=== PATIENT | male | born 1950 | race Caucasian/White ===

== ENCOUNTER 2016-10-23 10:06 | Inpatient (IN) | payer BC, OTHER ==
[~2016-10-23] VITALS: Ht 177.8 cm; Wt 115.8 kg
[2016-10-23] VITALS (76 sets, daily range): BP systolic 77–149; BP diastolic 41–102; PULSE 82–125; TEMP 36.6–39.2; O2SAT 86–100
[~2016-10-23 10:06] MED LIST: ALBU1AER9 INH; ALLO300T2 PO; ASPI81TA28 PO; ATOR-26 PO; CEPH500C2 PO; CLOP1TAB5 PO; GLY/5 PO; INSDGIPEN SQ; INSUINJ7 SC; ISOS30TA3 PO; LCTX PO; LEVO50TA PO; LNX125 PO; LOSA1TAB PO; LSX/80 PO; METO1TAB31 PO; METO2.5T PO; SERT1TAB92 PO; ULT50X PO
[2016-10-23] MEDS ORDERED: ACETAMINOPHEN 325 MG SUPP PR ONE (10:17)
[2016-10-23] MEDS ORDERED: SODIUM CHLORIDE 0.9% 1000ML 1,000 ML IV STA ×2 (10:26→10:41)
[2016-10-23] MEDS ORDERED: SODIUM CHLORIDE 0.9% 1000ML 2,000 ML IV STA (10:26)
[2016-10-23] MEDS ORDERED: DAPTOmycin IV 500 MG in SODIUM CHLORIDE 0.9% 50ML 50 ML IV STA (10:26)
[2016-10-23] MEDS ORDERED: PIPERACILLIN/TAZOBACTAM 4.5 GM/100ML D5W IV STA (10:26)
[2016-10-23] MEDS ORDERED: CLINDAMYCIN IV 900 MG in DEXTROSE 5% ADD-VANTAGE 100ML 100 ML IV ONE (10:45)
--- NOTE | 2016-10-23 10:47 | DIAGNOSTIC IMAGING REPORT ---
CHEST ONE VIEW PORTABLE CLINICAL HISTORY: EVALUATE WEAKNESS dyspnea COMPARISON STUDY: 01/12/2016 FINDINGS: Mild stable cardiomegaly. No focal infiltrates. Mild chronic elevation right hemidiaphragm. Permanent bipolar cardiac pacemaker/defibrillator. IMPRESSION: Mild cardia megaly. Otherwise negative study Electronically signed by: Tyrone Shi M.D. 10/23/2016 10:45 AM Dictated Date/Time: 10/23/2016 10:45 AM
[2016-10-23 10:50] LABS: BASO % 0.1 %; BASO ABS # 0.01 K/uL (0-0.2); COMPLETE YES; HEMATOCRIT 35.3 % (42-52); IG% 0.9 %; LYMPH % 2.2 %; LYMPH ABS # 0.33 K/uL (1.2-3.4); MEAN CELL VOLUME 85.9 fL (80-100); MEAN CORPUSCULAR HEMOGLOBIN 30.2 pg (25-34); MEAN CORPUSCULAR HGB CONC 35.1 g/dl (32-36); MEAN PLATELET VOLUME 9.7 fL (7.4-10.4); MONO % 2.4 %; NEUT % 94.4 %; PLATELET COUNT 190 K/uL (130-400); RED BLOOD COUNT 4.11 M/uL (4.7-6.1); WHITE BLOOD COUNT 15.14 K/uL (4.8-10.8)
--- NOTE | 2016-10-23 10:50 | DIAGNOSTIC IMAGING REPORT ---
RIGHT HAND MIN 3 VIEWS ROUTINE CLINICAL HISTORY: 3rd digit infection, old amp of thumb and 2nd digit Right COMPARISON: CT dated 01/07/2016 DISCUSSION: Operative changes consistent with amputation of the bulk of the distal phalanx of the third finger. Amputation of the phalanges and distal aspects second metacarpal. Partial amputation distal phalanx of the thumb. Mild nonspecific soft tissue edema. No well-defined evidence for osteomyelitis. Potential air containment within the soft tissues adjacent to the distal phalanx right third finger. There is no evidence for soft tissue swelling. IMPRESSION: 1. Postoperative changes as noted. 2. No acute bony abnormality. 3. Soft tissue edematous change primarily about the residual phalanges of the third finger. There appears to be a moderate degree of soft tissue gas. 4. The appearance is consistent with that of a gas-forming infection and/or cellulitis of the third finger. 5. No evidence for osteomyelitis Electronically signed by: Tyrone Shi M.D. 10/23/2016 10:49 AM Dictated Date/Time: 10/23/2016 10:46 AM
[2016-10-23 10:53] LABS: ISTAT CREATININE 1.8 mg/dl (0.6-1.3); ISTAT HEMOGLOBIN 11.9 g/dl (14.0-18.0); ISTAT IONIZED CALCIUM 1.15 mmol/l (1.12-1.32)
[2016-10-23 10:58] LABS: ALT/SGPT 33 U/L (12-78); BLOOD UREA NITROGEN 54 mg/dl (7-18); BUN/CREATININE RATIO 24.5 (10-20); CALCIUM 9.6 mg/dl (8.5-10.1); CARBON DIOXIDE 28 mmol/L (21-32); CHLORIDE 96 mmol/L (98-107); GLUCOSE 153 mg/dl (70-99); MAGNESIUM 2.6 mg/dl (1.8-2.4); POTASSIUM 3.9 mmol/L (3.5-5.1); SODIUM 136 mmol/L (136-145)
[2016-10-23 11:03] LABS: PARTIAL THROMBOPLASTIN RATIO 1.2
[2016-10-23 11:14] LABS: URINE APPEARANCE CLEAR (CLEAR); URINE BILIRUBIN NEG (NEG); URINE COLOR DK YELLOW; URINE NITRITE NEG (NEG); URINE PH 5.5 (4.5-7.5); URINE SPECIFIC GRAVITY 1.019 (1.000-1.030); UROBILINOGEN NEG (NEG)
[2016-10-23 11:18] LABS: MANUAL MICROSCOPIC REQUIRED? NO; REVIEW REQ? YES
[2016-10-23 11:20] LABS: ALKALINE PHOSPHATASE 152 U/L (45-117); AST/SGOT 45 U/L (15-37); CKMB/CK RATIO 0.2 (0-3.0); THYROID STIMULATING HORMONE 0.708 uIu/ml (0.300-4.500)
[2016-10-23] MEDS ORDERED: NVLRPUC SQ (11:35)
[2016-10-23] MEDS ORDERED: LVMI SQ (11:35)
[2016-10-23] MEDS ORDERED: SODIUM CHLORIDE 0.9% 500ML 500 ML IV STA (12:40)
[2016-10-23] MEDS ORDERED: DIGOXIN IV 125 MCG in SYRINGE 9.5 ML IV SCH (13:00)
[2016-10-23] MEDS ORDERED: LNX125 PO (13:04)
[2016-10-23] MEDS ORDERED: SODIUM CHLORIDE 0.9% 1000ML 1,000 ML IV SCH (14:00)
[2016-10-23] MEDS: LACTOBACILLUS ACIDOPHILUS (FLORANEX) TAB PO SCH ×2 (14:00→21:00)
[2016-10-23] MEDS: HEPARIN SOD 5000 UNIT/0.5 ML CARP SQ SCH (14:00)
[2016-10-23] MEDS ORDERED: FENTANYL CITRATE INJ 50 MCG/1 ML 2 ML VIAL ONE (14:27)
[2016-10-23] MEDS ORDERED: MIDAZOLAM 125MG/250ML D5W 250 ML IV SCH (14:28)
[2016-10-23] MEDS ORDERED: PIPERACILL/TAZOBAC CONSULT ACTIVE PRN (14:30)
[2016-10-23] MEDS ORDERED: CLINDAMYCIN CONSULT ACTIVE PRN ×2 (14:30)
[2016-10-23] MEDS ORDERED: PHARMACY GLYCEMIC MGMT CONSULT PRN (14:30)
[2016-10-23] MEDS ORDERED: FENTANYL 1250MCG/250ML NSS 250 ML IV SCH (14:30)
--- NOTE | 2016-10-23 14:35 | HISTORY & PHYSICAL EXAMINATION ---
DATE OF ADMISSION: 10/23/2016 CHIEF COMPLAINT: Severe sepsis, right middle finger necrotic and gangrenous. HISTORY OF PRESENT ILLNESS: This 65-year-old male with past medical history significant for diabetes, nonischemic cardiomyopathy with EF of around 15-20%, status post ICD, history of CAD, history of gout, hyperlipidemia, hematuria, history of adjustment disorder, history of multiple amputations of his fingers, history of rheumatic fever, history of MRSA infection, hypertension, hypothyroidism, history of lung nodule, history of MSSA bacteremia in year 2016 with amputation of the right index finger which had I and D done a couple of times and was on long-term antibiotics, comes today because of confusion and his right middle finger is swollen, erythematous and looks necrotic and gas bubbles seen on x-ray, . The patient was in sepsis with low blood pressure and a temp spike and tachycardia and altered mental status.In the Er fluid bolus, as per sepsis protocol was given and his blood pressure improved. Temperature came down, his tachycardia improved and mental status also improved with subsequent dosing of daptomycin and clindamycin and Zosyn. ER physician talked to the Hand surgeon and is planned for OR today and we are called for admission. The patient will be admitted to ICU for further management and care. Because of his blood pressure is on the borderline, he got another 500 mL of bolus in the ER. We will continue normal saline 100 mL per hour and if blood pressure drops, will start on pressors. The patient currently alert and awake; can tell his name, can tell the name of the hospital, could not tell the date. Denies any chest pain. Denies shortness of breath. Denies headache or dizziness or nausea, denies vomiting, denies abdominal pain. Somewhat rolling in the bed, restless. could not able to reach his . The patient says he lives with his .Later came to hospital and says right middle finger seems to be infected since last few days and yesterday she noticed it turning black and decided to bring him to hospital on Monday but today morning he was confused and running temp and was brought to ER. ALLERGIES: GEMFIBROZIL. PAST MEDICAL HISTORY: As mentioned above. PAST SURGICAL HISTORY: Amputation of the third left toe amputation, amputation of the toe and metatarsal, cardiac angioplasty with LAD 90% lesion, drug-eluting stent placement. Cystoscopy for hematuria, left ventricular pacing electrode and also has left above knee amputation and amputation of multiple fingers. MEDICATIONS: Currently, the patient is on atorvastatin 80 mg p.o. daily, digoxin 125 mcg p.o. daily, , aspirin 81 mg p.o. daily, Levemir 80 units b.i.d., Lasix 80 mg p.o. b.i.d., Diabeta 5 mg p.o. daily with breakfast, Novolin R 3 units before breakfast and 3 units before supper, levothyroxine 50 mcg p.o. daily, Toprol-XL 25 mg p.o. b.i.d., losartan 25 mg p.o. daily, Zocor 100 mg p.o. daily, Imdur 50 mg p.o. daily, allopurinol 300 mg p.o. daily, Metolazone 2.5 mg p.o. weekly, ProAir 2 puffs every 4 hours p.r.n. FAMILY HISTORY: Significant for mother has diabetes. Father has heart disorder. Sister has rheumatic fever. Brother has prostate cancer. SOCIAL HISTORY: Never smoked. No alcohol use. No drug use. Currently lives with his . REVIEW OF SYMPTOMS: As per HPI. could not get rst of ROS as patient is somewhat confused. PHYSICAL EXAMINATION: GENERAL: The patient is obese, somewhat mildly restless. VITAL SIGNS: T-max is 39.6; pulse rate when he came in was 132, currently 105; blood pressure when he came in was 95/53, currently 89/53; oxygen saturation is 98% on nasal cannula. HEENT: No pallor, no icterus. NECK: No JVD, no neck masses. CARDIOVASCULAR: S1, S2 heard. Tachycardia. No murmurs, regular. RESPIRATORY SYSTEM: Normal AP diameter. No accessory muscle use. No wheezing, no crackles. ABDOMEN: Soft, bowel sounds present. No distention. Nontender. CENTRAL NERVOUS SYSTEM: Alert and awake, oriented x2. Moves extremities. Somewhat confused. Nonfocal. EXTREMITIES: Status post left above knee amputation; right middle finger is erythematous, swollen and necrotic. LABORATORIES: WBC 15, hemoglobin 12.4, hematocrit 35, platelets 190. Sodium 136, potassium 3.9, chloride 96, bicarbonate 28, BUN 54, creatinine 2.2, serum glucose 153. point of care lactic acid is 3.18 Ionized calcium 1.15, magnesium 2.6, total bilirubin 1.2, direct bilirubin 0.4, AST 45, ALT 43, alkaline phosphatase 152, total creatine kinase 464. Troponin 1 0.25, lipase 64. TSH 0.7. PT 11, INR 1, PTT 31. Urinalysis positive for mild occult blood. Influenza negative. IMAGING DATA: hand x-ray looks soft tissue edematous change primarily about the residual phalanges of the third finger.There appears moderate degree of soft tissue gas. The appearance is consistent with a gas-forming infection or cellulitis of third finger, no evidence of osteomyelitis. Chest x-ray - cardiomegaly, no acute findings. EKG: EKG shows ventricular-paced rhythm with occasional SVCs with PVCs at the rate of 132. ASSESSMENT AND PLAN: This 65-year-old male presents with severe sepsis 1. Severe sepsis from the necrotic and possible gas gangrenous, right third finger. Point of care lactic acid was 3.18. Received aggressive fluids in the ER. Needs to monitor for volume overload as patient has on last echo ejection fraction of around 15-20%. Currently, 3 peripheral lines placed, blood pressure is holding in high 80s. Will follow the serial lactic acids. Received IV Zosyn, IV daptomycin and IV clindamycin; will continue the same antibiotics. Hand surgeon notified and planned for OR today. Critical care notified. Plan for central lines, as per critical care. Will continue intravenous fluids and monitor his volume status. May need pressors. We will follow the cultures. ID consult for a.m. and close monitoring in the ICU. 2. History of nonischemic cardiomyopathy, ejection fraction around 15-20%. He has mild elevation of troponin secondary most likely to demand ischemia. Holding his blood pressure medications and Lasix because of sepsis. We will monitor for volume overload. We will also get an echocardiogram to see his latest ejection fraction. 3. Acute renal failure, baseline creatinine is around 1.3-1.4, presents with creatinine of 2.2, secondary to sepsis. Holding the Lasix and losartan. Fluids as above. We will monitor his renal function. 4. Mild elevation of troponin, most likely secondary to demand ischemia. We will follow the trend and follow echocardiogram. 5. History of coronary artery disease status post stent. Continue aspirin. Holding the statin as patient is on daptomycin and holding the blood pressure medication secondary to hypotension from sepsis. We will follow serial cardiac enzymes and echocardiogram. The patient is asymptomatic. 6. History of diabetes, the patient is currently n.p.o. We will cut back on Levemir to [address] on insulin-sliding scale and may need insulin drip. We will consult pharmacy for glycemic management. 7. History of hyperlipidemia. Holding statin as patient on daptomycin. 8. History of gout, continue allopurinol. 9. History of HTN .Holding the blood pressure medications secondary to sepsis. 10. Hypothyroidism IV Synthroid for now. 11. Deep venous thrombosis prophylaxis, sequential compression devices and heparin subQ. DISPOSITION: Close monitor in the ICU. Level 1 full code. Total critical care time around 40-45 minutes. MTDD
[2016-10-23] MEDS ORDERED: FENTANYL CITRATE INJ 50 MCG/1 ML 2 ML VIAL IV ONE (14:45)
[2016-10-23] MEDS ORDERED: RAPID SEQUENCE INDUCTION BAG ONE (14:47)
[2016-10-23] MEDS ORDERED: VECURONIUM BROMIDE 10 MG VIAL IV ONE (15:00)
[2016-10-23] MEDS ORDERED: ETOMIDATE 2 MG/ML 20 ML VIAL IV ONE (15:00)
--- NOTE | 2016-10-23 15:00 | Pharmacy Progress Note ---
Glycemic Control Intl Consult Date of Service Oct 23, 2016. Scope Glycemic Pharmacist consulted for glycemic control and to write orders per [facility] inpatient glycemic control protocol Objective Weight (Kilograms): 122.400 Accuchecks BSG (last 24hrs): Test 10/23/16 10:30 Random Glucose 153 mg/dl (70-99) Laboratory Data (last 24hrs) Test 10/23/16 10:30 10/23/16 10:38 Anion Gap 12.0 mmol/L 17.0 mmol/L BUN/Creatinine Ratio 24.5 Blood Urea Nitrogen 54 mg/dl Creatinine 2.20 mg/dl Potassium Level 3.9 mmol/L Sodium Level 136 mmol/L White Blood Count 15.14 K/uL Red Blood Count 4.11 M/uL Hemoglobin 12.4 g/dL Hematocrit 35.3 % Mean Corpuscular Volume 85.9 fL Mean Corpuscular Hemoglobin 30.2 pg Mean Corpuscular Hemoglobin Concent 35.1 g/dl Platelet Count 190 K/uL Mean Platelet Volume 9.7 fL Neutrophils (%) (Auto) 94.4 % Lymphocytes (%) (Auto) 2.2 % Monocytes (%) (Auto) 2.4 % Eosinophils (%) (Auto) 0.0 % Basophils (%) (Auto) 0.1 % Neutrophils # (Auto) 14.29 K/uL Lymphocytes # (Auto) 0.33 K/uL Monocytes # (Auto) 0.37 K/uL Eosinophils # (Auto) 0.00 K/uL Basophils # (Auto) 0.01 K/uL HbA1c Pending for 10/24/16 Recent Pertinent Medications Outpatient Anti-diabetic Regimen: * Levemir 80 units SC BID * Novolin R 3 units SC BID * Glyburide 5 mg po daily Risk Factors for Insulin Resistance: * Infection: Septic shock 2nd finger cellulitis * Recent Surgery: POD 0 - scheduled for finger amputation per RN * Diet: NPO * Mechanical Ventilation: Currently being intubated per railroad track mechanic & Plan ASSESSMENT: * ADA & AACE recommend a goal blood sugar range 140-180 mg/dl for the majority of critically ill & non-critically ill patients. However, more stringent targets may be selected in individual cases. 10/23/16 * 65 yo M with significant stressors admitted to ICU for septic shock 2nd finger cellulitis. Per RN, finger is gangrenous and patient is currently being intubated on his way to the OR for amputation. * RN unsure if patient took AM dose of Levemir * Patient's outpatient regimen is heavily weighted towards basal which is inappropriate for an inpatient, especially when he is currently NPO. However, RN unsure if patient took AM dose of Levemir today. * Will therefore order Levemir based on BSG * Will order BSG checks and Novolog q4h PLAN FOR INPATIENT GLYCEMIC CONTROL: * Holding outpatient oral diabetes medications * Basal insulin with Levemir SQ BID based on BSG 20 units for BSG < 120 mg/dL 40 units for BSG 120-199 mg/dL 50 units for BSG 200 mg/dL or greater * Correctional Insulin with NOVOLOG per scale Q4hrs while NPO * Goal Range: Low 140 mg/dL - High 180 mg/dL * Correction Factor: 10 mg/dL/unit * Nutritional / Prandial insulin per carb ratio of 1 unit per 3 grams CHO consumed * Please note that the plan above was derived based on current level of insulin resistance and hospital stress. These recommendations are appropriate for inpatient admission only. Plan of care upon discharge will need to be reassessed to avoid potential outpatient hypo/hyperglycemia. Thank you.
--- NOTE | 2016-10-23 15:26 | ORTHOPEDIC CONSULTATION ---
DATE OF CONSULTATION: 10/23/2016 Special attention to right middle finger infection. HISTORY OF PRESENT ILLNESS: This is a 65-year-old male who is well known to me from previous index finger ray amputation and partial thumb amputation on the right. He presents with increased pain and swelling, and infection in the middle finger. He presents with mental status changes and was brought emergently to [facility] via EMS. Family is not available despite several attempts to contact Them. Current vital signs; temperature 37.7, pulse 110, blood pressure 117/73. Prior blood pressure 93/58, prior temperature 38.3. I spoke with family regarding informed consent for finger amputation. Plan for surgical intervention shortly. PHYSICAL EXAMINATION: The patient is disoriented. He understands he is at the hospital but cannot tell me which hospital. He is able to answer questions, but does exhibit confusion. Right middle finger examination does show moderate to significant swelling at the middle finger. He has necrosis at the tip of the finger and gross infection seen in the middle finger with erythema. He has bullae as well over the middle finger up to the level of the PIP joint. I do not see significant - streaking erythema but the finger is clearly clinically infected at least to the level of the PIP joint. RADIOGRAPHIC: Three views of the hand do show osteomyelitis at the tip of the middle finger, previous ray amputation is noted. Soft tissue edema is seen in the middle phalanx. Soft tissue gas is noted in the finger. ASSESSMENT: 1. Right middle finger diabetic infection. 2. Sepsis. PLAN: At this point in time, patient exhibits hemodynamic instability with tachycardia, hypotension and fever. He is being emergently admitted to the ICU for hemodynamic stabilization, arterial line placement and intubation. Once he stabilized, we will take him emergently to the operating room for a finger amputation, irrigation and debridement. May need to amputate to the level of the PIP versus at the MP joint with possible definitive procedure being ray amputation may also place a VAC depending on the quality of the tissues. Plan for surgical intervention emergently.
[2016-10-23] MEDS ORDERED: DAPTOMYCIN CONSULT ACTIVE PRN ×2 (15:30)
[2016-10-23] MEDS: INSULIN ASPART 100 UNITS/ML 3 ML PEN SC SCH ×2 (16:00→20:00)
[2016-10-23] MEDS: PIPERACILL/TAZOBAC IV 4.5 GM in DEXTROSE 5% 100ML 100 ML IV SCH (16:04)
--- NOTE | 2016-10-23 16:17 | DIAGNOSTIC IMAGING REPORT ---
CHEST ONE VIEW PORTABLE CLINICAL HISTORY: intubation, central line COMPARISON STUDY: 10/23/2016 FINDINGS: Central catheter placed in the superior vena cava. Endotracheal tube 3 cm above the aga. Findings of congestive failure radiographically. Suboptimal images due to patient respiratory and somatic motion. IMPRESSION: 1. Endotracheal tube 3 cm above the aga. 2. Central catheters in the superior vena cava. 3. Components of congestive failure. 4. No evidence pneumothorax. Electronically signed by: Tyrone Shi M.D. 10/23/2016 4:16 PM Dictated Date/Time: 10/23/2016 4:13 PM
[2016-10-23] MEDS ORDERED: DEXTROSE 50% 50 ML SYR ONE (16:18)
[2016-10-23] MEDS ORDERED: BUPIVACAINE 0.5 % 5 MG/1 ML MPF 30ML VIAL ONE (16:25)
--- NOTE | 2016-10-23 16:54 | Progress Note ---
Progress Note Post Crystalloid Evaluation Date: Oct 23, 2016 Time: 16:45 Physical Exam Vital Signs: Vital Signs Date Time Temp Pulse Resp B/P Pulse Ox O2 Delivery O2 Flow Rate FiO2 10/23/16 13:40 37.7 110 21 117/63 98 Nasal Cannula 2.0 Lungs: lungs clear, normal breath sounds, no respiratory distress Heart: regular rate, rhythm, normal peripheral pulses Peripheral Pulse: Normal Skin: Unremarkable Assessment & Plan Presence of: Severe Sepsis Severe sepsis Necrotic Right middle finger received aggressive initial bolus of fluids and currently on ns@100ml/hr on iv Zosyn, clindamycin and daptomycin s/p intubation s/p central line plan for OR today lactic acid on presentation 3.18 repeat lactic acid pending close monitor in the icu
[2016-10-23] MEDS ORDERED: NURSING VERBAL MED ORDER ONE (17:15)
[2016-10-23] MEDS: VASOPRESSIN INJ 50 UNITS in SODIUM CHLORIDE 0.9% 500ML 500 ML IV SCH (17:38)
[2016-10-23] MEDS ORDERED: DAPTOmycin IV 250 MG in SODIUM CHLORIDE 0.9% 50ML 50 ML IV ONE (18:00)
[2016-10-23] MEDS ORDERED: BACITRACIN 50000 UNIT VIAL IR ONE (18:46)
--- NOTE | 2016-10-23 19:21 | EMERGENCY ROOM VISIT NOTE ---
History Report prepared by Cuongibmerry: Silvina Boggs Under the Supervision of: Dr. Kpi Gupta M.D. First contact with patient: 10:09 Stated Complaint: ALTERED MENTAL STATUS History of Present Illness The patient is a 65 year old male who presents to the Emergency Room with complaints of worsening altered mental status. He was brought to the ED via EMS. EMS reports the patient has a necrotic right second finger, and is scheduled to have the finger amputated next week. The patient became very confused this morning, so his called an ambulance. He is not able to answer all questions due to his current mental state. The patient has an extensive past medical history including diabetes, hypertension, CHF, CAD, MRSA infection, gout and diabetic neuropathy. History is limited secondary to mental status. Source of History: patient, EMS History Limited By: AMS Onset: [employer] Position: other (global) Timing: worsening Review of Systems Limited secondary to mental status. Past Medical & Surgical Medical Problems: (1) Adjustment disorder with depressed mood (2) Amputation of right index finger (3) Biventricular ICD (implantable cardioverter-defibrillator) in place (4) CAD (coronary artery disease) (5) CHF (congestive heart failure) (6) Chronic systolic CHF (congestive heart failure) (7) Diabetic retinopathy (8) DM type 2 (diabetes mellitus, type 2) (9) Dyslipidemia (10) Gout (11) H/O hematuria (12) H/O: rheumatic fever (13) History of MRSA infection (14) HTN (hypertension) (15) Hypothyroidism (16) Lung nodule (17) MSSA bacteremia (18) Neuropathy (19) Nonischemic cardiomyopathy (20) Septic shock (21) Wound dehiscence Surgical Problems: (1) H/O amputation of lesser toe (2) History of amputation of finger of left hand (3) History of implantable cardioverter-defibrillator (ICD) placement (4) Hx of BKA (5) S/P cardiac cath (6) S/P coronary artery stent placement Family History Diabetes mellitus MOTHER FH: CAD (coronary artery disease) FATHER Social History Smoking Status: Never Smoker Drug Use: none Marital Status: Housing Status: lives with family Occupation Status: disabled Current/Historical Medications Scheduled Allopurinol (Zyloprim), 300 MG PO DAILY Aspirin (Aspirin Ec), 81 MG PO DAILY Atorvastatin (Lipitor), 80 MG PO DAILY Digoxin (Digoxin), 0.125 MG PO DAILY Furosemide (Lasix), 1 TAB PO BID Glyburide (Diabeta), 5 MG PO DAILY Insulin Detemir (Levemir), 80 UNITS SQ BID Insulin Human Regular (Novolin R), 3 UNITS SQ AMPM Isosorbide Mononitrate Ext Rel (Imdur Ext Rel), 15 MG PO DAILY Lactobacillus Acidophilus (Lactinex), 1 TAB PO TID Levothyroxine Sodium (Synthroid), 50 MCG PO DAILY Losartan Potassium (Cozaar), 25 MG PO DAILY Metolazone (Zaroxolyn), 2.5 MG PO WK Metoprolol Succinate (Toprol Xl), 25 MG PO BID Sertraline HCl (Sertraline HCl), 100 MG PO DAILY Allergies Coded Allergies: Gemfibrozil (Verified Allergy, Unknown, 10/23/16) Physical Exam Vital Signs Date Time Temp Pulse Resp B/P Pulse Ox O2 Delivery O2 Flow Rate FiO2 10/23/16 12:38 105 98 10/23/16 12:33 79/53 10/23/16 12:29 77/41 10/23/16 12:21 108 98 10/23/16 12:14 98/55 10/23/16 12:06 109 98 10/23/16 12:01 109 100 10/23/16 11:59 103/63 10/23/16 11:47 97/66 10/23/16 11:46 108 98/ 99 10/23/16 11:43 38.5 10/23/16 11:41 105 100 10/23/16 11:32 98 Nasal Cannula 2.0 10/23/16 11:29 111/65 10/23/16 11:26 109 96 10/23/16 11:21 108 97 10/23/16 11:13 109/55 10/23/16 11:06 117 96 10/23/16 10:58 124/57 10/23/16 10:55 123 10/23/16 10:54 39.4 10/23/16 10:51 114 98 10/23/16 10:46 115/56 10/23/16 10:35 96 Room Air 10/23/16 10:35 96 Room Air 10/23/16 10:33 101/48 10/23/16 10:10 39.6 132 20 95/53 96 Room Air Physical Exam GENERAL: Awake, alert, uncomfortable-appearing, in no distress HENT: Normocephalic, atraumatic. Oropharynx unremarkable. EYES: Normal conjunctiva. Sclera non-icteric. NECK: Supple. No nuchal rigidity. FROM. No JVD. RESPIRATORY: Clear to auscultation. CARDIAC: Tachycardic heart rate, normal rhythm. Extremities warm and well perfused. Pulses equal. ABDOMEN: Soft, non-distended. No tenderness to palpation. No rebound or guarding. No masses. RECTAL: Deferred. MUSCULOSKELETAL: Chest examination reveals no tenderness. The back is symmetrical on inspection without obvious abnormality. There is no CVA tenderness to palpation. No joint edema. LOWER EXTREMITIES: BKA left leg. No edema. No discoloration. UPPER EXTREMITIES: Right hand has prior amputation to second digit, partial amputation to thumb. Large necrotic wound on 3rd digit, with an obvious fluid collection visible on the surface. NEURO: Normal sensorium. No sensory or motor deficits noted. SKIN: No rash or jaundice noted. Medical Decision & Procedures ER Provider Diagnostic Interpretation: These X-Rays were reviewed and interpreted by myself and the radiologist. RIGHT HAND MIN 3 VIEWS ROUTINE CLINICAL HISTORY: 3rd digit infection, old amp of thumb and 2nd digit Right COMPARISON: CT dated 01/07/2016 DISCUSSION: Operative changes consistent with amputation of the bulk of the distal phalanx of the third finger. Amputation of the phalanges and distal aspects second metacarpal. Partial amputation distal phalanx of the thumb. Mild nonspecific soft tissue edema. No well-defined evidence for osteomyelitis. Potential air containment within the soft tissues adjacent to the distal phalanx right third finger. There is no evidence for soft tissue swelling. IMPRESSION: 1. Postoperative changes as noted. 2. No acute bony abnormality. 3. Soft tissue edematous change primarily about the residual phalanges of the third finger. There appears to be a moderate degree of soft tissue gas. 4. The appearance is consistent with that of a gas-forming infection and/or cellulitis of the third finger. 5. No evidence for osteomyelitis Electronically signed by: Tyrone Shi M.D. 10/23/2016 10:49 AM CHEST ONE VIEW PORTABLE CLINICAL HISTORY: EVALUATE WEAKNESS dyspnea COMPARISON STUDY: 01/12/2016 FINDINGS: Mild stable cardiomegaly. No focal infiltrates. Mild chronic elevation right hemidiaphragm. Permanent bipolar cardiac pacemaker/defibrillator. IMPRESSION: Mild cardia megaly. Otherwise negative study Electronically signed by: Tyrone Shi M.D. 10/23/2016 10:45 AM Laboratory Results 10/23/16 10:30 Red Blood Count 4.11, Mean Corpuscular Volume 85.9, Mean Corpuscular Hemoglobin 30.2, Mean Corpuscular Hemoglobin Concent 35.1, Mean Platelet Volume 9.7, Neutrophils (%) (Auto) 94.4, Lymphocytes (%) (Auto) 2.2, Monocytes (%) (Auto) 2.4, Eosinophils (%) (Auto) 0.0, Basophils (%) (Auto) 0.1, Neutrophils # (Auto) 14.29, Lymphocytes # (Auto) 0.33, Monocytes # (Auto) 0.37, Eosinophils # (Auto) 0.00, Basophils # (Auto) 0.01 10/23/16 10:30 Test 10/23/16 10:30 10/23/16 10:34 10/23/16 10:38 10/23/16 10:40 White Blood Count 15.14 K/uL (4.8-10.8) Red Blood Count 4.11 M/uL (4.7-6.1) Hemoglobin 12.4 g/dL (14.0-18.0) Hematocrit 35.3 % (42-52) Mean Corpuscular Volume 85.9 fL (80-100) Mean Corpuscular Hemoglobin 30.2 pg (25-34) Mean Corpuscular Hemoglobin Concent 35.1 g/dl (32-36) Platelet Count 190 K/uL (130-400) Mean Platelet Volume 9.7 fL (7.4-10.4) Neutrophils (%) (Auto) 94.4 % Lymphocytes (%) (Auto) 2.2 % Monocytes (%) (Auto) 2.4 % Eosinophils (%) (Auto) 0.0 % Basophils (%) (Auto) 0.1 % Neutrophils # (Auto) 14.29 K/uL (1.4-6.5) Lymphocytes # (Auto) 0.33 K/uL (1.2-3.4) Monocytes # (Auto) 0.37 K/uL (0.11-0.59) Eosinophils # (Auto) 0.00 K/uL (0-0.5) Basophils # (Auto) 0.01 K/uL (0-0.2) RDW Standard Deviation 43.0 fL (36.4-46.3) RDW Coefficient of Variation 13.6 % (11.5-14.5) Immature Granulocyte % (Auto) 0.9 % Immature Granulocyte # (Auto) 0.14 K/uL (0.00-0.02) Prothrombin Time 11.0 SECONDS (9.0-12.0) Prothromb Time International Ratio 1.0 (0.9-1.1) Activated Partial Thromboplast Time 31.0 SECONDS (21.0-31.0) Partial Thromboplastin Ratio 1.2 Estimated GFR () 35.1 Estimated GFR (Non- 30.3 BUN/Creatinine Ratio 24.5 (10-20) Calcium Level 9.6 mg/dl (8.5-10.1) Magnesium Level 2.6 mg/dl (1.8-2.4) Total Bilirubin 1.2 mg/dl (0.2-1) Direct Bilirubin 0.4 mg/dl (0-0.2) Aspartate Amino Transf (AST/SGOT) 45 U/L (15-37) Alanine Aminotransferase (ALT/SGPT) 33 U/L (12-78) Alkaline Phosphatase 152 U/L (45-117) Total Creatine Kinase 464 U/L (39-308) Creatine Kinase MB 1.0 ng/ml (0.5-3.6) Creatine Kinase MB Ratio 0.2 (0-3.0) Troponin I 0.259 ng/ml (0-0.045) Total Protein 7.2 gm/dl (6.4-8.2) Albumin 2.7 gm/dl (3.4-5.0) Lipase 64 U/L (73-393) Thyroid Stimulating Hormone (TSH) 0.708 uIu/ml (0.300-4.500) Bedside Lactic Acid Venous 3.18 mmol/L (0.90-1.70) Bedside Hemoglobin 11.9 g/dl (14.0-18.0) Bedside Hematocrit 35 % (42-52) Bedside Sodium 134 mEq/L (135-144) Bedside Potassium 4.0 mEq/L (3.3-5.0) Bedside Chloride 93 mEq/L (101-112) Bedside Total CO2 29 mEq/l (24-31) Anion Gap 17.0 mmol/L (16-25) Bedside Blood Urea Nitrogen 52 mg/dl (7-18) Bedside Creatinine 1.8 mg/dl (0.6-1.3) Bedside Glucose (other) 158 mg/dl (70-99) Bedside Ionized Calcium (Tara) 1.15 mmol/l (1.12-1.32) Influenza Type A Antigen Neg for Influ A (NEG) Influenza Type B Antigen Neg for Influ B (NEG) Test 10/23/16 11:00 Urine Color DK YELLOW Urine Appearance CLEAR (CLEAR) Urine pH 5.5 (4.5-7.5) Urine Specific [place] 1.019 (1.000-1.030) Urine Protein 2+ (NEG) Urine Glucose (UA) 1+ (NEG) Urine Ketones NEG (NEG) Urine Occult Blood 2+ (NEG) Urine Nitrite NEG (NEG) Urine Bilirubin NEG (NEG) Urine Urobilinogen NEG (NEG) Urine Leukocyte Esterase NEG (NEG) Urine WBC (Auto) 1-5 /hpf (0-5) Urine RBC (Auto) 0-4 /hpf (0-4) Urine Hyaline Casts (Auto) 1-5 /lpf (0-5) Urine Epithelial Cells (Auto) 10-20 /lpf (0-5) Urine Bacteria (Auto) NEG (NEG) Urine Yeast (Auto) (NONE PRSENT) Laboratory results reviewed by me Medications Administered Medications (Trade) Dose Ordered Sig/Ifeanyi Route Start Time Stop Time Status Last Admin Dose Admin Acetaminophen 975 mg 975 mg STK-MED ONCE AR 10/23/16 10:17 10/23/16 10:19 DC 10/23/16 10:54 975 MG Sodium Chloride 2,000 ml @ 999 mls/hr Q2H1M STAT IV 10/23/16 10:26 10/23/16 13:21 DC 10/23/16 10:52 999 MLS/HR Sodium Chloride 1,000 ml @ 250 mls/hr Q4H STAT IV 10/23/16 10:26 10/23/16 13:21 DC 10/23/16 10:52 250 MLS/HR Daptomycin/Sodium Chloride (Cubicin IV/Nss 50ml) 60 ml @ 100 mls/hr NOW STAT IV 10/23/16 10:26 10/23/16 11:01 DC 10/23/16 10:50 100 MLS/HR Piperacillin Sod/ Tazobactam Sod 4.5 gm 4.5 gm NOW STAT IV 10/23/16 10:26 10/23/16 10:30 DC 10/23/16 11:03 4.5 GM Clindamycin Phosphate 900 mg/ Dextrose 106 ml @ 100 mls/hr ONE ONCE IV 10/23/16 10:45 10/23/16 11:48 DC 10/23/16 11:21 100 MLS/HR Sodium Chloride 1,000 ml @ 999 mls/hr Q1H1M STAT IV 10/23/16 10:41 10/23/16 13:21 DC 10/23/16 10:51 999 MLS/HR Sodium Chloride (Nss 500ml) 500 ml @ 999 mls/hr Q31M STAT IV 10/23/16 12:40 10/23/16 13:21 DC 10/23/16 12:34 999 MLS/HR ECG Indication: altered mental status Rate (beats per minute): 132 Rhythm: sinus tachycardia (sinus tachycardia with occasional paced rhythm) Findings: Q waves (Inferior), other (non-specific atrioventricular conduction delay) ED Course 1014: The patient was evaluated in room B1. A complete history and physical exam was performed. 1017: Acetaminophen 975 mg AR. 1026: Zosyn 4.5 gm IV, Daptomycin 500 mg/NSS 60 ml @ 100 mls/hr IV, NSS 1000 ml @ 250 mls/hr IV, NSS 2000 ml @ 999 mls/hr IV. 1035: Nursing informed me of the patient's i-stat lab results. His Creatinine is mildly elevated, but his electrolytes are otherwise unremarkable. His Lactate is 3.1. 1041: NSS 1000 ml @ 999 mls/hr IV. 1045: Clindamycin Phosphate 900 mg/Dextrose 106 ml @ 100 mls/hr IV. 1055: I reevaluated the patient. His mental status and blood pressure are both improved. He is currently getting fluids and antibiotics. 1129: I discussed the patients case with CECI Diop, [facility] Hospitalist. The patient will be further evaluated. 1133: I discussed the patients case with Dr. Brink, [facility]. He will try to notify Dr. Henriquez and the patient will be further evaluated. 1145: I reevaluated the patient. He is resting comfortably. 1214: CECI Diop, [facility] Hospitalist, informed me Dr. Brink was unable to get in contact with Dr. Henriquez of [facility] and he himself does not see fingers. He is recommending the patient be transferred to a tertiary care center. 1224: I discussed the patient's case with Dr. Henriquez, [facility]. He is here in the hospital and will take the patient to the OR. 1226: I informed CECI Doip, [facility], that I spoke with Dr. Henriquez and the patient will be further evaluated by Orthopedics. 1240: NSS 500 ml @ 999 mls/hr IV. 1247: I discussed the patients case with Dr. Montelongo, [facility] Critical Care. The patient will be further evaluated. 1300: I reevaluated the patient. He is appears to be more comfortable. 1335: Dr. Montelongo called me back. He is wondering if the patients family has been contacted yet and I informed him nursing has tried 3 times, with no success. 1345: I reevaluated the patient. He is more lucid and resting comfortably. Medical Decision Triage Nursing notes reviewed. The patient's presentation and history were concerning for altered mental status and possible infection. Etiologies such as sepsis, cellulitis, metabolic, infection, hypo/hyperglycemia , electrolyte abnormalities, cardiac sources, intracerebral event, toxicologic, neurologic, as well as others were entertained. The patient was evaluated. He was seen promptly on arrival. He was hypotensive and tachycardic. He was altered. He was very febrile. He was given Tylenol, IV fluids. Cultures were performed. The patient has significant elevation of his lactate. He has a leukocytosis concerning for infection as well. His troponin was positive as well as his renal function was diminished. The patient had a negative urinalysis and flu test. His LFTs were minimally elevated. He was treated with broad-spectrum antibiotics including daptomycin, Zosyn, and clindamycin due to the fact that he had gas formation in the hand wound. Chest imaging was unremarkable. The patient was treated with initially 3000 mL of normal saline bolus. He was given an additional 500 mL. His blood pressure was marginal but his mental status improved significantly. He denied any significant pain. Consultation was made with internal medicine. I also consulted with orthopedics. After discussing the case with the hospitalist and Dr. Brink of orthopedics I was able to get in touch with Dr. Catracho Henriquez of [facility] orthopedic hand surgery. He has seen the patient in the past. He recommended operative treatment for him. In order to optimize the patient for this he will need further resuscitation. Consultation was made with critical care medicine. The patient was evaluated in the Emergency Room. He was taken to the ICU for further management. The chart was completed utilizing [employer] voice recognition software. Grammatical errors, random word insertions, pronoun errors, and incomplete sentences are an occasional consequence of this system due to software limitations, ambient noise, and hardware issues. Any formal questions or concerns about the content, text, or information contained within the body of this dictation should be directly addressed to the physician for clarification. Consults Time Called: 1125 [facility] Returned Call: [phone] I discussed the patients case [facility]. The patient will be further evaluated. Additional Consults: Time Called: 1130 Consulted Physician: Dr. Brink [facility] Returned Call: [phone] Additional Comments: I discussed the patients case with Dr. Brink [facility]. He will try to notify Dr. Henriquez and the patient will be further evaluated. Time Called: 1220 Consulted Physician: Dr. Henriquez [facility] Returned Call: [phone] Additional Comments: I discussed the patient's case with Dr. Henriquez, [facility]. He is here in the hospital and will take the patient to the OR. Impression Primary Impression: Severe sepsis Additional Impression: Necrotic wound of right hand Critical Care I have personally spent greater than 75 minutes of critical care time in the direct management of this patient. This includes bedside care, interpretation of diagnostic studies, and testing, discussion with consultants, patient, and family members, and other required patient management activities. This 75 minutes is in excess of all separately billable procedures. Scribe Attestation The scribe's documentation has been prepared under my direction and personally reviewed by me in its entirety. I confirm that the note above accurately reflects all work, treatment, procedures, and medical decision making performed by me. Departure Information Dispostion Being Evaluated By Surgeon Prescriptions Digoxin (Digoxin) 0.125 Mg Tab 0.125 MG PO DAILY for 30 Days, #30 TAB 2 Refills Prov: Francois Aviles MD 10/23/16 Referrals No Doctor, Assigned (PCP) Problem Qualifiers
[2016-10-23] MEDS ORDERED: ROCURONIUM BROMIDE 10 MG/ML 5 ML VIAL ONE (19:23)
--- NOTE | 2016-10-23 19:47 | Anesthesiology Progress Note ---
Anesthesia Post Op Note Date & Time Oct 23, 2016 at 19:36 Vital Signs Pain Intensity: 0.0 Vital Signs Past 12 Hours Date Time Temp Pulse Resp B/P Pulse Ox O2 Delivery O2 Flow Rate FiO2 10/23/16 17:55 60 10/23/16 16:30 94 18 81/48 98 Mechanical Ventilator 80 10/23/16 16:00 60 10/23/16 16:00 106 18 116/61 97 Mechanical Ventilator 80 10/23/16 16:00 98 Mechanical Ventilator 80 10/23/16 15:45 103 18 96/50 97 Mechanical Ventilator 100 10/23/16 15:15 95 18 91/48 92 Mechanical Ventilator 100 10/23/16 15:05 87 22 77/41 86 10/23/16 15:00 94 11 123/102 93 Nasal Cannula 6.0 10/23/16 14:30 50 10/23/16 14:00 93 20 93 Nasal Cannula 6.0 10/23/16 13:40 37.7 110 21 117/63 98 Nasal Cannula 2.0 10/23/16 13:40 37.7 93 17 125/59 98 Nasal Cannula 6.0 10/23/16 13:23 106 97 10/23/16 13:13 93/58 10/23/16 13:10 100 Nasal Cannula 2.0 10/23/16 13:09 38.3 10/23/16 13:08 105 100 10/23/16 13:03 105 100 10/23/16 12:58 99/53 10/23/16 12:48 105 99 10/23/16 12:43 89/53 10/23/16 12:38 105 98 10/23/16 12:33 79/53 10/23/16 12:29 77/41 10/23/16 12:21 108 98 10/23/16 12:14 98/55 10/23/16 12:06 109 98 10/23/16 12:01 109 100 10/23/16 11:59 103/63 10/23/16 11:47 97/66 10/23/16 11:46 108 98/ 99 10/23/16 11:43 38.5 10/23/16 11:41 105 100 10/23/16 11:32 98 Nasal Cannula 2.0 10/23/16 11:29 111/65 10/23/16 11:26 109 96 10/23/16 11:21 108 97 10/23/16 11:13 109/55 10/23/16 11:06 117 96 10/23/16 10:58 124/57 10/23/16 10:55 123 10/23/16 10:54 39.4 10/23/16 10:51 114 98 10/23/16 10:46 115/56 10/23/16 10:35 96 Room Air 10/23/16 10:35 96 Room Air 10/23/16 10:33 101/48 10/23/16 10:10 39.6 132 20 95/53 96 Room Air Notes Mental Status: alert / awake / arousable, participated in evaluation Pt Amnestic to Procedure: Yes Nausea / Vomiting: adequately controlled Pain: adequately controlled Airway Patency, RR, SpO2: stable & adequate BP & HR: stable & adequate, see Notes Hydration State: stable & adequate Anesthetic Complications: no major complications apparent Pt developed septic shock attributed to gangrenous right 3rd finger, PMH is extensive including DM, HTN, CAD, PVD, hypothyroidism. Has had multiple amputations due to arterial disease. Prior to surgery, pt had been intubated in ICU. Was on vasopressin infusion for BP support and midazolam/fentanyl infusion for sedation. These meds were continued and pt was transported to OR and anesthetized with inhalational agent. There were no intraoperative complications. Pt was returned to ICU post op in guarded condition. Placed on ventilator as preoperatively. Report given to RN and events discussed with ICU physician who agreed to resume mgt of case.
[2016-10-23] MEDS: CLINDAMYCIN IV 600 MG in DEXTROSE 5% ADD-VANTAGE 50ML 50 ML IV SCH (20:31)
[2016-10-23 20:45] LABS: CKMB/CK RATIO 0.5 (0-3.0)
--- NOTE | 2016-10-23 20:53 | Procedure Note ---
Procedure Note Procedure Date: 10/23/2016 Procedure: Endotracheal intubation Pre-procedure Diagnosis: Operative management of gangrenous finger in the setting of septic shock Post-procedure Diagnosis: same as above Prior to Procedure: Informed Consent: verbal telephone consent was obtained from the patient's Nusrat Koroma Attending Staff: Farrukh Montelongo DO Indications: Elective intubation secondary to operative management, ability to facilitate additional procedures The identity of the patient was confirmed and a bedside time out was performed. Anesthesia: 200 g fentanyl, 26 mg etomidate Description of Procedure: The patient was prepared in the usual fashion. A laryngoscope Parada 2 was used , I was unable to visualize the epiglottis and converted to a Mac 3. At this point I was only able to obtain a grade 3 view with bimanual laryngoscopy. A 7.0 Fr endotrachial tube was placed blindly to 21 cm at the teeth. The endotracheal tube was not noted to pass through the vocal cords. Chest rise was bilateral. Bilateral breath sounds were heard without air sounds in the abdomen. Mist was noted in the endotrachial tube. End-tidal CO2 measurement was positive. Chest x-ray shows proper endotrachial tube placement. Complications: During the procedure the handle malfunctioned after initially being checked and was working properly. Findings: not applicable Specimens: not applicable Estimated blood loss: Zero
--- NOTE | 2016-10-23 20:58 | Procedure Note ---
Procedure Note Procedure Date Oct 23, 2016. Procedure Description Procedure Name: Left axillary arterial line Procedure time out: side/site verified, patient ID confirmed, correct procedure Consent obtained: verbal (consents obtained by telephone with the patient's Nusrat) Time of procedure: 16:00 Performed by: attending Indications: diagnostic Contraindications: other (peripheral vascular disease) Description: The left axilla was chosen as the amputation was on the right upper extremity. The left axilla was prepped with ChloraPrep hexedine, and draped in a sterile fashion. Sterile gown drape gloves hat mask were utilized. Dynamic ultrasound guidance demonstrated the axillary artery. Anesthesia was achieved with 2 ML's of 1% lidocaine without epinephrine. A guidewire was placed percutaneously into the left axillary artery, pulsatile blood flow was noted a 12 cm 20-gauge catheter was inserted by a modified Seldinger technique. Pulsatile blood return was noted, good waveform which correlated with noninvasive blood pressure cuff, the line was sutured into place. Patient tolerated the procedure well with 10 mL of blood loss Complications: none Patient tolerated procedure: well Post-procedure vital signs: reviewed and stable Central Line Procedure time out: side/site verified, patient ID confirmed, sterile procedure used Consent obtained: verbal (telephone consent from Nusrat) Time of procedure: 13:30 Performed by: attending Indications: poor venous access, central drug admin. Prep: chlorhexadine prep, sterile drape, sterile procedures used Anesthesia: lidocaine 1% without epi Volume anesthetic (ml's): 2 Central line lumen: triple Central line location: internal jugular (R) Additional details: percutaneous placement, ultrasound guidance, Selinger technique used, line not sutured (commercial securement I's) CXR: appropriate position, no pneumothorax Complications: none Patient tolerated procedure: well Post-procedure vital signs: reviewed and stable
[2016-10-23] MEDS: INSULIN DETEMIR FLEXPEN/FLEX TOUCH 100 UNITS/ML 3ML SC SCH (21:00)
[2016-10-23] MEDS ORDERED: SODIUM CHLORIDE 0.9% 500ML 500 ML IV ONE (21:00)
[2016-10-23] MEDS ORDERED: DAPTOmycin IV 750 MG in SODIUM CHLORIDE 0.9% 50ML 50 ML IV SCH (21:30)
--- NOTE | 2016-10-23 21:45 | Critical Care Consultation ---
Critical Care Consultation Date of Consultation: Oct 23, 2016. Attending Physician: Agustin Gaxiola M.D. Reason for Consultation: Septic shock secondary to his severe skin and soft tissue infection of the right third digit which demonstrated gas and subcutaneous tissues. History of Present Illness History obtained from prior records and emergency department physician. 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 He was brought to the emergency department by EMS for increasing altered mental status. A x-ray of the right upper extremity was obtained which demonstrated gas in the subcutaneous tissues. The patient was also found to be hypotensive and tachycardic, it was felt the patient was in septic shock secondary to this gangrenous finger. Patient was given 4.5 g of IV Zosyn, 500 mg of daptomycin, and 900 mg of clindamycin for toxin production. He was volume resuscitated and had significant improvement in his blood pressure. The hand surgeon was contacted and the patient was scheduled to go to the operating room to achieve surgical control of the infectious source. I was consult in for further medical optimization prior to the patient going to the operating room. During my evaluation the patient had a significant altered mental status and was not oriented to time place her self. A hand surgeon I were able to contact the patient's after some difficulty to achieve consents for critical ICU procedures as well as the operation. Given that the patient was difficult to redirect and would likely not comply with verbal instructions he was electively intubated in the ICU to facilitate placement of a arterial line and a central line to assist with medical optimization the patient in septic shock prior to the OR. Past Medical/Surgical History Please see the history of present illness Family History Diabetes mellitus MOTHER FH: CAD (coronary artery disease) FATHER Social History Smoking Status: Never Smoker Drug Use: none Marital Status: Housing Status: lives with family Occupation Status: disabled Allergies Coded Allergies: Gemfibrozil (Verified Allergy, Unknown, 10/23/16) Home Medications Scheduled Allopurinol (Zyloprim), 300 MG PO DAILY Aspirin (Aspirin Ec), 81 MG PO DAILY Atorvastatin (Lipitor), 80 MG PO DAILY Digoxin (Digoxin), 0.125 MG PO DAILY Furosemide (Lasix), 1 TAB PO BID Glyburide (Diabeta), 5 MG PO DAILY Insulin Detemir (Levemir), 80 UNITS SQ BID Insulin Human Regular (Novolin R), 3 UNITS SQ AMPM Isosorbide Mononitrate Ext Rel (Imdur Ext Rel), 15 MG PO DAILY Lactobacillus Acidophilus (Lactinex), 1 TAB PO TID Levothyroxine Sodium (Synthroid), 50 MCG PO DAILY Losartan Potassium (Cozaar), 25 MG PO DAILY Metolazone (Zaroxolyn), 2.5 MG PO WK Metoprolol Succinate (Toprol Xl), 25 MG PO BID Sertraline HCl (Sertraline HCl), 100 MG PO DAILY Current Inpatient Medications Current Inpatient Medications Medications (Trade) Dose Ordered Sig/Ifeanyi Route Start Time Stop Time Status Last Admin Dose Admin Allopurinol (Zyloprim Tab) 300 mg DAILY PO 10/24/16 09:00 11/23/16 08:59 Aspirin (Ecotrin Tab) 81 mg DAILY PO 10/24/16 09:00 11/23/16 08:59 Lactobacillus Acidophilus (Floranex Tab) 1 tab TID PO 10/23/16 14:00 11/22/16 13:59 Sertraline HCl 100 mg 100 mg DAILY PO 10/24/16 09:00 11/23/16 08:59 Piperacillin Sod/ Tazobactam Sod 4.5 gm/Dextrose 120 ml @ 30 mls/hr Q8H IV 10/23/16 16:00 11/02/16 15:59 10/23/16 16:04 30 MLS/HR Clindamycin Phosphate 600 mg/ Dextrose 54 ml @ 100 mls/hr Q8H IV 10/23/16 20:00 10/30/16 19:59 10/23/16 20:31 100 MLS/HR Daptomycin 750 mg/ Sodium Chloride 65 ml @ 100 mls/hr DAILY@0600 IV 10/24/16 06:00 11/02/16 05:59 Sodium Chloride 1,000 ml @ 100 mls/hr Q10H IV 10/23/16 14:00 11/22/16 13:59 10/23/16 14:08 100 MLS/HR Levothyroxine Sodium/Syringe (Synthroid Inj/ Syringe) 1.25 ml @ 2 mls/min DAILYBB IV 10/24/16 06:00 11/23/16 05:59 Insulin Detemir (Levemir Flexpen/ FlexTouch) BID SC 10/23/16 21:00 11/22/16 20:59 Insulin Aspart (novoLOG ASPART) SLIDING SCALE G... Q4 SC 10/23/16 16:00 11/22/16 15:59 Miscellaneous Information (Consult Glycemic Management Pharmacy) 1 ea UD PRN N/A 10/23/16 14:30 11/22/16 14:29 Heparin Sodium (Porcine) (Heparin Sq 5000 Unit/0.5ml) 5,000 unit Q8 SQ 10/23/16 14:00 11/22/16 13:59 Piperacillin Sod/ Tazobactam Sod (Consult) 1 ea UD PRN N/A 10/23/16 14:30 11/22/16 14:29 Clindamycin Phosphate 1 ea 1 ea UD PRN N/A 10/23/16 14:30 11/22/16 14:29 Midazolam HCl 250 ml @ 0 mls/hr Q0M IV 10/23/16 14:28 11/22/16 14:27 10/23/16 16:27 0 MLS/HR Fentanyl Citrate (Fentanyl Drip 1250MCG/250 Nss) 250 ml @ 0 mls/hr Q0M IV 10/23/16 14:30 11/06/16 14:29 10/23/16 16:27 10 MLS/HR Daptomycin 1 ea 1 ea UD PRN N/A 10/23/16 15:30 11/22/16 15:29 Vasopressin 50 units/Sodium Chloride 502.5 ml @ 24 mls/hr [id number] IV 10/23/16 17:30 11/22/16 17:29 10/23/16 17:38 24 MLS/HR Sodium Chloride (Nss 500ml) 500 ml @ 999 mls/hr Q31M ONCE IV 10/23/16 20:45 10/23/16 21:15 UNV Review of Systems Unable to obtain due to altered mental status of the patient. Physical Exam Date Time Temp Pulse Resp B/P Pulse Ox O2 Delivery O2 Flow Rate FiO2 10/23/16 19:45 36.9 81 20 100/60 97 Mechanical Ventilator 60 10/23/16 19:35 37.8 89 20 109/55 94 Mechanical Ventilator 6.0 60 10/23/16 19:25 37.8 92 20 106/56 99 Mechanical Ventilator 60 10/23/16 19:15 37.8 92 20 101/56 99 Mechanical Ventilator 6.0 60 10/23/16 17:55 60 10/23/16 16:30 94 18 81/48 98 Mechanical Ventilator 80 10/23/16 16:00 60 10/23/16 16:00 106 18 116/61 97 Mechanical Ventilator 80 10/23/16 16:00 98 Mechanical Ventilator 80 10/23/16 15:45 103 18 96/50 97 Mechanical Ventilator 100 10/23/16 15:15 95 18 91/48 92 Mechanical Ventilator 100 10/23/16 15:05 87 22 77/41 86 10/23/16 15:00 94 11 123/102 93 Nasal Cannula 6.0 10/23/16 14:30 50 10/23/16 14:00 93 20 93 Nasal Cannula 6.0 10/23/16 13:40 37.7 110 21 117/63 98 Nasal Cannula 2.0 10/23/16 13:40 37.7 93 17 125/59 98 Nasal Cannula 6.0 10/23/16 13:23 106 97 10/23/16 13:13 93/58 10/23/16 13:10 100 Nasal Cannula 2.0 10/23/16 13:09 38.3 10/23/16 13:08 105 100 10/23/16 13:03 105 100 10/23/16 12:58 99/53 10/23/16 12:48 105 99 10/23/16 12:43 89/53 10/23/16 12:38 105 98 10/23/16 12:33 79/53 10/23/16 12:29 77/41 10/23/16 12:21 108 98 10/23/16 12:14 98/55 10/23/16 12:06 109 98 10/23/16 12:01 109 100 10/23/16 11:59 103/63 10/23/16 11:47 97/66 10/23/16 11:46 108 98/ 99 10/23/16 11:43 38.5 10/23/16 11:41 105 100 10/23/16 11:32 98 Nasal Cannula 2.0 10/23/16 11:29 111/65 10/23/16 11:26 109 96 10/23/16 11:21 108 97 10/23/16 11:13 109/55 10/23/16 11:06 117 96 10/23/16 10:58 124/57 10/23/16 10:55 123 10/23/16 10:54 39.4 10/23/16 10:51 114 98 10/23/16 10:46 115/56 10/23/16 10:35 96 Room Air 10/23/16 10:35 96 Room Air 10/23/16 10:33 101/48 10/23/16 10:10 39.6 132 20 95/53 96 Room Air General Appearance: WD/WN, mild distress Head: normocephalic, atraumatic Eyes: PERRLA Neck: normal range of motion, no tenderness, trachea midline, no stridor Respiratory: rhonchi (mild and scattered) Cardiovasular: normal S1S2, irregular rate (tachycardia), systolic murmur Abdomen: non tender, normal bowel sounds, no rebound, no masses, no guarding, no organomegaly Genitourinary - Male: external genitalia normal ([place] present) Back: normal inspection, no midline tenderness, no CVA tenderness Upper Extremities: deformity (multiple amputations, right upper extremity exhibited gangrenous third digit) Lower Extremities: deformity (multiple amputations bilaterally) Pulses: brachial (R) (1+), brachial (L) (1+), femoral (R) (1+), femoral (L) (1+ ) Neuro: alert, normal motor exam, disoriented Psychiatric: other (appeared to be delirious) Laboratory Results Last 24 Hours Test 10/23/16 10:30 10/23/16 10:34 10/23/16 10:38 10/23/16 10:40 White Blood Count 15.14 K/uL Red Blood Count 4.11 M/uL Hemoglobin 12.4 g/dL Hematocrit 35.3 % Mean Corpuscular Volume 85.9 fL Mean Corpuscular Hemoglobin 30.2 pg Mean Corpuscular Hemoglobin Concent 35.1 g/dl Platelet Count 190 K/uL Mean Platelet Volume 9.7 fL Neutrophils (%) (Auto) 94.4 % Lymphocytes (%) (Auto) 2.2 % Monocytes (%) (Auto) 2.4 % Eosinophils (%) (Auto) 0.0 % Basophils (%) (Auto) 0.1 % Neutrophils # (Auto) 14.29 K/uL Lymphocytes # (Auto) 0.33 K/uL Monocytes # (Auto) 0.37 K/uL Eosinophils # (Auto) 0.00 K/uL Basophils # (Auto) 0.01 K/uL RDW Standard Deviation 43.0 fL RDW Coefficient of Variation 13.6 % Immature Granulocyte % (Auto) 0.9 % Immature Granulocyte # (Auto) 0.14 K/uL Prothrombin Time 11.0 SECONDS Prothromb Time International Ratio 1.0 Activated Partial Thromboplast Time 31.0 SECONDS Partial Thromboplastin Ratio 1.2 Sodium Level 136 mmol/L Potassium Level 3.9 mmol/L Chloride Level 96 mmol/L Carbon Dioxide Level 28 mmol/L Anion Gap 12.0 mmol/L 17.0 mmol/L Blood Urea Nitrogen 54 mg/dl Creatinine 2.20 mg/dl Estimated GFR () 35.1 Estimated GFR (Non- 30.3 BUN/Creatinine Ratio 24.5 Random Glucose 153 mg/dl Calcium Level 9.6 mg/dl Magnesium Level 2.6 mg/dl Total Bilirubin 1.2 mg/dl Direct Bilirubin 0.4 mg/dl Aspartate Amino Transf (AST/SGOT) 45 U/L Alanine Aminotransferase (ALT/SGPT) 33 U/L Alkaline Phosphatase 152 U/L Total Creatine Kinase 464 U/L Creatine Kinase MB 1.0 ng/ml Creatine Kinase MB Ratio 0.2 Troponin I 0.259 ng/ml Total Protein 7.2 gm/dl Albumin 2.7 gm/dl Lipase 64 U/L Thyroid Stimulating Hormone (TSH) 0.708 uIu/ml Bedside Lactic Acid Venous 3.18 mmol/L Bedside Hemoglobin 11.9 g/dl Bedside Hematocrit 35 % Bedside Sodium 134 mEq/L Bedside Potassium 4.0 mEq/L Bedside Chloride 93 mEq/L Bedside Total CO2 29 mEq/l Bedside Blood Urea Nitrogen 52 mg/dl Bedside Creatinine 1.8 mg/dl Bedside Glucose (other) 158 mg/dl Bedside Ionized Calcium (Tara) 1.15 mmol/l Influenza Type A Antigen Neg for Influ A Influenza Type B Antigen Neg for Influ B Test 10/23/16 11:00 10/23/16 13:26 10/23/16 16:15 10/23/16 16:17 Urine Color DK YELLOW Urine Appearance CLEAR Urine pH 5.5 Urine Specific Pearson 1.019 Urine Protein 2+ Urine Glucose (UA) 1+ Urine Ketones NEG Urine Occult Blood 2+ Urine Nitrite NEG Urine Bilirubin NEG Urine Urobilinogen NEG Urine Leukocyte Esterase NEG Urine WBC (Auto) 1-5 /hpf Urine RBC (Auto) 0-4 /hpf Urine Hyaline Casts (Auto) 1-5 /lpf Urine Epithelial Cells (Auto) 10-20 /lpf Urine Bacteria (Auto) NEG Urine Yeast (Auto) Random Cortisol 53.92 mcg/dl Lactic Acid Level 1.0 mmol/L Bedside Glucose 56 mg/dl Test 10/23/16 16:47 10/23/16 17:55 10/23/16 20:12 10/23/16 20:27 Bedside Glucose 123 mg/dl Procalcitonin 8.86 ng/mL Lactic Acid Level 0.9 mmol/L Total Creatine Kinase 386 U/L Creatine Kinase MB 2.0 ng/ml Creatine Kinase MB Ratio 0.5 Troponin I 0.249 ng/ml Bedside Glucose (other) 81 mg/dl Diagnostic Results I have reviewed the radiology report and independently reviewed the images for the hand x-ray on 10/23/2016, I have independently reviewed the images and radiology report for the chest x-ray dated 10/23/2016 at 1613 Assessment & Plan (1) Severe sepsis (2) Septic shock (3) Acute encephalopathy (4) Elevated troponin I measurement (5) Abnormal EKG (6) Lactic acidemia (7) PATRICIA (acute kidney injury) (8) Necrotic wound of right hand (9) CHF (congestive heart failure) (10) DM type 2 (diabetes mellitus, type 2) (11) Hypothyroidism (12) Biventricular ICD (implantable cardioverter-defibrillator) in place (13) Nonischemic cardiomyopathy (14) CAD (coronary artery disease) (15) History of MRSA infection (16) MSSA bacteremia (17) Amputation of right index finger Neuro: Acute encephalopathy Suspect this is multifactorial, leading cause most likely infection Fentanyl infusion for sedation Versed infusion for sedation Spontaneous awakening trial in the morning Cardiovascular: Hypotension Secondary to severe sepsis Left of balance volume resuscitation with poor EF Had been tolerating vasopressin 0.4 mg/kg Nonischemic cardiomyopathy Hold digoxin while in PATRICIA Elevated troponins, continue to trend Echocardiogram in a.m. Respiratory Patient remains intubated following surgery Will continue at this time until more hemodynamically stable and hopefully off pressors Spontaneous breathing trial and morning Gastroenterology: - OG tube in place -Protonix for prophylaxis /Electrolytes Acute kidney injury, nonoliguric acute renal failure Lactic acidemia Half NSS with 20 and acute K at 75 per hour In review of prior labs patient has not had an episode of hyperkalemia including the setting of having an elevated creatinine Holding allopurinol while in PATRICIA Infectious Disease: Septic shock Blood cultures pending Urine culture pending Abscess culture pending Clindamycin 600 mg every 8 hours per protocol Daptomycin 4 mg/kg IV daily Zosyn 4.5 g IV every 8 hours Infectious disease consultation Elevated procalcitonin Heme/Onc: Mild anemia Heparin for prophylaxis Endocrine: Hypothyroidism 25 g IV levothyroxine daily Lines: 10/23/2016 left axillary arterial line 10/23/2016 right internal jugular central venous catheter I have personally spent 90 minutes of critical care time in the direct management of this patient. This is a life/limb threatening event. This includes time spent evaluating patient, direct bedside care, chart review, placing orders, interpretation of diagnostic studies, discussion with consultants, patient, and family members, as well as other required patient management activities. This time is exclusive of all separately billable procedures, and teaching time and separate from and in addition to any other critical care service time.
[2016-10-23 22:21] LABS: ISTAT ARTERIAL BLOOD GAS HCO3 29 meq/L (19-24); ISTAT ARTERIAL BLOOD GAS PCO2 45 mmHg (35-46); ISTAT ARTERIAL BLOOD GAS PO2 188 mmHg (80-95); ISTAT ARTERIAL BLOOD GAS pH 7.42 (7.35-7.45); ISTAT CARBON DIOXIDE 30 mEq/l (24-31); ISTAT DELIVERY SYSTEM Ventilator; ISTAT FIO2 60 %; ISTAT PEEP 5; ISTAT RATE 20; ISTAT SITE Art Line; VE 16.7; Vt 550
[2016-10-23 22:46] LABS: HEMATOCRIT 32.3 % (42-52); MEAN CORPUSCULAR HEMOGLOBIN 30.2 pg (25-34); MEAN CORPUSCULAR HGB CONC 34.4 g/dl (32-36); MEAN PLATELET VOLUME 9.3 fL (7.4-10.4); PLATELET COUNT 153 K/uL (130-400); RED BLOOD COUNT 3.67 M/uL (4.7-6.1); WHITE BLOOD COUNT 12.34 K/uL (4.8-10.8)
[2016-10-23 23:02] LABS: BUN/CREATININE RATIO 28.3 (10-20); CALCIUM 8.2 mg/dl (8.5-10.1); MAGNESIUM 2.6 mg/dl (1.8-2.4); POTASSIUM 4.2 mmol/L (3.5-5.1)
[2016-10-23 23:07] LABS: PHOSPHORUS 4.1 mg/dl (2.5-4.9)
[2016-10-24] VITALS (88 sets, daily range): BP systolic 82–144; BP diastolic 45–68; PULSE 81–125; TEMP 37.5–39.6; O2SAT 88–99; Ht 177.8 cm; Wt 115.8 kg
[2016-10-24] MEDS ORDERED: NURSING VERBAL MED ORDER ONE ×2 (00:30→18:45)
[2016-10-24] MEDS: PIPERACILL/TAZOBAC IV 4.5 GM in DEXTROSE 5% 100ML 100 ML IV SCH ×4 (00:31→23:52)
[2016-10-24] MEDS: SODIUM CHLOR 0.45% + 20MEQ KCL 1,000 ML IV SCH ×2 (00:33→11:22)
[2016-10-24] MEDS: ACETAMINOPHEN IV 650 MG / 65ML IV PRN (00:47)
[2016-10-24] MEDS: HEPARIN SOD 5000 UNIT/0.5 ML CARP SQ SCH ×4 (00:48→22:04)
--- NOTE | 2016-10-24 00:51 | OPERATIVE REPORT ---
DATE OF OPERATION: 10/23/2016 PREOPERATIVE DIAGNOSES: 1. Right hand middle finger gangrene. 2. Right hand infection. PROCEDURES: 1. Right middle finger amputation at MCP joint level. 2. Right hand I\T\D. ANESTHESIA: General. SURGEON: Dr. Henriquez. ASIAN STUDIES PROFESSOR: None. INDICATIONS: This is a gentleman well known to my practice. He has progressive diabetic infection of the tip of the finger. He presents in acute septic shock. He presents for emergent amputation of the finger with I\T\D, other work as indicated. The risks and benefits have been discussed including, but not limited to, risk of infection, nerve injury, stiffness, loss of motion, failure to improve, etc. The patient is agreeable and wishes to proceed. DESCRIPTION OF PROCEDURE: The patient had bogginess of the finger infection extending down to the level of the middle aspect of the middle phalanx. I felt it be best to proceed with amputation at the MP level. I elected not to proceed with ray amputation given his instability. I felt for surgical procedure would be better. I performed an elliptical fish mouth incision over the MP joint. Dissection was carried down through the skin and subcutaneous tissue. I applied an Esmarch tourniquet as the patient had an IV in the forearm. This was done prior to skin incision. The extensor tendon was sharply incised and I disarticulated the finger at the MP joint level. The flexor tendon was sharply incised and allowed to retract proximally. There was a small amount of serous fluid in the area, but no gross pus. There was gross pus and necrosis of the tip of the finger and cultures were taken of the fingertip. Tourniquet was let down. There was adequate bleeding in the area but the interosseous muscle did show some decreased contractility and fibrosis. I copiously irrigated the area with 1 liter of normal saline. Debridement of the area of skin, subcutaneous tissue and fascia was performed. I then performed a loose closure with 4-0 nylon and placed a packing in the distal aspect of the incision. Prior to closure, the traction neurectomies were performed and digital nerves were cauterized. Care was taken to preserve the digital neurovascular bundle to the adjacent finger. The patient was placed in a soft dressing and sent to the PACU in stable condition. Postoperative plan will be to remove the packing in 24-48 hours and recheck the wound and continue care as per the rn oncology. I attest to the content of the Intraoperative Record and any orders documented therein. Any exceptio ns are noted below.
[2016-10-24] MEDS: INSULIN ASPART 100 UNITS/ML 3 ML PEN SC SCH ×6 (04:00→19:57)
[2016-10-24] MEDS: CLINDAMYCIN IV 600 MG in DEXTROSE 5% ADD-VANTAGE 50ML 50 ML IV SCH ×3 (04:14→20:00)
[2016-10-24 04:50] LABS: HEMATOCRIT 29.1 % (42-52); MEAN CELL VOLUME 85.3 fL (80-100); MEAN CORPUSCULAR HEMOGLOBIN 29.9 pg (25-34); MEAN CORPUSCULAR HGB CONC 35.1 g/dl (32-36); MEAN PLATELET VOLUME 9.1 fL (7.4-10.4); PLATELET COUNT 140 K/uL (130-400); RED BLOOD COUNT 3.41 M/uL (4.7-6.1); WHITE BLOOD COUNT 11.41 K/uL (4.8-10.8)
[2016-10-24 05:09] LABS: BUN/CREATININE RATIO 25.7 (10-20); CREATININE 2.1 mg/dl (0.60-1.40); MAGNESIUM 2.5 mg/dl (1.8-2.4); POTASSIUM 4.3 mmol/L (3.5-5.1)
[2016-10-24 05:19] LABS: BASO % 0.1 %; BASO ABS # 0.01 K/uL (0-0.2); COMPLETE YES; EOS % 0.4 %; IG% 0.5 %; LYMPH % 8.2 %; LYMPH ABS # 0.94 K/uL (1.2-3.4); MONO % 8.2 %; NEUT % 82.6 %
[2016-10-24 05:21] LABS: CKMB/CK RATIO 0.5 (0-3.0)
[2016-10-24] MEDS ORDERED: LEVOTHYROXINE SODIUM INJ 25 MCG in SYRINGE 0 ML IV SCH (06:00)
[2016-10-24] MEDS: DAPTOmycin IV 750 MG in SODIUM CHLORIDE 0.9% 50ML 50 ML IV SCH (06:19)
--- NOTE | 2016-10-24 07:10 | DIAGNOSTIC IMAGING REPORT ---
CHEST ONE VIEW PORTABLE CLINICAL HISTORY: Respiratory failure COMPARISON STUDY: 10/23/2016 FINDINGS: The cardiac and mid sternal contours remain stable. There is a left subclavian pacer/defibrillator present. There is a right internal jugular central venous catheter present. There is an endotracheal tube 4 cm above the aga. There is a nasogastric tube with its tip projected over the gastric cardia. There is no focal pulmonary consolidation. There is mild central vascular prominence.[ IMPRESSION: Mild central vascular prominence. No evidence of lobar consolidation. Endotracheal tube 4 cm above the aga. Electronically signed by: Nasir Butts M.D. 10/24/2016 7:09 AM Dictated Date/Time: 10/24/2016 7:07 AM
[2016-10-24 08:16] LABS: ESTIMATED AVERAGE GLUCOSE 229 mg/dl; HA1C FLAG Normal (Normal)
[2016-10-24] MEDS ORDERED: ALLOPURINOL 300 MG TAB PO SCH (09:00)
--- NOTE | 2016-10-24 09:27 | Medical Consult ---
Consultation Date of Consultation: Oct 24, 2016. Attending Physician: Agustin Gaxiola M.D. Reason for Consultation: Gangrenous right middle finger History of Present Illness 65-year-old male with significant medical comorbidities including diabetes mellitus, severe congestive heart failure with ejection fraction 10-15 percent, previous amputations of fingers and toes, presented to the hospital with gangrenous infection of his right 3rd finger. Patient was found to be in septic shock, with x-rays, read by me, showing gas in the soft tissue surrounding the finger. Patient was intubated, now on BiPAP. He has undergone surgical amputation of the finger. Cultures from the finger growing Staph aureus, blood cultures are positive for Gram-positive cocci, likely also Staph. Patient has history of prior MRSA infection. Has remained afebrile since admission, follow-up blood cultures are pending. Currently being treated with combination of daptomycin, Zosyn, and clindamycin. Past Medical/Surgical History Medical Problems: (1) Cellulitis of right hand Status: Acute (2) Diabetes Status: Acute (3) Infection of finger Status: Acute (4) Necrotic wound of right hand Status: Acute (5) Septic shock Status: Acute (6) Severe sepsis Status: Acute Medical Problems: (1) Abnormal EKG (2) Acute encephalopathy (3) Adjustment disorder with depressed mood (4) PATRICIA (acute kidney injury) (5) Amputation of right index finger (6) Bacteremia due to Gram-positive bacteria (7) Biventricular ICD (implantable cardioverter-defibrillator) in place (8) CAD (coronary artery disease) (9) CHF (congestive heart failure) (10) Chronic systolic CHF (congestive heart failure) (11) Diabetic retinopathy (12) DM type 2 (diabetes mellitus, type 2) (13) Dyslipidemia (14) Elevated troponin I measurement (15) Gout (16) H/O hematuria (17) H/O: rheumatic fever (18) History of MRSA infection (19) HTN (hypertension) (20) Hypothyroidism (21) Lactic acidemia (22) Lung nodule (23) MSSA bacteremia (24) Neuropathy (25) Nonischemic cardiomyopathy (26) Wound dehiscence Surgical Problems: (1) H/O amputation of lesser toe (2) History of amputation of finger of left hand (3) History of implantable cardioverter-defibrillator (ICD) placement (4) Hx of BKA (5) S/P cardiac cath (6) S/P coronary artery stent placement Family History Diabetes mellitus MOTHER FH: CAD (coronary artery disease) FATHER Social History Smoking Status: Never Smoker Drug Use: none Marital Status: Housing Status: lives with family Occupation Status: disabled Allergies Coded Allergies: Gemfibrozil (Verified Allergy, Unknown, 10/23/16) Current Inpatient Medications Current Inpatient Medications Medications (Trade) Dose Ordered Sig/Ifeanyi Route Start Time Stop Time Status Last Admin Dose Admin Aspirin (Ecotrin Tab) 81 mg DAILY PO 10/24/16 09:00 11/23/16 08:59 Lactobacillus Acidophilus (Floranex Tab) 1 tab TID PO 10/23/16 14:00 11/22/16 13:59 Sertraline HCl 100 mg 100 mg DAILY PO 10/24/16 09:00 11/23/16 08:59 Piperacillin Sod/ Tazobactam Sod 4.5 gm/Dextrose 120 ml @ 30 mls/hr Q8H IV 10/23/16 16:00 11/02/16 15:59 10/24/16 00:31 30 MLS/HR Clindamycin Phosphate 600 mg/ Dextrose 54 ml @ 100 mls/hr Q8H IV 10/23/16 20:00 10/30/16 19:59 10/24/16 04:14 100 MLS/HR Daptomycin/Sodium Chloride (Cubicin IV/Nss 50ml) 65 ml @ 100 mls/hr DAILY@0600 IV 10/24/16 06:00 11/02/16 05:59 10/24/16 06:19 100 MLS/HR Insulin Detemir (Levemir Flexpen/ FlexTouch) BID SC 10/23/16 21:00 11/22/16 20:59 Insulin Aspart (novoLOG ASPART) SLIDING SCALE G... Q4 SC 10/23/16 16:00 11/22/16 15:59 Miscellaneous Information (Consult Glycemic Management Pharmacy) 1 ea UD PRN N/A 10/23/16 14:30 11/22/16 14:29 Heparin Sodium (Porcine) (Heparin Sq 5000 Unit/0.5ml) 5,000 unit Q8 SQ 10/23/16 14:00 11/22/16 13:59 10/24/16 06:20 5,000 UNIT Piperacillin Sod/ Tazobactam Sod (Consult) 1 ea UD PRN N/A 10/23/16 14:30 11/22/16 14:29 Clindamycin Phosphate 1 ea 1 ea UD PRN N/A 10/23/16 14:30 11/22/16 14:29 Midazolam HCl 250 ml @ 0 mls/hr Q0M IV 10/23/16 14:28 11/22/16 14:27 10/23/16 16:27 0 MLS/HR Fentanyl Citrate (Fentanyl Drip 1250MCG/250 Nss) 250 ml @ 0 mls/hr Q0M IV 10/23/16 14:30 11/06/16 14:29 10/23/16 16:27 10 MLS/HR Daptomycin 1 ea 1 ea UD PRN N/A 10/23/16 15:30 11/22/16 15:29 Vasopressin 50 units/Sodium Chloride 502.5 ml @ 24 mls/hr [id number] IV 10/23/16 17:30 11/22/16 17:29 10/23/16 17:38 24 MLS/HR Potassium Chloride/Sodium Chloride 1,000 ml @ 75 mls/hr [id number] IV 10/23/16 22:15 11/22/16 22:14 10/24/16 00:33 75 MLS/HR Acetaminophen 650 mg/Empty Bag 65 ml @ 260 mls/hr Q6H PRN IV 10/24/16 00:45 11/23/16 00:44 10/24/16 00:47 260 MLS/HR Famotidine/ Dextrose (Pepcid IV Inj/ D5 100ml) 102 ml @ 204 mls/hr Q12H IV 10/24/16 09:00 11/23/16 08:59 Review of Systems Not obtainable as patient intubated Physical Exam Date Time Temp Pulse Resp B/P Pulse Ox O2 Delivery O2 Flow Rate FiO2 10/24/16 07:08 38.8 99 19 100/56 93 10/24/16 07:03 38.8 99 18 95/56 10/24/16 06:58 38.8 99 19 101/60 10/24/16 06:53 38.8 98 20 101/57 10/24/16 06:48 38.9 100 19 104/59 2/20/ 06:43 38.9 98 16 118/68 88 10/24/16 06:38 38.9 98 20 109/60 98 10/24/16 06:33 38.9 92 20 104/59 96 10/24/ 06:28 39.0 97 19 106/61 10/24/ 06:23 39.0 95 19 104/60 99 10/24/16 06:18 39.0 93 19 102/59 94 10/24/16 06:15 39.0 102 19 95 10/24/ 06:13 39.0 102 19 110/59 10/24/ 06:08 39.0 101 19 100/59 10/24/ 06:03 39.1 101 19 105/56 10/24/16 06:00 39.1 102 20 95 10/24/ 05:53 39.1 106 10 82/47 90 10/24/16 05:48 39.1 101 24 112/50 95 10/24/16 05:45 30 10/24/16 05:43 39.1 103 20 98/56 95 10/24/16 05:38 39.1 103 20 100/55 95 10/24/ 05:33 39.1 104 20 99/58 94 10/24/16 05:28 39.1 103 21 99/54 95 10/24/16 05:23 39.2 105 20 102/53 95 10/24/ 05:18 39.2 107 21 100/59 93 10/24/ 05:13 39.2 104 21 101/50 95 10/24/ 05:08 39.2 103 21 99/53 95 10/24/ 05:03 39.2 104 22 101/56 94 10/24/ 04:58 39.2 102 22 100/58 94 20/ 04:53 39.2 104 23 86/56 94 10/24/ 04:48 39.3 105 23 96/59 95 10/24/ 04:43 39.3 105 22 103/58 95 10/24/ 04:38 39.3 105 22 100/58 95 10/24/ 04:33 39.3 106 23 98/59 94 10/24/16 04:30 39.3 109 22 96 2/ 04:23 39.3 107 21 105/63 95 10/24/16 04:18 39.3 107 23 108/60 94 10/24/16 04:13 39.4 108 22 104/61 94 10/24/16 04:08 39.4 109 23 107/57 93 10/24/16 04:03 39.4 107 22 103/58 94 10/24/16 04:00 94 Mechanical Ventilator 30 10/24/16 04:00 60 10/24/16 03:58 39.4 108 21 108/59 94 10/24/16 03:53 39.4 110 22 100/59 93 10/24/16 03:48 39.4 109 23 96/58 94 10/24/16 03:43 39.4 107 23 98/58 10/24/16 03:38 39.4 110 24 103/58 10/24/16 03:33 39.4 109 23 100/58 94 10/24/16 03:28 39.4 103 24 105/56 93 10/24/16 03:23 39.4 112 23 102/61 92 10/24/16 03:18 39.4 109 23 102/56 94 10/24/16 03:18 39.4 109 23 102/56 94 10/24/16 03:13 39.4 110 24 100/56 94 10/24/16 03:13 39.4 110 24 100/56 94 10/24/16 03:08 39.5 111 24 105/56 93 10/24/16 03:08 39.5 111 24 105/56 93 10/24/16 03:03 39.5 111 24 105/57 10/24/16 03:03 39.5 111 24 105/57 10/24/16 03:00 39.5 112 23 94 10/24/16 02:32 30 10/24/16 02:08 39.5 115 24 102/60 94 10/24/16 02:03 39.5 114 26 103/53 94 10/24/16 01:58 39.6 114 24 108/55 94 10/24/16 01:53 39.5 115 24 104/52 94 10/24/16 01:48 39.6 114 23 101/49 94 10/24/16 01:43 39.6 116 24 106/50 93 10/24/16 01:38 39.6 116 23 104/54 94 10/24/16 01:33 39.6 115 24 102/53 93 10/24/16 01:28 39.6 113 22 99/47 93 10/24/16 01:23 39.6 114 25 109/45 93 10/24/16 01:18 39.6 113 23 98/50 94 10/24/16 01:13 39.6 112 20 90/47 94 10/24/16 01:08 39.6 113 21 101/54 92 10/24/16 01:03 39.6 118 21 95/50 10/24/16 00:53 39.6 119 25 101/56 91 10/24/16 00:48 39.6 120 24 105/52 91 10/24/16 00:43 39.5 119 25 113/52 91 10/24/16 00:38 39.5 114 27 98/57 91 10/24/16 00:33 39.5 125 27 115/59 91 10/24/16 00:28 39.4 125 27 101/56 91 10/24/16 00:23 39.4 124 26 108/59 92 10/24/16 00:18 39.4 125 27 111/57 92 10/24/16 00:13 39.3 125 27 128/52 92 10/24/16 00:08 39.3 124 25 114/61 93 10/24/16 00:05 94 Mechanical Ventilator 30 10/24/16 00:05 60 10/24/16 00:03 39.2 123 26 106/55 92 10/24/16 00:00 39.2 124 27 93 10/23/16 23:58 39.2 125 26 130/49 92 10/23/16 23:53 39.1 112 25 109/59 93 10/23/16 23:48 39.1 117 25 114/57 93 10/23/16 23:43 39.1 120 24 111/52 93 10/23/16 23:38 39.1 120 24 126/59 93 10/23/16 23:33 39.0 120 25 110/52 93 10/23/16 23:29 39.0 114 15 98/52 91 10/23/16 23:20 30 10/23/16 23:13 114 24 107/56 92 10/23/16 23:08 114 25 103/55 92 10/23/16 23:03 110 23 103/56 92 10/23/16 22:58 113 23 117/56 92 10/23/16 22:58 113 23 117/56 92 10/23/16 22:53 115 22 114/57 92 10/23/16 22:53 115 22 114/57 92 10/23/16 22:48 112 22 102/64 92 10/23/16 22:48 112 22 102/64 92 10/23/16 22:43 115 22 112/59 92 10/23/16 22:43 115 22 112/59 92 10/23/16 22:38 114 23 123/67 92 10/23/16 22:38 114 23 123/67 92 10/23/16 22:33 113 23 107/61 10/23/16 22:33 113 23 107/61 10/23/16 22:28 116 22 140/65 92 10/23/16 22:28 37.5 116 22 140/65 92 10/23/16 22:23 107 23 126/77 92 10/23/16 22:23 37.5 107 23 126/77 92 10/23/16 22:18 111 21 134/74 93 10/23/16 22:18 111 21 134/74 93 10/23/16 22:14 30 10/23/16 22:13 111 21 145/75 94 10/23/16 22:13 111 21 145/75 94 10/23/16 22:08 110 21 149/82 98 10/23/16 22:08 110 21 149/82 98 10/23/16 22:03 108 20 143/82 98 10/23/16 22:03 108 20 143/82 98 10/23/16 22:00 109 20 98 10/23/16 21:38 108 19 139/80 94 10/23/16 21:33 100 18 136/78 97 10/23/16 21:28 99 18 132/81 97 10/23/16 21:23 92 19 116/68 96 10/23/16 21:23 92 19 116/68 96 10/23/16 21:18 93 19 119/67 96 10/23/16 21:18 93 19 119/67 96 10/23/16 21:13 89 18 109/62 97 2/19/17 21:13 89 18 109/62 97 17 21:08 86 17 103/61 98 17 21:08 86 17 103/61 98 17 21:03 87 17 85/60 97 17 21:03 87 17 85/60 97 17 21:00 60 17 20:58 85 17 90/56 97 1917 20:58 85 17 90/56 97 17 20:53 85 17 91/53 97 17 20:53 85 17 91/53 97 17 20:48 86 24 87/53 97 1917 20:48 86 24 87/53 97 17 20:45 85 16 97 17 20:43 84 20 86/52 17 20:43 84 20 86/52 17 20:38 86 17 94/54 98 17 20:38 86 17 94/54 98 10/23/16 20:33 84 18 88/50 98 17 20:33 84 18 88/50 98 17 20:32 96 Mechanical Ventilator 60 10/23/16 20:32 60 10/23/16 20:30 84 17 98 17 20:28 84 19 87/53 98 17 20:23 85 18 86/55 99 17 20:18 82 26 83/51 97 17 20:13 82 21 81/53 17 20:13 82 21 81/53 17 20:09 86 21 98/57 99 17 20:09 36.6 86 21 98/57 99 17 20:03 85 21 95/56 10/23/17 20:03 85 21 95/56 17 19:58 86 22 109/59 17 19:53 83 19 100/53 98 17 19:48 86 19 106/55 98 17 19:45 36.9 81 20 100/60 97 Mechanical Ventilator 60 10/23/16 19:43 36.6 87 24 100/60 99 17 19:43 87 24 100/60 99 17 19:38 88 26 99/58 10/23/17 19:38 88 26 99/58 17 19:35 37.8 89 20 109/55 94 Mechanical Ventilator 6.0 60 17 19:33 87 26 109/55 97 10/23/17 19:33 87 26 109/55 97 17 19:28 87 23 108/57 99 10/23/17 19:28 87 23 108/57 99 17 19:25 37.8 92 20 106/56 99 Mechanical Ventilator 60 17 19:23 89 23 106/59 99 17 19:23 89 23 106/59 99 17 19:18 90 21 108/58 98 17 19:18 90 21 108/58 98 17 19:15 37.8 92 20 101/56 99 Mechanical Ventilator 6.0 60 17 19:13 91 20 101/56 17 19:13 91 20 101/56 17 19:10 93 21 125/61 99 1917 19:10 93 21 125/61 99 17 17:55 60 17 17:48 84 20 98/57 91 17 17:43 84 20 98/55 100 17 17:38 85 20 99/56 98 17 17:33 86 20 96/55 97 17 17:28 87 22 94/50 97 17 17:23 88 20 87/49 96 17 17:18 88 19 94/50 95 17 17:13 89 18 80/50 94 17 17:08 86 19 85/51 94 17 17:03 89 18 97/49 93 17 17:00 90 18 93 17 16:30 94 18 81/48 98 Mechanical Ventilator 80 17 16:00 60 17 16:00 106 18 116/61 97 Mechanical Ventilator 80 17 16:00 98 Mechanical Ventilator 80 17 15:45 103 18 96/50 97 Mechanical Ventilator 100 10/23/16 15:15 95 18 91/48 92 Mechanical Ventilator 100 10/23/16 15:05 87 22 77/41 86 10/23/16 15:00 94 11 123/102 93 Nasal Cannula 6.0 10/23/16 14:30 50 10/23/16 14:00 93 20 93 Nasal Cannula 6.0 10/23/16 13:40 37.7 110 21 117/63 98 Nasal Cannula 2.0 10/23/16 13:40 37.7 93 17 125/59 98 Nasal Cannula 6.0 10/23/16 13:23 106 97 10/23/16 13:13 93/58 10/23/16 13:10 100 Nasal Cannula 2.0 10/23/16 13:09 38.3 10/23/16 13:08 105 100 10/23/16 13:03 105 100 10/23/16 12:58 99/53 10/23/16 12:48 105 99 10/23/16 12:43 89/53 10/23/16 12:38 105 98 10/23/16 12:33 79/53 10/23/16 12:29 77/41 10/23/16 12:21 108 98 10/23/16 12:14 98/55 10/23/16 12:06 109 98 10/23/16 12:01 109 100 10/23/16 11:59 103/63 10/23/16 11:47 97/66 10/23/16 11:46 108 98/ 99 10/23/16 11:43 38.5 10/23/16 11:41 105 100 10/23/16 11:32 98 Nasal Cannula 2.0 10/23/16 11:29 111/65 10/23/16 11:26 109 96 10/23/16 11:21 108 97 10/23/16 11:13 109/55 10/23/16 11:06 117 96 10/23/16 10:58 124/57 10/23/16 10:55 123 10/23/16 10:54 39.4 10/23/16 10:51 114 98 10/23/16 10:46 115/56 10/23/16 10:35 96 Room Air 10/23/16 10:35 96 Room Air 10/23/16 10:33 101/48 10/23/16 10:10 39.6 132 20 95/53 96 Room Air General Appearance: WD/WN, no apparent distress Head: normocephalic, atraumatic Eyes: normal inspection, sclerae normal ENT: normal ENT inspection, + pertinent finding (Endotracheal tube in place) Neck: supple, no adenopathy, thyroid normal, trachea midline Respiratory/Chest: chest non-tender, no respiratory distress, + rhonchi Cardiovascular: regular rate, rhythm, no gallop, no murmur Abdomen/GI: normal bowel sounds, non tender, soft, no organomegaly Extremities/Musculoskelatal: + pertinent finding (surgical dressing in place right hand, left BKA) Neurologic/Psych: + pertinent finding (Sedated on ventilator) Skin: normal color, no rash, + pertinent finding (Surgical dressing right hand) Lymphatic: no adenopathy Laboratory Results Date/Time Source Procedure Growth Status 10/24/16 04:37 Blood Blood Culture Pending Received 10/24/16 04:34 Blood Blood Culture Pending Received 10/23/16 10:45 Blood Blood Culture - Preliminary Gram Positive Cocci Resulted 10/23/16 10:30 Blood Blood Culture - Preliminary Gram Positive Cocci Resulted 10/23/16 13:40 Nasal MRSA DNA Surveillance Screen - Final Specimen Negative for MRSA by DNA Probe Complete 10/23/16 11:00 Urine,Catheterized Urine Culture Pending Received 10/23/16 18:28 Incision Site Finger Gram Stain Pending Received 10/23/16 18:28 Incision Site Finger Bacterial Culture Pending Received 10/23/16 10:32 Abscess Finger , Right 3rd Gram Stain Pending Resulted 10/23/16 10:32 Wound Culture - Preliminary Staphylococcus Aureus Alpha Strep. Not Enterococcus Resulted Last 24 Hours Test 10/23/16 10:30 10/23/16 10:34 10/23/16 10:38 10/23/16 10:40 White Blood Count 15.14 K/uL Red Blood Count 4.11 M/uL Hemoglobin 12.4 g/dL Hematocrit 35.3 % Mean Corpuscular Volume 85.9 fL Mean Corpuscular Hemoglobin 30.2 pg Mean Corpuscular Hemoglobin Concent 35.1 g/dl Platelet Count 190 K/uL Mean Platelet Volume 9.7 fL Neutrophils (%) (Auto) 94.4 % Lymphocytes (%) (Auto) 2.2 % Monocytes (%) (Auto) 2.4 % Eosinophils (%) (Auto) 0.0 % Basophils (%) (Auto) 0.1 % Neutrophils # (Auto) 14.29 K/uL Lymphocytes # (Auto) 0.33 K/uL Monocytes # (Auto) 0.37 K/uL Eosinophils # (Auto) 0.00 K/uL Basophils # (Auto) 0.01 K/uL RDW Standard Deviation 43.0 fL RDW Coefficient of Variation 13.6 % Immature Granulocyte % (Auto) 0.9 % Immature Granulocyte # (Auto) 0.14 K/uL Prothrombin Time 11.0 SECONDS Prothromb Time International Ratio 1.0 Activated Partial Thromboplast Time 31.0 SECONDS Partial Thromboplastin Ratio 1.2 Sodium Level 136 mmol/L Potassium Level 3.9 mmol/L Chloride Level 96 mmol/L Carbon Dioxide Level 28 mmol/L Anion Gap 12.0 mmol/L 17.0 mmol/L Blood Urea Nitrogen 54 mg/dl Creatinine 2.20 mg/dl Estimated GFR () 35.1 Estimated GFR (Non- 30.3 BUN/Creatinine Ratio 24.5 Random Glucose 153 mg/dl Calcium Level 9.6 mg/dl Magnesium Level 2.6 mg/dl Total Bilirubin 1.2 mg/dl Direct Bilirubin 0.4 mg/dl Aspartate Amino Transf (AST/SGOT) 45 U/L Alanine Aminotransferase (ALT/SGPT) 33 U/L Alkaline Phosphatase 152 U/L Total Creatine Kinase 464 U/L Creatine Kinase MB 1.0 ng/ml Creatine Kinase MB Ratio 0.2 Troponin I 0.259 ng/ml Total Protein 7.2 gm/dl Albumin 2.7 gm/dl Lipase 64 U/L Thyroid Stimulating Hormone (TSH) 0.708 uIu/ml Bedside Lactic Acid Venous 3.18 mmol/L Bedside Hemoglobin 11.9 g/dl Bedside Hematocrit 35 % Bedside Sodium 134 mEq/L Bedside Potassium 4.0 mEq/L Bedside Chloride 93 mEq/L Bedside Total CO2 29 mEq/l Bedside Blood Urea Nitrogen 52 mg/dl Bedside Creatinine 1.8 mg/dl Bedside Glucose (other) 158 mg/dl Bedside Ionized Calcium (Tara) 1.15 mmol/l Influenza Type A Antigen Neg for Influ A Influenza Type B Antigen Neg for Influ B Test 10/23/16 11:00 10/23/16 13:26 10/23/16 16:15 10/23/16 16:17 Urine Color DK YELLOW Urine Appearance CLEAR Urine pH 5.5 Urine Specific Bude 1.019 Urine Protein 2+ Urine Glucose (UA) 1+ Urine Ketones NEG Urine Occult Blood 2+ Urine Nitrite NEG Urine Bilirubin NEG Urine Urobilinogen NEG Urine Leukocyte Esterase NEG Urine WBC (Auto) 1-5 /hpf Urine RBC (Auto) 0-4 /hpf Urine Hyaline Casts (Auto) 1-5 /lpf Urine Epithelial Cells (Auto) 10-20 /lpf Urine Bacteria (Auto) NEG Urine Yeast (Auto) Random Cortisol 53.92 mcg/dl Lactic Acid Level 1.0 mmol/L Bedside Glucose 56 mg/dl Test 10/23/16 16:47 10/23/16 17:55 10/23/16 20:12 10/23/16 20:27 Bedside Glucose 123 mg/dl Procalcitonin 8.86 ng/mL Lactic Acid Level 0.9 mmol/L Total Creatine Kinase 386 U/L Creatine Kinase MB 2.0 ng/ml Creatine Kinase MB Ratio 0.5 Troponin I 0.249 ng/ml Bedside Glucose (other) 81 mg/dl Test 10/23/16 22:09 10/23/16 22:39 10/24/16 00:15 10/24/16 04:26 Blood Gas Sample Site Art Line Bedside Blood Gas pH (LAB) 7.42 Bedside Blood Gas pCO2 (LAB) 45 mmHg Bedside Blood Gas pO2 (LAB) 188 mmHg Bedside Blood Gas HCO3 (LAB) 29 meq/L Bedside Blood Gas Total CO2 30 mEq/l Bedside Blood Gas Base Excess (LAB) 4.0 meq/L Bedside Blood Gas O2 Saturation 100.0 % Brent Test NA Oxygen Delivery Device Ventilator Bedside Oxygen Rate (breaths/min) 20 Blood Gas Minute Ventilation 16.7 Bedside FiO2 60 % Blood Gas Tidal Volume 550 Blood Gas PEEP 5 White Blood Count 12.34 K/uL Red Blood Count 3.67 M/uL Hemoglobin 11.1 g/dL Hematocrit 32.3 % Mean Corpuscular Volume 88.0 fL Mean Corpuscular Hemoglobin 30.2 pg Mean Corpuscular Hemoglobin Concent 34.4 g/dl RDW Standard Deviation 44.9 fL RDW Coefficient of Variation 14.0 % Platelet Count 153 K/uL Mean Platelet Volume 9.3 fL Sodium Level 138 mmol/L Potassium Level 4.2 mmol/L Chloride Level 101 mmol/L Carbon Dioxide Level 29 mmol/L Anion Gap 8.0 mmol/L Blood Urea Nitrogen 57 mg/dl Creatinine 2.00 mg/dl Est Creatinine Clear Calc Drug Dose 49.8 ml/min Estimated GFR () 39.4 Estimated GFR (Non- 34.0 BUN/Creatinine Ratio 28.3 Random Glucose 89 mg/dl Lactic Acid Level 1.2 mmol/L Calcium Level 8.2 mg/dl Phosphorus Level 4.1 mg/dl Magnesium Level 2.6 mg/dl Pro-B-Type Natriuretic Peptide 82657 pg/ml Bedside Glucose 96 mg/dl 96 mg/dl Test 10/24/16 04:34 10/24/16 08:13 10/24/16 08:46 White Blood Count 11.41 K/uL Red Blood Count 3.41 M/uL Hemoglobin 10.2 g/dL Hematocrit 29.1 % Mean Corpuscular Volume 85.3 fL Mean Corpuscular Hemoglobin 29.9 pg Mean Corpuscular Hemoglobin Concent 35.1 g/dl Platelet Count 140 K/uL Mean Platelet Volume 9.1 fL Neutrophils (%) (Auto) 82.6 % Lymphocytes (%) (Auto) 8.2 % Monocytes (%) (Auto) 8.2 % Eosinophils (%) (Auto) 0.4 % Basophils (%) (Auto) 0.1 % Neutrophils # (Auto) 9.42 K/uL Lymphocytes # (Auto) 0.94 K/uL Monocytes # (Auto) 0.93 K/uL Eosinophils # (Auto) 0.05 K/uL Basophils # (Auto) 0.01 K/uL RDW Standard Deviation 43.4 fL RDW Coefficient of Variation 14.0 % Immature Granulocyte % (Auto) 0.5 % Immature Granulocyte # (Auto) 0.06 K/uL Red Blood Cell Morphology Unremarkable Sodium Level 140 mmol/L Potassium Level 4.3 mmol/L Chloride Level 103 mmol/L Carbon Dioxide Level 29 mmol/L Anion Gap 8.0 mmol/L Blood Urea Nitrogen 54 mg/dl Creatinine 2.10 mg/dl Est Creatinine Clear Calc Drug Dose 47.4 ml/min Estimated GFR () 37.2 Estimated GFR (Non- 32.1 BUN/Creatinine Ratio 25.7 Random Glucose 88 mg/dl Estimated Average Glucose 229 mg/dl Hemoglobin A1c 9.6 % Calcium Level 8.0 mg/dl Magnesium Level 2.5 mg/dl Total Bilirubin 1.1 mg/dl Direct Bilirubin 0.5 mg/dl Aspartate Amino Transf (AST/SGOT) 42 U/L Alanine Aminotransferase (ALT/SGPT) 30 U/L Alkaline Phosphatase 107 U/L Total Creatine Kinase 296 U/L Creatine Kinase MB 1.4 ng/ml Creatine Kinase MB Ratio 0.5 Troponin I 0.237 ng/ml Pro-B-Type Natriuretic Peptide 9284 pg/ml Total Protein 5.9 gm/dl Albumin 2.1 gm/dl Bedside Glucose 116 mg/dl RIGHT HAND MIN 3 VIEWS ROUTINE CLINICAL HISTORY: 3rd digit infection, old amp of thumb and 2nd digit Right COMPARISON: CT dated 01/07/2016 DISCUSSION: Operative changes consistent with amputation of the bulk of the distal phalanx of the third finger. Amputation of the phalanges and distal aspects second metacarpal. Partial amputation distal phalanx of the thumb. Mild nonspecific soft tissue edema. No well-defined evidence for osteomyelitis. Potential air containment within the soft tissues adjacent to the distal phalanx right third finger. There is no evidence for soft tissue swelling. IMPRESSION: 1. Postoperative changes as noted. 2. No acute bony abnormality. 3. Soft tissue edematous change primarily about the residual phalanges of the third finger. There appears to be a moderate degree of soft tissue gas. 4. The appearance is consistent with that of a gas-forming infection and/or cellulitis of the third finger. 5. No evidence for osteomyelitis Assessment & Plan Sepsis with septic shock, likely Staph aureus, secondary to gangrenous right third finger infection now s/p amputation in patient with diabetes and multiple other co-morbidities. Daptomycin and Zosyn appropriate for now, and agree with clindamycin for 48 hours for potential "anti-toxin" effects. Will adjust Rx once further culture results available. Will follow.
[2016-10-24] MEDS: SERTRALINE HCL 100 MG TAB PO SCH (09:32)
[2016-10-24] MEDS: LACTOBACILLUS ACIDOPHILUS (FLORANEX) TAB PO SCH ×3 (09:32→20:56)
[2016-10-24] MEDS: FAMOTIDINE IV INJ 20 MG in DEXTROSE 5% 100ML 100 ML IV SCH ×2 (09:32→20:56)
[2016-10-24] MEDS: ASPIRIN 81 MG ECTAB PO SCH (09:33)
--- NOTE | 2016-10-24 10:07 | Medical Student: [facility] ---
Med Student History & Physical Date & Time of Service: Oct 24, 2016 at 09:11 Chief Complaint: Septic Shock Primary Care Physician: No Doctor, Assigned History of Present Illness Source: hospital records Pt is a 65 yo male with a PMH of DM, HTN, CHF with EF of 15-20%, CAD with ICD placement, and diabetic neuropathy with multiple amputation of fingers, toes and LLE, who presented yesterday to the ED via EMS for AMS. On Arrival pt was febrile 39.6, Tachycardic at 132 and hypotensive at 95/53. He was found to have a necrotic right 3rd finger that was to be amputated later this week. X-ray of the right hand showed a gas forming infection of the right 3rd finger. He was started on Zosyn, Daptomycin and Clindamycin following wound and blood cxs. He had a lactate of 3.18, a Cr of 2.2 and elevated LFTs. His WBC count was 15 and procalcitonin was elevated at 8. He received tylenol and 3.5 L of fluid as per sepsis protocol. The right 3rd finger was amputated overnight and pt was transferred to the ICU still intubated. This morning the pt remains sedated and intubated, and does not wake to verbal or physical stimuli. He remains febrile at 39.5 and his BP is up to 102/56. Past Medical/Surgical History Medical Problems: (1) Cellulitis of right hand Status: Acute (2) Diabetes Status: Acute (3) Infection of finger Status: Acute (4) Necrotic wound of right hand Status: Acute (5) Septic shock Status: Acute (6) Severe sepsis Status: Acute Social History Smoking Status: Never Smoker Drug Use: none Marital Status: Housing status: lives with family Occupational Status: disabled Immunizations History of Influenza Vaccine: Yes Influenza Vaccine Date: Jun 27, 2015 History of Tetanus Vaccine?: Yes Tetanus Immunization Date: Aug 24, 2010 History of Pneumococcal: Yes Pneumococcal Date: Jul 03, 1995 History of Hepatitis B Vaccine: Unknown Allergies Coded Allergies: Gemfibrozil (Verified Allergy, Unknown, 10/23/16) Medications Allopurinol (Zyloprim), 300 MG PO DAILY Aspirin (Aspirin Ec), 81 MG PO DAILY Atorvastatin (Lipitor), 80 MG PO DAILY Digoxin (Digoxin), 0.125 MG PO DAILY Furosemide (Lasix), 1 TAB PO BID Glyburide (Diabeta), 5 MG PO DAILY Insulin Detemir (Levemir), 80 UNITS SQ BID Insulin Human Regular (Novolin R), 3 UNITS SQ AMPM Isosorbide Mononitrate Ext Rel (Imdur Ext Rel), 15 MG PO DAILY Lactobacillus Acidophilus (Lactinex), 1 TAB PO TID Levothyroxine Sodium (Synthroid), 50 MCG PO DAILY Losartan Potassium (Cozaar), 25 MG PO DAILY Metolazone (Zaroxolyn), 2.5 MG PO WK Metoprolol Succinate (Toprol Xl), 25 MG PO BID Sertraline HCl (Sertraline HCl), 100 MG PO DAILY Review of Systems Unable to complete dt current level of sedation. Physical Exam Vital Signs (24 Hours) Date Time Temp Pulse Resp B/P Pulse Ox O2 Delivery O2 Flow Rate FiO2 10/24/16 07:08 38.8 99 19 100/56 93 10/24/16 07:03 38.8 99 18 95/56 10/24/16 06:58 38.8 99 19 101/60 10/24/16 06:53 38.8 98 20 101/57 10/24/16 06:48 38.9 100 19 104/59 10/24/16 06:43 38.9 98 16 118/68 88 10/24/16 06:38 38.9 98 20 109/60 98 10/24/16 06:33 38.9 92 20 104/59 96 10/24/16 06:28 39.0 97 19 106/61 10/24/16 06:23 39.0 95 19 104/60 99 10/24/16 06:18 39.0 93 19 102/59 94 10/24/16 06:15 39.0 102 19 95 10/24/16 06:13 39.0 102 19 110/59 10/24/16 06:08 39.0 101 19 100/59 10/24/16 06:03 39.1 101 19 105/56 10/24/16 06:00 39.1 102 20 95 10/24/16 05:53 39.1 106 10 82/47 90 10/24/16 05:48 39.1 101 24 112/50 95 10/24/16 05:45 30 10/24/16 05:43 39.1 103 20 98/56 95 10/24/16 05:38 39.1 103 20 100/55 95 10/24/16 05:33 39.1 104 20 99/58 94 10/24/16 05:28 39.1 103 21 99/54 95 10/24/16 05:23 39.2 105 20 102/53 95 10/24/16 05:18 39.2 107 21 100/59 93 10/24/16 05:13 39.2 104 21 101/50 95 10/24/16 05:08 39.2 103 21 99/53 95 10/24/16 05:03 39.2 104 22 101/56 94 10/24/16 04:58 39.2 102 22 100/58 94 10/24/16 04:53 39.2 104 23 86/56 94 10/24/16 04:48 39.3 105 23 96/59 95 10/24/16 04:43 39.3 105 22 103/58 95 10/24/16 04:38 39.3 105 22 100/58 95 10/24/16 04:33 39.3 106 23 98/59 94 10/24/16 04:30 39.3 109 22 96 10/24/16 04:23 39.3 107 21 105/63 95 10/24/16 04:18 39.3 107 23 108/60 94 10/24/16 04:13 39.4 108 22 104/61 94 10/24/16 04:08 39.4 109 23 107/57 93 10/24/16 04:03 39.4 107 22 103/58 94 10/24/16 04:00 94 Mechanical Ventilator 30 10/24/16 04:00 60 10/24/16 03:58 39.4 108 21 108/59 94 10/24/16 03:53 39.4 110 22 100/59 93 10/24/16 03:48 39.4 109 23 96/58 94 10/24/16 03:43 39.4 107 23 98/58 10/24/16 03:38 39.4 110 24 103/58 10/24/16 03:33 39.4 109 23 100/58 94 10/24/16 03:28 39.4 103 24 105/56 93 10/24/16 03:23 39.4 112 23 102/61 92 10/24/16 03:18 39.4 109 23 102/56 94 10/24/16 03:18 39.4 109 23 102/56 94 10/24/16 03:13 39.4 110 24 100/56 94 10/24/16 03:13 39.4 110 24 100/56 94 10/24/16 03:08 39.5 111 24 105/56 93 10/24/16 03:08 39.5 111 24 105/56 93 10/24/16 03:03 39.5 111 24 105/57 10/24/16 03:03 39.5 111 24 105/57 10/24/16 03:00 39.5 112 23 94 10/24/16 02:32 30 10/24/16 02:08 39.5 115 24 102/60 94 10/24/16 02:03 39.5 114 26 103/53 94 10/24/16 01:58 39.6 114 24 108/55 94 10/24/16 01:53 39.5 115 24 104/52 94 10/24/16 01:48 39.6 114 23 101/49 94 10/24/16 01:43 39.6 116 24 106/50 93 10/24/16 01:38 39.6 116 23 104/54 94 10/24/16 01:33 39.6 115 24 102/53 93 10/24/16 01:28 39.6 113 22 99/47 93 10/24/16 01:23 39.6 114 25 109/45 93 10/24/16 01:18 39.6 113 23 98/50 94 10/24/16 01:13 39.6 112 20 90/47 94 10/24/16 01:08 39.6 113 21 101/54 92 10/24/16 01:03 39.6 118 21 95/50 10/24/16 00:53 39.6 119 25 101/56 91 10/24/16 00:48 39.6 120 24 105/52 91 10/24/16 00:43 39.5 119 25 113/52 91 10/24/16 00:38 39.5 114 27 98/57 91 10/24/16 00:33 39.5 125 27 115/59 91 10/24/16 00:28 39.4 125 27 101/56 91 10/24/16 00:23 39.4 124 26 108/59 92 10/24/16 00:18 39.4 125 27 111/57 92 10/24/16 00:13 39.3 125 27 128/52 92 10/24/16 00:08 39.3 124 25 114/61 93 10/24/16 00:05 94 Mechanical Ventilator 30 10/24/16 00:05 60 10/24/16 00:03 39.2 123 26 106/55 92 10/24/16 00:00 39.2 124 27 93 10/23/16 23:58 39.2 125 26 130/49 92 10/23/16 23:53 39.1 112 25 109/59 93 10/23/16 23:48 39.1 117 25 114/57 93 10/23/16 23:43 39.1 120 24 111/52 93 10/23/16 23:38 39.1 120 24 126/59 93 10/23/16 23:33 39.0 120 25 110/52 93 10/23/16 23:29 39.0 114 15 98/52 91 10/23/16 23:20 30 10/23/16 23:13 114 24 107/56 92 10/23/16 23:08 114 25 103/55 92 10/23/16 23:03 110 23 103/56 92 10/23/16 22:58 113 23 117/56 92 10/23/16 22:58 113 23 117/56 92 10/23/16 22:53 115 22 114/57 92 10/23/16 22:53 115 22 114/57 92 10/23/16 22:48 112 22 102/64 92 10/23/16 22:48 112 22 102/64 92 10/23/16 22:43 115 22 112/59 92 10/23/16 22:43 115 22 112/59 92 10/23/16 22:38 114 23 123/67 92 10/23/16 22:38 114 23 123/67 92 10/23/16 22:33 113 23 107/61 10/23/16 22:33 113 23 107/61 10/23/16 22:28 116 22 140/65 92 10/23/16 22:28 37.5 116 22 140/65 92 10/23/16 22:23 107 23 126/77 92 10/23/16 22:23 37.5 107 23 126/77 92 17 22:18 111 21 134/74 93 17 22:18 111 21 134/74 93 17 22:14 30 17 22:13 111 21 145/75 94 17 22:13 111 21 145/75 94 10/23/16 22:08 110 21 149/82 98 17 22:08 110 21 149/82 98 10/23/16 22:03 108 20 143/82 98 17 22:03 108 20 143/82 98 10/23/16 22:00 109 20 98 17 21:38 108 19 139/80 94 10/23/16 21:33 100 18 136/78 97 10/23/16 21:28 99 18 132/81 97 17 21:23 92 19 116/68 96 17 21:23 92 19 116/68 96 10/23/16 21:18 93 19 119/67 96 17 21:18 93 19 119/67 96 17 21:13 89 18 109/62 97 10/23/16 21:13 89 18 109/62 97 10/23/16 21:08 86 17 103/61 98 17 21:08 86 17 103/61 98 17 21:03 87 17 85/60 97 17 21:03 87 17 85/60 97 17 21:00 60 10/23/16 20:58 85 17 90/56 97 17 20:58 85 17 90/56 97 17 20:53 85 17 91/53 97 17 20:53 85 17 91/53 97 17 20:48 86 24 87/53 97 17 20:48 86 24 87/53 97 17 20:45 85 16 97 17 20:43 84 20 86/52 10/23/17 20:43 84 20 86/52 17 20:38 86 17 94/54 98 1917 20:38 86 17 94/54 98 17 20:33 84 18 88/50 98 2/19/17 20:33 84 18 88/50 98 10/23/16 20:32 96 Mechanical Ventilator 60 10/23/16 20:32 60 10/23/16 20:30 84 17 98 10/23/16 20:28 84 19 87/53 98 10/23/16 20:23 85 18 86/55 99 10/23/16 20:18 82 26 83/51 97 10/23/16 20:13 82 21 81/53 10/23/16 20:13 82 21 81/53 10/23/16 20:09 86 21 98/57 99 10/23/16 20:09 36.6 86 21 98/57 99 10/23/16 20:03 85 21 95/56 10/23/16 20:03 85 21 95/56 10/23/16 19:58 86 22 109/59 10/23/16 19:53 83 19 100/53 98 10/23/16 19:48 86 19 106/55 98 10/23/16 19:45 36.9 81 20 100/60 97 Mechanical Ventilator 60 10/23/16 19:43 36.6 87 24 100/60 99 10/23/16 19:43 87 24 100/60 99 10/23/16 19:38 88 26 99/58 10/23/16 19:38 88 26 99/58 10/23/16 19:35 37.8 89 20 109/55 94 Mechanical Ventilator 6.0 60 10/23/16 19:33 87 26 109/55 97 10/23/16 19:33 87 26 109/55 97 10/23/16 19:28 87 23 108/57 99 10/23/16 19:28 87 23 108/57 99 10/23/16 19:25 37.8 92 20 106/56 99 Mechanical Ventilator 60 10/23/16 19:23 89 23 106/59 99 10/23/16 19:23 89 23 106/59 99 10/23/16 19:18 90 21 108/58 98 10/23/16 19:18 90 21 108/58 98 10/23/16 19:15 37.8 92 20 101/56 99 Mechanical Ventilator 6.0 60 10/23/16 19:13 91 20 101/56 10/23/16 19:13 91 20 101/56 10/23/16 19:10 93 21 125/61 99 10/23/16 19:10 93 21 125/61 99 17 17:55 60 10/23/16 17:48 84 20 98/57 91 10/23/16 17:43 84 20 98/55 100 17 17:38 85 20 99/56 98 17 17:33 86 20 96/55 97 10/23/16 17:28 87 22 94/50 97 10/23/16 17:23 88 20 87/49 96 10/23/16 17:18 88 19 94/50 95 17 17:13 89 18 80/50 94 10/23/16 17:08 86 19 85/51 94 10/23/16 17:03 89 18 97/49 93 10/23/16 17:00 90 18 93 10/23/16 16:30 94 18 81/48 98 Mechanical Ventilator 80 10/23/16 16:00 60 10/23/16 16:00 106 18 116/61 97 Mechanical Ventilator 80 10/23/16 16:00 98 Mechanical Ventilator 80 10/23/16 15:45 103 18 96/50 97 Mechanical Ventilator 100 10/23/16 15:15 95 18 91/48 92 Mechanical Ventilator 100 10/23/16 15:05 87 22 77/41 86 10/23/16 15:00 94 11 123/102 93 Nasal Cannula 6.0 10/23/16 14:30 50 10/23/16 14:00 93 20 93 Nasal Cannula 6.0 10/23/16 13:40 37.7 110 21 117/63 98 Nasal Cannula 2.0 10/23/16 13:40 37.7 93 17 125/59 98 Nasal Cannula 6.0 10/23/16 13:23 106 97 10/23/16 13:13 93/58 10/23/16 13:10 100 Nasal Cannula 2.0 10/23/16 13:09 38.3 10/23/16 13:08 105 100 10/23/16 13:03 105 100 10/23/16 12:58 99/53 10/23/16 12:48 105 99 10/23/16 12:43 89/53 10/23/16 12:38 105 98 10/23/16 12:33 79/53 10/23/16 12:29 77/41 10/23/16 12:21 108 98 10/23/16 12:14 98/55 10/23/16 12:06 109 98 10/23/16 12:01 109 100 10/23/16 11:59 103/63 10/23/16 11:47 97/66 10/23/16 11:46 108 98/ 99 10/23/16 11:43 38.5 10/23/16 11:41 105 100 10/23/16 11:32 98 Nasal Cannula 2.0 10/23/16 11:29 111/65 10/23/16 11:26 109 96 10/23/16 11:21 108 97 10/23/16 11:13 109/55 10/23/16 11:06 117 96 10/23/16 10:58 124/57 10/23/16 10:55 123 10/23/16 10:54 39.4 10/23/16 10:51 114 98 10/23/16 10:46 115/56 10/23/16 10:35 96 Room Air 10/23/16 10:35 96 Room Air 10/23/16 10:33 101/48 10/23/16 10:10 39.6 132 20 95/53 96 Room Air General: Sedated and Intubated - does not awake to verbal or physical stimuli. HEENT: Normocephalic, Atraumatic Cardiovascular: Normal rate, regular rhythm, Paced, no murmurs or edema. No JVD , normal peripheral pulses. Respiratory: Decreased lung sounds in the bases. Ventilated. 20 respirations per min, peak flow 55l/min, 30% FiO2, 5 PEEP. Abdomen: Soft, no pulsatile masses. Extremities: RLE: amputation of 5th toe, no pedal edema, onychomycosis present. Some healing skin breakdown from knee to foot. LLE: Amputated at mid-shaft of tibia. Skin intact. RUE: hand is bandaged, multiple amputations present. LUE: Amputations of all but first and second digits. Skin: warm dry. Breakdown of skin on RLE as stated above. Diagnostics Laboratory Results Results Past 24 Hours Test 10/23/16 10:30 10/23/16 10:34 10/23/16 10:38 10/23/16 10:40 Range/Units White Blood Count 15.14 4.8-10.8 K/uL Red Blood Count 4.11 4.7-6.1 M/uL Hemoglobin 12.4 14.0-18.0 g/dL Hematocrit 35.3 42-52 % Mean Corpuscular Volume 85.9 80-100 fL Mean Corpuscular Hemoglobin 30.2 25-34 pg Mean Corpuscular Hemoglobin Concent 35.1 32-36 g/dl Platelet Count 190 130-400 K/uL Mean Platelet Volume 9.7 7.4-10.4 fL Neutrophils (%) (Auto) 94.4 % Lymphocytes (%) (Auto) 2.2 % Monocytes (%) (Auto) 2.4 % Eosinophils (%) (Auto) 0.0 % Basophils (%) (Auto) 0.1 % Neutrophils # (Auto) 14.29 1.4-6.5 K/uL Lymphocytes # (Auto) 0.33 1.2-3.4 K/uL Monocytes # (Auto) 0.37 0.11-0.59 K/uL Eosinophils # (Auto) 0.00 0-0.5 K/uL Basophils # (Auto) 0.01 0-0.2 K/uL RDW Standard Deviation 43.0 36.4-46.3 fL RDW Coefficient of Variation 13.6 11.5-14.5 % Immature Granulocyte % (Auto) 0.9 % Immature Granulocyte # (Auto) 0.14 0.00-0.02 K/uL Prothrombin Time 11.0 9.0-12.0 SECONDS Prothromb Time International Ratio 1.0 0.9-1.1 Activated Partial Thromboplast Time 31.0 21.0-31.0 SECONDS Partial Thromboplastin Ratio 1.2 Sodium Level 136 136-145 mmol/L Potassium Level 3.9 3.5-5.1 mmol/L Chloride Level 96 98-107 mmol/L Carbon Dioxide Level 28 21-32 mmol/L Anion Gap 12.0 17.0 16-25 mmol/L Blood Urea Nitrogen 54 7-18 mg/dl Creatinine 2.20 0.60-1.40 mg/dl Estimated GFR () 35.1 Estimated GFR (Non- 30.3 BUN/Creatinine Ratio 24.5 10-20 Random Glucose 153 70-99 mg/dl Calcium Level 9.6 8.5-10.1 mg/dl Magnesium Level 2.6 1.8-2.4 mg/dl Total Bilirubin 1.2 0.2-1 mg/dl Direct Bilirubin 0.4 0-0.2 mg/dl Aspartate Amino Transf (AST/SGOT) 45 15-37 U/L Alanine Aminotransferase (ALT/SGPT) 33 12-78 U/L Alkaline Phosphatase 152 45-117 U/L Total Creatine Kinase 464 39-308 U/L Creatine Kinase MB 1.0 0.5-3.6 ng/ml Creatine Kinase MB Ratio 0.2 0-3.0 Troponin I 0.259 0-0.045 ng/ml Total Protein 7.2 6.4-8.2 gm/dl Albumin 2.7 3.4-5.0 gm/dl Lipase 64 73-393 U/L Thyroid Stimulating Hormone (TSH) 0.708 0.300-4.500 uIu/ml Bedside Lactic Acid Venous 3.18 0.90-1.70 mmol/L Bedside Hemoglobin 11.9 14.0-18.0 g/dl Bedside Hematocrit 35 42-52 % Bedside Sodium 134 135-144 mEq/L Bedside Potassium 4.0 3.3-5.0 mEq/L Bedside Chloride 93 101-112 mEq/L Bedside Total CO2 29 24-31 mEq/l Bedside Blood Urea Nitrogen 52 7-18 mg/dl Bedside Creatinine 1.8 0.6-1.3 mg/dl Bedside Glucose (other) 158 70-99 mg/dl Bedside Ionized Calcium (Tara) 1.15 1.12-1.32 mmol/l Influenza Type A Antigen Neg for Influ A NEG Influenza Type B Antigen Neg for Influ B NEG Test 10/23/16 11:00 10/23/16 13:26 10/23/16 16:15 10/23/16 16:17 Range/Units Urine Color DK YELLOW Urine Appearance CLEAR CLEAR Urine pH 5.5 4.5-7.5 Urine Specific [place] 1.019 1.000-1.030 Urine Protein 2+ NEG Urine Glucose (UA) 1+ NEG Urine Ketones NEG NEG Urine Occult Blood 2+ NEG Urine Nitrite NEG NEG Urine Bilirubin NEG NEG Urine Urobilinogen NEG NEG Urine Leukocyte Esterase NEG NEG Urine WBC (Auto) 1-5 0-5 /hpf Urine RBC (Auto) 0-4 0-4 /hpf Urine Hyaline Casts (Auto) 1-5 0-5 /lpf Urine Epithelial Cells (Auto) 10-20 0-5 /lpf Urine Bacteria (Auto) NEG NEG Urine Yeast (Auto) NONE PRSENT Random Cortisol 53.92 mcg/dl Lactic Acid Level 1.0 0.4-2.0 mmol/L Bedside Glucose 56 70-99 mg/dl Test 10/23/16 16:47 10/23/16 17:55 10/23/16 20:12 10/23/16 20:27 Range/Units Bedside Glucose 123 70-99 mg/dl Procalcitonin 8.86 0-0.5 ng/mL Lactic Acid Level 0.9 0.4-2.0 mmol/L Total Creatine Kinase 386 39-308 U/L Creatine Kinase MB 2.0 0.5-3.6 ng/ml Creatine Kinase MB Ratio 0.5 0-3.0 Troponin I 0.249 0-0.045 ng/ml Bedside Glucose (other) 81 70-99 mg/dl Test 10/23/16 22:09 10/23/16 22:39 10/24/16 00:15 10/24/16 04:26 Range/Units Blood Gas Sample Site Art Line Bedside Blood Gas pH (LAB) 7.42 7.35-7.45 Bedside Blood Gas pCO2 (LAB) 45 35-46 mmHg Bedside Blood Gas pO2 (LAB) 188 80-95 mmHg Bedside Blood Gas HCO3 (LAB) 29 19-24 meq/L Bedside Blood Gas Total CO2 30 24-31 mEq/l Bedside Blood Gas Base Excess (LAB) 4.0 -9-1.8 meq/L Bedside Blood Gas O2 Saturation 100.0 90-95 % Brent Test NA Oxygen Delivery Device Ventilator Bedside Oxygen Rate (breaths/min) 20 Blood Gas Minute Ventilation 16.7 Bedside FiO2 60 % Blood Gas Tidal Volume 550 Blood Gas PEEP 5 White Blood Count 12.34 4.8-10.8 K/uL Red Blood Count 3.67 4.7-6.1 M/uL Hemoglobin 11.1 14.0-18.0 g/dL Hematocrit 32.3 42-52 % Mean Corpuscular Volume 88.0 80-100 fL Mean Corpuscular Hemoglobin 30.2 25-34 pg Mean Corpuscular Hemoglobin Concent 34.4 32-36 g/dl RDW Standard Deviation 44.9 36.4-46.3 fL RDW Coefficient of Variation 14.0 11.5-14.5 % Platelet Count 153 130-400 K/uL Mean Platelet Volume 9.3 7.4-10.4 fL Sodium Level 138 136-145 mmol/L Potassium Level 4.2 3.5-5.1 mmol/L Chloride Level 101 98-107 mmol/L Carbon Dioxide Level 29 21-32 mmol/L Anion Gap 8.0 3-11 mmol/L Blood Urea Nitrogen 57 7-18 mg/dl Creatinine 2.00 0.60-1.40 mg/dl Est Creatinine Clear Calc Drug Dose 49.8 ml/min Estimated GFR () 39.4 Estimated GFR (Non- 34.0 BUN/Creatinine Ratio 28.3 10-20 Random Glucose 89 70-99 mg/dl Lactic Acid Level 1.2 0.4-2.0 mmol/L Calcium Level 8.2 8.5-10.1 mg/dl Phosphorus Level 4.1 2.5-4.9 mg/dl Magnesium Level 2.6 1.8-2.4 mg/dl Pro-B-Type Natriuretic Peptide 71415 0-900 pg/ml Bedside Glucose 96 96 70-99 mg/dl Test 10/24/16 04:34 10/24/16 08:13 10/24/16 08:46 Range/Units White Blood Count 11.41 4.8-10.8 K/uL Red Blood Count 3.41 4.7-6.1 M/uL Hemoglobin 10.2 14.0-18.0 g/dL Hematocrit 29.1 42-52 % Mean Corpuscular Volume 85.3 80-100 fL Mean Corpuscular Hemoglobin 29.9 25-34 pg Mean Corpuscular Hemoglobin Concent 35.1 32-36 g/dl Platelet Count 140 130-400 K/uL Mean Platelet Volume 9.1 7.4-10.4 fL Neutrophils (%) (Auto) 82.6 % Lymphocytes (%) (Auto) 8.2 % Monocytes (%) (Auto) 8.2 % Eosinophils (%) (Auto) 0.4 % Basophils (%) (Auto) 0.1 % Neutrophils # (Auto) 9.42 1.4-6.5 K/uL Lymphocytes # (Auto) 0.94 1.2-3.4 K/uL Monocytes # (Auto) 0.93 0.11-0.59 K/uL Eosinophils # (Auto) 0.05 0-0.5 K/uL Basophils # (Auto) 0.01 0-0.2 K/uL RDW Standard Deviation 43.4 36.4-46.3 fL RDW Coefficient of Variation 14.0 11.5-14.5 % Immature Granulocyte % (Auto) 0.5 % Immature Granulocyte # (Auto) 0.06 0.00-0.02 K/uL Red Blood Cell Morphology Unremarkable Sodium Level 140 136-145 mmol/L Potassium Level 4.3 3.5-5.1 mmol/L Chloride Level 103 98-107 mmol/L Carbon Dioxide Level 29 21-32 mmol/L Anion Gap 8.0 3-11 mmol/L Blood Urea Nitrogen 54 7-18 mg/dl Creatinine 2.10 0.60-1.40 mg/dl Est Creatinine Clear Calc Drug Dose 47.4 ml/min Estimated GFR () 37.2 Estimated GFR (Non- 32.1 BUN/Creatinine Ratio 25.7 10-20 Random Glucose 88 70-99 mg/dl Estimated Average Glucose 229 mg/dl Hemoglobin A1c 9.6 4.5-5.6 % Calcium Level 8.0 8.5-10.1 mg/dl Magnesium Level 2.5 1.8-2.4 mg/dl Total Bilirubin 1.1 0.2-1 mg/dl Direct Bilirubin 0.5 0-0.2 mg/dl Aspartate Amino Transf (AST/SGOT) 42 15-37 U/L Alanine Aminotransferase (ALT/SGPT) 30 12-78 U/L Alkaline Phosphatase 107 45-117 U/L Total Creatine Kinase 296 39-308 U/L Creatine Kinase MB 1.4 0.5-3.6 ng/ml Creatine Kinase MB Ratio 0.5 0-3.0 Troponin I 0.237 0-0.045 ng/ml Pro-B-Type Natriuretic Peptide 9284 0-900 pg/ml Total Protein 5.9 6.4-8.2 gm/dl Albumin 2.1 3.4-5.0 gm/dl Bedside Glucose 116 70-99 mg/dl Microbiology Results 10/24/16 Blood Culture, Received Pending 10/24/16 Blood Culture, Received Pending 10/23/16 Blood Culture - Preliminary, Resulted Gram Positive Cocci 10/23/16 Blood Culture - Preliminary, Resulted Gram Positive Cocci 10/23/16 MRSA DNA Surveillance Screen - Final, Complete Specimen Negative for MRSA by DNA Probe 10/23/16 Urine Culture, Received Pending 10/23/16 Gram Stain, Received Pending 10/23/16 Bacterial Culture, Received Pending 10/23/16 Gram Stain, Resulted Pending 10/23/16 Wound Culture - Preliminary, Resulted Staphylococcus Aureus Alpha Strep. Not Enterococcus Diagnostic Radiology RIGHT HAND MIN 3 VIEWS ROUTINE CLINICAL HISTORY: 3rd digit infection, old amp of thumb and 2nd digit Right COMPARISON: CT dated 01/07/2016 DISCUSSION: Operative changes consistent with amputation of the bulk of the distal phalanx of the third finger. Amputation of the phalanges and distal aspects second metacarpal. Partial amputation distal phalanx of the thumb. Mild nonspecific soft tissue edema. No well-defined evidence for osteomyelitis. Potential air containment within the soft tissues adjacent to the distal phalanx right third finger. There is no evidence for soft tissue swelling. IMPRESSION: 1. Postoperative changes as noted. 2. No acute bony abnormality. 3. Soft tissue edematous change primarily about the residual phalanges of the third finger. There appears to be a moderate degree of soft tissue gas. 4. The appearance is consistent with that of a gas-forming infection and/or cellulitis of the third finger. 5. No evidence for osteomyelitis Electronically signed by: Tyrone Shi M.D. 10/23/2016 10:49 AM Dictated Date/Time: 10/23/2016 10:46 AM CHEST ONE VIEW PORTABLE CLINICAL HISTORY: Respiratory failure COMPARISON STUDY: 10/23/2016 FINDINGS: The cardiac and mid sternal contours remain stable. There is a left subclavian pacer/defibrillator present. There is a right internal jugular central venous catheter present. There is an endotracheal tube 4 cm above the aga. There is a nasogastric tube with its tip projected over the gastric cardia. There is no focal pulmonary consolidation. There is mild central vascular prominence.[ IMPRESSION: Mild central vascular prominence. No evidence of lobar consolidation. Endotracheal tube 4 cm above the aga. Electronically signed by: Nasir Butts M.D. 10/24/2016 7:09 AM Dictated Date/Time: 10/24/2016 7:07 AM Impression Assessment and Plan Neuro: * Altered Mental Status * Presented to ED via EMS for AMS. * Likely sepsis related. * Currently sedated on 4 mg of Versed and Fentanyl 50 mcgs at 10 ml/hr. * Today, will decrease sedation in order to extubate. Respiratory * Currently on ventilator - 20 bpm, 55 L/min peak flow, 30% FiO2, 5 PEEP. * Will attempt to extubate today. Cardiovascular * Hypotension * Remains slightly hypotensive today 100s/50s - currently off pressors. * Likely bp remains low dt sedation. Will decrease sedation today. * Elevated Troponin * Trending down. Today: 0.237 down from 0.259 yesterday. * Continue to trend downward. * Elevated BNP * Trending down, Today 9284 down from 11,118 yesterday. * Continue to monitor daily. ID * Septic Shock vs SIRS * Likely 2/2 necrotic 3rd right finger - which was surgically amputated. * Blood cxs positive for Gram + cocci - await wound and urine cxs. * Procalcitonin was 8 on admission. Lactate was 3.1. * WBCs down today 11.4 from 15.1 yesterday. * Continue Zosyn, Clindamycin and Daptomycin. * Tylenol PRN for fever * ID consult Abdomen * OG tube in place. * LFTs mildly elevated, AST 42, ALT 30. Continue to monitor. * Hyperbilirubinemia - Total Hipolito 1.1, Direct Bili 0.5 - continue to monitor Renal * Acute kidney injury * IVF maintenence dose 0.5 NSS, 0.5 KCL at 75 ml/hr * Newby Catheter in place. Strict I's and O's. Hematology * H&H slightly decreased today - likely dilutional in nature. Continue to monitor daily. Endocrine * Continue to monitor blood sugars per nursing protocol. * Glycemic consult placed, pharmacy to follow. Lines * Left axillary arterial line * Right IJ line with triple lumen catheter * Newby in place. * OG tube. Level of Care Critical Care Resuscitation Status FULL RESUSCITATION DVT Prophylaxis unfractionated heparin SQ
[2016-10-24] MEDS ORDERED: FENTANYL CITRATE INJ 50 MCG/1 ML 2 ML VIAL IV PRN (10:15)
[2016-10-24] MEDS: INSULIN DETEMIR FLEXPEN/FLEX TOUCH 100 UNITS/ML 3ML SC SCH ×2 (11:21→20:58)
--- NOTE | 2016-10-24 13:52 | Pharmacy Progress Note ---
Glycemic: Assessment & Plan Date of Service Oct 24, 2016. Assessment & Plan Outpatient Anti-diabetic Regimen: * Levemir 80 units SC BID * Novolin R 3 units SC BID * Glyburide 5 mg po daily * HbA1c: 9.6% (10/24/16) Risk Factors for Insulin Resistance: * Infection: Septic shock 2/2 finger cellulitis * Recent Surgery: POD #1 - finger amputation * Diet: NPO * Mechanical Ventilation: Yes ASSESSMENT: * ADA & AACE recommend a goal blood sugar range 140-180 mg/dl for the majority of critically ill & non-critically ill patients. However, more stringent targets may be selected in individual cases. 10/24/16 * 65 yo M with significant stressors admitted to ICU for septic shock 2/2 finger cellulitis. Patient is POD #1 s/p amputation of gangrenous finger. * Patient remains intubated post-op. * Patient was hypoglycemic yesterday afternoon. Suspect that this is d/t pt taking his basal insulin in the morning and then being NPO for OR. Patient's outpatient regimen is heavily weighted towards basal, so expect hypoglycemia to result during NPO periods. * Patient was given a significantly reduced dose of Levemir (25% of normal home dose) this morning, and further dosing will be guided by BSGs. * Will continue q4h accu-checks overnight to ensure that patient's BSGs remain stable. PLAN FOR INPATIENT GLYCEMIC CONTROL: * Holding outpatient oral diabetes medications * Basal insulin with Levemir SQ BID based on BS units for BSG < 120 mg/dL 40 units for BSG 120-199 mg/dL 50 units for BSG 200 mg/dL or greater * Correctional Insulin with NOVOLOG per scale Q4hrs while NPO * Goal Range: Low 140 mg/dL - High 180 mg/dL * Correction Factor: 10 mg/dL/unit * Nutritional / Prandial insulin per carb ratio of 1 unit per 3 grams CHO consumed * Please note that the plan above was derived based on current level of insulin resistance and hospital stress. These recommendations are appropriate for inpatient admission only. Plan of care upon discharge will need to be reassessed to avoid potential outpatient hypo/hyperglycemia. Thank you.
[2016-10-24] MEDS: VASOPRESSIN INJ 50 UNITS in SODIUM CHLORIDE 0.9% 500ML 500 ML IV SCH (13:54)
[2016-10-24] MEDS ORDERED: SODIUM CHLORIDE 0.9% 500ML 500 ML IV SCH (14:00)
--- NOTE | 2016-10-24 14:43 | CRITICAL CARE PROGRESS NOTE ---
DATE: 10/24/2016 HISTORY OF PRESENT ILLNESS: This is a 65-year-old gentleman admitted to the intensive care unit after being seen in the Emergency Department for altered mental status. He has multiple medical problems such as nonischemic cardiomyopathy, ejection fraction 15-20%, coronary artery disease, hypertension, diabetes mellitus with multiple amputations of his fingers as well as a below the knee amputation. In the Emergency Department, his right middle finger was noted to be erythematous and an x-ray showed some gas. He was admitted to the ICU where he was intubated. The lines were placed and he went to the operating room for a right middle finger amputation at the MCP joint level as well as a right hand incision and drainage. This was done by Dr. Henriquez. He has been intubated since that time. He received clindamycin, daptomycin and Zosyn and his care was discussed today on multidisciplinary rounds. He has grown staph aureus and blood cultures from yesterday and a wound culture is showing Staphylococcus aureus as well as alpha strep, not enterococcus. The incision site culture preliminarily is growing gram negative bacilli, staph aureus and a streptococcus species. He was sedated this morning with Versed and fentanyl, which has been stopped for a sedation vacation. He has not had a bowel movement since admission. MEDICATIONS: Acetaminophen, aspirin, clindamycin, daptomycin, Pepcid, fentanyl, subcutaneous heparin, insulin sliding scale, Levemir, Floranex, Versed, Zosyn, half normal saline with 20 mEq of potassium per liter. PHYSICAL EXAMINATION: VITAL SIGNS: Maximum temperature 39.6, current temperature 38.8; heart rate 99, respiratory rate 16-20, blood pressure 95-100/50s-60s. Oxygen saturation 96%. Present ventilator settings - CPAP 5/5. Earlier today, assist control rate 18, tidal volume 550, FIO2 30%, PEEP 5. A 24-hour fluid balance positive 786 mL. GENERAL: He was sedated when I examined him and unresponsive to sternal rub. HEENT: Pupils were equal and round bilaterally. Endotracheal tube in place. LUNGS: Coarse bilaterally. No rales, rhonchi or wheezes. HEART: Regular rate and rhythm. ABDOMEN: Obese, firm with hypoactive bowel sounds. No organomegaly appreciated. EXTREMITIES: Warm. He has a left below the knee amputation. His right hand and wrist is dressed with gauze and is clean, dry and intact. He has multiple amputated fingers on the left hand. SKIN: Significant for erythema of both lower extremities. It is more demarcated just below the knee of the left leg. The right lower extremity has some crusting, flaking and wounds that are possibly abrasions. LABORATORY DATA: White blood cell count 11.4, hemoglobin 10.2, hematocrit 29.1, platelets 140, lactic acid 0.9. Sodium 140, potassium 4.3, chloride 103, CO2 29, BUN 54, creatinine 2.1, hemoglobin A1c 9.6, magnesium 2.5, total bilirubin 1.1, direct bilirubin 0.05, AST 42. Troponin 0.237. ProBNP 9284, albumin 2.1. Procalcitonin 8.86. IMAGING: Portable chest x-ray from this morning shows some mild central vascular prominence. No consolidation. MICROBIOLOGY: As previously discussed. Follow up blood cultures October 24, pending. IMPRESSION: 1. Severe sepsis secondary to gangrenous right third middle finger, status post amputation. 2. Acute respiratory failure secondary to metabolic encephalopathy. 3. Metabolic encephalopathy. 4. Staph aureus bacteremia. 5. Acute kidney injury likely secondary to sepsis. 6. Diabetes mellitus with elevated hemoglobin A1c. 7. History of nonischemic cardiomyopathy, ejection fraction 15-20%. Echocardiogram pending. 8. History of biventricular AICD placement. 9. Mild elevation in troponin, likely secondary to demand ischemia. PLAN: NEUROLOGIC: Continue to hold sedatives. Once he is awake, I think he can be extubated. PULMONARY: Keep on CPAP 5/5 until he is awake enough to extubate. If he is not able to be extubated today, place on assist control overnight. CARDIOVASCULAR: Bolus 500 mL saline now and continue IV fluids. Await echocardiogram result. RENAL: Avoid nephrotoxins and appropriately dose antibiotics. Replete electrolytes as needed. INFECTIOUS DISEASE: Infectious disease services' recommendations are very much appreciated. Continue clindamycin, daptomycin and Zosyn. GASTROINTESTINAL: Hold off on tube feeds for now. If he is not extubated by tomorrow, begin trickle feeds. Pepcid was added for GI prophylaxis today. HEME: Continue heparin for DVT prophylaxis. Endo: Glycemic consult and increase sliding scale insulin. Critical care time 60 minutes. MTDD
[2016-10-24] MEDS ORDERED: NURSING DECISION MEDICATION ORDER SCH (15:30)
[2016-10-24] MEDS ORDERED: PERFLUTREN LIPID MICROSPHERE (DEFINITY) IV ONE (15:52)
--- NOTE | 2016-10-24 18:10 | PROGRESS NOTE ---
DATE: 10/24/2016 SUBJECTIVE: The patient is seen at bedside today in the ICU. He is arousable, but sedated, currently on CPAP. OBJECTIVE: Right hand exam shows well healing surgical incision, has not seen any gross infection. He has no erythema. He has no purulent drainage. A small amount of serous drainage is seen. No streaking erythema. ASSESSMENT: 1. Postop day 1 amputation, right middle finger. 2. Sepsis. PLAN: At this point in time, his wound is stable and he does appear to have resolving infection in the hand. We will continue antibiotics as per infectious disease, continue care as per critical care medicine. I removed the packing today, may do dry sterile dressing changes once a day or as needed. Upon discharge he should follow up with me in the office in approximately 3 weeks for suture removal.
[2016-10-24] MEDS ORDERED: NOREPINEPHRINE BIT INJ 8 MG in DEXTROSE 5% 500ML 500 ML IV PRN (19:15)
--- NOTE | 2016-10-24 20:37 | Progress Note ---
Medicine Progress Note Date & Time of Visit: Oct 24, 2016 at 20:12. Subjective Pt was seen and examined on vent support, sedation off this morning vs stable Objective Last 8 Hrs Date Time Temp Pulse Resp B/P Pulse Ox O2 Delivery O2 Flow Rate FiO2 10/24/16 18:03 37.8 89 20 94/50 96 CPAP 30 10/24/16 17:42 30 10/24/16 16:00 30 10/24/16 16:00 CPAP 30 Mechanical Ventilator 10/24/16 16:00 38.1 95 26 94/53 95 CPAP 30 10/24/16 14:20 30 10/24/16 14:02 38.3 97 22 96/50 95 CPAP 30 Physical Exam: General- sedated on vent support Head- atraumatic Eyes- PERRL, EOMI ENT- intubated on vent Neck- supple, no JVD Lungs- coarse bs Heart- regular rhythm Abdomen- normal bowel sounds Extremities- Left BKA, right hand dressing due to right middle finger amputation Neuro- sedated Skin- warm & dry Laboratory Results: Last 24 Hours Test 10/23/16 20:27 10/23/16 22:09 10/23/16 22:39 10/24/16 00:15 Bedside Glucose (other) 81 mg/dl Blood Gas Sample Site Art Line Bedside Blood Gas pH (LAB) 7.42 Bedside Blood Gas pCO2 (LAB) 45 mmHg Bedside Blood Gas pO2 (LAB) 188 mmHg Bedside Blood Gas HCO3 (LAB) 29 meq/L Bedside Blood Gas Total CO2 30 mEq/l Bedside Blood Gas Base Excess (LAB) 4.0 meq/L Bedside Blood Gas O2 Saturation 100.0 % Brent Test NA Oxygen Delivery Device Ventilator Bedside Oxygen Rate (breaths/min) 20 Blood Gas Minute Ventilation 16.7 Bedside FiO2 60 % Blood Gas Tidal Volume 550 Blood Gas PEEP 5 White Blood Count 12.34 K/uL Red Blood Count 3.67 M/uL Hemoglobin 11.1 g/dL Hematocrit 32.3 % Mean Corpuscular Volume 88.0 fL Mean Corpuscular Hemoglobin 30.2 pg Mean Corpuscular Hemoglobin Concent 34.4 g/dl RDW Standard Deviation 44.9 fL RDW Coefficient of Variation 14.0 % Platelet Count 153 K/uL Mean Platelet Volume 9.3 fL Sodium Level 138 mmol/L Potassium Level 4.2 mmol/L Chloride Level 101 mmol/L Carbon Dioxide Level 29 mmol/L Anion Gap 8.0 mmol/L Blood Urea Nitrogen 57 mg/dl Creatinine 2.00 mg/dl Est Creatinine Clear Calc Drug Dose 49.8 ml/min Estimated GFR () 39.4 Estimated GFR (Non- 34.0 BUN/Creatinine Ratio 28.3 Random Glucose 89 mg/dl Lactic Acid Level 1.2 mmol/L Calcium Level 8.2 mg/dl Phosphorus Level 4.1 mg/dl Magnesium Level 2.6 mg/dl Pro-B-Type Natriuretic Peptide 83398 pg/ml Bedside Glucose 96 mg/dl Test 10/24/16 04:26 10/24/16 04:34 10/24/16 08:13 10/24/16 08:46 Bedside Glucose 96 mg/dl 116 mg/dl White Blood Count 11.41 K/uL Red Blood Count 3.41 M/uL Hemoglobin 10.2 g/dL Hematocrit 29.1 % Mean Corpuscular Volume 85.3 fL Mean Corpuscular Hemoglobin 29.9 pg Mean Corpuscular Hemoglobin Concent 35.1 g/dl Platelet Count 140 K/uL Mean Platelet Volume 9.1 fL Neutrophils (%) (Auto) 82.6 % Lymphocytes (%) (Auto) 8.2 % Monocytes (%) (Auto) 8.2 % Eosinophils (%) (Auto) 0.4 % Basophils (%) (Auto) 0.1 % Neutrophils # (Auto) 9.42 K/uL Lymphocytes # (Auto) 0.94 K/uL Monocytes # (Auto) 0.93 K/uL Eosinophils # (Auto) 0.05 K/uL Basophils # (Auto) 0.01 K/uL RDW Standard Deviation 43.4 fL RDW Coefficient of Variation 14.0 % Immature Granulocyte % (Auto) 0.5 % Immature Granulocyte # (Auto) 0.06 K/uL Red Blood Cell Morphology Unremarkable Sodium Level 140 mmol/L Potassium Level 4.3 mmol/L Chloride Level 103 mmol/L Carbon Dioxide Level 29 mmol/L Anion Gap 8.0 mmol/L Blood Urea Nitrogen 54 mg/dl Creatinine 2.10 mg/dl Est Creatinine Clear Calc Drug Dose 47.4 ml/min Estimated GFR () 37.2 Estimated GFR (Non- 32.1 BUN/Creatinine Ratio 25.7 Random Glucose 88 mg/dl Estimated Average Glucose 229 mg/dl Hemoglobin A1c 9.6 % Calcium Level 8.0 mg/dl Magnesium Level 2.5 mg/dl Total Bilirubin 1.1 mg/dl Direct Bilirubin 0.5 mg/dl Aspartate Amino Transf (AST/SGOT) 42 U/L Alanine Aminotransferase (ALT/SGPT) 30 U/L Alkaline Phosphatase 107 U/L Total Creatine Kinase 296 U/L Creatine Kinase MB 1.4 ng/ml Creatine Kinase MB Ratio 0.5 Troponin I 0.237 ng/ml Pro-B-Type Natriuretic Peptide 9284 pg/ml Total Protein 5.9 gm/dl Albumin 2.1 gm/dl Lactic Acid Level 0.9 mmol/L Test 10/24/16 12:12 10/24/16 15:57 10/24/16 19:41 Bedside Glucose 152 mg/dl 151 mg/dl 163 mg/dl Date/Time Source Procedure Growth Status 10/24/16 04:37 Blood Blood Culture Pending Received 10/24/16 04:34 Blood Blood Culture Pending Received Assessment & Plan Severe sepsis Possible from the necrotic and possible gas gangrenous of middle right finger. s/p right middle finger amputation VS stable, does not required any pressors ID on board and recommends to Continue zosyn, dapto and clindamycin for 48hrs for potential antitoxin agents WBC trending down repeat lactic acid wnl continue monitor in the ICU Acute respiratory failure secondary to metabolic encephalopathy On vent support manageg by the ICU team Sedation has been off since this morning once awake, the icu team planned to extubated him Acute renal failure possible related to sepsis baseline creatinine is around 1.3-1.4 creatine is worsening 2.1 today continue holding lisinopril and furosemide Continue gentle hydration will monitor for fluid overload avoid nephrotoxic agents monitor bmp History of nonischemic cardiomyopathy ejection fraction around 15-20%. continue aspirin statin on hold due to daptomycin Monitor closely Elevation troponin mostly due to demand ischemia from sepsis troponin trending down EKG shown no significant ST changes echo pending History of diabetes recent hba1c 9.6 (10/24/16) on insulin coverage pharmacy consult for glycemic control continue monitor BS Dyslipidemia. continue holding statin as patient on daptomycin. HTN BP meds on hold can resume when BP starts to elevate Stable Hypothyroidism IV Synthroid DVT px SCDs heparin subQ. Consultants: [facility] Current Inpatient Medications: Current Inpatient Medications Medications (Trade) Dose Ordered Sig/Ifeanyi Route Start Time Stop Time Status Last Admin Dose Admin Aspirin (Ecotrin Tab) 81 mg DAILY PO 10/24/16 09:00 11/23/16 08:59 10/24/16 09:33 81 MG Lactobacillus Acidophilus (Floranex Tab) 1 tab TID PO 10/23/16 14:00 11/22/16 13:59 10/24/16 14:35 1 TAB Sertraline HCl 100 mg 100 mg DAILY PO 10/24/16 09:00 11/23/16 08:59 10/24/16 09:32 100 MG Piperacillin Sod/ Tazobactam Sod 4.5 gm/Dextrose 120 ml @ 30 mls/hr Q8H IV 10/23/16 16:00 11/02/16 15:59 10/24/16 15:54 30 MLS/HR Clindamycin Phosphate 600 mg/ Dextrose 54 ml @ 100 mls/hr Q8H IV 10/23/16 20:00 10/30/16 19:59 10/24/16 20:00 100 MLS/HR Daptomycin/Sodium Chloride (Cubicin IV/Nss 50ml) 65 ml @ 100 mls/hr DAILY@0600 IV 10/24/16 06:00 11/02/16 05:59 10/24/16 06:19 100 MLS/HR Insulin Detemir (Levemir Flexpen/ FlexTouch) BID SC 10/23/16 21:00 11/22/16 20:59 10/24/16 11:21 20 UNIT Insulin Aspart (novoLOG ASPART) SLIDING SCALE G... Q4 SC 10/23/16 16:00 11/22/16 15:59 Miscellaneous Information (Consult Glycemic Management Pharmacy) 1 ea UD PRN N/A 10/23/16 14:30 11/22/16 14:29 Heparin Sodium (Porcine) (Heparin Sq 5000 Unit/0.5ml) 5,000 unit Q8 SQ 10/23/16 14:00 11/22/16 13:59 10/24/16 13:56 5,000 UNIT Piperacillin Sod/ Tazobactam Sod (Consult) 1 ea UD PRN N/A 10/23/16 14:30 11/22/16 14:29 Clindamycin Phosphate 1 ea 1 ea UD PRN N/A 10/23/16 14:30 11/22/16 14:29 Midazolam HCl 250 ml @ 0 mls/hr Q0M IV 10/23/16 14:28 11/22/16 14:27 10/23/16 16:27 0 MLS/HR Fentanyl Citrate (Fentanyl Drip 1250MCG/250 Nss) 250 ml @ 0 mls/hr Q0M IV 10/23/16 14:30 11/06/16 14:29 10/23/16 16:27 10 MLS/HR Daptomycin 1 ea 1 ea UD PRN N/A 10/23/16 15:30 11/22/16 15:29 Potassium Chloride/Sodium Chloride 1,000 ml @ 75 mls/hr [id number] IV 10/23/16 22:15 11/22/16 22:14 10/24/16 11:22 75 MLS/HR Acetaminophen 650 mg/Empty Bag 65 ml @ 260 mls/hr Q6H PRN IV 10/24/16 00:45 11/23/16 00:44 10/24/16 00:47 260 MLS/HR Famotidine/ Dextrose (Pepcid IV Inj/ D5 100ml) 102 ml @ 204 mls/hr Q12H IV 10/24/16 09:00 11/23/16 08:59 10/24/16 09:32 204 MLS/HR Fentanyl Citrate (Fentanyl Inj) 50 mcg Q2H PRN IV 10/24/16 10:15 11/07/16 10:14 Multi-Ingredient Ointment 1 appln 1 appln BID EXT 10/24/16 21:00 11/23/16 20:59 Norepinephrine Bitartrate/ Dextrose (Levophed Inj/ D5W 500ml) 508 ml @ 0 mls/hr Q0M PRN IV 10/24/16 19:15 11/23/16 19:14 10/24/16 19:22 45 MLS/HR
[2016-10-24] MEDS: EUCERIN CR 120 GM JAR EXT SCH (20:56)
[2016-10-25] VITALS (12 sets, daily range): BP systolic 115–142; BP diastolic 53–114; PULSE 76–95; TEMP 37.3–38.4; O2SAT 92–99
[2016-10-25] MEDS: INSULIN ASPART 100 UNITS/ML 3 ML PEN SC SCH ×7 (00:01→23:58)
[2016-10-25] MEDS: SODIUM CHLOR 0.45% + 20MEQ KCL 1,000 ML IV SCH (00:52)
[2016-10-25] MEDS: CLINDAMYCIN IV 600 MG in DEXTROSE 5% ADD-VANTAGE 50ML 50 ML IV SCH ×2 (03:56→11:51)
[2016-10-25 06:03] LABS: BASO % 0.2 %; BASO ABS # 0.03 K/uL (0-0.2); COMPLETE YES; EOS % 1.3 %; HEMATOCRIT 29.9 % (42-52); IG% 1.1 %; LYMPH % 9.7 %; LYMPH ABS # 1.16 K/uL (1.2-3.4); MEAN CELL VOLUME 87.7 fL (80-100); MEAN CORPUSCULAR HEMOGLOBIN 29.9 pg (25-34); MEAN CORPUSCULAR HGB CONC 34.1 g/dl (32-36); MEAN PLATELET VOLUME 10.1 fL (7.4-10.4); MONO % 7.6 %; NEUT % 80.1 %; PLATELET COUNT 173 K/uL (130-400); RED BLOOD COUNT 3.41 M/uL (4.7-6.1); WHITE BLOOD COUNT 12.02 K/uL (4.8-10.8)
[2016-10-25] MEDS: DAPTOmycin IV 750 MG in SODIUM CHLORIDE 0.9% 50ML 50 ML IV SCH (06:11)
[2016-10-25] MEDS: HEPARIN SOD 5000 UNIT/0.5 ML CARP SQ SCH ×3 (06:12→21:02)
[2016-10-25 06:42] LABS: CALCIUM 8.2 mg/dl (8.5-10.1); CREATININE 2.1 mg/dl (0.60-1.40); MAGNESIUM 2.9 mg/dl (1.8-2.4); POTASSIUM 4.1 mmol/L (3.5-5.1)
--- NOTE | 2016-10-25 07:52 | DIAGNOSTIC IMAGING REPORT ---
CHEST ONE VIEW PORTABLE CLINICAL HISTORY: Respiratory failure COMPARISON STUDY: 10/24/2016 FINDINGS: There is a left subclavian implantable pacer/defibrillator present. There is a nasogastric tube which passes in the stomach. There is a right internal jugular central venous catheter. There is an endotracheal tube positioned 6 cm above the aga. The heart is mildly enlarged. There is mild pulmonary vascular congestion.[ IMPRESSION: Persistent mild pulmonary vascular congestion. No evidence of lobar consolidation. Endotracheal tube 6 cm above the aga. Electronically signed by: Nasir Butts M.D. 10/25/2016 7:51 AM Dictated Date/Time: 10/25/2016 7:50 AM
[2016-10-25] MEDS: ASPIRIN 81 MG ECTAB PO SCH (08:39)
[2016-10-25] MEDS: FAMOTIDINE IV INJ 20 MG in DEXTROSE 5% 100ML 100 ML IV SCH ×2 (08:39→20:57)
[2016-10-25] MEDS: PIPERACILL/TAZOBAC IV 4.5 GM in DEXTROSE 5% 100ML 100 ML IV SCH ×3 (08:39→23:58)
[2016-10-25] MEDS: LACTOBACILLUS ACIDOPHILUS (FLORANEX) TAB PO SCH ×3 (08:40→20:56)
[2016-10-25] MEDS: SERTRALINE HCL 100 MG TAB PO SCH (08:40)
[2016-10-25] MEDS: EUCERIN CR 120 GM JAR EXT SCH ×2 (08:43→20:57)
[2016-10-25] MEDS: INSULIN DETEMIR FLEXPEN/FLEX TOUCH 100 UNITS/ML 3ML SC SCH ×2 (09:14→21:00)
--- NOTE | 2016-10-25 09:16 | ECHOCARDIOGRAM REPORT ---
*NOTICE TO RECEIVING LIBERTARIAN AGENCY This information is strictly Confidential and protected under [place] law. [place] law prohibits you from making any further disclosure of this information unless further disclosure is expressly permitted by the written consent of the person to whom it pertains or is authorized by law. A general authorization for the release of medical or other information is not sufficient for this purpose. Hospital accepts no responsibility if the information is made available to any other person, INCLUDING THE PATIENT. Interpretation Summary * Name: LUZ CRUZ Study Date: 10/24/2016 03:23 PM BP: 102/56 mmHg * Patient Location: .MSICU\S\E104\S\1 HR: 98 * : 1950 (M/d/yyyy) Gender: Male Height: 72 in * Age: 65 yrs Ethnicity: [place] Weight: 269 lb * Ordering Physician: Dimtiry Montelongo * Performed By: Doris Shelton RDCS * * Reason For Study: Septic shock with hypotension requiring vasopressors, elevated troponin * BSA: 2.4 m2 * The study was technically limited. * -- Conclusions -- * Compared to the prior study dated 12/11/15, there is persistent severe LV systolic dysfunction. Procedure Details * A complete two-dimensional transthoracic echocardiogram was performed (2D, M-mode, Doppler and color flow Doppler). * A contrast injection of Definity was performed to improve assessment of LV function. * Contrast was injected into an intravenous site in the central line. * One vial of Definity ultrasound contrast was diluted in normal saline to a total volume of 10 ml. A total of '4' ml of solution was administered during imaging. * Lot # [id number] of Definity utilized for procedure. * Expiration date SEP 21. * The attending nurse who injected the contrast agent was Rolan Rogers RN. * The study was technically limited. * The study was technically difficult. * There were technical limitations due to patient'ssupine positioning while on mechanical ventilation Left Ventricle * The left ventricle is severely dilated. * There is normal left ventricular wall thickness. * Left ventricular systolic function is severely reduced. * Ejection Fraction = 15-20%. * There is severe global hypokinesis of the left ventricle. Right Ventricle * The right ventricle is not well visualized. * The right ventricular systolic function is normal as assessed by tricuspid annular plane systolic excursion (TAPSE) (normal >1.5 cm). Atria * The left atrial size is normal. * Right atrial size is normal. * There is no evidence of atrial septal defect, but resolution does not allow assessment for a patent foramen ovale. Mitral Valve * The mitral valve is grossly normal. * There is no mitral valve stenosis. * Significant mitral regurgitation is absent. Tricuspid Valve * The tricuspid valve is not well visualized. * There is no tricuspid stenosis. * Significant tricuspid regurgitation is absent. Aortic Valve * The aortic valve is not well visualized. * Aortic stenosis is absent. * There is no significant aortic regurgitation. Pulmonic Valve * The pulmonary valve is not well seen, but the Doppler examination is normal without significant regurgitation or stenosis. Great Vessels * The aortic root and proximal ascending aorta are normal sized. Pericardium/Pleural * There is no pericardial effusion. Right Ventricle * An intracardiac device lead is noted in the right ventricle. Great Vessels * The inferior vena cava was not visualized. Doppler assessment is inadequate to allow esimation of the right atrial pressure, right ventricular systolic pressure , or pulmonary artery systolic pressure. Left Ventricular Diastolic Function * Diastolic dysfunction, Grade II, consistent with elevated left atrial pressure. MMode 2D Measurements and Calculations IVSd 1.2 cm LVIDd 5.7 cm LVIDs 5.0 cm LVPWd 1.1 cm IVS/LVPW 1.1 FS 11.8 % EDV(Teich) 157.6 ml ESV(Teich) 118.0 ml EF(Teich) 25.1 % EDV(cubed) 181.5 ml ESV(cubed) 124.7 ml EF(cubed) 31.3 % LV mass(C)d 281.6 grams LV mass(C)dI 116.5 grams/m\S\2 SV(Teich) 39.6 ml SI(Teich) 16.4 ml/m\S\2 SV(cubed) 56.9 ml SI(cubed) 23.5 ml/m\S\2 Ao root diam 3.4 cm Ao root area 9.0 cm\S\2 ACS 2.0 cm LA dimension 3.6 cm asc Aorta Diam 2.9 cm LA/Ao 1.1 LVOT diam 2.0 cm LVOT area 3.1 cm\S\2 LVAd ap4 40.8 cm\S\2 LVLd ap4 8.9 cm EDV(MOD-sp4) 151.0 ml LVAs ap4 31.8 cm\S\2 LVLs ap4 8.1 cm ESV(MOD-sp4) 105.0 ml EF(MOD-sp4) 30.5 % SV(MOD-sp4) 46.0 ml SI(MOD-sp4) 19.0 ml/m\S\2 Doppler Measurements and Calculations MV E max mg 115.7 cm/sec MV A max mg 91.6 cm/sec MV E/A 1.3 MV dec time 0.21 sec Ao V2 max 129.5 cm/sec Ao max PG 6.7 mmHg Ao max PG (full) 4.2 mmHg PHYLLIS(V,A) 1.9 cm\S\2 PHYLLIS(V,D) 1.9 cm\S\2 LV V1 max PG 2.5 mmHg LV V1 max 79.8 cm/sec PA V2 max 90.9 cm/sec PA max PG 3.3 mmHg PA acc slope 374.4 cm/sec\S\2 PA acc time 0.17 sec PA pr(Accel) 4.5 mmHg
--- NOTE | 2016-10-25 09:18 | Medical Student: [facility] ---
Med Student Progress Note Date of Service Oct 25, 2016. Subjective Pt evaluation today including: conversation w/ patient, physical exam, chart review, lab review, review of studies, review of inpatient medication list Pt is a 65 yo male with a hx of DM, CAD and multiple amputations who presented 3 days ago to the ED and was found to be in septic shock secondary to a gas forming infection of the right 3rd finger. The finger was then amputated and the patient has been followed in the ICU. Overnight , pt's BP dropped into the 80s and Levophed was restarted at 0.1 mcgs/1kg/min. His BP has since improved and is currently 125/63. Overnight he was on assist control ventilation, but has returned to 5/5 CPAP this morning. apt awakens to verbal stimuli, but has difficulty following commands. He denies pain. Due to his confusion and level of alertness [facility] ICU cannot be assessed though despite the fact that he is not currently sedated. A complete ROS could not be performed due to his level of alertness. Objective Vital Signs Date Time Temp Pulse Resp B/P Pulse Ox O2 Delivery O2 Flow Rate FiO2 10/25/16 06:00 37.3 80 23 142/69 95 Mechanical Ventilator 30 10/25/16 05:40 30 10/25/16 05:10 30 10/25/16 04:00 37.5 81 20 133/58 95 Mechanical Ventilator 30 10/25/16 04:00 30 10/25/16 04:00 95 Mechanical Ventilator 10/25/16 02:08 30 10/25/16 02:00 37.4 87 21 115/53 97 Mechanical Ventilator 30 10/25/16 00:01 30 10/25/16 00:01 37.4 76 20 127/58 96 Mechanical Ventilator 30 10/25/16 00:01 96 Mechanical Ventilator 10/24/16 23:24 Mechanical Ventilator 30 10/24/16 23:06 30 10/24/16 22:00 37.5 81 20 119/52 96 Mechanical Ventilator 10/24/16 21:11 30 10/24/16 20:00 30 10/24/16 20:00 37.7 86 21 144/64 96 Mechanical Ventilator 30 10/24/16 20:00 96 Mechanical Ventilator 10/24/16 18:03 37.8 89 20 94/50 96 CPAP 30 10/24/16 17:42 30 10/24/16 16:00 30 10/24/16 16:00 CPAP 30 Mechanical Ventilator 10/24/16 16:00 38.1 95 26 94/53 95 CPAP 30 10/24/16 14:20 30 10/24/16 14:02 38.3 97 22 96/50 95 CPAP 30 10/24/16 12:00 38.3 96 22 92/51 94 CPAP 30 10/24/16 12:00 CPAP 30 Mechanical Ventilator 10/24/16 12:00 30 10/24/16 11:00 30 10/24/16 10:00 38.3 93 20 90/46 94 CPAP 30 Physical Exam General Appearance: WD/WN, + obese Respiratory/Chest: no respiratory distress, no accessory muscle use, + crackles , + rhonchi, + pertinent finding (Ventilated) Cardiovascular: regular rate, rhythm, no edema, no JVD, no murmur Abdomen: normal bowel sounds, + pertinent finding (firm) Extremities: no pedal edema, + pertinent finding (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 Numerous abrasions and onychomycosis on the RLE. Surgical site on right hand is wrapped and dry. ) Neurologic/Psychiatric: alert, + pertinent finding (Unable to asses CAM ICU status. Unable to consistently follow commands. ) Skin: normal color, warm/dry Laboratory Results Last 24 Hours Test 10/24/16 12:12 10/24/16 15:57 10/24/16 19:41 10/24/16 23:57 Bedside Glucose 152 mg/dl 151 mg/dl 163 mg/dl 193 mg/dl Test 10/25/16 04:00 10/25/16 05:29 Bedside Glucose 208 mg/dl White Blood Count 12.02 K/uL Red Blood Count 3.41 M/uL Hemoglobin 10.2 g/dL Hematocrit 29.9 % Mean Corpuscular Volume 87.7 fL Mean Corpuscular Hemoglobin 29.9 pg Mean Corpuscular Hemoglobin Concent 34.1 g/dl Platelet Count 173 K/uL Mean Platelet Volume 10.1 fL Neutrophils (%) (Auto) 80.1 % Lymphocytes (%) (Auto) 9.7 % Monocytes (%) (Auto) 7.6 % Eosinophils (%) (Auto) 1.3 % Basophils (%) (Auto) 0.2 % Neutrophils # (Auto) 9.63 K/uL Lymphocytes # (Auto) 1.16 K/uL Monocytes # (Auto) 0.91 K/uL Eosinophils # (Auto) 0.16 K/uL Basophils # (Auto) 0.03 K/uL RDW Standard Deviation 46.4 fL RDW Coefficient of Variation 14.3 % Immature Granulocyte % (Auto) 1.1 % Immature Granulocyte # (Auto) 0.13 K/uL Sodium Level 139 mmol/L Potassium Level 4.1 mmol/L Chloride Level 102 mmol/L Carbon Dioxide Level 25 mmol/L Anion Gap 12.0 mmol/L Blood Urea Nitrogen 65 mg/dl Creatinine 2.10 mg/dl Est Creatinine Clear Calc Drug Dose 46.6 ml/min Estimated GFR () 37.2 Estimated GFR (Non- 32.1 BUN/Creatinine Ratio 31.0 Random Glucose 199 mg/dl Calcium Level 8.2 mg/dl Magnesium Level 2.9 mg/dl Total Bilirubin 1.0 mg/dl Direct Bilirubin 0.4 mg/dl Aspartate Amino Transf (AST/SGOT) 101 U/L Alanine Aminotransferase (ALT/SGPT) 34 U/L Alkaline Phosphatase 111 U/L Total Protein 6.3 gm/dl Albumin 2.0 gm/dl Assessment and Plan Assessment and Plan: Neuro: * Altered Mental Status * Presented to ED via EMS for AMS. * Likely sepsis related. * No longer sedated - D/c 4 mg of Versed and Fentanyl 50 mcgs at 10 ml/hr. * Pt remains altered despite dc of sedatives. Will order non-con CT of the brain to r/o ischemic/hemorrhagic stroke. * Will also check ammonia and ABG for other possible causes of encephalopathy. Respiratory * Currently on ventilator - CPAP 5/5 500 TV 40% FiO2 * Pt is rhonchus on exam and hs white thick ET tube secretions. Recommend lavage and cx of secretions. * Will continue to monitor mental status, if it improves, will move toward extubation. Cardiovascular * Hypotension * Levophed restarted as hypotensive last night. BPs currently 120s/60. ID * Septic Shock * Likely 2/2 necrotic 3rd right finger - which was surgically amputated. * Blood cxs positive for Staph Aureus- await sensitivities. * Wounds cxs positive for Staph Aureus, Gram negatives and Strep. * Continue Zosyn, Clindamycin and Daptomycin. * Currently afebrile - Tylenol PRN for fever * ID consult - recommends to keep all abx Abdomen * OG tube in place. * LFTs mildly elevated, AST 42 yesterday to 101 today. ALT remains in 30s. Continue to monitor. * Hyperbilirubinemia - Resolved. * Request Dietary Consult - is it appropriate to start tube feeds? Renal * Acute kidney injury likely 2/2 hypoperfusion * Cr remains 2.1 today. Bun is 65, however pt is up 3L since admission * D/C - IVF maintenence dose 0.5 NSS, 0.5 KCL at 75 ml/hr * Start 20 mg of Lasix to remove some of the excess fluid. * Newby Catheter in place. Strict I's and O's. Hematology * H&H stable. Continue to monitor daily. Endocrine * Continue to monitor blood sugars per nursing protocol. * Glycemic consult placed, pharmacy to follow. * Restart Levothyroxine 50 mcg daily - is pt's home medication. Lines * D/c Left axillary arterial line * Right IJ line with triple lumen catheter * Newby in place. * OG tube. Level of Care Critical Care Resuscitation Status FULL RESUSCITATION DVT Prophylaxis unfractionated heparin SQ
[2016-10-25] MEDS ORDERED: FUROSEMIDE 40 MG/4 ML VIAL IV STA (11:42)
[2016-10-25] MEDS: LEVOTHYROXINE 50 MCG TAB PO SCH (11:51)
--- NOTE | 2016-10-25 12:28 | CRITICAL CARE PROGRESS NOTE ---
DATE: 10/25/2016 GENERAL INFORMATION: This is a 65-year-old gentleman who is postop day 2 status post amputation of the right third middle finger secondary to sepsis. He remained on the ventilator yesterday and without any sedation all day and all last night. He was placed on assist control overnight and is back on CPAP 5/5 today. His care was discussed in detail on multidisciplinary rounds today. His Levophed, which was started yesterday, is now off and he is having an increase in his endotracheal tube secretions compared to yesterday. VITAL SIGNS: Maximum temperature 37.3, heart rate 80s, respiratory rate 20-21, blood pressure 119 to 142 over 50s to 60s. Oxygen saturation 95%. CPAP 5/5, 30%. 24-hour fluid balance positive 2.6 liters. PHYSICAL EXAMINATION: GENERAL: He will awaken to loud voice, but does not follow commands consistently. He will nod his head to questions, but does not move the right or left lower extremity to painful stimuli. LUNGS: Rhonchorous breath sounds bilaterally. No rales or wheezes. HEART: Regular rate and rhythm. ABDOMEN: Obese, firm, mildly distended, nontender. Active bowel sounds. EXTREMITIES: Show the bandage on the right hand to be clean, dry and intact. He has trace to 1+ upper extremity edema. He has a left below the knee amputation and his right leg has multiple scabs and scars over the anterior aspect of the hol[place]. LABORATORIES: White blood cell count 12.02, hemoglobin 10.2, hematocrit 29.9, platelets 173. Sodium 139, potassium 4.1, chloride 102, CO2 of 25, BUN 65, creatinine 2.1, blood sugar 208 and 199, calcium 8.2, magnesium 2.9, total bilirubin 1, direct bilirubin 0.4, AST 101, albumin 2, total protein 6.3. MICROBIOLOGY DATA: Blood cultures October 24, no growth to date. Blood cultures October 23, staph aureus, which is pansensitive. Abscess of the finger October 23 shows pansensitive staph aureus. Incision site October 23 shows Providencia rettgeri, Staphylococcus aureus resistant to Unasyn and cefuroxime, as well as Bactrim and a third Staphylococcus species. Portable chest x-ray from this morning was reviewed and shows persistent mild pulmonary vascular congestion and the endotracheal tube to be 6 cm above the aga. MEDICATIONS AND INFUSIONS: Acetaminophen, aspirin, clindamycin day 4, daptomycin, Pepcid, p.r.n. fentanyl, heparin, insulin sliding scale, Levemir, Floranex, Synthroid, Zosyn, sertraline. IMPRESSION: 1. Septic shock secondary to gangrenous right middle finger, status post amputation, as well as incision and drainage of the hand. 2. Acute hypoxemic respiratory failure secondary to #1. 3. Metabolic encephalopathy. 4. Acute kidney injury, creatinine is stable. 5. History of nonischemic cardiomyopathy, ejection fraction 15% to 20%. 6. Staphylococcus aureus bacteremia. 7. Diabetes mellitus with some hyperglycemia. 8. History of biventricular automatic implantable cardioverter defibrillator placement. 9. History of hypothyroidism. PLAN: NEUROLOGIC: Continue to avoid sedatives. CT scan of the brain. Continue p.r.n. fentanyl for pain, although I do not think he has been receiving any. PULMONARY: Continue on CPAP today and consider Lasix. Hopefully, he will be able to be extubated later today. He may be developing pneumonia, so we will keep an eye on his secretions and a sputum culture has been ordered. The endotracheal tube was advanced. CARDIOVASCULAR: Consider diuresis. Discontinue IV fluids and discontinue the arterial line. RENAL: The dosing of his medications was discussed with the pharmacy today. Avoid nephrotoxins and consider reintroducing Lasix. GASTROINTESTINAL: He is presently n.p.o. and has not had a bowel movement. If he is not extubated today, begin trickle feeds. I will begin Colace as well. INFECTIOUS DISEASE: Continue clindamycin, daptomycin and Zosyn. Await any further ID recommendations. Await sensitivities on the Providencia and alpha streptococcus. HEMATOLOGY: No acute issues. Follow white blood cell count. ENDOCRINE: The pharmacy is adjusting the insulin. Levothyroxine was resumed today. Continue DVT and GI prophylaxis. If he is extubated, I will order physical therapy today. I have not seen any of his family in the past few days. If I see them, I will attempt to update them and answer any questions. Critical care time is 60 minutes.
[2016-10-25] MEDS ORDERED: DOCUSATE SODIUM 100 MG/10 ML UDC PO ONE (12:30)
--- NOTE | 2016-10-25 12:34 | Pharmacy Progress Note ---
Glycemic Control: Progress Nt Date of Service Oct 25, 2016. Scope Glycemic Pharmacist consulted by Dr Aviles on 10/23/16 for glycemic control and to write orders per [facility] inpatient glycemic control protocol. Objective Accuchecks BSG (last 24hrs): Test 10/24/16 15:57 10/24/16 19:41 10/24/16 23:57 10/25/16 04:00 Bedside Glucose 151 mg/dl (70-99) 163 mg/dl (70-99) 193 mg/dl (70-99) 208 mg/dl (70-99) Test 10/25/16 05:29 10/25/16 11:23 Random Glucose 199 mg/dl (70-99) Bedside Glucose 207 mg/dl (70-99) Laboratory Data (last 24hrs) Test 10/25/16 05:29 Anion Gap 12.0 mmol/L BUN/Creatinine Ratio 31.0 Blood Urea Nitrogen 65 mg/dl Creatinine 2.10 mg/dl Potassium Level 4.1 mmol/L Sodium Level 139 mmol/L White Blood Count 12.02 K/uL Red Blood Count 3.41 M/uL Hemoglobin 10.2 g/dL Hematocrit 29.9 % Mean Corpuscular Volume 87.7 fL Mean Corpuscular Hemoglobin 29.9 pg Mean Corpuscular Hemoglobin Concent 34.1 g/dl Platelet Count 173 K/uL Mean Platelet Volume 10.1 fL Neutrophils (%) (Auto) 80.1 % Lymphocytes (%) (Auto) 9.7 % Monocytes (%) (Auto) 7.6 % Eosinophils (%) (Auto) 1.3 % Basophils (%) (Auto) 0.2 % Neutrophils # (Auto) 9.63 K/uL Lymphocytes # (Auto) 1.16 K/uL Monocytes # (Auto) 0.91 K/uL Eosinophils # (Auto) 0.16 K/uL Basophils # (Auto) 0.03 K/uL HbA1c: Test 10/24/16 04:34 Hemoglobin A1c 9.6 % (4.5-5.6) H Recent Pertinent Medications Outpatient Anti-diabetic Regimen: * Levemir 80 units SQ BID * Novolin R 3 units BID * Glyburide 5mg daily9.6 * A1c = 9.6 % 10/24/16 The patient is currently receiving: * Basal insulin: Levemir 20 units x 1 given in the AM yesterday + 40 units in the PM * Correctional Insulin: Novolog Correction per scale Q 4 hours Goal Range: Low 140 mg/dL - High 180 mg/dL Correction Factor: 10 mg/dL/unit * Prandial insulin: Per carb ratio of 1 unit per 3 grams CHO consumed * Oral Agents: None currently Risk Factors for Insulin Resistance: * Infection: sepsis secondary to finger gangrene; receiving Clindamycin + Zosyn + Daptomycin * Recent Surgery: POD # 2 * Diet: NPO * Mechanical Ventilation: Yes Assessment & Plan ASSESSMENT: 10/24/16 * 65 yo M with significant stressors admitted to ICU for septic shock 2/2 finger cellulitis. Patient is POD #1 s/p amputation of gangrenous finger. * Patient remains intubated post-op. * Patient was hypoglycemic yesterday afternoon. Suspect that this is d/t pt taking his basal insulin in the morning and then being NPO for OR. Patient's outpatient regimen is heavily weighted towards basal, so expect hypoglycemia to result during NPO periods. * Patient was given a significantly reduced dose of Levemir (25% of normal home dose) this morning, and further dosing will be guided by BSGs. * Will continue q4h accu-checks overnight to ensure that patient's BSGs remain stable. 10/25/16 * Patient's BSGs ranged 96-208 over the last 24 hrs * Fasting BSG 208 this AM with 60 units of Levemir on board and after receiving 5 units Novolog correction overnight. Anticipate basal insulin needs to be ~60- 70 units/day with current stressors and while NPO. This basal requirement would be similar to that required on prior admissions. Will order a set Levemir dose with hold parameter * Novolog CF and CR are reasonable starting points. CF has prevented BSGs from climbing rapidly. BSGs have leveled off with use of current CF. Primary insulin deficiency appears to be basal at this time. * Patient remains intubated, however there may be an attempt to extubate later today PLAN FOR INPATIENT GLYCEMIC CONTROL: * Changing Levemir to 35 units SQ BID - give 1/2 dose (17 units) if BSG less than 120 * Continuing correction factor of 10 mg/dl/unit * Continuing carb ratio of 1 unit per 3 grams CHO consumed * Continuing goal range of Low 140 mg/dL - High 180 mg/dL * Continue Q 4 hr BSG checks with Novolog coverage until BSGs consistently in goal range RECOMMENDATIONS FOR DISCHARGE: * * Please note that the plan above was derived based on current level of insulin resistance and hospital stress. These recommendations are appropriate for inpatient admission only. Plan of care upon discharge will need to be reassessed to avoid potential outpatient hypo/hyperglycemia. Thank you.
--- NOTE | 2016-10-25 14:22 | DIAGNOSTIC IMAGING REPORT ---
CT HEAD WITHOUT CONTRAST (CT) CLINICAL HISTORY: encephalopathy COMPARISON STUDY: 12/12/2015 TECHNIQUE: Axial CT of the brain is performed from the vertex to the skull base. IV contrast was not administered for this examination. CT DOSE: 614.27 mGy.cm FINDINGS: No intra or extra-axial mass lesions are visualized. There is no CT evidence of acute cortical infarction. There is no evidence of midline shift. There is no acute hemorrhage. No calvarial fractures are visualized. There are minor white matter hypodensities likely on a small vessel basis. There is an old lacunar infarct in the right basal ganglia versus a prominent perivascular space. This remain stable. There is moderate ventricular prominence in proportion to the degree of volume loss. There is no evidence of acute sinusitis IMPRESSION: No acute intracranial findings Electronically signed by: Nasir Butts M.D. 10/25/2016 2:21 PM Dictated Date/Time: 10/25/2016 2:20 PM
--- NOTE | 2016-10-25 16:07 | Infectious Disease Progress Nt ---
Progress Note Date of Service Oct 25, 2016. Subjective Pt evaluation today including: physical exam, chart review, lab review, review of studies, conversation w/ application support consultant, review of inpatient medication list Patient being weaned off of Levophed. Sedation also being tapered. More hemodynamically stable. Low-grade fever at present. Blood cultures growing methicillin sensitive Staph aureus, wound cultures growing Staph aureus, strep, Providencia, Gram-negative bacilli. Follow-up blood cultures negative to date. Additional Comments: Not obtainable Medications Current Inpatient Medications Medications (Trade) Dose Ordered Sig/Ifeayni Route Start Time Stop Time Status Last Admin Dose Admin Lactobacillus Acidophilus (Floranex Tab) 1 tab TID PO 10/23/16 14:00 11/22/16 13:59 10/25/16 13:21 1 TAB Sertraline HCl 100 mg 100 mg DAILY PO 10/24/16 09:00 11/23/16 08:59 10/25/16 08:40 100 MG Piperacillin Sod/ Tazobactam Sod 4.5 gm/Dextrose 120 ml @ 30 mls/hr Q8H IV 10/23/16 16:00 11/02/16 15:59 10/25/16 15:54 30 MLS/HR Clindamycin Phosphate 600 mg/ Dextrose 54 ml @ 100 mls/hr Q8H IV 10/23/16 20:00 10/30/16 19:59 10/25/16 11:51 100 MLS/HR Daptomycin/Sodium Chloride (Cubicin IV/Nss 50ml) 65 ml @ 100 mls/hr DAILY@0600 IV 10/24/16 06:00 11/02/16 05:59 10/25/16 06:11 100 MLS/HR Insulin Aspart (novoLOG ASPART) SLIDING SCALE G... Q4 SC 10/23/16 16:00 11/22/16 15:59 10/25/16 11:52 3 UNITS Miscellaneous Information (Consult Glycemic Management Pharmacy) 1 ea UD PRN N/A 10/23/16 14:30 11/22/16 14:29 Heparin Sodium (Porcine) (Heparin Sq 5000 Unit/0.5ml) 5,000 unit Q8 SQ 10/23/16 14:00 11/22/16 13:59 10/25/16 13:22 5,000 UNIT Piperacillin Sod/ Tazobactam Sod (Consult) 1 ea UD PRN N/A 10/23/16 14:30 11/22/16 14:29 Clindamycin Phosphate (Consult) 1 ea UD PRN N/A 10/23/16 14:30 11/22/16 14:29 Daptomycin 1 ea 1 ea UD PRN N/A 10/23/16 15:30 11/22/16 15:29 Acetaminophen 650 mg/Empty Bag 65 ml @ 260 mls/hr Q6H PRN IV 10/24/16 00:45 11/23/16 00:44 10/24/16 00:47 260 MLS/HR Famotidine/ Dextrose (Pepcid IV Inj/ D5 100ml) 102 ml @ 204 mls/hr Q12H IV 10/24/16 09:00 11/23/16 08:59 10/25/16 08:39 204 MLS/HR Fentanyl Citrate (Fentanyl Inj) 50 mcg Q2H PRN IV 10/24/16 10:15 11/07/16 10:14 10/25/16 13:07 50 MCG Multi-Ingredient Ointment (Eucerin Unscented Cr) 1 appln BID EXT 10/24/16 21:00 11/23/16 20:59 10/25/16 08:43 1 APPLN Insulin Detemir (Levemir Flexpen/ FlexTouch) 35 unit BID SC 10/25/16 09:00 11/24/16 08:59 10/25/16 09:14 35 UNIT Aspirin (Aspirin Chew) 81 mg DAILY PO 10/26/16 09:00 11/25/16 08:59 Levothyroxine Sodium (Synthroid Tab) 50 mcg DAILYBB PO 10/25/16 11:00 11/24/16 10:59 10/25/16 11:51 50 MCG Docusate Sodium (coLACE SYRUP) 100 mg BID PO 10/25/16 21:00 11/24/16 20:59 Objective Vital Signs Date Time Temp Pulse Resp B/P Pulse Ox O2 Delivery O2 Flow Rate FiO2 10/25/16 14:08 38.2 93 28 129/64 95 CPAP 30 Mechanical Ventilator 10/25/16 12:14 37.3 88 28 92 CPAP 30 Mechanical Ventilator 10/25/16 12:00 30 10/25/16 12:00 CPAP 30 Mechanical Ventilator 10/25/16 11:55 30 10/25/16 10:03 37.4 85 25 128/65 92 CPAP 30 Mechanical Ventilator 10/25/16 08:00 37.4 85 26 141/65 92 Mechanical Ventilator 30 10/25/16 08:00 30 10/25/16 08:00 CPAP 30 Mechanical Ventilator 10/25/16 08:00 Mechanical Ventilator 30 10/25/16 07:39 30 10/25/16 06:00 37.3 80 23 142/69 95 Mechanical Ventilator 30 10/25/16 05:40 30 10/25/16 05:10 30 10/25/16 04:00 37.5 81 20 133/58 95 Mechanical Ventilator 30 10/25/16 04:00 30 10/25/16 04:00 95 Mechanical Ventilator 10/25/16 02:08 30 10/25/16 02:00 37.4 87 21 115/53 97 Mechanical Ventilator 10/25/16 00:01 30 10/25/16 00:01 37.4 76 20 127/58 96 Mechanical Ventilator 30 10/25/16 00:01 96 Mechanical Ventilator 10/24/16 23:24 Mechanical Ventilator 30 10/24/16 23:06 30 10/24/16 22:00 37.5 81 20 119/52 96 Mechanical Ventilator 10/24/16 21:11 30 10/24/16 20:00 30 10/24/16 20:00 37.7 86 21 144/64 96 Mechanical Ventilator 10/24/16 20:00 96 Mechanical Ventilator 10/24/16 18:03 37.8 89 20 94/50 96 CPAP 30 10/24/16 17:42 30 10/24/16 16:00 30 10/24/16 16:00 CPAP 30 Mechanical Ventilator 10/24/16 16:00 38.1 95 26 94/53 95 CPAP 30 Physical Exam General Appearance: WD/WN, no apparent distress Eyes: normal inspection, sclerae normal ENT: normal ENT inspection, + pertinent finding (Endotracheal tube in place) Neck: supple, thyroid normal, trachea midline Respiratory/Chest: chest non-tender, no respiratory distress, + rales Cardiovascular: regular rate, rhythm, no gallop, no murmur Abdomen: normal bowel sounds, non tender, no organomegaly, + distended Extremities: non-tender, + pertinent finding (Dressing intact right hand, status post left BKA) Neurologic/Psychiatric: + pertinent finding (Not responding to questions) Skin: normal color, no rash Lymphatic: no adenopathy Laboratory Results RUN DATE: 10/25/16 [facility] LAB PAGE 1 RUN TIME: 1142 Specimen Inquiry PATIENT: LUZ CRUZ LOC: [facility] U # : [id number] AGE/SX: 65/M ROOM: E104 REG : 10/23/[address]: Ita Saldana : 1950 BED: 1 DIS : STATUS: ADM IN TLOC: SPEC #: [id number] JONATHAN: 10/23/16 STATUS: COMP REQ #: [id number] RECD: 10/23/[address]: Kip Gupta MD SOURCE: BLOOD ENTR: 10/23/[address]: Jaimee Doctor, Assigned SPDESC: ORDERED: BLOOD CULTURE COMMENTS: Comments to Barrel Plater SAME TIME, DIFFERENT SITES Procedure Result Verified Site BLD CULT Final 10/25/16-1142 Organism 1 STAPHYLOCOCCUS AUREUS SENS SENSITIVITY TO FOLLOW Phoned Positive Blood Culture Gram Stain Report to JEREL VILLALOBOS on 10/23/16 At 2311 By PAUL. Results were verbalized back to PAUL. 1. STAPHYLOCOCCUS AUREUS Target Route Dose RX AB Cost M.I.C. IQ ------ ----- ------ -- ------ -------- - ------ TRIMET/SULFA S <=0.5/ 9.5 * OXACILLIN S <=0.25 VANCOMYCIN S 2 ERYTHROMYCIN S <=0.5 TETRACYCLINE S <=4 CLINDAMYCIN S <=0.5 DAPTOMYCIN S <=0.5 S = SENSITIVE I = INTERMEDIATE R = RESISTANT Last 24 Hours Test 10/24/16 19:41 10/24/16 23:57 10/25/16 04:00 10/25/16 05:29 Bedside Glucose 163 mg/dl 193 mg/dl 208 mg/dl White Blood Count 12.02 K/uL Red Blood Count 3.41 M/uL Hemoglobin 10.2 g/dL Hematocrit 29.9 % Mean Corpuscular Volume 87.7 fL Mean Corpuscular Hemoglobin 29.9 pg Mean Corpuscular Hemoglobin Concent 34.1 g/dl Platelet Count 173 K/uL Mean Platelet Volume 10.1 fL Neutrophils (%) (Auto) 80.1 % Lymphocytes (%) (Auto) 9.7 % Monocytes (%) (Auto) 7.6 % Eosinophils (%) (Auto) 1.3 % Basophils (%) (Auto) 0.2 % Neutrophils # (Auto) 9.63 K/uL Lymphocytes # (Auto) 1.16 K/uL Monocytes # (Auto) 0.91 K/uL Eosinophils # (Auto) 0.16 K/uL Basophils # (Auto) 0.03 K/uL RDW Standard Deviation 46.4 fL RDW Coefficient of Variation 14.3 % Immature Granulocyte % (Auto) 1.1 % Immature Granulocyte # (Auto) 0.13 K/uL Sodium Level 139 mmol/L Potassium Level 4.1 mmol/L Chloride Level 102 mmol/L Carbon Dioxide Level 25 mmol/L Anion Gap 12.0 mmol/L Blood Urea Nitrogen 65 mg/dl Creatinine 2.10 mg/dl Est Creatinine Clear Calc Drug Dose 46.6 ml/min Estimated GFR () 37.2 Estimated GFR (Non- 32.1 BUN/Creatinine Ratio 31.0 Random Glucose 199 mg/dl Calcium Level 8.2 mg/dl Magnesium Level 2.9 mg/dl Total Bilirubin 1.0 mg/dl Direct Bilirubin 0.4 mg/dl Aspartate Amino Transf (AST/SGOT) 101 U/L Alanine Aminotransferase (ALT/SGPT) 34 U/L Alkaline Phosphatase 111 U/L Total Protein 6.3 gm/dl Albumin 2.0 gm/dl Test 10/25/16 11:23 10/25/16 15:30 10/25/16 15:43 Bedside Glucose 207 mg/dl 142 mg/dl CHEST ONE VIEW PORTABLE CLINICAL HISTORY: Respiratory failure COMPARISON STUDY: 10/24/2016 FINDINGS: There is a left subclavian implantable pacer/defibrillator present. There is a nasogastric tube which passes in the stomach. There is a right internal jugular central venous catheter. There is an endotracheal tube positioned 6 cm above the aga. The heart is mildly enlarged. There is mild pulmonary vascular congestion.[ IMPRESSION: Persistent mild pulmonary vascular congestion. No evidence of lobar consolidation. Endotracheal tube 6 cm above the aga. Electronically signed by: Nasir Butts M.D. 10/25/2016 7:51 AM Dictated Date/Time: 10/25/2016 7:50 AM The status Assessment and Plan (1) Severe sepsis Status: Acute (2) Septic shock Status: Acute (3) Acute encephalopathy (4) Elevated troponin I measurement (5) Abnormal EKG (6) Lactic acidemia (7) PATRICIA (acute kidney injury) (8) Necrotic wound of right hand Status: Acute (9) CHF (congestive heart failure) Status: Chronic (10) DM type 2 (diabetes mellitus, type 2) Status: Chronic (11) Hypothyroidism Status: Chronic (12) Biventricular ICD (implantable cardioverter-defibrillator) in place Status: Chronic (13) Nonischemic cardiomyopathy Status: Chronic (14) CAD (coronary artery disease) Status: Chronic (15) History of MRSA infection Status: Chronic (16) MSSA bacteremia Status: Chronic (17) Amputation of right index finger Status: Chronic Sepsis with septic shock, with methicillin sensitive Staph aureus , secondary to gangrenous right third finger infection now s/p amputation in patient with diabetes and multiple other co-morbidities.wound cultures also positive for Providencia, Strep, and anaerobes. Zosyn should provide adequate coverage, daptomycin and clindamycin have been discontinued. We will continue to follow.
[2016-10-25 16:53] LABS: ISTAT ALLEN TEST Pass; ISTAT ARTERIAL BLOOD GAS HCO3 26 meq/L (19-24); ISTAT ARTERIAL BLOOD GAS PCO2 42 mmHg (35-46); ISTAT ARTERIAL BLOOD GAS PO2 86 mmHg (80-95); ISTAT ARTERIAL BLOOD GAS pH 7.41 (7.35-7.45); ISTAT CARBON DIOXIDE 27 mEq/l (24-31); ISTAT DELIVERY SYSTEM Ventilator; ISTAT FIO2 30 %; ISTAT PEEP 5; ISTAT SITE L Radial
--- NOTE | 2016-10-25 19:40 | Progress Note ---
Medicine Progress Note Date & Time of Visit: Oct 25, 2016 at 19:25. Subjective Patient seen and examined. present at bedside. Remains ventilated due to mental status. Objective Last 8 Hrs Date Time Temp Pulse Resp B/P Pulse Ox O2 Delivery O2 Flow Rate FiO2 10/25/16 18:00 38.3 93 26 130/63 98 CPAP 30 Mechanical Ventilator 10/25/16 17:37 30 10/25/16 16:00 38.3 93 23 128/64 97 CPAP 30 Mechanical Ventilator 10/25/16 16:00 CPAP 30 Mechanical Ventilator 10/25/16 16:00 30 10/25/16 14:32 30 10/25/16 14:08 38.2 93 28 129/64 95 CPAP 30 Mechanical Ventilator 10/25/16 12:14 37.3 88 28 92 CPAP 30 Mechanical Ventilator 10/25/16 12:00 30 10/25/16 12:00 CPAP 30 Mechanical Ventilator 10/25/16 11:55 30 Physical Exam: General-opens eyes to voice Eyes-EOMI intact; no scleral icterus ENT-intubated Neck-no stridor; trachea midline Lungs-mechanical breath sounds anteriorly Heart-RRR; no m/r/g Abdomen-soft; NTND; nBS Extremities-right hand bandage c/d/i; left extremity stump c/d/i Neuro-unable to asses as intubated Laboratory Results: Last 24 Hours Test 10/24/16 19:41 10/24/16 23:57 10/25/16 04:00 10/25/16 05:29 Bedside Glucose 163 mg/dl 193 mg/dl 208 mg/dl White Blood Count 12.02 K/uL Red Blood Count 3.41 M/uL Hemoglobin 10.2 g/dL Hematocrit 29.9 % Mean Corpuscular Volume 87.7 fL Mean Corpuscular Hemoglobin 29.9 pg Mean Corpuscular Hemoglobin Concent 34.1 g/dl Platelet Count 173 K/uL Mean Platelet Volume 10.1 fL Neutrophils (%) (Auto) 80.1 % Lymphocytes (%) (Auto) 9.7 % Monocytes (%) (Auto) 7.6 % Eosinophils (%) (Auto) 1.3 % Basophils (%) (Auto) 0.2 % Neutrophils # (Auto) 9.63 K/uL Lymphocytes # (Auto) 1.16 K/uL Monocytes # (Auto) 0.91 K/uL Eosinophils # (Auto) 0.16 K/uL Basophils # (Auto) 0.03 K/uL RDW Standard Deviation 46.4 fL RDW Coefficient of Variation 14.3 % Immature Granulocyte % (Auto) 1.1 % Immature Granulocyte # (Auto) 0.13 K/uL Sodium Level 139 mmol/L Potassium Level 4.1 mmol/L Chloride Level 102 mmol/L Carbon Dioxide Level 25 mmol/L Anion Gap 12.0 mmol/L Blood Urea Nitrogen 65 mg/dl Creatinine 2.10 mg/dl Est Creatinine Clear Calc Drug Dose 46.6 ml/min Estimated GFR () 37.2 Estimated GFR (Non- 32.1 BUN/Creatinine Ratio 31.0 Random Glucose 199 mg/dl Calcium Level 8.2 mg/dl Magnesium Level 2.9 mg/dl Total Bilirubin 1.0 mg/dl Direct Bilirubin 0.4 mg/dl Aspartate Amino Transf (AST/SGOT) 101 U/L Alanine Aminotransferase (ALT/SGPT) 34 U/L Alkaline Phosphatase 111 U/L Total Protein 6.3 gm/dl Albumin 2.0 gm/dl Test 10/25/16 11:23 10/25/16 15:30 10/25/16 16:15 10/25/16 16:26 Bedside Glucose 207 mg/dl 142 mg/dl Ammonia 17.0 umol/L Blood Gas Sample Site L Radial Bedside Blood Gas pH (LAB) 7.41 Bedside Blood Gas pCO2 (LAB) 42 mmHg Bedside Blood Gas pO2 (LAB) 86 mmHg Bedside Blood Gas HCO3 (LAB) 26 meq/L Bedside Blood Gas Total CO2 27 mEq/l Bedside Blood Gas Base Excess (LAB) 2.0 meq/L Bedside Blood Gas O2 Saturation 96.0 % Brent Test Pass Oxygen Delivery Device Ventilator Bedside FiO2 30 % Blood Gas PEEP 5 Date/Time Source Procedure Growth Status 10/25/16 09:45 Sputum Trach. Tube Suction Gram Stain - Final Resulted 10/25/16 09:45 Sputum Trach. Tube Suction Sputum Culture Pending Resulted Assessment & Plan Severe sepsis -likely from the necrotic, gangrenous middle right finger -s/p right middle finger amputation and I&D of hand on 10/24 -ID consulted -received Zosyn, daptomycin and clindamycin (for 48hrs for potential antitoxin agents) -continue Zosyn -blood cultures from 10/23 with MSSA -repeat blood cultures from 10/24 ngtd -wound cultures with providencia, staphylococcus, streptococcus Acute respiratory failure secondary to metabolic encephalopathy -ventilator management per ICU Acute renal failure -possibly related to sepsis -baseline creatinine is around 1.3-1.4 -continue holding losartan -intermittent diuresis with furosemide -received gentle hydration History of nonischemic cardiomyopathy -ejection fraction around 15-20% -continue aspirin -resume atorvastatin once clinically improved -intermittent diuresis with furosemide (outpatient dose of 80mg BID) -resume losartan, metoprolol, metolazone, ISMN once clinically improved Elevation troponin -likely due to demand ischemia from sepsis and ARF -downtrended -TTE showing no change from previous Type 2 DM -hba1c 9.6 -continue insulin -glycemic pharmacy consulted Hypothyroidism -continue Synthroid DVT prophylaxis with heparin sq GI prophylaxis with famotidine Consultants: [employer] [facility] Procedures: TTE * Compared to the prior study dated 12/11/15, there is persistent severe LV systolic dysfunction. CT head No acute intracranial findings Current Inpatient Medications: Current Inpatient Medications Medications (Trade) Dose Ordered Sig/Ifeanyi Route Start Time Stop Time Status Last Admin Dose Admin Lactobacillus Acidophilus (Floranex Tab) 1 tab TID PO 10/23/16 14:00 11/22/16 13:59 10/25/16 13:21 1 TAB Sertraline HCl 100 mg 100 mg DAILY PO 10/24/16 09:00 11/23/16 08:59 10/25/16 08:40 100 MG Piperacillin Sod/ Tazobactam Sod/ Dextrose (Zosyn Iv/D5 100ml) 120 ml @ 30 mls/hr Q8H IV 10/23/16 16:00 11/02/16 15:59 10/25/16 15:54 30 MLS/HR Insulin Aspart (novoLOG ASPART) SLIDING SCALE G... Q4 SC 10/23/16 16:00 11/22/16 15:59 10/25/16 11:52 3 UNITS Miscellaneous Information (Consult Glycemic Management Pharmacy) 1 ea UD PRN N/A 10/23/16 14:30 11/22/16 14:29 Heparin Sodium (Porcine) (Heparin Sq 5000 Unit/0.5ml) 5,000 unit Q8 SQ 10/23/16 14:00 11/22/16 13:59 10/25/16 13:22 5,000 UNIT Piperacillin Sod/ Tazobactam Sod 1 ea 1 ea UD PRN N/A 10/23/16 14:30 11/22/16 14:29 Acetaminophen 650 mg/Empty Bag 65 ml @ 260 mls/hr Q6H PRN IV 10/24/16 00:45 11/23/16 00:44 10/24/16 00:47 260 MLS/HR Famotidine/ Dextrose (Pepcid IV Inj/ D5 100ml) 102 ml @ 204 mls/hr Q12H IV 10/24/16 09:00 11/23/16 08:59 10/25/16 08:39 204 MLS/HR Fentanyl Citrate (Fentanyl Inj) 50 mcg Q2H PRN IV 10/24/16 10:15 11/07/16 10:14 10/25/16 13:07 50 MCG Multi-Ingredient Ointment (Eucerin Unscented Cr) 1 appln BID EXT 10/24/16 21:00 11/23/16 20:59 10/25/16 08:43 1 APPLN Insulin Detemir (Levemir Flexpen/ FlexTouch) 35 unit BID SC 10/25/16 09:00 11/24/16 08:59 10/25/16 09:14 35 UNIT Aspirin (Aspirin Chew) 81 mg DAILY PO 10/26/16 09:00 11/25/16 08:59 Levothyroxine Sodium (Synthroid Tab) 50 mcg DAILYBB PO 10/25/16 11:00 11/24/16 10:59 10/25/16 11:51 50 MCG Docusate Sodium (coLACE SYRUP) 100 mg BID PO 10/25/16 21:00 11/24/16 20:59
--- NOTE | 2016-10-25 20:43 | Orthopedic Progress Note ---
Orthopedic Progress Note Date of Service Oct 25, 2016. Subjective Post OP Day: 2 Additional Notes: pt intubated, calm Objective dressing C/D/I Date Time Temp Pulse Resp B/P Pulse Ox O2 Delivery O2 Flow Rate FiO2 10/25/16 18:00 38.3 93 26 130/63 98 CPAP 30 Mechanical Ventilator 10/25/16 17:37 30 10/25/16 16:00 38.3 93 23 128/64 97 CPAP 30 Mechanical Ventilator 10/25/16 16:00 CPAP 30 Mechanical Ventilator 10/25/16 16:00 30 10/25/16 14:32 30 10/25/16 14:08 38.2 93 28 129/64 95 CPAP 30 Mechanical Ventilator 10/25/16 12:14 37.3 88 28 92 CPAP 30 Mechanical Ventilator 10/25/16 12:00 30 10/25/16 12:00 CPAP 30 Mechanical Ventilator 10/25/16 11:55 30 10/25/16 10:03 37.4 85 25 128/65 92 CPAP 30 Mechanical Ventilator 10/25/16 08:00 37.4 85 26 141/65 92 Mechanical Ventilator 30 10/25/16 08:00 30 10/25/16 08:00 CPAP 30 Mechanical Ventilator 10/25/16 08:00 Mechanical Ventilator 30 10/25/16 07:39 30 10/25/16 06:00 37.3 80 23 142/69 95 Mechanical Ventilator 30 10/25/16 05:40 30 10/25/16 05:10 30 10/25/16 04:00 37.5 81 20 133/58 95 Mechanical Ventilator 30 10/25/16 04:00 30 10/25/16 04:00 95 Mechanical Ventilator 10/25/16 02:08 30 10/25/16 02:00 37.4 87 21 115/53 97 Mechanical Ventilator 30 10/25/16 00:01 30 10/25/16 00:01 37.4 76 20 127/58 96 Mechanical Ventilator 30 10/25/16 00:01 96 Mechanical Ventilator 10/24/16 23:24 Mechanical Ventilator 30 10/24/16 23:06 30 10/24/16 22:00 37.5 81 20 119/52 96 Mechanical Ventilator 10/24/16 21:11 30 Laboratory Results 24 Hours: Test 10/25/16 05:29 White Blood Count 12.02 K/uL Red Blood Count 3.41 M/uL Hemoglobin 10.2 g/dL Hematocrit 29.9 % Mean Corpuscular Volume 87.7 fL Mean Corpuscular Hemoglobin 29.9 pg Mean Corpuscular Hemoglobin Concent 34.1 g/dl Platelet Count 173 K/uL Mean Platelet Volume 10.1 fL Neutrophils (%) (Auto) 80.1 % Lymphocytes (%) (Auto) 9.7 % Monocytes (%) (Auto) 7.6 % Eosinophils (%) (Auto) 1.3 % Basophils (%) (Auto) 0.2 % Neutrophils # (Auto) 9.63 K/uL Lymphocytes # (Auto) 1.16 K/uL Monocytes # (Auto) 0.91 K/uL Eosinophils # (Auto) 0.16 K/uL Basophils # (Auto) 0.03 K/uL Assessment & Plan Assessment: s/p amputation Plan: continue dry dressing daily or as needed. (1) Severe sepsis Acute (2) Septic shock Acute (3) Acute encephalopathy (4) Elevated troponin I measurement (5) Abnormal EKG (6) Lactic acidemia (7) PATRICIA (acute kidney injury) (8) Necrotic wound of right hand Acute (9) CHF (congestive heart failure) Chronic (10) DM type 2 (diabetes mellitus, type 2) Chronic (11) Hypothyroidism Chronic (12) Biventricular ICD (implantable cardioverter-defibrillator) in place Chronic (13) Nonischemic cardiomyopathy Chronic (14) CAD (coronary artery disease) Chronic (15) History of MRSA infection Chronic (16) MSSA bacteremia Chronic (17) Amputation of right index finger Chronic Discharge Planning Discharge Planning: uncertain
[2016-10-25] MEDS: DOCUSATE SODIUM 100 MG/10 ML UDC PO SCH (20:56)
[2016-10-25] MEDS: ACETAMINOPHEN IV 650 MG / 65ML IV PRN (20:56)
[2016-10-26] VITALS (16 sets, daily range): BP systolic 118–178; BP diastolic 60–97; PULSE 82–110; TEMP 37.4–38.3; O2SAT 94–99
[2016-10-26 03:39] LABS: BASO % 0.2 %; BASO ABS # 0.02 K/uL (0-0.2); COMPLETE YES; EOS % 1.2 %; HEMATOCRIT 29.1 % (42-52); IG% 1.4 %; LYMPH % 10.7 %; LYMPH ABS # 1.11 K/uL (1.2-3.4); MEAN CELL VOLUME 87.4 fL (80-100); MEAN CORPUSCULAR HEMOGLOBIN 29.7 pg (25-34); MEAN PLATELET VOLUME 9.5 fL (7.4-10.4); MONO % 8.7 %; NEUT % 77.8 %; PLATELET COUNT 153 K/uL (130-400); RED BLOOD COUNT 3.33 M/uL (4.7-6.1); WHITE BLOOD COUNT 10.33 K/uL (4.8-10.8)
[2016-10-26] MEDS: ACETAMINOPHEN IV 650 MG / 65ML IV PRN (03:40)
[2016-10-26] MEDS: INSULIN ASPART 100 UNITS/ML 3 ML PEN SC SCH ×4 (03:48→18:23)
[2016-10-26 03:55] LABS: CALCIUM 8.4 mg/dl (8.5-10.1); CREATININE 1.9 mg/dl (0.60-1.40); MAGNESIUM 2.9 mg/dl (1.8-2.4)
[2016-10-26] MEDS: LEVOTHYROXINE 50 MCG TAB PO SCH (06:00)
[2016-10-26] MEDS: HEPARIN SOD 5000 UNIT/0.5 ML CARP SQ SCH ×3 (06:59→20:54)
--- NOTE | 2016-10-26 07:53 | DIAGNOSTIC IMAGING REPORT ---
CHEST ONE VIEW PORTABLE CLINICAL HISTORY: Respiratory failure COMPARISON STUDY: 10/25/2016 FINDINGS: There is a left subclavian pacer/defibrillator present. There is an endotracheal tube with its tip 4.9 cm above the aga. There is a right internal jugular central venous catheter. There is a nasogastric tube which passes into the stomach. The heart remains enlarged. There is resolving pulmonary vascular congestion. There is no lobar consolidation.[ IMPRESSION: Resolving pulmonary vascular congestion. Electronically signed by: Nasir Butts M.D. 10/26/2016 7:52 AM Dictated Date/Time: 10/26/2016 7:51 AM
[2016-10-26] MEDS: DOCUSATE SODIUM 100 MG/10 ML UDC PO SCH ×2 (08:50→20:06)
[2016-10-26] MEDS: PIPERACILL/TAZOBAC IV 4.5 GM in DEXTROSE 5% 100ML 100 ML IV SCH ×2 (08:50→16:08)
[2016-10-26] MEDS: FAMOTIDINE IV INJ 20 MG in DEXTROSE 5% 100ML 100 ML IV SCH ×2 (08:50→20:51)
[2016-10-26] MEDS: FUROSEMIDE INJ 40 MG in SYRINGE 0 ML IV SCH ×2 (08:51→16:10)
[2016-10-26] MEDS: SERTRALINE HCL 100 MG TAB PO SCH (08:51)
[2016-10-26] MEDS: LACTOBACILLUS ACIDOPHILUS (FLORANEX) TAB PO SCH ×3 (08:51→20:06)
[2016-10-26] MEDS: EUCERIN CR 120 GM JAR EXT SCH ×2 (08:52→20:54)
[2016-10-26] MEDS: ASPIRIN 81 MG CHEW PO SCH (08:52)
[2016-10-26] MEDS ORDERED: PEPTAMEN INTENSE VHP 1000ML BAG OG SCH (09:15)
--- NOTE | 2016-10-26 10:28 | Orthopedic Progress Note ---
Orthopedic Progress Note Date of Service Oct 26, 2016. Subjective Post OP Day: 3 Additional Notes: Pt intubated. Appear awake but somewhat obtunded. Not answering questions. Current right hand dressing intact. Objective Dressing removed from the right hand. Wound very benign. Minimal to no drainage. Minimal to no erythema. Redressed with adaptic / 4x4's and kerlix wrap. Date Time Temp Pulse Resp B/P Pulse Ox O2 Delivery O2 Flow Rate FiO2 10/26/16 08:00 Mechanical Ventilator 30 10/26/16 08:00 30 10/26/16 08:00 37.4 98 23 158/95 98 Mechanical Ventilator 30 10/26/16 06:03 89 18 118/66 97 Mechanical Ventilator 30 10/26/16 05:55 30 10/26/16 04:00 Mechanical Ventilator 30 10/26/16 04:00 38.0 84 26 145/65 99 Mechanical Ventilator 30 10/26/16 04:00 30 10/26/16 02:41 30 10/26/16 02:00 37.8 89 23 136/60 98 Mechanical Ventilator 30 10/26/16 00:00 30 10/26/16 00:00 37.5 130/70 99 CPAP Mechanical Ventilator 10/26/16 00:00 CPAP 30 Mechanical Ventilator 10/25/16 23:15 30 10/25/16 22:00 37.8 88 21 /114 97 CPAP Mechanical Ventilator 10/25/16 20:23 30 10/25/16 20:00 38.4 95 25 137/64 99 CPAP Mechanical Ventilator 10/25/16 20:00 30 10/25/16 20:00 CPAP 30 Mechanical Ventilator 10/25/16 18:00 38.3 93 26 130/63 98 CPAP 30 Mechanical Ventilator 10/25/16 17:37 30 10/25/16 16:00 38.3 93 23 128/64 97 CPAP 30 Mechanical Ventilator 10/25/16 16:00 CPAP 30 Mechanical Ventilator 10/25/16 16:00 30 10/25/16 14:32 30 10/25/16 14:08 38.2 93 28 129/64 95 CPAP 30 Mechanical Ventilator 10/25/16 12:14 37.3 88 28 92 CPAP 30 Mechanical Ventilator 10/25/16 12:00 30 10/25/16 12:00 CPAP 30 Mechanical Ventilator 10/25/16 11:55 30 Laboratory Results 24 Hours: Test 2/22/17 03:28 White Blood Count 10.33 K/uL Red Blood Count 3.33 M/uL Hemoglobin 9.9 g/dL Hematocrit 29.1 % Mean Corpuscular Volume 87.4 fL Mean Corpuscular Hemoglobin 29.7 pg Mean Corpuscular Hemoglobin Concent 34.0 g/dl Platelet Count 153 K/uL Mean Platelet Volume 9.5 fL Neutrophils (%) (Auto) 77.8 % Lymphocytes (%) (Auto) 10.7 % Monocytes (%) (Auto) 8.7 % Eosinophils (%) (Auto) 1.2 % Basophils (%) (Auto) 0.2 % Neutrophils # (Auto) 8.04 K/uL Lymphocytes # (Auto) 1.11 K/uL Monocytes # (Auto) 0.90 K/uL Eosinophils # (Auto) 0.12 K/uL Basophils # (Auto) 0.02 K/uL Assessment & Plan Assessment: POD 3 s/p Amputation Right Middle Finger Plan: Continue daily dressing changes Sutures to be removed in 14 days from the day of surgery. (1) Severe sepsis Acute (2) Septic shock Acute (3) Acute encephalopathy (4) Elevated troponin I measurement (5) Abnormal EKG (6) Lactic acidemia (7) PATRICIA (acute kidney injury) (8) Necrotic wound of right hand Acute (9) CHF (congestive heart failure) Chronic (10) DM type 2 (diabetes mellitus, type 2) Chronic (11) Hypothyroidism Chronic (12) Biventricular ICD (implantable cardioverter-defibrillator) in place Chronic (13) Nonischemic cardiomyopathy Chronic (14) CAD (coronary artery disease) Chronic (15) History of MRSA infection Chronic (16) MSSA bacteremia Chronic (17) Amputation of right index finger Chronic Discharge Planning Discharge Planning: uncertain
--- NOTE | 2016-10-26 10:58 | Medical Student: [facility] ---
Med Student Progress Note Date of Service Oct 26, 2016. Subjective Pt evaluation today including: conversation w/ patient, physical exam, chart review, lab review, review of studies, review of inpatient medication list Pt is a 65 yo male with a hx of DM, CAD and multiple amputations who presented 4 days ago to the ED and was found to be in septic shock secondary to a gas forming infection of the right 3rd finger. The finger was then amputated and the patient has been followed in the ICU. Overnight he has had many episodes of bradycardia that have been paced by his implanted device, these have continued into the morning. He is awake spontaneously, but does not respond to simple commands. He will shake his head no, but when asked to shake his head yes, he did not. Thus he remains CAM ICU positive. ROS is incomplete dt pt's AMS. Objective Vital Signs Date Time Temp Pulse Resp B/P Pulse Ox O2 Delivery O2 Flow Rate FiO2 10/26/16 08:00 Mechanical Ventilator 30 10/26/16 08:00 30 10/26/16 08:00 37.4 98 23 158/95 98 Mechanical Ventilator 30 10/26/16 06:03 89 18 118/66 97 Mechanical Ventilator 30 10/26/16 05:55 30 10/26/16 04:00 Mechanical Ventilator 30 10/26/16 04:00 38.0 84 26 145/65 99 Mechanical Ventilator 30 10/26/16 04:00 30 10/26/16 02:41 30 10/26/16 02:00 37.8 89 23 136/60 98 Mechanical Ventilator 30 10/26/16 00:00 30 10/26/16 00:00 37.5 130/70 99 CPAP Mechanical Ventilator 10/26/16 00:00 CPAP 30 Mechanical Ventilator 10/25/16 23:15 30 10/25/16 22:00 37.8 88 21 /114 97 CPAP Mechanical Ventilator 10/25/16 20:23 30 10/25/16 20:00 38.4 95 25 137/64 99 CPAP Mechanical Ventilator 10/25/16 20:00 30 10/25/16 20:00 CPAP 30 Mechanical Ventilator 10/25/16 18:00 38.3 93 26 130/63 98 CPAP 30 Mechanical Ventilator 10/25/16 17:37 30 10/25/16 16:00 38.3 93 23 128/64 97 CPAP 30 Mechanical Ventilator 10/25/16 16:00 CPAP 30 Mechanical Ventilator 10/25/16 16:00 30 10/25/16 14:32 30 10/25/16 14:08 38.2 93 28 129/64 95 CPAP 30 Mechanical Ventilator 10/25/16 12:14 37.3 88 28 92 CPAP 30 Mechanical Ventilator 10/25/16 12:00 30 10/25/16 12:00 CPAP 30 Mechanical Ventilator 10/25/16 11:55 30 Physical Exam Eyes: bilateral eyes EOMI (pt unable to follow this command. ), bilateral eyes PERRL ENT: hearing grossly normal Neck: supple, no JVD Respiratory/Chest: no respiratory distress, + rhonchi Cardiovascular: regular rate, rhythm, no edema, no murmur Abdomen: normal bowel sounds, soft Extremities: no pedal edema, + pertinent finding (LLE - BKA, LRE multiple abrasions, no pedal edema. RUE incision is clean and dry with minimal drainage. LUE multiple finger amputations. ) Neurologic/Psychiatric: alert, + disoriented Laboratory Results Last 24 Hours Test 10/25/16 11:23 10/25/16 15:30 10/25/16 16:15 10/25/16 16:26 Bedside Glucose 207 mg/dl 142 mg/dl Ammonia 17.0 umol/L Blood Gas Sample Site L Radial Bedside Blood Gas pH (LAB) 7.41 Bedside Blood Gas pCO2 (LAB) 42 mmHg Bedside Blood Gas pO2 (LAB) 86 mmHg Bedside Blood Gas HCO3 (LAB) 26 meq/L Bedside Blood Gas Total CO2 27 mEq/l Bedside Blood Gas Base Excess (LAB) 2.0 meq/L Bedside Blood Gas O2 Saturation 96.0 % Brent Test Pass Oxygen Delivery Device Ventilator Bedside FiO2 30 % Blood Gas PEEP 5 Test 10/25/16 20:52 10/25/16 23:55 10/26/16 03:28 10/26/16 03:46 Bedside Glucose 93 mg/dl 124 mg/dl 104 mg/dl White Blood Count 10.33 K/uL Red Blood Count 3.33 M/uL Hemoglobin 9.9 g/dL Hematocrit 29.1 % Mean Corpuscular Volume 87.4 fL Mean Corpuscular Hemoglobin 29.7 pg Mean Corpuscular Hemoglobin Concent 34.0 g/dl Platelet Count 153 K/uL Mean Platelet Volume 9.5 fL Neutrophils (%) (Auto) 77.8 % Lymphocytes (%) (Auto) 10.7 % Monocytes (%) (Auto) 8.7 % Eosinophils (%) (Auto) 1.2 % Basophils (%) (Auto) 0.2 % Neutrophils # (Auto) 8.04 K/uL Lymphocytes # (Auto) 1.11 K/uL Monocytes # (Auto) 0.90 K/uL Eosinophils # (Auto) 0.12 K/uL Basophils # (Auto) 0.02 K/uL RDW Standard Deviation 45.9 fL RDW Coefficient of Variation 14.2 % Immature Granulocyte % (Auto) 1.4 % Immature Granulocyte # (Auto) 0.14 K/uL Sodium Level 141 mmol/L Potassium Level 4.0 mmol/L Chloride Level 104 mmol/L Carbon Dioxide Level 28 mmol/L Anion Gap 9.0 mmol/L Blood Urea Nitrogen 61 mg/dl Creatinine 1.90 mg/dl Est Creatinine Clear Calc Drug Dose 51.6 ml/min Estimated GFR () 41.9 Estimated GFR (Non- 36.2 BUN/Creatinine Ratio 32.0 Random Glucose 99 mg/dl Calcium Level 8.4 mg/dl Phosphorus Level 3.0 mg/dl Magnesium Level 2.9 mg/dl Digoxin Level 1.4 ng/ml Test 10/26/16 06:28 Bedside Glucose 109 mg/dl Assessment and Plan Assessment and Plan: Pt is a 65 yo man who presented 4 days ago in septic shock dt an infected right 3rd finger. The infected finger was amputated 4 days ago. Neuro: * Altered Mental Status * Presented to ED via EMS for AMS. - Likely sepsis related. * Spontaneously awake however remains CAM ICU + as he does not follow simple commands. * non-con CT of the brain was negative, no acute intracranial findings. * Ammonia level came back at 17. ABG was unremarkable for other possible causes of encephalopathy. Respiratory * Currently on ventilator - A/C - RR 20 - TV 550 - FiO2 40% - PEEP 5 * Pt continues to have course breath sounds. * Sputum cx was remarkable for many PMNs, few gram + cocci and few gram + bacilli * Recommend spontaneous breathing trial and will plan to extubate. Cardiovascular * Hypotension - Resolved. Has not been on Levophed since yesterday. BPs today 130s/70s. * Bradycardia - resolves with implanted pacer. * Evidence of tachy arrhythmia yesterday, Digoxin level was 1.4. No further issues overnight. ID * Septic Shock * Likely 2/2 necrotic 3rd right finger - which was surgically amputated. * Initial Blood cxs positive for MSSA, follow-up blood cxs negative to date. * Wounds cxs positive MSSA, Gram negatives and Strep. * Continue Zosyn - D/C Clindamycin and Daptomycin as per ID * Febrile today 38.0. PRN Tylenol given. Abdomen * OG tube in place - begin tube feedings. * Await Dietary Consult. * No BM since admission - start Colace 100 bid * GI prophylaxis: Famotidine Renal * Acute kidney injury likely 2/2 hypoperfusion * Cr down to 1.9 today from 2.1 yesterday. * Lasix started yesterday removed 1.7 L. Continue Lasix 40 mg IV BID * Newby Catheter in place. Strict I's and O's. - Pt is up 3L since admission. Hematology * H&H stable. Continue to monitor daily. Endocrine * Continue to monitor blood sugars per nursing protocol. Sugar have been 90s- 140s. * Continue Levothyroxine 50 mcg daily Lines * Right IJ line with triple lumen catheter * Newby in place. * OG tube. Level of Care Critical Care Resuscitation Status FULL RESUSCITATION DVT Prophylaxis unfractionated heparin SQ
[2016-10-26] MEDS ORDERED: INSULIN DETEMIR FLEXPEN/FLEX TOUCH 100 UNITS/ML 3ML SC ONE (12:45)
--- NOTE | 2016-10-26 13:45 | Critical Care Progress Note ---
Critical Care Progress Note Date of Service Oct 26, 2016. ICU Day ICU Day Number: [address] Holly Navas This is a 65 year old male admitted to the ICU S/P amputation of his right third finger and with septic shock. He is POD #3. He has been on CPAP and doing well from a respiratory standpoint. He does not follow simple commands and is unable to provide ROS but is awake and alert. Objective GENERAL : No acute distress. Endotracheal tube in place. Patient awake and alert. EYES: No icterus, gaze conjugate NOSE: No evidence of epistaxis MOUTH: No lesions or candidiasis. Endotracheal tube in place NECK: Supple. Rhonchi transmitted from upper lung patrick LUNGS: Rhonchi in upper lung patrick. Bases clear. Do not appreciate any bronchospasm HEART: Regular, rate controlled ABDOMEN: Soft, NT, ND, BS Present EXTREMITIES: No LE edema, pedal pulse intact to left lower extremity. Multiple amputations. No evidence of infection. NEURO: Awake and alert but disoriented. Unable to follow simple commands other than closing eyes. Does not squeeze hands on command. Breathing spontaneously over the vent. Assessment & Plan (1) Severe sepsis Secondary to gangrenous right upper extremity finger POD #4 right third digit amputation of hand Clindamycin and daptomycin held per infectious disease Continue Zosyn Blood cultures growing methicillin sensitive Staph aureus Wound cultures growing Staph aureus, strep, Providencia, Gram-negative bacilli Course of treatment per infectious disease Continue isolation for history of positive MRSA screen in the nares 09/07/15 (2) Septic shock Now hemodynamically stable Continues with fever - Tmax 38.3 Plan on extubation today WBC 10.33 today Lactic acid normal Continue Zosyn per infectious disease (see above) (3) Acute encephalopathy Patient is off sedation for mechanical ventilation Anticipate extubation later today Renal function improving Most likely due to severe sepsis Status post amputation of finger with gangrene Continue antibiotic treatment CT head 10/25/16 negative for acute findings Continue to monitor (4) Elevated troponin I measurement Most likely leak from severe sepsis No ST changes on EKG History of ischemic cardiomyopathy Left ventricular ejection fraction 15-20% Severe global hypokinesis of the left ventricle Left ventricle is severely dilated No evidence of aortic stenosis (5) PATRICIA (acute kidney injury) Improving Creatinine down to 1.9 from 2.2 BUN continues to be elevated 2.3 L ahead for fluid status since admission Continue to monitor serial labs IV fluids held for pulmonary edema Currently requiring diuresis with twice a day furosemide Continue strict I's and O's (6) Necrotic wound of right hand Status post right middle finger amputation with Dr. Henriquez Ortho continues to follow (7) CHF (congestive heart failure) IV fluids held Patient receiving diuresis twice daily Left ventricular ejection fraction 15-20% Continue to monitor on telemetry Continue strict I's and O's (8) DM type 2 (diabetes mellitus, type 2) Patient on glyburide and Novolin R at home Hemoglobin A1c 9.6 Continue sliding scale insulin Levemir held Pharmacy consult for glycemic management Continue close monitoring (9) Hypothyroidism Continue levothyroxine (10) Biventricular ICD (implantable cardioverter-defibrillator) in place EKG representing pacer spikes Patient be monitored on telemetry (11) CAD (coronary artery disease) Atorvastatin, imdur, Cozaar, Toprol-XL at home Antihypertensives held secondary to hypotension due to septic shock Resume PO meds as able once patient is extubated (12) History of MRSA infection Wound cultures with MSSA Positive MRSA screening in [facility] 09/07/15 Continue isolation protocol Discussed with infection control (13) DVT prophylaxis Heparin subcutaneous CCT 65 minutes independent of any procedures Consults & Procedures Consultants: Dr. Henriquez - Orthopedics Dr. Daniels - infectious disease Wound care Procedures: Amputation third right finger - Dr. Henriquez 10/24/16 Endotracheal intubation 10/23/16 Endotracheal extubation 10/26/16 Left axillary arterial line 10/23/16 Right IJ central line 10/23/16 Engine Head Repairer Attending: I have personally interviewed and examined the patient. I have discussed his care with Bennett Love PA-C and agree with the assessment and plan as documented above. His care was also discussed on multidisciplinary rounds today. He is more awake and alert today and did well on cpap. He was extubated this afternoon and remains delirious but not agitated. His Tmax was 38.4 and he has had a few episodes of bradycardia after which is pacemaker fires, as it should. Digoxin level 1.4 - continuing to hold due to renal failure which is improving. Tachy at times. Hematuria this afternoon after salcedo replaced. Cr beginning to improve and diruesis is ongoing. His biggest risk right now is for respiratory decompensation as he cannot really participate in incentive spirometry as well as ongoing delirium. I will order bipap 15/5 one hour TID and PRN for the time being. Speech evaluation pending. Continue abx per ID service. Review home meds. PT/OT. OOB tomorrow. Data Medications: Current Inpatient Medications Medications (Trade) Dose Ordered Sig/Ifeanyi Route Start Time Stop Time Status Last Admin Dose Admin Lactobacillus Acidophilus (Floranex Tab) 1 tab TID PO 10/23/16 14:00 11/22/16 13:59 10/26/16 08:51 1 TAB Sertraline HCl 100 mg 100 mg DAILY PO 10/24/16 09:00 11/23/16 08:59 10/26/16 08:51 100 MG Piperacillin Sod/ Tazobactam Sod/ Dextrose (Zosyn Iv/D5 100ml) 120 ml @ 30 mls/hr Q8H IV 10/23/16 16:00 11/02/16 15:59 10/26/16 08:50 30 MLS/HR Miscellaneous Information (Consult Glycemic Management Pharmacy) 1 ea UD PRN N/A 10/23/16 14:30 11/22/16 14:29 Heparin Sodium (Porcine) (Heparin Sq 5000 Unit/0.5ml) 5,000 unit Q8 SQ 10/23/16 14:00 11/22/16 13:59 10/26/16 06:59 5,000 UNIT Piperacillin Sod/ Tazobactam Sod 1 ea 1 ea UD PRN N/A 10/23/16 14:30 11/22/16 14:29 Acetaminophen 650 mg/Empty Bag 65 ml @ 260 mls/hr Q6H PRN IV 10/24/16 00:45 11/23/16 00:44 10/26/16 03:40 260 MLS/HR Famotidine/ Dextrose (Pepcid IV Inj/ D5 100ml) 102 ml @ 204 mls/hr Q12H IV 10/24/16 09:00 11/23/16 08:59 10/26/16 08:50 204 MLS/HR Fentanyl Citrate (Fentanyl Inj) 50 mcg Q2H PRN IV 10/24/16 10:15 11/07/16 10:14 10/25/16 13:07 50 MCG Multi-Ingredient Ointment (Eucerin Unscented Cr) 1 appln BID EXT 10/24/16 21:00 11/23/16 20:59 10/26/16 08:52 1 APPLN Insulin Detemir (Levemir Flexpen/ FlexTouch) 35 unit BID SC 10/25/16 09:00 11/24/16 08:59 Future Hold 10/25/16 21:00 35 UNIT Aspirin (Aspirin Chew) 81 mg DAILY PO 10/26/16 09:00 11/25/16 08:59 10/26/16 08:52 81 MG Levothyroxine Sodium (Synthroid Tab) 50 mcg DAILYBB PO 10/25/16 11:00 11/24/16 10:59 10/26/16 06:00 50 MCG Docusate Sodium (coLACE SYRUP) 100 mg BID PO 10/25/16 21:00 11/24/16 20:59 10/26/16 08:50 100 MG Insulin Aspart SLIDING SCALE G... Q6 SC 10/26/16 12:00 11/25/16 11:59 Furosemide/Syringe (Lasix Inj/ Syringe) 4 ml @ 4 mls/min BID17 IV 10/26/16 09:00 11/25/16 08:59 10/26/16 08:51 4 MLS/MIN Enteral Nutritional Formula (Peptamen Intense VHP) 1,000 ml CONTINUOUS OG 10/26/16 09:15 11/25/16 09:14 Chlorhexidine Gluconate (Peridex Oral Soln) 15 ml BID MT 10/26/16 21:00 11/25/16 20:59 I & O: 24-Hour Column 10/26/16 07:59 Intake Total 1045 ml Output Total 1650 ml Balance -605 ml Vital Signs: Date Time Temp Pulse Resp B/P Pulse Ox O2 Delivery O2 Flow Rate FiO2 10/26/16 12:00 30 10/26/16 12:00 38.1 104 30 149/73 97 CPAP 30 Mechanical Ventilator 10/26/16 12:00 CPAP 30 Mechanical Ventilator 10/26/16 10:59 38.1 110 24 166/84 97 CPAP 30 Mechanical Ventilator 10/26/16 10:58 38.1 110 31 166/84 97 CPAP 30 Mechanical Ventilator 10/26/16 09:58 38.0 98 25 152/79 96 CPAP 30 Mechanical Ventilator 10/26/16 08:20 30 10/26/16 08:00 Mechanical Ventilator 30 10/26/16 08:00 30 10/26/16 08:00 37.4 98 23 158/95 98 Mechanical Ventilator 30 10/26/16 06:03 89 18 118/66 97 Mechanical Ventilator 30 10/26/16 05:55 30 10/26/16 04:00 Mechanical Ventilator 30 10/26/16 04:00 38.0 84 26 145/65 99 Mechanical Ventilator 30 10/26/16 04:00 30 10/26/16 02:41 30 10/26/16 02:00 37.8 89 23 136/60 98 Mechanical Ventilator 30 10/26/16 00:00 30 10/26/16 00:00 37.5 130/70 99 CPAP Mechanical Ventilator 10/26/16 00:00 CPAP 30 Mechanical Ventilator 10/25/16 23:15 30 10/25/16 22:00 37.8 88 21 /114 97 CPAP Mechanical Ventilator 10/25/16 20:23 30 10/25/16 20:00 38.4 95 25 137/64 99 CPAP Mechanical Ventilator 10/25/16 20:00 30 10/25/16 20:00 CPAP 30 Mechanical Ventilator 10/25/16 18:00 38.3 93 26 130/63 98 CPAP 30 Mechanical Ventilator 10/25/16 17:37 30 10/25/16 16:00 38.3 93 23 128/64 97 CPAP 30 Mechanical Ventilator 10/25/16 16:00 CPAP 30 Mechanical Ventilator 10/25/16 16:00 30 10/25/16 14:32 30 10/25/16 14:08 38.2 93 28 129/64 95 CPAP 30 Mechanical Ventilator Laboratory Results: Last 24 Hours Test 10/25/16 15:30 10/25/16 16:15 10/25/16 16:26 10/25/16 20:52 Bedside Glucose 142 mg/dl 93 mg/dl Ammonia 17.0 umol/L Blood Gas Sample Site L Radial Bedside Blood Gas pH (LAB) 7.41 Bedside Blood Gas pCO2 (LAB) 42 mmHg Bedside Blood Gas pO2 (LAB) 86 mmHg Bedside Blood Gas HCO3 (LAB) 26 meq/L Bedside Blood Gas Total CO2 27 mEq/l Bedside Blood Gas Base Excess (LAB) 2.0 meq/L Bedside Blood Gas O2 Saturation 96.0 % Brent Test Pass Oxygen Delivery Device Ventilator Bedside FiO2 30 % Blood Gas PEEP 5 Test 2/21/17 23:55 10/26/16 03:28 10/26/16 03:46 10/26/16 06:28 Bedside Glucose 124 mg/dl 104 mg/dl 109 mg/dl White Blood Count 10.33 K/uL Red Blood Count 3.33 M/uL Hemoglobin 9.9 g/dL Hematocrit 29.1 % Mean Corpuscular Volume 87.4 fL Mean Corpuscular Hemoglobin 29.7 pg Mean Corpuscular Hemoglobin Concent 34.0 g/dl Platelet Count 153 K/uL Mean Platelet Volume 9.5 fL Neutrophils (%) (Auto) 77.8 % Lymphocytes (%) (Auto) 10.7 % Monocytes (%) (Auto) 8.7 % Eosinophils (%) (Auto) 1.2 % Basophils (%) (Auto) 0.2 % Neutrophils # (Auto) 8.04 K/uL Lymphocytes # (Auto) 1.11 K/uL Monocytes # (Auto) 0.90 K/uL Eosinophils # (Auto) 0.12 K/uL Basophils # (Auto) 0.02 K/uL RDW Standard Deviation 45.9 fL RDW Coefficient of Variation 14.2 % Immature Granulocyte % (Auto) 1.4 % Immature Granulocyte # (Auto) 0.14 K/uL Sodium Level 141 mmol/L Potassium Level 4.0 mmol/L Chloride Level 104 mmol/L Carbon Dioxide Level 28 mmol/L Anion Gap 9.0 mmol/L Blood Urea Nitrogen 61 mg/dl Creatinine 1.90 mg/dl Est Creatinine Clear Calc Drug Dose 51.6 ml/min Estimated GFR () 41.9 Estimated GFR (Non- 36.2 BUN/Creatinine Ratio 32.0 Random Glucose 99 mg/dl Calcium Level 8.4 mg/dl Phosphorus Level 3.0 mg/dl Magnesium Level 2.9 mg/dl Digoxin Level 1.4 ng/ml Test 10/26/16 11:26 Bedside Glucose 142 mg/dl Problem Qualifiers (1) DM type 2 (diabetes mellitus, type 2): Diabetes mellitus complication status: with circulatory complication Diabetes mellitus complication detail: with peripheral angiopathy with gangrene Diabetes mellitus terminal superintendent insulin use: with fdc use Qualified Codes: E11.52 - Type 2 diabetes mellitus with diabetic peripheral angiopathy with gangrene; Z79.4 - [facility] (current) use of insulin
--- NOTE | 2016-10-26 14:49 | Pharmacy Progress Note ---
Glycemic Control: Progress Nt Date of Service Oct 26, 2016. Scope Glycemic Pharmacist consulted by Dr Aviles on 10/23/16 for glycemic control and to write orders per [facility] inpatient glycemic control protocol. Objective Accuchecks BSG (last 24hrs): Test 10/25/16 15:30 10/25/16 20:52 10/25/16 23:55 10/26/16 03:28 Bedside Glucose 142 mg/dl (70-99) 93 mg/dl (70-99) 124 mg/dl (70-99) Random Glucose 99 mg/dl (70-99) Test 10/26/16 03:46 10/26/16 06:28 10/26/16 11:26 Bedside Glucose 104 mg/dl (70-99) 109 mg/dl (70-99) 142 mg/dl (70-99) Laboratory Data (last 24hrs) Test 10/26/16 03:28 Anion Gap 9.0 mmol/L BUN/Creatinine Ratio 32.0 Blood Urea Nitrogen 61 mg/dl Creatinine 1.90 mg/dl Potassium Level 4.0 mmol/L Sodium Level 141 mmol/L White Blood Count 10.33 K/uL Red Blood Count 3.33 M/uL Hemoglobin 9.9 g/dL Hematocrit 29.1 % Mean Corpuscular Volume 87.4 fL Mean Corpuscular Hemoglobin 29.7 pg Mean Corpuscular Hemoglobin Concent 34.0 g/dl Platelet Count 153 K/uL Mean Platelet Volume 9.5 fL Neutrophils (%) (Auto) 77.8 % Lymphocytes (%) (Auto) 10.7 % Monocytes (%) (Auto) 8.7 % Eosinophils (%) (Auto) 1.2 % Basophils (%) (Auto) 0.2 % Neutrophils # (Auto) 8.04 K/uL Lymphocytes # (Auto) 1.11 K/uL Monocytes # (Auto) 0.90 K/uL Eosinophils # (Auto) 0.12 K/uL Basophils # (Auto) 0.02 K/uL HbA1c: Test 10/24/16 04:34 Hemoglobin A1c 9.6 % (4.5-5.6) H Recent Pertinent Medications Outpatient Anti-diabetic Regimen: * Levemir 80 units SQ BID * Novolin R 3 units BID * Glyburide 5mg daily9.6 * A1c = 9.6 % 10/24/16 The patient is currently receiving: * Basal insulin: Levemir 35 units SQ Q 12 hours * Correctional Insulin: Novolog Correction per scale Q 4 hours Goal Range: Low 140 mg/dL - High 160 mg/dL Correction Factor: 10 mg/dL/unit * Prandial insulin: Per carb ratio of 1 unit per 3 grams CHO consumed * Oral Agents: None currently Risk Factors for Insulin Resistance: * Infection: sepsis secondary to finger gangrene; receiving Zosyn * Recent Surgery: POD # 3 * Diet: NPO * Mechanical Ventilation: extubated this afternoon Assessment & Plan ASSESSMENT: 10/24/16 * 65 yo M with significant stressors admitted to ICU for septic shock 2/2 finger cellulitis. Patient is POD #1 s/p amputation of gangrenous finger. * Patient remains intubated post-op. * Patient was hypoglycemic yesterday afternoon. Suspect that this is d/t pt taking his basal insulin in the morning and then being NPO for OR. Patient's outpatient regimen is heavily weighted towards basal, so expect hypoglycemia to result during NPO periods. * Patient was given a significantly reduced dose of Levemir (25% of normal home dose) this morning, and further dosing will be guided by BSGs. * Will continue q4h accu-checks overnight to ensure that patient's BSGs remain stable. 10/25/16 * Patient's BSGs ranged 96-208 over the last 24 hrs * Fasting BSG 208 this AM with 60 units of Levemir on board and after receiving 5 units Novolog correction overnight. Anticipate basal insulin needs to be ~60- 70 units/day with current stressors and while NPO. This basal requirement would be similar to that required on prior admissions. Will order a set Levemir dose with hold parameter * Novolog CF and CR are reasonable starting points. CF has prevented BSGs from climbing rapidly. BSGs have leveled off with use of current CF. Primary insulin deficiency appears to be basal at this time. * Patient remains intubated, however there may be an attempt to extubate later today 10/26/16 * BSGs did drop throughout the day yesterday, lowest BSG 93 HS last evening. * All BSGs over last 24 hours reflective of fasting state at enteral feedings not started; last BSG 142, so starting to rebound after hold AM Levemir * Held Levemir dose this AM due to BSGs being lower than desired for ICU patient and continued NPO status * Patient is now extubated, will need a CANDY DIPPER HAND eval before diet resumed, no tube feeds at this time * Given uncertainty with dietary intake and lessening stressors I feel it best to reduce his basal insulin dose by 50% and add a hold parameter PLAN FOR INPATIENT GLYCEMIC CONTROL: * Changing Levemir to 18 units SQ BID - hold if BSG less than 120 * Continuing correction factor of 10 mg/dl/unit * Continuing carb ratio of 1 unit per 3 grams CHO consumed * Continuing goal range of Low 140 mg/dL - High 160 mg/dL * Change BSGs to Q 6 hours * Please note that the plan above was derived based on current level of insulin resistance and hospital stress. These recommendations are appropriate for inpatient admission only. Plan of care upon discharge will need to be reassessed to avoid potential outpatient hypo/hyperglycemia. Thank you.
[2016-10-26] MEDS ORDERED: METOPROLOL TARTRATE 1 MG/ML VIAL ONE (17:20)
--- NOTE | 2016-10-26 18:03 | PROGRESS NOTE ---
DATE: 10/26/2016 SUBJECTIVE: Rogelio is seen at the bedside today in the ICU, he is arousable, remains confused, and does not appear to be in any pain. OBJECTIVE: Right hand has a well healing surgical incision. No purulence, no drainage. He has resolution of infection, no erythema. ASSESSMENT: 1. Postop day #3 amputation, right middle finger. 2. Sepsis. PLAN: At this point in time, should not require any further orthopedic treatment, may do dry sterile dressing changes once a day. He should follow up with me in 3 weeks as I would wait a minimum of 3 weeks to remove the stitches due to delayed wound healing from diabetes. Will sign off. Please call if any questions arise. RENETTA
[2016-10-26] MEDS ORDERED: HydrALAZINE HCL 20 MG/ML VIAL IV. PRN (18:45)
[2016-10-26] MEDS ORDERED: LABETALOL HCL IV 5 MG/ML 20ML IV PRN (18:45)
--- NOTE | 2016-10-26 18:46 | Progress Note ---
Medicine Progress Note Date & Time of Visit: Oct 26, 2016 at 18:40. Subjective Patient seen and examined. Extubated today. Awake but drowsy. Does state name when asked. Objective Last 8 Hrs Date Time Temp Pulse Resp B/P Pulse Ox O2 Delivery O2 Flow Rate FiO2 10/26/16 18:00 38.1 90 28 178/80 96 Nasal Cannula 2.0 10/26/16 17:26 94 173/98 10/26/16 16:00 Nasal Cannula 2.0 10/26/16 16:00 38.2 100 27 173/97 94 Nasal Cannula 2.0 10/26/16 14:00 38.3 96 29 152/81 96 Nasal Cannula 2.0 10/26/16 12:00 30 10/26/16 12:00 38.1 104 30 149/73 97 CPAP 30 Mechanical Ventilator 10/26/16 12:00 CPAP 30 Mechanical Ventilator 10/26/16 11:10 30 10/26/16 10:59 38.1 110 24 166/84 97 CPAP 30 Mechanical Ventilator 10/26/16 10:58 38.1 110 31 166/84 97 CPAP 30 Mechanical Ventilator Physical Exam: General-drowsy Eyes-EOMI intact; no scleral icterus Neck-no stridor; trachea midline Lungs-coarse breath sounds anteriorly Heart-RRR; no m/r/g Abdomen-soft; NTND; nBS Extremities-right hand bandage c/d/i; left extremity stump c/d/i Neuro-unable to asses as drowsy and delirious Laboratory Results: Last 24 Hours Test 10/25/16 20:52 10/25/16 23:55 10/26/16 03:28 10/26/16 03:46 Bedside Glucose 93 mg/dl 124 mg/dl 104 mg/dl White Blood Count 10.33 K/uL Red Blood Count 3.33 M/uL Hemoglobin 9.9 g/dL Hematocrit 29.1 % Mean Corpuscular Volume 87.4 fL Mean Corpuscular Hemoglobin 29.7 pg Mean Corpuscular Hemoglobin Concent 34.0 g/dl Platelet Count 153 K/uL Mean Platelet Volume 9.5 fL Neutrophils (%) (Auto) 77.8 % Lymphocytes (%) (Auto) 10.7 % Monocytes (%) (Auto) 8.7 % Eosinophils (%) (Auto) 1.2 % Basophils (%) (Auto) 0.2 % Neutrophils # (Auto) 8.04 K/uL Lymphocytes # (Auto) 1.11 K/uL Monocytes # (Auto) 0.90 K/uL Eosinophils # (Auto) 0.12 K/uL Basophils # (Auto) 0.02 K/uL RDW Standard Deviation 45.9 fL RDW Coefficient of Variation 14.2 % Immature Granulocyte % (Auto) 1.4 % Immature Granulocyte # (Auto) 0.14 K/uL Sodium Level 141 mmol/L Potassium Level 4.0 mmol/L Chloride Level 104 mmol/L Carbon Dioxide Level 28 mmol/L Anion Gap 9.0 mmol/L Blood Urea Nitrogen 61 mg/dl Creatinine 1.90 mg/dl Est Creatinine Clear Calc Drug Dose 51.6 ml/min Estimated GFR () 41.9 Estimated GFR (Non- 36.2 BUN/Creatinine Ratio 32.0 Random Glucose 99 mg/dl Calcium Level 8.4 mg/dl Phosphorus Level 3.0 mg/dl Magnesium Level 2.9 mg/dl Digoxin Level 1.4 ng/ml Test 10/26/16 06:28 10/26/16 11:26 10/26/16 18:20 Bedside Glucose 109 mg/dl 142 mg/dl 202 mg/dl Assessment & Plan Severe sepsis -likely from the necrotic, gangrenous middle right finger -Orthopedics consulted -s/p right middle finger amputation and I&D of hand on 10/24 -ID consulted -received Zosyn, daptomycin and clindamycin (for 48hrs for potential antitoxin agents) -continue Zosyn -blood cultures from 10/23 with MSSA -repeat blood cultures from 10/24 ngtd -wound cultures with providencia, staphylococcus, streptococcus Acute respiratory failure secondary to metabolic encephalopathy -intubated 10/23 - 10/26 -wean supplemental oxygen as able -BiPAP PRN for respiratory support -diuresis with furosemide (fluid positive from fluid resuscitation) Acute renal failure -possibly related to sepsis -baseline creatinine is around 1.3-1.4 -continue holding losartan -received gentle hydration -downtrending History of nonischemic cardiomyopathy -ejection fraction around 15-20% -continue aspirin -resume atorvastatin once clinically improved -diuresis with furosemide (outpatient dose of 80mg BID) -resume losartan, metoprolol, metolazone, ISMN once clinically improved Elevation troponin -likely due to demand ischemia from sepsis and ARF -downtrended -TTE showing no change from previous Type 2 DM -hba1c 9.6 -continue insulin -glycemic pharmacy consulted Hypothyroidism -continue Synthroid DVT prophylaxis with heparin sq GI prophylaxis with famotidine Consultants: Supervisor Operations ID Ortho Procedures: TTE * Compared to the prior study dated 12/11/15, there is persistent severe LV systolic dysfunction. CT head No acute intracranial findings Current Inpatient Medications: Current Inpatient Medications Medications (Trade) Dose Ordered Sig/Ifeanyi Route Start Time Stop Time Status Last Admin Dose Admin Lactobacillus Acidophilus (Floranex Tab) 1 tab TID PO 10/23/16 14:00 11/22/16 13:59 10/26/16 08:51 1 TAB Sertraline HCl 100 mg 100 mg DAILY PO 10/24/16 09:00 11/23/16 08:59 10/26/16 08:51 100 MG Piperacillin Sod/ Tazobactam Sod/ Dextrose (Zosyn Iv/D5 100ml) 120 ml @ 30 mls/hr Q8H IV 10/23/16 16:00 11/02/16 15:59 10/26/16 16:08 30 MLS/HR Miscellaneous Information (Consult Glycemic Management Pharmacy) 1 ea UD PRN N/A 10/23/16 14:30 11/22/16 14:29 Heparin Sodium (Porcine) (Heparin Sq 5000 Unit/0.5ml) 5,000 unit Q8 SQ 10/23/16 14:00 11/22/16 13:59 10/26/16 13:41 5,000 UNIT Piperacillin Sod/ Tazobactam Sod 1 ea 1 ea UD PRN N/A 10/23/16 14:30 11/22/16 14:29 Acetaminophen 650 mg/Empty Bag 65 ml @ 260 mls/hr Q6H PRN IV 10/24/16 00:45 11/23/16 00:44 10/26/16 03:40 260 MLS/HR Famotidine/ Dextrose (Pepcid IV Inj/ D5 100ml) 102 ml @ 204 mls/hr Q12H IV 10/24/16 09:00 11/23/16 08:59 10/26/16 08:50 204 MLS/HR Fentanyl Citrate (Fentanyl Inj) 50 mcg Q2H PRN IV 10/24/16 10:15 11/07/16 10:14 10/25/16 13:07 50 MCG Multi-Ingredient Ointment (Eucerin Unscented Cr) 1 appln BID EXT 10/24/16 21:00 11/23/16 20:59 10/26/16 08:52 1 APPLN Aspirin (Aspirin Chew) 81 mg DAILY PO 10/26/16 09:00 11/25/16 08:59 10/26/16 08:52 81 MG Levothyroxine Sodium (Synthroid Tab) 50 mcg DAILYBB PO 10/25/16 11:00 11/24/16 10:59 10/26/16 06:00 50 MCG Docusate Sodium (coLACE SYRUP) 100 mg BID PO 10/25/16 21:00 11/24/16 20:59 10/26/16 08:50 100 MG Insulin Aspart SLIDING SCALE G... Q6 SC 10/26/16 12:00 11/25/16 11:59 10/26/16 18:23 5 UNITS Furosemide/Syringe (Lasix Inj/ Syringe) 4 ml @ 4 mls/min BID17 IV 10/26/16 09:00 11/25/16 08:59 10/26/16 16:10 4 MLS/MIN Enteral Nutritional Formula (Peptamen Intense VHP) 1,000 ml CONTINUOUS OG 10/26/16 09:15 11/25/16 09:14 Insulin Detemir (Levemir Flexpen/ FlexTouch) Give 0 units if BSG l... BID SC 10/26/16 21:00 11/25/16 20:59 Metoprolol Tartrate (Lopressor Iv) 5 mg Q6 IV. 10/27/16 00:00 11/26/16 00:00 Labetalol HCl (Normodyne IV) 20 mg Q1H PRN IV 10/26/16 18:45 11/25/16 18:44 Hydralazine HCl (HydrALAZINE INJ) 10 mg Q4H PRN IV. 10/26/16 18:45 11/25/16 18:44
--- NOTE | 2016-10-26 19:52 | Infectious Disease Progress Nt ---
Progress Note Date of Service Oct 26, 2016. Subjective Pt evaluation today including: conversation w/ patient, physical exam, chart review, lab review, review of studies, conversation w/ toy consultant, review of inpatient medication list patient is excessively extubated today. Currently without respiratory distress. Hemodynamically stable. Orthopedic follow-up noted. Remains afebrile. All Other Systems: Reviewed and Negative Medications Current Inpatient Medications Medications (Trade) Dose Ordered Sig/Ifeanyi Route Start Time Stop Time Status Last Admin Dose Admin Lactobacillus Acidophilus (Floranex Tab) 1 tab TID PO 10/23/16 14:00 11/22/16 13:59 10/26/16 08:51 1 TAB Sertraline HCl 100 mg 100 mg DAILY PO 10/24/16 09:00 11/23/16 08:59 10/26/16 08:51 100 MG Piperacillin Sod/ Tazobactam Sod/ Dextrose (Zosyn Iv/D5 100ml) 120 ml @ 30 mls/hr Q8H IV 10/23/16 16:00 11/02/16 15:59 10/26/16 16:08 30 MLS/HR Miscellaneous Information (Consult Glycemic Management Pharmacy) 1 ea UD PRN N/A 10/23/16 14:30 11/22/16 14:29 Heparin Sodium (Porcine) (Heparin Sq 5000 Unit/0.5ml) 5,000 unit Q8 SQ 10/23/16 14:00 11/22/16 13:59 10/26/16 13:41 5,000 UNIT Piperacillin Sod/ Tazobactam Sod 1 ea 1 ea UD PRN N/A 10/23/16 14:30 11/22/16 14:29 Acetaminophen 650 mg/Empty Bag 65 ml @ 260 mls/hr Q6H PRN IV 10/24/16 00:45 11/23/16 00:44 10/26/16 03:40 260 MLS/HR Famotidine/ Dextrose (Pepcid IV Inj/ D5 100ml) 102 ml @ 204 mls/hr Q12H IV 10/24/16 09:00 11/23/16 08:59 10/26/16 08:50 204 MLS/HR Fentanyl Citrate (Fentanyl Inj) 50 mcg Q2H PRN IV 10/24/16 10:15 11/07/16 10:14 10/25/16 13:07 50 MCG Multi-Ingredient Ointment (Eucerin Unscented Cr) 1 appln BID EXT 10/24/16 21:00 11/23/16 20:59 10/26/16 08:52 1 APPLN Aspirin (Aspirin Chew) 81 mg DAILY PO 10/26/16 09:00 11/25/16 08:59 10/26/16 08:52 81 MG Levothyroxine Sodium (Synthroid Tab) 50 mcg DAILYBB PO 10/25/16 11:00 11/24/16 10:59 10/26/16 06:00 50 MCG Docusate Sodium (coLACE SYRUP) 100 mg BID PO 10/25/16 21:00 11/24/16 20:59 10/26/16 08:50 100 MG Insulin Aspart SLIDING SCALE G... Q6 SC 10/26/16 12:00 11/25/16 11:59 10/26/16 18:23 5 UNITS Furosemide/Syringe (Lasix Inj/ Syringe) 4 ml @ 4 mls/min BID17 IV 10/26/16 09:00 11/25/16 08:59 10/26/16 16:10 4 MLS/MIN Enteral Nutritional Formula (Peptamen Intense VHP) 1,000 ml CONTINUOUS OG 10/26/16 09:15 11/25/16 09:14 Insulin Detemir (Levemir Flexpen/ FlexTouch) Give 0 units if BSG l... BID SC 10/26/16 21:00 11/25/16 20:59 Metoprolol Tartrate (Lopressor Iv) 5 mg Q6 IV. 10/27/16 00:00 11/26/16 00:00 Labetalol HCl (Normodyne IV) 20 mg Q1H PRN IV 10/26/16 18:45 11/25/16 18:44 Hydralazine HCl (HydrALAZINE INJ) 10 mg Q4H PRN IV. 10/26/16 18:45 11/25/16 18:44 Objective Vital Signs Date Time Temp Pulse Resp B/P Pulse Ox O2 Delivery O2 Flow Rate FiO2 10/26/16 18:00 38.1 90 28 178/80 96 Nasal Cannula 2.0 10/26/16 17:26 94 173/98 10/26/16 16:00 Nasal Cannula 2.0 10/26/16 16:00 38.2 100 27 173/97 94 Nasal Cannula 2.0 10/26/16 14:00 38.3 96 29 152/81 96 Nasal Cannula 2.0 10/26/16 12:00 30 10/26/16 12:00 38.1 104 30 149/73 97 CPAP 30 Mechanical Ventilator 10/26/16 12:00 CPAP 30 Mechanical Ventilator 10/26/16 11:10 30 10/26/16 10:59 38.1 110 24 166/84 97 CPAP 30 Mechanical Ventilator 10/26/16 10:58 38.1 110 31 166/84 97 CPAP 30 Mechanical Ventilator 10/26/16 09:58 38.0 98 25 152/79 96 CPAP 30 Mechanical Ventilator 10/26/16 08:20 30 10/26/16 08:00 Mechanical Ventilator 30 10/26/16 08:00 Mechanical Ventilator 30 10/26/16 08:00 30 10/26/16 08:00 37.4 98 23 158/95 98 Mechanical Ventilator 30 10/26/16 06:03 89 18 118/66 97 Mechanical Ventilator 30 10/26/16 05:55 30 10/26/16 04:00 Mechanical Ventilator 30 10/26/16 04:00 38.0 84 26 145/65 99 Mechanical Ventilator 30 10/26/16 04:00 30 10/26/16 02:41 30 10/26/16 02:00 37.8 89 23 136/60 98 Mechanical Ventilator 30 10/26/16 00:00 30 10/26/16 00:00 37.5 130/70 99 CPAP Mechanical Ventilator 10/26/16 00:00 CPAP 30 Mechanical Ventilator 10/25/16 23:15 30 10/25/16 22:00 37.8 88 21 /114 97 CPAP Mechanical Ventilator 10/25/16 20:23 30 10/25/16 20:00 38.4 95 25 137/64 99 CPAP Mechanical Ventilator 10/25/16 20:00 30 10/25/16 20:00 CPAP 30 Mechanical Ventilator Physical Exam General Appearance: WD/WN, no apparent distress Eyes: normal inspection, sclerae normal ENT: normal ENT inspection, pharynx normal Neck: supple, trachea midline Respiratory/Chest: chest non-tender, lungs clear, normal breath sounds, no respiratory distress Cardiovascular: regular rate, rhythm, no gallop, no murmur Abdomen: normal bowel sounds, non tender, soft, no organomegaly Extremities: non-tender, no calf tenderness Neurologic/Psychiatric: alert, + disoriented Skin: normal color ( ), warm/dry, + pertinent finding ( surgical dressing intact right hand) Lymphatic: no adenopathy Laboratory Results Last 24 Hours Test 10/25/16 20:52 10/25/16 23:55 10/26/16 03:28 10/26/16 03:46 Bedside Glucose 93 mg/dl 124 mg/dl 104 mg/dl White Blood Count 10.33 K/uL Red Blood Count 3.33 M/uL Hemoglobin 9.9 g/dL Hematocrit 29.1 % Mean Corpuscular Volume 87.4 fL Mean Corpuscular Hemoglobin 29.7 pg Mean Corpuscular Hemoglobin Concent 34.0 g/dl Platelet Count 153 K/uL Mean Platelet Volume 9.5 fL Neutrophils (%) (Auto) 77.8 % Lymphocytes (%) (Auto) 10.7 % Monocytes (%) (Auto) 8.7 % Eosinophils (%) (Auto) 1.2 % Basophils (%) (Auto) 0.2 % Neutrophils # (Auto) 8.04 K/uL Lymphocytes # (Auto) 1.11 K/uL Monocytes # (Auto) 0.90 K/uL Eosinophils # (Auto) 0.12 K/uL Basophils # (Auto) 0.02 K/uL RDW Standard Deviation 45.9 fL RDW Coefficient of Variation 14.2 % Immature Granulocyte % (Auto) 1.4 % Immature Granulocyte # (Auto) 0.14 K/uL Sodium Level 141 mmol/L Potassium Level 4.0 mmol/L Chloride Level 104 mmol/L Carbon Dioxide Level 28 mmol/L Anion Gap 9.0 mmol/L Blood Urea Nitrogen 61 mg/dl Creatinine 1.90 mg/dl Est Creatinine Clear Calc Drug Dose 51.6 ml/min Estimated GFR () 41.9 Estimated GFR (Non- 36.2 BUN/Creatinine Ratio 32.0 Random Glucose 99 mg/dl Calcium Level 8.4 mg/dl Phosphorus Level 3.0 mg/dl Magnesium Level 2.9 mg/dl Digoxin Level 1.4 ng/ml Test 10/26/16 06:28 10/26/16 11:26 10/26/16 18:20 Bedside Glucose 109 mg/dl 142 mg/dl 202 mg/dl Assessment and Plan (1) Severe sepsis Status: Acute Secondary to gangrenous right upper extremity finger POD #4 right third digit amputation of hand Clindamycin and daptomycin held per infectious disease Continue Zosyn Blood cultures growing methicillin sensitive Staph aureus Wound cultures growing Staph aureus, strep, Providencia, Gram-negative bacilli Course of treatment per infectious disease Continue isolation for history of positive MRSA screen in the nares 09/07/15 (2) Septic shock Status: Acute Now hemodynamically stable Continues with fever - Tmax 38.3 Plan on extubation today WBC 10.33 today Lactic acid normal Continue Zosyn per infectious disease (see above) (3) Acute encephalopathy Patient is off sedation for mechanical ventilation Anticipate extubation later today Renal function improving Most likely due to severe sepsis Status post amputation of finger with gangrene Continue antibiotic treatment CT head 10/25/16 negative for acute findings Continue to monitor (4) Elevated troponin I measurement Most likely leak from severe sepsis No ST changes on EKG History of ischemic cardiomyopathy Left ventricular ejection fraction 15-20% Severe global hypokinesis of the left ventricle Left ventricle is severely dilated No evidence of aortic stenosis (5) PATRICIA (acute kidney injury) Improving Creatinine down to 1.9 from 2.2 BUN continues to be elevated 2.3 L ahead for fluid status since admission Continue to monitor serial labs IV fluids held for pulmonary edema Currently requiring diuresis with twice a day furosemide Continue strict I's and O's (6) Necrotic wound of right hand Status: Acute Status post right middle finger amputation with Dr. Henriquez Ortho continues to follow (7) CHF (congestive heart failure) Status: Chronic IV fluids held Patient receiving diuresis twice daily Left ventricular ejection fraction 15-20% Continue to monitor on telemetry Continue strict I's and O's (8) DM type 2 (diabetes mellitus, type 2) Status: Chronic Patient on glyburide and Novolin R at home Hemoglobin A1c 9.6 Continue sliding scale insulin Levemir held Pharmacy consult for glycemic management Continue close monitoring (9) Hypothyroidism Status: Chronic Continue levothyroxine (10) Biventricular ICD (implantable cardioverter-defibrillator) in place Status: Chronic EKG representing pacer spikes Patient be monitored on telemetry (11) CAD (coronary artery disease) Status: Chronic Atorvastatin, imdur, Cozaar, Toprol-XL at home Antihypertensives held secondary to hypotension due to septic shock Resume PO meds as able once patient is extubated (12) History of MRSA infection Status: Chronic Wound cultures with MSSA Positive MRSA screening in nares 09/07/15 Continue isolation protocol Discussed with infection control (13) DVT prophylaxis Heparin subcutaneous Sepsis with septic shock, with methicillin sensitive Staph aureus , secondary to gangrenous right third finger infection now s/p amputation in patient with diabetes and multiple other co-morbidities.wound cultures also positive for Providencia, Strep, and anaerobes. Zosyn should provide adequate coverage, daptomycin and clindamycin have been discontinued. We will continue to follow.
[2016-10-26] MEDS ORDERED: CHLORHEXIDINE GLUCONATE 0.12% 480 ML MT SCH (21:00)
[2016-10-26] MEDS ORDERED: CHLORHEXIDINE GLUCONATE 0.12% 15 ML UDP PO SCH (21:00)
[2016-10-26] MEDS ORDERED: INSULIN DETEMIR FLEXPEN/FLEX TOUCH 100 UNITS/ML 3ML SC SCH (21:00)
[2016-10-27] VITALS (12 sets, daily range): BP systolic 137–186; BP diastolic 68–92; PULSE 60–78; TEMP 36.4–37.4; O2SAT 94–100
[2016-10-27] MEDS: PIPERACILL/TAZOBAC IV 4.5 GM in DEXTROSE 5% 100ML 100 ML IV SCH ×3 (00:36→16:00)
[2016-10-27] MEDS: METOPROLOL TARTRATE 1 MG/ML VIAL IV. SCH ×4 (00:49→17:15)
[2016-10-27] MEDS: INSULIN ASPART 100 UNITS/ML 3 ML PEN SC SCH ×4 (06:00→17:20)
[2016-10-27] MEDS: LEVOTHYROXINE 50 MCG TAB PO SCH (06:00)
[2016-10-27 06:28] LABS: BASO % 0.4 %; BASO ABS # 0.05 K/uL (0-0.2); COMPLETE YES; EOS % 1.2 %; HEMATOCRIT 31.1 % (42-52); IG% 4.6 %; LYMPH % 13.4 %; MEAN CELL VOLUME 86.4 fL (80-100); MEAN CORPUSCULAR HEMOGLOBIN 29.4 pg (25-34); MEAN CORPUSCULAR HGB CONC 34.1 g/dl (32-36); MEAN PLATELET VOLUME 9.7 fL (7.4-10.4); MONO % 7.1 %; NEUT % 73.3 %; PLATELET COUNT 205 K/uL (130-400); WHITE BLOOD COUNT 12.72 K/uL (4.8-10.8)
[2016-10-27] MEDS: HEPARIN SOD 5000 UNIT/0.5 ML CARP SQ SCH ×3 (06:38→21:40)
[2016-10-27 06:58] LABS: BUN/CREATININE RATIO 33.9 (10-20); CALCIUM 8.9 mg/dl (8.5-10.1); CREATININE 1.7 mg/dl (0.60-1.40); MAGNESIUM 2.6 mg/dl (1.8-2.4); POTASSIUM 3.6 mmol/L (3.5-5.1)
[2016-10-27 07:02] LABS: PHOSPHORUS 2.4 mg/dl (2.5-4.9)
[2016-10-27] MEDS: SERTRALINE HCL 100 MG TAB PO SCH (08:29)
[2016-10-27] MEDS: FUROSEMIDE INJ 40 MG in SYRINGE 0 ML IV SCH ×2 (08:29→17:15)
[2016-10-27] MEDS: ASPIRIN 81 MG CHEW PO SCH (08:29)
[2016-10-27] MEDS: DOCUSATE SODIUM 100 MG/10 ML UDC PO SCH ×2 (08:29→21:00)
[2016-10-27] MEDS: FAMOTIDINE IV INJ 20 MG in DEXTROSE 5% 100ML 100 ML IV SCH ×2 (08:29→21:32)
[2016-10-27] MEDS: LACTOBACILLUS ACIDOPHILUS (FLORANEX) TAB PO SCH ×3 (08:29→21:00)
[2016-10-27] MEDS: EUCERIN CR 120 GM JAR EXT SCH ×2 (08:30→21:33)
--- NOTE | 2016-10-27 10:43 | Pharmacy Progress Note ---
Glycemic Control: Progress Nt Date of Service Oct 27, 2016. Scope Glycemic Pharmacist consulted by Dr Aviles on 10/23/16 for glycemic control and to write orders per [facility] inpatient glycemic control protocol. Objective Accuchecks BSG (last 24hrs): Test 10/26/16 11:26 10/26/16 18:20 10/27/16 00:42 10/27/16 06:03 Bedside Glucose 142 mg/dl (70-99) 202 mg/dl (70-99) 132 mg/dl (70-99) Random Glucose 116 mg/dl (70-99) Test 10/27/16 06:31 Bedside Glucose 117 mg/dl (70-99) Laboratory Data (last 24hrs) Test 10/27/16 06:03 Anion Gap 7.0 mmol/L BUN/Creatinine Ratio 33.9 Blood Urea Nitrogen 58 mg/dl Creatinine 1.70 mg/dl Potassium Level 3.6 mmol/L Sodium Level 145 mmol/L White Blood Count 12.72 K/uL Red Blood Count 3.60 M/uL Hemoglobin 10.6 g/dL Hematocrit 31.1 % Mean Corpuscular Volume 86.4 fL Mean Corpuscular Hemoglobin 29.4 pg Mean Corpuscular Hemoglobin Concent 34.1 g/dl Platelet Count 205 K/uL Mean Platelet Volume 9.7 fL Neutrophils (%) (Auto) 73.3 % Lymphocytes (%) (Auto) 13.4 % Monocytes (%) (Auto) 7.1 % Eosinophils (%) (Auto) 1.2 % Basophils (%) (Auto) 0.4 % Neutrophils # (Auto) 9.33 K/uL Lymphocytes # (Auto) 1.70 K/uL Monocytes # (Auto) 0.90 K/uL Eosinophils # (Auto) 0.15 K/uL Basophils # (Auto) 0.05 K/uL HbA1c: Test 10/24/16 04:34 Hemoglobin A1c 9.6 % (4.5-5.6) H Recent Pertinent Medications Outpatient Anti-diabetic Regimen: * Levemir 80 units SQ BID * Novolin R 3 units BID * Glyburide 5mg daily9.6 * A1c = 9.6 % 10/24/16 The patient is currently receiving: * Basal insulin: Levemir 18 units SQ Q 12 hours; hold if BSG less than 120 * Correctional Insulin: Novolog Correction per scale Q 4 hours Goal Range: Low 140 mg/dL - High 160 mg/dL Correction Factor: 10 mg/dL/unit * Prandial insulin: Per carb ratio of 1 unit per 3 grams CHO consumed * Oral Agents: None currently Risk Factors for Insulin Resistance: * Infection: sepsis secondary to finger gangrene; receiving Zosyn * Recent Surgery: POD # 4 * Diet: NPO, awaiting swallow eval Assessment & Plan ASSESSMENT: 10/24/16 * 65 yo M with significant stressors admitted to ICU for septic shock 2/2 finger cellulitis. Patient is POD #1 s/p amputation of gangrenous finger. * Patient remains intubated post-op. * Patient was hypoglycemic yesterday afternoon. Suspect that this is d/t pt taking his basal insulin in the morning and then being NPO for OR. Patient's outpatient regimen is heavily weighted towards basal, so expect hypoglycemia to result during NPO periods. * Patient was given a significantly reduced dose of Levemir (25% of normal home dose) this morning, and further dosing will be guided by BSGs. * Will continue q4h accu-checks overnight to ensure that patient's BSGs remain stable. 10/25/16 * Patient's BSGs ranged 96-208 over the last 24 hrs * Fasting BSG 208 this AM with 60 units of Levemir on board and after receiving 5 units Novolog correction overnight. Anticipate basal insulin needs to be ~60- 70 units/day with current stressors and while NPO. This basal requirement would be similar to that required on prior admissions. Will order a set Levemir dose with hold parameter * Novolog CF and CR are reasonable starting points. CF has prevented BSGs from climbing rapidly. BSGs have leveled off with use of current CF. Primary insulin deficiency appears to be basal at this time. * Patient remains intubated, however there may be an attempt to extubate later today 10/26/16 * BSGs did drop throughout the day yesterday, lowest BSG 93 HS last evening. * All BSGs over last 24 hours reflective of fasting state at enteral feedings not started; last BSG 142, so starting to rebound after hold AM Levemir * Held Levemir dose this AM due to BSGs being lower than desired for ICU patient and continued NPO status * Patient is now extubated, will need a HAND OUTSIDE CUTTER eval before diet resumed, no tube feeds at this time * Given uncertainty with dietary intake and lessening stressors I feel it best to reduce his basal insulin dose by 50% and add a hold parameter 10/27/16 * Glycemic control acceptable over last 24 hours, BSGs ranged 109-202 (only one BSG above 180) * BSGs are reflective of a fasting state as he is awaiting swallow eval to have a diet ordered. Last BSG 117, with 36 units Levemir on board * Will hold Levemir dose this AM as pt remains NPO still, glycogen stores probably running low at this point. Fasting BSGs in the 140's range would be acceptable given illness severity, ICU admission. Will reduce Levemir dose further if he does not begin and tolerate a diet today PLAN FOR INPATIENT GLYCEMIC CONTROL: * Continue Levemir 18 units SQ BID - hold if BSG less than 120 for time being; if diet not advanced will reduce dose further * Continuing correction factor of 10 mg/dl/unit * Continuing carb ratio of 1 unit per 3 grams CHO consumed * Continuing goal range of Low 140 mg/dL - High 160 mg/dL * Please note that the plan above was derived based on current level of insulin resistance and hospital stress. These recommendations are appropriate for inpatient admission only. Plan of care upon discharge will need to be reassessed to avoid potential outpatient hypo/hyperglycemia. Thank you.
[2016-10-27] MEDS ORDERED: BISACODYL 10 MG SUPP PR PRN (11:30)
[2016-10-27] MEDS ORDERED: BISACODYL 10 MG SUPP PR SCH (11:45)
--- NOTE | 2016-10-27 15:51 | CRITICAL CARE PROGRESS NOTE ---
DATE: 10/27/2016 DATE: 10/27/2016. GENERAL INFORMATION: This is a 65-year-old gentleman status post right middle finger amputation for gangrene resulting in septic shock. He was extubated yesterday and was confused overnight. He is wearing BiPAP 15/5 t.i.d. for 1 hour as he is unable to participate with incentive spirometry. There were no acute events overnight and his care was discussed in detail on multidisciplinary rounds today. His hematuria has improved and he now requires a 1:1 supervision secondary to confusion and agitation. PHYSICAL EXAMINATION: VITAL SIGNS: Maximum temperature 38.3, heart rate 60-90, respiratory rate 28, blood pressure 130-170/80s, oxygen saturation 97%. 24-hour fluid balance 2.2 liters negative. He is wearing 2 liters nasal cannula in between BiPAP. He has not had a bowel movement since admission. GENERAL: On exam, he is on the BiPAP and shakes his head yes and no. NEUROLOGIC: He is oriented to person but not place. He answers simple questions, but his speech is difficult to understand. He follows commands and moves all 4 extremities. LUNGS: Bibasilar rales, no rhonchi or wheezes. HEART: Regular rate and rhythm. ABDOMEN: Obese, firm, nontender, active bowel sounds. EXTREMITIES: With the right hand dressed with a Kerlix, which is clean, dry and intact. Capillary refill within normal limits. The left hand is missing multiple fingers. He has a left below the knee amputation, the skin of which over the stump is less erythematous than previously and the right lower extremity shows no edema and has multiple areas of different scabs and scarring. There is no edema. MEDICATIONS: Acetaminophen, aspirin, Colace, Pepcid, fentanyl, Lasix, heparin, insulin sliding scale, Levemir insulin, labetalol, Floranex, levothyroxine, Lopressor, Zosyn day 5, Zoloft. MICROBIOLOGY DATA was reviewed. He is now growing anaerobic gram negative bacilli in his bacterial culture from his incision site. This is along with Providencia rettgeri, Staphylococcus aureus and gamma strep, not enterococcus. Follow-up blood cultures are still negative from 10/24/2016. Wound culture with staph aureus, alpha strep and probable gram negative bacilli. LABORATORY DATA: White blood cell count 12.72, hemoglobin 10.6, hematocrit 31.1, platelets 205. Sodium 145, potassium 3.6, chloride 107, CO2 31, BUN 58, creatinine 1.7. Portable chest x-ray from this morning was reviewed and shows resolving pulmonary vascular congestion. IMPRESSIONS: 1. 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 2. Septic shock, resolved. However, he still had a maximum temperature of 38.3 yesterday. 3. Staph aureus bacteremia. 4. Acute hypoxemic respiratory failure, extubated 10/26/2016. 5. Metabolic encephalopathy with delirium. 6. Acute kidney injury, improved. 7. History of nonischemic cardiomyopathy. 8. Diabetes mellitus type 2. 9. History of biventricular automatic implantable cardioverter-defibrillator. 10. History of hypothyroidism. 11. Constipation. PLAN: NEUROLOGIC: CT of the brain was negative. Avoid sedatives and continue reorientation. His reports that after his last bout of sepsis he was extremely confused. PULMONARY: I have ordered BiPAP 15/5 1 hour t.i.d. and will add at bedtime. He is unable to participate with incentive spirometry. Continue bronchodilators and he will likely need to be lifted out of bed, but that will help his pulmonary toilet. CARDIOVASCULAR: I do not think he has been cleared from speech to swallow yet. He is hypertensive and getting labetalol as well as hydralazine. Once he is able to take p.o., we can resume his aspirin and Toprol-XL. Additionally, he has been on isosorbide mononitrate, consider adding some nitro paste. Continue diuresis. RENAL: Creatinine is getting better. The antibiotic dosing may need to be adjusted. Continue Lasix 40 mg IV b.i.d. ENDOCRINE: Synthroid was started yesterday. Glycemic consult and adjustment of insulin per pharmacy. GASTROINTESTINAL: Still awaiting a swallowing evaluation. Hopefully, he will be able to eat soon. Consider adding multivitamin to his regimen. Continue GI prophylaxis. I have added Dulcolax suppository today for his constipation. HEMATOLOGY: Continue heparin subcutaneously for DVT prophylaxis. INFECTIOUS DISEASE: Continue Zosyn. Await further recommendations by the infectious disease service for a length of IV antibiotic therapy. I suspect this will be 14 days and he will potentially need a PICC line. He has a right internal jugular triple lumen catheter and his creatinine is improving to the point where he may be a candidate for that PICC line soon. MISCELLANEOUS: Right IJ triple lumen catheter day #6. Please discontinue this as soon as feasible. Continue physical therapy and occupational therapy. He is stable for transfer to step down. MTDD
--- NOTE | 2016-10-27 18:23 | Progress Note ---
Medicine Progress Note Date & Time of Visit: Oct 27, 2016 at 18:19. Subjective Patient seen and examined. More awake and interactive today. Answering questions appropriately. present at bedside. Objective Last 8 Hrs Date Time Temp Pulse Resp B/P Pulse Ox O2 Delivery O2 Flow Rate FiO2 10/27/16 17:15 71 154/72 10/27/16 16:00 99 BiPAP 10/27/16 14:44 36.7 60 16 152/71 99 BiPAP 10/27/16 12:54 71 159/80 10/27/16 12:40 36.8 65 26 94 10/27/16 12:00 67 14 159/80 100 BiPAP Physical Exam: General-awake; alert; NAD Eyes-EOMI intact; no scleral icterus Neck-no stridor; trachea midline; skin breakdown at nape of neck Lungs-CTA bilaterally; no wheezes/crackles Heart-RRR; no m/r/g Abdomen-soft; NTND; nBS Extremities-right hand bandage c/d/i; left extremity stump c/d/i Neuro-oriented to person and time, not to place; answering questions appropriately Laboratory Results: Last 24 Hours Test 10/26/16 18:20 10/27/16 00:42 10/27/16 06:03 10/27/16 06:31 Bedside Glucose 202 mg/dl 132 mg/dl 117 mg/dl White Blood Count 12.72 K/uL Red Blood Count 3.60 M/uL Hemoglobin 10.6 g/dL Hematocrit 31.1 % Mean Corpuscular Volume 86.4 fL Mean Corpuscular Hemoglobin 29.4 pg Mean Corpuscular Hemoglobin Concent 34.1 g/dl Platelet Count 205 K/uL Mean Platelet Volume 9.7 fL Neutrophils (%) (Auto) 73.3 % Lymphocytes (%) (Auto) 13.4 % Monocytes (%) (Auto) 7.1 % Eosinophils (%) (Auto) 1.2 % Basophils (%) (Auto) 0.4 % Neutrophils # (Auto) 9.33 K/uL Lymphocytes # (Auto) 1.70 K/uL Monocytes # (Auto) 0.90 K/uL Eosinophils # (Auto) 0.15 K/uL Basophils # (Auto) 0.05 K/uL RDW Standard Deviation 44.3 fL RDW Coefficient of Variation 13.9 % Immature Granulocyte % (Auto) 4.6 % Immature Granulocyte # (Auto) 0.59 K/uL Sodium Level 145 mmol/L Potassium Level 3.6 mmol/L Chloride Level 107 mmol/L Carbon Dioxide Level 31 mmol/L Anion Gap 7.0 mmol/L Blood Urea Nitrogen 58 mg/dl Creatinine 1.70 mg/dl Est Creatinine Clear Calc Drug Dose 57.6 ml/min Estimated GFR () 48.0 Estimated GFR (Non- 41.4 BUN/Creatinine Ratio 33.9 Random Glucose 116 mg/dl Calcium Level 8.9 mg/dl Phosphorus Level 2.4 mg/dl Magnesium Level 2.6 mg/dl Test 10/27/16 12:09 10/27/16 16:27 Bedside Glucose 144 mg/dl 209 mg/dl Assessment & Plan Severe sepsis -likely from the necrotic, gangrenous middle right finger -Orthopedics consulted -s/p right middle finger amputation and I&D of hand on 10/24 -ID consulted -received Zosyn, daptomycin and clindamycin (for 48hrs for potential antitoxin agents) -continue Zosyn -blood cultures from 10/23 with MSSA -repeat blood cultures from 10/24 ngtd -wound cultures with providencia, staphylococcus, streptococcus Acute respiratory failure secondary to metabolic encephalopathy -intubated 10/23 - 10/26 -wean supplemental oxygen as able -BiPAP PRN for respiratory support -improved Acute renal failure -possibly related to sepsis -baseline creatinine is around 1.3-1.4 -continue holding losartan -received hydration -downtrending History of nonischemic cardiomyopathy -ejection fraction around 15-20% -resume aspirin once cleared by Speech for PO -resume atorvastatin once cleared by Speech for PO -diuresis with furosemide (outpatient dose of 80mg BID) -resume losartan, metoprolol, metolazone, ISMN once cleared by Speech for PO Elevation troponin -likely due to demand ischemia from sepsis and ARF -downtrended -TTE showing no change from previous Type 2 DM -hba1c 9.6 -continue insulin -glycemic pharmacy consulted Hypothyroidism -resume Synthroid once cleared by Speech for PO DVT prophylaxis with heparin sq GI prophylaxis with famotidine PT recommending discharge to rehab vs SNF. Consultants: Multimedia Assistant ID Ortho Procedures: TTE * Compared to the prior study dated 12/11/15, there is persistent severe LV systolic dysfunction. CT head No acute intracranial findings Current Inpatient Medications: Current Inpatient Medications Medications (Trade) Dose Ordered Sig/Ifeanyi Route Start Time Stop Time Status Last Admin Dose Admin Lactobacillus Acidophilus (Floranex Tab) 1 tab TID PO 10/23/16 14:00 11/22/16 13:59 10/27/16 08:29 1 TAB Sertraline HCl 100 mg 100 mg DAILY PO 10/24/16 09:00 11/23/16 08:59 10/27/16 08:29 100 MG Piperacillin Sod/ Tazobactam Sod/ Dextrose (Zosyn Iv/D5 100ml) 120 ml @ 30 mls/hr Q8H IV 10/23/16 16:00 11/02/16 15:59 10/27/16 16:00 30 MLS/HR Miscellaneous Information (Consult Glycemic Management Pharmacy) 1 ea UD PRN N/A 10/23/16 14:30 11/22/16 14:29 Heparin Sodium (Porcine) (Heparin Sq 5000 Unit/0.5ml) 5,000 unit Q8 SQ 10/23/16 14:00 11/22/16 13:59 10/27/16 14:00 5,000 UNIT Piperacillin Sod/ Tazobactam Sod 1 ea 1 ea UD PRN N/A 10/23/16 14:30 11/22/16 14:29 Acetaminophen 650 mg/Empty Bag 65 ml @ 260 mls/hr Q6H PRN IV 10/24/16 00:45 11/23/16 00:44 10/26/16 03:40 260 MLS/HR Famotidine/ Dextrose (Pepcid IV Inj/ D5 100ml) 102 ml @ 204 mls/hr Q12H IV 10/24/16 09:00 11/23/16 08:59 10/27/16 08:29 204 MLS/HR Fentanyl Citrate (Fentanyl Inj) 50 mcg Q2H PRN IV 10/24/16 10:15 11/07/16 10:14 10/25/16 13:07 50 MCG Multi-Ingredient Ointment (Eucerin Unscented Cr) 1 appln BID EXT 10/24/16 21:00 11/23/16 20:59 10/27/16 08:30 1 APPLN Aspirin (Aspirin Chew) 81 mg DAILY PO 10/26/16 09:00 11/25/16 08:59 10/27/16 08:29 81 MG Levothyroxine Sodium (Synthroid Tab) 50 mcg DAILYBB PO 10/25/16 11:00 11/24/16 10:59 10/26/16 06:00 50 MCG Docusate Sodium (coLACE SYRUP) 100 mg BID PO 10/25/16 21:00 11/24/16 20:59 10/27/16 08:29 100 MG Insulin Aspart SLIDING SCALE G... Q6 SC 10/26/16 12:00 11/25/16 11:59 10/27/16 17:20 5 UNITS Furosemide/Syringe (Lasix Inj/ Syringe) 4 ml @ 4 mls/min BID17 IV 10/26/16 09:00 11/25/16 08:59 10/27/16 17:15 4 MLS/MIN Metoprolol Tartrate (Lopressor Iv) 5 mg Q6 IV. 10/27/16 00:00 11/26/16 00:00 10/27/16 17:15 5 MG Labetalol HCl (Normodyne IV) 20 mg Q1H PRN IV 10/26/16 18:45 11/25/16 18:44 Hydralazine HCl (HydrALAZINE INJ) 10 mg Q4H PRN IV. 10/26/16 18:45 11/25/16 18:44 Bisacodyl (Dulcolax Supp) 10 mg DAILY PRN SC 10/27/16 11:30 11/26/16 11:29 Insulin Detemir (Levemir Flexpen/ FlexTouch) 7 units if BSG less than ... BID SC 10/27/16 21:00 11/26/16 20:59
--- NOTE | 2016-10-27 19:28 | Infectious Disease Progress Nt ---
Progress Note Date of Service Oct 27, 2016. Subjective Pt evaluation today including: physical exam, chart review, lab review, review of studies, conversation w/ sap pp consultant, review of inpatient medication list Awake and more oriented today. Offers no new specific complaints. Remains afebrile. Continues to tolerate antibiotics. All Other Systems: Reviewed and Negative Medications Current Inpatient Medications Medications (Trade) Dose Ordered Sig/Ifeanyi Route Start Time Stop Time Status Last Admin Dose Admin Lactobacillus Acidophilus (Floranex Tab) 1 tab TID PO 10/23/16 14:00 11/22/16 13:59 10/27/16 08:29 1 TAB Sertraline HCl 100 mg 100 mg DAILY PO 10/24/16 09:00 11/23/16 08:59 10/27/16 08:29 100 MG Piperacillin Sod/ Tazobactam Sod/ Dextrose (Zosyn Iv/D5 100ml) 120 ml @ 30 mls/hr Q8H IV 10/23/16 16:00 11/02/16 15:59 10/27/16 16:00 30 MLS/HR Miscellaneous Information (Consult Glycemic Management Pharmacy) 1 ea UD PRN N/A 10/23/16 14:30 11/22/16 14:29 Heparin Sodium (Porcine) (Heparin Sq 5000 Unit/0.5ml) 5,000 unit Q8 SQ 10/23/16 14:00 11/22/16 13:59 10/27/16 14:00 5,000 UNIT Piperacillin Sod/ Tazobactam Sod 1 ea 1 ea UD PRN N/A 10/23/16 14:30 11/22/16 14:29 Acetaminophen 650 mg/Empty Bag 65 ml @ 260 mls/hr Q6H PRN IV 10/24/16 00:45 11/23/16 00:44 10/26/16 03:40 260 MLS/HR Famotidine/ Dextrose (Pepcid IV Inj/ D5 100ml) 102 ml @ 204 mls/hr Q12H IV 10/24/16 09:00 11/23/16 08:59 10/27/16 08:29 204 MLS/HR Fentanyl Citrate (Fentanyl Inj) 50 mcg Q2H PRN IV 10/24/16 10:15 11/07/16 10:14 10/25/16 13:07 50 MCG Multi-Ingredient Ointment (Eucerin Unscented Cr) 1 appln BID EXT 10/24/16 21:00 11/23/16 20:59 10/27/16 08:30 1 APPLN Aspirin (Aspirin Chew) 81 mg DAILY PO 10/26/16 09:00 11/25/16 08:59 10/27/16 08:29 81 MG Levothyroxine Sodium (Synthroid Tab) 50 mcg DAILYBB PO 10/25/16 11:00 11/24/16 10:59 10/26/16 06:00 50 MCG Docusate Sodium (coLACE SYRUP) 100 mg BID PO 10/25/16 21:00 11/24/16 20:59 10/27/16 08:29 100 MG Insulin Aspart SLIDING SCALE G... Q6 SC 10/26/16 12:00 11/25/16 11:59 10/27/16 17:20 5 UNITS Furosemide/Syringe (Lasix Inj/ Syringe) 4 ml @ 4 mls/min BID17 IV 10/26/16 09:00 11/25/16 08:59 10/27/16 17:15 4 MLS/MIN Metoprolol Tartrate (Lopressor Iv) 5 mg Q6 IV. 10/27/16 00:00 11/26/16 00:00 10/27/16 17:15 5 MG Labetalol HCl (Normodyne IV) 20 mg Q1H PRN IV 10/26/16 18:45 11/25/16 18:44 Hydralazine HCl (HydrALAZINE INJ) 10 mg Q4H PRN IV. 10/26/16 18:45 11/25/16 18:44 Bisacodyl (Dulcolax Supp) 10 mg DAILY PRN VT 10/27/16 11:30 11/26/16 11:29 Insulin Detemir (Levemir Flexpen/ FlexTouch) 7 units if BSG less than ... BID SC 10/27/16 21:00 11/26/16 20:59 Objective Vital Signs Date Time Temp Pulse Resp B/P Pulse Ox O2 Delivery O2 Flow Rate FiO2 10/27/16 19:06 37.1 75 13 186/80 94 Nasal Cannula 2.0 10/27/16 17:15 71 154/72 10/27/16 16:00 99 BiPAP 10/27/16 14:44 36.7 60 16 152/71 99 BiPAP 10/27/16 12:54 71 159/80 10/27/16 12:40 36.8 65 26 94 10/27/16 12:00 67 14 159/80 100 BiPAP 10/27/16 08:00 36.7 73 14 137/92 100 Nasal Cannula 2.0 10/27/16 08:00 Nasal Cannula 2.0 10/27/16 08:00 Nasal Cannula BiPAP 10/27/16 06:36 73 10/27/16 06:35 37.0 61 9 155/80 97 Nasal Cannula 2.0 10/27/16 04:00 Nasal Cannula 2.0 10/27/16 03:59 37.2 78 16 176/85 96 Nasal Cannula 2.0 10/27/16 03:36 Nasal Cannula 2.0 10/27/16 01:59 37.4 64 10 137/68 95 Nasal Cannula 2.0 10/27/16 00:49 90 10/26/16 23:59 Nasal Cannula 2.0 10/26/16 23:59 37.5 85 12 165/85 Nasal Cannula 2.0 10/26/16 22:00 37.7 90 15 167/89 97 BiPAP 10/26/16 20:51 87 94 2.0 10/26/16 20:00 37.9 82 21 151/82 95 Nasal Cannula 2.0 10/26/16 20:00 Nasal Cannula 2.0 Physical Exam General Appearance: WD/WN, no apparent distress Eyes: normal inspection, sclerae normal ENT: normal ENT inspection, pharynx normal Neck: supple, no adenopathy, trachea midline Respiratory/Chest: chest non-tender, lungs clear, normal breath sounds, no respiratory distress Cardiovascular: regular rate, rhythm, no gallop, no murmur Abdomen: normal bowel sounds, non tender, soft, no organomegaly Extremities: non-tender, + pertinent finding (Left leg amputation) Neurologic/Psychiatric: alert, + pertinent finding (Oriented to person) Skin: normal color, no rash, + pertinent finding (Surgical dressing remains intact) Lymphatic: no adenopathy Laboratory Results RUN DATE: 10/27/16 [facility] LAB PAGE 1 RUN TIME: 906 Specimen Inquiry PATIENT: LUZ CRUZ LOC: [facility] U # : [id number] AGE/SX: 65/M ROOM: [facility] REG : 10/23/[address]: Ita Saldana : 1950 BED: 1 DIS : STATUS: ADM IN TLOC: SPEC #: [id number] JONATHAN: 10/25/16 STATUS: COMP REQ #: [id number] RECD: 10/25/[address]: Kailee Barrera MD SOURCE: SPUTUM ENTR: 10/25/[address]: Scout Daniels [facility] T Catracho Simmons MD Love, Lauren ., CECI No Doctor, Assigned Francois Aviles MD Shippert, Brian W. , D.OIta Martin MD ORDERED: SPUT CULT/SMR COMMENTS: Has Specimen Been Obtained/Collected? Y Procedure Result Verified Site GRAM STAIN Final 10/25/16-1153 RESULT MANY POLYS FEW GRAM POSITIVE BACILLI FEW GRAM POSITIVE COCCI RARE EPITHELIAL CELLS SPUTUM CULTURE Final 10/27/16-906 LIGHT NORMAL COMFORT. Last 24 Hours Test 10/27/16 00:42 10/27/16 06:03 10/27/16 06:31 10/27/16 12:09 Bedside Glucose 132 mg/dl 117 mg/dl 144 mg/dl White Blood Count 12.72 K/uL Red Blood Count 3.60 M/uL Hemoglobin 10.6 g/dL Hematocrit 31.1 % Mean Corpuscular Volume 86.4 fL Mean Corpuscular Hemoglobin 29.4 pg Mean Corpuscular Hemoglobin Concent 34.1 g/dl Platelet Count 205 K/uL Mean Platelet Volume 9.7 fL Neutrophils (%) (Auto) 73.3 % Lymphocytes (%) (Auto) 13.4 % Monocytes (%) (Auto) 7.1 % Eosinophils (%) (Auto) 1.2 % Basophils (%) (Auto) 0.4 % Neutrophils # (Auto) 9.33 K/uL Lymphocytes # (Auto) 1.70 K/uL Monocytes # (Auto) 0.90 K/uL Eosinophils # (Auto) 0.15 K/uL Basophils # (Auto) 0.05 K/uL RDW Standard Deviation 44.3 fL RDW Coefficient of Variation 13.9 % Immature Granulocyte % (Auto) 4.6 % Immature Granulocyte # (Auto) 0.59 K/uL Sodium Level 145 mmol/L Potassium Level 3.6 mmol/L Chloride Level 107 mmol/L Carbon Dioxide Level 31 mmol/L Anion Gap 7.0 mmol/L Blood Urea Nitrogen 58 mg/dl Creatinine 1.70 mg/dl Est Creatinine Clear Calc Drug Dose 57.6 ml/min Estimated GFR () 48.0 Estimated GFR (Non- 41.4 BUN/Creatinine Ratio 33.9 Random Glucose 116 mg/dl Calcium Level 8.9 mg/dl Phosphorus Level 2.4 mg/dl Magnesium Level 2.6 mg/dl Test 10/27/16 16:27 Bedside Glucose 209 mg/dl Assessment and Plan (1) Severe sepsis Status: Acute Secondary to gangrenous right upper extremity finger POD #4 right third digit amputation of hand Clindamycin and daptomycin held per infectious disease Continue Zosyn Blood cultures growing methicillin sensitive Staph aureus Wound cultures growing Staph aureus, strep, Providencia, Gram-negative bacilli Course of treatment per infectious disease Continue isolation for history of positive MRSA screen in the nares 09/07/15 (2) Septic shock Status: Acute Now hemodynamically stable Continues with fever - Tmax 38.3 Plan on extubation today WBC 10.33 today Lactic acid normal Continue Zosyn per infectious disease (see above) (3) Acute encephalopathy Patient is off sedation for mechanical ventilation Anticipate extubation later today Renal function improving Most likely due to severe sepsis Status post amputation of finger with gangrene Continue antibiotic treatment CT head 10/25/16 negative for acute findings Continue to monitor (4) Elevated troponin I measurement Most likely leak from severe sepsis No ST changes on EKG History of ischemic cardiomyopathy Left ventricular ejection fraction 15-20% Severe global hypokinesis of the left ventricle Left ventricle is severely dilated No evidence of aortic stenosis (5) PATRICIA (acute kidney injury) Improving Creatinine down to 1.9 from 2.2 BUN continues to be elevated 2.3 L ahead for fluid status since admission Continue to monitor serial labs IV fluids held for pulmonary edema Currently requiring diuresis with twice a day furosemide Continue strict I's and O's (6) Necrotic wound of right hand Status: Acute Status post right middle finger amputation with Dr. Henriquez Ortho continues to follow (7) CHF (congestive heart failure) Status: Chronic IV fluids held Patient receiving diuresis twice daily Left ventricular ejection fraction 15-20% Continue to monitor on telemetry Continue strict I's and O's (8) DM type 2 (diabetes mellitus, type 2) Status: Chronic Patient on glyburide and Novolin R at home Hemoglobin A1c 9.6 Continue sliding scale insulin Levemir held Pharmacy consult for glycemic management Continue close monitoring (9) Hypothyroidism Status: Chronic Continue levothyroxine (10) Biventricular ICD (implantable cardioverter-defibrillator) in place Status: Chronic EKG representing pacer spikes Patient be monitored on telemetry (11) CAD (coronary artery disease) Status: Chronic Atorvastatin, imdur, Cozaar, Toprol-XL at home Antihypertensives held secondary to hypotension due to septic shock Resume PO meds as able once patient is extubated (12) History of MRSA infection Status: Chronic Wound cultures with MSSA Positive MRSA screening in nares 09/07/15 Continue isolation protocol Discussed with infection control (13) DVT prophylaxis Heparin subcutaneous Sepsis with septic shock, with methicillin sensitive Staph aureus , secondary to gangrenous right third finger infection now s/p amputation in patient with diabetes and multiple other co-morbidities.wound cultures also positive for Providencia, Strep, and anaerobes. Zosyn should provide adequate coverage, daptomycin and clindamycin have been discontinued. We will continue to follow.
[2016-10-27] MEDS ORDERED: INSULIN DETEMIR FLEXPEN/FLEX TOUCH 100 UNITS/ML 3ML SC SCH (21:00)
[2016-10-27] MEDS: INSULIN DETEMIR FLEXPEN/FLEX TOUCH 100 UNITS/ML 3ML SC SCH (21:39)
[2016-10-28] VITALS (7 sets, daily range): BP systolic 130–171; BP diastolic 53–74; PULSE 67–88; TEMP 36.4–36.9; O2SAT 94–99
[2016-10-28] MEDS: PIPERACILL/TAZOBAC IV 4.5 GM in DEXTROSE 5% 100ML 100 ML IV SCH ×3 (00:12→17:01)
[2016-10-28] MEDS: METOPROLOL TARTRATE 1 MG/ML VIAL IV. SCH ×3 (00:13→11:44)
[2016-10-28] MEDS: INSULIN ASPART 100 UNITS/ML 3 ML PEN SC SCH ×5 (00:15→21:10)
[2016-10-28] MEDS: LEVOTHYROXINE 50 MCG TAB PO SCH (05:52)
[2016-10-28] MEDS: HEPARIN SOD 5000 UNIT/0.5 ML CARP SQ SCH ×3 (06:04→21:36)
[2016-10-28 06:18] LABS: HEMATOCRIT 31.6 % (42-52); MEAN CELL VOLUME 87.8 fL (80-100); MEAN CORPUSCULAR HGB CONC 34.2 g/dl (32-36); PLATELET COUNT 290 K/uL (130-400); WHITE BLOOD COUNT 12.53 K/uL (4.8-10.8)
[2016-10-28 07:01] LABS: BASO % 0.4 %; BASO ABS # 0.05 K/uL (0-0.2); BUN/CREATININE RATIO 37.5 (10-20); CALCIUM 8.9 mg/dl (8.5-10.1); COMPLETE YES; CREATININE 1.7 mg/dl (0.60-1.40); EOS % 2.3 %; IG% 5.4 %; LYMPH % 13.9 %; LYMPH ABS # 1.74 K/uL (1.2-3.4); MAGNESIUM 2.3 mg/dl (1.8-2.4); PHOSPHORUS 2.9 mg/dl (2.5-4.9); POTASSIUM 3.4 mmol/L (3.5-5.1); TOXIC GRANULATION 1+
[2016-10-28] MEDS: DOCUSATE SODIUM 100 MG/10 ML UDC PO SCH ×2 (08:37→21:04)
[2016-10-28] MEDS: ASPIRIN 81 MG CHEW PO SCH (08:37)
[2016-10-28] MEDS: EUCERIN CR 120 GM JAR EXT SCH ×2 (08:38→21:17)
[2016-10-28] MEDS: SERTRALINE HCL 100 MG TAB PO SCH (08:38)
[2016-10-28] MEDS: LACTOBACILLUS ACIDOPHILUS (FLORANEX) TAB PO SCH ×3 (08:38→21:04)
[2016-10-28] MEDS: INSULIN DETEMIR FLEXPEN/FLEX TOUCH 100 UNITS/ML 3ML SC SCH ×2 (08:49→21:09)
[2016-10-28] MEDS ORDERED: POTASSIUM CHLR 20MEQ / WTR IV ONE (10:00)
[2016-10-28] MEDS ORDERED: POTASSIUM CHLR 10 MEQ / WTR 10 MEQ in PREMIXED WATER 100 ML IV SCH (10:00)
[2016-10-28] MEDS: FUROSEMIDE INJ 40 MG in SYRINGE 0 ML IV SCH (10:17)
[2016-10-28] MEDS: FAMOTIDINE IV INJ 20 MG in DEXTROSE 5% 100ML 100 ML IV SCH (10:23)
[2016-10-28] MEDS ORDERED: INSULIN DETEMIR FLEXPEN/FLEX TOUCH 100 UNITS/ML 3ML SC ONE (11:15)
--- NOTE | 2016-10-28 12:27 | Pharmacy Progress Note ---
Glycemic Control: Progress Nt Date of Service Oct 28, 2016. Scope Glycemic Pharmacist consulted by Dr Aviles on 10/23/16 for glycemic control and to write orders per [facility] inpatient glycemic control protocol. Objective Accuchecks BSG (last 24hrs): Test 10/27/16 16:27 10/27/16 19:44 10/27/16 23:59 10/28/16 05:43 Bedside Glucose 209 mg/dl (70-99) 185 mg/dl (70-99) 221 mg/dl (70-99) Random Glucose 195 mg/dl (70-99) Test 10/28/16 05:50 10/28/16 11:27 Bedside Glucose 207 mg/dl (70-99) 229 mg/dl (70-99) Laboratory Data (last 24hrs) Test 10/28/16 05:43 Anion Gap 9.0 mmol/L BUN/Creatinine Ratio 37.5 Blood Urea Nitrogen 64 mg/dl Creatinine 1.70 mg/dl Potassium Level 3.4 mmol/L Sodium Level 142 mmol/L White Blood Count 12.53 K/uL Red Blood Count 3.60 M/uL Hemoglobin 10.8 g/dL Hematocrit 31.6 % Mean Corpuscular Volume 87.8 fL Mean Corpuscular Hemoglobin 30.0 pg Mean Corpuscular Hemoglobin Concent 34.2 g/dl Platelet Count 290 K/uL Mean Platelet Volume 10.0 fL Neutrophils (%) (Auto) 71.0 % Lymphocytes (%) (Auto) 13.9 % Monocytes (%) (Auto) 7.0 % Eosinophils (%) (Auto) 2.3 % Basophils (%) (Auto) 0.4 % Neutrophils # (Auto) 8.89 K/uL Lymphocytes # (Auto) 1.74 K/uL Monocytes # (Auto) 0.88 K/uL Eosinophils # (Auto) 0.29 K/uL Basophils # (Auto) 0.05 K/uL HbA1c: Test 10/24/16 04:34 Hemoglobin A1c 9.6 % (4.5-5.6) H Recent Pertinent Medications Outpatient Anti-diabetic Regimen: * Levemir 80 units SQ BID * Novolin R 3 units BID * Glyburide 5mg daily9.6 * A1c = 9.6 % 10/24/16 The patient is currently receiving: * Basal insulin: Levemir 14 units SQ Q 12 hours; give 1/2 dose (7 units) if BSG less than 110 * Correctional Insulin: Novolog Correction per scale Q 6 hours Goal Range: Low 120 mg/dL - High 160 mg/dL Correction Factor: 10 mg/dL/unit * Prandial insulin: Per carb ratio of 1 unit per 3 grams CHO consumed * Oral Agents: None currently Risk Factors for Insulin Resistance: * Infection: sepsis secondary to finger gangrene; receiving Zosyn * Recent Surgery: POD # 5 * Diet: Patient is now ordered T2DM / AHA diet Assessment & Plan ASSESSMENT: 10/24/16 * 65 yo M with significant stressors admitted to ICU for septic shock 2/2 finger cellulitis. Patient is POD #1 s/p amputation of gangrenous finger. * Patient remains intubated post-op. * Patient was hypoglycemic yesterday afternoon. Suspect that this is d/t pt taking his basal insulin in the morning and then being NPO for OR. Patient's outpatient regimen is heavily weighted towards basal, so expect hypoglycemia to result during NPO periods. * Patient was given a significantly reduced dose of Levemir (25% of normal home dose) this morning, and further dosing will be guided by BSGs. * Will continue q4h accu-checks overnight to ensure that patient's BSGs remain stable. 10/25/16 * Patient's BSGs ranged 96-208 over the last 24 hrs * Fasting BSG 208 this AM with 60 units of Levemir on board and after receiving 5 units Novolog correction overnight. Anticipate basal insulin needs to be ~60- 70 units/day with current stressors and while NPO. This basal requirement would be similar to that required on prior admissions. Will order a set Levemir dose with hold parameter * Novolog CF and CR are reasonable starting points. CF has prevented BSGs from climbing rapidly. BSGs have leveled off with use of current CF. Primary insulin deficiency appears to be basal at this time. * Patient remains intubated, however there may be an attempt to extubate later today 10/26/16 * BSGs did drop throughout the day yesterday, lowest BSG 93 HS last evening. * All BSGs over last 24 hours reflective of fasting state at enteral feedings not started; last BSG 142, so starting to rebound after hold AM Levemir * Held Levemir dose this AM due to BSGs being lower than desired for ICU patient and continued NPO status * Patient is now extubated, will need a [employer] eval before diet resumed, no tube feeds at this time * Given uncertainty with dietary intake and lessening stressors I feel it best to reduce his basal insulin dose by 50% and add a hold parameter 10/27/16 * Glycemic control acceptable over last 24 hours, BSGs ranged 109-202 (only one BSG above 180) * BSGs are reflective of a fasting state as he is awaiting swallow eval to have a diet ordered. Last BSG 117, with 36 units Levemir on board * Will hold Levemir dose this AM as pt remains NPO still, glycogen stores probably running low at this point. Fasting BSGs in the 140's range would be acceptable given illness severity, ICU admission. Will reduce Levemir dose further if he does not begin and tolerate a diet today 10/28/16 * BSGs have been running above goal - likely due to basal insulin deficiency; last 3 BSGs 207-221 (all fasting BSGs) * I had held the AM dose of Levemir yesterday due to patient failing swallow eval and AM BSGs trending down. However BSGs laurita throughout the day after missing the AM Levemir. * Over the last 24 hrs he has received 14 units basal + 12 units correctional insulin - despite this fasting BSG 207 this AM. Only 1/2 of the ordered Levemir is on board this AM. I am inclined to continue with the current basal order for the next 24 hrs as it is difficult to evaluate the level of control the current dose will provide. Will f/u tomorrow * He is now ordered a diet, if he does tolerate PO intake we may need to begin titrating the basal insulin upwards. There is a Novolog CR ordered to cover CHO intake. PLAN FOR INPATIENT GLYCEMIC CONTROL: * Continue Levemir 14 units SQ BID - give 1/2 dose (7 units) if BSG less than 110 * Continuing correction factor of 10 mg/dl/unit * Continuing carb ratio of 1 unit per 3 grams CHO consumed * Continuing goal range of Low 120 mg/dL - High 160 mg/dL * Please note that the plan above was derived based on current level of insulin resistance and hospital stress. These recommendations are appropriate for inpatient admission only. Plan of care upon discharge will need to be reassessed to avoid potential outpatient hypo/hyperglycemia. Thank you.
[2016-10-28] MEDS ORDERED: ACETAMINOPHEN 325 MG TAB PO PRN (16:00)
--- NOTE | 2016-10-28 16:07 | Progress Note ---
Medicine Progress Note Date & Time of Visit: Oct 28, 2016 at 15:58. Subjective Patient seen and examined. Denies complaints. Staff reports a lot of throat clearing today. Sitter feels that patient is less interactive today; more agitated. Objective Last 8 Hrs Date Time Temp Pulse Resp B/P Pulse Ox O2 Delivery O2 Flow Rate FiO2 10/28/16 15:23 36.7 77 22 164/74 98 Room Air 10/28/16 12:00 99 Room Air 10/28/16 11:44 59 10/28/16 08:00 99 Room Air 10/28/16 08:00 36.7 71 18 137/61 97 Room Air Physical Exam: General-awake; alert; NAD Eyes-EOMI intact; no scleral icterus Neck-no stridor; trachea midline; skin breakdown at nape of neck Lungs-CTA bilaterally; no wheezes/crackles Heart-RRR; no m/r/g Abdomen-soft; NTND; nBS Extremities-right hand bandage c/d/i; left extremity stump c/d/i Neuro-disoriented today; slow to respond to questions Laboratory Results: Last 24 Hours Test 10/27/16 16:27 10/27/16 19:44 10/27/16 23:59 10/28/16 05:43 Bedside Glucose 209 mg/dl 185 mg/dl 221 mg/dl White Blood Count 12.53 K/uL Red Blood Count 3.60 M/uL Hemoglobin 10.8 g/dL Hematocrit 31.6 % Mean Corpuscular Volume 87.8 fL Mean Corpuscular Hemoglobin 30.0 pg Mean Corpuscular Hemoglobin Concent 34.2 g/dl Platelet Count 290 K/uL Mean Platelet Volume 10.0 fL Neutrophils (%) (Auto) 71.0 % Lymphocytes (%) (Auto) 13.9 % Monocytes (%) (Auto) 7.0 % Eosinophils (%) (Auto) 2.3 % Basophils (%) (Auto) 0.4 % Neutrophils # (Auto) 8.89 K/uL Lymphocytes # (Auto) 1.74 K/uL Monocytes # (Auto) 0.88 K/uL Eosinophils # (Auto) 0.29 K/uL Basophils # (Auto) 0.05 K/uL RDW Standard Deviation 44.9 fL RDW Coefficient of Variation 13.9 % Immature Granulocyte % (Auto) 5.4 % Immature Granulocyte # (Auto) 0.68 K/uL Toxic Granulation 1+ Sodium Level 142 mmol/L Potassium Level 3.4 mmol/L Chloride Level 104 mmol/L Carbon Dioxide Level 29 mmol/L Anion Gap 9.0 mmol/L Blood Urea Nitrogen 64 mg/dl Creatinine 1.70 mg/dl Est Creatinine Clear Calc Drug Dose 55.6 ml/min Estimated GFR () 48.0 Estimated GFR (Non- 41.4 BUN/Creatinine Ratio 37.5 Random Glucose 195 mg/dl Calcium Level 8.9 mg/dl Phosphorus Level 2.9 mg/dl Magnesium Level 2.3 mg/dl Test 10/28/16 05:50 10/28/16 11:27 Bedside Glucose 207 mg/dl 229 mg/dl Assessment & Plan Severe sepsis -likely from the necrotic, gangrenous middle right finger -Orthopedics consulted -s/p right middle finger amputation and I&D of hand on 10/24 -ID consulted -received Zosyn, daptomycin and clindamycin (for 48hrs for potential antitoxin agents) -continue Zosyn -blood cultures from 10/23 with MSSA -repeat blood cultures from 10/24 ngtd -wound cultures with providencia, staphylococcus, streptococcus Acute respiratory failure secondary to metabolic encephalopathy -intubated 10/23 - 10/26 -weaned off supplemental oxygen -BiPAP PRN for respiratory support -improved Acute renal failure -possibly related to sepsis -baseline creatinine is around 1.3-1.4 -continue holding losartan -received hydration -downtrending History of nonischemic cardiomyopathy -ejection fraction around 15-20% -continue aspirin, atorvastatin, furosemide, metoprolol, ISMN -hold losartan and metolazone until renal function improves Elevation troponin -likely due to demand ischemia from sepsis and ARF -downtrended -TTE showing no change from previous Type 2 DM -hba1c 9.6 -continue insulin -glycemic pharmacy consulted Hypothyroidism -continue Synthroid DVT prophylaxis with heparin sq PT recommending discharge to rehab vs SNF. Consultants: Title Examiner ID Ortho Procedures: TTE * Compared to the prior study dated 12/11/15, there is persistent severe LV systolic dysfunction. CT head No acute intracranial findings Current Inpatient Medications: Current Inpatient Medications Medications (Trade) Dose Ordered Sig/Ifeanyi Route Start Time Stop Time Status Last Admin Dose Admin Lactobacillus Acidophilus (Floranex Tab) 1 tab TID PO 10/23/16 14:00 11/22/16 13:59 10/27/16 08:29 1 TAB Sertraline HCl 100 mg 100 mg DAILY PO 10/24/16 09:00 11/23/16 08:59 10/27/16 08:29 100 MG Piperacillin Sod/ Tazobactam Sod/ Dextrose (Zosyn Iv/D5 100ml) 120 ml @ 30 mls/hr Q8H IV 10/23/16 16:00 11/02/16 15:59 10/28/16 10:23 30 MLS/HR Miscellaneous Information (Consult Glycemic Management Pharmacy) 1 ea UD PRN N/A 10/23/16 14:30 11/22/16 14:29 Heparin Sodium (Porcine) (Heparin Sq 5000 Unit/0.5ml) 5,000 unit Q8 SQ 10/23/16 14:00 11/22/16 13:59 10/28/16 14:27 5,000 UNIT Piperacillin Sod/ Tazobactam Sod 1 ea 1 ea UD PRN N/A 10/23/16 14:30 11/22/16 14:29 Acetaminophen 650 mg/Empty Bag 65 ml @ 260 mls/hr Q6H PRN IV 10/24/16 00:45 11/23/16 00:44 10/26/16 03:40 260 MLS/HR Famotidine/ Dextrose (Pepcid IV Inj/ D5 100ml) 102 ml @ 204 mls/hr Q12H IV 10/24/16 09:00 11/23/16 08:59 10/28/16 10:23 204 MLS/HR Fentanyl Citrate (Fentanyl Inj) 50 mcg Q2H PRN IV 10/24/16 10:15 11/07/16 10:14 10/25/16 13:07 50 MCG Multi-Ingredient Ointment (Eucerin Unscented Cr) 1 appln BID EXT 10/24/16 21:00 11/23/16 20:59 10/28/16 08:38 1 APPLN Aspirin (Aspirin Chew) 81 mg DAILY PO 10/26/16 09:00 11/25/16 08:59 10/27/16 08:29 81 MG Levothyroxine Sodium (Synthroid Tab) 50 mcg DAILYBB PO 10/25/16 11:00 11/24/16 10:59 10/26/16 06:00 50 MCG Docusate Sodium (coLACE SYRUP) 100 mg BID PO 10/25/16 21:00 11/24/16 20:59 10/27/16 08:29 100 MG Insulin Aspart SLIDING SCALE G... Q6 SC 10/26/16 12:00 11/25/16 11:59 10/28/16 11:58 24 UNITS Furosemide/Syringe (Lasix Inj/ Syringe) 4 ml @ 4 mls/min BID17 IV 10/26/16 09:00 11/25/16 08:59 10/28/16 10:17 4 MLS/MIN Metoprolol Tartrate (Lopressor Iv) 5 mg Q6 IV. 10/27/16 00:00 11/26/16 00:00 10/28/16 05:55 5 MG Labetalol HCl (Normodyne IV) 20 mg Q1H PRN IV 10/26/16 18:45 11/25/16 18:44 10/27/16 21:49 20 MG Hydralazine HCl (HydrALAZINE INJ) 10 mg Q4H PRN IV. 10/26/16 18:45 11/25/16 18:44 Bisacodyl (Dulcolax Supp) 10 mg DAILY PRN UT 10/27/16 11:30 11/26/16 11:29 Insulin Detemir (Levemir Flexpen/ FlexTouch) 7 units if BSG less than ... BID SC 10/27/16 21:00 11/26/16 20:59 10/28/16 08:49 7 UNIT
[2016-10-28] MEDS: FUROSEMIDE 80 MG TAB PO SCH (16:59)
[2016-10-28] MEDS: METOPROLOL SUCC 25MG EXT REL TAB PO SCH (21:04)
[2016-10-29] MEDS: PIPERACILL/TAZOBAC IV 4.5 GM in DEXTROSE 5% 100ML 100 ML IV SCH ×3 (00:04→16:10)
[2016-10-29] MEDS ORDERED: INSULIN ASPART 100 UNITS/ML 3 ML PEN SC ONE (02:00)
[2016-10-29 03:35] VITALS: BP 155/70; PULSE 65; TEMP 37.2; O2SAT 96
[2016-10-29] MEDS: LEVOTHYROXINE 50 MCG TAB PO SCH (05:52)
[2016-10-29] MEDS: HEPARIN SOD 5000 UNIT/0.5 ML CARP SQ SCH ×2 (05:53→15:52)
[2016-10-29 06:35] LABS: HEMATOCRIT 34.9 % (42-52); MEAN CORPUSCULAR HEMOGLOBIN 29.6 pg (25-34); MEAN CORPUSCULAR HGB CONC 34.4 g/dl (32-36); MEAN PLATELET VOLUME 9.6 fL (7.4-10.4); PLATELET COUNT 378 K/uL (130-400); RED BLOOD COUNT 4.06 M/uL (4.7-6.1); WHITE BLOOD COUNT 14.13 K/uL (4.8-10.8)
[2016-10-29 07:18] VITALS: BP 143/48; PULSE 61; TEMP 36.5; O2SAT 95
[2016-10-29 07:25] LABS: BUN/CREATININE RATIO 29.7 (10-20); CALCIUM 9.6 mg/dl (8.5-10.1); CREATININE 1.7 mg/dl (0.60-1.40); MAGNESIUM 2.2 mg/dl (1.8-2.4); POTASSIUM 3.3 mmol/L (3.5-5.1)
[2016-10-29] MEDS: DOCUSATE SODIUM 100 MG/10 ML UDC PO SCH (08:09)
[2016-10-29] MEDS: ATORVASTATIN 40 MG TAB PO SCH (08:10)
[2016-10-29] MEDS: LACTOBACILLUS ACIDOPHILUS (FLORANEX) TAB PO SCH ×3 (08:11→20:40)
[2016-10-29] MEDS: ISOSORBIDE MONONITRATE 30 MG TABCR PO SCH (08:12)
[2016-10-29] MEDS: SERTRALINE HCL 100 MG TAB PO SCH (08:13)
[2016-10-29] MEDS: EUCERIN CR 120 GM JAR EXT SCH ×2 (08:14→20:42)
[2016-10-29] MEDS: METOPROLOL SUCC 25MG EXT REL TAB PO SCH ×2 (08:14→20:43)
[2016-10-29] MEDS: INSULIN ASPART 100 UNITS/ML 3 ML PEN SC SCH ×4 (08:20→20:47)
[2016-10-29] MEDS: ASPIRIN 81 MG CHEW PO SCH (08:23)
[2016-10-29] MEDS: POTASSIUM CHLORIDE 20 MEQ TABCR PO SCH ×2 (09:57→20:41)
[2016-10-29 10:44] VITALS: BP 138/55; PULSE 66; TEMP 36.5; O2SAT 93
[2016-10-29 15:15] VITALS: BP 117/69; PULSE 66; TEMP 36.5; O2SAT 97
[2016-10-29 19:17] VITALS: BP 132/53; PULSE 66; TEMP 36.7; O2SAT 96
[2016-10-29] MEDS: INSULIN DETEMIR FLEXPEN/FLEX TOUCH 100 UNITS/ML 3ML SC SCH (20:45)
[2016-10-29] MEDS ORDERED: LOPERAMIDE HCL 2 MG CAP PO PRN (21:15)
--- NOTE | 2016-10-29 21:17 | Progress Note ---
Medicine Progress Note Date & Time of Visit: Oct 29, 2016 at 21:15. Subjective Patient seen and examined. Denies any complaints. Having diarrhea. Pulled out central line. Objective Last 8 Hrs Date Time Temp Pulse Resp B/P Pulse Ox O2 Delivery O2 Flow Rate FiO2 10/29/16 19:17 36.7 66 18 132/53 96 Room Air 10/29/16 16:00 Room Air 10/29/16 15:15 36.5 66 18 117/69 97 Room Air Physical Exam: General-awake; alert; NAD Eyes-EOMI intact; no scleral icterus Neck-no stridor; trachea midline; skin breakdown at nape of neck Lungs-CTA bilaterally; no wheezes/crackles Heart-RRR; no m/r/g Abdomen-soft; NTND; nBS Extremities-right hand bandage c/d/i; left extremity stump c/d/i Neuro-oriented to person and place Laboratory Results: Last 24 Hours Test 10/29/16 02:45 10/29/16 05:58 10/29/16 05:59 10/29/16 11:03 Bedside Glucose 112 mg/dl 73 mg/dl 151 mg/dl White Blood Count 14.13 K/uL Red Blood Count 4.06 M/uL Hemoglobin 12.0 g/dL Hematocrit 34.9 % Mean Corpuscular Volume 86.0 fL Mean Corpuscular Hemoglobin 29.6 pg Mean Corpuscular Hemoglobin Concent 34.4 g/dl RDW Standard Deviation 43.6 fL RDW Coefficient of Variation 13.9 % Platelet Count 378 K/uL Mean Platelet Volume 9.6 fL Sodium Level 148 mmol/L Potassium Level 3.3 mmol/L Chloride Level 109 mmol/L Carbon Dioxide Level 31 mmol/L Anion Gap 8.0 mmol/L Blood Urea Nitrogen 50 mg/dl Creatinine 1.70 mg/dl Est Creatinine Clear Calc Drug Dose 55.1 ml/min Estimated GFR () 48.0 Estimated GFR (Non- 41.4 BUN/Creatinine Ratio 29.7 Random Glucose 67 mg/dl Calcium Level 9.6 mg/dl Magnesium Level 2.2 mg/dl Test 10/29/16 16:18 10/29/16 20:37 Bedside Glucose 215 mg/dl 255 mg/dl Date/Time Source Procedure Growth Status 10/29/16 10:25 Stool C.difficile Toxin B Gene (PCR) - Final No C. difficile toxin B gene detected Complete Assessment & Plan Severe sepsis -likely from the necrotic, gangrenous middle right finger -Orthopedics consulted -s/p right middle finger amputation and I&D of hand on 10/24 -ID consulted -received Zosyn, daptomycin and clindamycin (for 48hrs for potential antitoxin agents) -continue Zosyn -blood cultures from 10/23 with MSSA -repeat blood cultures from 10/24 ngtd -wound cultures with providencia, staphylococcus, streptococcus Diarrhea - Cdiff negative - loperamide PRN Acute respiratory failure secondary to metabolic encephalopathy -intubated 10/23 - 10/26 -weaned off supplemental oxygen -BiPAP PRN for respiratory support -improved Acute renal failure -possibly related to sepsis -baseline creatinine is around 1.3-1.4 -continue holding losartan -received hydration -downtrending History of nonischemic cardiomyopathy -ejection fraction around 15-20% -continue aspirin, atorvastatin, metoprolol, ISMN -hold losartan, furosemide and metolazone until renal function improves Elevation troponin -likely due to demand ischemia from sepsis and ARF -downtrended -TTE showing no change from previous Type 2 DM -hba1c 9.6 -continue insulin -glycemic pharmacy consulted Hypothyroidism -continue Synthroid DVT prophylaxis with heparin sq PT recommending discharge to rehab vs SNF. Consultants: Architect Internship ID Ortho Procedures: TTE * Compared to the prior study dated 12/11/15, there is persistent severe LV systolic dysfunction. CT head No acute intracranial findings Current Inpatient Medications: Current Inpatient Medications Medications (Trade) Dose Ordered Sig/Ifeanyi Route Start Time Stop Time Status Last Admin Dose Admin Lactobacillus Acidophilus (Floranex Tab) 1 tab TID PO 10/23/16 14:00 11/22/16 13:59 10/29/16 20:40 1 TAB Sertraline HCl 100 mg 100 mg DAILY PO 10/24/16 09:00 11/23/16 08:59 10/29/16 08:13 100 MG Piperacillin Sod/ Tazobactam Sod/ Dextrose (Zosyn Iv/D5 100ml) 120 ml @ 30 mls/hr Q8H IV 10/23/16 16:00 11/02/16 15:59 10/29/16 16:10 30 MLS/HR Miscellaneous Information (Consult Glycemic Management Pharmacy) 1 ea UD PRN N/A 10/23/16 14:30 11/22/16 14:29 Heparin Sodium (Porcine) (Heparin Sq 5000 Unit/0.5ml) 5,000 unit Q8 SQ 10/23/16 14:00 11/22/16 13:59 10/29/16 15:52 5,000 UNIT Piperacillin Sod/ Tazobactam Sod (Consult) 1 ea UD PRN N/A 10/23/16 14:30 11/22/16 14:29 Multi-Ingredient Ointment (Eucerin Unscented Cr) 1 appln BID EXT 10/24/16 21:00 11/23/16 20:59 10/29/16 20:42 1 APPLN Aspirin (Aspirin Chew) 81 mg DAILY PO 10/26/16 09:00 11/25/16 08:59 10/29/16 08:23 81 MG Levothyroxine Sodium (Synthroid Tab) 50 mcg DAILYBB PO 10/25/16 11:00 11/24/16 10:59 10/29/16 05:52 50 MCG Docusate Sodium (coLACE SYRUP) 100 mg BID PO 10/25/16 21:00 11/24/16 20:59 Future Hold 10/29/16 08:09 100 MG Labetalol HCl (Normodyne IV) 20 mg Q1H PRN IV 10/26/16 18:45 11/25/16 18:44 10/27/16 21:49 20 MG Hydralazine HCl (HydrALAZINE INJ) 10 mg Q4H PRN IV. 10/26/16 18:45 11/25/16 18:44 Bisacodyl (Dulcolax Supp) 10 mg DAILY PRN CO 10/27/16 11:30 11/26/16 11:29 Atorvastatin Calcium (Lipitor Tab) 80 mg DAILY PO 10/29/16 09:00 11/28/16 08:59 10/29/16 08:10 80 MG Furosemide (Lasix Tab) 80 mg BID17 PO 10/28/16 17:00 11/27/16 16:59 Future Hold 10/28/16 16:59 80 MG Isosorbide Mononitrate (Imdur Ext Rel Tab) 15 mg DAILY PO 10/29/16 09:00 11/28/16 08:59 2/25/17 08:12 15 MG Metoprolol Succinate (Toprol Xl Tab) 25 mg BID PO 10/28/16 21:00 11/27/16 20:59 10/29/16 20:43 25 MG Acetaminophen (Tylenol Tab) 650 mg Q4H PRN PO 10/28/16 16:00 11/27/16 15:59 Insulin Detemir (Levemir Flexpen/ FlexTouch) 15 units if BSG less t... BID SC 10/28/16 21:00 11/27/16 20:59 Future hold 10/29/16 20:45 30 UNIT Insulin Aspart (novoLOG ASPART) SLIDING SCALE G... ACHS SC 10/28/16 21:00 11/27/16 20:59 10/29/16 20:47 10 UNITS Potassium Chloride (Klor-Con Tab) 20 meq BID PO 10/29/16 09:00 11/28/16 08:59 10/29/16 20:41 20 MEQ
[2016-10-29 23:05] VITALS: BP 159/72; PULSE 63; TEMP 36.4; O2SAT 97
[2016-10-30] VITALS (7 sets, daily range): BP systolic 94–148; BP diastolic 59–70; PULSE 53–75; TEMP 36.4–36.7; O2SAT 93–98
[2016-10-30] MEDS: HEPARIN SOD 5000 UNIT/0.5 ML CARP SQ SCH ×4 (00:22→21:03)
[2016-10-30] MEDS: PIPERACILL/TAZOBAC IV 4.5 GM in DEXTROSE 5% 100ML 100 ML IV SCH ×4 (00:25→23:28)
[2016-10-30] MEDS: LEVOTHYROXINE 50 MCG TAB PO SCH (06:21)
[2016-10-30 06:37] LABS: HEMATOCRIT 37.2 % (42-52); MEAN CELL VOLUME 87.3 fL (80-100); MEAN CORPUSCULAR HGB CONC 34.4 g/dl (32-36); MEAN PLATELET VOLUME 9.9 fL (7.4-10.4); PLATELET COUNT 403 K/uL (130-400); RED BLOOD COUNT 4.26 M/uL (4.7-6.1); WHITE BLOOD COUNT 13.07 K/uL (4.8-10.8)
[2016-10-30] MEDS: INSULIN ASPART 100 UNITS/ML 3 ML PEN SC SCH ×4 (07:00→21:02)
[2016-10-30 07:09] LABS: BUN/CREATININE RATIO 28.1 (10-20); CALCIUM 9.2 mg/dl (8.5-10.1); CREATININE 1.6 mg/dl (0.60-1.40); MAGNESIUM 2.2 mg/dl (1.8-2.4); POTASSIUM 3.7 mmol/L (3.5-5.1)
[2016-10-30] MEDS: INSULIN DETEMIR FLEXPEN/FLEX TOUCH 100 UNITS/ML 3ML SC SCH ×2 (09:00→21:13)
[2016-10-30] MEDS: METOPROLOL SUCC 25MG EXT REL TAB PO SCH ×2 (09:00→20:47)
[2016-10-30] MEDS: ATORVASTATIN 40 MG TAB PO SCH (09:00)
[2016-10-30] MEDS: POTASSIUM CHLORIDE 20 MEQ TABCR PO SCH ×2 (09:00→20:45)
[2016-10-30] MEDS: LACTOBACILLUS ACIDOPHILUS (FLORANEX) TAB PO SCH ×3 (09:00→20:48)
[2016-10-30] MEDS: SERTRALINE HCL 100 MG TAB PO SCH (09:00)
[2016-10-30] MEDS: ASPIRIN 81 MG CHEW PO SCH (09:00)
[2016-10-30] MEDS: EUCERIN CR 120 GM JAR EXT SCH ×2 (09:00→20:44)
[2016-10-30] MEDS: ISOSORBIDE MONONITRATE 30 MG TABCR PO SCH (09:00)
--- NOTE | 2016-10-30 15:07 | Pharmacy Progress Note ---
Glycemic Control: Progress Nt Date of Service Oct 30, 2016. Scope Glycemic Pharmacist consulted by Dr Aviles on 10/23/16 for glycemic control and to write orders per [facility] inpatient glycemic control protocol. Objective Accuchecks BSG (last 24hrs): Test 10/29/16 16:18 10/29/16 20:37 10/30/16 05:49 10/30/16 06:42 Bedside Glucose 215 mg/dl (70-99) 255 mg/dl (70-99) 117 mg/dl (70-99) Random Glucose 127 mg/dl (70-99) Test 10/30/16 11:24 Bedside Glucose 206 mg/dl (70-99) Laboratory Data (last 24hrs) Test 10/30/16 05:49 Anion Gap 6.0 mmol/L BUN/Creatinine Ratio 28.1 Blood Urea Nitrogen 45 mg/dl Creatinine 1.60 mg/dl Potassium Level 3.7 mmol/L Sodium Level 140 mmol/L White Blood Count 13.07 K/uL HbA1c: Test 10/24/16 04:34 Hemoglobin A1c 9.6 % (4.5-5.6) H Recent Pertinent Medications Outpatient Anti-diabetic Regimen: * Levemir 80 units SQ BID * Novolin R 3 units BID * Glyburide 5mg daily * A1c = 9.6 % 10/24/16 Risk Factors for Insulin Resistance: * Infection: sepsis secondary to finger gangrene; receiving Zosyn * Recent Surgery: POD # 7 * Diet:T2DM / AHA diet Assessment & Plan ASSESSMENT: 10/30/16 * On 10/29, Fasting BSG was 73 mg/dL, Levemir was held and further dosing was dependant on BSG trend * BSGs recovered well and became >250 mg/dL at bedtime so a full dose of Levemir 30 units was given last night * Fasting BSG this AM 117 mg/dL * I believe true basal needs are currently between 30-45 units per day * Change Levemir to dosing based on BSG, if <140- give 15 units, if >140- give 30 unit * Prandial BSGs >200 mg/dL X 2 checks yesterday and Lunch now 206 mg/dL, tighten carb ratio slightly and reassess in the AM PLAN FOR INPATIENT GLYCEMIC CONTROL: * Change Levemir to 15 units if BSG <140 and 30 units if BSG >140 * Continue correction factor of 10 mg/dl/unit * Change to carb ratio of 1 unit per 2.5 grams CHO consumed * Continue goal range of Low 120 mg/dL - High 160 mg/dL * Please note that the plan above was derived based on current level of insulin resistance and hospital stress. These recommendations are appropriate for inpatient admission only. Plan of care upon discharge will need to be reassessed to avoid potential outpatient hypo/hyperglycemia. Thank you.
--- NOTE | 2016-10-30 16:57 | Progress Note ---
Medicine Progress Note Date & Time of Visit: Oct 30, 2016 at 16:54. Subjective Patient seen and examined. Much more awake and interactive today. Denies complaints. Objective Last 8 Hrs Date Time Temp Pulse Resp B/P Pulse Ox O2 Delivery O2 Flow Rate FiO2 10/30/16 16:15 36.6 62 18 122/70 97 Room Air 10/30/16 15:45 36.4 66 14 96 2.0 10/30/16 12:00 Room Air 10/30/16 11:28 36.4 66 14 94/59 96 Room Air Physical Exam: General-awake; alert; NAD Eyes-EOMI intact; no scleral icterus Neck-no stridor; trachea midline; skin breakdown at nape of neck Lungs-CTA bilaterally; no wheezes/crackles Heart-RRR; no m/r/g Abdomen-soft; NTND; nBS Extremities-right hand bandage c/d/i; left extremity stump c/d/i Neuro-oriented x3; able to count backward from 20 Laboratory Results: Last 24 Hours Test 10/29/16 20:37 10/30/16 05:49 10/30/16 06:42 10/30/16 11:24 Bedside Glucose 255 mg/dl 117 mg/dl 206 mg/dl White Blood Count 13.07 K/uL Red Blood Count 4.26 M/uL Hemoglobin 12.8 g/dL Hematocrit 37.2 % Mean Corpuscular Volume 87.3 fL Mean Corpuscular Hemoglobin 30.0 pg Mean Corpuscular Hemoglobin Concent 34.4 g/dl RDW Standard Deviation 44.3 fL RDW Coefficient of Variation 14.1 % Platelet Count 403 K/uL Mean Platelet Volume 9.9 fL Sodium Level 140 mmol/L Potassium Level 3.7 mmol/L Chloride Level 104 mmol/L Carbon Dioxide Level 30 mmol/L Anion Gap 6.0 mmol/L Blood Urea Nitrogen 45 mg/dl Creatinine 1.60 mg/dl Est Creatinine Clear Calc Drug Dose 58.7 ml/min Estimated GFR () 51.6 Estimated GFR (Non- 44.5 BUN/Creatinine Ratio 28.1 Random Glucose 127 mg/dl Calcium Level 9.2 mg/dl Magnesium Level 2.2 mg/dl Chemistry Specimen Hemolysis Test 10/30/16 16:39 Bedside Glucose 117 mg/dl Assessment & Plan Severe sepsis -likely from the necrotic, gangrenous middle right finger -Orthopedics consulted -s/p right middle finger amputation and I&D of hand on 10/24 -ID consulted -received Zosyn, daptomycin and clindamycin (for 48hrs for potential antitoxin agents) -continue Zosyn -blood cultures from 10/23 with MSSA -repeat blood cultures from 10/24 negative -wound cultures with providencia, staphylococcus, streptococcus Diarrhea - Cdiff negative - loperamide PRN Acute respiratory failure secondary to metabolic encephalopathy -intubated 10/23 - 10/26 -weaned off supplemental oxygen -BiPAP PRN for respiratory support -resolved Acute renal failure -possibly related to sepsis -baseline creatinine is around 1.3-1.4 -continue holding losartan -received hydration -downtrending History of nonischemic cardiomyopathy -ejection fraction around 15-20% -continue aspirin, atorvastatin, metoprolol, ISMN, furosemide -hold losartan and metolazone until renal function improves Elevation troponin -likely due to demand ischemia from sepsis and ARF -downtrended -TTE showing no change from previous Type 2 DM -hba1c 9.6 -continue insulin -glycemic pharmacy consulted Hypothyroidism -continue Synthroid DVT prophylaxis with heparin sq PT recommending discharge to rehab vs SNF. Consultants: Pharmacist Manager ID Ortho Procedures: TTE * Compared to the prior study dated 12/11/15, there is persistent severe LV systolic dysfunction. CT head No acute intracranial findings Current Inpatient Medications: Current Inpatient Medications Medications (Trade) Dose Ordered Sig/Ifeanyi Route Start Time Stop Time Status Last Admin Dose Admin Lactobacillus Acidophilus (Floranex Tab) 1 tab TID PO 10/23/16 14:00 11/22/16 13:59 10/30/16 14:00 1 TAB Sertraline HCl 100 mg 100 mg DAILY PO 10/24/16 09:00 11/23/16 08:59 10/30/16 09:00 100 MG Piperacillin Sod/ Tazobactam Sod/ Dextrose (Zosyn Iv/D5 100ml) 120 ml @ 30 mls/hr Q8H IV 10/23/16 16:00 11/02/16 15:59 10/30/16 08:00 30 MLS/HR Miscellaneous Information (Consult Glycemic Management Pharmacy) 1 ea UD PRN N/A 10/23/16 14:30 11/22/16 14:29 Heparin Sodium (Porcine) (Heparin Sq 5000 Unit/0.5ml) 5,000 unit Q8 SQ 10/23/16 14:00 11/22/16 13:59 10/30/16 15:02 5,000 UNIT Piperacillin Sod/ Tazobactam Sod (Consult) 1 ea UD PRN N/A 10/23/16 14:30 11/22/16 14:29 Multi-Ingredient Ointment (Eucerin Unscented Cr) 1 appln BID EXT 10/24/16 21:00 11/23/16 20:59 10/30/16 09:00 1 APPLN Aspirin (Aspirin Chew) 81 mg DAILY PO 10/26/16 09:00 11/25/16 08:59 10/30/16 09:00 81 MG Levothyroxine Sodium (Synthroid Tab) 50 mcg DAILYBB PO 10/25/16 11:00 11/24/16 10:59 10/30/16 06:21 50 MCG Docusate Sodium (coLACE SYRUP) 100 mg BID PO 10/25/16 21:00 11/24/16 20:59 Future Hold 10/29/16 08:09 100 MG Labetalol HCl (Normodyne IV) 20 mg Q1H PRN IV 10/26/16 18:45 11/25/16 18:44 10/27/16 21:49 20 MG Hydralazine HCl (HydrALAZINE INJ) 10 mg Q4H PRN IV. 10/26/16 18:45 11/25/16 18:44 Bisacodyl (Dulcolax Supp) 10 mg DAILY PRN VT 10/27/16 11:30 11/26/16 11:29 Atorvastatin Calcium (Lipitor Tab) 80 mg DAILY PO 10/29/16 09:00 11/28/16 08:59 10/30/16 09:00 80 MG Furosemide (Lasix Tab) 80 mg BID17 PO 10/28/16 17:00 11/27/16 16:59 Future Hold 10/28/16 16:59 80 MG Isosorbide Mononitrate (Imdur Ext Rel Tab) 15 mg DAILY PO 10/29/16 09:00 11/28/16 08:59 10/30/16 09:00 15 MG Metoprolol Succinate (Toprol Xl Tab) 25 mg BID PO 10/28/16 21:00 11/27/16 20:59 10/30/16 09:00 25 MG Acetaminophen (Tylenol Tab) 650 mg Q4H PRN PO 10/28/16 16:00 11/27/16 15:59 Insulin Detemir (Levemir Flexpen/ FlexTouch) 15 units if BSG less t... BID SC 10/28/16 21:00 11/27/16 20:59 Future hold 10/30/16 09:00 15 UNIT Insulin Aspart (novoLOG ASPART) SLIDING SCALE G... ACHS SC 10/28/16 21:00 11/27/16 20:59 10/30/16 11:00 17 UNITS Potassium Chloride (Klor-Con Tab) 20 meq BID PO 10/29/16 09:00 11/28/16 08:59 10/30/16 09:00 20 MEQ Loperamide HCl (Imodium Cap) 2 mg Q4 PRN PO 10/29/16 21:15 11/28/16 21:14
[2016-10-31] MEDS: LEVOTHYROXINE 50 MCG TAB PO SCH (05:30)
[2016-10-31] MEDS: HEPARIN SOD 5000 UNIT/0.5 ML CARP SQ SCH ×3 (05:30→21:11)
[2016-10-31 06:42] LABS: MEAN CELL VOLUME 85.3 fL (80-100); MEAN CORPUSCULAR HEMOGLOBIN 28.9 pg (25-34); MEAN CORPUSCULAR HGB CONC 33.9 g/dl (32-36); MEAN PLATELET VOLUME 9.3 fL (7.4-10.4); PLATELET COUNT 395 K/uL (130-400); RED BLOOD COUNT 4.22 M/uL (4.7-6.1); WHITE BLOOD COUNT 13.97 K/uL (4.8-10.8)
[2016-10-31 07:16] LABS: CALCIUM 8.6 mg/dl (8.5-10.1); CREATININE 1.5 mg/dl (0.60-1.40); POTASSIUM 3.9 mmol/L (3.5-5.1)
[2016-10-31 08:00] VITALS: BP 137/77; PULSE 59; TEMP 36.7; O2SAT 97
[2016-10-31] MEDS: PIPERACILL/TAZOBAC IV 4.5 GM in DEXTROSE 5% 100ML 100 ML IV SCH ×2 (08:01→16:50)
[2016-10-31] MEDS: EUCERIN CR 120 GM JAR EXT SCH ×2 (08:05→21:09)
[2016-10-31] MEDS: SERTRALINE HCL 100 MG TAB PO SCH (08:48)
[2016-10-31] MEDS: ATORVASTATIN 40 MG TAB PO SCH (08:49)
[2016-10-31] MEDS: LACTOBACILLUS ACIDOPHILUS (FLORANEX) TAB PO SCH ×3 (08:49→21:01)
[2016-10-31] MEDS: POTASSIUM CHLORIDE 20 MEQ TABCR PO SCH ×2 (08:49→21:01)
[2016-10-31] MEDS: ISOSORBIDE MONONITRATE 30 MG TABCR PO SCH (08:51)
[2016-10-31] MEDS: METOPROLOL SUCC 25MG EXT REL TAB PO SCH ×2 (08:51→21:02)
[2016-10-31] MEDS: INSULIN ASPART 100 UNITS/ML 3 ML PEN SC SCH ×4 (09:00→21:00)
[2016-10-31] MEDS: INSULIN DETEMIR FLEXPEN/FLEX TOUCH 100 UNITS/ML 3ML SC SCH ×2 (09:01→21:10)
[2016-10-31 10:03] VITALS: O2SAT 97
[2016-10-31] MEDS: ASPIRIN 81 MG CHEW PO SCH (10:45)
[2016-10-31] MEDS: FUROSEMIDE 80 MG TAB PO SCH ×2 (10:45→17:34)
--- NOTE | 2016-10-31 12:00 | Pharmacy Progress Note ---
Glycemic Control: Progress Nt Date of Service Oct 31, 2016. Scope Glycemic Pharmacist consulted by Dr Aviles on 10/23/16 for glycemic control and to write orders per [facility] inpatient glycemic control protocol. Objective Accuchecks BSG (last 24hrs): Test 10/30/16 16:39 10/30/16 20:42 10/31/16 06:10 10/31/16 08:07 Bedside Glucose 117 mg/dl (70-99) 168 mg/dl (70-99) 105 mg/dl (70-99) Random Glucose 91 mg/dl (70-99) Laboratory Data (last 24hrs) Test 10/31/16 06:10 Anion Gap 9.0 mmol/L BUN/Creatinine Ratio 23.0 Blood Urea Nitrogen 35 mg/dl Creatinine 1.50 mg/dl Potassium Level 3.9 mmol/L Sodium Level 141 mmol/L White Blood Count 13.97 K/uL HbA1c: Test 10/24/16 04:34 Hemoglobin A1c 9.6 % (4.5-5.6) H Recent Pertinent Medications Outpatient Anti-diabetic Regimen: * Levemir 80 units SQ BID * Novolin R 3 units BID * Glyburide 5mg daily9.6 * A1c = 9.6 % 10/24/16 The patient is currently receiving: * Basal insulin: Levemir 15 units SQ in the AM + 30 units in the PM yesterday * Correctional Insulin: Novolog Correction per scale ACHS Goal Range: Low 120 mg/dL - High 160 mg/dL Correction Factor: 10 mg/dL/unit * Prandial insulin: Per carb ratio of 1 unit per 3 grams CHO consumed * Oral Agents: None currently Risk Factors for Insulin Resistance: * Infection: sepsis secondary to finger gangrene; receiving Zosyn * Recent Surgery: POD # 8 * Diet: Pordered T2DM / AHA diet Assessment & Plan ASSESSMENT: 10/31/16 * Over the last 24 hours patient has received 93 units SQ insulin (while tolerating a diet) * Fasting BSG 91-105 this AM with 45 units Levemir on board - however must consider the patient did receive 14 units of Novolog at HS last night * Based upon a review of the last 3 days of insulin doses and diet, would expect the patient to require 80-90 units of insulin per day to achieve glycemic targets * Would like to adjust the basal insulin dose today so that patient receives 35- 40 units of basal insulin per day, less than currently ordered due to FBS less than 100 PLAN FOR INPATIENT GLYCEMIC CONTROL: * Change Levemir to 18 units SQ BID - give 1/2 dose (9 units) if BSG less than 120 * Continuing correction factor of 10 mg/dl/unit * Continuing carb ratio of 1 unit per 3 grams CHO consumed * Continuing goal range of Low 120 mg/dL - High 160 mg/dL * Please note that the plan above was derived based on current level of insulin resistance and hospital stress. These recommendations are appropriate for inpatient admission only. Plan of care upon discharge will need to be reassessed to avoid potential outpatient hypo/hyperglycemia. Thank you.
[2016-10-31 12:04] VITALS: BP 117/66; PULSE 67; TEMP 36.8; O2SAT 96
[2016-10-31 15:00] VITALS: BP 117/68; PULSE 63; TEMP 36.9; O2SAT 97
[2016-10-31 16:00] VITALS: O2SAT 97
--- NOTE | 2016-10-31 20:07 | Progress Note ---
Medicine Progress Note Date & Time of Visit: Oct 31, 2016 at 20:02. Subjective Patient seen and examined. Patient agreeable to [facility] referral for rehab upon discharge. Denies complaints. Objective Last 8 Hrs Date Time Temp Pulse Resp B/P Pulse Ox O2 Delivery O2 Flow Rate FiO2 10/31/16 16:00 97 Room Air 10/31/16 15:00 36.9 63 20 117/68 97 Room Air 10/31/16 12:04 36.8 67 18 117/66 96 Room Air Physical Exam: General-awake; alert; NAD Eyes-EOMI intact; no scleral icterus Neck-no stridor; trachea midline; skin breakdown at nape of neck Lungs-CTA bilaterally; no wheezes/crackles Heart-RRR; no m/r/g Abdomen-soft; NTND; nBS Extremities-right hand bandage c/d/i; left extremity stump c/d/i Neuro-oriented x3; answering questions appropriately Laboratory Results: Last 24 Hours Test 10/30/16 20:42 10/31/16 06:10 10/31/16 08:07 10/31/16 11:50 Bedside Glucose 168 mg/dl 105 mg/dl 115 mg/dl White Blood Count 13.97 K/uL Red Blood Count 4.22 M/uL Hemoglobin 12.2 g/dL Hematocrit 36.0 % Mean Corpuscular Volume 85.3 fL Mean Corpuscular Hemoglobin 28.9 pg Mean Corpuscular Hemoglobin Concent 33.9 g/dl RDW Standard Deviation 42.7 fL RDW Coefficient of Variation 13.9 % Platelet Count 395 K/uL Mean Platelet Volume 9.3 fL Sodium Level 141 mmol/L Potassium Level 3.9 mmol/L Chloride Level 107 mmol/L Carbon Dioxide Level 25 mmol/L Anion Gap 9.0 mmol/L Blood Urea Nitrogen 35 mg/dl Creatinine 1.50 mg/dl Est Creatinine Clear Calc Drug Dose 62.6 ml/min Estimated GFR () 55.8 Estimated GFR (Non- 48.2 BUN/Creatinine Ratio 23.0 Random Glucose 91 mg/dl Calcium Level 8.6 mg/dl Test 10/31/16 16:50 10/31/16 16:52 Bedside Glucose 78 mg/dl 69 mg/dl Assessment & Plan Severe sepsis -likely from the necrotic, gangrenous middle right finger -Orthopedics consulted -s/p right middle finger amputation and I&D of hand on 10/24 -ID consulted -received Zosyn, daptomycin and clindamycin (for 48hrs for potential antitoxin agents) -Zosyn change to Bactrim (on 10/31/16) for another 2 weeks -blood cultures from 10/23 with MSSA -repeat blood cultures from 10/24 negative -wound cultures with providencia, staphylococcus, streptococcus Diarrhea -Cdiff negative -loperamide PRN -improving Acute respiratory failure secondary to metabolic encephalopathy -intubated 10/23 - 10/26 -weaned off supplemental oxygen -resolved Acute renal failure -possibly related to sepsis -baseline creatinine is around 1.3-1.4 -continue holding losartan -received hydration -downtrending History of nonischemic cardiomyopathy -ejection fraction around 15-20% -continue aspirin, atorvastatin, metoprolol, ISMN, furosemide -hold losartan and metolazone until renal function returns to baseline Elevation troponin -likely due to demand ischemia from sepsis and ARF -downtrended -TTE showing no change from previous Type 2 DM -hba1c 9.6 -continue insulin -glycemic pharmacy consulted Hypothyroidism -continue Synthroid DVT prophylaxis with heparin sq PT recommending discharge to rehab vs SNF. Referral to [facility]; patient will require insurance authorization. Speech therapy will do VFSS tomorrow. Consultants: Dry Pan Operator ID Ortho Procedures: TTE * Compared to the prior study dated 12/11/15, there is persistent severe LV systolic dysfunction. CT head No acute intracranial findings Current Inpatient Medications: Current Inpatient Medications Medications (Trade) Dose Ordered Sig/Ifeanyi Route Start Time Stop Time Status Last Admin Dose Admin Lactobacillus Acidophilus (Floranex Tab) 1 tab TID PO 10/23/16 14:00 11/22/16 13:59 10/31/16 13:47 1 TAB Sertraline HCl 100 mg 100 mg DAILY PO 10/24/16 09:00 11/23/16 08:59 10/31/16 08:48 100 MG Piperacillin Sod/ Tazobactam Sod/ Dextrose (Zosyn Iv/D5 100ml) 120 ml @ 30 mls/hr Q8H IV 10/23/16 16:00 11/02/16 15:59 10/31/16 16:50 30 MLS/HR Miscellaneous Information (Consult Glycemic Management Pharmacy) 1 ea UD PRN N/A 10/23/16 14:30 11/22/16 14:29 Heparin Sodium (Porcine) (Heparin Sq 5000 Unit/0.5ml) 5,000 unit Q8 SQ 10/23/16 14:00 11/22/16 13:59 10/31/16 13:48 5,000 UNIT Piperacillin Sod/ Tazobactam Sod (Consult) 1 ea UD PRN N/A 10/23/16 14:30 11/22/16 14:29 Multi-Ingredient Ointment (Eucerin Unscented Cr) 1 appln BID EXT 10/24/16 21:00 11/23/16 20:59 10/31/16 08:05 1 APPLN Aspirin (Aspirin Chew) 81 mg DAILY PO 10/26/16 09:00 11/25/16 08:59 10/31/16 10:45 81 MG Levothyroxine Sodium (Synthroid Tab) 50 mcg DAILYBB PO 10/25/16 11:00 11/24/16 10:59 10/31/16 05:30 50 MCG Docusate Sodium (coLACE SYRUP) 100 mg BID PO 10/25/16 21:00 11/24/16 20:59 Future Hold 10/29/16 08:09 100 MG Labetalol HCl (Normodyne IV) 20 mg Q1H PRN IV 10/26/16 18:45 11/25/16 18:44 10/27/16 21:49 20 MG Hydralazine HCl (HydrALAZINE INJ) 10 mg Q4H PRN IV. 10/26/16 18:45 11/25/16 18:44 Bisacodyl (Dulcolax Supp) 10 mg DAILY PRN NE 10/27/16 11:30 11/26/16 11:29 Atorvastatin Calcium (Lipitor Tab) 80 mg DAILY PO 10/29/16 09:00 11/28/16 08:59 10/31/16 08:49 80 MG Furosemide (Lasix Tab) 80 mg BID17 PO 10/28/16 17:00 11/27/16 16:59 Future hold 10/31/16 17:34 80 MG Isosorbide Mononitrate (Imdur Ext Rel Tab) 15 mg DAILY PO 10/29/16 09:00 11/28/16 08:59 10/31/16 08:51 15 MG Metoprolol Succinate (Toprol Xl Tab) 25 mg BID PO 10/28/16 21:00 11/27/16 20:59 10/31/16 08:51 25 MG Acetaminophen (Tylenol Tab) 650 mg Q4H PRN PO 10/28/16 16:00 11/27/16 15:59 Insulin Aspart (novoLOG ASPART) SLIDING SCALE G... ACHS SC 10/28/16 21:00 11/27/16 20:59 10/31/16 12:39 14 UNITS Potassium Chloride (Klor-Con Tab) 20 meq BID PO 10/29/16 09:00 11/28/16 08:59 10/31/16 08:49 20 MEQ Loperamide HCl (Imodium Cap) 2 mg Q4 PRN PO 10/29/16 21:15 11/28/16 21:14 Insulin Detemir (Levemir Flexpen/ FlexTouch) 9 units if BSG less than ... BID SC 10/31/16 21:00 11/30/16 20:59
--- NOTE | 2016-10-31 20:29 | Infectious Disease Progress Nt ---
Progress Note Date of Service Oct 31, 2016. Subjective Pt evaluation today including: conversation w/ patient, physical exam, chart review, lab review, review of studies, conversation w/ senior erp consultant, review of inpatient medication list Offers no new complaints today. Remains afebrile. All Other Systems: Reviewed and Negative Medications Current Inpatient Medications Medications (Trade) Dose Ordered Sig/Ifeanyi Route Start Time Stop Time Status Last Admin Dose Admin Lactobacillus Acidophilus (Floranex Tab) 1 tab TID PO 10/23/16 14:00 11/22/16 13:59 10/31/16 13:47 1 TAB Sertraline HCl (Zoloft Tab) 100 mg DAILY PO 10/24/16 09:00 11/23/16 08:59 10/31/16 08:48 100 MG Miscellaneous Information (Consult Glycemic Management Pharmacy) 1 ea UD PRN N/A 10/23/16 14:30 11/22/16 14:29 Heparin Sodium (Porcine) (Heparin Sq 5000 Unit/0.5ml) 5,000 unit Q8 SQ 10/23/16 14:00 11/22/16 13:59 10/31/16 13:48 5,000 UNIT Piperacillin Sod/ Tazobactam Sod (Consult) 1 ea UD PRN N/A 10/23/16 14:30 11/22/16 14:29 Multi-Ingredient Ointment (Eucerin Unscented Cr) 1 appln BID EXT 10/24/16 21:00 11/23/16 20:59 10/31/16 08:05 1 APPLN Aspirin (Aspirin Chew) 81 mg DAILY PO 10/26/16 09:00 11/25/16 08:59 10/31/16 10:45 81 MG Levothyroxine Sodium (Synthroid Tab) 50 mcg DAILYBB PO 10/25/16 11:00 11/24/16 10:59 10/31/16 05:30 50 MCG Docusate Sodium (coLACE SYRUP) 100 mg BID PO 10/25/16 21:00 11/24/16 20:59 Future Hold 10/29/16 08:09 100 MG Labetalol HCl (Normodyne IV) 20 mg Q1H PRN IV 10/26/16 18:45 11/25/16 18:44 10/27/16 21:49 20 MG Hydralazine HCl (HydrALAZINE INJ) 10 mg Q4H PRN IV. 10/26/16 18:45 11/25/16 18:44 Bisacodyl (Dulcolax Supp) 10 mg DAILY PRN OR 10/27/16 11:30 11/26/16 11:29 Atorvastatin Calcium (Lipitor Tab) 80 mg DAILY PO 10/29/16 09:00 11/28/16 08:59 10/31/16 08:49 80 MG Furosemide (Lasix Tab) 80 mg BID17 PO 10/28/16 17:00 11/27/16 16:59 Future hold 10/31/16 17:34 80 MG Isosorbide Mononitrate (Imdur Ext Rel Tab) 15 mg DAILY PO 10/29/16 09:00 11/28/16 08:59 10/31/16 08:51 15 MG Metoprolol Succinate (Toprol Xl Tab) 25 mg BID PO 10/28/16 21:00 11/27/16 20:59 10/31/16 08:51 25 MG Acetaminophen (Tylenol Tab) 650 mg Q4H PRN PO 10/28/16 16:00 11/27/16 15:59 Insulin Aspart (novoLOG ASPART) SLIDING SCALE G... ACHS SC 10/28/16 21:00 11/27/16 20:59 10/31/16 12:39 14 UNITS Potassium Chloride (Klor-Con Tab) 20 meq BID PO 10/29/16 09:00 11/28/16 08:59 10/31/16 08:49 20 MEQ Loperamide HCl (Imodium Cap) 2 mg Q4 PRN PO 10/29/16 21:15 11/28/16 21:14 Insulin Detemir (Levemir Flexpen/ FlexTouch) 9 units if BSG less than ... BID SC 10/31/16 21:00 11/30/16 20:59 Trimethoprim/ Sulfamethoxazole (Septra Ds 800/ 160MG Tab) 1 tab Q12 PO 10/31/16 21:00 11/14/16 20:59 Objective Vital Signs Date Time Temp Pulse Resp B/P Pulse Ox O2 Delivery O2 Flow Rate FiO2 10/31/16 16:00 97 Room Air 10/31/16 15:00 36.9 63 20 117/68 97 Room Air 10/31/16 12:04 36.8 67 18 117/66 96 Room Air 10/31/16 10:03 97 Room Air 10/31/16 08:00 36.7 59 18 137/77 97 Room Air 10/31/16 07:45 Room Air 10/31/16 00:55 Room Air 10/30/16 23:40 36.5 53 18 132/70 98 Room Air 10/30/16 20:59 75 128/61 Physical Exam General Appearance: WD/WN, no apparent distress Eyes: normal inspection, EOMI, sclerae normal ENT: normal ENT inspection, pharynx normal Neck: supple, no adenopathy, trachea midline Respiratory/Chest: chest non-tender, lungs clear, normal breath sounds, no respiratory distress Cardiovascular: regular rate, rhythm, no gallop, no murmur Abdomen: normal bowel sounds, non tender, soft Extremities: non-tender, no calf tenderness Neurologic/Psychiatric: alert, oriented x 3 (With) Skin: normal color, no rash, + pertinent finding (Dressing intact right hand) Lymphatic: no adenopathy Laboratory Results Last 24 Hours Test 10/30/16 20:42 10/31/16 06:10 10/31/16 08:07 10/31/16 11:50 Bedside Glucose 168 mg/dl 105 mg/dl 115 mg/dl White Blood Count 13.97 K/uL Red Blood Count 4.22 M/uL Hemoglobin 12.2 g/dL Hematocrit 36.0 % Mean Corpuscular Volume 85.3 fL Mean Corpuscular Hemoglobin 28.9 pg Mean Corpuscular Hemoglobin Concent 33.9 g/dl RDW Standard Deviation 42.7 fL RDW Coefficient of Variation 13.9 % Platelet Count 395 K/uL Mean Platelet Volume 9.3 fL Sodium Level 141 mmol/L Potassium Level 3.9 mmol/L Chloride Level 107 mmol/L Carbon Dioxide Level 25 mmol/L Anion Gap 9.0 mmol/L Blood Urea Nitrogen 35 mg/dl Creatinine 1.50 mg/dl Est Creatinine Clear Calc Drug Dose 62.6 ml/min Estimated GFR () 55.8 Estimated GFR (Non- 48.2 BUN/Creatinine Ratio 23.0 Random Glucose 91 mg/dl Calcium Level 8.6 mg/dl Test 10/31/16 16:50 10/31/16 16:52 Bedside Glucose 78 mg/dl 69 mg/dl Assessment and Plan (1) Severe sepsis Status: Acute Secondary to gangrenous right upper extremity finger POD #4 right third digit amputation of hand Clindamycin and daptomycin held per infectious disease Continue Zosyn Blood cultures growing methicillin sensitive Staph aureus Wound cultures growing Staph aureus, strep, Providencia, Gram-negative bacilli Course of treatment per infectious disease Continue isolation for history of positive MRSA screen in the nares 09/07/15 (2) Septic shock Status: Acute Now hemodynamically stable Continues with fever - Tmax 38.3 Plan on extubation today WBC 10.33 today Lactic acid normal Continue Zosyn per infectious disease (see above) (3) Acute encephalopathy Patient is off sedation for mechanical ventilation Anticipate extubation later today Renal function improving Most likely due to severe sepsis Status post amputation of finger with gangrene Continue antibiotic treatment CT head 10/25/16 negative for acute findings Continue to monitor (4) Elevated troponin I measurement Most likely leak from severe sepsis No ST changes on EKG History of ischemic cardiomyopathy Left ventricular ejection fraction 15-20% Severe global hypokinesis of the left ventricle Left ventricle is severely dilated No evidence of aortic stenosis (5) PATRICIA (acute kidney injury) Improving Creatinine down to 1.9 from 2.2 BUN continues to be elevated 2.3 L ahead for fluid status since admission Continue to monitor serial labs IV fluids held for pulmonary edema Currently requiring diuresis with twice a day furosemide Continue strict I's and O's (6) Necrotic wound of right hand Status: Acute Status post right middle finger amputation with Dr. Henriquez Ortho continues to follow (7) CHF (congestive heart failure) Status: Chronic IV fluids held Patient receiving diuresis twice daily Left ventricular ejection fraction 15-20% Continue to monitor on telemetry Continue strict I's and O's (8) DM type 2 (diabetes mellitus, type 2) Status: Chronic Patient on glyburide and Novolin R at home Hemoglobin A1c 9.6 Continue sliding scale insulin Levemir held Pharmacy consult for glycemic management Continue close monitoring (9) Hypothyroidism Status: Chronic Continue levothyroxine (10) Biventricular ICD (implantable cardioverter-defibrillator) in place Status: Chronic EKG representing pacer spikes Patient be monitored on telemetry (11) CAD (coronary artery disease) Status: Chronic Atorvastatin, imdur, Cozaar, Toprol-XL at home Antihypertensives held secondary to hypotension due to septic shock Resume PO meds as able once patient is extubated (12) History of MRSA infection Status: Chronic Wound cultures with MSSA Positive MRSA screening in nares 09/07/15 Continue isolation protocol Discussed with infection control (13) DVT prophylaxis Heparin subcutaneous Sepsis with septic shock, with methicillin sensitive Staph aureus , secondary to gangrenous right third finger infection now s/p amputation in patient with diabetes and multiple other co-morbidities. Given infected digit has been amputated, should be able to transition to oral Abx. Have recommended Bactrim D. S. Will follow.
[2016-10-31] MEDS: SULFAMETHOXAZOLE/TRIMETHOPRIM DS 800/160MG TAB PO SCH (21:54)
[2016-10-31 23:32] VITALS: BP 149/73; PULSE 60; TEMP 36.7; O2SAT 94
[2016-11-01] MEDS: HEPARIN SOD 5000 UNIT/0.5 ML CARP SQ SCH ×3 (05:47→20:59)
[2016-11-01] MEDS: LEVOTHYROXINE 50 MCG TAB PO SCH (05:50)
[2016-11-01 07:05] VITALS: BP 114/74; PULSE 71; TEMP 36.8; O2SAT 92
[2016-11-01 08:37] LABS: MEAN CELL VOLUME 86.1 fL (80-100); MEAN CORPUSCULAR HEMOGLOBIN 30.1 pg (25-34); MEAN PLATELET VOLUME 9.9 fL (7.4-10.4); PLATELET COUNT 325 K/uL (130-400); RED BLOOD COUNT 4.18 M/uL (4.7-6.1); WHITE BLOOD COUNT 12.31 K/uL (4.8-10.8)
[2016-11-01 09:02] LABS: BUN/CREATININE RATIO 21.6 (10-20); CALCIUM 8.8 mg/dl (8.5-10.1); CREATININE 1.6 mg/dl (0.60-1.40)
[2016-11-01] MEDS: METOPROLOL SUCC 25MG EXT REL TAB PO SCH ×2 (09:29→20:50)
[2016-11-01] MEDS: ATORVASTATIN 40 MG TAB PO SCH (09:29)
[2016-11-01] MEDS: SERTRALINE HCL 100 MG TAB PO SCH (09:29)
[2016-11-01] MEDS: LACTOBACILLUS ACIDOPHILUS (FLORANEX) TAB PO SCH ×3 (09:29→20:50)
[2016-11-01] MEDS: ISOSORBIDE MONONITRATE 30 MG TABCR PO SCH (09:30)
[2016-11-01] MEDS: POTASSIUM CHLORIDE 20 MEQ TABCR PO SCH ×2 (09:30→20:51)
[2016-11-01] MEDS: SULFAMETHOXAZOLE/TRIMETHOPRIM DS 800/160MG TAB PO SCH ×2 (09:31→20:52)
[2016-11-01] MEDS: EUCERIN CR 120 GM JAR EXT SCH ×2 (09:31→20:45)
[2016-11-01] MEDS: FUROSEMIDE 80 MG TAB PO SCH ×2 (09:31→18:07)
[2016-11-01] MEDS: INSULIN ASPART 100 UNITS/ML 3 ML PEN SC SCH ×4 (09:39→20:54)
[2016-11-01] MEDS: INSULIN DETEMIR FLEXPEN/FLEX TOUCH 100 UNITS/ML 3ML SC SCH ×2 (09:44→20:59)
[2016-11-01] MEDS: ASPIRIN 81 MG CHEW PO SCH (09:44)
--- NOTE | 2016-11-01 12:44 | DIAGNOSTIC IMAGING REPORT ---
MODIFIED BARIUM SWALLOW CLINICAL HISTORY: Septic shock. Evaluate for aspiration. COMPARISON STUDY: No previous studies for comparison. Fluoroscopy time: 2.9 minutes. FINDINGS: Trace tracheal aspiration was noted with thin liquids by spoon. There was a small amount of tracheal aspiration with single swallows of thin liquids. This persisted despite chin tuck. There was no aspiration with nectar thick liquids, pudding or crackers with paste. Esophageal dysmotility was noted. IMPRESSION: 1. Tracheal aspiration with thin liquids. No aspiration with the remainder of the consistencies. 2. Moderate esophageal dysmotility. 3. Full recommendations by speech pathology to follow. Electronically signed by: Ramesh Ham M.D. 11/01/2016 12:42 PM Dictated Date/Time: 11/01/2016 12:40 PM
--- NOTE | 2016-11-01 13:04 | Pharmacy Progress Note ---
Glycemic Control: Progress Nt Date of Service Nov 01, 2016. Scope Glycemic Pharmacist consulted by Dr Aviles on 10/23/16 for glycemic control and to write orders per [facility] inpatient glycemic control protocol. Objective Accuchecks BSG (last 24hrs): Test 10/31/16 16:50 10/31/16 16:52 10/31/16 21:03 11/01/16 08:05 Bedside Glucose 78 mg/dl (70-99) 69 mg/dl (70-99) 156 mg/dl (70-99) Random Glucose 177 mg/dl (70-99) Test 11/01/16 08:29 11/01/16 12:45 Bedside Glucose 163 mg/dl (70-99) 199 mg/dl (70-99) Laboratory Data (last 24hrs) Test 11/01/16 08:05 11/01/16 08:25 Anion Gap 10.0 mmol/L BUN/Creatinine Ratio 21.6 Blood Urea Nitrogen 35 mg/dl Creatinine 1.60 mg/dl Potassium Level 4.0 mmol/L Sodium Level 136 mmol/L White Blood Count 12.31 K/uL HbA1c: Test 10/24/16 04:34 Hemoglobin A1c 9.6 % (4.5-5.6) H Recent Pertinent Medications Outpatient Anti-diabetic Regimen: * Levemir 80 units SQ BID * Novolin R 3 units BID * Glyburide 5mg daily9.6 * A1c = 9.6 % 10/24/16 The patient is currently receiving: * Basal insulin: Levemir 18 units SQ BID; give 1/2 dose (9 units) if BSG less than 120 * Correctional Insulin: Novolog Correction per scale ACHS Goal Range: Low 120 mg/dL - High 160 mg/dL Correction Factor: 10 mg/dL/unit * Prandial insulin: Per carb ratio of 1 unit per 3 grams CHO consumed * Oral Agents: None currently Risk Factors for Insulin Resistance: * Infection: sepsis secondary to finger gangrene; transitioned to Bactrim PO * Recent Surgery: POD # 9 * Diet: ordered T2DM / AHA diet; tolerating PO intake however intake appears to be erratic, sometimes skipping meals, sometimes having HS meal Assessment & Plan ASSESSMENT: 10/31/16 * Over the last 24 hours patient has received 93 units SQ insulin (while tolerating a diet) * Fasting BSG 91-105 this AM with 45 units Levemir on board - however must consider the patient did receive 14 units of Novolog at HS last night * Based upon a review of the last 3 days of insulin doses and diet, would expect the patient to require 80-90 units of insulin per day to achieve glycemic targets * Would like to adjust the basal insulin dose today so that patient receives 35- 40 units of basal insulin per day, less than currently ordered due to FBS less than 100 11/01/16 * Glycemic control has been acceptable over the last 24 hours, with the exception of one episode of mild hypoglycemia pre-dinner (BSG 69) * Over the last 24 hrs the patient received 63 units of insulin * Fasting BSG 163 this AM w/ 33 units basal on board - current Levemir dose will provide 36 units/day * Will reduce the prandial insulin dose slightly given the episode of pre- dinner hypoglycemia yesterday that was likely secondary to excess prandial insulin w/ lunch * Currently estimate patient to require ~80 units of insulin per day when consuming 3 meals/day PLAN FOR INPATIENT GLYCEMIC CONTROL: * Continue Levemir 18 units SQ BID - give 1/2 dose (9 units) if BSG less than 120 * Changing correction factor to 12 mg/dl/unit * Changing carb ratio to 1 unit per 4 grams CHO consumed * Continuing goal range of Low 120 mg/dL - High 160 mg/dL to allow for a buffer against hypoglycemia * Please note that the plan above was derived based on current level of insulin resistance and hospital stress. These recommendations are appropriate for inpatient admission only. Plan of care upon discharge will need to be reassessed to avoid potential outpatient hypo/hyperglycemia. Thank you.
[2016-11-01 16:25] VITALS: BP 116/67; PULSE 62; TEMP 37; O2SAT 98
--- NOTE | 2016-11-01 17:57 | Progress Note ---
Internal Med Progress Note Date of Service: Nov 01, 2016. Provider Documentation: SUBJECTIVE: resting comfortably had video swallow study today having diarrhea feeling thirsty denies chest pain o sob afebrile OBJECTIVE: Vital Signs-as noted below Exam: General-alert and awake and oriented. Not in distress ENT-normal hearing Neck-no neck masses Lungs-cta b/l no wheezing or crackles Heart-s1 and s2 heard, regular rate and rhythm no murmurs Abdomen-soft bowel sounds present non tender no distension Extremities-no edema no erythema s/p Right index finger amputation. Multiple toe amputations and left AKA Neuro-alert and awake moves extremities Lab data as noted below. ASSESSMENT & PLAN: Severe sepsis Most likely from the necrotic, gangrenous middle right finger Orthopedics was consulted s/p right middle finger amputation and I&D of hand on 10/24 ID on board Received Zosyn, daptomycin and clindamycin (for 48hrs for potential antitoxin agents) Zosyn change to Bactrim (on 10/31/16) for another 2 weeks as per ID blood cultures from 10/23 with MSSA repeat blood cultures from 10/24 negative wound cultures growing providencia, staphylococcus, streptococcus pt/ot plan for rehab Diarrhea Cdiff negative loperamide PRN will monitor Acute respiratory failure secondary to metabolic encephalopathy intubated 10/23 - 10/26 s/p extubation Acute renal failure possibly related to sepsis baseline creatinine is around 1.3-1.4 cr 1.6 today continue holding losartan received hydration will f/u labs History of nonischemic cardiomyopathy ejection fraction around 15-20% On aspirin, atorvastatin, metoprolol, ISMN, furosemide holding losartan and metolazone until renal function returns to baseline Elevation troponin likely due to demand ischemia from sepsis and ARF TTE showing no change from previous stable Type 2 DM hba1c 9.6 On insulin glycemic pharmacy consulted will monitor. Hypothyroidism On Synthroid DVT prophylaxis with heparin sq PT recommending discharge to rehab vs SNF. Referral to [facility];await insurance authorization. Vital Signs: Date Time Temp Pulse Resp B/P Pulse Ox O2 Delivery O2 Flow Rate FiO2 11/01/16 16:25 37.0 62 18 116/67 98 Room Air 11/01/16 08:40 Room Air 11/01/16 07:05 36.8 71 18 114/74 92 Room Air 11/01/16 00:15 Room Air 10/31/16 23:32 36.7 60 18 149/73 94 Room Air Lab Results: Results Past 24 Hours Test 10/31/16 21:03 11/01/16 08:05 11/01/16 08:25 11/01/16 08:29 Range/Units Bedside Glucose 156 163 70-99 mg/dl Sodium Level 136 136-145 mmol/L Potassium Level 4.0 3.5-5.1 mmol/L Chloride Level 105 98-107 mmol/L Carbon Dioxide Level 21 21-32 mmol/L Anion Gap 10.0 3-11 mmol/L Blood Urea Nitrogen 35 7-18 mg/dl Creatinine 1.60 0.60-1.40 mg/dl Est Creatinine Clear Calc Drug Dose 58.7 ml/min Estimated GFR () 51.6 Estimated GFR (Non- 44.5 BUN/Creatinine Ratio 21.6 10-20 Random Glucose 177 70-99 mg/dl Calcium Level 8.8 8.5-10.1 mg/dl White Blood Count 12.31 4.8-10.8 K/uL Red Blood Count 4.18 4.7-6.1 M/uL Hemoglobin 12.6 14.0-18.0 g/dL Hematocrit 36.0 42-52 % Mean Corpuscular Volume 86.1 80-100 fL Mean Corpuscular Hemoglobin 30.1 25-34 pg Mean Corpuscular Hemoglobin Concent 35.0 32-36 g/dl RDW Standard Deviation 44.0 36.4-46.3 fL RDW Coefficient of Variation 14.1 11.5-14.5 % Platelet Count 325 130-400 K/uL Mean Platelet Volume 9.9 7.4-10.4 fL Test 11/01/16 12:45 11/01/16 17:09 Range/Units Bedside Glucose 199 127 70-99 mg/dl
--- NOTE | 2016-11-01 19:04 | Infectious Disease Progress Nt ---
Progress Note Date of Service Nov 01, 2016. Subjective Pt evaluation today including: conversation w/ patient, physical exam, chart review, lab review, review of studies, conversation w/ program evaluation consultant, review of inpatient medication list Patient still having diarrhea, C difficile PCR negative. Remains afebrile. No other new complaints. All Other Systems: Reviewed and Negative Medications Current Inpatient Medications Medications (Trade) Dose Ordered Sig/Ifeanyi Route Start Time Stop Time Status Last Admin Dose Admin Lactobacillus Acidophilus (Floranex Tab) 1 tab TID PO 10/23/16 14:00 11/22/16 13:59 11/01/16 12:57 1 TAB Sertraline HCl (Zoloft Tab) 100 mg DAILY PO 10/24/16 09:00 11/23/16 08:59 11/01/16 09:29 100 MG Miscellaneous Information (Consult Glycemic Management Pharmacy) 1 ea UD PRN N/A 10/23/16 14:30 11/22/16 14:29 Heparin Sodium (Porcine) (Heparin Sq 5000 Unit/0.5ml) 5,000 unit Q8 SQ 10/23/16 14:00 11/22/16 13:59 11/01/16 12:58 5,000 UNIT Multi-Ingredient Ointment (Eucerin Unscented Cr) 1 appln BID EXT 10/24/16 21:00 11/23/16 20:59 11/01/16 09:31 1 APPLN Aspirin (Aspirin Chew) 81 mg DAILY PO 10/26/16 09:00 11/25/16 08:59 11/01/16 09:44 81 MG Levothyroxine Sodium (Synthroid Tab) 50 mcg DAILYBB PO 10/25/16 11:00 11/24/16 10:59 11/01/16 05:50 50 MCG Docusate Sodium (coLACE SYRUP) 100 mg BID PO 10/25/16 21:00 11/24/16 20:59 Future Hold 10/29/16 08:09 100 MG Labetalol HCl (Normodyne IV) 20 mg Q1H PRN IV 10/26/16 18:45 11/25/16 18:44 10/27/16 21:49 20 MG Hydralazine HCl (HydrALAZINE INJ) 10 mg Q4H PRN IV. 10/26/16 18:45 3/24/17 18:44 Bisacodyl (Dulcolax Supp) 10 mg DAILY PRN WI 10/27/16 11:30 11/26/16 11:29 Atorvastatin Calcium (Lipitor Tab) 80 mg DAILY PO 10/29/16 09:00 11/28/16 08:59 11/01/16 09:29 80 MG Furosemide (Lasix Tab) 80 mg BID17 PO 10/28/16 17:00 11/27/16 16:59 Future hold 11/01/16 18:07 80 MG Isosorbide Mononitrate (Imdur Ext Rel Tab) 15 mg DAILY PO 10/29/16 09:00 11/28/16 08:59 11/01/16 09:30 15 MG Metoprolol Succinate (Toprol Xl Tab) 25 mg BID PO 10/28/16 21:00 11/27/16 20:59 11/01/16 09:29 25 MG Acetaminophen (Tylenol Tab) 650 mg Q4H PRN PO 10/28/16 16:00 11/27/16 15:59 Insulin Aspart (novoLOG ASPART) SLIDING SCALE G... ACHS SC 10/28/16 21:00 11/27/16 20:59 11/01/16 18:07 15 UNITS Potassium Chloride (Klor-Con Tab) 20 meq BID PO 10/29/16 09:00 11/28/16 08:59 11/01/16 09:30 20 MEQ Loperamide HCl (Imodium Cap) 2 mg Q4 PRN PO 10/29/16 21:15 11/28/16 21:14 Insulin Detemir (Levemir Flexpen/ FlexTouch) 9 units if BSG less than ... BID SC 10/31/16 21:00 11/30/16 20:59 11/01/16 09:44 18 UNIT Trimethoprim/ Sulfamethoxazole (Septra Ds 800/ 160MG Tab) 1 tab Q12 PO 10/31/16 21:00 11/14/16 20:59 11/01/16 09:31 1 TAB Objective Vital Signs Date Time Temp Pulse Resp B/P Pulse Ox O2 Delivery O2 Flow Rate FiO2 11/01/16 16:25 37.0 62 18 116/67 98 Room Air 11/01/16 08:40 Room Air 11/01/16 07:05 36.8 71 18 114/74 92 Room Air 11/01/16 00:15 Room Air 10/31/16 23:32 36.7 60 18 149/73 94 Room Air Physical Exam General Appearance: WD/WN, no apparent distress Eyes: normal inspection, sclerae normal ENT: normal ENT inspection, pharynx normal Neck: supple, trachea midline Respiratory/Chest: lungs clear, normal breath sounds, no respiratory distress Cardiovascular: regular rate, rhythm, no gallop, no murmur Abdomen: normal bowel sounds, non tender, soft, no organomegaly Extremities: non-tender, no calf tenderness Neurologic/Psychiatric: alert, oriented x 3 Skin: normal color, no rash, + pertinent finding (Amputation site healing) Lymphatic: no adenopathy Laboratory Results Last 24 Hours Test 10/31/16 21:03 11/01/16 08:05 11/01/16 08:25 11/01/16 08:29 Bedside Glucose 156 mg/dl 163 mg/dl Sodium Level 136 mmol/L Potassium Level 4.0 mmol/L Chloride Level 105 mmol/L Carbon Dioxide Level 21 mmol/L Anion Gap 10.0 mmol/L Blood Urea Nitrogen 35 mg/dl Creatinine 1.60 mg/dl Est Creatinine Clear Calc Drug Dose 58.7 ml/min Estimated GFR () 51.6 Estimated GFR (Non- 44.5 BUN/Creatinine Ratio 21.6 Random Glucose 177 mg/dl Calcium Level 8.8 mg/dl White Blood Count 12.31 K/uL Red Blood Count 4.18 M/uL Hemoglobin 12.6 g/dL Hematocrit 36.0 % Mean Corpuscular Volume 86.1 fL Mean Corpuscular Hemoglobin 30.1 pg Mean Corpuscular Hemoglobin Concent 35.0 g/dl RDW Standard Deviation 44.0 fL RDW Coefficient of Variation 14.1 % Platelet Count 325 K/uL Mean Platelet Volume 9.9 fL Test 11/01/16 12:45 11/01/16 17:09 Bedside Glucose 199 mg/dl 127 mg/dl Assessment and Plan (1) Severe sepsis Status: Acute Secondary to gangrenous right upper extremity finger POD #4 right third digit amputation of hand Clindamycin and daptomycin held per infectious disease Continue Zosyn Blood cultures growing methicillin sensitive Staph aureus Wound cultures growing Staph aureus, strep, Providencia, Gram-negative bacilli Course of treatment per infectious disease Continue isolation for history of positive MRSA screen in the nares 09/07/15 (2) Septic shock Status: Acute Now hemodynamically stable Continues with fever - Tmax 38.3 Plan on extubation today WBC 10.33 today Lactic acid normal Continue Zosyn per infectious disease (see above) (3) Acute encephalopathy Patient is off sedation for mechanical ventilation Anticipate extubation later today Renal function improving Most likely due to severe sepsis Status post amputation of finger with gangrene Continue antibiotic treatment CT head 10/25/16 negative for acute findings Continue to monitor (4) Elevated troponin I measurement Most likely leak from severe sepsis No ST changes on EKG History of ischemic cardiomyopathy Left ventricular ejection fraction 15-20% Severe global hypokinesis of the left ventricle Left ventricle is severely dilated No evidence of aortic stenosis (5) PATRICIA (acute kidney injury) Improving Creatinine down to 1.9 from 2.2 BUN continues to be elevated 2.3 L ahead for fluid status since admission Continue to monitor serial labs IV fluids held for pulmonary edema Currently requiring diuresis with twice a day furosemide Continue strict I's and O's (6) Necrotic wound of right hand Status: Acute Status post right middle finger amputation with Dr. Henriquez Ortho continues to follow (7) CHF (congestive heart failure) Status: Chronic IV fluids held Patient receiving diuresis twice daily Left ventricular ejection fraction 15-20% Continue to monitor on telemetry Continue strict I's and O's (8) DM type 2 (diabetes mellitus, type 2) Status: Chronic Patient on glyburide and Novolin R at home Hemoglobin A1c 9.6 Continue sliding scale insulin Levemir held Pharmacy consult for glycemic management Continue close monitoring (9) Hypothyroidism Status: Chronic Continue levothyroxine (10) Biventricular ICD (implantable cardioverter-defibrillator) in place Status: Chronic EKG representing pacer spikes Patient be monitored on telemetry (11) CAD (coronary artery disease) Status: Chronic Atorvastatin, imdur, Cozaar, Toprol-XL at home Antihypertensives held secondary to hypotension due to septic shock Resume PO meds as able once patient is extubated (12) History of MRSA infection Status: Chronic Wound cultures with MSSA Positive MRSA screening in nares 09/07/15 Continue isolation protocol Discussed with infection control (13) DVT prophylaxis Heparin subcutaneous Sepsis with septic shock, with methicillin sensitive Staph aureus , secondary to gangrenous right third finger infection now s/p amputation in patient with diabetes and multiple other co-morbidities. Given infected digit has been amputated, should be able to transition to oral Abx. Have recommended Bactrim D. S. Will follow.
[2016-11-01 20:48] VITALS: BP 132/78; PULSE 63
[2016-11-01 23:40] VITALS: BP 114/75; PULSE 59; TEMP 36.4; O2SAT 97
[2016-11-02] MEDS ORDERED: NURSING VERBAL MED ORDER ONE
[2016-11-02] MEDS: CALCIUM CARBONATE 500 MG CHEWABLE PO PRN ×4 (00:14→20:28)
[2016-11-02] MEDS: LEVOTHYROXINE 50 MCG TAB PO SCH (05:51)
[2016-11-02] MEDS: HEPARIN SOD 5000 UNIT/0.5 ML CARP SQ SCH ×3 (05:57→22:27)
[2016-11-02 07:35] VITALS: BP 115/64; PULSE 62; TEMP 36.4; O2SAT 97
[2016-11-02] MEDS: EUCERIN CR 120 GM JAR EXT SCH ×2 (08:36→21:00)
[2016-11-02] MEDS: POTASSIUM CHLORIDE 20 MEQ TABCR PO SCH ×2 (08:36→20:30)
[2016-11-02] MEDS: FUROSEMIDE 80 MG TAB PO SCH ×2 (08:36→18:29)
[2016-11-02] MEDS: SERTRALINE HCL 100 MG TAB PO SCH (08:36)
[2016-11-02] MEDS: ATORVASTATIN 40 MG TAB PO SCH (08:37)
[2016-11-02] MEDS: SULFAMETHOXAZOLE/TRIMETHOPRIM DS 800/160MG TAB PO SCH ×2 (08:37→20:30)
[2016-11-02] MEDS: LACTOBACILLUS ACIDOPHILUS (FLORANEX) TAB PO SCH ×3 (08:37→20:30)
[2016-11-02] MEDS: ISOSORBIDE MONONITRATE 30 MG TABCR PO SCH (08:37)
[2016-11-02] MEDS: METOPROLOL SUCC 25MG EXT REL TAB PO SCH ×2 (08:38→20:30)
[2016-11-02] MEDS: INSULIN ASPART 100 UNITS/ML 3 ML PEN SC SCH ×4 (08:43→20:54)
[2016-11-02] MEDS: ASPIRIN 81 MG CHEW PO SCH (08:44)
[2016-11-02] MEDS: INSULIN DETEMIR FLEXPEN/FLEX TOUCH 100 UNITS/ML 3ML SC SCH ×2 (08:44→20:50)
--- NOTE | 2016-11-02 12:12 | Pharmacy Progress Note ---
Glycemic Control: Progress Nt Date of Service Nov 02, 2016. Scope Glycemic Pharmacist consulted by Dr Aviles on 10/23/16 for glycemic control and to write orders per [facility] inpatient glycemic control protocol. Objective Accuchecks BSG (last 24hrs): Test 11/01/16 12:45 11/01/16 17:09 11/01/16 20:46 11/02/16 07:58 Bedside Glucose 199 mg/dl (70-99) 127 mg/dl (70-99) 115 mg/dl (70-99) 149 mg/dl (70-99) Test 11/02/16 11:12 Bedside Glucose 199 mg/dl (70-99) HbA1c: Test 10/24/16 04:34 Hemoglobin A1c 9.6 % (4.5-5.6) H Recent Pertinent Medications Outpatient Anti-diabetic Regimen: * Levemir 80 units SQ BID * Novolin R 3 units BID * Glyburide 5mg daily9.6 * A1c = 9.6 % 10/24/16 The patient is currently receiving: * Basal insulin: Levemir 18 units SQ BID; give 1/2 dose (9 units) if BSG less than 120 * Correctional Insulin: Novolog Correction per scale ACHS Goal Range: Low 120 mg/dL - High 160 mg/dL Correction Factor: 12 mg/dL/unit * Prandial insulin: Per carb ratio of 1 unit per 4 grams CHO consumed * Oral Agents: None currently Risk Factors for Insulin Resistance: * Infection: sepsis secondary to finger gangrene; transitioned to Bactrim PO * Recent Surgery: POD # 10 * Diet: ordered T2DM / AHA diet; tolerating PO intake however intake appears to be erratic, sometimes skipping meals, sometimes having HS meal Assessment & Plan ASSESSMENT: 10/31/16 * Over the last 24 hours patient has received 93 units SQ insulin (while tolerating a diet) * Fasting BSG 91-105 this AM with 45 units Levemir on board - however must consider the patient did receive 14 units of Novolog at HS last night * Based upon a review of the last 3 days of insulin doses and diet, would expect the patient to require 80-90 units of insulin per day to achieve glycemic targets * Would like to adjust the basal insulin dose today so that patient receives 35- 40 units of basal insulin per day, less than currently ordered due to FBS less than 100 11/01/16 * Glycemic control has been acceptable over the last 24 hours, with the exception of one episode of mild hypoglycemia pre-dinner (BSG 69) * Over the last 24 hrs the patient received 63 units of insulin * Fasting BSG 163 this AM w/ 33 units basal on board - current Levemir dose will provide 36 units/day * Will reduce the prandial insulin dose slightly given the episode of pre- dinner hypoglycemia yesterday that was likely secondary to excess prandial insulin w/ lunch * Currently estimate patient to require ~80 units of insulin per day when consuming 3 meals/day 11/02/16 * Glycemic control remains acceptable; BSGs have ranged 115-199 over last 24 hrs ; no further episodes of hypoglycemia * Fasting BSG 149 this AM w/ 27 units of basal insulin on board (18units in AM + 9 units in PM secondary to BSG less than 120 at HS) * He has received 66 units of SQ insulin over last 24 hrs while consuming 3 meals of varying CHO content * BSGs may run a littler higher today with less basal insulin on board * Given current control w/ existing orders, will make no changes today. Total daily insulin requirement still likely to be ~70-80 units when eating well PLAN FOR INPATIENT GLYCEMIC CONTROL: * Continue Levemir 18 units SQ BID - give 1/2 dose (9 units) if BSG less than 120 * Continue correction factor of 12 mg/dl/unit * Continue carb ratio of 1 unit per 4 grams CHO consumed * Changing goal range to Low 120 mg/dL - High 150 mg/dL to allow for a buffer against hypoglycemia * Please note that the plan above was derived based on current level of insulin resistance and hospital stress. These recommendations are appropriate for inpatient admission only. Plan of care upon discharge will need to be reassessed to avoid potential outpatient hypo/hyperglycemia. Thank you.
[2016-11-02 16:09] VITALS: BP 106/59; PULSE 67; TEMP 36.2; O2SAT 96
--- NOTE | 2016-11-02 17:59 | Progress Note ---
Internal Med Progress Note Date of Service: Nov 02, 2016. Provider Documentation: SUBJECTIVE: resting comfortably says diarrhea is getting better afebrile denies any pain waiting to be placed OBJECTIVE: Vital Signs-as noted below Exam: General-alert and awake and oriented. Not in distress ENT-normal hearing Neck-no neck masses Lungs-cta b/l no wheezing or crackles Heart-s1 and s2 heard, regular rate and rhythm no murmurs Abdomen-soft bowel sounds present non tender no distension Extremities-no edema no erythema s/p Right index finger amputation. Multiple toe amputations and left AKA Neuro-alert and awake moves extremities Lab data as noted below. ASSESSMENT & PLAN: Presented with Severe sepsis Most likely from the necrotic, gangrenous middle right finger Orthopedics was consulted s/p right middle finger amputation and I&D of hand on 10/24 ID on board Received Zosyn, daptomycin and clindamycin (for 48hrs for potential antitoxin agents) Zosyn change to Bactrim (on 10/31/16) for another 2 weeks as per ID blood cultures from 10/23 with MSSA repeat blood cultures from 10/24 negative wound cultures growing providencia, staphylococcus, streptococcus pt/ot plan for rehab soon stable Diarrhea Cdiff negative loperamide PRN improving will monitor Acute respiratory failure secondary to metabolic encephalopathy intubated 10/23 - 10/26 s/p extubation stable Acute renal failure possibly related to sepsis baseline creatinine is around 1.3-1.4 cr 1.6 today continue holding losartan received hydration will f/u labs History of nonischemic cardiomyopathy ejection fraction around 15-20% On aspirin, atorvastatin, metoprolol, ISMN, furosemide holding losartan and metolazone until renal function returns to baseline stable Elevation troponin likely due to demand ischemia from sepsis and ARF TTE showing no change from previous stable Type 2 DM hba1c 9.6 On insulin glycemic pharmacy consulted will monitor. Hypothyroidism On Synthroid DVT prophylaxis with heparin sq PT recommending discharge to rehab vs SNF. Referral to [facility];await insurance authorization. Vital Signs: Date Time Temp Pulse Resp B/P Pulse Ox O2 Delivery O2 Flow Rate FiO2 11/02/16 16:09 36.2 67 17 106/59 96 Room Air 11/02/16 08:30 Room Air 11/02/16 07:35 36.4 62 16 115/64 97 Room Air 11/01/16 23:40 36.4 59 18 114/75 97 Room Air 11/01/16 20:48 63 132/78 11/01/16 20:30 Room Air Lab Results: Results Past 24 Hours Test 11/01/16 20:46 11/02/16 07:58 11/02/16 11:12 11/02/16 17:20 Range/Units Bedside Glucose 115 149 199 198 70-99 mg/dl
--- NOTE | 2016-11-02 20:01 | Infectious Disease Progress Nt ---
Progress Note Date of Service Nov 02, 2016. Subjective Pt evaluation today including: conversation w/ patient, physical exam, chart review, lab review, review of studies, conversation w/ process consultant, review of inpatient medication list feeling better now offers no new complaints today. Remains afebrile. Continues to tolerate antibiotics. All Other Systems: Reviewed and Negative Medications Current Inpatient Medications Medications (Trade) Dose Ordered Sig/Ifeanyi Route Start Time Stop Time Status Last Admin Dose Admin Lactobacillus Acidophilus (Floranex Tab) 1 tab TID PO 10/23/16 14:00 11/22/16 13:59 11/02/16 13:23 1 TAB Sertraline HCl (Zoloft Tab) 100 mg DAILY PO 10/24/16 09:00 11/23/16 08:59 11/02/16 08:36 100 MG Miscellaneous Information (Consult Glycemic Management Pharmacy) 1 ea UD PRN N/A 10/23/16 14:30 11/22/16 14:29 Heparin Sodium (Porcine) (Heparin Sq 5000 Unit/0.5ml) 5,000 unit Q8 SQ 10/23/16 14:00 11/22/16 13:59 11/02/16 13:22 5,000 UNIT Multi-Ingredient Ointment (Eucerin Unscented Cr) 1 appln BID EXT 10/24/16 21:00 11/23/16 20:59 11/02/16 08:36 1 APPLN Aspirin (Aspirin Chew) 81 mg DAILY PO 10/26/16 09:00 11/25/16 08:59 11/02/16 08:44 81 MG Levothyroxine Sodium (Synthroid Tab) 50 mcg DAILYBB PO 10/25/16 11:00 11/24/16 10:59 11/02/16 05:51 50 MCG Docusate Sodium (coLACE SYRUP) 100 mg BID PO 10/25/16 21:00 11/24/16 20:59 Future Hold 10/29/16 08:09 100 MG Labetalol HCl (Normodyne IV) 20 mg Q1H PRN IV 10/26/16 18:45 11/25/16 18:44 10/27/16 21:49 20 MG Hydralazine HCl (HydrALAZINE INJ) 10 mg Q4H PRN IV. 10/26/16 18:45 11/25/16 18:44 Bisacodyl (Dulcolax Supp) 10 mg DAILY PRN [place] 10/27/16 11:30 11/26/16 11:29 Atorvastatin Calcium (Lipitor Tab) 80 mg DAILY PO 10/29/16 09:00 11/28/16 08:59 11/02/16 08:37 80 MG Furosemide (Lasix Tab) 80 mg BID17 PO 10/28/16 17:00 11/27/16 16:59 Future hold 11/02/16 18:29 80 MG Isosorbide Mononitrate (Imdur Ext Rel Tab) 15 mg DAILY PO 10/29/16 09:00 11/28/16 08:59 11/02/16 08:37 15 MG Metoprolol Succinate (Toprol Xl Tab) 25 mg BID PO 10/28/16 21:00 11/27/16 20:59 11/02/16 08:38 25 MG Acetaminophen (Tylenol Tab) 650 mg Q4H PRN PO 10/28/16 16:00 11/27/16 15:59 Insulin Aspart (novoLOG ASPART) SLIDING SCALE G... ACHS SC 10/28/16 21:00 11/27/16 20:59 11/02/16 18:42 11 UNITS Potassium Chloride (Klor-Con Tab) 20 meq BID PO 10/29/16 09:00 11/28/16 08:59 11/02/16 08:36 20 MEQ Loperamide HCl (Imodium Cap) 2 mg Q4 PRN PO 10/29/16 21:15 11/28/16 21:14 Insulin Detemir (Levemir Flexpen/ FlexTouch) 9 units if BSG less than ... BID SC 10/31/16 21:00 11/30/16 20:59 11/02/16 08:44 18 UNIT Trimethoprim/ Sulfamethoxazole (Septra Ds 800/ 160MG Tab) 1 tab Q12 PO 10/31/16 21:00 11/14/16 20:59 11/02/16 08:37 1 TAB Calcium Carbonate (Tums Chew Tab) 1,000 mg Q4H PRN PO 11/01/16 23:45 12/01/16 23:44 11/02/16 16:00 1,000 MG Objective Vital Signs Date Time Temp Pulse Resp B/P Pulse Ox O2 Delivery O2 Flow Rate FiO2 11/02/16 16:09 36.2 67 17 106/59 96 Room Air 11/02/16 08:30 Room Air 11/02/16 07:35 36.4 62 16 115/64 97 Room Air 11/01/16 23:40 36.4 59 18 114/75 97 Room Air 11/01/16 20:48 63 132/78 11/01/16 20:30 Room Air Physical Exam General Appearance: WD/WN, no apparent distress Eyes: normal inspection, sclerae normal ENT: normal ENT inspection, pharynx normal Neck: supple, no adenopathy, trachea midline Respiratory/Chest: chest non-tender, lungs clear, normal breath sounds, no respiratory distress Cardiovascular: regular rate, rhythm, no gallop, no murmur Abdomen: normal bowel sounds, non tender, soft, no organomegaly Extremities: non-tender, no calf tenderness Neurologic/Psychiatric: alert, oriented x 3 Skin: normal color, no rash, + pertinent finding ( Surgical site healing) Laboratory Results Last 24 Hours Test 11/01/16 20:46 11/02/16 07:58 11/02/16 11:12 11/02/16 17:20 Bedside Glucose 115 mg/dl 149 mg/dl 199 mg/dl 198 mg/dl Assessment and Plan (1) Severe sepsis Status: Acute Secondary to gangrenous right upper extremity finger POD #4 right third digit amputation of hand Clindamycin and daptomycin held per infectious disease Continue Zosyn Blood cultures growing methicillin sensitive Staph aureus Wound cultures growing Staph aureus, strep, Providencia, Gram-negative bacilli Course of treatment per infectious disease Continue isolation for history of positive MRSA screen in the nares 09/07/15 (2) Septic shock Status: Acute Now hemodynamically stable Continues with fever - Tmax 38.3 Plan on extubation today WBC 10.33 today Lactic acid normal Continue Zosyn per infectious disease (see above) (3) Acute encephalopathy Patient is off sedation for mechanical ventilation Anticipate extubation later today Renal function improving Most likely due to severe sepsis Status post amputation of finger with gangrene Continue antibiotic treatment CT head 10/25/16 negative for acute findings Continue to monitor (4) Elevated troponin I measurement Most likely leak from severe sepsis No ST changes on EKG History of ischemic cardiomyopathy Left ventricular ejection fraction 15-20% Severe global hypokinesis of the left ventricle Left ventricle is severely dilated No evidence of aortic stenosis (5) PATRICIA (acute kidney injury) Improving Creatinine down to 1.9 from 2.2 BUN continues to be elevated 2.3 L ahead for fluid status since admission Continue to monitor serial labs IV fluids held for pulmonary edema Currently requiring diuresis with twice a day furosemide Continue strict I's and O's (6) Necrotic wound of right hand Status: Acute Status post right middle finger amputation with Dr. Henriquez Ortho continues to follow (7) CHF (congestive heart failure) Status: Chronic IV fluids held Patient receiving diuresis twice daily Left ventricular ejection fraction 15-20% Continue to monitor on telemetry Continue strict I's and O's (8) DM type 2 (diabetes mellitus, type 2) Status: Chronic Patient on glyburide and Novolin R at home Hemoglobin A1c 9.6 Continue sliding scale insulin Levemir held Pharmacy consult for glycemic management Continue close monitoring (9) Hypothyroidism Status: Chronic Continue levothyroxine (10) Biventricular ICD (implantable cardioverter-defibrillator) in place Status: Chronic EKG representing pacer spikes Patient be monitored on telemetry (11) CAD (coronary artery disease) Status: Chronic Atorvastatin, imdur, Cozaar, Toprol-XL at home Antihypertensives held secondary to hypotension due to septic shock Resume PO meds as able once patient is extubated (12) History of MRSA infection Status: Chronic Wound cultures with MSSA Positive MRSA screening in [facility] 09/07/15 Continue isolation protocol Discussed with infection control (13) DVT prophylaxis Heparin subcutaneous Sepsis with septic shock, with methicillin sensitive Staph aureus , secondary to gangrenous right third finger infection now s/p amputation in patient with diabetes and multiple other co-morbidities. Given infected digit has been amputated, should be able to transition to oral Abx. Have recommended Bactrim D. S. Will follow.
[2016-11-02 20:33] VITALS: BP 118/63; PULSE 64; O2SAT 96
[2016-11-02] MEDS ORDERED: PANTOprazole SOD 40 MG TAB PO ONE (23:19)
[2016-11-03 00:01] LABS: PARTIAL THROMBOPLASTIN RATIO 1.2
[2016-11-03 00:21] VITALS: BP 136/76; PULSE 57; TEMP 36.3; O2SAT 96
[2016-11-03] MEDS: LEVOTHYROXINE 50 MCG TAB PO SCH (05:23)
[2016-11-03] MEDS: HEPARIN SOD 5000 UNIT/0.5 ML CARP SQ SCH ×3 (05:24→21:33)
[2016-11-03 06:55] LABS: BASO % 0.6 %; BASO ABS # 0.06 K/uL (0-0.2); COMPLETE YES; EOS % 1.9 %; HEMATOCRIT 36.2 % (42-52); IG% 1.6 %; LYMPH % 18.1 %; LYMPH ABS # 1.86 K/uL (1.2-3.4); MEAN CORPUSCULAR HEMOGLOBIN 29.7 pg (25-34); MEAN CORPUSCULAR HGB CONC 34.5 g/dl (32-36); MEAN PLATELET VOLUME 9.5 fL (7.4-10.4); MONO % 5.6 %; NEUT % 72.2 %; PLATELET COUNT 351 K/uL (130-400); RED BLOOD COUNT 4.21 M/uL (4.7-6.1); WHITE BLOOD COUNT 10.25 K/uL (4.8-10.8)
[2016-11-03 07:31] LABS: BLOOD UREA NITROGEN 38 mg/dl (7-18); CALCIUM 9.5 mg/dl (8.5-10.1); CARBON DIOXIDE 24 mmol/L (21-32); CHLORIDE 103 mmol/L (98-107); GLUCOSE 135 mg/dl (70-99); SODIUM 138 mmol/L (136-145)
[2016-11-03 08:03] VITALS: BP 144/85; PULSE 60; TEMP 36.9; O2SAT 99
[2016-11-03 09:14] LABS: POTASSIUM 4.4 mmol/L (3.5-5.1)
[2016-11-03 09:24] LABS: MAGNESIUM 2.3 mg/dl (1.8-2.4)
[2016-11-03 09:40] VITALS: BP 140/78; PULSE 65
[2016-11-03] MEDS: ATORVASTATIN 40 MG TAB PO SCH (09:43)
[2016-11-03] MEDS: PANTOprazole SOD 40 MG TAB PO SCH (09:43)
[2016-11-03] MEDS: SERTRALINE HCL 100 MG TAB PO SCH (09:43)
[2016-11-03] MEDS: SULFAMETHOXAZOLE/TRIMETHOPRIM DS 800/160MG TAB PO SCH ×2 (09:44→21:36)
[2016-11-03] MEDS: LACTOBACILLUS ACIDOPHILUS (FLORANEX) TAB PO SCH ×3 (09:44→21:36)
[2016-11-03] MEDS: FUROSEMIDE 80 MG TAB PO SCH (09:44)
[2016-11-03] MEDS: METOPROLOL SUCC 25MG EXT REL TAB PO SCH ×2 (09:44→21:37)
[2016-11-03] MEDS: POTASSIUM CHLORIDE 20 MEQ TABCR PO SCH ×2 (09:45→21:38)
[2016-11-03] MEDS: ISOSORBIDE MONONITRATE 30 MG TABCR PO SCH (09:45)
[2016-11-03] MEDS: EUCERIN CR 120 GM JAR EXT SCH ×2 (09:46→21:36)
[2016-11-03] MEDS: INSULIN ASPART 100 UNITS/ML 3 ML PEN SC SCH ×4 (09:57→21:31)
[2016-11-03] MEDS: INSULIN DETEMIR FLEXPEN/FLEX TOUCH 100 UNITS/ML 3ML SC SCH ×2 (09:58→21:32)
[2016-11-03] MEDS: ASPIRIN 81 MG CHEW PO SCH (09:58)
--- NOTE | 2016-11-03 10:31 | Pharmacy Progress Note ---
Glycemic Control: Progress Nt Date of Service Nov 03, 2016. Scope Glycemic Pharmacist consulted by Dr Aviles on 10/23/16 for glycemic control and to write orders per [facility] inpatient glycemic control protocol. Objective Accuchecks BSG (last 24hrs): Test 11/02/16 11:12 11/02/16 17:20 11/02/16 20:44 11/03/16 06:20 Bedside Glucose 199 mg/dl (70-99) 198 mg/dl (70-99) 157 mg/dl (70-99) Random Glucose 135 mg/dl (70-99) Test 11/03/16 07:51 Bedside Glucose 150 mg/dl (70-99) Laboratory Data (last 24hrs) Test 11/03/16 06:20 11/03/16 08:46 Anion Gap 11.0 mmol/L BUN/Creatinine Ratio 18.0 Blood Urea Nitrogen 38 mg/dl Creatinine 2.10 mg/dl Potassium Level mmol/L 4.4 mmol/L Sodium Level 138 mmol/L White Blood Count 10.25 K/uL Red Blood Count 4.21 M/uL Hemoglobin 12.5 g/dL Hematocrit 36.2 % Mean Corpuscular Volume 86.0 fL Mean Corpuscular Hemoglobin 29.7 pg Mean Corpuscular Hemoglobin Concent 34.5 g/dl Platelet Count 351 K/uL Mean Platelet Volume 9.5 fL Neutrophils (%) (Auto) 72.2 % Lymphocytes (%) (Auto) 18.1 % Monocytes (%) (Auto) 5.6 % Eosinophils (%) (Auto) 1.9 % Basophils (%) (Auto) 0.6 % Neutrophils # (Auto) 7.41 K/uL Lymphocytes # (Auto) 1.86 K/uL Monocytes # (Auto) 0.57 K/uL Eosinophils # (Auto) 0.19 K/uL Basophils # (Auto) 0.06 K/uL HbA1c: Test 10/24/16 04:34 Hemoglobin A1c 9.6 % (4.5-5.6) H Recent Pertinent Medications Outpatient Anti-diabetic Regimen: * Levemir 80 units SQ BID * Novolin R 3 units BID * Glyburide 5mg daily9.6 * A1c = 9.6 % 10/24/16 The patient is currently receiving: * Basal insulin: Levemir 18 units SQ BID; give 1/2 dose (9 units) if BSG less than 120 * Correctional Insulin: Novolog Correction per scale ACHS Goal Range: Low 120 mg/dL - High 150 mg/dL Correction Factor: 12 mg/dL/unit * Prandial insulin: Per carb ratio of 1 unit per 4 grams CHO consumed * Oral Agents: None currently Risk Factors for Insulin Resistance: * Infection: sepsis secondary to finger gangrene; transitioned to Bactrim PO * Recent Surgery: POD # 11 * Diet: ordered T2DM / AHA diet; tolerating PO intake however intake appears to be erratic, sometimes skipping meals Assessment & Plan ASSESSMENT: 10/31/16 * Over the last 24 hours patient has received 93 units SQ insulin (while tolerating a diet) * Fasting BSG 91-105 this AM with 45 units Levemir on board - however must consider the patient did receive 14 units of Novolog at HS last night * Based upon a review of the last 3 days of insulin doses and diet, would expect the patient to require 80-90 units of insulin per day to achieve glycemic targets * Would like to adjust the basal insulin dose today so that patient receives 35- 40 units of basal insulin per day, less than currently ordered due to FBS less than 100 11/01/16 * Glycemic control has been acceptable over the last 24 hours, with the exception of one episode of mild hypoglycemia pre-dinner (BSG 69) * Over the last 24 hrs the patient received 63 units of insulin * Fasting BSG 163 this AM w/ 33 units basal on board - current Levemir dose will provide 36 units/day * Will reduce the prandial insulin dose slightly given the episode of pre- dinner hypoglycemia yesterday that was likely secondary to excess prandial insulin w/ lunch * Currently estimate patient to require ~80 units of insulin per day when consuming 3 meals/day 11/02/16 * Glycemic control remains acceptable; BSGs have ranged 115-199 over last 24 hrs ; no further episodes of hypoglycemia * Fasting BSG 149 this AM w/ 27 units of basal insulin on board (18units in AM + 9 units in PM secondary to BSG less than 120 at HS) * He has received 66 units of SQ insulin over last 24 hrs while consuming 3 meals of varying CHO content * BSGs may run a littler higher today with less basal insulin on board * Given current control w/ existing orders, will make no changes today. Total daily insulin requirement still likely to be ~70-80 units when eating well 11/03/16 * BSGs ranged 135-199 over last 24 hrs - acceptable for this patient * Fasting BSG 135-150 this AM with 36 units basal on board * Over the last 24 hrs he received 71 units and consumed 3 meals * Plan to continue with current insulin orders as BSGs have begun to stabilize and I expect better BSGs today with the larger basal dose on board PLAN FOR INPATIENT GLYCEMIC CONTROL: * Continue Levemir 18 units SQ BID - give 1/2 dose (9 units) if BSG less than 120 * Continue correction factor of 12 mg/dl/unit * Continue carb ratio of 1 unit per 4 grams CHO consumed * Continue goal range of Low 120 mg/dL - High 150 mg/dL to allow for a buffer against hypoglycemia * Please note that the plan above was derived based on current level of insulin resistance and hospital stress. These recommendations are appropriate for inpatient admission only. Plan of care upon discharge will need to be reassessed to avoid potential outpatient hypo/hyperglycemia. Thank you.
[2016-11-03 15:47] VITALS: BP 120/70; PULSE 61; TEMP 36.8; O2SAT 97
--- NOTE | 2016-11-03 16:40 | Progress Note ---
Internal Med Progress Note Date of Service: Nov 03, 2016. Provider Documentation: SUBJECTIVE: says diarrhea is better saying not drinking water as thickened fluid not agreeing with him denies chest pain or sob afebrile OBJECTIVE: Vital Signs-as noted below Exam: General-alert and awake and oriented. Not in distress ENT-normal hearing Neck-no neck masses Lungs-cta b/l no wheezing or crackles Heart-s1 and s2 heard, regular rate and rhythm no murmurs Abdomen-soft bowel sounds present non tender no distension Extremities-no edema no erythema s/p Right index finger amputation. Multiple toe amputations and left AKA Neuro-alert and awake moves extremities Lab data as noted below. ASSESSMENT & PLAN: Presented with Severe sepsis Most likely from the necrotic, gangrenous middle right finger Orthopedics was consulted s/p right middle finger amputation and I&D of hand on 10/24 ID on board Received Zosyn, daptomycin and clindamycin (for 48hrs for potential antitoxin agents) Zosyn change to Bactrim (on 10/31/16) for another 2 weeks as per ID blood cultures from 10/23 with MSSA repeat blood cultures from 10/24 negative wound cultures growing providencia, staphylococcus, streptococcus pt/ot plan for rehab soon to continue Bactrim for 6 weeks and followup in wound clinic on discharge Diarrhea Cdiff negative loperamide PRN improving willl recheck for c diff will monitor Acute respiratory failure secondary to metabolic encephalopathy intubated 10/23 - 10/26 s/p extubation stable Acute renal failure possibly related to sepsis baseline creatinine is around 1.3-1.4 cr 2.1 today continue holding losartan not drinking water as thickened fluid not agreeing with him will hold lasix and give gentle fluids f/u labs in am History of nonischemic cardiomyopathy ejection fraction around 15-20% On aspirin, atorvastatin, metoprolol, ISMN, furosemide holding losartan, lasix and metolazone until renal function returns to baseline stable Dysphagia seen by speech and recommends mechanical soft and nectar thickened fluids not tolerating nectar thick liquids will d/w Speech Elevation troponin likely due to demand ischemia from sepsis and ARF TTE showing no change from previous stable Type 2 DM hba1c 9.6 On insulin glycemic pharmacy consulted will monitor. Hypothyroidism On Synthroid DVT prophylaxis with heparin sq Disposition plan for [facility] Vital Signs: Date Time Temp Pulse Resp B/P Pulse Ox O2 Delivery O2 Flow Rate FiO2 11/03/16 15:47 36.8 61 19 120/70 97 Room Air 11/03/16 09:40 65 140/78 11/03/16 08:03 36.9 60 16 144/85 99 Room Air 11/03/16 07:50 Room Air 11/03/16 00:21 36.3 57 16 136/76 96 Room Air 11/02/16 23:40 Room Air 11/02/16 21:42 Room Air 11/02/16 20:33 64 118/63 96 Room Air Lab Results: Results Past 24 Hours Test 11/02/16 17:20 11/02/16 20:44 11/02/16 23:40 11/03/16 06:20 Range/Units Bedside Glucose 198 157 70-99 mg/dl Activated Partial Thromboplast Time 30.6 21.0-31.0 SECONDS Partial Thromboplastin Ratio 1.2 Troponin I 0.030 0.020 0-0.045 ng/ml White Blood Count 10.25 4.8-10.8 K/uL Red Blood Count 4.21 4.7-6.1 M/uL Hemoglobin 12.5 14.0-18.0 g/dL Hematocrit 36.2 42-52 % Mean Corpuscular Volume 86.0 80-100 fL Mean Corpuscular Hemoglobin 29.7 25-34 pg Mean Corpuscular Hemoglobin Concent 34.5 32-36 g/dl Platelet Count 351 130-400 K/uL Mean Platelet Volume 9.5 7.4-10.4 fL Neutrophils (%) (Auto) 72.2 % Lymphocytes (%) (Auto) 18.1 % Monocytes (%) (Auto) 5.6 % Eosinophils (%) (Auto) 1.9 % Basophils (%) (Auto) 0.6 % Neutrophils # (Auto) 7.41 1.4-6.5 K/uL Lymphocytes # (Auto) 1.86 1.2-3.4 K/uL Monocytes # (Auto) 0.57 0.11-0.59 K/uL Eosinophils # (Auto) 0.19 0-0.5 K/uL Basophils # (Auto) 0.06 0-0.2 K/uL RDW Standard Deviation 44.8 36.4-46.3 fL RDW Coefficient of Variation 14.3 11.5-14.5 % Immature Granulocyte % (Auto) 1.6 % Immature Granulocyte # (Auto) 0.16 0.00-0.02 K/uL Sodium Level 138 136-145 mmol/L Potassium Level 3.5-5.1 mmol/L Chloride Level 103 98-107 mmol/L Carbon Dioxide Level 24 21-32 mmol/L Anion Gap 11.0 3-11 mmol/L Blood Urea Nitrogen 38 7-18 mg/dl Creatinine 2.10 0.60-1.40 mg/dl Est Creatinine Clear Calc Drug Dose 44.7 ml/min Estimated GFR () 37.2 Estimated GFR (Non- 32.1 BUN/Creatinine Ratio 18.0 10-20 Random Glucose 135 70-99 mg/dl Calcium Level 9.5 8.5-10.1 mg/dl Magnesium Level 1.8-2.4 mg/dl Test 11/03/16 07:51 11/03/16 08:46 11/03/16 11:55 Range/Units Bedside Glucose 150 166 70-99 mg/dl Potassium Level 4.4 3.5-5.1 mmol/L Magnesium Level 2.3 1.8-2.4 mg/dl
[2016-11-03] MEDS: SODIUM CHLORIDE 0.9% 1000ML 1,000 ML IV SCH (17:30)
[2016-11-03] MEDS: CALCIUM CARBONATE 500 MG CHEWABLE PO PRN (17:30)
--- NOTE | 2016-11-03 17:40 | Infectious Disease Progress Nt ---
Progress Note Date of Service Nov 03, 2016. Subjective Pt evaluation today including: conversation w/ patient, physical exam, chart review, lab review, review of studies, conversation w/ knowledge management consultant, review of inpatient medication list Patient offers no new complaints today. Remains afebrile. Continues to tolerate antibiotic without apparent difficulty. All Other Systems: Reviewed and Negative Medications Current Inpatient Medications Medications (Trade) Dose Ordered Sig/Ifeanyi Route Start Time Stop Time Status Last Admin Dose Admin Lactobacillus Acidophilus (Floranex Tab) 1 tab TID PO 10/23/16 14:00 11/22/16 13:59 11/03/16 13:37 1 TAB Sertraline HCl (Zoloft Tab) 100 mg DAILY PO 10/24/16 09:00 11/23/16 08:59 11/03/16 09:43 100 MG Miscellaneous Information (Consult Glycemic Management Pharmacy) 1 ea UD PRN N/A 10/23/16 14:30 11/22/16 14:29 Heparin Sodium (Porcine) (Heparin Sq 5000 Unit/0.5ml) 5,000 unit Q8 SQ 10/23/16 14:00 11/22/16 13:59 11/03/16 13:46 5,000 UNIT Multi-Ingredient Ointment (Eucerin Unscented Cr) 1 appln BID EXT 10/24/16 21:00 11/23/16 20:59 11/03/16 09:46 1 APPLN Aspirin (Aspirin Chew) 81 mg DAILY PO 10/26/16 09:00 11/25/16 08:59 11/03/16 09:58 81 MG Levothyroxine Sodium (Synthroid Tab) 50 mcg DAILYBB PO 10/25/16 11:00 11/24/16 10:59 11/03/16 05:23 50 MCG Docusate Sodium (coLACE SYRUP) 100 mg BID PO 10/25/16 21:00 11/24/16 20:59 Future Hold 10/29/16 08:09 100 MG Labetalol HCl (Normodyne IV) 20 mg Q1H PRN IV 10/26/16 18:45 11/25/16 18:44 10/27/16 21:49 20 MG Hydralazine HCl (HydrALAZINE INJ) 10 mg Q4H PRN IV. 10/26/16 18:45 11/25/16 18:44 Bisacodyl (Dulcolax Supp) 10 mg DAILY PRN LA 10/27/16 11:30 11/26/16 11:29 Atorvastatin Calcium (Lipitor Tab) 80 mg DAILY PO 10/29/16 09:00 11/28/16 08:59 11/03/16 09:43 80 MG Furosemide (Lasix Tab) 80 mg BID17 PO 10/28/16 17:00 11/27/16 16:59 Future Hold 11/03/16 09:44 80 MG Isosorbide Mononitrate (Imdur Ext Rel Tab) 15 mg DAILY PO 10/29/16 09:00 11/28/16 08:59 11/03/16 09:45 15 MG Metoprolol Succinate (Toprol Xl Tab) 25 mg BID PO 10/28/16 21:00 11/27/16 20:59 11/03/16 09:44 25 MG Acetaminophen (Tylenol Tab) 650 mg Q4H PRN PO 10/28/16 16:00 11/27/16 15:59 Insulin Aspart (novoLOG ASPART) SLIDING SCALE G... ACHS SC 10/28/16 21:00 11/27/16 20:59 11/03/16 13:45 10 UNITS Potassium Chloride (Klor-Con Tab) 20 meq BID PO 10/29/16 09:00 11/28/16 08:59 11/03/16 09:45 20 MEQ Loperamide HCl (Imodium Cap) 2 mg Q4 PRN PO 10/29/16 21:15 11/28/16 21:14 Insulin Detemir (Levemir Flexpen/ FlexTouch) 9 units if BSG less than ... BID SC 10/31/16 21:00 11/30/16 20:59 11/03/16 09:58 18 UNIT Trimethoprim/ Sulfamethoxazole (Septra Ds 800/ 160MG Tab) 1 tab Q12 PO 10/31/16 21:00 11/14/16 20:59 11/03/16 09:44 1 TAB Calcium Carbonate (Tums Chew Tab) 1,000 mg Q4H PRN PO 11/01/16 23:45 12/01/16 23:44 11/03/16 17:30 1,000 MG Pantoprazole Sodium 40 mg 40 mg QAM PO 11/03/16 09:00 12/03/16 08:59 11/03/16 09:43 40 MG Sodium Chloride (Nss 1000ml) 1,000 ml @ 50 mls/hr Q20H IV 11/03/16 15:30 12/03/16 15:29 11/03/16 17:30 50 MLS/HR Objective Vital Signs Date Time Temp Pulse Resp B/P Pulse Ox O2 Delivery O2 Flow Rate FiO2 11/03/16 15:47 36.8 61 19 120/70 97 Room Air 11/03/16 09:40 65 140/78 11/03/16 08:03 36.9 60 16 144/85 99 Room Air 11/03/16 07:50 Room Air 11/03/16 00:21 36.3 57 16 136/76 96 Room Air 11/02/16 23:40 Room Air 11/02/16 21:42 Room Air 11/02/16 20:33 64 118/63 96 Room Air Physical Exam General Appearance: WD/WN, no apparent distress Eyes: normal inspection, sclerae normal ENT: normal ENT inspection, pharynx normal Neck: supple, no adenopathy, trachea midline Respiratory/Chest: chest non-tender, lungs clear, normal breath sounds, no respiratory distress Cardiovascular: regular rate, rhythm, no gallop, no murmur Abdomen: normal bowel sounds, non tender, soft, no organomegaly Extremities: non-tender, no calf tenderness Neurologic/Psychiatric: alert, oriented x 3 Skin: normal color, + rash, + pertinent finding ( Surgical site clean) Lymphatic: no adenopathy Laboratory Results Last 24 Hours Test 11/02/16 20:44 11/02/16 23:40 11/03/16 06:20 11/03/16 07:51 Bedside Glucose 157 mg/dl 150 mg/dl Activated Partial Thromboplast Time 30.6 SECONDS Partial Thromboplastin Ratio 1.2 Troponin I 0.030 ng/ml 0.020 ng/ml White Blood Count 10.25 K/uL Red Blood Count 4.21 M/uL Hemoglobin 12.5 g/dL Hematocrit 36.2 % Mean Corpuscular Volume 86.0 fL Mean Corpuscular Hemoglobin 29.7 pg Mean Corpuscular Hemoglobin Concent 34.5 g/dl Platelet Count 351 K/uL Mean Platelet Volume 9.5 fL Neutrophils (%) (Auto) 72.2 % Lymphocytes (%) (Auto) 18.1 % Monocytes (%) (Auto) 5.6 % Eosinophils (%) (Auto) 1.9 % Basophils (%) (Auto) 0.6 % Neutrophils # (Auto) 7.41 K/uL Lymphocytes # (Auto) 1.86 K/uL Monocytes # (Auto) 0.57 K/uL Eosinophils # (Auto) 0.19 K/uL Basophils # (Auto) 0.06 K/uL RDW Standard Deviation 44.8 fL RDW Coefficient of Variation 14.3 % Immature Granulocyte % (Auto) 1.6 % Immature Granulocyte # (Auto) 0.16 K/uL Sodium Level 138 mmol/L Potassium Level mmol/L Chloride Level 103 mmol/L Carbon Dioxide Level 24 mmol/L Anion Gap 11.0 mmol/L Blood Urea Nitrogen 38 mg/dl Creatinine 2.10 mg/dl Est Creatinine Clear Calc Drug Dose 44.7 ml/min Estimated GFR () 37.2 Estimated GFR (Non- 32.1 BUN/Creatinine Ratio 18.0 Random Glucose 135 mg/dl Calcium Level 9.5 mg/dl Magnesium Level mg/dl Test 11/03/16 08:46 11/03/16 11:55 11/03/16 17:28 Potassium Level 4.4 mmol/L Magnesium Level 2.3 mg/dl Bedside Glucose 166 mg/dl 165 mg/dl Assessment and Plan (1) Severe sepsis Status: Acute Secondary to gangrenous right upper extremity finger POD #4 right third digit amputation of hand Clindamycin and daptomycin held per infectious disease Continue Zosyn Blood cultures growing methicillin sensitive Staph aureus Wound cultures growing Staph aureus, strep, Providencia, Gram-negative bacilli Course of treatment per infectious disease Continue isolation for history of positive MRSA screen in the nares 09/07/15 (2) Septic shock Status: Acute Now hemodynamically stable Continues with fever - Tmax 38.3 Plan on extubation today WBC 10.33 today Lactic acid normal Continue Zosyn per infectious disease (see above) (3) Acute encephalopathy Patient is off sedation for mechanical ventilation Anticipate extubation later today Renal function improving Most likely due to severe sepsis Status post amputation of finger with gangrene Continue antibiotic treatment CT head 10/25/16 negative for acute findings Continue to monitor (4) Elevated troponin I measurement Most likely leak from severe sepsis No ST changes on EKG History of ischemic cardiomyopathy Left ventricular ejection fraction 15-20% Severe global hypokinesis of the left ventricle Left ventricle is severely dilated No evidence of aortic stenosis (5) PATRICIA (acute kidney injury) Improving Creatinine down to 1.9 from 2.2 BUN continues to be elevated 2.3 L ahead for fluid status since admission Continue to monitor serial labs IV fluids held for pulmonary edema Currently requiring diuresis with twice a day furosemide Continue strict I's and O's (6) Necrotic wound of right hand Status: Acute Status post right middle finger amputation with Dr. Henriquez Ortho continues to follow (7) CHF (congestive heart failure) Status: Chronic IV fluids held Patient receiving diuresis twice daily Left ventricular ejection fraction 15-20% Continue to monitor on telemetry Continue strict I's and O's (8) DM type 2 (diabetes mellitus, type 2) Status: Chronic Patient on glyburide and Novolin R at home Hemoglobin A1c 9.6 Continue sliding scale insulin Levemir held Pharmacy consult for glycemic management Continue close monitoring (9) Hypothyroidism Status: Chronic Continue levothyroxine (10) Biventricular ICD (implantable cardioverter-defibrillator) in place Status: Chronic EKG representing pacer spikes Patient be monitored on telemetry (11) CAD (coronary artery disease) Status: Chronic Atorvastatin, imdur, Cozaar, Toprol-XL at home Antihypertensives held secondary to hypotension due to septic shock Resume PO meds as able once patient is extubated (12) History of MRSA infection Status: Chronic Wound cultures with MSSA Positive MRSA screening in nares 09/07/15 Continue isolation protocol Discussed with infection control (13) DVT prophylaxis Heparin subcutaneous Sepsis with septic shock, with methicillin sensitive Staph aureus , secondary to gangrenous right third finger infection now s/p amputation in patient with diabetes and multiple other co-morbidities. Given infected digit has been amputated, should be able to transition to oral Abx. Have recommended Bactrim D. S. Will follow.
[2016-11-03 23:15] VITALS: BP 122/69; PULSE 57; TEMP 36.6; O2SAT 97
[2016-11-04] MEDS: CALCIUM CARBONATE 500 MG CHEWABLE PO PRN ×2 (01:59→06:14)
[2016-11-04] MEDS: LEVOTHYROXINE 50 MCG TAB PO SCH (06:14)
[2016-11-04] MEDS: HEPARIN SOD 5000 UNIT/0.5 ML CARP SQ SCH ×3 (06:14→21:40)
[2016-11-04 07:44] VITALS: BP 151/87; PULSE 57; TEMP 36.5; O2SAT 97
[2016-11-04] MEDS: EUCERIN CR 120 GM JAR EXT SCH ×2 (08:07→21:45)
[2016-11-04] MEDS: LACTOBACILLUS ACIDOPHILUS (FLORANEX) TAB PO SCH ×3 (08:46→21:38)
[2016-11-04] MEDS: ISOSORBIDE MONONITRATE 30 MG TABCR PO SCH (08:48)
[2016-11-04 08:50] VITALS: BP 160/82; PULSE 65
[2016-11-04] MEDS: ATORVASTATIN 40 MG TAB PO SCH (08:50)
[2016-11-04] MEDS: POTASSIUM CHLORIDE 20 MEQ TABCR PO SCH ×2 (08:52→21:34)
[2016-11-04] MEDS: PANTOprazole SOD 40 MG TAB PO SCH (08:53)
[2016-11-04] MEDS: SULFAMETHOXAZOLE/TRIMETHOPRIM DS 800/160MG TAB PO SCH ×2 (08:54→21:34)
[2016-11-04] MEDS: METOPROLOL SUCC 25MG EXT REL TAB PO SCH ×2 (09:01→21:38)
[2016-11-04] MEDS: SERTRALINE HCL 100 MG TAB PO SCH (09:02)
[2016-11-04 09:28] VITALS: O2SAT 97
[2016-11-04 09:29] LABS: BASO % 0.6 %; BASO ABS # 0.06 K/uL (0-0.2); COMPLETE YES; EOS % 1.9 %; HEMATOCRIT 39.2 % (42-52); IG% 1.3 %; LYMPH % 23.2 %; MEAN CELL VOLUME 86.3 fL (80-100); MEAN CORPUSCULAR HEMOGLOBIN 30.2 pg (25-34); MEAN CORPUSCULAR HGB CONC 34.9 g/dl (32-36); MEAN PLATELET VOLUME 9.6 fL (7.4-10.4); MONO % 6.9 %; NEUT % 66.1 %; PLATELET COUNT 383 K/uL (130-400); RED BLOOD COUNT 4.54 M/uL (4.7-6.1)
[2016-11-04] MEDS: ASPIRIN 81 MG CHEW PO SCH (09:42)
[2016-11-04] MEDS: INSULIN ASPART 100 UNITS/ML 3 ML PEN SC SCH ×4 (09:52→21:41)
[2016-11-04] MEDS: INSULIN DETEMIR FLEXPEN/FLEX TOUCH 100 UNITS/ML 3ML SC SCH ×2 (09:54→21:44)
[2016-11-04 10:03] LABS: BUN/CREATININE RATIO 17.5 (10-20); CALCIUM 10.1 mg/dl (8.5-10.1); CREATININE 2.3 mg/dl (0.60-1.40); MAGNESIUM 2.3 mg/dl (1.8-2.4); POTASSIUM 4.7 mmol/L (3.5-5.1)
--- NOTE | 2016-11-04 11:53 | Pharmacy Progress Note ---
Glycemic Control: Progress Nt Date of Service Nov 04, 2016. Scope Glycemic Pharmacist consulted by Dr Aviles on 10/23/16 for glycemic control and to write orders per [facility] inpatient glycemic control protocol. Objective Accuchecks BSG (last 24hrs): Test 11/03/16 11:55 11/03/16 17:28 11/03/16 21:15 11/04/16 07:40 Bedside Glucose 166 mg/dl (70-99) 165 mg/dl (70-99) 206 mg/dl (70-99) 174 mg/dl (70-99) Test 11/04/16 09:22 Random Glucose 224 mg/dl (70-99) Laboratory Data (last 24hrs) Test 11/04/16 09:22 Anion Gap 8.0 mmol/L BUN/Creatinine Ratio 17.5 Blood Urea Nitrogen 40 mg/dl Creatinine 2.30 mg/dl Potassium Level 4.7 mmol/L Sodium Level 138 mmol/L White Blood Count 9.90 K/uL Red Blood Count 4.54 M/uL Hemoglobin 13.7 g/dL Hematocrit 39.2 % Mean Corpuscular Volume 86.3 fL Mean Corpuscular Hemoglobin 30.2 pg Mean Corpuscular Hemoglobin Concent 34.9 g/dl Platelet Count 383 K/uL Mean Platelet Volume 9.6 fL Neutrophils (%) (Auto) 66.1 % Lymphocytes (%) (Auto) 23.2 % Monocytes (%) (Auto) 6.9 % Eosinophils (%) (Auto) 1.9 % Basophils (%) (Auto) 0.6 % Neutrophils # (Auto) 6.54 K/uL Lymphocytes # (Auto) 2.30 K/uL Monocytes # (Auto) 0.68 K/uL Eosinophils # (Auto) 0.19 K/uL Basophils # (Auto) 0.06 K/uL HbA1c: Test 10/24/16 04:34 Hemoglobin A1c 9.6 % (4.5-5.6) H Recent Pertinent Medications Outpatient Anti-diabetic Regimen: * Levemir 80 units SQ BID * Novolin R 3 units BID * Glyburide 5mg daily9.6 * A1c = 9.6 % 10/24/16 The patient is currently receiving: * Basal insulin: Levemir 18 units SQ BID; give 1/2 dose (9 units) if BSG less than 120 * Correctional Insulin: Novolog Correction per scale ACHS Goal Range: Low 120 mg/dL - High 150 mg/dL Correction Factor: 12 mg/dL/unit * Prandial insulin: Per carb ratio of 1 unit per 4 grams CHO consumed * Oral Agents: None currently Risk Factors for Insulin Resistance: * Infection: sepsis secondary to finger gangrene; transitioned to Bactrim PO * Recent Surgery: POD # 12 * Diet: ordered T2DM / AHA diet; tolerating diet well Assessment & Plan ASSESSMENT: 10/31/16 * Over the last 24 hours patient has received 93 units SQ insulin (while tolerating a diet) * Fasting BSG 91-105 this AM with 45 units Levemir on board - however must consider the patient did receive 14 units of Novolog at HS last night * Based upon a review of the last 3 days of insulin doses and diet, would expect the patient to require 80-90 units of insulin per day to achieve glycemic targets * Would like to adjust the basal insulin dose today so that patient receives 35- 40 units of basal insulin per day, less than currently ordered due to FBS less than 100 11/01/16 * Glycemic control has been acceptable over the last 24 hours, with the exception of one episode of mild hypoglycemia pre-dinner (BSG 69) * Over the last 24 hrs the patient received 63 units of insulin * Fasting BSG 163 this AM w/ 33 units basal on board - current Levemir dose will provide 36 units/day * Will reduce the prandial insulin dose slightly given the episode of pre- dinner hypoglycemia yesterday that was likely secondary to excess prandial insulin w/ lunch * Currently estimate patient to require ~80 units of insulin per day when consuming 3 meals/day 11/02/16 * Glycemic control remains acceptable; BSGs have ranged 115-199 over last 24 hrs ; no further episodes of hypoglycemia * Fasting BSG 149 this AM w/ 27 units of basal insulin on board (18units in AM + 9 units in PM secondary to BSG less than 120 at HS) * He has received 66 units of SQ insulin over last 24 hrs while consuming 3 meals of varying CHO content * BSGs may run a littler higher today with less basal insulin on board * Given current control w/ existing orders, will make no changes today. Total daily insulin requirement still likely to be ~70-80 units when eating well 11/03/16 * BSGs ranged 135-199 over last 24 hrs - acceptable for this patient * Fasting BSG 135-150 this AM with 36 units basal on board * Over the last 24 hrs he received 71 units and consumed 3 meals * Plan to continue with current insulin orders as BSGs have begun to stabilize and I expect better BSGs today with the larger basal dose on board 11/04/16 * BSGs have rangted 150-206 over the last 24 hrs, only 1 BSG above 180 - acceptable control overall * Fasting BSGs are starting to trend higher; will increase basal dose slightly * 2 of 3 post-prandial BSGs at goal yesterday w/ current Novolog doses - will continue same doses PLAN FOR INPATIENT GLYCEMIC CONTROL: * Increase Levemir to 20 units SQ BID - give 1/2 dose (10 units) if BSG less than 120 * Continue correction factor of 12 mg/dl/unit * Continue carb ratio of 1 unit per 4 grams CHO consumed * Change goal range to Low 110 mg/dL - High 140 mg/dL to allow for a buffer against hypoglycemia * Please note that the plan above was derived based on current level of insulin resistance and hospital stress. These recommendations are appropriate for inpatient admission only. Plan of care upon discharge will need to be reassessed to avoid potential outpatient hypo/hyperglycemia. Thank you.
[2016-11-04] MEDS: SODIUM CHLORIDE 0.9% 1000ML 1,000 ML IV SCH (12:20)
[2016-11-04 15:37] VITALS: BP 144/76; PULSE 64; TEMP 36.5; O2SAT 98
--- NOTE | 2016-11-04 18:11 | Progress Note ---
Internal Med Progress Note Date of Service: Nov 04, 2016. Provider Documentation: SUBJECTIVE: drinking water better has now using less thickening no sob no chest pain resting comfortably awaiting placement OBJECTIVE: Vital Signs-as noted below Exam: General-alert and awake and oriented. Not in distress ENT-normal hearing Neck-no neck masses Lungs-cta b/l no wheezing or crackles Heart-s1 and s2 heard, regular rate and rhythm no murmurs Abdomen-soft bowel sounds present non tender no distension Extremities-no edema no erythema s/p Right index finger amputation. Multiple toe amputations and left AKA Neuro-alert and awake moves extremities Lab data as noted below. ASSESSMENT & PLAN: Presented with Severe sepsis Most likely from the necrotic, gangrenous middle right finger Orthopedics was consulted s/p right middle finger amputation and I&D of hand on 10/24 ID on board Received Zosyn, daptomycin and clindamycin (for 48hrs for potential antitoxin agents) Zosyn change to Bactrim (on 10/31/16) for another 2 weeks as per ID blood cultures from 10/23 with MSSA repeat blood cultures from 10/24 negative wound cultures growing providencia, staphylococcus, streptococcus pt/ot plan for rehab soon to continue Bactrim for 6 weeks and followup in wound clinic on discharge stable Diarrhea Cdiff negative loperamide PRN improving recheck for c diff negative will monitor Acute respiratory failure secondary to metabolic encephalopathy intubated 10/23 - 10/26 s/p extubation stable Acute renal failure possibly related to sepsis baseline creatinine is around 1.3-1.4 cr 2.3 today continue holding losartan not drinking water as thickened fluid not agreeing with him will hold lasix and give gentle fluids f/u labs in am History of nonischemic cardiomyopathy ejection fraction around 15-20% On aspirin, atorvastatin, metoprolol, ISMN, furosemide holding losartan, lasix and metolazone until renal function returns to baseline stable Dysphagia seen by speech and recommends mechanical soft and nectar thickened fluids not tolerating nectar thick liquids d/w Speech-patient apparently using more than required thickening agent. Tolerating better after using less thickened fluids needs continued speech therapy Elevation troponin likely due to demand ischemia from sepsis and ARF TTE showing no change from previous stable Type 2 DM hba1c 9.6 On insulin glycemic pharmacy consulted 174/224/279/169 will monitor. Hypothyroidism On Synthroid DVT prophylaxis with heparin sq [facility] Vital Signs: Date Time Temp Pulse Resp B/P Pulse Ox O2 Delivery O2 Flow Rate FiO2 11/04/16 17:15 Room Air 11/04/16 15:37 36.5 64 17 144/76 98 Room Air 11/04/16 09:28 97 Room Air 11/04/16 08:50 65 160/82 11/04/16 08:33 Room Air 11/04/16 07:44 36.5 57 18 151/87 97 Room Air 11/03/16 23:55 Room Air 11/03/16 23:15 36.6 57 18 122/69 97 Room Air Lab Results: Results Past 24 Hours Test 11/03/16 21:15 11/04/16 07:40 11/04/16 09:22 11/04/16 12:02 Range/Units Bedside Glucose 206 174 279 70-99 mg/dl White Blood Count 9.90 4.8-10.8 K/uL Red Blood Count 4.54 4.7-6.1 M/uL Hemoglobin 13.7 14.0-18.0 g/dL Hematocrit 39.2 42-52 % Mean Corpuscular Volume 86.3 80-100 fL Mean Corpuscular Hemoglobin 30.2 25-34 pg Mean Corpuscular Hemoglobin Concent 34.9 32-36 g/dl Platelet Count 383 130-400 K/uL Mean Platelet Volume 9.6 7.4-10.4 fL Neutrophils (%) (Auto) 66.1 % Lymphocytes (%) (Auto) 23.2 % Monocytes (%) (Auto) 6.9 % Eosinophils (%) (Auto) 1.9 % Basophils (%) (Auto) 0.6 % Neutrophils # (Auto) 6.54 1.4-6.5 K/uL Lymphocytes # (Auto) 2.30 1.2-3.4 K/uL Monocytes # (Auto) 0.68 0.11-0.59 K/uL Eosinophils # (Auto) 0.19 0-0.5 K/uL Basophils # (Auto) 0.06 0-0.2 K/uL RDW Standard Deviation 44.8 36.4-46.3 fL RDW Coefficient of Variation 14.3 11.5-14.5 % Immature Granulocyte % (Auto) 1.3 % Immature Granulocyte # (Auto) 0.13 0.00-0.02 K/uL Sodium Level 138 136-145 mmol/L Potassium Level 4.7 3.5-5.1 mmol/L Chloride Level 102 98-107 mmol/L Carbon Dioxide Level 28 21-32 mmol/L Anion Gap 8.0 3-11 mmol/L Blood Urea Nitrogen 40 7-18 mg/dl Creatinine 2.30 0.60-1.40 mg/dl Est Creatinine Clear Calc Drug Dose 40.8 ml/min Estimated GFR () 33.3 Estimated GFR (Non- 28.7 BUN/Creatinine Ratio 17.5 10-20 Random Glucose 224 70-99 mg/dl Calcium Level 10.1 8.5-10.1 mg/dl Magnesium Level 2.3 1.8-2.4 mg/dl Test 11/04/16 17:00 Range/Units Bedside Glucose 161 70-99 mg/dl
--- NOTE | 2016-11-04 19:35 | Infectious Disease Progress Nt ---
Progress Note Date of Service Nov 04, 2016. Subjective Pt evaluation today including: conversation w/ patient, physical exam, chart review, lab review, review of studies, conversation w/ practice management consultant, review of inpatient medication list Patient offers no new complaints today. Remains afebrile. Continues to tolerate antibiotics. All Other Systems: Reviewed and Negative Medications Current Inpatient Medications Medications (Trade) Dose Ordered Sig/Ifeanyi Route Start Time Stop Time Status Last Admin Dose Admin Lactobacillus Acidophilus (Floranex Tab) 1 tab TID PO 10/23/16 14:00 11/22/16 13:59 11/04/16 14:04 1 TAB Sertraline HCl (Zoloft Tab) 100 mg DAILY PO 10/24/16 09:00 11/23/16 08:59 11/04/16 09:02 100 MG Miscellaneous Information (Consult Glycemic Management Pharmacy) 1 ea UD PRN N/A 10/23/16 14:30 11/22/16 14:29 Heparin Sodium (Porcine) (Heparin Sq 5000 Unit/0.5ml) 5,000 unit Q8 SQ 10/23/16 14:00 11/22/16 13:59 11/04/16 14:07 5,000 UNIT Multi-Ingredient Ointment (Eucerin Unscented Cr) 1 appln BID EXT 10/24/16 21:00 11/23/16 20:59 11/04/16 08:07 1 APPLN Aspirin (Aspirin Chew) 81 mg DAILY PO 10/26/16 09:00 11/25/16 08:59 11/04/16 09:42 81 MG Levothyroxine Sodium (Synthroid Tab) 50 mcg DAILYBB PO 10/25/16 11:00 11/24/16 10:59 11/04/16 06:14 50 MCG Docusate Sodium (coLACE SYRUP) 100 mg BID PO 10/25/16 21:00 11/24/16 20:59 Future Hold 10/29/16 08:09 100 MG Labetalol HCl (Normodyne IV) 20 mg Q1H PRN IV 10/26/16 18:45 11/25/16 18:44 10/27/16 21:49 20 MG Hydralazine HCl (HydrALAZINE INJ) 10 mg Q4H PRN IV. 10/26/16 18:45 11/25/16 18:44 Bisacodyl (Dulcolax Supp) 10 mg DAILY PRN [place] 10/27/16 11:30 11/26/16 11:29 Atorvastatin Calcium (Lipitor Tab) 80 mg DAILY PO 10/29/16 09:00 11/28/16 08:59 11/04/16 08:50 80 MG Furosemide (Lasix Tab) 80 mg BID17 PO 10/28/16 17:00 11/27/16 16:59 Future Hold 11/03/16 09:44 80 MG Isosorbide Mononitrate (Imdur Ext Rel Tab) 15 mg DAILY PO 10/29/16 09:00 11/28/16 08:59 11/04/16 08:48 15 MG Metoprolol Succinate (Toprol Xl Tab) 25 mg BID PO 10/28/16 21:00 11/27/16 20:59 11/04/16 09:01 25 MG Acetaminophen (Tylenol Tab) 650 mg Q4H PRN PO 10/28/16 16:00 11/27/16 15:59 Insulin Aspart (novoLOG ASPART) SLIDING SCALE G... ACHS SC 10/28/16 21:00 11/27/16 20:59 11/04/16 18:26 11 UNITS Potassium Chloride (Klor-Con Tab) 20 meq BID PO 10/29/16 09:00 11/28/16 08:59 11/04/16 08:52 20 MEQ Loperamide HCl (Imodium Cap) 2 mg Q4 PRN PO 10/29/16 21:15 11/28/16 21:14 Trimethoprim/ Sulfamethoxazole (Septra Ds 800/ 160MG Tab) 1 tab Q12 PO 10/31/16 21:00 11/14/16 20:59 11/04/16 08:54 1 TAB Calcium Carbonate (Tums Chew Tab) 1,000 mg Q4H PRN PO 11/01/16 23:45 12/01/16 23:44 11/04/16 06:14 1,000 MG Pantoprazole Sodium 40 mg 40 mg QAM PO 11/03/16 09:00 12/03/16 08:59 11/04/16 08:53 40 MG Sodium Chloride (Nss 1000ml) 1,000 ml @ 50 mls/hr Q20H IV 11/03/16 15:30 12/03/16 15:29 3/3/17 12:20 50 MLS/HR Insulin Detemir (Levemir Flexpen/ FlexTouch) 10 units if BSG less t... BID SC 11/04/16 21:00 12/04/16 20:59 Objective Vital Signs Date Time Temp Pulse Resp B/P Pulse Ox O2 Delivery O2 Flow Rate FiO2 11/04/16 17:15 Room Air 11/04/16 15:37 36.5 64 17 144/76 98 Room Air 11/04/16 09:28 97 Room Air 11/04/16 08:50 65 160/82 11/04/16 08:33 Room Air 11/04/16 07:44 36.5 57 18 151/87 97 Room Air 11/03/16 23:55 Room Air 11/03/16 23:15 36.6 57 18 122/69 97 Room Air Physical Exam General Appearance: WD/WN, no apparent distress Eyes: normal inspection, sclerae normal ENT: normal ENT inspection, pharynx normal Neck: supple, no adenopathy, trachea midline Respiratory/Chest: lungs clear, normal breath sounds, no respiratory distress Cardiovascular: regular rate, rhythm, no gallop, no murmur Abdomen: normal bowel sounds, non tender, soft, no organomegaly Extremities: non-tender, no calf tenderness Neurologic/Psychiatric: alert, oriented x 3 Skin: normal color, no rash Lymphatic: no adenopathy Laboratory Results Last 24 Hours Test 11/03/16 21:15 11/04/16 07:40 11/04/16 09:22 11/04/16 12:02 Bedside Glucose 206 mg/dl 174 mg/dl 279 mg/dl White Blood Count 9.90 K/uL Red Blood Count 4.54 M/uL Hemoglobin 13.7 g/dL Hematocrit 39.2 % Mean Corpuscular Volume 86.3 fL Mean Corpuscular Hemoglobin 30.2 pg Mean Corpuscular Hemoglobin Concent 34.9 g/dl Platelet Count 383 K/uL Mean Platelet Volume 9.6 fL Neutrophils (%) (Auto) 66.1 % Lymphocytes (%) (Auto) 23.2 % Monocytes (%) (Auto) 6.9 % Eosinophils (%) (Auto) 1.9 % Basophils (%) (Auto) 0.6 % Neutrophils # (Auto) 6.54 K/uL Lymphocytes # (Auto) 2.30 K/uL Monocytes # (Auto) 0.68 K/uL Eosinophils # (Auto) 0.19 K/uL Basophils # (Auto) 0.06 K/uL RDW Standard Deviation 44.8 fL RDW Coefficient of Variation 14.3 % Immature Granulocyte % (Auto) 1.3 % Immature Granulocyte # (Auto) 0.13 K/uL Sodium Level 138 mmol/L Potassium Level 4.7 mmol/L Chloride Level 102 mmol/L Carbon Dioxide Level 28 mmol/L Anion Gap 8.0 mmol/L Blood Urea Nitrogen 40 mg/dl Creatinine 2.30 mg/dl Est Creatinine Clear Calc Drug Dose 40.8 ml/min Estimated GFR () 33.3 Estimated GFR (Non- 28.7 BUN/Creatinine Ratio 17.5 Random Glucose 224 mg/dl Calcium Level 10.1 mg/dl Magnesium Level 2.3 mg/dl Test 11/04/16 17:00 Bedside Glucose 161 mg/dl Assessment and Plan (1) Severe sepsis Status: Acute Secondary to gangrenous right upper extremity finger POD #4 right third digit amputation of hand Clindamycin and daptomycin held per infectious disease Continue Zosyn Blood cultures growing methicillin sensitive Staph aureus Wound cultures growing Staph aureus, strep, Providencia, Gram-negative bacilli Course of treatment per infectious disease Continue isolation for history of positive MRSA screen in the nares 09/07/15 (2) Septic shock Status: Acute Now hemodynamically stable Continues with fever - Tmax 38.3 Plan on extubation today WBC 10.33 today Lactic acid normal Continue Zosyn per infectious disease (see above) (3) Acute encephalopathy Patient is off sedation for mechanical ventilation Anticipate extubation later today Renal function improving Most likely due to severe sepsis Status post amputation of finger with gangrene Continue antibiotic treatment CT head 10/25/16 negative for acute findings Continue to monitor (4) Elevated troponin I measurement Most likely leak from severe sepsis No ST changes on EKG History of ischemic cardiomyopathy Left ventricular ejection fraction 15-20% Severe global hypokinesis of the left ventricle Left ventricle is severely dilated No evidence of aortic stenosis (5) PATRICIA (acute kidney injury) Improving Creatinine down to 1.9 from 2.2 BUN continues to be elevated 2.3 L ahead for fluid status since admission Continue to monitor serial labs IV fluids held for pulmonary edema Currently requiring diuresis with twice a day furosemide Continue strict I's and O's (6) Necrotic wound of right hand Status: Acute Status post right middle finger amputation with Dr. Henriquez Ortho continues to follow (7) CHF (congestive heart failure) Status: Chronic IV fluids held Patient receiving diuresis twice daily Left ventricular ejection fraction 15-20% Continue to monitor on telemetry Continue strict I's and O's (8) DM type 2 (diabetes mellitus, type 2) Status: Chronic Patient on glyburide and Novolin R at home Hemoglobin A1c 9.6 Continue sliding scale insulin Levemir held Pharmacy consult for glycemic management Continue close monitoring (9) Hypothyroidism Status: Chronic Continue levothyroxine (10) Biventricular ICD (implantable cardioverter-defibrillator) in place Status: Chronic EKG representing pacer spikes Patient be monitored on telemetry (11) CAD (coronary artery disease) Status: Chronic Atorvastatin, imdur, Cozaar, Toprol-XL at home Antihypertensives held secondary to hypotension due to septic shock Resume PO meds as able once patient is extubated (12) History of MRSA infection Status: Chronic Wound cultures with MSSA Positive MRSA screening in [facility] 09/07/15 Continue isolation protocol Discussed with infection control (13) DVT prophylaxis Heparin subcutaneous Sepsis with septic shock, with methicillin sensitive Staph aureus , secondary to gangrenous right third finger infection now s/p amputation in patient with diabetes and multiple other co-morbidities. Given infected digit has been amputated, should be able to transition to oral Abx. Have recommended Bactrim D. S. Will follow.
[2016-11-04 21:37] VITALS: BP 120/72; PULSE 64
[2016-11-04 23:10] VITALS: BP 113/72; PULSE 55; TEMP 36.6; O2SAT 98
[2016-11-05] MEDS: HEPARIN SOD 5000 UNIT/0.5 ML CARP SQ SCH ×3 (06:23→21:33)
[2016-11-05] MEDS: LEVOTHYROXINE 50 MCG TAB PO SCH (06:25)
[2016-11-05] MEDS: SODIUM CHLORIDE 0.9% 1000ML 1,000 ML IV SCH (06:25)
[2016-11-05 07:10] LABS: BASO % 0.6 %; BASO ABS # 0.05 K/uL (0-0.2); COMPLETE YES; EOS % 1.9 %; HEMATOCRIT 36.9 % (42-52); IG% 1.4 %; LYMPH % 27.1 %; LYMPH ABS # 2.32 K/uL (1.2-3.4); MEAN CELL VOLUME 85.8 fL (80-100); MEAN CORPUSCULAR HEMOGLOBIN 30.2 pg (25-34); MEAN CORPUSCULAR HGB CONC 35.2 g/dl (32-36); MEAN PLATELET VOLUME 9.7 fL (7.4-10.4); MONO % 5.5 %; NEUT % 63.5 %; PLATELET COUNT 369 K/uL (130-400); WHITE BLOOD COUNT 8.55 K/uL (4.8-10.8)
[2016-11-05 07:15] LABS: BUN/CREATININE RATIO 18.9 (10-20); CALCIUM 9.3 mg/dl (8.5-10.1); CREATININE 2.1 mg/dl (0.60-1.40); MAGNESIUM 2.1 mg/dl (1.8-2.4)
[2016-11-05 08:02] VITALS: BP 126/77; PULSE 59; TEMP 36.4; O2SAT 100
[2016-11-05 09:25] VITALS: PULSE 60
[2016-11-05] MEDS: ASPIRIN 81 MG CHEW PO SCH (09:29)
[2016-11-05] MEDS: SERTRALINE HCL 100 MG TAB PO SCH (09:29)
[2016-11-05] MEDS: METOPROLOL SUCC 25MG EXT REL TAB PO SCH ×2 (09:29→21:29)
[2016-11-05] MEDS: POTASSIUM CHLORIDE 20 MEQ TABCR PO SCH ×2 (09:30→21:30)
[2016-11-05] MEDS: LACTOBACILLUS ACIDOPHILUS (FLORANEX) TAB PO SCH ×3 (09:30→21:29)
[2016-11-05] MEDS: EUCERIN CR 120 GM JAR EXT SCH ×2 (09:30→21:00)
[2016-11-05] MEDS: ATORVASTATIN 40 MG TAB PO SCH (09:30)
[2016-11-05] MEDS: ISOSORBIDE MONONITRATE 30 MG TABCR PO SCH (09:30)
[2016-11-05] MEDS: PANTOprazole SOD 40 MG TAB PO SCH (09:30)
[2016-11-05] MEDS: INSULIN ASPART 100 UNITS/ML 3 ML PEN SC SCH ×4 (09:34→21:00)
[2016-11-05] MEDS: INSULIN DETEMIR FLEXPEN/FLEX TOUCH 100 UNITS/ML 3ML SC SCH ×2 (09:36→21:32)
[2016-11-05] MEDS: SULFAMETHOXAZOLE/TRIMETHOPRIM DS 800/160MG TAB PO SCH ×2 (09:38→21:29)
[2016-11-05 15:33] VITALS: BP 113/67; PULSE 61; TEMP 36.7; O2SAT 98
--- NOTE | 2016-11-05 18:53 | Progress Note ---
Internal Med Progress Note Date of Service: Nov 05, 2016. Provider Documentation: SUBJECTIVE: resting comfortably diarrhea is better no chest pain or sob afebrile OBJECTIVE: Vital Signs-as noted below Exam: General-alert and awake and oriented. Not in distress ENT-normal hearing Neck-no neck masses Lungs-cta b/l no wheezing or crackles Heart-s1 and s2 heard, regular rate and rhythm no murmurs Abdomen-soft bowel sounds present non tender no distension Extremities-no edema no erythema s/p Right index finger amputation. Multiple toe amputations and left AKA Neuro-alert and awake moves extremities Lab data as noted below. ASSESSMENT & PLAN: Presented with Severe sepsis Most likely from the necrotic, gangrenous middle right finger Orthopedics was consulted s/p right middle finger amputation and I&D of hand on 10/24 ID on board Received Zosyn, daptomycin and clindamycin (for 48hrs for potential antitoxin agents) Zosyn change to Bactrim (on 10/31/16) for another 2 weeks as per ID blood cultures from 10/23 with MSSA repeat blood cultures from 10/24 negative wound cultures growing providencia, staphylococcus, streptococcus pt/ot plan for rehab soon to continue Bactrim for 6 weeks and followup in wound clinic on discharge stable currently Diarrhea Cdiff negative loperamide PRN resolved recheck for c diff negative will monitor Acute respiratory failure secondary to metabolic encephalopathy intubated 10/23 - 10/26 s/p extubation stable Acute renal failure possibly related to sepsis baseline creatinine is around 1.3-1.4 cr 2.1 today continue holding losartan not drinking water as thickened fluid not agreeing with him Holding Lasix and on gentle fluids f/u labs in am History of nonischemic cardiomyopathy ejection fraction around 15-20% On aspirin, atorvastatin, metoprolol, ISMN, furosemide holding losartan, lasix and metolazone until renal function returns to baseline stable Dysphagia seen by speech and recommends mechanical soft and nectar thickened fluids not tolerating nectar thick liquids d/w Speech-patient apparently using more than required thickening agent. Tolerating better after using less thickened fluids needs continued speech therapy Elevation troponin likely due to demand ischemia from sepsis and ARF TTE showing no change from previous stable Type 2 DM hba1c 9.6 On insulin glycemic pharmacy consulted will monitor. Hypothyroidism On Synthroid DVT prophylaxis with heparin sq Disposition plan for health [facility] on Monday Vital Signs: Date Time Temp Pulse Resp B/P Pulse Ox O2 Delivery O2 Flow Rate FiO2 11/05/16 15:33 36.7 61 16 113/67 98 Room Air 11/05/16 09:25 60 11/05/16 08:05 Room Air 11/05/16 08:02 36.4 59 18 126/77 100 Room Air 11/05/16 00:10 Room Air 11/04/16 23:10 36.6 55 18 113/72 98 Room Air 11/04/16 21:37 64 120/72 Lab Results: Results Past 24 Hours Test 11/04/16 20:54 11/05/16 06:25 11/05/16 08:54 11/05/16 11:36 Range/Units Bedside Glucose 129 184 193 70-99 mg/dl White Blood Count 8.55 4.8-10.8 K/uL Red Blood Count 4.30 4.7-6.1 M/uL Hemoglobin 13.0 14.0-18.0 g/dL Hematocrit 36.9 42-52 % Mean Corpuscular Volume 85.8 80-100 fL Mean Corpuscular Hemoglobin 30.2 25-34 pg Mean Corpuscular Hemoglobin Concent 35.2 32-36 g/dl Platelet Count 369 130-400 K/uL Mean Platelet Volume 9.7 7.4-10.4 fL Neutrophils (%) (Auto) 63.5 % Lymphocytes (%) (Auto) 27.1 % Monocytes (%) (Auto) 5.5 % Eosinophils (%) (Auto) 1.9 % Basophils (%) (Auto) 0.6 % Neutrophils # (Auto) 5.43 1.4-6.5 K/uL Lymphocytes # (Auto) 2.32 1.2-3.4 K/uL Monocytes # (Auto) 0.47 0.11-0.59 K/uL Eosinophils # (Auto) 0.16 0-0.5 K/uL Basophils # (Auto) 0.05 0-0.2 K/uL RDW Standard Deviation 45.2 36.4-46.3 fL RDW Coefficient of Variation 14.4 11.5-14.5 % Immature Granulocyte % (Auto) 1.4 % Immature Granulocyte # (Auto) 0.12 0.00-0.02 K/uL Sodium Level 137 136-145 mmol/L Potassium Level 5.0 3.5-5.1 mmol/L Chloride Level 107 98-107 mmol/L Carbon Dioxide Level 21 21-32 mmol/L Anion Gap 9.0 3-11 mmol/L Blood Urea Nitrogen 40 7-18 mg/dl Creatinine 2.10 0.60-1.40 mg/dl Est Creatinine Clear Calc Drug Dose 44.1 ml/min Estimated GFR () 36.9 Estimated GFR (Non- 31.8 BUN/Creatinine Ratio 18.9 10-20 Random Glucose 171 70-99 mg/dl Calcium Level 9.3 8.5-10.1 mg/dl Magnesium Level 2.1 1.8-2.4 mg/dl Test 11/05/16 17:19 Range/Units Bedside Glucose 142 70-99 mg/dl Microbiology Results 11/04/16 C.difficile Toxin B Gene (PCR) - Final, Complete No C. difficile toxin B gene detected
[2016-11-06 01:00] VITALS: BP 113/47; PULSE 56; TEMP 36.6; O2SAT 98
[2016-11-06] MEDS: SODIUM CHLORIDE 0.9% 1000ML 1,000 ML IV SCH ×2 (03:22→23:56)
[2016-11-06] MEDS: LEVOTHYROXINE 50 MCG TAB PO SCH (06:08)
[2016-11-06] MEDS: HEPARIN SOD 5000 UNIT/0.5 ML CARP SQ SCH ×3 (06:08→21:44)
[2016-11-06 07:55] VITALS: BP 136/74; PULSE 56; TEMP 36.9; O2SAT 100
[2016-11-06 08:36] LABS: CALCIUM 9.2 mg/dl (8.5-10.1); POTASSIUM 5.1 mmol/L (3.5-5.1)
[2016-11-06] MEDS: METOPROLOL SUCC 25MG EXT REL TAB PO SCH ×2 (09:00→21:32)
[2016-11-06] MEDS: LACTOBACILLUS ACIDOPHILUS (FLORANEX) TAB PO SCH ×3 (09:08→21:43)
[2016-11-06] MEDS: PANTOprazole SOD 40 MG TAB PO SCH (09:08)
[2016-11-06] MEDS: POTASSIUM CHLORIDE 20 MEQ TABCR PO SCH ×2 (09:09→21:44)
[2016-11-06] MEDS: SULFAMETHOXAZOLE/TRIMETHOPRIM DS 800/160MG TAB PO SCH ×2 (09:09→21:44)
[2016-11-06] MEDS: SERTRALINE HCL 100 MG TAB PO SCH (09:11)
[2016-11-06] MEDS: ATORVASTATIN 40 MG TAB PO SCH (09:12)
[2016-11-06] MEDS: ISOSORBIDE MONONITRATE 30 MG TABCR PO SCH (09:13)
[2016-11-06] MEDS: EUCERIN CR 120 GM JAR EXT SCH ×2 (09:14→21:48)
[2016-11-06] MEDS: INSULIN ASPART 100 UNITS/ML 3 ML PEN SC SCH ×4 (09:22→21:41)
[2016-11-06] MEDS: INSULIN DETEMIR FLEXPEN/FLEX TOUCH 100 UNITS/ML 3ML SC SCH ×2 (09:23→21:35)
[2016-11-06] MEDS: ASPIRIN 81 MG CHEW PO SCH (09:25)
[2016-11-06 11:53] VITALS: BP 148/73; PULSE 62
--- NOTE | 2016-11-06 14:19 | Pharmacy Progress Note ---
Glycemic Control: Progress Nt Date of Service Nov 06, 2016. Scope Glycemic Pharmacist consulted by on 10/23/16 for glycemic control and to write orders per [facility] inpatient glycemic control protocol. Objective Accuchecks BSG (last 24hrs): Test 11/05/16 17:19 11/05/16 20:52 11/06/16 07:50 11/06/16 07:52 Bedside Glucose 142 mg/dl (70-99) 116 mg/dl (70-99) 118 mg/dl (70-99) Random Glucose 117 mg/dl (70-99) Test 11/06/16 11:59 Bedside Glucose 169 mg/dl (70-99) Laboratory Data (last 24hrs) Test 11/06/16 07:52 Anion Gap 8.0 mmol/L BUN/Creatinine Ratio 18.0 Blood Urea Nitrogen 36 mg/dl Creatinine 2.00 mg/dl Potassium Level 5.1 mmol/L Sodium Level 139 mmol/L HbA1c: Test 10/24/16 04:34 Hemoglobin A1c 9.6 % (4.5-5.6) H Recent Pertinent Medications Outpatient Anti-diabetic Regimen: * Levemir 80 units SQ BID * Novolin R 3 units BID * Glyburide 5mg daily9.6 * A1c = 9.6 % 10/24/16 Risk Factors for Insulin Resistance: * Infection: sepsis secondary to finger gangrene; transitioned to Bactrim PO * Recent Surgery: POD # 14 * Diet: ordered T2DM / AHA diet; tolerating diet well Assessment & Plan ASSESSMENT: 10/31/16 * Over the last 24 hours patient has received 93 units SQ insulin (while tolerating a diet) * Fasting BSG 91-105 this AM with 45 units Levemir on board - however must consider the patient did receive 14 units of Novolog at HS last night * Based upon a review of the last 3 days of insulin doses and diet, would expect the patient to require 80-90 units of insulin per day to achieve glycemic targets * Would like to adjust the basal insulin dose today so that patient receives 35- 40 units of basal insulin per day, less than currently ordered due to FBS less than 100 11/01/16 * Glycemic control has been acceptable over the last 24 hours, with the exception of one episode of mild hypoglycemia pre-dinner (BSG 69) * Over the last 24 hrs the patient received 63 units of insulin * Fasting BSG 163 this AM w/ 33 units basal on board - current Levemir dose will provide 36 units/day * Will reduce the prandial insulin dose slightly given the episode of pre- dinner hypoglycemia yesterday that was likely secondary to excess prandial insulin w/ lunch * Currently estimate patient to require ~80 units of insulin per day when consuming 3 meals/day 11/02/16 * Glycemic control remains acceptable; BSGs have ranged 115-199 over last 24 hrs ; no further episodes of hypoglycemia * Fasting BSG 149 this AM w/ 27 units of basal insulin on board (18units in AM + 9 units in PM secondary to BSG less than 120 at HS) * He has received 66 units of SQ insulin over last 24 hrs while consuming 3 meals of varying CHO content * BSGs may run a littler higher today with less basal insulin on board * Given current control w/ existing orders, will make no changes today. Total daily insulin requirement still likely to be ~70-80 units when eating well 11/03/16 * BSGs ranged 135-199 over last 24 hrs - acceptable for this patient * Fasting BSG 135-150 this AM with 36 units basal on board * Over the last 24 hrs he received 71 units and consumed 3 meals * Plan to continue with current insulin orders as BSGs have begun to stabilize and I expect better BSGs today with the larger basal dose on board 11/04/16 * BSGs have ranged 150-206 over the last 24 hrs, only 1 BSG above 180 - acceptable control overall * Fasting BSGs are starting to trend higher; will increase basal dose slightly * 2 of 3 post-prandial BSGs at goal yesterday w/ current Novolog doses - will continue same doses 11/06/16 * BSGs ranging 116 - 193 mg/dl the past 24 hours. * No changes to DM regimen required at this time. PLAN FOR INPATIENT GLYCEMIC CONTROL: * Continue basal: Levemir to 20 units SQ BID - give 1/2 dose (10 units) if BSG less than 120 * Novolog ACHS * Continue correction factor of 12 mg/dl/unit * Continue carb ratio of 1 unit per 4 grams CHO consumed * Continue goal range of Low 110 mg/dL - High 140 mg/dL * Please note that the plan above was derived based on current level of insulin resistance and hospital stress. These recommendations are appropriate for inpatient admission only. Plan of care upon discharge will need to be reassessed to avoid potential outpatient hypo/hyperglycemia. Thank you.
[2016-11-06 14:59] VITALS: BP 127/67; PULSE 65; TEMP 36.5; O2SAT 99
--- NOTE | 2016-11-06 18:30 | Progress Note ---
Internal Med Progress Note Date of Service: Nov 06, 2016. Provider Documentation: SUBJECTIVE: resting comfortably had a episode of diarrhea today no chest pain or sob afebrile awaiting rehab placement OBJECTIVE: Vital Signs-as noted below Exam: General-alert and awake and oriented. Not in distress ENT-normal hearing Neck-no neck masses Lungs-cta b/l no wheezing or crackles Heart-s1 and s2 heard, regular rate and rhythm no murmurs Abdomen-soft bowel sounds present non tender no distension Extremities-no edema no erythema s/p Right index finger amputation. Multiple toe amputations and left AKA Neuro-alert and awake moves extremities Lab data as noted below. ASSESSMENT & PLAN: Presented with Severe sepsis Most likely from the necrotic, gangrenous middle right finger Orthopedics was consulted s/p right middle finger amputation and I&D of hand on 10/24 ID on board Received Zosyn, daptomycin and clindamycin (for 48hrs for potential antitoxin agents) Zosyn change to Bactrim (on 10/31/16) as per ID blood cultures from 10/23 with MSSA repeat blood cultures from 10/24 negative wound cultures growing providencia, staphylococcus, streptococcus pt/ot plan for rehab soon to continue Bactrim for 6 weeks and followup in wound clinic on discharge stable currently Diarrhea Cdiff negative loperamide PRN resolved recheck for c diff negative probiotics will monitor Acute respiratory failure secondary to metabolic encephalopathy intubated 10/23 - 10/26 s/p extubation stable Acute renal failure possibly related to sepsis baseline creatinine is around 1.3-1.4 cr 2.0 today continue holding losartan Holding Lasix and on gentle fluids f/u labs in am History of nonischemic cardiomyopathy ejection fraction around 15-20% On aspirin, atorvastatin, metoprolol, ISMN, furosemide holding losartan, lasix and metolazone until renal function returns to baseline stable Dysphagia seen by speech and recommends mechanical soft and nectar thickened fluids not tolerating nectar thick liquids d/w Speech-patient apparently using more than required thickening agent. Tolerating better after using less thickened fluids needs continued speech therapy f/u with speech therapy Elevation troponin likely due to demand ischemia from sepsis and ARF TTE showing no change from previous stable Type 2 DM hba1c 9.6 On insulin glycemic pharmacy consulted will monitor. Hypothyroidism On Synthroid DVT prophylaxis with heparin sq Disposition plan for [facility] once renal function improves Vital Signs: Date Time Temp Pulse Resp B/P Pulse Ox O2 Delivery O2 Flow Rate FiO2 11/06/16 14:59 36.5 65 18 127/67 99 Room Air 11/06/16 08:13 Room Air 11/06/16 07:55 36.9 56 18 136/74 100 Room Air 11/06/16 01:00 36.6 56 18 113/47 98 Room Air 11/06/16 01:00 Room Air 11/05/16 20:00 Room Air Lab Results: Results Past 24 Hours Test 11/05/16 20:52 11/06/16 07:50 11/06/16 07:52 11/06/16 11:59 Range/Units Bedside Glucose 116 118 169 70-99 mg/dl Sodium Level 139 136-145 mmol/L Potassium Level 5.1 3.5-5.1 mmol/L Chloride Level 109 98-107 mmol/L Carbon Dioxide Level 22 21-32 mmol/L Anion Gap 8.0 3-11 mmol/L Blood Urea Nitrogen 36 7-18 mg/dl Creatinine 2.00 0.60-1.40 mg/dl Est Creatinine Clear Calc Drug Dose 46.3 ml/min Estimated GFR () 39.1 Estimated GFR (Non- 33.8 BUN/Creatinine Ratio 18.0 10-20 Random Glucose 117 70-99 mg/dl Calcium Level 9.2 8.5-10.1 mg/dl Test 11/06/16 16:36 Range/Units Bedside Glucose 176 70-99 mg/dl
[2016-11-06 21:25] VITALS: BP 131/69; PULSE 65
[2016-11-06 22:55] VITALS: BP 129/81; PULSE 61; TEMP 36.5; O2SAT 98
[2016-11-07] MEDS: HEPARIN SOD 5000 UNIT/0.5 ML CARP SQ SCH ×3 (05:27→21:36)
[2016-11-07] MEDS: LEVOTHYROXINE 50 MCG TAB PO SCH (05:28)
[2016-11-07 05:44] LABS: BASO % 1.3 %; BASO ABS # 0.09 K/uL (0-0.2); COMPLETE YES; EOS % 1.9 %; HEMATOCRIT 33.7 % (42-52); IG% 0.7 %; LYMPH % 28.9 %; LYMPH ABS # 1.98 K/uL (1.2-3.4); MEAN CELL VOLUME 86.4 fL (80-100); MEAN CORPUSCULAR HEMOGLOBIN 29.5 pg (25-34); MEAN CORPUSCULAR HGB CONC 34.1 g/dl (32-36); MEAN PLATELET VOLUME 9.3 fL (7.4-10.4); MONO % 6.1 %; NEUT % 61.1 %; PLATELET COUNT 302 K/uL (130-400); WHITE BLOOD COUNT 6.85 K/uL (4.8-10.8)
[2016-11-07 06:09] LABS: BUN/CREATININE RATIO 18.5 (10-20); CALCIUM 8.4 mg/dl (8.5-10.1); CREATININE 1.8 mg/dl (0.60-1.40); MAGNESIUM 1.9 mg/dl (1.8-2.4); POTASSIUM 4.9 mmol/L (3.5-5.1)
[2016-11-07 07:53] VITALS: BP 120/69; PULSE 54; TEMP 36.9; O2SAT 97
[2016-11-07 07:56] VITALS: O2SAT 97
[2016-11-07] MEDS: LACTOBACILLUS ACIDOPHILUS (FLORANEX) TAB PO SCH ×3 (09:07→21:24)
[2016-11-07] MEDS: ISOSORBIDE MONONITRATE 30 MG TABCR PO SCH (09:10)
[2016-11-07] MEDS: POTASSIUM CHLORIDE 20 MEQ TABCR PO SCH (09:11)
[2016-11-07] MEDS: ATORVASTATIN 40 MG TAB PO SCH (09:12)
[2016-11-07] MEDS: PANTOprazole SOD 40 MG TAB PO SCH (09:13)
[2016-11-07] MEDS: SULFAMETHOXAZOLE/TRIMETHOPRIM DS 800/160MG TAB PO SCH ×2 (09:14→21:24)
[2016-11-07] MEDS: METOPROLOL SUCC 25MG EXT REL TAB PO SCH ×2 (09:19→21:00)
[2016-11-07] MEDS: SERTRALINE HCL 100 MG TAB PO SCH (09:20)
[2016-11-07] MEDS: INSULIN ASPART 100 UNITS/ML 3 ML PEN SC SCH ×4 (09:47→21:00)
[2016-11-07] MEDS: INSULIN DETEMIR FLEXPEN/FLEX TOUCH 100 UNITS/ML 3ML SC SCH ×2 (09:49→21:34)
[2016-11-07] MEDS: ASPIRIN 81 MG CHEW PO SCH (09:49)
[2016-11-07] MEDS: EUCERIN CR 120 GM JAR EXT SCH ×2 (09:50→21:26)
[2016-11-07 15:23] VITALS: BP 108/64; PULSE 69; TEMP 36.6; O2SAT 99
--- NOTE | 2016-11-07 17:32 | Progress Note ---
Internal Med Progress Note Date of Service: Nov 07, 2016. Provider Documentation: SUBJECTIVE: resting comfortably still has diarrhea eating fine drinking water fine no sob afebrile OBJECTIVE: Vital Signs-as noted below Exam: General-alert and awake and oriented. Not in distress ENT-normal hearing Neck-no neck masses Lungs-cta b/l no wheezing or crackles Heart-s1 and s2 heard, regular rate and rhythm no murmurs Abdomen-soft bowel sounds present non tender no distension Extremities-no edema no erythema s/p Right index finger amputation. Multiple toe amputations and left AKA Neuro-alert and awake moves extremities Lab data as noted below. ASSESSMENT & PLAN: Presented with Severe sepsis Most likely from the necrotic, gangrenous middle right finger Orthopedics was consulted s/p right middle finger amputation and I&D of hand on 10/24 ID on board Received Zosyn, daptomycin and clindamycin (for 48hrs for potential antitoxin agents) Zosyn change to Bactrim (on 10/31/16) as per ID blood cultures from 10/23 with MSSA repeat blood cultures from 10/24 negative wound cultures growing providencia, staphylococcus, streptococcus pt/ot to continue Bactrim for 6 weeks and followup in wound clinic on discharge stable currently plan for rehab soon Diarrhea Cdiff negative loperamide PRN resolved recheck for c diff negative probiotics will monitor Acute respiratory failure secondary to metabolic encephalopathy intubated 10/23 - 10/26 s/p extubation stable Acute renal failure possibly related to sepsis baseline creatinine is around 1.3-1.4 cr 1.8 today continue holding losartan Holding Lasix and on gentle fluids f/u labs in am History of nonischemic cardiomyopathy ejection fraction around 15-20% On aspirin, atorvastatin, metoprolol, ISMN, furosemide holding losartan, lasix and metolazone until renal function returns to baseline stable Dysphagia seen by speech and recommends mechanical soft and nectar thickened fluids not tolerating nectar thick liquids d/w Speech-patient apparently using more than required thickening agent. Tolerating better after using less thickened fluids needs continued speech therapy f/u with speech therapy in rehab Elevation troponin likely due to demand ischemia from sepsis and ARF TTE showing no change from previous stable Type 2 DM hba1c 9.6 On insulin glycemic pharmacy consulted will monitor. Hypothyroidism On Synthroid DVT prophylaxis with heparin sq Disposition plan for [facility] possibly in am Vital Signs: Date Time Temp Pulse Resp B/P Pulse Ox O2 Delivery O2 Flow Rate FiO2 11/07/16 15:23 36.6 69 18 108/64 99 Room Air 11/07/16 08:00 Room Air 11/07/16 07:56 97 Room Air 11/07/16 07:53 36.9 54 16 120/69 97 Room Air 11/07/16 00:00 Room Air 11/06/16 22:55 36.5 61 18 129/81 98 Room Air 11/06/16 21:25 65 131/69 Lab Results: Results Past 24 Hours Test 11/06/16 20:36 11/07/16 05:17 11/07/16 08:17 11/07/16 11:21 Range/Units Bedside Glucose 184 145 225 70-99 mg/dl White Blood Count 6.85 4.8-10.8 K/uL Red Blood Count 3.90 4.7-6.1 M/uL Hemoglobin 11.5 14.0-18.0 g/dL Hematocrit 33.7 42-52 % Mean Corpuscular Volume 86.4 80-100 fL Mean Corpuscular Hemoglobin 29.5 25-34 pg Mean Corpuscular Hemoglobin Concent 34.1 32-36 g/dl Platelet Count 302 130-400 K/uL Mean Platelet Volume 9.3 7.4-10.4 fL Neutrophils (%) (Auto) 61.1 % Lymphocytes (%) (Auto) 28.9 % Monocytes (%) (Auto) 6.1 % Eosinophils (%) (Auto) 1.9 % Basophils (%) (Auto) 1.3 % Neutrophils # (Auto) 4.18 1.4-6.5 K/uL Lymphocytes # (Auto) 1.98 1.2-3.4 K/uL Monocytes # (Auto) 0.42 0.11-0.59 K/uL Eosinophils # (Auto) 0.13 0-0.5 K/uL Basophils # (Auto) 0.09 0-0.2 K/uL RDW Standard Deviation 44.9 36.4-46.3 fL RDW Coefficient of Variation 14.4 11.5-14.5 % Immature Granulocyte % (Auto) 0.7 % Immature Granulocyte # (Auto) 0.05 0.00-0.02 K/uL Sodium Level 140 136-145 mmol/L Potassium Level 4.9 3.5-5.1 mmol/L Chloride Level 107 98-107 mmol/L Carbon Dioxide Level 25 21-32 mmol/L Anion Gap 8.0 3-11 mmol/L Blood Urea Nitrogen 33 7-18 mg/dl Creatinine 1.80 0.60-1.40 mg/dl Est Creatinine Clear Calc Drug Dose 51.5 ml/min Estimated GFR () 44.5 Estimated GFR (Non- 38.4 BUN/Creatinine Ratio 18.5 10-20 Random Glucose 137 70-99 mg/dl Calcium Level 8.4 8.5-10.1 mg/dl Magnesium Level 1.9 1.8-2.4 mg/dl Test 11/07/16 16:55 Range/Units Bedside Glucose 96 70-99 mg/dl
[2016-11-07] MEDS: SODIUM CHLORIDE 0.9% 1000ML 1,000 ML IV SCH (19:50)
[2016-11-07 23:40] VITALS: BP 124/69; PULSE 60; TEMP 36.7; O2SAT 97
[2016-11-08] MEDS: HEPARIN SOD 5000 UNIT/0.5 ML CARP SQ SCH ×2 (05:23→14:36)
[2016-11-08] MEDS: LEVOTHYROXINE 50 MCG TAB PO SCH (05:24)
[2016-11-08 07:41] VITALS: BP 131/82; PULSE 66; O2SAT 99
[2016-11-08] MEDS: METOPROLOL SUCC 25MG EXT REL TAB PO SCH (09:37)
[2016-11-08] MEDS: ATORVASTATIN 40 MG TAB PO SCH (09:38)
[2016-11-08] MEDS: ISOSORBIDE MONONITRATE 30 MG TABCR PO SCH (09:38)
[2016-11-08] MEDS: PANTOprazole SOD 40 MG TAB PO SCH (09:39)
[2016-11-08] MEDS: SERTRALINE HCL 100 MG TAB PO SCH (09:39)
[2016-11-08] MEDS: SULFAMETHOXAZOLE/TRIMETHOPRIM DS 800/160MG TAB PO SCH (09:39)
[2016-11-08] MEDS: LACTOBACILLUS ACIDOPHILUS (FLORANEX) TAB PO SCH ×2 (09:39→14:33)
[2016-11-08] MEDS: EUCERIN CR 120 GM JAR EXT SCH (09:42)
--- NOTE | 2016-11-08 09:46 | PROGRESS NOTE ---
DATE: 11/08/2016 SUBJECTIVE: Rogelio is seen at the bedside today, he has no new complaints. He states his hand is improving. OBJECTIVE: Right hand exam shows an appropriately healing surgical incision. I do not see active infection. He has about a 1.5 cm area of slight wound opening with serous drainage. No gross pus. ASSESSMENT: Two weeks status post right hand amputation. PLAN: Overall, he is improving. He should follow up with me in the office for suture removal upon discharge. We will continue to follow him as an outpatient.
[2016-11-08] MEDS: ASPIRIN 81 MG CHEW PO SCH (09:58)
[2016-11-08] MEDS: INSULIN ASPART 100 UNITS/ML 3 ML PEN SC SCH ×2 (10:00→12:52)
[2016-11-08] MEDS: INSULIN DETEMIR FLEXPEN/FLEX TOUCH 100 UNITS/ML 3ML SC SCH (10:01)
[2016-11-08 13:21] VITALS: BP 131/82; PULSE 66; TEMP 36.7; O2SAT 99
[2016-11-08] MEDS ORDERED: SULF800T23 PO (13:27)
--- NOTE | 2016-11-08 13:35 | Discharge Instructions ---
Discharge Instructions Date of Service Nov 08, 2016. Admission Reason for Admission: Septic Shock Discharge Discharge Diagnosis / Problem: septic shock, necrotic right third finger s/p amputation Discharge Goals Goal(s): Decrease discomfort, Improve function Activity Recommendations Activity Level: Assistance Required Therapies: Physical Therapy, Occupational Therapy, Speech Therapy . Additional Information Patient informed of condition: Yes Advance Directives: Yes DNR: No Level of Care: Acute Rehab Communicable Disease: No Prognosis: Stable Newby Catheter: No Instructions / Follow-Up Instructions / Follow-Up FOLLOWUP WITH FAMILY DOCTOR ONE WEEK FROM DISCHARGE FROM REHAB FOLLOWUP WITH CARDIOLOGY IN ONE WEEK FOLLOWUP WITH HAND SURGERY DR.Christopher Jerman Henriquez IN ONE WEEK FOLLOWUP WITH WOUND CLINIC AND INFECTIOUS DISEASE AT WOUND CLINIC IN 1-2 WEEKS DAILY DRESSING OF THE WOUNDS IN RIGHT HAND AND NECK. HOLD LASIX AND LOSARTAN FOR COUPLE OF DAYS AND RESTART THEM AT HOME DOSE. LAB: BMP IN 5-7 DAYS AND FOLLOW RESULTS WITH FAMILY DOCTOR. RESTART OF DIGOXIN PER CARDIOLOGY WITH FOLLOWUP OF LABS. IF RENAL FUNCTION WORSENS TO DISCUSS WITH CARDIOLOGY ABOUT DIURETICS. SPEECH RECOMMENDATIONS: Speech Therapy Discharge Instructions * 1.Mechanical soft diet, slippery, and NECTAR thick liquids. May have ice chips prn for comfort. Oral care must be completed prior to providing ice chips. 2.Aspiration AND GERD precautions. Straws OK with small sips. Patient must be fully upright with p.o. intake, and remain fully upright 30-60 minutes after meal is complete. HOB should be elevated to 30 degrees at all times, which includes during times when he is sleeping. 3.Safe swallow strategies: Small bites, small single sips. Stringent oral care, which also includes brushing of his teeth and all surfaces of the mouth to prevent aspiration of bacteria in saliva. 4.Consider a trial of dysphagia therapy, with focus on thermal stimulation to improve swallow reflex time. Would also benefit from continued speech at discharge for further education and training on diet and safe swallow strategies. Current Hospital Diet Patient's current hospital diet: AHA Diet (Heart Healthy), Diabetes Type 2 Diet Discharge Diet Recommended Diet: AHA Diet (Heart Healthy), Diabetes Type 2 Diet Diet Texture: Mechanical Soft (ground) Liquid Consistency: [place] Thick (slippery , no straws) Procedures Procedures Performed: Right Middle Finger Incision and Drainage and Amputation Pending Studies Studies pending at discharge: no Physician Orders On Transfer Special Precautions: FALL AND ASPIRATION PRECAUTIONS Vital Signs: EVERY 8HRS Additional Orders: Call your Primary Care doctor if any of the following symptoms or problems start or get worse: * Shortness of breath or difficulty breathing * Wake up at night short of breath * Chest pain * Cough * Swelling of your hands, feet, or legs * More fatigued or tired with your normal activity * Palpitations - sudden fast heart beats WEIGHT * Weigh yourself every morning after using the bathroom. * Use the same scale. * Wear the same amount of clothing. * Write your weight down on a chart. * Call your Primary Care doctor if you gain more than 2-3 pounds in 1-2 days. MEDICATIONS * Use this discharge instruction sheet for medication instructions. * Take your medications at the time your doctor ordered. * Do not skip a dose of your medicines. * If you miss a dose of medicine, take it as soon as possible, but DO NOT DOUBLE A DOSE. * Read your medicine information when you get home. * Know all of the side effects of your medicine. If in doubt, ask your pharmacist * Call your Primary Care doctor's office if you have any side effects. * Be sure all of your doctors know what medicine and herbs you take (including cold, flu, and herbal medicine). Take the following with you to your follow-up doctor appointments: * Weight Chart * Medication List * List of questions Do not drink excessive alcohol, beer or wine. Laboratory Results Hemoglobin A1c Test 10/24/16 04:34 Range/Units Estimated Average Glucose 229 mg/dl Hemoglobin A1c 9.6 H 4.5-5.6 % Medical Emergencies . Who to Call and When: Medical Emergencies: If at any time you feel your situation is an emergency, please call 911 immediately. . Non-Emergent Contact Non-Emergency issues call your: Primary Care Provider . . "Provider Documentation" section prepared by Francois Aviles. Core Measure Problem Core Measures: None
--- NOTE | 2016-11-08 13:56 | Progress Note ---
Internal Med Progress Note Date of Service: Nov 08, 2016. Provider Documentation: SUBJECTIVE: resting comfortably moved bowels once afebrile no sob no chest pain' waiting to be discharged to rehab OBJECTIVE: Vital Signs-as noted below Exam: General-alert and awake and oriented. Not in distress ENT-normal hearing Neck-no neck masses Lungs-cta b/l no wheezing or crackles Heart-s1 and s2 heard, regular rate and rhythm no murmurs Abdomen-soft bowel sounds present non tender no distension Extremities-no edema no erythema s/p Right index finger amputation. Multiple toe amputations and left AKA Neuro-alert and awake moves extremities Lab data as noted below. ASSESSMENT & PLAN: Presented with Severe sepsis Most likely from the necrotic, gangrenous middle right finger Orthopedics was consulted s/p right middle finger amputation and I&D of hand on 10/24 ID on board Received Zosyn, daptomycin and clindamycin (for 48hrs for potential antitoxin agents) Zosyn change to Bactrim (on 10/31/16) as per ID blood cultures from 10/23 with MSSA repeat blood cultures from 10/24 negative wound cultures growing providencia, staphylococcus, streptococcus pt/ot to continue Bactrim for 6 weeks and followup in wound clinic and ID on discharge stable currently plan for rehab today Diarrhea Cdiff negative loperamide PRN resolved recheck for c diff negative probiotics will monitor Acute respiratory failure secondary to metabolic encephalopathy intubated 10/23 - 10/26 s/p extubation stable Acute renal failure possibly related to sepsis baseline creatinine is around 1.3-1.4 cr 1.8 today continue holding losartan Holding Lasix to hold lasix and losartan for couple of days and restart f/u labs in 5-7 days with pcp History of nonischemic cardiomyopathy ejection fraction around 15-20% On aspirin, atorvastatin, metoprolol, ISMN, furosemide holding losartan, lasix and metolazone until renal function returns to baseline holding Lasix and losartan for couple of days and restart to check labs in 5-7 days and if renal function worsens to d/w cardiology regarding diuretic dosage. Dysphagia seen by speech and recommends mechanical soft and nectar thickened fluids. SLIPPERY, NO STRAWS not tolerating nectar thick liquids d/w Speech-patient apparently using more than required thickening agent. Tolerating better after using less thickened fluids needs continued speech therapy f/u with speech therapy in rehab Elevation troponin likely due to demand ischemia from sepsis and ARF TTE showing no change from previous stable Type 2 DM hba1c 9.6 On insulin glycemic pharmacy consulted f/u with pcp Hypothyroidism On Synthroid Discharged to [facility] Vital Signs: Date Time Temp Pulse Resp B/P Pulse Ox O2 Delivery O2 Flow Rate FiO2 11/08/16 13:21 36.7 66 18 99 Room Air Mechanical Ventilator 11/08/16 08:15 Room Air 11/08/16 07:41 66 18 131/82 99 Room Air 11/07/16 23:40 36.7 60 16 124/69 97 Room Air 11/07/16 23:35 Room Air 11/07/16 16:20 Room Air 11/07/16 15:23 36.6 69 18 108/64 99 Room Air Lab Results: Results Past 24 Hours Test 11/07/16 16:55 11/07/16 20:08 11/08/16 08:15 11/08/16 11:39 Range/Units Bedside Glucose 96 96 147 193 70-99 mg/dl
--- NOTE | 2016-11-08 14:22 | Discharge Summary ---
Discharge Summary Date of Service Nov 08, 2016. Discharge Summary Admission Date: Oct 23, 2016 at 12:41 Discharge Date: Nov 08, 2016 Discharge Disposition: Rehab Principal Diagnosis: SEVERE SEPSIS/SEPTIC SHOCK NECROTIC RIGHT MIDDLE FINGER S/P I AND D AND AMPUTATION ARF DYSPHAGIA Secondary Diagnoses/Problems: diabetes, nonischemic cardiomyopathy with EF of around 15-20%, status post ICD, history of CAD, history of gout, hyperlipidemia, hematuria, history of adjustment disorder, history of multiple amputations of his fingers, history of rheumatic fever, history of MRSA infection, hypertension, hypothyroidism, history of lung nodule, history of MSSA bacteremia in year 2015 with amputation of the right index finger which had I and D done a couple of times and was on long-term antibiotics Procedures: TTE * Compared to the prior study dated 12/11/15, there is persistent severe LV systolic dysfunction. CT head No acute intracranial findings Consultations: Radio Electrician ID Ortho Medication Reconciliation New Medications: Sulfamethoxazole-Trimethoprim (Bactrim Ds 800MG/160MG) 1 Tab Tab 1 TAB PO BID for 40 Days, #80 TAB Continued Medications: Allopurinol (Zyloprim) 300 Mg Tab 300 MG PO DAILY, TAB Aspirin (Aspirin Ec) 81 Mg Tab 81 MG PO DAILY Atorvastatin (Lipitor) 80 Mg Tab 80 MG PO DAILY, 0 Refills Furosemide (Lasix) 80 Mg Tab 1 TAB PO BID for 30 Days, #60 TAB 3 Refills Glyburide (Diabeta) 5 Mg Tab 5 MG PO DAILY, TAB Insulin Detemir (Levemir) 100 Units/Ml Inj 80 UNITS SQ BID unable to verify with pt, contacted Pharmacy, was on lantus changed to levemir due to insurance change, last filled 09-29 Insulin Human Regular (Novolin R) 100 Units/1 Ml Inj 3 UNITS SQ AMPM Isosorbide Mononitrate Ext Rel (Imdur Ext Rel) 30 Mg Ertab 15 MG PO DAILY for 30 Days, #15 TAB 5 Refills Lactobacillus Acidophilus (Lactinex) Tab 1 TAB PO TID for 45 Days, TAB Levothyroxine Sodium (Synthroid) 50 Mcg Tab 50 MCG PO DAILY for 30 Days, #30 TAB 5 Refills Losartan Potassium (Cozaar) 25 Mg Tab 25 MG PO DAILY, TAB Metolazone (Zaroxolyn) 2.5 Mg Tab 2.5 MG PO WK, TAB TAKES ON SUNDAYS Metoprolol Succinate (Toprol Xl) 25 Mg Tab 25 MG PO BID, #30 TAB Sertraline HCl (Sertraline HCl) 100 Mg Tab 100 MG PO DAILY for 30 Days, #30 TAB 2 Refills Discontinued Medications: Digoxin (Digoxin) 0.125 Mg Tab 0.125 MG PO DAILY for 30 Days, #30 TAB 2 Refills Admission Information HPI (per Admitting provider): : This 65-year-old male with past medical history significant for diabetes, nonischemic cardiomyopathy with EF of around 15-20%, status post ICD, history of CAD, history of gout, hyperlipidemia, hematuria, history of adjustment disorder, history of multiple amputations of his fingers, history of rheumatic fever, history of MRSA infection, hypertension, hypothyroidism, history of lung nodule, history of MSSA bacteremia in year 2016 with amputation of the right index finger which had I and D done a couple of times and was on long-term antibiotics, comes today because of confusion and his right middle finger is swollen, erythematous and looks necrotic and gas bubbles seen on x-ray, . The patient was in sepsis with low blood pressure and a temp spike and tachycardia and altered mental status.In the Er fluid bolus, as per sepsis protocol was given and his blood pressure improved. Temperature came down, his tachycardia improved and mental status also improved with subsequent dosing of daptomycin and clindamycin and Zosyn. ER physician talked to the Hand surgeon and is planned for OR today and we are called for admission. The patient will be admitted to ICU for further management and care. Because of his blood pressure is on the borderline, he got another 500 mL of bolus in the ER. We will continue normal saline 100 mL per hour and if blood pressure drops, will start on pressors. The patient currently alert and awake; can tell his name, can tell the name of the hospital, could not tell the date. Denies any chest pain. Denies shortness of breath. Denies headache or dizziness or nausea, denies vomiting, denies abdominal pain. Somewhat rolling in the bed, restless. could not able to reach his . The patient says he lives with his .Later came to hospital and says right middle finger seems to be infected since last few days and yesterday she noticed it turning black and decided to bring him to hospital on Monday but today morning he was confused and running temp and was brought to ER. Physical Exam (per Admitting): GENERAL: The patient is obese, somewhat mildly restless. VITAL SIGNS: T-max is 39.6; pulse rate when he came in was 132, currently 105; blood pressure when he came in was 95/53, currently 89/53; oxygen saturation is 98% on nasal cannula. HEENT: No pallor, no icterus. NECK: No JVD, no neck masses. CARDIOVASCULAR: S1, S2 heard. Tachycardia. No murmurs, regular. RESPIRATORY SYSTEM: Normal AP diameter. No accessory muscle use. No wheezing, no crackles. ABDOMEN: Soft, bowel sounds present. No distention. Nontender. CENTRAL NERVOUS SYSTEM: Alert and awake, oriented x2. Moves extremities. Somewhat confused. Nonfocal. EXTREMITIES: Status post left above knee amputation; right middle finger is erythematous, swollen and necrotic. Hospital Course Presented with Severe sepsis/septic shock Most likely from the necrotic, gangrenous middle right finger Orthopedics was consulted s/p right middle finger amputation and I&D of hand on 10/24 ID on board Received Zosyn, daptomycin and clindamycin (for 48hrs for potential antitoxin agents) Zosyn change to Bactrim (on 10/31/16) as per ID blood cultures from 10/23 with MSSA repeat blood cultures from 10/24 negative wound cultures growing providencia, staphylococcus, streptococcus pt/ot to continue Bactrim for 6 weeks and followup in wound clinic and ID on discharge stable currently plan for rehab today Diarrhea Cdiff negative loperamide PRN resolved recheck for c diff negative probiotics will monitor Acute respiratory failure secondary to metabolic encephalopathy intubated 10/23 - 10/26 s/p extubation stable Acute renal failure possibly related to sepsis baseline creatinine is around 1.3-1.4 cr 1.8 today continue holding losartan Holding Lasix to hold lasix and losartan for couple of days and restart f/u labs in 5-7 days with pcp History of nonischemic cardiomyopathy ejection fraction around 15-20% On aspirin, atorvastatin, metoprolol, ISMN, furosemide holding losartan, lasix and metolazone until renal function returns to baseline holding Lasix and losartan for couple of days and restart to check labs in 5-7 days and if renal function worsens to d/w cardiology regarding diuretic dosage. Dysphagia seen by speech and recommends mechanical soft and nectar thickened fluids. SLIPPERY, NO STRAWS not tolerating nectar thick liquids d/w Speech-patient apparently using more than required thickening agent. Tolerating better after using less thickened fluids needs continued speech therapy f/u with speech therapy in rehab Elevation troponin likely due to demand ischemia from sepsis and ARF TTE showing no change from previous stable Type 2 DM hba1c 9.6 On insulin glycemic pharmacy consulted f/u with pcp Hypothyroidism On Synthroid Discharged to [facility] Total time spent on discharge = 45MINUTES This includes examination of the patient, discharge planning, medication reconciliation, and communication with other providers. Discharge Instructions Please take this sheet to every appointment for the next month Discharge Instructions Date of Service Nov 08, 2016. Admission Reason for Admission: Septic Shock Discharge Discharge Diagnosis / Problem: septic shock, necrotic right third finger s/p amputation Discharge Goals Goal(s): Decrease discomfort, Improve function Activity Recommendations Activity Level: Assistance Required Therapies: Physical Therapy, Occupational Therapy, Speech Therapy . Additional Information Patient informed of condition: Yes Advance Directives: Yes DNR: No Level of Care: Acute Rehab Communicable Disease: No Prognosis: Stable Newby Catheter: No Instructions / Follow-Up Instructions / Follow-Up FOLLOWUP WITH FAMILY DOCTOR ONE WEEK FROM DISCHARGE FROM REHAB FOLLOWUP WITH CARDIOLOGY IN ONE WEEK FOLLOWUP WITH HAND SURGERY DR.Christopher Jerman Henriquez IN ONE WEEK FOLLOWUP WITH WOUND CLINIC AND INFECTIOUS DISEASE AT WOUND CLINIC IN 1-2 WEEKS DAILY DRESSING OF THE WOUNDS IN RIGHT HAND AND NECK. HOLD LASIX AND LOSARTAN FOR COUPLE OF DAYS AND RESTART THEM AT HOME DOSE. LAB: BMP IN 5-7 DAYS AND FOLLOW RESULTS WITH FAMILY DOCTOR. RESTART OF DIGOXIN PER CARDIOLOGY WITH FOLLOWUP OF LABS. IF RENAL FUNCTION WORSENS TO DISCUSS WITH CARDIOLOGY ABOUT DIURETICS. SPEECH RECOMMENDATIONS: Speech Therapy Discharge Instructions * 1.Mechanical soft diet, slippery, and NECTAR thick liquids. May have ice chips prn for comfort. Oral care must be completed prior to providing ice chips. 2.Aspiration AND GERD precautions. Straws OK with small sips. Patient must be fully upright with p.o. intake, and remain fully upright 30-60 minutes after meal is complete. HOB should be elevated to 30 degrees at all times, which includes during times when he is sleeping. 3.Safe swallow strategies: Small bites, small single sips. Stringent oral care, which also includes brushing of his teeth and all surfaces of the mouth to prevent aspiration of bacteria in saliva. 4.Consider a trial of dysphagia therapy, with focus on thermal stimulation to improve swallow reflex time. Would also benefit from continued speech at discharge for further education and training on diet and safe swallow strategies. Current Hospital Diet Patient's current hospital diet: AHA Diet (Heart Healthy), Diabetes Type 2 Diet Discharge Diet Recommended Diet: AHA Diet (Heart Healthy), Diabetes Type 2 Diet Diet Texture: Mechanical Soft (ground) Liquid Consistency: [place] Thick (slippery , no straws) Procedures Procedures Performed: Right Middle Finger Incision and Drainage and Amputation Pending Studies Studies pending at discharge: no Physician Orders On Transfer Special Precautions: FALL AND ASPIRATION PRECAUTIONS Vital Signs: EVERY 8HRS Additional Orders: Call your Primary Care doctor if any of the following symptoms or problems start or get worse: * Shortness of breath or difficulty breathing * Wake up at night short of breath * Chest pain * Cough * Swelling of your hands, feet, or legs * More fatigued or tired with your normal activity * Palpitations - sudden fast heart beats WEIGHT * Weigh yourself every morning after using the bathroom. * Use the same scale. * Wear the same amount of clothing. * Write your weight down on a chart. * Call your Primary Care doctor if you gain more than 2-3 pounds in 1-2 days. MEDICATIONS * Use this discharge instruction sheet for medication instructions. * Take your medications at the time your doctor ordered. * Do not skip a dose of your medicines. * If you miss a dose of medicine, take it as soon as possible, but DO NOT DOUBLE A DOSE. * Read your medicine information when you get home. * Know all of the side effects of your medicine. If in doubt, ask your pharmacist * Call your Primary Care doctor's office if you have any side effects. * Be sure all of your doctors know what medicine and herbs you take (including cold, flu, and herbal medicine). Take the following with you to your follow-up doctor appointments: * Weight Chart * Medication List * List of questions Do not drink excessive alcohol, beer or wine. Laboratory Results Hemoglobin A1c Test 10/24/16 04:34 Range/Units Estimated Average Glucose 229 mg/dl Hemoglobin A1c 9.6 H 4.5-5.6 % Medical Emergencies . Who to Call and When: Medical Emergencies: If at any time you feel your situation is an emergency, please call 911 immediately. . Non-Emergent Contact Non-Emergency issues call your: Primary Care Provider . . "Provider Documentation" section prepared by Francois Aviles. Core Measure Problem Core Measures: None
[2016-11-08 15:21] VITALS: BP 128/73; PULSE 68; TEMP 36.5; O2SAT 99
[2016-11-08] MEDS: SODIUM CHLORIDE 0.9% 1000ML 1,000 ML IV SCH (15:44)
[2016-11-16] MEDS ORDERED: NVLG SQ (14:17)
[2016-11-16] MEDS ORDERED: INSDGI SC (14:17)
[2016-11-16] MEDS ORDERED: INSDGI SQ (14:17)
--- NOTE | 2017-01-20 12:20 | Pharmacy Progress Note ---
Pharmacy Abx Initial Consult Date of Service January 20, 2017. Pharmacy Dosing Scope Date of Consult: 01/20/17 Consultation requested by: Dr. Durbin Pharmacy is consulted to initiate Vancomycin IV dosing therapy, order appropriate labs and adjust drug dose/frequency. Subjective The patient is a 66 year old male admitted on Oct 23, 2016 at 12:41. Patient presented with dyspnea and chest pain. Objective Height (Feet): 5 Height (Inches): 10.00 Weight (Kilograms): 115.800 Risk Factors for Resistance * Hospitalization for 48 hours or more within the past 90 days: admitted to [facility] 10/23/16 - 11/08/16 * History of infection with a multidrug-resistant organism: h/o of MRSA per MD progress notes * Antimicrobial use within the last 90 days: during admission, the patient received Dapto + Zosyn + Clinda (x48h for anti-toxin effect) and was discharged on Bactrim DS BID for 6 weeks Assessment & Plan Assessment 66 year old male admitted with dyspnea and CP s/p placement of PleurX catheter. Patient was started on empiric Vancomycin IV for right hand incision wound infection, r/o osteo - s/p middle finger amputation on 10/24/16 * culture from finger abscess on 10/23/16 grew MSSA, Providencia (resistant to Unasyn, Bactrim, Cefuroxime), Prevotella and gamma strep not enterococcus. 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 Scr increased from 1.8 to 2.5 mg/dL today. Baseline appears to be around 1.6 mg/dL. Further dosing will be based on random level and Scr on 01/21 * Goal trough level for wound infection, r/o osteo : 15 to 20 mcg/mL * Random level ordered for 01/21/17 Pharmacy will continue to follow and will adjust dose/frequency as necessary. Thank you.
[2017-02-01] MEDS ORDERED: KFL500 PO (10:05)
[2017-02-01] MEDS ORDERED: ULT50X PO (10:05)
[2017-03-29] MEDS ORDERED: LVMIPEN SC (16:31)
[2017-03-29] MEDS ORDERED: LVMIPUC SQ (17:32)
== END 2016-11-08 17:17 | DRG 853 ==
LOC: ENRESERVDT → ENRESERVTM → EDBD 10:06 → C.EDB 10:09 → C.MSICU 12:41 → EDBEDREQ 12:43 → CANBEDREQ 10-27 10:37 → C.2E 10-27 14:02 → C.MSW 10-30 12:26 → EDBEDREQ 10-30 12:38
PROVIDERS: ADMIT Internal Medicine; ATTEND Internal Medicine
PROC: 5A1945Z Respiratory Ventilation, 24-96 Consecutive Hours (ICD-10-PCS; 2016-10-23)
PROC: 03HY32Z Insertion of Monitoring Device into Upper Artery, Percutaneous Approach (ICD-10-PCS; 2016-10-23)
PROC: 02HV33Z Insertion of Infusion Device into Superior Vena Cava, Percutaneous Approach (ICD-10-PCS; 2016-10-23)
PROC: 0BH18EZ Insertion of Endotracheal Airway into Trachea, Via Natural or Artificial Opening Endoscopic (ICD-10-PCS; 2016-10-23)
PROC: 0JDJ0ZZ Extraction of Right Hand Subcutaneous Tissue and Fascia, Open Approach (ICD-10-PCS; principal; 2016-10-23 15:00)
PROC: 0X6Q0Z0 Detachment at Right Middle Finger, Complete, Open Approach (ICD-10-PCS; principal; 2016-10-23 15:00)
DX: A41.9 Sepsis, unspecified organism (principal); R65.21 Severe sepsis with septic shock; I42.9 Cardiomyopathy, unspecified; I50.20 Unspecified systolic (congestive) heart failure; N17.9 Acute kidney failure, unspecified; E11.52 Type 2 diabetes mellitus with diabetic peripheral angiopathy with gangrene; J96.01 Acute respiratory failure with hypoxia; I24.8 Other forms of acute ischemic heart disease; G93.41 Metabolic encephalopathy; F43.21 Adjustment disorder with depressed mood; Z95.810 Presence of automatic (implantable) cardiac defibrillator; I10 Essential (primary) hypertension; E11.319 Type 2 diabetes mellitus with unspecified diabetic retinopathy without macular edema; Z86.14 Personal history of Methicillin resistant Staphylococcus aureus infection; M10.9 Gout, unspecified; E03.9 Hypothyroidism, unspecified; Z83.3 Family history of diabetes mellitus; Z79.4 Long term (current) use of insulin; E78.5 Hyperlipidemia, unspecified; R31.9 Hematuria, unspecified; L03.011 Cellulitis of right finger; B95.61 Methicillin susceptible Staphylococcus aureus infection as the cause of diseases classified elsewhere

== ENCOUNTER → 2016-11-17 | Outpatient (CLI) | payer BC ==
[~2016-11-17] MED LIST changes: +ACET-1256 PO; -ALBU1AER9 INH; +ALLO100T PO; -CEPH500C2 PO; -CLOP1TAB5 PO; +FURO-85 PO; +FURO80TA63 PO; +IMD/2 PO; +INSDGI SC; +INSDGI SQ; -INSDGIPEN SQ; -INSUINJ7 SC; +INSULIN REGULAR SQ; +KFL500 PO; +LACTCAP3 PO; +LIDO2SOL19 TOP; -LNX125 PO; +LVMI SQ; +LVMIPEN SC; +LVMIPUC SQ; +MCR5 PO; +MULT-513 PO; +NVLG SQ; +NVLRPUC SQ; +NYST100010 TD; +SENN-65 PO; +SERT50TA PO; +SULF800T23 PO; +ZLF/100 PO
--- NOTE | 2016-11-17 14:54 | DIAGNOSTIC IMAGING REPORT ---
MODIFIED BARIUM SWALLOW CLINICAL HISTORY: Silent tracheal aspiration on prior exam. COMPARISON STUDY: Modified barium swallow November 01, 2016. FLUOROSCOPY TIME: 1.6 minutes. FINDINGS: No aspiration was identified with thin liquids, nectar thick liquids, pudding or crackers with paste. Mild premature spillage was noted. There was prolonged mastication with crackers with paste. IMPRESSION: 1. No tracheal aspiration identified. 2. Full recommendations by speech pathology to follow. Electronically signed by: Ramesh Ham M.D. 11/17/2016 2:53 PM Dictated Date/Time: 11/17/2016 2:51 PM
--- NOTE | 2016-11-17 17:15 | SWALLOWING EVALUATION ---
REFERRING SPEECH PATHOLOGIST: Mima Horvath MS, CCC-HOGSHEAD OPENER/L HISTORY: This 66 year-old man, currently an inpatient at [facility] ([facility]), was referred for a VFSS at [facility] in order to determine readiness for thin liquids. The patient has a PMH significant for recent admission at the end of October for septic shock related to having a gangrenous finger that required amputation. The course of the stay was complicated by the patient's altered mental status and onset of dysphagia requiring use of nectar-thick liquids to prevent aspiration. A VFSS was completed 11/01/2016 that confirmed the need for thickened liquids; however the patient is not agreeable to using the thickened liquids and it has been a struggle. PROCEDURE: The patient was seen in the Radiology Department of [facility] for the VFSS. Cursory examination of the oral cavity revealed sparse dentition. Movement of the articulators was WNL. The patient was seated upright in a wheelchair and was viewed in the lateral plane. Could not get AP view due to metal in w/c back. In the lateral plane, the patient was given the following boluses: 1 tsp. thin liquid barium x 2, single swallow thin liquid barium self-presented from a cup, sequential swallows of thin liquid barium self-presented from a straw, 1 tsp. nectar-thick liquid barium, single swallow nectar-thick liquid barium self-presented from a straw, 1 tsp. barium pudding, and 1 club cracker with barium pudding. The patient drank a single swallow thin liquid barium self-presented from a straw as liquid wash. RESULTS: Oral Stage: Lip closure, lingual control during bolus hold, and bolus transport were WNL. Mastication was prolonged and there was residue collection on the tongue after the swallow requiring liquid wash to clear. Initiation of the pharyngeal swallow occurred when the bolus head was in the valleculae. Oral stage of swallow was functionally WNL. Pharyngeal Stage: Soft palate elevation, laryngeal elevation, anterior hyoid excursion, epiglottic inversion and laryngeal vestibular closure were all complete. Pharyngeal stripping wave was present. Duration and distention of PES opening was complete. Tongue base retraction was adequate. No significant pharyngeal bolus retention after the swallow. There was no penetration or aspiration during this study. SUMMARY/RECOMMENDATIONS: This patient presents with normal oral-pharyngeal swallowing mechanics. The following is recommended: 1. Regular diet as tolerated; THIN liquids 2. General aspiration precautions; straws okay A summary of the results and recommendations was recorded on a Consultation Record and returned with the patient immediately following the study. The patient was also given the results verbally. Thank you for referral of this patient. Please contact me at if any additional information is needed.
== END | disposition home or self-care (01) ==
LOC: C.RAD 13:47
PROVIDERS: ATTEND Internal Medicine
DX: R13.10 Dysphagia, unspecified (principal)

== ENCOUNTER 2016-11-19 22:22 | Emergency (ER) | payer BC ==
[~2016-11-19] VITALS: Ht 177.8 cm; Wt 70.5 kg
[~2016-11-19 22:22] MED LIST changes: -ACET-1256 PO; -ALLO100T PO; -FURO-85 PO; -FURO80TA63 PO; -IMD/2 PO; -INSULIN REGULAR SQ; -KFL500 PO; -LACTCAP3 PO; -LIDO2SOL19 TOP; -LVMIPEN SC; -LVMIPUC SQ; -MCR5 PO; -MULT-513 PO; -NVLRPUC SQ; -NYST100010 TD; -SENN-65 PO; -SERT50TA PO; -ULT50X PO; -ZLF/100 PO
[2016-11-19 22:32] VITALS: TEMP 36.9; Ht 177.8 cm; Wt 70.5 kg
[2016-11-19] MEDS ORDERED: SODIUM CHLORIDE 0.9% 1000ML 1,000 ML IV STA (23:00)
[2016-11-19] MEDS ORDERED: SODIUM CHLORIDE 0.9% 500ML 500 ML IV STA (23:00)
[2016-11-19 23:09] LABS: BASO % 0.3 %; BASO ABS # 0.03 K/uL (0-0.2); COMPLETE YES; EOS % 4.3 %; HEMATOCRIT 30.9 % (42-52); IG% 0.6 %; LYMPH % 21.1 %; LYMPH ABS # 1.89 K/uL (1.2-3.4); MEAN CELL VOLUME 83.3 fL (80-100); MEAN CORPUSCULAR HEMOGLOBIN 29.6 pg (25-34); MEAN CORPUSCULAR HGB CONC 35.6 g/dl (32-36); MEAN PLATELET VOLUME 9.4 fL (7.4-10.4); MONO % 5.7 %; PLATELET COUNT 248 K/uL (130-400); RED BLOOD COUNT 3.71 M/uL (4.7-6.1); WHITE BLOOD COUNT 8.97 K/uL (4.8-10.8)
[2016-11-19 23:24] LABS: BUN/CREATININE RATIO 38.6 (10-20); CALCIUM 8.7 mg/dl (8.5-10.1); CREATININE 2.2 mg/dl (0.60-1.40); POTASSIUM 3.6 mmol/L (3.5-5.1)
[2016-11-19 23:25] LABS: PARTIAL THROMBOPLASTIN RATIO 1.2; PROTHROMBIN TIME (PATIENT) 10.4 SECONDS (9.0-12.0)
[2016-11-19 23:26] LABS: ALB/GLOB RATIO 0.5 (0.9-2)
[2016-11-20] MEDS ORDERED: LACTCAP3 PO (02:55)
[2016-11-20] MEDS ORDERED: MULT-513 PO (03:08)
[2016-11-20] MEDS ORDERED: SERT50TA PO (03:09)
[2016-11-20] MEDS ORDERED: SULF800T23 PO (03:10)
[2016-11-20] MEDS ORDERED: FURO-85 PO (03:13)
[2016-11-20] MEDS ORDERED: ACET-1256 PO (03:16)
[2016-11-20] MEDS ORDERED: LIDO2SOL19 TOP (03:18)
[2016-11-20] MEDS ORDERED: IMD/2 PO (03:20)
[2016-11-20] MEDS ORDERED: NYST100010 TD (03:22)
[2016-11-20] MEDS ORDERED: SENN-65 PO (03:23)
[2016-11-20 03:24] LABS: BUN/CREATININE RATIO 38.8 (10-20); CALCIUM 8.8 mg/dl (8.5-10.1); CREATININE 2.1 mg/dl (0.60-1.40); POTASSIUM 3.5 mmol/L (3.5-5.1)
--- NOTE | 2016-11-20 03:47 | EMERGENCY ROOM VISIT NOTE ---
History First contact with patient: 22:50 Chief Complaint: NEED IV START Stated Complaint: NEEDS IV ACCESS History of Present Illness The patient is a 66 year old male who presents to the Emergency Room with complaints of elevated BUN and creatinine. Patient is at [facility] for rehabilitation after being in septic shock from a gangrenous finger that was amputated by orthopedics. Patient also has C. difficile. Patient denies chest pain, dyspnea, abdominal pain, vomiting, fever, chills. He states he still has been having diarrhea unchanged. Review of Systems See HPI for pertinent positives & negatives. A total of 10 systems reviewed and were otherwise negative. Past Medical/Surgical History Medical Problems: (1) Abnormal EKG (2) Acute encephalopathy (3) Adjustment disorder with depressed mood (4) PATRICIA (acute kidney injury) (5) Amputation of right index finger (6) Bacteremia due to Gram-positive bacteria (7) Biventricular ICD (implantable cardioverter-defibrillator) in place (8) CAD (coronary artery disease) (9) CHF (congestive heart failure) (10) Chronic systolic CHF (congestive heart failure) (11) Diabetic retinopathy (12) DM type 2 (diabetes mellitus, type 2) (13) DVT prophylaxis (14) Dyslipidemia (15) Elevated troponin I measurement (16) Gout (17) H/O hematuria (18) H/O: rheumatic fever (19) History of MRSA infection (20) HTN (hypertension) (21) Hypothyroidism (22) Lactic acidemia (23) Lung nodule (24) MSSA bacteremia (25) Need for intravenous access (26) Neuropathy (27) Nonischemic cardiomyopathy (28) Wound dehiscence Surgical Problems: (1) H/O amputation of lesser toe (2) History of amputation of finger of left hand (3) History of implantable cardioverter-defibrillator (ICD) placement (4) Hx of BKA (5) S/P cardiac cath (6) S/P coronary artery stent placement Family History Diabetes mellitus MOTHER FH: CAD (coronary artery disease) FATHER Social History Smoking Status: Never Smoker Drug Use: none Marital Status: Housing Status: lives with family Occupation Status: disabled Current/Historical Medications Scheduled Allopurinol (Zyloprim), 300 MG PO DAILY Aspirin (Aspirin Ec), 81 MG PO DAILY Atorvastatin (Lipitor), 80 MG PO DAILY Furosemide (Lasix), 20 MG PO BID Glyburide (Diabeta), 5 MG PO QAM Insulin Aspart (Novolog), SQ ACHS Insulin Glargine (Lantus), 82 UNITS SC QAM Insulin Glargine (Lantus), 92 UNITS SQ QPM Isosorbide Mononitrate Ext Rel (Imdur Ext Rel), 15 MG PO QAM Lactobacillus (Acidophilus), 1 CAP PO TIDM Levothyroxine Sodium (Synthroid), 50 MCG PO DAILY Losartan Potassium (Cozaar), 25 MG PO DAILY Metolazone (Zaroxolyn), 2.5 MG PO WK Metoprolol Succinate (Toprol Xl), 25 MG PO BID Multivitamins/Minerals (Mvi With Minerals), 1 TAB PO DAILY Sertraline (Zoloft), 100 MG PO QPM Sulfa/Trimethoprim (Bactrim Ds 800MG/160MG), 1 TAB PO BID Scheduled PRN Acetaminophen (Tylenol), 500 MG PO Q4H PRN for MILD PAIN # 1-3 OR TEMP>101F Loperamide Hcl (Imodium), 2 MG PO Q4H PRN for Diarrhea Nystatin (Topical) (Nystop), 1 APPLN TD BID PRN for UNDECIDED Senna/Docusate Sod (Senokot S), 1 TAB PO DAILY PRN for Constipation Allergies Coded Allergies: Gemfibrozil (Verified Allergy, Unknown, 10/23/16) Physical Exam Vital Signs Date Time Temp Pulse Resp B/P Pulse Ox O2 Delivery O2 Flow Rate FiO2 11/20/16 02:32 72 18 99/57 98 Room Air 11/20/16 00:27 75 18 105/43 98 Room Air 11/19/16 22:32 36.9 76 18 135/66 98 Room Air Physical Exam VITALS: Vitals are noted on the nurse's note and reviewed by myself. Vital signs stable. GENERAL: Pleasant male answering questions appropriately, in no acute distress, nondiaphoretic, well-developed well-nourished. SKIN: Right hand healing amputated finger with no signs of infection. The rest of the skin was without rashes, erythema, edema, or bruising. There is no tenting of the skin. Capillary reflex less than 2 seconds. HEAD: Normocephalic atraumatic. EARS: External auditory canals clear, tympanic membranes pearly jones without erythema or effusion bilaterally. EYES: Pupils equal round and reactive to light and accommodation. Conjunctivae without injection, sclerae without icterus. Extraocular movements intact. NOSE: Patent, turbinates without inflammation or discharge. MOUTH: Mucous membranes dry. Pharynx without erythema or exudate. Uvula midline. Airway patent. Tongue does not deviate. NECK: Supple without nuchal rigidity. No lymphadenopathy. No thyromegaly. Cervical spine is nontender. No JVD. HEART: Regular rate and rhythm LUNGS: Clear to auscultation bilaterally without wheezes, rales or rhonchi. No dullness to percussion. No retractions or accessory muscle use. ABDOMEN: Positive bowel sounds x 4. Normal tympanic percussion. Soft, nontender, without masses or organomegaly. Vicente sign negative. No guarding or rebound tenderness. MUSCULOSKELETAL: No muscle atrophy, erythema, or edema noted. NEURO: Patient was alert and oriented to person place and time. Normal sensation to light and sharp touch. No focal neurological deficits. Medical Decision & Procedures Laboratory Results 11/19/16 22:50 Red Blood Count 3.71, Mean Corpuscular Volume 83.3, Mean Corpuscular Hemoglobin 29.6, Mean Corpuscular Hemoglobin Concent 35.6, Mean Platelet Volume 9.4, Neutrophils (%) (Auto) 68.0, Lymphocytes (%) (Auto) 21.1, Monocytes (%) (Auto) 5.7, Eosinophils (%) (Auto) 4.3, Basophils (%) (Auto) 0.3, Neutrophils # (Auto) 6.10, Lymphocytes # (Auto) 1.89, Monocytes # (Auto) 0.51, Eosinophils # (Auto) 0.39, Basophils # (Auto) 0.03 11/20/16 02:50 Test 11/19/16 22:50 11/19/16 23:03 11/20/16 02:50 White Blood Count 8.97 K/uL (4.8-10.8) Red Blood Count 3.71 M/uL (4.7-6.1) Hemoglobin 11.0 g/dL (14.0-18.0) Hematocrit 30.9 % (42-52) Mean Corpuscular Volume 83.3 fL (80-100) Mean Corpuscular Hemoglobin 29.6 pg (25-34) Mean Corpuscular Hemoglobin Concent 35.6 g/dl (32-36) Platelet Count 248 K/uL (130-400) Mean Platelet Volume 9.4 fL (7.4-10.4) Neutrophils (%) (Auto) 68.0 % Lymphocytes (%) (Auto) 21.1 % Monocytes (%) (Auto) 5.7 % Eosinophils (%) (Auto) 4.3 % Basophils (%) (Auto) 0.3 % Neutrophils # (Auto) 6.10 K/uL (1.4-6.5) Lymphocytes # (Auto) 1.89 K/uL (1.2-3.4) Monocytes # (Auto) 0.51 K/uL (0.11-0.59) Eosinophils # (Auto) 0.39 K/uL (0-0.5) Basophils # (Auto) 0.03 K/uL (0-0.2) RDW Standard Deviation 44.3 fL (36.4-46.3) RDW Coefficient of Variation 14.5 % (11.5-14.5) Immature Granulocyte % (Auto) 0.6 % Immature Granulocyte # (Auto) 0.05 K/uL (0.00-0.02) Prothrombin Time 10.4 SECONDS (9.0-12.0) Prothromb Time International Ratio 1.0 (0.9-1.1) Activated Partial Thromboplast Time 30.1 SECONDS (21.0-31.0) Partial Thromboplastin Ratio 1.2 Total Bilirubin 0.3 mg/dl (0.2-1) Aspartate Amino Transf (AST/SGOT) 15 U/L (15-37) Alanine Aminotransferase (ALT/SGPT) 26 U/L (12-78) Alkaline Phosphatase 114 U/L (45-117) Total Protein 7.7 gm/dl (6.4-8.2) Albumin 2.7 gm/dl (3.4-5.0) Globulin 5.0 gm/dl (2.5-4.0) Albumin/Globulin Ratio 0.5 (0.9-2) Bedside Lactic Acid Venous 1.64 mmol/L (0.90-1.70) Anion Gap 9.0 mmol/L (3-11) Est Creatinine Clear Calc Drug Dose 34.5 ml/min Estimated GFR () 36.9 Estimated GFR (Non- 31.8 BUN/Creatinine Ratio 38.8 (10-20) Calcium Level 8.8 mg/dl (8.5-10.1) Date/Time Source Procedure Growth Status 11/20/16 00:00 Stool C.difficile Toxin B Gene (PCR) - Final Positive for C. difficile toxin B gene Complete Medications Administered Medications (Trade) Dose Ordered Sig/Ifeanyi Route Start Time Stop Time Status Last Admin Dose Admin Sodium Chloride 500 ml @ 999 mls/hr Q31M STAT IV 11/19/16 23:00 11/19/16 23:30 DC 11/19/16 23:14 999 MLS/HR Sodium Chloride (Nss 1000ml) 1,000 ml @ 125 mls/hr Q8H STAT IV 11/19/16 23:00 11/20/16 06:59 11/20/16 00:26 125 MLS/HR ED Course Prior records/ancillary studies reviewed and summarized above. Nursing notes reviewed. Additional history obtained from [facility]. The patient's history was concerning for elevated BUN and creatinine. Differential diagnosis: Etiologies such as metabolic, infection, hypo/hyperglycemia, electrolyte abnormalities, cardiac sources, intracerebral event, toxicologic, neurologic, as well as others were entertained. Physical examination: As above. ER treatment provided: IV Lock IV fluids On reassessment the patient felt better. Diagnostics interpretation by me: ECG: Paced and regular rhythm with no acute ST-T wave changes with rate of 79. Impression paced ventricular rhythm interpreted by myself The labs revealed elevated BUN and creatinine. Repeat BUN creatinine still unchanged after hydration. Positive C. difficile Consultation: A consultation was placed with the hospitalist, Dr Iyer. The case was discussed and diagnostics were reviewed. The patient was evaluated in the ER for further treatment. Exam and history seem consistent with dehydration most likely from the C. difficile diarrhea. Patient also has acute renal injury. He will be evaluated by medicine for possible admission. He was hydrated as above. He is given Flagyl.By the evaluation outlined above emergent etiologies such as cardiac sources, intracerebral event, toxologic, neurologic, abnormalities blood glucose , as well as others were deemed relatively unlikely. The pt informed about the findings as listed above. All questions were answered and pleased with the treatment. Case reviewed with my attending. Medical Decision as above Impression Primary Impression: Dehydration Additional Impressions: Acute renal injury C. difficile diarrhea Departure Information Dispostion Being Evaluated By Hospitalist Condition FAIR Referrals [facility] (PCP) Patient Instructions My [facility] Problem Qualifiers
[2016-11-20] MEDS ORDERED: METRONIDAZOLE 250 MG TAB PO STA (03:48)
[2016-11-20 05:22] VITALS: BP 115/61; PULSE 72; O2SAT 98
--- NOTE | 2016-11-20 08:13 | INTERNAL MEDICINE CONSULTATION ---
DATE OF CONSULTATION: 11/20/2016 PRIMARY CARE PHYSICIAN: Dr. Addison. Patient seen at request of Dr. Zheng and Miss Maritza Lopez PA-C for evaluation of acute renal failure. HX obtained from px and records. 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 Recent confinement last from 10/23/2016 to 11/08/2016 for septic shock secondary to necrotic right middle finger status post surgery. Blood cultures grew MSSA. The patient discharged to [facility] on Bactrim course for 3 more weeks. Creatinine on discharge was noted to be 1.8. Patient still had diarrhea symptoms on discharge, stool C. dif testing was negative. Continuous diarrhea at [facility], 3x day. Non-bloody, no abd pain, no vomiting, no fever, no chills. Appetite well. Patient denies chest pain, shortness of breath. outpatient labs on November 18 serum creatinine was noted to be 2.3. Patient's home ARB, Zaroxolyn held by [facility] physician. Lasix decreased in dose. Px ordered for IV fluids. Difficulty with IV access. Stool C. diff done at rehab positive as of yesterday as per staff. No treatment initiated yet as per staff. Px sent to the Emergency Room for IV access. Patient given fluid bolus in the Emergency Room. Patient given PO Flagyl first dose in the Emergency Room for Cdif diarrhea. MEDICAL HISTORY: As above. SURGERIES: Amputation, orthopedic procedures, ICD placement HOME MEDICATIONS at R: multivitamin, Zoloft, NovoLog, Lantus, Imdur, Lactinex, Synthroid, citalopram, aspirin, Tylenol, Lipitor, DiaBeta. Lasix, Bactrim for one more week ALLERGIES: GEMFIBROZIL. FAMILY HISTORY: Diabetes. 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 REVIEW OF SYSTEMS: As per HPI. All other ROS negative. PHYSICAL EXAMINATION: VITAL SIGNS: Blood pressure was noted to be 105/43, pulse rate 80, RR 18, temperature 37, O2 sats 98 on room air. GENERAL: Noted to be comfortable, no respiratory distress, pleasant. SKIN: Pallor. HEENT: Pale palpebral conjunctivae. Dry mucosa. NECK: Short neck. LUNGS: Decreased breath sounds. HEART: Diminished S1, S2. ABDOMEN: Some distention. NT EXTREMITIES: No edema, no tenderness. Healed amputation stumps, hands. NEUROLOGIC: No gross focality. LABS: Hemoglobin was noted to be 11, WBC 9, platelets 248. Sodium 136, potassium 3.5, CO2 24, BUN 81, creatinine 2.1, glucose was noted to be 175. Stool C. diff was positive. ASSESSMENT: 1. Acute renal failure on CRI multifactorial : dehydration secondary to untreated Cdif diarrhea. No sepsis. home meds (Lasix, Bactrim) some improvement of kidney function after IV fluid bolus in the ER. 2. chronic systolic HF sp ICD, px on the dry side 3. hx sepsis 2 to digital gangrene sp surgery ongoing Bactrim course RECOMMENDATIONS: Option of inpatient observation versus returning to rehab facility given to patient. Px chose the latter. Agree with holding Zaroxolyn, losartan interim. Hold home Lasix for now Repeat renal profile on November 22, 2016. Resume home losartan, diuretic rx once serum crea at baseline (1.4-1.8 as per records) Appropriate to discontinue outpx Bactrim course given kidney dysfunction. Recommend Doxycycline 100 mg b.i.d. as a Bactrim replacement for remaining 7 days of prescribed tx duration. Lactose free, diabetic diet. Flagyl 500 mg p.o. t.i.d. for 10 days for cdif. Discharge back to [facility] with IV access obtained in the ER for potential use for additional IV hydration. Return to ER for worsening hydration status or abdominal pain, N/V, fever sx. I will touchbase with Dr. Card ([facility] rehab physician) this AM regarding px disposition. PX expressed understanding and was amenable to the plan of care. Thank you very much for this consultation. RENETTA
--- NOTE | 2016-11-21 14:55 | EMERGENCY ROOM VISIT NOTE ---
ED Visit Note First contact with patient: 22:50 I have personally evaluated this patient and reviewed the pertinent labs and data. I have discussed the case with Maritza Lopez the physician research assistant and agree with the plan. Please refer to the PA note This patient is currently in the rehabilitation center after suffering sepsis. He's had ongoing diarrhea secondary to C. difficile. It was noted in the ER that his BUN and creatinine have gotten elevated were his BUNs in the 80s. His creatinine is 2.2. IV access established and he was hydrated with IV normal saline. He is feeling well. His vital signs are stable. Given his worsening renal insufficiency and concern for hydration we have consulted Dr. Reddy to see him in the ER for possible admission.
[2017-02-01] MEDS ORDERED: ULT50X PO (10:05)
[2017-02-01] MEDS ORDERED: KFL500 PO (10:05)
[2017-03-29] MEDS ORDERED: LVMIPEN SC (16:31)
[2017-03-29] MEDS ORDERED: LVMIPUC SQ (17:32)
== END 2016-11-20 05:22 | disposition home or self-care (01) ==
LOC: EDBD 22:22 → C.EDB 22:23
DX: E86.0 Dehydration (principal); N17.9 Acute kidney failure, unspecified; A04.7 Enterocolitis due to Clostridium difficile; I25.10 Atherosclerotic heart disease of native coronary artery without angina pectoris; I50.9 Heart failure, unspecified; E11.319 Type 2 diabetes mellitus with unspecified diabetic retinopathy without macular edema; Z86.718 Personal history of other venous thrombosis and embolism; E78.5 Hyperlipidemia, unspecified; M10.9 Gout, unspecified; I10 Essential (primary) hypertension; E03.9 Hypothyroidism, unspecified; Z89.021 Acquired absence of right finger(s); Z89.022 Acquired absence of left finger(s); Z89.529 Acquired absence of unspecified knee; Z95.810 Presence of automatic (implantable) cardiac defibrillator; Z83.3 Family history of diabetes mellitus; Z82.49 Family history of ischemic heart disease and other diseases of the circulatory system; Z79.82 Long term (current) use of aspirin; Z79.4 Long term (current) use of insulin; Z79.2 Long term (current) use of antibiotics; Z79.899 Other long term (current) drug therapy

== ENCOUNTER 2017-01-19 05:07 | Inpatient (IN) | payer BC, OTHER ==
[~2017-01-19] VITALS: Ht 177.8 cm; Wt 120.7 kg
[~2017-01-19 05:07] MED LIST changes: +ACET-1256 PO; +FURO-85 PO; +IMD/2 PO; +LACTCAP3 PO; -LCTX PO; -LSX/80 PO; -LVMI SQ; +METO-478 PO; -METO1TAB31 PO; +MULT-513 PO; +NYST100010 TD; +SENN-65 PO; -SERT1TAB92 PO; +SERT50TA PO
--- NOTE | 2017-01-19 05:22 | EMERGENCY ROOM VISIT NOTE ---
History Report prepared by Cuongibmerry: Fransico Wells Under the Supervision of: Trudi SimO. First contact with patient: 05:07 Chief Complaint: ABDOMINAL PAIN Stated Complaint: ABD PAIN History of Present Illness The patient is a 66 year old male who presents to the Emergency Room via EMS with complaints of severe right sided chest pain radiating to the right flank starting this morning. About 2 weeks ago, he had a fall when he got up from the toilet, lost his balance, and hit the right side of his body on the sink. His refused to bring him to the Emergency Room after the fall. He denies shortness of breath, nausea, vomiting, or any other complaints. He takes baby aspirin daily but denies any other blood thinners. He has a history of diabetes but his does not check his blood sugar levels. He was recently evaluated for sepsis. He has a history of MRSA. Source of History: patient Onset: this morning Position: chest (right) Symptom Intensity: severe Associated Symptoms: No SOB, No nausea, No vomiting Review of Systems See HPI for pertinent positives and negatives. A total of ten systems were reviewed and were otherwise negative. Past Medical & Surgical Medical Problems: (1) Abnormal EKG (2) Acute encephalopathy (3) Adjustment disorder with depressed mood (4) PATRICIA (acute kidney injury) (5) Amputation of right index finger (6) Bacteremia due to Gram-positive bacteria (7) Biventricular ICD (implantable cardioverter-defibrillator) in place (8) CAD (coronary artery disease) (9) CHF (congestive heart failure) (10) Chronic systolic CHF (congestive heart failure) (11) Diabetic retinopathy (12) DM type 2 (diabetes mellitus, type 2) (13) DVT prophylaxis (14) Dyslipidemia (15) Elevated troponin I measurement (16) Gout (17) H/O hematuria (18) H/O: rheumatic fever (19) History of MRSA infection (20) HTN (hypertension) (21) Hypothyroidism (22) Lactic acidemia (23) Lung nodule (24) MSSA bacteremia (25) Need for intravenous access (26) Neuropathy (27) Nonischemic cardiomyopathy (28) Wound dehiscence Surgical Problems: (1) H/O amputation of lesser toe (2) History of amputation of finger of left hand (3) History of implantable cardioverter-defibrillator (ICD) placement (4) Hx of BKA (5) S/P cardiac cath (6) S/P coronary artery stent placement Family History Diabetes mellitus MOTHER FH: CAD (coronary artery disease) FATHER Social History Smoking Status: Never Smoker Drug Use: none Marital Status: Housing Status: lives with family Occupation Status: disabled Current/Historical Medications Scheduled Allopurinol (Zyloprim), 300 MG PO DAILY Aspirin (Aspirin Ec), 81 MG PO DAILY Atorvastatin (Lipitor), 80 MG PO DAILY Furosemide (Lasix), 80 MG PO BID Glyburide (Diabeta), 5 MG PO QAM Insulin Detemir (Levemir), 80 UNITS SQ BID Insulin Human Regular (Novolin R), 3 UNITS SQ [employer]AKFA[employer] Isosorbide Mononitrate Ext Rel (Imdur Ext Rel), 15 MG PO QAM Levothyroxine Sodium (Synthroid), 50 MCG PO DAILY Losartan Potassium (Cozaar), 25 MG PO DAILY Metolazone (Zaroxolyn), 2.5 MG PO WK Metoprolol Succinate (Toprol Xl), 25 MG PO BID Sertraline (Zoloft), 100 MG PO DAILY [Relion R Insulin], 6 UNITS SQ AC Allergies Coded Allergies: Gemfibrozil (Verified Allergy, Unknown, 10/23/16) Physical Exam Vital Signs Date Time Temp Pulse Resp B/P Pulse Ox O2 Delivery O2 Flow Rate FiO2 01/19/17 06:29 94 20 95/59 95 Room Air 01/19/17 06:24 95 20 86/51 93 Room Air 01/19/17 05:34 36.8 86 22 90/52 96 Room Air 01/19/17 05:34 96 Room Air 01/19/17 05:34 96 Room Air 01/19/17 05:25 84 Physical Exam GENERAL: Awake, alert, ill-appearing, in no distress HENT: Normocephalic, atraumatic. Oropharynx unremarkable. EYES: Normal conjunctiva. Sclera non-icteric. NECK: Supple. No nuchal rigidity. FROM. No JVD. RESPIRATORY: Decreased breath sounds bilaterally. CARDIAC: Regular rate, normal rhythm. Extremities warm and well perfused. Pulses equal. ABDOMEN: Soft, non-distended. Right upper quadrant and right lower quadrant tenderness to palpation. No rebound or guarding. No masses. RECTAL: Deferred. MUSCULOSKELETAL: Chest examination reveals no tenderness. The back is symmetrical on inspection without obvious abnormality. There is no CVA tenderness to palpation. No joint edema. UPPER AND LOWER EXTREMITIES: Calves are equal size bilaterally and non-tender. No edema. No discoloration. Right lower extremity excoriations and weeping wounds. Left hand amputations of the fingers, weeping wound left hand. NEURO: Normal sensorium. No sensory or motor deficits noted. SKIN: No rash or jaundice noted. Some ecchymosis to right flank. Skin is pale, cool, and diaphoretic. Medical Decision & Procedures ER Provider Diagnostic Interpretation: X-ray: Per my interpretation: CHEST X-RAY Large right pleural effusion , increased pulmonary markings bilaterally, pacemaker intact. Laboratory Results 01/19/17 05:30 Red Blood Count 3.42, Mean Corpuscular Volume 85.1, Mean Corpuscular Hemoglobin 29.5, Mean Corpuscular Hemoglobin Concent 34.7, Mean Platelet Volume 9.4, Neutrophils (%) (Auto) 74.7, Lymphocytes (%) (Auto) 17.8, Monocytes (%) (Auto) 4.9, Eosinophils (%) (Auto) 1.2, Basophils (%) (Auto) 0.4, Neutrophils # (Auto) 8.37, Lymphocytes # (Auto) 1.99, Monocytes # (Auto) 0.55, Eosinophils # (Auto) 0.14, Basophils # (Auto) 0.05 01/19/17 05:30 Test 01/19/17 05:29 01/19/17 05:30 01/19/17 05:37 Bedside Glucose 292 mg/dl (70-99) White Blood Count 11.21 K/uL (4.8-10.8) Red Blood Count 3.42 M/uL (4.7-6.1) Hemoglobin 10.1 g/dL (14.0-18.0) Hematocrit 29.1 % (42-52) Mean Corpuscular Volume 85.1 fL (80-100) Mean Corpuscular Hemoglobin 29.5 pg (25-34) Mean Corpuscular Hemoglobin Concent 34.7 g/dl (32-36) Platelet Count 279 K/uL (130-400) Mean Platelet Volume 9.4 fL (7.4-10.4) Neutrophils (%) (Auto) 74.7 % Lymphocytes (%) (Auto) 17.8 % Monocytes (%) (Auto) 4.9 % Eosinophils (%) (Auto) 1.2 % Basophils (%) (Auto) 0.4 % Neutrophils # (Auto) 8.37 K/uL (1.4-6.5) Lymphocytes # (Auto) 1.99 K/uL (1.2-3.4) Monocytes # (Auto) 0.55 K/uL (0.11-0.59) Eosinophils # (Auto) 0.14 K/uL (0-0.5) Basophils # (Auto) 0.05 K/uL (0-0.2) RDW Standard Deviation 44.6 fL (36.4-46.3) RDW Coefficient of Variation 14.3 % (11.5-14.5) Immature Granulocyte % (Auto) 1.0 % Immature Granulocyte # (Auto) 0.11 K/uL (0.00-0.02) Prothrombin Time 10.5 SECONDS (9.0-12.0) Prothromb Time International Ratio 1.0 (0.9-1.1) Anion Gap 4.0 mmol/L (3-11) Est Creatinine Clear Calc Drug Dose 53.1 ml/min Estimated GFR () 44.5 Estimated GFR (Non- 38.4 BUN/Creatinine Ratio 25.9 (10-20) Calcium Level 8.9 mg/dl (8.5-10.1) Total Bilirubin 0.4 mg/dl (0.2-1) Direct Bilirubin 0.1 mg/dl (0-0.2) Aspartate Amino Transf (AST/SGOT) 10 U/L (15-37) Alanine Aminotransferase (ALT/SGPT) 18 U/L (12-78) Alkaline Phosphatase 127 U/L (45-117) Total Protein 6.9 gm/dl (6.4-8.2) Albumin 3.2 gm/dl (3.4-5.0) Beta-Hydroxybutyric Acid 1.28 mg/dL (0.2-2.81) Bedside Troponin I 0.040 ng/ml (0-0.045) Laboratory results reviewed by me Medications Administered Medications (Trade) Dose Ordered Sig/Ifeanyi Route Start Time Stop Time Status Last Admin Dose Admin Furosemide (Lasix Inj) 40 mg NOW STAT IV 01/19/17 06:26 01/19/17 06:27 DC 01/19/17 06:26 40 MG Levofloxacin (Levaquin / D5W) 750 mg NOW ONCE IV 01/19/17 06:30 01/19/17 06:31 DC 01/19/17 06:30 750 MG ECG Indication: chest pain Rate (beats per minute): 83 Rhythm: normal sinus Findings: left axis deviation, other (inferior wall ME; no obvious current ischemia) ED Course 0507: The patient was evaluated in room A09B. A complete history and physical exam was performed. 0539: I reevaluated the patient. 06: Lasix Inj 40 mg IV 0630: Levofloxacin 750 mg IV 06: I discussed the patient's case with Dr. Iyer, from [facility]. Upon reexamination, the patient was resting comfortably. I discussed the test results and treatment plan with him. The patient will be evaluated for further management. Medical Decision Differential diagnosis includes but is not limited to unstable angina, acute coronary syndrome, acute ME, pneumothorax, hemothorax, rib fracture, intraabdominal strain. Pt in no distress; pt has large efuusion, ct shows DEEDEE moderate and right side rib fxs 8-12; ct abdomen - negative intraabdominal bleed; spoke with hospitalist for admission. Spoke with CT SURGERY Dr Martinez for eval of DEEDEE; will see patient today Consults Time Called: [phone] Consulting Physician: Dr. Iyer, from [facility] Returned Call: 630 I discussed the patient's case with Dr. Iyer, from [facility]. Impression Primary Impression: Pleural effusion, right Additional Impressions: Right-sided chest pain Hyperglycemia Hemothorax on right Multiple rib fractures Critical Care I have personally spent greater than [35] minutes of critical care time in the direct management of this patient. This includes bedside care, interpretation of diagnostic studies, and testing, discussion with consultants, patient, and family members, and other required patient management activities. This [35] minutes is in excess of all separately billable procedures. Scribe Attestation The scribe's documentation has been prepared under my direction and personally reviewed by me in its entirety. I confirm that the note above accurately reflects all work, treatment, procedures, and medical decision making performed by me. Departure Information Patient Instructions My [facility] Problem Qualifiers Additional Impressions: Multiple rib fractures Encounter type: initial encounter Laterality: right
[2017-01-19] MEDS ORDERED: SODIUM CHLORIDE 0.9% 1000ML 1,000 ML IV STA (05:30)
[2017-01-19 05:44] LABS: BASO % 0.4 %; BASO ABS # 0.05 K/uL (0-0.2); COMPLETE YES; EOS % 1.2 %; HEMATOCRIT 29.1 % (42-52); LYMPH % 17.8 %; LYMPH ABS # 1.99 K/uL (1.2-3.4); MEAN CELL VOLUME 85.1 fL (80-100); MEAN CORPUSCULAR HEMOGLOBIN 29.5 pg (25-34); MEAN CORPUSCULAR HGB CONC 34.7 g/dl (32-36); MEAN PLATELET VOLUME 9.4 fL (7.4-10.4); MONO % 4.9 %; NEUT % 74.7 %; PLATELET COUNT 279 K/uL (130-400); RED BLOOD COUNT 3.42 M/uL (4.7-6.1); WHITE BLOOD COUNT 11.21 K/uL (4.8-10.8)
[2017-01-19 05:56] LABS: PROTHROMBIN TIME (PATIENT) 10.5 SECONDS (9.0-12.0)
[2017-01-19 06:03] LABS: BUN/CREATININE RATIO 25.9 (10-20); CALCIUM 8.9 mg/dl (8.5-10.1); CREATININE 1.8 mg/dl (0.60-1.40); POTASSIUM 4.4 mmol/L (3.5-5.1)
[2017-01-19] MEDS ORDERED: INSULIN REGULAR SQ (06:05)
[2017-01-19] MEDS ORDERED: FURO80TA63 PO (06:06)
[2017-01-19] MEDS ORDERED: LVMI SQ (06:09)
[2017-01-19] MEDS ORDERED: NVLRPUC SQ (06:11)
[2017-01-19] MEDS ORDERED: FUROSEMIDE 40 MG/4 ML VIAL IV STA (06:26)
[2017-01-19] MEDS ORDERED: LEVAQUIN 750MG / 150ML D5W IV ONE (06:30)
--- NOTE | 2017-01-19 06:56 | DIAGNOSTIC IMAGING REPORT ---
CT OF THE CHEST WITH IV CONTRAST CLINICAL HISTORY: Right-sided chest pain status post trauma COMPARISON STUDY: 01/12/2016 TECHNIQUE: Following the IV administration of 106 mL of Optiray-320, CT of the thorax was performed from the thoracic inlet to the lung bases. Images are reviewed in the axial, sagittal, and coronal planes. IV contrast was administered without complication. CT DOSE: FINDINGS: Thyroid: Imaged portions of the thyroid gland are normal in appearance. Thoracic aorta: The thoracic aorta is normal in course and caliber, noting standard 3-vessel arch anatomy. No aneurysm or dissection is seen. Pulmonary vasculature: The pulmonary trunk is normal in caliber. There are no central filling defects identified to suggest pulmonary embolus. Note that this examination was not protocoled for the evaluation of pulmonary emboli. HEART: There are coronary artery calcifications. There is no significant pericardial effusion. The pacemaker is visualized. Lungs and pleural spaces: There is a large right-sided hemothorax. There is a stable 2 cm left lower lobe pulmonary nodule containing calcifications. There are compressive atelectatic changes within the right lower lobe right middle lobe and right upper lobe. Mediastinum: There is no evidence of pathologic mediastinal adenopathy. There are no findings to indicate a mediastinal hematoma. Michaela: There is no evidence of pathologic adenopathy Axilla: Clear. Upper abdomen: Partially visualized upper abdominal viscera is within normal limits. Skeletal structures: There are fractures of the right eighth, ninth, 10th and 11th ribs. IMPRESSION: 1. Acute displaced fractures of the right eighth through 11th ribs 2. Large right-sided hemothorax 3. Stable 2 cm partially calcified left lower lobe pulmonary nodule. Electronically signed by: Nasir Butts M.D. 01/19/2017 6:55 AM Dictated Date/Time: 01/19/2017 6:48 AM
--- NOTE | 2017-01-19 07:30 | DIAGNOSTIC IMAGING REPORT ---
ABDOMEN AND PELVIS CT WITH IV CONTRAST CT DOSE: 2399.40 mGy.cm HISTORY: Right-sided abdominal pain. Fall. TECHNIQUE: Multiaxial CT images of the abdomen and pelvis were performed following the use of intravenous contrast. COMPARISON STUDY: Chest CTA 01/12/2016. FINDINGS: There are displaced right eighth through 12th rib fractures. There is an associated large right hemothorax. This results in partial compression of the right lower lobe. There is a 2 cm partially calcified left lower lobe nodule. Evaluation of the right hemidiaphragm is suboptimal due to the adjacent hemothorax but likely intact. A 5 mm hypodense lesion within the left hepatic lobe is too small to characterize. No definite hepatic or splenic lacerations. The adrenal glands, gallbladder, and pancreas are unremarkable. Mild bilateral cortical renal thinning. No hydronephrosis. No retroperitoneal lymphadenopathy. Anterior abdominal wall subcutaneous irregular soft tissue areas favor prior medication injection. Mild bladder wall thickening. The prostate gland is enlarged. No bowel wall thickening or obstruction. IMPRESSION: 1. Displaced right eighth through 12th rib fractures. 2. Large right hemothorax. 3. Partially calcified 2 cm left lower lobe nodule. This remains unchanged. Electronically signed by: Man Hamlin M.D. 01/19/2017 7:29 AM Dictated Date/Time: 01/19/2017 7:23 AM
--- NOTE | 2017-01-19 07:37 | DIAGNOSTIC IMAGING REPORT ---
CHEST ONE VIEW PORTABLE HISTORY: Atypical CHEST PAIN COMPARISON: Chest 01/19/2017. FINDINGS: Respiratory motion. No pneumothorax. Moderate right pleural effusion. Left-sided pacemaker/defibrillator. The left lung remains clear. Right perihilar hazy airspace opacity. IMPRESSION: Moderate right pleural effusion with a right perihilar airspace opacity. Electronically signed by: Man Hamlin M.D. 01/19/2017 7:36 AM Dictated Date/Time: 01/19/2017 7:35 AM
[2017-01-19] MEDS ORDERED: LIDOCAINE HCL 1% 20 ML VIAL ONE (08:07)
[2017-01-19] MEDS ORDERED: GLUCOSE 10 TABS/TUBE PO PRN (08:15)
[2017-01-19] MEDS ORDERED: GLUCOSE 40% GEL 15 GM TUBE PO PRN (08:15)
[2017-01-19] MEDS ORDERED: ACETAMINOPHEN 325 MG TAB PO PRN (08:15)
[2017-01-19] MEDS ORDERED: GLUCAGON FOR INJ 1 MG VIAL SQ PRN (08:15)
[2017-01-19] MEDS ORDERED: ONDANSETRON INJ 2 MG/ML 2 ML VIAL IV PRN (08:15)
[2017-01-19] MEDS ORDERED: DEXTROSE 50% 50 ML SYR IV PRN (08:15)
[2017-01-19] MEDS ORDERED: PHARMACY GLYCEMIC MGMT CONSULT PRN (08:34)
[2017-01-19 08:55] LABS: ISTAT ARTERIAL BLOOD GAS HCO3 25 meq/L (19-24); ISTAT ARTERIAL BLOOD GAS PCO2 56 mmHg (35-46); ISTAT ARTERIAL BLOOD GAS PO2 < 32 mmHg (80-95); ISTAT ARTERIAL BLOOD GAS pH 7.25 (7.35-7.45); ISTAT CARBON DIOXIDE 26 mEq/l (24-31)
[2017-01-19] MEDS ORDERED: INSULIN GLARGINE SOLOSTAR 100 UNITS/ML 3 ML PEN SC SCH (09:00)
[2017-01-19] MEDS ORDERED: LEVOTHYROXINE 50 MCG TAB PO ONE (09:30)
[2017-01-19] MEDS ORDERED: ISOSORBIDE MONONITRATE 30 MG TABCR PO ONE (09:30)
[2017-01-19] MEDS ORDERED: METOPROLOL SUCC 25MG EXT REL TAB PO ONE (09:30)
[2017-01-19] MEDS ORDERED: ATORVASTATIN 40 MG TAB PO ONE (09:30)
[2017-01-19] MEDS ORDERED: SERTRALINE HCL 50 MG TAB PO ONE (09:30)
[2017-01-19] MEDS ORDERED: LOSARTAN POTASSIUM 25 MG TAB PO ONE (09:30)
[2017-01-19] MEDS ORDERED: INSULIN ASPART 100 UNITS/ML 3 ML PEN SC ONE (09:30)
[2017-01-19] MEDS ORDERED: ALLOPURINOL 300 MG TAB PO ONE (09:30)
[2017-01-19] MEDS ORDERED: FUROSEMIDE 80 MG TAB PO ONE (09:30)
--- NOTE | 2017-01-19 09:36 | History and Physical ---
History & Physical Date & Time of Service: January 19, 2017 at 08:30 Chief Complaint: Abd Pain Primary Care Physician: Kip Addison D.O. History of Present Illness Source: patient, clinic records 66 yo M with multiple medical problems presents to the ER today with worsening shortness of breath and pain on his R anterior chest area after a fall two weeks ago. He was found to have a large R-sided hemothorax on CT scan. He states that at baseline he ambulates with a walker (he also has a prosthesis for ambulation with only one leg) and he lost his balance and fell in his bathroom hitting his R side on the sink. He reports having pain at the time but didn't want to come to the hospital because "I didn't know what they could do for me and I had already been in the hospital for a long time." He was admitted in Oct-Nov 2016 for septic shock 2/2 a necrotic finger wound which was ultimately amputated. He then went to [facility] for rehab. After he returned home he states that he slipped and fell backwards on his driveway hitting his head. He feels some issues with lightheadedness have been present since that time, although states that the lightheadedness is not a new thing necessarily. He denies headaches or visual changes. This fall was before the fall two weeks ago. He appears disheveled and unkempt in the ER and reports that he doesn't know what his blood sugars have been because he "can't find my meter." He reports that he doesn't know anything about the medications that he takes. He has multiple scabbed over wounds all over his legs and appears to have not had a shower in a few days. ROS reveals chest pain as above in the R anterior chest area, some SOB that has increased, and chronic diarrhea. He also reports intermittent lightheadedness, mostly with changing positions from sitting to standing. He denies headaches, visual changes, abdominal pain, nausea, vomiting. He reports some chronic neuropathy in his legs bilaterally up to his knees. He otherwise denies any symptoms. Past Medical/Surgical History Medical Problems: (1) Adjustment disorder with depressed mood Status: Chronic (2) Amputation of right index finger Status: Chronic (3) Biventricular ICD (implantable cardioverter-defibrillator) in place Status: Chronic (4) CAD (coronary artery disease) Permanent Comment: s/p stent to LAD in 04/2014 Status: Chronic (5) CHF (congestive heart failure) Status: Chronic (6) Chronic systolic CHF (congestive heart failure) Permanent Comment: echo 10/08/14- LV cavity size moderately enlarged, mild concentric LVH, diffuse moderate LV hypokinesis with superimposed more severe hypokinesis/akinesis involving the mid and apical inferior wall, anterior septum , and LV apex. LV apex is akinetic. LV EF = 30%, septal motion abnormal consistent with intrventricular conduction delay, LV diastolic function is abnormal, mild mitral regurgitation Status: Chronic (7) Diabetic retinopathy Status: Chronic (8) DM type 2 (diabetes mellitus, type 2) Status: Chronic (9) Dyslipidemia Status: Chronic (10) Gout Status: Chronic (11) H/O hematuria Status: Chronic (12) H/O: rheumatic fever Status: Chronic (13) History of MRSA infection Status: Chronic (14) HTN (hypertension) Status: Chronic (15) Hypothyroidism Status: Chronic (16) Lung nodule Status: Chronic (17) MSSA bacteremia Status: Chronic (18) Neuropathy Status: Chronic (19) Nonischemic cardiomyopathy Status: Chronic Surgical Problems: (1) H/O amputation of lesser toe Status: Chronic (2) History of amputation of finger of left hand Status: Chronic (3) History of implantable cardioverter-defibrillator (ICD) placement Status: Chronic (4) Hx of BKA Permanent Comment: left Status: Chronic (5) S/P cardiac cath Status: Chronic (6) S/P coronary artery stent placement Permanent Comment: CLAUDINE to LAD in 04/2014 Status: Chronic Family History Diabetes mellitus MOTHER FH: CAD (coronary artery disease) FATHER Social History Smoking Status: Never Smoker Smokeless Tobacco Use: No Alcohol Use: none Drug Use: none Marital Status: Housing status: lives with significant other Occupational Status: disabled Immunizations History of Influenza Vaccine: Yes Influenza Vaccine Date: Jun 27, 2015 History of Tetanus Vaccine?: Yes Tetanus Immunization Date: Aug 24, 2010 History of Pneumococcal: Yes Pneumococcal Date: Jul 03, 1995 History of Hepatitis B Vaccine: No Multi-Drug Resistant Organisms History of MDRO: Yes Type of MDRO: MRSA Allergies Coded Allergies: Gemfibrozil (Verified Allergy, Unknown, 10/23/16) Home Medications Scheduled Allopurinol (Zyloprim), 300 MG PO DAILY Aspirin (Aspirin Ec), 81 MG PO DAILY Atorvastatin (Lipitor), 80 MG PO DAILY Furosemide (Lasix), 80 MG PO BID Glyburide (Diabeta), 5 MG PO QAM Insulin Detemir (Levemir), 80 UNITS SQ BID Insulin Human Regular (Novolin R), 3 UNITS SQ BREAKFAST&[employer]ALS Isosorbide Mononitrate Ext Rel (Imdur Ext Rel), 15 MG PO QAM Levothyroxine Sodium (Synthroid), 50 MCG PO DAILY Losartan Potassium (Cozaar), 25 MG PO DAILY Metolazone (Zaroxolyn), 2.5 MG PO WK Metoprolol Succinate (Toprol Xl), 25 MG PO BID Sertraline (Zoloft), 100 MG PO DAILY Review of Systems Constitutional: No chills, No fever Eyes: No diplopia, No worsening of vision ENT: No sore throat Respiratory: + cough, + shortness of breath Cardiovascular: + chest pain Abdomen: No diarrhea, No nausea, No pain, No vomiting Genitourinary - Male: No problem reported Neurologic: + balance problems, + numbness/tingling (CHRNOIC NEUROPATHY IN LEGS ) Integumentary: No rash Allergic / Immunologic: No food allergies Physical Exam Vital Signs Date Time Temp Pulse Resp B/P Pulse Ox O2 Delivery O2 Flow Rate FiO2 01/19/17 07:29 71 20 90/44 94 Room Air 01/19/17 06:29 94 20 95/59 95 Room Air 01/19/17 06:24 95 20 86/51 93 Room Air 01/19/17 05:34 36.8 86 22 90/52 96 Room Air 01/19/17 05:34 96 Room Air 01/19/17 05:34 96 Room Air 01/19/17 05:25 84 GEN: WNWD, unkempt, in no acute distress, alert and appropriate HEENT: NC/AT, PERRL, normal sclerae, EOMI, MMM, pharynx non-acute CARDIO: reg rate, S1/2 heard without m/g/r LUNGS: CTA bilaterally, no crackles, rales or wheezes, good diaphragmatic excursion. No breath sounds auscultated at R base. ABD: soft, non-tender, non-distended, no rebound or guarding, +BS, protuberant abdomen EXTREMITY: s/p BTK amputee on L, legs are warm and well-perfused, no LE swelling or edema of L leg, 2+DP, multiple scab wounds present along leg with some immediate surrounding erythema but no cellulitis present NEURO: CN 2-12 intact grossly, decreased sensation in BL LEs to knees but otherwise intact throughout, no gross focal deficits. MUSC: 5/5 strength throughout, no focal deficits SKIN: warm and dry and wounds as above. Diagnostics Laboratory Results Results Past 24 Hours Test 01/19/17 05:29 01/19/17 05:30 01/19/17 05:37 01/19/17 08:15 Range/Units Bedside Glucose 292 70-99 mg/dl White Blood Count 11.21 4.8-10.8 K/uL Red Blood Count 3.42 4.7-6.1 M/uL Hemoglobin 10.1 14.0-18.0 g/dL Hematocrit 29.1 42-52 % Mean Corpuscular Volume 85.1 80-100 fL Mean Corpuscular Hemoglobin 29.5 25-34 pg Mean Corpuscular Hemoglobin Concent 34.7 32-36 g/dl Platelet Count 279 130-400 K/uL Mean Platelet Volume 9.4 7.4-10.4 fL Neutrophils (%) (Auto) 74.7 % Lymphocytes (%) (Auto) 17.8 % Monocytes (%) (Auto) 4.9 % Eosinophils (%) (Auto) 1.2 % Basophils (%) (Auto) 0.4 % Neutrophils # (Auto) 8.37 1.4-6.5 K/uL Lymphocytes # (Auto) 1.99 1.2-3.4 K/uL Monocytes # (Auto) 0.55 0.11-0.59 K/uL Eosinophils # (Auto) 0.14 0-0.5 K/uL Basophils # (Auto) 0.05 0-0.2 K/uL RDW Standard Deviation 44.6 36.4-46.3 fL RDW Coefficient of Variation 14.3 11.5-14.5 % Immature Granulocyte % (Auto) 1.0 % Immature Granulocyte # (Auto) 0.11 0.00-0.02 K/uL Prothrombin Time 10.5 9.0-12.0 SECONDS Prothromb Time International Ratio 1.0 0.9-1.1 Sodium Level 140 136-145 mmol/L Potassium Level 4.4 3.5-5.1 mmol/L Chloride Level 105 98-107 mmol/L Carbon Dioxide Level 31 21-32 mmol/L Anion Gap 4.0 3-11 mmol/L Blood Urea Nitrogen 47 7-18 mg/dl Creatinine 1.80 0.60-1.40 mg/dl Est Creatinine Clear Calc Drug Dose 53.1 ml/min Estimated GFR () 44.5 Estimated GFR (Non- 38.4 BUN/Creatinine Ratio 25.9 10-20 Random Glucose 267 70-99 mg/dl Calcium Level 8.9 8.5-10.1 mg/dl Total Bilirubin 0.4 0.2-1 mg/dl Direct Bilirubin 0.1 0-0.2 mg/dl Aspartate Amino Transf (AST/SGOT) 10 15-37 U/L Alanine Aminotransferase (ALT/SGPT) 18 12-78 U/L Alkaline Phosphatase 127 45-117 U/L Total Protein 6.9 6.4-8.2 gm/dl Albumin 3.2 3.4-5.0 gm/dl Beta-Hydroxybutyric Acid 1.28 0.2-2.81 mg/dL Bedside Troponin I 0.040 0-0.045 ng/ml Microbiology Results 01/19/17 Blood Culture, Received Pending 01/19/17 Blood Culture, Received Pending 01/19/17 Fungal Smear, [place] Batch Pending 01/19/17 Fungal Culture, [place] Batch Pending 01/19/17 Acid Fast Stain, [place] Batch Pending 01/19/17 Mycobacterial Culture, [place] Batch Pending 01/19/17 Gram Stain, [place] Batch Pending 01/19/17 Bacterial Culture, [place] Batch Pending Diagnostic Radiology CT OF THE CHEST WITH IV CONTRAST CLINICAL HISTORY: Right-sided chest pain status post trauma COMPARISON STUDY: 01/12/2016 TECHNIQUE: Following the IV administration of 106 mL of Optiray-320, CT of the thorax was performed from the thoracic inlet to the lung bases. Images are reviewed in the axial, sagittal, and coronal planes. IV contrast was administered without complication. CT DOSE: FINDINGS: Thyroid: Imaged portions of the thyroid gland are normal in appearance. Thoracic aorta: The thoracic aorta is normal in course and caliber, noting standard 3-vessel arch anatomy. No aneurysm or dissection is seen. Pulmonary vasculature: The pulmonary trunk is normal in caliber. There are no central filling defects identified to suggest pulmonary embolus. Note that this examination was not protocoled for the evaluation of pulmonary emboli. HEART: There are coronary artery calcifications. There is no significant pericardial effusion. The pacemaker is visualized. Lungs and pleural spaces: There is a large right-sided hemothorax. There is a stable 2 cm left lower lobe pulmonary nodule containing calcifications. There are compressive atelectatic changes within the right lower lobe right middle lobe and right upper lobe. Mediastinum: There is no evidence of pathologic mediastinal adenopathy. There are no findings to indicate a mediastinal hematoma. Michaela: There is no evidence of pathologic adenopathy Axilla: Clear. Upper abdomen: Partially visualized upper abdominal viscera is within normal limits. Skeletal structures: There are fractures of the right eighth, ninth, 10th and 11th ribs. IMPRESSION: 1. Acute displaced fractures of the right eighth through 11th ribs 2. Large right-sided hemothorax 3. Stable 2 cm partially calcified left lower lobe pulmonary nodule. ABDOMEN AND PELVIS CT WITH IV CONTRAST CT DOSE: 2399.40 mGy.cm HISTORY: Right-sided abdominal pain. Fall. TECHNIQUE: Multiaxial CT images of the abdomen and pelvis were performed following the use of intravenous contrast. COMPARISON STUDY: Chest CTA 01/12/2016. FINDINGS: There are displaced right eighth through 12th rib fractures. There is an associated large right hemothorax. This results in partial compression of the right lower lobe. There is a 2 cm partially calcified left lower lobe nodule. Evaluation of the right hemidiaphragm is suboptimal due to the adjacent hemothorax but likely intact. A 5 mm hypodense lesion within the left hepatic lobe is too small to characterize. No definite hepatic or splenic lacerations. The adrenal glands, gallbladder, and pancreas are unremarkable. Mild bilateral cortical renal thinning. No hydronephrosis. No retroperitoneal lymphadenopathy. Anterior abdominal wall subcutaneous irregular soft tissue areas favor prior medication injection. Mild bladder wall thickening. The prostate gland is enlarged. No bowel wall thickening or obstruction. IMPRESSION: 1. Displaced right eighth through 12th rib fractures. 2. Large right hemothorax. 3. Partially calcified 2 cm left lower lobe nodule. This remains unchanged. EKG unchanged from prior, SR Impression Assessment and Plan 66 yo M presents with R hemothorax s/p traumatic fall at home two weeks ago. 1. Dyspnea and chest pain 2/2 R hemothorax with displaced rib fractures-s/p thoracentesis with Pleurex catheter placement in the ER by CT surg team. Admit to telemetry and follow. Supportive care with pain control. No significant pericardial effusion on CT scan-will follow pt clinically post-thoracentesis. Trend H/H. Hold DVT proph at this time. 2. DMII longstanding with known complications of neuropathy and vasculopathy- cont ISS/Lantus with pharmacy consult for assist. 3. Anemia-acute, likely 2/2 acute blood loss. No indication for transfusion at this time. Monitor CBC. 4. Idiopathic dilated cardiomyopathy wtih severe LV dysfunction (Dx 2000): will monitor clinically and check daily weights post-procedure. Appears euvolemic at this time. Cont home meds aside form ASA in setting of hemothorax 5. Superimposed CAD s/p stent placement for high grade LAD stenosis-in setting of prior stents, will not stop ASA at this time. Monitor vitals and CBC to ensure no further bleeding. Less of a concern for acute bleed being two weeks s /p trauma. 6. Hypothyroidism-cont home Synthroid, TSH pending. 7. Gout-no acute flares, cont allopurinol 8. CKD IV-Creat at baseline. Cont home meds, renally dose meds and avoid nephrotoxic substances Full Code Diet-2gm Na restric. ADA DVT proph-hold in setting of bleeding and recent procedure, consider starting tomorrow. Dispo-to telemetry floor for monitoring overnight DO Erwin Trinidad Hospitalist Level of Care Telemetry Resuscitation Status FULL RESUSCITATION VTE Prophylaxis VTE Risk Assessment Done? Y/N: Yes Risk Level: Moderate Given or contraindicated: Contraindicated
--- NOTE | 2017-01-19 09:37 | Pharmacy Progress Note ---
Glycemic Control Intl Consult Date of Service January 19, 2017. Scope Glycemic Pharmacist consulted for glycemic control and to write orders per [facility] inpatient glycemic control protocol Objective Weight (Kilograms): 123.000 Accuchecks BSG (last 24hrs): Test 01/19/17 05:29 01/19/17 05:30 Bedside Glucose 292 mg/dl (70-99) Random Glucose 267 mg/dl (70-99) Laboratory Data (last 24hrs) Test 01/19/17 05:30 Anion Gap 4.0 mmol/L BUN/Creatinine Ratio 25.9 Blood Urea Nitrogen 47 mg/dl Creatinine 1.80 mg/dl Potassium Level 4.4 mmol/L Sodium Level 140 mmol/L White Blood Count 11.21 K/uL Red Blood Count 3.42 M/uL Hemoglobin 10.1 g/dL Hematocrit 29.1 % Mean Corpuscular Volume 85.1 fL Mean Corpuscular Hemoglobin 29.5 pg Mean Corpuscular Hemoglobin Concent 34.7 g/dl Platelet Count 279 K/uL Mean Platelet Volume 9.4 fL Neutrophils (%) (Auto) 74.7 % Lymphocytes (%) (Auto) 17.8 % Monocytes (%) (Auto) 4.9 % Eosinophils (%) (Auto) 1.2 % Basophils (%) (Auto) 0.4 % Neutrophils # (Auto) 8.37 K/uL Lymphocytes # (Auto) 1.99 K/uL Monocytes # (Auto) 0.55 K/uL Eosinophils # (Auto) 0.14 K/uL Basophils # (Auto) 0.05 K/uL Recent Pertinent Medications Outpatient Anti-diabetic Regimen: * Levemir 80 units SC BID * Novolin R 3 units SC BIDM * Glyburide 5 mg po qAM * A1c = 9.6 % on 10/24/16, repeat level pending for 01/20/17 Risk Factors for Insulin Resistance: * Diet: T2DM, low Na Assessment & Plan ASSESSMENT: * ADA & AACE recommend a goal blood sugar range 140-180 mg/dl for the majority of critically ill & non-critically ill patients. However, more stringent targets may be selected in individual cases. * 66 yo M with T2DM well-known to our service, admitted with abdominal pain and found to have a hemothorax and multiple rib fractures 2nd fall 2 weeks ago. * Recent admission Oct-Nov 2016 for sepsis s/p finger amputation * BSG decreased from 292 to 164 mg/dL without any po intake or insulin administered in-house. Spoke w RN who noted that patient received AM dose of Levemir at home SPECIAL SERVICE OFFICER. * For today, will significantly loosen Novolog as compared to what worked for previous admissions as patient has significantly more basal on-board 2nd home dose received this AM * Outpatient regimen is heavily weighted towards basal. Starting tonight, will do the following: * Will adjust significantly to aim for ~50/50 mix of basal/bolus * Will resume similar regimen that was appropriate during previous admission(s) * Will use Levemir instead of Lantus as this is what the patient uses at home PLAN FOR INPATIENT GLYCEMIC CONTROL: * Hold outpatient oral diabetes medications (glyburide) * Starting tonight: Basal insulin with LEVEMIR 15 units SQ BID (10 units for BSG < 100 mg/dL) * For today only: Correctional Insulin with NOVOLOG per scale ACHS or Q6hrs while NPO * Goal Range: Low 140 mg/dL - High 180 mg/dL * Correction Factor: 20 mg/dL/unit * Nutritional / Prandial insulin per carb ratio of 1 unit per 8 grams CHO consumed * Starting tomorrow AM: Correctional Insulin with NOVOLOG per scale ACHS or Q6hrs while NPO * Goal Range: Low 110 mg/dL - High 140 mg/dL * Correction Factor: 12 mg/dL/unit * Nutritional / Prandial insulin per carb ratio of 1 unit per 4 grams CHO consumed * Please note that the plan above was derived based on current level of insulin resistance and hospital stress. These recommendations are appropriate for inpatient admission only. Plan of care upon discharge will need to be reassessed to avoid potential outpatient hypo/hyperglycemia. Thank you.
--- NOTE | 2017-01-19 09:43 | DIAGNOSTIC IMAGING REPORT ---
CT HEAD WITHOUT CONTRAST (CT) CLINICAL HISTORY: Change in mental status. Lightheadedness. History of head trauma. COMPARISON STUDY: 10/25/2016 TECHNIQUE: Axial CT of the brain is performed from the vertex to the skull base. IV contrast was not administered for this examination. CT DOSE: 614.27 mGy.cm FINDINGS: No intra or extra-axial mass lesions are visualized. There is no CT evidence of acute cortical infarction. There is no evidence of midline shift. There is no acute hemorrhage. No calvarial fractures are visualized. There are mild white matter hypodensities likely on a small vessel basis. There is a suspected right basal ganglial lacunar infarct versus prominent perivascular space. This remain stable There is no evidence of pathologic ventricular dilatation. There is no evidence of acute sinusitis IMPRESSION: No acute intracranial findings Electronically signed by: Nasir Butts M.D. 01/19/2017 9:41 AM Dictated Date/Time: 01/19/2017 9:40 AM
[2017-01-19 09:52] LABS: PLEURAL FLUID TOTAL PROTEIN 5.4 g/dl
--- NOTE | 2017-01-19 09:54 | DIAGNOSTIC IMAGING REPORT ---
CHEST ONE VIEW PORTABLE CLINICAL HISTORY: effusion drainage COMPARISON STUDY: 01/19/2017 FINDINGS: The cardiac and mediastinal contours remain stable. There is a left subclavian pacer/defibrillator present. There is been interval placement of a right-sided chest tube. There is a decrease in the amount of right pleural fluid present. There is right basilar atelectasis/consolidation. Multiple right-sided rib fractures are visualized. No pneumothorax is evident.[ IMPRESSION: 1. Interval decrease in the size the right pleural effusion status post placement of a right-sided chest tube 2. Right basilar atelectasis/consolidation 3. No evidence of pneumothorax 4. Multiple right-sided rib fractures Electronically signed by: Nasir Butts M.D. 01/19/2017 9:52 AM Dictated Date/Time: 01/19/2017 9:51 AM
--- NOTE | 2017-01-19 09:57 | OPERATIVE REPORT ---
DATE OF OPERATION: 01/19/2017 PREOPERATIVE DIAGNOSIS: Probable right hemothorax status post rib fractures. POSTOPERATIVE DIAGNOSIS: Same. PROCEDURE: Insertion of PleurX catheter. SURGEON: Dr. Martinez. MANAGER MUSIC: JIM Weldon. ANESTHESIA: Local. SPECIFICS OF PROCEDURE: The patient, in a left lateral decubitus position, had his right chest prepped and draped in usual sterile fashion posterolaterally after an ultrasound was used to find a window insert this catheter. A skin wheal was raised with 25-gauge needle, 1% Xylocaine, and a 1 cm incision was made. Needle was then placed through this to anesthetize the deeper subcutaneous tissues to go over the rib and into the pleura. There was free flowing dark blood and a guidewire was inserted through the needle and needle removed. About 15 cm anterior to this, another skin wheal was raised with 25-gauge needle, 1% Xylocaine, and 1 cm incision was made. The subcutaneous tissues between the 2 incisions were anesthetized with 1% Xylocaine without epinephrine. A tunneler was attached to the PleurX catheter and dragged from the anterior to the posterior incision. The tunneler was then removed. Introducer sheath was slid over the guidewire and inner cannulated guidewire removed and the PleurX catheter was then inserted posteriorly through the peel away sheath which was removed. Two separate 3-0 silk sutures were used to close the posterior incision and 3-0 silk suture was used to anchor the catheter to the patient's skin anteriorly. 1600 mL of dark red blood were drained and we stopped as he started having reexpansion pain. It should be noted he has very poor ejection fraction, I did not want to instigate reexpansion pulmonary edema. We will drain him again later today. I attest to the content of the Intraoperative Record and any orders documented therein. Any exceptio ns are noted below.
[2017-01-19 10:08] VITALS: BP 104/48; PULSE 70; TEMP 36.5; O2SAT 93; Ht 177.8 cm; Wt 120.7 kg
[2017-01-19 10:47] LABS: PLEURAL FLUID APPEARANCE BLOODY; PLEURAL FLUID COLOR RED; PLEURAL FLUID MONONUC RELAT 63.2 %; PLEURAL FLUID POLYNUC 36.8 %; PLEURAL FLUID SOURCE RIGHT LUNG; PLEURAL FLUID WBC (A) 2053 /uL
[2017-01-19 11:46] VITALS: BP 93/46; PULSE 66; TEMP 36.5; O2SAT 95
--- NOTE | 2017-01-19 11:56 | SURGICAL CONSULTATION ---
DATE OF CONSULTATION: 01/19/2017 REASON FOR CONSULTATION: Right hemothorax. HISTORY OF PRESENT ILLNESS: This is an unfortunate 66-year-old male who has had diabetes for 30 years and suffered from any of the problems with diabetes including renal insufficiency and peripheral vascular disease and in fact has undergone a left below knee amputation about 10 years ago. The patient also had amputations of his fingers recently for infection and has coronary artery disease and has an apparent ischemic cardiomyopathy. His ejection fraction is quite low. I was asked to evaluate him from a thoracic surgery standpoint after he fell 2 weeks ago and broke some ribs on his right side. He came to the Emergency Room as he has had diarrhea, feels dehydrated and had been diagnosed as having Clostridium difficile colitis, had been treated for this for at least the last 3-4 weeks. He has had a chest filled fluid and we are assuming that we are dealing with a hemothorax. I was asked to help evaluate him for management of this fluid. PAST MEDICAL HISTORY: 1. Obesity. 2. Depression. 3. Peripheral vascular disease. 4. Probable ischemic cardiomyopathy. 5. Coronary artery disease. 6. Episodes of congestive heart failure. 7. Diabetic retinopathy. 8. Diabetes mellitus. 9. Dyslipidemia. 10. History of gout. 11. History of rheumatic fever. 12. Clostridium difficile colitis. 13. Hypertension. 14. Hypothyroidism. 15. Peripheral neuropathy. 16. Wound to the back of the neck. 17. Wounds of hands. PAST SURGICAL HISTORY: 1. Amputation of fingers bilaterally. 2. Left below knee amputation. 3. Percutaneous transluminal coronary angioplasty and stent. 4. History implantable cardioverter defibrillator, left infraclavicular area. 5. Amputation of toe. MEDICATIONS: 1. Insulin. 2. Zoloft. 3. Toprol. 4. Zyloprim. 5. Aspirin. 6. Lipitor. 7. Zaroxolyn. 8. Cozaar. 9. Lasix. 10. Diabetic. 11. Synthroid. 12. Imdur. 13. Levemir insulin. ALLERGIES: GEMFIBROZIL. 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 He grew up in [place] and attended [employer] and he graduated in 1968. He is disabled now. He lives at home with his . He has never smoked cigarettes. FAMILY MEDICAL HISTORY: The patient's father in the 70s, had apparent coronary artery disease and was a smoker. Mother from complications of diabetes mellitus in her 70s. He has 2 brothers and 2 sisters who are healthy. He has no children. REVIEW OF SYSTEMS: The patient has not felt well. He has right chest pain. He has rib fractures from falling at home. This happened 2-3 weeks ago. He is not hypoxic. He does have shortness of breath, especially with any type of exertion. He has been having as he states continuous diarrhea "for a month". He has been treated for his Clostridium difficile colitis, apparently to no avail. He has been having right-sided chest pain. He does have a wound breakdown behind his neck which appears to be a pressure wound or perhaps fungal and also has multiple breakdowns of his right lower leg. He has poor eyesight secondary to his retinopathy. His hearing has not been impaired. He does complain of right-sided chest pain, but denies palpitations. Denies nausea, vomiting. PHYSICAL EXAMINATION: GENERAL: He is a disheveled appearing 66-year-old male who appears his stated age. HEENT: His pupils are restricted but showed some reactivity. Extraocular movements are intact. His sclerae are pale. He has no nasolabial flattening. Oral mucosa is moist. NECK: His neck is thick, but supple. He does have breakdown in the posterior aspect of the cervical neck, which again may well be due to fungus in the skin fold. I detect no bruits. HEART AND LUNGS: He has decreased breath sounds in the right. He has a regular rate and rhythm of his heart. He has a well-healed left infraclavicular pacemaker insertion site. As stated, he has decreased breath sounds on the right, better breath sounds on the left posteriorly. I do not detect crepitus on the right. ABDOMEN: Obese but nontender. He has good bowel sounds. I do not detect evidence of ascites. EXTREMITIES: He has a well-healed left below knee amputation stump and breakdown. His right lower extremity reveals multiple areas of breakdown from his knee all the way down. These appear to be superficial and they are multiple but are small of not being over 2 cm. I do not palpate pulses and he does have trace edema with induration of his right lower leg. He had amputation to the left hand. He does have evidence of a diabetic neuropathy in his right foot with decreased fine touch discrimination. ASSESSMENT AND PLAN: Probable right hemothorax. His hemoglobin has dropped from 13.7-10.1 in the last 2 months. We are going to insert a PleurX catheter which should lend itself well to thrombolytic therapy if necessary. A CT scan shows probable hematoma and it is complex. There is a degree of homogenicity to most of it. MTDD
[2017-01-19] MEDS ORDERED: TRAMADOL HCL 50 MG TAB PO SCH (12:30)
[2017-01-19] MEDS: INSULIN ASPART 100 UNITS/ML 3 ML PEN SC SCH ×3 (12:40→21:00)
[2017-01-19] MEDS: TRAMADOL HCL 50 MG TAB PO PRN (13:17)
[2017-01-19] MEDS: ACETAMINOPHEN 500 MG TAB PO SCH ×2 (13:18→21:28)
[2017-01-19] MEDS: MoRPHine SULFATE 2 MG/ML CARP IV PRN (15:45)
[2017-01-19 16:27] VITALS: BP 114/54; PULSE 58; TEMP 36.4; O2SAT 94
[2017-01-19] MEDS: FUROSEMIDE 80 MG TAB PO SCH (17:24)
[2017-01-19] MEDS: SODIUM CHLORIDE 0.45% 1000ML 1,000 ML IV SCH (18:36)
[2017-01-19 19:08] LABS: URINE APPEARANCE CLEAR (CLEAR); URINE BILIRUBIN NEG (NEG); URINE COLOR DK YELLOW; URINE NITRITE NEG (NEG); URINE SPECIFIC GRAVITY 1.029 (1.000-1.030); UROBILINOGEN NEG (NEG)
[2017-01-19 19:22] LABS: MANUAL MICROSCOPIC REQUIRED? NO; REVIEW REQ? NO
[2017-01-19 20:27] VITALS: BP 129/50; PULSE 60; TEMP 36.8; O2SAT 100
[2017-01-19] MEDS: METOPROLOL SUCC 25MG EXT REL TAB PO SCH (21:00)
[2017-01-19] MEDS: INSULIN DETEMIR FLEXPEN/FLEX TOUCH 100 UNITS/ML 3ML SC SCH (21:31)
[2017-01-19 23:46] VITALS: BP 121/64; PULSE 63; TEMP 36.4; O2SAT 100
[2017-01-20] VITALS (19 sets, daily range): BP systolic 100–156; BP diastolic 46–88; PULSE 60–88; TEMP 36.3–36.7; O2SAT 90–97
[2017-01-20] MEDS: MoRPHine SULFATE 2 MG/ML CARP IV PRN ×3 (02:14→12:43)
[2017-01-20 06:00] LABS: MEAN CELL VOLUME 84.6 fL (80-100); MEAN CORPUSCULAR HEMOGLOBIN 28.7 pg (25-34); MEAN CORPUSCULAR HGB CONC 33.9 g/dl (32-36); MEAN PLATELET VOLUME 8.9 fL (7.4-10.4); PLATELET COUNT 225 K/uL (130-400); RED BLOOD COUNT 2.72 M/uL (4.7-6.1); WHITE BLOOD COUNT 8.94 K/uL (4.8-10.8)
[2017-01-20] MEDS: ACETAMINOPHEN 500 MG TAB PO SCH ×2 (06:04→21:26)
[2017-01-20] MEDS: LEVOTHYROXINE 50 MCG TAB PO SCH (06:04)
[2017-01-20] MEDS: TRAMADOL HCL 50 MG TAB PO PRN ×2 (06:07→19:45)
[2017-01-20 06:39] LABS: BUN/CREATININE RATIO 22.8 (10-20); CALCIUM 8.9 mg/dl (8.5-10.1); CREATININE 2.5 mg/dl (0.60-1.40); MAGNESIUM 2.4 mg/dl (1.8-2.4); POTASSIUM 4.8 mmol/L (3.5-5.1)
[2017-01-20 06:58] LABS: ESTIMATED AVERAGE GLUCOSE 189 mg/dl; HA1C FLAG Normal (Normal)
[2017-01-20] MEDS: INSULIN ASPART 100 UNITS/ML 3 ML PEN SC SCH ×4 (07:00→21:28)
--- NOTE | 2017-01-20 07:16 | DIAGNOSTIC IMAGING REPORT ---
SINGLE VIEW CHEST CLINICAL HISTORY: Pleural effusion. FINDINGS: An AP, portable, upright chest radiograph is compared to chest x-ray and chest CT dated 01/19/2017. A 3-lead cardiac AICD is unchanged in position and partially obscures the left apex. The heart is enlarged and there is atherosclerotic calcification of the thoracic aorta. The pulmonary vasculature is noncongested. Chronic interstitial thickening is unchanged. A pleural drain is again seen at the right lung base. A layering right pleural effusion with right basilar consolidation has not significantly changed from yesterday. The left lung is grossly clear. No pneumothorax is seen. Numerous right-sided rib fractures are again noted. IMPRESSION: 1. Cardiomegaly and AICD. There is no radiographic evidence of congestive failure. 2. Layering right pleural effusion with right basilar consolidation has not significant change from yesterday. A pleural drain is again seen at the right lung base. Electronically signed by: Bennett Dahl M.D. 01/20/2017 7:15 AM Dictated Date/Time: 01/20/2017 7:13 AM
[2017-01-20] MEDS: SODIUM CHLORIDE 0.45% 1000ML 1,000 ML IV SCH (08:14)
[2017-01-20] MEDS: LOSARTAN POTASSIUM 25 MG TAB PO SCH (08:17)
[2017-01-20] MEDS: METOPROLOL SUCC 25MG EXT REL TAB PO SCH ×2 (08:17→21:26)
[2017-01-20] MEDS: ISOSORBIDE MONONITRATE 30 MG TABCR PO SCH (08:18)
[2017-01-20] MEDS: ASPIRIN 81 MG ECTAB PO SCH (08:18)
[2017-01-20] MEDS: FUROSEMIDE 80 MG TAB PO SCH (08:19)
[2017-01-20] MEDS: ATORVASTATIN 40 MG TAB PO SCH (08:19)
[2017-01-20] MEDS: ALLOPURINOL 300 MG TAB PO SCH (08:20)
[2017-01-20] MEDS: SERTRALINE HCL 50 MG TAB PO SCH (08:21)
--- NOTE | 2017-01-20 08:22 | Surgery Progress Note ---
Subjective Date of Service: January 20, 2017. Pt. notes breathing has improved since pleurx placement. He does note some pain with drainage. Objective Vitals Date Time Temp Pulse Resp B/P Pulse Ox O2 Delivery O2 Flow Rate FiO2 01/20/17 04:37 36.5 60 20 100/48 90 Room Air 01/20/17 04:00 Room Air 01/20/17 00:00 Room Air 01/19/17 23:46 36.4 63 22 121/64 100 Room Air 01/19/17 20:27 36.8 60 20 129/50 100 Room Air 01/19/17 20:00 Room Air 01/19/17 16:27 36.4 58 18 114/54 94 Room Air 01/19/17 16:00 Room Air 01/19/17 11:46 36.5 66 20 93/46 95 01/19/17 11:39 Room Air 01/19/17 10:08 36.5 70 18 104/48 93 Room Air 01/19/17 09:23 69 21 91/46 94 01/19/17 08:59 67 16 91/46 100 Room Air Physical Exam General: No distress Pulmonary: + pertinent finding (decreased BS at right base), No accessory muscle use, No respiratory distress Neurologic: + alert & oriented x 3 Laboratory Item Value Date Time White Blood Count 8.94 K/uL 01/20/17 0538 Hemoglobin 7.8 g/dL L 01/20/17 0538 Hematocrit 23.0 % L 01/20/17 0538 Platelet Count 225 K/uL 01/20/17 0538 Radiology CXR today shows right pleural effusion, somewhat improved from yesterday's CXR Drains / Tubes pleurex (drained this am for 350 cc bloody fluid) Assessment & Plan 66 year old male with right pleural effusion -effusion likely the result of trauma/fall pt. suffered several days ago -pleurex placed (01/19/17) -cultures on pleural fluid thus far (-) -continue daily drainage of pleurex -will hold on placing TPA due to drop in hemoglobin as we do not want to precipitate a bleeding event
[2017-01-20] MEDS: INSULIN DETEMIR FLEXPEN/FLEX TOUCH 100 UNITS/ML 3ML SC SCH ×2 (08:27→21:30)
--- NOTE | 2017-01-20 10:25 | Pharmacy Progress Note ---
Glycemic Control: Progress Nt Date of Service January 20, 2017. Scope Glycemic Pharmacist consulted for glycemic control and to write orders per [facility] inpatient glycemic control protocol. Objective Accuchecks BSG (last 24hrs): Test 01/19/17 11:37 01/19/17 16:30 01/19/17 21:26 01/20/17 05:38 Bedside Glucose 132 mg/dl (70-99) 145 mg/dl (70-99) 112 mg/dl (70-99) Random Glucose 142 mg/dl (70-99) Test 01/20/17 07:01 Bedside Glucose 171 mg/dl (70-99) Laboratory Data (last 24hrs) Test 01/20/17 05:38 Anion Gap 7.0 mmol/L BUN/Creatinine Ratio 22.8 Blood Urea Nitrogen 57 mg/dl Creatinine 2.50 mg/dl Hemoglobin A1c 8.2 % Potassium Level 4.8 mmol/L Sodium Level 141 mmol/L White Blood Count 8.94 K/uL HbA1c: Test 01/20/17 05:38 Hemoglobin A1c 8.2 % (4.5-5.6) H Recent Pertinent Medications Outpatient Anti-diabetic Regimen: * Levemir 80 units SC BID * Novolin R 3 units SC BIDM * Glyburide 5 mg po qAM * A1c = 9.6 % on 10/24/16, repeat level pending for 01/20/17 The patient is currently receiving: * Basal insulin with LEVEMIR 15 units SQ BID (10 units for BSG < 100 mg/dL) * Correctional Insulin with NOVOLOG per scale ACHS or Q6hrs while NPO * Goal Range: Low 110 mg/dL - High 140 mg/dL * Correction Factor: 12 mg/dL/unit * Nutritional / Prandial insulin per carb ratio of 1 unit per 4 grams CHO consumed Risk Factors for Insulin Resistance: * Surgery: POD 1 s/p Pleurex cath placement * Diet: T2DM, low Na Assessment & Plan ASSESSMENT: 01/19/17 * ADA & AACE recommend a goal blood sugar range 140-180 mg/dl for the majority of critically ill & non-critically ill patients. However, more stringent targets may be selected in individual cases. * 66 yo M with T2DM well-known to our service, admitted with abdominal pain and found to have a hemothorax and multiple rib fractures 2nd fall 2 weeks ago. * Recent admission Oct-Nov 2016 for sepsis s/p finger amputation * BSG decreased from 292 to 164 mg/dL without any po intake or insulin administered in-house. Spoke w RN who noted that patient received AM dose of Levemir at home [employer] OPER[employer]. * For today, will significantly loosen Novolog as compared to what worked for previous admissions as patient has significantly more basal on-board 2nd home dose received this AM * Outpatient regimen is heavily weighted towards basal. Starting tonight, will do the following: * Will adjust significantly to aim for ~50/50 mix of basal/bolus * Will resume similar regimen that was appropriate during previous admission(s) * Will use Levemir instead of Lantus as this is what the patient uses at home 01/20/17 * BSG slightly elevated to 171 mg/dL this AM. Will increase Lantus to weight- based estimate and stress of 2. Decrease to stress of 1 for hypoglycemia. * Novolog was changed just this AM after successful transition from home Levemir dose to inpatient requirements this AM. No data to support further change at this time. PLAN FOR INPATIENT GLYCEMIC CONTROL: * Hold outpatient oral diabetes medications (glyburide) * Increase Basal insulin with LEVEMIR 20 units SQ BID (10 units for BSG < 100 mg /dL) * Correctional Insulin with NOVOLOG per scale ACHS or Q6hrs while NPO * Goal Range: Low 110 mg/dL - High 140 mg/dL * Correction Factor: 12 mg/dL/unit * Nutritional / Prandial insulin per carb ratio of 1 unit per 4 grams CHO consumed * Please note that the plan above was derived based on current level of insulin resistance and hospital stress. These recommendations are appropriate for inpatient admission only. Plan of care upon discharge will need to be reassessed to avoid potential outpatient hypo/hyperglycemia. Thank you.
[2017-01-20] MEDS ORDERED: ACETAMINOPHEN 325 MG TAB PO SCH (10:30)
--- NOTE | 2017-01-20 10:31 | Progress Note ---
Medicine Progress Note Date & Time of Visit: January 20, 2017 at 10:08. Subjective 66 yo M with h/o recent admission for septic shock 2/2 finger infection presents with dyspnea 2/2 hemothorax on the R 2/2 trauma two weeks ago -s/p thoracentesis in ER yesterday with 1500cc blood removed -overnight 350cc output that is blood tinged from the Pleurex catheter -pt reports fatigue but breathing is improved from yesterday -denies any prior issues with urination at home but had some AUR yesterday and Salcedo was placed with 400cc return -denies cough -chest pain managed with scheduled tylenol and prn morphine and tramadol -no BM since admission despite reported diarrhea prior to arrival -afebrile overnight -dressing removed from hand and wound evaluated-patient states that there is nothing wrong with it, however, he can't tell me when the bandage was last changed and it is black looking with old drainage soaked through -the wound itself is in the prior amputation site, is closed but is covered with a purulent drainage. Objective Last 8 Hrs Date Time Temp Pulse Resp B/P Pulse Ox O2 Delivery O2 Flow Rate FiO2 01/20/17 04:37 36.5 60 20 100/48 90 Room Air 01/20/17 04:00 Room Air Physical Exam: GEN: WNWD, in no acute distress, alert and appropriate, appears fatigued HEENT: NC/AT, pupils are equal and round, normal sclerae/conjunctivae, MMM CARDIO: reg rate, S1/2 heard without m/g/r LUNGS: CTA bilaterally, no crackles, rales or wheezes, good diaphragmatic excursion, chest wall TTP in anterior chest on the R. BACK: Pleurex catheter in place and taped against body-blood tinged drainage is present ABD: soft, non-tender, non-distended, no rebound or guarding, +BS EXTREMITY: Both hands have multiple finger amputations. R hand: purulent drainage over recent surgical wound which is closed, no surrounding erythema, sensation decrease in the hand. LLE BTK amputation-skin clear and leg is warm and well-perfused. RLE -multiple closed scab wounds present on leg, DP2+ and warm and well perfused. Sensation low in this area. NEURO: CN 2-12 grossly intact MUSC: slow to move 2/2 pain, moves all extremities equally. SKIN: warm and dry Laboratory Results: Last 24 Hours Test 01/19/17 11:37 01/19/17 16:30 01/19/17 18:30 01/19/17 21:26 Bedside Glucose 132 mg/dl 145 mg/dl 112 mg/dl Urine Color DK YELLOW Urine Appearance CLEAR Urine pH 5.0 Urine Specific [place] 1.029 Urine Protein NEG Urine Glucose (UA) 1+ Urine Ketones NEG Urine Occult Blood NEG Urine Nitrite NEG Urine Bilirubin NEG Urine Urobilinogen NEG Urine Leukocyte Esterase NEG Test 01/20/17 05:38 01/20/17 07:01 01/20/17 10:01 White Blood Count 8.94 K/uL Red Blood Count 2.72 M/uL Hemoglobin 7.8 g/dL Hematocrit 23.0 % Mean Corpuscular Volume 84.6 fL Mean Corpuscular Hemoglobin 28.7 pg Mean Corpuscular Hemoglobin Concent 33.9 g/dl RDW Standard Deviation 45.5 fL RDW Coefficient of Variation 14.7 % Platelet Count 225 K/uL Mean Platelet Volume 8.9 fL Sodium Level 141 mmol/L Potassium Level 4.8 mmol/L Chloride Level 105 mmol/L Carbon Dioxide Level 29 mmol/L Anion Gap 7.0 mmol/L Blood Urea Nitrogen 57 mg/dl Creatinine 2.50 mg/dl Est Creatinine Clear Calc Drug Dose 37.1 ml/min Estimated GFR () 29.9 Estimated GFR (Non- 25.8 BUN/Creatinine Ratio 22.8 Random Glucose 142 mg/dl Estimated Average Glucose 189 mg/dl Hemoglobin A1c 8.2 % Calcium Level 8.9 mg/dl Magnesium Level 2.4 mg/dl Bedside Glucose 171 mg/dl Date/Time Source Procedure Growth Status 01/19/17 18:30 Urine , Clean Catch Urine Culture Pending Received Assessment & Plan 66 yo M with h/o recent admission for septic shock 2/2 finger infection presents with dyspnea 2/2 hemothorax on the R 2/2 trauma two weeks ago 1. Dyspnea and chest pain 2/2 R hemothorax with displaced rib fractures-s/p thoracentesis on 01/19 with Pleurex catheter placement in the ER by CT surg team. 1500ml out initially and 350 out overnight. Supportive care with pain control. Repeat CXR improved and breathing reported to be better per patient. 2. Incision wound-patient reports sensation loss in R hand since amputation 6- 8 weeks ago. He was admitted for septic source with a finger infection as the source. It appears the wound is closed but there is purulent material over the area. Pt denies any pain, fevers, or chills. This patient appears to have very poor wound care with a drainage-soaked bandage that is old-appearing. Wound care consulted. Will xray the hand to look for soft tissue gas or presence of osteo. Will obtain ESR and CRP and trend this--of note, no leukocytosis is present. Will cover with Vanc empirically--although prior cultures from this wound grew MSSA he has a h/o MRSA and with recent hospitalization has increased risk for this. Will consult Ortho-hand for evaluation. 3. Anemia-acute, likely 2/2 acute blood loss in addition to dilution effect from IVF overnight given for AUR. Catheter still draining some blood-tinged fluid so expect a further drop and patient is having significant fatigue. Plan to transfuse two units at this time. 4. PATRICIA in setting of CKD IV-Creat at baseline. Cont home meds, renally dose meds and avoid nephrotoxic substances. Etiology is likely acute urinary retention yesterday. Fluid bolus given overnight and Salcedo placed yesterday. Creat up to 2.5 today. Cont salcedo for now and trend PRP in am. Pt reports no issues at home RE: BPH symptoms, so will ensure adequately hydrated prior to Salcedo removal trial without starting tamsulosin. 5. Acute urinary retention-poss 2/2 BPH but patient denies symptoms of this. See #4 6. DMII longstanding with known complications of neuropathy and vasculopathy- cont ISS/Lantus with pharmacy consult for assist. Sugars are at goal. 7. Idiopathic dilated cardiomyopathy wt severe LV dysfunction (Dx 2000): will monitor clinically and check daily weights post-procedure. Appears euvolemic at this time. Cont home meds aside form ASA in setting of hemothorax. Lasix/metolazone held with concentrated-appearing urine. 8. Superimposed CAD s/p stent placement for high grade LAD stenosis-in setting of prior stents, will not stop ASA at this time. 9. Hypothyroidism-cont home Synthroid, TSH slightly elevated to 5. Defer to outpatient PCP for adjustment unless fatigue doesn't improve with blood administration. 10. Gout-no acute flares, cont allopurinol Full Code Diet-2gm Na restric. ADA DVT proph-hold in setting of bleeding and recent procedure, consider starting tomorrow. Dispo-cont to monitor pt on telemetry Cristina Durbin DO [facility] Hospitalist Current Inpatient Medications: Current Inpatient Medications Medications (Trade) Dose Ordered Sig/Ifeanyi Route Start Time Stop Time Status Last Admin Dose Admin Glucose (Glucose 40% Gel) 15-30 GRAMS 15 GRAMS... UD PRN PO 01/19/17 08:15 02/18/17 08:14 Glucose (Glucose Chew Tab) 4-8 Tablets 4 Tabl... UD PRN PO 01/19/17 08:15 02/18/17 08:14 Dextrose (Dextrose 50% 50ML Syringe) 25-50ML OF 50% DW IV FOR... UD PRN IV 01/19/17 08:15 02/18/17 08:14 Glucagon (Glucagon Inj) 1 mg UD PRN SQ 01/19/17 08:15 02/18/17 08:14 Miscellaneous Information (Consult Glycemic Management Pharmacy) 1 ea UD PRN N/A 01/19/17 08:34 02/18/17 08:33 Ondansetron HCl (Zofran Inj) 4 mg Q6H PRN IV 01/19/17 08:15 02/18/17 08:14 Morphine Sulfate (MoRPHine SULFATE INJ) 2 mg Q2H PRN IV 01/19/17 08:15 02/02/17 08:14 01/20/17 08:11 2 MG Polyethylene (Miralax Powder Packet) 17 gm DAILY PRN PO 01/19/17 08:15 02/18/17 08:14 Allopurinol (Zyloprim Tab) 300 mg DAILY PO 01/20/17 09:00 02/19/17 08:59 01/20/17 08:20 300 MG Atorvastatin Calcium (Lipitor Tab) 80 mg DAILY PO 01/20/17 09:00 02/19/17 08:59 01/20/17 08:19 80 MG Furosemide (Lasix Tab) 80 mg BID17 PO 01/19/17 17:00 02/18/17 16:59 Future Hold 01/20/17 08:19 80 MG Isosorbide Mononitrate (Imdur Ext Rel Tab) 15 mg QAM PO 01/20/17 09:00 02/19/17 08:59 01/20/17 08:18 15 MG Levothyroxine Sodium (Synthroid Tab) 50 mcg DAILYBB PO 01/20/17 06:00 02/19/17 05:59 01/20/17 06:04 50 MCG Losartan Potassium (coZAAR TAB) 25 mg DAILY PO 01/20/17 09:00 02/19/17 08:59 01/20/17 08:17 25 MG Metolazone (Zaroxolyn Tab) 2.5 mg Sa@0900 PO 01/21/17 09:00 02/20/17 08:59 Future Hold Metoprolol Succinate (Toprol Xl Tab) 25 mg BID PO 01/19/17 21:00 02/18/17 20:59 01/20/17 08:17 25 MG Sertraline HCl (Zoloft Tab) 100 mg DAILY PO 01/20/17 09:00 02/19/17 08:59 01/20/17 08:21 100 MG Aspirin (Ecotrin Tab) 81 mg DAILY PO 01/20/17 09:00 02/19/17 08:59 01/20/17 08:18 81 MG Insulin Aspart (novoLOG ASPART) SLIDING SCALE If C... ACHS SC 01/20/17 07:00 02/19/17 06:59 01/20/17 07:00 13 UNITS Insulin Detemir (Levemir Flexpen/ FlexTouch) BID SC 01/19/17 21:00 02/18/17 20:59 01/20/17 08:27 20 UNIT Acetaminophen (Tylenol Tab) 1,000 mg Q8 PO 01/19/17 14:00 02/18/17 13:59 01/20/17 06:04 1,000 MG Tramadol HCl (Ultram Tab) 50 mg Q8H PRN PO 01/19/17 12:57 02/18/17 12:56 01/20/17 06:07 50 MG Acetaminophen (Tylenol Tab) 650 mg ONE ONCE PO 01/20/17 10:15 01/20/17 10:16 UNV Diphenhydramine HCl 25 mg 25 mg ONE ONCE PO 01/20/17 10:15 01/20/17 10:16 UNV Furosemide/Syringe (Lasix Inj/ Syringe) 2 ml @ 4 mls/min ONE ONCE IV 01/20/17 10:15 01/20/17 10:16 UNV
--- NOTE | 2017-01-20 11:29 | DIAGNOSTIC IMAGING REPORT ---
RIGHT HAND MIN 3 VIEWS ROUTINE CLINICAL HISTORY: diabetic hand wound s/p amputation 8 weeks ago, pus draining Right pain COMPARISON: 10/23/2016 DISCUSSION: Evidence for prior amputation of the phalanges of the second and third fingers as well as the distal aspect of the second metacarpal. Oblique fracture fourth metacarpal. Partial amputation distal phalanx of the thumb. No true lytic or blastic process. Moderate soft tissue edema. IMPRESSION: Postoperative changes as described. Soft tissue edema. Oblique fracture fourth metacarpal Electronically signed by: Tyrone Shi M.D. 01/20/2017 11:28 AM Dictated Date/Time: 01/20/2017 11:26 AM
[2017-01-20] MEDS ORDERED: VANCOMYCIN CONSULT ACTIVE PRN (11:30)
[2017-01-20] MEDS ORDERED: FUROSEMIDE INJ 20 MG in SYRINGE 0 ML IV SCH (12:00)
[2017-01-20] MEDS ORDERED: VANCOMYCIN INJ 2,400 MG in SODIUM CHLORIDE 0.9% 500ML 500 ML IV ONE (12:00)
--- NOTE | 2017-01-20 16:10 | Orthopedic Progress Note ---
Orthopedic Progress Note Date of Service January 20, 2017. Subjective Additional Notes: 66 yo wm known to practice with h/o multiple combidities and right finger amputations. Full progress note dictated today. Objective Date Time Temp Pulse Resp B/P Pulse Ox O2 Delivery O2 Flow Rate FiO2 01/20/17 08:00 36.3 62 16 118/50 95 Room Air 01/20/17 04:37 36.5 60 20 100/48 90 Room Air 01/20/17 04:00 Room Air 01/20/17 00:00 Room Air 01/19/17 23:46 36.4 63 22 121/64 100 Room Air 01/19/17 20:27 36.8 60 20 129/50 100 Room Air 01/19/17 20:00 Room Air 01/19/17 16:27 36.4 58 18 114/54 94 Room Air 01/19/17 16:00 Room Air Laboratory Results 24 Hours: Test 01/20/17 05:38 Hematocrit 23.0 % Hemoglobin 7.8 g/dL Assessment & Plan Assessment: Right 4th Metacarpal Fx Right 3rd finger amputation site drainage. Plan: See progress note dictated today. Full consult to be dictated by Dr Cee
--- NOTE | 2017-01-20 16:33 | ORTHOPEDIC PROGRESS NOTE ---
DATE: 01/20/2017 SUBJECTIVE: The patient is a 66-year-old white male known to our practice who has multiple comorbidities including diabetes mellitus type 2 with neuropathy, adjustment disorder with depression, CAD, CHF, implantable ICD, dyslipidemia, diabetic retinopathy, gout, history of hematuria, rheumatic fever, history of MRSA infection, hypertension, hypothyroidism, history of MSSA bacteremia in the past, nonischemic cardiomyopathy; who was admitted for hemothorax at this admission. During the process it was found that he was having some drainage from a site from his right hand where he had undergone amputation of his right middle finger by Dr. Henriquez. This was done in and around October. He has also had an index finger amputation as well as a partial thumb amputation of the right hand. The patient states that ever since the index finger was done, he has had a little bit of drainage off and on but has never gotten erythematous, painful, etc. Some days it would not drain at all and some days it would drain some whitish fluid that they would clean off. He was also noted to have an oblique fourth metacarpal fracture noted on x-ray. OBJECTIVE: EXTREMITIES: On examination of his right hand, they have the hand wrapped in a light Kerlix gauze and this is removed. On examination the area of the middle finger, amputation site he has a scant amount of whitish to clear-whitish purulence that is wiped off easily. However, on pressing on the area, I cannot express any more of this fluid out. This had been cultured per nursing. There is no overt erythema and there is no pain on palpation over this area. He does have some slight pain over the fourth metacarpal area obviously, but currently it has no gross infection of the wound or the middle finger amputation was taking care of. ASSESSMENT: 1. Draining wound, status post middle finger amputation in October of 2016. 2. Oblique fourth metacarpal fracture. PLAN: I will discuss this with Dr. Cee who is seconds handler this weekend. He will likely needed to be splinted and it is possible that he might have to undergo ORIF of the fourth metacarpal fracture at some point in time in the near future. I will leave this at the discretion of Dr. Cee who will see patient throughout the weekend.
[2017-01-21] VITALS (7 sets, daily range): BP systolic 104–129; BP diastolic 43–67; PULSE 69–74; TEMP 36.4–36.9; O2SAT 92–94
[2017-01-21] MEDS: LEVOTHYROXINE 50 MCG TAB PO SCH (05:37)
[2017-01-21 06:18] LABS: BUN/CREATININE RATIO 23.2 (10-20); CALCIUM 8.1 mg/dl (8.5-10.1); CREATININE 2.7 mg/dl (0.60-1.40); POTASSIUM 4.8 mmol/L (3.5-5.1)
[2017-01-21] MEDS: ACETAMINOPHEN 500 MG TAB PO SCH ×3 (06:38→20:53)
[2017-01-21] MEDS: INSULIN ASPART 100 UNITS/ML 3 ML PEN SC SCH ×4 (07:00→20:56)
--- NOTE | 2017-01-21 07:40 | Surgery Progress Note ---
Subjective Date of Service: January 21, 2017. Pt. notes pain when his pleurex is drained. Objective Vitals Date Time Temp Pulse Resp B/P Pulse Ox O2 Delivery O2 Flow Rate FiO2 01/21/17 04:30 36.7 74 20 129/67 94 Room Air 01/21/17 04:00 Room Air 01/21/17 00:00 Room Air 01/20/17 23:39 36.6 75 20 128/58 94 Room Air 01/20/17 22:15 36.6 76 16 149/72 96 01/20/17 22:00 36.6 88 16 156/64 95 01/20/17 22:00 36.7 85 16 149/72 95 01/20/17 21:30 36.5 86 16 131/88 96 01/20/17 21:00 36.7 86 18 152/66 95 01/20/17 20:28 36.5 82 16 146/65 96 01/20/17 20:15 36.6 80 20 132/59 96 01/20/17 20:00 Room Air 01/20/17 19:20 36.7 71 18 138/67 93 Room Air 01/20/17 18:15 36.7 64 20 132/54 97 01/20/17 17:30 70 15 146/55 95 01/20/17 17:00 66 21 134/78 95 01/20/17 16:45 36.5 64 18 117/54 96 01/20/17 16:30 65 18 124/57 97 01/20/17 16:15 66 20 126/55 96 01/20/17 16:00 36.7 64 18 120/55 95 01/20/17 16:00 Room Air 01/20/17 15:45 36.7 66 10 148/87 95 01/20/17 12:00 Room Air 01/20/17 12:00 36.3 66 20 104/46 95 Room Air 01/20/17 08:00 95 Room Air 01/20/17 08:00 36.3 62 16 118/50 95 Room Air Physical Exam General: No distress Pulmonary: + pertinent finding (decreased at right base), No accessory muscle use, No respiratory distress Neurologic: + alert & oriented x 3 Drains / Tubes pleurex (righ tsided drained for 50 cc bloody fluid today ) Assessment & Plan 66 year old male with right pleural effusion -effusion likely the result of trauma/fall pt. suffered several days ago -pleurex placed (01/19/17) -cultures on pleural fluid remain (-) -cytology (-) for malignancy -continue daily drainage of pleurex -pt. may require eventual placement of TPA to aid drainage
[2017-01-21 07:49] LABS: BASO % 0.3 %; BASO ABS # 0.03 K/uL (0-0.2); EOS % 3.5 %; HEMATOCRIT 25.1 % (42-52); IG% 1.2 %; LYMPH % 18.6 %; LYMPH ABS # 1.65 K/uL (1.2-3.4); MEAN CELL VOLUME 85.4 fL (80-100); MEAN CORPUSCULAR HEMOGLOBIN 29.6 pg (25-34); MEAN CORPUSCULAR HGB CONC 34.7 g/dl (32-36); MEAN PLATELET VOLUME 8.7 fL (7.4-10.4); MONO % 7.7 %; NEUT % 68.7 %; PLATELET COUNT 200 K/uL (130-400); RED BLOOD COUNT 2.94 M/uL (4.7-6.1); WHITE BLOOD COUNT 8.87 K/uL (4.8-10.8)
[2017-01-21 07:53] LABS: C-REACTIVE PROTEIN 20.7 mg/dl (0-0.29)
[2017-01-21] MEDS: SODIUM CHLORIDE 0.9% 1000ML 1,000 ML IV SCH (08:00)
[2017-01-21 08:14] LABS: COMPLETE YES
[2017-01-21] MEDS: INSULIN DETEMIR FLEXPEN/FLEX TOUCH 100 UNITS/ML 3ML SC SCH ×2 (09:00→20:56)
[2017-01-21] MEDS ORDERED: METOLAZONE 2.5 MG TAB PO SCH (09:00)
[2017-01-21] MEDS: ASPIRIN 81 MG ECTAB PO SCH (09:32)
[2017-01-21] MEDS: ATORVASTATIN 40 MG TAB PO SCH (09:33)
[2017-01-21] MEDS: METOPROLOL SUCC 25MG EXT REL TAB PO SCH ×2 (09:34→20:52)
[2017-01-21] MEDS: ISOSORBIDE MONONITRATE 30 MG TABCR PO SCH (09:34)
--- NOTE | 2017-01-21 09:34 | ORTHOPEDIC CONSULTATION ---
DATE OF CONSULTATION: 01/21/2017 CHIEF COMPLAINT: Right hand drainage. HISTORY OF PRESENT ILLNESS: The patient is a 66-year-old male who has previously been treated by our practice for multiple finger infections. PAST MEDICAL HISTORY: Including diabetes mellitus type 2 with neuropathy, adjustment disorder, depression, coronary artery disease, congestive heart failure, implantable ICD, dyslipidemia, diabetic neuropathy, gout, history of hematuria and rheumatoid fever, history of MRSA infection, hypertension, hyperthyroidism, history of MSSA bacteremia in the past, ischemic cardiomyopathy. He has sustained a fall about 2 weeks ago while he was ambulating. He has a prosthesis, utilizes for lower extremity status post amputation. He fell and landed on a sink. He sustained multiple rib fractures, he had worsening symptoms and was admitted for treatment of the hemothorax. He states he really does not have any sensation in his hand. He does not recall any trauma to the hand. He is status post amputation of both the index as well as the long finger and partial amputation of thumb previously. He is about 6-8 weeks out from amputation of right middle finger, per Dr. Henriquez. He states that he has had a bit of drainage off and on since the time of the surgery but has never gotten erythematous or painful. He states that over the last several days his drainage has lessened. Denies any pain in the hand, but he states he essentially has no sensation in the hand either. Denies fevers or chills currently. PAST SURGICAL HISTORY: Multiple amputations of digits both the right as well as left hand as well as a BKA on the left side, coronary artery stent placement, placement of an ICD. FAMILY HISTORY: Diabetes, coronary artery disease. SOCIAL HISTORY: Denies smoking, alcohol or drug use. ALLERGIES: OMEPRAZOLE. MEDICATIONS: Allopurinol, aspirin, Lipitor, Lasix, glyburide, insulin, Imdur, Synthroid, Cozaar, Zaroxolyn, metoprolol, and Zoloft. REVIEW OF SYSTEMS: As above. PHYSICAL EXAMINATION: VITAL SIGNS: Afebrile. Vital signs stable. GENERAL APPEARANCE: Alert and oriented x3, no acute distress. Mood and affect are normal. He is pleasant and cooperative with examination. HEENT: Atraumatic. CHEST: Tender to palpation. ABDOMEN: Soft. EXTREMITIES: Examination of the right upper extremity. He is status post partial amputation of the thumb as well as complete amputation of the index and long fingers. He has contractures of the ring and small fingers, is able to flex but has minimal active extension of these digits. There is a nonhealing wound over the region of his previous amputation from the long finger. There is fibrinous material well as some serous drainage present. On palpation, there is no fluctuance. Palpation along the fourth metacarpal did not elicit any pain, but he states he essentially has no sensation in the hand. Left upper extremity is significant for previous digit amputation, but no open wounds or drainage from the site. X-rays of the right hand demonstrate a fourth metacarpal fracture and evidence of his previous amputations. No osteolytic lesions in the bone are appreciated. ASSESSMENT: Right hand fourth metacarpal fracture and nonhealing wound from previous third digit amputation. PLAN: For now, I would just continue with local wound care. There is no erythema. He has some fibrinous drainage and some serous drainage consistent with a nonhealing wound, but I do not seen any fluctuance or overt purulence from the wound at this time. He states that what he has currently has been about the amount of drainage that he has had ever since he has had the procedure. We will get further recommendations for wound care from the wound care clinic. Will also plan for an MRI of the hand once his kidney function has improved, to rule out any osteomyelitis more proximally in metacarpal. With regards to the metacarpal fracture, he does not really have any function in this hand, nor does he experience any sensation or pain in this hand. My feeling would be to continue with just a soft dressing at this time, to prevent any pressure issues from splinting and also to facilitate wound care over the nonhealing wound from his previous amputation.
[2017-01-21] MEDS: LOSARTAN POTASSIUM 25 MG TAB PO SCH (09:35)
[2017-01-21] MEDS: ALLOPURINOL 300 MG TAB PO SCH (09:35)
[2017-01-21] MEDS: SERTRALINE HCL 50 MG TAB PO SCH (09:35)
[2017-01-21] MEDS: MoRPHine SULFATE 2 MG/ML CARP IV PRN ×2 (09:41→12:57)
--- NOTE | 2017-01-21 09:55 | Pharmacy Progress Note ---
Glycemic Control: Progress Nt Date of Service January 21, 2017. Scope Glycemic Pharmacist consulted by Dr Durbin on 01/19 for glycemic control and to write orders per [facility] inpatient glycemic control protocol. Objective Accuchecks BSG (last 24hrs): Test 01/20/17 11:40 01/20/17 16:23 01/20/17 20:33 01/21/17 05:49 Bedside Glucose 190 mg/dl (70-99) 167 mg/dl (70-99) 200 mg/dl (70-99) Random Glucose 220 mg/dl (70-99) Test 01/21/17 06:46 Bedside Glucose 237 mg/dl (70-99) Laboratory Data (last 24hrs) Test 01/21/17 05:49 01/21/17 07:33 Anion Gap 8.0 mmol/L BUN/Creatinine Ratio 23.2 Blood Urea Nitrogen 63 mg/dl Creatinine 2.70 mg/dl Potassium Level 4.8 mmol/L Sodium Level 137 mmol/L White Blood Count 8.87 K/uL Red Blood Count 2.94 M/uL Hemoglobin 8.7 g/dL Hematocrit 25.1 % Mean Corpuscular Volume 85.4 fL Mean Corpuscular Hemoglobin 29.6 pg Mean Corpuscular Hemoglobin Concent 34.7 g/dl Platelet Count 200 K/uL Mean Platelet Volume 8.7 fL Neutrophils (%) (Auto) 68.7 % Lymphocytes (%) (Auto) 18.6 % Monocytes (%) (Auto) 7.7 % Eosinophils (%) (Auto) 3.5 % Basophils (%) (Auto) 0.3 % Neutrophils # (Auto) 6.09 K/uL Lymphocytes # (Auto) 1.65 K/uL Monocytes # (Auto) 0.68 K/uL Eosinophils # (Auto) 0.31 K/uL Basophils # (Auto) 0.03 K/uL HbA1c: Test 01/20/17 05:38 Hemoglobin A1c 8.2 % (4.5-5.6) H Recent Pertinent Medications Outpatient Anti-diabetic Regimen: * Levemir 80 units SC BID * Novolin R 3 units SC BIDM * Glyburide 5 mg po qAM * A1c = 9.6 % on 10/24/16 The patient is currently receiving: * Basal insulin with LEVEMIR 20 units SQ BID (10 units for BSG < 100 mg/dL) * Correctional Insulin with NOVOLOG per scale ACHS or Q6hrs while NPO * Goal Range: Low 110 mg/dL - High 140 mg/dL * Correction Factor: 12 mg/dL/unit * Nutritional / Prandial insulin per carb ratio of 1 unit per 4 grams CHO consumed Risk Factors for Insulin Resistance: * Surgery: POD 2 s/p Pleurex cath placement * Diet: T2DM, low Na - ave of 25 gm CHO w/ each meal Risk Factors for Insulin Sensitivity: * Increased SCr Assessment & Plan ASSESSMENT: 01/19/17 * ADA & AACE recommend a goal blood sugar range 140-180 mg/dl for the majority of critically ill & non-critically ill patients. However, more stringent targets may be selected in individual cases. * 66 yo M with T2DM well-known to our service, admitted with abdominal pain and found to have a hemothorax and multiple rib fractures 2nd fall 2 weeks ago. * Recent admission Oct-Nov 2016 for sepsis s/p finger amputation * BSG decreased from 292 to 164 mg/dL without any po intake or insulin administered in-house. Spoke w RN who noted that patient received AM dose of Levemir at home [employer]. * For today, will significantly loosen Novolog as compared to what worked for previous admissions as patient has significantly more basal on-board 2nd home dose received this AM * Outpatient regimen is heavily weighted towards basal. Starting tonight, will do the following: * Will adjust significantly to aim for ~50/50 mix of basal/bolus * Will resume similar regimen that was appropriate during previous admission(s) * Will use Levemir instead of Lantus as this is what the patient uses at home 01/20/17 * BSG slightly elevated to 171 mg/dL this AM. Will increase Lantus to weight- based estimate and stress of 2. Decrease to stress of 1 for hypoglycemia. * Novolog was changed just this AM after successful transition from home Levemir dose to inpatient requirements this AM. No data to support further change at this time. 01/21/17 * Patient received 97 units on 01/19 (almost entirely basal) and 78 units yesterday (about 1/2 basal) * BSGs have started to increase so I anticipate increased basal requirements compared to what is currently ordered * Est TDD at least 100 units * Will plan to increase basal dose but will need to be cautious w/ adjustments b /c of rising SCr and potential for accumulation of insulin PLAN FOR INPATIENT GLYCEMIC CONTROL: * Increase Levemir to 10 or 25 units SQ BID - based upon BSG * Continue correction factor of 12 mg/dl/unit * Continue carb ratio of 1 unit per 4 grams CHO consumed * Continue goal range of Low 110 mg/dL - High 140 mg/dL * Please note that the plan above was derived based on current level of insulin resistance and hospital stress. These recommendations are appropriate for inpatient admission only. Plan of care upon discharge will need to be reassessed to avoid potential outpatient hypo/hyperglycemia. Thank you.
[2017-01-21] MEDS ORDERED: VANCOMYCIN INJ 1,750 MG in SODIUM CHLORIDE 0.9% 500ML 500 ML IV SCH (12:00)
[2017-01-21] MEDS: POLYETHYLENE (MIRALAX) 17 GM PACK PO PRN (12:57)
--- NOTE | 2017-01-21 14:52 | Progress Note ---
Medicine Progress Note Date & Time of Visit: January 21, 2017 at 14:25. Subjective 66 yo M with h/o recent admission for septic shock 2/2 finger infection presents with dyspnea 2/2 hemothorax on the R 2/2 trauma two weeks ago -denies headaches -denies blurry vision -has persistent issues with lightheadedness provoked today by EOM movements -pt is concerned about repeat falls at home but cannot identify a pattern -states that the falls hit him all of a sudden -denies SOB and persistent CP that is well-controlled. -reports feeling better overall since blood given yesterday -tolerating PO Objective Last 8 Hrs Date Time Temp Pulse Resp B/P Pulse Ox O2 Delivery O2 Flow Rate FiO2 01/21/17 11:29 36.4 69 18 109/60 92 Room Air 01/21/17 07:50 36.4 72 19 114/66 93 Room Air Physical Exam: GEN: WNWD, in no acute distress, alert and appropriate, clinically appears improved. HEENT: NC/AT, pupils are equal and round, normal sclerae/conjunctivae, MMM CARDIO: reg rate, S1/2 heard without m/g/r LUNGS: CTA bilaterally, no crackles, rales or wheezes, good diaphragmatic excursion, chest wall TTP in anterior chest on the R. BACK: Pleurex catheter in place and taped against body-blood tinged drainage is present. Dressing is dry and intact. ABD: soft, non-tender, non-distended, no rebound or guarding, +BS EXTREMITY: Both hands have multiple finger amputations. R hand: purulent drainage over recent surgical wound which is closed, no surrounding erythema, sensation decrease in the hand. LLE BTK amputation-skin clear and leg is warm and well-perfused. RLE -multiple closed scab wounds present on leg, DP2+ and warm and well perfused. Sensation low in this area. Sensation loss in combs distribution on R hand NEURO: CN 2-12 grossly intact aside from sensation loss as above. EOMI intact and patient reports lightheadedness with eye movement. MUSC: slow to move 2/2 pain, moves all extremities equally. SKIN: warm and dry and wounds as above. There is a wound on his posterior neck from recent ICU stay and strap used to hold ventilator in place. Laboratory Results: 01/21/17 07:33 Red Blood Count 2.94, Mean Corpuscular Volume 85.4, Mean Corpuscular Hemoglobin 29.6, Mean Corpuscular Hemoglobin Concent 34.7, Mean Platelet Volume 8.7, Neutrophils (%) (Auto) 68.7, Lymphocytes (%) (Auto) 18.6, Monocytes (%) (Auto) 7.7, Eosinophils (%) (Auto) 3.5, Basophils (%) (Auto) 0.3, Neutrophils # (Auto) 6.09, Lymphocytes # (Auto) 1.65, Monocytes # (Auto) 0.68, Eosinophils # (Auto) 0.31, Basophils # (Auto) 0.03 01/21/17 05:49 Test 01/19/17 05:30 01/19/17 05:37 01/19/17 08:40 01/19/17 08:42 Prothrombin Time 10.5 SECONDS (9.0-12.0) Prothromb Time International Ratio 1.0 (0.9-1.1) Total Bilirubin 0.4 mg/dl (0.2-1) Direct Bilirubin 0.1 mg/dl (0-0.2) Aspartate Amino Transf (AST/SGOT) 10 U/L (15-37) Alanine Aminotransferase (ALT/SGPT) 18 U/L (12-78) Alkaline Phosphatase 127 U/L (45-117) Total Protein 6.9 gm/dl (6.4-8.2) Albumin 3.2 gm/dl (3.4-5.0) Beta-Hydroxybutyric Acid 1.28 mg/dL (0.2-2.81) Thyroid Stimulating Hormone (TSH) 5.110 uIu/ml (0.300-4.500) Bedside Troponin I 0.040 ng/ml (0-0.045) Pleural Fluid Source RIGHT LUNG Pleural Fluid Color RED Pleural Fluid Appearance BLOODY Pleural Fluid WBC 2053 /uL Pleural Fluid RBC 1652950 /uL Pleural Fluid pH 7.21 (7.3-7.4) Pleural Fluid Polynuclear WBCs % 36.8 % Pleural Fluid Mononuclear WBCs % 63.2 % Pleural Fluid Total Protein 5.4 g/dl Pleural Fluid LDH 334 IU Pleural Fluid Glucose 199 mg/dl Pleural Fluid Amylase 21 U/L Pleural Fluid Cholesterol 321 mg/dL Bedside Blood Gas pH (LAB) 7.25 (7.35-7.45) Bedside Blood Gas pCO2 (LAB) 56 mmHg (35-46) Bedside Blood Gas pO2 (LAB) < 32 mmHg (80-95) Bedside Blood Gas HCO3 (LAB) 25 meq/L (19-24) Bedside Blood Gas Total CO2 26 mEq/l (24-31) Bedside Blood Gas Base Excess (LAB) -3.0 meq/L (-9-1.8) Bedside Blood Gas O2 Saturation 35.0 % (90-95) Test 01/19/17 18:30 01/20/17 00:00 01/20/17 05:38 01/21/17 05:49 Urine Color DK YELLOW Urine Appearance CLEAR (CLEAR) Urine pH 5.0 (4.5-7.5) Urine Specific [place] 1.029 (1.000-1.030) Urine Protein NEG (NEG) Urine Glucose (UA) 1+ (NEG) Urine Ketones NEG (NEG) Urine Occult Blood NEG (NEG) Urine Nitrite NEG (NEG) Urine Bilirubin NEG (NEG) Urine Urobilinogen NEG (NEG) Urine Leukocyte Esterase NEG (NEG) Urine Random Creatinine 260.0 mg/dl Urine Random Sodium 5 mEq/L Estimated Average Glucose 189 mg/dl Hemoglobin A1c 8.2 % (4.5-5.6) Magnesium Level 2.4 mg/dl (1.8-2.4) Anion Gap 8.0 mmol/L (3-11) Est Creatinine Clear Calc Drug Dose 34.4 ml/min Estimated GFR () 27.2 Estimated GFR (Non- 23.5 BUN/Creatinine Ratio 23.2 (10-20) Calcium Level 8.1 mg/dl (8.5-10.1) C-Reactive Protein 20.70 mg/dl (0-0.29) Random Vancomycin Level 8.5 mcg/ml Test 01/21/17 07:33 01/21/17 11:18 White Blood Count 8.87 K/uL (4.8-10.8) Red Blood Count 2.94 M/uL (4.7-6.1) Hemoglobin 8.7 g/dL (14.0-18.0) Hematocrit 25.1 % (42-52) Mean Corpuscular Volume 85.4 fL (80-100) Mean Corpuscular Hemoglobin 29.6 pg (25-34) Mean Corpuscular Hemoglobin Concent 34.7 g/dl (32-36) Platelet Count 200 K/uL (130-400) Mean Platelet Volume 8.7 fL (7.4-10.4) Neutrophils (%) (Auto) 68.7 % Lymphocytes (%) (Auto) 18.6 % Monocytes (%) (Auto) 7.7 % Eosinophils (%) (Auto) 3.5 % Basophils (%) (Auto) 0.3 % Neutrophils # (Auto) 6.09 K/uL (1.4-6.5) Lymphocytes # (Auto) 1.65 K/uL (1.2-3.4) Monocytes # (Auto) 0.68 K/uL (0.11-0.59) Eosinophils # (Auto) 0.31 K/uL (0-0.5) Basophils # (Auto) 0.03 K/uL (0-0.2) RDW Standard Deviation 45.8 fL (36.4-46.3) RDW Coefficient of Variation 14.7 % (11.5-14.5) Immature Granulocyte % (Auto) 1.2 % Immature Granulocyte # (Auto) 0.11 K/uL (0.00-0.02) Red Blood Cell Morphology Unremarkable Erythrocyte Sedimentation Rate 33 mm/hr (0-14) Bedside Glucose 209 mg/dl (70-99) Date/Time Source Procedure Growth Status 01/20/17 12:30 Blood Blood Culture Pending Received 01/19/17 18:30 Urine , Clean Catch Urine Culture - Final NO GROWTH - LESS THAN 1,000 COLONIES/ML Complete 01/20/17 00:00 Drainage - Surface Hand Right Gram Stain - Final Resulted 01/20/17 00:00 Wound Culture - Preliminary Staphylococcus Aureus Staph Species Resulted Last 24 Hours Test 01/20/17 16:23 01/20/17 20:33 01/21/17 05:49 01/21/17 06:46 Bedside Glucose 167 mg/dl 200 mg/dl 237 mg/dl Sodium Level 137 mmol/L Potassium Level 4.8 mmol/L Chloride Level 102 mmol/L Carbon Dioxide Level 27 mmol/L Anion Gap 8.0 mmol/L Blood Urea Nitrogen 63 mg/dl Creatinine 2.70 mg/dl Est Creatinine Clear Calc Drug Dose 34.4 ml/min Estimated GFR () 27.2 Estimated GFR (Non- 23.5 BUN/Creatinine Ratio 23.2 Random Glucose 220 mg/dl Calcium Level 8.1 mg/dl C-Reactive Protein 20.70 mg/dl Random Vancomycin Level 8.5 mcg/ml Test 01/21/17 07:33 01/21/17 11:18 White Blood Count 8.87 K/uL Red Blood Count 2.94 M/uL Hemoglobin 8.7 g/dL Hematocrit 25.1 % Mean Corpuscular Volume 85.4 fL Mean Corpuscular Hemoglobin 29.6 pg Mean Corpuscular Hemoglobin Concent 34.7 g/dl Platelet Count 200 K/uL Mean Platelet Volume 8.7 fL Neutrophils (%) (Auto) 68.7 % Lymphocytes (%) (Auto) 18.6 % Monocytes (%) (Auto) 7.7 % Eosinophils (%) (Auto) 3.5 % Basophils (%) (Auto) 0.3 % Neutrophils # (Auto) 6.09 K/uL Lymphocytes # (Auto) 1.65 K/uL Monocytes # (Auto) 0.68 K/uL Eosinophils # (Auto) 0.31 K/uL Basophils # (Auto) 0.03 K/uL RDW Standard Deviation 45.8 fL RDW Coefficient of Variation 14.7 % Immature Granulocyte % (Auto) 1.2 % Immature Granulocyte # (Auto) 0.11 K/uL Red Blood Cell Morphology Unremarkable Erythrocyte Sedimentation Rate 33 mm/hr Bedside Glucose 209 mg/dl Assessment & Plan 66 yo M with h/o recent admission for septic shock 2/2 finger infection presents with dyspnea 2/2 hemothorax on the R 2/2 trauma two weeks ago 1. Dyspnea and chest pain 2/2 R hemothorax with displaced rib fractures-s/p thoracentesis on 01/19 with Pleurex catheter placement in the ER by CT surg team. 1500ml out initially and 350 out overnight. Supportive care with pain control. Repeat CXR improved and breathing reported to be better per patient. 01/21: PleurX catheter output was 200cc overnight. Continues to drain blood- tinged fluid. Pain from rib fractures is controlled and breathing has improved ; no hypoxia. Cont incentive spirometry. 2. Rib fractures-multiple anterior rib fractures-supportive care as above. 3. R hand wound-patient reports sensation loss in R hand since amputation 6-8 weeks ago in a glove distribution. He was admitted for septic source with a finger infection as the source. It appears the wound is closed but there is purulent material over the area. Pt denies any pain, fevers, or chills. This patient appears to have very poor wound care with a drainage-soaked bandage that is old-appearing. Wound care consulted. Will xray the hand to look for soft tissue gas or presence of osteo. Will obtain ESR and CRP and trend this-- of note, no leukocytosis is present. Will cover with Vanc empirically-- although prior cultures from this wound grew MSSA he has a h/o MRSA and with recent hospitalization has increased risk for this. Will consult Ortho-hand for evaluation. 01/21: still has glove-distribution numbness that is present. Wound is closed and no longer draining. Cont empiric abx until we can rule out osteomyelitis in setting of elevated CRP, recent operation in this area and known poor wound care post-op in an uncontrolled diabetic. Awaiting ID consult. Prefer to get contrasted MRI study but cannot obtain until kidney function improves. Ortho aware of wound and 4th metacarpal fracture-appreciate recs. 4. 4th metacarpal fracture in had 2/2 fall -per Ortho as above. 5. Anemia-acute, likely 2/2 acute blood loss in addition to dilution effect from IVF overnight given for AUR. Catheter still draining some blood-tinged fluid so expect a further drop and patient is having significant fatigue. Plan to transfuse two units at this time. 01/21: output from chest tube has slowed. H/H improved to 8.7/25. Trend CBC in am. 6. PATRICIA in setting of CKD IV-Creat at baseline. Cont home meds, renally dose meds and avoid nephrotoxic substances. Etiology is likely acute urinary retention yesterday. Fluid bolus given overnight and Newby placed yesterday. Creat up to 2.5 today. Cont [place] for now and trend PRP in am. Pt reports no issues at home RE: BPH symptoms, so will ensure adequately hydrated prior to Newby removal trial without starting tamsulosin. 01/21: Urine Na was 5 in setting of recent Lasix use, FeNa <0.1% -->severe dehydration present. Cont IVF throughout the day today and watch for improvement in the morning. Cont Newby for now for accurate I/O assessment. Will consult Nephro if no improvement tomorrow. Avoiding contrasted studies at this time. 7. Acute urinary retention-poss 2/2 BPH but patient denies symptoms of this. Poss also 2/2 significant dehydration. Expect to be fine once we rehydrate him and remove the Newby. 8. DMII longstanding with known complications of neuropathy and vasculopathy- cont ISS/Lantus with pharmacy consult for assist. Blood sugars are consistently >200. Pharmacy is increasing Levemir-appreciate recs. 9. Idiopathic dilated cardiomyopathy with severe LV dysfunction (Dx 2000): will monitor clinically and check daily weights post-procedure. Appears euvolemic at this time. Cont home meds aside form ASA in setting of hemothorax and PATRICIA. Lasix/metolazone held in setting of PATRICIA. 10. Superimposed CAD s/p stent placement for high grade LAD stenosis-in setting of prior stents, will not stop ASA at this time. 11. Hypothyroidism-cont home Synthroid, TSH slightly elevated to 5. Defer to outpatient PCP for adjustment unless fatigue doesn't improve with blood administration. 01/21: Pt feels better today after blood transfusion yesterday 12. Gout-no acute flares, cont allopurinol 13. Dysequilibrium- likely multifactorial etiology in the setting of diabetic neuropathy with vasculopathy and likely autonomic dysfunction. He has multiple amputations contributing to balance loss in the setting of possible hypoglycemic episodes as described. He also has a h/o recent trauma to the back of his head after feeling unsteady and falling on the concrete outside of his house. He had ? loss of consciousness at that time. CT head on admission was negative for any acute stroke, and clinically this is not apparent. However , source of vertigo/dysequilibrium in the setting of trauma is uncertain. Enlisted the help of Neurology. Will obtain a non-contrast MRI head and MRA neck to ensure no issues with posterior circulation. Contrasted study is contraindicated in the setting of PATRICIA. Full Code Diet-2gm Na restric. ADA DVT proph-hold in setting of bleeding and recent procedure, consider starting when H/H stable and OK with CT surg team. Dispo-cont to monitor pt on telemetry Cristina Durbin DO [facility] Hospitalist Consultants: Neuro, ID, Ortho Current Inpatient Medications: Current Inpatient Medications Medications (Trade) Dose Ordered Sig/Ifeanyi Route Start Time Stop Time Status Last Admin Dose Admin Glucose (Glucose 40% Gel) 15-30 GRAMS 15 GRAMS... UD PRN PO 01/19/17 08:15 02/18/17 08:14 Glucose (Glucose Chew Tab) 4-8 Tablets 4 Tabl... UD PRN PO 01/19/17 08:15 02/18/17 08:14 Dextrose (Dextrose 50% 50ML Syringe) 25-50ML OF 50% DW IV FOR... UD PRN IV 01/19/17 08:15 02/18/17 08:14 Glucagon (Glucagon Inj) 1 mg UD PRN SQ 01/19/17 08:15 02/18/17 08:14 Miscellaneous Information (Consult Glycemic Management Pharmacy) 1 ea UD PRN N/A 01/19/17 08:34 02/18/17 08:33 Ondansetron HCl (Zofran Inj) 4 mg Q6H PRN IV 01/19/17 08:15 02/18/17 08:14 Morphine Sulfate (MoRPHine SULFATE INJ) 2 mg Q2H PRN IV 01/19/17 08:15 02/02/17 08:14 01/21/17 12:57 2 MG Polyethylene (Miralax Powder Packet) 17 gm DAILY PRN PO 01/19/17 08:15 02/18/17 08:14 01/21/17 12:57 17 GM Allopurinol (Zyloprim Tab) 300 mg DAILY PO 01/20/17 09:00 02/19/17 08:59 01/21/17 09:35 300 MG Atorvastatin Calcium (Lipitor Tab) 80 mg DAILY PO 01/20/17 09:00 02/19/17 08:59 01/21/17 09:33 80 MG Furosemide (Lasix Tab) 80 mg BID17 PO 01/19/17 17:00 02/18/17 16:59 Future Hold 01/20/17 08:19 80 MG Isosorbide Mononitrate (Imdur Ext Rel Tab) 15 mg QAM PO 01/20/17 09:00 02/19/17 08:59 01/21/17 09:34 15 MG Levothyroxine Sodium (Synthroid Tab) 50 mcg DAILYBB PO 01/20/17 06:00 02/19/17 05:59 01/21/17 05:37 50 MCG Losartan Potassium (coZAAR TAB) 25 mg DAILY PO 01/20/17 09:00 02/19/17 08:59 01/21/17 09:35 25 MG Metolazone (Zaroxolyn Tab) 2.5 mg Sa@0900 PO 01/21/17 09:00 02/20/17 08:59 Future Hold Metoprolol Succinate (Toprol Xl Tab) 25 mg BID PO 01/19/17 21:00 02/18/17 20:59 01/21/17 09:34 25 MG Sertraline HCl (Zoloft Tab) 100 mg DAILY PO 01/20/17 09:00 02/19/17 08:59 01/21/17 09:35 100 MG Aspirin (Ecotrin Tab) 81 mg DAILY PO 01/20/17 09:00 02/19/17 08:59 01/21/17 09:32 81 MG Insulin Aspart (novoLOG ASPART) SLIDING SCALE If C... ACHS SC 01/20/17 07:00 02/19/17 06:59 01/21/17 11:00 12 UNITS Insulin Detemir (Levemir Flexpen/ FlexTouch) BID SC 01/19/17 21:00 02/18/17 20:59 01/21/17 09:00 25 UNIT Acetaminophen (Tylenol Tab) 1,000 mg Q8 PO 01/19/17 14:00 02/18/17 13:59 Future hold 01/21/17 12:58 1,000 MG Tramadol HCl (Ultram Tab) 50 mg Q8H PRN PO 01/19/17 12:57 02/18/17 12:56 01/20/17 19:45 50 MG Vancomycin HCl 1 ea 1 ea UD PRN N/A 01/20/17 11:30 02/19/17 11:29 Sodium Chloride 1,000 ml @ 125 mls/hr Q8H IV 01/21/17 08:00 02/20/17 07:59 01/21/17 08:00 125 MLS/HR Vancomycin HCl/ Sodium Chloride (Vancomycin Inj/ Nss 500ml) 535 ml @ 200 mls/hr TODAY@1200 IV 01/21/17 12:00 01/21/17 16:00 01/21/17 12:00 200 MLS/HR
--- NOTE | 2017-01-21 20:53 | Medical Consult ---
Consultation Date of Consultation: January 21, 2017. Attending Physician: Cristina Durbin DO Reason for Consultation: Postoperative infection right hand, possible osteomyelitis History of Present Illness 66-year-old man with longstanding diabetes and peripheral vascular disease, well known to me from recent hospitalization for staphylococcal sepsis with gangrene of several fingers of his left hand, ultimately requiring amputation, with C difficile Infection diagnosed several weeks ago and treated, who reportedly took fall and subsequent developed severe pain in his right chest with some difficulty breathing. Was found to have multiple displaced rib fractures as well as large hemothorax on CT scan, read by me, and pleural catheter was placed by thoracic surgery. He has had reasonably good healing of his fingers, although has noted some drainage from the amputation site. He does not report any significant fever or chills. He has been started empirically on IV vancomycin. Blood cultures have been negative to date, wound culture growing Staph aureus. Sensitivities are pending. Past Medical/Surgical History Medical Problems: (1) Acute renal injury Status: Acute (2) C. difficile diarrhea Status: Acute (3) Cellulitis of right hand Status: Acute (4) Dehydration Status: Acute (5) Diabetes Status: Acute (6) Hemothorax on right Status: Acute (7) Hyperglycemia Status: Acute (8) Infection of finger Status: Acute (9) Multiple rib fractures Status: Acute (10) Necrotic wound of right hand Status: Acute (11) Pleural effusion, right Status: Acute (12) Right-sided chest pain Status: Acute (13) Septic shock Status: Acute (14) Severe sepsis Status: Acute Medical Problems: (1) Abnormal EKG (2) Acute encephalopathy (3) Adjustment disorder with depressed mood (4) PATRICIA (acute kidney injury) (5) Amputation of right index finger (6) Bacteremia due to Gram-positive bacteria (7) Biventricular ICD (implantable cardioverter-defibrillator) in place (8) CAD (coronary artery disease) (9) CHF (congestive heart failure) (10) Chronic systolic CHF (congestive heart failure) (11) Diabetic retinopathy (12) DM type 2 (diabetes mellitus, type 2) (13) DVT prophylaxis (14) Dyslipidemia (15) Elevated troponin I measurement (16) Gout (17) H/O hematuria (18) H/O: rheumatic fever (19) History of MRSA infection (20) HTN (hypertension) (21) Hypothyroidism (22) Lactic acidemia (23) Lung nodule (24) MSSA bacteremia (25) Need for intravenous access (26) Neuropathy (27) Nonischemic cardiomyopathy (28) Wound dehiscence Surgical Problems: (1) H/O amputation of lesser toe (2) History of amputation of finger of left hand (3) History of implantable cardioverter-defibrillator (ICD) placement (4) Hx of BKA (5) S/P cardiac cath (6) S/P coronary artery stent placement Family History Diabetes mellitus MOTHER FH: CAD (coronary artery disease) FATHER Social History Smoking Status: Never Smoker Smokeless Tobacco Use: No Alcohol Use: none Drug Use: none Marital Status: Housing Status: lives with family Occupation Status: disabled Allergies Coded Allergies: Gemfibrozil (Verified Allergy, Unknown, 10/23/16) Current Inpatient Medications Current Inpatient Medications Medications (Trade) Dose Ordered Sig/Ifeanyi Route Start Time Stop Time Status Last Admin Dose Admin Glucose (Glucose 40% Gel) 15-30 GRAMS 15 GRAMS... UD PRN PO 01/19/17 08:15 02/18/17 08:14 Glucose (Glucose Chew Tab) 4-8 Tablets 4 Tabl... UD PRN PO 01/19/17 08:15 02/18/17 08:14 Dextrose (Dextrose 50% 50ML Syringe) 25-50ML OF 50% DW IV FOR... UD PRN IV 01/19/17 08:15 02/18/17 08:14 Glucagon (Glucagon Inj) 1 mg UD PRN SQ 01/19/17 08:15 02/18/17 08:14 Miscellaneous Information (Consult Glycemic Management Pharmacy) 1 ea UD PRN N/A 01/19/17 08:34 02/18/17 08:33 Ondansetron HCl (Zofran Inj) 4 mg Q6H PRN IV 01/19/17 08:15 02/18/17 08:14 Morphine Sulfate (MoRPHine SULFATE INJ) 2 mg Q2H PRN IV 01/19/17 08:15 02/02/17 08:14 01/21/17 12:57 2 MG Polyethylene (Miralax Powder Packet) 17 gm DAILY PRN PO 01/19/17 08:15 02/18/17 08:14 01/21/17 12:57 17 GM Allopurinol (Zyloprim Tab) 300 mg DAILY PO 01/20/17 09:00 02/19/17 08:59 01/21/17 09:35 300 MG Atorvastatin Calcium (Lipitor Tab) 80 mg DAILY PO 01/20/17 09:00 02/19/17 08:59 01/21/17 09:33 80 MG Furosemide (Lasix Tab) 80 mg BID17 PO 01/19/17 17:00 02/18/17 16:59 Future Hold 01/20/17 08:19 80 MG Isosorbide Mononitrate (Imdur Ext Rel Tab) 15 mg QAM PO 01/20/17 09:00 02/19/17 08:59 01/21/17 09:34 15 MG Levothyroxine Sodium (Synthroid Tab) 50 mcg DAILYBB PO 01/20/17 06:00 02/19/17 05:59 01/21/17 05:37 50 MCG Losartan Potassium (coZAAR TAB) 25 mg DAILY PO 01/20/17 09:00 02/19/17 08:59 01/21/17 09:35 25 MG Metolazone (Zaroxolyn Tab) 2.5 mg Sa@0900 PO 01/21/17 09:00 02/20/17 08:59 Future Hold Metoprolol Succinate (Toprol Xl Tab) 25 mg BID PO 01/19/17 21:00 02/18/17 20:59 01/21/17 09:34 25 MG Sertraline HCl (Zoloft Tab) 100 mg DAILY PO 01/20/17 09:00 02/19/17 08:59 01/21/17 09:35 100 MG Aspirin (Ecotrin Tab) 81 mg DAILY PO 01/20/17 09:00 02/19/17 08:59 01/21/17 09:32 81 MG Insulin Aspart (novoLOG ASPART) SLIDING SCALE If C... ACHS SC 01/20/17 07:00 02/19/17 06:59 01/21/17 16:15 15 UNITS Insulin Detemir (Levemir Flexpen/ FlexTouch) BID SC 01/19/17 21:00 02/18/17 20:59 01/21/17 09:00 25 UNIT Acetaminophen (Tylenol Tab) 1,000 mg Q8 PO 01/19/17 14:00 02/18/17 13:59 Future hold 01/21/17 12:58 1,000 MG Tramadol HCl (Ultram Tab) 50 mg Q8H PRN PO 01/19/17 12:57 02/18/17 12:56 01/20/17 19:45 50 MG Vancomycin HCl 1 ea 1 ea UD PRN N/A 01/20/17 11:30 02/19/17 11:29 Sodium Chloride (Nss 1000ml) 1,000 ml @ 125 mls/hr Q8H IV 01/21/17 08:00 02/20/17 07:59 01/21/17 08:00 125 MLS/HR Review of Systems Constitutional: + weakness, No chills, No fever Eyes: No problem reported ENT: No problem reported Respiratory: + shortness of breath Cardiovascular: + chest pain Abdomen: No problem reported Musculoskeletal: No problem reported Genitourinary - Male: No problem reported Neurologic: No problem reported Psychiatric: No problem reported Endocrine: No problem reported Hematologic / Lymphatic: No problem reported Integumentary: + problem reported ( Drainage from amputation site) Allergic / Immunologic: No problem reported Physical Exam Date Time Temp Pulse Resp B/P Pulse Ox O2 Delivery O2 Flow Rate FiO2 01/21/17 18:57 36.9 70 16 104/43 92 Room Air 01/21/17 16:00 Room Air 01/21/17 15:07 36.7 74 17 104/48 92 Room Air 01/21/17 12:00 94 Room Air 01/21/17 11:29 36.4 69 18 109/60 92 Room Air 01/21/17 08:00 94 Room Air 01/21/17 07:50 36.4 72 19 114/66 93 Room Air 01/21/17 04:30 36.7 74 20 129/67 94 Room Air 01/21/17 04:00 Room Air 01/21/17 00:00 Room Air 01/20/17 23:39 36.6 75 20 128/58 94 Room Air 01/20/17 22:15 36.6 76 16 149/72 96 01/20/17 22:00 36.6 88 16 156/64 95 01/20/17 22:00 36.7 85 16 149/72 95 01/20/17 21:30 36.5 86 16 131/88 96 01/20/17 21:00 36.7 86 18 152/66 95 General Appearance: WD/WN, no apparent distress Head: normocephalic, atraumatic Eyes: normal inspection, EOMI, sclerae normal ENT: normal ENT inspection, pharynx normal Neck: supple, no adenopathy, thyroid normal, trachea midline Respiratory/Chest: lungs clear, no respiratory distress, + decreased breath sounds ( right-sided), + pertinent finding ( right-sided pleural catheter) Cardiovascular: regular rate, rhythm, no gallop, no murmur Abdomen/GI: normal bowel sounds, non tender, soft, no organomegaly Back: normal inspection, no CVA tenderness Extremities/Musculoskelatal: no calf tenderness, + slow capillary refill Neurologic/Psych: alert, oriented x 3 Skin: normal color, no rash, + pertinent finding ( some drainage from the amputation site) Lymphatic: + axillary node abnormality Laboratory Results RUN DATE: 01/21/17 [facility] PAGE 1 RUN TIME: 956 Specimen Inquiry PATIENT: LUZ CRUZ LOC: [place] # : [id number] AGE/SX: 66/M ROOM: E204 REG : 01/19/[address]: Cristina Durbin DO : 1950 BED: 1 DIS : STATUS: ADM IN TLOC: SPEC #: [id number] JONATHAN: 01/20/17-UNK STATUS: RES REQ #: [id number] RECD: 01/20/[address] [place] [address]: Cristina Durbin DO SOURCE: DRAIN-SURF ENTR: 01/20/[address] [facility] [address]: Dustin Iyer M.D. SPDESC: HAND RIGHT Kip Addison D.O. Sensiba, Paul R., M.D. Whitlark, Joseph D., MD ORDERED: SURF WND CU/SMR COMMENTS: Has Specimen Been Obtained/Collected? Y Procedure Result Verified Site GRAM STAIN Final 01/21/17 RESULT RARE GRAM POSITIVE COCCI RARE WBCs SEEN SURFACE WOUND CULTURE Preliminary 01/21/17 Organism 1 STAPHYLOCOCCUS AUREUS QUANITY RARE SENS SENSITIVITY TO FOLLOW Organism 2 STAPH SPECIES QUANITY RARE SENS SENSITIVITY TO FOLLOW Last 24 Hours Test 01/21/17 05:49 01/21/17 06:46 01/21/17 07:33 01/21/17 11:18 Sodium Level 137 mmol/L Potassium Level 4.8 mmol/L Chloride Level 102 mmol/L Carbon Dioxide Level 27 mmol/L Anion Gap 8.0 mmol/L Blood Urea Nitrogen 63 mg/dl Creatinine 2.70 mg/dl Est Creatinine Clear Calc Drug Dose 34.4 ml/min Estimated GFR () 27.2 Estimated GFR (Non- 23.5 BUN/Creatinine Ratio 23.2 Random Glucose 220 mg/dl Calcium Level 8.1 mg/dl C-Reactive Protein 20.70 mg/dl Random Vancomycin Level 8.5 mcg/ml Bedside Glucose 237 mg/dl 209 mg/dl White Blood Count 8.87 K/uL Red Blood Count 2.94 M/uL Hemoglobin 8.7 g/dL Hematocrit 25.1 % Mean Corpuscular Volume 85.4 fL Mean Corpuscular Hemoglobin 29.6 pg Mean Corpuscular Hemoglobin Concent 34.7 g/dl Platelet Count 200 K/uL Mean Platelet Volume 8.7 fL Neutrophils (%) (Auto) 68.7 % Lymphocytes (%) (Auto) 18.6 % Monocytes (%) (Auto) 7.7 % Eosinophils (%) (Auto) 3.5 % Basophils (%) (Auto) 0.3 % Neutrophils # (Auto) 6.09 K/uL Lymphocytes # (Auto) 1.65 K/uL Monocytes # (Auto) 0.68 K/uL Eosinophils # (Auto) 0.31 K/uL Basophils # (Auto) 0.03 K/uL RDW Standard Deviation 45.8 fL RDW Coefficient of Variation 14.7 % Immature Granulocyte % (Auto) 1.2 % Immature Granulocyte # (Auto) 0.11 K/uL Red Blood Cell Morphology Unremarkable Erythrocyte Sedimentation Rate 33 mm/hr Test 01/21/17 16:14 Bedside Glucose 172 mg/dl Assessment & Plan 66-year-old male with diabetes mellitus, previous right hand infection status post amputation of fingers, now with nonhealing wound with purulent drainage, now growing Staph aureus. Patient previously with methicillin sensitive Staph aureus from culture, but agree with coverage for Vanco pending further sensitivity results. Orthopedic surgery following, may require additional debridement. Will discuss with all involved.
[2017-01-22] VITALS (10 sets, daily range): BP systolic 114–161; BP diastolic 61–90; PULSE 63–114; TEMP 36.3–36.7; O2SAT 93–98
[2017-01-22] MEDS: SODIUM CHLORIDE 0.9% 1000ML 1,000 ML IV SCH ×4 (00:02→16:19)
[2017-01-22] MEDS: LEVOTHYROXINE 50 MCG TAB PO SCH (05:48)
[2017-01-22] MEDS: ACETAMINOPHEN 500 MG TAB PO SCH ×3 (05:49→21:03)
[2017-01-22] MEDS: INSULIN ASPART 100 UNITS/ML 3 ML PEN SC SCH ×4 (07:00→21:05)
--- NOTE | 2017-01-22 07:34 | Surgery Progress Note ---
Subjective Date of Service: January 22, 2017. Pt. state his breathing feels better today. Objective Vitals Date Time Temp Pulse Resp B/P Pulse Ox O2 Delivery O2 Flow Rate FiO2 01/22/17 04:33 36.5 86 19 130/64 96 Room Air 01/22/17 04:00 Room Air 01/22/17 00:48 36.4 78 20 120/83 94 Room Air 01/22/17 00:00 Room Air 01/21/17 20:00 Room Air 01/21/17 18:57 36.9 70 16 104/43 92 Room Air 01/21/17 16:00 Room Air 01/21/17 15:07 36.7 74 17 104/48 92 Room Air 01/21/17 12:00 94 Room Air 01/21/17 11:29 36.4 69 18 109/60 92 Room Air 01/21/17 08:00 94 Room Air 01/21/17 07:50 36.4 72 19 114/66 93 Room Air Physical Exam General: No distress CV: + RRR Pulmonary: + pertinent finding (slight decrease at right base, but overall improved aeration ), No accessory muscle use, No respiratory distress Neurologic: + alert & oriented x 3 Radiology CXR today shows improved aeration at right base, however right pleural effusion noted Drains / Tubes pleurex (DRAINED FRO 10 CC THIS AM ) Assessment & Plan 66 year old male with right pleural effusion -effusion likely the result of trauma/fall pt. suffered several days ago -pleurex placed (01/19/17) -cultures on pleural fluid remain (-) -cytology (-) for malignancy -continue daily drainage of pleurex -will likely initiate MIST II protocol tomorrow
[2017-01-22 07:36] LABS: BASO % 0.3 %; BASO ABS # 0.03 K/uL (0-0.2); COMPLETE YES; EOS % 3.2 %; HEMATOCRIT 27.4 % (42-52); IG% 1.7 %; LYMPH % 14.2 %; LYMPH ABS # 1.38 K/uL (1.2-3.4); MEAN CELL VOLUME 85.1 fL (80-100); MEAN CORPUSCULAR HEMOGLOBIN 28.9 pg (25-34); MEAN CORPUSCULAR HGB CONC 33.9 g/dl (32-36); MEAN PLATELET VOLUME 9.2 fL (7.4-10.4); MONO % 5.9 %; NEUT % 74.7 %; PLATELET COUNT 248 K/uL (130-400); RED BLOOD COUNT 3.22 M/uL (4.7-6.1); WHITE BLOOD COUNT 9.69 K/uL (4.8-10.8)
--- NOTE | 2017-01-22 07:42 | DIAGNOSTIC IMAGING REPORT ---
CHEST ONE VIEW PORTABLE HISTORY: effusion COMPARISON: Chest 01/20/2017. FINDINGS: Right pleural catheter is unchanged in position. Small right pleural effusion persist. Displaced right lower rib fractures are again noted. No definite pneumothorax or a left lung remains clear. The heart remains mildly enlarged. Left-sided pacemaker/defibrillator. Mild central pulmonary vascular congestion. IMPRESSION: No change in the right pleural drain and small right pleural effusion. No pneumothorax identified at this time. Mild central pulmonary vascular congestion. Electronically signed by: Man Hamlin M.D. 01/22/2017 7:41 AM Dictated Date/Time: 01/22/2017 7:39 AM
[2017-01-22 08:01] LABS: BUN/CREATININE RATIO 27.3 (10-20); CALCIUM 8.5 mg/dl (8.5-10.1); CREATININE 2.4 mg/dl (0.60-1.40); POTASSIUM 4.8 mmol/L (3.5-5.1)
--- NOTE | 2017-01-22 08:09 | Orthopedic Progress Note ---
Orthopedic Progress Note Date of Service January 22, 2017. Subjective Reports: feeling well, Denies: SOB, calf pain, chest pain, light headedness, nausea / vomiting Objective 1-2CM AREA WITH NON HEALING WOUND AT THE SITE OF THE 3RD DIGIT AMPUTATION SITE. NO ERYTHEMA. DOES NOT APPEAR INFECTIOUS. MILD DRAINAGE NOTED. Date Time Temp Pulse Resp B/P Pulse Ox O2 Delivery O2 Flow Rate FiO2 01/22/17 04:33 36.5 86 19 130/64 96 Room Air 01/22/17 04:00 Room Air 01/22/17 00:48 36.4 78 20 120/83 94 Room Air 01/22/17 00:00 Room Air 01/21/17 20:00 Room Air 01/21/17 18:57 36.9 70 16 104/43 92 Room Air 01/21/17 16:00 Room Air 01/21/17 15:07 36.7 74 17 104/48 92 Room Air 01/21/17 12:00 94 Room Air 01/21/17 11:29 36.4 69 18 109/60 92 Room Air Laboratory Results 24 Hours: Test 01/22/17 06:20 White Blood Count 9.69 K/uL Red Blood Count 3.22 M/uL Hemoglobin 9.3 g/dL Hematocrit 27.4 % Mean Corpuscular Volume 85.1 fL Mean Corpuscular Hemoglobin 28.9 pg Mean Corpuscular Hemoglobin Concent 33.9 g/dl Platelet Count 248 K/uL Mean Platelet Volume 9.2 fL Neutrophils (%) (Auto) 74.7 % Lymphocytes (%) (Auto) 14.2 % Monocytes (%) (Auto) 5.9 % Eosinophils (%) (Auto) 3.2 % Basophils (%) (Auto) 0.3 % Neutrophils # (Auto) 7.24 K/uL Lymphocytes # (Auto) 1.38 K/uL Monocytes # (Auto) 0.57 K/uL Eosinophils # (Auto) 0.31 K/uL Basophils # (Auto) 0.03 K/uL Assessment & Plan Assessment: Right 4th Metacarpal Fx Right 3rd finger amputation site drainage. Plan: SEE DR. HOGAN CONSULT FOR RECOMMENDATIONS APPEARS STABLE ORTHOPEDICALLY RECOMMEND EVAL AND FOLLOW UP WITH WOUND CARE ORTHO WILL SIGN OFF.
[2017-01-22 08:22] LABS: C-REACTIVE PROTEIN 19.4 mg/dl (0-0.29)
[2017-01-22] MEDS ORDERED: NURSING VERBAL MED ORDER ONE (08:30)
[2017-01-22] MEDS: ALLOPURINOL 300 MG TAB PO SCH (08:41)
[2017-01-22] MEDS: ATORVASTATIN 40 MG TAB PO SCH (08:41)
[2017-01-22] MEDS: ASPIRIN 81 MG ECTAB PO SCH (08:41)
[2017-01-22] MEDS: ISOSORBIDE MONONITRATE 30 MG TABCR PO SCH (08:41)
[2017-01-22] MEDS: SERTRALINE HCL 50 MG TAB PO SCH (08:42)
[2017-01-22] MEDS: LOSARTAN POTASSIUM 25 MG TAB PO SCH (08:42)
[2017-01-22] MEDS: METOPROLOL SUCC 25MG EXT REL TAB PO SCH ×2 (08:42→21:00)
[2017-01-22] MEDS: MoRPHine SULFATE 2 MG/ML CARP IV PRN (08:43)
[2017-01-22] MEDS: INSULIN DETEMIR FLEXPEN/FLEX TOUCH 100 UNITS/ML 3ML SC SCH ×2 (08:47→21:04)
[2017-01-22] MEDS: EUCERIN CR 120 GM JAR EXT SCH ×2 (09:00→20:59)
--- NOTE | 2017-01-22 12:33 | NEUROLOGY CONSULTATION ---
DATE OF CONSULTATION: 01/22/2017 REASON FOR CONSULTATION: Falls. HISTORY OF PRESENT ILLNESS: Mr. Koroma is a 66-year-old with a history of multiple medical problems including diabetes, who presented to the Emergency Room on January 19 with increasing shortness of breath and pain in the right anterior chest after a fall several weeks ago. He was found to have a large right-sided hemothorax. He had been admitted in October and November for septic shock secondary to a necrotic finger, which was ultimately amputated. He indicates with the fall in November, he had slipped on his driveway and fell. Discussing the patient's falls, he has had falls for approximately 3 years. He indicates that they are "rare." He is a vague historian without a lot of accompanying details. He reports that he loses his balance and falls. He does not report that the falls are unidirectional that there is any consistent lightheadedness with them, although he may experience some mild lightheadedness upon arising and there is no clear vertigo. There are no other accompanying neurologic symptoms such as diplopia, dysarthria, unilateral weakness or numbness and there is no vertigo. There is no accompanying nausea. He has a history of a diabetic neuropathy, although it does not sound as if it has been painful. The patient does not report symptoms of gastroparesis other than occasional vomiting. He has not had any incontinence, other than since he has had diarrheal stools since being on antibiotics and denies any abnormal sweating. He does not check his blood sugar regularly, although indicates he is aware when his blood sugar is low and will check it on that occasion. The blood sugars have been in the 40s, but no consistent relationship to falls. There is no clear relationship to meals. I am assuming no consistent relationship to meds as this has been a problem of fairly longstanding. He does have a left BKA and has worn a prosthesis for 10 years. The prosthesis was replaced 3 months ago, but the patient does not feel that this has resulted in an increased number of falls. His weight has been stable to increased. He has no significant headaches. No history of stroke symptoms. PAST MEDICAL HISTORY: Notable for depression and amputations. He has a cardioverter defibrillator, coronary artery disease status post stent to LAD, although the patient denied this to me. He has a congestive heart failure. He has cardiomyopathy with an EF of 30%, diabetic retinopathy, diabetes, dyslipidemia, gout, hematuria, rheumatic fever, MRSA, hypertension, hypothyroidism, lung nodule, MSSA bacteremia, and nonischemic cardiomyopathy. He has an amputation of toes, fingers in the left hand and right hand, left BKA, cardioverter defibrillator, and cardiac cath. FAMILY HISTORY: No family history of imbalance, mother with diabetes, father with coronary artery disease. The patient does not smoke. No alcohol use is noted. He is on disability, worked until about a year and a half ago. ALLERGIES: HE IS ALLERGIC TO GEMFIBROZIL. MEDICATIONS: On admission was Zyloprim, aspirin, Lipitor, Lasix, Diabeta, Levemir, Novolin, Imdur, Synthroid, Cozaar, Zaroxolyn, Toprol, and Zoloft. CURRENT VITAL SIGNS: Temperature 36.6, blood pressure 142/73, pulse 79, and oxygen saturation 96%. CT of the head, noncontrast, which I have reviewed shows a chronic right basal ganglia infarction versus prominent perivascular space. There are white matter hypodensities on a small vessel basis. There is no evidence of hydrocephalus. LABORATORY DATA: Sed rate 51. H\\T\\H 9.3/27. Sodium 139, potassium 4.8, BUN and creatinine 66/2.4. C-reactive protein 19.4. Urinalysis 1+ glucose. PHYSICAL EXAMINATION: GENERAL: The patient is a very pleasant male in no distress. He is cooperative. He lies in bed without his left BKA prosthesis. He is oriented x3, no right/left confusion or aphasia. He appears chronically ill and somewhat older than stated age. There are no carotid bruits. HEART: No heart murmurs. Heart is regular rate and rhythm. ABDOMEN: Protuberant and mildly distended. EXTREMITIES: There is a left BKA. There are multiple excoriations on the below the right knee. The skin is smooth and shiny. NEUROLOGIC: Pupils are postsurgical. I could not reliably visualize the optic nerves. There were normal patrick and motility. No nystagmus. Normal facial sensation and facial symmetry. Speech was normal. Tongue was midline. Motor strength was difficult to test in the upper as there have been multiple amputations in the fingers, but grossly appeared symmetric without drift and with normal rapid alternating movements. In the lowers, there is a left BKA. There is likely some mild to moderate weakness of the right TA and gastroc. Reflexes are mildly brisk. In the uppers, there is likely a crossed adductor, 1+ knee jerks, absent right ankle jerk, toe downgoing, and absent on the left. There is a sensory level to the mid thighs to temperature and the patient only has proprioception at the level of the knee. Vibration sense is present on the fingers. [id number] is normal. [id number] on the right is limited by sensory dystaxia. Gait was not tested as the patient's prosthesis was not on. IMPRESSION: This patient has a history of multiple falls. He has a very severe diabetic neuropathy with very poor proprioception and a severe diabetic neuropathy. is the most likely etiology. I will do some lab work for some other treatable etiologies, although I doubt that that is operative. The patient should have physical therapy, ambulate with a walker, turn the lights on in the evening when he is ambulating. He may have an autonomic neuropathy. I would check for orthostasis. It sounds as if there is any gastroparesis at present is mild as he only has occasional vomiting. I would minimize any medications that could be contributing to orthostasis or sedation. I do not think the patient needs any additional imaging of the central nervous system. RENETTA
--- NOTE | 2017-01-22 12:35 | Pharmacy Progress Note ---
Glycemic Control: Progress Nt Date of Service January 22, 2017. Scope Glycemic Pharmacist consulted by Dr Durbin on 01/19 for glycemic control and to write orders per [facility] inpatient glycemic control protocol. Objective Accuchecks BSG (last 24hrs): Test 01/21/17 16:14 01/21/17 20:48 01/22/17 06:20 01/22/17 06:36 Bedside Glucose 172 mg/dl (70-99) 152 mg/dl (70-99) 182 mg/dl (70-99) Random Glucose 158 mg/dl (70-99) Test 01/22/17 11:18 Bedside Glucose 203 mg/dl (70-99) Laboratory Data (last 24hrs) Test 01/22/17 06:20 Anion Gap 7.0 mmol/L BUN/Creatinine Ratio 27.3 Blood Urea Nitrogen 66 mg/dl Creatinine 2.40 mg/dl Potassium Level 4.8 mmol/L Sodium Level 139 mmol/L White Blood Count 9.69 K/uL Red Blood Count 3.22 M/uL Hemoglobin 9.3 g/dL Hematocrit 27.4 % Mean Corpuscular Volume 85.1 fL Mean Corpuscular Hemoglobin 28.9 pg Mean Corpuscular Hemoglobin Concent 33.9 g/dl Platelet Count 248 K/uL Mean Platelet Volume 9.2 fL Neutrophils (%) (Auto) 74.7 % Lymphocytes (%) (Auto) 14.2 % Monocytes (%) (Auto) 5.9 % Eosinophils (%) (Auto) 3.2 % Basophils (%) (Auto) 0.3 % Neutrophils # (Auto) 7.24 K/uL Lymphocytes # (Auto) 1.38 K/uL Monocytes # (Auto) 0.57 K/uL Eosinophils # (Auto) 0.31 K/uL Basophils # (Auto) 0.03 K/uL HbA1c: Test 01/20/17 05:38 Hemoglobin A1c 8.2 % (4.5-5.6) H Recent Pertinent Medications Outpatient Anti-diabetic Regimen: * Levemir 80 units SC BID * Novolin R 3 units SC BIDM * Glyburide 5 mg po qAM * A1c = 9.6 % on 10/24/16 The patient is currently receiving: * Basal insulin with LEVEMIR 25 units SQ BID (10 units for BSG < 100 mg/dL) * Correctional Insulin with NOVOLOG per scale ACHS or Q6hrs while NPO * Goal Range: Low 110 mg/dL - High 140 mg/dL * Correction Factor: 12 mg/dL/unit * Nutritional / Prandial insulin per carb ratio of 1 unit per 4 grams CHO consumed Risk Factors for Insulin Resistance: * Surgery: POD 3 s/p Pleurex cath placement * Diet: T2DM, low Na - po intake increasing Risk Factors for Insulin Sensitivity: * Increased SCr - has improved today Assessment & Plan ASSESSMENT: 01/19/17 * ADA & AACE recommend a goal blood sugar range 140-180 mg/dl for the majority of critically ill & non-critically ill patients. However, more stringent targets may be selected in individual cases. * 66 yo M with T2DM well-known to our service, admitted with abdominal pain and found to have a hemothorax and multiple rib fractures 2nd fall 2 weeks ago. * Recent admission Oct-Nov 2016 for sepsis s/p finger amputation * BSG decreased from 292 to 164 mg/dL without any po intake or insulin administered in-house. Spoke w RN who noted that patient received AM dose of Levemir at home FNP. * For today, will significantly loosen Novolog as compared to what worked for previous admissions as patient has significantly more basal on-board 2nd home dose received this AM * Outpatient regimen is heavily weighted towards basal. Starting tonight, will do the following: * Will adjust significantly to aim for ~50/50 mix of basal/bolus * Will resume similar regimen that was appropriate during previous admission(s) * Will use Levemir instead of Lantus as this is what the patient uses at home 01/20/17 * BSG slightly elevated to 171 mg/dL this AM. Will increase Lantus to weight- based estimate and stress of 2. Decrease to stress of 1 for hypoglycemia. * Novolog was changed just this AM after successful transition from home Levemir dose to inpatient requirements this AM. No data to support further change at this time. 01/21/17 * Patient received 97 units on 01/19 (almost entirely basal) and 78 units yesterday (about 1/2 basal) * BSGs have started to increase so I anticipate increased basal requirements compared to what is currently ordered * Est TDD at least 100 units * Will plan to increase basal dose but will need to be cautious w/ adjustments b /c of rising SCr and potential for accumulation of insulin 01/22/17 * The patient rec'd 87 units of insulin yesterday - should have been 102 total but the incorrect dose of Levemir was given last evening * His BSGs are higher today but he should receive more basal today so will not make any adjustments with this * I will plan to loosen the CF/CR to be more in line with an est TDD of 100 units PLAN FOR INPATIENT GLYCEMIC CONTROL: * Continue Levemir 25 units BID (give 10 units for BSG less than 100) * Change correction factor to 15 mg/dl/unit * Change carb ratio to 1 unit per 5 grams CHO consumed * Continue goal range of Low 110 mg/dL - High 140 mg/dL * Please note that the plan above was derived based on current level of insulin resistance and hospital stress. These recommendations are appropriate for inpatient admission only. Plan of care upon discharge will need to be reassessed to avoid potential outpatient hypo/hyperglycemia. Thank you.
[2017-01-22] MEDS ORDERED: VANCOMYCIN INJ 1,500 MG in SODIUM CHLORIDE 0.9% 500ML 500 ML IV SCH (14:00)
--- NOTE | 2017-01-22 14:01 | Pharmacy Progress Note ---
Pharmacy Antibiotic Prog Note Date of Service January 22, 2017. Subjective The patient is currently receiving IV Vancomycin dosing based on random levels due to unstable/impaired renal fxn. The patient is currently on day #3 of IV therapy. Objective Height (Feet): 5 Height (Inches): 10.00 Weight (Kilograms): 120.700 Levels: Item Value Date Time Random Vancomycin Level 16.3 mcg/ml 01/22/17 0620 Random Vancomycin Level 8.5 mcg/ml 01/21/17 0549 Lab Results (24hrs): Test 01/22/17 06:20 01/22/17 06:36 01/22/17 11:05 01/22/17 11:18 White Blood Count 9.69 K/uL (4.8-10.8) Red Blood Count 3.22 M/uL (4.7-6.1) Hemoglobin 9.3 g/dL (14.0-18.0) Hematocrit 27.4 % (42-52) Mean Corpuscular Volume 85.1 fL (80-100) Mean Corpuscular Hemoglobin 28.9 pg (25-34) Mean Corpuscular Hemoglobin Concent 33.9 g/dl (32-36) Platelet Count 248 K/uL (130-400) Mean Platelet Volume 9.2 fL (7.4-10.4) Neutrophils (%) (Auto) 74.7 % Lymphocytes (%) (Auto) 14.2 % Monocytes (%) (Auto) 5.9 % Eosinophils (%) (Auto) 3.2 % Basophils (%) (Auto) 0.3 % Neutrophils # (Auto) 7.24 K/uL (1.4-6.5) Lymphocytes # (Auto) 1.38 K/uL (1.2-3.4) Monocytes # (Auto) 0.57 K/uL (0.11-0.59) Eosinophils # (Auto) 0.31 K/uL (0-0.5) Basophils # (Auto) 0.03 K/uL (0-0.2) RDW Standard Deviation 45.8 fL (36.4-46.3) RDW Coefficient of Variation 14.7 % (11.5-14.5) Immature Granulocyte % (Auto) 1.7 % Immature Granulocyte # (Auto) 0.16 K/uL (0.00-0.02) Erythrocyte Sedimentation Rate 51 mm/hr (0-14) Sodium Level 139 mmol/L (136-145) Potassium Level 4.8 mmol/L (3.5-5.1) Chloride Level 106 mmol/L (98-107) Carbon Dioxide Level 26 mmol/L (21-32) Anion Gap 7.0 mmol/L (3-11) Blood Urea Nitrogen 66 mg/dl (7-18) Creatinine 2.40 mg/dl (0.60-1.40) Est Creatinine Clear Calc Drug Dose 39.4 ml/min Estimated GFR () 31.4 Estimated GFR (Non- 27.1 BUN/Creatinine Ratio 27.3 (10-20) Random Glucose 158 mg/dl (70-99) Calcium Level 8.5 mg/dl (8.5-10.1) C-Reactive Protein 19.40 mg/dl (0-0.29) Random Vancomycin Level 16.3 mcg/ml Bedside Glucose 182 mg/dl (70-99) 203 mg/dl (70-99) Micro Results: Item Value Date Time Blood Culture - Preliminary Resulted 01/19/17 0542 Blood NO GROWTH TO DATE. Blood Culture - Preliminary Resulted 01/19/17 0545 Blood NO GROWTH TO DATE. Gram Stain - Final Resulted 01/19/17 0840 Pleural Fluid (Thoracentesis) Right Acid Fast Stain - Final Resulted 01/19/17 0840 Pleural Fluid (Thoracentesis) Right Fungal Smear - Final Resulted 01/19/17 0840 Pleural Fluid (Thoracentesis) Right Urine Culture - Final Complete 01/19/17 1830 Urine , Clean Catch NO GROWTH - LESS THAN 1,000 COLONIES/ML Gram Stain - Final Resulted 01/20/17 0000 Drainage - Surface Hand Right Blood Culture - Preliminary Resulted 01/20/17 1224 Blood NO GROWTH TO DATE. Blood Culture - Preliminary Resulted 01/20/17 1230 Blood NO GROWTH TO DATE. RUN DATE: 01/21/17 [facility] LAB PAGE 1 RUN TIME: 956 Specimen Inquiry PATIENT: LUZ CRUZ LOC: [facility] U # : [id number] AGE/SX: 66/M ROOM: E204 REG : 01/19/[address]: Cristina Durbin DO : 1950 BED: 1 DIS : STATUS: ADM IN TLOC: SPEC #: [id number] JONATHAN: 01/20/17-UNK STATUS: RES REQ #: [id number] RECD: 01/20/[address]: Cristina Durbin DO SOURCE: DRAIN-SURF ENTR: 01/20/[address] [facility] DR: Dustin Iyer M.D. SPDESC: HAND RIGHT Kip Addison D.O. Sensiba, Paul R., M.D. Whitlark, Joseph D., MD ORDERED: FILIBERTO GUTIÉRREZ CU/ARCELIA COMMENTS: Has Specimen Been Obtained/Collected? Y Procedure Result Verified Site GRAM STAIN Final 01/21/17 RESULT RARE GRAM POSITIVE COCCI RARE WBCs SEEN SURFACE WOUND CULTURE Preliminary 01/21/17 Organism 1 STAPHYLOCOCCUS AUREUS QUANITY RARE SENS SENSITIVITY TO FOLLOW Organism 2 STAPH SPECIES QUANITY RARE SENS SENSITIVITY TO FOLLOW Recent Pertinent Medications Item Value Date Time Vancomycin HCl 548 ml @ 200 mls/hr 01/20/17 1200 2400 mg/Sodium 1200 ONCE/IV 01/20/17 1200 Chloride Vancomycin HCl 535 ml @ 200 mls/hr 01/21/17 1200 1750 mg/Sodium TODAY@1200/IV 01/21/17 1200 Chloride Vancomycin HCl 530 ml @ 200 mls/hr 01/22/17 1400 1500 mg/Sodium TODAY@1400/IV Chloride Assessment & Plan Vancomycin * 66 yo M with post-op infection of right hand & possible osteomyelitis * hx of MRSA & MSSA bacteremia * Goal trough level: 15-20mcg/mL * Random level this AM: 16.3mcg/mL --> Therapeutic * Will continue with dosing based on random levels due to unstable/impaired renal fxn * Give: Vancomycin 1500mg IV x 1 dose today (~12.5mg/kg due pt risk for accumulation) * Random level ordered for: AM Labs tomorrow Pharmacy will continue to follow and will adjust dose/frequency as necessary. Thank you
--- NOTE | 2017-01-22 18:23 | Progress Note ---
Medicine Progress Note Date & Time of Visit: January 22, 2017 at 18:16. Subjective -doing well today -afebrile and HD stable -no events on tele -ICD interrogation is normal -Neuro consult -tolerating PO Objective Last 8 Hrs Date Time Temp Pulse Resp B/P Pulse Ox O2 Delivery O2 Flow Rate FiO2 01/22/17 16:35 36.3 80 18 114/70 95 Room Air 01/22/17 16:00 Room Air 01/22/17 12:23 36.4 77 19 133/76 96 Room Air 01/22/17 12:00 Room Air Physical Exam: GEN: WNWD, in no acute distress, alert and appropriate, clinically appears improved. HEENT: NC/AT, pupils are equal and round, normal sclerae/conjunctivae, MMM CARDIO: reg rate, S1/2 heard without m/g/r LUNGS: CTA bilaterally, no crackles, rales or wheezes, good diaphragmatic excursion, chest wall TTP in anterior chest on the R. BACK: Pleurex catheter in place and taped against body-blood tinged drainage is present. Dressing is dry and intact. ABD: soft, non-tender, non-distended, no rebound or guarding, +BS EXTREMITY: Both hands have multiple finger amputations. R hand: purulent drainage over recent surgical wound which is closed, no surrounding erythema, sensation decrease in the hand. LLE BTK amputation-skin clear and leg is warm and well-perfused. RLE -multiple closed scab wounds present on leg, DP2+ and warm and well perfused. Sensation low in this area. Sensation loss in combs distribution on R hand NEURO: CN 2-12 grossly intact aside from sensation loss as above. EOMI intact and patient reports lightheadedness with eye movement. MUSC: slow to move 2/2 pain, moves all extremities equally. SKIN: warm and dry and wounds as above. There is a wound on his posterior neck from recent ICU stay and strap used to hold ventilator in place. Laboratory Results: 01/22/17 06:20 Red Blood Count 3.22, Mean Corpuscular Volume 85.1, Mean Corpuscular Hemoglobin 28.9, Mean Corpuscular Hemoglobin Concent 33.9, Mean Platelet Volume 9.2, Neutrophils (%) (Auto) 74.7, Lymphocytes (%) (Auto) 14.2, Monocytes (%) (Auto) 5.9, Eosinophils (%) (Auto) 3.2, Basophils (%) (Auto) 0.3, Neutrophils # (Auto) 7.24, Lymphocytes # (Auto) 1.38, Monocytes # (Auto) 0.57, Eosinophils # (Auto) 0.31, Basophils # (Auto) 0.03 01/22/17 06:20 Test 01/19/17 05:30 01/19/17 05:37 01/19/17 08:40 01/19/17 08:42 Prothrombin Time 10.5 SECONDS (9.0-12.0) Prothromb Time International Ratio 1.0 (0.9-1.1) Total Bilirubin 0.4 mg/dl (0.2-1) Direct Bilirubin 0.1 mg/dl (0-0.2) Aspartate Amino Transf (AST/SGOT) 10 U/L (15-37) Alanine Aminotransferase (ALT/SGPT) 18 U/L (12-78) Alkaline Phosphatase 127 U/L (45-117) Total Protein 6.9 gm/dl (6.4-8.2) Albumin 3.2 gm/dl (3.4-5.0) Beta-Hydroxybutyric Acid 1.28 mg/dL (0.2-2.81) Thyroid Stimulating Hormone (TSH) 5.110 uIu/ml (0.300-4.500) Bedside Troponin I 0.040 ng/ml (0-0.045) Pleural Fluid Source RIGHT LUNG Pleural Fluid Color RED Pleural Fluid Appearance BLOODY Pleural Fluid WBC 2053 /uL Pleural Fluid RBC 6107570 /uL Pleural Fluid pH 7.21 (7.3-7.4) Pleural Fluid Polynuclear WBCs % 36.8 % Pleural Fluid Mononuclear WBCs % 63.2 % Pleural Fluid Total Protein 5.4 g/dl Pleural Fluid LDH 334 IU Pleural Fluid Glucose 199 mg/dl Pleural Fluid Amylase 21 U/L Pleural Fluid Cholesterol 321 mg/dL Bedside Blood Gas pH (LAB) 7.25 (7.35-7.45) Bedside Blood Gas pCO2 (LAB) 56 mmHg (35-46) Bedside Blood Gas pO2 (LAB) < 32 mmHg (80-95) Bedside Blood Gas HCO3 (LAB) 25 meq/L (19-24) Bedside Blood Gas Total CO2 26 mEq/l (24-31) Bedside Blood Gas Base Excess (LAB) -3.0 meq/L (-9-1.8) Bedside Blood Gas O2 Saturation 35.0 % (90-95) Test 01/19/17 18:30 01/20/17 00:00 01/20/17 05:38 01/21/17 07:33 Urine Color DK YELLOW Urine Appearance CLEAR (CLEAR) Urine pH 5.0 (4.5-7.5) Urine Specific [place] 1.029 (1.000-1.030) Urine Protein NEG (NEG) Urine Glucose (UA) 1+ (NEG) Urine Ketones NEG (NEG) Urine Occult Blood NEG (NEG) Urine Nitrite NEG (NEG) Urine Bilirubin NEG (NEG) Urine Urobilinogen NEG (NEG) Urine Leukocyte Esterase NEG (NEG) Urine Random Creatinine 260.0 mg/dl Urine Random Sodium 5 mEq/L Estimated Average Glucose 189 mg/dl Hemoglobin A1c 8.2 % (4.5-5.6) Magnesium Level 2.4 mg/dl (1.8-2.4) Red Blood Cell Morphology Unremarkable Test 01/22/17 06:20 01/22/17 11:05 01/22/17 16:26 White Blood Count 9.69 K/uL (4.8-10.8) Red Blood Count 3.22 M/uL (4.7-6.1) Hemoglobin 9.3 g/dL (14.0-18.0) Hematocrit 27.4 % (42-52) Mean Corpuscular Volume 85.1 fL (80-100) Mean Corpuscular Hemoglobin 28.9 pg (25-34) Mean Corpuscular Hemoglobin Concent 33.9 g/dl (32-36) Platelet Count 248 K/uL (130-400) Mean Platelet Volume 9.2 fL (7.4-10.4) Neutrophils (%) (Auto) 74.7 % Lymphocytes (%) (Auto) 14.2 % Monocytes (%) (Auto) 5.9 % Eosinophils (%) (Auto) 3.2 % Basophils (%) (Auto) 0.3 % Neutrophils # (Auto) 7.24 K/uL (1.4-6.5) Lymphocytes # (Auto) 1.38 K/uL (1.2-3.4) Monocytes # (Auto) 0.57 K/uL (0.11-0.59) Eosinophils # (Auto) 0.31 K/uL (0-0.5) Basophils # (Auto) 0.03 K/uL (0-0.2) RDW Standard Deviation 45.8 fL (36.4-46.3) RDW Coefficient of Variation 14.7 % (11.5-14.5) Immature Granulocyte % (Auto) 1.7 % Immature Granulocyte # (Auto) 0.16 K/uL (0.00-0.02) Erythrocyte Sedimentation Rate 51 mm/hr (0-14) Anion Gap 7.0 mmol/L (3-11) Est Creatinine Clear Calc Drug Dose 39.4 ml/min Estimated GFR () 31.4 Estimated GFR (Non- 27.1 BUN/Creatinine Ratio 27.3 (10-20) Calcium Level 8.5 mg/dl (8.5-10.1) C-Reactive Protein 19.40 mg/dl (0-0.29) Random Vancomycin Level 16.3 mcg/ml Vitamin B12 Level 871 pg/mL (211-911) Folate 15.45 ng/mL (>5.38) Bedside Glucose 230 mg/dl (70-99) Date/Time Source Procedure Growth Status 01/20/17 12:30 Blood Blood Culture - Preliminary NO GROWTH TO DATE. Resulted 01/19/17 18:30 Urine , Clean Catch Urine Culture - Final NO GROWTH - LESS THAN 1,000 COLONIES/ML Complete 01/20/17 00:00 Drainage - Surface Hand Right Gram Stain - Final Resulted 01/20/17 00:00 Wound Culture - Preliminary Staphylococcus Aureus Staph Species Resulted Last 24 Hours Test 01/21/17 20:48 01/22/17 06:20 01/22/17 06:36 01/22/17 11:05 Bedside Glucose 152 mg/dl 182 mg/dl White Blood Count 9.69 K/uL Red Blood Count 3.22 M/uL Hemoglobin 9.3 g/dL Hematocrit 27.4 % Mean Corpuscular Volume 85.1 fL Mean Corpuscular Hemoglobin 28.9 pg Mean Corpuscular Hemoglobin Concent 33.9 g/dl Platelet Count 248 K/uL Mean Platelet Volume 9.2 fL Neutrophils (%) (Auto) 74.7 % Lymphocytes (%) (Auto) 14.2 % Monocytes (%) (Auto) 5.9 % Eosinophils (%) (Auto) 3.2 % Basophils (%) (Auto) 0.3 % Neutrophils # (Auto) 7.24 K/uL Lymphocytes # (Auto) 1.38 K/uL Monocytes # (Auto) 0.57 K/uL Eosinophils # (Auto) 0.31 K/uL Basophils # (Auto) 0.03 K/uL RDW Standard Deviation 45.8 fL RDW Coefficient of Variation 14.7 % Immature Granulocyte % (Auto) 1.7 % Immature Granulocyte # (Auto) 0.16 K/uL Erythrocyte Sedimentation Rate 51 mm/hr Sodium Level 139 mmol/L Potassium Level 4.8 mmol/L Chloride Level 106 mmol/L Carbon Dioxide Level 26 mmol/L Anion Gap 7.0 mmol/L Blood Urea Nitrogen 66 mg/dl Creatinine 2.40 mg/dl Est Creatinine Clear Calc Drug Dose 39.4 ml/min Estimated GFR () 31.4 Estimated GFR (Non- 27.1 BUN/Creatinine Ratio 27.3 Random Glucose 158 mg/dl Calcium Level 8.5 mg/dl C-Reactive Protein 19.40 mg/dl Random Vancomycin Level 16.3 mcg/ml Vitamin B12 Level 871 pg/mL Folate 15.45 ng/mL Test 01/22/17 11:18 01/22/17 16:26 Bedside Glucose 203 mg/dl 230 mg/dl Assessment & Plan 66 yo M with h/o recent admission for septic shock 2/2 finger infection presents with dyspnea 2/2 hemothorax on the R 2/2 trauma two weeks ago 1. Dyspnea and chest pain 2/2 R hemothorax with displaced rib fractures-s/p thoracentesis on 01/19 with Pleurex catheter placement in the ER by CT surg team. 1500ml out initially and 350 out overnight. Supportive care with pain control. Repeat CXR improved and breathing reported to be better per patient. 01/21: PleurX catheter output was 200cc overnight. Continues to drain blood- tinged fluid. Pain from rib fractures is controlled and breathing has improved ; no hypoxia. Cont incentive spirometry. 01/22: PleurX 50 cc out. Pain with rib fractures is stable. 2. Rib fractures-multiple anterior rib fractures-supportive care as above. 3. R hand wound-patient reports sensation loss in R hand since amputation 6-8 weeks ago in a glove distribution. He was admitted for septic source with a finger infection as the source. It appears the wound is closed but there is purulent material over the area. Pt denies any pain, fevers, or chills. This patient appears to have very poor wound care with a drainage-soaked bandage that is old-appearing. Wound care consulted. Will xray the hand to look for soft tissue gas or presence of osteo. Will obtain ESR and CRP and trend this-- of note, no leukocytosis is present. Will cover with Vanc empirically-- although prior cultures from this wound grew MSSA he has a h/o MRSA and with recent hospitalization has increased risk for this. Will consult Ortho-hand for evaluation. 01/21: still has glove-distribution numbness that is present. Wound is closed and no longer draining. Cont empiric abx until we can rule out osteomyelitis in setting of elevated CRP, recent operation in this area and known poor wound care post-op in an uncontrolled diabetic. Awaiting ID consult. Prefer to get contrasted MRI study but cannot obtain until kidney function improves. Ortho aware of wound and 4th metacarpal fracture-appreciate recs. 01/22: non-operative per Ortho, stable from their perspective 4. 4th metacarpal fracture in had 2/2 fall -per Ortho as above. 5. Anemia-acute, likely 2/2 acute blood loss in addition to dilution effect from IVF overnight given for AUR. Catheter still draining some blood-tinged fluid so expect a further drop and patient is having significant fatigue. Plan to transfuse two units at this time. 01/21: output from chest tube has slowed. H/H improved to 8.7/25. Trend CBC in am. 01/22: HH is stable at 9.3/27.4 6. PATRICIA in setting of CKD IV-Creat at baseline. Cont home meds, renally dose meds and avoid nephrotoxic substances. Etiology is likely acute urinary retention yesterday. Fluid bolus given overnight and Newby placed yesterday. Creat up to 2.5 today. Cont Newby for now and trend PRP in am. Pt reports no issues at home RE: BPH symptoms, so will ensure adequately hydrated prior to Newby removal trial without starting tamsulosin. 01/21: Urine Na was 5 in setting of recent Lasix use, FeNa <0.1% -->severe dehydration present. Cont IVF throughout the day today and watch for improvement in the morning. Cont Newby for now for accurate I/O assessment. Will consult Nephro if no improvement tomorrow. Avoiding contrasted studies at this time. 01/22: some improvement of creat from 2.7 to 2.4 with IVF, but will stop now out of concern for third spacing and overload in setting of cardiomyopathy. will repeat creat in am. 7. Acute urinary retention-poss 2/2 BPH but patient denies symptoms of this. Poss also 2/2 significant dehydration. Expect to be fine once we rehydrate him and remove the Newby. 01/22: urine still appears darker in color despite IVF. Cont Newby to monitor I /Os accurately 8. DMII longstanding with known complications of neuropathy and vasculopathy- cont ISS/Lantus with pharmacy consult for assist. per Pharm recs. 9. Idiopathic dilated cardiomyopathy with severe LV dysfunction (Dx 2000): will monitor clinically and check daily weights post-procedure. Appears euvolemic at this time. Cont home meds aside form ASA in setting of hemothorax and PATRICIA. Lasix/metolazone held in setting of PATRICIA. 10. Superimposed CAD s/p stent placement for high grade LAD stenosis-in setting of prior stents, cont ASA. 11. Hypothyroidism-cont home Synthroid, TSH slightly elevated to 5. Defer to outpatient PCP for adjustment unless fatigue doesn't improve with blood administration. 01/21: Pt feels better today after blood transfusion yesterday 12. Gout-no acute flares, cont allopurinol 13. Dysequilibrium- likely multifactorial etiology in the setting of diabetic neuropathy with vasculopathy and likely autonomic dysfunction. He has multiple amputations contributing to balance loss in the setting of possible hypoglycemic episodes as described. He also has a h/o recent trauma to the back of his head after feeling unsteady and falling on the concrete outside of his house. He had ? loss of consciousness at that time. CT head on admission was negative for any acute stroke, and clinically this is not apparent. However , source of vertigo/dysequilibrium in the setting of trauma is uncertain. Enlisted the help of Neurology. Will obtain a non-contrast MRI head and MRA neck to ensure no issues with posterior circulation. Contrasted study is contraindicated in the setting of PATRICIA. 01/22: per Neuro this is 2/2 diabetic autonopathy; other reversible possibilities are being considered, however. Full Code Diet-2gm Na restric. ADA DVT proph-hold in setting of bleeding and recent procedure, consider starting when H/H stable and OK with CT surg team. Dispo-cont to monitor pt on telemetry DO Miguel Trinidad Hospitalist Consultants: Neuro, ID, Ortho Current Inpatient Medications: Current Inpatient Medications Medications (Trade) Dose Ordered Sig/Ifeanyi Route Start Time Stop Time Status Last Admin Dose Admin Glucose (Glucose 40% Gel) 15-30 GRAMS 15 GRAMS... UD PRN PO 01/19/17 08:15 02/18/17 08:14 Glucose (Glucose Chew Tab) 4-8 Tablets 4 Tabl... UD PRN PO 01/19/17 08:15 02/18/17 08:14 Dextrose (Dextrose 50% 50ML Syringe) 25-50ML OF 50% DW IV FOR... UD PRN IV 01/19/17 08:15 02/18/17 08:14 Glucagon (Glucagon Inj) 1 mg UD PRN SQ 01/19/17 08:15 02/18/17 08:14 Miscellaneous Information (Consult Glycemic Management Pharmacy) 1 ea UD PRN N/A 01/19/17 08:34 02/18/17 08:33 Ondansetron HCl (Zofran Inj) 4 mg Q6H PRN IV 01/19/17 08:15 02/18/17 08:14 Morphine Sulfate (MoRPHine SULFATE INJ) 2 mg Q2H PRN IV 01/19/17 08:15 02/02/17 08:14 01/22/17 08:43 2 MG Polyethylene (Miralax Powder Packet) 17 gm DAILY PRN PO 01/19/17 08:15 02/18/17 08:14 01/21/17 12:57 17 GM Allopurinol (Zyloprim Tab) 300 mg DAILY PO 01/20/17 09:00 02/19/17 08:59 01/22/17 08:41 300 MG Atorvastatin Calcium (Lipitor Tab) 80 mg DAILY PO 01/20/17 09:00 02/19/17 08:59 01/22/17 08:41 80 MG Furosemide (Lasix Tab) 80 mg BID17 PO 01/19/17 17:00 02/18/17 16:59 Future Hold 01/20/17 08:19 80 MG Isosorbide Mononitrate (Imdur Ext Rel Tab) 15 mg QAM PO 01/20/17 09:00 02/19/17 08:59 01/22/17 08:41 15 MG Levothyroxine Sodium (Synthroid Tab) 50 mcg DAILYBB PO 01/20/17 06:00 02/19/17 05:59 01/22/17 05:48 50 MCG Losartan Potassium (coZAAR TAB) 25 mg DAILY PO 01/20/17 09:00 02/19/17 08:59 01/22/17 08:42 25 MG Metolazone (Zaroxolyn Tab) 2.5 mg Sa@0900 PO 01/21/17 09:00 02/20/17 08:59 Future Hold Metoprolol Succinate (Toprol Xl Tab) 25 mg BID PO 01/19/17 21:00 02/18/17 20:59 01/22/17 08:42 25 MG Sertraline HCl (Zoloft Tab) 100 mg DAILY PO 01/20/17 09:00 02/19/17 08:59 01/22/17 08:42 100 MG Aspirin (Ecotrin Tab) 81 mg DAILY PO 01/20/17 09:00 02/19/17 08:59 01/22/17 08:41 81 MG Insulin Aspart (novoLOG ASPART) SLIDING SCALE If C... ACHS SC 01/20/17 07:00 02/19/17 06:59 01/22/17 16:15 16 UNITS Insulin Detemir (Levemir Flexpen/ FlexTouch) BID SC 01/19/17 21:00 02/18/17 20:59 01/22/17 08:47 25 UNIT Acetaminophen (Tylenol Tab) 1,000 mg Q8 PO 01/19/17 14:00 02/18/17 13:59 Future hold 01/22/17 15:25 1,000 MG Tramadol HCl (Ultram Tab) 50 mg Q8H PRN PO 01/19/17 12:57 02/18/17 12:56 01/20/17 19:45 50 MG Vancomycin HCl 1 ea 1 ea UD PRN N/A 01/20/17 11:30 02/19/17 11:29 Sodium Chloride (Nss 1000ml) 1,000 ml @ 125 mls/hr Q8H IV 01/21/17 08:00 02/20/17 07:59 01/22/17 16:19 125 MLS/HR Multi-Ingredient Ointment (Eucerin Unscented Cr) 1 appln BID EXT 01/22/17 09:00 02/21/17 08:59 01/22/17 09:00 1 APPLN
[2017-01-23] MEDS: LEVOTHYROXINE 50 MCG TAB PO SCH (06:22)
[2017-01-23] MEDS: ACETAMINOPHEN 500 MG TAB PO SCH ×3 (06:23→21:30)
[2017-01-23 07:31] VITALS: BP 146/90; PULSE 80; TEMP 36.5; O2SAT 93
[2017-01-23] MEDS: EUCERIN CR 120 GM JAR EXT SCH ×2 (07:40→21:30)
[2017-01-23] MEDS: ATORVASTATIN 40 MG TAB PO SCH (07:41)
[2017-01-23] MEDS: SERTRALINE HCL 50 MG TAB PO SCH (07:41)
[2017-01-23] MEDS: ASPIRIN 81 MG ECTAB PO SCH (07:42)
[2017-01-23] MEDS: METOPROLOL SUCC 25MG EXT REL TAB PO SCH ×2 (07:42→21:29)
[2017-01-23] MEDS: LOSARTAN POTASSIUM 25 MG TAB PO SCH (07:42)
[2017-01-23] MEDS: ALLOPURINOL 300 MG TAB PO SCH (07:42)
[2017-01-23] MEDS: ISOSORBIDE MONONITRATE 30 MG TABCR PO SCH (07:43)
--- NOTE | 2017-01-23 08:00 | DIAGNOSTIC IMAGING REPORT ---
CHEST ONE VIEW PORTABLE CLINICAL HISTORY: Pain with pleurx drainage COMPARISON STUDY: Chest radiograph January 22, 2017. FINDINGS: A right basilar pleural catheter is in place. Multiple displaced right lower rib fractures are again noted. No pneumothorax is identified. A small right pleural effusion with right basilar opacity is unchanged. Cardiomegaly is noted. A left subclavian pacer/AICD is in place. There is pulmonary vascular congestion without overt pulmonary edema. IMPRESSION: No change in the small right pleural effusion with right basilar opacity. Right pleural catheter in place. Electronically signed by: Ramesh Ham M.D. 01/23/2017 7:59 AM Dictated Date/Time: 01/23/2017 7:57 AM
[2017-01-23 08:07] LABS: CREATININE 1.6 mg/dl (0.60-1.40)
[2017-01-23] MEDS ORDERED: ALTEPLASE, RECOMBINANT 1 MG/ML 2 ML VIAL IPL ONE (08:15)
--- NOTE | 2017-01-23 09:10 | Pharmacy Progress Note ---
Pharmacy Antibiotic Prog Note Date of Service January 23, 2017. Subjective The patient is currently receiving vancomycin ; dosed based upon levels for a wound infection. The patient is currently on day #4 of IV therapy. Objective Height (Feet): 5 Height (Inches): 10.00 Weight (Kilograms): 120.700 Levels: Item Value Date Time Random Vancomycin Level 17.8 mcg/ml 01/23/17 0725 Random Vancomycin Level 16.3 mcg/ml 01/22/17 0620 Random Vancomycin Level 8.5 mcg/ml 01/21/17 0549 Lab Results (24hrs): Test 01/22/17 11:05 01/22/17 20:13 01/23/17 07:03 01/23/17 07:25 Vitamin B12 Level 871 pg/mL (211-911) Folate 15.45 ng/mL (>5.38) Bedside Glucose 270 mg/dl (70-99) 186 mg/dl (70-99) Creatinine 1.60 mg/dl (0.60-1.40) Est Creatinine Clear Calc Drug Dose 59.1 ml/min Estimated GFR () 51.3 Estimated GFR (Non- 44.2 Random Vancomycin Level 17.8 mcg/ml Micro Results: Item Value Date Time Blood Culture - Preliminary Resulted 01/20/17 1230 Blood NO GROWTH TO DATE. Blood Culture - Preliminary Resulted 01/20/17 1224 Blood NO GROWTH TO DATE. Gram Stain - Final Resulted 01/20/17 0000 Drainage - Surface Hand Right Urine Culture - Final Complete 01/19/17 1830 Urine , Clean Catch NO GROWTH - LESS THAN 1,000 COLONIES/ML Fungal Smear - Final Resulted 01/19/17 0840 Pleural Fluid (Thoracentesis) Right Acid Fast Stain - Final Resulted 01/19/17 0840 Pleural Fluid (Thoracentesis) Right Gram Stain - Final Resulted 01/19/17 0840 Pleural Fluid (Thoracentesis) Right Blood Culture - Preliminary Resulted 01/19/17 0545 Blood NO GROWTH TO DATE. Blood Culture - Preliminary Resulted 01/19/17 0542 Blood NO GROWTH TO DATE. Assessment & Plan Patient started on vancomycin for a hand infection s/p amputation of finger, now presenting with purulent drainage. BC x 2 are no growth. Drainage of hand growing staph aureus. ID is following the patient. Per MD notes, plan to get MRI study when Scr improves. Vancomycin: * Random vancomycin level this am was therapeutic at ~18 mcg/ml (goal 15-20 mcg/ ml for wound infection/+drainage) * Scr improving more today, from 2.4 to 1.6 mg/dL t (CrCl ~60 ml/min) which appears to closer to his baseline renal function * Will start a MD of vancomycin 1500 mg (~13 mg/kg) iv q 18 hrs ; was less aggressive with dosing due to elevated BMI>35 kg/m2 and risk of drug accumulation however dose seems appropriate based upon recent admissions/trough levels * Estimated kinetics: t 1/2~14 hrs, ke~0.05 hr-1 * Will plan to order a trough prior to the 1600 dose on 12/26 to ensure therapeutic; will consider checking earlier if renal function changes/worsens Pharmacy will continue to follow and will adjust dose/frequency as necessary. Thank you
[2017-01-23] MEDS: INSULIN DETEMIR FLEXPEN/FLEX TOUCH 100 UNITS/ML 3ML SC SCH ×2 (09:30→21:32)
[2017-01-23] MEDS: INSULIN ASPART 100 UNITS/ML 3 ML PEN SC SCH ×4 (09:30→21:31)
[2017-01-23] MEDS ORDERED: VANCOMYCIN INJ 1,500 MG in SODIUM CHLORIDE 0.9% 500ML 500 ML IV SCH (10:00)
--- NOTE | 2017-01-23 10:36 | Infectious Disease Progress Nt ---
Progress Note Date of Service January 23, 2017. Subjective Pt evaluation today including: conversation w/ patient, physical exam, chart review, lab review, review of studies, conversation w/ client care consultant, review of inpatient medication list offers no new complaints. Remains afebrile. Hemodynamically stable. No worsening SOB. Wound culture with MSSA. CXR, read by me, shows rib fractures, pleural catheter, and small right effusion. All Other Systems: Reviewed and Negative Medications Current Inpatient Medications Medications (Trade) Dose Ordered Sig/Ifeanyi Route Start Time Stop Time Status Last Admin Dose Admin Glucose (Glucose 40% Gel) 15-30 GRAMS 15 GRAMS... UD PRN PO 01/19/17 08:15 02/18/17 08:14 Glucose (Glucose Chew Tab) 4-8 Tablets 4 Tabl... UD PRN PO 01/19/17 08:15 02/18/17 08:14 Dextrose (Dextrose 50% 50ML Syringe) 25-50ML OF 50% DW IV FOR... UD PRN IV 01/19/17 08:15 02/18/17 08:14 Glucagon (Glucagon Inj) 1 mg UD PRN SQ 01/19/17 08:15 02/18/17 08:14 Miscellaneous Information (Consult Glycemic Management Pharmacy) 1 ea UD PRN N/A 01/19/17 08:34 02/18/17 08:33 Ondansetron HCl (Zofran Inj) 4 mg Q6H PRN IV 01/19/17 08:15 02/18/17 08:14 Morphine Sulfate (MoRPHine SULFATE INJ) 2 mg Q2H PRN IV 01/19/17 08:15 02/02/17 08:14 01/22/17 08:43 2 MG Polyethylene (Miralax Powder Packet) 17 gm DAILY PRN PO 01/19/17 08:15 02/18/17 08:14 01/21/17 12:57 17 GM Allopurinol (Zyloprim Tab) 300 mg DAILY PO 01/20/17 09:00 02/19/17 08:59 01/23/17 07:42 300 MG Atorvastatin Calcium (Lipitor Tab) 80 mg DAILY PO 01/20/17 09:00 02/19/17 08:59 01/23/17 07:41 80 MG Isosorbide Mononitrate (Imdur Ext Rel Tab) 15 mg QAM PO 01/20/17 09:00 02/19/17 08:59 01/23/17 07:43 15 MG Levothyroxine Sodium (Synthroid Tab) 50 mcg DAILYBB PO 01/20/17 06:00 02/19/17 05:59 01/23/17 06:22 50 MCG Losartan Potassium (coZAAR TAB) 25 mg DAILY PO 01/20/17 09:00 02/19/17 08:59 01/23/17 07:42 25 MG Metoprolol Succinate (Toprol Xl Tab) 25 mg BID PO 01/19/17 21:00 02/18/17 20:59 01/23/17 07:42 25 MG Sertraline HCl (Zoloft Tab) 100 mg DAILY PO 01/20/17 09:00 02/19/17 08:59 01/23/17 07:41 100 MG Aspirin (Ecotrin Tab) 81 mg DAILY PO 01/20/17 09:00 02/19/17 08:59 01/23/17 07:42 81 MG Insulin Aspart (novoLOG ASPART) SLIDING SCALE If C... ACHS SC 01/20/17 07:00 02/19/17 06:59 01/23/17 09:30 19 UNITS Insulin Detemir (Levemir Flexpen/ FlexTouch) BID SC 01/19/17 21:00 02/18/17 20:59 01/23/17 09:30 25 UNIT Acetaminophen (Tylenol Tab) 1,000 mg Q8 PO 01/19/17 14:00 02/18/17 13:59 Future hold 01/23/17 06:23 1,000 MG Tramadol HCl (Ultram Tab) 50 mg Q8H PRN PO 01/19/17 12:57 02/18/17 12:56 01/20/17 19:45 50 MG Vancomycin HCl (Consult) 1 ea UD PRN N/A 01/20/17 11:30 02/19/17 11:29 Multi-Ingredient Ointment 1 appln 1 appln BID EXT 01/22/17 09:00 02/21/17 08:59 01/23/17 07:40 1 APPLN Vancomycin HCl/ Sodium Chloride (Vancomycin Inj/ Nss 500ml) 530 ml @ 200 mls/hr Q18H IV 01/23/17 10:00 01/30/17 09:59 01/23/17 09:51 200 MLS/HR Objective Vital Signs Date Time Temp Pulse Resp B/P Pulse Ox O2 Delivery O2 Flow Rate FiO2 01/23/17 07:31 36.5 80 20 146/90 93 Room Air 01/23/17 01:53 Room Air 01/22/17 23:59 36.6 63 18 148/71 93 Room Air 01/22/17 22:16 96 Room Air 01/22/17 20:57 36.4 114 16 161/90 98 Room Air 01/22/17 20:08 36.7 79 20 125/61 95 Room Air 01/22/17 19:38 36.3 80 18 95 01/22/17 16:35 36.3 80 18 114/70 95 Room Air 01/22/17 16:00 Room Air 01/22/17 12:23 36.4 77 19 133/76 96 Room Air 01/22/17 12:00 Room Air Physical Exam General Appearance: WD/WN, no apparent distress Eyes: normal inspection, sclerae normal ENT: normal ENT inspection, pharynx normal Neck: supple, no adenopathy, trachea midline Respiratory/Chest: lungs clear, no respiratory distress, no accessory muscle use, + decreased breath sounds, + pertinent finding (chest wall tenderness, cath in place) Cardiovascular: regular rate, rhythm, no gallop, no murmur Abdomen: normal bowel sounds, non tender, soft, no organomegaly Extremities: non-tender, + pertinent finding (left BKA) Neurologic/Psychiatric: alert, oriented x 3 Skin: normal color, warm/dry, no rash Lymphatic: no adenopathy Laboratory Results RUN DATE: 01/23/17 [facility] LAB PAGE 1 RUN TIME: 1023 Specimen Inquiry PATIENT: ALIEBRITTALUZ RICHEY LOC: THIAGO Paulino # : [id number] AGE/SX: 66/M ROOM: [facility] REG : 01/19/[address]: Cristina Durbin DO : 1950 BED: 1 DIS : STATUS: ADM IN TLOC: SPEC #: [id number] JONATHAN: 01/20/17-UNK STATUS: COMP REQ #: [id number] RECD: 01/20/[address]: Cristina Durbin DO SOURCE: DRAIN-SURF ENTR: 01/20/[address]: Dustin Iyer M.D. SPDESC: HAND RIGHT Kip Addison D.O. Sensiba, Paul R., M.D. Whitlark, Joseph D., MD ORDERED: SURF WND CU/SMR COMMENTS: Has Specimen Been Obtained/Collected? Y Procedure Result Verified Site GRAM STAIN Final 01/21/17-719 RESULT RARE GRAM POSITIVE COCCI RARE WBCs SEEN SURFACE WOUND CULTURE Final 01/23/17-1023 Organism 1 STAPHYLOCOCCUS AUREUS QUANITY RARE SENS SENSITIVITY TO FOLLOW +MIXWOUND PLUS LOW COUNTS OF PROBABLE SKIN COMFORT Organism 2 STAPHYLOCOCCUS AUREUS#2 QUANITY RARE SENS SENSITIVITY TO FOLLOW STAPH AUR STAPH AUR#2 M.I.C. RX M.I.C. RX --------- ------ --------- ------ TRIMET/SULFA <=0.5/9.5 S <=0.5/9.5 S * OXACILLIN 0.5 S <=0.25 S VANCOMYCIN 2 S 1 S ERYTHROMYCIN >4 R >4 R TETRACYCLINE <=4 S <=4 S CLINDAMYCIN <=0.5 R <=0.5 R DAPTOMYCIN <=0.5 S <=0.5 S 1. STAPHYLOCOCCUS AUREUS Target Route Dose RX AB Cost M.I.C. IQ ------ ----- ------ -- ------ -------- - ------ TRIMET/SULFA S <=0.5/ 9.5 * OXACILLIN S 0.5 VANCOMYCIN S 2 ERYTHROMYCIN R >4 TETRACYCLINE S <=4 CLINDAMYCIN R <=0.5 DAPTOMYCIN S <=0.5 CONTINUED ON NEXT PAGE RUN DATE: 01/23/17 [facility] PAGE 2 RUN TIME: 1023 Specimen Inquiry SPEC: [id number] PATIENT: LUZ CRUZ [id number] ( Continued) Procedure Result Verified Site SURFACE WOUND CULTURE Final (continued) 01/23/17-1023 2. STAPHYLOCOCCUS AUREUS#2 Target Route Dose RX AB Cost M.I.C. IQ ------ ----- ------ -- ------ -------- - ------ TRIMET/SULFA S <=0.5/ 9.5 * OXACILLIN S <=0.25 VANCOMYCIN S 1 ERYTHROMYCIN R >4 TETRACYCLINE S <=4 CLINDAMYCIN R <=0.5 DAPTOMYCIN S <=0.5 S = SENSITIVE I = INTERMEDIATE R = RESISTANT Last 24 Hours Test 01/22/17 11:05 01/22/17 11:18 01/22/17 16:26 01/22/17 20:13 Vitamin B12 Level 871 pg/mL Folate 15.45 ng/mL Bedside Glucose 203 mg/dl 230 mg/dl 270 mg/dl Test 01/23/17 07:03 01/23/17 07:25 Bedside Glucose 186 mg/dl Creatinine 1.60 mg/dl Est Creatinine Clear Calc Drug Dose 59.1 ml/min Estimated GFR () 51.3 Estimated GFR (Non- 44.2 Random Vancomycin Level 17.8 mcg/ml Patient Name: LUZ CRUZ Unit Number: [id number] Dictated: 01/23/17756 Transcribed: 01/23/17756 LIDIA Printed Date/Time: [~ rep prt dt]/[~ rep prt tm] [~ rep ct labl] - [~ rep ct ivnm] [facility] [place] [place] [address] Dictated: 01/23/17756 Transcribed: 01/23/17756 LIDIA Printed Date/Time: [~ rep prt dt]/[~ rep prt tm] [~ rep ct labl] - [~ rep ct ivnm] CLINICAL HISTORY: Pain with pleurx drainage COMPARISON STUDY: Chest radiograph January 22, 2017. FINDINGS: A right basilar pleural catheter is in place. Multiple displaced right lower rib fractures are again noted. No pneumothorax is identified. A small right pleural effusion with right basilar opacity is unchanged. Cardiomegaly is noted. A left subclavian pacer/AICD is in place. There is pulmonary vascular congestion without overt pulmonary edema. IMPRESSION: No change in the small right pleural effusion with right basilar opacity. Right pleural catheter in place. Electronically signed by: Ramesh Ham M.D. 01/23/2017 7:59 AM Dictated Date/Time: 01/23/2017 7:57 AM The status of this report is Signed. Draft = Not yet reviewed or approved by Radiologist. Signed = Reviewed and approved by Radiologist. <AttendingPhy>Cristina Durbin DO</AttendingPhy> <FamilyPhy>Kip Addison D.O.</FamilyPhy> <PrimaryPhy>Kip Addison D.O.</PrimaryPhy> <UnitNumber> [id number]</UnitNumber> <VisitNumber>[id number]</VisitNumber> <PatientName> ALIEBRENDALUZ</PatientName> <DateOfBirth>1950</DateOfBirth> <Location> C.MS2W</Location> <ServiceDate>01/19/17</ServiceDate> <MNE>ESINDI</MNE> < OrderingPhy>Nuhng Faustin MD</OrderingPhy> <OrderingPhyMNE>f rep ord dr olivares</ OrderingPhyMNE> <DictatingPhyMNE>f rep dict dr olivares</DictatingPhyMNE> <CCListMNE> f rep ct mne</CCListMNE> <AdmittingPhyMNE>f pt admit dr olivares</AdmittingPhyMNE> < AttendingPhyMNE>f pt attend dr olivares</AttendingPhyMNE> <ConsultingPhyMNE>f pt consult dr olivares</ConsultingPhyMNE> <FamilyPhyMNE>f pt fam dr olivares</FamilyPhyMNE> <OtherPhyMNE>f pt other dr olivares</OtherPhyMNE> < PrimaryPhyMNE>f pt prim care dr olivares</PrimaryPhyMNE> <ReferringPhyMNE>f pt referring dr olivares</ReferringPhyMNE> Assessment and Plan 66-year-old male with diabetes mellitus, previous right hand infection status post amputation of fingers, now with nonhealing wound with purulent drainage, now growing Staph aureus (MSSA). Will change to oral cephalexin and d/c vancomycin. Will follow.
[2017-01-23] MEDS ORDERED: MoRPHine SULFATE 4 MG/ML 1 ML CARP\\VIAL IV STA (13:21)
--- NOTE | 2017-01-23 13:26 | Pharmacy Progress Note ---
Glycemic Control: Progress Nt Date of Service January 23, 2017. Scope Glycemic Pharmacist consulted by Dr Durbin on 01/19/17 for glycemic control and to write orders per [facility] inpatient glycemic control protocol. Objective Accuchecks BSG (last 24hrs): Test 01/22/17 16:26 01/22/17 20:13 01/23/17 07:03 01/23/17 11:10 Bedside Glucose 230 mg/dl (70-99) 270 mg/dl (70-99) 186 mg/dl (70-99) 193 mg/dl (70-99) Laboratory Data (last 24hrs) Test 01/23/17 07:25 Creatinine 1.60 mg/dl HbA1c: Test 01/20/17 05:38 Hemoglobin A1c 8.2 % (4.5-5.6) H Recent Pertinent Medications Outpatient Anti-diabetic Regimen: * Levemir 80 units BID plus Regular insulin 3 units BIDM; glyburide 5 mg PO daily The patient is currently receiving: * Basal insulin: Lantus 25 units every 12 hours * Correctional Insulin: Novolog Correction per scale ACHS Goal Range: Low 110 mg/dL - High 140 mg/dL Correction Factor: 15 mg/dL/unit * Prandial insulin: Per carb ratio of 1 unit per 5 grams CHO consumed Risk Factors for Insulin Resistance: * Infection: R finger wound infection (vancomycin IV --> Keflex PO) * Recent Surgery: POD 4 for Pleurex cath due to hemothorax * Diet: type 2 diabetic diet Assessment & Plan ASSESSMENT: * ADA & AACE recommend a goal blood sugar range 140-180 mg/dl for the majority of critically ill & non-critically ill patients. However, more stringent targets may be selected in individual cases. Will utilize more stringent goal of 110-140mg/dl based on patient age & comorbidities. Additionally, tighter glycemic control is warranted to facilitate wound/infection healing. * Mr Koroma was admitted 01/19/17 for a fall with pleural effusion and rib fractures. 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 During his hospital stay the patient has received around 80-90 units of insulin per day. His previous hospital stay he required ~ 70 units/day. * Currently, Mr Koroma received 95 units yesterday with blood sugars ranging from 182 mg/dL-270 mg/dL. His correctional insulin was changed to reflect a TDD of 100 units/day. I was concerned that this did not cover the patient's carbohydrate intake enough so it was reversed to his previous correctional insulin. For his Lantus, a different scale was utilized. There is concern that because of his kidney injury he could accumulate Lantus. Therefore a lower dose was provided in case the patient had lower blood sugars. PLAN FOR INPATIENT GLYCEMIC CONTROL: * CHANGING Lantus to 15 units if BSG < 120 mg/dL and 25 units if BSG 120 mg/dL or greater SQ BID * TIGHTENING correction factor to 12 mg/dl/unit * TIGHTENING carb ratio to 1 unit per 4 grams CHO consumed * Continuing goal range of Low 110 mg/dL - High 140 mg/dL RECOMMENDATIONS FOR DISCHARGE: * Mr Koroma appears to have adequate control of his blood sugars for his age and co-morbidities. He may not be a candidate for glyburide due to his changing kidney function and his age. This can contribute to hypoglycemia. * Please note that the plan above was derived based on current level of insulin resistance and hospital stress. These recommendations are appropriate for inpatient admission only. Plan of care upon discharge will need to be reassessed to avoid potential outpatient hypo/hyperglycemia. Thank you.
[2017-01-23] MEDS: CEPHALEXIN MONOHYDRATE 500 MG CAP PO SCH ×3 (13:38→21:29)
--- NOTE | 2017-01-23 13:39 | Progress Note ---
Medicine Progress Note Date & Time of Visit: January 23, 2017 at 13:23. Subjective 66 yo M with h/o recent admission for septic shock 2/2 finger infection presents with dyspnea 2/2 hemothorax on the R 2/2 trauma two weeks ago. He is s /p thoracentesis with 1500cc out initially, PATRICIA which has resolved. PleurX catheter remains and CT surg team to decide on final plan with that in next 1-2 days. -patient reporting worse pain in his R chest area. -tolerating PO -denies pain anywhere else -no fevers overnight -CT surg team placed tPA in PleurX this morning. Objective Last 8 Hrs Date Time Temp Pulse Resp B/P Pulse Ox O2 Delivery O2 Flow Rate FiO2 01/23/17 07:31 36.5 80 20 146/90 93 Room Air Physical Exam: GEN: WNWD, in no acute distress, alert and appropriate, not ill-appearing. HEENT: NC/AT, pupils are equal and round, normal sclerae/conjunctivae, MMM CARDIO: reg rate, S1/2 heard without m/g/r LUNGS: CTA bilaterally, no crackles, rales or wheezes, good diaphragmatic excursion, chest wall TTP in anterior chest on the R. BACK: Pleurx catheter in place and taped against body-blood tinged drainage is present. Dressing is dry and intact. ABD: soft, non-tender, non-distended, no rebound or guarding, +BS EXTREMITY: Both hands have multiple finger amputations. R hand: purulent drainage over recent surgical wound which is closed, no surrounding erythema, sensation decrease in the hand. LLE BTK amputation-skin clear and leg is warm and well-perfused. RLE -multiple closed scab wounds present on leg, DP2+ and warm and well perfused. Sensation low in this area. Sensation loss in combs distribution on R hand NEURO: CN 2-12 grossly intact aside from sensation loss as above. MUSC: slow to move 2/2 pain, moves all extremities equally. SKIN: warm and dry and wounds as above. There is a wound on his posterior neck from recent ICU stay and strap used to hold ventilator in place. Laboratory Results: 01/22/17 06:20 Red Blood Count 3.22, Mean Corpuscular Volume 85.1, Mean Corpuscular Hemoglobin 28.9, Mean Corpuscular Hemoglobin Concent 33.9, Mean Platelet Volume 9.2, Neutrophils (%) (Auto) 74.7, Lymphocytes (%) (Auto) 14.2, Monocytes (%) (Auto) 5.9, Eosinophils (%) (Auto) 3.2, Basophils (%) (Auto) 0.3, Neutrophils # (Auto) 7.24, Lymphocytes # (Auto) 1.38, Monocytes # (Auto) 0.57, Eosinophils # (Auto) 0.31, Basophils # (Auto) 0.03 01/22/17 06:20 01/23/17 07:25 Test 01/19/17 05:30 01/19/17 05:37 01/19/17 08:40 01/19/17 08:42 Prothrombin Time 10.5 SECONDS (9.0-12.0) Prothromb Time International Ratio 1.0 (0.9-1.1) Total Bilirubin 0.4 mg/dl (0.2-1) Direct Bilirubin 0.1 mg/dl (0-0.2) Aspartate Amino Transf (AST/SGOT) 10 U/L (15-37) Alanine Aminotransferase (ALT/SGPT) 18 U/L (12-78) Alkaline Phosphatase 127 U/L (45-117) Total Protein 6.9 gm/dl (6.4-8.2) Albumin 3.2 gm/dl (3.4-5.0) Beta-Hydroxybutyric Acid 1.28 mg/dL (0.2-2.81) Thyroid Stimulating Hormone (TSH) 5.110 uIu/ml (0.300-4.500) Bedside Troponin I 0.040 ng/ml (0-0.045) Pleural Fluid Source RIGHT LUNG Pleural Fluid Color RED Pleural Fluid Appearance BLOODY Pleural Fluid WBC 2053 /uL Pleural Fluid RBC 1293697 /uL Pleural Fluid pH 7.21 (7.3-7.4) Pleural Fluid Polynuclear WBCs % 36.8 % Pleural Fluid Mononuclear WBCs % 63.2 % Pleural Fluid Total Protein 5.4 g/dl Pleural Fluid LDH 334 IU Pleural Fluid Glucose 199 mg/dl Pleural Fluid Amylase 21 U/L Pleural Fluid Cholesterol 321 mg/dL Bedside Blood Gas pH (LAB) 7.25 (7.35-7.45) Bedside Blood Gas pCO2 (LAB) 56 mmHg (35-46) Bedside Blood Gas pO2 (LAB) < 32 mmHg (80-95) Bedside Blood Gas HCO3 (LAB) 25 meq/L (19-24) Bedside Blood Gas Total CO2 26 mEq/l (24-31) Bedside Blood Gas Base Excess (LAB) -3.0 meq/L (-9-1.8) Bedside Blood Gas O2 Saturation 35.0 % (90-95) Test 01/19/17 18:30 01/20/17 00:00 01/20/17 05:38 01/21/17 07:33 Urine Color DK YELLOW Urine Appearance CLEAR (CLEAR) Urine pH 5.0 (4.5-7.5) Urine Specific Joaquin 1.029 (1.000-1.030) Urine Protein NEG (NEG) Urine Glucose (UA) 1+ (NEG) Urine Ketones NEG (NEG) Urine Occult Blood NEG (NEG) Urine Nitrite NEG (NEG) Urine Bilirubin NEG (NEG) Urine Urobilinogen NEG (NEG) Urine Leukocyte Esterase NEG (NEG) Urine Random Creatinine 260.0 mg/dl Urine Random Sodium 5 mEq/L Estimated Average Glucose 189 mg/dl Hemoglobin A1c 8.2 % (4.5-5.6) Magnesium Level 2.4 mg/dl (1.8-2.4) Red Blood Cell Morphology Unremarkable Test 01/22/17 06:20 01/22/17 11:05 01/23/17 07:25 01/23/17 11:10 White Blood Count 9.69 K/uL (4.8-10.8) Red Blood Count 3.22 M/uL (4.7-6.1) Hemoglobin 9.3 g/dL (14.0-18.0) Hematocrit 27.4 % (42-52) Mean Corpuscular Volume 85.1 fL (80-100) Mean Corpuscular Hemoglobin 28.9 pg (25-34) Mean Corpuscular Hemoglobin Concent 33.9 g/dl (32-36) Platelet Count 248 K/uL (130-400) Mean Platelet Volume 9.2 fL (7.4-10.4) Neutrophils (%) (Auto) 74.7 % Lymphocytes (%) (Auto) 14.2 % Monocytes (%) (Auto) 5.9 % Eosinophils (%) (Auto) 3.2 % Basophils (%) (Auto) 0.3 % Neutrophils # (Auto) 7.24 K/uL (1.4-6.5) Lymphocytes # (Auto) 1.38 K/uL (1.2-3.4) Monocytes # (Auto) 0.57 K/uL (0.11-0.59) Eosinophils # (Auto) 0.31 K/uL (0-0.5) Basophils # (Auto) 0.03 K/uL (0-0.2) RDW Standard Deviation 45.8 fL (36.4-46.3) RDW Coefficient of Variation 14.7 % (11.5-14.5) Immature Granulocyte % (Auto) 1.7 % Immature Granulocyte # (Auto) 0.16 K/uL (0.00-0.02) Erythrocyte Sedimentation Rate 51 mm/hr (0-14) Anion Gap 7.0 mmol/L (3-11) BUN/Creatinine Ratio 27.3 (10-20) Calcium Level 8.5 mg/dl (8.5-10.1) C-Reactive Protein 19.40 mg/dl (0-0.29) Vitamin B12 Level 871 pg/mL (211-911) Folate 15.45 ng/mL (>5.38) Est Creatinine Clear Calc Drug Dose 59.1 ml/min Estimated GFR () 51.3 Estimated GFR (Non- 44.2 Random Vancomycin Level 17.8 mcg/ml Bedside Glucose 193 mg/dl (70-99) Date/Time Source Procedure Growth Status 01/20/17 12:30 Blood Blood Culture - Preliminary NO GROWTH TO DATE. Resulted 01/19/17 18:30 Urine , Clean Catch Urine Culture - Final NO GROWTH - LESS THAN 1,000 COLONIES/ML Complete 01/20/17 00:00 Drainage - Surface Hand Right Gram Stain - Final Complete 01/20/17 00:00 Wound Culture - Final Staphylococcus Aureus Staphylococcus Aureus#2 Complete Last 24 Hours Test 01/22/17 16:26 01/22/17 20:13 01/23/17 07:03 01/23/17 07:25 Bedside Glucose 230 mg/dl 270 mg/dl 186 mg/dl Creatinine 1.60 mg/dl Est Creatinine Clear Calc Drug Dose 59.1 ml/min Estimated GFR () 51.3 Estimated GFR (Non- 44.2 Random Vancomycin Level 17.8 mcg/ml Test 01/23/17 11:10 Bedside Glucose 193 mg/dl Assessment & Plan 66 yo M with h/o recent admission for septic shock 2/2 finger infection presents with dyspnea 2/2 hemothorax on the R 2/2 trauma two weeks ago. He is s /p thoracentesis with 1500cc out initially, PATRICIA which has resolved. PleurX catheter remains and CT surg team to decide on final plan with that in next 1-2 days. 1. Dyspnea and chest pain 2/2 R hemothorax with displaced rib fractures-s/p thoracentesis on 01/19 with Pleurx catheter placement in the ER by CT surg team. 1500ml out initially and 350 out overnight. Supportive care with pain control. Repeat CXR improved and breathing reported to be better per patient. 01/21: PleurX catheter output was 200cc overnight. Continues to drain blood- tinged fluid. Pain from rib fractures is controlled and breathing has improved ; no hypoxia. Cont incentive spirometry. 01/22: PleurX 50 cc out. Pain with rib fractures is stable. 01/23: tPA administered through PleurX, 100c return per nurse. Pt is having significant pain with no shortness of breath. Morphine IV prn started for additional pain control. 2. Rib fractures-multiple anterior rib fractures-supportive care as above. 3. R hand wound-patient reports sensation loss in R hand since amputation 6-8 weeks ago in a glove distribution. He was admitted for septic source with a finger infection as the source. It appears the wound is closed but there is purulent material over the area. Pt denies any pain, fevers, or chills. This patient appears to have very poor wound care with a drainage-soaked bandage that is old-appearing. Wound care consulted. Will xray the hand to look for soft tissue gas or presence of osteo. Will obtain ESR and CRP and trend this-- of note, no leukocytosis is present. Will cover with Vanc empirically-- although prior cultures from this wound grew MSSA he has a h/o MRSA and with recent hospitalization has increased risk for this. Will consult Ortho-hand for evaluation. 01/21: still has glove-distribution numbness that is present. Wound is closed and no longer draining. Cont empiric abx until we can rule out osteomyelitis in setting of elevated CRP, recent operation in this area and known poor wound care post-op in an uncontrolled diabetic. Awaiting ID consult. Prefer to get contrasted MRI study but cannot obtain until kidney function improves. Ortho aware of wound and 4th metacarpal fracture-appreciate recs. 01/22: non-operative per Ortho, stable from their perspective 01/23: wound growing MSSA, Vanc changed to Cephalexin per ID. Will monitor progress. Of note he remains afebrile and blood cultures are negative. 4. 4th metacarpal fracture in had 2/2 fall -per Ortho as above. 5. Anemia-acute, likely 2/2 acute blood loss in addition to dilution effect from IVF overnight given for AUR. Initially 07/03, dropped to 7.8/23 overnight. Catheter still draining some blood-tinged fluid so expect a further drop and patient is having significant fatigue. Plan to transfuse two units at this time. 01/21: output from chest tube has slowed. H/H improved to 8.7/25. Trend CBC in am. 01/22: HH is stable at 9.3/27.4 6. PATRICIA in setting of CKD IV-Creat at baseline. Cont home meds, renally dose meds and avoid nephrotoxic substances. Etiology is likely acute urinary retention yesterday. Fluid bolus given overnight and Newby placed yesterday. Creat up to 2.5 today. Cont Newby for now and trend PRP in am. Pt reports no issues at home RE: BPH symptoms, so will ensure adequately hydrated prior to Newby removal trial without starting tamsulosin. 01/21: Urine Na was 5 in setting of recent Lasix use, FeNa <0.1% -->severe dehydration present. Cont IVF throughout the day today and watch for improvement in the morning. Cont Newby for now for accurate I/O assessment. Will consult Nephro if no improvement tomorrow. Avoiding contrasted studies at this time. 01/22: some improvement of creat from 2.7 to 2.4 with IVF, but will stop now out of concern for third spacing and overload in setting of cardiomyopathy. will repeat creat in am. 01/23: resolved to baseline 1.6. With creat just improved, will wait one more day and start Lasix at 50% of home dose. Cont to hold metolazone. 7. Acute urinary retention-poss 2/2 BPH but patient denies symptoms of this. Poss also 2/2 significant dehydration. Expect to be fine once we rehydrate him and remove the Newby. 01/22: urine still appears darker in color despite IVF. Will d/c Newby at this time as kidney function is improved. 8. DMII longstanding with known complications of neuropathy and vasculopathy- cont ISS/Lantus with pharmacy consult for assist. per Pharm recs. 9. Idiopathic dilated cardiomyopathy with severe LV dysfunction (Dx 2000): will monitor clinically and check daily weights post-procedure. Appears euvolemic at this time. Cont home meds aside form ASA in setting of hemothorax and PATRICIA. Lasix/metolazone held in setting of PATRICIA. 10. Superimposed CAD s/p stent placement for high grade LAD stenosis-in setting of prior stents, cont ASA. 11. Hypothyroidism-cont home Synthroid, TSH slightly elevated to 5. Defer to outpatient PCP for adjustment unless fatigue doesn't improve with blood administration. 01/21: Pt feels better today after blood transfusion yesterday 12. Gout-no acute flares, cont allopurinol 13. Dysequilibrium- likely multifactorial etiology in the setting of diabetic neuropathy with vasculopathy and likely autonomic dysfunction. He has multiple amputations contributing to balance loss in the setting of possible hypoglycemic episodes as described. He also has a h/o recent trauma to the back of his head after feeling unsteady and falling on the concrete outside of his house. He had ? loss of consciousness at that time. CT head on admission was negative for any acute stroke, and clinically this is not apparent. However , source of vertigo/dysequilibrium in the setting of trauma is uncertain. Enlisted the help of Neurology. Will obtain a non-contrast MRI head and MRA neck to ensure no issues with posterior circulation. Contrasted study is contraindicated in the setting of PATRICIA. 01/22: per Neuro this is 2/2 diabetic autonopathy; other reversible possibilities are being considered, however. Full Code Diet-2gm Na restric. ADA DVT proph-hold in setting of bleeding and recent procedure, consider starting when H/H stable and OK with CT surg team. Dispo-cont to monitor pt on telemetry DO [facility] Hospital[facility] Consultants: Neuro, ID, Ortho, CT surg Current Inpatient Medications: Current Inpatient Medications Medications (Trade) Dose Ordered Sig/Ifeanyi Route Start Time Stop Time Status Last Admin Dose Admin Glucose (Glucose 40% Gel) 15-30 GRAMS 15 GRAMS... UD PRN PO 01/19/17 08:15 02/18/17 08:14 Glucose (Glucose Chew Tab) 4-8 Tablets 4 Tabl... UD PRN PO 01/19/17 08:15 02/18/17 08:14 Dextrose (Dextrose 50% 50ML Syringe) 25-50ML OF 50% DW IV FOR... UD PRN IV 01/19/17 08:15 02/18/17 08:14 Glucagon (Glucagon Inj) 1 mg UD PRN SQ 01/19/17 08:15 02/18/17 08:14 Miscellaneous Information (Consult Glycemic Management Pharmacy) 1 ea UD PRN N/A 01/19/17 08:34 02/18/17 08:33 Ondansetron HCl (Zofran Inj) 4 mg Q6H PRN IV 01/19/17 08:15 02/18/17 08:14 Morphine Sulfate (MoRPHine SULFATE INJ) 2 mg Q2H PRN IV 01/19/17 08:15 02/02/17 08:14 01/22/17 08:43 2 MG Polyethylene (Miralax Powder Packet) 17 gm DAILY PRN PO 01/19/17 08:15 02/18/17 08:14 01/21/17 12:57 17 GM Allopurinol (Zyloprim Tab) 300 mg DAILY PO 01/20/17 09:00 02/19/17 08:59 01/23/17 07:42 300 MG Atorvastatin Calcium (Lipitor Tab) 80 mg DAILY PO 01/20/17 09:00 02/19/17 08:59 01/23/17 07:41 80 MG Isosorbide Mononitrate (Imdur Ext Rel Tab) 15 mg QAM PO 01/20/17 09:00 02/19/17 08:59 01/23/17 07:43 15 MG Levothyroxine Sodium (Synthroid Tab) 50 mcg DAILYBB PO 01/20/17 06:00 02/19/17 05:59 01/23/17 06:22 50 MCG Losartan Potassium (coZAAR TAB) 25 mg DAILY PO 01/20/17 09:00 02/19/17 08:59 01/23/17 07:42 25 MG Metoprolol Succinate (Toprol Xl Tab) 25 mg BID PO 01/19/17 21:00 02/18/17 20:59 01/23/17 07:42 25 MG Sertraline HCl (Zoloft Tab) 100 mg DAILY PO 01/20/17 09:00 02/19/17 08:59 01/23/17 07:41 100 MG Aspirin (Ecotrin Tab) 81 mg DAILY PO 01/20/17 09:00 02/19/17 08:59 01/23/17 07:42 81 MG Insulin Aspart (novoLOG ASPART) SLIDING SCALE If C... ACHS SC 01/20/17 07:00 02/19/17 06:59 01/23/17 12:44 5 UNITS Insulin Detemir (Levemir Flexpen/ FlexTouch) BID SC 01/19/17 21:00 02/18/17 20:59 01/23/17 09:30 25 UNIT Acetaminophen (Tylenol Tab) 1,000 mg Q8 PO 01/19/17 14:00 02/18/17 13:59 Future hold 01/23/17 06:23 1,000 MG Tramadol HCl (Ultram Tab) 50 mg Q8H PRN PO 01/19/17 12:57 02/18/17 12:56 01/20/17 19:45 50 MG Multi-Ingredient Ointment (Eucerin Unscented Cr) 1 appln BID EXT 01/22/17 09:00 02/21/17 08:59 01/23/17 07:40 1 APPLN Cephalexin Monohydrate (Keflex Cap) 500 mg QID PO 01/23/17 13:00 03/06/17 12:59
--- NOTE | 2017-01-23 15:43 | SURGERY PROGRESS NOTE ---
DATE: 01/23/2017 SUBJECTIVE: Mr. Koroma is seen today on 01/23/2017. We placed a PleurX catheter in him upon his admission for hemothorax. He has improved from a respiratory standpoint; however, we are draining very little from his PleurX catheter. His saturations are acceptable on room air. We initially drained over 1500 mL back on 4 days ago. His x-ray was better, but he still has some fluid in his right pleural cavity which is concerning. We are going to go ahead and put some tissue plasminogen activator into his tube, to see if we can drain some of this hemothorax. We did explain this possibility of bleeding with this as he did come in with a hemothorax, however, I think it has been long enough that I am just hopeful we can thrombolyse some of this blood, so we can get it out of his chest. RENETTA
[2017-01-23 16:18] VITALS: BP 128/66; PULSE 73; TEMP 36.6; O2SAT 95
[2017-01-23 21:25] VITALS: BP 147/78; PULSE 76
[2017-01-24 01:11] VITALS: BP 151/73; PULSE 81; TEMP 36.7; O2SAT 92
[2017-01-24] MEDS: MoRPHine SULFATE 4 MG/ML 1 ML CARP\\VIAL IV PRN ×3 (04:51→17:09)
[2017-01-24] MEDS: ACETAMINOPHEN 500 MG TAB PO SCH ×3 (05:44→22:17)
[2017-01-24] MEDS: LEVOTHYROXINE 50 MCG TAB PO SCH (05:44)
[2017-01-24 06:26] LABS: HEMATOCRIT 28.1 % (42-52); MEAN CORPUSCULAR HEMOGLOBIN 28.2 pg (25-34); MEAN CORPUSCULAR HGB CONC 32.4 g/dl (32-36); MEAN PLATELET VOLUME 8.8 fL (7.4-10.4); PLATELET COUNT 314 K/uL (130-400); RED BLOOD COUNT 3.23 M/uL (4.7-6.1); WHITE BLOOD COUNT 11.09 K/uL (4.8-10.8)
[2017-01-24 06:37] LABS: BUN/CREATININE RATIO 30.2 (10-20); CALCIUM 8.7 mg/dl (8.5-10.1); CREATININE 1.2 mg/dl (0.60-1.40); MAGNESIUM 2.6 mg/dl (1.8-2.4); POTASSIUM 4.4 mmol/L (3.5-5.1)
[2017-01-24 07:26] VITALS: BP 119/89; PULSE 62; TEMP 36.7; O2SAT 97
--- NOTE | 2017-01-24 08:06 | DIAGNOSTIC IMAGING REPORT ---
CHEST ONE VIEW PORTABLE CLINICAL HISTORY: Effusion. COMPARISON STUDY: Chest radiograph January 23, 2017. FINDINGS: A left subclavian pacer/AICD is in place. Lung volumes are diminished. Cardiomegaly is again noted. Right-sided rib fractures are again demonstrated. The previously identified right pleural catheter is not well visualized on this exam but appears to be in place. A small right pleural effusion is noted. Bibasilar opacities are noted. Left basilar opacity is progressed. There is pleural vascular congestion. There is no pneumothorax. IMPRESSION: 1. No significant change in a small right pleural effusion. 2. Increasing left basilar opacity which could reflect pneumonia or atelectasis. 3. Pulmonary vascular congestion. Electronically signed by: Ramesh Ham M.D. 01/24/2017 8:05 AM Dictated Date/Time: 01/24/2017 8:03 AM
[2017-01-24] MEDS: CEPHALEXIN MONOHYDRATE 500 MG CAP PO SCH ×4 (08:53→22:17)
[2017-01-24] MEDS: METOPROLOL SUCC 25MG EXT REL TAB PO SCH ×2 (08:53→22:17)
[2017-01-24] MEDS: ASPIRIN 81 MG ECTAB PO SCH (08:54)
[2017-01-24] MEDS: FUROSEMIDE 40 MG TAB PO SCH ×2 (08:54→17:10)
[2017-01-24] MEDS: ALLOPURINOL 300 MG TAB PO SCH (08:54)
[2017-01-24] MEDS: ATORVASTATIN 40 MG TAB PO SCH (08:54)
[2017-01-24] MEDS: ISOSORBIDE MONONITRATE 30 MG TABCR PO SCH (08:54)
[2017-01-24] MEDS: EUCERIN CR 120 GM JAR EXT SCH ×2 (08:55→22:17)
[2017-01-24] MEDS: LOSARTAN POTASSIUM 25 MG TAB PO SCH (08:55)
[2017-01-24] MEDS: SERTRALINE HCL 50 MG TAB PO SCH (08:55)
[2017-01-24] MEDS: INSULIN ASPART 100 UNITS/ML 3 ML PEN SC SCH ×4 (09:00→22:24)
[2017-01-24] MEDS: INSULIN DETEMIR FLEXPEN/FLEX TOUCH 100 UNITS/ML 3ML SC SCH ×2 (09:00→22:23)
[2017-01-24] MEDS ORDERED: ALTEPLASE, RECOMBINANT 1 MG/ML 2 ML VIAL IPL ONE (09:00)
--- NOTE | 2017-01-24 10:56 | SURGERY PROGRESS NOTE ---
DATE: 01/24/2017 DATE: 01/24/2017. Mr. Koroma is seen today. His x-ray really has not changed much. I think he still has some loculated blood on the right side. We drained very little from the PleurX with the 2 mg of TPA in 10 mL. We are going to put 4 mg in 30 mL today to see if we get some of this to loosen up. Otherwise, I think he looks better. He could always go home with this tube in, but I think at this point I would feel better if we put more TPA in. MTDD
--- NOTE | 2017-01-24 13:37 | Infectious Disease Progress Nt ---
Progress Note Date of Service January 24, 2017. Subjective Pt evaluation today including: conversation w/ patient, physical exam, chart review, lab review, review of studies, conversation w/ dynamics ax consultant, review of inpatient medication list Patient offering no new complaints today. Pain controlled. Remains afebrile. No increase in shortness of breath. Tolerating antibiotic therapy so far. All Other Systems: Reviewed and Negative Medications Current Inpatient Medications Medications (Trade) Dose Ordered Sig/Ifeanyi Route Start Time Stop Time Status Last Admin Dose Admin Glucose (Glucose 40% Gel) 15-30 GRAMS 15 GRAMS... UD PRN PO 01/19/17 08:15 02/18/17 08:14 Glucose (Glucose Chew Tab) 4-8 Tablets 4 Tabl... UD PRN PO 01/19/17 08:15 02/18/17 08:14 Dextrose (Dextrose 50% 50ML Syringe) 25-50ML OF 50% DW IV FOR... UD PRN IV 01/19/17 08:15 02/18/17 08:14 Glucagon (Glucagon Inj) 1 mg UD PRN SQ 01/19/17 08:15 02/18/17 08:14 Miscellaneous Information (Consult Glycemic Management Pharmacy) 1 ea UD PRN N/A 01/19/17 08:34 02/18/17 08:33 Ondansetron HCl (Zofran Inj) 4 mg Q6H PRN IV 01/19/17 08:15 02/18/17 08:14 Polyethylene (Miralax Powder Packet) 17 gm DAILY PRN PO 01/19/17 08:15 02/18/17 08:14 01/21/17 12:57 17 GM Allopurinol (Zyloprim Tab) 300 mg DAILY PO 01/20/17 09:00 02/19/17 08:59 01/24/17 08:54 300 MG Atorvastatin Calcium (Lipitor Tab) 80 mg DAILY PO 01/20/17 09:00 02/19/17 08:59 01/24/17 08:54 80 MG Isosorbide Mononitrate (Imdur Ext Rel Tab) 15 mg QAM PO 01/20/17 09:00 02/19/17 08:59 01/24/17 08:54 15 MG Levothyroxine Sodium (Synthroid Tab) 50 mcg DAILYBB PO 01/20/17 06:00 02/19/17 05:59 01/24/17 05:44 50 MCG Losartan Potassium (coZAAR TAB) 25 mg DAILY PO 01/20/17 09:00 02/19/17 08:59 01/24/17 08:55 25 MG Metoprolol Succinate (Toprol Xl Tab) 25 mg BID PO 01/19/17 21:00 02/18/17 20:59 01/24/17 08:53 25 MG Sertraline HCl (Zoloft Tab) 100 mg DAILY PO 01/20/17 09:00 02/19/17 08:59 01/24/17 08:55 100 MG Aspirin (Ecotrin Tab) 81 mg DAILY PO 01/20/17 09:00 02/19/17 08:59 01/24/17 08:54 81 MG Insulin Aspart (novoLOG ASPART) SLIDING SCALE If C... ACHS SC 01/20/17 07:00 02/19/17 06:59 01/24/17 12:16 14 UNITS Insulin Detemir (Levemir Flexpen/ FlexTouch) BID SC 01/19/17 21:00 02/18/17 20:59 01/24/17 09:00 15 UNIT Acetaminophen (Tylenol Tab) 1,000 mg Q8 PO 01/19/17 14:00 02/18/17 13:59 Future hold 01/24/17 12:56 1,000 MG Tramadol HCl (Ultram Tab) 50 mg Q8H PRN PO 01/19/17 12:57 02/18/17 12:56 01/20/17 19:45 50 MG Multi-Ingredient Ointment (Eucerin Unscented Cr) 1 appln BID EXT 01/22/17 09:00 02/21/17 08:59 01/24/17 08:55 1 APPLN Cephalexin Monohydrate (Keflex Cap) 500 mg QID PO 01/23/17 13:00 03/06/17 12:59 01/24/17 12:54 500 MG Morphine Sulfate (MoRPHine SULFATE INJ) 4 mg Q4H PRN IV 01/23/17 17:30 02/06/17 17:29 01/24/17 12:53 4 MG Furosemide (Lasix Tab) 40 mg BID17 PO 01/24/17 09:00 02/23/17 08:59 01/24/17 08:54 40 MG Objective Vital Signs Date Time Temp Pulse Resp B/P Pulse Ox O2 Delivery O2 Flow Rate FiO2 01/24/17 08:00 Nasal Cannula 2.0 01/24/17 07:26 36.7 62 20 119/89 97 01/24/17 01:11 36.7 81 20 151/73 92 Room Air 01/24/17 00:00 Room Air 01/23/17 21:25 76 147/78 01/23/17 16:18 36.6 73 18 128/66 95 Room Air 01/23/17 16:00 Room Air Physical Exam General Appearance: WD/WN, no apparent distress Eyes: normal inspection, sclerae normal ENT: normal ENT inspection, pharynx normal Neck: supple, no adenopathy, trachea midline Respiratory/Chest: chest non-tender, lungs clear, no respiratory distress, + decreased breath sounds Cardiovascular: regular rate, rhythm, no gallop, no murmur Abdomen: normal bowel sounds, non tender, soft, no organomegaly Extremities: non-tender, no calf tenderness Neurologic/Psychiatric: alert, oriented x 3 Skin: normal color, warm/dry, no rash Lymphatic: no adenopathy Laboratory Results Last 24 Hours Test 01/23/17 16:29 01/23/17 20:48 01/24/17 05:15 01/24/17 07:19 Bedside Glucose 192 mg/dl 180 mg/dl 98 mg/dl White Blood Count 11.09 K/uL Red Blood Count 3.23 M/uL Hemoglobin 9.1 g/dL Hematocrit 28.1 % Mean Corpuscular Volume 87.0 fL Mean Corpuscular Hemoglobin 28.2 pg Mean Corpuscular Hemoglobin Concent 32.4 g/dl RDW Standard Deviation 47.5 fL RDW Coefficient of Variation 15.1 % Platelet Count 314 K/uL Mean Platelet Volume 8.8 fL Sodium Level 143 mmol/L Potassium Level 4.4 mmol/L Chloride Level 110 mmol/L Carbon Dioxide Level 26 mmol/L Anion Gap 7.0 mmol/L Blood Urea Nitrogen 36 mg/dl Creatinine 1.20 mg/dl Est Creatinine Clear Calc Drug Dose 78.9 ml/min Estimated GFR () 72.6 Estimated GFR (Non- 62.6 BUN/Creatinine Ratio 30.2 Random Glucose 98 mg/dl Calcium Level 8.7 mg/dl Magnesium Level 2.6 mg/dl Test 01/24/17 11:12 Bedside Glucose 116 mg/dl Assessment and Plan 66-year-old male with diabetes mellitus, previous right hand infection status post amputation of fingers, now with nonhealing wound with purulent drainage, now growing Staph aureus (MSSA). Will continue oral cephalexin, likely 2 week course.. Will follow.
[2017-01-24 15:10] VITALS: BP 143/80; PULSE 74; TEMP 36.7; O2SAT 92
--- NOTE | 2017-01-24 21:21 | Progress Note ---
Medicine Progress Note Date & Time of Visit: January 24, 2017 at 16:28. Subjective 66 yo M with h/o recent admission for septic shock 2/2 finger infection presents with dyspnea 2/2 hemothorax on the R 2/2 trauma two weeks ago. He is s /p thoracentesis with 1500cc out initially, PATRICIA which has resolved. PleurX catheter remains and CT surg team to decide on final plan with that in next 1-2 days. -tpA again added through Pleurx catheter -PATRICIA resolved -declined PT but then later asked why no one was getting him up and moving -needs rehab placement when chest tube removed -tolerating PO -BM Objective Last 8 Hrs Date Time Temp Pulse Resp B/P Pulse Ox O2 Delivery O2 Flow Rate FiO2 01/24/17 15:10 36.7 74 18 143/80 92 Room Air Physical Exam: GEN: WNWD, in no acute distress, alert and appropriate, not ill-appearing. HEENT: NC/AT, pupils are equal and round, normal sclerae/conjunctivae, MMM CARDIO: reg rate, S1/2 heard without m/g/r LUNGS: CTA bilaterally, no crackles, rales or wheezes, good diaphragmatic excursion, chest wall TTP in anterior chest on the R. Dressing in place that is c/d/ BACK: Pleurx catheter in place and taped against body-blood tinged drainage is present. Dressing is dry and intact. ABD: soft, non-tender, non-distended, no rebound or guarding, +BS EXTREMITY: Both hands have multiple finger amputations. R hand: purulent drainage over recent surgical wound which is closed, no surrounding erythema, sensation decrease in the hand. LLE BTK amputation-skin clear and leg is warm and well-perfused. RLE -multiple closed scab wounds present on leg, DP2+ and warm and well perfused. Sensation low in this area. Sensation loss in combs distribution on R hand NEURO: CN 2-12 grossly intact aside from sensation loss as above. MUSC: slow to move 2/2 pain, moves all extremities equally. SKIN: warm and dry and wounds as above. There is a wound on his posterior neck from recent ICU stay and strap used to hold ventilator in place. Laboratory Results: 01/24/17 05:15 01/24/17 05:15 Test 01/19/17 05:30 01/19/17 05:37 01/19/17 08:40 01/19/17 08:42 Prothrombin Time 10.5 SECONDS (9.0-12.0) Prothromb Time International Ratio 1.0 (0.9-1.1) Total Bilirubin 0.4 mg/dl (0.2-1) Direct Bilirubin 0.1 mg/dl (0-0.2) Aspartate Amino Transf (AST/SGOT) 10 U/L (15-37) Alanine Aminotransferase (ALT/SGPT) 18 U/L (12-78) Alkaline Phosphatase 127 U/L (45-117) Total Protein 6.9 gm/dl (6.4-8.2) Albumin 3.2 gm/dl (3.4-5.0) Beta-Hydroxybutyric Acid 1.28 mg/dL (0.2-2.81) Thyroid Stimulating Hormone (TSH) 5.110 uIu/ml (0.300-4.500) Bedside Troponin I 0.040 ng/ml (0-0.045) Pleural Fluid Source RIGHT LUNG Pleural Fluid Color RED Pleural Fluid Appearance BLOODY Pleural Fluid WBC 2053 /uL Pleural Fluid RBC [id number] /uL Pleural Fluid pH 7.21 (7.3-7.4) Pleural Fluid Polynuclear WBCs % 36.8 % Pleural Fluid Mononuclear WBCs % 63.2 % Pleural Fluid Total Protein 5.4 g/dl Pleural Fluid LDH 334 IU Pleural Fluid Glucose 199 mg/dl Pleural Fluid Amylase 21 U/L Pleural Fluid Cholesterol 321 mg/dL Bedside Blood Gas pH (LAB) 7.25 (7.35-7.45) Bedside Blood Gas pCO2 (LAB) 56 mmHg (35-46) Bedside Blood Gas pO2 (LAB) < 32 mmHg (80-95) Bedside Blood Gas HCO3 (LAB) 25 meq/L (19-24) Bedside Blood Gas Total CO2 26 mEq/l (24-31) Bedside Blood Gas Base Excess (LAB) -3.0 meq/L (-9-1.8) Bedside Blood Gas O2 Saturation 35.0 % (90-95) Test 01/19/17 18:30 01/20/17 00:00 01/20/17 05:38 01/21/17 07:33 Urine Color DK YELLOW Urine Appearance CLEAR (CLEAR) Urine pH 5.0 (4.5-7.5) Urine Specific [place] 1.029 (1.000-1.030) Urine Protein NEG (NEG) Urine Glucose (UA) 1+ (NEG) Urine Ketones NEG (NEG) Urine Occult Blood NEG (NEG) Urine Nitrite NEG (NEG) Urine Bilirubin NEG (NEG) Urine Urobilinogen NEG (NEG) Urine Leukocyte Esterase NEG (NEG) Urine Random Creatinine 260.0 mg/dl Urine Random Sodium 5 mEq/L Estimated Average Glucose 189 mg/dl Hemoglobin A1c 8.2 % (4.5-5.6) Red Blood Cell Morphology Unremarkable Test 01/22/17 06:20 01/22/17 11:05 01/23/17 07:25 01/24/17 05:15 Immature Granulocyte % (Auto) 1.7 % White Blood Count 9.69 K/uL (4.8-10.8) Red Blood Count 3.22 M/uL (4.7-6.1) 3.23 M/uL (4.7-6.1) Hemoglobin 9.3 g/dL (14.0-18.0) Hematocrit 27.4 % (42-52) Mean Corpuscular Volume 85.1 fL (80-100) 87.0 fL (80-100) Mean Corpuscular Hemoglobin 28.9 pg (25-34) 28.2 pg (25-34) Mean Corpuscular Hemoglobin Concent 33.9 g/dl (32-36) 32.4 g/dl (32-36) Platelet Count 248 K/uL (130-400) Mean Platelet Volume 9.2 fL (7.4-10.4) 8.8 fL (7.4-10.4) Neutrophils (%) (Auto) 74.7 % Lymphocytes (%) (Auto) 14.2 % Monocytes (%) (Auto) 5.9 % Eosinophils (%) (Auto) 3.2 % Basophils (%) (Auto) 0.3 % Neutrophils # (Auto) 7.24 K/uL (1.4-6.5) Lymphocytes # (Auto) 1.38 K/uL (1.2-3.4) Monocytes # (Auto) 0.57 K/uL (0.11-0.59) Eosinophils # (Auto) 0.31 K/uL (0-0.5) Basophils # (Auto) 0.03 K/uL (0-0.2) Immature Granulocyte # (Auto) 0.16 K/uL (0.00-0.02) Erythrocyte Sedimentation Rate 51 mm/hr (0-14) C-Reactive Protein 19.40 mg/dl (0-0.29) Vitamin B12 Level 871 pg/mL (211-911) Folate 15.45 ng/mL (>5.38) Serum Immunofixation SEE NOTE Rapid Plasma Reagin NONREACTIVE (NONREACT) Random Vancomycin Level 17.8 mcg/ml RDW Standard Deviation 47.5 fL (36.4-46.3) RDW Coefficient of Variation 15.1 % (11.5-14.5) Anion Gap 7.0 mmol/L (3-11) Est Creatinine Clear Calc Drug Dose 78.9 ml/min Estimated GFR () 72.6 Estimated GFR (Non- 62.6 BUN/Creatinine Ratio 30.2 (10-20) Calcium Level 8.7 mg/dl (8.5-10.1) Magnesium Level 2.6 mg/dl (1.8-2.4) Test 01/24/17 20:13 Bedside Glucose 233 mg/dl (70-99) Date/Time Source Procedure Growth Status 01/20/17 12:30 Blood Blood Culture - Preliminary NO GROWTH TO DATE. Resulted 01/19/17 18:30 Urine , Clean Catch Urine Culture - Final NO GROWTH - LESS THAN 1,000 COLONIES/ML Complete 01/20/17 00:00 Drainage - Surface Hand Right Gram Stain - Final Complete 01/20/17 00:00 Wound Culture - Final Staphylococcus Aureus Staphylococcus Aureus#2 Complete Last 24 Hours Test 01/23/17 16:29 01/23/17 20:48 01/24/17 05:15 01/24/17 07:19 Bedside Glucose 192 mg/dl 180 mg/dl 98 mg/dl White Blood Count 11.09 K/uL Red Blood Count 3.23 M/uL Hemoglobin 9.1 g/dL Hematocrit 28.1 % Mean Corpuscular Volume 87.0 fL Mean Corpuscular Hemoglobin 28.2 pg Mean Corpuscular Hemoglobin Concent 32.4 g/dl RDW Standard Deviation 47.5 fL RDW Coefficient of Variation 15.1 % Platelet Count 314 K/uL Mean Platelet Volume 8.8 fL Sodium Level 143 mmol/L Potassium Level 4.4 mmol/L Chloride Level 110 mmol/L Carbon Dioxide Level 26 mmol/L Anion Gap 7.0 mmol/L Blood Urea Nitrogen 36 mg/dl Creatinine 1.20 mg/dl Est Creatinine Clear Calc Drug Dose 78.9 ml/min Estimated GFR () 72.6 Estimated GFR (Non- 62.6 BUN/Creatinine Ratio 30.2 Random Glucose 98 mg/dl Calcium Level 8.7 mg/dl Magnesium Level 2.6 mg/dl Test 01/24/17 11:12 Bedside Glucose 116 mg/dl Assessment & Plan 66 yo M with h/o recent admission for septic shock 2/2 finger infection presents with dyspnea 2/2 hemothorax on the R 2/2 trauma two weeks ago. He is s /p thoracentesis with 1500cc out initially, PATRICIA which has resolved. PleurX catheter remains and CT surg team to decide on final plan with that in next 1-2 days. 1. Dyspnea and chest pain 2/2 R hemothorax with displaced rib fractures-s/p thoracentesis on 01/19 with Pleurx catheter placement in the ER by CT surg team. 1500ml out initially and 350 out overnight. Subsequent min output daily. Supportive care with pain control. Repeat CXR improved and breathing reported to be better per patient. 01/21: PleurX catheter output was 200cc overnight. Continues to drain blood- tinged fluid. Pain from rib fractures is controlled and breathing has improved ; no hypoxia. Cont incentive spirometry. 01/22: PleurX 50 cc out. Pain with rib fractures is stable. 01/23: tPA administered through PleurX, 100c return per nurse. Pt is having significant pain with no shortness of breath. Morphine IV prn started for additional pain control. 01/24: in alot more pain today, morphine prn. Pt needs to get up and ambulate. Nurses encouraged to ambulate pt; prosthesis is at bedside. 2. Rib fractures-multiple anterior rib fractures-supportive care as above. 3. R hand wound-patient reports sensation loss in R hand since amputation 6-8 weeks ago in a glove distribution. He was admitted for septic source with a finger infection as the source. It appears the wound is closed but there is purulent material over the area. Pt denies any pain, fevers, or chills. This patient appears to have very poor wound care with a drainage-soaked bandage that is old-appearing. Wound care consulted. Will xray the hand to look for soft tissue gas or presence of osteo. Will obtain ESR and CRP and trend this-- of note, no leukocytosis is present. Will cover with Vanc empirically-- although prior cultures from this wound grew MSSA he has a h/o MRSA and with recent hospitalization has increased risk for this. Will consult Ortho-hand for evaluation. 01/21: still has glove-distribution numbness that is present. Wound is closed and no longer draining. Cont empiric abx until we can rule out osteomyelitis in setting of elevated CRP, recent operation in this area and known poor wound care post-op in an uncontrolled diabetic. Awaiting ID consult. Prefer to get contrasted MRI study but cannot obtain until kidney function improves. Ortho aware of wound and 4th metacarpal fracture-appreciate recs. 01/22: non-operative per Ortho, stable from their perspective 01/23: wound growing MSSA, Vanc changed to Cephalexin per ID. Will monitor progress. Of note he remains afebrile and blood cultures are negative. 4. 4th metacarpal fracture in had 2/2 fall -per Ortho as above. 5. Anemia-acute, likely 2/2 acute blood loss in addition to dilution effect from IVF overnight given for AUR. Initially 10/, dropped to 7.8/23 overnight. Catheter still draining some blood-tinged fluid so expect a further drop and patient is having significant fatigue. Plan to transfuse two units at this time. 01/21: output from chest tube has slowed. H/H improved to 8.7/25. Trend CBC in am. 01/22: HH is stable at 9.3/27.4 6. PATRICIA in setting of CKD IV-Creat at baseline. Cont home meds, renally dose meds and avoid nephrotoxic substances. Etiology is likely acute urinary retention yesterday. Fluid bolus given overnight and Newby placed yesterday. Creat up to 2.5 today. Cont Newby for now and trend PRP in am. Pt reports no issues at home RE: BPH symptoms, so will ensure adequately hydrated prior to Newyb removal trial without starting tamsulosin. 01/21: Urine Na was 5 in setting of recent Lasix use, FeNa <0.1% -->severe dehydration present. Cont IVF throughout the day today and watch for improvement in the morning. Cont Newby for now for accurate I/O assessment. Will consult Nephro if no improvement tomorrow. Avoiding contrasted studies at this time. 01/22: some improvement of creat from 2.7 to 2.4 with IVF, but will stop now out of concern for third spacing and overload in setting of cardiomyopathy. will repeat creat in am. 01/23: resolved to baseline 1.6. With creat just improved, will wait one more day and start Lasix at 50% of home dose. Cont to hold metolazone. 01/24: Creat 1.2--increased Lasix to full home dose 80mg BID, hold metolazone. 7. Acute urinary retention-poss 2/2 BPH but patient denies symptoms of this. Poss also 2/2 significant dehydration. Expect to be fine once we rehydrate him and remove the Newby. 01/22: urine still appears darker in color despite IVF. Will d/c Newby at this time as kidney function is improved. 8. DMII longstanding with known complications of neuropathy and vasculopathy- cont ISS/Lantus with pharmacy consult for assist. per Pharm recs. 9. Idiopathic dilated cardiomyopathy with severe LV dysfunction (Dx 2000): will monitor clinically and check daily weights post-procedure. Appears euvolemic at this time. Cont home meds aside form ASA in setting of hemothorax and PATRICIA. Lasix restarted and increasing to full dose of 80mg PO BID tomorrow. 10. Superimposed CAD s/p stent placement for high grade LAD stenosis-in setting of prior stents, cont ASA. 11. Hypothyroidism-cont home Synthroid, TSH slightly elevated to 5. Defer to outpatient PCP for adjustment unless fatigue doesn't improve with blood administration. 01/21: Pt feels better today after blood transfusion yesterday 12. Gout-no acute flares, cont allopurinol 13. Dysequilibrium- likely multifactorial etiology in the setting of diabetic neuropathy with vasculopathy and likely autonomic dysfunction. He has multiple amputations contributing to balance loss in the setting of possible hypoglycemic episodes as described. He also has a h/o recent trauma to the back of his head after feeling unsteady and falling on the concrete outside of his house. He had ? loss of consciousness at that time. CT head on admission was negative for any acute stroke, and clinically this is not apparent. However , source of vertigo/dysequilibrium in the setting of trauma is uncertain. Enlisted the help of Neurology. Will obtain a non-contrast MRI head and MRA neck to ensure no issues with posterior circulation. Contrasted study is contraindicated in the setting of PATRICIA. 01/22: per Neuro this is 2/2 diabetic autonopathy; other reversible possibilities are being considered, however. Full Code Diet-2gm Na restric. ADA DVT proph-hold in setting of bleeding and recent procedure, consider starting when H/H stable and OK with CT surg team. Dispo-cont to monitor pt on telemetry Cristina Durbin DO [facility] Hospitalist Consultants: Neuro, ID, Ortho, CT surg Current Inpatient Medications: Current Inpatient Medications Medications (Trade) Dose Ordered Sig/Ifeanyi Route Start Time Stop Time Status Last Admin Dose Admin Glucose (Glucose 40% Gel) 15-30 GRAMS 15 GRAMS... UD PRN PO 01/19/17 08:15 02/18/17 08:14 Glucose (Glucose Chew Tab) 4-8 Tablets 4 Tabl... UD PRN PO 01/19/17 08:15 02/18/17 08:14 Dextrose (Dextrose 50% 50ML Syringe) 25-50ML OF 50% DW IV FOR... UD PRN IV 01/19/17 08:15 02/18/17 08:14 Glucagon (Glucagon Inj) 1 mg UD PRN SQ 01/19/17 08:15 02/18/17 08:14 Miscellaneous Information (Consult Glycemic Management Pharmacy) 1 ea UD PRN N/A 01/19/17 08:34 02/18/17 08:33 Ondansetron HCl (Zofran Inj) 4 mg Q6H PRN IV 01/19/17 08:15 02/18/17 08:14 Polyethylene (Miralax Powder Packet) 17 gm DAILY PRN PO 01/19/17 08:15 02/18/17 08:14 01/21/17 12:57 17 GM Allopurinol (Zyloprim Tab) 300 mg DAILY PO 01/20/17 09:00 02/19/17 08:59 01/24/17 08:54 300 MG Atorvastatin Calcium (Lipitor Tab) 80 mg DAILY PO 01/20/17 09:00 02/19/17 08:59 01/24/17 08:54 80 MG Isosorbide Mononitrate (Imdur Ext Rel Tab) 15 mg QAM PO 01/20/17 09:00 02/19/17 08:59 01/24/17 08:54 15 MG Levothyroxine Sodium (Synthroid Tab) 50 mcg DAILYBB PO 01/20/17 06:00 02/19/17 05:59 01/24/17 05:44 50 MCG Losartan Potassium (coZAAR TAB) 25 mg DAILY PO 01/20/17 09:00 02/19/17 08:59 01/24/17 08:55 25 MG Metoprolol Succinate (Toprol Xl Tab) 25 mg BID PO 01/19/17 21:00 02/18/17 20:59 01/24/17 08:53 25 MG Sertraline HCl (Zoloft Tab) 100 mg DAILY PO 01/20/17 09:00 02/19/17 08:59 01/24/17 08:55 100 MG Aspirin (Ecotrin Tab) 81 mg DAILY PO 01/20/17 09:00 02/19/17 08:59 01/24/17 08:54 81 MG Insulin Aspart (novoLOG ASPART) SLIDING SCALE If C... ACHS SC 01/20/17 07:00 02/19/17 06:59 01/24/17 12:16 14 UNITS Insulin Detemir (Levemir Flexpen/ FlexTouch) BID SC 01/19/17 21:00 02/18/17 20:59 01/24/17 09:00 15 UNIT Acetaminophen (Tylenol Tab) 1,000 mg Q8 PO 01/19/17 14:00 02/18/17 13:59 Future hold 01/24/17 12:56 1,000 MG Tramadol HCl (Ultram Tab) 50 mg Q8H PRN PO 01/19/17 12:57 02/18/17 12:56 01/20/17 19:45 50 MG Multi-Ingredient Ointment (Eucerin Unscented Cr) 1 appln BID EXT 01/22/17 09:00 02/21/17 08:59 01/24/17 08:55 1 APPLN Cephalexin Monohydrate (Keflex Cap) 500 mg QID PO 01/23/17 13:00 03/06/17 12:59 01/24/17 12:54 500 MG Morphine Sulfate (MoRPHine SULFATE INJ) 4 mg Q4H PRN IV 01/23/17 17:30 02/06/17 17:29 01/24/17 12:53 4 MG Furosemide (Lasix Tab) 40 mg BID17 PO 01/24/17 09:00 02/23/17 08:59 01/24/17 08:54 40 MG
[2017-01-24 22:15] VITALS: BP 123/67; PULSE 86
[2017-01-25] VITALS: O2SAT 92
[2017-01-25 00:10] VITALS: BP 134/70; PULSE 88; TEMP 36.4; O2SAT 91
[2017-01-25] MEDS: LEVOTHYROXINE 50 MCG TAB PO SCH (06:12)
[2017-01-25] MEDS: ACETAMINOPHEN 500 MG TAB PO SCH ×3 (06:14→21:59)
[2017-01-25 06:40] LABS: HEMATOCRIT 27.2 % (42-52); MEAN CELL VOLUME 87.7 fL (80-100); MEAN CORPUSCULAR HEMOGLOBIN 29.4 pg (25-34); MEAN CORPUSCULAR HGB CONC 33.5 g/dl (32-36); MEAN PLATELET VOLUME 8.8 fL (7.4-10.4); PLATELET COUNT 295 K/uL (130-400); WHITE BLOOD COUNT 10.35 K/uL (4.8-10.8)
[2017-01-25 07:11] LABS: BUN/CREATININE RATIO 32.7 (10-20); CALCIUM 8.5 mg/dl (8.5-10.1); CREATININE 1.1 mg/dl (0.60-1.40); POTASSIUM 4.3 mmol/L (3.5-5.1)
--- NOTE | 2017-01-25 07:48 | DIAGNOSTIC IMAGING REPORT ---
CHEST ONE VIEW PORTABLE CLINICAL HISTORY: effusion dyspnea COMPARISON STUDY: 01/24/2017 FINDINGS: Improved aeration left base. Unchanging parenchymal infiltrate right base. Right basilar drainage catheter in position. Permanent bipolar cardiac pacer. IMPRESSION: Improved aeration left base. Right basilar drainage catheter with unchanging parenchymal infiltrative change right base. Electronically signed by: Tyrone Shi M.D. 01/25/2017 7:46 AM Dictated Date/Time: 01/25/2017 7:41 AM
[2017-01-25 07:56] VITALS: BP 143/75; PULSE 88; TEMP 36.5; O2SAT 95
[2017-01-25] MEDS: EUCERIN CR 120 GM JAR EXT SCH ×2 (08:13→21:57)
[2017-01-25] MEDS: LOSARTAN POTASSIUM 25 MG TAB PO SCH (08:14)
[2017-01-25] MEDS: ISOSORBIDE MONONITRATE 30 MG TABCR PO SCH (08:14)
[2017-01-25] MEDS: ALLOPURINOL 300 MG TAB PO SCH (08:14)
[2017-01-25] MEDS: ASPIRIN 81 MG ECTAB PO SCH (08:14)
[2017-01-25] MEDS: CEPHALEXIN MONOHYDRATE 500 MG CAP PO SCH ×4 (08:14→21:58)
[2017-01-25] MEDS: ATORVASTATIN 40 MG TAB PO SCH (08:14)
[2017-01-25] MEDS: METOPROLOL SUCC 25MG EXT REL TAB PO SCH ×2 (08:15→22:00)
[2017-01-25] MEDS: SERTRALINE HCL 50 MG TAB PO SCH (08:15)
[2017-01-25] MEDS: INSULIN ASPART 100 UNITS/ML 3 ML PEN SC SCH ×5 (08:18→22:02)
[2017-01-25] MEDS: INSULIN DETEMIR FLEXPEN/FLEX TOUCH 100 UNITS/ML 3ML SC SCH ×2 (08:19→22:01)
[2017-01-25] MEDS: FUROSEMIDE 80 MG TAB PO SCH ×2 (08:37→17:23)
[2017-01-25] MEDS: POLYETHYLENE (MIRALAX) 17 GM PACK PO PRN (08:37)
[2017-01-25 10:14] VITALS: O2SAT 94
--- NOTE | 2017-01-25 13:36 | Progress Note ---
Internal Med Progress Note Date of Service: January 25, 2017. Provider Documentation: SUBJECTIVE: Seen and examined at bedside. States feeling well. Denies any chest pain, SOB. Offers no complaints. No new complaints. OBJECTIVE: Vital Signs-as noted below GEN: WN/WD, no acute distress. HEENT: NC/AT, EOMI CARDIO: S1, S2, No murmur LUNGS: Normal breath sounds, CTA bilaterally BACK: Pleurx catheter in place ABD: soft, non-tender, non-distended, +BS EXTREMITY: + multiple finger amputations. LLE BKA. RLE: multiple wounds on leg in bandage NEURO: Grossly no focal deficits. SKIN:Multiple wounds as above. Lab data as noted below. ASSESSMENT & PLAN: Patient is a 66 yr male with h/o recent admission for septic shock 2/2 finger infection presents with dyspnea secondary to R hemothorax secondary to trauma 2 weeks ago. He is s/p thoracentesis with 1500cc out initially. Also had PATRICIA which resolved. PleurX catheter in place. Dyspnea and Chest pain secondary to R hemothorax with displaced rib fractures: S /P fall 2 weeks ago s/p thoracentesis on 01/19 with Pleurx catheter placement CT surgery is following Continue supportive care Hb stable Continue incentive spirometry. S/P tPA administered through PleurX on 01/23 Multiple Rib fractures: supportive care as above. R hand wound: Reports sensation loss in R hand since amputation 6-8 weeks ago in a glove distribution. Continue wound care S/P Vancomycin Wound culture: MSSA Continue Cephalexin per ID: may need for 2 weeks Ortho evaluated as well. 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 hold metolazone for now Acute urinary retention: Likely secondary to BPH and significant dehydration Resolved DM II: H/O neuropathy and vasculopathy continue ISS, Lantus Appreciate pharmacy consult help Idiopathic dilated cardiomyopathy with severe LV dysfunction (Dx 2000): Appears euvolemic. Cont home meds. Hold ASA in setting of hemothorax Lasix resumed. H/O CAD s/p stent placement for high grade LAD stenosis ASA on hold Hypothyroidism: continue Synthroid Gout: continue allopurinol Dysequilibrium: multifactorial: In setting of diabetic neuropathy with vasculopathy and likely autonomic dysfunction Needs rehab placement CT head:No acute intracranial findings Code Status: Full Code DVT Px: hold in setting of bleeding Disposition: Plan to discharge to rehab when stable Vital Signs: Date Time Temp Pulse Resp B/P Pulse Ox O2 Delivery O2 Flow Rate FiO2 01/25/17 10:14 94 01/25/17 08:00 Room Air 01/25/17 07:56 36.5 88 18 143/75 95 Room Air 01/25/17 00:10 36.4 88 20 134/70 91 Room Air 01/25/17 00:00 92 Room Air 01/24/17 22:15 86 123/67 01/24/17 16:00 Room Air 01/24/17 15:10 36.7 74 18 143/80 92 Room Air Lab Results: Results Past 24 Hours Test 01/24/17 16:49 01/24/17 20:13 01/25/17 05:55 01/25/17 07:39 Range/Units Bedside Glucose 130 233 243 70-99 mg/dl White Blood Count 10.35 4.8-10.8 K/uL Red Blood Count 3.10 4.7-6.1 M/uL Hemoglobin 9.1 14.0-18.0 g/dL Hematocrit 27.2 42-52 % Mean Corpuscular Volume 87.7 80-100 fL Mean Corpuscular Hemoglobin 29.4 25-34 pg Mean Corpuscular Hemoglobin Concent 33.5 32-36 g/dl RDW Standard Deviation 48.9 36.4-46.3 fL RDW Coefficient of Variation 15.3 11.5-14.5 % Platelet Count 295 130-400 K/uL Mean Platelet Volume 8.8 7.4-10.4 fL Sodium Level 142 136-145 mmol/L Potassium Level 4.3 3.5-5.1 mmol/L Chloride Level 109 98-107 mmol/L Carbon Dioxide Level 25 21-32 mmol/L Anion Gap 8.0 3-11 mmol/L Blood Urea Nitrogen 36 7-18 mg/dl Creatinine 1.10 0.60-1.40 mg/dl Est Creatinine Clear Calc Drug Dose 86.0 ml/min Estimated GFR () 80.6 Estimated GFR (Non- 69.6 BUN/Creatinine Ratio 32.7 10-20 Random Glucose 210 70-99 mg/dl Calcium Level 8.5 8.5-10.1 mg/dl Test 01/25/17 11:25 Range/Units Bedside Glucose 236 70-99 mg/dl
--- NOTE | 2017-01-25 13:48 | SURGERY PROGRESS NOTE ---
DATE: 01/25/2017 DATE: 01/25/2017. Mr. Koroma was seen today. He looks better. We drained 140 mL yesterday but 600 mL today and his x-ray looks better. On room air he has 95% saturations. His hemoglobin has not dropped. I believe the thrombolytics were helpful in breaking up this old blood. At this point, I would like to see how he does without it for the next day or so. His x-ray looks good enough to where I do not think anything else will need to be done such as a thoracoscopy or evacuation of hematoma. However, I may want to inject some more tissue plasminogen activator into his chest depending on how he looks in the next few days.
--- NOTE | 2017-01-25 13:52 | Pharmacy Progress Note ---
Glycemic Control: Progress Nt Date of Service January 25, 2017. Scope Glycemic Pharmacist consulted by Dr Durbin on 01/19/17 for glycemic control and to write orders per [facility] inpatient glycemic control protocol. Objective Accuchecks BSG (last 24hrs): Test 01/24/17 16:49 01/24/17 20:13 01/25/17 05:55 01/25/17 07:39 Bedside Glucose 130 mg/dl (70-99) 233 mg/dl (70-99) 243 mg/dl (70-99) Random Glucose 210 mg/dl (70-99) Test 01/25/17 11:25 Bedside Glucose 236 mg/dl (70-99) Laboratory Data (last 24hrs) Test 01/25/17 05:55 Anion Gap 8.0 mmol/L BUN/Creatinine Ratio 32.7 Blood Urea Nitrogen 36 mg/dl Creatinine 1.10 mg/dl Potassium Level 4.3 mmol/L Sodium Level 142 mmol/L White Blood Count 10.35 K/uL HbA1c: Test 01/20/17 05:38 Hemoglobin A1c 8.2 % (4.5-5.6) H Recent Pertinent Medications Outpatient Anti-diabetic Regimen: * Levemir 80 units BID plus Regular insulin 3 units BIDM; glyburide 5 mg PO daily The patient is currently receiving: * Basal insulin: Lantus 15 units qAM, 25 units qPM * Correctional Insulin: Novolog Correction per scale ACHS Goal Range: Low 110 mg/dL - High 140 mg/dL Correction Factor: 12 mg/dL/unit * Prandial insulin: Per carb ratio of 1 unit per 4 grams CHO consumed Risk Factors for Insulin Resistance: * Infection: R finger wound infection (vancomycin IV --> Keflex PO) * Recent Surgery: POD 6 for Pleurex cath due to hemothorax * Diet: type 2 diabetic diet Assessment & Plan ASSESSMENT: * ADA & AACE recommend a goal blood sugar range 140-180 mg/dl for the majority of critically ill & non-critically ill patients. However, more stringent targets may be selected in individual cases. Will utilize more stringent goal of 110-140mg/dl based on patient age & comorbidities. Additionally, tighter glycemic control is warranted to facilitate wound/infection healing. * Mr Koroma was admitted 01/19/17 for a fall with pleural effusion and rib fractures. 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 During his hospital stay the patient has received around 80-90 units of insulin per day. His previous hospital stay he required ~ 70 units/day. 01/25/17 * Mr. Mcbride received 71 units yesterday (compared to 96 and 95 units the previous days) with blood sugars ranging from 98 mg/dL- 233 mg/dL. He received 40 units of basal yesterday, which is 10 units less than previous days. I correlate his elevated BSGs this am with decrease in basal insulin * I will forgo basal insulin dose scale based on BSG parameters and start a scheduled dose of Lantus. * Bolus insulin will be slightly tightened for the remainder of today due to hyperglycemia * re-evaluate bolus parameters in am . PLAN FOR INPATIENT GLYCEMIC CONTROL: * CHANGING Lantus to 25 units SQ BID * TIGHTENING correction factor to 10 mg/dl/unit * TIGHTENING carb ratio to 1 unit per 3 grams CHO consumed * Continuing goal range of Low 110 mg/dL - High 140 mg/dL RECOMMENDATIONS FOR DISCHARGE: * Mr Koroma appears to have adequate control of his blood sugars for his age and co-morbidities. He may not be a candidate for glyburide due to his changing kidney function and his age. This can contribute to prolonged hypoglycemia. * Please note that the plan above was derived based on current level of insulin resistance and hospital stress. These recommendations are appropriate for inpatient admission only. Plan of care upon discharge will need to be reassessed to avoid potential outpatient hypo/hyperglycemia. Thank you.
--- NOTE | 2017-01-25 13:54 | Infectious Disease Progress Nt ---
Progress Note Date of Service January 25, 2017. Subjective Pt evaluation today including: conversation w/ patient, physical exam, chart review, lab review, review of studies, conversation w/ ent consultant, review of inpatient medication list No new complaints. Pain controlled. remains afebrile. No increased SOB. All Other Systems: Reviewed and Negative Medications Current Inpatient Medications Medications (Trade) Dose Ordered Sig/Ifeanyi Route Start Time Stop Time Status Last Admin Dose Admin Glucose (Glucose 40% Gel) 15-30 GRAMS 15 GRAMS... UD PRN PO 01/19/17 08:15 02/18/17 08:14 Glucose (Glucose Chew Tab) 4-8 Tablets 4 Tabl... UD PRN PO 01/19/17 08:15 02/18/17 08:14 Dextrose (Dextrose 50% 50ML Syringe) 25-50ML OF 50% DW IV FOR... UD PRN IV 01/19/17 08:15 02/18/17 08:14 Glucagon (Glucagon Inj) 1 mg UD PRN SQ 01/19/17 08:15 02/18/17 08:14 Miscellaneous Information (Consult Glycemic Management Pharmacy) 1 ea UD PRN N/A 01/19/17 08:34 02/18/17 08:33 Ondansetron HCl (Zofran Inj) 4 mg Q6H PRN IV 01/19/17 08:15 02/18/17 08:14 Polyethylene (Miralax Powder Packet) 17 gm DAILY PRN PO 01/19/17 08:15 02/18/17 08:14 01/25/17 08:37 17 GM Allopurinol (Zyloprim Tab) 300 mg DAILY PO 01/20/17 09:00 02/19/17 08:59 01/25/17 08:14 300 MG Atorvastatin Calcium (Lipitor Tab) 80 mg DAILY PO 01/20/17 09:00 02/19/17 08:59 01/25/17 08:14 80 MG Isosorbide Mononitrate (Imdur Ext Rel Tab) 15 mg QAM PO 01/20/17 09:00 02/19/17 08:59 01/25/17 08:14 15 MG Levothyroxine Sodium (Synthroid Tab) 50 mcg DAILYBB PO 01/20/17 06:00 02/19/17 05:59 01/25/17 06:12 50 MCG Losartan Potassium (coZAAR TAB) 25 mg DAILY PO 01/20/17 09:00 02/19/17 08:59 01/25/17 08:14 25 MG Metoprolol Succinate (Toprol Xl Tab) 25 mg BID PO 01/19/17 21:00 02/18/17 20:59 01/25/17 08:15 25 MG Sertraline HCl (Zoloft Tab) 100 mg DAILY PO 01/20/17 09:00 02/19/17 08:59 01/25/17 08:15 100 MG Aspirin (Ecotrin Tab) 81 mg DAILY PO 01/20/17 09:00 02/19/17 08:59 01/25/17 08:14 81 MG Insulin Aspart (novoLOG ASPART) SLIDING SCALE If C... ACHS SC 01/20/17 07:00 02/19/17 06:59 01/25/17 12:24 19 UNITS Acetaminophen (Tylenol Tab) 1,000 mg Q8 PO 01/19/17 14:00 02/18/17 13:59 Future hold 01/25/17 06:14 1,000 MG Tramadol HCl (Ultram Tab) 50 mg Q8H PRN PO 01/19/17 12:57 02/18/17 12:56 01/20/17 19:45 50 MG Multi-Ingredient Ointment (Eucerin Unscented Cr) 1 appln BID EXT 01/22/17 09:00 02/21/17 08:59 01/25/17 08:13 1 APPLN Cephalexin Monohydrate (Keflex Cap) 500 mg QID PO 01/23/17 13:00 03/06/17 12:59 01/25/17 12:22 500 MG Morphine Sulfate (MoRPHine SULFATE INJ) 4 mg Q4H PRN IV 01/23/17 17:30 02/06/17 17:29 01/24/17 17:09 4 MG Furosemide (Lasix Tab) 80 mg BID17 PO 01/25/17 09:00 02/24/17 08:59 01/25/17 08:37 80 MG Insulin Detemir (Levemir Flexpen/ FlexTouch) 25 unit BID SC 01/25/17 21:00 02/24/17 20:59 Objective Vital Signs Date Time Temp Pulse Resp B/P Pulse Ox O2 Delivery O2 Flow Rate FiO2 01/25/17 10:14 94 01/25/17 08:00 Room Air 01/25/17 07:56 36.5 88 18 143/75 95 Room Air 01/25/17 00:10 36.4 88 20 134/70 91 Room Air 01/25/17 00:00 92 Room Air 01/24/17 22:15 86 123/67 01/24/17 16:00 Room Air 01/24/17 15:10 36.7 74 18 143/80 92 Room Air Physical Exam General Appearance: WD/WN, no apparent distress Eyes: normal inspection, sclerae normal ENT: normal ENT inspection, pharynx normal Neck: supple, no adenopathy, trachea midline Respiratory/Chest: lungs clear, normal breath sounds, no respiratory distress, + pertinent finding (right chest wall tenderness) Cardiovascular: regular rate, rhythm, no gallop, no murmur Abdomen: normal bowel sounds, non tender, soft, no organomegaly Extremities: non-tender, no calf tenderness Neurologic/Psychiatric: alert, oriented x 3 Skin: normal color, no rash Lymphatic: no adenopathy Laboratory Results Last 24 Hours Test 01/24/17 16:49 01/24/17 20:13 01/25/17 05:55 01/25/17 07:39 Bedside Glucose 130 mg/dl 233 mg/dl 243 mg/dl White Blood Count 10.35 K/uL Red Blood Count 3.10 M/uL Hemoglobin 9.1 g/dL Hematocrit 27.2 % Mean Corpuscular Volume 87.7 fL Mean Corpuscular Hemoglobin 29.4 pg Mean Corpuscular Hemoglobin Concent 33.5 g/dl RDW Standard Deviation 48.9 fL RDW Coefficient of Variation 15.3 % Platelet Count 295 K/uL Mean Platelet Volume 8.8 fL Sodium Level 142 mmol/L Potassium Level 4.3 mmol/L Chloride Level 109 mmol/L Carbon Dioxide Level 25 mmol/L Anion Gap 8.0 mmol/L Blood Urea Nitrogen 36 mg/dl Creatinine 1.10 mg/dl Est Creatinine Clear Calc Drug Dose 86.0 ml/min Estimated GFR () 80.6 Estimated GFR (Non- 69.6 BUN/Creatinine Ratio 32.7 Random Glucose 210 mg/dl Calcium Level 8.5 mg/dl Test 01/25/17 11:25 Bedside Glucose 236 mg/dl Patient Name: LUZ CRUZ Unit Number: [id number] Dictated: 01/25/17740 Transcribed: 01/25/17740 MS Printed Date/Time: [~ rep prt dt]/[~ rep prt tm] [~ rep ct labl] - [~ rep ct ivnm] [facility] Radiology Department [place] [id number] Dictated: 01/25/17740 Transcribed: 01/25/17740 MS Printed Date/Time: [~ rep prt dt]/[~ rep prt tm] [~ rep ct labl] - [~ rep ct ivnm] [~ rep ct add3]] CHEST ONE VIEW PORTABLE CLINICAL HISTORY: effusion dyspnea COMPARISON STUDY: 01/24/2017 FINDINGS: Improved aeration left base. Unchanging parenchymal infiltrate right base. Right basilar drainage catheter in position. Permanent bipolar cardiac pacer. IMPRESSION: Improved aeration left base. Right basilar drainage catheter with unchanging parenchymal infiltrative change right base. Electronically signed by: Tyrone Shi M.D. 01/25/2017 7:46 AM Dictated Date/Time: 01/25/2017 7:41 AM The status of this report is Signed. Draft = Not yet reviewed or approved by Radiologist. Signed = Reviewed and approved by Radiologist. <AttendingPhy>Alexandr Lane MD</AttendingPhy> <FamilyPhy>Kip Addison D.O.</FamilyPhy> <PrimaryPhy>Kip Addison D.O.</PrimaryPhy> <UnitNumber> [id number]</UnitNumber> <VisitNumber>[id number]</VisitNumber> <PatientName> LUZ CRUZ</PatientName> <DateOfBirth>1950</DateOfBirth> <Location> C.MS2[facility]</Location> <ServiceDate>01/19/17</ServiceDate> <MNE>ESINDI</MNE> < OrderingPhy>Christiano Costello</OrderingPhy> <OrderingPhyMNE>f rep ord dr olivares</OrderingPhyMNE> <DictatingPhyMNE>f rep dict dr olivares</DictatingPhyMNE> < CCListMNE>f rep ct marcelle</CCListMNE> <AdmittingPhyMNE>f pt admit dr olivares</ AdmittingPhyMNE> <AttendingPhyMNE>f pt attend dr olivares</AttendingPhyMNE> <ConsultingPhyMNE>f pt consult dr olivares</ConsultingPhyMNE> <FamilyPhyMNE>f pt fam dr olivares</FamilyPhyMNE> <OtherPhyMNE>f pt other dr olivares</OtherPhyMNE> < PrimaryPhyMNE>f pt prim care dr olivares</PrimaryPhyMNE> <ReferringPhyMNE>f pt referring dr olivares</ReferringPhyMNE> Assessment and Plan 66-year-old male with diabetes mellitus, previous right hand infection status post amputation of fingers, now with nonhealing wound with purulent drainage growing Staph aureus (MSSA). Will continue oral cephalexin, likely 2 week course.. Will follow.
[2017-01-25 14:57] VITALS: BP 125/63; PULSE 81; TEMP 36.6; O2SAT 94
[2017-01-25] MEDS ORDERED: VANCOMYCIN TROUGH ONE (15:30)
[2017-01-25 23:46] VITALS: BP 149/74; PULSE 92; TEMP 36.6; O2SAT 93
[2017-01-26] VITALS (7 sets, daily range): BP systolic 111–152; BP diastolic 61–69; PULSE 71–78; TEMP 36.7–36.9; O2SAT 92–96
[2017-01-26] MEDS: LEVOTHYROXINE 50 MCG TAB PO SCH (05:21)
[2017-01-26] MEDS: ACETAMINOPHEN 500 MG TAB PO SCH ×3 (05:22→21:18)
[2017-01-26 07:26] LABS: HEMATOCRIT 27.1 % (42-52)
[2017-01-26 07:54] LABS: CREATININE 1.4 mg/dl (0.60-1.40)
--- NOTE | 2017-01-26 08:44 | Surgery Progress Note ---
Subjective Date of Service: January 26, 2017. Pt. notes breathing has improved. Objective Vitals Date Time Temp Pulse Resp B/P Pulse Ox O2 Delivery O2 Flow Rate FiO2 01/26/17 08:01 36.9 78 18 115/61 96 Room Air 01/26/17 00:00 92 Room Air 01/25/17 23:46 36.6 92 18 149/74 93 Room Air 01/25/17 16:00 Room Air 01/25/17 14:57 36.6 81 19 125/63 94 Room Air 01/25/17 10:14 94 Physical Exam General: No distress CV: + RRR Pulmonary: + pertinent finding (decreased at right base although improved), No accessory muscle use, No respiratory distress Neurologic: + alert & oriented x 3 Radiology CXR today showed improved aeration at right base Drains / Tubes pleurex (right sided; drained for 40 cc this am ) Assessment & Plan 66 year old male with right pleural effusion -effusion likely the result of trauma/fall pt. suffered several days ago -pleurex placed (01/19/17) -cultures on pleural fluid remain (-) -cytology (-) for malignancy -TPA previously administered through pleurex: -improved drainage and CXR appearance noted -will continue daily drainage of pleurex and follow serial CXR: -future TPA instillation will be determined by CXR appearance
[2017-01-26] MEDS ORDERED: INSULIN DETEMIR FLEXPEN/FLEX TOUCH 100 UNITS/ML 3ML SC SCH (09:00)
[2017-01-26] MEDS: ISOSORBIDE MONONITRATE 30 MG TABCR PO SCH (09:49)
[2017-01-26] MEDS: ATORVASTATIN 40 MG TAB PO SCH (09:49)
[2017-01-26] MEDS: FUROSEMIDE 80 MG TAB PO SCH ×2 (09:49→17:01)
[2017-01-26] MEDS: ALLOPURINOL 300 MG TAB PO SCH (09:49)
[2017-01-26] MEDS: METOPROLOL SUCC 25MG EXT REL TAB PO SCH ×2 (09:49→21:18)
[2017-01-26] MEDS: ASPIRIN 81 MG ECTAB PO SCH (09:49)
[2017-01-26] MEDS: SERTRALINE HCL 50 MG TAB PO SCH (09:50)
[2017-01-26] MEDS: CEPHALEXIN MONOHYDRATE 500 MG CAP PO SCH ×4 (09:50→21:18)
[2017-01-26] MEDS: INSULIN ASPART 100 UNITS/ML 3 ML PEN SC SCH ×4 (10:01→21:21)
[2017-01-26] MEDS: EUCERIN CR 120 GM JAR EXT SCH ×2 (10:01→21:16)
[2017-01-26] MEDS: LOSARTAN POTASSIUM 25 MG TAB PO SCH (10:01)
--- NOTE | 2017-01-26 11:20 | Progress Note ---
Internal Med Progress Note Date of Service: January 26, 2017. Provider Documentation: SUBJECTIVE: Seen and examined at bedside. States having diarrhea. Denies any chest pain, abd pain, SOB. Offers no complaints. No new complaints. OBJECTIVE: Vital Signs-as noted below GEN: WN/WD, no acute distress. HEENT: NC/AT, EOMI CARDIO: S1, S2, No murmur LUNGS: Normal breath sounds, CTA bilaterally BACK: Pleurx catheter in place ABD: soft, non-tender, non-distended, +BS EXTREMITY: + multiple finger amputations. LLE BKA. RLE: multiple wounds on leg in bandage NEURO: Grossly no focal deficits. SKIN:Multiple wounds as above. Lab data as noted below. ASSESSMENT & PLAN: Patient is a 66 yr male with h/o recent admission for septic shock 2/2 finger infection presents with dyspnea secondary to R hemothorax secondary to trauma 2 weeks ago. He is s/p thoracentesis with 1500cc out initially. Also had PATRICIA which resolved. PleurX catheter in place. Dyspnea and Chest pain secondary to R hemothorax with displaced rib fractures: S /P fall 2 weeks ago s/p thoracentesis on 01/19 with Pleurx catheter placement CT surgery is following Continue supportive care Hb fairly stable Continue incentive spirometry. S/P tPA administered through PleurX on 01/23 Needs daily drainage of pleurex and serial CXR Further need for TPA to be determined Monitor Hb Diarrhea: Follow up stool studies Multiple Rib fractures: supportive care as above. R hand wound: Reports sensation loss in R hand since amputation 6-8 weeks ago in a glove distribution. Continue wound care S/P Vancomycin Wound culture: MSSA Continue Cephalexin per ID: may need for 2 weeks Ortho evaluated as well. 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 Cont home meds. Hold ASA in setting of hemothorax Lasix resumed. H/O CAD s/p stent placement for high grade LAD stenosis ASA on hold Hypothyroidism: continue Synthroid Gout: continue allopurinol Dysequilibrium: multifactorial: In setting of diabetic neuropathy with vasculopathy and likely autonomic dysfunction Needs rehab placement CT head:No acute intracranial findings Code Status: Full Code DVT Px: hold in setting of bleeding Disposition: Plan to discharge to rehab when stable Vital Signs: Date Time Temp Pulse Resp B/P Pulse Ox O2 Delivery O2 Flow Rate FiO2 01/26/17 08:01 36.9 78 18 115/61 96 Room Air 01/26/17 00:00 92 Room Air 01/25/17 23:46 36.6 92 18 149/74 93 Room Air 01/25/17 16:00 Room Air 01/25/17 14:57 36.6 81 19 125/63 94 Room Air Lab Results: Results Past 24 Hours Test 01/25/17 16:32 01/25/17 19:43 01/26/17 07:11 01/26/17 07:28 Range/Units Bedside Glucose 288 202 223 70-99 mg/dl Hemoglobin 8.8 14.0-18.0 g/dL Hematocrit 27.1 42-52 % Creatinine 1.40 0.60-1.40 mg/dl Est Creatinine Clear Calc Drug Dose 67.6 ml/min Estimated GFR () 60.3 Estimated GFR (Non- 52.0
--- NOTE | 2017-01-26 16:16 | Pharmacy Progress Note ---
Glycemic Control: Progress Nt Date of Service January 26, 2017. Scope Glycemic Pharmacist consulted by Dr Durbin on 01/19/17 for glycemic control and to write orders per [facility] inpatient glycemic control protocol. Objective Accuchecks BSG (last 24hrs): Test 01/25/17 16:32 01/25/17 19:43 01/26/17 07:28 01/26/17 11:50 Bedside Glucose 288 mg/dl (70-99) 202 mg/dl (70-99) 223 mg/dl (70-99) 292 mg/dl (70-99) Laboratory Data (last 24hrs) Test 01/26/17 07:11 Creatinine 1.40 mg/dl HbA1c: Test 01/20/17 05:38 Hemoglobin A1c 8.2 % (4.5-5.6) H Recent Pertinent Medications Outpatient Anti-diabetic Regimen: * Levemir 80 units BID plus Regular insulin 3 units BIDM; glyburide 5 mg PO daily The patient is currently receiving: * Basal insulin: Lantus 25 units BID * Correctional Insulin: Novolog Correction per scale ACHS Goal Range: Low 110 mg/dL - High 140 mg/dL Correction Factor: 10 mg/dL/unit * Prandial insulin: Per carb ratio of 1 unit per 3 grams CHO consumed Risk Factors for Insulin Resistance: * Infection: R finger wound infection (vancomycin IV --> Keflex PO) * Recent Surgery: POD 7 for Pleurex cath due to hemothorax * Diet: type 2 diabetic diet Assessment & Plan ASSESSMENT: * ADA & AACE recommend a goal blood sugar range 140-180 mg/dl for the majority of critically ill & non-critically ill patients. However, more stringent targets may be selected in individual cases. Will utilize more stringent goal of 110-140mg/dl based on patient age & comorbidities. Additionally, tighter glycemic control is warranted to facilitate wound/infection healing. * Mr Koroma was admitted 01/19/17 for a fall with pleural effusion and rib fractures. 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 During his hospital stay the patient has received around 80-90 units of insulin per day. His previous hospital stay he required ~ 70 units/day. 01/25/17 * Mr. Mcbride received 71 units yesterday (compared to 96 and 95 units the previous days) with blood sugars ranging from 98 mg/dL- 233 mg/dL. He received 40 units of basal yesterday, which is 10 units less than previous days. I correlate his elevated BSGs this am with decrease in basal insulin * I will forgo basal insulin dose scale based on BSG parameters and start a scheduled dose of Lantus. * Bolus insulin will be slightly tightened for the remainder of today due to hyperglycemia * re-evaluate bolus parameters in am 01/26/17 * Hyperglycemia worsened today - I suspect this is carry over from lack of sufficient basal on 01/24 * Additional 5 units of Lantus given this morning * Increase bolus insulin checks with coverage to q4 hours due to BSGs greater than 250 mg/dL . PLAN FOR INPATIENT GLYCEMIC CONTROL: * Lantus 30 units qam x 1, then Lantus to 25 units SQ BID * Novolog insulin q4 hours * Continue correction factor to 10 mg/dl/unit * Continue carb ratio to 1 unit per 3 grams CHO consumed * Continuing goal range of Low 110 mg/dL - High 140 mg/dL RECOMMENDATIONS FOR DISCHARGE: * Mr Koroma appears to have adequate control of his blood sugars for his age and co-morbidities. He may not be a candidate for glyburide due to his changing kidney function and his age. This can contribute to prolonged hypoglycemia. * Please note that the plan above was derived based on current level of insulin resistance and hospital stress. These recommendations are appropriate for inpatient admission only. Plan of care upon discharge will need to be reassessed to avoid potential outpatient hypo/hyperglycemia. Thank you.
[2017-01-26] MEDS: INSULIN DETEMIR FLEXPEN/FLEX TOUCH 100 UNITS/ML 3ML SC SCH (21:21)
[2017-01-27] MEDS: INSULIN ASPART 100 UNITS/ML 3 ML PEN SC SCH ×6 (04:00→21:58)
[2017-01-27] MEDS: LEVOTHYROXINE 50 MCG TAB PO SCH (05:40)
[2017-01-27] MEDS: ACETAMINOPHEN 500 MG TAB PO SCH ×3 (05:40→21:55)
[2017-01-27 06:59] LABS: HEMATOCRIT 25.5 % (42-52)
[2017-01-27 07:31] LABS: BUN/CREATININE RATIO 28.5 (10-20); CALCIUM 8.6 mg/dl (8.5-10.1); CREATININE 1.1 mg/dl (0.60-1.40); POTASSIUM 3.7 mmol/L (3.5-5.1)
[2017-01-27 07:45] VITALS: BP 152/76; PULSE 68; TEMP 36.4; O2SAT 96
[2017-01-27] MEDS: EUCERIN CR 120 GM JAR EXT SCH ×2 (07:47→21:53)
[2017-01-27] MEDS: FUROSEMIDE 80 MG TAB PO SCH ×2 (07:48→17:02)
[2017-01-27] MEDS: ATORVASTATIN 40 MG TAB PO SCH (07:48)
[2017-01-27] MEDS: ASPIRIN 81 MG ECTAB PO SCH (07:48)
[2017-01-27] MEDS: ISOSORBIDE MONONITRATE 30 MG TABCR PO SCH (07:48)
[2017-01-27] MEDS: SERTRALINE HCL 50 MG TAB PO SCH (07:49)
[2017-01-27] MEDS: ALLOPURINOL 300 MG TAB PO SCH (07:50)
[2017-01-27] MEDS: CEPHALEXIN MONOHYDRATE 500 MG CAP PO SCH ×4 (07:50→21:54)
[2017-01-27] MEDS: LOSARTAN POTASSIUM 25 MG TAB PO SCH (07:50)
[2017-01-27] MEDS: METOPROLOL SUCC 25MG EXT REL TAB PO SCH ×2 (07:50→21:56)
[2017-01-27] MEDS: INSULIN DETEMIR FLEXPEN/FLEX TOUCH 100 UNITS/ML 3ML SC SCH ×2 (07:56→21:59)
[2017-01-27 08:00] VITALS: O2SAT 96
--- NOTE | 2017-01-27 09:15 | Surgery Progress Note ---
Subjective Date of Service: January 27, 2017. Pt notes no SOB at this time. Objective Vitals Date Time Temp Pulse Resp B/P Pulse Ox O2 Delivery O2 Flow Rate FiO2 01/27/17 08:00 96 Room Air 01/27/17 07:45 36.4 68 20 152/76 96 Room Air 01/27/17 00:00 Room Air 01/26/17 23:29 36.7 77 18 152/69 95 Room Air 01/26/17 16:00 Room Air 01/26/17 15:20 36.7 71 18 111/67 96 Room Air 01/26/17 15:19 36.7 71 18 111/67 96 Room Air 01/26/17 14:47 94 Physical Exam General: + well developed, + well nourished, No distress CV: + RRR Pulmonary: + pertinent finding (decreased at right base, although improved since time of admission ), No accessory muscle use, No respiratory distress Drains / Tubes pleurex (right sided; 0 cc obtained today ) Assessment & Plan 66 year old male with right pleural effusion -effusion likely the result of trauma/fall pt. suffered several days ago -pleurex placed (01/19/17) -cultures on pleural fluid (-) -cytology (-) for malignancy -TPA previously administered through pleurex: -improved drainage and CXR appearance noted following TPA administration -will continue daily drainage of pleurex: -ckeck CXR tomorrow am -future TPA instillation will be determined by CXR appearance
--- NOTE | 2017-01-27 11:27 | Pharmacy Progress Note ---
Glycemic Control: Progress Nt Date of Service January 27, 2017. Scope Glycemic Pharmacist consulted by Dr Durbin on 01/19/17 for glycemic control and to write orders per [facility] inpatient glycemic control protocol. Objective Accuchecks BSG (last 24hrs): Test 01/26/17 11:50 01/26/17 16:03 01/26/17 20:33 01/27/17 00:00 Bedside Glucose 292 mg/dl (70-99) 156 mg/dl (70-99) 144 mg/dl (70-99) 140 mg/dl (70-99) Test 01/27/17 04:08 01/27/17 06:47 01/27/17 07:30 Bedside Glucose 138 mg/dl (70-99) 143 mg/dl (70-99) Random Glucose 130 mg/dl (70-99) HbA1c: Test 01/20/17 05:38 Hemoglobin A1c 8.2 % (4.5-5.6) H Recent Pertinent Medications Outpatient Anti-diabetic Regimen: * Levemir 80 units BID plus Regular insulin 3 units BIDM; glyburide 5 mg PO daily The patient is currently receiving: * Basal insulin: Lantus 25 units BID * Correctional Insulin: Novolog Correction per scale ACHS Goal Range: Low 110 mg/dL - High 140 mg/dL Correction Factor: 10 mg/dL/unit * Prandial insulin: Per carb ratio of 1 unit per 3 grams CHO consumed Risk Factors for Insulin Resistance: * Infection: R finger wound infection (vancomycin IV --> Keflex PO) * Recent Surgery: Pleurex cath due to hemothorax * Diet: type 2 diabetic diet Assessment & Plan ASSESSMENT: * ADA & AACE recommend a goal blood sugar range 140-180 mg/dl for the majority of critically ill & non-critically ill patients. However, more stringent targets may be selected in individual cases. Will utilize more stringent goal of 110-140mg/dl based on patient age & comorbidities. Additionally, tighter glycemic control is warranted to facilitate wound/infection healing. * Mr Koroma was admitted 01/19/17 for a fall with pleural effusion and rib fractures. 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 During his hospital stay the patient has received around 80-90 units of insulin per day. His previous hospital stay he required ~ 70 units/day. 01/26/17 * Hyperglycemia worsened today - I suspect this is carry over from lack of sufficient basal on 01/24 * Additional 5 units of Lantus given this morning * Increase bolus insulin checks with coverage to q4 hours due to BSGs greater than 250 mg/dL 01/27/17 * Patient is currently receiving an average of 130 units of insulin per day * 50 units of basal insulin * 80 units of prandial/correctional insulin * BSGs ranging 138 - 223 over the past 24hrs * Risk factors for insulin resistance are constant. No changes needed today * AM Fasting BSG = 143mg/dl --> this is slightly elevated but much improved from previous 48hrs, AM fasting BSG is trending downwards with current dosing ( 243 --> 223 --> 143). No changes needed. * Total daily dose = 130mg/dl therefore may need to evenly re-distribute regimen 50%:50% basal:prandial to prevent hypo/hyperglycemia * Post-prandial BSGs in range, no changes needed to CF/CR . PLAN FOR INPATIENT GLYCEMIC CONTROL: No changes needed today. Continue current regimen * Basal Insulin * Continue Lantus to 25 units SQ BID * Bolus Insulin * Novolog insulin ACHS * Continue correction factor 10 mg/dl/unit * Continue carb ratio 1 unit per 3 grams CHO consumed * Continue goal range of Low 110 mg/dL - High 140 mg/dL RECOMMENDATIONS FOR DISCHARGE: * Mr Koroma appears to have adequate control of his blood sugars for his age and co-morbidities. He may not be a candidate for glyburide due to his changing kidney function and his age. This can contribute to prolonged hypoglycemia. * Please note that the plan above was derived based on current level of insulin resistance and hospital stress. These recommendations are appropriate for inpatient admission only. Plan of care upon discharge will need to be reassessed to avoid potential outpatient hypo/hyperglycemia. Thank you.
--- NOTE | 2017-01-27 11:55 | Progress Note ---
Internal Med Progress Note Date of Service: January 27, 2017. Provider Documentation: SUBJECTIVE: Seen and examined at bedside. States diarrhea is improving and has semiformed BM today. Denies any chest pain, abd pain, SOB. Offers no other complaints. OBJECTIVE: Vital Signs-as noted below GEN: WN/WD, no acute distress. HEENT: NC/AT, EOMI CARDIO: S1, S2, No murmur LUNGS: Normal breath sounds, CTA bilaterally BACK: Pleurx catheter in place ABD: soft, non-tender, non-distended, +BS EXTREMITY: + multiple finger amputations. LLE BKA. RLE: multiple wounds on leg in bandage NEURO: Grossly no focal deficits. SKIN:Multiple wounds as above. Lab data as noted below. ASSESSMENT & PLAN: Patient is a 66 yr male with h/o recent admission for septic shock 2/2 finger infection presents with dyspnea secondary to R hemothorax secondary to trauma 2 weeks ago. He is s/p thoracentesis with 1500cc out initially. Also had PATRICIA which resolved. PleurX catheter in place. Dyspnea and Chest pain secondary to R hemothorax with displaced rib fractures: S /P fall 2 weeks ago s/p thoracentesis on 01/19 with Pleurx catheter placement CT surgery is following Continue supportive care Hb stable Continue incentive spirometry. S/P tPA administered through PleurX on 01/23 Continue daily drainage of pleurex Plan for repeat CXR in AM Further need for TPA to be determined based on CXR Monitor Hb Diarrhea: Follow up stool studies Multiple Rib fractures: supportive care as above. R hand wound: Reports sensation loss in R hand since amputation 6-8 weeks ago in a glove distribution. Continue wound care S/P Vancomycin Wound culture: MSSA Continue Cephalexin per ID: may need for 2 weeks Ortho evaluated as well. 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 Cont home meds. Hold ASA in setting of hemothorax Lasix resumed. H/O CAD s/p stent placement for high grade LAD stenosis ASA on hold Hypothyroidism: continue Synthroid Gout: continue allopurinol Dysequilibrium: multifactorial: In setting of diabetic neuropathy with vasculopathy and likely autonomic dysfunction Needs rehab placement CT head:No acute intracranial findings Code Status: Full Code DVT Px: hold in setting of bleeding Disposition: Plan to discharge to rehab when stable Vital Signs: Date Time Temp Pulse Resp B/P Pulse Ox O2 Delivery O2 Flow Rate FiO2 01/27/17 08:00 96 Room Air 01/27/17 07:45 36.4 68 20 152/76 96 Room Air 01/27/17 00:00 Room Air 01/26/17 23:29 36.7 77 18 152/69 95 Room Air 01/26/17 16:00 Room Air 01/26/17 15:20 36.7 71 18 111/67 96 Room Air 01/26/17 15:19 36.7 71 18 111/67 96 Room Air 01/26/17 14:47 94 Lab Results: Results Past 24 Hours Test 01/26/17 16:03 01/26/17 20:33 01/27/17 00:00 01/27/17 04:08 Range/Units Bedside Glucose 156 144 140 138 70-99 mg/dl Test 01/27/17 06:47 01/27/17 07:30 01/27/17 11:25 Range/Units Hemoglobin 8.7 14.0-18.0 g/dL Hematocrit 25.5 42-52 % Sodium Level 141 136-145 mmol/L Potassium Level 3.7 3.5-5.1 mmol/L Chloride Level 106 98-107 mmol/L Carbon Dioxide Level 28 21-32 mmol/L Anion Gap 7.0 3-11 mmol/L Blood Urea Nitrogen 31 7-18 mg/dl Creatinine 1.10 0.60-1.40 mg/dl Est Creatinine Clear Calc Drug Dose 86.0 ml/min Estimated GFR () 80.6 Estimated GFR (Non- 69.6 BUN/Creatinine Ratio 28.5 10-20 Random Glucose 130 70-99 mg/dl Calcium Level 8.6 8.5-10.1 mg/dl Bedside Glucose 143 186 70-99 mg/dl
[2017-01-27 15:59] VITALS: BP 146/78; PULSE 81; TEMP 36.5; O2SAT 94
[2017-01-27 16:46] VITALS: O2SAT 96
[2017-01-27 22:04] VITALS: BP 137/82; PULSE 80
[2017-01-28 00:16] VITALS: BP 131/67; PULSE 76; TEMP 36.6; O2SAT 96
[2017-01-28 02:47] VITALS: O2SAT 96
[2017-01-28 06:08] LABS: HEMATOCRIT 27.3 % (42-52)
[2017-01-28] MEDS: ACETAMINOPHEN 500 MG TAB PO SCH ×3 (06:50→20:50)
[2017-01-28] MEDS: LEVOTHYROXINE 50 MCG TAB PO SCH (06:51)
[2017-01-28 08:17] VITALS: BP 127/70; PULSE 69; TEMP 36.4; O2SAT 96
[2017-01-28] MEDS: ALLOPURINOL 300 MG TAB PO SCH (08:21)
[2017-01-28] MEDS: SERTRALINE HCL 50 MG TAB PO SCH (08:21)
[2017-01-28] MEDS: EUCERIN CR 120 GM JAR EXT SCH ×2 (08:21→20:48)
[2017-01-28] MEDS: ASPIRIN 81 MG ECTAB PO SCH (08:21)
[2017-01-28] MEDS: ATORVASTATIN 40 MG TAB PO SCH (08:21)
[2017-01-28] MEDS: LOSARTAN POTASSIUM 25 MG TAB PO SCH (08:22)
[2017-01-28] MEDS: CEPHALEXIN MONOHYDRATE 500 MG CAP PO SCH ×4 (08:22→20:49)
[2017-01-28] MEDS: ISOSORBIDE MONONITRATE 30 MG TABCR PO SCH (08:22)
[2017-01-28] MEDS: METOPROLOL SUCC 25MG EXT REL TAB PO SCH ×2 (08:22→20:48)
[2017-01-28] MEDS: FUROSEMIDE 80 MG TAB PO SCH ×2 (08:22→17:10)
[2017-01-28] MEDS: INSULIN ASPART 100 UNITS/ML 3 ML PEN SC SCH ×4 (08:24→20:56)
[2017-01-28] MEDS: INSULIN DETEMIR FLEXPEN/FLEX TOUCH 100 UNITS/ML 3ML SC SCH (08:24)
--- NOTE | 2017-01-28 09:41 | DIAGNOSTIC IMAGING REPORT ---
TWO VIEW CHEST CLINICAL HISTORY: Pleural effusion. FINDINGS: AP and lateral chest radiographs are compared to chest x-ray dated 01/25/2017 and correlated with chest CT dated 01/19/2017. The AP view is degraded by patient rotation. A 3-lead cardiac AICD is unchanged in position and partially obscures the left apex. The heart is enlarged and there is atherosclerotic calcification of the thoracic aorta. The pulmonary vasculature is noncongested. Chronic interstitial thickening is unchanged. A pleural drain is again seen at the right lung base. A layering right pleural effusion with right basilar consolidation has not significantly changed from 01/25/2017. The left appears clear. No pneumothorax is seen. Numerous right-sided rib fractures are again noted. IMPRESSION: 1. Cardiomegaly and AICD. There is no radiographic evidence of congestive failure. 2. 2 layering right pleural effusion with right basilar consolidation has not significant changed from 01/25/2017. A pleural drain is again seen at the right lung base. Electronically signed by: Bennett Dahl M.D. 01/28/2017 9:39 AM Dictated Date/Time: 01/28/2017 9:36 AM
[2017-01-28] MEDS ORDERED: ALTEPLASE, RECOMBINANT 1 MG/ML 2 ML VIAL IPL ONE (10:30)
[2017-01-28] MEDS ORDERED: INSULIN DETEMIR FLEXPEN/FLEX TOUCH 100 UNITS/ML 3ML SC SCH ×4 (12:00→21:00)
--- NOTE | 2017-01-28 12:03 | Pharmacy Progress Note ---
Glycemic Control: Progress Nt Date of Service January 28, 2017. Scope Glycemic Pharmacist consulted for glycemic control and to write orders per [facility] inpatient glycemic control protocol. Objective Accuchecks BSG (last 24hrs): Test 01/27/17 16:41 01/27/17 20:13 01/28/17 07:08 01/28/17 11:10 Bedside Glucose 167 mg/dl (70-99) 205 mg/dl (70-99) 209 mg/dl (70-99) 242 mg/dl (70-99) HbA1c: Test 01/20/17 05:38 Hemoglobin A1c 8.2 % (4.5-5.6) H Recent Pertinent Medications Outpatient Anti-diabetic Regimen: * Levemir 80 units BID plus Regular insulin 3 units BIDM; glyburide 5 mg PO daily The patient is currently receiving: * Basal insulin: Levemir 25 units BID * Correctional Insulin: Novolog Correction per scale ACHS Goal Range: Low 110 mg/dL - High 140 mg/dL Correction Factor: 10 mg/dL/unit * Prandial insulin: Per carb ratio of 1 unit per 3 grams CHO consumed Risk Factors for Insulin Resistance: * Infection: R finger wound infection (vancomycin IV --> Keflex PO) * Recent Surgery: Pleurex cath due to hemothorax * Diet: type 2 diabetic diet Assessment & Plan ASSESSMENT: * ADA & AACE recommend a goal blood sugar range 140-180 mg/dl for the majority of critically ill & non-critically ill patients. However, more stringent targets may be selected in individual cases. Will utilize more stringent goal of 110-140mg/dl based on patient age & comorbidities. Additionally, tighter glycemic control is warranted to facilitate wound/infection healing. * Mr Koroma was admitted 01/19/17 for a fall with pleural effusion and rib fractures. 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 During his hospital stay the patient has received around 80-90 units of insulin per day. His previous hospital stay he required ~ 70 units/day. He has been requiring significantly more than this {but still less than outpatient dosing} during current admission. 01/28/17 * Patient is currently receiving an average of 100-130 units of insulin per day * 50 units of basal insulin * 64-80 units of prandial/correctional insulin * BSGs ranging 167 - 242 over the past 24hrs * Risk factors for insulin resistance are constant, but hyperglycemia worsening. Currently dosing Levemir + Novolog per previous admissions data. Outpatient dosing is much higher than current inpatient dosing. Will continue to titrate to maintain adequate glycemic control. * AM Fasting BSG = 209mg/dl --> trending upwards. Basal insulin needs increased. * Post-prandial BSGs only mildly elevated. Concern for insulin stacking if parameters tightened any further. . PLAN FOR INPATIENT GLYCEMIC CONTROL: Increase basal insulin. Continue current bolus insulin parameters. Consider tightening bolus insulin parameters tomorrow if BSGs not improved. * Basal Insulin * Increase Lantus to 35 units SQ daily in AM + Lantus 30 units daily at HS * Bolus Insulin * Novolog insulin ACHS * Continue correction factor 10 mg/dl/unit * Continue carb ratio 1 unit per 3 grams CHO consumed * Continue goal range of Low 110 mg/dL - High 140 mg/dL RECOMMENDATIONS FOR DISCHARGE: * Mr Koroma appears to have adequate control of his blood sugars for his age and co-morbidities. He may not be a candidate for glyburide due to his changing kidney function and his age. This can contribute to prolonged hypoglycemia. * Please note that the plan above was derived based on current level of insulin resistance and hospital stress. These recommendations are appropriate for inpatient admission only. Plan of care upon discharge will need to be reassessed to avoid potential outpatient hypo/hyperglycemia. Thank you.
--- NOTE | 2017-01-28 12:13 | SURGERY PROGRESS NOTE ---
DATE: 01/28/2017 Mr. Koroma is seen today on 01/28/2017. His is at bedside. He still has some blood that can be seen posteriorly in his lateral chest x-ray. He is better from a respiratory standpoint, but I am concerned about the blood. I decided to put TPA in his tube one more time. I am hopeful that we can break up the rest of this old blood and drain it and then remove his PleurX catheter. [id number]
--- NOTE | 2017-01-28 12:17 | OPERATIVE REPORT ---
DATE OF OPERATION: 01/28/2017 DATE OF PROCEDURE: 01/28/2017. PROCEDURE: Subsequent instillation of tissue plasminogen activator via right PleurX catheter. SURGEON: Dr. Martinez. SPECIFICS OF THE PROCEDURE: At the patient's bedside 4 mg of tissue plasminogen activator were mixed with 10 mL of normal saline and then injected sterilely into the PleurX catheter. We will redrain him in 2 hours. I attest to the content of the Intraoperative Record and any orders documented therein. Any exceptio ns are noted below.
--- NOTE | 2017-01-28 13:24 | Progress Note ---
Internal Med Progress Note Date of Service: January 28, 2017. Provider Documentation: SUBJECTIVE: Seen and examined at bedside. Got repeat tPA administered today. States diarrhea resolved. Denies any chest pain, abd pain, SOB. Offers no other complaints. OBJECTIVE: Vital Signs-as noted below GEN: WN/WD, no acute distress. HEENT: NC/AT, EOMI CARDIO: S1, S2, No murmur LUNGS: Normal breath sounds, CTA bilaterally BACK: Pleurx catheter in place ABD: soft, non-tender, non-distended, +BS EXTREMITY: + multiple finger amputations. LLE BKA. RLE: multiple wounds on leg in bandage NEURO: Grossly no focal deficits. SKIN:Multiple wounds as above. Lab data as noted below. ASSESSMENT & PLAN: Patient is a 66 yr male with h/o recent admission for septic shock 2/2 finger infection presents with dyspnea secondary to R hemothorax secondary to trauma 2 weeks ago. He is s/p thoracentesis with 1500cc out initially. Also had PATRICIA which resolved. PleurX catheter in place. Dyspnea and Chest pain secondary to R hemothorax with displaced rib fractures: S /P fall 2 weeks ago s/p thoracentesis on 01/19 with Pleurx catheter placement CT surgery is following Continue supportive care Hb stable Continue incentive spirometry. S/P tPA administered through PleurX on 01/23 ; repeat tPA administered on 01/28 Continue daily drainage of pleurex Repeat CXR on 01/28: no significant change Monitor Hb Appreciate CT surgery help Diarrhea: Resolved Obtain stool studies if reoccurs Multiple Rib fractures: supportive care as above. R hand wound: Reports sensation loss in R hand since amputation 6-8 weeks ago in a glove distribution. Continue wound care S/P Vancomycin Wound culture: MSSA Continue Cephalexin per ID: may need for 2 weeks Ortho evaluated as well. Non operative 4th metacarpal fracture: Secondary to fall Appreciate Ortho recommendations Anemia: likely secondary to acute blood loss and partly dilutional from IVF S/P 2 units PRBCs Monitor Hb Transfuse PRN PATRICIA on CKD IV Likely secondary to acute urinary retention and dehydration/Also on diuretics at home Cr now at baseline Continue Lasix. 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 Cont home meds. Hold ASA in setting of hemothorax Lasix resumed. H/O CAD s/p stent placement for high grade LAD stenosis ASA on hold Hypothyroidism: continue Synthroid Gout: continue allopurinol Dysequilibrium: multifactorial: In setting of diabetic neuropathy with vasculopathy and likely autonomic dysfunction Needs rehab placement CT head:No acute intracranial findings Code Status: Full Code DVT Px: hold in setting of bleeding Disposition: Plan to discharge to rehab when stable Vital Signs: Date Time Temp Pulse Resp B/P Pulse Ox O2 Delivery O2 Flow Rate FiO2 01/28/17 08:17 36.4 69 20 127/70 96 Room Air 01/28/17 08:00 Room Air 01/28/17 02:47 96 Room Air 01/28/17 00:16 36.6 76 19 131/67 96 Room Air 01/27/17 22:04 80 18 137/82 01/27/17 16:46 96 Room Air 01/27/17 15:59 36.5 81 20 146/78 94 Room Air Lab Results: Results Past 24 Hours Test 01/27/17 16:41 01/27/17 20:13 01/28/17 05:44 01/28/17 07:08 Range/Units Bedside Glucose 167 205 209 70-99 mg/dl Hemoglobin 8.8 14.0-18.0 g/dL Hematocrit 27.3 42-52 % Test 01/28/17 11:10 Range/Units Bedside Glucose 242 70-99 mg/dl
[2017-01-28 15:27] VITALS: BP 122/65; PULSE 64; TEMP 36.7; O2SAT 94
[2017-01-28 16:30] VITALS: O2SAT 94
[2017-01-28] MEDS: TRAMADOL HCL 50 MG TAB PO PRN (17:25)
[2017-01-28 23:57] VITALS: BP 127/70; PULSE 71; TEMP 36.8; O2SAT 94
[2017-01-29] MEDS: MoRPHine SULFATE 4 MG/ML 1 ML CARP\\VIAL IV PRN (00:01)
[2017-01-29] MEDS ORDERED: HYDROCODONE/ACETAMOPHEN 5/325MG TAB PO PRN (00:30)
[2017-01-29 01:51] VITALS: O2SAT 94
[2017-01-29] MEDS: LEVOTHYROXINE 50 MCG TAB PO SCH (05:39)
[2017-01-29] MEDS: ACETAMINOPHEN 500 MG TAB PO SCH ×3 (06:00→21:42)
[2017-01-29 06:09] LABS: HEMATOCRIT 29.1 % (42-52)
[2017-01-29 06:57] LABS: BUN/CREATININE RATIO 27.1 (10-20); CALCIUM 8.4 mg/dl (8.5-10.1); CREATININE 1.2 mg/dl (0.60-1.40); POTASSIUM 3.6 mmol/L (3.5-5.1)
--- NOTE | 2017-01-29 07:09 | DIAGNOSTIC IMAGING REPORT ---
CHEST ONE VIEW PORTABLE CLINICAL HISTORY: Right-sided hemothorax. COMPARISON STUDY: Chest radiograph January 28, 2017. FINDINGS: A left subclavian biventricular pacer is in place. Right pleural catheter is in place. There is no right pneumothorax. A small right pleural effusion with right basilar opacity persists. Right-sided rib fractures are again noted. IMPRESSION: No change in a small right pleural effusion with associated right basilar opacity. Electronically signed by: Ramesh Ham M.D. 01/29/2017 7:07 AM Dictated Date/Time: 01/29/2017 7:06 AM
[2017-01-29] MEDS: EUCERIN CR 120 GM JAR EXT SCH ×2 (07:51→20:40)
[2017-01-29] MEDS: ISOSORBIDE MONONITRATE 30 MG TABCR PO SCH (07:51)
[2017-01-29] MEDS: LOSARTAN POTASSIUM 25 MG TAB PO SCH (07:51)
[2017-01-29] MEDS: SERTRALINE HCL 50 MG TAB PO SCH (07:52)
[2017-01-29] MEDS: CEPHALEXIN MONOHYDRATE 500 MG CAP PO SCH ×4 (07:52→20:45)
[2017-01-29] MEDS: FUROSEMIDE 80 MG TAB PO SCH ×2 (07:52→16:50)
[2017-01-29] MEDS: ALLOPURINOL 300 MG TAB PO SCH (07:52)
[2017-01-29] MEDS: ASPIRIN 81 MG ECTAB PO SCH (07:52)
[2017-01-29] MEDS: METOPROLOL SUCC 25MG EXT REL TAB PO SCH ×2 (07:52→20:48)
[2017-01-29] MEDS: ATORVASTATIN 40 MG TAB PO SCH (07:52)
[2017-01-29 07:58] VITALS: BP 144/76; PULSE 76
[2017-01-29] MEDS: INSULIN ASPART 100 UNITS/ML 3 ML PEN SC SCH ×4 (07:59→20:42)
[2017-01-29 08:11] VITALS: BP 103/54; PULSE 68; TEMP 36.6; O2SAT 97
[2017-01-29] MEDS ORDERED: INSULIN DETEMIR FLEXPEN/FLEX TOUCH 100 UNITS/ML 3ML SC SCH ×2 (09:00→21:00)
--- NOTE | 2017-01-29 09:43 | SURGERY PROGRESS NOTE ---
DATE: 01/29/2017 SUBJECTIVE: Mr. Koroma looks very good today. He had some reexpansion pain with drainage after I injected 4 mg of alteplase in 10 mL of saline yesterday. He drained 225 mL initially. He drained 550 mL last night and 350 mL this morning. His lungs sound better. Despite the x-ray report, I think it looks better with better delineation of the diaphragm. In addition, his hemoglobin has remained stable and in fact is 9.4 this morning. Vital signs are stable. His pulse oximetry is 97% on room air. We are going to continue to drain him on a daily basis. I am hopeful that we will be able to simply drain him with the PleurX. He can go home with this and I will bring him back. I would like to re-emphasize that this tube should not keep this patient in the hospital. We can have it drained in an extended care facility or home. We will get home care nurses to drain it. RENETTA
--- NOTE | 2017-01-29 12:39 | Progress Note ---
Internal Med Progress Note Date of Service: January 29, 2017. Provider Documentation: SUBJECTIVE: Seen and examined at bedside. Patient got tPA yesterday. Had chest pain this morning which resolved. Currently denies chest pain, abd pain, SOB. Offers no other complaints. He drained 550 mL last night and 350 mL this morning. OBJECTIVE: Vital Signs-as noted below GEN: WN/WD, no acute distress. HEENT: NC/AT, EOMI CARDIO: S1, S2, No murmur LUNGS: Normal breath sounds, CTA bilaterally BACK: Pleurx catheter in place ABD: soft, non-tender, non-distended, +BS EXTREMITY: + multiple finger amputations. LLE BKA. RLE: multiple wounds on leg in bandage NEURO: Grossly no focal deficits. SKIN:Multiple wounds as above. Lab data as noted below. ASSESSMENT & PLAN: Patient is a 66 yr male with h/o recent admission for septic shock 2/2 finger infection presents with dyspnea secondary to R hemothorax secondary to trauma 2 weeks ago. He is s/p thoracentesis with 1500cc out initially. Also had PATRICIA which resolved. PleurX catheter in place. Dyspnea and Chest pain secondary to R hemothorax with displaced rib fractures: S /P fall 2 weeks ago s/p thoracentesis on 01/19 with Pleurx catheter placement CT surgery is following Continue supportive care Hb stable Continue incentive spirometry. S/P tPA administered through PleurX on 01/23 ; repeat tPA administered on 01/28 Continue daily drainage of pleurex Repeat CXR on 01/28: no significant change Monitor Hb Appreciate CT surgery help Diarrhea: Improved Obtain stool studies if reoccurs Multiple Rib fractures: supportive care as above. R hand wound: Reports sensation loss in R hand since amputation 6-8 weeks ago in a glove distribution. Continue wound care S/P Vancomycin Wound culture: MSSA Continue Cephalexin per ID: may need for 2 weeks Ortho evaluated as well. Non operative 4th metacarpal fracture: Secondary to fall Appreciate Ortho recommendations Anemia: likely secondary to acute blood loss and partly dilutional from IVF S/P 2 units PRBCs Monitor Hb: stable Transfuse PRN PATRICIA on CKD IV Likely secondary to acute urinary retention and dehydration/Also on diuretics at home Cr now at baseline Continue Lasix. hold metolazone for now Continue to monitor renal function Acute urinary retention: Likely secondary to BPH and significant dehydration Resolved DM II: H/O neuropathy and vasculopathy continue ISS, [place] Appreciate pharmacy consult help Idiopathic dilated cardiomyopathy with severe LV dysfunction (Dx 2000): Appears euvolemic. Cont home meds. Hold ASA in setting of hemothorax Lasix resumed. H/O CAD s/p stent placement for high grade LAD stenosis ASA on hold Hypothyroidism: continue Synthroid Gout: continue allopurinol Dysequilibrium: multifactorial: In setting of diabetic neuropathy with vasculopathy and likely autonomic dysfunction Needs rehab placement CT head:No acute intracranial findings Code Status: Full Code DVT Px: hold in setting of bleeding Disposition: Plan to discharge to rehab when bed available Needs follow up with CT surgery as outpatient Vital Signs: Date Time Temp Pulse Resp B/P Pulse Ox O2 Delivery O2 Flow Rate FiO2 01/29/17 08:11 36.6 68 18 103/54 97 Room Air 01/29/17 08:00 Room Air 01/29/17 07:58 76 144/76 01/29/17 01:51 94 Room Air 01/28/17 23:57 36.8 71 20 127/70 94 Room Air 01/28/17 16:30 94 Room Air 01/28/17 15:27 36.7 64 20 122/65 94 Room Air Lab Results: Results Past 24 Hours Test 01/28/17 16:35 01/28/17 19:51 01/29/17 05:55 01/29/17 07:44 Range/Units Bedside Glucose 171 190 172 70-99 mg/dl Hemoglobin 9.4 14.0-18.0 g/dL Hematocrit 29.1 42-52 % Sodium Level 140 136-145 mmol/L Potassium Level 3.6 3.5-5.1 mmol/L Chloride Level 104 98-107 mmol/L Carbon Dioxide Level 30 21-32 mmol/L Anion Gap 6.0 3-11 mmol/L Blood Urea Nitrogen 33 7-18 mg/dl Creatinine 1.20 0.60-1.40 mg/dl Est Creatinine Clear Calc Drug Dose 78.9 ml/min Estimated GFR () 72.6 Estimated GFR (Non- 62.6 BUN/Creatinine Ratio 27.1 10-20 Random Glucose 136 70-99 mg/dl Calcium Level 8.4 8.5-10.1 mg/dl Test 01/29/17 11:50 Range/Units Bedside Glucose 207 70-99 mg/dl
--- NOTE | 2017-01-29 14:14 | Pharmacy Progress Note ---
Glycemic Control: Progress Nt Date of Service January 29, 2017. Scope Glycemic Pharmacist consulted by Dr Durbin on 01/19/17 for glycemic control and to write orders per [facility] inpatient glycemic control protocol. Objective Accuchecks BSG (last 24hrs): Test 01/28/17 16:35 01/28/17 19:51 01/29/17 05:55 01/29/17 07:44 Bedside Glucose 171 mg/dl (70-99) 190 mg/dl (70-99) 172 mg/dl (70-99) Random Glucose 136 mg/dl (70-99) Test 01/29/17 11:50 Bedside Glucose 207 mg/dl (70-99) Laboratory Data (last 24hrs) HbA1c: Test 01/20/17 05:38 Hemoglobin A1c 8.2 % (4.5-5.6) H Recent Pertinent Medications Outpatient Anti-diabetic Regimen: * Levemir 80 units BID plus Regular insulin 3 units BIDM; glyburide 5 mg PO daily The patient is currently receiving: * Basal insulin: Levemir 35 units in AM and 30 units in PM * Correctional Insulin: Novolog Correction per scale ACHS Goal Range: Low 110 mg/dL - High 140 mg/dL Correction Factor: 10 mg/dL/unit * Prandial insulin: Per carb ratio of 1 unit per 3 grams CHO consumed Risk Factors for Insulin Resistance: * Infection: R finger wound infection (vancomycin IV --> Keflex PO) * Recent Surgery: Pleurex cath due to hemothorax * Diet: type 2 diabetic diet Assessment & Plan ASSESSMENT: * ADA & AACE recommend a goal blood sugar range 140-180 mg/dl for the majority of critically ill & non-critically ill patients. However, more stringent targets may be selected in individual cases. Will utilize more stringent goal of 110-140mg/dl based on patient age & comorbidities. Additionally, tighter glycemic control is warranted to facilitate wound/infection healing. * Mr Koroma was admitted 01/19/17 for a fall with pleural effusion and rib fractures. 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 During his hospital stay the patient has received around 80-90 units of insulin per day. His previous hospital stay he required ~ 70 units/day. He has been requiring significantly more than this {but still less than outpatient dosing} during current admission. 01/29/17 * Patient is currently receiving an average of 130 units of insulin per day * 65 units of basal insulin * 65 units of prandial/correctional insulin * BSGs ranging 171 - 242 over the past 24hrs * Risk factors for insulin resistance are constant, but hyperglycemia worsening. Currently dosing Levemir + Novolog per previous admissions data. Outpatient dosing is much higher than current inpatient dosing. Will continue to titrate to maintain adequate glycemic control. * AM Fasting BSG = 172mg/dl --> improved with increased basal insulin dosing but needs increased further for goal of below 140mg/dl * Post-prandial BSGs only mildly elevated. Concern for insulin stacking if parameters tightened any further. . PLAN FOR INPATIENT GLYCEMIC CONTROL: Increase basal insulin. Continue current bolus insulin parameters. Consider tightening bolus insulin parameters tomorrow if BSGs not improved. * Basal Insulin * Increase Lantus to 35 BID * Bolus Insulin * Novolog insulin ACHS * Continue correction factor 10 mg/dl/unit * Continue carb ratio 1 unit per 3 grams CHO consumed * Continue goal range of Low 110 mg/dL - High 140 mg/dL RECOMMENDATIONS FOR DISCHARGE: * Mr Koroma appears to have adequate control of his blood sugars for his age and co-morbidities. He may not be a candidate for glyburide due to his changing kidney function and his age. This can contribute to prolonged hypoglycemia. * Please note that the plan above was derived based on current level of insulin resistance and hospital stress. These recommendations are appropriate for inpatient admission only. Plan of care upon discharge will need to be reassessed to avoid potential outpatient hypo/hyperglycemia. Thank you.
[2017-01-29 16:25] VITALS: BP 101/60; PULSE 68; TEMP 36.6; O2SAT 97
[2017-01-29 20:48] VITALS: BP 116/66; PULSE 71
[2017-01-29 23:06] VITALS: BP 129/71; PULSE 65; TEMP 36.4; O2SAT 95
[2017-01-30] MEDS: LEVOTHYROXINE 50 MCG TAB PO SCH (06:11)
[2017-01-30] MEDS: ACETAMINOPHEN 500 MG TAB PO SCH ×3 (06:12→21:30)
[2017-01-30 06:49] VITALS: BP 97/58; PULSE 61; TEMP 36.5; O2SAT 94
[2017-01-30 07:05] LABS: HEMATOCRIT 30.2 % (42-52)
[2017-01-30] MEDS: EUCERIN CR 120 GM JAR EXT SCH ×2 (08:19→21:28)
[2017-01-30] MEDS: ATORVASTATIN 40 MG TAB PO SCH (08:20)
[2017-01-30] MEDS: ALLOPURINOL 300 MG TAB PO SCH (08:20)
[2017-01-30] MEDS: ASPIRIN 81 MG ECTAB PO SCH (08:20)
[2017-01-30] MEDS: LOSARTAN POTASSIUM 25 MG TAB PO SCH (08:21)
[2017-01-30] MEDS: METOPROLOL SUCC 25MG EXT REL TAB PO SCH ×2 (08:21→21:29)
[2017-01-30] MEDS: FUROSEMIDE 80 MG TAB PO SCH ×2 (08:21→17:29)
[2017-01-30] MEDS: CEPHALEXIN MONOHYDRATE 500 MG CAP PO SCH ×4 (08:22→21:29)
[2017-01-30] MEDS: SERTRALINE HCL 50 MG TAB PO SCH (08:22)
[2017-01-30] MEDS: ISOSORBIDE MONONITRATE 30 MG TABCR PO SCH (08:22)
--- NOTE | 2017-01-30 08:29 | Surgery Progress Note ---
Subjective Date of Service: January 30, 2017. Pt. denies SOB. Objective Vitals Date Time Temp Pulse Resp B/P Pulse Ox O2 Delivery O2 Flow Rate FiO2 01/30/17 06:49 36.5 61 16 97/58 94 Room Air 01/30/17 00:00 Room Air 01/29/17 23:06 36.4 65 18 129/71 95 Room Air 01/29/17 20:48 71 116/66 01/29/17 16:25 36.6 68 18 101/60 97 Room Air 01/29/17 16:00 Room Air Physical Exam General: + well developed, + well nourished, No distress CV: + RRR Pulmonary: + pertinent finding (slight decrease at righ base), No accessory muscle use, No respiratory distress Drains / Tubes pleurex (drained for 100 cc this am ) Assessment & Plan 66 year old male with right pleural effusion -effusion likely the result of trauma/fall pt. suffered several days ago -pleurex placed (01/19/17) -cultures on pleural fluid (-) -cytology (-) for malignancy -TPA administered through pleurex at various intervals: -improved drainage and CXR appearance noted following TPA administration -will continue daily drainage of pleurex: -ok for d/c from surgical point--we will see him in office upon discharge
[2017-01-30] MEDS: INSULIN ASPART 100 UNITS/ML 3 ML PEN SC SCH ×4 (08:31→21:00)
[2017-01-30] MEDS: INSULIN DETEMIR FLEXPEN/FLEX TOUCH 100 UNITS/ML 3ML SC SCH ×2 (08:32→21:28)
[2017-01-30 08:45] VITALS: BP 106/69; PULSE 67
--- NOTE | 2017-01-30 11:17 | Progress Note ---
Internal Med Progress Note Date of Service: January 30, 2017. Provider Documentation: SUBJECTIVE: Seen and examined at bedside. States feeling well. Denies chest pain, SOB. Offers no other complaints. OBJECTIVE: Vital Signs-as noted below GEN: WN/WD, no acute distress. HEENT: NC/AT, EOMI CARDIO: S1, S2, No murmur LUNGS: Normal breath sounds, CTA bilaterally BACK: Pleurx catheter in place ABD: soft, non-tender, non-distended, +BS EXTREMITY: + multiple finger amputations. LLE BKA. RLE: multiple wounds on leg in bandage NEURO: Grossly no focal deficits. SKIN:Multiple wounds as above. Lab data as noted below. ASSESSMENT & PLAN: Patient is a 66 yr male with h/o recent admission for septic shock 2/2 finger infection presents with dyspnea secondary to R hemothorax secondary to trauma 2 weeks ago. He is s/p thoracentesis with 1500cc out initially. Also had PATRICIA which resolved. PleurX catheter in place. Dyspnea and Chest pain secondary to R hemothorax with displaced rib fractures: S /P fall 2 weeks ago s/p thoracentesis on 01/19 with Pleurx catheter placement CT surgery is following Continue supportive care Hb stable Continue incentive spirometry. S/P tPA administered through PleurX on 01/23 ; repeat tPA administered on 01/28 Continue daily drainage of pleurex Repeat CXR on 01/28: no significant change Appreciate CT surgery help Diarrhea: Improved Obtain stool studies if reoccurs Multiple Rib fractures: supportive care as above. R hand wound: Reports sensation loss in R hand since amputation 6-8 weeks ago in a glove distribution. Continue wound care S/P Vancomycin Wound culture: MSSA Continue Cephalexin per ID: may need for 2 weeks: Started on 01/23 Ortho evaluated as well. Non operative 4th metacarpal fracture: Secondary to fall Appreciate Ortho recommendations Anemia: likely secondary to acute blood loss and partly dilutional from IVF S/P 2 units PRBCs Hb: stable Transfuse PRN PATRICIA on CKD IV Likely secondary to acute urinary retention and dehydration/Also on diuretics at home Cr now at baseline Continue Lasix. Resume metolazone upon discharge Resolved Acute urinary retention: Likely secondary to BPH and significant dehydration Resolved DM II: H/O neuropathy and vasculopathy continue ISS, Lantus Appreciate pharmacy consult help Idiopathic dilated cardiomyopathy with severe LV dysfunction (Dx 2000): Appears euvolemic. Cont home meds. Hold ASA in setting of hemothorax Lasix resumed. H/O CAD s/p stent placement for high grade LAD stenosis ASA on hold Hypothyroidism: continue Synthroid Gout: continue allopurinol Dysequilibrium: multifactorial: In setting of diabetic neuropathy with vasculopathy and likely autonomic dysfunction Needs rehab placement CT head:No acute intracranial findings Code Status: Full Code DVT Px: hold in setting of bleeding Disposition: Medically stable: Plan to discharge to rehab when bed available Needs follow up with CT surgery as outpatient Vital Signs: Date Time Temp Pulse Resp B/P Pulse Ox O2 Delivery O2 Flow Rate FiO2 01/30/17 08:45 67 106/69 01/30/17 08:00 Room Air 01/30/17 06:49 36.5 61 16 97/58 94 Room Air 01/30/17 00:00 Room Air 01/29/17 23:06 36.4 65 18 129/71 95 Room Air 01/29/17 20:48 71 116/66 01/29/17 16:25 36.6 68 18 101/60 97 Room Air 01/29/17 16:00 Room Air Lab Results: Results Past 24 Hours Test 01/29/17 11:50 01/29/17 16:45 01/29/17 20:13 01/30/17 06:24 Range/Units Bedside Glucose 207 183 252 70-99 mg/dl Hemoglobin 9.9 14.0-18.0 g/dL Hematocrit 30.2 42-52 % Test 01/30/17 07:41 Range/Units Bedside Glucose 153 70-99 mg/dl
--- NOTE | 2017-01-30 13:03 | Pharmacy Progress Note ---
Glycemic Control: Progress Nt Date of Service January 30, 2017. Scope Glycemic Pharmacist consulted for glycemic control and to write orders per [facility] inpatient glycemic control protocol. Objective Accuchecks BSG (last 24hrs): Test 01/29/17 16:45 01/29/17 20:13 01/30/17 07:41 01/30/17 11:26 Bedside Glucose 183 mg/dl (70-99) 252 mg/dl (70-99) 153 mg/dl (70-99) 187 mg/dl (70-99) HbA1c: Test 01/20/17 05:38 Hemoglobin A1c 8.2 % (4.5-5.6) H Recent Pertinent Medications Outpatient Anti-diabetic Regimen: * Levemir 80 units BID plus Regular insulin 3 units BIDM; glyburide 5 mg PO daily The patient is currently receiving: * Basal insulin: Levemir 35 units BID * Correctional Insulin: Novolog Correction per scale ACHS Goal Range: Low 110 mg/dL - High 140 mg/dL Correction Factor: 10 mg/dL/unit * Prandial insulin: Per carb ratio of 1 unit per 3 grams CHO consumed Risk Factors for Insulin Resistance: * Infection: R finger wound infection (vancomycin IV --> Keflex PO) * Recent Surgery: Pleurex cath due to hemothorax * Diet: type 2 diabetic diet Assessment & Plan ASSESSMENT: * ADA & AACE recommend a goal blood sugar range 140-180 mg/dl for the majority of critically ill & non-critically ill patients. However, more stringent targets may be selected in individual cases. Will utilize more stringent goal of 110-140mg/dl based on patient age & comorbidities. Additionally, tighter glycemic control is warranted to facilitate wound/infection healing. * Mr Koroma was admitted 01/19/17 for a fall with pleural effusion and rib fractures. 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 During his hospital stay the patient has received around 80-90 units of insulin per day. His previous hospital stay he required ~ 70 units/day. He has been requiring significantly more than this {but still less than outpatient dosing} during current admission. 01/30/17 * Patient is currently receiving an average of 150 units of insulin per day * 70 units of basal insulin * 75 units of prandial/correctional insulin * BSGs ranging 153 - 252 over the past 24hrs * Risk factors for insulin resistance are constant, but hyperglycemia continues. Currently dosing Levemir + Novolog per previous admissions data. Outpatient dosing is much higher than current inpatient dosing. Will continue to titrate to maintain adequate glycemic control. * AM Fasting BSG = 153mg/dl --> improved with increased basal insulin dosing but needs increased further for goal of below 140mg/dl * Post-prandial BSGs only still elevated. Will tighten bolus insulin parameters . PLAN FOR INPATIENT GLYCEMIC CONTROL: * Basal Insulin * Increase Lantus to 40units SQ in AM + 35 units SQ in PM * Bolus Insulin * Novolog insulin ACHS * Continue correction factor 10 mg/dl/unit * Tighten carb ratio 1 unit per 2.5 grams CHO consumed * Continue goal range of Low 110 mg/dL - High 140 mg/dL RECOMMENDATIONS FOR DISCHARGE: * Mr Koroma appears to have adequate control of his blood sugars for his age and co-morbidities. He may not be a candidate for glyburide due to his changing kidney function and his age. This can contribute to prolonged hypoglycemia. * Please note that the plan above was derived based on current level of insulin resistance and hospital stress. These recommendations are appropriate for inpatient admission only. Plan of care upon discharge will need to be reassessed to avoid potential outpatient hypo/hyperglycemia. Thank you.
[2017-01-30 15:09] VITALS: BP_SYST 106; BP_SYST 109; BP_DIAS 64; BP_DIAS 69; PULSE 67; PULSE 70; TEMP 36.4; TEMP 36.5; O2SAT 94; O2SAT 97
[2017-01-31] VITALS: BP 129/67; PULSE 73; TEMP 36.9; O2SAT 98
[2017-01-31] MEDS: LEVOTHYROXINE 50 MCG TAB PO SCH (05:15)
[2017-01-31] MEDS: ACETAMINOPHEN 500 MG TAB PO SCH ×3 (05:16→21:07)
[2017-01-31 07:28] VITALS: BP 115/65; PULSE 66; TEMP 37; O2SAT 95
[2017-01-31 08:00] VITALS: O2SAT 95
[2017-01-31] MEDS: ASPIRIN 81 MG ECTAB PO SCH (08:57)
[2017-01-31] MEDS: SERTRALINE HCL 50 MG TAB PO SCH (08:57)
[2017-01-31] MEDS: CEPHALEXIN MONOHYDRATE 500 MG CAP PO SCH ×4 (08:57→20:57)
[2017-01-31] MEDS: METOPROLOL SUCC 25MG EXT REL TAB PO SCH ×2 (08:57→20:58)
[2017-01-31] MEDS: ALLOPURINOL 300 MG TAB PO SCH (08:57)
[2017-01-31] MEDS: LOSARTAN POTASSIUM 25 MG TAB PO SCH (08:57)
[2017-01-31] MEDS: ISOSORBIDE MONONITRATE 30 MG TABCR PO SCH (08:58)
[2017-01-31] MEDS: FUROSEMIDE 80 MG TAB PO SCH ×2 (08:58→17:23)
[2017-01-31] MEDS: ATORVASTATIN 40 MG TAB PO SCH (08:58)
[2017-01-31] MEDS: EUCERIN CR 120 GM JAR EXT SCH ×2 (09:00→20:56)
[2017-01-31] MEDS: INSULIN ASPART 100 UNITS/ML 3 ML PEN SC SCH ×4 (09:03→21:05)
[2017-01-31] MEDS: INSULIN DETEMIR FLEXPEN/FLEX TOUCH 100 UNITS/ML 3ML SC SCH ×2 (09:04→21:05)
--- NOTE | 2017-01-31 09:53 | Pharmacy Progress Note ---
Glycemic Control: Progress Nt Date of Service January 31, 2017. Scope Glycemic Pharmacist consulted by Dr Durbin on 01/19/17 for glycemic control and to write orders per [facility] inpatient glycemic control protocol. Objective Accuchecks BSG (last 24hrs): Test 01/30/17 11:26 01/30/17 16:32 01/30/17 20:42 01/31/17 07:15 Bedside Glucose 187 mg/dl (70-99) 187 mg/dl (70-99) 135 mg/dl (70-99) 106 mg/dl (70-99) HbA1c: Test 01/20/17 05:38 Hemoglobin A1c 8.2 % (4.5-5.6) H Recent Pertinent Medications Outpatient Anti-diabetic Regimen: * Levemir 80 units BID plus Regular insulin 3 units BIDM; glyburide 5 mg PO daily The patient is currently receiving: * Basal insulin: Levemir 40 units SQ qam + 35 units SQ qpm * Correctional Insulin: Novolog Correction per scale ACHS Goal Range: Low 110 mg/dL - High 140 mg/dL Correction Factor: 10 mg/dL/unit * Prandial insulin: Per carb ratio of 1 unit per 2.5 grams CHO consumed Risk Factors for Insulin Resistance: * Infection: R finger wound infection (vancomycin IV --> Keflex PO) * Recent Surgery: Pleurex cath due to hemothorax * Diet: type 2 diabetic diet Assessment & Plan ASSESSMENT: * ADA & AACE recommend a goal blood sugar range 140-180 mg/dl for the majority of critically ill & non-critically ill patients. However, more stringent targets may be selected in individual cases. Will utilize more stringent goal of 110-140mg/dl based on patient age & comorbidities. Additionally, tighter glycemic control is warranted to facilitate wound/infection healing. * Mr Koroma was admitted 01/19/17 for a fall with pleural effusion and rib fractures. 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 During his hospital stay the patient has received around 80-90 units of insulin per day. His previous hospital stay he required ~ 70 units/day. He has been requiring significantly more than this {but still less than outpatient dosing} during current admission. 01/31/17 * Patient is currently receiving ~150 units of insulin per day (156 units over the past 24 hours). Risk factors for insulin resistance remain constant. * BSGs ranging 153 - 187 over the past 24hrs * Fasting BSG improved today and at goal * Post prandial BSGs also improved - continue current parameters . PLAN FOR INPATIENT GLYCEMIC CONTROL: * Basal Insulin * Continue Lantus to 40units SQ in AM + 35 units SQ in PM * Bolus Insulin * Novolog insulin ACHS * Continue correction factor 10 mg/dl/unit * Continue carb ratio 1 unit per 2.5 grams CHO consumed * Continue goal range of Low 110 mg/dL - High 140 mg/dL RECOMMENDATIONS FOR DISCHARGE: * Mr Koroma appears to have adequate control of his blood sugars for his age and co-morbidities. He may not be a candidate for glyburide due to his changing kidney function and his age. This can contribute to prolonged hypoglycemia. * Please note that the plan above was derived based on current level of insulin resistance and hospital stress. These recommendations are appropriate for inpatient admission only. Plan of care upon discharge will need to be reassessed to avoid potential outpatient hypo/hyperglycemia. Thank you.
--- NOTE | 2017-01-31 11:11 | SURGERY PROGRESS NOTE ---
DATE: 01/31/2017 Mr. Koroma was seen today on 01/31/2017. His PleurX catheter drained very little today. He drained 350 two days ago and 100 mL yesterday. He feels "great". Pulse oximetry on room air this morning was 96%. We grew nothing out of his fluid. This fluid is an exudate however. The pH is only 7.21, but the glucose is 199. He has been afebrile. His vital signs have been stable. We are going to order a two view chest x-ray on him for today and review it. I do not believe we were dealing with any type of empyema in this patient. RENETTA
--- NOTE | 2017-01-31 11:34 | Progress Note ---
Internal Med Progress Note Date of Service: January 31, 2017. Provider Documentation: SUBJECTIVE: Seen and examined at bedside. Clinically no significant change from yesterday. Denies chest pain, SOB. Eager to get discharged. Offers no other complaints. OBJECTIVE: Vital Signs-as noted below GEN: WN/WD, no acute distress. HEENT: NC/AT, EOMI CARDIO: S1, S2, No murmur LUNGS: Normal breath sounds, CTA bilaterally BACK: Pleurx catheter in place ABD: soft, non-tender, non-distended, +BS EXTREMITY: + multiple finger amputations. LLE BKA. RLE: multiple wounds on leg in bandage NEURO: Grossly no focal deficits. SKIN:Multiple wounds as above. Lab data as noted below. ASSESSMENT & PLAN: Patient is a 66 yr male with h/o recent admission for septic shock 2/2 finger infection presents with dyspnea secondary to R hemothorax secondary to trauma 2 weeks ago. He is s/p thoracentesis with 1500cc out initially. Also had PATRICIA which resolved. PleurX catheter in place. Dyspnea and Chest pain secondary to R hemothorax with displaced rib fractures: S /P fall 2 weeks ago s/p thoracentesis on 01/19 with Pleurx catheter placement CT surgery is following Continue supportive care Hb stable Continue incentive spirometry. S/P tPA administered through PleurX on 01/23 ; repeat tPA administered on 01/28 Continue daily drainage of pleurex Repeat CXR on 01/28: no significant change Appreciate CT surgery help Repeat CXR: No significant change Diarrhea: Improved Obtain stool studies if reoccurs Multiple Rib fractures: supportive care as above. R hand wound: Reports sensation loss in R hand since amputation 6-8 weeks ago in a glove distribution. Continue wound care S/P Vancomycin Wound culture: MSSA Continue Cephalexin per ID: may need for 2 weeks: Started on 01/23 Ortho evaluated as well. Non operative 4th metacarpal fracture: Secondary to fall Appreciate Ortho recommendations Anemia: likely secondary to acute blood loss and partly dilutional from IVF S/P 2 units PRBCs Hb: stable: 9.8 today Transfuse PRN PATRICIA on CKD IV Likely secondary to acute urinary retention and dehydration/Also on diuretics at home Cr now at baseline Continue Lasix. 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 Cont home meds. Hold ASA in setting of hemothorax Lasix resumed. H/O CAD s/p stent placement for high grade LAD stenosis ASA on hold Hypothyroidism: continue Synthroid Gout: continue allopurinol Dysequilibrium: multifactorial: In setting of diabetic neuropathy with vasculopathy and likely autonomic dysfunction Needs rehab placement CT head:No acute intracranial findings Code Status: Full Code DVT Px: hold in setting of bleeding Disposition: Medically stable: Plan to discharge to rehab when bed available Needs follow up with CT surgery as outpatient Vital Signs: Date Time Temp Pulse Resp B/P Pulse Ox O2 Delivery O2 Flow Rate FiO2 01/31/17 08:00 95 Room Air 2.0 01/31/17 07:28 37.0 66 18 115/65 95 Room Air 01/31/17 00:00 Room Air 01/31/17 00:00 36.9 73 20 129/67 98 Room Air 01/30/17 16:30 Room Air 01/30/17 15:09 36.5 67 16 106/69 94 Room Air 2.0 01/30/17 15:09 36.4 70 18 109/64 97 Room Air Lab Results: Results Past 24 Hours Test 01/30/17 16:32 01/30/17 20:42 01/31/17 07:15 01/31/17 07:45 Range/Units Bedside Glucose 187 135 106 70-99 mg/dl Hemoglobin 9.8 14.0-18.0 g/dL Hematocrit 30.0 42-52 % Test 01/31/17 11:11 Range/Units Bedside Glucose 170 70-99 mg/dl
--- NOTE | 2017-01-31 12:00 | DIAGNOSTIC IMAGING REPORT ---
CHEST 2 VIEWS ROUTINE HISTORY: right hemothorax COMPARISON: Chest 01/29/2017. FINDINGS: Right pleural catheter is unchanged in position. Small right pleural effusion and right basilar densities persist. No pneumothorax. The left lung is clear. The heart is stable in size. Left-sided pacemaker/defibrillator is again noted. IMPRESSION: No change in the small right pleural effusion, right basilar opacity, and right pleural catheter. No definite pneumothorax. Electronically signed by: Man Hamlin M.D. 01/31/2017 11:58 AM Dictated Date/Time: 01/31/2017 11:57 AM
[2017-01-31 13:52] VITALS: BP 103/53; PULSE 70; O2SAT 98
[2017-01-31 15:17] VITALS: BP 101/59; PULSE 68; TEMP 36.8; O2SAT 96
--- NOTE | 2017-01-31 16:00 | Infectious Disease Progress Nt ---
Progress Note Date of Service January 31, 2017. Subjective Pt evaluation today including: conversation w/ patient, physical exam, chart review, lab review, review of studies, conversation w/ healthcare network pricing consultant, review of inpatient medication list Patient offering no new complaints. Pain controlled. Remains afebrile. Tolerating Keflex without apparent difficulty. All Other Systems: Reviewed and Negative Medications Current Inpatient Medications Medications (Trade) Dose Ordered Sig/Ifeanyi Route Start Time Stop Time Status Last Admin Dose Admin Glucose (Glucose 40% Gel) 15-30 GRAMS 15 GRAMS... UD PRN PO 01/19/17 08:15 02/18/17 08:14 Glucose (Glucose Chew Tab) 4-8 Tablets 4 Tabl... UD PRN PO 01/19/17 08:15 02/18/17 08:14 Dextrose (Dextrose 50% 50ML Syringe) 25-50ML OF 50% DW IV FOR... UD PRN IV 01/19/17 08:15 02/18/17 08:14 Glucagon (Glucagon Inj) 1 mg UD PRN SQ 01/19/17 08:15 02/18/17 08:14 Miscellaneous Information (Consult Glycemic Management Pharmacy) 1 ea UD PRN N/A 01/19/17 08:34 02/18/17 08:33 Ondansetron HCl (Zofran Inj) 4 mg Q6H PRN IV 01/19/17 08:15 02/18/17 08:14 Polyethylene (Miralax Powder Packet) 17 gm DAILY PRN PO 01/19/17 08:15 02/18/17 08:14 01/25/17 08:37 17 GM Allopurinol (Zyloprim Tab) 300 mg DAILY PO 01/20/17 09:00 02/19/17 08:59 01/31/17 08:57 300 MG Atorvastatin Calcium (Lipitor Tab) 80 mg DAILY PO 01/20/17 09:00 02/19/17 08:59 01/31/17 08:58 80 MG Isosorbide Mononitrate (Imdur Ext Rel Tab) 15 mg QAM PO 01/20/17 09:00 02/19/17 08:59 01/31/17 08:58 15 MG Levothyroxine Sodium (Synthroid Tab) 50 mcg DAILYBB PO 01/20/17 06:00 02/19/17 05:59 01/31/17 05:15 50 MCG Losartan Potassium (coZAAR TAB) 25 mg DAILY PO 01/20/17 09:00 02/19/17 08:59 01/31/17 08:57 25 MG Metoprolol Succinate (Toprol Xl Tab) 25 mg BID PO 01/19/17 21:00 02/18/17 20:59 01/31/17 08:57 25 MG Sertraline HCl (Zoloft Tab) 100 mg DAILY PO 01/20/17 09:00 02/19/17 08:59 01/31/17 08:57 100 MG Aspirin (Ecotrin Tab) 81 mg DAILY PO 01/20/17 09:00 02/19/17 08:59 01/31/17 08:57 81 MG Acetaminophen (Tylenol Tab) 1,000 mg Q8 PO 01/19/17 14:00 02/18/17 13:59 Future hold 01/31/17 13:56 1,000 MG Tramadol HCl (Ultram Tab) 50 mg Q8H PRN PO 01/19/17 12:57 02/18/17 12:56 01/28/17 17:25 50 MG Multi-Ingredient Ointment (Eucerin Unscented Cr) 1 appln BID EXT 01/22/17 09:00 02/21/17 08:59 01/31/17 09:00 1 APPLN Cephalexin Monohydrate (Keflex Cap) 500 mg QID PO 01/23/17 13:00 03/06/17 12:59 01/31/17 13:56 500 MG Morphine Sulfate (MoRPHine SULFATE INJ) 4 mg Q4H PRN IV 01/23/17 17:30 02/06/17 17:29 01/24/17 17:09 4 MG Furosemide (Lasix Tab) 80 mg BID17 PO 01/25/17 09:00 02/24/17 08:59 01/31/17 08:58 80 MG Insulin Aspart (novoLOG ASPART) SLIDING SCALE If C... ACHS SC 01/27/17 11:00 02/26/17 10:59 01/31/17 14:00 23 UNITS Acetaminophen/ Hydrocodone Bitart ([place] 5/325 Tab) 1 tab Q6H PRN PO 01/29/17 00:30 02/12/17 00:29 Insulin Detemir (Levemir Flexpen/ FlexTouch) 40 unit QAM [place] 01/30/17 09:00 03/01/17 08:59 01/31/17 09:04 40 UNIT Insulin Detemir (Levemir Flexpen/ FlexTouch) 35 unit HS IL 01/30/17 21:00 03/01/17 20:59 01/30/17 21:28 35 UNIT Objective Vital Signs Date Time Temp Pulse Resp B/P Pulse Ox O2 Delivery O2 Flow Rate FiO2 01/31/17 15:17 36.8 68 18 101/59 96 Room Air 01/31/17 13:52 70 98 01/31/17 08:00 95 Room Air 2.0 01/31/17 07:28 37.0 66 18 115/65 95 Room Air 01/31/17 00:00 Room Air 01/31/17 00:00 36.9 73 20 129/67 98 Room Air 01/30/17 16:30 Room Air Physical Exam General Appearance: WD/WN, no apparent distress Eyes: normal inspection, sclerae normal ENT: normal ENT inspection, pharynx normal Neck: supple, no adenopathy, trachea midline Respiratory/Chest: chest non-tender, lungs clear, normal breath sounds, no respiratory distress, + pertinent finding (Pleural catheter right chest) Cardiovascular: regular rate, rhythm, no gallop, no murmur Abdomen: normal bowel sounds, non tender, soft, no organomegaly Extremities: non-tender, no calf tenderness Neurologic/Psychiatric: alert, oriented x 3 Skin: normal color, warm/dry, no rash Lymphatic: no adenopathy Laboratory Results Last 24 Hours Test 01/30/17 16:32 01/30/17 20:42 01/31/17 07:15 01/31/17 07:45 Bedside Glucose 187 mg/dl 135 mg/dl 106 mg/dl Hemoglobin 9.8 g/dL Hematocrit 30.0 % Test 01/31/17 11:11 Bedside Glucose 170 mg/dl [~ rep ct add3]] CHEST 2 VIEWS ROUTINE HISTORY: right hemothorax COMPARISON: Chest 01/29/2017. FINDINGS: Right pleural catheter is unchanged in position. Small right pleural effusion and right basilar densities persist. No pneumothorax. The left lung is clear. The heart is stable in size. Left-sided pacemaker/defibrillator is again noted. IMPRESSION: No change in the small right pleural effusion, right basilar opacity, and right pleural catheter. No definite pneumothorax. Electronically signed by: Man Hamlin M.D. 01/31/2017 11:58 AM Dictated Date/Time: 01/31/2017 11:57 AM The status of this report is Signed. Draft = Not yet reviewed or approved by Radiologist. Signed = Reviewed and approved by Radiologist. <AttendingPhy>Alexandr Lane MD</AttendingPhy> <FamilyPhy>Kip Addison D.OShiv</FamilyPhy> <PrimaryPhy>Kip Addison D.OShiv</PrimaryPhy> <UnitNumber> [id number]</UnitNumber> <VisitNumber>[id number]</VisitNumber> <PatientName> LUZ CRUZ</PatientName> <DateOfBirth>[birth year] Assessment and Plan 66-year-old male with diabetes mellitus, previous right hand infection status post amputation of fingers, admitted with rib fractures with hemothorax, with some evidence of local infection of his amputation site. Patient to be given 14 days of cephalexin and then be re-evaluated at the wound Care [facility].
[2017-01-31 23:14] VITALS: BP 112/57; PULSE 73; TEMP 36.8; O2SAT 95
[2017-02-01] MEDS: LEVOTHYROXINE 50 MCG TAB PO SCH (06:07)
[2017-02-01] MEDS: ACETAMINOPHEN 500 MG TAB PO SCH ×2 (06:07→13:29)
[2017-02-01 07:16] VITALS: BP 139/71; PULSE 69; TEMP 36.6; O2SAT 97
[2017-02-01 07:36] LABS: HEMATOCRIT 27.6 % (42-52)
[2017-02-01 08:00] VITALS: O2SAT 97
[2017-02-01] MEDS: ALLOPURINOL 300 MG TAB PO SCH (08:05)
[2017-02-01] MEDS: ASPIRIN 81 MG ECTAB PO SCH (08:05)
[2017-02-01] MEDS: ATORVASTATIN 40 MG TAB PO SCH (08:05)
[2017-02-01] MEDS: ISOSORBIDE MONONITRATE 30 MG TABCR PO SCH (08:05)
[2017-02-01] MEDS: FUROSEMIDE 80 MG TAB PO SCH (08:06)
[2017-02-01] MEDS: SERTRALINE HCL 50 MG TAB PO SCH (08:06)
[2017-02-01] MEDS: CEPHALEXIN MONOHYDRATE 500 MG CAP PO SCH ×2 (08:06→12:29)
[2017-02-01] MEDS: METOPROLOL SUCC 25MG EXT REL TAB PO SCH (08:06)
[2017-02-01] MEDS: EUCERIN CR 120 GM JAR EXT SCH (08:07)
[2017-02-01] MEDS: LOSARTAN POTASSIUM 25 MG TAB PO SCH (08:07)
[2017-02-01] MEDS: INSULIN DETEMIR FLEXPEN/FLEX TOUCH 100 UNITS/ML 3ML SC SCH (09:13)
--- NOTE | 2017-02-01 09:20 | Progress Note ---
Internal Med Progress Note Date of Service: February 01, 2017. Provider Documentation: SUBJECTIVE: Seen and examined at bedside. States feeling well. No new complaints. Denies chest pain, SOB. Planned to be discharged to [place] today. Offers no other complaints. OBJECTIVE: Vital Signs-as noted below GEN: WN/WD, no acute distress. HEENT: NC/AT, EOMI CARDIO: S1, S2, No murmur LUNGS: Normal breath sounds, CTA bilaterally BACK: Pleurx catheter in place ABD: soft, non-tender, non-distended, +BS EXTREMITY: + multiple finger amputations. LLE BKA. RLE: multiple wounds on leg in bandage NEURO: Grossly no focal deficits. SKIN:Multiple wounds as above. Lab data as noted below. ASSESSMENT & PLAN: Patient is a 66 yr male with h/o recent admission for septic shock 2/2 finger infection presents with dyspnea secondary to R hemothorax secondary to trauma 2 weeks ago. He is s/p thoracentesis with 1500cc out initially. Also had PATRICIA which resolved. PleurX catheter in place. Dyspnea and Chest pain secondary to R hemothorax with displaced rib fractures: S /P fall 2 weeks ago s/p thoracentesis on 01/19 with Pleurx catheter placement CT surgery is following Continue supportive care Hb stable Continue incentive spirometry. S/P tPA administered through PleurX on 01/23 ; repeat tPA administered on 01/28 Continue daily drainage of pleurex Repeat CXR on 01/28: no significant change Appreciate CT surgery help Repeat CXR: No significant change PleurX catheter removed on 02/01/17 Diarrhea: Resolved Obtain stool studies if reoccurs Multiple Rib fractures: supportive care as above. R hand wound: Reports sensation loss in R hand since amputation 6-8 weeks ago in a glove distribution. Continue wound care S/P Vancomycin Wound culture: MSSA Continue Cephalexin per ID: may need for 2 weeks: Started on 01/23 Ortho evaluated as well. Non operative 4th metacarpal fracture: Secondary to fall Appreciate Ortho recommendations Anemia: likely secondary to acute blood loss and partly dilutional from IVF S/P 2 units PRBCs Hb: 8.8 today Transfuse PRN PATRICIA on CKD IV Likely secondary to acute urinary retention and dehydration/Also on diuretics at home Cr now at baseline Continue Lasix. Resume metolazone upon discharge Resolved Acute urinary retention: Likely secondary to BPH and significant dehydration Resolved DM II: H/O neuropathy and vasculopathy continue ISS, Lantus Appreciate pharmacy consult help Will discontinue Glyburide for now. Follow up with PCP to discuss if needed to be resumed. 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 Cont home meds. Hold ASA in setting of hemothorax Lasix resumed. H/O CAD s/p stent placement for high grade LAD stenosis ASA on hold Hypothyroidism: continue Synthroid Gout: continue allopurinol Dysequilibrium: multifactorial: In setting of diabetic neuropathy with vasculopathy and likely autonomic dysfunction Needs rehab placement CT head:No acute intracranial findings Code Status: Full Code DVT Px: SCDs Disposition: Medically stable: Plan to discharge to [facility] today Follow up with (PCP) on 02/06/17 at 12:45pm Follow up with in 1 week as advised Follow up at wound care clinic in 1 week as advised Complete the antibiotic course as prescribed. Vital Signs: Date Time Temp Pulse Resp B/P Pulse Ox O2 Delivery O2 Flow Rate FiO2 02/01/17 10:16 36.6 69 16 97 Room Air 02/01/17 08:00 97 Room Air 2.0 02/01/17 07:16 36.6 69 16 139/71 97 Room Air 02/01/17 00:00 Room Air 01/31/17 23:14 36.8 73 18 112/57 95 Room Air 01/31/17 16:30 Room Air 01/31/17 15:17 36.8 68 18 101/59 96 Room Air 01/31/17 13:52 70 98 Lab Results: Results Past 24 Hours Test 01/31/17 16:22 01/31/17 20:18 02/01/17 07:05 02/01/17 07:09 Range/Units Bedside Glucose 200 149 86 70-99 mg/dl Hemoglobin 8.8 14.0-18.0 g/dL Hematocrit 27.6 42-52 % Test 02/01/17 09:40 Range/Units Bedside Glucose 156 70-99 mg/dl
--- NOTE | 2017-02-01 09:25 | Pharmacy Progress Note ---
Glycemic Control: Progress Nt Date of Service February 01, 2017. Scope Glycemic Pharmacist consulted by Dr Durbin on 02/01/17 for glycemic control and to write orders per [facility] inpatient glycemic control protocol. Objective Accuchecks BSG (last 24hrs): Test 01/31/17 11:11 01/31/17 16:22 01/31/17 20:18 02/01/17 07:09 Bedside Glucose 170 mg/dl (70-99) 200 mg/dl (70-99) 149 mg/dl (70-99) 86 mg/dl (70-99) HbA1c: Test 01/20/17 05:38 Hemoglobin A1c 8.2 % (4.5-5.6) H Recent Pertinent Medications Outpatient Anti-diabetic Regimen: * Levemir 80 units BID plus Regular insulin 3 units BIDM; glyburide 5 mg PO daily The patient is currently receiving: * Basal insulin: Levemir 40 units SQ qam + 35 units SQ qpm * Correctional Insulin: Novolog Correction per scale ACHS Goal Range: Low 110 mg/dL - High 140 mg/dL Correction Factor: 10 mg/dL/unit * Prandial insulin: Per carb ratio of 1 unit per 2.5 grams CHO consumed Risk Factors for Insulin Resistance: * Infection: R finger wound infection (vancomycin IV --> Keflex PO) * Recent Surgery: Pleurex cath due to hemothorax * Diet: type 2 diabetic diet Assessment & Plan ASSESSMENT: * ADA & AACE recommend a goal blood sugar range 140-180 mg/dl for the majority of critically ill & non-critically ill patients. However, more stringent targets may be selected in individual cases. Will utilize more stringent goal of 110-140mg/dl based on patient age & comorbidities. Additionally, tighter glycemic control is warranted to facilitate wound/infection healing. * Mr Koroma was admitted 01/19/17 for a fall with pleural effusion and rib fractures. 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 During his hospital stay the patient has received around 80-90 units of insulin per day. His previous hospital stay he required ~ 70 units/day. He has been requiring significantly more than this {but still less than outpatient dosing} during current admission. 01/31/17 * Patient is currently receiving ~150 units of insulin per day (156 units over the past 24 hours). Risk factors for insulin resistance remain constant. * BSGs ranging 153 - 187 over the past 24hrs * Fasting BSG improved today and at goal * Post prandial BSGs also improved - continue current parameters 02/01/17 * Fasting BSG continues to improve with increased am Lantus dose * BSGs have ranged from 86 to 200 mg/dL over the past 24 hours * Plan is to discharge patient today. See discharge recommendations below. PLAN FOR INPATIENT GLYCEMIC CONTROL: * Basal Insulin * Continue Lantus to 40units SQ in AM + 35 units SQ in PM * Bolus Insulin * Novolog insulin ACHS * Continue correction factor 10 mg/dl/unit * Continue carb ratio 1 unit per 2.5 grams CHO consumed * Continue goal range of Low 110 mg/dL - High 140 mg/dL RECOMMENDATIONS FOR DISCHARGE: * Mr Koroma appears to have adequate control of his blood sugars for his age and co-morbidities evidenced by A1c of 8.2 % (01/20/17). * Recommend continuing home dose of Levemir 80 units SQ BID and Regular insulin 3 units with meals. * Consider discontinuation of glyburide. This medication can contribute to prolonged severe hypoglycemia in elderly patients with changing renal function. * If glyburide is stopped, he will likely require more regular insulin with meals to cover post-prandial elevations. Patient will need to work with PCP to adjust regular insulin doses. * Please note that the plan above was derived based on current level of insulin resistance and hospital stress. These recommendations are appropriate for inpatient admission only. Plan of care upon discharge will need to be reassessed to avoid potential outpatient hypo/hyperglycemia. Thank you.
[2017-02-01] MEDS: INSULIN ASPART 100 UNITS/ML 3 ML PEN SC SCH ×2 (09:49→12:29)
[2017-02-01] MEDS ORDERED: ULT50X PO (10:05)
[2017-02-01] MEDS ORDERED: KFL500 PO (10:05)
--- NOTE | 2017-02-01 10:12 | Discharge Instructions ---
Discharge Instructions Date of Service February 01, 2017. Admission Reason for Admission: Hemothorax On Right Discharge Discharge Diagnosis / Problem: Right hemothorax with displaced rib fractures secondary to fall Discharge Goals Goal(s): Decrease discomfort, Improve function Activity Recommendations Activity Limitations: resume your previous activity Exercise/Sports Limitations: as tolerated . Instructions / Follow-Up Instructions / Follow-Up Follow up with (PCP) on 02/06/17 at 12:45pm Follow up with with chest X ray and for Pleurx Catheter removal as advised Follow up at wound care clinic in 1 week as advised Complete the antibiotic course as prescribed. Your Glyburide is discontinued. Please follow up with your doctor to discuss if needed to be resumed Current Hospital Diet Patient's current hospital diet: Diabetes Type 2 Diet, Low Sodium Diet (2gm Na) Discharge Diet Recommended Diet: Low Sodium Diet (2gm Na), Diabetes Type 2 Diet Pending Studies Studies pending at discharge: no Laboratory Results Hemoglobin A1c Test 01/20/17 05:38 Range/Units Estimated Average Glucose 189 mg/dl Hemoglobin A1c 8.2 H 4.5-5.6 % Medical Emergencies . Who to Call and When: Medical Emergencies: If at any time you feel your situation is an emergency, please call 911 immediately. . Non-Emergent Contact Non-Emergency issues call your: Primary Care Provider, Surgeon (CT surgery ), Specialist Call Non-Emergent contact if: you have a fever, your pain is not controlled, your pain is worsening, your pain is unusual for you, you have any medication questions If your bleeding, chest pain, Shortness of breath reoccurs . . "Provider Documentation" section prepared by Alexandr Lane. . VTE Core Measure Inpt VTE Proph given/why not?: Contraindicated
--- NOTE | 2017-02-01 10:15 | Discharge Summary ---
Discharge Summary Date of Service February 01, 2017. Discharge Summary Admission Date: January 19, 2017 at 08:18 Discharge Date: February 01, 2017 Discharge Disposition: Rehab Principal Diagnosis: Right hemothorax with displaced rib fractures secondary to fall Procedures: CT ABD: 1. Displaced right eighth through 12th rib fractures. 2. Large right hemothorax. 3. Partially calcified 2 cm left lower lobe nodule. This remains unchanged. CT chest: 1. Acute displaced fractures of the right eighth through 11th ribs 2. Large right-sided hemothorax 3. Stable 2 cm partially calcified left lower lobe pulmonary nodule. CT head: No acute intracranial findings Consultations: Neuro, ID, Ortho, CT surg Pending Studies/Follow-Up: Follow up with (PCP) on 02/06/17 at 12:45pm Follow up with with chest X ray and for Pleurx Catheter removal as advised Follow up at wound care clinic in 1 week as advised Complete the antibiotic course as prescribed. Your Glyburide is discontinued. Please follow up with your doctor to discuss if needed to be resumed Medication Reconciliation New Medications: Cephalexin Monohydrate (Cephalexin) 500 Mg Cap 500 MG PO QID for 5 Days, #20 CAP Tramadol HCl (Tramadol HCl) 50 Mg Tab 50 MG PO Q8H PRN for pain for 3 Days, #9 TAB Continued Medications: Allopurinol (Zyloprim) 300 Mg Tab 300 MG PO DAILY, TAB Aspirin (Aspirin Ec) 81 Mg Tab 81 MG PO DAILY Atorvastatin (Lipitor) 80 Mg Tab 80 MG PO DAILY, 0 Refills Furosemide (Lasix) 80 Mg Tab 80 MG PO BID, TAB Insulin Detemir (Levemir) 100 Units/Ml Inj 80 UNITS SQ BID Insulin Human Regular (Novolin R) 100 Units/1 Ml Inj 3 UNITS SQ BREAKFAST&JOHNIE MEALS TAKE 3 UNITS SQ BEFORE BREAKFAST AND EVENING MEALS. Isosorbide Mononitrate Ext Rel (Imdur Ext Rel) 30 Mg Ertab 15 MG PO QAM, TAB 1/2 TABLET DOSE Levothyroxine Sodium (Synthroid) 50 Mcg Tab 50 MCG PO DAILY, TAB Losartan Potassium (Cozaar) 25 Mg Tab 25 MG PO DAILY, TAB Metolazone (Zaroxolyn) 2.5 Mg Tab 2.5 MG PO WK, TAB TAKE ON SUNDAYS Metoprolol Succinate (Toprol Xl) 25 Mg Tab 25 MG PO BID, TAB Sertraline (Zoloft) 50 Mg Tab 100 MG PO DAILY, TAB Discontinued Medications: Glyburide (Diabeta) 5 Mg Tab 5 MG PO QAM, TAB Admission Information HPI (per Admitting provider): 66 yo M with multiple medical problems presents to the ER today with worsening shortness of breath and pain on his R anterior chest area after a fall two weeks ago. He was found to have a large R-sided hemothorax on CT scan. He states that at baseline he ambulates with a walker (he also has a prosthesis for ambulation with only one leg) and he lost his balance and fell in his bathroom hitting his R side on the sink. He reports having pain at the time but didn't want to come to the hospital because "I didn't know what they could do for me and I had already been in the hospital for a long time." He was admitted in Oct-Nov 2016 for septic shock 2/2 a necrotic finger wound which was ultimately amputated. He then went to [facility] for rehab. After he returned home he states that he slipped and fell backwards on his driveway hitting his head. He feels some issues with lightheadedness have been present since that time, although states that the lightheadedness is not a new thing necessarily. He denies headaches or visual changes. This fall was before the fall two weeks ago. He appears disheveled and unkempt in the ER and reports that he doesn't know what his blood sugars have been because he "can't find my meter." He reports that he doesn't know anything about the medications that he takes. He has multiple scabbed over wounds all over his legs and appears to have not had a shower in a few days. ROS reveals chest pain as above in the R anterior chest area, some SOB that has increased, and chronic diarrhea. He also reports intermittent lightheadedness, mostly with changing positions from sitting to standing. He denies headaches, visual changes, abdominal pain, nausea, vomiting. He reports some chronic neuropathy in his legs bilaterally up to his knees. He otherwise denies any symptoms. Physical Exam (per Admitting): GEN: WNWD, unkempt, in no acute distress, alert and appropriate HEENT: NC/AT, PERRL, normal sclerae, EOMI, MMM, pharynx non-acute CARDIO: reg rate, S1/2 heard without m/g/r LUNGS: CTA bilaterally, no crackles, rales or wheezes, good diaphragmatic excursion. No breath sounds auscultated at R base. ABD: soft, non-tender, non-distended, no rebound or guarding, +BS, protuberant abdomen EXTREMITY: s/p BTK amputee on L, legs are warm and well-perfused, no LE swelling or edema of L leg, 2+DP, multiple scab wounds present along leg with some immediate surrounding erythema but no cellulitis present NEURO: CN 2-12 intact grossly, decreased sensation in BL LEs to knees but otherwise intact throughout, no gross focal deficits. MUSC: 5/5 strength throughout, no focal deficits SKIN: warm and dry and wounds as above. Hospital Course Patient is a 66 yr male with h/o recent admission for septic shock 2/2 finger infection presents with dyspnea secondary to R hemothorax secondary to trauma 2 weeks ago. He is s/p thoracentesis with 1500cc out initially. Also had PATRICIA which resolved. PleurX catheter in place. Dyspnea and Chest pain secondary to R hemothorax with displaced rib fractures: S /P fall 2 weeks ago s/p thoracentesis on 01/19 with Pleurx catheter placement CT surgery is following Continue supportive care Hb stable Continue incentive spirometry. S/P tPA administered through PleurX on 01/23 ; repeat tPA administered on 01/28 Continue daily drainage of pleurex Repeat CXR on 01/28: no significant change Appreciate CT surgery help Repeat CXR: No significant change Diarrhea: Resolved Obtain stool studies if reoccurs Multiple Rib fractures: supportive care as above. R hand wound: Reports sensation loss in R hand since amputation 6-8 weeks ago in a glove distribution. Continue wound care S/P Vancomycin Wound culture: MSSA Continue Cephalexin per ID: may need for 2 weeks: Started on 01/23 Ortho evaluated as well. Non operative 4th metacarpal fracture: Secondary to fall Appreciate Ortho recommendations Anemia: likely secondary to acute blood loss and partly dilutional from IVF S/P 2 units PRBCs Hb: 8.8 today Transfuse PRN PATRICIA on CKD IV Likely secondary to acute urinary retention and dehydration/Also on diuretics at home Cr now at baseline Continue Lasix. Resume metolazone upon discharge Resolved Acute urinary retention: Likely secondary to BPH and significant dehydration Resolved DM II: H/O neuropathy and vasculopathy continue ISS, Jordynus Appreciate pharmacy consult help Will discontinue Glyburide for now. Follow up with PCP to discuss if needed to be resumed. 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 Cont home meds. Hold ASA in setting of hemothorax Lasix resumed. H/O CAD s/p stent placement for high grade LAD stenosis ASA on hold Hypothyroidism: continue Synthroid Gout: continue allopurinol Dysequilibrium: multifactorial: In setting of diabetic neuropathy with vasculopathy and likely autonomic dysfunction Needs rehab placement CT head:No acute intracranial findings Code Status: Full Code DVT Px: SCDs Disposition: Medically stable: Plan to discharge to [facility] today Follow up with (PCP) on 02/06/17 at 12:45pm Follow up with with chest X ray in 1 week as advised Follow up at wound care clinic in 1 week as advised Complete the antibiotic course as prescribed. Total time spent on discharge = 33 minutes This includes examination of the patient, discharge planning, medication reconciliation, and communication with other providers. Discharge Instructions Discharge Instructions Date of Service February 01, 2017. Admission Reason for Admission: Hemothorax On Right Discharge Discharge Diagnosis / Problem: Right hemothorax with displaced rib fractures secondary to fall Discharge Goals Goal(s): Decrease discomfort, Improve function Activity Recommendations Activity Limitations: resume your previous activity Exercise/Sports Limitations: as tolerated . Instructions / Follow-Up Instructions / Follow-Up Follow up with (PCP) on 02/06/17 at 12:45pm Follow up with with chest X ray and for Pleurx Catheter removal as advised Follow up at wound care clinic in 1 week as advised Complete the antibiotic course as prescribed. Your Glyburide is discontinued. Please follow up with your doctor to discuss if needed to be resumed Current Hospital Diet Patient's current hospital diet: Diabetes Type 2 Diet, Low Sodium Diet (2gm Na) Discharge Diet Recommended Diet: Low Sodium Diet (2gm Na), Diabetes Type 2 Diet Pending Studies Studies pending at discharge: no Laboratory Results Hemoglobin A1c Test 01/20/17 05:38 Range/Units Estimated Average Glucose 189 mg/dl Hemoglobin A1c 8.2 H 4.5-5.6 % Medical Emergencies . Who to Call and When: Medical Emergencies: If at any time you feel your situation is an emergency, please call 911 immediately. . Non-Emergent Contact Non-Emergency issues call your: Primary Care Provider, Surgeon (CT surgery ), Specialist Call Non-Emergent contact if: you have a fever, your pain is not controlled, your pain is worsening, your pain is unusual for you, you have any medication questions If your bleeding, chest pain, Shortness of breath reoccurs . . "Provider Documentation" section prepared by Alexandr Lane. . VTE Core Measure Inpt VTE Proph given/why not?: Contraindicated
[2017-02-01 10:16] VITALS: BP 139/71; PULSE 69; TEMP 36.6; O2SAT 97
--- NOTE | 2017-02-01 12:40 | Progress Note ---
Progress Note Date of Service February 01, 2017. Progress Note Pleurex removed without difficulty. Sterile dressing applied
--- NOTE | 2017-02-01 18:30 | SURGERY PROGRESS NOTE ---
DATE: 01/25/2017 SUBJECTIVE: Mr. Koroma was seen today. He still has some fluid on the right side; however, I think his lateral film looks pretty good. We removed his PleurX catheter at bedside. We will see him back in the office in a week with a chest x-ray.
[2017-06-28] MEDS ORDERED: CPR500 PO (09:54)
[2017-06-28] MEDS ORDERED: PLV75 PO (09:54)
[2017-06-28] MEDS ORDERED: AMOX1TAB43 PO (09:54)
[2017-06-28] MEDS ORDERED: MCRK20 PO (09:54)
== END 2017-02-01 14:05 | DRG 183 ==
LOC: ENRESERVDT → ENRESERVTM → EDBD 05:07 → C.EDA 05:08 → C.2E 08:18 → C.MS2W 01-22 20:01
PROVIDERS: ADMIT Hospitalist; ATTEND Internal Medicine
PROC: 0W9930Z Drainage of Right Pleural Cavity with Drainage Device, Percutaneous Approach (ICD-10-PCS; principal; 2017-01-19)
PROC: 0WP9X0Z Removal of Drainage Device from Right Pleural Cavity, External Approach (ICD-10-PCS; 2017-01-25)
PROC: 3E0L3GC Introduction of Other Therapeutic Substance into Pleural Cavity, Percutaneous Approach (ICD-10-PCS; 2017-01-28)
DX: S22.41XA Multiple fractures of ribs, right side, initial encounter for closed fracture (principal); S27.1XXA Traumatic hemothorax, initial encounter; T87.41 Infection of amputation stump, right upper extremity; I50.22 Chronic systolic (congestive) heart failure; J90 Pleural effusion, not elsewhere classified; N17.9 Acute kidney failure, unspecified; I13.0 Hypertensive heart and chronic kidney disease with heart failure and stage 1 through stage 4 chronic kidney disease, or unspecified chronic kidney disease; D62 Acute posthemorrhagic anemia; I42.0 Dilated cardiomyopathy; N18.4 Chronic kidney disease, stage 4 (severe); J91.8 Pleural effusion in other conditions classified elsewhere; S62.309A Unspecified fracture of unspecified metacarpal bone, initial encounter for closed fracture; Z95.810 Presence of automatic (implantable) cardiac defibrillator; I25.10 Atherosclerotic heart disease of native coronary artery without angina pectoris; E11.319 Type 2 diabetes mellitus with unspecified diabetic retinopathy without macular edema; F43.21 Adjustment disorder with depressed mood; E78.5 Hyperlipidemia, unspecified; M1A.9XX0 Chronic gout, unspecified, without tophus (tophi); Z95.5 Presence of coronary angioplasty implant and graft; Z89.512 Acquired absence of left leg below knee; Z86.14 Personal history of Methicillin resistant Staphylococcus aureus infection; E11.40 Type 2 diabetes mellitus with diabetic neuropathy, unspecified; E03.9 Hypothyroidism, unspecified; R91.1 Solitary pulmonary nodule; E11.21 Type 2 diabetes mellitus with diabetic nephropathy; N40.1 Benign prostatic hyperplasia with lower urinary tract symptoms; R33.8 Other retention of urine; E86.0 Dehydration; B95.61 Methicillin susceptible Staphylococcus aureus infection as the cause of diseases classified elsewhere; W18.12XA Fall from or off toilet with subsequent striking against object, initial encounter; Y92.002 Bathroom of unspecified non-institutional (private) residence as the place of occurrence of the external cause; Y83.8 Other surgical procedures as the cause of abnormal reaction of the patient, or of later complication, without mention of misadventure at the time of the procedure; Y83.5 Amputation of limb(s) as the cause of abnormal reaction of the patient, or of later complication, without mention of misadventure at the time of the procedure

== ENCOUNTER → 2017-02-02 | Outpatient (CLI) | payer BC, OTHER ==
[~2017-02-02] MED LIST changes: -ACET-1256 PO; +ALBU18002 INH; +ALLO100T PO; +AMOX1TAB43 PO; +CPR500 PO; -FURO-85 PO; +FURO80TA63 PO; -GLY/5 PO; +GLYB5TAB8 PO; -IMD/2 PO; -INSDGI SC; -INSDGI SQ; +KFL500 PO; -LACTCAP3 PO; +LVMI SQ; +LVMIPEN SC; +LVMIPUC SQ; +MCR5 PO; +MCRK20 PO; +MECL-91 PO; -MULT-513 PO; -NVLG SQ; +NVLRPUC SQ; -NYST100010 TD; +PLV75 PO; -SENN-65 PO; -SULF800T23 PO; +ULT50X PO; +ZLF/100 PO
[2017-02-02 10:21] LABS: BASO % 0.4 %; BASO ABS # 0.04 K/uL (0-0.2); EOS % 6.1 %; HEMATOCRIT 25.7 % (42-52); IG% 1.2 %; LYMPH % 19.5 %; LYMPH ABS # 1.93 K/uL (1.2-3.4); MEAN CELL VOLUME 86.5 fL (80-100); MEAN CORPUSCULAR HEMOGLOBIN 28.3 pg (25-34); MEAN CORPUSCULAR HGB CONC 32.7 g/dl (32-36); MEAN PLATELET VOLUME 8.7 fL (7.4-10.4); MONO % 6.4 %; NEUT % 66.4 %; PLATELET COUNT 433 K/uL (130-400); RED BLOOD COUNT 2.97 M/uL (4.7-6.1)
[2017-02-02 10:38] LABS: CALCIUM 9.2 mg/dl (8.5-10.1)
[2017-02-02 10:42] LABS: ALT/SGPT 18 U/L (12-78); BLOOD UREA NITROGEN 46 mg/dl (7-18); BUN/CREATININE RATIO 38.3 (10-20); CARBON DIOXIDE 28 mmol/L (21-32); CHLORIDE 105 mmol/L (98-107); GLUCOSE 105 mg/dl (70-99); POTASSIUM 3.6 mmol/L (3.5-5.1); SODIUM 141 mmol/L (136-145)
[2017-02-02 10:44] LABS: ALB/GLOB RATIO 0.6 (0.9-2); ALKALINE PHOSPHATASE 91 U/L (45-117); AST/SGOT 23 U/L (15-37)
[2017-02-02 11:15] LABS: COMPLETE YES
== END ==
LOC: C.LABCC 08:49
PROVIDERS: ATTEND Internal Medicine
DX: D64.9 Anemia, unspecified (principal); I25.10 Atherosclerotic heart disease of native coronary artery without angina pectoris; E11.9 Type 2 diabetes mellitus without complications; I50.9 Heart failure, unspecified

== ENCOUNTER → 2017-02-06 | Outpatient (CLI) | payer BC, OTHER ==
[2017-02-06 08:42] LABS: BASO % 0.5 %; BASO ABS # 0.04 K/uL (0-0.2); EOS % 6.4 %; HEMATOCRIT 27.3 % (42-52); IG% 1.1 %; LYMPH % 25.5 %; LYMPH ABS # 1.92 K/uL (1.2-3.4); MEAN CELL VOLUME 84.8 fL (80-100); MEAN CORPUSCULAR HEMOGLOBIN 27.3 pg (25-34); MEAN CORPUSCULAR HGB CONC 32.2 g/dl (32-36); MEAN PLATELET VOLUME 8.9 fL (7.4-10.4); MONO % 7.4 %; NEUT % 59.1 %; PLATELET COUNT 452 K/uL (130-400); RED BLOOD COUNT 3.22 M/uL (4.7-6.1); WHITE BLOOD COUNT 7.53 K/uL (4.8-10.8)
[2017-02-06 09:00] LABS: COMPLETE YES
--- NOTE | 2017-02-08 13:27 | CODING QUERY NO DIAGNOSIS ---
TREATMENT RENDERED WITHOUT A DIAGNOSIS 50 To promote full compliance with coding requirements relating to patient care, physician participation is requested in all cases of exhibits coordinator uncertainty. Please assist us with providing a diagnosis/symptom for the test(s) below: A diagnosis/symptom was not documented on your Order. A valid diagnosis/symptom is required to bill all insurances. Please remember that we are unable to code a diagnosis of rule out, probable, possible, questionable, or suspected. DOS 02/06/17 Tests that require a diagnosis: * CBC w/AUTO DIFF DIAGNOSIS: Provider Signature: Date: Thank you Mee Welch [facility] Information Management Once completed, please kindly fax back to [phone] For questions please call [phone]
== END ==
LOC: C.LABCC 07:53
PROVIDERS: ATTEND Internal Medicine
DX: D64.9 Anemia, unspecified (principal)

== ENCOUNTER 2017-03-27 05:27 | Emergency (ER) | payer BC, OTHER ==
[~2017-03-27] VITALS: Ht 177.8 cm; Wt 120.0 kg
[~2017-03-27 05:27] MED LIST changes: -ALBU18002 INH; -ALLO100T PO; -AMOX1TAB43 PO; -CPR500 PO; -GLYB5TAB8 PO; -LVMIPEN SC; -LVMIPUC SQ; -MCR5 PO; -MCRK20 PO; -MECL-91 PO; -METO-478 PO; +METO1TAB31 PO; -PLV75 PO; -ZLF/100 PO
[2017-03-27 05:30] VITALS: TEMP 36.4; Ht 177.8 cm; Wt 120.0 kg
--- NOTE | 2017-03-27 05:53 | EMERGENCY ROOM VISIT NOTE ---
History Report prepared by Airam: Zeke Godinez Under the Supervision of: Dr. Matias Ramos M.D. First contact with patient: 05:36 Chief Complaint: HYPOGLYCEMIA Stated Complaint: hypoglycemia History of Present Illness The patient is a 66 year old male who presents to the Emergency Room via EMS with complaints of constant hypoglycemia occurring prior to arrival. Per the EMS , the patient was found this morning by his on the floor, and his blood sugar was 31. When the EMS arrived they gave him 1mg Glucagon IM, and his sugar went up to 135, and then in the ED it was measured at 84. Source of History: patient Onset: prior to arrival Position: other (global) Quality: other (hypoglycemia) Timing: constant Review of Systems See HPI for pertinent positives & negatives. A total of 10 systems reviewed and were otherwise negative. Past Medical & Surgical Medical Problems: (1) Abnormal EKG (2) Acute encephalopathy (3) Adjustment disorder with depressed mood (4) PATRICIA (acute kidney injury) (5) Amputation of right index finger (6) Bacteremia due to Gram-positive bacteria (7) Biventricular ICD (implantable cardioverter-defibrillator) in place (8) CAD (coronary artery disease) (9) CHF (congestive heart failure) (10) Chronic systolic CHF (congestive heart failure) (11) Diabetic retinopathy (12) DM type 2 (diabetes mellitus, type 2) (13) DVT prophylaxis (14) Dyslipidemia (15) Elevated troponin I measurement (16) Gout (17) H/O hematuria (18) H/O: rheumatic fever (19) History of MRSA infection (20) HTN (hypertension) (21) Hypothyroidism (22) Lactic acidemia (23) Lung nodule (24) MSSA bacteremia (25) Need for intravenous access (26) Neuropathy (27) Nonischemic cardiomyopathy (28) Wound dehiscence Surgical Problems: (1) H/O amputation of lesser toe (2) History of amputation of finger of left hand (3) History of implantable cardioverter-defibrillator (ICD) placement (4) Hx of BKA (5) S/P cardiac cath (6) S/P coronary artery stent placement Family History Diabetes mellitus MOTHER FH: CAD (coronary artery disease) FATHER Social History Smoking Status: Never Smoker Drug Use: none Marital Status: Housing Status: lives with family Occupation Status: disabled Current/Historical Medications Scheduled Allopurinol (Zyloprim), 100 MG PO DAILY Aspirin (Aspirin Ec), 81 MG PO DAILY Atorvastatin (Lipitor), 80 MG PO DAILY Furosemide (Lasix), 80 MG PO BID Glyburide (Glyburide), 5 MG PO DAILY Insulin Detemir (Levemir), 80 UNITS SQ BID Insulin Human Regular (Novolin R), 3 UNITS SQ BREAKFAST&JOHNIE MEALS Isosorbide Mononitrate Ext Rel (Imdur Ext Rel), 15 MG PO QAM Levothyroxine Sodium (Synthroid), 50 MCG PO DAILY Losartan Potassium (Cozaar), 25 MG PO DAILY Metolazone (Zaroxolyn), 2.5 MG PO WK Metoprolol Succinate (Toprol Xl), 25 MG PO BID Sertraline HCl (Sertraline HCl), 100 MG PO DAILY Allergies Coded Allergies: Gemfibrozil (Verified Allergy, Unknown, 10/23/16) Physical Exam Vital Signs Date Time Temp Pulse Resp B/P (MAP) Pulse Ox O2 Delivery O2 Flow Rate FiO2 03/27/17 06:41 81 20 122/69 96 Room Air 03/27/17 05:37 69 03/27/17 05:30 36.4 82 22 158/148 96 Room Air Physical Exam GENERAL: Patient is chronically unwell appearing. No distress. HEENT: Injected left conjunctiva which is chronic. No acute trauma, normocephalic atraumatic, mucous membranes moist, no nasal congestion, no scleral icterus. NECK: No stridor, no adenopathy, no meningismus, trachea is midline. LUNGS: No dyspnea. Clear to auscultation and equal bilaterally. No wheeze, no rhonchi. HEART: Regular rate and rhythm. No murmurs, rubs, gallops appreciated. ABDOMEN: Soft, nontender, bowel sounds positive, no masses appreciated, no peritonitis. BACK: No midline tenderness, no CVA tenderness EXTREMITIES: BKA of the left leg. Chronic skin ulcers and breakdown of bilateral lower extremities. Multiple missing digits. Normal motion all extremities, no cyanosis, no edema. NEUROLOGIC: Alert and oriented, no acute motor or sensory deficits, no focal weakness, cranial nerves grossly intact. SKIN: Abrasion of the right knee. Two sutures in the posterior right back. No rash, no jaundice, no diaphoresis. Medical Decision & Procedures Laboratory Results Test 03/27/17 07:27 Bedside Glucose 84 mg/dl (70-99) Laboratory results as reviewed by me. ECG Indication: other (hypoglycemia) Rate (beats per minute): 76 Rhythm: normal sinus Findings: no acute ischemic change, no ectopy, other (QTC 513) ED Course 0536: The patient was evaluated in room B12. A complete history and physical exam was performed. 0610: I reevaluated the patient, and he is fully awake, alert, and oriented. He declines any further testing. 0730: Reevaluated the patient. Discussed results and discharge instructions: He verbalized understanding and agreement. The patient is ready for discharge. Medical Decision Differential: Sepsis, Infectious (UTI/Pneumonia/Meningitis/etc), Metabolic/ Electrolyte Abnormality, Cardiac, Hepatic, Endocrine, Toxicologic, Neurologic, amongst other pathologies entertained. Very pleasant 66 yr old male with episode of hypoglycemia this morning now resolved. Eating here without complaint and BSG staying stable. He declines testing and states he feels fine. I stressed importance of monitoring BSG at home closely over next 24 hours. He will be going home with his . Admits he may not have eaten as much as usual last night but took his normal dose insulin. Denies any accidental overdose. Denies fevers, infectious symptoms. Abrasion to right knee without evidence of infection. EKG unremarkable and he has no cardiac symptoms nor other complaints for that matter. Medication Reconcilliation Current Medication List: was personally reviewed by me Blood Pressure Screening Patient's blood pressure: Normal blood pressure Impression Primary Impression: Hypoglycemia Scribe Attestation The scribe's documentation has been prepared under my direction and personally reviewed by me in its entirety. I confirm that the note above accurately reflects all work, treatment, procedures, and medical decision making performed by me. Departure Information Dispostion Home / Self-Care Patient Instructions Hypoglycemia, My [facility] Additional Instructions You must monitor you blood sugar very closely over the next day. You must have someone without for the next 24 hours.
[2017-03-27] MEDS ORDERED: ZLF/100 PO (06:05)
[2017-03-27] MEDS ORDERED: MCR5 PO (06:05)
[2017-03-27] MEDS ORDERED: ALLO100T PO (06:07)
[2017-03-27 08:24] VITALS: BP 113/83; PULSE 78; O2SAT 95
[2017-03-29] MEDS ORDERED: LVMIPEN SC (16:31)
[2017-03-29] MEDS ORDERED: LVMIPUC SQ (17:32)
== END 2017-03-27 08:29 | disposition home or self-care (01) ==
LOC: EDBD 05:27 → C.EDB 05:29
DX: E16.2 Hypoglycemia, unspecified (principal); I10 Essential (primary) hypertension; E11.319 Type 2 diabetes mellitus with unspecified diabetic retinopathy without macular edema; E78.5 Hyperlipidemia, unspecified; I50.9 Heart failure, unspecified; I25.10 Atherosclerotic heart disease of native coronary artery without angina pectoris; E03.9 Hypothyroidism, unspecified; M10.9 Gout, unspecified; G93.40 Encephalopathy, unspecified; Z86.14 Personal history of Methicillin resistant Staphylococcus aureus infection; Z89.029 Acquired absence of unspecified finger(s); Z98.61 Coronary angioplasty status; Z95.810 Presence of automatic (implantable) cardiac defibrillator; Z79.82 Long term (current) use of aspirin; Z79.4 Long term (current) use of insulin; Z79.899 Other long term (current) drug therapy; Z88.8 Allergy status to other drugs, medicaments and biological substances; Z83.3 Family history of diabetes mellitus; Z82.49 Family history of ischemic heart disease and other diseases of the circulatory system

== ENCOUNTER 2017-03-27 11:55 | Inpatient (IN) | payer BC, OTHER ==
[~2017-03-27] VITALS: Ht 177.8 cm; Wt 120.0 kg
[~2017-03-27 11:55] MED LIST changes: +ALLO100T PO; +MCR5 PO; +ZLF/100 PO
[2017-03-27 12:39] LABS: BASO % 0.2 %; BASO ABS # 0.02 K/uL (0-0.2); COMPLETE YES; EOS % 0.6 %; HEMATOCRIT 34.1 % (42-52); IG% 0.4 %; LYMPH % 7.6 %; LYMPH ABS # 0.86 K/uL (1.2-3.4); MEAN CELL VOLUME 79.1 fL (80-100); MEAN CORPUSCULAR HEMOGLOBIN 25.8 pg (25-34); MEAN CORPUSCULAR HGB CONC 32.6 g/dl (32-36); MEAN PLATELET VOLUME 8.7 fL (7.4-10.4); MONO % 4.7 %; NEUT % 86.5 %; PLATELET COUNT 299 K/uL (130-400); RED BLOOD COUNT 4.31 M/uL (4.7-6.1); WHITE BLOOD COUNT 11.39 K/uL (4.8-10.8)
[2017-03-27 12:48] LABS: BUN/CREATININE RATIO 25.6 (10-20); CALCIUM 9.5 mg/dl (8.5-10.1); CREATININE 1.3 mg/dl (0.60-1.40); POTASSIUM 3.7 mmol/L (3.5-5.1)
--- NOTE | 2017-03-27 12:53 | EMERGENCY ROOM VISIT NOTE ---
History Report prepared by Airam: Fatoumata Grossman Under the Supervision of: Dr. Mick Rosas M.D. First contact with patient: 12:22 Chief Complaint: HYPOGLYCEMIA Stated Complaint: HYPOGLYCEMIA Nursing Triage Summary: Patient arrived by ambulance ALS from home after his blood sugar dropped again at home. Patient awake alert and oriented on arrival to ED. Per medic patient was found unresponsive at home with blood glucose of 34 states they were unable to gain IV access so an I/O was established D10 administered patients bsg on arrival to ED 131. 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 Per EMS, the patient was found unresponsive at home with a BSG of 24. Paramedics administered D10 en route and on arrival in the ED the patient's BSG was 131. The patient does not have any complaints at this time. He denies abdominal pain. He was just seen in the ED earlier this morning for hypotension. He states that he has not taken any extra insulin. He has not eaten anything since he was discharged from the ED this morning. 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 A total of 10 systems reviewed and were otherwise negative. Past Medical & Surgical Medical Problems: (1) Acute encephalopathy (2) Adjustment disorder with depressed mood (3) Biventricular ICD (implantable cardioverter-defibrillator) in place (4) CAD (coronary artery disease) (5) CHF (congestive heart failure) (6) Chronic systolic CHF (congestive heart failure) (7) Diabetic retinopathy (8) DM type 2 (diabetes mellitus, type 2) (9) Dyslipidemia (10) Gout (11) HTN (hypertension) (12) Hypothyroidism (13) Lung nodule (14) Neuropathy due to type 2 diabetes mellitus (15) Nonischemic cardiomyopathy Surgical Problems: (1) History of amputation of finger of left hand (2) History of implantable cardioverter-defibrillator (ICD) placement (3) Hx of BKA (4) S/P coronary artery stent placement Family History Diabetes mellitus MOTHER FH: CAD (coronary artery disease) FATHER Social History Smoking Status: Never Smoker Drug Use: none Marital Status: Housing Status: lives with family Occupation Status: disabled Current/Historical Medications Scheduled Allopurinol (Zyloprim), 300 MG PO DAILY Aspirin (Aspirin Ec), 81 MG PO DAILY Atorvastatin (Lipitor), 80 MG PO DAILY Furosemide (Lasix), 80 MG PO BID Glyburide (Glyburide), 5 MG PO DAILY Insulin Detemir (Levemir), 80 UNITS SQ BID Insulin Human Regular (Novolin R), 3 UNITS SQ BREAKFAST&JOHNIE MEALS Isosorbide Mononitrate Ext Rel (Imdur Ext Rel), 15 MG PO QAM Levothyroxine Sodium (Synthroid), 50 MCG PO DAILY Losartan Potassium (Cozaar), 25 MG PO DAILY Metolazone (Zaroxolyn), 2.5 MG PO WK Metoprolol Succinate (Toprol Xl), 25 MG PO BID Sertraline HCl (Sertraline HCl), 100 MG PO DAILY Allergies Coded Allergies: Gemfibrozil (Verified Allergy, Unknown, 10/23/16) Physical Exam Vital Signs Date Time Temp Pulse Resp B/P (MAP) Pulse Ox O2 Delivery O2 Flow Rate FiO2 03/27/17 16:07 85 03/27/17 15:15 83 18 147/77 100 Room Air 03/27/17 14:10 80 18 134/81 98 Nasal Cannula 2.0 03/27/17 12:48 75 137/90 76 148/78 03/27/17 12:30 94 Room Air 03/27/17 12:30 95 Room Air 03/27/17 12:06 36.6 81 20 144/75 94 Nasal Cannula 2.0 03/27/17 12:03 82 Physical Exam GENERAL: Patient is a healthy-appearing well-nourished 66 year old male HEAD: Normocephalic atraumatic EYES: Ocular movements intact pupils equal and react to light OROPHARYNX mucous membranes are moist no exudates present no erythema or edema present NECK: Supple no nuchal rigidity CHEST: Good equal expansion LUNGS: Clear and equal to auscultation CARDIAC: Normal S1 and S2 ABDOMEN: Soft nontender no guarding BACK: No CVA tenderness EXTREMITIES: No pain upon palpation normal muscle strength in all groups no clubbing cyanosis or edema NEURO: Patient is following commands and answering questions appropriately. Alert and oriented x3 Cranial Nerves 2-12 grossly intact Medical Decision & Procedures ER Provider Diagnostic Interpretation: Radiology results as stated below per my review and radiologist interpretation: CHEST ONE VIEW PORTABLE HISTORY: 66 years-old Male Pt c/o hypoglycemia COMPARISON: 01/31/2017 TECHNIQUE: Portable upright AP view of the chest FINDINGS: Cardiac silhouette is again mildly enlarged. Left pectoral pacer/defibrillator appears unchanged with leads intact. There is no pneumothorax. There is improved aeration of the right lung base with persistent blunting of the right costophrenic angle. The previously noted right pleural catheter appears to been removed. Fractures of the lateral right eighth and ninth ribs redemonstrated which are again mildly displaced. There is prominent vascular congestion with background interstitial coarsening. There are hazy right greater than left opacities present. IMPRESSION: 1. Interval removal of previously noted right sided pleural catheter with decreased size of right pleural effusion. 2. There is also improved aeration of the right lung base. 3. Mild pulmonary vascular congestion with right greater than left basilar opacities suggesting atelectasis. The above report was generated using voice recognition software. It may contain grammatical, syntax or spelling errors. Electronically signed by: Rolan Patterson M.D. 03/27/2017 1:33 PM Dictated Date/Time: 03/27/2017 1:30 PM Laboratory Results Test 03/27/17 12:10 Total Bilirubin 0.6 mg/dl (0.2-1) Direct Bilirubin 0.2 mg/dl (0-0.2) Aspartate Amino Transf (AST/SGOT) 20 U/L (15-37) Alanine Aminotransferase (ALT/SGPT) 16 U/L (12-78) Alkaline Phosphatase 108 U/L (45-117) Total Creatine Kinase 129 U/L (39-308) Creatine Kinase MB 4.9 ng/ml (0.5-3.6) Creatine Kinase MB Ratio 3.8 (0-3.0) Troponin I 0.024 ng/ml (0-0.045) Total Protein 8.0 gm/dl (6.4-8.2) Albumin 3.2 gm/dl (3.4-5.0) Thyroid Stimulating Hormone (TSH) 1.760 uIu/ml (0.300-4.500) Labs reviewed by ED physician. Medications Administered Medications (Trade) Dose Ordered Sig/Ifeanyi Route Start Time Stop Time Status Last Admin Dose Admin Sodium Chloride 1,000 ml @ 999 mls/hr Q1H1M STAT IV 03/27/17 12:56 03/27/17 13:56 DC 03/27/17 13:11 999 MLS/HR ECG Indication: weakness Rate (beats per minute): 74 Rhythm: sinus rhythm Findings: PVC, other (old inferior infarct) ED Course 1222: Past medical records reviewed. The patient was evaluated in room A12B. A complete history and physical examination was performed. 1256: NSS 100 ml @ 999 mls/hr IV 1435: I reassessed the patient at this time. He is feeling better and resting comfortably. I discussed the results and treatment plan with the patient. I answered all pertaining questions that he had. He expressed understanding and verbalized agreement. 1509: I spoke with CECI Diop. We discussed the patients case. The patient will be evaluated by the [facility] for further management. Medical Decision Etiologies such as metabolic, infection, hypo/hyperglycemia, electrolyte abnormalities, cardiac sources, intracerebral event, toxicologic, neurologic, as well as others were entertained. This is a 66-year-old male who presents emergency department complaining of hypoglycemia. The second time the patient had a hypoglycemic episode past 24 hours. Based on this an IV was established and laboratory work was drawn. The patient had an IO placed by EMS so he could receive dextrose. Repeat examination revealed improvement in the patient's symptoms. I do not have an explanation for the patient's elevation in his white blood count cell count however I did discuss admission with the patient which she was agreeable to. Patient was in agreement with the treatment plan. Medication Reconcilliation Current Medication List: was personally reviewed by me Blood Pressure Screening Patient's blood pressure: Elevated blood pressure Blood pressure disposition: Referred to PCP Consults Time Called: 1506 Consulting Physician: CECI Diop Returned Call: 1504 I spoke with CECI Diop. We discussed the patients case. The patient will be evaluated by the [facility] for further management. Impression Primary Impression: Hypoglycemia Scribe Attestation The scribe's documentation has been prepared under my direction and personally reviewed by me in its entirety. I confirm that the note above accurately reflects all work, treatment, procedures, and medical decision making performed by me. Departure Information Dispostion Being Evaluated By Hospitalist Referrals No Doctor, Assigned (PCP) Patient Instructions My [facility]
[2017-03-27] MEDS ORDERED: SODIUM CHLORIDE 0.9% 1000ML 1,000 ML IV STA (12:56)
[2017-03-27 12:58] LABS: CKMB/CK RATIO 3.8 (0-3.0); THYROID STIMULATING HORMONE 1.76 uIu/ml (0.300-4.500)
--- NOTE | 2017-03-27 13:35 | DIAGNOSTIC IMAGING REPORT ---
CHEST ONE VIEW PORTABLE HISTORY: 66 years-old Male Pt c/o hypoglycemia COMPARISON: 01/31/2017 TECHNIQUE: Portable upright AP view of the chest FINDINGS: Cardiac silhouette is again mildly enlarged. Left pectoral pacer/defibrillator appears unchanged with leads intact. There is no pneumothorax. There is improved aeration of the right lung base with persistent blunting of the right costophrenic angle. The previously noted right pleural catheter appears to been removed. Fractures of the lateral right eighth and ninth ribs redemonstrated which are again mildly displaced. There is prominent vascular congestion with background interstitial coarsening. There are hazy right greater than left opacities present. IMPRESSION: 1. Interval removal of previously noted right sided pleural catheter with decreased size of right pleural effusion. 2. There is also improved aeration of the right lung base. 3. Mild pulmonary vascular congestion with right greater than left basilar opacities suggesting atelectasis. The above report was generated using voice recognition software. It may contain grammatical, syntax or spelling errors. Electronically signed by: Rolan Patterson M.D. 03/27/2017 1:33 PM Dictated Date/Time: 03/27/2017 1:30 PM
[2017-03-27] MEDS ORDERED: GLUCAGON FOR INJ 1 MG VIAL SQ PRN (16:30)
[2017-03-27] MEDS ORDERED: ACETAMINOPHEN 325 MG TAB PO PRN (16:30)
[2017-03-27] MEDS ORDERED: GLUCOSE 10 TABS/TUBE PO PRN (16:30)
[2017-03-27] MEDS ORDERED: GLUCOSE 40% GEL 15 GM TUBE PO PRN (16:30)
[2017-03-27] MEDS ORDERED: ONDANSETRON INJ 2 MG/ML 2 ML VIAL IV PRN (16:30)
[2017-03-27] MEDS ORDERED: DEXTROSE 50% 50 ML SYR IV PRN (16:30)
[2017-03-27] MEDS ORDERED: IV FLUIDS COMPLETED PRN (16:45)
--- NOTE | 2017-03-27 17:36 | History and Physical ---
History & Physical Date & Time of Service: Mar 27, 2017 at 17:10 Chief Complaint: Hypoglycemia Primary Care Physician: No Doctor, Assigned History of Present Illness Source: patient, partner This is a 66yo M with a PMH of DM II with CKD, CAD s/p stent in 2013, ischemic cardiomyopathy (s/p AICD), systolic CHF (class III) and HTN who presents with two hypoglycemic episodes in the past 24 hours. Previously this AM (around 5am) , patient was found unresponsive on the floor by his partner and EMS was called. BG was 31, glucagon was given en route to the hospital and BG was back up to normal range when checked in ED. Patient was discharged home. Patient was brought back to ED around noon today after he was found unresponsive on the floor again. EMS found BG of 34, gave D10 and BG was back to 131 at ED. Patient states that all confusion, sweating and lethargy has resolved now that his blood sugar is back in normal range. States that he has been eating and drinking normally at home and taking insulin accordingly. Has not seen his PCP for 6 months. Endorses SOB x 2 weeks (which is relieved by his inhaler) and chronic numbness/tingling in BLE. Denies any dizziness, confusion, headache, cough, CP, orthopnea, PND, nausea/vomiting or MSK pain. Past Medical/Surgical History Medical Problems: (1) Adjustment disorder with depressed mood Status: Chronic (2) Biventricular ICD (implantable cardioverter-defibrillator) in place Status: Chronic (3) CAD (coronary artery disease) Permanent Comment: s/p stent to LAD in 04/2014 Status: Chronic (4) CHF (congestive heart failure) Status: Chronic (5) Chronic systolic CHF (congestive heart failure) Permanent Comment: echo 10/08/14- LV cavity size moderately enlarged, mild concentric LVH, diffuse moderate LV hypokinesis with superimposed more severe hypokinesis/akinesis involving the mid and apical inferior wall, anterior septum , and LV apex. LV apex is akinetic. LV EF = 30%, septal motion abnormal consistent with intrventricular conduction delay, LV diastolic function is abnormal, mild mitral regurgitation Status: Chronic (6) Diabetic retinopathy Status: Chronic (7) DM type 2 (diabetes mellitus, type 2) Status: Chronic (8) Dyslipidemia Status: Chronic (9) Gout Status: Chronic (10) HTN (hypertension) Status: Chronic (11) Hypothyroidism Status: Chronic (12) Lung nodule Status: Chronic (13) Neuropathy due to type 2 diabetes mellitus Status: Chronic (14) Nonischemic cardiomyopathy Status: Chronic Surgical Problems: (1) History of amputation of finger of left hand Status: Chronic (2) History of implantable cardioverter-defibrillator (ICD) placement Status: Chronic (3) Hx of BKA Permanent Comment: left Status: Chronic (4) S/P coronary artery stent placement Permanent Comment: CLAUDINE to LAD in 04/2014 Status: Chronic Family History Diabetes mellitus MOTHER FH: CAD (coronary artery disease) FATHER Social History Smoking Status: Never Smoker Alcohol Use: none Drug Use: none Marital Status: Housing status: lives with significant other Occupational Status: disabled Immunizations History of Influenza Vaccine: Yes Influenza Vaccine Date: Jun 27, 2015 History of Tetanus Vaccine?: Yes Tetanus Immunization Date: Aug 24, 2010 History of Pneumococcal: Yes Pneumococcal Date: Jul 03, 1995 History of Hepatitis B Vaccine: No Multi-Drug Resistant Organisms History of MDRO: Yes Type of MDRO: MRSA Allergies Coded Allergies: Gemfibrozil (Verified Allergy, Unknown, 10/23/16) Home Medications Scheduled Allopurinol (Zyloprim), 300 MG PO DAILY Aspirin (Aspirin Ec), 81 MG PO DAILY Atorvastatin (Lipitor), 80 MG PO DAILY Furosemide (Lasix), 80 MG PO BID Glyburide (Glyburide), 5 MG PO DAILY Insulin Detemir (Levemir), 80 UNITS SQ BID Insulin Human Regular (Novolin R), 3 UNITS SQ [employer] Isosorbide Mononitrate Ext Rel (Imdur Ext Rel), 15 MG PO QAM Levothyroxine Sodium (Synthroid), 50 MCG PO DAILY Losartan Potassium (Cozaar), 25 MG PO DAILY Metolazone (Zaroxolyn), 2.5 MG PO WK Metoprolol Succinate (Toprol Xl), 25 MG PO BID Sertraline HCl (Sertraline HCl), 100 MG PO DAILY Review of Systems Ten systems reviewed and negative except as noted in the HPI. Physical Exam Vital Signs Date Time Temp Pulse Resp B/P (MAP) Pulse Ox O2 Delivery O2 Flow Rate FiO2 03/27/17 16:43 87 18 153/74 100 Room Air 03/27/17 16:07 85 03/27/17 15:15 83 18 147/77 100 Room Air 03/27/17 14:10 80 18 134/81 98 Nasal Cannula 2.0 03/27/17 12:48 75 137/90 76 148/78 03/27/17 12:30 94 Room Air 03/27/17 12:30 95 Room Air 03/27/17 12:06 36.6 81 20 144/75 94 Nasal Cannula 2.0 03/27/17 12:03 82 General Appearance: WD/WN, no apparent distress, + obese Head: normocephalic, atraumatic Eyes: normal inspection, + pertinent finding (L scleral injection with clear drainage. Patient scratched himself. No pain or itching.) ENT: normal ENT inspection, hearing grossly normal, pharynx normal Neck: supple, no adenopathy, thyroid normal Respiratory/Chest: chest non-tender, lungs clear, normal breath sounds, no respiratory distress, no accessory muscle use Cardiovascular: regular rate, rhythm, normal peripheral pulses Abdomen/GI: normal bowel sounds, non tender, soft, no organomegaly Extremities/Musculoskelatal: normal inspection, normal capillary refill, no pedal edema, + pertinent finding (L BKA ) Neurologic/Psych: still operator helper II-XII nml as tested, no motor/sensory deficits, alert, normal mood/affect, oriented x 3 Skin: normal color, warm/dry, + pertinent finding (Multiple scabbed lesions on R leg. ) Lymphatic: no adenopathy Diagnostics Laboratory Results Results Past 24 Hours Test 03/27/17 11:59 03/27/17 12:10 03/27/17 15:08 Range/Units Bedside Glucose 131 129 70-99 mg/dl White Blood Count 11.39 4.8-10.8 K/uL Red Blood Count 4.31 4.7-6.1 M/uL Hemoglobin 11.1 14.0-18.0 g/dL Hematocrit 34.1 42-52 % Mean Corpuscular Volume 79.1 80-100 fL Mean Corpuscular Hemoglobin 25.8 25-34 pg Mean Corpuscular Hemoglobin Concent 32.6 32-36 g/dl Platelet Count 299 130-400 K/uL Mean Platelet Volume 8.7 7.4-10.4 fL Neutrophils (%) (Auto) 86.5 % Lymphocytes (%) (Auto) 7.6 % Monocytes (%) (Auto) 4.7 % Eosinophils (%) (Auto) 0.6 % Basophils (%) (Auto) 0.2 % Neutrophils # (Auto) 9.86 1.4-6.5 K/uL Lymphocytes # (Auto) 0.86 1.2-3.4 K/uL Monocytes # (Auto) 0.53 0.11-0.59 K/uL Eosinophils # (Auto) 0.07 0-0.5 K/uL Basophils # (Auto) 0.02 0-0.2 K/uL RDW Standard Deviation 43.3 36.4-46.3 fL RDW Coefficient of Variation 15.1 11.5-14.5 % Immature Granulocyte % (Auto) 0.4 % Immature Granulocyte # (Auto) 0.05 0.00-0.02 K/uL Sodium Level 139 136-145 mmol/L Potassium Level 3.7 3.5-5.1 mmol/L Chloride Level 104 98-107 mmol/L Carbon Dioxide Level 28 21-32 mmol/L Anion Gap 7.0 3-11 mmol/L Blood Urea Nitrogen 33 7-18 mg/dl Creatinine 1.30 0.60-1.40 mg/dl Est Creatinine Clear Calc Drug Dose 72.6 ml/min Estimated GFR () 65.9 Estimated GFR (Non- 56.9 BUN/Creatinine Ratio 25.6 10-20 Random Glucose 120 70-99 mg/dl Calcium Level 9.5 8.5-10.1 mg/dl Total Bilirubin 0.6 0.2-1 mg/dl Direct Bilirubin 0.2 0-0.2 mg/dl Aspartate Amino Transf (AST/SGOT) 20 15-37 U/L Alanine Aminotransferase (ALT/SGPT) 16 12-78 U/L Alkaline Phosphatase 108 45-117 U/L Total Creatine Kinase 129 39-308 U/L Creatine Kinase MB 4.9 0.5-3.6 ng/ml Creatine Kinase MB Ratio 3.8 0-3.0 Troponin I 0.024 0-0.045 ng/ml Total Protein 8.0 6.4-8.2 gm/dl Albumin 3.2 3.4-5.0 gm/dl Thyroid Stimulating Hormone (TSH) 1.760 0.300-4.500 uIu/ml Diagnostic Radiology CXR 03/27/17: IMPRESSION: 1. Interval removal of previously noted right sided pleural catheter with decreased size of right pleural effusion. 2. There is also improved aeration of the right lung base. 3. Mild pulmonary vascular congestion with right greater than left basilar opacities suggesting atelectasis. EKG Sinus rhythm with occasional Premature ventricular complexes Left axis deviation Low voltage QRS Possible Anterior infarct (cited on or before 19-JAN-2017) Inferior infarct (cited on or before 19-JAN-2017) Nonspecific T wave abnormality Abnormal ECG When compared with ECG of 27-MAR-2017 06:11, (unconfirmed) Premature ventricular complexes are now Present Impression Assessment and Plan This is a 66yo M with a PMH of DM II with CKD, CAD s/p stent in 2013, ischemic cardiomyopathy (s/p AICD), systolic CHF (class III) and HTN who presents with two hypoglycemic episodes in the past 24 hours. Hypoglycemia: resolved -S/p 2 symptomatic hypoglycemic episodes today with BG in the 30s. Resolved after EMS gave glucagon/D10 -BG has remained in normal range since admission -Consulted pharm for help with glycemic control -On SSI with BG checks -Consult placed for diabetes education -Hgb a1c ordered Shortness of breath: -Sub-acute; present for 2 weeks. Vitals are stable. Is relieved with use of Proair inhaler. -No evidence of a CHF exacerbation. Patient is euvolemic and there is not evidence to suggest it on CXR. -CXR shows improved lung function of R lung s/p R hemothorax diagnosis in late January 2017. Atelectasis present bilaterally (R>L) -SOB likely 2/2 deconditioning after previous admission. -PT/OT consults placed for strengthening prior to discharge. -Incentive spirometry ordered. Continue inhaler use. Slight leukocytosis: -Wbc 11.4. Could be 2/2 stress from hypoglycemic episodes. -No obvious source of infection; no recent URI, dysuria, etc. -Will check repeat CBC in AM. CAD s/p stent in 2013: -Stable, no CP -ECG without changes. -Continue home meds. Ischemic cardiomyopathy (with AICD), systolic CHF: -Poor EF of 15-20% and global hypokinesis of LV on last Echo (10/21) -Continue home meds -Followed by Dr. Perry out-patient HTN: stable -Continue home meds. CKD Stage III: -Cr is at baseline of 1.3 -Avoid nephrotoxic agents. Hypothyroidism: -TSH wnl -Continue home meds. Depression: stable -Continue home meds. R leg lesions: -Multiple small, scabbed lesions with some surrounding erythema but not cellulitis. -States that hardware at his L BKA site irritates his R leg when he ambulates to the bathroom without prosthesis. DVT Ppx: Heparin Code status: FULL PCP: to be determined PTD. Used to see Dr. 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 Dispo: Med/surg obs overnight. Attending Addendum Pt was seen and examined. Agreed Will Sarah VEGA physical exam, assessment and plan. 66yo M with a PMH of DM II with CKD, CAD s/p stent in 2013, ischemic cardiomyopathy (s/p AICD), systolic CHF (class III) and HTN who presents with two consecutives visit to the ER today for hypoglycemic episodes. Patient was found unresponsive on the floor by his partner this morning and EMS was called and blood sugar was found to be 31. D10 was given and pt was brought to ER. he was discharged later from the ER after blood sugar has been wnl. He was found again in the floor with BS of 24 . D10 was given and brought back to the ER for further eval. General- No acute distress Head- atraumatic Eyes- PERRL, EOMI ENT- oropharynx clear Neck- supple, no JVD Lungs- decrease BS in the right side Heart- regular rhythm Abdomen- normal bowel sounds a/P Hypoglycemia -S/p 2 symptomatic hypoglycemic episodes today with BG in the 30s. - On levemir 80 unit BID -Consulted pharm with glycemic control -Will need to decrease his levemir -Hgb a1c ordered -Continue monitor BS closely Lab, imaging and EKG reviewed Please refer to Sarah VEGA documentation for other problems. Agustin Gaxiola MD Level of Care Med/Surg Resuscitation Status FULL RESUSCITATION VTE Prophylaxis VTE Risk Assessment Done? Y/N: Yes Risk Level: Moderate Given or contraindicated: Unfractionated heparin SQ
[2017-03-27] MEDS ORDERED: PHARMACY GLYCEMIC MGMT CONSULT PRN (18:16)
[2017-03-27 18:37] VITALS: BP 132/88; PULSE 89; TEMP 36.5; O2SAT 95; BMI 38.0
--- NOTE | 2017-03-27 18:52 | Pharmacy Progress Note ---
Glycemic Control Intl Consult Date of Service Mar 27, 2017. Scope Glycemic Pharmacist consulted by Sarah Amor PA-C on 03/27/17 for glycemic control and to write orders per [facility] inpatient glycemic control protocol Objective Weight (Kilograms): 120.000 Accuchecks BSG (last 24hrs): Test 03/27/17 11:59 03/27/17 12:10 03/27/17 15:08 03/27/17 18:22 Bedside Glucose 131 mg/dl (70-99) 129 mg/dl (70-99) 82 mg/dl (70-99) Random Glucose 120 mg/dl (70-99) Laboratory Data (last 24hrs) Test 03/27/17 12:10 Anion Gap 7.0 mmol/L BUN/Creatinine Ratio 25.6 Blood Urea Nitrogen 33 mg/dl Creatinine 1.30 mg/dl Potassium Level 3.7 mmol/L Sodium Level 139 mmol/L White Blood Count 11.39 K/uL Red Blood Count 4.31 M/uL Hemoglobin 11.1 g/dL Hematocrit 34.1 % Mean Corpuscular Volume 79.1 fL Mean Corpuscular Hemoglobin 25.8 pg Mean Corpuscular Hemoglobin Concent 32.6 g/dl Platelet Count 299 K/uL Mean Platelet Volume 8.7 fL Neutrophils (%) (Auto) 86.5 % Lymphocytes (%) (Auto) 7.6 % Monocytes (%) (Auto) 4.7 % Eosinophils (%) (Auto) 0.6 % Basophils (%) (Auto) 0.2 % Neutrophils # (Auto) 9.86 K/uL Lymphocytes # (Auto) 0.86 K/uL Monocytes # (Auto) 0.53 K/uL Eosinophils # (Auto) 0.07 K/uL Basophils # (Auto) 0.02 K/uL Recent Pertinent Medications Outpatient Anti-diabetic Regimen: * Levemir 80 units BID plus Regular insulin 3 units with breakfast and evening meal * A1c = 8.2 % 01/20/17 Risk Factors for Insulin Resistance: * Diet: type 2 diabetic diet Assessment & Plan ASSESSMENT: * ADA & AACE recommend a goal blood sugar range 140-180 mg/dl for the majority of critically ill & non-critically ill patients. However, more stringent targets may be selected in individual cases. Will utilize a lower goal range in this patient since he has tolerated lower blood sugar values. Also, even though the patient has hypoglycemia, a higher goal range would allow insulin to be subtracted from carbohydrate coverage which the patient needs (based upon previous admissions). * Mr Koroma is a 66 y/o M admitted for hypoglycemia. He was seen twice today in the emergency department. In a patient interview, he stated that he took Levemir 80 units last night along with his regular insulin. He denies weight change and altered diet. No insulin since. He has had sustained hypoglycemia since this morning at 3 am. * In order to prevent hyperglycemia, lose parameters for bolus insulin were established. These correlated to weight-based stress of 2 and a total daily dose of 80 units of insulin. These parameters were much looser than what the patient typically required; however, in light of sustained hypoglycemia these are appropriate. Slightly tighter carbohydrate ratio was utilized due to the patient's history of tight carbohydrate ratios. * A lower dose of Levemir was started as well. In a previous admission, where blood sugars were lower. A scale was established in case the patient's blood sugars did not completely recover. Levemir dosing is entirely necessary as without it, the patient may become basal deficient and have rebound hyperglycemia. PLAN FOR INPATIENT GLYCEMIC CONTROL: * Basal insulin with LANTUS 15-20 units SQ BID (15 units if blood sugar 100 mg/ dL or less; 20 units if blood sugar greater than 100 mg/dL) * Correctional Insulin with NOVOLOG per scale ACHS * Goal Range: Low 110 mg/dL - High 140 mg/dL * Correction Factor: 20 mg/dL/unit * Nutritional / Prandial insulin per carb ratio of 1 unit per 6 grams CHO consumed * Please note that the plan above was derived based on current level of insulin resistance and hospital stress. These recommendations are appropriate for inpatient admission only. Plan of care upon discharge will need to be reassessed to avoid potential outpatient hypo/hyperglycemia. Thank you.
[2017-03-27] MEDS: INSULIN ASPART 100 UNITS/ML 3 ML PEN SC SCH ×2 (19:50→20:55)
[2017-03-27] MEDS: FUROSEMIDE 80 MG TAB PO SCH (19:51)
[2017-03-27] MEDS: METOPROLOL SUCC 25MG EXT REL TAB PO SCH (19:52)
[2017-03-27] MEDS ORDERED: INSULIN DETEMIR FLEXPEN/FLEX TOUCH 100 UNITS/ML 3ML SC SCH (20:00)
[2017-03-27] MEDS: HEPARIN SOD 5000 UNIT/0.5 ML CARP SQ SCH (20:57)
[2017-03-27] MEDS ORDERED: NURSING DECISION MEDICATION ORDER SCH (22:00)
[2017-03-27] MEDS ORDERED: MICONAZOLE NITRATE POWDER 43 GM EXT PRN (22:15)
[2017-03-28 00:15] VITALS: BP 127/75; PULSE 82; TEMP 36.6; O2SAT 93
[2017-03-28 02:13] LABS: URINE APPEARANCE CLEAR (CLEAR); URINE BILIRUBIN NEG (NEG); URINE COLOR YELLOW; URINE NITRITE NEG (NEG); URINE SPECIFIC GRAVITY 1.015 (1.000-1.030); UROBILINOGEN NEG (NEG)
[2017-03-28 02:25] LABS: MANUAL MICROSCOPIC REQUIRED? NO; REVIEW REQ? NO
[2017-03-28] MEDS: INSULIN ASPART 100 UNITS/ML 3 ML PEN SC SCH ×6 (04:00→20:52)
[2017-03-28] MEDS: HEPARIN SOD 5000 UNIT/0.5 ML CARP SQ SCH ×3 (06:00→21:28)
[2017-03-28] MEDS: LEVOTHYROXINE 50 MCG TAB PO SCH (06:01)
[2017-03-28 07:31] VITALS: BP 115/75; PULSE 76; TEMP 36.7; O2SAT 96
[2017-03-28 07:33] LABS: BASO % 0.5 %; BASO ABS # 0.04 K/uL (0-0.2); COMPLETE YES; EOS % 4.6 %; HEMATOCRIT 33.6 % (42-52); IG% 0.3 %; LYMPH % 23.9 %; LYMPH ABS # 1.88 K/uL (1.2-3.4); MEAN CORPUSCULAR HEMOGLOBIN 25.7 pg (25-34); MEAN CORPUSCULAR HGB CONC 32.1 g/dl (32-36); MEAN PLATELET VOLUME 9.1 fL (7.4-10.4); MONO % 5.9 %; NEUT % 64.8 %; PLATELET COUNT 265 K/uL (130-400); WHITE BLOOD COUNT 7.86 K/uL (4.8-10.8)
[2017-03-28 07:47] LABS: ESTIMATED AVERAGE GLUCOSE 143 mg/dl; HA1C FLAG Normal (Normal)
[2017-03-28 08:03] LABS: BUN/CREATININE RATIO 26.9 (10-20); CALCIUM 9.3 mg/dl (8.5-10.1); CREATININE 1.3 mg/dl (0.60-1.40); POTASSIUM 3.5 mmol/L (3.5-5.1)
[2017-03-28] MEDS: SERTRALINE HCL 100 MG TAB PO SCH (08:50)
[2017-03-28] MEDS: ATORVASTATIN 40 MG TAB PO SCH (08:50)
[2017-03-28] MEDS: ASPIRIN 81 MG ECTAB PO SCH (08:53)
[2017-03-28] MEDS: LOSARTAN POTASSIUM 25 MG TAB PO SCH (08:53)
[2017-03-28] MEDS: ALLOPURINOL 300 MG TAB PO SCH (08:54)
[2017-03-28] MEDS: ISOSORBIDE MONONITRATE 30 MG TABCR PO SCH (08:54)
[2017-03-28] MEDS: FUROSEMIDE 80 MG TAB PO SCH ×2 (08:55→20:47)
--- NOTE | 2017-03-28 09:41 | Pharmacy Progress Note ---
Glycemic Control Progress Note Date of Service Mar 28, 2017. Scope Glycemic Pharmacist consulted for glycemic control to write orders per [facility] inpatient glycemic control protocol. Objective Accuchecks BSG (last 24hrs): Test 03/27/17 11:59 03/27/17 12:10 03/27/17 15:08 03/27/17 18:22 Bedside Glucose 131 mg/dl (70-99) 129 mg/dl (70-99) 82 mg/dl (70-99) Random Glucose 120 mg/dl (70-99) Test 03/27/17 20:13 03/28/17 00:01 03/28/17 00:32 03/28/17 01:35 Bedside Glucose 135 mg/dl (70-99) 64 mg/dl (70-99) 66 mg/dl (70-99) 230 mg/dl (70-99) Test 03/28/17 04:17 03/28/17 06:47 03/28/17 07:42 Bedside Glucose 90 mg/dl (70-99) 71 mg/dl (70-99) Random Glucose 58 mg/dl (70-99) HbA1c: Test 03/28/17 06:47 Hemoglobin A1c 6.6 % (4.5-5.6) H Recent Pertinent Medications The patient is currently receiving: * Basal insulin: Lantus 15-20 units every 12 hours * Correctional Insulin: Novolog Correction per scale ACHS Goal Range: Low 110 mg/dL - High 140 mg/dL Correction Factor: 20 mg/dL/unit * Prandial insulin: Per carb ratio of 1 unit per 6 grams CHO consumed * Oral Agents: HELD Outpatient Anti-Diabetic Meds Oral Agents * glyburide 5 mg po daily Basal Insulin * Levemir 80 units BID Bolus Insulin * Regular insulin 3 units with breakfast & evening meal Assessment & Plan ASSESSMENT: * See progress note from 03/27/17 for more background info, in short: * Pt was found unresponsive at home and brought to the ER via EMS twice on 03/27 (BSG 31 mg/dL and 24 mg/dL). * Pt also had hypoglycemia overnight for which he was given juice x 2 (BSG 64 - > 66 -> 230 mg/dL). * Pt receiving little insulin at this time secondary to persistent hypoglycemia * BSGs ranging 58 - 135 mg/dl over the past 24hrs * Changes needed to insulin regimen: * AM Fasting BSG = 71 mg/dl. This is in below goal range for patient based on inpatient targets and co-morbidities. Therefore Basal insulin will be held this morning. Further doses will be held or reduced until hypoglycemia has resolved. * Post-prandial BSGs are at or below goal, therefore need to loosen CF/CR. PLAN FOR INPATIENT GLYCEMIC CONTROL: * Oral Agents * Continue to hold outpatient oral diabetes medications. * Basal insulin * Held am dose * Levemir 12 units SQ HS - only if BSG is 180 mg/dL or more * Bolus insulin - loosen CF/CR * NovoLog per scale ACHS or Q6hrs while NPO * Increase Goal Range: Low 120 mg/dL - High 160 mg/dL * Correction Factor: 30 mg/dL/unit * Nutritional / Prandial insulin per carb ratio of 1 unit per 10 grams CHO consumed RECOMMENDATIONS FOR DISCHARGE: * Patient is on glyburide as an outpatient - recommend discontinuation of this agent due to h/o CKD stage III. Accumulation of glyburide can lead to prolonged severe hypoglycemia. * unable to provide at this time due to lack of BSG data * Please note that the plan above was derived based on current level of insulin resistance and hospital stress. These recommendations are appropriate for inpatient admission only. Plan of care upon discharge will need to be reassessed to avoid potential outpatient hypo/hyperglycemia. Thank you.
[2017-03-28 10:17] VITALS: BP 124/67; PULSE 76
[2017-03-28] MEDS: METOPROLOL SUCC 25MG EXT REL TAB PO SCH ×2 (10:18→20:46)
[2017-03-28 15:18] VITALS: Ht 177.8 cm; Wt 120.0 kg
[2017-03-28 16:00] VITALS: O2SAT 96
[2017-03-28 16:06] VITALS: BP 123/75; PULSE 71; TEMP 36.5; O2SAT 95
--- NOTE | 2017-03-28 17:20 | Progress Note ---
Medicine Progress Note Date & Time of Visit: Mar 28, 2017 at 16:52. Subjective This is a 66yo M with a PMH of DM II with CKD, CAD s/p stent in 2013, ischemic cardiomyopathy (s/p AICD), systolic CHF (class III) and HTN who presents with two hypoglycemic episodes in the past 24 hours that resulted in syncopal events. -pt feels well and is asking to go home -reports some chronic SOB -denies coughing, fevers, chills, chest pain, n/v -reports he is still dealing with some rib discomfort from the traumatic rib fractures in January 2017. Objective Last 8 Hrs Date Time Temp Pulse Resp B/P (MAP) Pulse Ox O2 Delivery O2 Flow Rate FiO2 03/28/17 16:06 36.5 71 18 123/75 (91) 95 Room Air 03/28/17 10:17 76 124/67 (86) Physical Exam: GEN: WNWD, in no acute distress, alert and appropriate HEENT: NC/AT, pupils are equal and round bilaterally, normal sclerae, MMM CARDIO: reg rate, S1/2 heard without m/g/r LUNGS: CTA bilaterally, no crackles, rales or wheezes, good diaphragmatic excursion ABD: soft, non-tender, non-distended, no rebound or guarding, +BS EXTREMITY: L BKA present, multiple skin wounds on R leg which are scabbed over and not draining-no surrounding erythema. Multiple finger amputations on hands bilaterally. No LE swelling or edema, extremities are warm and well-perfused NEURO: CN 2-12 grossly intact, no gross focal deficits. MUSC: moves all extremities equally SKIN: warm and dry and skin wounds as above. Laboratory Results: 03/28/17 06:47 Red Blood Count 4.20, Mean Corpuscular Volume 80.0, Mean Corpuscular Hemoglobin 25.7, Mean Corpuscular Hemoglobin Concent 32.1, Mean Platelet Volume 9.1, Neutrophils (%) (Auto) 64.8, Lymphocytes (%) (Auto) 23.9, Monocytes (%) (Auto) 5.9, Eosinophils (%) (Auto) 4.6, Basophils (%) (Auto) 0.5, Neutrophils # (Auto) 5.10, Lymphocytes # (Auto) 1.88, Monocytes # (Auto) 0.46, Eosinophils # (Auto) 0.36, Basophils # (Auto) 0.04 03/28/17 06:47 Test 03/27/17 12:10 03/28/17 01:45 03/28/17 06:47 03/28/17 16:48 Total Bilirubin 0.6 mg/dl (0.2-1) Direct Bilirubin 0.2 mg/dl (0-0.2) Aspartate Amino Transf (AST/SGOT) 20 U/L (15-37) Alanine Aminotransferase (ALT/SGPT) 16 U/L (12-78) Alkaline Phosphatase 108 U/L (45-117) Total Creatine Kinase 129 U/L (39-308) Creatine Kinase MB 4.9 ng/ml (0.5-3.6) Creatine Kinase MB Ratio 3.8 (0-3.0) Troponin I 0.024 ng/ml (0-0.045) Total Protein 8.0 gm/dl (6.4-8.2) Albumin 3.2 gm/dl (3.4-5.0) Thyroid Stimulating Hormone (TSH) 1.760 uIu/ml (0.300-4.500) Urine Color YELLOW Urine Appearance CLEAR (CLEAR) Urine pH 5.0 (4.5-7.5) Urine Specific Hudson 1.015 (1.000-1.030) Urine Protein NEG (NEG) Urine Glucose (UA) NEG (NEG) Urine Ketones NEG (NEG) Urine Occult Blood NEG (NEG) Urine Nitrite NEG (NEG) Urine Bilirubin NEG (NEG) Urine Urobilinogen NEG (NEG) Urine Leukocyte Esterase NEG (NEG) White Blood Count 7.86 K/uL (4.8-10.8) Red Blood Count 4.20 M/uL (4.7-6.1) Hemoglobin 10.8 g/dL (14.0-18.0) Hematocrit 33.6 % (42-52) Mean Corpuscular Volume 80.0 fL (80-100) Mean Corpuscular Hemoglobin 25.7 pg (25-34) Mean Corpuscular Hemoglobin Concent 32.1 g/dl (32-36) Platelet Count 265 K/uL (130-400) Mean Platelet Volume 9.1 fL (7.4-10.4) Neutrophils (%) (Auto) 64.8 % Lymphocytes (%) (Auto) 23.9 % Monocytes (%) (Auto) 5.9 % Eosinophils (%) (Auto) 4.6 % Basophils (%) (Auto) 0.5 % Neutrophils # (Auto) 5.10 K/uL (1.4-6.5) Lymphocytes # (Auto) 1.88 K/uL (1.2-3.4) Monocytes # (Auto) 0.46 K/uL (0.11-0.59) Eosinophils # (Auto) 0.36 K/uL (0-0.5) Basophils # (Auto) 0.04 K/uL (0-0.2) RDW Standard Deviation 45.3 fL (36.4-46.3) RDW Coefficient of Variation 15.6 % (11.5-14.5) Immature Granulocyte % (Auto) 0.3 % Immature Granulocyte # (Auto) 0.02 K/uL (0.00-0.02) Anion Gap 7.0 mmol/L (3-11) Est Creatinine Clear Calc Drug Dose 72.6 ml/min Estimated GFR () 65.9 Estimated GFR (Non- 56.9 BUN/Creatinine Ratio 26.9 (10-20) Estimated Average Glucose 143 mg/dl Hemoglobin A1c 6.6 % (4.5-5.6) Calcium Level 9.3 mg/dl (8.5-10.1) Bedside Glucose 148 mg/dl (70-99) Last 24 Hours Test 03/27/17 18:22 03/27/17 20:13 03/28/17 00:01 03/28/17 00:32 Bedside Glucose 82 mg/dl 135 mg/dl 64 mg/dl 66 mg/dl Test 03/28/17 01:35 03/28/17 01:45 03/28/17 04:17 03/28/17 06:47 Bedside Glucose 230 mg/dl 90 mg/dl Urine Color YELLOW Urine Appearance CLEAR Urine pH 5.0 Urine Specific Hudson 1.015 Urine Protein NEG Urine Glucose (UA) NEG Urine Ketones NEG Urine Occult Blood NEG Urine Nitrite NEG Urine Bilirubin NEG Urine Urobilinogen NEG Urine Leukocyte Esterase NEG White Blood Count 7.86 K/uL Red Blood Count 4.20 M/uL Hemoglobin 10.8 g/dL Hematocrit 33.6 % Mean Corpuscular Volume 80.0 fL Mean Corpuscular Hemoglobin 25.7 pg Mean Corpuscular Hemoglobin Concent 32.1 g/dl Platelet Count 265 K/uL Mean Platelet Volume 9.1 fL Neutrophils (%) (Auto) 64.8 % Lymphocytes (%) (Auto) 23.9 % Monocytes (%) (Auto) 5.9 % Eosinophils (%) (Auto) 4.6 % Basophils (%) (Auto) 0.5 % Neutrophils # (Auto) 5.10 K/uL Lymphocytes # (Auto) 1.88 K/uL Monocytes # (Auto) 0.46 K/uL Eosinophils # (Auto) 0.36 K/uL Basophils # (Auto) 0.04 K/uL RDW Standard Deviation 45.3 fL RDW Coefficient of Variation 15.6 % Immature Granulocyte % (Auto) 0.3 % Immature Granulocyte # (Auto) 0.02 K/uL Sodium Level 140 mmol/L Potassium Level 3.5 mmol/L Chloride Level 104 mmol/L Carbon Dioxide Level 29 mmol/L Anion Gap 7.0 mmol/L Blood Urea Nitrogen 35 mg/dl Creatinine 1.30 mg/dl Est Creatinine Clear Calc Drug Dose 72.6 ml/min Estimated GFR () 65.9 Estimated GFR (Non- 56.9 BUN/Creatinine Ratio 26.9 Random Glucose 58 mg/dl Estimated Average Glucose 143 mg/dl Hemoglobin A1c 6.6 % Calcium Level 9.3 mg/dl Test 03/28/17 07:42 03/28/17 11:31 Bedside Glucose 71 mg/dl 121 mg/dl Assessment & Plan This is a 66yo M with a PMH of DM II with CKD, CAD s/p stent in 2013, ischemic cardiomyopathy (s/p AICD), systolic CHF (class III) and HTN who presents with two hypoglycemic episodes in the past 24 hours that resulted in syncopal events. 1. Hypoglycemia-associated autonomic failure (HAAF): long-standing DMII with known complications of neuropathy and vasculopathy. Pt is unaware of onset of hypoglycemia in setting of long-standing diabetes and likely has impaired counterregulatory responses. He denies changes in eating patterns, weight changes or recent medication changes in the last few months. His current outpatient regimen is Levemir 80 Units BID, NPH 3 Units BID and glyburide 5mg PO daily and this has not been changed for a long time. Will discuss with pharmacy about decreasing Levemir to 10 Units at night only, cont with NPH and cutting the glyburide by 50%. Will need close monitoring in the outpatient setting. 2. Dyspnea: appears chronic in description with no evidence of an acute CHF exacerbation. CXR reveals improvement from prior in January when he had his traumatic hemothorax 2/2 multiple R rib fractures. Pt admittedly still has some discomfort from this. May also be an element of deconditioning here with long admission in January. OT has seen patient and recommends he return home. Still awaiting PT eval. With reduced EF 15-20% on last echo in Oct, he will certainly have chronic SOB, and this patient is a poor historian with poor insight into his disease processes. Would recommend follow-up with his Repairing Calibrator as an outpatient and cont medical management of his heart failure at this time. 3. Leukocytosis-resolved 4. ICM-chronic, stable, see #2. ICD in place. 5. CAD s/p stent in 2013: Stable, no CP; ECG without changes; cont medication management 6. HTN-controlled, cont home medications including Cozaar 25, metolazone 2.5 weekly, Toprol XL 25 BID and Lasix 80mg PO BID 7. CKD Stage III: Cr is at baseline of 1.3; Avoid nephrotoxic agents. 8. Hypothyroidism: TSH wnl, cont Synthroid at 50mcg daily 9. Depression/anxiety-cont Zoloft at 100 daily 10. R leg lesions: -Multiple small, scabbed lesions with some surrounding erythema but not cellulitis. -States that hardware at his L BKA site irritates his R leg when he ambulates to the bathroom without prosthesis. -wound care visits ordered-appreciate recs/assistance with management 11. Anemia-records have shown steady improvement after hemothorax in January with Hospitalization. Still in process of recovering RBCs. Slight drop overnight likely dilutional and related to phlebotomy. Will monitor while inpatient. DVT Ppx: Heparin Code status: FULL PCP: to be determined PTD. Used to see Dr. Addison but since he is now a hospitalist, need to re-assign to a different PCP in [place]. Dispo: likely to home in am after PT evaluation for safety Cristina Durbin DO [facility] Hospitalist Current Inpatient Medications: Current Inpatient Medications Medications (Trade) Dose Ordered Sig/Ifeanyi Route Start Time Stop Time Status Last Admin Dose Admin Heparin Sodium (Porcine) (Heparin Sq 5000 Unit/0.5ml) 5,000 unit Q8 SQ 03/27/17 22:00 04/26/17 21:59 03/28/17 14:17 5,000 UNIT Acetaminophen (Tylenol Tab) 650 mg Q4H PRN PO 03/27/17 16:30 04/26/17 16:29 Ondansetron HCl (Zofran Inj) 4 mg Q6H PRN IV 03/27/17 16:30 04/26/17 16:29 Miscellaneous (Iv Fluids Completed) 1 ea PRN PRN N/A 03/27/17 16:45 03/27/18 16:44 Miscellaneous Information (Consult Glycemic Management Pharmacy) 1 ea UD PRN N/A 03/27/17 18:16 04/26/17 18:15 Insulin Aspart (novoLOG ASPART) SLIDING SCALE If C... ACHS SC 03/27/17 18:30 04/26/17 18:29 03/28/17 12:44 3 UNITS Glucose (Glucose 40% Gel) 15-30 GRAMS 15 GRAMS... UD PRN PO 03/27/17 16:30 04/26/17 16:29 Glucose (Glucose Chew Tab) 4-8 Tablets 4 Tabl... UD PRN PO 03/27/17 16:30 04/26/17 16:29 Dextrose (Dextrose 50% 50ML Syringe) 25-50ML OF 50% DW IV FOR... UD PRN IV 03/27/17 16:30 04/26/17 16:29 Glucagon (Glucagon Inj) 1 mg UD PRN SQ 03/27/17 16:30 04/26/17 16:29 Allopurinol (Zyloprim Tab) 300 mg DAILY PO 03/28/17 08:00 04/27/17 08:59 03/28/17 08:54 300 MG Aspirin (Ecotrin Tab) 81 mg DAILY PO 03/28/17 08:00 04/27/17 08:59 03/28/17 08:53 81 MG Atorvastatin Calcium (Lipitor Tab) 80 mg DAILY PO 03/28/17 08:00 04/27/17 08:59 03/28/17 08:50 80 MG Furosemide (Lasix Tab) 80 mg BID PO 03/27/17 20:00 04/26/17 20:59 03/28/17 08:55 80 MG Isosorbide Mononitrate (Imdur Ext Rel Tab) 15 mg QAM PO 03/28/17 08:00 04/27/17 08:59 03/28/17 08:54 15 MG Levothyroxine Sodium (Synthroid Tab) 50 mcg DAILYBB PO 03/28/17 06:30 04/27/17 06:59 03/28/17 06:01 50 MCG Losartan Potassium (coZAAR TAB) 25 mg DAILY PO 03/28/17 08:00 04/27/17 08:59 03/28/17 08:53 25 MG Metolazone (Zaroxolyn Tab) 2.5 mg Gerard@0800 PO 04/02/17 08:00 05/02/17 07:59 Metoprolol Succinate (Toprol Xl Tab) 25 mg BID PO 03/27/17 20:00 04/26/17 20:59 03/28/17 10:18 25 MG Sertraline HCl (Zoloft Tab) 100 mg DAILY PO 03/28/17 08:00 04/27/17 08:59 03/28/17 08:50 100 MG Insulin Detemir (Levemir Flexpen/ FlexTouch) SEE PROTOCOL BID SC 03/27/17 20:00 04/26/17 19:59 Future hold 03/27/17 20:56 20 UNITS Miconazole Nitrate (Desenex Powder) 1 appln PRN PRN EXT 03/27/17 22:15 04/26/17 22:14 03/28/17 10:17 1 APPLN
[2017-03-28] MEDS ORDERED: INSULIN DETEMIR FLEXPEN/FLEX TOUCH 100 UNITS/ML 3ML SC SCH (21:00)
[2017-03-28 23:04] VITALS: BP 128/76; PULSE 69; TEMP 36.7; O2SAT 96
[2017-03-29] MEDS: LEVOTHYROXINE 50 MCG TAB PO SCH (06:22)
[2017-03-29] MEDS: HEPARIN SOD 5000 UNIT/0.5 ML CARP SQ SCH ×2 (06:24→12:27)
[2017-03-29 06:55] VITALS: BP 124/74; PULSE 65; TEMP 36.5; O2SAT 100
[2017-03-29] MEDS: INSULIN ASPART 100 UNITS/ML 3 ML PEN SC SCH ×2 (08:26→12:29)
[2017-03-29] MEDS: SERTRALINE HCL 100 MG TAB PO SCH (08:28)
[2017-03-29] MEDS: LOSARTAN POTASSIUM 25 MG TAB PO SCH (08:28)
[2017-03-29] MEDS: ASPIRIN 81 MG ECTAB PO SCH (08:28)
[2017-03-29] MEDS: ATORVASTATIN 40 MG TAB PO SCH (08:28)
[2017-03-29] MEDS: FUROSEMIDE 80 MG TAB PO SCH (08:28)
[2017-03-29] MEDS: METOPROLOL SUCC 25MG EXT REL TAB PO SCH (08:28)
[2017-03-29] MEDS: ISOSORBIDE MONONITRATE 30 MG TABCR PO SCH (08:28)
[2017-03-29] MEDS: ALLOPURINOL 300 MG TAB PO SCH (08:29)
--- NOTE | 2017-03-29 10:25 | Pharmacy Progress Note ---
Glycemic Control Progress Note Date of Service Mar 29, 2017. Scope Glycemic Pharmacist consulted for glycemic control to write orders per [facility] inpatient glycemic control protocol. Objective Accuchecks BSG (last 24hrs): Test 03/28/17 11:31 03/28/17 16:48 03/28/17 20:37 03/29/17 04:44 Bedside Glucose 121 mg/dl (70-99) 148 mg/dl (70-99) 243 mg/dl (70-99) Test 03/29/17 07:49 Bedside Glucose 244 mg/dl (70-99) HbA1c: Test 03/28/17 06:47 Hemoglobin A1c 6.6 % (4.5-5.6) H Recent Pertinent Medications The patient is currently receiving: * Basal insulin: Levemir 10 units every 24 hours given at bedtime * Correctional Insulin: Novolog Correction per scale ACHS Goal Range: Low 120 mg/dL - High 160 mg/dL Correction Factor: 30 mg/dL/unit * Prandial insulin: Per carb ratio of 1 unit per 10 grams CHO consumed * Oral Agents: On hold Outpatient Anti-Diabetic Meds Oral Agents * glyburide 5 mg po daily Basal Insulin * Levemir 80 units BID Bolus Insulin * Regular insulin 3 units with breakfast & evening meal Assessment & Plan ASSESSMENT: * See progress note from 03/28/17 for more background info, in short: * Pt receiving SQ basal bolus insulin regimen for hyperglycemia secondary to baseline DM (outpatient regimen modified for hypo on admission) * Patient is currently receiving an average of 27 units of insulin per day * 10 units of basal insulin * 17 units of prandial/correctional insulin * BSGs ranging 71 - 243 mg/dl over the past 24hrs * Changes needed to insulin regimen: * AM Fasting BSG = 244 mg/dl. This is above goal range for patient based on inpatient targets and co-morbidities. Therefore Basal insulin needs conservatively increased. Pt is receiving Levemir which typically is dosed BID based on its shorter duration of action. Will change to BID dosing. Of note, pt is on BID dosing as an outpatient as well. * Post-prandial BSGs are elevated/BSGs rise throughout the day therefore need to tighten CF/CR * Total daily dose = 27 units. Will keep regimen distributed as 50%:50% basal: prandial to prevent hypo/hyperglycemia Increase in total daily dose is needed based on BSGs trending upwards from dramatically reduced insulin doses. Will increase very conservatively to prevent hypoglycemia. * Additional notes / comments: Per previous admissions patient was well controlled on 130-150 units of insulin per day. Outpatient dosing is much higher than this and patient takes glyburide as an outpatient which is probably what lead to hypoglycemia. PLAN FOR INPATIENT GLYCEMIC CONTROL: * Oral Agents * Continue to hold outpatient oral diabetes medications. * Sulfonylureas particularly not recommended d/t long standing hypoglycemia * Basal insulin: increase dosing, resume BID dosing * Levemir 10 units SQ BID --> BSGs continue to climb, will probably need to increase this dosing. Per previous admissions pt does very well on Levemir 20- 40 units SQ BID. * Bolus insulin: tighten parameters, keep "low" end of goal range elevated to help prevent hypo * NovoLog per scale ACHS or Q6hrs while NPO * Goal Range: Low 120 mg/dL - High 160 mg/dL * Correction Factor: 20 mg/dL/unit * Nutritional / Prandial insulin per carb ratio of 1 unit per 6 grams CHO consumed RECOMMENDATIONS FOR DISCHARGE: * Patient is on glyburide as an outpatient - recommend discontinuation of glyburide due to h/o CKD stage III. Accumulation of glyburide can lead to prolonged severe hypoglycemia. Glyburide has multiple drug interactions that can affect its actions and has a very long duration of action. If hypoglycemia occurs it will be long lasting with glyburide. Glyburide should be avoided in elderly, renal impairment patients. * Decrease in Levemir dosing --> Levemir 25-40 units SQ BID has worked well in previous admissions. * I checked insurance Rx refill history - it looks like Dr Guajardo decreased Levemir dosing to 40units SQ BID around 03/01/17. Unsure if pt decreased his dosing accordingly and may have still been taking 80 units SQ BID. Pt does get both Levemir & regular insulin (prandial insulin) refilled on a timely basis. * May consider just DC regular insulin coverage as his current dosing is minimal (3 units with meals) as compared to total daily dose and insulin stacking may be occurring and causing hypo? * Please note that the plan above was derived based on current level of insulin resistance and hospital stress. These recommendations are appropriate for inpatient admission only. Plan of care upon discharge will need to be reassessed to avoid potential outpatient hypo/hyperglycemia. Thank you.
[2017-03-29 10:48] LABS: HEMATOCRIT 33.9 % (42-52); MEAN CORPUSCULAR HEMOGLOBIN 26.3 pg (25-34); MEAN CORPUSCULAR HGB CONC 33.3 g/dl (32-36); PLATELET COUNT 270 K/uL (130-400); RED BLOOD COUNT 4.29 M/uL (4.7-6.1); WHITE BLOOD COUNT 7.93 K/uL (4.8-10.8)
--- NOTE | 2017-03-29 10:51 | Progress Note ---
Medicine Progress Note Date & Time of Visit: Mar 29, 2017 at 10:37. Subjective This is a 66yo M with a PMH of DM II with CKD, CAD s/p stent in 2013, ischemic cardiomyopathy (s/p AICD), systolic CHF (class III) and HTN who presents with two hypoglycemic episodes in the past 24 hours that resulted in syncopal events. -long conversation regarding barriers to care (see A/P) -denies pain -asking to go home today -denies symptoms at this time but has chronic dysequlibrium and states that he cannot ambulate around his house as a result of being "too wobbly." -tolerating PO -barrier to PT assessment he states is that he has no tennis shoes to perform PT assessment in and so he has declined. -He reports not ambulating at home in shoes, however, because this causes him to slip too easily Objective Last 8 Hrs Date Time Temp Pulse Resp B/P (MAP) Pulse Ox O2 Delivery O2 Flow Rate FiO2 03/29/17 08:00 Room Air 03/29/17 06:55 36.5 65 18 124/74 (91) 100 Room Air Physical Exam: GEN: WNWD, in no acute distress, mentating appropriately, just waking up from sleep and appears slightly groggy HEENT: NC/AT, pupils are equal and round bilaterally, normal sclerae, MMM, poor dentition CARDIO: reg rate, S1/2 heard without m/g/r LUNGS: CTA bilaterally, no crackles, rales or wheezes, good diaphragmatic excursion ABD: soft, non-tender, non-distended, no rebound or guarding, +BS EXTREMITY: L BKA present, multiple skin wounds on R leg which are scabbed over and not draining-no surrounding erythema. Multiple finger amputations on hands bilaterally. No LE swelling or edema, extremities are warm and well-perfused. R knee Stage II ulceration present covered with Aquacell and Optifoam--no drainage or surrounding erythema NEURO: CN 2-12 grossly intact, no gross focal deficits. Gait not assessed as patient is a fall risk. MUSC: moves all extremities equally SKIN: warm and dry and skin wounds as above. Laboratory Results: Test 03/27/17 12:10 03/28/17 01:45 03/28/17 06:47 03/29/17 07:49 Total Bilirubin 0.6 mg/dl (0.2-1) Direct Bilirubin 0.2 mg/dl (0-0.2) Aspartate Amino Transf (AST/SGOT) 20 U/L (15-37) Alanine Aminotransferase (ALT/SGPT) 16 U/L (12-78) Alkaline Phosphatase 108 U/L (45-117) Total Creatine Kinase 129 U/L (39-308) Creatine Kinase MB 4.9 ng/ml (0.5-3.6) Creatine Kinase MB Ratio 3.8 (0-3.0) Troponin I 0.024 ng/ml (0-0.045) Total Protein 8.0 gm/dl (6.4-8.2) Albumin 3.2 gm/dl (3.4-5.0) Thyroid Stimulating Hormone (TSH) 1.760 uIu/ml (0.300-4.500) Urine Color YELLOW Urine Appearance CLEAR (CLEAR) Urine pH 5.0 (4.5-7.5) Urine Specific [place] 1.015 (1.000-1.030) Urine Protein NEG (NEG) Urine Glucose (UA) NEG (NEG) Urine Ketones NEG (NEG) Urine Occult Blood NEG (NEG) Urine Nitrite NEG (NEG) Urine Bilirubin NEG (NEG) Urine Urobilinogen NEG (NEG) Urine Leukocyte Esterase NEG (NEG) RDW Standard Deviation 45.3 fL (36.4-46.3) RDW Coefficient of Variation 15.6 % (11.5-14.5) White Blood Count 7.86 K/uL (4.8-10.8) Red Blood Count 4.20 M/uL (4.7-6.1) Hemoglobin 10.8 g/dL (14.0-18.0) Hematocrit 33.6 % (42-52) Mean Corpuscular Volume 80.0 fL (80-100) Mean Corpuscular Hemoglobin 25.7 pg (25-34) Mean Corpuscular Hemoglobin Concent 32.1 g/dl (32-36) Platelet Count 265 K/uL (130-400) Mean Platelet Volume 9.1 fL (7.4-10.4) Neutrophils (%) (Auto) 64.8 % Lymphocytes (%) (Auto) 23.9 % Monocytes (%) (Auto) 5.9 % Eosinophils (%) (Auto) 4.6 % Basophils (%) (Auto) 0.5 % Neutrophils # (Auto) 5.10 K/uL (1.4-6.5) Lymphocytes # (Auto) 1.88 K/uL (1.2-3.4) Monocytes # (Auto) 0.46 K/uL (0.11-0.59) Eosinophils # (Auto) 0.36 K/uL (0-0.5) Basophils # (Auto) 0.04 K/uL (0-0.2) Immature Granulocyte % (Auto) 0.3 % Immature Granulocyte # (Auto) 0.02 K/uL (0.00-0.02) Est Creatinine Clear Calc Drug Dose 72.6 ml/min Estimated Average Glucose 143 mg/dl Hemoglobin A1c 6.6 % (4.5-5.6) Bedside Glucose 244 mg/dl (70-99) Test 03/29/17 10:35 Last 24 Hours Test 03/28/17 11:31 03/28/17 16:48 03/28/17 20:37 03/29/17 04:44 Bedside Glucose 121 mg/dl 148 mg/dl 243 mg/dl Test 03/29/17 07:49 Bedside Glucose 244 mg/dl Assessment & Plan This is a 66yo M with a PMH of DM II with CKD, CAD s/p stent in 2013, ischemic cardiomyopathy (s/p AICD), systolic CHF (class III) and HTN who presents with two hypoglycemic episodes in the past 24 hours that resulted in syncopal events. 1. Hypoglycemia-associated autonomic failure (HAAF): long-standing DMII with known complications of neuropathy and vasculopathy. Pt is unaware of onset of hypoglycemia in setting of long-standing diabetes and likely has impaired counterregulatory responses. He denies changes in eating patterns, weight changes or recent medication changes in the last few months. His current outpatient regimen is Levemir 80 Units BID, NPH 3 Units BID and glyburide 5mg PO daily and this has not been changed for a long time. Will discuss with pharmacy about decreasing Levemir to 10 Units at night only, cont with NPH and cutting the glyburide by 50%. Will need close monitoring in the outpatient setting. 03/29: Pt states that he will not do fingersticks and check his blood sugars at home if he goes home today because "I don't really care." In the next breath he states that he doesn't want to sit in the hospital because of the cost associated with doing so. However, when I explain that performing fingersticks and allowing home nursing and Case Management to be involved in his care, he states that he actually doesn't care if he has a bill because "I have other bills I can't pay so they are probably going to take me to [facility] anyway." We decided together that he would stay until the new antiglycemic regimen is more optimized for him. Also, to allow some time to work with Case Management and his about overcoming barriers to care. Some examples include not being able to use [facility] to get to and from appointments because he is not able to walk to the van outside without help having a better way to ambulate inside of his house. He is currently a danger to himself for at least two reasons including 1) he is unable to notice or call for help when his blood sugar goes dangerously low, 2) he is unable to egress from his home in case of an emergency such as a fire. 2. Dyspnea: appears chronic in description with no evidence of an acute CHF exacerbation. CXR reveals improvement from prior in January when he had his traumatic hemothorax 2/2 multiple R rib fractures. Pt admittedly still has some discomfort from this. May also be an element of deconditioning here with long admission in January. OT has seen patient and recommends he return home. Still awaiting PT eval. With reduced EF 15-20% on last echo in Oct, he will certainly have chronic SOB, and this patient is a poor historian with poor insight into his disease processes. Would recommend follow-up with his Back[employer] as an outpatient and cont medical management of his heart failure at this time. Today (03/29) pt states that all he does is sit in his armchair all day and watch TV. He is clearly deconditioned. 3. ICM-chronic, stable, see #2. ICD in place. 4. CAD s/p stent in 2013: Stable, no CP; ECG without changes; cont medication management 5. HTN-controlled, cont home medications including Cozaar 25, metolazone 2.5 weekly, Toprol XL 25 BID and Lasix 80mg PO BID 6. CKD Stage III: Cr is at baseline of 1.3; Avoid nephrotoxic agents. 7. Hypothyroidism: TSH wnl, cont Synthroid at 50mcg daily 8. Depression/anxiety-cont Zoloft at 100 daily 9. R leg lesions: -Multiple small, scabbed lesions with some surrounding erythema but not cellulitis. -States that hardware at his L BKA site irritates his R leg when he ambulates to the bathroom without prosthesis. -wound care visits ordered-appreciate recs/assistance with management 11. Anemia-records have shown steady improvement after hemothorax in January with Hospitalization. Still in process of recovering RBCs. Slight drop overnight likely dilutional and related to phlebotomy. Will monitor while inpatient. 12. Stage II ulceration on knee-wound care is managing this wound, currently covered with Aquacell and Optifoam. No evidence of superinfection present on exam today. PT declines offer to set him up with outpatient wound care because he had an experience at the [facility] where the doctor recommended removal of his scabs to prevent infection and he disagreed with her telling her that she didn't know what he was talking about. Incidentally, he also declines Home Health for the same reason, stating "they just want to boss me around and make me do things the way they think things should be done." DVT Ppx: Heparin Code status: FULL PCP: to be determined PTD. Used to see Dr. Addison but since he is now a hospitalist, need to re-assign to a different PCP in [place]. Working with Case management on this issue. Dispo: uncertain at this point Cristina Durbin DO [facility] [address] Hospitalist Current Inpatient Medications: Current Inpatient Medications Medications (Trade) Dose Ordered Sig/Ifeanyi Route Start Time Stop Time Status Last Admin Dose Admin Heparin Sodium (Porcine) (Heparin Sq 5000 Unit/0.5ml) 5,000 unit Q8 SQ 03/27/17 22:00 04/26/17 21:59 03/29/17 06:24 5,000 UNIT Acetaminophen (Tylenol Tab) 650 mg Q4H PRN PO 03/27/17 16:30 04/26/17 16:29 Ondansetron HCl (Zofran Inj) 4 mg Q6H PRN IV 03/27/17 16:30 04/26/17 16:29 Miscellaneous (Iv Fluids Completed) 1 ea PRN PRN N/A 03/27/17 16:45 03/27/18 16:44 Miscellaneous Information (Consult Glycemic Management Pharmacy) 1 ea UD PRN N/A 03/27/17 18:16 04/26/17 18:15 Insulin Aspart (novoLOG ASPART) SLIDING SCALE If C... ACHS SC 03/27/17 18:30 04/26/17 18:29 03/29/17 08:26 11 UNITS Glucose (Glucose 40% Gel) 15-30 GRAMS 15 GRAMS... UD PRN PO 03/27/17 16:30 04/26/17 16:29 Glucose (Glucose Chew Tab) 4-8 Tablets 4 Tabl... UD PRN PO 03/27/17 16:30 04/26/17 16:29 Dextrose (Dextrose 50% 50ML Syringe) 25-50ML OF 50% DW IV FOR... UD PRN IV 03/27/17 16:30 04/26/17 16:29 Glucagon (Glucagon Inj) 1 mg UD PRN SQ 03/27/17 16:30 04/26/17 16:29 Allopurinol (Zyloprim Tab) 300 mg DAILY PO 03/28/17 08:00 04/27/17 08:59 03/29/17 08:29 300 MG Aspirin (Ecotrin Tab) 81 mg DAILY PO 03/28/17 08:00 04/27/17 08:59 03/29/17 08:28 81 MG Atorvastatin Calcium (Lipitor Tab) 80 mg DAILY PO 03/28/17 08:00 04/27/17 08:59 03/29/17 08:28 80 MG Furosemide (Lasix Tab) 80 mg BID PO 03/27/17 20:00 04/26/17 20:59 03/29/17 08:28 80 MG Isosorbide Mononitrate (Imdur Ext Rel Tab) 15 mg QAM PO 03/28/17 08:00 04/27/17 08:59 03/29/17 08:28 15 MG Levothyroxine Sodium (Synthroid Tab) 50 mcg DAILYBB PO 03/28/17 06:30 04/27/17 06:59 03/29/17 06:22 50 MCG Losartan Potassium (coZAAR TAB) 25 mg DAILY PO 03/28/17 08:00 04/27/17 08:59 03/29/17 08:28 25 MG Metolazone (Zaroxolyn Tab) 2.5 mg Gerard@0800 PO 04/02/17 08:00 05/02/17 07:59 Metoprolol Succinate (Toprol Xl Tab) 25 mg BID PO 03/27/17 20:00 04/26/17 20:59 03/29/17 08:28 25 MG Sertraline HCl (Zoloft Tab) 100 mg DAILY PO 03/28/17 08:00 04/27/17 08:59 03/29/17 08:28 100 MG Miconazole Nitrate (Desenex Powder) 1 appln PRN PRN EXT 03/27/17 22:15 04/26/17 22:14 03/28/17 10:17 1 APPLN Insulin Detemir (Levemir Flexpen/ FlexTouch) 10 units BID SC 03/29/17 11:00 04/28/17 10:59
[2017-03-29] MEDS ORDERED: INSULIN DETEMIR FLEXPEN/FLEX TOUCH 100 UNITS/ML 3ML SC SCH ×2 (11:00→20:00)
[2017-03-29 11:14] LABS: BUN/CREATININE RATIO 36.1 (10-20); CALCIUM 9.3 mg/dl (8.5-10.1); CREATININE 1.4 mg/dl (0.60-1.40); POTASSIUM 3.7 mmol/L (3.5-5.1)
[2017-03-29 15:18] VITALS: BP 104/64; PULSE 66; TEMP 36.6; O2SAT 94
[2017-03-29] MEDS ORDERED: LVMIPEN SC (16:31)
--- NOTE | 2017-03-29 16:39 | Discharge Instructions ---
Discharge Instructions Date of Service Mar 29, 2017. Admission Reason for Admission: Hypoglycemia Discharge Discharge Diagnosis / Problem: Syncope 2/2 hypoglycemia, HAAF Discharge Goals Goal(s): Prevent Disease Progression Activity Recommendations Activity Limitations: per Instructions/Follow-up section . Instructions / Follow-Up Instructions / Follow-Up Please take all medications as instructed. Please note your GLYBURIDE has been STOPPED. This contributes to severe low blood sugar. Please note an adjustment has been made to DECREASE your LEVEMIR dosage to 25 Units twice daily. A new script was sent electronically to your preferred pharmacy on file. I have engaged with your to check you blood sugar and record the numbers so I can followup this week and see how things are going. This is in an effort to transition you to Dr. Rogelio Robin, who will be your new primary care physician (PCP) at the [facility]. He will be seeing you in follow-up this April 03 @ 11:05am. Your has agreed to take you to this appointment to establish care. This appointment is very important, and it is highly encouraged that you make it if you are able. There were some residual abnormalities on your chest xray performed while you were in the hospital. I would recommend a follow-up chest x-ray in 4-6 weeks to ensure improvement/resolution. This can be ordered through your PCP. It was a pleasure taking care of you! Call if you have any questions or problems. You can reach a [facility] hospitalist on duty at [facility] 24 hours a day by calling [phone]. Take care of yourself. Cristina Durbin DO [facility] Hospitalist Current Hospital Diet Patient's current hospital diet: Diabetes Type 2 Diet, AHA Diet (Heart Healthy) Discharge Diet Recommended Diet: AHA Diet (Heart Healthy), Diabetes Type 2 Diet Pending Studies Studies pending at discharge: no Laboratory Results Hemoglobin A1c Test 03/28/17 06:47 Range/Units Estimated Average Glucose 143 mg/dl Hemoglobin A1c 6.6 H 4.5-5.6 % Medical Emergencies . Who to Call and When: Medical Emergencies: If at any time you feel your situation is an emergency, please call 911 immediately. . Non-Emergent Contact Non-Emergency issues call your: Primary Care Provider . . "Provider Documentation" section prepared by Cristina Durbin. . VTE Core Measure Inpt VTE Proph given/why not?: Unfractionated heparin SQ
[2017-03-29 16:48] VITALS: BP 104/64; PULSE 66; TEMP 36.6; O2SAT 94
--- NOTE | 2017-03-29 16:48 | Discharge Summary ---
Discharge Summary Date of Service Mar 29, 2017. 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 Vaccinations: None. Consultations: Diabetic Nurse Educator Pending Studies/Follow-Up: see instructions below Medication Reconciliation New Medications: Insulin Detemir (Levemir Flextouch) 100 Unit/Ml Inj 25 UNITS SC BID for 30 Days, #5 EA 1 Refill Continued Medications: Allopurinol (Zyloprim) 100 Mg Tab 300 MG PO DAILY, TAB Aspirin (Aspirin Ec) 81 Mg Tab 81 MG PO DAILY Atorvastatin (Lipitor) 80 Mg Tab 80 MG PO DAILY, 0 Refills Furosemide (Lasix) 80 Mg Tab 80 MG PO BID, TAB Insulin Human Regular (Novolin R) 100 Units/1 Ml Inj 3 UNITS SQ BREAKFAST&JOHNIE MEALS TAKE 3 UNITS SQ BEFORE BREAKFAST AND EVENING MEALS. Isosorbide Mononitrate Ext Rel (Imdur Ext Rel) 30 Mg Ertab 15 MG PO QAM, TAB 1/2 TABLET DOSE Levothyroxine Sodium (Synthroid) 50 Mcg Tab 50 MCG PO DAILY, TAB Losartan Potassium (Cozaar) 25 Mg Tab 25 MG PO DAILY, TAB Metolazone (Zaroxolyn) 2.5 Mg Tab 2.5 MG PO WK, TAB TAKE ON SUNDAYS Metoprolol Succinate (Toprol Xl) 25 Mg Tab 25 MG PO BID, TAB Sertraline HCl (Sertraline HCl) 100 Mg Tab 100 MG PO DAILY Discontinued Medications: Glyburide (Glyburide) 5 Mg Tab 5 MG PO DAILY Insulin Detemir (Levemir) 100 Units/Ml Inj 80 UNITS SQ BID Admission Information HPI (per Admitting provider): This is a 66yo M with a PMH of DM II with CKD, CAD s/p stent in 2013, ischemic cardiomyopathy (s/p AICD), systolic CHF (class III) and HTN who presents with two hypoglycemic episodes in the past 24 hours. Previously this AM (around 5am) , patient was found unresponsive on the floor by his partner and EMS was called. BG was 31, glucagon was given en route to the hospital and BG was back up to normal range when checked in ED. Patient was discharged home. Patient was brought back to ED around noon today after he was found unresponsive on the floor again. EMS found BG of 34, gave D10 and BG was back to 131 at ED. Patient states that all confusion, sweating and lethargy has resolved now that his blood sugar is back in normal range. States that he has been eating and drinking normally at home and taking insulin accordingly. Has not seen his PCP for 6 months. Endorses SOB x 2 weeks (which is relieved by his inhaler) and chronic numbness/tingling in BLE. Denies any dizziness, confusion, headache, cough, CP, orthopnea, PND, nausea/vomiting or MSK pain. Physical Exam (per Admitting): General Appearance: WD/WN, no apparent distress, + obese Head: normocephalic, atraumatic Eyes: normal inspection, + pertinent finding (L scleral injection with clear drainage. Patient scratched himself. No pain or itching.) ENT: normal ENT inspection, hearing grossly normal, pharynx normal Neck: supple, no adenopathy, thyroid normal Respiratory/Chest: chest non-tender, lungs clear, normal breath sounds, no respiratory distress, no accessory muscle use Cardiovascular: regular rate, rhythm, normal peripheral pulses Abdomen/GI: normal bowel sounds, non tender, soft, no organomegaly Extremities/Musculoskelatal: normal inspection, normal capillary refill, no pedal edema, + pertinent finding (L BKA ) Neurologic/Psych: embedded developer II-XII nml as tested, no motor/sensory deficits, alert , normal mood/affect, oriented x 3 Skin: normal color, warm/dry, + pertinent finding (Multiple scabbed lesions on R leg. ) Lymphatic: no adenopathy Hospital Course This is a 66yo M with a PMH of DM II with CKD, CAD s/p stent in 2013, ischemic cardiomyopathy (s/p AICD), systolic CHF (class III) and HTN who presents with two hypoglycemic episodes in the past 24 hours that resulted in syncopal events. 1. Hypoglycemia-associated autonomic failure (HAAF): long-standing DMII with known complications of neuropathy and vasculopathy. Pt is unaware of onset of hypoglycemia in setting of long-standing diabetes and likely has impaired counterregulatory responses. He denies changes in eating patterns, weight changes or recent medication changes in the last few months. His current outpatient regimen is Levemir 80 Units BID, NPH 3 Units BID and glyburide 5mg PO daily and this has not been changed for a long time. Will need close monitoring in the outpatient setting. Discharged with recs to stop glyburide and cut Lantus by 50%. Cont current Novolog for prandial coverage. 03/29: Pt states that he will not do fingersticks and check his blood sugars at home if he goes home today because "I don't really care." In the next breath he states that he doesn't want to sit in the hospital because of the cost associated with doing so. However, when I explain that performing fingersticks and allowing home nursing and Case Management to be involved in his care, he states that he actually doesn't care if he has a bill because "I have other bills I can't pay so they are probably going to take me to halfway anyway." We decided together that he would stay until the new antiglycemic regimen is more optimized for him. Also, to allow some time to work with Case Management and his about overcoming barriers to care. Some examples include not being able to use [facility] to get to and from appointments because he is not able to walk to the van outside without help having a better way to ambulate inside of his house. He is currently a danger to himself for at least two reasons including 1) he is unable to notice or call for help when his blood sugar goes dangerously low, 2) he is unable to egress from his home in case of an emergency such as a fire. After speaking with his later, she expressed that she had changed her job to music director 1 week ago in order to better accomodate his health needs and take him to Dr. mohan. The patient was requesting discharge so this was granted with anticipatory plan conveyed to . 2. Dyspnea: appears chronic in description with no evidence of an acute CHF exacerbation. CXR reveals improvement from prior in January when he had his traumatic hemothorax 2/2 multiple R rib fractures. Pt admittedly still has some discomfort from this. May also be an element of deconditioning here with long admission in January. OT has seen patient and recommends he return home. Still awaiting PT eval, but patient requests to leave and has declined PT. With reduced EF 15-20% on last echo in Oct, he will certainly have chronic SOB, and this patient is a poor historian with poor insight into his disease processes. Recommended follow-up with his Room Service Associate as an outpatient and cont medical management of his heart failure at this time. Today (03/29) pt states that all he does is sit in his armchair all day and watch TV. He is clearly deconditioned, contributing to this issue. 3. ICM-chronic, stable, see #2. ICD in place. 4. CAD s/p stent in 2013: Stable, no CP; ECG without changes; cont medication management 5. HTN-controlled, cont home medications including Cozaar 25, metolazone 2.5 weekly, Toprol XL 25 BID and Lasix 80mg PO BID 6. CKD Stage III: Cr is at baseline of 1.3; Avoid nephrotoxic agents. 7. Hypothyroidism: TSH wnl, cont Synthroid at 50mcg daily 8. Depression/anxiety-cont Zoloft at 100 daily 9. R leg lesions: -Multiple small, scabbed lesions with some surrounding erythema but not cellulitis. -States that hardware at his L BKA site irritates his R leg when he ambulates to the bathroom without prosthesis. -wound care visits ordered-appreciate recs/assistance with management 11. Anemia-records have shown steady improvement after hemothorax in January with Hospitalization. Still in process of recovering RBCs. Slight drop overnight likely dilutional and related to phlebotomy. No transfusion required while inpatient. 12. Stage II ulceration on knee-wound care is managing this wound, currently covered with Aquacel and Optifoam. No evidence of superinfection present on exam today. PT declines offer to set him up with outpatient wound care because he had an experience at the [facility] where the doctor recommended removal of his scabs to prevent infection and he disagreed with her telling her that she "didn't know what she was talking about." Incidentally, he also declines Home Health for the same reason, stating "they just want to boss me around and make me do things the way they think things should be done." On day of discharge his sugars were not optimized and PT had not been able to evaluate as patient declined this. Physical exam revealed Stg II ulceration on R knee without evidence of superinfection or drainage. Multiple chronic scabs were on R leg. Otherwise, physical exam was unremarkable and he was hemodynamically stable without symptoms. He was discharged in stable condition with close PCP follow-up scheduled. Of note, several attempts were made to address barriers to care including transportation issues, financial issues and ambulation issues around his house. His will now be able to provide transportation to outpatient visits and after reviewing the idea of a wheelchair and scooter with him, these also wont work because either he doesn't have the dexterity to use them after multiple finger amputations and his house is too small and would not accommodate this. Will be an ongoing issue for outpatient PCP. Cristina Durbin DO [facility] Total time spent on discharge = 60 minutes This includes examination of the patient, discharge planning, medication reconciliation, and communication with other providers. Discharge Instructions Discharge Instructions Date of Service Mar 29, 2017. Admission Reason for Admission: Hypoglycemia Discharge Discharge Diagnosis / Problem: Syncope 2/2 hypoglycemia, HAAF Discharge Goals Goal(s): Prevent Disease Progression Activity Recommendations Activity Limitations: per Instructions/Follow-up section . Instructions / Follow-Up Instructions / Follow-Up Please take all medications as instructed. Please note your GLYBURIDE has been STOPPED. This contributes to severe low blood sugar. Please note an adjustment has been made to DECREASE your LEVEMIR dosage to 25 Units twice daily. A new script was sent electronically to your preferred pharmacy on file. I have engaged with your to check you blood sugar and record the numbers so I can followup this week and see how things are going. This is in an effort to transition you to Dr. Rogelio Robin, who will be your new primary care physician (PCP) at the [facility]. He will be seeing you in follow-up this April 03 @ 11:05am. Your has agreed to take you to this appointment to establish care. This appointment is very important, and it is highly encouraged that you make it if you are able. There were some residual abnormalities on your chest xray performed while you were in the hospital. I would recommend a follow-up chest x-ray in 4-6 weeks to ensure improvement/resolution. This can be ordered through your PCP. It was a pleasure taking care of you! Call if you have any questions or problems. You can reach a [facility] Hospitalist on duty at [facility] 24 hours a day by calling [phone]. Take care of yourself. Cristina Durbin, DO [facility] Additional Copies To Rogelio Robin M.D.LORETTA)
[2017-03-29] MEDS ORDERED: LVMIPUC SQ (17:32)
[2017-03-30] MEDS ORDERED: INSULIN ASPART 100 UNITS/ML 3 ML PEN SC SCH
[2017-04-02] MEDS ORDERED: METOLAZONE 2.5 MG TAB PO SCH (08:00)
--- NOTE | 2017-04-05 09:41 | Progress Note ---
Progress Note Date of Service Apr 05, 2017. Progress Note I saw that Mr. Koroma missed his appointment with Dr. Robin on Monday. I called his who did not answer and had no vmail set up on her phone. I spoke with her earlier about calling her to check his sugars by phone until PCP appointment, which she stated she would take him to, and she said that would be fine. With multiple admissions this year and severe diabetes, this was an attempt to help keep him safe at home and out of the hospital. Appreciate outpatient case management assistance with this patient. Dr. Robin already sent a letter to him requesting that he make a follow-up appointment. BRIGITTE
== END 2017-03-29 17:57 | disposition home or self-care (01) | DRG 638 ==
LOC: EDBD 11:55 → C.EDA 11:56 → C.4E 16:26 → ENRESERV 16:56 → OBSVTOIN 03-28 18:45
PROVIDERS: ADMIT Internal Medicine; ATTEND Hospitalist
DX: E11.649 Type 2 diabetes mellitus with hypoglycemia without coma (principal); I13.0 Hypertensive heart and chronic kidney disease with heart failure and stage 1 through stage 4 chronic kidney disease, or unspecified chronic kidney disease; I50.22 Chronic systolic (congestive) heart failure; L97.819 Non-pressure chronic ulcer of other part of right lower leg with unspecified severity; E11.43 Type 2 diabetes mellitus with diabetic autonomic (poly)neuropathy; I25.5 Ischemic cardiomyopathy; E11.22 Type 2 diabetes mellitus with diabetic chronic kidney disease; N18.3 Chronic kidney disease, stage 3 (moderate); E11.51 Type 2 diabetes mellitus with diabetic peripheral angiopathy without gangrene; R55 Syncope and collapse; E11.622 Type 2 diabetes mellitus with other skin ulcer; I25.10 Atherosclerotic heart disease of native coronary artery without angina pectoris; E03.9 Hypothyroidism, unspecified; R06.00 Dyspnea, unspecified; R53.81 Other malaise; D72.829 Elevated white blood cell count, unspecified; D64.9 Anemia, unspecified; R26.2 Difficulty in walking, not elsewhere classified; F32.9 Major depressive disorder, single episode, unspecified; F41.9 Anxiety disorder, unspecified; E66.9 Obesity, unspecified; Z68.38 Body mass index [BMI] 38.0-38.9, adult; Z53.29 Procedure and treatment not carried out because of patient's decision for other reasons; Z95.810 Presence of automatic (implantable) cardiac defibrillator; Z95.5 Presence of coronary angioplasty implant and graft; Z89.512 Acquired absence of left leg below knee; Z89.022 Acquired absence of left finger(s); Z89.021 Acquired absence of right finger(s); Z86.14 Personal history of Methicillin resistant Staphylococcus aureus infection; Z79.82 Long term (current) use of aspirin; Z79.84 Long term (current) use of oral hypoglycemic drugs; Z79.4 Long term (current) use of insulin; Z79.899 Other long term (current) drug therapy

== ENCOUNTER 2017-06-19 22:55 | Inpatient (IN) | payer BC, OTHER ==
[~2017-06-19] VITALS: Ht 177.8 cm; Wt 113.5 kg
[~2017-06-19 22:55] MED LIST changes: -ALLO300T2 PO; -KFL500 PO; -LVMI SQ; +LVMIPUC SQ; -MCR5 PO; +METO-478 PO; -METO1TAB31 PO; -SERT50TA PO; -ULT50X PO
--- NOTE | 2017-06-19 23:35 | EMERGENCY ROOM VISIT NOTE ---
History Report prepared by Airam: Judith Yi Under the Supervision of: Dr. Matias Ramos M.D. First contact with patient: 23:28 Chief Complaint: LETHARGIC Stated Complaint: ALTERED MENTAL STATUS Nursing Triage Summary: Per EMS pt's states patient has been less responsive than normal today. History of Present Illness The patient is a 66 year old male who presents to the Emergency Room with complaints of sudden lethargy beginning today. The patient denies having chest pain, abdominal pain, back pain, headaches, neck pain, and fevers. He also denies a recent change in medication. Limited HPI secondary to AMS. Source of History: patient History Limited By: AMS Onset: today Position: other (global) Quality: other (lethargy) Associated Symptoms: No fevers, No headache, No neck pain, No chest pain, No abdominal pain, No back pain Review of Systems See HPI for pertinent positives & negatives. A total of 10 systems reviewed and were otherwise negative. Past Medical & Surgical Medical Problems: (1) Acute encephalopathy (2) Adjustment disorder with depressed mood (3) Biventricular ICD (implantable cardioverter-defibrillator) in place (4) CAD (coronary artery disease) (5) CHF (congestive heart failure) (6) Chronic systolic CHF (congestive heart failure) (7) Diabetic retinopathy (8) DM type 2 (diabetes mellitus, type 2) (9) Dyslipidemia (10) Gout (11) HTN (hypertension) (12) Hypothyroidism (13) Lung nodule (14) Neuropathy due to type 2 diabetes mellitus (15) Nonischemic cardiomyopathy Surgical Problems: (1) History of amputation of finger of left hand (2) History of implantable cardioverter-defibrillator (ICD) placement (3) Hx of BKA (4) S/P coronary artery stent placement Family History Diabetes mellitus MOTHER FH: CAD (coronary artery disease) FATHER Social History Smoking Status: Unknown if Ever Smoked Drug Use: none Marital Status: Housing Status: lives with family Occupation Status: disabled Current/Historical Medications Scheduled Allopurinol (Zyloprim), 300 MG PO DAILY Aspirin (Aspirin Ec), 81 MG PO DAILY Atorvastatin (Lipitor), 80 MG PO DAILY Furosemide (Lasix), 80 MG PO BID Glyburide (Micronase), 5 MG PO DAILYBB Insulin Detemir (Levemir), 25 UNITS SQ BID Insulin Human Regular (Novolin R), 3 UNITS SQ BREAKFAST&JOHNIE MEALS Isosorbide Mononitrate Ext Rel (Imdur Ext Rel), 15 MG PO QAM Levothyroxine Sodium (Synthroid), 50 MCG PO DAILY Losartan Potassium (Cozaar), 25 MG PO DAILY Metolazone (Zaroxolyn), 2.5 MG PO WK Metoprolol Succinate (Toprol Xl), 25 MG PO BID Sertraline HCl (Sertraline HCl), 100 MG PO DAILY Scheduled PRN Albuterol Sulfate (Proair Respiclick), 2 PUFFS INH Q4 PRN for SOB/Wheezing Meclizine HCl (Meclizine 25), 25 MG PO TID PRN for dizziness Allergies Coded Allergies: Gemfibrozil (Verified Allergy, Unknown, 06/19/17) Physical Exam Vital Signs Date Time Temp Pulse Resp B/P (MAP) Pulse Ox O2 Delivery O2 Flow Rate FiO2 06/20/17 03:14 36.7 89 18 147/92 94 Room Air 06/20/17 02:59 87 06/20/17 02:30 87 16 176/94 95 Room Air 06/20/17 01:22 36.5 82 16 154/100 96 Room Air 06/20/17 00:37 77 16 153/97 95 Room Air 06/19/17 23:27 96 Room Air 06/19/17 23:14 34.8 85 24 187/109 96 Room Air 06/19/17 23:09 82 Physical Exam GENERAL: Patient is chronically unwell appearing, tired appearing, and in no acute distress. HEENT: No acute trauma, normocephalic atraumatic, mucous membranes moist, no nasal congestion, no scleral icterus. NECK: No stridor, no adenopathy, no meningismus, trachea is midline. LUNGS: No dyspnea. Clear to auscultation and equal bilaterally. No wheeze, no rhonchi. HEART: Regular rate and rhythm. No murmurs, rubs, gallops appreciated. ABDOMEN: Soft, nontender, bowel sounds positive, no masses appreciated, no peritonitis. BACK: No midline tenderness, no CVA tenderness EXTREMITIES: Normal motion all extremities, no cyanosis, no edema. Left leg amputation. NEUROLOGIC: Alert and oriented, no acute motor or sensory deficits, no focal weakness, cranial nerves grossly intact. Sleepy, but awakens and answers all questions. SKIN: No rash, no jaundice, no diaphoresis. Chronic skin breakdown of anterior right holland. Medical Decision & Procedures ER Provider Diagnostic Interpretation: Radiology results and stated below per my review and [facility]. CT HEAD: Compare with prior CT 01/19/17, new hypodensity right basal ganglia/anterior limb of internal capsule. This is compatible with an interval but age- indeterminate infarct. Consider correlation with MRI to evaluate for acute infarct. No acute intracranial hemorrhage. White matter hyperdensities, most likely representing small vessel ischemic change. Global cerebral volume loss. Visualized paranasal sinuses and mastoid air cells are clear. Infiltration of fat and skin thickening overlying the inferior occipital region and posterior upper neck, nonspecific ad similar to prior CT 01/19/17. X ray results are stated below per my interpretation. X-ray 1 View Chest: Mild congestive findings similar to previous. No acute infiltrate. No obvious effusion. Laboratory Results 06/20/17 00:11 Red Blood Count 4.52, Mean Corpuscular Volume 80.3, Mean Corpuscular Hemoglobin 27.2, Mean Corpuscular Hemoglobin Concent 33.9, Mean Platelet Volume 9.2, Neutrophils (%) (Auto) 87.9, Lymphocytes (%) (Auto) 6.8, Monocytes (%) (Auto) 4.2, Eosinophils (%) (Auto) 0.5, Basophils (%) (Auto) 0.2, Neutrophils # (Auto) 9.94, Lymphocytes # (Auto) 0.77, Monocytes # (Auto) 0.48, Eosinophils # (Auto) 0.06, Basophils # (Auto) 0.02 06/20/17 00:11 Test 06/19/17 23:49 06/20/17 00:09 06/20/17 00:11 06/20/17 00:15 Ethyl Alcohol mg/dL < 3.0 mg/dl (0-3) Bedside Glucose 84 mg/dl (70-99) White Blood Count 11.32 K/uL (4.8-10.8) Red Blood Count 4.52 M/uL (4.7-6.1) Hemoglobin 12.3 g/dL (14.0-18.0) Hematocrit 36.3 % (42-52) Mean Corpuscular Volume 80.3 fL (80-100) Mean Corpuscular Hemoglobin 27.2 pg (25-34) Mean Corpuscular Hemoglobin Concent 33.9 g/dl (32-36) Platelet Count 273 K/uL (130-400) Mean Platelet Volume 9.2 fL (7.4-10.4) Neutrophils (%) (Auto) 87.9 % Lymphocytes (%) (Auto) 6.8 % Monocytes (%) (Auto) 4.2 % Eosinophils (%) (Auto) 0.5 % Basophils (%) (Auto) 0.2 % Neutrophils # (Auto) 9.94 K/uL (1.4-6.5) Lymphocytes # (Auto) 0.77 K/uL (1.2-3.4) Monocytes # (Auto) 0.48 K/uL (0.11-0.59) Eosinophils # (Auto) 0.06 K/uL (0-0.5) Basophils # (Auto) 0.02 K/uL (0-0.2) RDW Standard Deviation 47.7 fL (36.4-46.3) RDW Coefficient of Variation 16.6 % (11.5-14.5) Immature Granulocyte % (Auto) 0.4 % Immature Granulocyte # (Auto) 0.05 K/uL (0.00-0.02) Prothrombin Time 10.7 SECONDS (9.0-12.0) Prothromb Time International Ratio 1.0 (0.9-1.1) Activated Partial Thromboplast Time 29.5 SECONDS (21.0-31.0) Partial Thromboplastin Ratio 1.1 Anion Gap 7.0 mmol/L (3-11) Estimated GFR () 90.5 Estimated GFR (Non- 78.1 BUN/Creatinine Ratio 23.7 (10-20) Calcium Level 8.9 mg/dl (8.5-10.1) Total Bilirubin 0.5 mg/dl (0.2-1) Direct Bilirubin < 0.1 mg/dl (0-0.2) Aspartate Amino Transf (AST/SGOT) 11 U/L (15-37) Alanine Aminotransferase (ALT/SGPT) 16 U/L (12-78) Alkaline Phosphatase 116 U/L (45-117) Troponin I 0.022 ng/ml (0-0.045) Total Protein 7.5 gm/dl (6.4-8.2) Albumin 3.1 gm/dl (3.4-5.0) Procalcitonin < 0.05 ng/ml (0-0.5) Bedside Lactic Acid Venous 1.39 mmol/L (0.90-1.70) Test 06/20/17 01:15 06/20/17 02:36 Urine Color YELLOW Urine Appearance CLEAR (CLEAR) Urine pH 5.0 (4.5-7.5) Urine Specific [place] 1.018 (1.000-1.030) Urine Protein 3+ (NEG) Urine Glucose (UA) NEG (NEG) Urine Ketones NEG (NEG) Urine Occult Blood 1+ (NEG) Urine Nitrite NEG (NEG) Urine Bilirubin NEG (NEG) Urine Urobilinogen NEG (NEG) Urine Leukocyte Esterase NEG (NEG) Urine WBC (Auto) 0 /hpf (0-5) Urine RBC (Auto) 5-10 /hpf (0-4) Urine Hyaline Casts (Auto) 1-5 /lpf (0-5) Urine Epithelial Cells (Auto) 5-10 /lpf (0-5) Urine Bacteria (Auto) NEG (NEG) Urine Opiates Screen NEG (NEG) Urine Methadone, Qualitative NEG (NEG) Urine Barbiturates NEG (NEG) Urine Phencyclidine (PCP) Level NEG (NEG) Ur Amphetamine/Methamphetamine NEG (NEG) MDMA (Ecstasy) Screen NEG (NEG) Urine Benzodiazepines Screen NEG (NEG) Urine Cocaine Metabolite NEG (NEG) Urine Marijuana (THC) NEG (NEG) Laboratory results as reviewed by me. ECG Indication: altered mental status Rate (beats per minute): 81 Rhythm: normal sinus Findings: prolonged QT, other (poor baseline, intraventricular block) ED Course 2329: The patient was evaluated in room A2. A complete history and physical exam was performed. 0035: I checked on the patient. He is still awake and answers questions. 0045: Discussed the patient's case with Dr. Lane. The patient will be evaluated for further treatment and disposition. 0100: The patient is stable. He still wakes up and answers questions but cannot sit up in bed. 0120: Upon reevaluation, the patient is resting. Discussed results and treatment plan with the patient. He verbalized understanding and agreement with the treatment plan. The patient will be evaluated for further management. Medical Decision Differential: Toxicological, Infectious, Stroke, SAH, Trauma, Electrolyte Abnormality, Hypoglycemia, Alcohol Intoxication, Drug Intoxication, Cardiac Abnormality, Sepsis, Meningitis/Encephalitis, Trauma, Excited Delirium, Serotonin Syndrome, Psychiatric, amongst other pathologies entertained. 66 yr old poorly controlled diabetic with multiple health comorbidities arrives from home after reportedly 12+ hours of fatigue/tired. On exam he is sleepy, easily awoken without evidence meningitis/encephalitis by history of exam. Review vitals not mild hypothermia which resolved with Leslie Hugger and some HTN which gradually improved without intervention. Labs unremarkable with normal lactic acid and normal procalcitonin and a WBC just above normal limit but below his previous levels. It seems unlikely this is infectious related and without other obvious source I feel that holding on abx reasonable. Given history I don't feel there is current indication for abx. By exam and work-up I do not feel this is meningitis and I feel LP would be more dangerous than beneficial at this time. Furthermore, CT head clearly shows new area of infarct from ct just a few months ago. I suspect his AMS is secondary to this. No clear evidence this is drug related. Does not appear to be renal/liver failure related. [place] Drug Monitoring Program Search Results: patient reviewed within database Drug Monitoring Findings: The patient has a single limited Tramadol scrip from 5 months ago. Medication Reconcilliation Current Medication List: was personally reviewed by me Blood Pressure Screening Patient's blood pressure: Elevated blood pressure Will be monitored by hospitalist. Consults Time Called: 0010 Consulting Physician: Dr. Lane Returned Call: 0045 Discussed the patient's case. The patient will be evaluated for further treatment and disposition. Impression Primary Impression: Altered mental status Additional Impressions: Hypothermia Stroke Scribe Attestation The scribe's documentation has been prepared under my direction and personally reviewed by me in its entirety. I confirm that the note above accurately reflects all work, treatment, procedures, and medical decision making performed by me. Departure Information Dispostion Being Evaluated By Hospitalist Referrals No Doctor, Assigned (PCP) Patient Instructions My [facility] Health Problem Qualifiers
[2017-06-19] MEDS ORDERED: LVMIPUC SQ (23:44)
[2017-06-19] MEDS ORDERED: GLYB5TAB8 PO (23:48)
[2017-06-19] MEDS ORDERED: MECL-91 PO (23:51)
[2017-06-19] MEDS ORDERED: ALBU18002 INH (23:52)
[2017-06-20] VITALS (11 sets, daily range): BP systolic 116–172; BP diastolic 66–109; PULSE 81–99; TEMP 36.4–36.8; O2SAT 94–97; Ht 177.8 cm; Wt 113.5 kg
[2017-06-20 00:23] LABS: BASO % 0.2 %; BASO ABS # 0.02 K/uL (0-0.2); COMPLETE YES; EOS % 0.5 %; HEMATOCRIT 36.3 % (42-52); IG% 0.4 %; LYMPH % 6.8 %; LYMPH ABS # 0.77 K/uL (1.2-3.4); MEAN CELL VOLUME 80.3 fL (80-100); MEAN CORPUSCULAR HEMOGLOBIN 27.2 pg (25-34); MEAN CORPUSCULAR HGB CONC 33.9 g/dl (32-36); MEAN PLATELET VOLUME 9.2 fL (7.4-10.4); MONO % 4.2 %; NEUT % 87.9 %; PLATELET COUNT 273 K/uL (130-400); RED BLOOD COUNT 4.52 M/uL (4.7-6.1); WHITE BLOOD COUNT 11.32 K/uL (4.8-10.8)
[2017-06-20 00:34] LABS: PARTIAL THROMBOPLASTIN RATIO 1.1; PROTHROMBIN TIME (PATIENT) 10.7 SECONDS (9.0-12.0)
[2017-06-20 00:42] LABS: ALT/SGPT 16 U/L (12-78); AST/SGOT 11 U/L (15-37); BLOOD UREA NITROGEN 24 mg/dl (7-18); BUN/CREATININE RATIO 23.7 (10-20); CALCIUM 8.9 mg/dl (8.5-10.1); CARBON DIOXIDE 28 mmol/L (21-32); CHLORIDE 107 mmol/L (98-107); GLUCOSE 85 mg/dl (70-99); POTASSIUM 3.7 mmol/L (3.5-5.1); SODIUM 142 mmol/L (136-145)
[2017-06-20 00:47] LABS: ALKALINE PHOSPHATASE 116 U/L (45-117)
[2017-06-20 01:33] LABS: URINE APPEARANCE CLEAR (CLEAR); URINE BILIRUBIN NEG (NEG); URINE COLOR YELLOW; URINE NITRITE NEG (NEG); URINE SPECIFIC GRAVITY 1.018 (1.000-1.030); UROBILINOGEN NEG (NEG); ZZURINE CULT IF INDIC CATH NO
[2017-06-20 01:36] LABS: MANUAL MICROSCOPIC REQUIRED? NO; REVIEW REQ? NO
[2017-06-20 01:55] LABS: BENZODIAZEPINE, URINE NEG (NEG); COCAINE,URINE NEG (NEG); PHENCYCLIDINE, URINE NEG (NEG)
--- NOTE | 2017-06-20 01:55 | History and Physical ---
History & Physical Date & Time of Service: Jun 20, 2017 at 01:55 Chief Complaint: Altered Mental Status Primary Care Physician: No Doctor, Assigned History of Present Illness Source: patient Patient is a 66 yr male with PMH of DM II, Hypoglycemia associated autonomic failure, ICD with EF: 20% S/P ICD placement, CAD S/P Stent in 2013, CKD III, Hypothyroidism, Depression, anxiety, chronic ambulatory dysfunction, diabetic vasculopathy s/p L BKA and multiple amputations of fingers and other problems presents with history of sudden onset of lethargy which was noticed by his spouse today and she called 911 and was brought to the hospital for further evaluation as per the ED staff. History is limited secondary to patient's AMS. Patient states he remembers that " I might have spaced out for 2 hours" and was unsure about the events or the timing. No family member is available at bedside. Patient is currently oriented X3 and denies any fall, head trauma, LOC , headache, weakness, numbness, change in vision, double/blurry vision, vertigo , slurred speech, facial deformity, bowel/bladder incontinence. He states he has chronic SOB on exertion and intermittent dizziness. Denies any history of chest pain, SOB, orthopnea, PND, cough, wheezing, fever, chills, nausea, vomiting, abdominal pain, diarrhea, dysuria. Past Medical/Surgical History Medical Problems: (1) Adjustment disorder with depressed mood Status: Chronic (2) Biventricular ICD (implantable cardioverter-defibrillator) in place Status: Chronic (3) CAD (coronary artery disease) Permanent Comment: s/p stent to LAD in 04/2014 Status: Chronic (4) CHF (congestive heart failure) Status: Chronic (5) Chronic systolic CHF (congestive heart failure) Permanent Comment: echo 10/08/14- LV cavity size moderately enlarged, mild concentric LVH, diffuse moderate LV hypokinesis with superimposed more severe hypokinesis/akinesis involving the mid and apical inferior wall, anterior septum , and LV apex. LV apex is akinetic. LV EF = 30%, septal motion abnormal consistent with intrventricular conduction delay, LV diastolic function is abnormal, mild mitral regurgitation Status: Chronic (6) Diabetic retinopathy Status: Chronic (7) DM type 2 (diabetes mellitus, type 2) Status: Chronic (8) Dyslipidemia Status: Chronic (9) Gout Status: Chronic (10) HTN (hypertension) Status: Chronic (11) Hypothyroidism Status: Chronic (12) Lung nodule Status: Chronic (13) Neuropathy due to type 2 diabetes mellitus Status: Chronic (14) Nonischemic cardiomyopathy Status: Chronic Surgical Problems: (1) History of amputation of finger of left hand Status: Chronic (2) History of implantable cardioverter-defibrillator (ICD) placement Status: Chronic (3) Hx of BKA Permanent Comment: left Status: Chronic (4) S/P coronary artery stent placement Permanent Comment: CLAUDINE to LAD in 04/2014 Status: Chronic Family History Diabetes mellitus MOTHER FH: CAD (coronary artery disease) FATHER Reviewed. As above Social History Smoking Status: Never Smoker Alcohol Use: none Drug Use: none Marital Status: Housing status: lives with significant other Occupational Status: disabled Immunizations History of Influenza Vaccine: Yes Influenza Vaccine Date: Jun 27, 2015 History of Tetanus Vaccine?: Yes Tetanus Immunization Date: Aug 24, 2010 History of Pneumococcal: Yes Pneumococcal Date: Jul 03, 1995 History of Hepatitis B Vaccine: No Multi-Drug Resistant Organisms History of MDRO: Yes Type of MDRO: MRSA Allergies Coded Allergies: Gemfibrozil (Verified Allergy, Unknown, 06/19/17) Home Medications Scheduled Allopurinol (Zyloprim), 300 MG PO DAILY Aspirin (Aspirin Ec), 81 MG PO DAILY Atorvastatin (Lipitor), 80 MG PO DAILY Furosemide (Lasix), 80 MG PO BID Glyburide (Micronase), 5 MG PO DAILYBB Insulin Detemir (Levemir), 25 UNITS SQ BID Insulin Human Regular (Novolin R), 3 UNITS SQ [employer]AKFA[employer] Isosorbide Mononitrate Ext Rel (Imdur Ext Rel), 15 MG PO QAM Levothyroxine Sodium (Synthroid), 50 MCG PO DAILY Losartan Potassium (Cozaar), 25 MG PO DAILY Metolazone (Zaroxolyn), 2.5 MG PO WK Metoprolol Succinate (Toprol Xl), 25 MG PO BID Sertraline HCl (Sertraline HCl), 100 MG PO DAILY Scheduled PRN Albuterol Sulfate (Proair Respiclick), 2 PUFFS INH Q4 PRN for SOB/Wheezing Meclizine HCl (Meclizine 25), 25 MG PO TID PRN for dizziness Review of Systems See HPI for pertinent positives & negatives. A total of 10 systems reviewed and were otherwise negative. But may not be reliable Physical Exam Vital Signs Date Time Temp Pulse Resp B/P (MAP) Pulse Ox O2 Delivery O2 Flow Rate FiO2 06/20/17 01:22 36.5 82 16 154/100 96 Room Air 06/20/17 00:37 77 16 153/97 95 Room Air 06/19/17 23:27 96 Room Air 06/19/17 23:14 34.8 85 24 187/109 96 Room Air 06/19/17 23:09 82 General Appearance: no apparent distress, + obese Head: normocephalic, atraumatic Eyes: normal inspection, PERRL, EOMI, sclerae normal ENT: normal ENT inspection, hearing grossly normal Neck: supple, no JVD, trachea midline Respiratory/Chest: lungs clear, no respiratory distress, no accessory muscle use, + decreased breath sounds Cardiovascular: regular rate, rhythm, no murmur, + pertinent finding (1+ RLE edema) Abdomen/GI: normal bowel sounds, non tender, soft, + pertinent finding (Obese) Back: normal inspection Extremities/Musculoskelatal: normal inspection, + pertinent finding (Trace edema RLE, L BKA, RUE finger Wound oozing pus) 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, no motor/sensory deficits, alert, normal mood/affect, oriented x 3, + pertinent finding (RLE BKA, exam is limited) Skin: normal color, + pertinent finding (Multiple scatch wounds on RLE) Diagnostics Laboratory Results Results Past 24 Hours Test 06/19/17 23:49 06/20/17 00:09 06/20/17 00:11 06/20/17 00:15 Range/Units Ethyl Alcohol mg/dL < 3.0 0-3 mg/dl Bedside Glucose 84 70-99 mg/dl White Blood Count 11.32 4.8-10.8 K/uL Red Blood Count 4.52 4.7-6.1 M/uL Hemoglobin 12.3 14.0-18.0 g/dL Hematocrit 36.3 42-52 % Mean Corpuscular Volume 80.3 80-100 fL Mean Corpuscular Hemoglobin 27.2 25-34 pg Mean Corpuscular Hemoglobin Concent 33.9 32-36 g/dl Platelet Count 273 130-400 K/uL Mean Platelet Volume 9.2 7.4-10.4 fL Neutrophils (%) (Auto) 87.9 % Lymphocytes (%) (Auto) 6.8 % Monocytes (%) (Auto) 4.2 % Eosinophils (%) (Auto) 0.5 % Basophils (%) (Auto) 0.2 % Neutrophils # (Auto) 9.94 1.4-6.5 K/uL Lymphocytes # (Auto) 0.77 1.2-3.4 K/uL Monocytes # (Auto) 0.48 0.11-0.59 K/uL Eosinophils # (Auto) 0.06 0-0.5 K/uL Basophils # (Auto) 0.02 0-0.2 K/uL RDW Standard Deviation 47.7 36.4-46.3 fL RDW Coefficient of Variation 16.6 11.5-14.5 % Immature Granulocyte % (Auto) 0.4 % Immature Granulocyte # (Auto) 0.05 0.00-0.02 K/uL Prothrombin Time 10.7 9.0-12.0 SECONDS Prothromb Time International Ratio 1.0 0.9-1.1 Activated Partial Thromboplast Time 29.5 21.0-31.0 SECONDS Partial Thromboplastin Ratio 1.1 Sodium Level 142 136-145 mmol/L Potassium Level 3.7 3.5-5.1 mmol/L Chloride Level 107 98-107 mmol/L Carbon Dioxide Level 28 21-32 mmol/L Anion Gap 7.0 3-11 mmol/L Blood Urea Nitrogen 24 7-18 mg/dl Creatinine 1.00 0.60-1.40 mg/dl Estimated GFR () 90.5 Estimated GFR (Non- 78.1 BUN/Creatinine Ratio 23.7 10-20 Random Glucose 85 70-99 mg/dl Calcium Level 8.9 8.5-10.1 mg/dl Total Bilirubin 0.5 0.2-1 mg/dl Direct Bilirubin < 0.1 0-0.2 mg/dl Aspartate Amino Transf (AST/SGOT) 11 15-37 U/L Alanine Aminotransferase (ALT/SGPT) 16 12-78 U/L Alkaline Phosphatase 116 45-117 U/L Troponin I 0.022 0-0.045 ng/ml Total Protein 7.5 6.4-8.2 gm/dl Albumin 3.1 3.4-5.0 gm/dl Procalcitonin < 0.05 0-0.5 ng/ml Bedside Lactic Acid Venous 1.39 0.90-1.70 mmol/L Test 06/20/17 01:15 Range/Units Urine Color YELLOW Urine Appearance CLEAR CLEAR Urine pH 5.0 4.5-7.5 Urine Specific [place] 1.018 1.000-1.030 Urine Protein 3+ NEG Urine Glucose (UA) NEG NEG Urine Ketones NEG NEG Urine Occult Blood 1+ NEG Urine Nitrite NEG NEG Urine Bilirubin NEG NEG Urine Urobilinogen NEG NEG Urine Leukocyte Esterase NEG NEG Urine WBC (Auto) 0 0-5 /hpf Urine RBC (Auto) 5-10 0-4 /hpf Urine Hyaline Casts (Auto) 1-5 0-5 /lpf Urine Epithelial Cells (Auto) 5-10 0-5 /lpf Urine Bacteria (Auto) NEG NEG Microbiology Results 06/20/17 Blood Culture, Received Pending 06/19/17 Blood Culture, Received Pending Diagnostic Radiology CT head: Preliminary report showed New Hypodensity of Right basal ganglia/anterior limb of Internal Capsule, Age indeterminate Infarct CXR: Mild congestive findings unchanged from prior on my exam EKG EKG; NSR, [id number] Impression Assessment and Plan Encephalopathy:could be multifactorial Acute CVA Likely secondary to CVA/Possible sepsis; ? hypoglycemia Presented with confusion, Hypothermia, Mild leukocytosis CT head: preliminary report showed New Hypodensity of Right basal ganglia/ anterior limb of Internal Capsule, Age indeterminate Infarct Not a candidate for tPA- currently no focal deficits, unknown time of onset No focal deficits on exam Admit in Tele Stroke work up including lipid panel, A1C, ECHO MRI Brain, MRA Head/Neck can not be done secondary to ICD Will plan to repeat CT head Speech and swallow eval Continue aspirin, Lipitor Neuro checks, Neurology consulted PT/OT Allow permissive HTN in setting of acute CVA Tox screen negative Possible sepsis Presented with confusion, Hypothermia, Mild leukocytosis Normal lactate, procalcitonin Possible source; right finger wound Start on IV Vanco and Zosyn Blood and Wound cultures UA normal wound care consulted for possible debridement DM II: Diabetic Neuropathy/Vasculopathy Will hold oral diabetic meds Last A1c:6.6 on 03/28/17 ISS, basal Insulin, Accu checks, Diabetic diet H/O Syncope 2/2 Hypoglycemia associated autonomic failure: Fall precautions PT/OT Ischemic cardiomyopathy Last EF: 20% S/P ICD placement No signs of CHF exacerbation Diuretics currently held in setting of acute CVA and possible sepsis CAD S/P Stent in 2013: Continue ASA, statins, BB CKD III: Cr stable Monitor renal function Hypothyroidism: continue levothyroxine Check TSH Depression, anxiety: continue Zoloft DVT Px: Heparin SQ Code Status; Full Code
[2017-06-20] MEDS ORDERED: ACETAMINOPHEN 325 MG TAB PO PRN (02:45)
[2017-06-20] MEDS ORDERED: PHARMACIST DISCHARGE MED REC CONSULT PRN (02:45)
[2017-06-20] MEDS ORDERED: ONDANSETRON INJ 2 MG/ML 2 ML VIAL IV PRN (02:45)
[2017-06-20] MEDS ORDERED: GLUCAGON FOR INJ 1 MG VIAL SQ PRN (03:00)
[2017-06-20] MEDS ORDERED: GLUCOSE 40% GEL 15 GM TUBE PO PRN (03:00)
[2017-06-20] MEDS ORDERED: GLUCOSE 10 TABS/TUBE PO PRN (03:00)
[2017-06-20] MEDS ORDERED: DEXTROSE 50% 50 ML SYR IV PRN (03:00)
[2017-06-20] MEDS ORDERED: ASPIRIN 324 MG CHEW PO STA (03:14)
[2017-06-20] MEDS ORDERED: ALBUTEROL 0.083% NEBU SOLN 3 ML VIAL INH PRN (03:15)
[2017-06-20] MEDS ORDERED: VANCOMYCIN CONSULT ACTIVE PRN (03:27)
[2017-06-20] MEDS ORDERED: PIPERACILL/TAZOBAC CONSULT ACTIVE PRN (03:30)
[2017-06-20] MEDS: PATIENT'S HEIGHT AND/OR WEIGHT NEEDED SCH ×2 (03:30→05:38)
[2017-06-20] MEDS ORDERED: VANCOMYCIN INJ 2,750 MG in SODIUM CHLORIDE 0.9% 500ML 500 ML IV STA (03:50)
[2017-06-20] MEDS ORDERED: PIPERACILL/TAZOBAC IV 4.5 GM in DEXTROSE 5% 100ML IV ONE (04:30)
[2017-06-20] MEDS ORDERED: PROMETHAZINE HCL INJ 12.5 MG in SODIUM CHLORIDE 0.9% 50ML 50 ML IV PRN (04:45)
[2017-06-20] MEDS: HEPARIN SOD 5000 UNIT/0.5 ML CARP SQ SCH ×3 (06:41→21:36)
[2017-06-20] MEDS: LEVOTHYROXINE 50 MCG TAB PO SCH (06:41)
--- NOTE | 2017-06-20 06:42 | DIAGNOSTIC IMAGING REPORT ---
CHEST ONE VIEW PORTABLE CLINICAL HISTORY: Acute change in mental status COMPARISON STUDY: 03/27/2017 FINDINGS: The heart remains enlarged. There is a left subclavian pacer/defibrillator present. There is no focal pulmonary consolidation. There is central vascular prominence. No significant pleural fusions are visualized.[ IMPRESSION: Cardiomegaly with mild central pulmonary vascular congestion suspected. No evidence of focal pulmonary consolidation Electronically signed by: Nasir Butts M.D. 06/20/2017 6:40 AM Dictated Date/Time: 06/20/2017 6:40 AM
[2017-06-20] MEDS ORDERED: INFLUENZA ADMINISTRATION CHARGE ONE (06:45)
[2017-06-20] MEDS ORDERED: INFLUENZA VACCINE HIGH DOSE 65+ 0.5 ML SYR IM. ONE (06:45)
--- NOTE | 2017-06-20 06:52 | DIAGNOSTIC IMAGING REPORT ---
CT OF THE HEAD WITHOUT CONTRAST CLINICAL HISTORY: Altered mental status. COMPARISON STUDY: Head CT January 19, 2017. CT DOSE: 614.27 mGy.cm TECHNIQUE: Helical axial images of the head were obtained without IV contrast. Automated exposure control was utilized for the study. A dose lowering technique was utilized adhering to the principles of ALARA. FINDINGS: No acute intracranial hemorrhage, midline shift or mass effect is present. A 1.7 cm hypodensity within the right caudate head and anterior limb of the right internal capsule is new since head CT of January 19, 2017. There is no significant mass effect. Ventricular system is stable. The basilar cisterns are patent. There are no extra-axial collections. There are no significant calvarial abnormalities. A suspected left frontal scalp lipoma is noted. IMPRESSION: 1.7 cm hypodensity within the right caudate head and anterior limb of the internal capsule which is new since head CT of January 19, 2017 and consistent with an acute to subacute infarct. No mass effect or hemorrhage. Electronically signed by: Ramesh Ham M.D. 06/20/2017 6:51 AM Dictated Date/Time: 06/20/2017 6:47 AM
[2017-06-20] MEDS: INSULIN ASPART 100 UNITS/ML 3 ML PEN SC SCH ×4 (07:00→21:35)
--- NOTE | 2017-06-20 07:10 | Pharmacy Progress Note ---
Pharmacy Abx Initial Consult Date of Service Jun 20, 2017. Pharmacy Dosing Scope Date of Consult: 06/20/17 Consultation requested by: Dr. Lane Pharmacy is consulted to initiate IV VANCOMYCIN and ZOSYN therapy, order appropriate labs and adjust drug dose/frequency. Subjective The patient is a 66 year old male admitted on Jun 20, 2017 at 02:47 for lethargy , encephalopathy, concern for sepsis secondary to R finger infection Objective Height (Feet): 5 Height (Inches): 10.00 Weight (Kilograms): 119.500 Vital Signs (Past 12Hrs) Vital Signs Past 12 Hours Date Time Temp Pulse Resp B/P (MAP) Pulse Ox O2 Delivery O2 Flow Rate FiO2 06/20/17 04:00 36.4 99 172/109 94 Room Air 06/20/17 03:14 36.7 89 18 147/92 94 Room Air 06/20/17 02:59 87 06/20/17 02:30 87 16 176/94 95 Room Air 06/20/17 01:22 36.5 82 16 154/100 96 Room Air 06/20/17 00:37 77 16 153/97 95 Room Air 06/19/17 23:27 96 Room Air 06/19/17 23:14 34.8 85 24 187/109 96 Room Air 06/19/17 23:09 82 Lab Results (24Hrs) Laboratory Tests (24 Hours) Test 06/20/17 00:11 White Blood Count 11.32 K/uL (4.8-10.8) H Red Blood Count 4.52 M/uL (4.7-6.1) L Hemoglobin 12.3 g/dL (14.0-18.0) L Hematocrit 36.3 % (42-52) L Mean Corpuscular Volume 80.3 fL (80-100) Mean Corpuscular Hemoglobin 27.2 pg (25-34) Mean Corpuscular Hemoglobin Concent 33.9 g/dl (32-36) Platelet Count 273 K/uL (130-400) Mean Platelet Volume 9.2 fL (7.4-10.4) Neutrophils (%) (Auto) 87.9 % Lymphocytes (%) (Auto) 6.8 % Monocytes (%) (Auto) 4.2 % Eosinophils (%) (Auto) 0.5 % Basophils (%) (Auto) 0.2 % Neutrophils # (Auto) 9.94 K/uL (1.4-6.5) H Lymphocytes # (Auto) 0.77 K/uL (1.2-3.4) L Monocytes # (Auto) 0.48 K/uL (0.11-0.59) Eosinophils # (Auto) 0.06 K/uL (0-0.5) Basophils # (Auto) 0.02 K/uL (0-0.2) Procalcitonin < 0.05 ng/ml (0-0.5) Micro Results Date/Time Source Procedure Growth Status 06/20/17 00:11 Blood Blood Culture Pending Received 06/19/17 23:49 Blood Blood Culture Pending Received Risk Factors for Resistance * Hospitalization for 48 hours or more within the past 90 days * History of infection with a multidrug-resistant organism: MRSA per hospitalist's H&P Assessment & Plan Assessment * 66 year old male admitted with mental status changes, lethargy, suspicion of sepsis secondary to infected R finger vs CVA * Procalcitonin < 0.05 making sepsis unlikely, WBC mildly elevated, no fever noted, hypertension present * CT head read as acute vs sub-acute infarct * Renal fxn appears to be near baseline. Estimation of CrCl and GFR difficult in someone with BMI > 35 and amputations. Best estimate of eCrCl ~80-90cc/min Plan Vancomycin IV * Loading dose: 2750 mg (~23 mg/kg) x 1 * Maintenance dose: 1750 mg IV (14.6 mg/kg) every 12 hours * Goal trough level for sepsis : 15 to 20 mcg/mL * Trough level ordered for 06/22/17 w/ maintenance dose * p'kinetic estimates: Vd 0.55-0.6L/kg; half-life ~8-9 hrs Piperacillin/tazobactam * 4.5 g bolus administered over 30 minutes, then 4.5 g IV extended infusion every 8 hours for CrCl greater than 20 mL/min OR every 12 hours for CrCl 20 mL/ min or less and dialysis. Pharmacy will continue to follow and will adjust dose/frequency as necessary. Thank you.
[2017-06-20 07:41] LABS: ESTIMATED AVERAGE GLUCOSE 217 mg/dl; HA1C FLAG Normal (Normal)
[2017-06-20] MEDS: FUROSEMIDE 80 MG TAB PO SCH ×2 (08:10→16:58)
[2017-06-20] MEDS: METOPROLOL SUCC 25MG EXT REL TAB PO SCH ×2 (08:10→21:32)
[2017-06-20] MEDS: SERTRALINE HCL 100 MG TAB PO SCH (08:10)
[2017-06-20] MEDS: ISOSORBIDE MONONITRATE 30 MG TABCR PO SCH (08:10)
[2017-06-20] MEDS: ALLOPURINOL 300 MG TAB PO SCH (08:10)
[2017-06-20] MEDS: INSULIN DETEMIR FLEXPEN/FLEX TOUCH 100 UNITS/ML 3ML SQ SCH ×2 (08:11→21:36)
[2017-06-20] MEDS: ATORVASTATIN 40 MG TAB PO SCH (08:11)
[2017-06-20] MEDS ORDERED: INSULIN DETEMIR FLEXPEN/FLEX TOUCH 100 UNITS/ML 3ML SQ SCH (09:00)
[2017-06-20] MEDS ORDERED: PERFLUTREN LIPID MICROSPHERE (DEFINITY) IV ONE (09:56)
[2017-06-20] MEDS: PIPERACILL/TAZOBAC IV 4.5 GM in DEXTROSE 5% 100ML IV SCH ×2 (10:36→18:26)
--- NOTE | 2017-06-20 14:25 | Neurology Consultation ---
Neurology Consultation Date of Consultation: Jun 20, 2017. Attending Physician: Agustin Gaxiola M.D. Primary Care Physician: No Doctor, Assigned Reason for Consultation: altered MS, CVA History of Present Illness Source: patient Rogelio is a 66 year old male with PMH - DM II, Hypoglycemia associated autonomic failure, ICD with EF: 20% S/P ICD placement, CAD S/P Stent in 2013, CKD III, Hypothyroidism, Depression, anxiety, chronic ambulatory dysfunction, diabetic vasculopathy s/p L BKA and multiple amputations of fingers. He presented with a sudden onset of lethargy which was noticed by his spouse today and she called 911 and was brought to the hospital. He remembers the ambulance coming to the house and then the next think he remembers is the ER. He was on aspirin 81 mg prior to this event. He is oriented X 3 and denies any fall, head trauma, LOC, one sided weakness, numbness tingling, incontinence biting of tongue, N, V He states he has chronic SOB on exertion and intermittent dizziness. +ambulatory dysfunction, digit amputation and BKA -L. Past Medical/Surgical History Medical Problems: (1) Acute renal injury Status: Acute (2) Altered mental status Status: Acute (3) C. difficile diarrhea Status: Acute (4) Cellulitis of right hand Status: Acute (5) Dehydration Status: Acute (6) Diabetes Status: Acute (7) Hemothorax on right Status: Acute (8) Hyperglycemia Status: Acute (9) Hypoglycemia Status: Acute (10) Hypoglycemia Status: Acute (11) Hypothermia Status: Acute (12) Infection of finger Status: Acute (13) Multiple rib fractures Status: Acute (14) Necrotic wound of right hand Status: Acute (15) Pleural effusion, right Status: Acute (16) Right-sided chest pain Status: Acute (17) Septic shock Status: Acute (18) Severe sepsis Status: Acute (19) Stroke Status: Acute Social History Alcohol Use: none Drug Use: none Marital Status: Housing Status: lives with family Occupation Status: disabled Allergies Coded Allergies: Gemfibrozil (Verified Allergy, Unknown, 06/19/17) Current Inpatient Medications Current Inpatient Medications Medications (Trade) Dose Ordered Sig/Ifeanyi Route Start Time Stop Time Status Last Admin Dose Admin Miscellaneous Information (Pharmacist Discharge Med Rec Consult) 1 ea UD PRN N/A 06/20/17 02:45 07/20/17 02:44 Heparin Sodium (Porcine) (Heparin Sq 5000 Unit/0.5ml) 5,000 unit Q8 SQ 06/20/17 06:00 07/20/17 05:59 06/20/17 13:40 5,000 UNIT Acetaminophen (Tylenol Tab) 650 mg Q4H PRN PO 06/20/17 02:45 07/20/17 02:44 Vancomycin HCl (Consult) 1 ea DAILY PRN N/A 06/20/17 03:27 07/20/17 03:26 Allopurinol (Zyloprim Tab) 300 mg DAILY PO 06/20/17 09:00 07/20/17 08:59 06/20/17 08:10 300 MG Aspirin (Ecotrin Tab) 81 mg DAILY PO 06/21/17 09:00 07/21/17 08:59 Atorvastatin Calcium (Lipitor Tab) 80 mg DAILY PO 06/20/17 09:00 07/20/17 08:59 06/20/17 08:11 80 MG Furosemide (Lasix Tab) 80 mg BID17 PO 06/20/17 09:00 07/20/17 08:59 06/20/17 08:10 80 MG Isosorbide Mononitrate (Imdur Ext Rel Tab) 15 mg QAM PO 06/20/17 09:00 07/20/17 08:59 06/20/17 08:10 15 MG Levothyroxine Sodium (Synthroid Tab) 50 mcg DAILYBB PO 06/20/17 06:00 07/20/17 05:59 06/20/17 06:41 50 MCG Metoprolol Succinate (Toprol Xl Tab) 25 mg BID PO 06/20/17 09:00 07/20/17 08:59 06/20/17 08:10 25 MG Sertraline HCl (Zoloft Tab) 100 mg DAILY PO 06/20/17 09:00 07/20/17 08:59 06/20/17 08:10 100 MG Insulin Aspart (novoLOG ASPART) SLIDING SCALE If C... ACHS SC 06/20/17 07:00 07/20/17 06:59 Glucose (Glucose 40% Gel) 15-30 GRAMS 15 GRAMS... UD PRN PO 06/20/17 03:00 07/20/17 02:59 Glucose (Glucose Chew Tab) 4-8 Tablets 4 Tabl... UD PRN PO 06/20/17 03:00 07/20/17 02:59 Dextrose (Dextrose 50% 50ML Syringe) 25-50ML OF 50% DW IV FOR... UD PRN IV 06/20/17 03:00 07/20/17 02:59 Glucagon (Glucagon Inj) 1 mg UD PRN SQ 06/20/17 03:00 07/20/17 02:59 Insulin Detemir (Levemir Flexpen/ FlexTouch) 20 units BID SQ 06/20/17 09:00 07/20/17 08:59 06/20/17 08:11 20 UNITS Albuterol Sulfate (Ventolin 0.083% 2.5MG/3ML Neb) 2.5 mg Q6R PRN INH 06/20/17 03:15 07/20/17 03:14 Piperacillin Sod/ Tazobactam Sod (Consult) 1 ea UD PRN N/A 06/20/17 03:30 07/20/17 03:29 Promethazine HCl 12.5 mg/Sodium Chloride 50.5 ml @ 204 mls/hr Q6H PRN IV 06/20/17 04:45 07/20/17 04:44 Piperacillin Sod/ Tazobactam Sod 4.5 gm/Dextrose 120 ml @ 30 mls/hr Q8H IV 06/20/17 10:00 06/30/17 09:59 06/20/17 10:36 30 MLS/HR Vancomycin HCl 1750 mg/Sodium Chloride 535 ml @ 200 mls/hr Q12H IV 06/20/17 18:00 06/30/17 17:59 Physical Exam Vital Signs (Past 24 Hrs): Date Time Temp Pulse Resp B/P (MAP) Pulse Ox O2 Delivery O2 Flow Rate FiO2 06/20/17 12:00 94 Room Air 2.0 Nasal Cannula 06/20/17 11:31 36.7 86 14 130/66 (87) 96 Room Air 06/20/17 10:31 Room Air 06/20/17 08:35 36.5 96 16 134/84 (101) 94 06/20/17 08:00 94 Room Air 2.0 Nasal Cannula 06/20/17 04:00 36.4 99 172/109 94 Room Air 06/20/17 03:14 36.7 89 18 147/92 94 Room Air 06/20/17 02:59 87 06/20/17 02:30 87 16 176/94 95 Room Air 06/20/17 01:22 36.5 82 16 154/100 96 Room Air 06/20/17 00:37 77 16 153/97 95 Room Air 06/19/17 23:27 96 Room Air 06/19/17 23:14 34.8 85 24 187/109 96 Room Air 06/19/17 23:09 82 Physical Exam: Constitutional: appearance nourished, obese Ears, Nose, Mouth and Throat: mucous membranes moist, no injection and skin normal, eyes normal Cardiovascular: normal S-1 and S-2 and regular rate and rhythm Respiratory: course breath sound Musculoskeletal: no peripheral edema, ampuate bilaterally UE digits, wrapped on right, LLE BKA Skin: no stigmata of neurocutaneous disease noted and normal and intact Eyes: extraocular muscles intact (EOMI) and pupils equal, round and reactive to light (PERRL) NEUROLOGIC EXAMINATION: Mental status: Alert and interactive Oriented to [facility], [facility] ([facility]). identifies Kleenex, water glass, straw Oriented to person Speech fluent with no evidence of aphasia, says no ifs ands or buts Cranial Nerves smile eye brow raise symmetric, tongue midline Reflexes: Deep tendon reflexes were symmetrical Sensory: to light or cool touch Coordination: finger to nose no bi pass, no tremor Gait/Stance: Posture lying in bed Motor: Negative for pronator drift of out stretched arms with eyes closed. Strength: biceps triceps bilaterally 5/5, hip flex bilaterally, right plantar flex ext bilaterally 5/5 Laboratory Results Past 24 Hours: 06/20/17 00:11 Red Blood Count 4.52, Mean Corpuscular Volume 80.3, Mean Corpuscular Hemoglobin 27.2, Mean Corpuscular Hemoglobin Concent 33.9, Mean Platelet Volume 9.2, Neutrophils (%) (Auto) 87.9, Lymphocytes (%) (Auto) 6.8, Monocytes (%) (Auto) 4.2, Eosinophils (%) (Auto) 0.5, Basophils (%) (Auto) 0.2, Neutrophils # (Auto) 9.94, Lymphocytes # (Auto) 0.77, Monocytes # (Auto) 0.48, Eosinophils # (Auto) 0.06, Basophils # (Auto) 0.02 06/20/17 00:11 Test 06/19/17 23:49 06/20/17 00:11 06/20/17 00:15 06/20/17 01:15 Ethyl Alcohol mg/dL < 3.0 mg/dl (0-3) White Blood Count 11.32 K/uL (4.8-10.8) Red Blood Count 4.52 M/uL (4.7-6.1) Hemoglobin 12.3 g/dL (14.0-18.0) Hematocrit 36.3 % (42-52) Mean Corpuscular Volume 80.3 fL (80-100) Mean Corpuscular Hemoglobin 27.2 pg (25-34) Mean Corpuscular Hemoglobin Concent 33.9 g/dl (32-36) Platelet Count 273 K/uL (130-400) Mean Platelet Volume 9.2 fL (7.4-10.4) Neutrophils (%) (Auto) 87.9 % Lymphocytes (%) (Auto) 6.8 % Monocytes (%) (Auto) 4.2 % Eosinophils (%) (Auto) 0.5 % Basophils (%) (Auto) 0.2 % Neutrophils # (Auto) 9.94 K/uL (1.4-6.5) Lymphocytes # (Auto) 0.77 K/uL (1.2-3.4) Monocytes # (Auto) 0.48 K/uL (0.11-0.59) Eosinophils # (Auto) 0.06 K/uL (0-0.5) Basophils # (Auto) 0.02 K/uL (0-0.2) RDW Standard Deviation 47.7 fL (36.4-46.3) RDW Coefficient of Variation 16.6 % (11.5-14.5) Immature Granulocyte % (Auto) 0.4 % Immature Granulocyte # (Auto) 0.05 K/uL (0.00-0.02) Prothrombin Time 10.7 SECONDS (9.0-12.0) Prothromb Time International Ratio 1.0 (0.9-1.1) Activated Partial Thromboplast Time 29.5 SECONDS (21.0-31.0) Partial Thromboplastin Ratio 1.1 Anion Gap 7.0 mmol/L (3-11) Estimated GFR () 90.5 Estimated GFR (Non- 78.1 BUN/Creatinine Ratio 23.7 (10-20) Calcium Level 8.9 mg/dl (8.5-10.1) Total Bilirubin 0.5 mg/dl (0.2-1) Direct Bilirubin < 0.1 mg/dl (0-0.2) Aspartate Amino Transf (AST/SGOT) 11 U/L (15-37) Alanine Aminotransferase (ALT/SGPT) 16 U/L (12-78) Alkaline Phosphatase 116 U/L (45-117) Troponin I 0.022 ng/ml (0-0.045) Total Protein 7.5 gm/dl (6.4-8.2) Albumin 3.1 gm/dl (3.4-5.0) Procalcitonin < 0.05 ng/ml (0-0.5) Bedside Lactic Acid Venous 1.39 mmol/L (0.90-1.70) Urine Color YELLOW Urine Appearance CLEAR (CLEAR) Urine pH 5.0 (4.5-7.5) Urine Specific [place] 1.018 (1.000-1.030) Urine Protein 3+ (NEG) Urine Glucose (UA) NEG (NEG) Urine Ketones NEG (NEG) Urine Occult Blood 1+ (NEG) Urine Nitrite NEG (NEG) Urine Bilirubin NEG (NEG) Urine Urobilinogen NEG (NEG) Urine Leukocyte Esterase NEG (NEG) Urine WBC (Auto) 0 /hpf (0-5) Urine RBC (Auto) 5-10 /hpf (0-4) Urine Hyaline Casts (Auto) 1-5 /lpf (0-5) Urine Epithelial Cells (Auto) 5-10 /lpf (0-5) Urine Bacteria (Auto) NEG (NEG) Urine Opiates Screen NEG (NEG) Urine Methadone, Qualitative NEG (NEG) Urine Barbiturates NEG (NEG) Urine Phencyclidine (PCP) Level NEG (NEG) Ur Amphetamine/Methamphetamine NEG (NEG) MDMA (Ecstasy) Screen NEG (NEG) Urine Benzodiazepines Screen NEG (NEG) Urine Cocaine Metabolite NEG (NEG) Urine Marijuana (THC) NEG (NEG) Test 06/20/17 05:20 06/20/17 11:12 Estimated Average Glucose 217 mg/dl Hemoglobin A1c 9.2 % (4.5-5.6) Thyroid Stimulating Hormone (TSH) 2.670 uIu/ml (0.300-4.500) Bedside Glucose 110 mg/dl (70-99) Imaging CT head- .7 cm hypodensity within the right caudate head and anterior limb of the internal capsule which is new since head CT of January 19, 2017 and consistent with an acute to subacute infarct. No mass effect or hemorrhage. Impression 66 year old with change MS and slurred speech - inter capsule stroke Plan 1. repeat CT head pending 2. TTE done pending read 3. EEG competed pending read 4. permissive hypertension then optimize HTN, DM, DL 5. treatment of right hand infection currently on vancomycin, Zosyn - ID consult for direction of therapy 6. aspirin 81 mg continue add plavix 75 mg daily 7. carotid doppler ordered 8. PT/OT/ speech for discharge needs 9. further recommendations to follow I have seen and discussed above patient with Dr Kip Zarco, neurology Patient seen and interviewed unfortunately family not present for history and patient is amnestic for yesterdays events exam pretty normal save for subtle left umn facial and subtle dysarthria which he claims is normal and imaging now show a "newish " cva in deep right hemisphere eeg normal duplex shows moderate stenosis on the incorrect vessel and he is currently essentially asymptomatic At this point we will diagnose a subacute infarct possible cardioembolic in light of the low ef and will defer to cardiology for recommendations beyond the standard asa and plavix combination at this point Kip Zarco MD
--- NOTE | 2017-06-20 14:45 | Wound Consultation: Inpatient ---
Wound Consultation Date of Consultation: Jun 20, 2017. Attending Physician: Agustin Gaxiola M.D. Reason for Consultation: Ulceration third finger right hand History of Present Illness Patient was recently admitted to [facility] for further evaluation following a stroke. Patient has an ulceration on the third finger of his right hand which he states she's had for the past few weeks. Patient states this started because he chews the finger. Patient denies any fever chills or night sweats. Patient denies any pain or significant drainage from the site. Patient has prior history of amputation of digits on his hands. Patient currently denies any chest pain shortness of breath abdominal discomfort nausea or vomiting. Patient denies any other systemic complaints at this time. Family History Diabetes mellitus MOTHER FH: CAD (coronary artery disease) FATHER Social History Smoking Status: Never Smoker Alcohol Use: none Drug Use: none Marital Status: Housing Status: lives with family Occupation Status: disabled Allergies Coded Allergies: Gemfibrozil (Verified Allergy, Unknown, 06/19/17) Home Medications Scheduled Allopurinol (Zyloprim), 300 MG PO DAILY Aspirin (Aspirin Ec), 81 MG PO DAILY Atorvastatin (Lipitor), 80 MG PO DAILY Furosemide (Lasix), 80 MG PO BID Glyburide (Micronase), 5 MG PO DAILYBB Insulin Detemir (Levemir), 25 UNITS SQ BID Insulin Human Regular (Novolin R), 3 UNITS SQ [employer] Isosorbide Mononitrate Ext Rel (Imdur Ext Rel), 15 MG PO QAM Levothyroxine Sodium (Synthroid), 50 MCG PO DAILY Losartan Potassium (Cozaar), 25 MG PO DAILY Metolazone (Zaroxolyn), 2.5 MG PO WK Metoprolol Succinate (Toprol Xl), 25 MG PO BID Sertraline HCl (Sertraline HCl), 100 MG PO DAILY Scheduled PRN Albuterol Sulfate (Proair Respiclick), 2 PUFFS INH Q4 PRN for SOB/Wheezing Meclizine HCl (Meclizine 25), 25 MG PO TID PRN for dizziness Inpatient Medications Current Inpatient Medications Medications (Trade) Dose Ordered Sig/Ifeanyi Route Start Time Stop Time Status Last Admin Dose Admin Miscellaneous Information (Pharmacist Discharge Med Rec Consult) 1 ea UD PRN N/A 06/20/17 02:45 07/20/17 02:44 Heparin Sodium (Porcine) (Heparin Sq 5000 Unit/0.5ml) 5,000 unit Q8 SQ 06/20/17 06:00 07/20/17 05:59 06/20/17 13:40 5,000 UNIT Acetaminophen (Tylenol Tab) 650 mg Q4H PRN PO 06/20/17 02:45 07/20/17 02:44 Vancomycin HCl (Consult) 1 ea DAILY PRN N/A 06/20/17 03:27 07/20/17 03:26 Allopurinol (Zyloprim Tab) 300 mg DAILY PO 06/20/17 09:00 07/20/17 08:59 06/20/17 08:10 300 MG Aspirin (Ecotrin Tab) 81 mg DAILY PO 06/21/17 09:00 07/21/17 08:59 Atorvastatin Calcium (Lipitor Tab) 80 mg DAILY PO 06/20/17 09:00 07/20/17 08:59 06/20/17 08:11 80 MG Furosemide (Lasix Tab) 80 mg BID17 PO 06/20/17 09:00 07/20/17 08:59 06/20/17 08:10 80 MG Isosorbide Mononitrate (Imdur Ext Rel Tab) 15 mg QAM PO 06/20/17 09:00 07/20/17 08:59 06/20/17 08:10 15 MG Levothyroxine Sodium (Synthroid Tab) 50 mcg DAILYBB PO 06/20/17 06:00 07/20/17 05:59 06/20/17 06:41 50 MCG Metoprolol Succinate (Toprol Xl Tab) 25 mg BID PO 06/20/17 09:00 07/20/17 08:59 06/20/17 08:10 25 MG Sertraline HCl (Zoloft Tab) 100 mg DAILY PO 06/20/17 09:00 07/20/17 08:59 06/20/17 08:10 100 MG Insulin Aspart (novoLOG ASPART) SLIDING SCALE If C... ACHS SC 06/20/17 07:00 07/20/17 06:59 Glucose (Glucose 40% Gel) 15-30 GRAMS 15 GRAMS... UD PRN PO 06/20/17 03:00 07/20/17 02:59 Glucose (Glucose Chew Tab) 4-8 Tablets 4 Tabl... UD PRN PO 06/20/17 03:00 07/20/17 02:59 Dextrose (Dextrose 50% 50ML Syringe) 25-50ML OF 50% DW IV FOR... UD PRN IV 06/20/17 03:00 07/20/17 02:59 Glucagon (Glucagon Inj) 1 mg UD PRN SQ 06/20/17 03:00 07/20/17 02:59 Insulin Detemir (Levemir Flexpen/ FlexTouch) 20 units BID SQ 06/20/17 09:00 07/20/17 08:59 06/20/17 08:11 20 UNITS Albuterol Sulfate (Ventolin 0.083% 2.5MG/3ML Neb) 2.5 mg Q6R PRN INH 06/20/17 03:15 07/20/17 03:14 Piperacillin Sod/ Tazobactam Sod (Consult) 1 ea UD PRN N/A 06/20/17 03:30 07/20/17 03:29 Promethazine HCl 12.5 mg/Sodium Chloride 50.5 ml @ 204 mls/hr Q6H PRN IV 06/20/17 04:45 07/20/17 04:44 Piperacillin Sod/ Tazobactam Sod 4.5 gm/Dextrose 120 ml @ 30 mls/hr Q8H IV 06/20/17 10:00 06/30/17 09:59 06/20/17 10:36 30 MLS/HR Vancomycin HCl 1750 mg/Sodium Chloride 535 ml @ 200 mls/hr Q12H IV 06/20/17 18:00 06/30/17 17:59 Clopidogrel Bisulfate (plAVix TAB) 75 mg 1500 ONCE PO 06/20/17 15:00 06/20/17 15:01 Clopidogrel Bisulfate (plAVix TAB) 75 mg QAM PO 06/21/17 09:00 07/21/17 08:59 Physical Exam Date Time Temp Pulse Resp B/P (MAP) Pulse Ox O2 Delivery O2 Flow Rate FiO2 06/20/17 12:00 94 Room Air 2.0 Nasal Cannula 06/20/17 11:31 36.7 86 14 130/66 (87) 96 Room Air 06/20/17 10:31 Room Air 06/20/17 08:35 36.5 96 16 134/84 (101) 94 06/20/17 08:00 94 Room Air 2.0 Nasal Cannula 06/20/17 04:00 36.4 99 172/109 94 Room Air 06/20/17 03:14 36.7 89 18 147/92 94 Room Air 06/20/17 02:59 87 06/20/17 02:30 87 16 176/94 95 Room Air 06/20/17 01:22 36.5 82 16 154/100 96 Room Air 06/20/17 00:37 77 16 153/97 95 Room Air 06/19/17 23:27 96 Room Air 06/19/17 23:14 34.8 85 24 187/109 96 Room Air 06/19/17 23:09 82 General: The patient is sitting in a hospital bed in no distress. Alert, cooperative and appropriate to all questions. HEENT: Pupils equal and reactive to light. Sclera clear, EOM intact. Neck: Supple, No JVD noted Chest: CTA in all patrick. No deformity Heart: RRR without murmurs, S3, S4, thrills, rubs or heaves Extremities: There is an ulceration with eschar formation noted on the distal third digit of the left hand. The site measures 2 x 3 x 0 cm. Patient has had prior amputation secondary continued on this hand. There is no active drainage or odor noted from the site. There is no significant periwound erythema noted. Range of motion appears intact proximally. Neurological: Alert and oriented x3. No focal deficits. Skin: No rashes, papules, vesicles, excoriations Laboratory Results Last 24 Hours Test 06/19/17 23:49 06/20/17 00:09 06/20/17 00:11 06/20/17 00:15 Ethyl Alcohol mg/dL < 3.0 mg/dl Bedside Glucose 84 mg/dl White Blood Count 11.32 K/uL Red Blood Count 4.52 M/uL Hemoglobin 12.3 g/dL Hematocrit 36.3 % Mean Corpuscular Volume 80.3 fL Mean Corpuscular Hemoglobin 27.2 pg Mean Corpuscular Hemoglobin Concent 33.9 g/dl Platelet Count 273 K/uL Mean Platelet Volume 9.2 fL Neutrophils (%) (Auto) 87.9 % Lymphocytes (%) (Auto) 6.8 % Monocytes (%) (Auto) 4.2 % Eosinophils (%) (Auto) 0.5 % Basophils (%) (Auto) 0.2 % Neutrophils # (Auto) 9.94 K/uL Lymphocytes # (Auto) 0.77 K/uL Monocytes # (Auto) 0.48 K/uL Eosinophils # (Auto) 0.06 K/uL Basophils # (Auto) 0.02 K/uL RDW Standard Deviation 47.7 fL RDW Coefficient of Variation 16.6 % Immature Granulocyte % (Auto) 0.4 % Immature Granulocyte # (Auto) 0.05 K/uL Prothrombin Time 10.7 SECONDS Prothromb Time International Ratio 1.0 Activated Partial Thromboplast Time 29.5 SECONDS Partial Thromboplastin Ratio 1.1 Sodium Level 142 mmol/L Potassium Level 3.7 mmol/L Chloride Level 107 mmol/L Carbon Dioxide Level 28 mmol/L Anion Gap 7.0 mmol/L Blood Urea Nitrogen 24 mg/dl Creatinine 1.00 mg/dl Estimated GFR () 90.5 Estimated GFR (Non- 78.1 BUN/Creatinine Ratio 23.7 Random Glucose 85 mg/dl Calcium Level 8.9 mg/dl Total Bilirubin 0.5 mg/dl Direct Bilirubin < 0.1 mg/dl Aspartate Amino Transf (AST/SGOT) 11 U/L Alanine Aminotransferase (ALT/SGPT) 16 U/L Alkaline Phosphatase 116 U/L Troponin I 0.022 ng/ml Total Protein 7.5 gm/dl Albumin 3.1 gm/dl Procalcitonin < 0.05 ng/ml Bedside Lactic Acid Venous 1.39 mmol/L Test 06/20/17 01:15 06/20/17 05:20 06/20/17 07:21 06/20/17 11:12 Urine Color YELLOW Urine Appearance CLEAR Urine pH 5.0 Urine Specific [place] 1.018 Urine Protein 3+ Urine Glucose (UA) NEG Urine Ketones NEG Urine Occult Blood 1+ Urine Nitrite NEG Urine Bilirubin NEG Urine Urobilinogen NEG Urine Leukocyte Esterase NEG Urine WBC (Auto) 0 /hpf Urine RBC (Auto) 5-10 /hpf Urine Hyaline Casts (Auto) 1-5 /lpf Urine Epithelial Cells (Auto) 5-10 /lpf Urine Bacteria (Auto) NEG Urine Opiates Screen NEG Urine Methadone, Qualitative NEG Urine Barbiturates NEG Urine Phencyclidine (PCP) Level NEG Ur Amphetamine/Methamphetamine NEG MDMA (Ecstasy) Screen NEG Urine Benzodiazepines Screen NEG Urine Cocaine Metabolite NEG Urine Marijuana (THC) NEG Estimated Average Glucose 217 mg/dl Hemoglobin A1c 9.2 % Thyroid Stimulating Hormone (TSH) 2.670 uIu/ml Bedside Glucose 120 mg/dl 110 mg/dl Assessment & Plan Assessment: The ulcer site on the distal phalanx of the third finger right hand did require debridement. With the patient's permission the eschar was removed with scissors and forceps. Bone of phalanx was completely exposed. This was removed the base with a rongeur. Surrounding slough and eschar was removed with a combination of scissors forceps and a #5 curette. The bone specimen was sent for culture along with a culture of the wound site. Bleeding was controlled with a combination of direct pressure and silver nitrate. The wound area will be dressed with Aquacel Ag and gauze change daily basis patient will continue to be monitored during his hospitalization and can be followed up in the outpatient clinic upon discharge. Further debridement will probably be indicated. This represented an excisional debridement including bone of less than 20 cm.
--- NOTE | 2017-06-20 14:59 | Progress Note ---
Medicine Progress Note Date & Time of Visit: Jun 20, 2017 at 12:24. Subjective Pt was seen and examined Lying in bed with no distress Pt said that he feels ok He said that he is memory his back to normal Denies any chest pain, palpitation, dizziness and sob Objective Last 8 Hrs Date Time Temp Pulse Resp B/P (MAP) Pulse Ox O2 Delivery O2 Flow Rate FiO2 06/20/17 12:00 94 Room Air 2.0 Nasal Cannula 06/20/17 11:31 36.7 86 14 130/66 (87) 96 Room Air 06/20/17 10:31 Room Air 06/20/17 08:35 36.5 96 16 134/84 (101) 94 06/20/17 08:00 94 Room Air 2.0 Nasal Cannula Physical Exam: General- No acute distress Head- atraumatic Eyes- PERRL, EOMI ENT- oropharynx clear Neck- supple, no JVD Lungs- clear to auscultation Heart- regular rhythm; no murmur Abdomen- normal bowel sounds, soft Extremities- no calf tenderness in RLE; L BKA, RIGHT 3RD FINGER wrapped with dressing Neuro- alert, oriented x 3; PERRL, EOMI; no facial palsy Skin- warm & dry Laboratory Results: Last 24 Hours Test 06/19/17 23:49 06/20/17 00:09 06/20/17 00:11 06/20/17 00:15 Ethyl Alcohol mg/dL < 3.0 mg/dl Bedside Glucose 84 mg/dl White Blood Count 11.32 K/uL Red Blood Count 4.52 M/uL Hemoglobin 12.3 g/dL Hematocrit 36.3 % Mean Corpuscular Volume 80.3 fL Mean Corpuscular Hemoglobin 27.2 pg Mean Corpuscular Hemoglobin Concent 33.9 g/dl Platelet Count 273 K/uL Mean Platelet Volume 9.2 fL Neutrophils (%) (Auto) 87.9 % Lymphocytes (%) (Auto) 6.8 % Monocytes (%) (Auto) 4.2 % Eosinophils (%) (Auto) 0.5 % Basophils (%) (Auto) 0.2 % Neutrophils # (Auto) 9.94 K/uL Lymphocytes # (Auto) 0.77 K/uL Monocytes # (Auto) 0.48 K/uL Eosinophils # (Auto) 0.06 K/uL Basophils # (Auto) 0.02 K/uL RDW Standard Deviation 47.7 fL RDW Coefficient of Variation 16.6 % Immature Granulocyte % (Auto) 0.4 % Immature Granulocyte # (Auto) 0.05 K/uL Prothrombin Time 10.7 SECONDS Prothromb Time International Ratio 1.0 Activated Partial Thromboplast Time 29.5 SECONDS Partial Thromboplastin Ratio 1.1 Sodium Level 142 mmol/L Potassium Level 3.7 mmol/L Chloride Level 107 mmol/L Carbon Dioxide Level 28 mmol/L Anion Gap 7.0 mmol/L Blood Urea Nitrogen 24 mg/dl Creatinine 1.00 mg/dl Estimated GFR () 90.5 Estimated GFR (Non- 78.1 BUN/Creatinine Ratio 23.7 Random Glucose 85 mg/dl Calcium Level 8.9 mg/dl Total Bilirubin 0.5 mg/dl Direct Bilirubin < 0.1 mg/dl Aspartate Amino Transf (AST/SGOT) 11 U/L Alanine Aminotransferase (ALT/SGPT) 16 U/L Alkaline Phosphatase 116 U/L Troponin I 0.022 ng/ml Total Protein 7.5 gm/dl Albumin 3.1 gm/dl Procalcitonin < 0.05 ng/ml Bedside Lactic Acid Venous 1.39 mmol/L Test 06/20/17 01:15 06/20/17 05:20 06/20/17 07:21 06/20/17 11:12 Urine Color YELLOW Urine Appearance CLEAR Urine pH 5.0 Urine Specific [place] 1.018 Urine Protein 3+ Urine Glucose (UA) NEG Urine Ketones NEG Urine Occult Blood 1+ Urine Nitrite NEG Urine Bilirubin NEG Urine Urobilinogen NEG Urine Leukocyte Esterase NEG Urine WBC (Auto) 0 /hpf Urine RBC (Auto) 5-10 /hpf Urine Hyaline Casts (Auto) 1-5 /lpf Urine Epithelial Cells (Auto) 5-10 /lpf Urine Bacteria (Auto) NEG Urine Opiates Screen NEG Urine Methadone, Qualitative NEG Urine Barbiturates NEG Urine Phencyclidine (PCP) Level NEG Ur Amphetamine/Methamphetamine NEG MDMA (Ecstasy) Screen NEG Urine Benzodiazepines Screen NEG Urine Cocaine Metabolite NEG Urine Marijuana (THC) NEG Estimated Average Glucose 217 mg/dl Hemoglobin A1c 9.2 % Thyroid Stimulating Hormone (TSH) 2.670 uIu/ml Bedside Glucose 120 mg/dl 110 mg/dl Date/Time Source Procedure Growth Status 06/20/17 00:11 Blood Blood Culture Pending Received 06/19/17 23:49 Blood Blood Culture Pending Received 06/20/17 11:30 Bone Finger , Right 3rd Gram Stain Pending Received 06/20/17 11:30 Bone Finger , Right 3rd Wound Culture Pending Received 06/20/17 11:30 Drainage-Deep Finger , Right 3rd Gram Stain Pending Received 06/20/17 11:30 Drainage-Deep Finger , Right 3rd Wound Culture Pending Received 06/20/17 08:00 Ulcer Hand Right Gram Stain Pending Received 06/20/17 08:00 Ulcer Hand Right Wound Culture Pending Received Assessment & Plan Altered mental status Encephalopathy:could be multifactorial CT head showed 1.7 cm hypodensity within the right caudate head and anterior limb of the internal capsule consistent with an acute to subacute infarct. Was not a candidate for tPA- currently no focal deficits No focal neuro deficits on exam No arrhythmia on telemonitor Unable to get MRI Brain, MRA Head/Neck due to ICD Will repeat CT head after 24 hrs Will get carotid u/s Continue aspirin, Lipitor and Plavix Continue Neuro checks, Neurology consulted Continue PT/OT Continue monitor in telemetry Right 3rd Finger necrotic Infected ( drainage) No leukocytosis Normal lactate and procalcitonin S/P debridement by Wound team Dr. Nicolas Continue IV Vanco and Zosyn Blood and Wound cultures pending will do daily wound care continue monitor cbc DM II: Diabetic Neuropathy/Vasculopathy Will hold oral diabetic meds Last A1c: 9.2 on 06/20/17 ISS, basal Insulin Continue monitor BS H/O Syncope 2/2 Hypoglycemia associated autonomic failure Fall precautions PT/OT Stable Ischemic cardiomyopathy Last EF: 20% S/P ICD placement No signs of fluid overload stable CAD S/P Stent in 2013: Continue ASA, statins, BB CKD III: Cr stable Monitor renal function Hypothyroidism: continue levothyroxine TSH wnl Stable Depression/anxiety: continue Zoloft DVT Px: Heparin SQ Code Status Full Code Consultants: Neuro Current Inpatient Medications: Current Inpatient Medications Medications (Trade) Dose Ordered Sig/Ifeanyi Route Start Time Stop Time Status Last Admin Dose Admin Miscellaneous Information (Pharmacist Discharge Med Rec Consult) 1 ea UD PRN N/A 06/20/17 02:45 07/20/17 02:44 Heparin Sodium (Porcine) (Heparin Sq 5000 Unit/0.5ml) 5,000 unit Q8 SQ 06/20/17 06:00 07/20/17 05:59 06/20/17 13:40 5,000 UNIT Acetaminophen (Tylenol Tab) 650 mg Q4H PRN PO 06/20/17 02:45 07/20/17 02:44 Vancomycin HCl (Consult) 1 ea DAILY PRN N/A 06/20/17 03:27 07/20/17 03:26 Allopurinol (Zyloprim Tab) 300 mg DAILY PO 06/20/17 09:00 07/20/17 08:59 06/20/17 08:10 300 MG Aspirin (Ecotrin Tab) 81 mg DAILY PO 06/21/17 09:00 07/21/17 08:59 Atorvastatin Calcium (Lipitor Tab) 80 mg DAILY PO 06/20/17 09:00 07/20/17 08:59 06/20/17 08:11 80 MG Furosemide (Lasix Tab) 80 mg BID17 PO 06/20/17 09:00 07/20/17 08:59 06/20/17 08:10 80 MG Isosorbide Mononitrate (Imdur Ext Rel Tab) 15 mg QAM PO 06/20/17 09:00 07/20/17 08:59 06/20/17 08:10 15 MG Levothyroxine Sodium (Synthroid Tab) 50 mcg DAILYBB PO 06/20/17 06:00 07/20/17 05:59 06/20/17 06:41 50 MCG Metoprolol Succinate (Toprol Xl Tab) 25 mg BID PO 06/20/17 09:00 07/20/17 08:59 06/20/17 08:10 25 MG Sertraline HCl (Zoloft Tab) 100 mg DAILY PO 06/20/17 09:00 07/20/17 08:59 06/20/17 08:10 100 MG Insulin Aspart (novoLOG ASPART) SLIDING SCALE If C... ACHS SC 06/20/17 07:00 07/20/17 06:59 Glucose (Glucose 40% Gel) 15-30 GRAMS 15 GRAMS... UD PRN PO 06/20/17 03:00 07/20/17 02:59 Glucose (Glucose Chew Tab) 4-8 Tablets 4 Tabl... UD PRN PO 06/20/17 03:00 07/20/17 02:59 Dextrose (Dextrose 50% 50ML Syringe) 25-50ML OF 50% DW IV FOR... UD PRN IV 06/20/17 03:00 07/20/17 02:59 Glucagon (Glucagon Inj) 1 mg UD PRN SQ 06/20/17 03:00 07/20/17 02:59 Insulin Detemir (Levemir Flexpen/ FlexTouch) 20 units BID SQ 06/20/17 09:00 07/20/17 08:59 06/20/17 08:11 20 UNITS Albuterol Sulfate (Ventolin 0.083% 2.5MG/3ML Neb) 2.5 mg Q6R PRN INH 06/20/17 03:15 07/20/17 03:14 Piperacillin Sod/ Tazobactam Sod (Consult) 1 ea UD PRN N/A 06/20/17 03:30 07/20/17 03:29 Promethazine HCl 12.5 mg/Sodium Chloride 50.5 ml @ 204 mls/hr Q6H PRN IV 06/20/17 04:45 07/20/17 04:44 Piperacillin Sod/ Tazobactam Sod 4.5 gm/Dextrose 120 ml @ 30 mls/hr Q8H IV 06/20/17 10:00 06/30/17 09:59 06/20/17 10:36 30 MLS/HR Vancomycin HCl 1750 mg/Sodium Chloride 535 ml @ 200 mls/hr Q12H IV 06/20/17 18:00 06/30/17 17:59 Clopidogrel Bisulfate (plAVix TAB) 75 mg NOW ONCE PO 06/20/17 14:30 06/20/17 14:31 UNV Clopidogrel Bisulfate (plAVix TAB) 75 mg QAM PO 06/21/17 09:00 07/21/17 08:59 UNV
[2017-06-20] MEDS ORDERED: CLOPIDOGREL BISULFATE 75 MG TAB PO ONE (15:00)
--- NOTE | 2017-06-20 15:51 | DIAGNOSTIC IMAGING REPORT ---
CT HEAD WITHOUT CONTRAST (CT) CLINICAL HISTORY: CVA COMPARISON STUDY: 06/20/2017 TECHNIQUE: Axial CT of the brain is performed from the vertex to the skull base. IV contrast was not administered for this examination. A dose lowering technique was utilized adhering to the principles of ALARA. CT DOSE: 614.27 mGy.cm FINDINGS: No intra or extra-axial mass lesions are visualized. A subacute infarct is again visualized within the right basal ganglia and anterior limb of the right internal capsule. There is also an old lacunar infarct in the right basal ganglia. There is no acute hemorrhage. There is no midline shift. There are patchy white matter hypodensities likely on a small vessel basis. There is no evidence of pathologic ventricular dilatation. There is mild mucosal thickening within the ethmoid sinuses. IMPRESSION: Stable acute/subacute infarct involving the right basal ganglia and anterior limb of the right internal capsule. No acute hemorrhage. Electronically signed by: Nasir Butts M.D. 06/20/2017 3:49 PM Dictated Date/Time: 06/20/2017 3:47 PM
--- NOTE | 2017-06-20 15:53 | DIAGNOSTIC IMAGING REPORT ---
ULTRASOUND OF THE CAROTID ARTERIES CLINICAL HISTORY: acute/subacute infarct on CT COMPARISON STUDY: None. TECHNIQUE: Real-time, grayscale, and color Doppler sonography of the carotid arteries was performed. Imaging reviewed in the transverse and longitudinal planes. NASCET criteria was utilized for stenosis calcification. FINDINGS: There is moderate atherosclerotic plaque present bilaterally. The peak systolic velocity within the right internal carotid artery is 73 cm/sec. The systolic velocity ratio of right internal to common carotid artery is 1.1. The peak systolic velocity within the left internal carotid artery is 152 cm/sec. The systolic velocity ratio left internal to common carotid artery is 2.1. Antegrade flow is seen in the vertebral arteries. The external carotid arteries are patent. IMPRESSION: 50-69% stenosis of the left internal carotid artery. Electronically signed by: Nasir Butts M.D. 06/20/2017 3:52 PM Dictated Date/Time: 06/20/2017 3:50 PM
--- NOTE | 2017-06-20 15:55 | ECHOCARDIOGRAM REPORT ---
*NOTICE TO RECEIVING LIBERTARIAN AGENCY This information is strictly Confidential and protected under [place] law. [place] law prohibits you from making any further disclosure of this information unless further disclosure is expressly permitted by the written consent of the person to whom it pertains or is authorized by law. A general authorization for the release of medical or other information is not sufficient for this purpose. Hospital accepts no responsibility if the information is made available to any other person, INCLUDING THE PATIENT. Interpretation Summary * Name: LUZ CRUZ Study Date: 06/20/2017 09:26 AM BP: 134/84 mmHg * Patient Location: C.2E\S\E202\S\1 HR: 96 * : 1950 (M/d/yyyy) Gender: Male Height: 70 in * Age: 66 yrs Ethnicity: CA Weight: 269 lb * Ordering Physician: Alexandr Lane * Referring Physician: Self, Referred * Performed By: Ignacia Reid RCS * * Reason For Study: Alt. of Consciousness * BSA: 2.4 m2 * The study was technically limited. * -- Conclusions -- * The left ventricle is severely dilated. * There is mild concentric left ventricular hypertrophy. * Left ventricular systolic function is severely reduced. * Ejection Fraction = 15-20%. * The right ventricular systolic function is normal. * The study was technically limited. Procedure Details * A complete two-dimensional transthoracic echocardiogram was performed (2D, M-mode, Doppler and color flow Doppler). * The study was technically difficult. * A contrast injection of Definity was performed to improve assessment of LV function. * Contrast was injected into an intravenous site in the left arm. * One vial of Definity ultrasound contrast was diluted in normal saline to a total volume of 10 ml. A total of '1' ml of solution was administered during imaging. * Lot # [id number] of Definity utilized for procedure. * Expiration date . * The attending nurse who injected the contrast agent was Deangelo Manrique RN. Left Ventricle * The left ventricle is severely dilated. * There is mild concentric left ventricular hypertrophy. * Ejection Fraction = 15-20%. * Left ventricular systolic function is severely reduced. Right Ventricle * The right ventricle is not well visualized. * The right ventricle is grossly normal size. * The right ventricular systolic function is normal. Atria * The left atrial size is normal. * Right atrial size is normal. * The interatrial septum is intact with no evidence for an atrial septal defect. Mitral Valve * There is moderate mitral annular calcification. * Significant mitral regurgitation is absent. Tricuspid Valve * The tricuspid valve is not well visualized, but is grossly normal. * Significant tricuspid regurgitation is absent. Aortic Valve * The aortic valve opens well. * The aortic valve is trileaflet. * No hemodynamically significant valvular aortic stenosis. * There is no significant aortic regurgitation. Pulmonic Valve * The pulmonic valve is not well visualized. Great Vessels * The aortic root and proximal ascending aorta are normal sized. Pericardium/Pleural * There is no pericardial effusion. MMode 2D Measurements and Calculations IVSd 1.1 cm IVSs 1.6 cm LVIDd 7.3 cm LVIDs 6.6 cm LVPWd 1.2 cm LVPWs 1.4 cm IVS/LVPW 0.92 FS 9.1 % EDV(Teich) 281.4 ml ESV(Teich) 226.9 ml EF(Teich) 19.4 % EDV(cubed) 390.3 ml ESV(cubed) 293.2 ml EF(cubed) 24.9 % % IVS thick 40.1 % % LVPW thick 20.0 % LV mass(C)d 419.0 grams LV mass(C)dI 177.0 grams/m\S\2 LV mass(C)s 505.5 grams LV mass(C)sI 213.5 grams/m\S\2 SV(Teich) 54.5 ml SI(Teich) 23.0 ml/m\S\2 SV(cubed) 97.1 ml SI(cubed) 41.0 ml/m\S\2 ACS 2.0 cm LA dimension 4.8 cm asc Aorta Diam 3.6 cm EDV(MOD-sp4) 220.7 ml ESV(MOD-sp4) 172.5 ml EF(MOD-sp4) 21.8 % EDV(MOD-sp2) 241.3 ml ESV(MOD-sp2) 190.7 ml EF(MOD-sp2) 21.0 % SV(MOD-sp4) 48.2 ml SI(MOD-sp4) 20.3 ml/m\S\2 SV(MOD-sp2) 50.6 ml SI(MOD-sp2) 21.4 ml/m\S\2 Doppler Measurements and Calculations MV E max mg 112.1 cm/sec MV A max mg 45.7 cm/sec MV E/A 2.5 MV P1/2t max mg 123.4 cm/sec MV P1/2t 91.5 msec MVA(P1/2t) 2.4 cm\S\2 MV dec slope 395.0 cm/sec\S\2 MV dec time 0.16 sec Ao V2 max 87.1 cm/sec Ao max PG 3.0 mmHg Ao max PG (full) 1.6 mmHg AI max mg 106.1 cm/sec AI max PG 4.5 mmHg AI dec slope 183.2 cm/sec\S\2 AI P1/2t 169.7 msec LV V1 max PG 1.4 mmHg LV V1 max 59.8 cm/sec PA V2 max 62.9 cm/sec PA max PG 1.6 mmHg
[2017-06-20] MEDS: VANCOMYCIN INJ 1,750 MG in SODIUM CHLORIDE 0.9% 500ML 500 ML IV SCH (18:26)
--- NOTE | 2017-06-20 20:19 | ELECTROENCEPHALOGRAPH REPORT ---
REQUESTING DOCTOR: ____ CLINICAL DIAGNOSES: Transient confusion, possible seizures. ELECTROENCEPHALOGRAM DIAGNOSIS: Essentially normal during wakefulness. DESCRIPTION OF TRACING: This EEG was done as a bedside recording and is of good technical quality with few or no muscle or movement artifacts. Photic stimulation was performed. Hyperventilation was not. Drowsiness is not recorded very briefly if at all and has not sustained. Under these conditions, there is evidence for what appears to be a normal background rhythm in the alpha range of up to 9 Hz of maximum frequency and 30 microvolts of maximum amplitude. This is maximum posterior head regions and bilaterally symmetrical. Polymorphic mid to slightly lower frequency of modest amplitude theta activity is seen over all head regions without clear focal or regional predominance. Anterior head region maximum bilaterally symmetrical low voltage fast activity in the beta range is present. Photic stimulation provoked some modest driving response without a immunomodulator or photoparoxysmal component. At no time during the waking tracing is there evidence for potentially epileptogenic activity in the form of polyspike or spike wave bursts, focal sharp waves or focal spikes. INTERPRETATION: This EEG is essentially normal during wakefulness without evidence for focal or generalized encephalopathy and without evidence for potentially epileptogenic activity.
[2017-06-21] VITALS (12 sets, daily range): BP systolic 106–134; BP diastolic 61–81; PULSE 72–89; TEMP 36.3–37; O2SAT 94–97
[2017-06-21] MEDS: PIPERACILL/TAZOBAC IV 4.5 GM in DEXTROSE 5% 100ML IV SCH ×3 (01:32→18:17)
[2017-06-21] MEDS: VANCOMYCIN INJ 1,750 MG in SODIUM CHLORIDE 0.9% 500ML 500 ML IV SCH ×2 (05:53→17:33)
[2017-06-21] MEDS: LEVOTHYROXINE 50 MCG TAB PO SCH (05:58)
[2017-06-21] MEDS: HEPARIN SOD 5000 UNIT/0.5 ML CARP SQ SCH ×3 (06:00→21:43)
[2017-06-21 06:11] LABS: BASO % 0.4 %; BASO ABS # 0.03 K/uL (0-0.2); COMPLETE YES; EOS % 1.6 %; HEMATOCRIT 36.3 % (42-52); IG% 0.4 %; LYMPH % 8.7 %; MEAN CELL VOLUME 79.4 fL (80-100); MEAN CORPUSCULAR HEMOGLOBIN 27.4 pg (25-34); MEAN CORPUSCULAR HGB CONC 34.4 g/dl (32-36); MEAN PLATELET VOLUME 9.2 fL (7.4-10.4); NEUT % 83.9 %; PLATELET COUNT 238 K/uL (130-400); RED BLOOD COUNT 4.57 M/uL (4.7-6.1); WHITE BLOOD COUNT 8.08 K/uL (4.8-10.8)
[2017-06-21 06:32] LABS: BUN/CREATININE RATIO 18.5 (10-20); CALCIUM 9.1 mg/dl (8.5-10.1); CREATININE 1.39 mg/dl (0.60-1.40); POTASSIUM 3.6 mmol/L (3.5-5.1)
[2017-06-21 06:36] LABS: CHOLESTEROL/HDL RATIO 4.6
[2017-06-21] MEDS: INSULIN ASPART 100 UNITS/ML 3 ML PEN SC SCH ×4 (08:12→21:43)
[2017-06-21] MEDS: ASPIRIN 81 MG ECTAB PO SCH (08:15)
[2017-06-21] MEDS: ISOSORBIDE MONONITRATE 30 MG TABCR PO SCH (08:17)
[2017-06-21] MEDS: FUROSEMIDE 80 MG TAB PO SCH ×2 (08:17→17:33)
[2017-06-21] MEDS: CLOPIDOGREL BISULFATE 75 MG TAB PO SCH (08:18)
[2017-06-21] MEDS: ATORVASTATIN 40 MG TAB PO SCH (08:18)
[2017-06-21] MEDS: METOPROLOL SUCC 25MG EXT REL TAB PO SCH ×2 (08:19→21:38)
[2017-06-21] MEDS: ALLOPURINOL 300 MG TAB PO SCH (08:20)
[2017-06-21] MEDS: SERTRALINE HCL 100 MG TAB PO SCH (08:20)
[2017-06-21] MEDS: INSULIN DETEMIR FLEXPEN/FLEX TOUCH 100 UNITS/ML 3ML SQ SCH ×2 (08:23→21:44)
--- NOTE | 2017-06-21 10:22 | Cardiology Consultation ---
Cardiology Consultation Date of Consultation: Jun 21, 2017 History of Present Illness Patient is a 66 year old male seen in cardiology consultation per the request of Fartun Lott for the cardiology evaluation stroke. The patient presented to the emergency department for change in mental status. He describes that he was "spaced out". He felt generalized weakness. He does not quite feel like his back to himself yet, but generally feels improved. He is napping. Patient denies any chest discomfort or shortness of breath. He denies any changes in his vision. His long-standing history of nonischemic cardiomyopathy with severe left ventricular systolic dysfunction and biventricular AICD which was placed in 2014. He typically follows with Dr. Hua Perry of our practice with most recent outpatient cardiology visit in November 2016 with Alisa NAM. Past Medical/Surgical History Problem List: Medical Problems: (1) Acute encephalopathy (2) Adjustment disorder with depressed mood (3) Biventricular ICD (implantable cardioverter-defibrillator) in place (4) CAD (coronary artery disease) (5) CHF (congestive heart failure) (6) Chronic systolic CHF (congestive heart failure) (7) Diabetic retinopathy (8) DM type 2 (diabetes mellitus, type 2) (9) Dyslipidemia (10) Gout (11) HTN (hypertension) (12) Hypothyroidism (13) Lung nodule (14) Neuropathy due to type 2 diabetes mellitus (15) Nonischemic cardiomyopathy Surgical Problems: (1) History of amputation of finger of left hand (2) History of implantable cardioverter-defibrillator (ICD) placement (3) Hx of BKA (4) S/P coronary artery stent placement History Past Medical History: 1. 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 Superimposed ischemic heart disease status post cardiac catheterization and to coronary intervention for a high-grade LAD stenosis in April 2014 3. Long-standing history with diabetes, neuropathy, vasculopathy with multiple finger amputations, and left [id number] amputation with recurrent osteomyelitis 4. Dyslipidemia Past Surgical History: As noted above Social History: The patient is a lifelong nonsmoker with no alcohol use, he is and lives with his spouse Family History: His father's with a history of heart disease, details unknown Review Of Systems See above for pertinent positives & negatives. A total of 10 systems reviewed and were otherwise negative. Allergies Coded Allergies: Gemfibrozil (Verified Allergy, Unknown, 06/19/17) Medications Reported Home Medications Medications Dose Route/Sig Max Daily Dose Days Date Category Dose Instructions Proair Respiclick (Albuterol Sulfate) 108 Mcg/Act Aer 2 Puffs INH Q4 PRN 06/19/17 Reported Meclizine 25 (Meclizine HCl) 25 Mg Tab 25 Mg PO TID PRN 06/19/17 Reported Micronase (Glyburide) 5 Mg Tab 5 Mg PO DAILYBB 06/19/17 Reported Levemir (Insulin Detemir) 1,000 Units/10 Ml Inj 25 Units SQ BID 06/19/17 Reported Zyloprim (Allopurinol) 100 Mg Tab 300 Mg PO DAILY 03/27/17 Reported Sertraline HCl 100 Mg Tab 100 Mg PO DAILY 03/27/17 Reported Novolin R (Insulin Human Regular) 100 Units/1 Ml Inj 3 Units SQ BREAKFAST&JOHNIE MEALS 01/19/17 Reported TAKE 3 UNITS SQ BEFORE BREAKFAST AND EVENING MEALS. Lasix (Furosemide) 80 Mg Tab 80 Mg PO BID 01/19/17 Reported Imdur Ext Rel (Isosorbide Mononitrate) 30 Mg Ertab 15 Mg PO QAM 12/10/15 Reported 1/2 TABLET DOSE Synthroid (Levothyroxine Sodium) 50 Mcg Tab 50 Mcg PO DAILY 04/09/15 Reported Cozaar (Losartan Potassium) 25 Mg Tab 25 Mg PO DAILY 04/09/15 Reported Toprol Xl (Metoprolol Succinate) 25 Mg Tab 25 Mg PO BID 04/09/15 Reported Zaroxolyn (Metolazone) 2.5 Mg Tab 2.5 Mg PO WK 04/09/15 Reported TAKE ON SUNDAYS Aspirin Ec (Aspirin) 81 Mg Tab 81 Mg PO DAILY 04/04/14 Reported Lipitor (Atorvastatin Calcium) 80 Mg Tab 80 Mg PO DAILY 12/02/09 Reported Physical Exam Vital Signs (Last 8hrs): Last 8 Hrs Date Time Temp Pulse Resp B/P (MAP) Pulse Ox O2 Delivery O2 Flow Rate FiO2 06/21/17 08:43 96 Room Air 06/21/17 07:12 36.8 78 20 114/63 (80) 96 Room Air 06/21/17 04:00 94 Room Air 06/21/17 03:05 37.0 79 20 106/61 (76) 94 Room Air General Appearance: Alert and Oriented x3. NAD. Head: Normocephalic Atraumatic. Eyes: PERRLA, EOMI, conjunctiva and sclera clear Neck: Supple. No carotid bruits noted. No JVD. No HJD. Respiratory: Breath sounds clear to auscultation bilaterally. No w/r/r. Cardiovascular: Reg rate and rhythm. S1 and S2 noted. No murmurs, rubs, gallops. PMI non displace. Abdomen: Normal bowel sounds, soft nontender. no abdominal bruits. Extremities: Status post multiple finger indications on both hands, suspect post left [id number] indication, the right leg has no edema, there is a wound noted at the remnant of the right ring finger at the level. Proximal interphalangeal joint where his previous amputation had taken place Neuro: No focal deficits. Psychiatric: Normal affect. Data Last Resulted 06/21/17 05:10 Red Blood Count 4.57, Mean Corpuscular Volume 79.4, Mean Corpuscular Hemoglobin 27.4, Mean Corpuscular Hemoglobin Concent 34.4, Mean Platelet Volume 9.2, Neutrophils (%) (Auto) 83.9, Lymphocytes (%) (Auto) 8.7, Monocytes (%) (Auto) 5.0, Eosinophils (%) (Auto) 1.6, Basophils (%) (Auto) 0.4, Neutrophils # (Auto) 6.79, Lymphocytes # (Auto) 0.70, Monocytes # (Auto) 0.40, Eosinophils # (Auto) 0.13, Basophils # (Auto) 0.03 Last Resulted 06/21/17 05:10 EKG performed on admission revealed normal sinus rhythm at 81 bpm, with age- indeterminate inferior and anterior infarction patterns. Repeat EKG on was unchanged. Telemetry was reviewed. The predominant rhythm is sinus rhythm with occasional PVCs, and occasional ventricular paced QRS complexes. There is a fourth HEENT beat aleksandr of nonsustained ventricular tachycardia with rate of 163 bpm noted on 06/20/17 at 2333 hrs. with spontaneous conversion to sinus rhythm. Summary of transthoracic echocardiogram performed 06/20/17 at [facility]: * -- Conclusions -- * The left ventricle is severely dilated. * There is mild concentric left ventricular hypertrophy. * Left ventricular systolic function is severely reduced. * Ejection Fraction = 15-20%. * The right ventricular systolic function is normal. * The study was technically limited. The patient's most recent device check in our office took place on 11/18/16. He has a history of a biventricular [employer] AICD placed in [address] [facility] [address] Maza. Her most recent check he was left ventricular paced 98% time no atrial fibrillation was noted. Carotid duplex performed 06/20/17: 50-69% stenosis in the left internal carotid artery CT of the brain performed 06/20/17 revealed acute/subacute infarct involving the right basal ganglia and anterior limb of the right internal capsule, no acute hemorrhage Assessment & Plan Impression: 66-year-old male 1. 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 Compensated nonischemic cardiomyopathy, severe left ventricular systolic dysfunction 3. History of biventricular AICD 4. Nonsustained ventricular tachycardia, asymptomatic 5. Right fourth finger cellulitis, possibly recurrent MRSA infection Plan: The patient was seen and examined. His outpatient chart was reviewed. I also discussed the case with Dr. 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 Regarding his nonsustained ventricular tachycardia, recommend continuing his third hospital dose of metoprolol succinate. Agree with antibiotics for presumed right finger infection, may require surgical debridement when he is deemed stable from a neurologic standpoint. At this time, the patient certainly has risk factors to explain stroke, I do not think that proceeding with a transesophageal echocardiogram would change his management. There is no evidence of definite ventricular mural thrombus on his transthoracic echocardiogram reviewed He does however have severe left ventricular systolic dysfunction. He is overdue for having his device checked. No atrial fibrillation is noted on telemetry, he does not have a history of paroxysmal atrial fibrillation on past device checks. I have asked [employer] to come and check his defibrillator , if there are episodes of paroxysmal atrial fibrillation, would recommend adding Coumadin to his aspirin. If no atrial fibrillation is present, would favor adding clopidogrel to his aspirin, the patient has had difficulty with adherence in the past, and his past recurrent infections mostly been related to complications related to diabetes and diabetic neuropathy rather than occlusive vascular disease per his history. Avoid pacemaker/AICD check. Will follow the patient with you. Humberto Iverson,DO
[2017-06-21] MEDS ORDERED: PHARMACY GLYCEMIC MGMT CONSULT PRN (13:15)
--- NOTE | 2017-06-21 13:27 | Pharmacy Progress Note ---
Glycemic Control Intl Consult Date of Service Jun 21, 2017. Scope Glycemic Pharmacist consulted by Dr Busby on 06/21/17 for glycemic control and to write orders per [facility] inpatient glycemic control protocol Objective Weight (Kilograms): 113.900 Accuchecks BSG (last 24hrs): Test 06/20/17 16:04 06/20/17 20:07 06/21/17 05:10 06/21/17 06:52 Bedside Glucose 255 mg/dl (70-99) 185 mg/dl (70-99) 181 mg/dl (70-99) Random Glucose 148 mg/dl (70-99) Test 06/21/17 11:04 Bedside Glucose 219 mg/dl (70-99) Laboratory Data (last 24hrs) Test 06/21/17 05:10 Anion Gap 7.0 mmol/L BUN/Creatinine Ratio 18.5 Blood Urea Nitrogen 26 mg/dl Creatinine 1.39 mg/dl Potassium Level 3.6 mmol/L Sodium Level 138 mmol/L White Blood Count 8.08 K/uL Red Blood Count 4.57 M/uL Hemoglobin 12.5 g/dL Hematocrit 36.3 % Mean Corpuscular Volume 79.4 fL Mean Corpuscular Hemoglobin 27.4 pg Mean Corpuscular Hemoglobin Concent 34.4 g/dl Platelet Count 238 K/uL Mean Platelet Volume 9.2 fL Neutrophils (%) (Auto) 83.9 % Lymphocytes (%) (Auto) 8.7 % Monocytes (%) (Auto) 5.0 % Eosinophils (%) (Auto) 1.6 % Basophils (%) (Auto) 0.4 % Neutrophils # (Auto) 6.79 K/uL Lymphocytes # (Auto) 0.70 K/uL Monocytes # (Auto) 0.40 K/uL Eosinophils # (Auto) 0.13 K/uL Basophils # (Auto) 0.03 K/uL HbA1c Test 06/20/17 05:20 Hemoglobin A1c 9.2 % (4.5-5.6) H Recent Pertinent Medications Outpatient Anti-diabetic Regimen: * Levemir 25 units BID plus Humulin R 3 units before breakfast and super; Glyburide 5 mg PO daily before breakfast The patient is currently receiving: * Basal insulin: Levemir 20 units every 12 hours * Correctional Insulin: Novolog Correction per scale ACHS Goal Range: Low 140 mg/dL - High 180 mg/dL Correction Factor: 35 mg/dL/unit * Prandial insulin: Per carb ratio of 1 unit per 12 grams CHO consumed Risk Factors for Insulin Resistance: * Infection: infection on finger - treated with vancomycin and Zosyn * Recent Surgery: POD 1 for debridement * Diet: type 2 diabetic diet Assessment & Plan ASSESSMENT: * ADA & AACE recommend a goal blood sugar range 140-180 mg/dl for the majority of critically ill & non-critically ill patients. However, more stringent targets may be selected in individual cases. Will utilize more stringent goal of 110-140mg/dl based on patient age & comorbidities. Additionally, tighter glycemic control is warranted to facilitate wound healing. * Mr Koroma is a 66 y/o M well known to the diabetes service who was admitted yesterday with encephalopathy. He also has a wound on his finger that required debridement yesterday. Patient has a PMH of CHF, amputations, and CAD with stents and ICD placement. * During the last admission, Mr Koroma's insulin requirements while hospitalized decreased dramatically from greater than 100 units of insulin per day to around 50 units per day. It appears that this admission may follow the most recent one. * Today's fasting blood sugar was 181 mg/dL which was within the goal range of 140 -180 mg/dL set by the provider. He has received Lantus 20 units SQ twice daily. A sliding scale will be set up for this evening that provides the patient 's home dose of 25 units along with two reduced doses. * The patient's correctional insulin appears to have been sufficient for him for the goal range selected. (Goal range has now been reduced.) Will monitor closely as patient has tolerated more aggressive parameters. PLAN FOR INPATIENT GLYCEMIC CONTROL: * Holding outpatient oral diabetes medications * Basal insulin with LEVEMIR 15-25 units SQ BID (Levemir 15 units if blood sugar less than 120 mg/dL; Levemir 20 units if blood sugar 120-180 mg/dL; Levemir 25 units if blood sugar greater than 180 mg/dL) * Correctional Insulin with NOVOLOG per scale ACHS or Q6hrs while NPO * Goal Range: Low 110 mg/dL - High 140 mg/dL * Correction Factor: 35 mg/dL/unit * Nutritional / Prandial insulin per carb ratio of 1 unit per 12 grams CHO consumed * Please note that the plan above was derived based on current level of insulin resistance and hospital stress. These recommendations are appropriate for inpatient admission only. Plan of care upon discharge will need to be reassessed to avoid potential outpatient hypo/hyperglycemia. Thank you.
--- NOTE | 2017-06-21 15:38 | Neurology Progress Notes ---
Neurology Progress Note Date of Service Jun 21, 2017. Yosef Mercado is a 66 year old male with PMH - DM II, Hypoglycemia associated autonomic failure, ICD with EF: 20% S/P ICD placement, CAD S/P Stent in 2013, CKD III, Hypothyroidism, Depression, anxiety, chronic ambulatory dysfunction, diabetic vasculopathy s/p L BKA and multiple amputations of fingers. He presented with a sudden onset of lethargy which was noticed by his spouse today and she called 911 and was brought to the hospital. He remembers the ambulance coming to the house and then the next think he remembers is the ER. He was on aspirin 81 mg prior to this event. He is oriented X 3 andHe states he has chronic SOB on exertion and intermittent dizziness. +ambulatory dysfunction, digit amputation and BKA -L. Today he states he is doing ok but he is very tired. denies any fall, head trauma, LOC, one sided weakness, numbness tingling, incontinence biting of tongue, N, V Objective Date Time Temp Pulse Resp B/P (MAP) Pulse Ox O2 Delivery O2 Flow Rate FiO2 06/21/17 12:00 Room Air 06/21/17 10:45 36.5 89 20 134/81 (98) 97 Room Air 06/21/17 08:43 96 Room Air 06/21/17 08:00 Room Air 06/21/17 07:12 36.8 78 20 114/63 (80) 96 Room Air 06/21/17 04:00 94 Room Air 06/21/17 03:05 37.0 79 20 106/61 (76) 94 Room Air 06/21/17 00:00 95 Room Air 06/20/17 23:00 36.5 81 20 131/75 (93) 95 Room Air 06/20/17 22:35 82 116/70 (85) 95 06/20/17 21:28 86 139/79 (99) 06/20/17 20:00 Room Air 06/20/17 19:50 36.7 86 18 116/72 (87) 97 Room Air 06/20/17 16:00 95 Room Air 06/20/17 15:57 36.8 88 18 120/76 (91) 95 Room Air Last 24 Hours Test 06/20/17 16:04 06/20/17 20:07 06/21/17 05:10 06/21/17 06:52 Bedside Glucose 255 mg/dl 185 mg/dl 181 mg/dl White Blood Count 8.08 K/uL Red Blood Count 4.57 M/uL Hemoglobin 12.5 g/dL Hematocrit 36.3 % Mean Corpuscular Volume 79.4 fL Mean Corpuscular Hemoglobin 27.4 pg Mean Corpuscular Hemoglobin Concent 34.4 g/dl Platelet Count 238 K/uL Mean Platelet Volume 9.2 fL Neutrophils (%) (Auto) 83.9 % Lymphocytes (%) (Auto) 8.7 % Monocytes (%) (Auto) 5.0 % Eosinophils (%) (Auto) 1.6 % Basophils (%) (Auto) 0.4 % Neutrophils # (Auto) 6.79 K/uL Lymphocytes # (Auto) 0.70 K/uL Monocytes # (Auto) 0.40 K/uL Eosinophils # (Auto) 0.13 K/uL Basophils # (Auto) 0.03 K/uL RDW Standard Deviation 48.0 fL RDW Coefficient of Variation 16.7 % Immature Granulocyte % (Auto) 0.4 % Immature Granulocyte # (Auto) 0.03 K/uL Sodium Level 138 mmol/L Potassium Level 3.6 mmol/L Chloride Level 103 mmol/L Carbon Dioxide Level 28 mmol/L Anion Gap 7.0 mmol/L Blood Urea Nitrogen 26 mg/dl Creatinine 1.39 mg/dl Est Creatinine Clear Calc Drug Dose 66.1 ml/min Estimated GFR () 60.8 Estimated GFR (Non- 52.4 BUN/Creatinine Ratio 18.5 Random Glucose 148 mg/dl Calcium Level 9.1 mg/dl Triglycerides Level 138 mg/dl Cholesterol Level 153 mg/dl HDL Cholesterol 33 mg/dl LDL Cholesterol, Calculated 92 mg/dl VLDL Cholesterol, Calculated 28 mg/dl Cholesterol/HDL Ratio 4.6 Test 06/21/17 11:04 Bedside Glucose 219 mg/dl Imaging: EEG- This EEG is essentially normal during wakefulness without evidence for focal or generalized encephalopathy and without evidence for potentially epileptogenic activity. TTE * The left ventricle is severely dilated. * There is mild concentric left ventricular hypertrophy. * Left ventricular systolic function is severely reduced. * Ejection Fraction = 15-20%. * The right ventricular systolic function is normal. * The study was technically limited. Exam: Physical Exam: Constitutional: appearance nourished ill appearing Ears, Nose, Mouth and Throat: mucous membranes moist, no injection and skin normal, eyes normal Cardiovascular: normal S-1 and S-2 and regular rate and rhythm Respiratory: course breath sound Musculoskeletal: LLE BKA Skin: multiple scabbed areas on arms and legs, right 2nd digit necrosis at tip Eyes: extraocular muscles intact (EOMI) and pupils equal, round and reactive to light (PERRL) NEUROLOGIC EXAMINATION: Mental status: Alert and interactive Oriented to person Speech fluent with no evidence of aphasia Cranial Nerves smile eye brow raise symmetric Reflexes: symmetric bilaterally Sensory: no sensation to light or cool touch from foot to knee right and to knee on left Coordination: finger to nose without bi pass Gait/Stance: Posture lying in bed Strength: biceps 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 5/5 bilaterally, hip flex bilaterally 5/5 Current Inpatient Medications Medications (Trade) Dose Ordered Sig/Ifeanyi Route Start Time Stop Time Status Last Admin Dose Admin Miscellaneous Information (Pharmacist Discharge Med Rec Consult) 1 ea UD PRN N/A 06/20/17 02:45 07/20/17 02:44 Heparin Sodium (Porcine) (Heparin Sq 5000 Unit/0.5ml) 5,000 unit Q8 SQ 06/20/17 06:00 07/20/17 05:59 06/21/17 13:56 5,000 UNIT Acetaminophen (Tylenol Tab) 650 mg Q4H PRN PO 06/20/17 02:45 07/20/17 02:44 Vancomycin HCl (Consult) 1 ea DAILY PRN N/A 06/20/17 03:27 07/20/17 03:26 Allopurinol (Zyloprim Tab) 300 mg DAILY PO 06/20/17 09:00 07/20/17 08:59 06/21/17 08:20 300 MG Aspirin (Ecotrin Tab) 81 mg DAILY PO 06/21/17 09:00 07/21/17 08:59 06/21/17 08:15 81 MG Atorvastatin Calcium (Lipitor Tab) 80 mg DAILY PO 06/20/17 09:00 07/20/17 08:59 06/21/17 08:18 80 MG Furosemide (Lasix Tab) 80 mg BID17 PO 06/20/17 09:00 07/20/17 08:59 06/21/17 08:17 80 MG Isosorbide Mononitrate (Imdur Ext Rel Tab) 15 mg QAM PO 06/20/17 09:00 07/20/17 08:59 06/21/17 08:17 15 MG Levothyroxine Sodium (Synthroid Tab) 50 mcg DAILYBB PO 06/20/17 06:00 07/20/17 05:59 06/21/17 05:58 50 MCG Metoprolol Succinate (Toprol Xl Tab) 25 mg BID PO 06/20/17 09:00 07/20/17 08:59 06/21/17 08:19 25 MG Sertraline HCl (Zoloft Tab) 100 mg DAILY PO 06/20/17 09:00 07/20/17 08:59 06/21/17 08:20 100 MG Insulin Aspart (novoLOG ASPART) SLIDING SCALE If C... ACHS SC 06/20/17 07:00 07/20/17 06:59 06/21/17 12:05 4 UNITS Glucose (Glucose 40% Gel) 15-30 GRAMS 15 GRAMS... UD PRN PO 06/20/17 03:00 07/20/17 02:59 Glucose (Glucose Chew Tab) 4-8 Tablets 4 Tabl... UD PRN PO 06/20/17 03:00 07/20/17 02:59 Dextrose (Dextrose 50% 50ML Syringe) 25-50ML OF 50% DW IV FOR... UD PRN IV 06/20/17 03:00 07/20/17 02:59 Glucagon (Glucagon Inj) 1 mg UD PRN SQ 06/20/17 03:00 07/20/17 02:59 Albuterol Sulfate (Ventolin 0.083% 2.5MG/3ML Neb) 2.5 mg Q6R PRN INH 06/20/17 03:15 07/20/17 03:14 Piperacillin Sod/ Tazobactam Sod (Consult) 1 ea UD PRN N/A 06/20/17 03:30 07/20/17 03:29 Promethazine HCl 12.5 mg/Sodium Chloride 50.5 ml @ 204 mls/hr Q6H PRN IV 06/20/17 04:45 07/20/17 04:44 Piperacillin Sod/ Tazobactam Sod 4.5 gm/Dextrose 120 ml @ 30 mls/hr Q8H IV 06/20/17 10:00 06/30/17 09:59 06/21/17 10:02 30 MLS/HR Vancomycin HCl 1750 mg/Sodium Chloride 535 ml @ 200 mls/hr Q12H IV 06/20/17 18:00 06/30/17 17:59 Future Hold 06/21/17 05:53 200 MLS/HR Clopidogrel Bisulfate (plAVix TAB) 75 mg QAM PO 06/21/17 09:00 07/21/17 08:59 06/21/17 08:18 75 MG Miscellaneous Information (Consult Glycemic Management Pharmacy) 1 ea UD PRN N/A 06/21/17 13:15 07/21/17 13:14 Insulin Detemir (Levemir Flexpen/ FlexTouch) PLEASE SEE PROTOCOL TEXT BID SQ 06/21/17 21:00 07/21/17 20:59 Impression 66 year old with change MS and slurred speech - inter capsule stroke Plan 1. repeat CT head - done inter capsule infarct 2. TTE limited study- cardiology will not do RUIZ at this time feels this would not change plan of care. 3. EEG competed no seizure activity 4. permissive hypertension then optimize HTN, DM, DL 5. treatment of right hand infection currently on vancomycin, Zosyn - ID consult for direction of therapy 6. aspirin 81 mg continue add plavix 75 mg daily- cardiology also recommended same 7. carotid doppler 50-69% stenosis of the left internal carotid artery. will need to be repeated in 1 year 8. PT/OT/ speech for discharge needs 9. appointment with neurology 3-4 weeks after discharge from hospital or after discharge from rehab I have seen and discussed above patient with Dr Kip Zarco, neurology Ptient seen and examined above reviewed and agree Cardiology is interrogating the pace to check for a fib and if present then coumadin will be added if not then asa and plavix Exam show subtel left umn weakness of face and arm so suspect the infarct is indeed recent and the patient unfortunately has some neglect and denial of deficits that we often see in nondominant hemispheric events will follw up tomorrow and then likely sign off as at this time we have no further suggestions and the working diagnosis will be a acute cva Kip Zarco MD
--- NOTE | 2017-06-21 17:40 | Progress Note ---
Internal Med Progress Note Date of Service: Jun 21, 2017. Provider Documentation: SUBJECTIVE: awake and alert offers no complain no pain or discomfort on Rt hand infected 3 rd finger speech fluent OBJECTIVE: Vital Signs-as noted below Exam: General-obese , no apparent distress Eyes-sclera non icteric , PERRLA/EOMI ENT-NAD Neck-No thyromegaly Lungs-no rales or wheeze Heart-regular Abdomen-soft, non tender Extremities-amputation of multiple digits on both hand , infected rt 3rd finger , wound bed appears to dry , no active bleeding or drainage noted, s/p left bka Neuro-no focal deficit Lab data as noted below. ASSESSMENT & PLAN: ACUTE CVA presented with altered mental status -mental status improved to baseline , at present conversing appropriately Encephalopathy:could be multifactorial CT head showed 1.7 cm hypodensity within the right caudate head and anterior limb of the internal capsule consistent with an acute to subacute infarct. Was not a candidate for tPA- No focal neuro deficits on exam Unable to get MRI Brain, MRA Head/Neck due to ICD Continue aspirin, Lipitor and Plavix Neurology consulted-appreciate input Carotid duplex performed 06/20/17: 50-69% stenosis in the left internal carotid artery INFECTED RT 3RD FINGER WOUND wound culture : staph aureus /enterococcus appreciate input form wound care S/P debridement by Wound team Dr. Nicolas Continue IV Vanco and Zosyn ID eval requested will do daily wound care continue monitor cbc DM II: Diabetic Neuropathy/Vasculopathy Will hold oral diabetic meds Last A1c: 9.2 on 06/20/17 ISS, basal Insulin Continue monitor BS H/O Syncope 2/2 Hypoglycemia associated autonomic failure Fall precautions PT/OT Stable Ischemic cardiomyopathy Last EF: 20% S/P ICD placement No signs of fluid overload stable CARDIAC ARRHYTHMIA : non sustained v tach noted in tele pt did not had any symptoms appreciate input form cardiology no evidence of paroxysmal afib in prior AICD interrogation brief episode of ventricular arrhythmia could due to acute illness in setting of severe cardiomyopathy repeat device interrogation ordered if Afib noted -pt will need Coumadin to be added cont to monitor in tele CAD S/P Stent in 2013: Continue ASA, statins, BB CKD III: Cr stable Monitor renal function Hypothyroidism: continue levothyroxine TSH wnl Stable Depression/anxiety: continue Zoloft DVT Px: Heparin SQ Code Status Full Code Consultants: Neuro DISPOSITION expected to be discharged home when medically stable Vital Signs: Date Time Temp Pulse Resp B/P (MAP) Pulse Ox O2 Delivery O2 Flow Rate FiO2 06/21/17 19:12 36.8 79 19 120/71 (87) 95 Room Air 06/21/17 16:00 94 Room Air 06/21/17 15:23 36.9 79 20 124/63 (83) 94 Room Air 06/21/17 12:00 Room Air 06/21/17 10:45 36.5 89 20 134/81 (98) 97 Room Air 06/21/17 08:43 96 Room Air 06/21/17 08:00 Room Air 06/21/17 07:12 36.8 78 20 114/63 (80) 96 Room Air 06/21/17 04:00 94 Room Air 06/21/17 03:05 37.0 79 20 106/61 (76) 94 Room Air 06/21/17 00:00 95 Room Air 06/20/17 23:00 36.5 81 20 131/75 (93) 95 Room Air 06/20/17 22:35 82 116/70 (85) 95 06/20/17 21:28 86 139/79 (99) Lab Results: Results Past 24 Hours Test 06/21/17 05:10 06/21/17 06:52 06/21/17 11:04 Range/Units White Blood Count 8.08 4.8-10.8 K/uL Red Blood Count 4.57 4.7-6.1 M/uL Hemoglobin 12.5 14.0-18.0 g/dL Hematocrit 36.3 42-52 % Mean Corpuscular Volume 79.4 80-100 fL Mean Corpuscular Hemoglobin 27.4 25-34 pg Mean Corpuscular Hemoglobin Concent 34.4 32-36 g/dl Platelet Count 238 130-400 K/uL Mean Platelet Volume 9.2 7.4-10.4 fL Neutrophils (%) (Auto) 83.9 % Lymphocytes (%) (Auto) 8.7 % Monocytes (%) (Auto) 5.0 % Eosinophils (%) (Auto) 1.6 % Basophils (%) (Auto) 0.4 % Neutrophils # (Auto) 6.79 1.4-6.5 K/uL Lymphocytes # (Auto) 0.70 1.2-3.4 K/uL Monocytes # (Auto) 0.40 0.11-0.59 K/uL Eosinophils # (Auto) 0.13 0-0.5 K/uL Basophils # (Auto) 0.03 0-0.2 K/uL RDW Standard Deviation 48.0 36.4-46.3 fL RDW Coefficient of Variation 16.7 11.5-14.5 % Immature Granulocyte % (Auto) 0.4 % Immature Granulocyte # (Auto) 0.03 0.00-0.02 K/uL Sodium Level 138 136-145 mmol/L Potassium Level 3.6 3.5-5.1 mmol/L Chloride Level 103 98-107 mmol/L Carbon Dioxide Level 28 21-32 mmol/L Anion Gap 7.0 3-11 mmol/L Blood Urea Nitrogen 26 7-18 mg/dl Creatinine 1.39 0.60-1.40 mg/dl Est Creatinine Clear Calc Drug Dose 66.1 ml/min Estimated GFR () 60.8 Estimated GFR (Non- 52.4 BUN/Creatinine Ratio 18.5 10-20 Random Glucose 148 70-99 mg/dl Calcium Level 9.1 8.5-10.1 mg/dl Triglycerides Level 138 0-150 mg/dl Cholesterol Level 153 0-200 mg/dl HDL Cholesterol 33 mg/dl LDL Cholesterol, Calculated 92 mg/dl VLDL Cholesterol, Calculated 28 mg/dl Cholesterol/HDL Ratio 4.6 Bedside Glucose 181 219 70-99 mg/dl
[2017-06-22] VITALS (10 sets, daily range): BP systolic 115–139; BP diastolic 43–79; PULSE 63–72; TEMP 36.3–36.7; O2SAT 95–98
[2017-06-22] MEDS: PIPERACILL/TAZOBAC IV 4.5 GM in DEXTROSE 5% 100ML IV SCH ×3 (02:10→18:01)
[2017-06-22 05:22] LABS: BASO % 0.7 %; BASO ABS # 0.04 K/uL (0-0.2); COMPLETE YES; EOS % 3.8 %; HEMATOCRIT 35.1 % (42-52); IG% 0.5 %; LYMPH % 23.7 %; LYMPH ABS # 1.31 K/uL (1.2-3.4); MEAN CELL VOLUME 79.6 fL (80-100); MEAN CORPUSCULAR HGB CONC 33.9 g/dl (32-36); MEAN PLATELET VOLUME 9.5 fL (7.4-10.4); MONO % 5.6 %; NEUT % 65.7 %; PLATELET COUNT 237 K/uL (130-400); RED BLOOD COUNT 4.41 M/uL (4.7-6.1); WHITE BLOOD COUNT 5.52 K/uL (4.8-10.8)
[2017-06-22] MEDS ORDERED: VANCOMYCIN TROUGH ONE (05:30)
[2017-06-22] MEDS: HEPARIN SOD 5000 UNIT/0.5 ML CARP SQ SCH ×3 (05:40→20:39)
[2017-06-22] MEDS: LEVOTHYROXINE 50 MCG TAB PO SCH (05:41)
[2017-06-22 05:48] LABS: CALCIUM 8.5 mg/dl (8.5-10.1); CREATININE 1.47 mg/dl (0.60-1.40); POTASSIUM 3.4 mmol/L (3.5-5.1)
[2017-06-22] MEDS: INSULIN ASPART 100 UNITS/ML 3 ML PEN SC SCH ×4 (07:56→20:38)
[2017-06-22] MEDS: ASPIRIN 81 MG ECTAB PO SCH (09:44)
[2017-06-22] MEDS: ISOSORBIDE MONONITRATE 30 MG TABCR PO SCH (09:45)
[2017-06-22] MEDS: FUROSEMIDE 80 MG TAB PO SCH ×2 (09:45→16:58)
[2017-06-22] MEDS: CLOPIDOGREL BISULFATE 75 MG TAB PO SCH (09:46)
[2017-06-22] MEDS: ATORVASTATIN 40 MG TAB PO SCH (09:46)
[2017-06-22] MEDS: METOPROLOL SUCC 25MG EXT REL TAB PO SCH ×2 (09:46→20:31)
[2017-06-22] MEDS: SERTRALINE HCL 100 MG TAB PO SCH (09:47)
[2017-06-22] MEDS: ALLOPURINOL 300 MG TAB PO SCH (09:47)
[2017-06-22] MEDS: INSULIN DETEMIR FLEXPEN/FLEX TOUCH 100 UNITS/ML 3ML SQ SCH ×2 (09:49→20:38)
--- NOTE | 2017-06-22 09:59 | Medical Consult ---
Consultation Date of Consultation: Jun 22, 2017. Attending Physician: Kelsey Busby M.D. Reason for Consultation: Infected diabetic finger wound History of Present Illness 66-year-old male known to me from previous infectious disease consultations with history of poorly-controlled diabetes mellitus, coronary artery disease, status post defibrillator, severe vascular disease status post left BKA and multiple finger amputations, who was admitted on the with acute change in mental status. Was found to have subacute infarct on CT scanning. He was also noted to have necrotic infection of his right 3rd finger, has now had debridement by wound care with cultures growing Enterococcus, Staph aureus, and Gram-negative bacilli. Previous infection involved methicillin sensitive Staph aureus. He has improved in terms of his mental status, and currently is receiving vancomycin and Zosyn for his infection. Patient not able to give adequate review of systems, currently says he feels okay. No fever.White count has improved from 11,000 to 5500. Past Medical/Surgical History Medical Problems: (1) Acute renal injury Status: Acute (2) Altered mental status Status: Acute (3) C. difficile diarrhea Status: Acute (4) Cellulitis of right hand Status: Acute (5) Dehydration Status: Acute (6) Diabetes Status: Acute (7) Hemothorax on right Status: Acute (8) Hyperglycemia Status: Acute (9) Hypoglycemia Status: Acute (10) Hypoglycemia Status: Acute (11) Hypothermia Status: Acute (12) Infection of finger Status: Acute (13) Multiple rib fractures Status: Acute (14) Necrotic wound of right hand Status: Acute (15) Pleural effusion, right Status: Acute (16) Right-sided chest pain Status: Acute (17) Septic shock Status: Acute (18) Severe sepsis Status: Acute (19) Stroke Status: Acute Medical Problems: (1) Acute encephalopathy (2) Adjustment disorder with depressed mood (3) Biventricular ICD (implantable cardioverter-defibrillator) in place (4) CAD (coronary artery disease) (5) CHF (congestive heart failure) (6) Chronic systolic CHF (congestive heart failure) (7) Diabetic retinopathy (8) DM type 2 (diabetes mellitus, type 2) (9) Dyslipidemia (10) Gout (11) HTN (hypertension) (12) Hypothyroidism (13) Lung nodule (14) Neuropathy due to type 2 diabetes mellitus (15) Nonischemic cardiomyopathy Surgical Problems: (1) History of amputation of finger of left hand (2) History of implantable cardioverter-defibrillator (ICD) placement (3) Hx of BKA (4) S/P coronary artery stent placement Family History Diabetes mellitus MOTHER FH: CAD (coronary artery disease) FATHER Social History Smoking Status: Never Smoker Alcohol Use: none Drug Use: none Marital Status: Housing Status: lives with family Occupation Status: disabled Allergies Coded Allergies: Gemfibrozil (Verified Allergy, Unknown, 06/19/17) Current Inpatient Medications Current Inpatient Medications Medications (Trade) Dose Ordered Sig/Ifeanyi Route Start Time Stop Time Status Last Admin Dose Admin Miscellaneous Information (Pharmacist Discharge Med Rec Consult) 1 ea UD PRN N/A 06/20/17 02:45 07/20/17 02:44 Heparin Sodium (Porcine) (Heparin Sq 5000 Unit/0.5ml) 5,000 unit Q8 SQ 06/20/17 06:00 07/20/17 05:59 06/22/17 05:40 5,000 UNIT Acetaminophen (Tylenol Tab) 650 mg Q4H PRN PO 06/20/17 02:45 07/20/17 02:44 Vancomycin HCl (Consult) 1 ea DAILY PRN N/A 06/20/17 03:27 07/20/17 03:26 Allopurinol (Zyloprim Tab) 300 mg DAILY PO 06/20/17 09:00 07/20/17 08:59 06/21/17 08:20 300 MG Aspirin (Ecotrin Tab) 81 mg DAILY PO 06/21/17 09:00 07/21/17 08:59 06/21/17 08:15 81 MG Atorvastatin Calcium (Lipitor Tab) 80 mg DAILY PO 06/20/17 09:00 07/20/17 08:59 06/21/17 08:18 80 MG Furosemide (Lasix Tab) 80 mg BID17 PO 06/20/17 09:00 07/20/17 08:59 06/21/17 17:33 80 MG Isosorbide Mononitrate (Imdur Ext Rel Tab) 15 mg QAM PO 06/20/17 09:00 07/20/17 08:59 06/21/17 08:17 15 MG Levothyroxine Sodium (Synthroid Tab) 50 mcg DAILYBB PO 06/20/17 06:00 07/20/17 05:59 06/22/17 05:41 50 MCG Metoprolol Succinate (Toprol Xl Tab) 25 mg BID PO 06/20/17 09:00 07/20/17 08:59 06/21/17 21:38 25 MG Sertraline HCl (Zoloft Tab) 100 mg DAILY PO 06/20/17 09:00 07/20/17 08:59 06/21/17 08:20 100 MG Insulin Aspart (novoLOG ASPART) SLIDING SCALE If C... ACHS SC 06/20/17 07:00 07/20/17 06:59 06/22/17 07:56 4 UNITS Glucose (Glucose 40% Gel) 15-30 GRAMS 15 GRAMS... UD PRN PO 06/20/17 03:00 07/20/17 02:59 Glucose (Glucose Chew Tab) 4-8 Tablets 4 Tabl... UD PRN PO 06/20/17 03:00 07/20/17 02:59 Dextrose (Dextrose 50% 50ML Syringe) 25-50ML OF 50% DW IV FOR... UD PRN IV 06/20/17 03:00 07/20/17 02:59 Glucagon (Glucagon Inj) 1 mg UD PRN SQ 06/20/17 03:00 07/20/17 02:59 Albuterol Sulfate (Ventolin 0.083% 2.5MG/3ML Neb) 2.5 mg Q6R PRN INH 06/20/17 03:15 07/20/17 03:14 Piperacillin Sod/ Tazobactam Sod (Consult) 1 ea UD PRN N/A 06/20/17 03:30 07/20/17 03:29 Promethazine HCl 12.5 mg/Sodium Chloride 50.5 ml @ 204 mls/hr Q6H PRN IV 06/20/17 04:45 07/20/17 04:44 Piperacillin Sod/ Tazobactam Sod 4.5 gm/Dextrose 120 ml @ 30 mls/hr Q8H IV 06/20/17 10:00 06/30/17 09:59 06/22/17 02:10 30 MLS/HR Clopidogrel Bisulfate (plAVix TAB) 75 mg QAM PO 06/21/17 09:00 07/21/17 08:59 06/21/17 08:18 75 MG Miscellaneous Information (Consult Glycemic Management Pharmacy) 1 ea UD PRN N/A 06/21/17 13:15 07/21/17 13:14 Insulin Detemir (Levemir Flexpen/ FlexTouch) PLEASE SEE PROTOCOL TEXT BID SQ 06/21/17 21:00 07/21/17 20:59 06/21/17 21:44 25 UNITS Vancomycin HCl 1500 mg/Sodium Chloride 530 ml @ 200 mls/hr Q18H IV 06/22/17 12:00 06/30/17 17:59 Review of Systems Not obtainable because of patient's mental status Physical Exam Date Time Temp Pulse Resp B/P (MAP) Pulse Ox O2 Delivery O2 Flow Rate FiO2 06/22/17 08:00 Room Air 06/22/17 07:14 36.4 72 20 119/75 (90) 95 Room Air 06/22/17 04:00 Room Air 06/22/17 03:15 36.6 72 18 121/76 (91) 95 Room Air 06/22/17 00:00 Room Air 06/21/17 23:23 36.3 72 18 111/65 (80) 96 Room Air 06/21/17 21:35 77 115/70 (85) 06/21/17 20:00 94 Room Air 06/21/17 19:12 36.8 79 19 120/71 (87) 95 Room Air 06/21/17 16:00 94 Room Air 06/21/17 15:23 36.9 79 20 124/63 (83) 94 Room Air 06/21/17 12:00 Room Air 06/21/17 10:45 36.5 89 20 134/81 (98) 97 Room Air General Appearance: WD/WN, no apparent distress Head: normocephalic, atraumatic Eyes: normal inspection, EOMI, sclerae normal ENT: normal ENT inspection, pharynx normal Neck: supple, no adenopathy, thyroid normal, trachea midline Respiratory/Chest: chest non-tender, lungs clear, normal breath sounds, no respiratory distress Cardiovascular: regular rate, rhythm, no gallop, no murmur Abdomen/GI: normal bowel sounds, non tender, soft, no organomegaly Back: normal inspection, no CVA tenderness Extremities/Musculoskelatal: non-tender, + slow capillary refill, + pertinent finding (Left BKA with) Neurologic/Psych: alert, oriented x 3 Skin: normal color, no rash, + pertinent finding (Left 3rd finger has been debrided, no purulence, erythema of the finger) Lymphatic: no adenopathy Laboratory Results RUN DATE: 06/22/17 [facility] LAB PAGE 1 RUN TIME: 902 Specimen Inquiry PATIENT: LUZ CRUZ LOC: [place] U # : [id number] AGE/SX: 66/M ROOM: [facility] REG : 06/20/[address]: Kelsey Busby M.D. : 1950 BED: 1 DIS : STATUS: ADM IN TLOC: SPEC #: [id number] JONATHAN: 06/20/17 STATUS: RES REQ #: [id number] RECD: 06/20/[address]: Tyrone Nicolas DO SOURCE: DRAIN-DEEP ENTR: 06/20/[address]: Agustin Gaxioal M.D. SPDESC: LUCIAN, Kip De Souza M.D. ( MEDICINE) No Doctor, Assigned Alexandr Lane MD ORDERED: ELIAN GUTIÉRREZ CUL/ARCELIA COMMENTS: Has Specimen Been Obtained/Collected? Y Procedure Result Verified Site GRAM STAIN Final 06/21/17 RESULT NO WBCs SEEN FEW GRAM POSITIVE COCCI DEEP WOUND CULTURE Preliminary 06/22/17 Organism 1 ENTEROCOCCUS SPECIES QUANITY MANY SENS SENSITIVITY TO FOLLOW +MIXWOUND PLUS MODERATE COUNTS OF PROBABLE SKIN COMFORT Organism 2 STAPHYLOCOCCUS AUREUS QUANITY FEW SENS SENSITIVITY TO FOLLOW Organism 3 GRAM NEGATIVE BACILLI QUANITY FEW SENS SENSITIVITY TO FOLLOW END OF REPORT Last 24 Hours Test 06/21/17 11:04 06/21/17 16:12 06/21/17 19:56 06/22/17 04:43 Bedside Glucose 219 mg/dl 264 mg/dl 277 mg/dl White Blood Count 5.52 K/uL Red Blood Count 4.41 M/uL Hemoglobin 11.9 g/dL Hematocrit 35.1 % Mean Corpuscular Volume 79.6 fL Mean Corpuscular Hemoglobin 27.0 pg Mean Corpuscular Hemoglobin Concent 33.9 g/dl Platelet Count 237 K/uL Mean Platelet Volume 9.5 fL Neutrophils (%) (Auto) 65.7 % Lymphocytes (%) (Auto) 23.7 % Monocytes (%) (Auto) 5.6 % Eosinophils (%) (Auto) 3.8 % Basophils (%) (Auto) 0.7 % Neutrophils # (Auto) 3.62 K/uL Lymphocytes # (Auto) 1.31 K/uL Monocytes # (Auto) 0.31 K/uL Eosinophils # (Auto) 0.21 K/uL Basophils # (Auto) 0.04 K/uL RDW Standard Deviation 47.4 fL RDW Coefficient of Variation 16.6 % Immature Granulocyte % (Auto) 0.5 % Immature Granulocyte # (Auto) 0.03 K/uL Sodium Level 140 mmol/L Potassium Level 3.4 mmol/L Chloride Level 106 mmol/L Carbon Dioxide Level 27 mmol/L Anion Gap 7.0 mmol/L Blood Urea Nitrogen 26 mg/dl Creatinine 1.47 mg/dl Est Creatinine Clear Calc Drug Dose 62.5 ml/min Estimated GFR () 56.8 Estimated GFR (Non- 49.0 BUN/Creatinine Ratio 18.0 Random Glucose 144 mg/dl Calcium Level 8.5 mg/dl Vancomycin Level Trough 26.7 mcg/ml Test 06/22/17 06:49 Bedside Glucose 128 mg/dl Patient Name: LUZ CRUZ Unit Number: [id number] Dictated: 06/20/17646 Transcribed: 06/20/17646 LIDIA Printed Date/Time: [~ rep prt dt]/[~ rep prt tm] [~ rep ct labl] - [~ rep ct ivnm] [facility] [place] [place] [address] Dictated: 06/20/17646 Transcribed: 06/20/17646 Printed Date/Time: [~ rep prt dt]/[~ rep prt tm] [~ rep ct labl] - [~ rep ct ivnm] [~ rep ct add3]] CT OF THE HEAD WITHOUT CONTRAST CLINICAL HISTORY: Altered mental status. COMPARISON STUDY: Head CT January 19, 2017. CT DOSE: 614.27 mGy.cm TECHNIQUE: Helical axial images of the head were obtained without IV contrast. Automated exposure control was utilized for the study. A dose lowering technique was utilized adhering to the principles of ALARA. FINDINGS: No acute intracranial hemorrhage, midline shift or mass effect is present. A 1.7 cm hypodensity within the right caudate head and anterior limb of the right internal capsule is new since head CT of January 19, 2017. There is no significant mass effect. Ventricular system is stable. The basilar cisterns are patent. There are no extra-axial collections. There are no significant calvarial abnormalities. A suspected left frontal scalp lipoma is noted. IMPRESSION: 1.7 cm hypodensity within the right caudate head and anterior limb of the internal capsule which is new since head CT of January 19, 2017 and consistent with an acute to subacute infarct. No mass effect or hemorrhage. Electronically signed by: Ramesh Ham M.D. 06/20/2017 6:51 AM Dictated Date/Time: 06/20/2017 6:47 AM The status of this report is Signed. Draft = Not yet reviewed or approved by Radiologist. Signed = Reviewed and approved by Radiologist. <AttendingPhy>Agustin Gaxiola M.D.</AttendingPhy> <FamilyPhy>No Doctor, Assigned</FamilyPhy> <PrimaryPhy>No Doctor, Assigned</PrimaryPhy> <UnitNumber> [id number]</UnitNumber> <VisitNumber>[id number]</VisitNumber> <PatientName> LUZ CRUZ</PatientName> <DateOfBirth>1950</DateOfBirth> <Location> C.2E</Location> <ServiceDate>06/19/17</ServiceDate> <MNE>ESINDI</MNE> < OrderingPhy>Matias Ramos M.D.</OrderingPhy> <OrderingPhyMNE>f rep ord dr olivares</OrderingPhyMNE> <DictatingPhyMNE>f rep dict dr olivraes</DictatingPhyMNE> < CCListMNE>f rep ct marshall</CCListMNE> <AdmittingPhyMNE>f pt admit dr olivares</ AdmittingPhyMNE> <AttendingPhyMNE>f pt attend dr olivares</AttendingPhyMNE> <ConsultingPhyMNE>f pt consult dr olivares</ConsultingPhyMNE> <FamilyPhyMNE>f pt fam dr olivares</FamilyPhyMNE> <OtherPhyMNE>f pt other dr olivares</OtherPhyMNE> < PrimaryPhyMNE>f pt prim care dr olivares</PrimaryPhyMNE> <ReferringPhyMNE>f pt referring dr olivares</ReferringPhyMNE> Assessment & Plan 66-year-old male with necrotic right 3rd finger infection with osteomyelitis with sepsis and encephalopathy in the 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 Cultures growing Staph aureus, Enterococcus, and gram-negative bacilli. Pending final identification and sensitivities, vancomycin and Zosyn appropriate but need to follow renal function carefully. Will adjust once further information available. Will likely require further surgical intervention, would recommend orthopedic consultation. Will follow.
--- NOTE | 2017-06-22 10:55 | Clinical Documentation Query ---
CLINICAL DOCUMENTATION QUERY Dr. PECK, In your clinical opinion is this patient being managed for: ( x ) Sepsis, POA ( ) Not Agree ( ) Other explanation of clinical findings (Please Explain) ( ) Unable to determine (Please Define) ( ) Need to Discuss The medical record reflects the following clinical findings, treatment, and risk factors. Clinical Indicators: 66 yo male presenting with sudden lethargy. Diagnosed with CVA. Also with a R third finger infection with osteomyelitis per ID consult. H/P mentioned possible sepsis. ID consult also indicated sepsis however; subsequent attending progress notes do not indicate sepsis. Treatment: blood cultures, janeth fuentes, wound provider consult with excisional debridement, IV vancomycin, IV zosyn Risk Factors: finger infection, DM Please clarify and document your clinical opinion in the progress notes and discharge summary. Terms such as "probable", "suspected", "likely", "questionable", "possible", or "still to be ruled out" are acceptable. IF IN AGREEMENT, YOU MUST DOCUMENT ABOVE DIAGNOSTIC STATEMENT IN DAILY PROGRESS NOTES AND DISCHARGE SUMMARY. This document is not part of the patient's record. Thank You, Maritza Hayden, RAMON [phone]
--- NOTE | 2017-06-22 11:21 | Pharmacy Progress Note ---
Glycemic Control Progress Note Date of Service Jun 22, 2017. Scope Glycemic Pharmacist consulted for glycemic control to write orders per [facility] inpatient glycemic control protocol. Objective Accuchecks BSG (last 24hrs): Test 06/21/17 11:04 06/21/17 16:12 06/21/17 19:56 06/22/17 04:43 Bedside Glucose 219 mg/dl (70-99) 264 mg/dl (70-99) 277 mg/dl (70-99) Random Glucose 144 mg/dl (70-99) Test 06/22/17 06:49 Bedside Glucose 128 mg/dl (70-99) HbA1c: Test 06/20/17 05:20 Hemoglobin A1c 9.2 % (4.5-5.6) H Recent Pertinent Medications Outpatient Anti-diabetic Regimen: * Levemir 25 units BID plus Humulin R 3 units before breakfast and super; Glyburide 5 mg PO daily before breakfast The patient is currently receiving: * Basal insulin: Levemir 20 units X 1 in morning and then 15-25 units based upon blood sugar twice daily * Correctional Insulin: Novolog Correction per scale ACHS Goal Range: Low 110 mg/dL - High 140 mg/dL Correction Factor: 35 mg/dL/unit * Prandial insulin: Per carb ratio of 1 unit per 12 grams CHO consumed Risk Factors for Insulin Resistance: * Infection: infection on finger - treated with vancomycin and Zosyn * Recent Surgery: POD 2 for debridement * Diet: type 2 diabetic diet Outpatient Anti-Diabetic Meds see above Assessment & Plan ASSESSMENT: * ADA & AACE recommend a goal blood sugar range 140-180 mg/dl for the majority of critically ill & non-critically ill patients. However, more stringent targets may be selected in individual cases. Will utilize more stringent goal of 110-140mg/dl based on patient age & comorbidities. Additionally, tighter glycemic control is warranted to facilitate wound healing. * Mr Koroma is a 66 y/o M well known to the diabetes service who was admitted with encephalopathy. He also has a wound on his finger that required debridement. Patient has a PMH of CHF, amputations, and CAD with stents and ICD placement. * During the last admission, Mr Koroma's insulin requirements while hospitalized decreased dramatically from greater than 100 units of insulin per day to around 50 units per day. It appears that this admission may follow the most recent one. * Today's fasting blood sugar was 128 mg/dL which is within goal range for the patient. This is greatly reduced from yesterday which was 181 mg/dL. The patient received 45 units of Lantus yesterday and 18 units of Novolog (total of 63 units). The patient has a very basal heavy regimen. Will continue the same sliding scale Lantus with reduced doses available. * The patient's correctional insulin appears to have been sufficient for him for the goal range selected, but this goal range has now been reduced. It is appropriate to tighten the parameters today as the post-prandial blood sugars continued to rise yesterday. PLAN FOR INPATIENT GLYCEMIC CONTROL: * Holding outpatient oral diabetes medications * Basal insulin with LEVEMIR 15-25 units SQ BID (Levemir 15 units if blood sugar less than 120 mg/dL; Levemir 20 units if blood sugar 120-180 mg/dL; Levemir 25 units if blood sugar greater than 180 mg/dL) * Correctional Insulin with NOVOLOG per scale ACHS or Q6hrs while NPO * Goal Range: Low 110 mg/dL - High 140 mg/dL * Correction Factor: 20 mg/dL/unit * Nutritional / Prandial insulin per carb ratio of 1 unit per 6 grams CHO consumed DISCHARGE RECOMMENDATIONS * Patient's HbA1C goal is 7.6-8.0% per the Elements of Diabetes Care Scoring Scale .... the patient's HbA1C is currently above this goal. Recommend working with outpatient providers to titrate current regimen to appropriate blood sugar control. Thank you.
[2017-06-22] MEDS: VANCOMYCIN INJ 1,500 MG in SODIUM CHLORIDE 0.9% 500ML 500 ML IV SCH (12:04)
[2017-06-22] MEDS ORDERED: POTASSIUM CHLORIDE 10 MEQ TABCR PO ONE (12:30)
--- NOTE | 2017-06-22 12:30 | Cardiology Follow-Up ---
Subjective General Date of Service: Jun 22, 2017. Chief Complaint: follow up stroke,cardiomyopathy Pt evaluation today including: conversation w/ patient, physical exam History of Present Illness The patient is a 66 year old male seen in follow up. Mental status is improved. Denies palpitations. Telemetry reveals 8 beat run of NSVT on 06/22/17 at 3 am. Allergies Coded Allergies: Gemfibrozil (Verified Allergy, Unknown, 06/19/17) Social History Smoking Status: Never Smoker Hx Tobacco Use In Past Year?: No Hx Alcohol Use - Type And Amou: No Hx Substance Use - Type And Am: No Problem List Medical Problems: (1) Acute renal injury Status: Acute (2) Altered mental status Status: Acute (3) C. difficile diarrhea Status: Acute (4) Cellulitis of right hand Status: Acute (5) Dehydration Status: Acute (6) Diabetes Status: Acute (7) Hemothorax on right Status: Acute (8) Hyperglycemia Status: Acute (9) Hypoglycemia Status: Acute (10) Hypoglycemia Status: Acute (11) Hypothermia Status: Acute (12) Infection of finger Status: Acute (13) Multiple rib fractures Status: Acute (14) Necrotic wound of right hand Status: Acute (15) Pleural effusion, right Status: Acute (16) Right-sided chest pain Status: Acute (17) Septic shock Status: Acute (18) Severe sepsis Status: Acute (19) Stroke Status: Acute Physical Exam Vital Signs Last Vital Signs Documentation Date Time Temp Pulse Resp B/P (MAP) Pulse Ox O2 Delivery O2 Flow Rate FiO2 06/22/17 10:35 36.3 72 20 123/72 (89) 97 06/22/17 08:00 Room Air 06/20/17 12:00 2.0 Physical Exam Constitutional: Level of Distress: NAD Neck: supple Lungs: Auscultation: no wheezing, no rales/crackles, no rhonchi Cardiovascular: Heart Auscultation: RRR, no murmurs, no rubs Extremities: no edema Neurologic: Gait & Station: pertinent finding (mental status improved. no focal deficits ) Assessment and Plan Assessment and Plan Impression: 66-year-old male 1. 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 Compensated nonischemic cardiomyopathy, severe left ventricular systolic dysfunction 3. History of biventricular AICD 4. Nonsustained ventricular tachycardia, asymptomatic 5. Right fourth finger cellulitis, possibly recurrent staph infection Plan: Telemetry without AF. Continue current metoprolol dose for NSVT. Replace potassium. No AF on device check, continue ASA plus clopidogrel. Laboratory Results Last 24 Hours Test 06/21/17 16:12 06/21/17 19:56 06/22/17 04:43 06/22/17 06:49 Bedside Glucose 264 mg/dl 277 mg/dl 128 mg/dl White Blood Count 5.52 K/uL Red Blood Count 4.41 M/uL Hemoglobin 11.9 g/dL Hematocrit 35.1 % Mean Corpuscular Volume 79.6 fL Mean Corpuscular Hemoglobin 27.0 pg Mean Corpuscular Hemoglobin Concent 33.9 g/dl Platelet Count 237 K/uL Mean Platelet Volume 9.5 fL Neutrophils (%) (Auto) 65.7 % Lymphocytes (%) (Auto) 23.7 % Monocytes (%) (Auto) 5.6 % Eosinophils (%) (Auto) 3.8 % Basophils (%) (Auto) 0.7 % Neutrophils # (Auto) 3.62 K/uL Lymphocytes # (Auto) 1.31 K/uL Monocytes # (Auto) 0.31 K/uL Eosinophils # (Auto) 0.21 K/uL Basophils # (Auto) 0.04 K/uL RDW Standard Deviation 47.4 fL RDW Coefficient of Variation 16.6 % Immature Granulocyte % (Auto) 0.5 % Immature Granulocyte # (Auto) 0.03 K/uL Sodium Level 140 mmol/L Potassium Level 3.4 mmol/L Chloride Level 106 mmol/L Carbon Dioxide Level 27 mmol/L Anion Gap 7.0 mmol/L Blood Urea Nitrogen 26 mg/dl Creatinine 1.47 mg/dl Est Creatinine Clear Calc Drug Dose 62.5 ml/min Estimated GFR () 56.8 Estimated GFR (Non- 49.0 BUN/Creatinine Ratio 18.0 Random Glucose 144 mg/dl Calcium Level 8.5 mg/dl Vancomycin Level Trough 26.7 mcg/ml Test 06/22/17 11:11 Bedside Glucose 208 mg/dl
--- NOTE | 2017-06-22 13:23 | Pharmacy Progress Note ---
Pharmacy Abx Dose Short Note Date of Service Jun 22, 2017. Assessment & Plan Assessment * 66 year old male receiving VANCOMYCIN and ZOSYN IV for treatment of sepsis, osteomyelitis R 3rd finger * Bone cx and R hand ulcer cultures are growing MSSA and penicillin susceptible enterococcus faecalis as well as a GNR that is yet to be ID'd * Leukocytosis resolving, afebrile, VSS * Renal fxn may be worsening. SCr did increase by 40% yesterday and has not yet trended down. SCr 1.0 -->1.39-->1.47. Of note, he is receiving Furosemide PO and did put out 5.5L on 06/20 and 3.8L 06/21. No other nephrotoxins noted, no IV contrast, no hypotension noted this admission. Intravascular volume depletion? * Today is Day # 3 of antimicrobial therapy * May be able to deescalate ABX therapy soon, Zosyn should cover both MSSA and enterococcus growing thus far, but 3rd organism not yet ID'd in deep drainage cx. Plan Vancomycin * Has been receiving Vancomycin 1750 (14.6mg/kg) IV Q 12 hours * Trough level of 26.7 mcg/mL this AM is supratherapeutic. Level was drawn w/ 4th maintenance dose. Prior doses were hung on time and level was drawn at the appropriate time. * Change to 1500 mg (13.3mg/kg) IV every 18 hours * Goal trough level for osteomyelitis : 15 to 20 mcg/mL * Trough level ordered for: 06/24/17 (3rd dose of new regimen) Zosyn * eCrCl > 20cc/min; continue 4.5gm IV Q 8 hrs (extended-infusion) Pharmacy will continue to follow and will adjust dose/frequency as necessary. Thank you.
--- NOTE | 2017-06-22 15:52 | Progress Note ---
Internal Med Progress Note Date of Service: Jun 22, 2017. Provider Documentation: SUBJECTIVE: awake and alert offers no complain no pain or discomfort on Rt hand infected 3 rd finger speech fluent OBJECTIVE: Vital Signs-as noted below Exam: General-obese , no apparent distress Eyes-sclera non icteric , PERRLA/EOMI ENT-NAD Neck-No thyromegaly Lungs-no rales or wheeze Heart-regular Abdomen-soft, non tender Extremities-amputation of multiple digits on both hand , infected rt 3rd finger , wound bed appears to dry , no active bleeding or drainage noted, s/p left bka Neuro-no focal deficit Lab data as noted below. ASSESSMENT & PLAN: ACUTE CVA presented with confusion /altered mental status /encephalopathy in setting of sepsis /necrotic rt 3rd finger wound /sub acute CVA CT head showed 1.7 cm hypodensity within the right caudate head and anterior limb of the internal capsule consistent with an acute to subacute infarct. Was not a candidate for tPA- No focal neuro deficits on exam; mental status gradually improving Unable to get MRI Brain, MRA Head/Neck due to ICD no evidence of Afib noted in Tele and AICD interrogation Neurology consulted-appreciate input Carotid duplex performed 06/20/17: 50-69% stenosis in the left internal carotid artery Continue aspirin, Lipitor and Plavix SEPSIS DUE TO INFECTED RT 3RD FINGER WOUND necrotic right 3rd finger infection with osteomyelitis wound culture : staph aureus /enterococcus /gram negative bacilli appreciate input form wound care S/P debridement by Wound team Dr. Nicolas Continue IV Vanco and Zosyn ID eval requested appreciate input Pending final identification and sensitivities recommends to continue with vancomycin and Zosyn need to follow renal function carefully while on Abx given the severely of infection and possible osteomyelitis Will likely require further surgical intervention orthopedic consulted DM II: poorly controlled Diabetic Neuropathy/Vasculopathy /non healing wound Will hold oral diabetic meds Last A1c: 9.2 on 06/20/17 ISS, basal Insulin Continue monitor BS Ischemic cardiomyopathy Last EF: 20% S/P ICD placement No signs of fluid overload stable CARDIAC ARRHYTHMIA : non sustained v tach noted in tele pt did not had any symptoms appreciate input form cardiology no evidence of paroxysmal afib in prior AICD interrogation-no indication for Coumadin anticoagulation pt will continue with Aspirin and Plavix brief episode of ventricular arrhythmia could due to acute illness in setting of severe cardiomyopathy cont on Beta rosa Corrected low K , follow Mg level K level needs to > 4 to prevent ventricular arrhythmia repeat BMP at 1600 monitor in tele CAD S/P Stent in 2014: Continue ASA, statins, BB CKD III: Cr stable Monitor renal function Hypothyroidism: continue levothyroxine TSH wnl Stable Depression/anxiety: continue Zoloft DVT Px: Heparin SQ Code Status Full Code Consultants: Neuro DISPOSITION expected to be discharged home when medically stable lives with his PT/OT eval prior to discharge Vital Signs: Date Time Temp Pulse Resp B/P (MAP) Pulse Ox O2 Delivery O2 Flow Rate FiO2 06/22/17 15:38 36.6 63 20 115/68 (84) 98 Room Air 06/22/17 12:00 Room Air 06/22/17 10:35 36.3 72 20 123/72 (89) 97 06/22/17 08:00 Room Air 06/22/17 07:14 36.4 72 20 119/75 (90) 95 Room Air 06/22/17 04:00 Room Air 06/22/17 03:15 36.6 72 18 121/76 (91) 95 Room Air 06/22/17 00:00 Room Air 06/21/17 23:23 36.3 72 18 111/65 (80) 96 Room Air 06/21/17 21:35 77 115/70 (85) 06/21/17 20:00 94 Room Air 06/21/17 19:12 36.8 79 19 120/71 (87) 95 Room Air 06/21/17 16:00 94 Room Air Lab Results: Results Past 24 Hours Test 06/21/17 16:12 06/21/17 19:56 06/22/17 04:43 06/22/17 06:49 Range/Units Bedside Glucose 264 277 128 70-99 mg/dl White Blood Count 5.52 4.8-10.8 K/uL Red Blood Count 4.41 4.7-6.1 M/uL Hemoglobin 11.9 14.0-18.0 g/dL Hematocrit 35.1 42-52 % Mean Corpuscular Volume 79.6 80-100 fL Mean Corpuscular Hemoglobin 27.0 25-34 pg Mean Corpuscular Hemoglobin Concent 33.9 32-36 g/dl Platelet Count 237 130-400 K/uL Mean Platelet Volume 9.5 7.4-10.4 fL Neutrophils (%) (Auto) 65.7 % Lymphocytes (%) (Auto) 23.7 % Monocytes (%) (Auto) 5.6 % Eosinophils (%) (Auto) 3.8 % Basophils (%) (Auto) 0.7 % Neutrophils # (Auto) 3.62 1.4-6.5 K/uL Lymphocytes # (Auto) 1.31 1.2-3.4 K/uL Monocytes # (Auto) 0.31 0.11-0.59 K/uL Eosinophils # (Auto) 0.21 0-0.5 K/uL Basophils # (Auto) 0.04 0-0.2 K/uL RDW Standard Deviation 47.4 36.4-46.3 fL RDW Coefficient of Variation 16.6 11.5-14.5 % Immature Granulocyte % (Auto) 0.5 % Immature Granulocyte # (Auto) 0.03 0.00-0.02 K/uL Sodium Level 140 136-145 mmol/L Potassium Level 3.4 3.5-5.1 mmol/L Chloride Level 106 98-107 mmol/L Carbon Dioxide Level 27 21-32 mmol/L Anion Gap 7.0 3-11 mmol/L Blood Urea Nitrogen 26 7-18 mg/dl Creatinine 1.47 0.60-1.40 mg/dl Est Creatinine Clear Calc Drug Dose 62.5 ml/min Estimated GFR () 56.8 Estimated GFR (Non- 49.0 BUN/Creatinine Ratio 18.0 10-20 Random Glucose 144 70-99 mg/dl Calcium Level 8.5 8.5-10.1 mg/dl Vancomycin Level Trough 26.7 SEE COMMENT mcg/ml Test 06/22/17 11:11 Range/Units Bedside Glucose 208 70-99 mg/dl
[2017-06-22 16:34] LABS: POTASSIUM 3.6 mmol/L (3.5-5.1)
[2017-06-22 16:36] LABS: MAGNESIUM 2.2 mg/dl (1.8-2.4)
[2017-06-23] VITALS (9 sets, daily range): BP systolic 101–139; BP diastolic 62–83; PULSE 62–66; TEMP 36.4–36.5; O2SAT 93–98
[2017-06-23] MEDS ORDERED: INSULIN ASPART 100 UNITS/ML 3 ML PEN SC SCH (02:00)
[2017-06-23] MEDS: PIPERACILL/TAZOBAC IV 4.5 GM in DEXTROSE 5% 100ML IV SCH ×3 (02:11→17:36)
[2017-06-23] MEDS: VANCOMYCIN INJ 1,500 MG in SODIUM CHLORIDE 0.9% 500ML 500 ML IV SCH (05:53)
[2017-06-23] MEDS: HEPARIN SOD 5000 UNIT/0.5 ML CARP SQ SCH ×2 (05:54→14:09)
[2017-06-23] MEDS: LEVOTHYROXINE 50 MCG TAB PO SCH (05:54)
[2017-06-23 06:38] LABS: BUN/CREATININE RATIO 17.9 (10-20); CALCIUM 9.4 mg/dl (8.5-10.1); CREATININE 1.59 mg/dl (0.60-1.40); MAGNESIUM 2.2 mg/dl (1.8-2.4); POTASSIUM 3.7 mmol/L (3.5-5.1)
[2017-06-23] MEDS: ALLOPURINOL 300 MG TAB PO SCH (08:17)
[2017-06-23] MEDS: ATORVASTATIN 40 MG TAB PO SCH (08:17)
[2017-06-23] MEDS: METOPROLOL SUCC 25MG EXT REL TAB PO SCH ×2 (08:17→20:58)
[2017-06-23] MEDS: ISOSORBIDE MONONITRATE 30 MG TABCR PO SCH (08:17)
[2017-06-23] MEDS: CLOPIDOGREL BISULFATE 75 MG TAB PO SCH (08:17)
[2017-06-23] MEDS: SERTRALINE HCL 100 MG TAB PO SCH (08:17)
[2017-06-23] MEDS: ASPIRIN 81 MG ECTAB PO SCH (08:17)
[2017-06-23] MEDS: INSULIN ASPART 100 UNITS/ML 3 ML PEN SC SCH ×4 (08:22→20:53)
[2017-06-23] MEDS: INSULIN DETEMIR FLEXPEN/FLEX TOUCH 100 UNITS/ML 3ML SQ SCH ×2 (08:23→20:56)
[2017-06-23] MEDS: POTASSIUM CHLORIDE 20 MEQ TABCR PO SCH (09:34)
--- NOTE | 2017-06-23 12:57 | Pharmacy Progress Note ---
Glycemic Control Progress Note Date of Service Jun 23, 2017. Scope Glycemic Pharmacist consulted for glycemic control to write orders per [facility] inpatient glycemic control protocol. Objective Accuchecks BSG (last 24hrs): Test 06/22/17 16:03 06/22/17 20:19 06/23/17 02:04 06/23/17 05:52 Bedside Glucose 230 mg/dl (70-99) 287 mg/dl (70-99) 125 mg/dl (70-99) Random Glucose 100 mg/dl (70-99) Test 06/23/17 06:04 06/23/17 10:55 Bedside Glucose 122 mg/dl (70-99) 173 mg/dl (70-99) HbA1c: Test 06/20/17 05:20 Hemoglobin A1c 9.2 % (4.5-5.6) H Recent Pertinent Medications The patient is currently receiving: * Basal insulin: Lantus 20-25 units every 12 hours * Correctional Insulin: Novolog Correction per scale ACHS Goal Range: Low 110 mg/dL - High 140 mg/dL Correction Factor: 20 mg/dL/unit * Prandial insulin: Per carb ratio of 1 unit per 7 grams CHO consumed Outpatient Anti-Diabetic Meds Levemir 25 units BID plus Humulin R 3 units before breakfast and super; Glyburide 5 mg PO daily before breakfast Assessment & Plan ASSESSMENT: * 66 yo M on basal bolus insulin regimen for hyperglycemia secondary to baseline DM (outpatient regimen on hold), stress/infection, recent surgery * BSGs ranging 128 - 287 mg/dl over the past 24hrs * Changes needed to insulin regimen: * AM Fasting BSG = 122 mg/dl. This is within goal range for patient based on inpatient targets and co-morbidities. Continue current orders. * Post-prandial BSGs are elevated/BSGs rise throughout the day therefore need to tighten CF/CR. PLAN FOR INPATIENT GLYCEMIC CONTROL: * Oral Agents * Continue to hold outpatient oral diabetes medications. * Basal insulin * Levemir 20-25 units SQ BID * Bolus insulin * NovoLog per scale ACHS or Q6hrs while NPO * Goal Range: Low 110 mg/dL - High 140 mg/dL * Correction Factor: 10 mg/dL/unit * Nutritional / Prandial insulin per carb ratio of 1 unit per 4 grams CHO consumed * Please note that the plan above was derived based on current level of insulin resistance and hospital stress. These recommendations are appropriate for inpatient admission only. Plan of care upon discharge will need to be reassessed to avoid potential outpatient hypo/hyperglycemia. Thank you.
--- NOTE | 2017-06-23 13:34 | Clinical Documentation Query ---
CLINICAL DOCUMENTATION QUERY Dr. PECK, In your clinical opinion is this patient being managed for: (x ) Acute kidney failure ( ) Not Agree ( ) Other explanation of clinical findings (Please Explain) ( ) Unable to determine (Please Define) ( ) Need to Discuss The medical record reflects the following clinical findings, treatment, and risk factors. Clinical Indicators:66 yo male presenting with BUN 24, Cr 1.0 which has trended up to Cr 1.59 Treatment:monitor PRP's, I/O Risk Factors: chronic systolic CHF, DM, CAD, CKD, HTN, CVA Please clarify and document your clinical opinion in the progress notes and discharge summary. Terms such as "probable", "suspected", "likely", "questionable", "possible", or "still to be ruled out" are acceptable. IF IN AGREEMENT, YOU MUST DOCUMENT ABOVE DIAGNOSTIC STATEMENT IN DAILY PROGRESS NOTES AND DISCHARGE SUMMARY. This document is not part of the patient's record. Thank You, Maritza Hayden, RN [phone]
--- NOTE | 2017-06-23 17:05 | Progress Note ---
Progress Note Date of Service Jun 23, 2017. Progress Note ATTENDING NOTE : d/W ORTHO -pt is scheduled for Rt 3rd finger amputation tomorrow pt is moderate risk -given type 2 DM , morbid obesity , multiple co - morbidities risk for cardio pulmonary complication < 5% for hand surgery should proceed for the surgery , no further work up needed pt already had updated ECHO this admission /Cardiology following Hold Aspirin/Plavix /sub q heparin ordered for NPO past midnight Beta rosa -Metoprolol should be given with sips of water prior to surgery pt will remain on tele and will need Tele monitoring post op Anesthesiology consult placed for pre op eval
--- NOTE | 2017-06-23 18:09 | Progress Note ---
Internal Med Progress Note Date of Service: Jun 23, 2017. 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 ASSESSMENT & PLAN: ACUTE CVA presented with confusion /altered mental status /encephalopathy in setting of sepsis /necrotic rt 3rd finger wound /sub acute CVA CT head showed 1.7 cm hypodensity within the right caudate head and anterior limb of the internal capsule consistent with an acute to subacute infarct. Was not a candidate for tPA- No focal neuro deficits on exam; mental status gradually improving Unable to get MRI Brain, MRA Head/Neck due to ICD no evidence of Afib noted in Tele and AICD interrogation Neurology consulted-appreciate input Carotid duplex performed 06/20/17: 50-69% stenosis in the left internal carotid artery Continue aspirin, Lipitor and Plavix SEPSIS DUE TO INFECTED RT 3RD FINGER WOUND necrotic right 3rd finger infection with osteomyelitis wound culture : staph aureus /enterococcus /gram negative bacilli appreciate input form wound care S/P debridement by Wound team Dr. Nicolas Continue IV Vanco and Zosyn ID eval requested appreciate input Pending final identification and sensitivities recommends to continue with vancomycin and Zosyn need to follow renal function carefully while on Abx given the severely of infection and possible osteomyelitis Will likely require further surgical intervention orthopedic consulted -scheduled for rt 3rd finger amputation tomorrow ordered for NPO past midnight hold sub q heparin , Aspirin and Plavix DM II: poorly controlled Diabetic Neuropathy/Vasculopathy /non healing wound Will hold oral diabetic meds Last A1c: 9.2 on 06/20/17 ISS, basal Insulin Continue monitor BS Ischemic cardiomyopathy Last EF: 20% S/P ICD placement No signs of fluid overload stable CARDIAC ARRHYTHMIA : non sustained v tach noted in tele pt did not had any symptoms appreciate input form cardiology no evidence of paroxysmal afib in prior AICD interrogation-no indication for Coumadin anticoagulation hold Aspirin and Plavix for surgery tomorrow brief episode of ventricular arrhythmia could due to acute illness in setting of severe cardiomyopathy cont on Beta rosa Corrected low K , follow Mg level K level needs to > 4 to prevent ventricular arrhythmia CAD S/P Stent in 2014: hold ASA for surgery cont , statins, BB CKD III: Cr stable Monitor renal function Hypothyroidism: continue levothyroxine TSH wnl Stable Depression/anxiety: continue Zoloft DVT Px: hold Heparin SQ for surgery can be resumed after surgery Code Status Full Code Consultants: Neuro DISPOSITION expected to be discharged home when medically stable lives with his PT/OT eval prior to discharge Vital Signs: Date Time Temp Pulse Resp B/P (MAP) Pulse Ox O2 Delivery O2 Flow Rate FiO2 06/24/17 16:00 96 Room Air 06/24/17 15:49 36.3 64 18 122/69 (86) 96 Room Air 06/24/17 13:45 61 16 127/66 (86) 95 Room Air 06/24/17 12:45 65 16 132/68 (89) 97 Room Air 06/24/17 12:15 68 16 140/75 (96) 95 Room Air 06/24/17 12:00 Room Air 06/24/17 11:45 36.4 75 16 133/76 (95) 95 Room Air 06/24/17 11:30 36.2 57 14 125/77 97 Room Air 06/24/17 11:20 55 12 125/90 97 Room Air 06/24/17 11:11 36.3 61 14 122/73 96 Room Air 06/24/17 09:28 36.5 64 18 135/86 94 Room Air 06/24/17 08:00 Room Air 06/24/17 07:54 36.5 64 18 135/86 (102) 94 Room Air 06/24/17 04:00 Room Air 06/24/17 03:49 36.6 63 18 118/72 (87) 95 Room Air 06/24/17 00:08 36.4 65 18 120/69 (86) 96 Room Air 06/23/17 23:59 Room Air 06/23/17 20:59 62 120/76 (91) 06/23/17 20:00 97 Room Air 06/23/17 18:51 36.5 66 20 101/62 (75) 98 Room Air Lab Results: Results Past 24 Hours Test 06/23/17 20:09 06/23/17 23:34 06/24/17 05:27 06/24/17 07:03 Range/Units Bedside Glucose 137 74 70-99 mg/dl Vancomycin Level Trough 25.8 SEE COMMENT mcg/ml Sodium Level 140 136-145 mmol/L Potassium Level 3.8 3.5-5.1 mmol/L Chloride Level 105 98-107 mmol/L Carbon Dioxide Level 30 21-32 mmol/L Anion Gap 5.0 3-11 mmol/L Blood Urea Nitrogen 34 7-18 mg/dl Creatinine 1.59 0.60-1.40 mg/dl Est Creatinine Clear Calc Drug Dose 57.5 ml/min Estimated GFR () 51.7 Estimated GFR (Non- 44.6 BUN/Creatinine Ratio 21.3 06-23 Random Glucose 64 70-99 mg/dl Calcium Level 9.1 8.5-10.1 mg/dl Magnesium Level 2.4 1.8-2.4 mg/dl Test 06/24/17 11:33 06/24/17 16:24 Range/Units Bedside Glucose 103 131 70-99 mg/dl Microbiology Results 06/24/17 Gram Stain, Received Pending 06/24/17 Bacterial Culture, Received Pending
--- NOTE | 2017-06-23 18:21 | ORTHOPEDIC CONSULTATION ---
DATE OF CONSULTATION: 06/23/2017 HISTORY OF PRESENT ILLNESS: A 66-year-old male, who was admitted with probable acute stroke. He is a vasculopath with multiple finger amputations in the past. Hence, 2 on his fingertips. He had some recent partial amputation of his ring finger on his right hand by Dr. Henriquez in the recent past, but this has gone on to become infected now and has osteomyelitis clinically and some mild cellulitis proximal to the open wound. He has multiple medical problems including adjustment disorder, biventricular ICD, CAD, CHF, diabetic retinopathy, diabetes type 2, dyslipidemia, gout, hypertension, hypothyroidism, neuropathy, and peripheral vascular disease. PAST SURGICAL HISTORY: He has had multiple amputations; defibrillator; BKA, left; and coronary artery stent. SOCIAL HISTORY: He is disabled and nonsmoker. REVIEW OF SYSTEMS: MRSA. MEDICATIONS: He is on multiple medications. List was reviewed as per HPI. PHYSICAL EXAMINATION: His pertinent physical exam demonstrates that in his left hand, he has no open lesions. He has partially amputated thumb and on his index finger, which has a flexion contracture and all other fingers are amputated. In his right hand, he has open wound at the tip of the ring finger, partial amputation of the distal phalanx with some pus with open subcutaneous tissues and some mild erythema proximal to it. No lymphangitis proximally. The finger is intact and his thumb is partially amputated. Wrist fingers were amputated. ASSESSMENT: Osteomyelitis, ring finger, distal phalanx. PLAN: Plan would be revision amputation per Dr. Henriquez when he is available to perform the procedure.
[2017-06-23] MEDS ORDERED: VANCOMYCIN TROUGH ONE (23:30)
[2017-06-24] VITALS (12 sets, daily range): BP systolic 113–140; BP diastolic 60–97; PULSE 61–75; TEMP 36.3–36.7; O2SAT 94–99
[2017-06-24] MEDS: VANCOMYCIN INJ 1,500 MG in SODIUM CHLORIDE 0.9% 500ML 500 ML IV SCH (00:17)
[2017-06-24] MEDS: PIPERACILL/TAZOBAC IV 4.5 GM in DEXTROSE 5% 100ML IV SCH ×3 (02:24→17:32)
[2017-06-24] MEDS: LEVOTHYROXINE 50 MCG TAB PO SCH (05:39)
[2017-06-24 06:43] LABS: BUN/CREATININE RATIO 21.3 (10-20); CALCIUM 9.1 mg/dl (8.5-10.1); CREATININE 1.59 mg/dl (0.60-1.40); MAGNESIUM 2.4 mg/dl (1.8-2.4); POTASSIUM 3.8 mmol/L (3.5-5.1)
[2017-06-24] MEDS: INSULIN ASPART 100 UNITS/ML 3 ML PEN SC SCH ×4 (07:00→21:00)
[2017-06-24] MEDS: ALLOPURINOL 300 MG TAB PO SCH (07:54)
[2017-06-24] MEDS: ATORVASTATIN 40 MG TAB PO SCH (07:55)
[2017-06-24] MEDS: ISOSORBIDE MONONITRATE 30 MG TABCR PO SCH (07:56)
[2017-06-24] MEDS: POTASSIUM CHLORIDE 20 MEQ TABCR PO SCH (07:57)
[2017-06-24] MEDS: SERTRALINE HCL 100 MG TAB PO SCH (07:57)
[2017-06-24] MEDS: METOPROLOL SUCC 25MG EXT REL TAB PO SCH ×2 (07:57→21:08)
[2017-06-24] MEDS ORDERED: INSULIN DETEMIR FLEXPEN/FLEX TOUCH 100 UNITS/ML 3ML SQ SCH (09:00)
--- NOTE | 2017-06-24 09:59 | History & Physical Bridge Note ---
H&P Re-Evaluation Bridge Note: I have examined the patient, reviewed the History & Physical and in the interval since the performance of the History & Physical I have noted the following changes of clinical significance: No changes noted I saw the patient in the preoperative holding area. We discussed risks benefits reasonable outcomes and expectations. We discussed options of the right ring finger amputation at PIP versus MP level. We mutually agree that amputation of the right ring finger at the MP level with disarticulation would give him his best chance for healing risks and benefits have been discussed including but not limited to infection stiffness loss of motion failure to improve etc. is agreeable wishes to proceed.
[2017-06-24] MEDS ORDERED: BACITRACIN 50000 UNIT VIAL ONE (10:00)
[2017-06-24] MEDS ORDERED: MIDAZOLAM HCL 1 MG/ML 2ML VIAL ONE (10:05)
[2017-06-24] MEDS ORDERED: KETAMINE HCL INJ 50 MG/ML 10 ML VIAL ONE (10:05)
[2017-06-24] MEDS ORDERED: SODIUM CHLORIDE 0.9% INJ 10 ML VIAL ONE (10:06)
[2017-06-24] MEDS ORDERED: LIDOCAINE HCL 2% LOCAL 50ML VIAL ONE (10:07)
[2017-06-24] MEDS ORDERED: BUPIVACAINE 0.5 % 5 MG/1 ML MPF 30ML VIAL ONE (10:07)
[2017-06-24] MEDS ORDERED: ATROPINE SULFATE 0.1 MG/ML 5ML SYR IV PRN (11:00)
[2017-06-24] MEDS ORDERED: EpHEDrine SULFATE INJ 50 MG/ML AMP IV PRN (11:00)
--- NOTE | 2017-06-24 11:09 | [facility] Post Operative Brief Note ---
Immediate Operative Summary Operative Date Jun 24, 2017. Pre-Operative Diagnosis right ring finger osteomyelitis and chronic infection Post-Operative Diagnosis same Procedure(s) Performed right ring finger amputation Surgeon love Director Of User Experience Surgeon(s) no Estimated Blood Loss 10 ml Findings gross infection at tip of finger, amputation site showed adequate circulation. Cultures were taken at the tip of the finger. Specimens Cultures Drains none Anesthesia digital block with sedation Complication(s) None Disposition Recovery Room / PACU
--- NOTE | 2017-06-24 11:16 | OPERATIVE REPORT ---
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 POSTOPERATIVE DIAGNOSIS: Same. PROCEDURE: Right ring finger amputation at the MP joint. SURGEON: Dr. Henriquez. INTRAVENOUS THERAPY NURSE: None. ANESTHESIA: Digital block with sedation. INDICATIONS: This is a 66-year-old gentleman who has progressive open wound at the tip of the finger. He presents to the hospital with sepsis as well as possible stroke. He presents with nonhealing wound. I saw him in the preoperative holding area. We discussed risks, benefits, reasonable outcomes and options of treatment. We have mutually agreed to plan for amputation at the MP joint level of the ring finger. I am concerned that any more distal level of amputation may not heal given his difficulty with healing wounds previously. The risks and benefits have been discussed including, but not limited to, risk of infection, nerve injury, stiffness, loss of motion, failure to improve, etc. The patient is agreeable and wishes to proceed. DESCRIPTION OF OPERATION: I injected a mixture of lidocaine and Marcaine in the local area at the base of the finger to perform a digital block for pain control. I made an elliptical fish mouth incision over the MP joint of the ring finger. Dissection was carried down through the skin and subcutaneous tissues. The flexor tendons were transected and allowed to retract proximally. The extensor tendon was retracted and identified the MP joint. This was then disarticulated and the finger was passed off the table. I sent cultures from the tip of the finger. Tourniquet was let down, hemostasis was obtained with bipolar electrocautery. I do not see evidence of infection in the local area and there was adequate bleeding in the area. The skin was then trimmed to fit and skin was closed with ana, completing MP joint disarticulation of the right ring finger. The patient placed in a soft dressing and sent to PACU in stable condition. I attest to the content of the Intraoperative Record and any orders documented therein. Any exception s are noted below.
--- NOTE | 2017-06-24 11:23 | Anesthesiology Progress Note ---
Anesthesia Post Op Note Date & Time Jun 24, 2017 at 11:23 Vital Signs Pain Intensity: 0 Vital Signs Past 12 Hours Date Time Temp Pulse Resp B/P (MAP) Pulse Ox O2 Delivery O2 Flow Rate FiO2 06/24/17 11:20 55 12 125/90 97 Room Air 06/24/17 11:11 36.3 61 14 122/73 96 Room Air 06/24/17 09:28 36.5 64 18 135/86 94 Room Air 06/24/17 08:00 Room Air 06/24/17 07:54 36.5 64 18 135/86 (102) 94 Room Air 06/24/17 04:00 Room Air 06/24/17 03:49 36.6 63 18 118/72 (87) 95 Room Air 06/24/17 00:08 36.4 65 18 120/69 (86) 96 Room Air 06/23/17 23:59 Room Air Notes Mental Status: alert / awake / arousable, participated in evaluation Pt Amnestic to Procedure: Yes Nausea / Vomiting: adequately controlled Pain: adequately controlled Airway Patency, RR, SpO2: stable & adequate BP & HR: stable & adequate Hydration State: stable & adequate Anesthetic Complications: no major complications apparent
--- NOTE | 2017-06-24 14:37 | Pharmacy Progress Note ---
Glycemic Control Progress Note Date of Service Jun 24, 2017. Scope Glycemic Pharmacist consulted for glycemic control to write orders per [facility] inpatient glycemic control protocol. Objective Accuchecks BSG (last 24hrs): Test 06/23/17 15:52 06/23/17 20:09 06/24/17 05:27 06/24/17 07:03 Bedside Glucose 111 mg/dl (70-99) 137 mg/dl (70-99) 74 mg/dl (70-99) Random Glucose 64 mg/dl (70-99) Test 06/24/17 11:33 Bedside Glucose 103 mg/dl (70-99) HbA1c: Test 06/20/17 05:20 Hemoglobin A1c 9.2 % (4.5-5.6) H Recent Pertinent Medications The patient is currently receiving: * Basal insulin: Lantus 20-25 units every 12 hours * Correctional Insulin: Novolog Correction per scale ACHS Goal Range: Low 110 mg/dL - High 140 mg/dL Correction Factor: 10 mg/dL/unit * Prandial insulin: Per carb ratio of 1 unit per 4 grams CHO consumed Outpatient Anti-Diabetic Meds Levemir 25 units BID plus Humulin R 3 units before breakfast and super; Glyburide 5 mg PO daily before breakfast Assessment & Plan ASSESSMENT: * 66 yo M on basal bolus insulin regimen for hyperglycemia secondary to baseline DM (outpatient regimen on hold), stress/infection, recent surgery * BSGs greatly improved over the past 24 hours, ranging from 65 - 173 mg/dl; patient received 84 units of insulin. * Patient was made NPO overnight for finger I&D + amputation * Changes needed to insulin regimen: * AM Fasting BSG = 65 mg/dl. Patient was given glucose tabs and BSG came up to 74 mg/dL.This is below goal range for patient based on inpatient targets and co- morbidities. I suspect this was due to NPO status. I instructed RN to give partial dose of 8 units this morning. Will resume Lantus scale now that diet has been resumed. * Post-prandial BSGs are at goal. No change to CF/CR today. PLAN FOR INPATIENT GLYCEMIC CONTROL: * Oral Agents * Continue to hold outpatient oral diabetes medications. * Basal insulin * Levemir 15-25 units SQ BID * 15 units if < 120, 20 units if 120-180, 25 units if > 180 * Bolus insulin * NovoLog per scale ACHS or Q6hrs while NPO * Goal Range: Low 110 mg/dL - High 140 mg/dL * Correction Factor: 10 mg/dL/unit * Nutritional / Prandial insulin per carb ratio of 1 unit per 4 grams CHO consumed * Please note that the plan above was derived based on current level of insulin resistance and hospital stress. These recommendations are appropriate for inpatient admission only. Plan of care upon discharge will need to be reassessed to avoid potential outpatient hypo/hyperglycemia. Thank you.
--- NOTE | 2017-06-24 15:16 | Pharmacy Progress Note ---
Pharmacy Abx Dose Short Note Date of Service Jun 24, 2017. Assessment & Plan Item Value Date Time Vancomycin Level Trough 25.8 mcg/ml 06/23/17 2334 Creatinine 1.59 mg/dl H 06/24/17526 Est Creatinine Clear Calc Drug Dose 57.5 ml/min 06/24/17526 Gram Stain Received 06/24/17 0000 Drainage-Deep Finger , Right 3rd Pending Assessment: 66 year old male receiving VANC-IV for treatment of SSTI 3rd finger r/o osteo/ sepsis. Day # 5 of VANC/ZOSYN therapy. Plan: Vancomycin * Pt receiving VANC 1500mg (~13mg/kg) IV q 18 hours. This was a decrease in dose & extension of interval from previous SUPRA-therpaeutic Vanc level on 06/22 (26.7mcg/mL) on VANC 1750mg (~15mg/kg) IV every 12 hours. * Trough level is still SUPRA-THERAPEUTIC. * Vanc infusion put on hold by pharmacy 06/24/17 @0130, pt received ~ 1/2 of ordered dose * Reassess Vanc Random 06/25-am labs Zosyn: Continue 4.5 grams IV CI q 8 hours for est GFR> 20mL/min. Pharmacy will continue to follow and will adjust dose/frequency as necessary. Thank you.
--- NOTE | 2017-06-24 17:55 | Progress Note ---
Internal Med Progress Note Date of Service: Jun 24, 2017. Provider Documentation: SUBJECTIVE: s/p rt middle finger amputation today no complain of pain no fever or chills pt denies of any SOB or chest discomfort OBJECTIVE: Vital Signs-as noted below Exam: General-obese , no apparent distress Eyes-sclera non icteric , PERRLA/EOMI ENT-NAD Neck-No thyromegaly Lungs-no rales or wheeze Heart-regular Abdomen-soft, non tender Extremities-amputation of multiple digits on both hand , s/p amputation of rt 3 rd finger -rt hand remains in bandage , no active bleeding noted , s/p left bka Neuro-no focal deficit , AAO x 3, conversing appropriately Lab data as noted below. ASSESSMENT & PLAN: ACUTE CVA presented with confusion /altered mental status /encephalopathy in setting of sepsis /necrotic rt 3rd finger wound /sub acute CVA CT head showed 1.7 cm hypodensity within the right caudate head and anterior limb of the internal capsule consistent with an acute to subacute infarct. Was not a candidate for tPA- No focal neuro deficits on exam; mental status improved to baseline awake and alert , conversing appropriately Unable to get MRI Brain, MRA Head/Neck due to ICD no evidence of Afib noted in Tele and AICD interrogation Neurology consulted-appreciate input Carotid duplex performed 06/20/17: 50-69% stenosis in the left internal carotid artery Continue aspirin, Lipitor and Plavix SEPSIS DUE TO INFECTED RT 3RD FINGER WOUND necrotic right 3rd finger infection with osteomyelitis wound culture : staph aureus MSSA /enterococcus /Morganella /Prevotella sensitive to Vancomycin /Zosyn appreciate input form wound care S/P debridement by Wound team Dr. Fidencio malik requested appreciate input orthopedic consulted -s/p rt 3rd finger amputation will D/w ID for possible transition to oral Antibiotic or role for continued antibiotic tx post amputation DM II: poorly controlled Diabetic Neuropathy/Vasculopathy /non healing wound Last A1c: 9.2 on 06/20/17 ISS, basal Insulin Continue monitor BS Ischemic cardiomyopathy Last EF: 20% S/P ICD placement No signs of fluid overload stable CARDIAC ARRHYTHMIA : non sustained v tach noted in tele pt did not had any symptoms appreciate input form cardiology no evidence of paroxysmal afib in prior AICD interrogation-no indication for Coumadin anticoagulation on Aspirin and Plavix brief episode of ventricular arrhythmia could due to acute illness in setting of severe cardiomyopathy cont on Beta rosa Corrected low K , follow Mg level K level needs to > 4 to prevent ventricular arrhythmia CAD S/P Stent in 2014: on ASA cont , statins, BB CKD III: Cr stable Monitor renal function Hypothyroidism: continue levothyroxine TSH wnl Stable Depression/anxiety: continue Zoloft DVT Px: Heparin SQ Code Status Full Code DISPOSITION lives with his lives with his D/w pt wants to return home will need home health visiting nurse for wound care social service consulted for discharge planning expected to be discharged home when medically stable Vital Signs: Date Time Temp Pulse Resp B/P (MAP) Pulse Ox O2 Delivery O2 Flow Rate FiO2 06/26/17 16:00 Room Air 06/26/17 13:00 36.5 80 18 121/72 (88) 96 Room Air 06/26/17 12:39 36.5 68 18 95 06/26/17 12:00 36.5 68 18 124/69 (87) 95 Room Air 06/26/17 12:00 94 Room Air 06/26/17 10:53 36.5 68 18 124/69 (87) 95 Room Air 06/26/17 08:00 94 Room Air 06/26/17 07:44 36.5 67 18 125/70 (88) 96 Room Air 06/26/17 04:24 36.8 70 17 118/66 (83) 94 Room Air 06/26/17 04:00 Room Air 06/26/17 00:00 Room Air 06/25/17 23:52 36.5 70 19 132/73 (92) 94 Room Air 06/25/17 20:00 Room Air Lab Results: Results Past 24 Hours Test 06/25/17 20:02 06/26/17 05:15 06/26/17 06:34 06/26/17 11:23 Range/Units Bedside Glucose 163 174 164 70-99 mg/dl Magnesium Level 2.4 1.8-2.4 mg/dl Random Vancomycin Level 16.7 mcg/ml Test 06/26/17 16:19 Range/Units Bedside Glucose 89 70-99 mg/dl
[2017-06-24] MEDS: INSULIN DETEMIR FLEXPEN/FLEX TOUCH 100 UNITS/ML 3ML SQ SCH (21:09)
[2017-06-25] MEDS: PIPERACILL/TAZOBAC IV 4.5 GM in DEXTROSE 5% 100ML IV SCH ×3 (02:11→17:36)
[2017-06-25 04:00] VITALS: BP 99/72; PULSE 67; TEMP 36.6; O2SAT 95
[2017-06-25] MEDS: LEVOTHYROXINE 50 MCG TAB PO SCH (06:15)
[2017-06-25 07:30] LABS: BUN/CREATININE RATIO 20.1 (10-20); CALCIUM 9.1 mg/dl (8.5-10.1); CREATININE 1.55 mg/dl (0.60-1.40); MAGNESIUM 2.3 mg/dl (1.8-2.4); POTASSIUM 3.6 mmol/L (3.5-5.1)
[2017-06-25 07:33] VITALS: BP 92/72; PULSE 64; TEMP 36.4; O2SAT 95
[2017-06-25] MEDS: METOPROLOL SUCC 25MG EXT REL TAB PO SCH ×2 (08:35→21:16)
[2017-06-25] MEDS: ISOSORBIDE MONONITRATE 30 MG TABCR PO SCH (08:35)
[2017-06-25] MEDS: ATORVASTATIN 40 MG TAB PO SCH (08:35)
[2017-06-25] MEDS: ALLOPURINOL 300 MG TAB PO SCH (08:35)
[2017-06-25] MEDS: SERTRALINE HCL 100 MG TAB PO SCH (08:35)
[2017-06-25] MEDS: POTASSIUM CHLORIDE 20 MEQ TABCR PO SCH (08:36)
[2017-06-25] MEDS: INSULIN ASPART 100 UNITS/ML 3 ML PEN SC SCH ×4 (08:38→21:18)
[2017-06-25] MEDS: INSULIN DETEMIR FLEXPEN/FLEX TOUCH 100 UNITS/ML 3ML SQ SCH ×2 (08:39→21:18)
[2017-06-25] MEDS ORDERED: VANCOMYCIN INJ 1,000 MG in SODIUM CHLORIDE 0.9% 250ML 250 ML IV ONE (09:30)
--- NOTE | 2017-06-25 10:31 | Orthopedic Progress Note ---
Orthopedic Progress Note Date of Service Jun 25, 2017. Subjective Post OP Day: 1 Reports: feeling well, pain controlled w PO medications, Denies: complaints, chest pain, SOB, nausea / vomiting, light headedness, calf pain Objective dressing C/D/I, A&O x3 Mild bleeding, no saturation. Date Time Temp Pulse Resp B/P (MAP) Pulse Ox O2 Delivery O2 Flow Rate FiO2 06/25/17 08:00 Room Air 06/25/17 07:33 36.4 64 18 92/72 (79) 95 Room Air 06/25/17 04:00 Room Air 06/25/17 04:00 36.6 67 16 99/72 (81) 95 Room Air 06/25/17 00:02 Room Air 06/24/17 23:28 36.7 68 18 113/60 (77) 99 Room Air 06/24/17 20:02 36.4 65 18 123/97 (106) 97 Room Air 06/24/17 20:00 Room Air 06/24/17 16:00 96 Room Air 06/24/17 15:49 36.3 64 18 122/69 (86) 96 Room Air 06/24/17 13:45 61 16 127/66 (86) 95 Room Air 06/24/17 12:45 65 16 132/68 (89) 97 Room Air 06/24/17 12:15 68 16 140/75 (96) 95 Room Air 06/24/17 12:00 Room Air 06/24/17 11:45 36.4 75 16 133/76 (95) 95 Room Air 06/24/17 11:30 36.2 57 14 125/77 97 Room Air 06/24/17 11:20 55 12 125/90 97 Room Air 06/24/17 11:11 36.3 61 14 122/73 96 Room Air Assessment & Plan Assessment: POD #1, Right ring finger amputation. Plan: As per medicine, on Keegan Lobo. Gram pos cocci. Dressing change tomorrow. Disposition- Per primary team.
[2017-06-25 11:58] VITALS: BP 125/70; PULSE 68; TEMP 36.8; O2SAT 95
[2017-06-25 15:19] VITALS: BP 113/68; PULSE 66; TEMP 36.7; O2SAT 95
--- NOTE | 2017-06-25 18:34 | Progress Note ---
Internal Med Progress Note Date of Service: Jun 25, 2017. Provider Documentation: SUBJECTIVE: no new complain , no fever or chills wants to go home not interested in rehab or home health visiting nurse OBJECTIVE: Vital Signs-as noted below Exam: General-obese , no apparent distress Eyes-sclera non icteric , PERRLA/EOMI ENT-NAD Neck-No thyromegaly Lungs-no rales or wheeze Heart-regular Abdomen-soft, non tender Extremities-amputation of multiple digits on both hand , s/p amputation of rt 3 rd finger -rt hand remains in bandage , s/p left bka Neuro-no focal deficit , AAO x 3, conversing appropriately Lab data as noted below. ASSESSMENT & PLAN: SEPSIS DUE TO INFECTED RT 3RD FINGER WOUND necrotic right 3rd finger infection with osteomyelitis wound culture : staph aureus /enterococcus /gram negative bacilli appreciate input form wound care S/P debridement by Wound team Dr. Nicolas Continue IV Vanco and Zosyn ID eval requested appreciate input Pending final identification and sensitivities recommends to continue with vancomycin and Zosyn need to follow renal function carefully while on Abx given the severely of infection and possible osteomyelitis Will likely require further surgical intervention orthopedic consulted -s/p rt 3rd finger amputation DM II: poorly controlled Diabetic Neuropathy/Vasculopathy /non healing wound Will hold oral diabetic meds Last A1c: 9.2 on 06/20/17 ISS, basal Insulin Continue monitor BS Ischemic cardiomyopathy Last EF: 20% S/P ICD placement No signs of fluid overload stable CARDIAC ARRHYTHMIA : non sustained v tach noted in tele pt did not had any symptoms appreciate input form cardiology no evidence of paroxysmal afib in prior AICD interrogation-no indication for Coumadin anticoagulation on Aspirin and Plavix brief episode of ventricular arrhythmia could due to acute illness in setting of severe cardiomyopathy cont on Beta rosa Corrected low K , follow Mg level K level needs to > 4 to prevent ventricular arrhythmia PATRICIA ON CKD III: Cr was elevated Lasix kept on hold renal function gradually improving Monitor renal function CKD III: Cr stable Monitor renal function Hypothyroidism: continue levothyroxine TSH wnl Stable Depression/anxiety: continue Zoloft DVT Px: Heparin SQ Code Status Full Code Consultants: Neuro DISPOSITION expected to be discharged home when medically stable lives with his PT/OT eval prior to discharge Vital Signs: Date Time Temp Pulse Resp B/P (MAP) Pulse Ox O2 Delivery O2 Flow Rate FiO2 06/27/17 11:26 36.5 66 18 129/77 (94) 96 Room Air 06/27/17 10:52 94 Room Air 06/27/17 08:00 Room Air 06/27/17 07:39 36.5 67 18 137/88 (104) 94 Room Air 06/27/17 00:00 94 Room Air 06/26/17 23:36 36.4 71 18 144/87 (106) 95 Room Air 06/26/17 16:00 Room Air Lab Results: Results Past 24 Hours Test 06/26/17 16:19 06/26/17 20:31 06/27/17 05:43 06/27/17 07:20 Range/Units Bedside Glucose 89 155 83 70-99 mg/dl Creatinine 1.38 0.60-1.40 mg/dl Est Creatinine Clear Calc Drug Dose 66.4 ml/min Estimated GFR () 61.3 Estimated GFR (Non- 52.9 Random Vancomycin Level 15.2 mcg/ml Test 06/27/17 12:43 Range/Units Bedside Glucose 148 70-99 mg/dl
[2017-06-25 18:47] VITALS: BP 113/63; PULSE 70; TEMP 36.4; O2SAT 95
[2017-06-25 23:52] VITALS: BP 132/73; PULSE 70; TEMP 36.5; O2SAT 94
[2017-06-26] VITALS (8 sets, daily range): BP systolic 118–144; BP diastolic 66–87; PULSE 67–80; TEMP 36.4–36.8; O2SAT 94–96
[2017-06-26] MEDS: PIPERACILL/TAZOBAC IV 4.5 GM in DEXTROSE 5% 100ML IV SCH ×3 (02:29→17:32)
[2017-06-26] MEDS: LEVOTHYROXINE 50 MCG TAB PO SCH (05:57)
[2017-06-26] MEDS ORDERED: VANCOMYCIN INJ 1,250 MG in SODIUM CHLORIDE 0.9% 250ML 250 ML IV ONE (08:00)
[2017-06-26] MEDS: ISOSORBIDE MONONITRATE 30 MG TABCR PO SCH (08:03)
[2017-06-26] MEDS: ATORVASTATIN 40 MG TAB PO SCH (08:04)
[2017-06-26] MEDS: POTASSIUM CHLORIDE 20 MEQ TABCR PO SCH (08:04)
[2017-06-26] MEDS: ALLOPURINOL 300 MG TAB PO SCH (08:05)
[2017-06-26] MEDS: SERTRALINE HCL 100 MG TAB PO SCH (08:05)
[2017-06-26] MEDS: METOPROLOL SUCC 25MG EXT REL TAB PO SCH ×2 (08:05→21:46)
--- NOTE | 2017-06-26 08:10 | Anesthesiology Progress Note ---
Anesthesia Post Op Note Date & Time Jun 26, 2017 at 08:10 Vital Signs Pain Intensity: 0.0 Vital Signs Past 12 Hours Date Time Temp Pulse Resp B/P (MAP) Pulse Ox O2 Delivery O2 Flow Rate FiO2 06/26/17 07:44 36.5 67 18 125/70 (88) 96 Room Air 06/26/17 04:24 36.8 70 17 118/66 (83) 94 Room Air 06/26/17 04:00 Room Air 06/26/17 00:00 Room Air 06/25/17 23:52 36.5 70 19 132/73 (92) 94 Room Air Notes Mental Status: alert / awake / arousable Pt Amnestic to Procedure: Yes Nausea / Vomiting: adequately controlled Pain: adequately controlled Airway Patency, RR, SpO2: stable & adequate BP & HR: stable & adequate Hydration State: stable & adequate
[2017-06-26] MEDS: INSULIN ASPART 100 UNITS/ML 3 ML PEN SC SCH ×4 (08:17→21:48)
[2017-06-26] MEDS: INSULIN DETEMIR FLEXPEN/FLEX TOUCH 100 UNITS/ML 3ML SQ SCH ×2 (08:19→21:48)
--- NOTE | 2017-06-26 11:35 | Pharmacy Progress Note ---
Pharmacy Abx Dose Short Note Date of Service Jun 26, 2017. Assessment & Plan Assessment 66 year old male receiving Vancomycin/Zosyn IV for treatment of SSTI. Day # 7 of antimicrobial therapy. Plan Vancomycin * Random level of 16.7 mcg/mL is therapeutic and indicates that it is appropriate to re-dose patient at this time * I hesitate to schedule a maintenance dose with reduced urine output and evidence of slow Vancomycin elimination from previous levels. * Give 1250 mg IV X 1 this AM and recheck level in the AM * Goal level to guide further dosin to 20 mcg/mL Zosyn * 4.5 g IV every 8 hours * High dose selected for obesity Pharmacy will continue to follow and will adjust dose/frequency as necessary. Thank you.
--- NOTE | 2017-06-26 11:41 | Pharmacy Progress Note ---
Glycemic: Assessment & Plan Date of Service Jun 26, 2017. Assessment & Plan ASSESSMENT: * 66 yo M on basal bolus insulin regimen for hyperglycemia secondary to baseline DM (outpatient regimen on hold), stress/infection, recent surgery * Over the past 24 hours, patient received a total of 75 units of insulin * BSGs ranging 101-174 mg/dL * Changes needed to insulin regimen: * AM Fasting BSG = 174 mg/dl. Although this is slightly elevated today, I do not want to overreact and increase Lantus further as patient did have fasting hypoglycemia 48 hours prior. Monitor closely. * Post-prandial BSGs are at goal. No change to CF/CR today. PLAN FOR INPATIENT GLYCEMIC CONTROL: * Oral Agents * Continue to hold outpatient oral diabetes medications. * Basal insulin * Levemir 15-20units SQ BID * 15 units if < 140, 20 units if > or = to 140 * Bolus insulin * NovoLog per scale ACHS or Q6hrs while NPO * Goal Range: Low 110 mg/dL - High 140 mg/dL * Correction Factor: 10 mg/dL/unit * Nutritional / Prandial insulin per carb ratio of 1 unit per 4 grams CHO consumed * Please note that the plan above was derived based on current level of insulin resistance and hospital stress. These recommendations are appropriate for inpatient admission only. Plan of care upon discharge will need to be reassessed to avoid potential outpatient hypo/hyperglycemia. Thank you.
--- NOTE | 2017-06-26 14:57 | Orthopedic Progress Note ---
Orthopedic Progress Note Date of Service Jun 26, 2017. Subjective Post OP Day: 2 Reports: feeling well, Denies: complaints Objective Dressings removed. Mild erythema noted but otherwise benign. No purulence noted. Redressed with Xeroform,4x4's, and kerlix. Date Time Temp Pulse Resp B/P (MAP) Pulse Ox O2 Delivery O2 Flow Rate FiO2 06/26/17 13:00 36.5 80 18 121/72 (88) 96 Room Air 06/26/17 12:39 36.5 68 18 95 06/26/17 12:00 36.5 68 18 124/69 (87) 95 Room Air 06/26/17 12:00 94 Room Air 06/26/17 10:53 36.5 68 18 124/69 (87) 95 Room Air 06/26/17 08:00 94 Room Air 06/26/17 07:44 36.5 67 18 125/70 (88) 96 Room Air 06/26/17 04:24 36.8 70 17 118/66 (83) 94 Room Air 06/26/17 04:00 Room Air 06/26/17 00:00 Room Air 06/25/17 23:52 36.5 70 19 132/73 (92) 94 Room Air 06/25/17 20:00 Room Air 06/25/17 18:47 36.4 70 18 113/63 (80) 95 Room Air 06/25/17 16:00 Room Air 06/25/17 15:19 36.7 66 18 113/68 (83) 95 Room Air Assessment & Plan Assessment: POD #2, Right ring finger amputation. Plan: Antibx as per Med/ID team No further surgery at this time. Daily dressing changes.
--- NOTE | 2017-06-26 17:48 | Progress Note ---
Internal Med Progress Note Date of Service: Jun 26, 2017. Provider Documentation: SUBJECTIVE: no new complain , wants to go home not interested in rehab or home health visiting nurse says his is a [employer] ,will help with the dressing change pt is counselled regarding importance of dressing change and follow up for adequate wound healing home nursing can teach his with dressing changes and dressing supply pt is not interested OBJECTIVE: Vital Signs-as noted below Exam: General-obese , no apparent distress Eyes-sclera non icteric , PERRLA/EOMI ENT-NAD Neck-No thyromegaly Lungs-no rales or wheeze Heart-regular Abdomen-soft, non tender Extremities-amputation of multiple digits on both hand , s/p amputation of rt 3 rd finger-amputation site ana intact, appears to be healing well , no drainage or bleeding Neuro-no focal deficit , AAO x 3, conversing appropriately Lab data as noted below. ASSESSMENT & PLAN: SEPSIS DUE TO INFECTED RT 3RD FINGER WOUND S/P AMPUTATION necrotic right 3rd finger infection with osteomyelitis wound culture : staph aureus MSSA /enterococcus /gram negative bacilli appreciate input form wound care S/P debridement by Wound team Dr. Nicolas Continue IV Vanco and Zosyn ID eval requested appreciate input continue with vancomycin and Zosyn need to follow renal function carefully while on Abx orthopedic consulted -s/p rt 3rd finger amputation post amputation site healing well Ortho follow up in 2-3 weeks in office , removal of ana per Ortho pt will need wound care follow up at home reluctant for SNF or home health visiting nurse DM II: poorly controlled Diabetic Neuropathy/Vasculopathy /non healing wound Last A1c: 9.2 on 06/20/17 ISS, basal Insulin Continue monitor BS Ischemic cardiomyopathy Last EF: 20% S/P ICD placement No signs of fluid overload stable CARDIAC ARRHYTHMIA : non sustained v tach noted in tele pt did not had any symptoms appreciate input form cardiology no evidence of paroxysmal afib in prior AICD interrogation-no indication for Coumadin anticoagulation on Aspirin and Plavix brief episode of ventricular arrhythmia could due to acute illness in setting of severe cardiomyopathy cont on Beta rosa Corrected low K , follow Mg level K level needs to > 4 to prevent ventricular arrhythmia no arrhythmia noted post op stable to be transferred to [facility] floor CAD S/P Stent in 2013: cont ASA cont , statins, BB PATRICIA ON CKD III: Cr was elevated Lasix kept on hold renal function gradually improving Monitor renal function Hypothyroidism: continue levothyroxine TSH wnl Stable Depression/anxiety: continue Zoloft DVT Px: Heparin SQ Code Status Full Code Consultants: Neuro DISPOSITION expected to be discharged home when medically stable lives with his will benefit with home health visiting nurse for wound care -pt refuses PT/OT eval prior to discharge Vital Signs: Date Time Temp Pulse Resp B/P (MAP) Pulse Ox O2 Delivery O2 Flow Rate FiO2 06/27/17 11:26 36.5 66 18 129/77 (94) 96 Room Air 06/27/17 10:52 94 Room Air 06/27/17 08:00 Room Air 06/27/17 07:39 36.5 67 18 137/88 (104) 94 Room Air 06/27/17 00:00 94 Room Air 06/26/17 23:36 36.4 71 18 144/87 (106) 95 Room Air 06/26/17 16:00 Room Air Lab Results: Results Past 24 Hours Test 06/26/17 16:19 06/26/17 20:31 06/27/17 05:43 06/27/17 07:20 Range/Units Bedside Glucose 89 155 83 70-99 mg/dl Creatinine 1.38 0.60-1.40 mg/dl Est Creatinine Clear Calc Drug Dose 66.4 ml/min Estimated GFR () 61.3 Estimated GFR (Non- 52.9 Random Vancomycin Level 15.2 mcg/ml Test 06/27/17 12:43 Range/Units Bedside Glucose 148 70-99 mg/dl
[2017-06-27] VITALS (7 sets, daily range): BP systolic 129–166; BP diastolic 77–88; PULSE 66–68; TEMP 36.5; O2SAT 94–96
[2017-06-27] MEDS: PIPERACILL/TAZOBAC IV 4.5 GM in DEXTROSE 5% 100ML IV SCH ×2 (02:10→09:32)
[2017-06-27] MEDS: LEVOTHYROXINE 50 MCG TAB PO SCH (06:17)
[2017-06-27 06:40] LABS: CREATININE 1.38 mg/dl (0.60-1.40)
[2017-06-27] MEDS: ISOSORBIDE MONONITRATE 30 MG TABCR PO SCH (09:14)
[2017-06-27] MEDS: POTASSIUM CHLORIDE 20 MEQ TABCR PO SCH (09:15)
[2017-06-27] MEDS: ATORVASTATIN 40 MG TAB PO SCH (09:18)
[2017-06-27] MEDS: METOPROLOL SUCC 25MG EXT REL TAB PO SCH ×2 (09:19→20:23)
[2017-06-27] MEDS: SERTRALINE HCL 100 MG TAB PO SCH (09:20)
[2017-06-27] MEDS: ALLOPURINOL 300 MG TAB PO SCH (09:22)
[2017-06-27] MEDS: INSULIN ASPART 100 UNITS/ML 3 ML PEN SC SCH ×4 (09:41→20:24)
[2017-06-27] MEDS: INSULIN DETEMIR FLEXPEN/FLEX TOUCH 100 UNITS/ML 3ML SQ SCH ×2 (10:29→20:28)
--- NOTE | 2017-06-27 12:42 | Orthopedic Progress Note ---
Orthopedic Progress Note Date of Service Jun 27, 2017. Subjective Post OP Day: 3 Reports: feeling well, Denies: complaints Objective Dressing removed. Wound benign without purulent drainage. Mild erythema noted. Date Time Temp Pulse Resp B/P (MAP) Pulse Ox O2 Delivery O2 Flow Rate FiO2 06/27/17 11:26 36.5 66 18 129/77 (94) 96 Room Air 06/27/17 10:52 94 Room Air 06/27/17 08:00 Room Air 06/27/17 07:39 36.5 67 18 137/88 (104) 94 Room Air 06/27/17 00:00 94 Room Air 06/26/17 23:36 36.4 71 18 144/87 (106) 95 Room Air 06/26/17 16:00 Room Air 06/26/17 13:00 36.5 80 18 121/72 (88) 96 Room Air Assessment & Plan Assessment: POD #3, Right ring finger amputation. Plan: Antibx as per Med/ID team No further surgery at this time. Daily dressing changes. Ortho will sign off for now. Please call with any questions.
--- NOTE | 2017-06-27 12:44 | Consultant Recommendations ---
Business Professor Recommendations Date of Service Jun 27, 2017. Business Professor Recommendations Daily dressing changes Keep dressings clean and dry. Ok to shower if there is no drainage coming from the wound. Do not soak the wound. No tub baths. Do not let the shower water beat on the wound. Keep hand elevated when at rest to help with swelling. Ice packs as needed Follow up with Dr Henriquez in 10-14 days from the day of surgery. Call for appointment. [phone]
--- NOTE | 2017-06-27 13:01 | Infectious Disease Progress Nt ---
Progress Note Date of Service Jun 27, 2017. Subjective Pt evaluation today including: conversation w/ patient, physical exam, chart review, lab review, review of studies, conversation w/ microsoft dynamics consultant, review of inpatient medication list recent events reviewed. Patient is status post partial amputation of finger. Operative cultures now growing Enterococcus. Previous cultures with Staph, Enterococcus, Morganella, and Prevotella. Remains afebrile, offers no new complaints. All Other Systems: Reviewed and Negative Medications RUN DATE: 06/27/17 [facility] LAB PAGE 1 RUN TIME: 1101 Specimen Inquiry PATIENT: LUZ CRUZ LOC: [id number] U # : [id number] AGE/SX: 66/M ROOM: [facility] REG : 06/20/[address]: Kelsey Busby M.D. : 1950 BED: 2 DIS : STATUS: ADM IN TLOC: SPEC #: [id number] JONATHAN: 06/24/17-UNK STATUS: RES REQ #: [id number] RECD: 06/24/[address]: Kelsey Busby M.D. SOURCE: DRAIN-DEEP ENTR: 06/24/[address]: Scout Daniels [facility] LUCIAN, R3 Virginie, Homero DO Florence Landry Christopher J., MD Mateer, John, M.D. ( MEDICINE) No Doctor, Assigned Tyrone Nicolas, Alexandr Villarreal MD Wigan, Caroline V., M.D. ORDERED: AER/TRESA CULTSMR Procedure Result Verified Site GRAM STAIN Final 06/25/17 RESULT RARE EPITHELIAL CELLS NO WBCs SEEN NO ORGANISMS SEEN OR AER/TRESA CULT Preliminary 06/27/17 Organism 1 ENTEROCOCCUS FAECALIS QUANITY RARE SENS SENSITIVITY TO FOLLOW Organism 2 YEAST NOT WILVER ALBICANS QUANITY RARE SENS NO SENSITIVITY TO FOLLOW 1. ENTEROCOCCUS FAECALIS Target Route Dose RX AB Cost M.I.C. IQ ------ ----- ------ -- ------ -------- - ------ AMPICILLIN S <=2 GENT SYNERGY S <=500 VANCOMYCIN S 1 PENICILLIN S 2 DAPTOMYCIN S 1 STREP SYNERGY S <=1000 Streptomycin Synergy Screen S Gentamicin Synergy Screen S S = SENSITIVE I = INTERMEDIATE R = RESISTANT END OF REPORT Current Inpatient Medications Medications (Trade) Dose Ordered Sig/Ifeanyi Route Start Time Stop Time Status Last Admin Dose Admin Miscellaneous Information (Pharmacist Discharge Med Rec Consult) 1 ea UD PRN N/A 06/20/17 02:45 07/20/17 02:44 Heparin Sodium (Porcine) (Heparin Sq 5000 Unit/0.5ml) 5,000 unit Q8 SQ 06/20/17 06:00 07/20/17 05:59 Future Hold 06/23/17 14:09 5,000 UNIT Acetaminophen (Tylenol Tab) 650 mg Q4H PRN PO 06/20/17 02:45 07/20/17 02:44 Allopurinol (Zyloprim Tab) 300 mg DAILY PO 06/20/17 09:00 07/20/17 08:59 06/27/17 09:22 300 MG Aspirin (Ecotrin Tab) 81 mg DAILY PO 06/21/17 09:00 07/21/17 08:59 Future Hold 06/23/17 08:17 81 MG Atorvastatin Calcium (Lipitor Tab) 80 mg DAILY PO 06/20/17 09:00 07/20/17 08:59 06/27/17 09:18 80 MG Furosemide (Lasix Tab) 80 mg BID17 PO 06/20/17 09:00 07/20/17 08:59 Future Hold 06/22/17 16:58 80 MG Isosorbide Mononitrate (Imdur Ext Rel Tab) 15 mg QAM PO 06/20/17 09:00 07/20/17 08:59 06/27/17 09:14 15 MG Levothyroxine Sodium (Synthroid Tab) 50 mcg DAILYBB PO 06/20/17 06:00 07/20/17 05:59 06/27/17 06:17 50 MCG Metoprolol Succinate (Toprol Xl Tab) 25 mg BID PO 06/20/17 09:00 07/20/17 08:59 06/27/17 09:19 25 MG Sertraline HCl (Zoloft Tab) 100 mg DAILY PO 06/20/17 09:00 07/20/17 08:59 06/27/17 09:20 100 MG Insulin Aspart (novoLOG ASPART) SLIDING SCALE If C... ACHS SC 06/20/17 07:00 07/20/17 06:59 06/27/17 09:41 5 UNITS Glucose (Glucose 40% Gel) 15-30 GRAMS 15 GRAMS... UD PRN PO 06/20/17 03:00 07/20/17 02:59 Glucose (Glucose Chew Tab) 4-8 Tablets 4 Tabl... UD PRN PO 06/20/17 03:00 07/20/17 02:59 06/24/17 06:55 4 TABS Dextrose (Dextrose 50% 50ML Syringe) 25-50ML OF 50% DW IV FOR... UD PRN IV 06/20/17 03:00 07/20/17 02:59 Glucagon (Glucagon Inj) 1 mg UD PRN SQ 06/20/17 03:00 07/20/17 02:59 Albuterol Sulfate (Ventolin 0.083% 2.5MG/3ML Neb) 2.5 mg Q6R PRN INH 06/20/17 03:15 07/20/17 03:14 Piperacillin Sod/ Tazobactam Sod (Consult) 1 ea UD PRN N/A 06/20/17 03:30 07/20/17 03:29 Promethazine HCl 12.5 mg/Sodium Chloride 50.5 ml @ 204 mls/hr Q6H PRN IV 06/20/17 04:45 07/20/17 04:44 Piperacillin Sod/ Tazobactam Sod 4.5 gm/Dextrose 120 ml @ 30 mls/hr Q8H IV 06/20/17 10:00 06/30/17 09:59 06/27/17 09:32 30 MLS/HR Clopidogrel Bisulfate (plAVix TAB) 75 mg QAM PO 06/21/17 09:00 07/21/17 08:59 Future Hold 06/23/17 08:17 75 MG Miscellaneous Information (Consult Glycemic Management Pharmacy) 1 ea UD PRN N/A 06/21/17 13:15 07/21/17 13:14 Insulin Detemir (Levemir Flexpen/ FlexTouch) PLEASE SEE PROTOCOL TEXT BID SQ 06/21/17 21:00 07/21/17 20:59 Future hold 06/27/17 10:29 15 UNITS Potassium Chloride (Klor-Con Tab) 20 meq QAM PO 06/23/17 09:00 07/23/17 08:59 06/27/17 09:15 20 MEQ Objective Vital Signs Date Time Temp Pulse Resp B/P (MAP) Pulse Ox O2 Delivery O2 Flow Rate FiO2 06/27/17 11:26 36.5 66 18 129/77 (94) 96 Room Air 06/27/17 10:52 94 Room Air 06/27/17 08:00 Room Air 06/27/17 07:39 36.5 67 18 137/88 (104) 94 Room Air 06/27/17 00:00 94 Room Air 06/26/17 23:36 36.4 71 18 144/87 (106) 95 Room Air 06/26/17 16:00 Room Air 06/26/17 13:00 36.5 80 18 121/72 (88) 96 Room Air Physical Exam General Appearance: WD/WN, no apparent distress Eyes: normal inspection, sclerae normal ENT: normal ENT inspection, pharynx normal Neck: supple, no adenopathy, trachea midline Respiratory/Chest: lungs clear, normal breath sounds, no respiratory distress Cardiovascular: regular rate, rhythm, no gallop, no murmur Abdomen: normal bowel sounds, non tender, soft, no organomegaly Extremities: non-tender, no calf tenderness Neurologic/Psychiatric: alert, oriented x 3 Skin: normal color, no rash, + pertinent finding (Surgical dressing intact) Lymphatic: no adenopathy Laboratory Results Last 24 Hours Test 06/26/17 16:19 06/26/17 20:31 06/27/17 05:43 06/27/17 07:20 Bedside Glucose 89 mg/dl 155 mg/dl 83 mg/dl Creatinine 1.38 mg/dl Est Creatinine Clear Calc Drug Dose 66.4 ml/min Estimated GFR () 61.3 Estimated GFR (Non- 52.9 Random Vancomycin Level 15.2 mcg/ml Test 06/27/17 12:43 Bedside Glucose 148 mg/dl Assessment and Plan 66-year-old male with necrotic right 3rd finger infection with osteomyelitis with sepsis and encephalopathy in the setting of 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 Patient can be transitioned to oral antibiotics and would recommend combination of Augmentin and ciprofloxacin.Recommended at least 2 weeks of therapy until follow-up with wound care.
--- NOTE | 2017-06-27 15:10 | Progress Note ---
Subjective Date of Service: Jun 27, 2017. Subjective Pt evaluation today including: conversation w/ patient, physical exam, lab review, review of studies, review of inpatient medication list Saw/examined the patient in room 250-2 No problems/issues to note today he states he has no pain, no fevers/chills, no nausea/vomiting Eager to go home Problem List Medical Problems: (1) Acute renal injury Status: Acute (2) Altered mental status Status: Acute (3) C. difficile diarrhea Status: Acute (4) Cellulitis of right hand Status: Acute (5) Dehydration Status: Acute (6) Diabetes Status: Acute (7) Hemothorax on right Status: Acute (8) Hyperglycemia Status: Acute (9) Hypoglycemia Status: Acute (10) Hypoglycemia Status: Acute (11) Hypothermia Status: Acute (12) Infection of finger Status: Acute (13) Multiple rib fractures Status: Acute (14) Necrotic wound of right hand Status: Acute (15) Pleural effusion, right Status: Acute (16) Right-sided chest pain Status: Acute (17) Septic shock Status: Acute (18) Severe sepsis Status: Acute (19) Stroke Status: Acute Review of Systems Constitutional: No fever, No chills, No weakness Respiratory: No cough, No sputum, No shortness of breath Cardiac: No chest pain Abdomen: No pain, No nausea, No vomiting, No diarrhea Neurologic: + balance problems Medications Current Inpatient Medications Medications (Trade) Dose Ordered Sig/Ifeanyi Route Start Time Stop Time Status Last Admin Dose Admin Miscellaneous Information (Pharmacist Discharge Med Rec Consult) 1 ea UD PRN N/A 06/20/17 02:45 07/20/17 02:44 Heparin Sodium (Porcine) (Heparin Sq 5000 Unit/0.5ml) 5,000 unit Q8 SQ 06/20/17 06:00 07/20/17 05:59 Future Hold 06/23/17 14:09 5,000 UNIT Acetaminophen (Tylenol Tab) 650 mg Q4H PRN PO 06/20/17 02:45 07/20/17 02:44 Allopurinol (Zyloprim Tab) 300 mg DAILY PO 06/20/17 09:00 07/20/17 08:59 06/27/17 09:22 300 MG Aspirin (Ecotrin Tab) 81 mg DAILY PO 06/21/17 09:00 11/17/17 08:59 Future Hold 06/23/17 08:17 81 MG Atorvastatin Calcium (Lipitor Tab) 80 mg DAILY PO 06/20/17 09:00 07/20/17 08:59 06/27/17 09:18 80 MG Furosemide (Lasix Tab) 80 mg BID17 PO 06/20/17 09:00 07/20/17 08:59 Future Hold 06/22/17 16:58 80 MG Isosorbide Mononitrate (Imdur Ext Rel Tab) 15 mg QAM PO 06/20/17 09:00 07/20/17 08:59 06/27/17 09:14 15 MG Levothyroxine Sodium (Synthroid Tab) 50 mcg DAILYBB PO 06/20/17 06:00 07/20/17 05:59 06/27/17 06:17 50 MCG Metoprolol Succinate (Toprol Xl Tab) 25 mg BID PO 06/20/17 09:00 07/20/17 08:59 06/27/17 09:19 25 MG Sertraline HCl (Zoloft Tab) 100 mg DAILY PO 06/20/17 09:00 07/20/17 08:59 06/27/17 09:20 100 MG Insulin Aspart (novoLOG ASPART) SLIDING SCALE If C... ACHS SC 06/20/17 07:00 07/20/17 06:59 06/27/17 13:00 10 UNITS Glucose (Glucose 40% Gel) 15-30 GRAMS 15 GRAMS... UD PRN PO 06/20/17 03:00 07/20/17 02:59 Glucose (Glucose Chew Tab) 4-8 Tablets 4 Tabl... UD PRN PO 06/20/17 03:00 07/20/17 02:59 06/24/17 06:55 4 TABS Dextrose (Dextrose 50% 50ML Syringe) 25-50ML OF 50% DW IV FOR... UD PRN IV 06/20/17 03:00 07/20/17 02:59 Glucagon (Glucagon Inj) 1 mg UD PRN SQ 06/20/17 03:00 07/20/17 02:59 Albuterol Sulfate (Ventolin 0.083% 2.5MG/3ML Neb) 2.5 mg Q6R PRN INH 06/20/17 03:15 07/20/17 03:14 Promethazine HCl 12.5 mg/Sodium Chloride 50.5 ml @ 204 mls/hr Q6H PRN IV 06/20/17 04:45 07/20/17 04:44 Clopidogrel Bisulfate (plAVix TAB) 75 mg QAM PO 06/21/17 09:00 07/21/17 08:59 Future Hold 06/23/17 08:17 75 MG Miscellaneous Information (Consult Glycemic Management Pharmacy) 1 ea UD PRN N/A 06/21/17 13:15 07/21/17 13:14 Insulin Detemir (Levemir Flexpen/ FlexTouch) PLEASE SEE PROTOCOL TEXT BID SQ 06/21/17 21:00 07/21/17 20:59 Future hold 06/27/17 10:29 15 UNITS Potassium Chloride (Klor-Con Tab) 20 meq QAM PO 06/23/17 09:00 07/23/17 08:59 06/27/17 09:15 20 MEQ Amoxicillin/ Clavulanate Potassium (Augmentin Tab) 875 mg BIDM PO 06/27/17 17:00 08/08/17 16:59 Ciprofloxacin (Cipro Tab) 500 mg BID PO 06/27/17 21:00 08/08/17 20:59 Objective Vital Signs Date Time Temp Pulse Resp B/P (MAP) Pulse Ox O2 Delivery O2 Flow Rate FiO2 06/27/17 11:26 36.5 66 18 129/77 (94) 96 Room Air 06/27/17 10:52 94 Room Air 06/27/17 08:00 Room Air 06/27/17 07:39 36.5 67 18 137/88 (104) 94 Room Air 06/27/17 00:00 94 Room Air 06/26/17 23:36 36.4 71 18 144/87 (106) 95 Room Air 06/26/17 16:00 Room Air 06/26/17 13:00 36.5 80 18 121/72 (88) 96 Room Air Physical Exam General Appearance: no apparent distress Respiratory/Chest: lungs clear, normal breath sounds, no respiratory distress, no accessory muscle use Cardiovascular: regular rate, rhythm, no edema, no murmur Extremities: + pertinent finding (multiple digits amputated; L BKA with prosthesis in place) Laboratory Results Last 24 Hours Test 06/26/17 16:19 06/26/17 20:31 06/27/17 05:43 06/27/17 07:20 Bedside Glucose 89 mg/dl 155 mg/dl 83 mg/dl Creatinine 1.38 mg/dl Est Creatinine Clear Calc Drug Dose 66.4 ml/min Estimated GFR () 61.3 Estimated GFR (Non- 52.9 Random Vancomycin Level 15.2 mcg/ml Assessment and Plan This is a 66 year old male with a PMH of uncontrolled DM2, CAD s/p stenting in 2014, ischemic cardiomyopathy with LVEF of ~ 20%, CKD stage 3, 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 with chronic ambulatory issues; using a walker at baseline, hypothyroidism, depression/anxiety, multiple finger amputations presents due to infection of R 3rd finger Sepsis secondary to osteomyelitis infection of the R third finger s/p amputation and debridement pain controlled; wound healing multiple bacterial growing on cultures; MSSA, Prevotella, Morganella, Enterococcus Faecalis appreciate ortho input; no further surgical intervention for now - outpatient f/ u appreciate ID input - change to Cipro and Augmentin for 2 weeks - outpatient f/u wound care - continue outpatient wound care will d/c home if tolerating oral antibiotics on 06/18 DM2 poorly controlled with an A1c = 9.2% multiple amputations due to neuropathy/vasculopathy; hold oral agents while inpatient will need tighter control as an outpatient diabetic education and glycemic control appreciated Ischemic cardiomyopathy Last EF: 20% S/P ICD placement No signs of fluid overload stable Episode of NSVT non sustained v tach noted in tele pt did not had any symptoms appreciate cardiology input- continue b-rosa monitor electrolytes CAD s/p stenting stents placed in 2013 continue aspirin, Plavix, b-rosa CKD stage 3 creatinine stable Hypothyroidism cont. Synthroid Depression/Anxiety continue Zoloft DVT ppx subq heparin FULL CODE
[2017-06-27] MEDS: AMOXICILLIN/CLAVULANATE TAB 875 MG TAB PO SCH (17:20)
[2017-06-27] MEDS: CIPROFLOXACIN 500 MG TAB PO SCH (20:23)
[2017-06-28 00:46] VITALS: BP 127/78; PULSE 67; TEMP 36.6; O2SAT 95
[2017-06-28] MEDS: LEVOTHYROXINE 50 MCG TAB PO SCH (06:08)
[2017-06-28 06:27] LABS: HEMATOCRIT 37.6 % (42-52); MEAN CELL VOLUME 80.3 fL (80-100); MEAN CORPUSCULAR HEMOGLOBIN 26.9 pg (25-34); MEAN CORPUSCULAR HGB CONC 33.5 g/dl (32-36); MEAN PLATELET VOLUME 8.9 fL (7.4-10.4); PLATELET COUNT 231 K/uL (130-400); RED BLOOD COUNT 4.68 M/uL (4.7-6.1); WHITE BLOOD COUNT 6.32 K/uL (4.8-10.8)
[2017-06-28 07:01] LABS: BUN/CREATININE RATIO 21.6 (10-20); CALCIUM 9.2 mg/dl (8.5-10.1); CREATININE 1.29 mg/dl (0.60-1.40)
[2017-06-28 07:07] VITALS: BP 150/100; PULSE 66; TEMP 36.4; O2SAT 95
[2017-06-28] MEDS: METOPROLOL SUCC 25MG EXT REL TAB PO SCH (07:28)
[2017-06-28] MEDS: POTASSIUM CHLORIDE 20 MEQ TABCR PO SCH (07:28)
[2017-06-28] MEDS: ALLOPURINOL 300 MG TAB PO SCH (07:28)
[2017-06-28] MEDS: SERTRALINE HCL 100 MG TAB PO SCH (07:28)
[2017-06-28] MEDS: AMOXICILLIN/CLAVULANATE TAB 875 MG TAB PO SCH ×2 (07:28→16:58)
[2017-06-28] MEDS: ATORVASTATIN 40 MG TAB PO SCH (07:29)
[2017-06-28] MEDS: ISOSORBIDE MONONITRATE 30 MG TABCR PO SCH (07:29)
[2017-06-28] MEDS: CIPROFLOXACIN 500 MG TAB PO SCH (07:29)
[2017-06-28] MEDS: INSULIN ASPART 100 UNITS/ML 3 ML PEN SC SCH ×3 (08:08→17:23)
[2017-06-28] MEDS: INSULIN DETEMIR FLEXPEN/FLEX TOUCH 100 UNITS/ML 3ML SQ SCH (08:09)
--- NOTE | 2017-06-28 09:45 | Progress Note ---
Subjective Date of Service: Jun 28, 2017. Subjective Pt evaluation today including: conversation w/ patient, physical exam, lab review, review of studies, review of inpatient medication list Saw/examined the patient in room 250 He's doing well, denies any pain, eager to get out of the hospital Denies any further needs; is okay with home health/PT Problem List Medical Problems: (1) Acute renal injury Status: Acute (2) Altered mental status Status: Acute (3) C. difficile diarrhea Status: Acute (4) Cellulitis of right hand Status: Acute (5) Dehydration Status: Acute (6) Diabetes Status: Acute (7) Hemothorax on right Status: Acute (8) Hyperglycemia Status: Acute (9) Hypoglycemia Status: Acute (10) Hypoglycemia Status: Acute (11) Hypothermia Status: Acute (12) Infection of finger Status: Acute (13) Multiple rib fractures Status: Acute (14) Necrotic wound of right hand Status: Acute (15) Pleural effusion, right Status: Acute (16) Right-sided chest pain Status: Acute (17) Septic shock Status: Acute (18) Severe sepsis Status: Acute (19) Stroke Status: Acute Review of Systems Constitutional: No fever, No chills Respiratory: No cough, No sputum, No shortness of breath Cardiac: No chest pain Abdomen: No pain, No nausea, No vomiting, No diarrhea Musculoskeletal: No joint pain Male : No dysuria, No urinary frequency Medications Current Inpatient Medications Medications (Trade) Dose Ordered Sig/Ifeanyi Route Start Time Stop Time Status Last Admin Dose Admin Miscellaneous Information (Pharmacist Discharge Med Rec Consult) 1 ea UD PRN N/A 06/20/17 02:45 07/20/17 02:44 Heparin Sodium (Porcine) (Heparin Sq 5000 Unit/0.5ml) 5,000 unit Q8 SQ 06/20/17 06:00 07/20/17 05:59 Future Hold 06/23/17 14:09 5,000 UNIT Acetaminophen (Tylenol Tab) 650 mg Q4H PRN PO 06/20/17 02:45 07/20/17 02:44 Allopurinol (Zyloprim Tab) 300 mg DAILY PO 06/20/17 09:00 07/20/17 08:59 06/28/17 07:28 300 MG Aspirin (Ecotrin Tab) 81 mg DAILY PO 06/21/17 09:00 07/21/17 08:59 Future Hold 06/23/17 08:17 81 MG Atorvastatin Calcium (Lipitor Tab) 80 mg DAILY PO 06/20/17 09:00 07/20/17 08:59 06/28/17 07:29 80 MG Furosemide (Lasix Tab) 80 mg BID17 PO 06/20/17 09:00 07/20/17 08:59 Future Hold 06/22/17 16:58 80 MG Isosorbide Mononitrate (Imdur Ext Rel Tab) 15 mg QAM PO 06/20/17 09:00 07/20/17 08:59 06/28/17 07:29 15 MG Levothyroxine Sodium (Synthroid Tab) 50 mcg DAILYBB PO 06/20/17 06:00 07/20/17 05:59 06/28/17 06:08 50 MCG Metoprolol Succinate (Toprol Xl Tab) 25 mg BID PO 06/20/17 09:00 07/20/17 08:59 06/28/17 07:28 25 MG Sertraline HCl (Zoloft Tab) 100 mg DAILY PO 06/20/17 09:00 07/20/17 08:59 06/28/17 07:28 100 MG Insulin Aspart (novoLOG ASPART) SLIDING SCALE If C... ACHS SC 06/20/17 07:00 07/20/17 06:59 06/28/17 08:08 6 UNITS Glucose (Glucose 40% Gel) 15-30 GRAMS 15 GRAMS... UD PRN PO 06/20/17 03:00 07/20/17 02:59 Glucose (Glucose Chew Tab) 4-8 Tablets 4 Tabl... UD PRN PO 06/20/17 03:00 07/20/17 02:59 06/24/17 06:55 4 TABS Dextrose (Dextrose 50% 50ML Syringe) 25-50ML OF 50% DW IV FOR... UD PRN IV 06/20/17 03:00 07/20/17 02:59 Glucagon (Glucagon Inj) 1 mg UD PRN SQ 06/20/17 03:00 07/20/17 02:59 Albuterol Sulfate (Ventolin 0.083% 2.5MG/3ML Neb) 2.5 mg Q6R PRN INH 06/20/17 03:15 07/20/17 03:14 Promethazine HCl 12.5 mg/Sodium Chloride 50.5 ml @ 204 mls/hr Q6H PRN IV 06/20/17 04:45 07/20/17 04:44 Clopidogrel Bisulfate (plAVix TAB) 75 mg QAM PO 06/21/17 09:00 07/21/17 08:59 Future Hold 06/23/17 08:17 75 MG Miscellaneous Information (Consult Glycemic Management Pharmacy) 1 ea UD PRN N/A 06/21/17 13:15 07/21/17 13:14 Insulin Detemir (Levemir Flexpen/ FlexTouch) PLEASE SEE PROTOCOL TEXT BID SQ 06/21/17 21:00 07/21/17 20:59 Future hold 06/28/17 08:09 15 UNITS Potassium Chloride (Klor-Con Tab) 20 meq QAM PO 06/23/17 09:00 07/23/17 08:59 06/28/17 07:28 20 MEQ Amoxicillin/ Clavulanate Potassium (Augmentin Tab) 875 mg BIDM PO 06/27/17 17:00 08/08/17 16:59 06/28/17 07:28 875 MG Ciprofloxacin (Cipro Tab) 500 mg BID PO 06/27/17 21:00 08/08/17 20:59 06/28/17 07:29 500 MG Objective Vital Signs Date Time Temp Pulse Resp B/P (MAP) Pulse Ox O2 Delivery O2 Flow Rate FiO2 06/28/17 08:00 Room Air 06/28/17 07:07 36.4 66 20 150/100 (117) 95 06/28/17 00:46 36.6 67 20 127/78 (94) 95 Room Air 06/28/17 00:00 Room Air 06/27/17 16:00 95 Room Air 06/27/17 15:09 36.5 68 18 136/78 (97) 95 Room Air 06/27/17 11:26 36.5 66 18 129/77 (94) 96 Room Air 06/27/17 10:52 94 Room Air Physical Exam General Appearance: no apparent distress ENT: hearing grossly normal Respiratory/Chest: lungs clear, normal breath sounds, no respiratory distress, no accessory muscle use Cardiovascular: regular rate, rhythm, no edema, no murmur Extremities: + pertinent finding (L BKA, multiple finger amputation, fifth digit remains on the R; first and second digit remain on the L) Neurologic/Psychiatric: alert, normal mood/affect Laboratory Results Last 24 Hours Test 06/27/17 12:43 06/27/17 16:12 06/27/17 19:57 06/28/17 06:14 Bedside Glucose 148 mg/dl 125 mg/dl 130 mg/dl White Blood Count 6.32 K/uL Red Blood Count 4.68 M/uL Hemoglobin 12.6 g/dL Hematocrit 37.6 % Mean Corpuscular Volume 80.3 fL Mean Corpuscular Hemoglobin 26.9 pg Mean Corpuscular Hemoglobin Concent 33.5 g/dl RDW Standard Deviation 48.1 fL RDW Coefficient of Variation 16.6 % Platelet Count 231 K/uL Mean Platelet Volume 8.9 fL Sodium Level 140 mmol/L Potassium Level 4.0 mmol/L Chloride Level 108 mmol/L Carbon Dioxide Level 25 mmol/L Anion Gap 7.0 mmol/L Blood Urea Nitrogen 28 mg/dl Creatinine 1.29 mg/dl Est Creatinine Clear Calc Drug Dose 71.1 ml/min Estimated GFR () 66.5 Estimated GFR (Non- 57.4 BUN/Creatinine Ratio 21.6 Random Glucose 93 mg/dl Calcium Level 9.2 mg/dl Test 06/28/17 07:24 Bedside Glucose 89 mg/dl Assessment and Plan This is a 66 year old male with a PMH of uncontrolled DM2, CAD s/p stenting in 2014, ischemic cardiomyopathy with LVEF of ~ 20%, CKD stage 3, 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 with chronic ambulatory issues; using a walker at baseline, hypothyroidism, depression/anxiety, multiple finger amputations presents due to infection of R 3rd finger Sepsis secondary to osteomyelitis infection of the R third finger 06/28 patient is tolerating oral antibiotics No pain, no other needs at this time okay with home health will d/c home today 06/27 s/p amputation and debridement pain controlled; wound healing multiple bacterial growing on cultures; MSSA, Prevotella, Morganella, Enterococcus Faecalis appreciate ortho input; no further surgical intervention for now - outpatient f/ u appreciate ID input - change to Cipro and Augmentin for 2 weeks - outpatient f/u wound care - continue outpatient wound care will d/c home if tolerating oral antibiotics on 06/28 DM2 poorly controlled with an A1c = 9.2% multiple amputations due to neuropathy/vasculopathy; hold oral agents while inpatient will need tighter control as an outpatient diabetic education and glycemic control appreciated Ischemic cardiomyopathy Last EF: 20% S/P ICD placement No signs of fluid overload stable Episode of NSVT non sustained v tach noted in tele pt did not had any symptoms appreciate cardiology input- continue b-rosa monitor electrolytes CAD s/p stenting stents placed in 2013 continue aspirin, Plavix, b-rosa CKD stage 3 creatinine stable Hypothyroidism cont. Synthroid Depression/Anxiety continue Zoloft DVT ppx subq heparin FULL CODE
[2017-06-28] MEDS ORDERED: MCRK20 PO (09:54)
[2017-06-28] MEDS ORDERED: AMOX1TAB43 PO (09:54)
[2017-06-28] MEDS ORDERED: CPR500 PO (09:54)
[2017-06-28] MEDS ORDERED: PLV75 PO (09:54)
--- NOTE | 2017-06-28 10:00 | Discharge Instructions ---
Discharge Instructions Date of Service Jun 28, 2017. Admission Reason for Admission: Ams, Hypothermia, Stroke Discharge Discharge Diagnosis / Problem: Altered Mental Status, Osteomyelitis (infection ) of the Finger Discharge Goals Goal(s): Decrease discomfort, Improve function, Diagnostic testing, Therapeutic intervention Activity Recommendations Activity Limitations: resume your previous activity . Instructions / Follow-Up Instructions / Follow-Up Please follow-up with Dr. Bond at [facility] on June 30 at 10:45AM * Take Augmentin twice a day for two weeks (antibiotic) * Take Cipro twice a day for two weeks (antibiotic) * You will need tighter control of your blood sugars - your Ha1c is >9% Current Hospital Diet Patient's current hospital diet: Diabetes Type 2 Diet, AHA Diet (Heart Healthy) Discharge Diet Recommended Diet: AHA Diet (Heart Healthy), Diabetes Type 2 Diet Procedures Procedures Performed: Right 3rd Finger Amputation Pending Studies Studies pending at discharge: no Laboratory Results Hemoglobin A1c Test 06/20/17 05:20 Range/Units Estimated Average Glucose 217 mg/dl Hemoglobin A1c 9.2 H 4.5-5.6 % Lipid Panel Test 06/21/17 05:10 Range/Units Triglycerides Level 138 0-150 mg/dl Cholesterol Level 153 0-200 mg/dl HDL Cholesterol 33 mg/dl Cholesterol/HDL Ratio 4.6 LDL Cholesterol, Calculated 92 mg/dl Medical Emergencies . Who to Call and When: Medical Emergencies: If at any time you feel your situation is an emergency, please call 911 immediately. . Non-Emergent Contact Non-Emergency issues call your: Primary Care Provider, Surgeon . . "Provider Documentation" section prepared by Zechariah Escalera. . Manager Garage Recommendations Manager Garage Recommendations: Daily dressing changes Keep dressings clean and dry. Ok to shower if there is no drainage coming from the wound. Do not soak the wound. No tub baths. Do not let the shower water beat on the wound. Keep hand elevated when at rest to help with swelling. Ice packs as needed Follow up with Dr Henriquez in 10-14 days from the day of surgery. Call for appointment. [phone] VTE Core Measure Inpt VTE Proph given/why not?: Unfractionated heparin SQ, SCD's
--- NOTE | 2017-06-28 10:05 | Discharge Summary ---
Discharge Summary Date of Service Jun 28, 2017. Discharge Summary Admission Date: Jun 20, 2017 at 02:47 Discharge Date: Jun 28, 2017 Discharge Disposition: Home with services Principal Diagnosis: Sepsis secondary to R third digit osteomyelitis Right third digit amputation Uncontrolled DM2 Chronic Ambulatory Difficulty secondary to L BKA Consultations: Neuro Medication Reconciliation New Medications: Amoxicillin & Pot Clavulanate (Amoxicillin/Clavulanate P) 1 Tab Tab 875 MG PO BIDM for 14 Days, #28 TAB Ciprofloxacin (Ciprofloxacin HCl) 500 Mg Tab 500 MG PO BID for 14 Days, #28 TAB Clopidogrel Bisulfate (Clopidogrel) 75 Mg Tab 75 MG PO QAM for 30 Days, #30 TAB Potassium Chloride (Klor-Con M20) 20 Meq Tabcr 20 MEQ PO QAM for 30 Days, #30 TABS Continued Medications: Albuterol Sulfate (Proair Respiclick) 108 Mcg/Act Aer 2 PUFFS INH Q4 PRN for SOB/Wheezing Allopurinol (Zyloprim) 100 Mg Tab 300 MG PO DAILY, TAB Aspirin (Aspirin Ec) 81 Mg Tab 81 MG PO DAILY Atorvastatin (Lipitor) 80 Mg Tab 80 MG PO DAILY, 0 Refills Furosemide (Lasix) 80 Mg Tab 80 MG PO BID, TAB Glyburide (Micronase) 5 Mg Tab 5 MG PO DAILYBB, TAB Insulin Detemir (Levemir) 1,000 Units/10 Ml Inj 25 UNITS SQ BID Insulin Human Regular (Novolin R) 100 Units/1 Ml Inj 3 UNITS SQ BREAKFAST&JOHNIE MEALS TAKE 3 UNITS SQ BEFORE BREAKFAST AND EVENING MEALS. Isosorbide Mononitrate Ext Rel (Imdur Ext Rel) 30 Mg Ertab 15 MG PO QAM, TAB 1/2 TABLET DOSE Levothyroxine Sodium (Synthroid) 50 Mcg Tab 50 MCG PO DAILY, TAB Losartan Potassium (Cozaar) 25 Mg Tab 25 MG PO DAILY, TAB Meclizine HCl (Meclizine 25) 25 Mg Tab 25 MG PO TID PRN for dizziness Metolazone (Zaroxolyn) 2.5 Mg Tab 2.5 MG PO WK, TAB TAKE ON SUNDAYS Metoprolol Succinate (Toprol Xl) 25 Mg Tab 25 MG PO BID, TAB Sertraline HCl (Sertraline HCl) 100 Mg Tab 100 MG PO DAILY Admission Information HPI (per Admitting provider): Patient is a 66 yr male with PMH of DM II, Hypoglycemia associated autonomic failure, ICD with EF: 20% S/P ICD placement, CAD S/P Stent in 2013, CKD III, Hypothyroidism, Depression, anxiety, chronic ambulatory dysfunction, diabetic vasculopathy s/p L BKA and multiple amputations of fingers and other problems presents with history of sudden onset of lethargy which was noticed by his spouse today and she called 911 and was brought to the hospital for further evaluation as per the ED staff. History is limited secondary to patient's AMS. Patient states he remembers that " I might have spaced out for 2 hours" and was unsure about the events or the timing. No family member is available at bedside. Patient is currently oriented X3 and denies any fall, head trauma, LOC , headache, weakness, numbness, change in vision, double/blurry vision, vertigo , slurred speech, facial deformity, bowel/bladder incontinence. He states he has chronic SOB on exertion and intermittent dizziness. Denies any history of chest pain, SOB, orthopnea, PND, cough, wheezing, fever, chills, nausea, vomiting, abdominal pain, diarrhea, dysuria. Physical Exam (per Admitting): General Appearance: no apparent distress, + obese Head: normocephalic, atraumatic Eyes: normal inspection, PERRL, EOMI, sclerae normal ENT: normal ENT inspection, hearing grossly normal Neck: supple, no JVD, trachea midline Respiratory/Chest: lungs clear, no respiratory distress, no accessory muscle use, + decreased breath sounds Cardiovascular: regular rate, rhythm, no murmur, + pertinent finding (1+ RLE edema) Abdomen/GI: normal bowel sounds, non tender, soft, + pertinent finding ( Obese) Back: normal inspection Extremities/Musculoskelatal: normal inspection, + pertinent finding (Trace edema RLE, L BKA, RUE finger Wound oozing pus) Neurologic/Psych: reporting consultant II-XII nml as tested, no motor/sensory deficits, alert , normal mood/affect, oriented x 3, + pertinent finding (RLE BKA, exam is limited) Skin: normal color, + pertinent finding (Multiple scatch wounds on RLE) Hospital Course This is a 66 year old male with a PMH of uncontrolled DM2, CAD s/p stenting in 2014, ischemic cardiomyopathy with LVEF of ~ 20%, CKD stage 3, 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 with chronic ambulatory issues; using a walker at baseline, hypothyroidism, depression/anxiety, multiple finger amputations presents due to infection of R 3rd finger Sepsis secondary to osteomyelitis infection of the R third finger 06/28 patient is tolerating oral antibiotics No pain, no other needs at this time okay with home health will d/c home today 06/27 s/p amputation and debridement pain controlled; wound healing multiple bacterial growing on cultures; MSSA, Prevotella, Morganella, Enterococcus Faecalis appreciate ortho input; no further surgical intervention for now - outpatient f/ u appreciate ID input - change to Cipro and Augmentin for 2 weeks - outpatient f/u wound care - continue outpatient wound care will d/c home if tolerating oral antibiotics on 06/28 DM2 poorly controlled with an A1c = 9.2% multiple amputations due to neuropathy/vasculopathy; hold oral agents while inpatient will need tighter control as an outpatient diabetic education and glycemic control appreciated Ischemic cardiomyopathy Last EF: 20% S/P ICD placement No signs of fluid overload stable Episode of NSVT non sustained v tach noted in tele pt did not had any symptoms appreciate cardiology input- continue b-rosa monitor electrolytes CAD s/p stenting stents placed in 2013 continue aspirin, Plavix, b-rosa CKD stage 3 creatinine stable Hypothyroidism cont. Synthroid Depression/Anxiety continue Zoloft DVT ppx subq heparin FULL CODE Total time spent on discharge = 50 minutes This includes examination of the patient, discharge planning, medication reconciliation, and communication with other providers. Discharge Instructions Please follow-up with Dr. Bond at [facility] on June 30 at 10:45AM * Take Augmentin twice a day for two weeks (antibiotic) * Take Cipro twice a day for two weeks (antibiotic) * You will need tighter control of your blood sugars - your Ha1c is >9%
[2017-06-28 10:29] VITALS: BP 150/100; PULSE 66; TEMP 36.4; O2SAT 95
--- NOTE | 2017-06-28 11:56 | Pharmacy Progress Note ---
Pharmacist Stroke Counseling Date of Service Jun 28, 2017. Scope Pharmacy has been consulted to provide medication discharge counseling for this patient admitted with ischemic stroke/ transient ischemic attack as per the Pharmacist Discharge Counseling for Stroke Patients Protocol. Medications on Discharge New Medications: Amoxicillin & Pot Clavulanate (Amoxicillin/Clavulanate P) 1 Tab Tab 875 MG PO BIDM for 14 Days, #28 TAB Ciprofloxacin (Ciprofloxacin HCl) 500 Mg Tab 500 MG PO BID for 14 Days, #28 TAB Clopidogrel Bisulfate (Clopidogrel) 75 Mg Tab 75 MG PO QAM for 30 Days, #30 TAB Potassium Chloride (Klor-Con M20) 20 Meq Tabcr 20 MEQ PO QAM for 30 Days, #30 TABS Continued Medications: Albuterol Sulfate (Proair Respiclick) 108 Mcg/Act Aer 2 PUFFS INH Q4 PRN for SOB/Wheezing Allopurinol (Zyloprim) 100 Mg Tab 300 MG PO DAILY, TAB Aspirin (Aspirin Ec) 81 Mg Tab 81 MG PO DAILY Atorvastatin (Lipitor) 80 Mg Tab 80 MG PO DAILY, 0 Refills Furosemide (Lasix) 80 Mg Tab 80 MG PO BID, TAB Glyburide (Micronase) 5 Mg Tab 5 MG PO DAILYBB, TAB Insulin Detemir (Levemir) 1,000 Units/10 Ml Inj 25 UNITS SQ BID Insulin Human Regular (Novolin R) 100 Units/1 Ml Inj 3 UNITS SQ BREAKFAST&JOHNIE MEALS TAKE 3 UNITS SQ BEFORE BREAKFAST AND EVENING MEALS. Isosorbide Mononitrate Ext Rel (Imdur Ext Rel) 30 Mg Ertab 15 MG PO QAM, TAB 1/2 TABLET DOSE Levothyroxine Sodium (Synthroid) 50 Mcg Tab 50 MCG PO DAILY, TAB Losartan Potassium (Cozaar) 25 Mg Tab 25 MG PO DAILY, TAB Meclizine HCl (Meclizine 25) 25 Mg Tab 25 MG PO TID PRN for dizziness Metolazone (Zaroxolyn) 2.5 Mg Tab 2.5 MG PO WK, TAB TAKE ON SUNDAYS Metoprolol Succinate (Toprol Xl) 25 Mg Tab 25 MG PO BID, TAB Sertraline HCl (Sertraline HCl) 100 Mg Tab 100 MG PO DAILY Action The above medications for stroke treatment/prophylaxis, have been reviewed in detail with the patient prior to discharge. This includes indication, common adverse reactions, drug interactions, and medication administration. Outcome The patient has demonstrated understanding of the medications. Please note, they are aware that the pharmacist will call them within 72 hours post-discharge to confirm that the appropriate medications are being taken and answer any further medication related questions the patient might have at that time. Contact information Individual to be contacted: Rogelio (patient) Phone number: patient requested to call 's cell (as patient lost his phone recently). However, patient did not know the number off hand. RN to clarify number when arrives then call pharmacy. Best time to call: morning Additional comments: - Discussed new medication of clopidogrel in detail. Patient noted he does not take PPI's as an outpatient and therefore risk for DDI w omeprazole is minimal - Patient's was not present for counseling as she had not yet arrived at the hospital to pick the patient up - Patient was also sent home with two po antibiotics 2nd osteomyelitis with multiple pathogens s/p finger amputation this admission Thank you for allowing pharmacy to be involved in the care of this patient. Please call [phone] or [phone] with any additional questions
[2017-06-28 15:44] VITALS: O2SAT 95
--- NOTE | 2017-06-28 18:25 | Infectious Disease Progress Nt ---
Progress Note Date of Service Jun 28, 2017. Subjective Pt evaluation today including: conversation w/ patient, physical exam, chart review, lab review, review of studies, conversation w/ campaign consultant, review of inpatient medication list Patient offering no new complaints today. He is eager to go home. No fever. Pain controlled. Tolerating antibiotics. All Other Systems: Reviewed and Negative Medications Current Inpatient Medications Medications (Trade) Dose Ordered Sig/Ifeanyi Route Start Time Stop Time Status Last Admin Dose Admin Miscellaneous Information (Pharmacist Discharge Med Rec Consult) 1 ea UD PRN N/A 06/20/17 02:45 07/20/17 02:44 Heparin Sodium (Porcine) (Heparin Sq 5000 Unit/0.5ml) 5,000 unit Q8 SQ 06/20/17 06:00 07/20/17 05:59 Future Hold 06/23/17 14:09 5,000 UNIT Acetaminophen (Tylenol Tab) 650 mg Q4H PRN PO 06/20/17 02:45 07/20/17 02:44 Allopurinol (Zyloprim Tab) 300 mg DAILY PO 06/20/17 09:00 07/20/17 08:59 06/28/17 07:28 300 MG Aspirin (Ecotrin Tab) 81 mg DAILY PO 06/21/17 09:00 07/21/17 08:59 Future Hold 06/23/17 08:17 81 MG Atorvastatin Calcium (Lipitor Tab) 80 mg DAILY PO 06/20/17 09:00 07/20/17 08:59 06/28/17 07:29 80 MG Furosemide (Lasix Tab) 80 mg BID17 PO 06/20/17 09:00 07/20/17 08:59 Future Hold 06/22/17 16:58 80 MG Isosorbide Mononitrate (Imdur Ext Rel Tab) 15 mg QAM PO 06/20/17 09:00 07/20/17 08:59 06/28/17 07:29 15 MG Levothyroxine Sodium (Synthroid Tab) 50 mcg DAILYBB PO 06/20/17 06:00 07/20/17 05:59 06/28/17 06:08 50 MCG Metoprolol Succinate (Toprol Xl Tab) 25 mg BID PO 06/20/17 09:00 07/20/17 08:59 06/28/17 07:28 25 MG Sertraline HCl (Zoloft Tab) 100 mg DAILY PO 06/20/17 09:00 07/20/17 08:59 06/28/17 07:28 100 MG Insulin Aspart (novoLOG ASPART) SLIDING SCALE If C... ACHS SC 06/20/17 07:00 07/20/17 06:59 06/28/17 17:23 23 UNITS Glucose (Glucose 40% Gel) 15-30 GRAMS 15 GRAMS... UD PRN PO 06/20/17 03:00 07/20/17 02:59 Glucose (Glucose Chew Tab) 4-8 Tablets 4 Tabl... UD PRN PO 06/20/17 03:00 07/20/17 02:59 06/24/17 06:55 4 TABS Dextrose (Dextrose 50% 50ML Syringe) 25-50ML OF 50% DW IV FOR... UD PRN IV 06/20/17 03:00 07/20/17 02:59 Glucagon (Glucagon Inj) 1 mg UD PRN SQ 06/20/17 03:00 07/20/17 02:59 Albuterol Sulfate (Ventolin 0.083% 2.5MG/3ML Neb) 2.5 mg Q6R PRN INH 06/20/17 03:15 07/20/17 03:14 Promethazine HCl 12.5 mg/Sodium Chloride 50.5 ml @ 204 mls/hr Q6H PRN IV 06/20/17 04:45 07/20/17 04:44 Clopidogrel Bisulfate (plAVix TAB) 75 mg QAM PO 06/21/17 09:00 07/21/17 08:59 Future Hold 06/23/17 08:17 75 MG Miscellaneous Information (Consult Glycemic Management Pharmacy) 1 ea UD PRN N/A 06/21/17 13:15 07/21/17 13:14 Insulin Detemir (Levemir Flexpen/ FlexTouch) PLEASE SEE PROTOCOL TEXT BID SQ 06/21/17 21:00 07/21/17 20:59 Future hold 06/28/17 08:09 15 UNITS Potassium Chloride (Klor-Con Tab) 20 meq QAM PO 06/23/17 09:00 07/23/17 08:59 06/28/17 07:28 20 MEQ Amoxicillin/ Clavulanate Potassium (Augmentin Tab) 875 mg BIDM PO 06/27/17 17:00 08/08/17 16:59 06/28/17 16:58 875 MG Ciprofloxacin (Cipro Tab) 500 mg BID PO 06/27/17 21:00 08/08/17 20:59 06/28/17 07:29 500 MG Objective Vital Signs Date Time Temp Pulse Resp B/P (MAP) Pulse Ox O2 Delivery O2 Flow Rate FiO2 06/28/17 15:44 95 Room Air 06/28/17 10:29 36.4 66 20 95 Room Air 06/28/17 08:00 Room Air 06/28/17 07:07 36.4 66 20 150/100 (117) 95 06/28/17 00:46 36.6 67 20 127/78 (94) 95 Room Air 06/28/17 00:00 Room Air Physical Exam General Appearance: WD/WN, no apparent distress Eyes: normal inspection, EOMI, sclerae normal ENT: normal ENT inspection, pharynx normal Neck: supple, no adenopathy, thyroid normal, trachea midline Respiratory/Chest: chest non-tender, lungs clear, normal breath sounds, no respiratory distress Cardiovascular: regular rate, rhythm, no gallop, no murmur Abdomen: normal bowel sounds, non tender, soft, no organomegaly Extremities: non-tender, no calf tenderness Neurologic/Psychiatric: alert, oriented x 3 Skin: normal color, no rash, + pertinent finding (Surgical dressing intact) Lymphatic: no adenopathy Laboratory Results Last 24 Hours Test 06/27/17 19:57 06/28/17 06:14 06/28/17 07:24 06/28/17 11:20 Bedside Glucose 130 mg/dl 89 mg/dl 115 mg/dl White Blood Count 6.32 K/uL Red Blood Count 4.68 M/uL Hemoglobin 12.6 g/dL Hematocrit 37.6 % Mean Corpuscular Volume 80.3 fL Mean Corpuscular Hemoglobin 26.9 pg Mean Corpuscular Hemoglobin Concent 33.5 g/dl RDW Standard Deviation 48.1 fL RDW Coefficient of Variation 16.6 % Platelet Count 231 K/uL Mean Platelet Volume 8.9 fL Sodium Level 140 mmol/L Potassium Level 4.0 mmol/L Chloride Level 108 mmol/L Carbon Dioxide Level 25 mmol/L Anion Gap 7.0 mmol/L Blood Urea Nitrogen 28 mg/dl Creatinine 1.29 mg/dl Est Creatinine Clear Calc Drug Dose 71.1 ml/min Estimated GFR () 66.5 Estimated GFR (Non- 57.4 BUN/Creatinine Ratio 21.6 Random Glucose 93 mg/dl Calcium Level 9.2 mg/dl Test 06/28/17 16:26 Bedside Glucose 232 mg/dl Assessment and Plan 66-year-old male with necrotic right 3rd finger infection with osteomyelitis with sepsis and encephalopathy in the setting of subacute [employer] infarct, now status post amputation with cultures growing Enterococcus, Staph aureus, Morganella, and Prevotella. Patient can be transitioned to oral antibiotics and would recommend combination of Augmentin and ciprofloxacin. Recommend at least 2 weeks of therapy until follow-up with wound care.
--- NOTE | 2017-06-30 14:23 | Pharmacy Progress Note ---
Pharmacist Post D/C Phone Note Date of phone call: Jun 30, 2017. The patient and/or patient credit resolution representative(s) were unable to be reached for a follow-up phone call within the 72 hour time frame. Discharge counseling pharmacist contact information has already been provided to the patient should questions arise. Thank you for allowing us to be involved in the care of this patient.
== END 2017-06-28 18:00 | disposition home or self-care (01) | DRG 853 ==
LOC: EDBD 22:55 → C.EDA 22:56 → C.2E 06-20 02:47 → EDBEDREQ 06-20 02:51 → ENRESERV 06-20 03:08 → C.MS2W 06-26 11:47 → ENRESERV 06-26 12:13
PROVIDERS: ADMIT Internal Medicine; ATTEND Family Medicine
PROC: 0X6S0Z0 Detachment at Right Ring Finger, Complete, Open Approach (ICD-10-PCS; principal; 2017-06-24 09:00)
DX: A41.9 Sepsis, unspecified organism (principal); G93.40 Encephalopathy, unspecified; I63.9 Cerebral infarction, unspecified; I50.22 Chronic systolic (congestive) heart failure; L98.496 Non-pressure chronic ulcer of skin of other sites with bone involvement without evidence of necrosis; I11.0 Hypertensive heart disease with heart failure; I25.10 Atherosclerotic heart disease of native coronary artery without angina pectoris; N18.3 Chronic kidney disease, stage 3 (moderate); L08.9 Local infection of the skin and subcutaneous tissue, unspecified

== ENCOUNTER 2017-08-19 09:55 | Inpatient (IN) | payer BC, OTHER ==
[~2017-08-19] VITALS: Ht 177.8 cm; Wt 120.2 kg
[2017-08-19] VITALS (13 sets, daily range): BP systolic 127–160; BP diastolic 70–93; PULSE 74–96; TEMP 36.3–36.8; O2SAT 92–100; Ht 177.8 cm; Wt 120.2 kg
[~2017-08-19 09:55] MED LIST changes: +ALBU18002 INH; +AMOX1TAB43 PO; +CPR500 PO; +GLYB5TAB8 PO; +MCRK20 PO; +MECL-91 PO; +PLV75 PO
[2017-08-19] MEDS ORDERED: GLUCOSE 40% GEL 15 GM TUBE ONE (10:03)
[2017-08-19] MEDS ORDERED: GLUCAGON FOR INJ 1 MG VIAL ONE (10:03)
[2017-08-19] MEDS ORDERED: GLUCOSE 40% GEL 15 GM TUBE PO STA (10:09)
[2017-08-19] MEDS ORDERED: DEXTROSE 50% 50 ML SYR IV STA (10:09)
[2017-08-19] MEDS ORDERED: DEXTROSE 50% 50 ML SYR ONE (10:10)
[2017-08-19 10:29] LABS: ISTAT CREATININE 1.1 mg/dl (0.6-1.3); ISTAT HEMOGLOBIN 13.6 g/dl (14.0-18.0); ISTAT IONIZED CALCIUM 1.16 mmol/l (1.12-1.32)
[2017-08-19 10:33] LABS: BASO % 0.3 %; BASO ABS # 0.03 K/uL (0-0.2); COMPLETE YES; EOS % 0.3 %; HEMATOCRIT 40.8 % (42-52); IG% 0.5 %; LYMPH % 8.5 %; LYMPH ABS # 0.83 K/uL (1.2-3.4); MEAN CELL VOLUME 83.1 fL (80-100); MEAN CORPUSCULAR HEMOGLOBIN 27.9 pg (25-34); MEAN CORPUSCULAR HGB CONC 33.6 g/dl (32-36); MEAN PLATELET VOLUME 9.3 fL (7.4-10.4); MONO % 5.7 %; NEUT % 84.7 %; PLATELET COUNT 270 K/uL (130-400); RED BLOOD COUNT 4.91 M/uL (4.7-6.1)
[2017-08-19 10:44] LABS: PARTIAL THROMBOPLASTIN RATIO 1.1; PROTHROMBIN TIME (PATIENT) 10.9 SECONDS (9.0-12.0)
[2017-08-19] MEDS ORDERED: VANCOMYCIN 1GM/270ML NSS IV STA (10:44)
[2017-08-19] MEDS ORDERED: CEFEPIME IV 2,000 MG in DEXTROSE 5% 100ML 100 ML IV STA (10:44)
[2017-08-19] MEDS ORDERED: SODIUM CHLORIDE 0.9% 1000ML 1,000 ML IV STA ×2 (10:44→11:06)
[2017-08-19 10:51] LABS: ARTERIAL BLD GAS O2 SATURATION 95.6 % (90-95); ARTERIAL BLOOD GAS BASE EXCESS -0.3 mEq/L (-9-1.8); ARTERIAL BLOOD GAS HCO3 27 mmol/L (19-24); ARTERIAL BLOOD GAS PO2 82 mm/Hg (80-95); ARTERIAL BLOOD GAS pH 7.32 (7.35-7.45)
[2017-08-19 10:53] LABS: ALLEN TEST POS (POS)
[2017-08-19 11:14] LABS: MANUAL MICROSCOPIC REQUIRED? NO; REVIEW REQ? NO; URINE APPEARANCE CLEAR (CLEAR); URINE BILIRUBIN NEG (NEG); URINE COLOR YELLOW; URINE NITRITE NEG (NEG); URINE SPECIFIC GRAVITY 1.021 (1.000-1.030); UROBILINOGEN NEG (NEG)
--- NOTE | 2017-08-19 11:20 | DIAGNOSTIC IMAGING REPORT ---
CHEST ONE VIEW PORTABLE HISTORY: Altered mental status. Short of breath. COMPARISON: Chest 06/20/2017. FINDINGS: No pneumothorax. Healing right lateral mild displaced rib fracture. Trace right pleural effusion. Left-sided pacemaker. The heart remains mildly enlarged. There is mild interstitial and vascular thickening which has slightly progressed. This likely represents developing pulmonary edema. Hazy appearance the right lung base. IMPRESSION: 1. Cardiomegaly with developing mild interstitial pulmonary edema. 2. Healing right eighth rib fracture. No pneumothorax. 3. Small right pleural effusion. There is also a small right basilar density which could represent atelectasis, layering pleural fluid, or pneumonia. Electronically signed by: Man Hamlin M.D. 08/19/2017 11:19 AM Dictated Date/Time: 08/19/2017 11:12 AM
[2017-08-19 11:26] LABS: ALKALINE PHOSPHATASE 117 U/L (45-117); ALT/SGPT 25 U/L (12-78); AST/SGOT 19 U/L (15-37); BLOOD UREA NITROGEN 22 mg/dl (7-18); CALCIUM 9.1 mg/dl (8.5-10.1); CARBON DIOXIDE 28 mmol/L (21-32); CHLORIDE 109 mmol/L (98-107); CREATININE 1.05 mg/dl (0.60-1.40)
[2017-08-19 11:31] LABS: GLUCOSE 37 mg/dl (70-99)
[2017-08-19 11:32] LABS: POTASSIUM 3.9 mmol/L (3.5-5.1); SODIUM 142 mmol/L (136-145)
[2017-08-19] MEDS ORDERED: SODIUM CHLORIDE 0.9% 1000ML 1,000 ML IV SCH (12:13)
[2017-08-19] MEDS ORDERED: NITROGLYCERIN 0.4 MG SL PER TAB CHARGE SL PRN ×2 (12:15→17:15)
[2017-08-19] MEDS ORDERED: ACETAMINOPHEN 325 MG TAB PO PRN ×2 (12:15→17:15)
[2017-08-19] MEDS ORDERED: ONDANSETRON INJ 2 MG/ML 2 ML VIAL IV PRN ×2 (12:15→17:15)
[2017-08-19] MEDS ORDERED: MECLIZINE HCL 12.5 MG TAB PO PRN (12:15)
[2017-08-19] MEDS ORDERED: MoRPHine SULFATE 2 MG/ML CARP IV PRN (12:15)
[2017-08-19] MEDS ORDERED: VANCOMYCIN CONSULT ACTIVE PRN (12:45)
[2017-08-19] MEDS ORDERED: PIPERACILL/TAZOBAC CONSULT ACTIVE PRN (12:45)
--- NOTE | 2017-08-19 13:49 | DIAGNOSTIC IMAGING REPORT ---
HEAD CT NONCONTRAST CT DOSE: HISTORY: Trauma. eval for bleed TECHNIQUE: Multiaxial CT images of the head were performed without the use of intravenous contrast. Automated exposure control was utilized for this study. A dose lowering technique was utilized adhering to the principles of ALARA. Comparison: Head CT 06/20/2017. Findings: The paranasal sinuses and mastoid air cells are clear. The calvarium and skull base are intact. There is no mass, hematoma, midline shift, acute infarct. White matter hypodensity is nonspecific but suggestive of microvascular ischemic change. The ventricles and sulci demonstrate mild age-related involutional changes. Old infarcts within the right basal ganglia. Impression: No acute intracranial abnormality. 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 Electronically signed by: Man Hamlin M.D. 08/19/2017 1:47 PM Dictated Date/Time: 08/19/2017 1:44 PM
--- NOTE | 2017-08-19 13:52 | DIAGNOSTIC IMAGING REPORT ---
CERVICAL SPINE CT CT DOSE: 1558.21 mGy.cm HISTORY: Neck pain. eval for fx TECHNIQUE: Multiaxial CT images of the cervical spine were performed and reformatted in the sagittal and coronal plane without the use of contrast. A dose lowering technique was utilized adhering to the principles of ALARA. COMPARISON: None. FINDINGS: No fractures. No subluxation. Prevertebral soft tissues and the C1-C2 interval are intact. No pneumothorax. Moderate degenerative disc disease at C6-C7. Left-sided pacemaker wires are identified. Interlobular septal thickening within the lung apices suggestive of pulmonary edema. IMPRESSION: 1. No fractures within the cervical spine. 2. Mild pulmonary edema seen at the lung apices. Electronically signed by: Man Hamlin M.D. 08/19/2017 1:51 PM Dictated Date/Time: 08/19/2017 1:48 PM
[2017-08-19] MEDS ORDERED: DEXTROSE 50% 50 ML SYR IV PRN (14:15)
[2017-08-19] MEDS ORDERED: GLUCAGON FOR INJ 1 MG VIAL SQ PRN (14:15)
[2017-08-19] MEDS ORDERED: GLUCOSE 40% GEL 15 GM TUBE PO PRN (14:15)
[2017-08-19] MEDS ORDERED: PIPERACILL/TAZOBAC IV 4.5 GM in DEXTROSE 5% 100ML 100 ML IV ONE (14:45)
--- NOTE | 2017-08-19 14:51 | Pharmacy Progress Note ---
Pharmacy Abx Dose Short Note Date of Service Aug 19, 2017. Assessment & Plan Assessment 66 year old male receiving VANC/ZOSYN for treatment of bone/joint infection/ septic shock. Cultures pending. Day # 1 of antimicrobial therapy. Pertinent PMH: Recent hospital stays, recent ABXs, multiple amputations, diabetes, CKD Plan Vancomycin * VANC 1 gram IV x 1 in ED * P'kinetics: Est Vd~0.7L/kg, Ke~0.0791hr-1, T1/2~9 hrs * MODIFIED LOADING DOSE: Vanc 1750mg (to equal ~22mg/kg)--in addition to Vanc 1 gram in ED * MAINTENANCE DOSE: Vanc 1500mg (~12mg/kg in setting of morbid obesity) IV every 12 hours * Goal trough level: 15 to 20 mcg/mL * VANC Trough @ Css prior to 08/21/17 1300 dose. Zosyn: 4.5 grams IV x 1, then 4.5 grams IV CI every 8 hours for est CrCL > 20mL /min in setting of obesity and severe illness. Pharmacy will continue to follow and will adjust dose/frequency as necessary. Thank you.
[2017-08-19] MEDS ORDERED: VANCOMYCIN INJ 1,750 MG in SODIUM CHLORIDE 0.9% 500ML 500 ML IV ONE (15:00)
[2017-08-19] MEDS: GLUCOSE 10 TABS/TUBE PO PRN (15:09)
--- NOTE | 2017-08-19 15:52 | Critical Care Consultation ---
Critical Care Consultation Date of Consultation: Aug 19, 2017. Attending Physician: Mihir Stevens M.D. Reason for Consultation: Hypoglycemia and hypertension. History of Present Illness Dear Dr. Van: Thank you for your kind referral of Mr. Koroma to critical care service. This is 66-year-old gentleman with a history of poorly controlled diabetes, multiple amputation due to peripheral arterial disease and diabetes including multiple digits in the upper extremities and BKA on the left. History of chronic kidney disease, Peripheral neuropathy secondary to diabetes mellitus, history of gout, coronary artery disease status post stenting in 2013, cardiomyopathy with EF of 15% status post defibrillator 2 years ago, the patient had a history of osteomyelitis in the past admitted to the hospital with sepsis in October 2016 as well as in June 2017. The patient was discharged home and today he was found down on the floor by his where the patient was confused and unable to answer questions properly. His fingerstick at that time was 200. EMS arrived and checked his blood sugar again which showed only in the 30s and the patient was given additional glucose. The patient was transferred to the emergency room where he was found to be hypotensive with a blood pressure of 60 and he was started on IV fluid and received 3 L of IV fluid. The patient started empirically on antibiotics due to his history of a similar light is on multiple medications. The patient admitted to the ICU for further management due to the above. When I interviewed the patient the patient was mentating very well, he was answering questions properly, he does have orthopnea and sleeps in a recliner, he does not use oxygen at home. He denies any chest pain or shortness of breath at rest. Patient has no nausea or vomiting and no abdominal pain. He has no sensation in his right lower extremity. The patient denies any altered mental status and he is very comfortable answer questions properly. His blood pressure registered in the ICU at 147/74. The patient with a saturation was 97 % on nasal cannula and even without it. The rest of the patient's review of system was unremarkable. The patient literally asymptomatic. Family History Diabetes mellitus MOTHER FH: CAD (coronary artery disease) FATHER Social History Smoking Status: Never Smoker Drug Use: none Marital Status: Housing Status: lives with family Occupation Status: disabled Allergies Coded Allergies: Gemfibrozil (Verified Allergy, Unknown, 06/19/17) Home Medications Scheduled Allopurinol (Zyloprim), 300 MG PO DAILY Amoxicillin & Pot Clavulanate (Amoxicillin/Clavulanate P), 875 MG PO BIDM Aspirin (Aspirin Ec), 81 MG PO DAILY Atorvastatin (Lipitor), 80 MG PO DAILY Ciprofloxacin (Ciprofloxacin HCl), 500 MG PO BID Clopidogrel Bisulfate (Clopidogrel), 75 MG PO QAM Furosemide (Lasix), 80 MG PO BID Glyburide (Micronase), 5 MG PO DAILYBB Insulin Detemir (Levemir), 25 UNITS SQ BID Insulin Human Regular (Novolin R), 3 UNITS SQ BREAKFAST&[employer] Isosorbide Mononitrate Ext Rel (Imdur Ext Rel), 15 MG PO QAM Levothyroxine Sodium (Synthroid), 50 MCG PO DAILY Losartan Potassium (Cozaar), 25 MG PO DAILY Metolazone (Zaroxolyn), 2.5 MG PO WK Metoprolol Succinate (Toprol Xl), 25 MG PO BID Potassium Chloride (Klor-Con M20), 20 MEQ PO QAM Sertraline HCl (Sertraline HCl), 100 MG PO DAILY Scheduled PRN Albuterol Sulfate (Proair Respiclick), 2 PUFFS INH Q4 PRN for SOB/Wheezing Meclizine HCl (Meclizine 25), 25 MG PO TID PRN for dizziness Current Inpatient Medications Current Inpatient Medications Medications (Trade) Dose Ordered Sig/Ifeanyi Route Start Time Stop Time Status Last Admin Dose Admin Allopurinol (Zyloprim Tab) 300 mg DAILY PO 08/20/17 09:00 09/19/17 08:59 UNV Aspirin (Ecotrin Tab) 81 mg DAILY PO 08/20/17 09:00 09/19/17 08:59 UNV Clopidogrel Bisulfate (plAVix TAB) 75 mg QAM PO 08/20/17 09:00 09/19/17 08:59 UNV Levothyroxine Sodium (Synthroid Tab) 50 mcg DAILY PO 08/20/17 09:00 09/19/17 08:59 UNV Meclizine HCl (Antivert Tab) 25 mg TID PRN PO 08/19/17 12:15 09/18/17 12:14 Sertraline HCl (Zoloft Tab) 100 mg DAILY PO 08/20/17 09:00 09/19/17 08:59 UNV Non-Formulary Medication (Albuterol Sulfate (Proair Respiclick)) 2 puffs Q4 PRN INH 08/19/17 12:15 09/18/17 12:14 UNV Vancomycin HCl 1500 mg/Sodium Chloride 530 ml @ 200 mls/hr Q12H IV 08/20/17 01:00 10/01/17 00:59 Piperacillin Sod/ Tazobactam Sod 4.5 gm/Dextrose 120 ml @ 30 mls/hr Q8H IV 08/19/17 20:00 09/30/17 19:59 Insulin Aspart (novoLOG ASPART) SLIDING SCALE G... ACHS SC 08/19/17 16:00 09/18/17 15:59 UNV Vancomycin HCl (Consult) 1 ea UD PRN N/A 08/19/17 12:45 09/18/17 12:44 Piperacillin Sod/ Tazobactam Sod (Consult) 1 ea UD PRN N/A 08/19/17 12:45 09/18/17 12:44 Heparin Sodium (Porcine) (Heparin Sq 5000 Unit/0.5ml) 5,000 unit Q8 SQ 08/19/17 14:00 09/18/17 13:59 UNV Pantoprazole Sodium (Protonix Tab) 40 mg QAM PO 08/20/17 09:00 09/19/17 08:59 UNV Glucose (Glucose 40% Gel) 15-30 GRAMS 15 GRAMS... UD PRN PO 08/19/17 14:15 09/18/17 14:14 Glucose (Glucose Chew Tab) 4-8 Tablets 4 Tabl... UD PRN PO 08/19/17 14:15 09/18/17 14:14 08/19/17 15:09 4 TABS Dextrose (Dextrose 50% 50ML Syringe) 25-50ML OF 50% DW IV FOR... UD PRN IV 08/19/17 14:15 09/18/17 14:14 Glucagon (Glucagon Inj) 1 mg UD PRN SQ 08/19/17 14:15 09/18/17 14:14 Piperacillin Sod/ Tazobactam Sod 4.5 gm/Dextrose 120 ml @ 200 mls/hr NOW ONCE IV 08/19/17 14:45 08/19/17 15:20 08/19/17 15:06 200 MLS/HR Vancomycin HCl 1750 mg/Sodium Chloride 535 ml @ 200 mls/hr NOW ONCE IV 08/19/17 15:00 08/19/17 17:40 Review of Systems Constitutional: No fever, No chills, No sweats, No weight loss, No weakness, No fatigue, No problem reported Eyes: No worsening of vision, No eye pain, No redness, No discharge, No diplopia, No problem reported ENT: No hearing loss, No unusual epistaxis, No nasal symptoms, No sore throat, No tinnitus, No dental problems, No trouble swallowing, No problem reported Respiratory: No cough, No sputum, No wheezing, No shortness of breath, No dyspnea on exertion, No dyspnea at rest, No hemoptysis, No problem reported Cardiovascular: No chest pain, No orthopnea, No PND, No edema, No claudication , No palpitations, No problem reported Abdomen: No pain, No nausea, No vomiting, No diarrhea, No constipation, No GI bleeding, No problem reported Musculoskeletal: No joint pain, No muscle pain, No swelling, No calf pain, No problem reported Neurologic: + problem reported (near syncope reported at home) Endocrine: + problem reported (variable glucose level) Integumentary: No rash, No itch, No new/changing skin lesions, No color change , No bleeding, No problem reported Allergic / Immunologic: No environmental allergies, No seasonal allergies, No pet sensitivities, No food allergies, No hives, No frequent infections, No poor healing, No prolonged convalescence, No problem reported Physical Exam Date Time Temp Pulse Resp B/P (MAP) Pulse Ox O2 Delivery O2 Flow Rate FiO2 08/19/17 14:02 36.3 78 20 127/73 100 Nasal Cannula 2.0 08/19/17 12:54 78 20 62/55 95 Nasal Cannula 4.0 08/19/17 12:34 78 08/19/17 12:10 36.4 84 20 78/65 95 Nasal Cannula 4.0 NIBP 08/19/17 11:39 84 24 65/33 100 Non-Rebreather 08/19/17 10:37 33.7 88 16 62/47 99 Nasal Cannula 5.0 08/19/17 10:07 83 08/19/17 10:07 88 Room Air 08/19/17 10:07 88 16 88 Room Air 08/19/17 10:06 98 Nasal Cannula 5.0 General Appearance: well-appearing, no apparent distress Eyes: PERRLA, EOMI ENT: normal throat exam Neck: trachea midline, no stridor Respiratory: rales, other (crackles at the basis) Cardiovasular: regular rate/rhythm, normal S1S2, no M/G/R Abdomen: normal bowel sounds, no rebound, no masses Upper Extremities: other (edema, BKA on the left, multiple digit amputations) Neuro: alert, oriented x 3, normal motor exam Psychiatric: normal affect Laboratory Results Last 24 Hours Test 08/19/17 10:09 08/19/17 10:15 08/19/17 10:25 08/19/17 10:37 White Blood Count 9.80 K/uL Red Blood Count 4.91 M/uL Hemoglobin 13.7 g/dL Hematocrit 40.8 % Mean Corpuscular Volume 83.1 fL Mean Corpuscular Hemoglobin 27.9 pg Mean Corpuscular Hemoglobin Concent 33.6 g/dl Platelet Count 270 K/uL Mean Platelet Volume 9.3 fL Neutrophils (%) (Auto) 84.7 % Lymphocytes (%) (Auto) 8.5 % Monocytes (%) (Auto) 5.7 % Eosinophils (%) (Auto) 0.3 % Basophils (%) (Auto) 0.3 % Neutrophils # (Auto) 8.30 K/uL Lymphocytes # (Auto) 0.83 K/uL Monocytes # (Auto) 0.56 K/uL Eosinophils # (Auto) 0.03 K/uL Basophils # (Auto) 0.03 K/uL RDW Standard Deviation 48.1 fL RDW Coefficient of Variation 15.9 % Immature Granulocyte % (Auto) 0.5 % Immature Granulocyte # (Auto) 0.05 K/uL Prothrombin Time 10.9 SECONDS Prothromb Time International Ratio 1.0 Activated Partial Thromboplast Time 28.8 SECONDS Partial Thromboplastin Ratio 1.1 Sodium Level 142 mmol/L Potassium Level 3.9 mmol/L Chloride Level 109 mmol/L Carbon Dioxide Level 28 mmol/L Anion Gap 5.0 mmol/L 13.0 mmol/L Blood Urea Nitrogen 22 mg/dl Creatinine 1.05 mg/dl Estimated GFR () 85.3 Estimated GFR (Non- 73.6 BUN/Creatinine Ratio 21.0 Random Glucose 37 mg/dl Calcium Level 9.1 mg/dl Total Bilirubin 0.6 mg/dl Direct Bilirubin 0.2 mg/dl Aspartate Amino Transf (AST/SGOT) 19 U/L Alanine Aminotransferase (ALT/SGPT) 25 U/L Alkaline Phosphatase 117 U/L Troponin I 0.025 ng/ml Total Protein 8.1 gm/dl Albumin 3.0 gm/dl Digoxin Level 0.1 ng/ml Bedside Hemoglobin 13.6 g/dl Bedside Hematocrit 40 % Bedside Sodium 143 mEq/L Bedside Potassium 6.3 mEq/L Bedside Chloride 107 mEq/L Bedside Total CO2 30 mEq/l Bedside Blood Urea Nitrogen 34 mg/dl Bedside Creatinine 1.1 mg/dl Bedside Glucose (other) 42 mg/dl Bedside Ionized Calcium (Tara) 1.16 mmol/l Bedside Glucose 126 mg/dl Arterial Blood pH 7.32 Arterial Blood Partial Pressure CO2 52 mmHg Arterial Blood Partial Pressure O2 82 mm/Hg Arterial Blood HCO3 27 mmol/L Arterial Blood Oxygen Saturation 95.6 % Arterial Blood Base Excess -0.3 mEq/L Arterial Blood Gas Delivery UNK Brent Test POS Test 08/19/17 11:00 08/19/17 11:09 08/19/17 11:15 08/19/17 11:36 Urine Color YELLOW Urine Appearance CLEAR Urine pH 5.0 Urine Specific [place] 1.021 Urine Protein 3+ Urine Glucose (UA) NEG Urine Ketones NEG Urine Occult Blood TRACE Urine Nitrite NEG Urine Bilirubin NEG Urine Urobilinogen NEG Urine Leukocyte Esterase NEG Urine WBC (Auto) 1-5 /hpf Urine RBC (Auto) 0-4 /hpf Urine Hyaline Casts (Auto) 1-5 /lpf Urine Epithelial Cells (Auto) 5-10 /lpf Urine Bacteria (Auto) NEG Potassium Level 3.8 mmol/L Bedside Lactic Acid Venous 1.75 mmol/L Bedside Glucose 98 mg/dl Test 08/19/17 14:44 08/19/17 15:00 08/19/17 15:11 Bedside Glucose 46 mg/dl 44 mg/dl Diagnostic Results I have reviewed his chest x-ray which showed pulmonary vascular congestion, cardiomegaly, small left-sided pleural effusion. The patient does have defibrillator on the left subclavian area. Assessment & Plan #1 the patient does have peripheral arterial disease which makes it difficult to measure accurate blood pressure on him. However we were able to obtain accurate blood pressure. The patient is mentating very well. This argue against hypotension in this patient. #2 poorly controlled diabetes, however his blood sugar has been reported to be in the 40s and 30s and we will confirm it with complete blood count. I do believe that this is only a lab error. #3 cardiomyopathy with EF of 20%. I would hold off on the IV fluids. The patient is not in shock while he is fully mentating and following commands is extremely unusual. #4 history of depression, gout. #5 Coronary artery disease last stent placed in 2013 and defibrillator at the same time. #6 the patient does have recurrent infectious process in the past including UTI , osteomyelitis, cellulitis, in that regard I agree with the current antibiotic until infectious process is ruled out. Plan: #1. The IV fluid. The patient started becoming more congested with bibasilar rales, chest x-ray with CHF, the patient used to take Lasix 80 mg twice a day. #2 I will restart diuresis in the morning. #3 glucose control however I will depend on the chemistry lab brother than the fingerstick itself. #4 start the patient on oral intake. #5 medication reconsultation. #6 the patient is on aspirin and Plavix, however I will start him on heparin subcutaneous for DVT prophylaxis. #7 we will check his microbiology profile. #8 monitor urine output. If it declines was started patient on diuresis. #9 I'm not sure about the episode at home point he had near syncope. We will monitor the patient for cardiac arrhythmias. His laboratory appeared reasonable and acceptable. I will check troponin although the value of it could be deceiving. #10 AM labs. #11 case discussed with the staff on rounds and details. Critical care time spent with the patient was 60 minutes.
[2017-08-19] MEDS ORDERED: INSULIN ASPART 100 UNITS/ML 3 ML PEN SC SCH (16:00)
--- NOTE | 2017-08-19 16:07 | EMERGENCY ROOM VISIT NOTE ---
History Report prepared by Airam: Adis Gallego Under the Supervision of: Dr. Baljinder Van M.D. First contact with patient: 10:06 Stated Complaint: BREATHING DIFFICULTY/AMS History of Present Illness The patient is a 65 year old male with a history of CHF and diabetes who presents to the Emergency Room via EMS with persistent altered mental status that started prior to arrival this morning. Per EMS, the patient's found the patient on the floor in their house, and the patient was incontinent of urine. The patient was found in front of the television, and it is probable that the patient fell out of his recliner. According to the patient's , the patient's blood sugar was recorded to be 200 this morning. When EMS took it, however, his blood sugar was 27. He was given IM glucagon. The blood sugar was from IV cannulation and not peripheral fingerstick. Per EMS, the patient has not been "altogether with it but will respond at points, but is sometimes not understandable". According to the patient's , the patient has had some breathing difficulties over the past few days, as well as some weakness. The patient states that he currently has no pain, but is still short of breath. He says that he is on oxygen. He denies any headaches or chest pain. Any fevers were denied on behalf of the patient. The patient's blood pressure was recorded to be 180 systolic when EMS arrived at the scene. The patient states that he does not know what kind of insulin he takes. History limited secondary to patient's mental status. Source of History: patient, spouse/significant other, EMS History Limited By: AMS Onset: Prior to arrival this morning Position: other (global - altered mental status) Symptom Intensity: not altogether with it Timing: other (persistent) Associated Symptoms: + SOB, + urinary symptoms (incontinence), + weakness, No fevers, No headache, No chest pain Note: Associated symptoms: Blood sugar dropped to 27. Patient denies any pain. Review of Systems ROS limited secondary to patient's mental status. Past Medical & Surgical Medical Problems: (1) Acute encephalopathy (2) Adjustment disorder with depressed mood (3) Biventricular ICD (implantable cardioverter-defibrillator) in place (4) CAD (coronary artery disease) (5) CHF (congestive heart failure) (6) Chronic systolic CHF (congestive heart failure) (7) Diabetic retinopathy (8) DM type 2 (diabetes mellitus, type 2) (9) Dyslipidemia (10) Gout (11) HTN (hypertension) (12) Hypothyroidism (13) Lung nodule (14) Neuropathy due to type 2 diabetes mellitus (15) Nonischemic cardiomyopathy (16) Septic shock Surgical Problems: (1) History of amputation of finger of left hand (2) History of implantable cardioverter-defibrillator (ICD) placement (3) Hx of BKA (4) S/P coronary artery stent placement Family History Diabetes mellitus MOTHER FH: CAD (coronary artery disease) FATHER Social History Drug Use: none Marital Status: Housing Status: lives with family Current/Historical Medications Scheduled Allopurinol (Zyloprim), 300 MG PO DAILY Amoxicillin & Pot Clavulanate (Amoxicillin/Clavulanate P), 875 MG PO BIDM Aspirin (Aspirin Ec), 81 MG PO DAILY Atorvastatin (Lipitor), 80 MG PO DAILY Ciprofloxacin (Ciprofloxacin HCl), 500 MG PO BID Clopidogrel Bisulfate (Clopidogrel), 75 MG PO QAM Furosemide (Lasix), 80 MG PO BID Glyburide (Micronase), 5 MG PO DAILYBB Insulin Detemir (Levemir), 25 UNITS SQ BID Insulin Human Regular (Novolin R), 3 UNITS SQ BREAKFAST&JOHN[employer]ALS Isosorbide Mononitrate Ext Rel (Imdur Ext Rel), 15 MG PO QAM Levothyroxine Sodium (Synthroid), 50 MCG PO DAILY Losartan Potassium (Cozaar), 25 MG PO DAILY Metolazone (Zaroxolyn), 2.5 MG PO WK Metoprolol Succinate (Toprol Xl), 25 MG PO BID Potassium Chloride (Klor-Con M20), 20 MEQ PO QAM Sertraline HCl (Sertraline HCl), 100 MG PO DAILY Scheduled PRN Albuterol Sulfate (Proair Respiclick), 2 PUFFS INH Q4 PRN for SOB/Wheezing Meclizine HCl (Meclizine 25), 25 MG PO TID PRN for dizziness Allergies Coded Allergies: Gemfibrozil (Verified Allergy, Unknown, 06/19/17) Physical Exam Vital Signs Date Time Temp Pulse Resp B/P (MAP) Pulse Ox O2 Delivery O2 Flow Rate FiO2 08/19/17 12:10 36.4 84 20 78/65 95 Nasal Cannula 4.0 NIBP 12/16/17 11:39 84 24 65/33 100 Non-Rebreather 08/19/17 10:37 33.7 88 16 62/47 99 Nasal Cannula 5.0 08/19/17 10:07 83 08/19/17 10:07 88 Room Air 08/19/17 10:07 88 16 88 Room Air 08/19/17 10:06 98 Nasal Cannula 5.0 Physical Exam Exam limited due to mental status. Constitutional: Vital signs reviewed. Eyes: Pupils are 3 mm and reactive bilaterally. Conjunctiva are noninjected. ENT: Pharynx is clear without erythema or exudate. Mucous membranes are dry. Neck supple without meningeal signs. Respiratory: Clear to auscultation bilaterally. Breath sounds are equal bilaterally. Cardiovascular: Regular rate and rhythm. No rubs or gallops. GI: Soft, nondistended and nontender. Bowel sounds are present. Musculoskeletal: Left BKA. Amputations of the fingers in both hands. Excoriation to the right leg without cellulitis. Integumentary: No cyanosis. Neurological: The patient is awake but confused. He is able to say his first name but unable to state where he is or what year it is. Psychiatric: Unable to assess. Medical Decision & Procedures ER Provider Diagnostic Interpretation: Radiology results as stated below per my review and the radiologist's interpretation: CHEST ONE VIEW PORTABLE HISTORY: Altered mental status. Short of breath. COMPARISON: Chest 06/20/2017. FINDINGS: No pneumothorax. Healing right lateral mild displaced rib fracture. Trace right pleural effusion. Left-sided pacemaker. The heart remains mildly enlarged. There is mild interstitial and vascular thickening which has slightly progressed. This likely represents developing pulmonary edema. Hazy appearance the right lung base. IMPRESSION: 1. Cardiomegaly with developing mild interstitial pulmonary edema. 2. Healing right eighth rib fracture. No pneumothorax. 3. Small right pleural effusion. There is also a small right basilar density which could represent atelectasis, layering pleural fluid, or pneumonia. Electronically signed by: Man Hamlin M.D. 08/19/2017 11:19 AM Dictated Date/Time: 08/19/2017 11:[address] CT DOSE: HISTORY: Trauma. eval for bleed TECHNIQUE: Multiaxial CT images of the head were performed without the use of intravenous contrast. Automated exposure control was utilized for this study. A dose lowering technique was utilized adhering to the principles of ALARA. Comparison: Head CT 06/20/2017. Findings: The paranasal sinuses and mastoid air cells are clear. The calvarium and skull base are intact. There is no mass, hematoma, midline shift, acute infarct. White matter hypodensity is nonspecific but suggestive of microvascular ischemic change. The ventricles and sulci demonstrate mild age-related involutional changes. Old infarcts within the right basal ganglia. Impression: No acute intracranial abnormality. 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 Electronically signed by: Man Hamlin M.D. 08/19/2017 1:47 PM Dictated Date/Time: 08/19/2017 1:[address] DOSE: 1558.21 mGy.cm HISTORY: Neck pain. eval for fx TECHNIQUE: Multiaxial CT images of the cervical spine were performed and reformatted in the sagittal and coronal plane without the use of contrast. A dose lowering technique was utilized adhering to the principles of ALARA. COMPARISON: None. FINDINGS: No fractures. No subluxation. Prevertebral soft tissues and the C1-C2 interval are intact. No pneumothorax. Moderate degenerative disc disease at C6-C7. Left-sided pacemaker wires are identified. Interlobular septal thickening within the lung apices suggestive of pulmonary edema. IMPRESSION: 1. No fractures within the cervical spine. 2. Mild pulmonary edema seen at the lung apices. Electronically signed by: Man Hamlin M.D. 08/19/2017 1:51 PM Dictated Date/Time: 08/19/2017 1:48 PM Laboratory Results 08/19/17 10:09 Red Blood Count 4.91, Mean Corpuscular Volume 83.1, Mean Corpuscular Hemoglobin 27.9, Mean Corpuscular Hemoglobin Concent 33.6, Mean Platelet Volume 9.3, Neutrophils (%) (Auto) 84.7, Lymphocytes (%) (Auto) 8.5, Monocytes (%) (Auto) 5.7, Eosinophils (%) (Auto) 0.3, Basophils (%) (Auto) 0.3, Neutrophils # (Auto) 8.30, Lymphocytes # (Auto) 0.83, Monocytes # (Auto) 0.56, Eosinophils # (Auto) 0.03, Basophils # (Auto) 0.03 08/19/17 10:09 08/19/17 11:09 Test 08/19/17 10:09 08/19/17 10:15 08/19/17 10:37 08/19/17 11:00 White Blood Count 9.80 K/uL (4.8-10.8) Red Blood Count 4.91 M/uL (4.7-6.1) Hemoglobin 13.7 g/dL (14.0-18.0) Hematocrit 40.8 % (42-52) Mean Corpuscular Volume 83.1 fL (80-100) Mean Corpuscular Hemoglobin 27.9 pg (25-34) Mean Corpuscular Hemoglobin Concent 33.6 g/dl (32-36) Platelet Count 270 K/uL (130-400) Mean Platelet Volume 9.3 fL (7.4-10.4) Neutrophils (%) (Auto) 84.7 % Lymphocytes (%) (Auto) 8.5 % Monocytes (%) (Auto) 5.7 % Eosinophils (%) (Auto) 0.3 % Basophils (%) (Auto) 0.3 % Neutrophils # (Auto) 8.30 K/uL (1.4-6.5) Lymphocytes # (Auto) 0.83 K/uL (1.2-3.4) Monocytes # (Auto) 0.56 K/uL (0.11-0.59) Eosinophils # (Auto) 0.03 K/uL (0-0.5) Basophils # (Auto) 0.03 K/uL (0-0.2) RDW Standard Deviation 48.1 fL (36.4-46.3) RDW Coefficient of Variation 15.9 % (11.5-14.5) Immature Granulocyte % (Auto) 0.5 % Immature Granulocyte # (Auto) 0.05 K/uL (0.00-0.02) Prothrombin Time 10.9 SECONDS (9.0-12.0) Prothromb Time International Ratio 1.0 (0.9-1.1) Activated Partial Thromboplast Time 28.8 SECONDS (21.0-31.0) Partial Thromboplastin Ratio 1.1 Estimated GFR () 85.3 Estimated GFR (Non- 73.6 BUN/Creatinine Ratio 21.0 (10-20) Calcium Level 9.1 mg/dl (8.5-10.1) Total Bilirubin 0.6 mg/dl (0.2-1) Direct Bilirubin 0.2 mg/dl (0-0.2) Aspartate Amino Transf (AST/SGOT) 19 U/L (15-37) Alanine Aminotransferase (ALT/SGPT) 25 U/L (12-78) Alkaline Phosphatase 117 U/L (45-117) Troponin I 0.025 ng/ml (0-0.045) Total Protein 8.1 gm/dl (6.4-8.2) Albumin 3.0 gm/dl (3.4-5.0) Digoxin Level 0.1 ng/ml (0.8-2.0) Bedside Hemoglobin 13.6 g/dl (14.0-18.0) Bedside Hematocrit 40 % (42-52) Bedside Sodium 143 mEq/L (135-144) Bedside Potassium 6.3 mEq/L (3.3-5.0) Bedside Chloride 107 mEq/L (101-112) Bedside Total CO2 30 mEq/l (24-31) Anion Gap 13.0 mmol/L (16-25) Bedside Blood Urea Nitrogen 34 mg/dl (7-18) Bedside Creatinine 1.1 mg/dl (0.6-1.3) Bedside Glucose (other) 42 mg/dl (70-99) Bedside Ionized Calcium (Tara) 1.16 mmol/l (1.12-1.32) Arterial Blood pH 7.32 (7.35-7.45) Arterial Blood Partial Pressure CO2 52 mmHg (35-46) Arterial Blood Partial Pressure O2 82 mm/Hg (80-95) Arterial Blood HCO3 27 mmol/L (19-24) Arterial Blood Oxygen Saturation 95.6 % (90-95) Arterial Blood Base Excess -0.3 mEq/L (-9-1.8) Arterial Blood Gas Delivery UNK Brent Test POS (POS) Urine Color YELLOW Urine Appearance CLEAR (CLEAR) Urine pH 5.0 (4.5-7.5) Urine Specific Lemmon 1.021 (1.000-1.030) Urine Protein 3+ (NEG) Urine Glucose (UA) NEG (NEG) Urine Ketones NEG (NEG) Urine Occult Blood TRACE (NEG) Urine Nitrite NEG (NEG) Urine Bilirubin NEG (NEG) Urine Urobilinogen NEG (NEG) Urine Leukocyte Esterase NEG (NEG) Urine WBC (Auto) 1-5 /hpf (0-5) Urine RBC (Auto) 0-4 /hpf (0-4) Urine Hyaline Casts (Auto) 1-5 /lpf (0-5) Urine Epithelial Cells (Auto) 5-10 /lpf (0-5) Urine Bacteria (Auto) NEG (NEG) Test 08/19/17 11:15 Bedside Lactic Acid Venous 1.75 mmol/L (0.90-1.70) Laboratory results as reviewed by me. Medications Administered Medications (Trade) Dose Ordered Sig/Ifeanyi Route Start Time Stop Time Status Last Admin Dose Admin Dextrose (Dextrose 50% 50ML Syringe) 25 ml NOW STAT IV 08/19/17 10:09 08/19/17 10:12 DC 08/19/17 10:09 12.5 ML Glucose (Glucose 40% Gel) 15 gm NOW STAT PO 08/19/17 10:09 08/19/17 10:12 DC 08/19/17 10:09 15 GM Sodium Chloride 1,000 ml @ 999 mls/hr Q1H1M STAT IV 08/19/17 10:44 08/19/17 11:44 DC 08/19/17 11:22 999 MLS/HR Vancomycin HCl (Vancomycin 1gm/ 270ml Nss) 1 gm NOW STAT IV 08/19/17 10:44 08/19/17 10:47 DC 08/19/17 12:03 1 GM Cefepime HCl 2000 mg/Dextrose 112.5 ml @ 200 mls/hr NOW STAT IV 08/19/17 10:44 08/19/17 11:17 DC 08/19/17 11:21 200 MLS/HR Sodium Chloride 1,000 ml @ 999 mls/hr Q1H1M STAT IV 08/19/17 11:06 08/19/17 12:06 DC 08/19/17 11:06 999 MLS/HR Procedure Central Venous Catheter Indication: Hypotension Catheter type: Triple-lumen catheter Location: Right IJ Verbal consent was obtained after the risks and benefits were explained, including but not limited to pneumothorax, hemothorax, vessel injury, bleeding, scarring, infection, pain, and bone/joint/nerve damage. At this time, the risks of the procedure are less than the risks of NOT performing the procedure. A time out was taken and the correct patient and site identified. The patient was placed in the Trendelenburg position and the skin was prepped in the standard fashion with chlorhexidine and full sterile drapes applied. The proper landmarks were identified with ultrasound, anesthetized with 1% lidocaine without epinephrine, and the needle was inserted through the skin in the standard fashion. The needle was carefully advanced into blood vessel lumen under ultrasound guidance. No blood return was obtained despite multiple efforts. The procedure was aborted. ECG Indication: altered mental status Rate (beats per minute): 83 Rhythm: normal sinus Findings: Q waves (Inferior), other (low voltage QRS) Change: no significant change (from June 20 2017) ED Course 0956: The patient was evaluated in room A1. A limited history and physical exam was performed. 1009: Ordered Glucose 40% Gel 15 gm PO, Dextrose 50% 50ML Syringe 25 ml IV. 1020: I reevaluated the patient and he is much more awake and alert. He is able to swallow glucose gel. He was given a half amp of D50. His potassium is 6.3 on the I-stat lab but his creatinine is 1.1. Difficult venipuncture likely secondary to hemolysis. 1042: I reevaluated the patient and his pressure is 62. His temperature is 33 rectally. 1044: Ordered Cefepime HCl 2000 mg/Dextrose 112.5 ml @ 200 mls/hr IV, Vancomycin 1gm/270ml Nss 1 gm IV, NSS 1000 ml @ 999 mls/hr IV. 1058: I reevaluated the patient and his pressure is still in the 60s. I discussed central line placement risk and benefits and he agreed. He is currently getting an IV bolus, and I ordered IV Cefepime and Vancomycin. 1110: I reevaluated the patient and he is getting a second liter of warmed saline. We are redrawing a potassium as well as lactic acid. 1119: I reevaluated the patient and his pressure is now 67 systolic. He has gotten 1 liter. 1204: I discussed the patient with Dr. Jones - communication coordinator - he says to send the patient over to the ICU and he will take it from here. He notes to not make any further attempts at the central line. 1212: I spoke with Dr. Aviles - [facility] welding rod coater. We discussed the patient and his results. The patient will be further evaluated by Dr. Aviles for further treatment. 1234: I reevaluated the patient and he has no complaints and is sitting upright , waiting to be transferred to the ICU. Medical Decision This is a 66-year-old male who presents with altered mental status. Differential diagnosis includes metabolic derangement, hypoglycemia, seizure, intracranial hemorrhage, syncope, hypercapnia, respiratory failure, sepsis. I did perform a limited focused review of portions of the patient's old chart on the electronic medical record. The patient was admitted on June 20 for sepsis secondary to right digit osteomyelitis. He was noted to have a history of hypoglycemia associated with autonomic failure. I did evaluate the patient immediately on arrival as noted above. IV access was established. The patient was placed on a continuous assistant coach. His blood sugar was 37. He was given oral glucose as he was able to swallow. He was also given IV dextrose. I did order and personally review the patient's 12- lead EKG and chest x-ray as described above. The patient was hypotensive although reported to be hypertensive in the field. He is also hypothermic. I was concerned he may have sepsis and septic shock. He does have a prior history of osteomyelitis. I did empirically treat patient with IV vancomycin and cefepime based on his previous cultures. Blood cultures were obtained prior to antibiotic treatment. He was given a bolus of normal saline IV. He was given an initial bolus of normal saline which was warned. He was placed on a warming blanket. I did order and review the patient's blood work as noted in the electronic medical record. Initial potassium is rated as high but I felt this was likely hemolysis and had it repeated. I did order a CT of the head and cervical spine. I did review the images myself as well as the radiology report as described above. There is no evidence of intracranial hemorrhage or fracture. I did reassess the patient multiple times. He can use to mentate well and only complain of being short of breath. His pulse ox was stable on nasal cannula. He did not have hypoxia on his ABG. He did remain hypotensive and so I did discuss central line placement for pressors. I did attempt a central line in the right neck but was unsuccessful despite ultrasound guidance. I initially was going to attempt venipuncture in the groin but felt that the area was too contaminated and aborted. I did call the ICU doctor and the hospitalist. The ICU doctor stated that we could send him ride over to the ICU for further care and he would attempt central line if indicated. The patient was transferred to the ICU. Medication Reconcilliation Current Medication List: was personally reviewed by me Blood Pressure Screening Patient's blood pressure: Elevated blood pressure Consults Time Called: 1200 Consulting Physician: Dr. Jones - communication coordinator Returned Call: 1204 I discussed the patient with Dr. Jones - communication coordinator - he says to send the patient over to the ICU and he will take it from here. He notes to not make any further attempts at the central line. Additional Consults: Time Called: 1210 Consulted Physician: Dr. Traci Rivera welding rod coater Returned Call: 1212 Additional Comments: I spoke with Dr. Traci Rivera welding rod coater. We discussed the patient and his results. The patient will be further evaluated by Dr. Aviles for further treatment. Impression Primary Impression: Sepsis Additional Impressions: Hypothermia Hypotension Hypoglycemia Critical Care I have personally spent 80 minutes of critical care time in the direct management of this patient. This includes bedside care, interpretation of diagnostic studies, and testing, discussion with consultants, patient, and family members, and other required patient management activities. This 80 minutes is in excess of all separately billable procedures. Scribe Attestation The scribe's documentation has been prepared under my direct and personally reviewed by me in its entirety. I confirm that the note above accurately reflects all work, treatment, procedures, and medical decision making performed by me. Departure Information Dispostion Being Evaluated By Hospitalist Problem Qualifiers Primary Impression: Sepsis Sepsis type: sepsis due to unspecified organism Qualified Codes: A41.9 - Sepsis, unspecified organism Additional Impressions: Hypothermia Encounter type: initial encounter Qualified Codes: T68.XXXA - Hypothermia, initial encounter Hypotension Hypotension type: unspecified hypotension type Qualified Codes: I95.9 - Hypotension, unspecified
[2017-08-19] MEDS: DEXTROSE 10% 1,000 ML IV SCH (17:00)
[2017-08-19] MEDS ORDERED: ENOXAPARIN 40 MG/0.4 ML SYR SQ SCH (17:15)
[2017-08-19] MEDS: INSULIN ASPART 100 UNITS/ML 3 ML PEN SC SCH (17:17)
[2017-08-19] MEDS ORDERED: DEXTROSE 10% 1,000 ML BAG ONE (17:32)
--- NOTE | 2017-08-19 19:51 | HISTORY & PHYSICAL EXAMINATION ---
DATE OF ADMISSION: 08/19/2017 CHIEF COMPLAINT: Syncope, hypertension and hyperlipidemia. HISTORY OF PRESENT ILLNESS: This 66-year-old male with past medical history significant for diabetes type 2, history of hypoglycemia associate autonomic failure,CHF with ef 20% s/p ICD placement, CAd s/p stent, chronic kidney disease stage III, hypothyroidism, depression, anxiety, chronic ambulatory dysfunction, diabetic vasculopathy status post L BKA and multiple amputations presents with syncope. Patient apparently passed out at home and was lying on the floor. The patient states he was standing and he suddenly passed out does not know anything until he came to the ER. checked blood sugars and they were ok. When EMS arrived his blood sugars were in 30s and was transferred to the ER. In the ER, he was found to be hypotensive with systolic blood pressure in 60's. He received 3liters of IV fluid bolus and started on empiric antibiotic, transferred to the ICU. Back in the ICU his blood pressure was stabilized and he was more alert and oriented. But lately his blood sugars again dropped and plan to start him on D10 with 30 mL per hour. The patient has history of being admitted in the hospital with sepsis in October 2016 and June 2017. Last admission he had osteomyelitis of right middle toe and was s/p amputation.At that time cultures showing multiple organisms. Currently resting comfortably and hemodynamically stable. Denies any headache. Denies any blurred vision. No cough, no chest pain, no shortness of breath, no fever, no chills, no abdominal pain. Normal bowel and bladder movements. Appetite is okay. The patient walks with the help of a walker at home. ALLERGIES: GEMFIBROZIL. PAST MEDICAL HISTORY: As mentioned above. PAST SURGICAL HISTORY: s/p left BKA, status post ICD placement, status post coronary artery stent placement to LAD. MEDICATIONS: The patient currently on amoxicillin 800 mg p.o. b.i.d., Lipitor 80 mg p.o. daily, ciprofloxacin 500 mg p.o. b.i.d. for 14 days, Lasix 80 mg p.o. b.i.d., glyburide 5 mg p.o. daily, Levemir 25 units b.i.d., Novolin R 3 units with breakfast and evening meal, Imdur 15 mg p.o. q.a.m., losartan 25 mg p.o. daily, Zaroxolyn 2.5 mg p.o. weekly, Toprol-XL 25 mg p.o. b.i.d., potassium chloride 20 mEq p.o. q.a.m., albuterol 2 puffs inhalation q. 4 hours p.r.n., allopurinol 300 mg p.o. daily, aspirin 81 mg p.o. daily, Plavix 75 mg p.o. daily, levothyroxine 50 mcg p.o. daily, meclizine 25 mg p.o. t.i.d. p.r.n., Zoloft 100 mg p.o. daily. FAMILY HISTORY: Significant for mother had diabetes. Father had CAD. SOCIAL HISTORY: Never smoked. No alcohol use. No drug use. , disabled. REVIEW OF SYMPTOMS: As per HPI. Rest of review of symptoms negative. PHYSICAL EXAMINATION: GENERAL: The patient is obese, not in distress. VITAL SIGNS: Temperature 36.6, pulse 74, respiratory rate 15, blood pressure currently 147/73, oxygen 98% on 2 liters. HEENT: No pallor, no icterus. Pupils equal, round, and reactive to light. NECK: No JVD, no neck masses, no carotid bruits. CARDIOVASCULAR: S1, S2 heard, regular rate and rhythm, no murmur, no gallop. RESPIRATORY SYSTEM: Clear to auscultation bilaterally. No wheezing, no crackles. ABDOMEN: Soft, bowel sounds present. Nontender. No distention. CENTRAL NERVOUS SYSTEM: Cranial nerves II-XII grossly intact. Nonfocal. EXTREMITIES: multiple digit amputations. Lower extremity edema present. LABORATORY DATA: WBC 9.8, hemoglobin 13.7, hematocrit 40, platelets 270. Sodium 142, potassium 3.9, chloride 109, CO2 28, BUN 22, creatinine 1.05, serum glucose 37, total bilirubin 0.6, direct bilirubin 0.2, AST 19, ALT 13, alkaline phosphatase 171, troponin 0.25_, albumin 3. Urinalysis, trace leukocyte esterase. Digoxin 0.1. PT 10.9, INR 1, PTT 28.1. Blood gas; pH 7.3, pCO2 52, pO2 82, bicarbonate 27, oxygen 95%. Chest x-ray: Cardiomegaly with mild interstitial pulmonary edema, no pneumothorax, small right pleural effusion. CT of the head, old right basal ganglia infarct, no acute findings. Cervical spine CT, no fracture of spine, mild pulmonary edema at lung base. EKG: Shows normal sinus rhythm with rate of 83, left axis deviation, no acute ST changes seen. ASSESSMENT AND PLAN: This is a 66-year-old male who presents with syncope, paroxysmal hypertension and hypoglycemia. 1. Syncope, probably from hypoglycemia and hypotension. Sugars were low on presentation . Critical care planning to start on on D10 at 30 mL per hour. We will monitor blood sugars and hold his home insulin 2. Hypotension. The patient initially was worried about the severe sepsis as patient has history of osteomyelitis and multiple admissions for sepsis Received aggressive fluids and started on IV antibiotics, currently on IV Zosyn and vancomycin. Fluids are stopped as his blood pressure stabilized and the patient is mentating well and also chest x-ray showed mild pulmonary edema. We will also follow the urine cultures and blood cultures and continue empiric antibiotics for now. 3. Possible acute on chronic systolic congestive heart failure, ejection fraction of 20%, status post implantable cardioverter defibrillator. Holding the home diuretics for now, received aggressive fluids. We will monitor and restart the diuretics in the a.m. 4. History of coronary artery disease status post stents Continue aspirin, Plavix, holding the beta blockers for hypotension. 5. History of hypertension. Holding the home blood pressure medications as patient was hypotensive on presentation. We will restart whenever the blood pressure improves. 6. Hypothyroidism. Continue Synthroid. 7. Depression and anxiety. Continue Zoloft. 8. History of osteomyelitis and sepsis. Follow the cultures. . We will closely monitor. 9. Deep venous thrombosis prophylaxis. We will place him on Lovenox. DISPOSITION: Close monitor in the ICU. Level 1 full code. MTDD
[2017-08-19] MEDS: PIPERACILL/TAZOBAC IV 4.5 GM in DEXTROSE 5% 100ML 100 ML IV SCH (21:18)
[2017-08-19] MEDS: HEPARIN SOD 5000 UNIT/0.5 ML CARP SQ SCH (21:19)
[2017-08-20] VITALS (23 sets, daily range): BP systolic 121–171; BP diastolic 59–111; PULSE 80–110; TEMP 36.6–37; O2SAT 92–98
[2017-08-20] MEDS: GLUCOSE 10 TABS/TUBE PO PRN (00:22)
[2017-08-20] MEDS ORDERED: DEXTROSE 50% 50 ML SYR IV STA (00:32)
[2017-08-20] MEDS: VANCOMYCIN INJ 1,500 MG in SODIUM CHLORIDE 0.9% 500ML 500 ML IV SCH ×2 (01:19→13:56)
[2017-08-20 01:45] LABS: BUN/CREATININE RATIO 19.4 (10-20); CALCIUM 8.2 mg/dl (8.5-10.1); CREATININE 1.04 mg/dl (0.60-1.40); MAGNESIUM 1.9 mg/dl (1.8-2.4); PHOSPHORUS 2.6 mg/dl (2.5-4.9); POTASSIUM 3.8 mmol/L (3.5-5.1)
[2017-08-20] MEDS: PIPERACILL/TAZOBAC IV 4.5 GM in DEXTROSE 5% 100ML 100 ML IV SCH ×3 (05:17→20:52)
[2017-08-20 05:30] LABS: BASO % 0.3 %; BASO ABS # 0.02 K/uL (0-0.2); COMPLETE YES; EOS % 1.2 %; HEMATOCRIT 33.5 % (42-52); IG% 0.1 %; LYMPH % 13.3 %; LYMPH ABS # 0.98 K/uL (1.2-3.4); MEAN CELL VOLUME 83.1 fL (80-100); MEAN CORPUSCULAR HEMOGLOBIN 27.5 pg (25-34); MEAN CORPUSCULAR HGB CONC 33.1 g/dl (32-36); MEAN PLATELET VOLUME 9.7 fL (7.4-10.4); MONO % 5.9 %; NEUT % 79.2 %; PLATELET COUNT 195 K/uL (130-400); RED BLOOD COUNT 4.03 M/uL (4.7-6.1); WHITE BLOOD COUNT 7.35 K/uL (4.8-10.8)
[2017-08-20 05:52] LABS: ALKALINE PHOSPHATASE 82 U/L (45-117); ALT/SGPT 20 U/L (12-78); BLOOD UREA NITROGEN 20 mg/dl (7-18); BUN/CREATININE RATIO 19.1 (10-20); CARBON DIOXIDE 26 mmol/L (21-32); CHLORIDE 112 mmol/L (98-107); CREATININE 1.05 mg/dl (0.60-1.40); GLUCOSE 82 mg/dl (70-99); SODIUM 141 mmol/L (136-145)
[2017-08-20] MEDS: INSULIN ASPART 100 UNITS/ML 3 ML PEN SC SCH ×4 (06:00→18:09)
[2017-08-20] MEDS: HEPARIN SOD 5000 UNIT/0.5 ML CARP SQ SCH ×3 (06:41→20:54)
[2017-08-20] MEDS: LEVOTHYROXINE 50 MCG TAB PO SCH (06:41)
[2017-08-20 06:55] LABS: POTASSIUM 3.9 mmol/L (3.5-5.1)
--- NOTE | 2017-08-20 07:46 | DIAGNOSTIC IMAGING REPORT ---
CHEST ONE VIEW PORTABLE CLINICAL HISTORY: 66 years-old Male presenting with CONGESTION. TECHNIQUE: Portable upright AP view of the chest was obtained. COMPARISON: 08/19/2017. FINDINGS: Left subclavian implanted cardiac defibrillator with leads to the right atrium, right ventricular apex, and coronary sinus. Cardiac silhouette moderately enlarged, stable to slightly decreased from prior. Mild pulmonary vascular prominence with persistent prominent lung markings. Minimal hazy right basilar opacity and small right pleural effusion. No pneumothorax. Right eighth rib fracture again noted. Upper abdomen normal. IMPRESSION: 1. Cardiomegaly with volume overload. 2. Right pleural effusion possibly with atelectasis. Electronically signed by: Jaydon Ghosh M.D. 08/20/2017 7:44 AM Dictated Date/Time: 08/20/2017 7:43 AM
[2017-08-20] MEDS: PANTOprazole SOD 40 MG TAB PO SCH (07:55)
[2017-08-20] MEDS: ALLOPURINOL 100 MG TAB PO SCH (07:55)
[2017-08-20] MEDS: ASPIRIN 81 MG ECTAB PO SCH (07:55)
[2017-08-20] MEDS: SERTRALINE HCL 100 MG TAB PO SCH (07:55)
[2017-08-20] MEDS: CLOPIDOGREL BISULFATE 75 MG TAB PO SCH (07:55)
[2017-08-20] MEDS ORDERED: PANTOprazole SOD 40 MG TAB PO SCH (09:00)
[2017-08-20] MEDS: PREGABALIN 25MG CAP PO SCH ×2 (09:27→20:53)
[2017-08-20] MEDS: FUROSEMIDE INJ 80 MG in SYRINGE 0 ML IV SCH (09:46)
--- NOTE | 2017-08-20 10:52 | Critical Care Progress Note ---
Critical Care Progress Note Date of Service Aug 20, 2017. Attending Dr. Jones Subjective The patient remained asymptomatic except for vague pain in the lower extremities from his peripheral neuropathy which is familiar with. The patient denies any restless leg cramps itself. The pain mainly in the right leg. It is not improved by moving the legs. He denies any chest pain but he does have mild shortness of breath. This likely related to fluid resuscitation in the past 24 hours. His blood pressure remains on the high side. The rest of his review of system was unremarkable. His tolerating oral intake and no diarrhea reported. Objective As above, no other intervention other than placing the patient on D10 W, the patient continued to adjust her hypoglycemia by the [id number] not to the same level by the lab check. Current SOFA Score SOFA Score Response (Comments) Value PaO2/FiO2 (mmHg) < 400 1 SaO2 / FIO2 221 - 301 1 Platelets (x10) > 150 0 Bilirubin (mg/dL) < 1.2 0 Bet[place] Coma Score 13 - 14 1 Level of Hypotension No Hypotension 0 Creatinine (mg/dL) < 1.2 0 Total 3 Assessment & Plan #1 although the patient is prone to sepsis, I do not have any evidence for at the moment. However it's day 2 and I would continue with antibiotics given his history with multiple episodes of cellulitis and osteomyelitis in the past and multiple digit amputation in that regard. I have not had any convincing evidence of sepsis at this point. In fact his blood pressure was erroneously low due to his peripheral artery disease and in fact his blood pressure was on the high side in the ICU throughout. #2 poorly controlled diabetes. Difficult to explain the persistent hypoglycemia despite the replacement of glucose. There is a discrepancy between lab throw glucose and bedside [id number] glucose level. #3 peripheral arterial disease with BKA on the left and multiple digits resection due to osteoarthritis in the upper extremity disease. #4 peripheral neuropathy. #5 congestive heart failure with cardiomyopathy and ejection fraction of 15% with defibrillator in place. Currently in pulmonary edema with minimal shortness of breath and maintaining his O2 saturation at 95% on nasal cannula. He does not use oxygen at home. #6 depression. #7 history of gout. Plan: #1 I will give the patient additional dose of Lasix today. He used to be on 80 mg by mouth twice a day and I would give him 80 mg IV daily starting now. #2 I will increase a D10 to 50 mL an hour. [place] attention to worsening pulmonary edema with hyperosmolar fluid. #3 I would keep the antibiotics with vancomycin and Zosyn for the time being until no evidence noted of infectious process. He is not hypotensive and not showing any signs of sepsis. No fever, leukocytosis. #4 I will start the patient on Lyrica 25 mg by mouth twice a day. His symptoms does not appear to be resolved with movement of the legs and does not fit the description of restless leg syndrome. #5 change the oral diet diabetic diet. #6 continue with heparin subcutaneous for DVT prophylaxis. #7 GI prophylaxis. #8 continue his cardiac medications. #9 will monitor in the ICU for an additional day. #[address] Fuentes, appreciate his assistance. #11 I would keep the insulin on hold. And I will discuss with the when she arrived to further investigate the dosage he was given of Lantus insulin at home. #12 case discussed with the staff on rounds details., Critical care time spent with the patient was 45 minutes. Consults & Procedures Consultants: Critical care Procedures: None Data Medications: Current Inpatient Medications Medications (Trade) Dose Ordered Sig/Ifeanyi Route Start Time Stop Time Status Last Admin Dose Admin Allopurinol (Zyloprim Tab) 300 mg DAILY PO 08/20/17 09:00 09/19/17 08:59 08/20/17 07:55 300 MG Aspirin (Ecotrin Tab) 81 mg DAILY PO 08/20/17 09:00 09/19/17 08:59 08/20/17 07:55 81 MG Clopidogrel Bisulfate (plAVix TAB) 75 mg QAM PO 08/20/17 09:00 09/19/17 08:59 08/20/17 07:55 75 MG Levothyroxine Sodium (Synthroid Tab) 50 mcg DAILYBB PO 08/20/17 06:00 09/19/17 05:59 08/20/17 06:41 50 MCG Meclizine HCl (Antivert Tab) 25 mg TID PRN PO 08/19/17 12:15 09/18/17 12:14 Sertraline HCl (Zoloft Tab) 100 mg DAILY PO 08/20/17 09:00 09/19/17 08:59 08/20/17 07:55 100 MG Albuterol (Ventolin Hfa Inhaler) 2 puffs Q4H PRN INH 08/19/17 17:00 09/18/17 16:59 Vancomycin HCl 1500 mg/Sodium Chloride 530 ml @ 200 mls/hr Q12H IV 08/20/17 01:00 10/01/17 00:59 08/20/17 01:19 200 MLS/HR Piperacillin Sod/ Tazobactam Sod 4.5 gm/Dextrose 120 ml @ 30 mls/hr Q8H IV 08/19/17 20:00 09/30/17 19:59 08/20/17 05:17 30 MLS/HR Insulin Aspart (novoLOG ASPART) SLIDING SCALE G... Q6 SC 08/19/17 18:00 09/18/17 17:59 Vancomycin HCl (Consult) 1 ea UD PRN N/A 08/19/17 12:45 09/18/17 12:44 Piperacillin Sod/ Tazobactam Sod (Consult) 1 ea UD PRN N/A 08/19/17 12:45 09/18/17 12:44 Heparin Sodium (Porcine) (Heparin Sq 5000 Unit/0.5ml) 5,000 unit Q8 SQ 08/19/17 22:00 09/18/17 13:59 08/20/17 06:41 5,000 UNIT Pantoprazole Sodium (Protonix Tab) 40 mg QAM PO 08/20/17 09:00 08/23/17 23:59 08/20/17 07:55 40 MG Glucose (Glucose 40% Gel) 15-30 GRAMS 15 GRAMS... UD PRN PO 08/19/17 14:15 09/18/17 14:14 Glucose (Glucose Chew Tab) 4-8 Tablets 4 Tabl... UD PRN PO 08/19/17 14:15 09/18/17 14:14 08/20/17 00:22 8 TABS Dextrose (Dextrose 50% 50ML Syringe) 25-50ML OF 50% DW IV FOR... UD PRN IV 08/19/17 14:15 09/18/17 14:14 Glucagon (Glucagon Inj) 1 mg UD PRN SQ 08/19/17 14:15 09/18/17 14:14 Dextrose 1,000 ml @ 50 mls/hr Q20H IV 08/19/17 17:00 09/18/17 16:59 Acetaminophen (Tylenol Tab) 650 mg Q4H PRN PO 08/19/17 17:15 09/18/17 17:14 Nitroglycerin (Nitrostat Tab) 0.4 mg UD PRN SL 08/19/17 17:15 09/18/17 17:14 Ondansetron HCl (Zofran Inj) 4 mg Q6H PRN IV 08/19/17 17:15 09/18/17 17:14 Pregabalin (Lyrica Cap) 25 mg BID PO 08/20/17 09:00 09/19/17 08:59 08/20/17 09:27 25 MG Furosemide 80 mg/ Syringe 8 ml @ 4 mls/min DAILY IV 08/20/17 10:00 09/19/17 09:59 08/20/17 09:46 4 MLS/MIN Vital Signs: Date Time Temp Pulse Resp B/P (MAP) Pulse Ox O2 Delivery O2 Flow Rate FiO2 08/20/17 10:00 85 23 167/88 (114) 96 Room Air 08/20/17 08:00 Room Air 08/20/17 08:00 36.7 86 26 139/76 (97) 94 Room Air 08/20/17 05:01 84 17 142/78 (99) 97 Nasal Cannula 2.0 08/20/17 04:31 90 20 142/73 (96) 94 Nasal Cannula 2.0 08/20/17 04:01 36.8 88 16 128/71 (90) 96 Nasal Cannula 2.0 08/20/17 04:00 Nasal Cannula 2.0 08/20/17 03:31 80 22 126/66 (86) 95 Nasal Cannula 2.0 08/20/17 03:01 80 13 122/63 (82) 96 Nasal Cannula 2.0 08/20/17 02:31 84 22 130/63 (85) 96 Nasal Cannula 2.0 08/20/17 02:01 83 18 121/59 (79) 97 Nasal Cannula 2.0 08/20/17 01:31 101 22 151/72 (98) 96 Nasal Cannula 2.0 08/20/17 01:01 102 15 133/88 (103) 98 Nasal Cannula 2.0 08/20/17 00:31 110 23 165/85 (111) 96 Nasal Cannula 2.0 08/20/17 00:01 37.0 85 18 130/63 (85) 98 Nasal Cannula 2.0 08/20/17 00:01 Nasal Cannula 2.0 08/19/17 23:31 85 20 133/70 (91) 98 Nasal Cannula 2.0 08/19/17 23:01 86 18 137/75 (95) 98 Nasal Cannula 2.0 08/19/17 22:31 83 16 137/73 (94) 99 Nasal Cannula 2.0 08/19/17 22:01 89 21 144/74 (97) 96 Nasal Cannula 2.0 08/19/17 21:31 88 18 149/78 (101) 96 Nasal Cannula 2.0 08/19/17 21:02 92 20 133/81 (98) 96 Nasal Cannula 2.0 08/19/17 20:31 96 22 160/90 (113) 97 Nasal Cannula 2.0 08/19/17 20:01 36.8 90 18 157/87 (110) 98 Nasal Cannula 2.0 08/19/17 20:00 Nasal Cannula 2.0 08/19/17 19:31 91 18 154/93 (113) 92 Nasal Cannula 2.0 08/19/17 19:01 92 19 139/80 (99) 94 Nasal Cannula 2.0 08/19/17 18:00 81 16 150/72 (98) 98 Nasal Cannula 2.0 08/19/17 16:00 36.6 74 15 144/73 (96) 98 Nasal Cannula 2.0 08/19/17 16:00 2.0 08/19/17 14:02 36.3 78 20 127/73 100 Nasal Cannula 2.0 08/19/17 12:54 78 20 62/55 95 Nasal Cannula 4.0 08/19/17 12:34 78 08/19/17 12:10 36.4 84 20 78/65 95 Nasal Cannula 4.0 NIBP 08/19/17 11:39 84 24 65/33 100 Non-Rebreather Laboratory Results: Last 24 Hours Test 08/19/17 11:00 08/19/17 11:09 08/19/17 11:15 08/19/17 11:36 Urine Color YELLOW Urine Appearance CLEAR Urine pH 5.0 Urine Specific [place]rigan 1.021 Urine Protein 3+ Urine Glucose (UA) NEG Urine Ketones NEG Urine Occult Blood TRACE Urine Nitrite NEG Urine Bilirubin NEG Urine Urobilinogen NEG Urine Leukocyte Esterase NEG Urine WBC (Auto) 1-5 /hpf Urine RBC (Auto) 0-4 /hpf Urine Hyaline Casts (Auto) 1-5 /lpf Urine Epithelial Cells (Auto) 5-10 /lpf Urine Bacteria (Auto) NEG Potassium Level 3.8 mmol/L Bedside Lactic Acid Venous 1.75 mmol/L Bedside Glucose 98 mg/dl Test 08/19/17 14:44 08/19/17 15:00 08/19/17 15:23 08/19/17 15:25 Bedside Glucose 46 mg/dl 44 mg/dl 78 mg/dl Random Glucose 67 mg/dl Test 08/19/17 16:44 08/19/17 20:23 08/20/17 00:07 08/20/17 00:23 Bedside Glucose 86 mg/dl 92 mg/dl 49 mg/dl 53 mg/dl Test 08/20/17 00:40 08/20/17 01:13 08/20/17 04:48 08/20/17 05:57 Bedside Glucose 128 mg/dl 81 mg/dl Sodium Level 141 mmol/L 141 mmol/L Potassium Level 3.8 mmol/L mmol/L Chloride Level 110 mmol/L 112 mmol/L Carbon Dioxide Level 25 mmol/L 26 mmol/L Anion Gap 6.0 mmol/L 3.0 mmol/L Blood Urea Nitrogen 20 mg/dl 20 mg/dl Creatinine 1.04 mg/dl 1.05 mg/dl Est Creatinine Clear Calc Drug Dose 93.8 ml/min 93.0 ml/min Estimated GFR () 86.3 85.3 Estimated GFR (Non- 74.5 73.6 BUN/Creatinine Ratio 19.4 19.1 Random Glucose 99 mg/dl 82 mg/dl Calcium Level 8.2 mg/dl 8.0 mg/dl Phosphorus Level 2.6 mg/dl Magnesium Level 1.9 mg/dl White Blood Count 7.35 K/uL Red Blood Count 4.03 M/uL Hemoglobin 11.1 g/dL Hematocrit 33.5 % Mean Corpuscular Volume 83.1 fL Mean Corpuscular Hemoglobin 27.5 pg Mean Corpuscular Hemoglobin Concent 33.1 g/dl Platelet Count 195 K/uL Mean Platelet Volume 9.7 fL Neutrophils (%) (Auto) 79.2 % Lymphocytes (%) (Auto) 13.3 % Monocytes (%) (Auto) 5.9 % Eosinophils (%) (Auto) 1.2 % Basophils (%) (Auto) 0.3 % Neutrophils # (Auto) 5.82 K/uL Lymphocytes # (Auto) 0.98 K/uL Monocytes # (Auto) 0.43 K/uL Eosinophils # (Auto) 0.09 K/uL Basophils # (Auto) 0.02 K/uL RDW Standard Deviation 48.4 fL RDW Coefficient of Variation 15.9 % Immature Granulocyte % (Auto) 0.1 % Immature Granulocyte # (Auto) 0.01 K/uL Total Bilirubin 0.9 mg/dl Direct Bilirubin mg/dl Aspartate Amino Transf (AST/SGOT) U/L Alanine Aminotransferase (ALT/SGPT) 20 U/L Alkaline Phosphatase 82 U/L Total Protein 6.1 gm/dl Albumin 2.3 gm/dl Test 08/20/17 06:21 Potassium Level 3.9 mmol/L Direct Bilirubin 0.2 mg/dl Aspartate Amino Transf (AST/SGOT) 22 U/L
--- NOTE | 2017-08-20 14:15 | Progress Note ---
Progress Note Date of Service Aug 20, 2017. Progress Note Hospitalist progress note Subjective/Exam: patient seen and examined in the ICU this AM. Patient was seen eating breakfast with assistance from nursing staff. He has been breathing on room air. Patient denies acute pain. Plan: Patient to remain in ICU today as per ICU physician. He has been stable hemodynamically but the main issue is recurrently measured low finger stick glucose. As per, ICU evaluation, patient does not appear to have sepsis at this time There is persistent hypoglycemia despite the replacement of glucose. There is a discrepancy between lab draw glucose and bedside [id number] glucose level. Peripheral arterial disease with BKA on the left and multiple digits resection due to osteoarthritis in the upper extremity disease may be contributing to recording of low blood pressure before and hypoglycemia however there is no strong evidence to prove that this is the case -Patient receiving IV fluids with dextrose to prevent hypoglycemia, insulin held -Vancomycin and Zosyn to be continued for now congestive heart failure with cardiomyopathy and ejection fraction of 15% with defibrillator in place. Currently in pulmonary edema with minimal shortness of breath and maintaining his O2 saturation at 95% on nasal cannula. He does not use oxygen at home. -Patient to receive IV Lasix for now in place of oral Lasix -continuing cardiovascular medications . Heparin subcutaneous for DVT prophylaxis. GI prophylaxis.
[2017-08-20] MEDS ORDERED: NURSING VERBAL MED ORDER ONE (18:00)
[2017-08-20] MEDS: DEXTROSE 10% 1,000 ML IV SCH (18:12)
[2017-08-21] VITALS (12 sets, daily range): BP systolic 140–162; BP diastolic 82–92; PULSE 81–91; TEMP 36.7–37.2; O2SAT 94–99
[2017-08-21] MEDS: INSULIN ASPART 100 UNITS/ML 3 ML PEN SC SCH ×5 (01:01→20:20)
[2017-08-21] MEDS: VANCOMYCIN INJ 1,500 MG in SODIUM CHLORIDE 0.9% 500ML 500 ML IV SCH (01:18)
[2017-08-21] MEDS: PIPERACILL/TAZOBAC IV 4.5 GM in DEXTROSE 5% 100ML 100 ML IV SCH (04:38)
[2017-08-21] MEDS: LEVOTHYROXINE 50 MCG TAB PO SCH (04:39)
[2017-08-21] MEDS: HEPARIN SOD 5000 UNIT/0.5 ML CARP SQ SCH ×3 (04:41→21:34)
[2017-08-21 05:39] LABS: BASO % 0.6 %; BASO ABS # 0.03 K/uL (0-0.2); COMPLETE YES; EOS % 3.1 %; HEMATOCRIT 34.1 % (42-52); IG% 0.2 %; LYMPH % 20.5 %; LYMPH ABS # 1.06 K/uL (1.2-3.4); MEAN CELL VOLUME 83.2 fL (80-100); MEAN CORPUSCULAR HEMOGLOBIN 27.1 pg (25-34); MEAN CORPUSCULAR HGB CONC 32.6 g/dl (32-36); MEAN PLATELET VOLUME 9.1 fL (7.4-10.4); MONO % 7.6 %; PLATELET COUNT 203 K/uL (130-400); WHITE BLOOD COUNT 5.16 K/uL (4.8-10.8)
[2017-08-21 06:13] LABS: CALCIUM 8.2 mg/dl (8.5-10.1); CREATININE 1.27 mg/dl (0.60-1.40)
--- NOTE | 2017-08-21 06:57 | DIAGNOSTIC IMAGING REPORT ---
CHEST ONE VIEW PORTABLE HISTORY: 66 years-old Male congestion acute congestion COMPARISON: Chest radiograph 08/20/2017 TECHNIQUE: Portable upright AP view of the chest FINDINGS: Cardiac silhouette is moderately enlarged. Left subclavian pacer/AICD is noted with leads unchanged. There is no pneumothorax. Small right pleural effusion again seen along with patchy right greater than left bibasilar opacities with interstitial coarsening and pulmonary vascular congestion, mildly progressed. Mildly displaced acute to subacute appearing fractures of the lateral right eighth and ninth ribs again noted. IMPRESSION: 1. Cardiomegaly with slightly worsened mild pulmonary edema pattern 2. Small right pleural effusion again noted along with patchy bibasilar opacities suggesting atelectasis. The above report was generated using voice recognition software. It may contain grammatical, syntax or spelling errors. Electronically signed by: Rolan Patterson M.D. 08/21/2017 6:55 AM Dictated Date/Time: 08/21/2017 6:52 AM
[2017-08-21] MEDS ORDERED: PHARMACY GLYCEMIC MGMT CONSULT PRN (08:34)
[2017-08-21] MEDS ORDERED: INSULIN HUMAN REGULAR SQ SCH (09:00)
--- NOTE | 2017-08-21 09:03 | Clinical Documentation Query ---
ARVIND Wharton : CLINICAL DOCUMENTATION QUERIES QUERY 1 OF 2 Patient is a 66 year old male admitted for evaluation and treatment of syncope, hypotension, and hyperlipidemia. Documentation includes that of CHF with an EF of 15%. Noted 08/20 to (be) "Currently in pulmonary edema". He is being treated with IV Lasix and supplemental O2. As appropriate, consider documentation as suggested below. Thank you. In your clinical opinion is this patient being managed for: ( x) Acute on chronic systolic congestive heart failure ( ) Not Agree ( ) Other explanation of clinical findings (Please Explain) ( ) Unable to determine (Please Define) ( ) Need to Discuss The medical record reflects the following clinical findings, treatment, and risk factors. Clinical Indicators: As above Treatment: IV Lasix, supplemental O2, labs, I/O, daily weights Risk Factors: IVF resuscitation, chronic systolic CHF QUERY 2 OF 2 BMI noted to be 41.2 kg/m*m. In order to capture this clinically relevant information from the record, an associated clinical diagnosis must be made/documented by the provider. As appropriate, consider documentation as suggested below. Thank you. In your clinical opinion does this patient suffer from: ( x) Morbid obesity ( ) Not Agree ( ) Other explanation of clinical findings (Please Explain) ( ) Unable to determine (Please Define) ( ) Need to Discuss The medical record reflects the following clinical findings, treatment, and risk factors. Clinical Indicators: As above Treatment: Diabetic diet, oil lease broker consultation Risk Factors: Caloric intake > caloric expenditure. Please clarify and document your clinical opinion in the progress notes and discharge summary. Terms such as "probable", "suspected", "likely", "questionable", "possible", or "still to be ruled out" are acceptable. IF IN AGREEMENT, YOU MUST DOCUMENT ABOVE DIAGNOSTIC STATEMENT IN DAILY PROGRESS NOTES AND DISCHARGE SUMMARY. This document is not part of the patient's record. Thank You, Dimitry Lopez, RN [phone]
[2017-08-21] MEDS: CLOPIDOGREL BISULFATE 75 MG TAB PO SCH (09:41)
[2017-08-21] MEDS: FUROSEMIDE INJ 80 MG in SYRINGE 0 ML IV SCH (09:41)
[2017-08-21] MEDS: ASPIRIN 81 MG ECTAB PO SCH (09:41)
[2017-08-21] MEDS: ALLOPURINOL 100 MG TAB PO SCH (09:41)
[2017-08-21] MEDS: SERTRALINE HCL 100 MG TAB PO SCH (09:41)
[2017-08-21] MEDS: PANTOprazole SOD 40 MG TAB PO SCH (09:41)
[2017-08-21] MEDS: PREGABALIN 25MG CAP PO SCH ×2 (09:44→20:19)
[2017-08-21] MEDS ORDERED: INSULIN DETEMIR FLEXPEN/FLEX TOUCH 100 UNITS/ML 3ML SQ ONE (10:00)
--- NOTE | 2017-08-21 10:38 | Pharmacy Progress Note ---
Glycemic Control Intl Consult Date of Service Aug 21, 2017. Scope Glycemic Pharmacist consulted by Bennett Love on 08/21/17 for glycemic control and to write orders per [facility] inpatient glycemic control protocol Objective Weight (Kilograms): 130.200 Accuchecks BSG (last 24hrs): Test 08/20/17 11:33 08/20/17 16:39 08/21/17 00:50 08/21/17 05:27 Bedside Glucose 141 mg/dl (70-99) 197 mg/dl (70-99) 251 mg/dl (70-99) Random Glucose 184 mg/dl (70-99) Test 08/21/17 09:37 Bedside Glucose 236 mg/dl (70-99) Laboratory Data (last 24hrs) Test 08/21/17 05:27 Anion Gap 5.0 mmol/L BUN/Creatinine Ratio 18.0 Blood Urea Nitrogen 23 mg/dl Creatinine 1.27 mg/dl Potassium Level 4.0 mmol/L Sodium Level 139 mmol/L White Blood Count 5.16 K/uL Red Blood Count 4.10 M/uL Hemoglobin 11.1 g/dL Hematocrit 34.1 % Mean Corpuscular Volume 83.2 fL Mean Corpuscular Hemoglobin 27.1 pg Mean Corpuscular Hemoglobin Concent 32.6 g/dl Platelet Count 203 K/uL Mean Platelet Volume 9.1 fL Neutrophils (%) (Auto) 68.0 % Lymphocytes (%) (Auto) 20.5 % Monocytes (%) (Auto) 7.6 % Eosinophils (%) (Auto) 3.1 % Basophils (%) (Auto) 0.6 % Neutrophils # (Auto) 3.51 K/uL Lymphocytes # (Auto) 1.06 K/uL Monocytes # (Auto) 0.39 K/uL Eosinophils # (Auto) 0.16 K/uL Basophils # (Auto) 0.03 K/uL Recent Pertinent Medications Outpatient Anti-diabetic Regimen: * Levemir 25u BID * Regular Insulin 3u daily with breakfast and dinner * Glyburide 5 mg daily * A1c = 9.2 % 06/20/17 The patient is currently receiving: * Correctional Insulin: Novolog Correction per scale q6 Goal Range: Low 140 mg/dL - High 180 mg/dL Correction Factor: 30 mg/dL/unit Risk Factors for Insulin Resistance: * Steroids: none * Infection: Receiving Vanco and previously Zosyn for septic shock * IVF: D10 stopped 08/21/17 @0050, to treat recurrent hypoglycemia * Diet: Dm-II Assessment & Plan ASSESSMENT: * Pt is a 66yo M known to the pharmacy glycemic service from previous admissions. Pharmacy is being consulted due to recurrent hypoglycemic events in the setting of septic shock. Mr. Koroma presented 08/19/17 with a severe low of 37mg/dL. He does take a sulfonylurea but did not present with PATRICIA. Renal fxn seems to be at his baseline. Etiology of recurrent hypoglycemic events is uncertain at this time. He was subsequently started on a D10 gtt which was stopped at 0050. BSGs following the cessation of the D10 gtt were 184 & 236. * Ergo, at this point I feel comfortable starting basal insulin. Will start at a reduced dose in an effort to mitigate future hypoglycemia. Based on previous admissions, bolus doses of CF: 10 & CR:4 yielded goal range BSGs. However, starting at a less aggressive regimen at this juncture seems appropriate. PLAN FOR INPATIENT GLYCEMIC CONTROL: * Holding outpatient oral diabetes medications * Basal insulin with Levemir 15u x1 @ 1000 on 08/21/17 * Then Levemir per scale starting at 2100 on 08/21/17: BSG less than 140 give 10u Levemir, 140-180 give 15u Levemir, Greater than 180 give 20u Levemir. Per previous admissions he did have low BSGs in the AM * Correctional Insulin with NOVOLOG per scale ACHS * Goal Range: Low 140 mg/dL - High 180 mg/dL while he is in the ICU * Correction Factor: 30 mg/dL/unit * Nutritional / Prandial insulin per carb ratio of 1 unit per 10 grams CHO consumed * Please note that the plan above was derived based on current level of insulin resistance and hospital stress. These recommendations are appropriate for inpatient admission only. Plan of care upon discharge will need to be reassessed to avoid potential outpatient hypo/hyperglycemia. Thank you.
[2017-08-21] MEDS ORDERED: VANCOMYCIN TROUGH ONE (12:30)
[2017-08-21] MEDS ORDERED: POTASSIUM CHLORIDE 10 MEQ TABCR PO ONE (12:45)
--- NOTE | 2017-08-21 12:55 | Progress Note ---
Progress Note Date of Service Aug 21, 2017. Progress Note Patient seen and examined in the ICU Patient continues to be breathing on room air as he was yesterday CXR on 08/21/17 Cardiac silhouette is moderately enlarged. Left subclavian pacer/AICD is noted with leads unchanged. There is no pneumothorax. Small right pleural effusion again seen along with patchy right greater than left bibasilar opacities with interstitial coarsening and pulmonary vascular congestion, mildly progressed. Mildly displaced acute to subacute appearing fractures of the lateral right eighth and ninth ribs again noted. IMPRESSION: 1. Cardiomegaly with slightly worsened mild pulmonary edema pattern 2. Small right pleural effusion again noted along with patchy bibasilar opacities suggesting atelectasis. Physical Exam General: no distress Lung: breathing on room air, No wheezing, O2 saturation 93% on pulse oximetry Heart: Regular rate, heart rate around 80 beats per minute Abdomen: Truncal Obesity, soft, nontender, + bowel sounds Extremities: Left lower extremity below knee amputation with no stump laceration or injuries, right leg with some scabs on pedal surfaces Subjective: Patient denies pain. Reports that his breathing "is not so good" but same as yesterday Assessment/Plan This 66-year-old male with past medical history significant for diabetes type 2 , history of hypoglycemia associate autonomic failure,CHF with EF 20% s/p ICD placement, CAd s/p stent, chronic kidney disease stage III, hypothyroidism, depression, anxiety, chronic ambulatory dysfunction, diabetic vasculopathy status post L BKA and multiple amputations presents with syncope. Patient apparently passed out at home and was lying on the floor. The patient states he was standing and he suddenly passed out does not know anything until he came to the ER. checked blood sugars and they were ok. When EMS arrived his blood sugars were in 30s and was transferred to the ER. In the ER, he was found to be hypotensive with systolic blood pressure in 60's. He received 3liters of IV fluid bolus and started on empiric antibiotic, transferred to the ICU. Back in the ICU his blood pressure was stabilized and he was more alert and oriented. But lately his blood sugars again dropped and plan to start him on D10 with 30 mL per hour. Patient did not require intubation in the ICU and his fluid intake included dextrose in IV fluids to adequately ensure that patient is not truly hypoglycemic. When numbers from point of care fingersticks in the ICU, patient reportedly had been asymptomatic. And in the furthering the management of the patient, patient likely will require diuresis to prevent pulmonary edema. Cardiac/Respiratory history of chronic CHF with stents with ICD continue Lasix 80 mg IV daily, daily weights for acute on chronic CHF currently breathing on room air, if develops respiratory distress patient likely will benefit from BIPAP before next therapeutic which is intubation Code Status is Full Resuscitation Continue Aspirin, Plavix daily Heart Healthy/Low Salt/ Diabetes Diet Infectious management Zosyn and Vancomycin started on 08/19/17 Blood culture from 08/19/17 with 1 of 2 cultures as alpha strep/not strep pneumo and not enterococci As per ICU physician on 08/21/17, Zosyn has been stopped. Vancomycin to be continued Follow up 08/1617 blood culture speciation and 08/21/17 blood culture Diabetes - recorded hypoglycemia in the ICU Cailin Novohubert, Pharmacy glycemic control appreciated to continue to follow D50 pushes prn in case of hypoglycemia, will hold dextrose IV fluids for now unless further hypoglycemic episodes in the context of limiting IV fluids in a CHF patient fingerstick glucose monitoring Heart Healthy/Low Salt/ Diabetes Diet Hypothyroid history Continue Levothyroxine Depression history Continue Sertraline Gout history Continue Allopurinol Morbid Obesity PT/OT to prevent muscle deconditioning while in hospital DVT ppx: heparin subc Disposition: Transfer from ICU to Telemetry
--- NOTE | 2017-08-21 15:44 | Pharmacy Progress Note ---
Pharmacy Abx Dose Short Note Date of Service Aug 21, 2017. Assessment & Plan Assessment * 66 year old male receiving vancomycin IV for gm + cocci bacteremia, finger cellulitis; current dose 1500mg (~12mg/kg) Q 12 hours * 1 of 2 BLCX's is growing alpha-strep not-enterococcus * Day # 3 of antimicrobial therapy * Renal fxn may be declining, SCr 1.05 --> 1.27, U.O. still adequate however, vanco trough elevated, will need to trend SCr Plan Vancomycin * Trough level of 26.5 mcg/mL is supratherapeutic, prior doses hung on time, level drawn at appropriate time * Renal fxn may be worsening * Change to 1250 mg (~9.8mg/kg) IV every 18 hours - next dose due tomorrow at 1000 as he already has received this AM's dose. I calculate the trough level should be b/w 15-20 at that time * Goal trough level for bacteremia : 15 to 20 mcg/mL * Trough level ordered for: 08/23/ w/ dose of new regimen Pharmacy will continue to follow and will adjust dose/frequency as necessary. Thank you.
[2017-08-21] MEDS: INSULIN DETEMIR FLEXPEN/FLEX TOUCH 100 UNITS/ML 3ML SQ SCH (20:21)
[2017-08-21] MEDS: ALBUTEROL HFA 8 GM INHALER INH PRN (20:24)
[2017-08-21] MEDS: VANCOMYCIN INJ 1,250 MG in SODIUM CHLORIDE 0.9% 250ML 250 ML IV SCH (21:32)
[2017-08-22] MEDS ORDERED: INSULIN ASPART 100 UNITS/ML 3 ML PEN SC ONE (02:00)
--- NOTE | 2017-08-22 02:23 | Critical Care Progress Note ---
Critical Care Progress Note Date of Service Aug 22, 2017. Attending Dr. Montelongo Subjective Feeling improved Objective As above, no other intervention other than placing the patient on D10 W, the patient continued to adjust her hypoglycemia by the [id number] not to the same level by the lab check. Current SOFA Score SOFA Score Response (Comments) Value PaO2/FiO2 (mmHg) < 400 1 SaO2 / FIO2 221 - 301 1 Platelets (x10) > 150 0 Bilirubin (mg/dL) < 1.2 0 Toby Coma Score 13 - 14 1 Level of Hypotension No Hypotension 0 Creatinine (mg/dL) < 1.2 0 Total 3 Assessment & Plan Impression #1 possible bacteremia * Reviewed sensitivities, discontinue Zosyn * No evidence of hemodynamic instability at this time #2 hypoglycemia * Resolved #3 hyperglycemia * Restarted patient's home diabetic medication Discussed with the hospitalist stable for downgraded out of the ICU today Consults & Procedures Consultants: Critical care Procedures: None Data Medications: Current Inpatient Medications Medications (Trade) Dose Ordered Sig/Ifeanyi Route Start Time Stop Time Status Last Admin Dose Admin Allopurinol (Zyloprim Tab) 300 mg DAILY PO 08/20/17 09:00 09/19/17 08:59 08/21/17 09:41 300 MG Aspirin (Ecotrin Tab) 81 mg DAILY PO 08/20/17 09:00 09/19/17 08:59 08/21/17 09:41 81 MG Clopidogrel Bisulfate (plAVix TAB) 75 mg QAM PO 08/20/17 09:00 09/19/17 08:59 08/21/17 09:41 75 MG Levothyroxine Sodium (Synthroid Tab) 50 mcg DAILYBB PO 08/20/17 06:00 09/19/17 05:59 08/21/17 04:39 50 MCG Meclizine HCl (Antivert Tab) 25 mg TID PRN PO 08/19/17 12:15 09/18/17 12:14 Sertraline HCl (Zoloft Tab) 100 mg DAILY PO 08/20/17 09:00 09/19/17 08:59 08/21/17 09:41 100 MG Albuterol (Ventolin Hfa Inhaler) 2 puffs Q4H PRN INH 08/19/17 17:00 09/18/17 16:59 08/21/17 20:24 2 PUFFS Vancomycin HCl (Consult) 1 ea UD PRN N/A 08/19/17 12:45 09/18/17 12:44 Heparin Sodium (Porcine) (Heparin Sq 5000 Unit/0.5ml) 5,000 unit Q8 SQ 08/19/17 22:00 09/18/17 13:59 08/21/17 21:34 5,000 UNIT Pantoprazole Sodium (Protonix Tab) 40 mg QAM PO 08/20/17 09:00 08/23/17 23:59 08/21/17 09:41 40 MG Glucose (Glucose 40% Gel) 15-30 GRAMS 15 GRAMS... UD PRN PO 08/19/17 14:15 09/18/17 14:14 Glucose (Glucose Chew Tab) 4-8 Tablets 4 Tabl... UD PRN PO 08/19/17 14:15 09/18/17 14:14 08/20/17 00:22 8 TABS Dextrose (Dextrose 50% 50ML Syringe) 25-50ML OF 50% DW IV FOR... UD PRN IV 08/19/17 14:15 09/18/17 14:14 Glucagon (Glucagon Inj) 1 mg UD PRN SQ 08/19/17 14:15 09/18/17 14:14 Acetaminophen (Tylenol Tab) 650 mg Q4H PRN PO 08/19/17 17:15 09/18/17 17:14 Nitroglycerin (Nitrostat Tab) 0.4 mg UD PRN SL 08/19/17 17:15 09/18/17 17:14 Ondansetron HCl (Zofran Inj) 4 mg Q6H PRN IV 08/19/17 17:15 09/18/17 17:14 Pregabalin (Lyrica Cap) 25 mg BID PO 08/20/17 09:00 09/19/17 08:59 08/21/17 20:19 25 MG Furosemide 80 mg/ Syringe 8 ml @ 4 mls/min DAILY IV 08/20/17 10:00 09/19/17 09:59 08/21/17 09:41 4 MLS/MIN Miscellaneous Information (Consult Glycemic Management Pharmacy) 1 ea UD PRN N/A 08/21/17 08:34 09/20/17 08:33 Insulin Detemir (Levemir Flexpen/ FlexTouch) SEE PROTOCOL TEXT BID SQ 08/21/17 21:00 09/20/17 20:59 08/21/17 20:21 20 UNITS Insulin Aspart (novoLOG ASPART) SLIDING SCALE G... ACHS SC 08/21/17 11:00 09/20/17 10:59 08/21/17 20:20 1 UNITS Vancomycin HCl 1250 mg/Sodium Chloride 275 ml @ 125 mls/hr Q18H IV 08/21/17 20:00 10/02/17 19:59 08/21/17 21:32 125 MLS/HR Vital Signs: Date Time Temp Pulse Resp B/P (MAP) Pulse Ox O2 Delivery O2 Flow Rate FiO2 08/22/17 00:01 Room Air 08/21/17 23:52 37.1 81 20 151/89 (109) 98 Room Air 08/21/17 20:00 Nasal Cannula 2.0 08/21/17 19:48 37.2 84 17 158/83 (108) 94 08/21/17 16:00 Room Air 08/21/17 15:56 36.8 83 15 141/83 (102) 97 Room Air 08/21/17 12:00 36.8 85 24 154/83 (106) 98 Room Air 08/21/17 12:00 Room Air 08/21/17 10:00 87 18 157/92 (113) 98 Room Air 08/21/17 08:00 Room Air 08/21/17 08:00 36.8 83 20 162/88 (112) 99 Room Air 08/21/17 05:01 84 11 140/82 (101) 97 Nasal Cannula 2.0 08/21/17 04:36 36.7 83 17 146/88 (107) 97 Nasal Cannula 2.0 08/21/17 04:00 Room Air 08/21/17 03:01 87 17 152/88 (109) 96 Nasal Cannula 2.0 Laboratory Results: Last 24 Hours Test 08/21/17 05:27 08/21/17 09:37 08/21/17 11:12 08/21/17 12:54 White Blood Count 5.16 K/uL Red Blood Count 4.10 M/uL Hemoglobin 11.1 g/dL Hematocrit 34.1 % Mean Corpuscular Volume 83.2 fL Mean Corpuscular Hemoglobin 27.1 pg Mean Corpuscular Hemoglobin Concent 32.6 g/dl Platelet Count 203 K/uL Mean Platelet Volume 9.1 fL Neutrophils (%) (Auto) 68.0 % Lymphocytes (%) (Auto) 20.5 % Monocytes (%) (Auto) 7.6 % Eosinophils (%) (Auto) 3.1 % Basophils (%) (Auto) 0.6 % Neutrophils # (Auto) 3.51 K/uL Lymphocytes # (Auto) 1.06 K/uL Monocytes # (Auto) 0.39 K/uL Eosinophils # (Auto) 0.16 K/uL Basophils # (Auto) 0.03 K/uL RDW Standard Deviation 47.5 fL RDW Coefficient of Variation 15.6 % Immature Granulocyte % (Auto) 0.2 % Immature Granulocyte # (Auto) 0.01 K/uL Sodium Level 139 mmol/L Potassium Level 4.0 mmol/L Chloride Level 108 mmol/L Carbon Dioxide Level 26 mmol/L Anion Gap 5.0 mmol/L Blood Urea Nitrogen 23 mg/dl Creatinine 1.27 mg/dl Est Creatinine Clear Calc Drug Dose 77.9 ml/min Estimated GFR () 67.8 Estimated GFR (Non- 58.5 BUN/Creatinine Ratio 18.0 Random Glucose 184 mg/dl Calcium Level 8.2 mg/dl Total Bilirubin 1.0 mg/dl Direct Bilirubin 0.2 mg/dl Aspartate Amino Transf (AST/SGOT) 14 U/L Alanine Aminotransferase (ALT/SGPT) 18 U/L Alkaline Phosphatase 82 U/L Total Protein 6.3 gm/dl Albumin 2.3 gm/dl Bedside Glucose 236 mg/dl 243 mg/dl Vancomycin Level Trough 26.5 mcg/ml Test 08/21/17 16:12 08/21/17 20:19 Bedside Glucose 249 mg/dl 204 mg/dl
[2017-08-22 03:42] VITALS: BP_SYST 152; BP_SYST 154; BP_DIAS 102; BP_DIAS 98; PULSE 81; TEMP 37.1; O2SAT 95
[2017-08-22] MEDS: LEVOTHYROXINE 50 MCG TAB PO SCH (05:30)
[2017-08-22] MEDS: ALBUTEROL HFA 8 GM INHALER INH PRN (05:30)
[2017-08-22] MEDS: HEPARIN SOD 5000 UNIT/0.5 ML CARP SQ SCH ×3 (05:31→21:14)
[2017-08-22 06:16] LABS: BASO % 0.5 %; BASO ABS # 0.03 K/uL (0-0.2); COMPLETE YES; EOS % 2.8 %; HEMATOCRIT 35.4 % (42-52); IG% 0.3 %; LYMPH % 19.7 %; LYMPH ABS # 1.21 K/uL (1.2-3.4); MEAN CELL VOLUME 82.5 fL (80-100); MEAN CORPUSCULAR HGB CONC 32.8 g/dl (32-36); MEAN PLATELET VOLUME 9.3 fL (7.4-10.4); MONO % 5.2 %; NEUT % 71.5 %; PLATELET COUNT 238 K/uL (130-400); RED BLOOD COUNT 4.29 M/uL (4.7-6.1); WHITE BLOOD COUNT 6.15 K/uL (4.8-10.8)
[2017-08-22 06:46] LABS: BUN/CREATININE RATIO 20.4 (10-20); CALCIUM 8.8 mg/dl (8.5-10.1); CREATININE 1.34 mg/dl (0.60-1.40); POTASSIUM 4.2 mmol/L (3.5-5.1)
[2017-08-22 06:48] LABS: ALB/GLOB RATIO 0.5 (0.9-2)
[2017-08-22 07:23] VITALS: BP 157/87; PULSE 80; TEMP 36.6; O2SAT 97
[2017-08-22] MEDS: CLOPIDOGREL BISULFATE 75 MG TAB PO SCH (08:47)
[2017-08-22] MEDS: PANTOprazole SOD 40 MG TAB PO SCH (08:47)
[2017-08-22] MEDS: SERTRALINE HCL 100 MG TAB PO SCH (08:47)
[2017-08-22] MEDS: ASPIRIN 81 MG ECTAB PO SCH (08:47)
[2017-08-22] MEDS: FUROSEMIDE INJ 80 MG in SYRINGE 0 ML IV SCH (08:47)
[2017-08-22] MEDS: ALLOPURINOL 100 MG TAB PO SCH (08:48)
[2017-08-22] MEDS: PREGABALIN 25MG CAP PO SCH ×2 (08:50→21:12)
[2017-08-22] MEDS: INSULIN DETEMIR FLEXPEN/FLEX TOUCH 100 UNITS/ML 3ML SQ SCH ×3 (08:50→21:14)
[2017-08-22] MEDS: INSULIN ASPART 100 UNITS/ML 3 ML PEN SC SCH ×4 (08:52→21:00)
--- NOTE | 2017-08-22 08:55 | Pharmacy Progress Note ---
Pharmacy Glycemic Short Note 2 Date of Service Aug 22, 2017. * Mr. Koroma is currently receiving an average of 52 units of insulin per day * 35 units of basal insulin * 17 units of prandial/correctional insulin * BSGs ranging 87-236 over the past 24hrs * Anticipating insulin regimen will need decreased for the next 24hrs d/t : * AM Fasting BSG = 87 ergo basal insulin requires adjustment. No basal was given AM of 08/22/17 per Levemir scale. * Ensuing prandial BSG was 167mg/dL with this upward trend I'm inclined to trial Levemir 15u BID. Will start scheduled Levemir 15u BID MEGHAN now and HS to make up for missed dose given this AM. * No change in current CF/CR.
[2017-08-22] MEDS ORDERED: VANCOMYCIN INJ 1,250 MG in SODIUM CHLORIDE 0.9% 250ML 250 ML IV SCH (10:00)
[2017-08-22 11:19] VITALS: BP 150/73; PULSE 80; TEMP 36.7; O2SAT 95
[2017-08-22] MEDS: VANCOMYCIN INJ 1,250 MG in SODIUM CHLORIDE 0.9% 250ML 250 ML IV SCH (14:00)
[2017-08-22 15:59] VITALS: BP 161/91; PULSE 80; TEMP 36.7; O2SAT 94
[2017-08-22 18:46] LABS: BUN/CREATININE RATIO 18.7 (10-20); CALCIUM 8.7 mg/dl (8.5-10.1); CREATININE 1.32 mg/dl (0.60-1.40); MAGNESIUM 1.9 mg/dl (1.8-2.4); POTASSIUM 4.2 mmol/L (3.5-5.1)
--- NOTE | 2017-08-22 19:34 | Progress Note ---
Medicine Progress Note Date & Time of Visit: Aug 22, 2017 at 11:18. Subjective Pt was seen examined Lying in bed with no distress Pt said that he feels tired He said that he does have some sob denies any chest pain, palpitation, dizziness and fever Objective Last 8 Hrs Date Time Temp Pulse Resp B/P (MAP) Pulse Ox O2 Delivery O2 Flow Rate FiO2 08/22/17 07:23 36.6 80 18 157/87 (110) 97 Room Air 08/22/17 04:00 Room Air 08/22/17 03:42 37.1 81 18 154/98 (116) 95 152/102 (119) Physical Exam: General- No acute distress Head- atraumatic Eyes- PERRL, EOMI ENT- oropharynx clear Neck- supple, no JVD Lungs- clear to auscultation Heart- regular rhythm Abdomen- normal bowel sounds, soft Extremities- 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, BKA in LLE Neuro- alert, oriented Skin- warm & dry Laboratory Results: Last 24 Hours Test 08/21/17 12:54 08/21/17 16:12 08/21/17 20:19 08/22/17 01:54 Vancomycin Level Trough 26.5 mcg/ml Bedside Glucose 249 mg/dl 204 mg/dl 179 mg/dl Test 08/22/17 05:38 08/22/17 06:43 White Blood Count 6.15 K/uL Red Blood Count 4.29 M/uL Hemoglobin 11.6 g/dL Hematocrit 35.4 % Mean Corpuscular Volume 82.5 fL Mean Corpuscular Hemoglobin 27.0 pg Mean Corpuscular Hemoglobin Concent 32.8 g/dl Platelet Count 238 K/uL Mean Platelet Volume 9.3 fL Neutrophils (%) (Auto) 71.5 % Lymphocytes (%) (Auto) 19.7 % Monocytes (%) (Auto) 5.2 % Eosinophils (%) (Auto) 2.8 % Basophils (%) (Auto) 0.5 % Neutrophils # (Auto) 4.40 K/uL Lymphocytes # (Auto) 1.21 K/uL Monocytes # (Auto) 0.32 K/uL Eosinophils # (Auto) 0.17 K/uL Basophils # (Auto) 0.03 K/uL RDW Standard Deviation 46.0 fL RDW Coefficient of Variation 15.3 % Immature Granulocyte % (Auto) 0.3 % Immature Granulocyte # (Auto) 0.02 K/uL Sodium Level 137 mmol/L Potassium Level 4.2 mmol/L Chloride Level 105 mmol/L Carbon Dioxide Level 30 mmol/L Anion Gap 2.0 mmol/L Blood Urea Nitrogen 27 mg/dl Creatinine 1.34 mg/dl Est Creatinine Clear Calc Drug Dose 73.4 ml/min Estimated GFR () 63.5 Estimated GFR (Non- 54.8 BUN/Creatinine Ratio 20.4 Random Glucose 102 mg/dl Calcium Level 8.8 mg/dl Total Bilirubin 0.9 mg/dl Aspartate Amino Transf (AST/SGOT) 13 U/L Alanine Aminotransferase (ALT/SGPT) 18 U/L Alkaline Phosphatase 83 U/L Total Protein 6.9 gm/dl Albumin 2.4 gm/dl Globulin 4.5 gm/dl Albumin/Globulin Ratio 0.5 Bedside Glucose 87 mg/dl Date/Time Source Procedure Growth Status 08/21/17 12:54 Blood Blood Culture Pending Received 08/21/17 12:29 Blood Blood Culture Pending Received Assessment & Plan Syncope Possible related to Hypoglycemia and Hypotension CT head showed no acute intracranial abnormality BS was in the 30s before arrived in the ER Was started on D10 @ 30ml Clinically stable Hypotension Possible sepsis Blood culture from 08/19/17 with 1 of 2 cultures as alpha strep/not strep pneumo and not enterococci Zosyn has been D/C and continue Vancomycin Repeat blood cx no growth so far Received aggressive IVF BP has been running high BP meds have been putting on hold Resolved Diabetes Hypoglycemia Received D10 in the ICU Will monitor BS closely Pharmacy glycemic control appreciated to continue to follow Hypothyroidism Continue Levothyroxine Stable Ambulatory Dysfunction Continue PT/OT Fall precaution Plan to go to rehab Depression Continue Sertraline Stable Gout Continue Allopurinol Obesity Counseling on smoking cessation DVT ppx heparin subq Code status Full code Current Inpatient Medications: Current Inpatient Medications Medications (Trade) Dose Ordered Sig/Ifeanyi Route Start Time Stop Time Status Last Admin Dose Admin Allopurinol (Zyloprim Tab) 300 mg DAILY PO 08/20/17 09:00 09/19/17 08:59 08/22/17 08:48 300 MG Aspirin (Ecotrin Tab) 81 mg DAILY PO 08/20/17 09:00 09/19/17 08:59 08/22/17 08:47 81 MG Clopidogrel Bisulfate (plAVix TAB) 75 mg QAM PO 08/20/17 09:00 09/19/17 08:59 08/22/17 08:47 75 MG Levothyroxine Sodium (Synthroid Tab) 50 mcg DAILYBB PO 08/20/17 06:00 18 05:59 08/22/17 05:30 50 MCG Meclizine HCl (Antivert Tab) 25 mg TID PRN PO 08/19/17 12:15 09/18/17 12:14 Sertraline HCl (Zoloft Tab) 100 mg DAILY PO 08/20/17 09:00 09/19/17 08:59 08/22/17 08:47 100 MG Albuterol (Ventolin Hfa Inhaler) 2 puffs Q4H PRN INH 08/19/17 17:00 09/18/17 16:59 08/22/17 05:30 2 PUFFS Vancomycin HCl (Consult) 1 ea UD PRN N/A 08/19/17 12:45 09/18/17 12:44 Heparin Sodium (Porcine) (Heparin Sq 5000 Unit/0.5ml) 5,000 unit Q8 SQ 08/19/17 22:00 09/18/17 13:59 08/22/17 05:31 5,000 UNIT Pantoprazole Sodium (Protonix Tab) 40 mg QAM PO 08/20/17 09:00 08/23/17 23:59 08/22/17 08:47 40 MG Glucose (Glucose 40% Gel) 15-30 GRAMS 15 GRAMS... UD PRN PO 08/19/17 14:15 09/18/17 14:14 Glucose (Glucose Chew Tab) 4-8 Tablets 4 Tabl... UD PRN PO 08/19/17 14:15 09/18/17 14:14 08/20/17 00:22 8 TABS Dextrose (Dextrose 50% 50ML Syringe) 25-50ML OF 50% DW IV FOR... UD PRN IV 08/19/17 14:15 09/18/17 14:14 Glucagon (Glucagon Inj) 1 mg UD PRN SQ 08/19/17 14:15 09/18/17 14:14 Acetaminophen (Tylenol Tab) 650 mg Q4H PRN PO 08/19/17 17:15 09/18/17 17:14 Nitroglycerin (Nitrostat Tab) 0.4 mg UD PRN SL 08/19/17 17:15 09/18/17 17:14 Ondansetron HCl (Zofran Inj) 4 mg Q6H PRN IV 08/19/17 17:15 09/18/17 17:14 Pregabalin (Lyrica Cap) 25 mg BID PO 08/20/17 09:00 09/19/17 08:59 08/22/17 08:50 25 MG Furosemide 80 mg/ Syringe 8 ml @ 4 mls/min DAILY IV 08/20/17 10:00 09/19/17 09:59 08/22/17 08:47 4 MLS/MIN Miscellaneous Information (Consult Glycemic Management Pharmacy) 1 ea UD PRN N/A 08/21/17 08:34 09/20/17 08:33 Insulin Detemir (Levemir Flexpen/ FlexTouch) SEE PROTOCOL TEXT BID SQ 08/21/17 21:00 09/20/17 20:59 08/21/17 20:21 20 UNITS Insulin Aspart (novoLOG ASPART) SLIDING SCALE G... ACHS SC 08/21/17 11:00 09/20/17 10:59 08/22/17 08:52 4 UNITS Vancomycin HCl 1250 mg/Sodium Chloride 275 ml @ 125 mls/hr Q18H IV 08/21/17 20:00 10/02/17 19:59 08/21/17 21:32 125 MLS/HR
[2017-08-22 19:39] VITALS: BP 162/106; PULSE 90; TEMP 36.6; O2SAT 96
[2017-08-22] MEDS ORDERED: METOPROLOL TARTRATE 1 MG/ML VIAL IV PRN (19:45)
[2017-08-22 23:42] VITALS: BP 122/78; PULSE 80; TEMP 36.9; O2SAT 95
[2017-08-23] MEDS: LEVOTHYROXINE 50 MCG TAB PO SCH (06:42)
[2017-08-23] MEDS: HEPARIN SOD 5000 UNIT/0.5 ML CARP SQ SCH ×3 (06:43→20:46)
[2017-08-23] MEDS ORDERED: VANCOMYCIN TROUGH ONE ×2 (07:30→21:30)
[2017-08-23 07:32] LABS: BASO % 0.2 %; BASO ABS # 0.01 K/uL (0-0.2); COMPLETE YES; EOS % 2.5 %; HEMATOCRIT 36.1 % (42-52); IG% 0.2 %; LYMPH ABS # 1.08 K/uL (1.2-3.4); MEAN CELL VOLUME 80.8 fL (80-100); MEAN CORPUSCULAR HEMOGLOBIN 27.1 pg (25-34); MEAN CORPUSCULAR HGB CONC 33.5 g/dl (32-36); MONO % 5.8 %; NEUT % 72.3 %; PLATELET COUNT 235 K/uL (130-400); RED BLOOD COUNT 4.47 M/uL (4.7-6.1); WHITE BLOOD COUNT 5.68 K/uL (4.8-10.8)
[2017-08-23 07:55] VITALS: BP 181/117; PULSE 95; TEMP 37.2; O2SAT 94
[2017-08-23] MEDS: ALLOPURINOL 100 MG TAB PO SCH (08:03)
[2017-08-23] MEDS: FUROSEMIDE INJ 80 MG in SYRINGE 0 ML IV SCH (08:04)
[2017-08-23] MEDS: ASPIRIN 81 MG ECTAB PO SCH (08:04)
[2017-08-23] MEDS: PANTOprazole SOD 40 MG TAB PO SCH (08:04)
[2017-08-23] MEDS: SERTRALINE HCL 100 MG TAB PO SCH (08:04)
[2017-08-23] MEDS: INSULIN DETEMIR FLEXPEN/FLEX TOUCH 100 UNITS/ML 3ML SQ SCH ×2 (08:11→21:00)
[2017-08-23] MEDS: VANCOMYCIN INJ 1,250 MG in SODIUM CHLORIDE 0.9% 250ML 250 ML IV SCH (08:11)
[2017-08-23] MEDS: INSULIN ASPART 100 UNITS/ML 3 ML PEN SC SCH ×4 (08:11→20:59)
[2017-08-23] MEDS: PREGABALIN 25MG CAP PO SCH ×2 (08:11→20:46)
[2017-08-23 08:13] LABS: ALB/GLOB RATIO 0.6 (0.9-2); BUN/CREATININE RATIO 25.6 (10-20); CALCIUM 8.8 mg/dl (8.5-10.1); CREATININE 0.98 mg/dl (0.60-1.40); POTASSIUM 3.7 mmol/L (3.5-5.1)
[2017-08-23] MEDS: CLOPIDOGREL BISULFATE 75 MG TAB PO SCH (08:50)
--- NOTE | 2017-08-23 09:41 | Pharmacy Progress Note ---
Pharmacy Abx Dose Short Note Date of Service Aug 23, 2017. Assessment & Plan Assessment 66 year old male receiving vancomycin IV for gm + cocci bacteremia, finger cellulitis * 1 of 2 BLCX's is growing alpha-strep not-enterococcus * Repeat blood cultures from 08/21 have NGTD * Day # 5 of antimicrobial therapy * Renal function improved. Decreased to 0.98 today from 1.34 yesterday. Plan Vancomycin * Trough level of 18.2 mcg/mL is therapeutic. * Continue dose of 1250 mg IV every 18 hours * Goal trough level for bacteremia/cellulitis : 15 to 20 mcg/mL * Trough level ordered for 08/25 @1330 due to unstable renal function and the likelihood for accumulation as pt's BMI>35. Pharmacy will continue to follow and will adjust dose/frequency as necessary. Thank you.
[2017-08-23] MEDS ORDERED: LOSARTAN POTASSIUM 25 MG TAB PO ONE (10:15)
[2017-08-23] MEDS ORDERED: METOPROLOL SUCC 25MG EXT REL TAB PO ONE (10:15)
--- NOTE | 2017-08-23 11:04 | Pharmacy Progress Note ---
Pharmacy Glycemic Short Note 2 Date of Service Aug 23, 2017. ASSESSMENT: * Mr Koroma's BSGs look good from dinner time and overnight. Yesterday's HS Levemir 15u dose yielded 82mg/dL this AM. HS fasting BSG looked good. Ergo, will adjust subsequent HS Levemir doses for now. PLAN FOR INPATIENT GLYCEMIC CONTROL: * Basal insulin * Cont. Levemir 15u QAM and change Levemir HS to 10u to mitigate AM fasting hypoglycemia * Bolus insulin * Continue current CF/CR as this has achieved stable prandial BSGs
[2017-08-23 11:35] VITALS: BP 146/78; PULSE 81; TEMP 36.5; O2SAT 95
[2017-08-23 15:55] VITALS: BP 140/71; PULSE 78; TEMP 36.5; O2SAT 91
--- NOTE | 2017-08-23 18:32 | Progress Note ---
Medicine Progress Note Date & Time of Visit: Aug 23, 2017 at 10:27. Subjective Pt was seen and examined Lying in bed with no distress Pt is more awake today denies any chest pain, palpitation, dizziness Objective Last 8 Hrs Date Time Temp Pulse Resp B/P (MAP) Pulse Ox O2 Delivery O2 Flow Rate FiO2 08/23/17 16:00 Room Air 08/23/17 15:55 36.5 78 20 140/71 (94) 91 Room Air 08/23/17 12:00 Room Air 08/23/17 11:35 36.5 81 18 146/78 (100) 95 Room Air Physical Exam: General- No acute distress Head- atraumatic Eyes- PERRL, EOMI ENT- oropharynx clear Neck- supple, no JVD Lungs- clear to auscultation Heart- regular rhythm Abdomen- normal bowel sounds, soft Extremities- 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, 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 Neuro- alert, oriented Skin- warm & dry Laboratory Results: Last 24 Hours Test 08/22/17 19:52 08/23/17 06:37 08/23/17 07:02 08/23/17 11:14 Bedside Glucose 117 mg/dl 82 mg/dl 105 mg/dl White Blood Count 5.68 K/uL Red Blood Count 4.47 M/uL Hemoglobin 12.1 g/dL Hematocrit 36.1 % Mean Corpuscular Volume 80.8 fL Mean Corpuscular Hemoglobin 27.1 pg Mean Corpuscular Hemoglobin Concent 33.5 g/dl Platelet Count 235 K/uL Mean Platelet Volume 9.0 fL Neutrophils (%) (Auto) 72.3 % Lymphocytes (%) (Auto) 19.0 % Monocytes (%) (Auto) 5.8 % Eosinophils (%) (Auto) 2.5 % Basophils (%) (Auto) 0.2 % Neutrophils # (Auto) 4.11 K/uL Lymphocytes # (Auto) 1.08 K/uL Monocytes # (Auto) 0.33 K/uL Eosinophils # (Auto) 0.14 K/uL Basophils # (Auto) 0.01 K/uL RDW Standard Deviation 44.0 fL RDW Coefficient of Variation 15.1 % Immature Granulocyte % (Auto) 0.2 % Immature Granulocyte # (Auto) 0.01 K/uL Sodium Level 140 mmol/L Potassium Level 3.7 mmol/L Chloride Level 105 mmol/L Carbon Dioxide Level 29 mmol/L Anion Gap 6.0 mmol/L Blood Urea Nitrogen 25 mg/dl Creatinine 0.98 mg/dl Est Creatinine Clear Calc Drug Dose 96.7 ml/min Estimated GFR () 92.7 Estimated GFR (Non- 80.0 BUN/Creatinine Ratio 25.6 Random Glucose 86 mg/dl Calcium Level 8.8 mg/dl Total Bilirubin 0.8 mg/dl Aspartate Amino Transf (AST/SGOT) 14 U/L Alanine Aminotransferase (ALT/SGPT) 17 U/L Alkaline Phosphatase 85 U/L Total Protein 6.9 gm/dl Albumin 2.5 gm/dl Globulin 4.4 gm/dl Albumin/Globulin Ratio 0.6 Vancomycin Level Trough 18.2 mcg/ml Test 08/23/17 16:14 Bedside Glucose 156 mg/dl Assessment & Plan Syncope Possible related to Hypoglycemia and Hypotension CT head showed no acute intracranial abnormality BS was in the 30s before arrived in the ER Was started on D10 @ 30ml Clinically stable Hypotension Possible sepsis Blood culture from 08/19/17 with 1 of 2 cultures as alpha strep/not strep pneumo and not enterococci Zosyn has been D/C and continue Vancomycin Repeat blood cx no growth so far Received aggressive IVF BP has been running high BP meds have been putting on hold Resolved HTN BP has been elevated Resumed BP med Continue monitor BP Diabetes Hypoglycemia Received D10 in the ICU BS has been well controlled Will monitor BS closely Pharmacy glycemic control appreciated to continue to follow Hypothyroidism Continue Levothyroxine Stable Ambulatory Dysfunction Continue PT/OT Fall precaution Plan to go to rehab Depression Continue Sertraline Stable Gout Continue Allopurinol Obesity Counseling on smoking cessation DVT ppx heparin subq Code status Full code Current Inpatient Medications: Current Inpatient Medications Medications (Trade) Dose Ordered Sig/Ifeanyi Route Start Time Stop Time Status Last Admin Dose Admin Allopurinol (Zyloprim Tab) 300 mg DAILY PO 08/20/17 09:00 09/19/17 08:59 08/23/17 08:03 300 MG Aspirin (Ecotrin Tab) 81 mg DAILY PO 08/20/17 09:00 09/19/17 08:59 08/23/17 08:04 81 MG Clopidogrel Bisulfate (plAVix TAB) 75 mg QAM PO 08/20/17 09:00 09/19/17 08:59 08/23/17 08:50 75 MG Levothyroxine Sodium (Synthroid Tab) 50 mcg DAILYBB PO 08/20/17 06:00 09/19/17 05:59 08/23/17 06:42 50 MCG Meclizine HCl (Antivert Tab) 25 mg TID PRN PO 08/19/17 12:15 09/18/17 12:14 Sertraline HCl (Zoloft Tab) 100 mg DAILY PO 08/20/17 09:00 09/19/17 08:59 08/23/17 08:04 100 MG Albuterol (Ventolin Hfa Inhaler) 2 puffs Q4H PRN INH 08/19/17 17:00 09/18/17 16:59 08/22/17 05:30 2 PUFFS Vancomycin HCl (Consult) 1 ea UD PRN N/A 08/19/17 12:45 09/18/17 12:44 Heparin Sodium (Porcine) (Heparin Sq 5000 Unit/0.5ml) 5,000 unit Q8 SQ 08/19/17 22:00 09/18/17 13:59 08/23/17 13:02 5,000 UNIT Pantoprazole Sodium (Protonix Tab) 40 mg QAM PO 08/20/17 09:00 08/23/17 23:59 08/23/17 08:04 40 MG Glucose (Glucose 40% Gel) 15-30 GRAMS 15 GRAMS... UD PRN PO 08/19/17 14:15 09/18/17 14:14 Glucose (Glucose Chew Tab) 4-8 Tablets 4 Tabl... UD PRN PO 08/19/17 14:15 09/18/17 14:14 08/20/17 00:22 8 TABS Dextrose (Dextrose 50% 50ML Syringe) 25-50ML OF 50% DW IV FOR... UD PRN IV 08/19/17 14:15 09/18/17 14:14 Glucagon (Glucagon Inj) 1 mg UD PRN SQ 08/19/17 14:15 09/18/17 14:14 Acetaminophen (Tylenol Tab) 650 mg Q4H PRN PO 08/19/17 17:15 09/18/17 17:14 Nitroglycerin (Nitrostat Tab) 0.4 mg UD PRN SL 08/19/17 17:15 09/18/17 17:14 Ondansetron HCl (Zofran Inj) 4 mg Q6H PRN IV 08/19/17 17:15 09/18/17 17:14 Pregabalin (Lyrica Cap) 25 mg BID PO 08/20/17 09:00 09/19/17 08:59 08/23/17 08:11 25 MG Furosemide 80 mg/ Syringe 8 ml @ 4 mls/min DAILY IV 08/20/17 10:00 09/19/17 09:59 08/23/17 08:04 4 MLS/MIN Miscellaneous Information (Consult Glycemic Management Pharmacy) 1 ea UD PRN N/A 08/21/17 08:34 09/20/17 08:33 Insulin Aspart (novoLOG ASPART) SLIDING SCALE G... ACHS SC 08/21/17 11:00 09/20/17 10:59 08/23/17 18:14 5 UNITS Vancomycin HCl 1250 mg/Sodium Chloride 275 ml @ 125 mls/hr Q18H IV 08/21/17 20:00 10/02/17 19:59 08/23/17 08:11 125 MLS/HR Metoprolol Tartrate (Lopressor Iv) 2.5 mg Q6H PRN IV 08/22/17 19:45 09/21/17 19:44 Losartan Potassium (coZAAR TAB) 25 mg DAILY PO 08/24/17 09:00 09/23/17 08:59 Metoprolol Succinate (Toprol Xl Tab) 25 mg BID PO 08/23/17 21:00 09/22/17 20:59 Insulin Detemir (Levemir Flexpen/ FlexTouch) 15 units QAM SQ 08/24/17 09:00 09/23/17 08:59 Insulin Detemir (Levemir Flexpen/ FlexTouch) 10 units HS SQ 08/23/17 21:00 09/22/17 20:59
[2017-08-23] MEDS ORDERED: FUROSEMIDE INJ 40 MG in SYRINGE 0 ML IV ONE (18:45)
[2017-08-23 19:45] VITALS: BP 118/82; PULSE 76; TEMP 36.6; O2SAT 96
[2017-08-23] MEDS: METOPROLOL SUCC 25MG EXT REL TAB PO SCH (20:47)
[2017-08-23 23:29] VITALS: BP 148/84; PULSE 76; TEMP 36.9; O2SAT 95
[2017-08-24] VITALS (7 sets, daily range): BP systolic 129–155; BP diastolic 78–84; PULSE 66–78; TEMP 34.2–36.8; O2SAT 92–97
[2017-08-24] MEDS: VANCOMYCIN INJ 1,250 MG in SODIUM CHLORIDE 0.9% 250ML 250 ML IV SCH ×2 (03:33→21:10)
[2017-08-24] MEDS: LEVOTHYROXINE 50 MCG TAB PO SCH (05:38)
[2017-08-24] MEDS: HEPARIN SOD 5000 UNIT/0.5 ML CARP SQ SCH ×3 (05:39→21:21)
[2017-08-24 06:24] LABS: BASO % 0.5 %; BASO ABS # 0.03 K/uL (0-0.2); COMPLETE YES; EOS % 2.4 %; HEMATOCRIT 36.5 % (42-52); IG% 0.3 %; LYMPH % 15.8 %; LYMPH ABS # 0.93 K/uL (1.2-3.4); MEAN CELL VOLUME 80.8 fL (80-100); MEAN CORPUSCULAR HEMOGLOBIN 26.3 pg (25-34); MEAN CORPUSCULAR HGB CONC 32.6 g/dl (32-36); MONO % 6.1 %; NEUT % 74.9 %; PLATELET COUNT 235 K/uL (130-400); RED BLOOD COUNT 4.52 M/uL (4.7-6.1); WHITE BLOOD COUNT 5.87 K/uL (4.8-10.8)
[2017-08-24] MEDS: INSULIN ASPART 100 UNITS/ML 3 ML PEN SC SCH ×4 (07:00→21:00)
[2017-08-24] MEDS: ALLOPURINOL 100 MG TAB PO SCH (07:24)
[2017-08-24] MEDS: PREGABALIN 25MG CAP PO SCH ×2 (07:24→21:23)
[2017-08-24] MEDS: ASPIRIN 81 MG ECTAB PO SCH (07:24)
[2017-08-24] MEDS: CLOPIDOGREL BISULFATE 75 MG TAB PO SCH (07:24)
[2017-08-24] MEDS: METOPROLOL SUCC 25MG EXT REL TAB PO SCH ×2 (07:25→21:16)
[2017-08-24] MEDS: LOSARTAN POTASSIUM 25 MG TAB PO SCH (07:25)
[2017-08-24] MEDS: FUROSEMIDE INJ 80 MG in SYRINGE 0 ML IV SCH (07:25)
[2017-08-24] MEDS: SERTRALINE HCL 100 MG TAB PO SCH (07:26)
[2017-08-24] MEDS: INSULIN DETEMIR FLEXPEN/FLEX TOUCH 100 UNITS/ML 3ML SQ SCH ×2 (07:41→21:11)
--- NOTE | 2017-08-24 17:47 | Progress Note ---
Medicine Progress Note Date & Time of Visit: Aug 24, 2017 at 11:30. Subjective Pt was seen and examined Sitting at the edge of the bed with no distress Pt said that he feels same he would like to discharge home discussed with pt that he would need assistant strength coach to go home Pt has not tried to make any effort to use the toilet He defecated on the bed. He said that at home his cleans him after defecating on him. 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, 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 Neuro- alert, oriented Skin- warm & dry Laboratory Results: Last 24 Hours Test 08/23/17 20:53 08/24/17 05:59 08/24/17 11:39 08/24/17 16:09 Bedside Glucose 166 mg/dl 202 mg/dl 161 mg/dl White Blood Count 5.87 K/uL Red Blood Count 4.52 M/uL Hemoglobin 11.9 g/dL Hematocrit 36.5 % Mean Corpuscular Volume 80.8 fL Mean Corpuscular Hemoglobin 26.3 pg Mean Corpuscular Hemoglobin Concent 32.6 g/dl Platelet Count 235 K/uL Mean Platelet Volume 9.0 fL Neutrophils (%) (Auto) 74.9 % Lymphocytes (%) (Auto) 15.8 % Monocytes (%) (Auto) 6.1 % Eosinophils (%) (Auto) 2.4 % Basophils (%) (Auto) 0.5 % Neutrophils # (Auto) 4.39 K/uL Lymphocytes # (Auto) 0.93 K/uL Monocytes # (Auto) 0.36 K/uL Eosinophils # (Auto) 0.14 K/uL Basophils # (Auto) 0.03 K/uL RDW Standard Deviation 43.8 fL RDW Coefficient of Variation 15.0 % Immature Granulocyte % (Auto) 0.3 % Immature Granulocyte # (Auto) 0.02 K/uL Assessment & Plan Syncope Possible related to Hypoglycemia and Hypotension CT head showed no acute intracranial abnormality BS was in the 30s before arrived in the ER Was started on D10 @ 30ml Clinically stable Hypotension Possible sepsis Blood culture from 08/19/17 with 1 of 2 cultures as alpha strep/not strep pneumo and not enterococci Zosyn has been D/C and continue Vancomycin Repeat blood cx no growth so far Received aggressive IVF BP has been running high BP meds have been putting on hold Resolved Acute on chronic CHF CXR showed cardiomegaly with volume overload. Continue IV lasix has been diuresis well output about 12L Fluid restriction to 1.5L daily HTN BP improved Continue monitor BP Diabetes Hypoglycemia Received D10 in the ICU BS has been well controlled Lantus was decreased Will monitor BS closely Pharmacy glycemic control appreciated to continue to follow Hypothyroidism Continue Levothyroxine Stable Ambulatory Dysfunction Continue PT/OT Fall precaution Plan to go to rehab Depression Continue Sertraline Stable Gout Continue Allopurinol Obesity Counseling on smoking cessation DVT ppx heparin subq Code status Full code Current Inpatient Medications: Current Inpatient Medications Medications (Trade) Dose Ordered Sig/Ifeanyi Route Start Time Stop Time Status Last Admin Dose Admin Allopurinol (Zyloprim Tab) 300 mg DAILY PO 08/20/17 09:00 09/19/17 08:59 08/24/17 07:24 300 MG Aspirin (Ecotrin Tab) 81 mg DAILY PO 08/20/17 09:00 09/19/17 08:59 08/24/17 07:24 81 MG Clopidogrel Bisulfate (plAVix TAB) 75 mg QAM PO 08/20/17 09:00 09/19/17 08:59 08/24/17 07:24 75 MG Levothyroxine Sodium (Synthroid Tab) 50 mcg DAILYBB PO 08/20/17 06:00 09/19/17 05:59 08/24/17 05:38 50 MCG Meclizine HCl (Antivert Tab) 25 mg TID PRN PO 08/19/17 12:15 09/18/17 12:14 Sertraline HCl (Zoloft Tab) 100 mg DAILY PO 08/20/17 09:00 09/19/17 08:59 08/24/17 07:26 100 MG Albuterol (Ventolin Hfa Inhaler) 2 puffs Q4H PRN INH 08/19/17 17:00 09/18/17 16:59 08/22/17 05:30 2 PUFFS Vancomycin HCl (Consult) 1 ea UD PRN N/A 08/19/17 12:45 09/18/17 12:44 Heparin Sodium (Porcine) (Heparin Sq 5000 Unit/0.5ml) 5,000 unit Q8 SQ 08/19/17 22:00 09/18/17 13:59 08/24/17 13:48 5,000 UNIT Glucose (Glucose 40% Gel) 15-30 GRAMS 15 GRAMS... UD PRN PO 08/19/17 14:15 09/18/17 14:14 Glucose (Glucose Chew Tab) 4-8 Tablets 4 Tabl... UD PRN PO 08/19/17 14:15 09/18/17 14:14 08/20/17 00:22 8 TABS Dextrose (Dextrose 50% 50ML Syringe) 25-50ML OF 50% DW IV FOR... UD PRN IV 08/19/17 14:15 09/18/17 14:14 Glucagon (Glucagon Inj) 1 mg UD PRN SQ 08/19/17 14:15 09/18/17 14:14 Acetaminophen (Tylenol Tab) 650 mg Q4H PRN PO 08/19/17 17:15 09/18/17 17:14 Nitroglycerin (Nitrostat Tab) 0.4 mg UD PRN SL 08/19/17 17:15 09/18/17 17:14 Ondansetron HCl (Zofran Inj) 4 mg Q6H PRN IV 08/19/17 17:15 09/18/17 17:14 Pregabalin (Lyrica Cap) 25 mg BID PO 08/20/17 09:00 09/19/17 08:59 08/24/17 07:24 25 MG Furosemide 80 mg/ Syringe 8 ml @ 4 mls/min DAILY IV 08/20/17 10:00 09/19/17 09:59 08/24/17 07:25 4 MLS/MIN Miscellaneous Information (Consult Glycemic Management Pharmacy) 1 ea UD PRN N/A 08/21/17 08:34 09/20/17 08:33 Insulin Aspart (novoLOG ASPART) SLIDING SCALE G... ACHS SC 08/21/17 11:00 09/20/17 10:59 08/24/17 13:46 4 UNITS Vancomycin HCl 1250 mg/Sodium Chloride 275 ml @ 125 mls/hr Q18H IV 08/21/17 20:00 10/02/17 19:59 08/24/17 03:33 125 MLS/HR Metoprolol Tartrate (Lopressor Iv) 2.5 mg Q6H PRN IV 08/22/17 19:45 09/21/17 19:44 Losartan Potassium (coZAAR TAB) 25 mg DAILY PO 08/24/17 09:00 09/23/17 08:59 08/24/17 07:25 25 MG Metoprolol Succinate (Toprol Xl Tab) 25 mg BID PO 08/23/17 21:00 09/22/17 20:59 08/24/17 07:25 25 MG Insulin Detemir (Levemir Flexpen/ FlexTouch) 15 units QAM SQ 08/24/17 09:00 09/23/17 08:59 08/24/17 07:41 15 UNITS Insulin Detemir (Levemir Flexpen/ FlexTouch) 10 units HS SQ 08/23/17 21:00 09/22/17 20:59 08/23/17 21:00 10 UNITS
[2017-08-24] MEDS ORDERED: FUROSEMIDE INJ 60 MG in SYRINGE 0 ML IV ONE (19:00)
[2017-08-25] MEDS: LEVOTHYROXINE 50 MCG TAB PO SCH (05:46)
[2017-08-25] MEDS: HEPARIN SOD 5000 UNIT/0.5 ML CARP SQ SCH ×3 (05:52→21:18)
[2017-08-25] MEDS: INSULIN ASPART 100 UNITS/ML 3 ML PEN SC SCH ×4 (06:30→21:17)
[2017-08-25 07:40] VITALS: BP 139/78; PULSE 63; TEMP 36.4; O2SAT 95
[2017-08-25 08:00] VITALS: O2SAT 95
[2017-08-25] MEDS: METOPROLOL SUCC 25MG EXT REL TAB PO SCH ×2 (08:08→21:16)
[2017-08-25] MEDS: PREGABALIN 25MG CAP PO SCH ×2 (08:08→21:16)
[2017-08-25] MEDS: FUROSEMIDE 80 MG TAB PO SCH ×2 (08:08→17:42)
[2017-08-25] MEDS: SERTRALINE HCL 100 MG TAB PO SCH (08:08)
[2017-08-25] MEDS: LOSARTAN POTASSIUM 25 MG TAB PO SCH (08:08)
[2017-08-25] MEDS: ALLOPURINOL 100 MG TAB PO SCH (08:09)
[2017-08-25] MEDS: ASPIRIN 81 MG ECTAB PO SCH (08:09)
[2017-08-25] MEDS: CLOPIDOGREL BISULFATE 75 MG TAB PO SCH (08:09)
[2017-08-25] MEDS: INSULIN DETEMIR FLEXPEN/FLEX TOUCH 100 UNITS/ML 3ML SQ SCH ×2 (08:15→21:18)
[2017-08-25 08:19] LABS: BUN/CREATININE RATIO 23.7 (10-20); CALCIUM 9.2 mg/dl (8.5-10.1); CREATININE 1.13 mg/dl (0.60-1.40); POTASSIUM 3.4 mmol/L (3.5-5.1)
[2017-08-25] MEDS ORDERED: POTASSIUM CHLORIDE 20 MEQ TABCR PO ONE (09:15)
--- NOTE | 2017-08-25 13:23 | Pharmacy Progress Note ---
Pharmacy Glycemic Short Note 2 Date of Service Aug 25, 2017. OUTPATIENT ANTIDIABETIC REGIMEN: * Levemir 25 units SQ BID * Regular insulin 3 units daily with breakfast and dinner * Glyburide 5mg PO daily * HbA1c: 9.2% (06/20/17) ASSESSMENT: * Mr Koroma is a 66yo diabetic male, admitted with sepsis/persistent hypoglycemia. He is well known to the pharmacy glycemic management service from past admissions. * Patient has received 34 units of insulin per day for the past 2 days, with relatively well-controlled BSGs. * Pt is ordered a type 2 diabetic diet, which he appears to be tolerating. * No changes at this time. PLAN FOR INPATIENT GLYCEMIC CONTROL: * Hold outpatient oral diabetes medications * Basal insulin * Lantus 15 units SQ qAM, 10 units SQ qPM * Bolus insulin * NovoLog per scale ACHS or Q6hrs while NPO * Goal Range: Low 140 mg/dL - High 180 mg/dL * Correction Factor: 30 mg/dL/unit * Nutritional / Prandial insulin per carb ratio of 1 unit per 10 grams CHO consumed PLAN FOR DISCHARGE: * Patient presented to hospital with prolonged hypoglycemia. Recent A1c (9.2%) also indicates that patient experiences a fair amount of hyperglycemia. * Recommend close f/u with PCP/auto roller after discharge in order to fine- tune his outpatient regimen. Need to titrate regimen to goal range (control hyperglycemia while also minimizing patient's hypoglycemic episodes).
[2017-08-25] MEDS ORDERED: VANCOMYCIN TROUGH ONE (13:30)
[2017-08-25] MEDS: VANCOMYCIN INJ 1,250 MG in SODIUM CHLORIDE 0.9% 250ML 250 ML IV SCH (13:44)
--- NOTE | 2017-08-25 14:38 | Pharmacy Progress Note ---
Pharmacy Abx Dose Short Note Date of Service Aug 25, 2017. Assessment & Plan Lvl came back therapeutic at 18.4mcg/mL. Css achieved w/ concurrent stable renal fxn: will not order any further troughs for the time being. May want to order trough if renal fxn fluctuates. It's noted that his habitus is indicative of Vanco accumulation but he has been stable on this dose for 5 days. Pharmacy will continue to follow and will adjust dose/frequency as necessary. Thank you.
[2017-08-25 15:31] VITALS: BP 134/83; PULSE 74; TEMP 36.2; O2SAT 97
[2017-08-25 17:45] VITALS: O2SAT 97
[2017-08-25 18:42] VITALS: BP 134/83; PULSE 74; TEMP 36.2; O2SAT 97
--- NOTE | 2017-08-25 19:02 | Progress Note ---
Medicine Progress Note Date & Time of Visit: Aug 25, 2017 at 10:56. Subjective Pt was seen and examined Lying in bed with no distress Pt said that he feels much better today He still continue to defecate on himself advised pt to make an effort to ask the staff to help him to try to use the bathroom Denies any chest pain, palpitation and SOB Objective Last 8 Hrs Date Time Temp Pulse Resp B/P (MAP) Pulse Ox O2 Delivery O2 Flow Rate FiO2 08/25/17 18:42 36.2 74 18 97 08/25/17 17:45 97 Room Air 08/25/17 15:31 36.2 74 18 134/83 (100) 97 Room Air Physical Exam: General- No acute distress Head- atraumatic Eyes- PERRL, EOMI ENT- oropharynx clear Neck- supple, no JVD Lungs- clear to auscultation Heart- regular rhythm Abdomen- normal bowel sounds, soft Extremities- 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, 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 Neuro- alert, oriented Skin- warm & dry Laboratory Results: Last 24 Hours Test 08/24/17 20:33 08/25/17 07:07 08/25/17 07:37 08/25/17 11:22 Bedside Glucose 161 mg/dl 113 mg/dl 192 mg/dl Sodium Level 140 mmol/L Potassium Level 3.4 mmol/L Chloride Level 104 mmol/L Carbon Dioxide Level 29 mmol/L Anion Gap 7.0 mmol/L Blood Urea Nitrogen 27 mg/dl Creatinine 1.13 mg/dl Est Creatinine Clear Calc Drug Dose 83.6 ml/min Estimated GFR () 78.1 Estimated GFR (Non- 67.4 BUN/Creatinine Ratio 23.7 Random Glucose 113 mg/dl Calcium Level 9.2 mg/dl Test 08/25/17 13:26 08/25/17 16:27 Vancomycin Level Trough 18.4 mcg/ml Bedside Glucose 224 mg/dl Assessment & Plan Syncope Possible related to Hypoglycemia and Hypotension CT head showed no acute intracranial abnormality BS was in the 30s before arrived in the ER Was started on D10 @ 30ml Clinically stable Hypotension Possible sepsis Blood culture from 08/19/17 with 1 of 2 cultures as alpha strep/not strep pneumo and not enterococci Zosyn has been D/C and continue Vancomycin Repeat blood cx no growth so far Received aggressive IVF BP has been running high BP meds have been putting on hold Resolved Acute on chronic CHF CXR showed cardiomegaly with volume overload. D/C IV lasix Starting on lasix 80mg BID po has been diuresis well output about 12L Fluid restriction to 1.5L daily Stable HTN BP improved Continue monitor BP Diabetes Hypoglycemia Received D10 in the ICU BS has been well controlled Lantus was decreased Will monitor BS closely Pharmacy glycemic control appreciated to continue to follow Hypothyroidism Continue Levothyroxine Stable Ambulatory Dysfunction Continue PT/OT Fall precaution Plan to go to rehab Depression Continue Sertraline Stable Gout Continue Allopurinol Obesity Counseling on smoking cessation DVT ppx heparin subq Code status Full code Disposition Waiting for placement to rehab or SNF Current Inpatient Medications: Current Inpatient Medications Medications (Trade) Dose Ordered Sig/Ifeanyi Route Start Time Stop Time Status Last Admin Dose Admin Allopurinol (Zyloprim Tab) 300 mg DAILY PO 08/20/17 09:00 09/19/17 08:59 08/25/17 08:09 300 MG Aspirin (Ecotrin Tab) 81 mg DAILY PO 08/20/17 09:00 09/19/17 08:59 08/25/17 08:09 81 MG Clopidogrel Bisulfate (plAVix TAB) 75 mg QAM PO 08/20/17 09:00 09/19/17 08:59 08/25/17 08:09 75 MG Levothyroxine Sodium (Synthroid Tab) 50 mcg DAILYBB PO 08/20/17 06:00 09/19/17 05:59 08/25/17 05:46 50 MCG Meclizine HCl (Antivert Tab) 25 mg TID PRN PO 08/19/17 12:15 09/18/17 12:14 Sertraline HCl (Zoloft Tab) 100 mg DAILY PO 08/20/17 09:00 09/19/17 08:59 08/25/17 08:08 100 MG Albuterol (Ventolin Hfa Inhaler) 2 puffs Q4H PRN INH 08/19/17 17:00 09/18/17 16:59 08/22/17 05:30 2 PUFFS Vancomycin HCl (Consult) 1 ea UD PRN N/A 08/19/17 12:45 09/18/17 12:44 Heparin Sodium (Porcine) (Heparin Sq 5000 Unit/0.5ml) 5,000 unit Q8 SQ 08/19/17 22:00 09/18/17 13:59 08/25/17 13:49 5,000 UNIT Glucose (Glucose 40% Gel) 15-30 GRAMS 15 GRAMS... UD PRN PO 08/19/17 14:15 09/18/17 14:14 Glucose (Glucose Chew Tab) 4-8 Tablets 4 Tabl... UD PRN PO 08/19/17 14:15 09/18/17 14:14 08/20/17 00:22 8 TABS Dextrose (Dextrose 50% 50ML Syringe) 25-50ML OF 50% DW IV FOR... UD PRN IV 08/19/17 14:15 09/18/17 14:14 Glucagon (Glucagon Inj) 1 mg UD PRN SQ 08/19/17 14:15 09/18/17 14:14 Acetaminophen (Tylenol Tab) 650 mg Q4H PRN PO 08/19/17 17:15 09/18/17 17:14 Nitroglycerin (Nitrostat Tab) 0.4 mg UD PRN SL 08/19/17 17:15 09/18/17 17:14 Ondansetron HCl (Zofran Inj) 4 mg Q6H PRN IV 08/19/17 17:15 09/18/17 17:14 Pregabalin (Lyrica Cap) 25 mg BID PO 08/20/17 09:00 09/19/17 08:59 08/25/17 08:08 25 MG Miscellaneous Information (Consult Glycemic Management Pharmacy) 1 ea UD PRN N/A 08/21/17 08:34 09/20/17 08:33 Insulin Aspart (novoLOG ASPART) SLIDING SCALE G... ACHS SC 08/21/17 11:00 09/20/17 10:59 08/25/17 17:40 5 UNITS Vancomycin HCl 1250 mg/Sodium Chloride 275 ml @ 125 mls/hr Q18H IV 08/21/17 20:00 10/02/17 19:59 08/25/17 13:44 125 MLS/HR Metoprolol Tartrate (Lopressor Iv) 2.5 mg Q6H PRN IV 08/22/17 19:45 09/21/17 19:44 Losartan Potassium (coZAAR TAB) 25 mg DAILY PO 08/24/17 09:00 09/23/17 08:59 08/25/17 08:08 25 MG Metoprolol Succinate (Toprol Xl Tab) 25 mg BID PO 08/23/17 21:00 09/22/17 20:59 08/25/17 08:08 25 MG Insulin Detemir (Levemir Flexpen/ FlexTouch) 15 units QAM SQ 08/24/17 09:00 09/23/17 08:59 08/25/17 08:15 15 UNITS Insulin Detemir (Levemir Flexpen/ FlexTouch) 10 units HS SQ 08/23/17 21:00 09/22/17 20:59 08/24/17 21:11 10 UNITS Furosemide (Lasix Tab) 80 mg BID17 PO 08/25/17 09:00 09/24/17 08:59 08/25/17 17:42 80 MG
[2017-08-25 23:59] VITALS: BP 141/83; PULSE 80; TEMP 36.5; O2SAT 93
--- NOTE | 2017-08-26 01:16 | Progress Note ---
Post ICU Progress Note Date & Time Aug 25, 2017 Late Entry Vital Signs Vital Signs Past 12 Hours Date Time Temp Pulse Resp B/P (MAP) Pulse Ox O2 Delivery O2 Flow Rate FiO2 08/25/17 23:59 36.5 80 20 141/83 (102) 93 Room Air 08/25/17 18:42 36.2 74 18 97 08/25/17 17:45 97 Room Air 08/25/17 15:31 36.2 74 18 134/83 (100) 97 Room Air Notes Mental Status: see Notes (Asleep) Nausea / Vomiting: adequately controlled Pain: adequately controlled Airway Patency, RR, SpO2: stable & adequate (Improved. Pt now on room air with adequate saturations.) BP & HR: stable & adequate (BP improved SBP 139-141) Rogelio Koroma is a 66yo male who presented to the ICU on 08/19 for hypertension and hypoglycemia after being found by his confused and unable to answer questions on the floor. Pt was initially found to have a glucose of 200 by EMS but upon reevaluation in the ED glucose was 30 and SBP was in the 60' s. Pt was treated with 3L NSS resuscitation and dextrose and transferred to the ICU. Upon examination in the ICU, pt was asymptomatic of his prior diagnoses. A source for sepsis could not be found. Pt continued to have bouts of hypoglycemia and required a D10 drip; however, there was discrepancy between lab glucose draws and POC bedside levels. Pt required diuresis secondary to aggressive fluid resuscitation and know EF of 15%, CHF, Cardiomyopathy with defibrillator in place. Pts hypoglycemia resolved, home dm medications were started and he was transferred to the floor with requiring invasive monitoring, intubations, or central access. Upon my visit today pt is asleep. I have spoke at length with his nurse who has no ongoing hemodynamic concerns for him. In fact, his glucose range today was 113 in the AM to now 280 in the PM. Pt is on glycemic control consult with pharmacy and is receiving Levemir 10U at bedtime and 15U in the AM with SSI in the interim. Pt is to be transferred to rehab next week based on insurance approval. Consider outpatient follow up in 1 to 2 weeks of discharge from rehab with PCP Repeat imaging needed: N/A Follow up cultures: N.A Reviewed progress notes, labs, and inpatient medication list Continue current management Additional recommendations: Recommend touching base with pharmacy for tighter control of glucose CCM will sign off at this time. Thank you for including us in the care of this pt; please feel free to reconsult as needed. Consults & Procedures Consultants: Critical care Wound Consult Glycemic Control Consult Procedures: None
[2017-08-26] MEDS: HEPARIN SOD 5000 UNIT/0.5 ML CARP SQ SCH ×2 (06:34→14:23)
[2017-08-26] MEDS: LEVOTHYROXINE 50 MCG TAB PO SCH (06:35)
[2017-08-26 08:08] VITALS: BP 145/82; PULSE 72; TEMP 36.3; O2SAT 93
[2017-08-26 08:29] LABS: BUN/CREATININE RATIO 27.4 (10-20); CALCIUM 9.1 mg/dl (8.5-10.1); CREATININE 1.1 mg/dl (0.60-1.40); POTASSIUM 3.4 mmol/L (3.5-5.1)
[2017-08-26] MEDS: VANCOMYCIN INJ 1,250 MG in SODIUM CHLORIDE 0.9% 250ML 250 ML IV SCH (09:05)
[2017-08-26] MEDS: ASPIRIN 81 MG ECTAB PO SCH (09:06)
[2017-08-26] MEDS: LOSARTAN POTASSIUM 25 MG TAB PO SCH (09:06)
[2017-08-26] MEDS: METOPROLOL SUCC 25MG EXT REL TAB PO SCH (09:07)
[2017-08-26] MEDS: CLOPIDOGREL BISULFATE 75 MG TAB PO SCH (09:07)
[2017-08-26] MEDS: ALLOPURINOL 100 MG TAB PO SCH (09:08)
[2017-08-26] MEDS: SERTRALINE HCL 100 MG TAB PO SCH (09:08)
[2017-08-26] MEDS: INSULIN ASPART 100 UNITS/ML 3 ML PEN SC SCH ×2 (09:23→13:22)
[2017-08-26] MEDS: INSULIN DETEMIR FLEXPEN/FLEX TOUCH 100 UNITS/ML 3ML SQ SCH (09:24)
[2017-08-26] MEDS: PREGABALIN 25MG CAP PO SCH (10:19)
[2017-08-26] MEDS ORDERED: POTASSIUM CHLORIDE 20 MEQ TABCR PO ONE (10:30)
--- NOTE | 2017-08-26 11:23 | Pharmacy Progress Note ---
Glycemic Control Progress Note Date of Service Aug 26, 2017. Scope Glycemic Pharmacist consulted for glycemic control to write orders per [facility] inpatient glycemic control protocol. Objective Accuchecks BSG (last 24hrs): Test 08/25/17 11:22 08/25/17 16:27 08/25/17 20:45 08/26/17 06:58 Bedside Glucose 192 mg/dl (70-99) 224 mg/dl (70-99) 280 mg/dl (70-99) Random Glucose 166 mg/dl (70-99) Test 08/26/17 07:54 Bedside Glucose 166 mg/dl (70-99) HbA1c: 9.2% 06/20/17 Recent Pertinent Medications The patient is currently receiving: * Basal insulin: Levemir 15 units Q AM + 10 units Q PM * Correctional Insulin: Novolog Correction per scale ACHS Goal Range: Low 140 mg/dL - High 180 mg/dL Correction Factor: 30 mg/dL/unit * Prandial insulin: Per carb ratio of 1 unit per 10 grams CHO consumed * Oral Agents: None currently Outpatient Anti-Diabetic Meds * Levemir 25 units SQ BID * Regular insulin 3 units daily with breakfast and dinner * Glyburide 5mg PO daily * HbA1c: 9.2% (06/20/17) Assessment & Plan ASSESSMENT: 08/26/17 * BSGs have ranged 113-280 over the last 24 hours * He has also received more insulin over the last 24 hrs; 41 units SQ in total * Fasting AM BSG somewhat elevated this AM w/ 25 units Levemir on board, still an acceptable FBS however. I am not inclined to increase his Levemir dose as this AM's result is not consistent with the FBS pattern we have observed on the current Levemir dose. * Post-prandial BSGs consistently elevated yesterday and climbed as the day progressed. Will adjust CR and CF PLAN FOR INPATIENT GLYCEMIC CONTROL: * Continuing Levemir 15units Q AM + 10 units Q PM * Changing correction factor to 25 mg/dl/unit * Changing carb ratio to 1 unit per 8 grams CHO consumed * Changing goal range to Low 120 mg/dL - High 160 mg/dL * Please note that the plan above was derived based on current level of insulin resistance and hospital stress. These recommendations are appropriate for inpatient admission only. Plan of care upon discharge will need to be reassessed to avoid potential outpatient hypo/hyperglycemia. Thank you.
[2017-08-26] MEDS: FUROSEMIDE 80 MG TAB PO SCH (11:29)
--- NOTE | 2017-08-26 12:32 | Progress Note ---
Medicine Progress Note Date & Time of Visit: Aug 26, 2017 at 12:24. Subjective Pt was seen and examined Lying in bed with no distress Pt said that he feels OK He has not defecated on him since after talking with him about asking for help. Denies any chest pain, palpitation, dizziness and SOB Objective Last 8 Hrs Date Time Temp Pulse Resp B/P (MAP) Pulse Ox O2 Delivery O2 Flow Rate FiO2 08/26/17 08:20 Room Air 08/26/17 08:08 36.3 72 20 145/82 (103) 93 Physical Exam: General- No acute distress Head- atraumatic Eyes- PERRL, EOMI ENT- oropharynx clear Neck- supple, no JVD Lungs- clear to auscultation Heart- regular rhythm Abdomen- normal bowel sounds, soft Extremities- 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, BKA in LLE Neuro- alert, oriented Skin- warm & dry Laboratory Results: Last 24 Hours Test 08/25/17 13:26 08/25/17 16:27 08/25/17 20:45 08/26/17 06:58 Vancomycin Level Trough 18.4 mcg/ml Bedside Glucose 224 mg/dl 280 mg/dl Sodium Level 141 mmol/L Potassium Level 3.4 mmol/L Chloride Level 103 mmol/L Carbon Dioxide Level 31 mmol/L Anion Gap 7.0 mmol/L Blood Urea Nitrogen 30 mg/dl Creatinine 1.10 mg/dl Est Creatinine Clear Calc Drug Dose 85.8 ml/min Estimated GFR () 80.6 Estimated GFR (Non- 69.6 BUN/Creatinine Ratio 27.4 Random Glucose 166 mg/dl Calcium Level 9.1 mg/dl Test 08/26/17 07:54 08/26/17 11:02 Bedside Glucose 166 mg/dl 214 mg/dl Assessment & Plan Syncope Possible related to Hypoglycemia and Hypotension CT head showed no acute intracranial abnormality BS was in the 30s before arrived in the ER Was started on D10 @ 30ml Clinically stable Hypotension Possible sepsis Blood culture from 08/19/17 with 1 of 2 cultures as alpha strep/not strep pneumo and not enterococci Zosyn has been D/C Has been on Vancomycin since 08/19 Repeat blood cx no growth No ID official consult placed, but case discussed with ID Dr. Daniels Case discussed with ID about blood cx result on 08/19, believe it was contamination ID recommend to d/c Vanco for now and if spike any fever to start abx Received aggressive IVF BP has been running high BP meds have been putting on hold Resolved Acute on chronic CHF CXR showed cardiomegaly with volume overload. D/C IV lasix Starting on lasix 80mg BID po has been diuresis well output about 12L Fluid restriction to 1.5L daily Stable HTN BP improved Continue monitor BP Diabetes Hypoglycemia Received D10 in the ICU BS has been well controlled Lantus was decreased Continue titrate lantus if needed Pharmacy glycemic control appreciated to continue to follow Hypothyroidism Continue Levothyroxine Stable Ambulatory Dysfunction Continue PT/OT Fall precaution Will go to rehab today Depression Continue Sertraline Stable Gout Continue Allopurinol Obesity Counseling on smoking cessation DVT ppx heparin subq Code status Full code Disposition Will transfer to rehab today Consultants: Erp Manager Current Inpatient Medications: Current Inpatient Medications Medications (Trade) Dose Ordered Sig/Ifeanyi Route Start Time Stop Time Status Last Admin Dose Admin Allopurinol (Zyloprim Tab) 300 mg DAILY PO 08/20/17 09:00 09/19/17 08:59 08/26/17 09:08 300 MG Aspirin (Ecotrin Tab) 81 mg DAILY PO 08/20/17 09:00 09/19/17 08:59 08/26/17 09:06 81 MG Clopidogrel Bisulfate (plAVix TAB) 75 mg QAM PO 08/20/17 09:00 09/19/17 08:59 08/26/17 09:07 75 MG Levothyroxine Sodium (Synthroid Tab) 50 mcg DAILYBB PO 08/20/17 06:00 09/19/17 05:59 08/26/17 06:35 50 MCG Meclizine HCl (Antivert Tab) 25 mg TID PRN PO 08/19/17 12:15 09/18/17 12:14 Sertraline HCl (Zoloft Tab) 100 mg DAILY PO 08/20/17 09:00 09/19/17 08:59 08/26/17 09:08 100 MG Albuterol (Ventolin Hfa Inhaler) 2 puffs Q4H PRN INH 08/19/17 17:00 09/18/17 16:59 08/22/17 05:30 2 PUFFS Vancomycin HCl (Consult) 1 ea UD PRN N/A 08/19/17 12:45 09/18/17 12:44 Heparin Sodium (Porcine) (Heparin Sq 5000 Unit/0.5ml) 5,000 unit Q8 SQ 08/19/17 22:00 09/18/17 13:59 08/26/17 06:34 5,000 UNIT Glucose (Glucose 40% Gel) 15-30 GRAMS 15 GRAMS... UD PRN PO 08/19/17 14:15 09/18/17 14:14 Glucose (Glucose Chew Tab) 4-8 Tablets 4 Tabl... UD PRN PO 08/19/17 14:15 09/18/17 14:14 08/20/17 00:22 8 TABS Dextrose (Dextrose 50% 50ML Syringe) 25-50ML OF 50% DW IV FOR... UD PRN IV 08/19/17 14:15 09/18/17 14:14 Glucagon (Glucagon Inj) 1 mg UD PRN SQ 08/19/17 14:15 09/18/17 14:14 Acetaminophen (Tylenol Tab) 650 mg Q4H PRN PO 08/19/17 17:15 09/18/17 17:14 Nitroglycerin (Nitrostat Tab) 0.4 mg UD PRN SL 08/19/17 17:15 09/18/17 17:14 Ondansetron HCl (Zofran Inj) 4 mg Q6H PRN IV 08/19/17 17:15 09/18/17 17:14 Pregabalin (Lyrica Cap) 25 mg BID PO 08/20/17 09:00 09/19/17 08:59 08/26/17 10:19 25 MG Miscellaneous Information (Consult Glycemic Management Pharmacy) 1 ea UD PRN N/A 08/21/17 08:34 09/20/17 08:33 Insulin Aspart (novoLOG ASPART) SLIDING SCALE G... ACHS SC 08/21/17 11:00 09/20/17 10:59 08/26/17 09:23 3 UNITS Vancomycin HCl 1250 mg/Sodium Chloride 275 ml @ 125 mls/hr Q18H IV 08/21/17 20:00 10/02/17 19:59 08/26/17 09:05 125 MLS/HR Metoprolol Tartrate (Lopressor Iv) 2.5 mg Q6H PRN IV 08/22/17 19:45 09/21/17 19:44 Losartan Potassium (coZAAR TAB) 25 mg DAILY PO 08/24/17 09:00 09/23/17 08:59 08/26/17 09:06 25 MG Metoprolol Succinate (Toprol Xl Tab) 25 mg BID PO 08/23/17 21:00 09/22/17 20:59 08/26/17 09:07 25 MG Insulin Detemir (Levemir Flexpen/ FlexTouch) 15 units QAM SQ 08/24/17 09:00 09/23/17 08:59 08/26/17 09:24 15 UNITS Insulin Detemir (Levemir Flexpen/ FlexTouch) 10 units HS SQ 08/23/17 21:00 09/22/17 20:59 08/25/17 21:18 10 UNITS Furosemide (Lasix Tab) 80 mg BID17 PO 08/25/17 09:00 09/24/17 08:59 08/26/17 11:29 80 MG
[2017-08-26] MEDS ORDERED: LVMIPEN SQ ×3 (14:43→14:47)
--- NOTE | 2017-08-26 14:59 | Discharge Instructions ---
Discharge Instructions Date of Service Aug 26, 2017. Admission Reason for Admission: Septic Shock Discharge Discharge Diagnosis / Problem: Syncope/Hypoglycemia/Hypotension/Acute on chronic CHF Discharge Goals Goal(s): Decrease discomfort, Improve function, Improve disease control Activity Recommendations Activity Limitations: resume your previous activity (as tolerated) . Instructions / Follow-Up Instructions / Follow-Up Discharge to [facility] Please call to schedule follow up appointment with your primary care provider once discharge from rehab Monitor blood sugar closely and provider at [facility] will titrate insulin if needed Continue daily wound care Fall precaution Continue Physical therapy and occupational therapy Monitor for fever and signs of infection Fluid restriction to 1.5 L daily Check BMP within 1 week to monitor electrolytes and renal function Current Hospital Diet Patient's current hospital diet: Diabetes Type 2 Diet Discharge Diet Recommended Diet: Diabetes Type 2 Diet Pending Studies Studies pending at discharge: no Laboratory Results Hemoglobin A1c Test 06/20/17 05:20 Range/Units Estimated Average Glucose 217 mg/dl Hemoglobin A1c 9.2 H 4.5-5.6 % Lipid Panel Test 06/21/17 05:10 Range/Units Triglycerides Level 138 0-150 mg/dl Cholesterol Level 153 0-200 mg/dl HDL Cholesterol 33 mg/dl Cholesterol/HDL Ratio 4.6 LDL Cholesterol, Calculated 92 mg/dl Medical Emergencies . Who to Call and When: Medical Emergencies: If at any time you feel your situation is an emergency, please call 911 immediately. . Non-Emergent Contact Non-Emergency issues call your: Primary Care Provider Call Non-Emergent contact if: you have a fever, wound has increased drainage, wound has increased redness, you have any medication questions . . "Provider Documentation" section prepared by Agustin Gaxiola. . VTE Core Measure Inpt VTE Proph given/why not?: Unfractionated heparin SQ
[2017-08-26 15:38] VITALS: BP 145/82; PULSE 72; TEMP 36.3; O2SAT 93
--- NOTE | 2017-08-27 18:18 | Discharge Summary ---
Discharge Summary Date of Service Aug 27, 2017. Discharge Summary Admission Date: Aug 19, 2017 at 12:19 Discharge Date: Aug 26, 2017 Discharge Disposition: Rehab Principal Diagnosis: Syncope Hypoglycemia Secondary Diagnoses/Problems: Hypotension Acute on chronic CHF Hypothyroidism Ambulatory dysfunction DM Type 2 Depression Obesity Gout HTN Procedures: HEAD CT NONCONTRAST CT DOSE: HISTORY: Trauma. eval for bleed TECHNIQUE: Multiaxial CT images of the head were performed without the use of intravenous contrast. Automated exposure control was utilized for this study. A dose lowering technique was utilized adhering to the principles of ALARA. Comparison: Head CT 06/20/2017. Findings: The paranasal sinuses and mastoid air cells are clear. The calvarium and skull base are intact. There is no mass, hematoma, midline shift, acute infarct. White matter hypodensity is nonspecific but suggestive of microvascular ischemic change. The ventricles and sulci demonstrate mild age-related involutional changes. Old infarcts within the right basal ganglia. Impression: No acute intracranial abnormality. 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 Electronically signed by: Man Hamlin M.D. 08/19/2017 1:47 PM Dictated Date/Time: 08/19/2017 1:[address] DOSE: 1558.21 mGy.cm HISTORY: Neck pain. eval for fx TECHNIQUE: Multiaxial CT images of the cervical spine were performed and reformatted in the sagittal and coronal plane without the use of contrast. A dose lowering technique was utilized adhering to the principles of ALARA. COMPARISON: None. FINDINGS: No fractures. No subluxation. Prevertebral soft tissues and the C1-C2 interval are intact. No pneumothorax. Moderate degenerative disc disease at C6-C7. Left-sided pacemaker wires are identified. Interlobular septal thickening within the lung apices suggestive of pulmonary edema. IMPRESSION: 1. No fractures within the cervical spine. 2. Mild pulmonary edema seen at the lung apices. Electronically signed by: Man Hamlin M.D. 08/19/2017 1:51 PM Dictated Date/Time: 08/19/2017 1:48 PM CHEST ONE VIEW PORTABLE HISTORY: 66 years-old Male congestion acute congestion COMPARISON: Chest radiograph 08/20/2017 TECHNIQUE: Portable upright AP view of the chest FINDINGS: Cardiac silhouette is moderately enlarged. Left subclavian pacer/AICD is noted with leads unchanged. There is no pneumothorax. Small right pleural effusion again seen along with patchy right greater than left bibasilar opacities with interstitial coarsening and pulmonary vascular congestion, mildly progressed. Mildly displaced acute to subacute appearing fractures of the lateral right eighth and ninth ribs again noted. IMPRESSION: 1. Cardiomegaly with slightly worsened mild pulmonary edema pattern 2. Small right pleural effusion again noted along with patchy bibasilar opacities suggesting atelectasis. The above report was generated using voice recognition software. It may contain grammatical, syntax or spelling errors. Electronically signed by: Rolan Patterson M.D. 08/21/2017 6:55 AM Dictated Date/Time: 08/21/2017 6:52 AM Consultations: Bridal Stylist Sales Consultant Medication Reconciliation New Medications: Insulin Detemir (Levemir Flextouch) 100 Unit/Ml Inj 15 UNITS SQ QAM for 30 Days Insulin Detemir (Levemir Flextouch) 100 Unit/Ml Inj 15 UNITS SQ HS for 30 Days Continued Medications: Albuterol Sulfate (Proair Respiclick) 108 Mcg/Act Aer 2 PUFFS INH Q4 PRN for SOB/Wheezing Allopurinol (Zyloprim) 100 Mg Tab 300 MG PO DAILY, TAB Aspirin (Aspirin Ec) 81 Mg Tab 81 MG PO DAILY Atorvastatin (Lipitor) 80 Mg Tab 80 MG PO DAILY, 0 Refills Clopidogrel Bisulfate (Clopidogrel) 75 Mg Tab 75 MG PO QAM for 30 Days, #30 TAB Furosemide (Lasix) 80 Mg Tab 80 MG PO BID, TAB Glyburide (Micronase) 5 Mg Tab 5 MG PO DAILYBB, TAB Insulin Human Regular (Novolin R) 100 Units/1 Ml Inj 3 UNITS SQ BREAKFAST&JOHNIE MEALS TAKE 3 UNITS SQ BEFORE BREAKFAST AND EVENING MEALS. Isosorbide Mononitrate Ext Rel (Imdur Ext Rel) 30 Mg Ertab 15 MG PO QAM, TAB 1/2 TABLET DOSE Levothyroxine Sodium (Synthroid) 50 Mcg Tab 50 MCG PO DAILY, TAB Losartan Potassium (Cozaar) 25 Mg Tab 25 MG PO DAILY, TAB Meclizine HCl (Meclizine 25) 25 Mg Tab 25 MG PO TID PRN for dizziness Metolazone (Zaroxolyn) 2.5 Mg Tab 2.5 MG PO WK, TAB TAKE ON SUNDAYS Metoprolol Succinate (Toprol Xl) 25 Mg Tab 25 MG PO BID, TAB Potassium Chloride (Klor-Con M20) 20 Meq Tabcr 20 MEQ PO QAM for 30 Days, #30 TABS Sertraline HCl (Sertraline HCl) 100 Mg Tab 100 MG PO DAILY Discontinued Medications: Amoxicillin & Pot Clavulanate (Amoxicillin/Clavulanate P) 1 Tab Tab 875 MG PO BIDM for 14 Days, #28 TAB Ciprofloxacin (Ciprofloxacin HCl) 500 Mg Tab 500 MG PO BID for 14 Days, #28 TAB Insulin Detemir (Levemir) 1,000 Units/10 Ml Inj 25 UNITS SQ BID Admission Information HPI (per Admitting provider): CHIEF COMPLAINT: Syncope, hypertension and hyperlipidemia. HISTORY OF PRESENT ILLNESS: This 66-year-old male with past medical history significant for diabetes type 2, history of hypoglycemia associate autonomic failure,CHF with ef 20% s/p ICD placement, CAd s/p stent, chronic kidney disease stage III, hypothyroidism, depression, anxiety, chronic ambulatory dysfunction, diabetic vasculopathy status post L BKA and multiple amputations presents with syncope. Patient apparently passed out at home and was lying on the floor. The patient states he was standing and he suddenly passed out does not know anything until he came to the ER. checked blood sugars and they were ok. When EMS arrived his blood sugars were in 30s and was transferred to the ER. In the ER, he was found to be hypotensive with systolic blood pressure in 60's. He received 3liters of IV fluid bolus and started on empiric antibiotic, transferred to the ICU. Back in the ICU his blood pressure was stabilized and he was more alert and oriented. But lately his blood sugars again dropped and plan to start him on D10 with 30 mL per hour. The patient has history of being admitted in the hospital with sepsis in October 2016 and June 2017. Last admission he had osteomyelitis of right middle toe and was s/p amputation.At that time cultures showing multiple organisms. Currently resting comfortably and hemodynamically stable. Denies any headache. Denies any blurred vision. No cough, no chest pain, no shortness of breath, no fever, no chills, no abdominal pain. Normal bowel and bladder movements. Appetite is okay. The patient walks with the help of a walker at home. Physical Exam (per Admitting): PHYSICAL EXAMINATION: GENERAL: The patient is obese, not in distress. VITAL SIGNS: Temperature 36.6, pulse 74, respiratory rate 15, blood pressure currently 147/73, oxygen 98% on 2 liters. HEENT: No pallor, no icterus. Pupils equal, round, and reactive to light. NECK: No JVD, no neck masses, no carotid bruits. CARDIOVASCULAR: S1, S2 heard, regular rate and rhythm, no murmur, no gallop. RESPIRATORY SYSTEM: Clear to auscultation bilaterally. No wheezing, no crackles. ABDOMEN: Soft, bowel sounds present. Nontender. No distention. CENTRAL NERVOUS SYSTEM: Cranial nerves II-XII grossly intact. Nonfocal. EXTREMITIES: multiple digit amputations. Lower extremity edema present. Hospital Course Syncope Possible related to Hypoglycemia and Hypotension CT head showed no acute intracranial abnormality BS was in the 30s before arrived in the ER Was started on D10 @ 30ml Clinically stable Hypotension Possible sepsis Blood culture from 08/19/17 with 1 of 2 cultures as alpha strep/not strep pneumo and not enterococci Zosyn has been D/C Has been on Vancomycin since 08/19 Repeat blood cx no growth No ID official consult placed, but case discussed with ID Dr. Daniels Case discussed with ID about blood cx result on 08/19, believe it was contamination ID recommend to d/c Vanco for now and if spike any fever to start abx Received aggressive IVF BP has been running high BP meds have been putting on hold Resolved Acute on chronic CHF CXR showed cardiomegaly with volume overload. D/C IV lasix Starting on lasix 80mg BID po has been diuresis well output about 12L Fluid restriction to 1.5L daily Stable HTN BP improved Continue monitor BP Diabetes Hypoglycemia Received D10 in the ICU BS has been well controlled Lantus was decreased Continue titrate lantus if needed Pharmacy glycemic control appreciated to continue to follow Hypothyroidism Continue Levothyroxine Stable Ambulatory Dysfunction Continue PT/OT Fall precaution Will go to rehab today Depression Continue Sertraline Stable Gout Continue Allopurinol Obesity Counseling on smoking cessation DVT ppx heparin subq Code status Full code Disposition Will transfer to rehab today Total time spent on discharge = 35 minutes This includes examination of the patient, discharge planning, medication reconciliation, and communication with other providers. Discharge Instructions Discharge Instructions Date of Service Aug 26, 2017. Admission Reason for Admission: Septic Shock Discharge Discharge Diagnosis / Problem: Syncope/Hypoglycemia/Hypotension/Acute on chronic CHF Discharge Goals Goal(s): Decrease discomfort, Improve function, Improve disease control Activity Recommendations Activity Limitations: resume your previous activity (as tolerated) . Instructions / Follow-Up Instructions / Follow-Up Discharge to [facility] Please call to schedule follow up appointment with your primary care provider once discharge from rehab Monitor blood sugar closely and provider at [facility] will titrate insulin if needed Continue daily wound care Fall precaution Continue Physical therapy and occupational therapy Monitor for fever and signs of infection Fluid restriction to 1.5 L daily Check BMP within 1 week to monitor electrolytes and renal function Current Hospital Diet Patient's current hospital diet: Diabetes Type 2 Diet Discharge Diet Recommended Diet: Diabetes Type 2 Diet Pending Studies Studies pending at discharge: no Laboratory Results Hemoglobin A1c Test 06/20/17 05:20 Range/Units Estimated Average Glucose 217 mg/dl Hemoglobin A1c 9.2 H 4.5-5.6 % Lipid Panel Test 06/21/17 05:10 Range/Units Triglycerides Level 138 0-150 mg/dl Cholesterol Level 153 0-200 mg/dl HDL Cholesterol 33 mg/dl Cholesterol/HDL Ratio 4.6 LDL Cholesterol, Calculated 92 mg/dl Medical Emergencies . Who to Call and When: Medical Emergencies: If at any time you feel your situation is an emergency, please call 911 immediately. . Non-Emergent Contact Non-Emergency issues call your: Primary Care Provider Call Non-Emergent contact if: you have a fever, wound has increased drainage, wound has increased redness, you have any medication questions . . "Provider Documentation" section prepared by Agustin Gaxiola. . VTE Core Measure Inpt VTE Proph given/why not?: Unfractionated heparin SQ Additional Copies To [facility]
== END 2017-08-26 16:00 | DRG 314 ==
LOC: EDBD 09:55 → C.EDA 09:58 → C.MSICU 12:19 → ENRESERV 12:27 → C.2E 08-21 14:06 → ENRESERV 08-24 18:25 → C.MS2W 08-24 20:33 → C.MS4W 08-25 18:44
PROVIDERS: ADMIT Hospitalist; ATTEND Internal Medicine
PROC: 05HM33Z Insertion of Infusion Device into Right Internal Jugular Vein, Percutaneous Approach (ICD-10-PCS; principal; 2017-08-19)
DX: I95.9 Hypotension, unspecified (principal); I50.23 Acute on chronic systolic (congestive) heart failure; Z68.41 Body mass index [BMI] 40.0-44.9, adult; I25.10 Atherosclerotic heart disease of native coronary artery without angina pectoris; E66.01 Morbid (severe) obesity due to excess calories; E78.5 Hyperlipidemia, unspecified; M10.9 Gout, unspecified; I11.0 Hypertensive heart disease with heart failure; E03.9 Hypothyroidism, unspecified; F32.9 Major depressive disorder, single episode, unspecified; F41.9 Anxiety disorder, unspecified; E11.649 Type 2 diabetes mellitus with hypoglycemia without coma; Z79.82 Long term (current) use of aspirin; Z86.718 Personal history of other venous thrombosis and embolism; Z89.022 Acquired absence of left finger(s); Z95.810 Presence of automatic (implantable) cardiac defibrillator; Z79.4 Long term (current) use of insulin; Z83.3 Family history of diabetes mellitus

== ENCOUNTER 2017-10-22 18:49 | Inpatient (IN) | payer BC, OTHER ==
[~2017-10-22] VITALS: Ht 177.8 cm; Wt 104.0 kg
[~2017-10-22 18:49] MED LIST changes: -ALBU18002 INH; -AMOX1TAB43 PO; -ASPI81TA28 PO; -CPR500 PO; -GLYB5TAB8 PO; +LVMIPEN SQ; -LVMIPUC SQ; -MECL-91 PO
--- NOTE | 2017-10-22 19:15 | EMERGENCY ROOM VISIT NOTE ---
History Report prepared by Airam: Trudy Durán Under the Supervision of: Dr. Hubert Glover M.D. First contact with patient: 19:06 Chief Complaint: SHORTNESS OF BREATH Stated Complaint: SOB AND COUGH Nursing Triage Summary: Pt complains of SOB and cough. It started a couple days ago. Today its worse. History of Present Illness The patient is a 66 year old male who presents to the Emergency Room with complaints of an intermittent cough that started a few days ago. He notes he feels weak today. He reports he is also experiencing shortness of breath. He states he is not normally on oxygen. He says he feels so weak that he had to crawl down the stairs in his house because he didn't have the strength to balance with his prosthesis. The patient was in the ED 2 months ago. He has not seen a PCP since then. The patient denies any fevers, chills, nausea, vomiting, diarrhea, chest pain or abdominal pain. The patient has a history of heart failure. He takes Lasix daily. Source of History: patient Onset: a few days ago Position: other (global) Timing: intermittent Associated Symptoms: + SOB, + weakness, No fevers, No chills, No chest pain , No nausea, No vomiting, No abdominal pain, No diarrhea Review of Systems See HPI for pertinent positives and negatives. A total of ten systems were reviewed and were otherwise negative. Past Medical & Surgical Medical Problems: (1) Acute encephalopathy (2) Adjustment disorder with depressed mood (3) Biventricular ICD (implantable cardioverter-defibrillator) in place (4) CAD (coronary artery disease) (5) CHF (congestive heart failure) (6) Chronic systolic CHF (congestive heart failure) (7) Diabetic retinopathy (8) DM type 2 (diabetes mellitus, type 2) (9) Dyslipidemia (10) Gout (11) HTN (hypertension) (12) Hypothyroidism (13) Lung nodule (14) Neuropathy due to type 2 diabetes mellitus (15) Nonischemic cardiomyopathy (16) Respiratory failure, acute (17) Septic shock Surgical Problems: (1) History of amputation of finger of left hand (2) History of implantable cardioverter-defibrillator (ICD) placement (3) Hx of BKA (4) S/P coronary artery stent placement Family History Diabetes mellitus MOTHER FH: CAD (coronary artery disease) FATHER Social History Smoking Status: Never Smoker Drug Use: none Marital Status: Housing Status: lives with family Occupation Status: disabled Current/Historical Medications Scheduled Allopurinol (Zyloprim), 300 MG PO DAILY Aspirin (Aspirin Ec), 81 MG PO DAILY Atorvastatin (Lipitor), 80 MG PO DAILY Digoxin (Digoxin), 0.25 MG PO DAILY Furosemide (Lasix), 80 MG PO QAM Glyburide (Micronase), 5 MG PO DAILYBB Insulin Detemir (Levemir Flextouch), 15 UNITS SQ QAM Insulin Detemir (Levemir Flextouch), 15 UNITS SQ HS Insulin Regular (Human) (Novolin R U-100), 30 UNITS SQ QAM Isosorbide Mononitrate Ext Rel (Imdur Ext Rel), 15 MG PO QAM Levothyroxine Sodium (Synthroid), 50 MCG PO DAILY Losartan Potassium (Cozaar), 25 MG PO DAILY Metolazone (Zaroxolyn), 2.5 MG PO WK Metoprolol Succinate (Toprol Xl), 25 MG PO BID Sertraline HCl (Sertraline HCl), 100 MG PO DAILY Scheduled PRN Albuterol Sulfate (Proair Respiclick), 2 PUFFS INH Q4 PRN for SOB/Wheezing Meclizine HCl (Meclizine 25), 25 MG PO TID PRN for dizziness Allergies Coded Allergies: Gemfibrozil (Verified Allergy, Unknown, 06/19/17) Physical Exam Vital Signs Date Time Temp Pulse Resp B/P (MAP) Pulse Ox O2 Delivery O2 Flow Rate FiO2 10/22/17 22:18 69 22 96 Nasal Cannula 2.0 10/22/17 21:40 70 14 104/61 96 Nasal Cannula 2.0 10/22/17 20:48 74 10/22/17 19:14 80 10/22/17 19:13 98 Nasal Cannula 2.0 10/22/17 19:13 89 Room Air 10/22/17 18:54 36.6 115 24 126/67 90 Room Air Physical Exam GENERAL: Awake, alert, chronically ill-appearing, fatigued. in no distress, HENT: Normocephalic, atraumatic. Oropharynx with dry mucus membranes and otherwise unremarkable. EYES: Normal conjunctiva. Sclera non-icteric. NECK: Supple. No nuchal rigidity. FROM. No JVD. RESPIRATORY: Diminished breath sounds at bases with scant intermittent rhonchi. CARDIAC: Regular rate, normal rhythm. Extremities warm and well perfused. Pulses equal. ABDOMEN: Obese, soft, non-distended. No tenderness to palpation. No rebound or guarding. No masses. RECTAL: Deferred. MUSCULOSKELETAL: Chest examination reveals no tenderness. The back is symmetrical on inspection without obvious abnormality. There is no CVA tenderness to palpation. No joint edema. LOWER EXTREMITIES: Scant lower extremity edema, scattered minor abrasions in legs and arms at different stages of healing. No evidence of infection. NEURO: Normal sensorium. No sensory or motor deficits noted. SKIN: No rash or jaundice noted. Medical Decision & Procedures ER Provider Diagnostic Interpretation: Radiology results as stated below per my review and radiologist interpretation: CHEST ONE VIEW PORTABLE HISTORY: Evaluate Fever/Sepsis COMPARISON: Chest 08/21/2017. FINDINGS: Healing right lower rib fractures are again noted. No pneumothorax. The heart remains enlarged. Left-sided pacemaker/defibrillator. Small right pleural effusion and patchy right basilar densities are again noted. Mild pulmonary edema remains unchanged. IMPRESSION: 1. No change in the cardiomegaly and mild pulmonary edema. 2. Small right pleural effusion and patchy right basilar densities, unchanged. 3. Healing right lower rib fractures are again noted. Electronically signed by: Man Hamlin M.D. 10/22/2017 8:23 PM Dictated Date/Time: 10/22/2017 8:21 PM Laboratory Results Test 10/22/17 00:00 10/22/17 19:48 10/22/17 20:10 10/22/17 22:14 Influenza Type A (RT-PCR) Neg for Influ A (NEG) Influenza Type A Antigen Neg for Influ A (NEG) Influenza Type B Antigen Neg for Influ B (NEG) Influenza Type B (RT-PCR) Neg for Influ B (NEG) Prothrombin Time 10.5 SECONDS (9.0-12.0) Prothromb Time International Ratio 1.0 (0.9-1.1) Estimated Average Glucose 206 mg/dl Hemoglobin A1c 8.8 % (4.5-5.6) Magnesium Level 1.9 mg/dl (1.8-2.4) Total Bilirubin 1.0 mg/dl (0.2-1) Direct Bilirubin 0.3 mg/dl (0-0.2) Aspartate Amino Transf (AST/SGOT) 11 U/L (15-37) Alanine Aminotransferase (ALT/SGPT) 15 U/L (12-78) Alkaline Phosphatase 109 U/L (45-117) Pro-B-Type Natriuretic Peptide 70304 pg/ml (0-900) Total Protein 6.8 gm/dl (6.4-8.2) Albumin 2.5 gm/dl (3.4-5.0) Lipase 90 U/L (73-393) Beta-Hydroxybutyric Acid 0.59 mg/dL (0.2-2.81) Thyroid Stimulating Hormone (TSH) 2.250 uIu/ml (0.300-4.500) Venous Blood pH 7.39 (7.36-7.41) Venous Blood Partial Pressure CO2 52 mmHg (38.0-50.0) Venous Blood Partial Pressure O2 29 mmHg Venous Blood HCO3 31 mmol/L Venous Blood Oxygen Saturation < 60.0 % Venous Blood Base Excess 5.0 mEq/L Lactic Acid Level 2.0 mmol/L (0.4-2.0) Arterial Blood pH 7.39 (7.35-7.45) Arterial Blood Partial Pressure CO2 52 mmHg (35-46) Arterial Blood Partial Pressure O2 54 mm/Hg (80-95) Arterial Blood HCO3 30 mmol/L (19-24) Arterial Blood Oxygen Saturation 84.3 % (90-95) Arterial Blood Base Excess 4.4 mEq/L (-9-1.8) Arterial Blood Gas Delivery 2 L Brent Test POS (POS) Digoxin Level 0.3 ng/ml (0.8-2.0) Laboratory results reviewed by me Medications Administered Medications (Trade) Dose Ordered Sig/Ifeanyi Route Start Time Stop Time Status Last Admin Dose Admin Albuterol/ Ipratropium (Duoneb) 3 ml NOW STAT INH 10/22/17 19:27 10/22/17 19:30 DC 10/22/17 19:51 3 ML Insulin Aspart (novoLOG ASPART) 10 units NOW STAT SC 10/22/17 21:13 10/22/17 21:18 DC 10/22/17 21:55 10 UNITS Azithromycin (Zithromax Tab) 500 mg NOW ONCE PO 10/22/17 21:30 10/22/17 21:31 DC 10/22/17 22:29 500 MG Albuterol/ Ipratropium (Duoneb) 12 ml ONE ONCE INH 10/22/17 21:30 10/22/17 21:31 DC 10/22/17 22:17 12 ML Furosemide (Lasix Inj) 80 mg NOW STAT IV 10/22/17 21:22 10/22/17 21:26 DC 10/22/17 21:22 80 MG Insulin Detemir (Levemir Insulin Per Unit) 20 units NOW STAT SC 10/22/17 21:43 10/22/17 21:44 DC 10/22/17 22:26 20 UNITS ECG Per My Interpretation Indication: SOB/dyspnea Rate (beats per minute): 74 Rhythm: sinus rhythm Findings: 1st degree AV block, no acute ischemic change, left axis deviation Comparison ECG Date: 08/19/17 Change: no significant change ED Course 1914: The patient was evaluated in room C7. A complete history and physical exam was performed. 2114: I discussed the patient with Miguel Santiago - He will evaluate the patient for further treatment. Medical Decision I reviewed the patient's past medical history, medications, and the nursing notes as described above. Differential Diagnoses: Viral illness, influenza, PNA, bronchitis, ACS, CHF, UTI, sepsis, COPD. The patient is a 66-year-old gentleman with a competent past medical history of CK D, CHF, COPD, recent admission for sepsis who presents emergency department with generalized weakness, body aches, fevers chills, cough congestion per hpi. On arrival the patient is fatigued and chronically ill-appearing, afebrile stable vital signs. Exam the patient has diminished breath sounds at the bases with scant intermittent rhonchi and wheezes. Of note, the patient arrives with room air saturation of 88% which is different from the patient's baseline. Chest x-ray appears stable. CO2 elevated 50s which is increased from prior. BNP slightly elevated from recent at 11,000. Flu PCR negative. Patient's symptoms appear to be multifactorial. Will treat for COPD exacerbation with steroids, nebs, azithromycin and will also treat for CHF with Lasix. Case was discussed with Miguel Malagon hospitalist will admit the patient for further management. Medication Reconcilliation Current Medication List: was personally reviewed by me Consults Time Called: 21:15 Consulting Physician: Dr. Oconor Returned Call: 21:15 Will evaluate patient for admission. Impression Primary Impression: COPD exacerbation Additional Impression: CHF exacerbation Scribe Attestation The scribe's documentation has been prepared under my direction and personally reviewed by me in its entirety. I confirm that the note above accurately reflects all work, treatment, procedures, and medical decision making performed by me. Departure Information Referrals No Doctor, Assigned (PCP) Patient Instructions [facility] Problem Qualifiers
[2017-10-22] MEDS ORDERED: ALBUT/IPRATROP 3MG/0.5MG NEB 3 ML VIAL INH STA (19:27)
[2017-10-22 20:13] LABS: BASO % 0.4 %; BASO ABS # 0.02 K/uL (0-0.2); EOS % 0.7 %; EOS ABS # 0.04 K/uL (0-0.5); HEMATOCRIT 32.5 % (42-52); HEMOGLOBIN 11.1 g/dL (14.0-18.0); IG# 0.02 K/uL (0.00-0.02); LYMPH % 6.3 %; LYMPH ABS # 0.34 K/uL (1.2-3.4); MEAN CELL VOLUME 79.3 fL (80-100); MEAN CORPUSCULAR HEMOGLOBIN 27.1 pg (25-34); MEAN CORPUSCULAR HGB CONC 34.2 g/dl (32-36); MEAN PLATELET VOLUME 9.4 fL (7.4-10.4); MONO % 4.3 %; MONO ABS # 0.23 K/uL (0.11-0.59); NEUT % 87.9 %; NEUT ABS # 4.75 K/uL (1.4-6.5); PLATELET COUNT 202 K/uL (130-400); RED CELL DISTRIBUTION WIDTH SD 49.3 fL (36.4-46.3)
--- NOTE | 2017-10-22 20:25 | DIAGNOSTIC IMAGING REPORT ---
CHEST ONE VIEW PORTABLE HISTORY: Evaluate Fever/Sepsis COMPARISON: Chest 08/21/2017. FINDINGS: Healing right lower rib fractures are again noted. No pneumothorax. The heart remains enlarged. Left-sided pacemaker/defibrillator. Small right pleural effusion and patchy right basilar densities are again noted. Mild pulmonary edema remains unchanged. IMPRESSION: 1. No change in the cardiomegaly and mild pulmonary edema. 2. Small right pleural effusion and patchy right basilar densities, unchanged. 3. Healing right lower rib fractures are again noted. Electronically signed by: Man Hamlin M.D. 10/22/2017 8:23 PM Dictated Date/Time: 10/22/2017 8:21 PM
[2017-10-22] MEDS ORDERED: LNX25 PO (20:29)
[2017-10-22 20:40] LABS: ALBUMIN 2.5 gm/dl (3.4-5.0); CALCIUM 8.5 mg/dl (8.5-10.1); CREATININE 1.51 mg/dl (0.60-1.40); POTASSIUM 3.9 mmol/L (3.5-5.1); TOTAL PROTEIN 6.8 gm/dl (6.4-8.2)
[2017-10-22 20:52] LABS: INFLUENZA B ANTIGEN Neg for Influ B (NEG)
[2017-10-22] MEDS ORDERED: INSUINJ7 SQ (20:53)
[2017-10-22] MEDS ORDERED: INSULIN ASPART 100 UNITS/ML 3 ML PEN SC STA (21:13)
[2017-10-22] MEDS ORDERED: METHYLPREDNISOLONE 125 MG VIAL IV STA (21:22)
[2017-10-22] MEDS ORDERED: FUROSEMIDE 40 MG/4 ML VIAL IV STA (21:22)
[2017-10-22] MEDS ORDERED: ALBUT/IPRATROP 3MG/0.5MG NEB 3 ML VIAL INH ONE (21:30)
[2017-10-22] MEDS ORDERED: AZITHROMYCIN 250 MG TAB PO ONE (21:30)
[2017-10-22] MEDS ORDERED: ASPI81TA28 PO (21:37)
[2017-10-22] MEDS ORDERED: INSULIN DETEMIR PER UNIT CHARGE SC STA (21:43)
[2017-10-22] MEDS ORDERED: INSULIN DETEMIR FLEXPEN/FLEX TOUCH 100 UNITS/ML 3ML SQ ONE (21:45)
[2017-10-22 22:01] LABS: PTT PATIENT 27.3 SECONDS (21.0-31.0)
[2017-10-22 22:18] VITALS: PULSE 69; O2SAT 96
[2017-10-22 22:58] LABS: INFLUENZA A PCR Neg for Influ A (NEG); INFLUENZA B PCR Neg for Influ B (NEG)
[2017-10-22] MEDS ORDERED: PROCHLORPERAZINE INJ 5 MG in SYRINGE 4 ML IV PRN (23:30)
[2017-10-22] MEDS ORDERED: DEXTROSE 50% 50 ML SYR IV PRN (23:30)
[2017-10-22] MEDS ORDERED: ACETAMINOPHEN 325 MG TAB PO PRN (23:30)
[2017-10-22] MEDS ORDERED: TRAMADOL HCL 50 MG TAB PO PRN (23:30)
[2017-10-22] MEDS ORDERED: GLUCOSE 10 TABS/TUBE PO PRN (23:30)
[2017-10-22] MEDS ORDERED: GLUCOSE 40% GEL 15 GM TUBE PO PRN (23:30)
[2017-10-22] MEDS ORDERED: GLUCAGON FOR INJ 1 MG VIAL SQ PRN (23:30)
[2017-10-22] MEDS ORDERED: NITROGLYCERIN 0.4 MG SL PER TAB CHARGE SL PRN (23:30)
[2017-10-22] MEDS ORDERED: GLYB5TAB8 PO (23:48)
[2017-10-22] MEDS ORDERED: MECL-91 PO (23:51)
[2017-10-22] MEDS ORDERED: ALBU18002 INH (23:52)
[2017-10-23] VITALS (13 sets, daily range): BP systolic 117–171; BP diastolic 68–90; PULSE 76–94; TEMP 36.5–37.1; O2SAT 92–97; BMI 35.5; BMI 35.4
[2017-10-23] MEDS ORDERED: GUAIFENESIN 600 MG TABCR PO STA (00:35)
[2017-10-23] MEDS ORDERED: INSULIN ASPART 100 UNITS/ML 3 ML PEN SC STA (00:35)
[2017-10-23] MEDS: LEVALBUTEROL 1.25MG/0.5ML NEB INH SCH ×4 (02:34→18:57)
[2017-10-23] MEDS: IPRATROPIUM BROMIDE NEB SOLN 0.02% 2.5 ML VIAL INH SCH ×4 (02:34→18:57)
[2017-10-23] MEDS ORDERED: METHYLPREDNISOLONE IV 20 MG in SYRINGE 0 ML IV STA (02:45)
[2017-10-23 02:48] LABS: BASO % 0.2 %; BASO ABS # 0.01 K/uL (0-0.2); EOS % 0.9 %; EOS ABS # 0.05 K/uL (0-0.5); HEMATOCRIT 32.6 % (42-52); HEMOGLOBIN 10.8 g/dL (14.0-18.0); IG# 0.03 K/uL (0.00-0.02); LYMPH % 10.5 %; MEAN CELL VOLUME 79.5 fL (80-100); MEAN CORPUSCULAR HEMOGLOBIN 26.3 pg (25-34); MEAN CORPUSCULAR HGB CONC 33.1 g/dl (32-36); MEAN PLATELET VOLUME 9.1 fL (7.4-10.4); MONO % 5.4 %; MONO ABS # 0.31 K/uL (0.11-0.59); NEUT % 82.5 %; NEUT ABS # 4.74 K/uL (1.4-6.5); PLATELET COUNT 185 K/uL (130-400); RED CELL DISTRIBUTION WIDTH CV 17.1 % (11.5-14.5); RED CELL DISTRIBUTION WIDTH SD 49.7 fL (36.4-46.3); WHITE BLOOD COUNT 5.74 K/uL (4.8-10.8)
[2017-10-23] MEDS ORDERED: LEVALBUTEROL/IPRATROPIUM NEB INH SCH (03:00)
[2017-10-23 03:06] LABS: PTT PATIENT 27.5 SECONDS (21.0-31.0)
[2017-10-23 03:37] LABS: CALCIUM 8.6 mg/dl (8.5-10.1); CREATININE 1.5 mg/dl (0.60-1.40); POTASSIUM 3.3 mmol/L (3.5-5.1)
[2017-10-23] MEDS ORDERED: INSULIN DETEMIR FLEXPEN/FLEX TOUCH 100 UNITS/ML 3ML SQ ONE ×2 (04:24→19:33)
[2017-10-23] MEDS ORDERED: INSULIN ASPART 100 UNITS/ML 3 ML PEN SC ONE (04:24)
[2017-10-23] MEDS ORDERED: POTASSIUM CHLORIDE 10 MEQ TABCR PO STA (04:24)
[2017-10-23] MEDS: ALBUMIN HUMAN 25% 12.5 GM/50 ML VIAL IV SCH ×2 (04:58→05:46)
[2017-10-23] MEDS: HEPARIN SOD 5000 UNIT/0.5 ML CARP SQ SCH ×3 (05:01→21:35)
[2017-10-23] MEDS ORDERED: INSULIN ASPART 100 UNITS/ML 3 ML PEN SC SCH (07:00)
--- NOTE | 2017-10-23 07:07 | HISTORY & PHYSICAL EXAMINATION ---
DATE OF ADMISSION: 10/22/2017 PATIENT'S PRIMARY CARE DOCTOR: Oren lAmazan DO. CHIEF COMPLAINT: Shortness of breath. HISTORY OF PRESENT ILLNESS: History obtained from patient and records. Patient is a fair historian. 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 Recent confinement last August 2017 for syncope, hypoglycemia. Patient discharged to [facility] initially. Patient has not seen PCP since discharge from the hospital 2 months ago. Patient noted intermittent cough, mostly dry last few days, more short of breath than usual. Denies aspiration. He thinks he is gaining weight although he does not have a scale at home. Denies chest pain. At the Emergency Room, O2 sats noted to be 89 on room air. Patient received DuoNebs, Solu-Medrol, Lasix for possible bronchitis, CHF. MEDICAL HISTORY: As above. A 2D echo from June 2017 showed LVH, severe LV dilatation, EF 15%. SURGERIES: Orthopedic procedures, ICD placement. HOME MEDICATIONS: Include glyburide, Novolin, Imdur ER, Synthroid, Cozaar, Zaroxolyn, Toprol-XL, meclizine, sertraline, Zyloprim, aspirin, Lipitor, ProAir, digoxin, Lasix. ALLERGIES: GEMFIBROZIL. FAMILY HISTORY: Diabetes. PERSONAL AND SOCIAL HISTORY: Nonsmoker. No chronic intake of alcoholic beverages. 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 REVIEW OF SYSTEMS: As per HPI. All 10 systems reviewed. All other ROS negative. PHYSICAL EXAMINATION: VITAL SIGNS: Blood pressure was noted to be 126/60, pulse rate 70, RR 14, temperature 36.9, sats 89 on room air, later 96 on 2 liters. GENERAL: Noted to be, obese, no respiratory distress. Somewhat sleepy. Somewhat apathetic. Unkempt. SKIN: Pallor. Warm. HEENT: Alopecia. Pale palpebral conjuctivae. No ptosis. Dry mucosa. Nasal cannula in place. NECK: Short, supple. CHEST: Decreased breath sounds, occasional wheeze. HEART: Diminished S1 and S2. No obvious murmurs. ABDOMEN: Some distention. No tender. EXTREMITIES: Amputation stump LLE. No swelling on the right. No tenderness. NEUROLOGIC: Coherent but sleepy, otherwise no gross focality, no facial asymmetry. LABORATORY DATA: Hemoglobin was noted to be 11.1, hematocrit 32.5, white cell count 5.4, platelets 202. Sodium noted to be 135, potassium 3.9, chloride 99, CO2 of 29, BUN 32, creatinine 1.5, glucose 404 D-dimer was normal. Troponin 0.035 Hemoglobin A1c from June of 2017 was 9.2. Chest x-ray: Small right pleural effusion, cardiomegaly, mild congestion, patchy right basilar densities unchanged. ABG: pH 7.39, pCO2 of 52, pO2 54, 84 on 2 liters (possibly venous as per tech) Flu test negative. UA, hyaline casts. EKG as per my interpretation, rate 75, NSR, LAD, LAFB, some T-wave abnormalities in the lateral leads, PRWP. ASSESSMENT: 1. Acute hypoxemic respiratory failure secondary to viral bronchitis. No sepsis. 2. Chronic systolic heart failure secondary to mixed cardiomyopathy sp ICD Equivocal volume status baseline congestion on CXR Px claims possible fluid retention/weight gain symptoms, although weight comparison from recent confinement 2 months ago actually shows net weight loss of about 8 pounds. Patient clinically dry w/ ARF, hyaline casts in the urine. 3. Coronary artery disease status post stenting. 4. HTN, stableDM2, insulin requiring suboptimal control as of recent HgA1c from last year ? compliance. 5. Chronic anemia, hemoglobin baseline. 6. ? Functional disability PLAN: PCU supplemental O2 supportive management for viral bronchitis. solumedrol 1 dose Monitor renal function improvement with gentle hydration. Hold home diuretics for now. PT, OT evaluation. Basal insulin, ISS BG goal 140-180. Patient due for HgA1c recheck. PT OT eval Social service RE DCs planning. Full code. MTDD
[2017-10-23 08:17] LABS: HEMOGLOBIN A1C 8.8 % (4.5-5.6)
[2017-10-23] MEDS: GUAIFENESIN 600 MG TABCR PO SCH ×2 (08:24→21:36)
[2017-10-23] MEDS: ASPIRIN 81 MG ECTAB PO SCH (08:25)
[2017-10-23] MEDS: ALLOPURINOL 100 MG TAB PO SCH (08:25)
[2017-10-23] MEDS: ATORVASTATIN 40 MG TAB PO SCH (08:25)
[2017-10-23] MEDS: METOPROLOL SUCC 25MG EXT REL TAB PO SCH ×2 (08:26→21:36)
[2017-10-23] MEDS: SERTRALINE HCL 100 MG TAB PO SCH (08:26)
[2017-10-23] MEDS: ISOSORBIDE MONONITRATE 30 MG TABCR PO SCH (08:28)
[2017-10-23] MEDS ORDERED: INSULIN DETEMIR FLEXPEN/FLEX TOUCH 100 UNITS/ML 3ML SQ SCH ×2 (09:00→21:00)
[2017-10-23] MEDS ORDERED: POTASSIUM CHLORIDE 20 MEQ TABCR PO ONE (09:15)
[2017-10-23] MEDS: INSULIN ASPART 100 UNITS/ML 3 ML PEN SC SCH ×2 (12:00→16:51)
--- NOTE | 2017-10-23 12:20 | Progress Note ---
Medicine Progress Note Date & Time of Visit: Oct 23, 2017 at 11:51. Subjective Pt was seen and examined Sitting in chair with no distress watching TV Pt said that he still feels the same Continue to have a productive cough Pt said that he does not have any at home to care for him He said that his works at night and during the day she sleeps. He said that he does not have any transportation to go to the doctor appointment and that his the reason he missed all his appts. Denies any chest pain, palpitation, fever and dizziness Objective Last 8 Hrs Date Time Temp Pulse Resp B/P (MAP) Pulse Ox O2 Delivery O2 Flow Rate FiO2 10/23/17 11:01 36.6 79 18 124/78 (93) 93 10/23/17 11:00 Nasal Cannula 3.0 10/23/17 08:00 Nasal Cannula 3.0 10/23/17 07:58 36.8 77 18 125/73 (90) 94 2.0 10/23/17 07:16 79 18 93 Room Air 10/23/17 04:27 36.5 76 18 117/76 (90) 96 Nasal Cannula 2.0 10/23/17 04:00 Nasal Cannula 3.0 Physical Exam: General- No acute distress, poor hygiene Head- atraumatic Eyes- PERRL, EOMI ENT- oropharynx clear Neck- supple, no JVD Lungs- No wheezing Heart- regular rhythm Abdomen- normal bowel sounds, soft Extremities-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, 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 Neuro- alert, oriented x 3; PERRL, EOMI Skin- warm & dry Laboratory Results: Last 24 Hours Test 10/22/17 19:48 10/22/17 20:10 10/22/17 22:14 10/22/17 23:59 White Blood Count 5.40 K/uL Red Blood Count 4.10 M/uL Hemoglobin 11.1 g/dL Hematocrit 32.5 % Mean Corpuscular Volume 79.3 fL Mean Corpuscular Hemoglobin 27.1 pg Mean Corpuscular Hemoglobin Concent 34.2 g/dl Platelet Count 202 K/uL Mean Platelet Volume 9.4 fL Neutrophils (%) (Auto) 87.9 % Lymphocytes (%) (Auto) 6.3 % Monocytes (%) (Auto) 4.3 % Eosinophils (%) (Auto) 0.7 % Basophils (%) (Auto) 0.4 % Neutrophils # (Auto) 4.75 K/uL Lymphocytes # (Auto) 0.34 K/uL Monocytes # (Auto) 0.23 K/uL Eosinophils # (Auto) 0.04 K/uL Basophils # (Auto) 0.02 K/uL RDW Standard Deviation 49.3 fL RDW Coefficient of Variation 17.0 % Immature Granulocyte % (Auto) 0.4 % Immature Granulocyte # (Auto) 0.02 K/uL Prothrombin Time 10.5 SECONDS Prothromb Time International Ratio 1.0 Activated Partial Thromboplast Time 27.3 SECONDS Partial Thromboplastin Ratio 1.1 Sodium Level 135 mmol/L Potassium Level 3.9 mmol/L Chloride Level 99 mmol/L Carbon Dioxide Level 29 mmol/L Anion Gap 7.0 mmol/L Blood Urea Nitrogen 32 mg/dl Creatinine 1.51 mg/dl Est Creatinine Clear Calc Drug Dose 63.3 ml/min Estimated GFR () 55.0 Estimated GFR (Non- 47.4 BUN/Creatinine Ratio 21.0 Random Glucose 404 mg/dl Estimated Average Glucose 206 mg/dl Hemoglobin A1c 8.8 % Calcium Level 8.5 mg/dl Magnesium Level 1.9 mg/dl Total Bilirubin 1.0 mg/dl Direct Bilirubin 0.3 mg/dl Aspartate Amino Transf (AST/SGOT) 11 U/L Alanine Aminotransferase (ALT/SGPT) 15 U/L Alkaline Phosphatase 109 U/L Troponin I 0.033 ng/ml Pro-B-Type Natriuretic Peptide 18910 pg/ml Total Protein 6.8 gm/dl Albumin 2.5 gm/dl Lipase 90 U/L Beta-Hydroxybutyric Acid 0.59 mg/dL Thyroid Stimulating Hormone (TSH) 2.250 uIu/ml Venous Blood pH 7.39 Venous Blood Partial Pressure CO2 52 mmHg Venous Blood Partial Pressure O2 29 mmHg Venous Blood HCO3 31 mmol/L Venous Blood Oxygen Saturation < 60.0 % Venous Blood Base Excess 5.0 mEq/L Lactic Acid Level 2.0 mmol/L Arterial Blood pH 7.39 Arterial Blood Partial Pressure CO2 52 mmHg Arterial Blood Partial Pressure O2 54 mm/Hg Arterial Blood HCO3 30 mmol/L Arterial Blood Oxygen Saturation 84.3 % Arterial Blood Base Excess 4.4 mEq/L Arterial Blood Gas Delivery 2 L Brent Test POS Digoxin Level 0.3 ng/ml Bedside Glucose 378 mg/dl Test 10/23/17 02:40 10/23/17 04:30 10/23/17 04:44 10/23/17 06:06 White Blood Count 5.74 K/uL Red Blood Count 4.10 M/uL Hemoglobin 10.8 g/dL Hematocrit 32.6 % Mean Corpuscular Volume 79.5 fL Mean Corpuscular Hemoglobin 26.3 pg Mean Corpuscular Hemoglobin Concent 33.1 g/dl Platelet Count 185 K/uL Mean Platelet Volume 9.1 fL Neutrophils (%) (Auto) 82.5 % Lymphocytes (%) (Auto) 10.5 % Monocytes (%) (Auto) 5.4 % Eosinophils (%) (Auto) 0.9 % Basophils (%) (Auto) 0.2 % Neutrophils # (Auto) 4.74 K/uL Lymphocytes # (Auto) 0.60 K/uL Monocytes # (Auto) 0.31 K/uL Eosinophils # (Auto) 0.05 K/uL Basophils # (Auto) 0.01 K/uL RDW Standard Deviation 49.7 fL RDW Coefficient of Variation 17.1 % Immature Granulocyte % (Auto) 0.5 % Immature Granulocyte # (Auto) 0.03 K/uL Activated Partial Thromboplast Time 27.5 SECONDS Partial Thromboplastin Ratio 1.1 D-Dimer 430 ug/L FEU Sodium Level 137 mmol/L Potassium Level 3.3 mmol/L Chloride Level 100 mmol/L Carbon Dioxide Level 32 mmol/L Anion Gap 5.0 mmol/L Blood Urea Nitrogen 34 mg/dl Creatinine 1.50 mg/dl Est Creatinine Clear Calc Drug Dose 60.8 ml/min Estimated GFR () 55.4 Estimated GFR (Non- 47.8 BUN/Creatinine Ratio 22.4 Random Glucose 295 mg/dl Calcium Level 8.6 mg/dl Troponin I 0.034 ng/ml Hepatitis C Antibody Screen NEG Urine Color YELLOW Urine Appearance CLEAR Urine pH 5.0 Urine Specific [place] 1.015 Urine Protein 2+ Urine Glucose (UA) 3+ Urine Ketones NEG Urine Occult Blood TRACE Urine Nitrite NEG Urine Bilirubin NEG Urine Urobilinogen NEG Urine Leukocyte Esterase NEG Urine WBC (Auto) 1-5 /hpf Urine RBC (Auto) 0-4 /hpf Urine Hyaline Casts (Auto) 5-10 /lpf Urine Epithelial Cells (Auto) 0-5 /lpf Urine Bacteria (Auto) NEG Urine Opiates Screen NEG Urine Methadone, Qualitative NEG Urine Barbiturates NEG Urine Phencyclidine (PCP) Level NEG Ur Amphetamine/Methamphetamine NEG MDMA (Ecstasy) Screen NEG Urine Benzodiazepines Screen NEG Urine Cocaine Metabolite NEG Urine Marijuana (THC) NEG Bedside Glucose 282 mg/dl 226 mg/dl Test 10/23/17 11:17 Bedside Glucose 252 mg/dl Date/Time Source Procedure Growth Status 10/22/17 20:10 Blood Blood Culture Pending Received 10/22/17 19:48 Blood Blood Culture Pending Received Assessment & Plan Acute hypoxemic respiratory failure Possible secondary to viral bronchitis CXR showed small right pleural effusion and patchy right basilar densities, unchanged. Influenza antigen and pcr negative No leukocytosis Received solumedrol and Zithromax in the ER Will hold on abx for now Will give a short course of prednisone 20mg Continue guaifenesin and duoneb treatment Blood cx pending will check sputum cx Acute Renal Failure Creatine 1.5 on admission Baseline creatine 1 Lasix held Will resume in am after BMP result Chronic CHF CXR showed no change in the cardiomegaly and mild pulmonary edema Received 80mg IV given in the ER Lasix help due to elevate creatine No sign of fluid overload HTN BP improved Continue monitor BP Diabetes Hypoglycemia Received D10 in the ICU BS has been well controlled Lantus was decreased Continue titrate lantus if needed Pharmacy glycemic control appreciated to continue to follow Hypothyroidism Continue Levothyroxine Stable Ambulatory Dysfunction has prosthesis in LLE due to BKA PT/OT Fall precaution Will need placement Hypokalemia K replaced Monitor BMP Depression Continue Sertraline Stable Gout Continue Allopurinol Obesity Counseling on smoking cessation DVT ppx heparin subq Code status Full code Disposition Will need placement does not want him back in the house due to noncompliant Current Inpatient Medications: Current Inpatient Medications Medications (Trade) Dose Ordered Sig/Ifeanyi Route Start Time Stop Time Status Last Admin Dose Admin Heparin Sodium (Porcine) (Heparin Sq 5000 Unit/0.5ml) 5,000 unit Q8 SQ 10/23/17 06:00 11/22/17 05:59 10/23/17 05:01 5,000 UNIT Acetaminophen (Tylenol Tab) 650 mg Q4H PRN PO 10/22/17 23:30 11/21/17 23:29 Nitroglycerin (Nitrostat Tab) 0.4 mg UD PRN SL 10/22/17 23:30 11/21/17 23:29 Glucose (Glucose 40% Gel) 15-30 GRAMS 15 GRAMS... UD PRN PO 10/22/17 23:30 11/21/17 23:29 Glucose (Glucose Chew Tab) 4-8 Tablets 4 Tabl... UD PRN PO 10/22/17 23:30 11/21/17 23:29 Dextrose (Dextrose 50% 50ML Syringe) 25-50ML OF 50% DW IV FOR... UD PRN IV 10/22/17 23:30 11/21/17 23:29 Glucagon (Glucagon Inj) 1 mg UD PRN SQ 10/22/17 23:30 11/21/17 23:29 Guaifenesin (Mucinex Contr Rel Tab) 600 mg Q12 PO 10/23/17 09:00 11/22/17 08:59 10/23/17 08:24 600 MG Allopurinol (Zyloprim Tab) 300 mg DAILY PO 10/23/17 09:00 11/22/17 08:59 10/23/17 08:25 300 MG Aspirin (Ecotrin Tab) 81 mg DAILY PO 10/23/17 09:00 11/22/17 08:59 10/23/17 08:25 81 MG Atorvastatin Calcium (Lipitor Tab) 80 mg DAILY PO 10/23/17 09:00 11/22/17 08:59 10/23/17 08:25 80 MG Digoxin (Lanoxin Tab) 0.25 mg DAILY@1600 PO 10/23/17 16:00 11/22/17 15:59 Isosorbide Mononitrate (Imdur Ext Rel Tab) 15 mg QAM PO 10/23/17 09:00 11/22/17 08:59 10/23/17 08:28 15 MG Levothyroxine Sodium (Synthroid Tab) 50 mcg DAILYBB PO 10/24/17 06:00 11/23/17 06:59 Metoprolol Succinate (Toprol Xl Tab) 25 mg BID PO 10/23/17 09:00 11/22/17 08:59 10/23/17 08:26 25 MG Sertraline HCl (Zoloft Tab) 100 mg DAILY PO 10/23/17 09:00 11/22/17 08:59 10/23/17 08:26 100 MG Tramadol HCl (Ultram Tab) 25 mg Q6H PRN PO 10/22/17 23:30 11/21/17 23:29 Prochlorperazine Edisylate 5 mg/ Syringe 5 ml @ 5 mls/min Q6H PRN IV 10/22/17 23:30 11/21/17 23:29 Ipratropium [place] (Atrovent 0.02% 0.5MG/2.5ML Neb) 0.5 mg Q6R INH 10/23/17 03:00 11/22/17 02:59 10/23/17 07:14 0.5 MG Levalbuterol (Xopenex 1.25MG/ 0.5ML Neb) 1.25 mg Q6R INH 10/23/17 03:00 11/22/17 02:59 10/23/17 07:14 1.25 MG Insulin Aspart (novoLOG ASPART) SLIDING SCALE If C... ACHS SC 10/23/17 11:00 11/22/17 06:59 Insulin Detemir (Levemir Flexpen/ FlexTouch) 20 units BID SQ 10/23/17 21:00 11/22/17 08:59
[2017-10-23] MEDS: DIGOXIN 0.25 MG TAB PO SCH (16:47)
[2017-10-24] VITALS (15 sets, daily range): BP systolic 119–177; BP diastolic 66–101; PULSE 62–102; TEMP 36.5–37.6; O2SAT 90–100; Ht 177.8 cm; Wt 104.0 kg
[2017-10-24] MEDS ORDERED: INSULIN ASPART 100 UNITS/ML 3 ML PEN SC ONE ×2 (01:02→19:33)
[2017-10-24] MEDS: LEVALBUTEROL 1.25MG/0.5ML NEB INH SCH ×5 (01:39→23:24)
[2017-10-24] MEDS: IPRATROPIUM BROMIDE NEB SOLN 0.02% 2.5 ML VIAL INH SCH ×5 (01:39→23:23)
[2017-10-24] MEDS ORDERED: INSULIN DETEMIR FLEXPEN/FLEX TOUCH 100 UNITS/ML 3ML SQ ONE (02:10)
[2017-10-24] MEDS ORDERED: SODIUM CHLORIDE 0.9% 500ML 500 ML IV ONE (02:15)
[2017-10-24] MEDS: LEVOTHYROXINE 50 MCG TAB PO SCH (06:30)
[2017-10-24] MEDS: HEPARIN SOD 5000 UNIT/0.5 ML CARP SQ SCH ×3 (06:32→22:11)
[2017-10-24 07:43] LABS: CALCIUM 9.4 mg/dl (8.5-10.1); CREATININE 1.57 mg/dl (0.60-1.40); POTASSIUM 4.2 mmol/L (3.5-5.1)
--- NOTE | 2017-10-24 07:44 | Clinical Documentation Query ---
RORY Crum : CLINICAL DOCUMENTATION QUERY Clinical documentation includes a diagnosis of: Acute Respiratory Failure. ER assessment documentation includes "in no distress" and "stable vital signs". H&P documentation includes "no respiratory distress" and notes that abnormalities on blood gas are possibly venous as per tech. Due to stringent requirements by our coding department, multiple clinical indicators associated with this diagnosis must be present in order for this to be coded/captured within the medical record. If appropriate, please document 2 or more of the following clinical indicators in daily progress notes and the discharge summary. If you feel the diagnosis of acute respiratory failure was made in error, or do not agree with it, simply discontinue documentation thereof. Acute Respiratory Failure indicators include: * Respirations >28 * Air hunger * Use of accessory muscles of respiration * Inability to speak in full sentences * Cyanosis * Pulse ox <90% RA or <95% on O2 *pH <7.35 or >7.45 * pO2 < 60 mm Hg (or 10mm below COPD patient's baseline) * pCO2 >50mm Hg (or 10mm above COPD patient's baseline) * mechanical ventilation * Increased work of breathing * Tachypnea IF IN AGREEMENT, YOU MUST DOCUMENT ABOVE DIAGNOSTIC STATEMENT IN DAILY PROGRESS NOTES AND DISCHARGE SUMMARY. This document is not part of the patient's record. Thank You, Dimitry Lopez, RAMON [phone]
[2017-10-24] MEDS: METOPROLOL SUCC 25MG EXT REL TAB PO SCH ×2 (08:08→22:03)
[2017-10-24] MEDS: SERTRALINE HCL 100 MG TAB PO SCH (08:08)
[2017-10-24] MEDS ORDERED: LEVALBUTEROL/IPRATROPIUM NEB INH STA (08:23)
[2017-10-24] MEDS ORDERED: LEVALBUTEROL 1.25MG/0.5ML NEB INH STA (08:34)
[2017-10-24] MEDS ORDERED: IPRATROPIUM BROMIDE NEB SOLN 0.02% 2.5 ML VIAL INH STA (08:34)
[2017-10-24] MEDS ORDERED: PHARMACY GLYCEMIC MGMT CONSULT PRN (08:53)
--- NOTE | 2017-10-24 08:55 | DIAGNOSTIC IMAGING REPORT ---
CHEST ONE VIEW PORTABLE HISTORY: Short of breath. Respiratory failure. COMPARISON: Chest 10/22/2017. FINDINGS: The heart remains enlarged. Left-sided pacemaker/defibrillator. Improved aeration within the right lung base. Trace right pleural effusion. No pneumothorax. Mild pulmonary vascular congestion has slightly improved. Healing right lower rib fractures are again noted. IMPRESSION: Cardiomegaly with slight improvement in the mild pulmonary vascular congestion and right basilar airspace opacities. Electronically signed by: Man Hamlin M.D. 10/24/2017 8:54 AM Dictated Date/Time: 10/24/2017 8:52 AM
[2017-10-24] MEDS ORDERED: INSULIN DETEMIR FLEXPEN/FLEX TOUCH 100 UNITS/ML 3ML SQ SCH ×2 (09:00)
[2017-10-24] MEDS ORDERED: FUROSEMIDE INJ 20 MG in SYRINGE 0 ML IV ONE (09:30)
[2017-10-24] MEDS: INSULIN ASPART 100 UNITS/ML 3 ML PEN SC SCH ×4 (09:46→22:10)
[2017-10-24] MEDS ORDERED: HYDROCORTISONE IV 100 MG in SYRINGE 0 ML IV ONE (10:00)
[2017-10-24] MEDS ORDERED: FUROSEMIDE 80 MG TAB PO ONE (10:00)
--- NOTE | 2017-10-24 10:12 | Progress Note ---
Medicine Progress Note Date & Time of Visit: Oct 24, 2017 at 10:12. Subjective RN reports patient has some dyspnea this morning Patient seen and examined at bedside Awake alert sitting up in bed oriented 3 Not in distress, speaks in sentences with no effort Has some mild dyspnea His breathing is about the same as yesterday Intermittent cough nonproductive Denies chest pain No other symptoms noted Objective Last 8 Hrs Date Time Temp Pulse Resp B/P (MAP) Pulse Ox O2 Delivery O2 Flow Rate FiO2 10/24/17 09:21 88 20 92 Nasal Cannula 2.0 10/24/17 07:11 102 20 90 Room Air 10/24/17 04:00 Room Air 10/24/17 02:51 36.8 83 20 149/84 (105) 92 Room Air Physical Exam: General-oriented 3, speaks in sentences mild effort effort no accessory muscle use Head- atraumatic Eyes- PERRL, EOMI, anicteric ENT- oropharynx clear Neck- supple, no JVD, no adenopathy, no thyromegaly; carotids +2/2 Lungs-positive mild rales mid to base no wheezing Heart- regular rhythm; no murmur, normal rate Abdomen- normal bowel sounds, soft, nontender Extremities- no pretibial edema, no calf tenderness; Neuro- alert, oriented x 3; no gross focal motor or sensory deficits no other neurologic deficits Skin- warm & dry Laboratory Results: Last 24 Hours Test 10/23/17 11:17 10/23/17 15:49 10/23/17 20:14 10/23/17 20:15 Bedside Glucose 252 mg/dl 349 mg/dl 339 mg/dl 351 mg/dl Test 10/24/17 01:12 10/24/17 06:50 10/24/17 07:00 Bedside Glucose 316 mg/dl 224 mg/dl Sodium Level 134 mmol/L Potassium Level 4.2 mmol/L Chloride Level 97 mmol/L Carbon Dioxide Level 29 mmol/L Anion Gap 8.0 mmol/L Blood Urea Nitrogen 46 mg/dl Creatinine 1.57 mg/dl Est Creatinine Clear Calc Drug Dose 58.2 ml/min Estimated GFR () 52.5 Estimated GFR (Non- 45.3 BUN/Creatinine Ratio 29.0 Random Glucose 186 mg/dl Calcium Level 9.4 mg/dl Assessment & Plan ACUTE HYPOXIC RESPIRATORY FAILURE POSSIBLE SECONDARY TO VIRAL BRONCHITIS CXR showed small right pleural effusion and patchy right basilar densities, unchanged. Influenza antigen and pcr negative No leukocytosis --On 2 L nasal cannula today Increase nebs to every 4 hours Discontinue prednisone Monitor POSSIBLE COMPONENT OF VOLUME OVERLOAD CHF DIASTOLIC DYSFUNCTION EXACERBATION COMPONENT BNP elevated Lasix 20 mg IV given Resume Lasix 80 mg p.o. daily as usual Monitor ACUTE RENAL FAILURE Creatine 1.5 on admission Baseline creatine 1 Monitor creatinine while on Lasix CHRONIC CHF Management as noted above HTN BP improved Continue monitor BP DIABETES TYPE 2 We will consult pharmacy for glycemic control HYPOTHYROIDISM Continue Levothyroxine Stable Ambulatory Dysfunction has prosthesis in LLE due to BKA PT/OT Fall precaution Will need placement Depression Continue Sertraline Stable Gout Continue Allopurinol Obesity Counseling on smoking cessation DVT ppx heparin subq Code status Full code Disposition Will need placement does not want him back in the house due to noncompliant Current Inpatient Medications: Current Inpatient Medications Medications (Trade) Dose Ordered Sig/Ifeanyi Route Start Time Stop Time Status Last Admin Dose Admin Heparin Sodium (Porcine) (Heparin Sq 5000 Unit/0.5ml) 5,000 unit Q8 SQ 10/23/17 06:00 11/22/17 05:59 10/24/17 06:32 5,000 UNIT Acetaminophen (Tylenol Tab) 650 mg Q4H PRN PO 10/22/17 23:30 11/21/17 23:29 Nitroglycerin (Nitrostat Tab) 0.4 mg UD PRN SL 10/22/17 23:30 11/21/17 23:29 Glucose (Glucose 40% Gel) 15-30 GRAMS 15 GRAMS... UD PRN PO 10/22/17 23:30 11/21/17 23:29 Glucose (Glucose Chew Tab) 4-8 Tablets 4 Tabl... UD PRN PO 10/22/17 23:30 11/21/17 23:29 Dextrose (Dextrose 50% 50ML Syringe) 25-50ML OF 50% DW IV FOR... UD PRN IV 10/22/17 23:30 11/21/17 23:29 Glucagon (Glucagon Inj) 1 mg UD PRN SQ 10/22/17 23:30 11/21/17 23:29 Guaifenesin (Mucinex Contr Rel Tab) 600 mg Q12 PO 10/23/17 09:00 11/22/17 08:59 10/23/17 21:36 600 MG Allopurinol (Zyloprim Tab) 300 mg DAILY PO 10/23/17 09:00 11/22/17 08:59 10/23/17 08:25 300 MG Aspirin (Ecotrin Tab) 81 mg DAILY PO 10/23/17 09:00 11/22/17 08:59 10/23/17 08:25 81 MG Atorvastatin Calcium (Lipitor Tab) 80 mg DAILY PO 10/23/17 09:00 11/22/17 08:59 10/23/17 08:25 80 MG Digoxin (Lanoxin Tab) 0.25 mg DAILY@1600 PO 10/23/17 16:00 11/22/17 15:59 10/23/17 16:47 0.25 MG Isosorbide Mononitrate (Imdur Ext Rel Tab) 15 mg QAM PO 10/23/17 09:00 11/22/17 08:59 10/23/17 08:28 15 MG Levothyroxine Sodium (Synthroid Tab) 50 mcg DAILYBB PO 10/24/17 06:00 11/23/17 06:59 10/24/17 06:30 50 MCG Metoprolol Succinate (Toprol Xl Tab) 25 mg BID PO 10/23/17 09:00 11/22/17 08:59 10/24/17 08:08 25 MG Sertraline HCl (Zoloft Tab) 100 mg DAILY PO 10/23/17 09:00 11/22/17 08:59 10/24/17 08:08 100 MG Tramadol HCl (Ultram Tab) 25 mg Q6H PRN PO 10/22/17 23:30 11/21/17 23:29 Prochlorperazine Edisylate 5 mg/ Syringe 5 ml @ 5 mls/min Q6H PRN IV 10/22/17 23:30 11/21/17 23:29 Insulin Aspart (novoLOG ASPART) SLIDING SCALE If C... ACHS SC 10/24/17 07:00 11/22/17 06:59 10/24/17 09:46 2 UNITS Insulin Aspart (novoLOG ASPART) SLIDING SCALE If C... 1933 ONCE SC 10/24/17 19:33 10/24/17 19:34 Insulin Detemir (Levemir Flexpen/ FlexTouch) 35 units BID SQ 10/24/17 09:00 11/22/17 08:59 10/24/17 09:47 35 UNITS Ipratropium [place] (Atrovent 0.02% 0.5MG/2.5ML Neb) 0.5 mg Q4R INH 10/24/17 12:00 11/23/17 11:59 Levalbuterol (Xopenex 1.25MG/ 0.5ML Neb) 1.25 mg Q4R INH 10/24/17 12:00 11/23/17 11:59 Miscellaneous Information (Consult Glycemic Management Pharmacy) 1 ea UD PRN N/A 10/24/17 08:53 11/23/17 08:52 Hydrocortisone Sodium Succinate 50 mg/Syringe 1 ml @ 4 mls/min Q6H IV 10/24/17 16:00 11/23/17 15:59 Furosemide (Lasix Tab) 80 mg QAM PO 10/25/17 09:00 11/24/17 08:59
[2017-10-24] MEDS: ASPIRIN 81 MG ECTAB PO SCH (10:23)
[2017-10-24] MEDS: ISOSORBIDE MONONITRATE 30 MG TABCR PO SCH (10:24)
[2017-10-24] MEDS: ATORVASTATIN 40 MG TAB PO SCH (10:25)
[2017-10-24] MEDS: ALLOPURINOL 100 MG TAB PO SCH (10:27)
[2017-10-24] MEDS: GUAIFENESIN 600 MG TABCR PO SCH ×2 (11:19→22:03)
--- NOTE | 2017-10-24 14:17 | Pharmacy Progress Note ---
Pharmacy Glycemic Short Note 2 Date of Service Oct 24, 2017. OUTPATIENT ANTIDIABETIC REGIMEN: * Levemir 15 units SQ BID * Regular insulin 30 units SQ qAM * Glyburide 5mg PO qAM * HbA1c: 8.8% (10/22/17) ASSESSMENT: * Mr Koroma is a 66yo diabetic male, well known to pharmacy glycemic mgmt service from past admissions. * Patient has been hyperglycemic since admission, likely d/t receiving SoluMedrol and Prednisone yesterday. * Patient is now ordered Hydrocortisone 60mg IV q6h, which may contribute to hyperglycemia, but expect to a lesser degree than the other glucocorticoids. * Will order Lantus dose this evening based on HS BSG and adjust regimen as needed. PLAN FOR INPATIENT GLYCEMIC CONTROL: * Hold outpatient oral diabetes medications * Basal insulin * Lantus 45 units SQ received this am, then BID per scale: -- 10 units for BSG less than 140 mg/dL -- 20 units for BSG 140-180 mg/dL -- 30 units for BSG greater than 180 mg/dL * Bolus insulin * NovoLog per scale ACHS or Q6hrs while NPO * Goal Range: Low 140 mg/dL - High 180 mg/dL * Correction Factor: 20 mg/dL/unit * Nutritional / Prandial insulin per carb ratio of 1 unit per 8 grams CHO consumed PLAN FOR DISCHARGE: * Current A1c (8.8%) reflects sub-optimal glycemic control for a 66yo gentleman. * Might consider adjustment to outpt regimen on discharge. * Recommend close f/u with PCP after discharge to work toward optimizing A1c.
[2017-10-24] MEDS: DIGOXIN 0.25 MG TAB PO SCH (15:23)
[2017-10-24] MEDS ORDERED: HYDROCORTISONE IV 50 MG in SYRINGE 0 ML IV SCH (16:00)
[2017-10-24] MEDS: INSULIN DETEMIR FLEXPEN/FLEX TOUCH 100 UNITS/ML 3ML SQ SCH (22:11)
[2017-10-25] VITALS (16 sets, daily range): BP systolic 113–158; BP diastolic 64–78; PULSE 62–149; TEMP 36.5–36.7; O2SAT 93–99
[2017-10-25] MEDS: IPRATROPIUM BROMIDE NEB SOLN 0.02% 2.5 ML VIAL INH SCH ×6 (03:37→23:06)
[2017-10-25] MEDS: LEVALBUTEROL 1.25MG/0.5ML NEB INH SCH ×6 (03:38→23:06)
[2017-10-25] MEDS: LEVOTHYROXINE 50 MCG TAB PO SCH (05:13)
[2017-10-25] MEDS: HEPARIN SOD 5000 UNIT/0.5 ML CARP SQ SCH ×3 (05:13→21:52)
[2017-10-25 06:30] LABS: CALCIUM 9.1 mg/dl (8.5-10.1); CREATININE 1.5 mg/dl (0.60-1.40); POTASSIUM 3.3 mmol/L (3.5-5.1)
[2017-10-25] MEDS ORDERED: POTASSIUM CHLORIDE 20 MEQ TABCR PO ONE (08:00)
[2017-10-25] MEDS ORDERED: FUROSEMIDE 80 MG TAB PO SCH (09:00)
[2017-10-25] MEDS: ISOSORBIDE MONONITRATE 30 MG TABCR PO SCH (09:04)
[2017-10-25] MEDS: ASPIRIN 81 MG ECTAB PO SCH (09:04)
[2017-10-25] MEDS: ATORVASTATIN 40 MG TAB PO SCH (09:05)
[2017-10-25] MEDS: GUAIFENESIN 600 MG TABCR PO SCH ×2 (09:06→20:25)
[2017-10-25] MEDS: METOPROLOL SUCC 25MG EXT REL TAB PO SCH ×2 (09:06→20:25)
[2017-10-25] MEDS: SERTRALINE HCL 100 MG TAB PO SCH (09:06)
[2017-10-25] MEDS: ALLOPURINOL 100 MG TAB PO SCH (09:07)
[2017-10-25] MEDS: INSULIN ASPART 100 UNITS/ML 3 ML PEN SC SCH ×4 (09:15→20:25)
[2017-10-25] MEDS: INSULIN DETEMIR FLEXPEN/FLEX TOUCH 100 UNITS/ML 3ML SQ SCH ×2 (09:17→20:28)
--- NOTE | 2017-10-25 15:45 | Progress Note ---
Medicine Progress Note Date & Time of Visit: Oct 25, 2017 at 15:39. Subjective seen resting in bed, comfortable reading the paper states breathing and cough improved compared to yesterday denies chest pain, dyspnea, palpitations, dizziness no other symptoms Objective Last 8 Hrs Date Time Temp Pulse Resp B/P (MAP) Pulse Ox O2 Delivery O2 Flow Rate FiO2 10/25/17 14:43 65 18 93 Nasal Cannula 2.0 10/25/17 12:11 98 Nasal Cannula 2.0 10/25/17 11:38 36.5 149 16 113/64 (80) 95 Room Air 10/25/17 11:11 72 18 98 Nasal Cannula 2.0 10/25/17 08:28 Nasal Cannula 2.0 10/25/17 08:01 98 Nasal Cannula 2.0 Physical Exam: General-oriented 3, speaks in sentences mild effort effort no accessory muscle use Eyes- anicteric Neck- supple, no JVD Lungs-mild wheezing right base, no rales Heart- regular rhythm; no murmur, normal rate Abdomen- normal bowel sounds, soft, nontender Extremities- no pretibial edema, no calf tenderness; Neuro- alert, oriented x 3; no gross focal motor or sensory deficits no other neurologic deficits Skin- warm & dry Laboratory Results: Last 24 Hours Test 10/24/17 15:59 10/24/17 19:42 10/25/17 05:19 10/25/17 06:38 Bedside Glucose 82 mg/dl 121 mg/dl 172 mg/dl Sodium Level 137 mmol/L Potassium Level 3.3 mmol/L Chloride Level 100 mmol/L Carbon Dioxide Level 27 mmol/L Anion Gap 10.0 mmol/L Blood Urea Nitrogen 58 mg/dl Creatinine 1.50 mg/dl Est Creatinine Clear Calc Drug Dose 61.0 ml/min Estimated GFR () 55.4 Estimated GFR (Non- 47.8 BUN/Creatinine Ratio 38.8 Random Glucose 181 mg/dl Calcium Level 9.1 mg/dl Test 10/25/17 10:52 10/25/17 15:23 10/25/17 15:36 Bedside Glucose 160 mg/dl Date/Time Source Procedure Growth Status 10/25/17 15:23 Blood Blood Culture Pending Ordered 10/25/17 15:23 Blood Blood Culture Pending Ordered Assessment & Plan ACUTE HYPOXIC RESPIRATORY FAILURE POSSIBLE SECONDARY TO VIRAL BRONCHITIS CXR showed small right pleural effusion and patchy right basilar densities, unchanged. Influenza antigen and pcr negative No leukocytosis -- still on 2 liters o2 but less wheezing continue Nebs q4h check repeat cxr and get Procalcitonin, hold off on Prednisone and Abx COMPONENT OF VOLUME OVERLOAD/ CHF DIASTOLIC DYSFUNCTION EXACERBATION BNP elevated Lasix 20 mg IV given Resumed Lasix 80 mg p.o. daily as usual - negative 1 liter so far ff up CXR today ACUTE RENAL FAILURE Creatine 1.5 on admission Baseline creatine 1 crea remains 1.5 hold off Lasix until repeat CXR CHRONIC CHF Management as noted above HTN BP improved Continue monitor BP DIABETES TYPE 2 Pharmacy for glycemic control HYPOTHYROIDISM Continue Levothyroxine Stable Ambulatory Dysfunction has prosthesis in LLE due to BKA PT/OT Fall precaution Will need placement Depression Continue Sertraline Stable Gout Continue Allopurinol Obesity Counseling on smoking cessation DVT ppx heparin subq Code status Full code Disposition Will need placement does not want him back in the house due to noncompliant Current Inpatient Medications: Current Inpatient Medications Medications (Trade) Dose Ordered Sig/Ifeanyi Route Start Time Stop Time Status Last Admin Dose Admin Heparin Sodium (Porcine) (Heparin Sq 5000 Unit/0.5ml) 5,000 unit Q8 SQ 10/23/17 06:00 11/22/17 05:59 10/25/17 12:53 5,000 UNIT Acetaminophen (Tylenol Tab) 650 mg Q4H PRN PO 10/22/17 23:30 11/21/17 23:29 Nitroglycerin (Nitrostat Tab) 0.4 mg UD PRN SL 10/22/17 23:30 11/21/17 23:29 Glucose (Glucose 40% Gel) 15-30 GRAMS 15 GRAMS... UD PRN PO 10/22/17 23:30 11/21/17 23:29 Glucose (Glucose Chew Tab) 4-8 Tablets 4 Tabl... UD PRN PO 10/22/17 23:30 11/21/17 23:29 Dextrose (Dextrose 50% 50ML Syringe) 25-50ML OF 50% DW IV FOR... UD PRN IV 10/22/17 23:30 11/21/17 23:29 Glucagon (Glucagon Inj) 1 mg UD PRN SQ 10/22/17 23:30 11/21/17 23:29 Guaifenesin (Mucinex Contr Rel Tab) 600 mg Q12 PO 10/23/17 09:00 11/22/17 08:59 10/25/17 09:06 600 MG Allopurinol (Zyloprim Tab) 300 mg DAILY PO 10/23/17 09:00 11/22/17 08:59 10/25/17 09:07 300 MG Aspirin (Ecotrin Tab) 81 mg DAILY PO 10/23/17 09:00 11/22/17 08:59 10/25/17 09:04 81 MG Atorvastatin Calcium (Lipitor Tab) 80 mg DAILY PO 10/23/17 09:00 11/22/17 08:59 10/25/17 09:05 80 MG Digoxin (Lanoxin Tab) 0.25 mg DAILY@1600 PO 10/23/17 16:00 11/22/17 15:59 10/24/17 15:23 0.25 MG Isosorbide Mononitrate (Imdur Ext Rel Tab) 15 mg QAM PO 10/23/17 09:00 11/22/17 08:59 10/25/17 09:04 15 MG Levothyroxine Sodium (Synthroid Tab) 50 mcg DAILYBB PO 10/24/17 06:00 11/23/17 06:59 10/25/17 05:13 50 MCG Metoprolol Succinate (Toprol Xl Tab) 25 mg BID PO 10/23/17 09:00 11/22/17 08:59 10/25/17 09:06 25 MG Sertraline HCl (Zoloft Tab) 100 mg DAILY PO 10/23/17 09:00 11/22/17 08:59 10/25/17 09:06 100 MG Tramadol HCl (Ultram Tab) 25 mg Q6H PRN PO 10/22/17 23:30 11/21/17 23:29 Prochlorperazine Edisylate 5 mg/ Syringe 5 ml @ 5 mls/min Q6H PRN IV 10/22/17 23:30 11/21/17 23:29 Insulin Aspart (novoLOG ASPART) SLIDING SCALE If C... ACHS SC 10/24/17 07:00 11/22/17 06:59 10/25/17 12:53 6 UNITS Ipratropium [place] (Atrovent 0.02% 0.5MG/2.5ML Neb) 0.5 mg Q4R INH 10/24/17 12:00 11/23/17 11:59 10/25/17 14:43 0.5 MG Levalbuterol (Xopenex 1.25MG/ 0.5ML Neb) 1.25 mg Q4R INH 10/24/17 12:00 11/23/17 11:59 10/25/17 14:43 1.25 MG Miscellaneous Information (Consult Glycemic Management Pharmacy) 1 ea UD PRN N/A 10/24/17 08:53 11/23/17 08:52 Furosemide (Lasix Tab) 80 mg QAM PO 10/25/17 09:00 11/24/17 08:59 10/25/17 09:05 80 MG Insulin Detemir (Levemir Flexpen/ FlexTouch) SEE PROTOCOL TEXT BID SQ 10/24/17 21:00 11/23/17 20:59 10/25/17 09:17 20 UNITS
[2017-10-25 16:43] LABS: POTASSIUM 3.5 mmol/L (3.5-5.1)
--- NOTE | 2017-10-25 16:57 | DIAGNOSTIC IMAGING REPORT ---
SINGLE VIEW CHEST CLINICAL HISTORY: Dyspnea. Respiratory failure. FINDINGS: An AP, portable, upright chest radiograph is compared to study dated 10/24/2017. The examination is degraded by portable technique and patient rotation. A 3-lead cardiac AICD partially obscures the left upper lobe. The heart is enlarged. Pulmonary vascular congestion and mild interstitial edema has not significantly changed from yesterday. No a small right pleural effusion is identified. No airspace consolidation is seen typical for pneumonia. No pneumothorax is seen. Right-sided rib fractures are observed. IMPRESSION: 1. Cardiomegaly and AICD. Congestive failure and mild interstitial edema is similar in appearance to yesterday. 2. Small right pleural effusion. Electronically signed by: Bennett Dahl M.D. 10/25/2017 4:56 PM Dictated Date/Time: 10/25/2017 4:54 PM
[2017-10-25] MEDS: DIGOXIN 0.25 MG TAB PO SCH (17:55)
[2017-10-25] MEDS ORDERED: DOXYCYCLINE HYCLATE 100 MG CAP PO ONE (21:34)
[2017-10-26] VITALS (16 sets, daily range): BP systolic 124–175; BP diastolic 70–84; PULSE 61–78; TEMP 36.3–36.6; O2SAT 20–95
[2017-10-26] MEDS: LEVALBUTEROL 1.25MG/0.5ML NEB INH SCH ×6 (03:17→22:52)
[2017-10-26] MEDS: IPRATROPIUM BROMIDE NEB SOLN 0.02% 2.5 ML VIAL INH SCH ×6 (03:17→22:52)
[2017-10-26] MEDS: HEPARIN SOD 5000 UNIT/0.5 ML CARP SQ SCH ×3 (06:09→21:15)
[2017-10-26] MEDS: LEVOTHYROXINE 50 MCG TAB PO SCH (06:09)
[2017-10-26] MEDS: INSULIN ASPART 100 UNITS/ML 3 ML PEN SC SCH ×4 (07:00→21:14)
[2017-10-26 07:30] LABS: BASO % 0.4 %; BASO ABS # 0.04 K/uL (0-0.2); EOS % 0.8 %; EOS ABS # 0.07 K/uL (0-0.5); HEMATOCRIT 36.6 % (42-52); HEMOGLOBIN 12.3 g/dL (14.0-18.0); IG# 0.05 K/uL (0.00-0.02); LYMPH % 12.2 %; LYMPH ABS # 1.12 K/uL (1.2-3.4); MEAN CORPUSCULAR HEMOGLOBIN 26.6 pg (25-34); MEAN CORPUSCULAR HGB CONC 33.6 g/dl (32-36); MEAN PLATELET VOLUME 9.1 fL (7.4-10.4); MONO % 6.8 %; MONO ABS # 0.62 K/uL (0.11-0.59); NEUT % 79.3 %; NEUT ABS # 7.25 K/uL (1.4-6.5); PLATELET COUNT 243 K/uL (130-400); RED CELL DISTRIBUTION WIDTH CV 16.6 % (11.5-14.5); RED CELL DISTRIBUTION WIDTH SD 47.5 fL (36.4-46.3); WHITE BLOOD COUNT 9.15 K/uL (4.8-10.8)
[2017-10-26] MEDS: ALLOPURINOL 100 MG TAB PO SCH (07:59)
[2017-10-26 08:00] LABS: CALCIUM 9.2 mg/dl (8.5-10.1); CREATININE 1.48 mg/dl (0.60-1.40); POTASSIUM 3.7 mmol/L (3.5-5.1)
[2017-10-26] MEDS: ATORVASTATIN 40 MG TAB PO SCH (08:00)
[2017-10-26] MEDS: GUAIFENESIN 600 MG TABCR PO SCH ×2 (08:00→21:09)
[2017-10-26] MEDS: SERTRALINE HCL 100 MG TAB PO SCH (08:00)
[2017-10-26] MEDS: METOPROLOL SUCC 25MG EXT REL TAB PO SCH ×2 (08:00→21:09)
[2017-10-26] MEDS: ASPIRIN 81 MG ECTAB PO SCH (08:00)
[2017-10-26] MEDS: ISOSORBIDE MONONITRATE 30 MG TABCR PO SCH (08:01)
[2017-10-26] MEDS: INSULIN DETEMIR FLEXPEN/FLEX TOUCH 100 UNITS/ML 3ML SQ SCH ×2 (08:07→21:14)
[2017-10-26] MEDS: DOXYCYCLINE HYCLATE 100 MG CAP PO SCH ×2 (09:33→21:09)
--- NOTE | 2017-10-26 09:45 | Progress Note ---
Medicine Progress Note Date & Time of Visit: Oct 26, 2017 at 09:39. Subjective seen resting in bed, comfortable states he feels improved today compared to yesterday breathing and cough improving denies chest pain, palpitations, dizziness no other symptoms Objective Last 8 Hrs Date Time Temp Pulse Resp B/P (MAP) Pulse Ox O2 Delivery O2 Flow Rate FiO2 10/26/17 08:12 94 Room Air 10/26/17 08:00 36.4 68 18 160/72 (101) 94 Room Air 10/26/17 07:03 36.3 65 19 162/75 (104) 95 Room Air 10/26/17 06:58 63 16 95 Room Air 10/26/17 04:00 Room Air 10/26/17 04:00 36.5 72 20 175/81 (112) 94 Room Air 170/77 (108) Physical Exam: General-oriented 3, speaks in sentences,no effort effort no accessory muscle use Eyes- anicteric Neck- no JVD Lungs-mild wheezing bilateral bases Heart- regular rhythm; no murmur, normal rate Abdomen- normal bowel sounds, soft, nontender Extremities- no pretibial edema, no calf tenderness; Neuro- alert, oriented x 3; no gross focal motor or sensory deficits no other neurologic deficits Skin- warm & dry Laboratory Results: Last 24 Hours Test 10/25/17 10:52 10/25/17 16:12 10/25/17 16:20 10/25/17 17:41 Bedside Glucose 160 mg/dl 64 mg/dl 132 mg/dl Potassium Level 3.5 mmol/L Magnesium Level 2.2 mg/dl Procalcitonin 1.32 ng/ml Test 10/25/17 20:23 10/26/17 06:54 10/26/17 07:06 10/26/17 07:10 Bedside Glucose 135 mg/dl 57 mg/dl 64 mg/dl White Blood Count 9.15 K/uL Red Blood Count 4.63 M/uL Hemoglobin 12.3 g/dL Hematocrit 36.6 % Mean Corpuscular Volume 79.0 fL Mean Corpuscular Hemoglobin 26.6 pg Mean Corpuscular Hemoglobin Concent 33.6 g/dl Platelet Count 243 K/uL Mean Platelet Volume 9.1 fL Neutrophils (%) (Auto) 79.3 % Lymphocytes (%) (Auto) 12.2 % Monocytes (%) (Auto) 6.8 % Eosinophils (%) (Auto) 0.8 % Basophils (%) (Auto) 0.4 % Neutrophils # (Auto) 7.25 K/uL Lymphocytes # (Auto) 1.12 K/uL Monocytes # (Auto) 0.62 K/uL Eosinophils # (Auto) 0.07 K/uL Basophils # (Auto) 0.04 K/uL RDW Standard Deviation 47.5 fL RDW Coefficient of Variation 16.6 % Immature Granulocyte % (Auto) 0.5 % Immature Granulocyte # (Auto) 0.05 K/uL Sodium Level 138 mmol/L Potassium Level 3.7 mmol/L Chloride Level 101 mmol/L Carbon Dioxide Level 33 mmol/L Anion Gap 5.0 mmol/L Blood Urea Nitrogen 57 mg/dl Creatinine 1.48 mg/dl Est Creatinine Clear Calc Drug Dose 60.8 ml/min Estimated GFR () 56.3 Estimated GFR (Non- 48.6 BUN/Creatinine Ratio 38.2 Random Glucose 55 mg/dl Calcium Level 9.2 mg/dl Test 10/26/17 07:29 Bedside Glucose 78 mg/dl Date/Time Source Procedure Growth Status 10/25/17 16:20 Blood Blood Culture Pending Received 10/25/17 16:11 Blood Blood Culture Pending Received Assessment & Plan ACUTE HYPOXIC RESPIRATORY FAILURE POSSIBLE SECONDARY TO ACUTE BRONCHITIS CXR showed small right pleural effusion and patchy right basilar densities, unchanged. Influenza antigen and pcr negative Procalcitonin elevated No leukocytosis -- now on room air, still has wheeze added Doxycycline PO BID yesterday, continue for now, Day 2 continue Nebs q4h hold off on Prednisone, patient has no history of COPD COMPONENT OF ACUTE ON CHRONIC SYSTOLIC CHF, CARDIOMYOPATHY BNP elevated CXR possible CHF 10/24 Lasix 20 mg IV given Resumed Lasix 80 mg p.o. daily as usual diuresing well so far, weight down to 109 crea remaining at ~1.5 (usually 1) Lasix 40mg po for today will consult Cardiology ACUTE RENAL FAILURE Creatine 1.5 on admission Baseline creatine 1 crea remains ~1.5 reduce Lasix to 40mg po daily monitor CHRONIC SYSTOLIC CHF, CARDIOMYOPATHY, EF 15-20% OF LAST YEAR Management as noted above HTN BP improved Continue monitor BP DIABETES TYPE 2 Pharmacy for glycemic control HYPOTHYROIDISM Continue Levothyroxine Stable Ambulatory Dysfunction has prosthesis in LLE due to BKA PT/OT Fall precaution Will need placement Depression Continue Sertraline Stable Gout Continue Allopurinol Obesity Counseling on smoking cessation DVT ppx heparin subq Code status Full code Disposition Will need placement does not want him back in the house due to noncompliant Current Inpatient Medications: Current Inpatient Medications Medications (Trade) Dose Ordered Sig/Ifeanyi Route Start Time Stop Time Status Last Admin Dose Admin Heparin Sodium (Porcine) (Heparin Sq 5000 Unit/0.5ml) 5,000 unit Q8 SQ 10/23/17 06:00 11/22/17 05:59 10/26/17 06:09 5,000 UNIT Acetaminophen (Tylenol Tab) 650 mg Q4H PRN PO 10/22/17 23:30 11/21/17 23:29 Nitroglycerin (Nitrostat Tab) 0.4 mg UD PRN SL 10/22/17 23:30 11/21/17 23:29 Glucose (Glucose 40% Gel) 15-30 GRAMS 15 GRAMS... UD PRN PO 10/22/17 23:30 11/21/17 23:29 Glucose (Glucose Chew Tab) 4-8 Tablets 4 Tabl... UD PRN PO 10/22/17 23:30 11/21/17 23:29 Dextrose (Dextrose 50% 50ML Syringe) 25-50ML OF 50% DW IV FOR... UD PRN IV 10/22/17 23:30 11/21/17 23:29 Glucagon (Glucagon Inj) 1 mg UD PRN SQ 10/22/17 23:30 11/21/17 23:29 Guaifenesin (Mucinex Contr Rel Tab) 600 mg Q12 PO 10/23/17 09:00 11/22/17 08:59 10/26/17 08:00 600 MG Allopurinol (Zyloprim Tab) 300 mg DAILY PO 10/23/17 09:00 11/22/17 08:59 10/26/17 07:59 300 MG Aspirin (Ecotrin Tab) 81 mg DAILY PO 10/23/17 09:00 11/22/17 08:59 10/26/17 08:00 81 MG Atorvastatin Calcium (Lipitor Tab) 80 mg DAILY PO 10/23/17 09:00 11/22/17 08:59 10/26/17 08:00 80 MG Digoxin (Lanoxin Tab) 0.25 mg DAILY@1600 PO 10/23/17 16:00 11/22/17 15:59 10/25/17 17:55 0.25 MG Isosorbide Mononitrate (Imdur Ext Rel Tab) 15 mg QAM PO 10/23/17 09:00 11/22/17 08:59 10/26/17 08:01 15 MG Levothyroxine Sodium (Synthroid Tab) 50 mcg DAILYBB PO 10/24/17 06:00 11/23/17 06:59 10/26/17 06:09 50 MCG Metoprolol Succinate (Toprol Xl Tab) 25 mg BID PO 10/23/17 09:00 11/22/17 08:59 10/26/17 08:00 25 MG Sertraline HCl (Zoloft Tab) 100 mg DAILY PO 10/23/17 09:00 11/22/17 08:59 10/26/17 08:00 100 MG Tramadol HCl (Ultram Tab) 25 mg Q6H PRN PO 10/22/17 23:30 11/21/17 23:29 Prochlorperazine Edisylate 5 mg/ Syringe 5 ml @ 5 mls/min Q6H PRN IV 10/22/17 23:30 11/21/17 23:29 Insulin Aspart (novoLOG ASPART) SLIDING SCALE If C... ACHS SC 10/24/17 07:00 11/22/17 06:59 10/25/17 12:53 6 UNITS Ipratropium [place] (Atrovent 0.02% 0.5MG/2.5ML Neb) 0.5 mg Q4R INH 10/24/17 12:00 11/23/17 11:59 10/26/17 06:58 0.5 MG Levalbuterol (Xopenex 1.25MG/ 0.5ML Neb) 1.25 mg Q4R INH 10/24/17 12:00 11/23/17 11:59 10/26/17 06:58 1.25 MG Miscellaneous Information (Consult Glycemic Management Pharmacy) 1 ea UD PRN N/A 10/24/17 08:53 11/23/17 08:52 Doxycycline Hyclate (Vibramycin Cap) 100 mg BID PO 10/26/17 09:00 11/02/17 08:59 10/26/17 09:33 100 MG Insulin Detemir (Levemir Flexpen/ FlexTouch) 10 units BID SQ 10/26/17 09:00 11/25/17 08:59 10/26/17 08:07 10 UNITS
[2017-10-26] MEDS ORDERED: FUROSEMIDE 40 MG TAB PO ONE (10:00)
--- NOTE | 2017-10-26 13:11 | Pharmacy Progress Note ---
Pharmacy Glycemic Short Note 2 Date of Service Oct 26, 2017. OUTPATIENT ANTIDIABETIC REGIMEN: * Levemir 15 units SQ BID * Regular insulin 30 units SQ qAM * Glyburide 5mg PO qAM * HbA1c: 8.8% (10/22/17) ASSESSMENT: 10/26/17: * Patient has been requiring less and less insulin daily, as steroids are no longer on board. * Patient received 40 units of insulin yesterday w/ BSGs 57-160mg/dL past 24 hours. * Levemir dose decreased this morning and Novolog parameters will be loosened. 10/24/17 * Mr Koroma is a 66yo diabetic male, well known to pharmacy glycemic mgmt service from past admissions. * Patient has been hyperglycemic since admission, likely d/t receiving SoluMedrol and Prednisone yesterday. * Patient is now ordered Hydrocortisone 60mg IV q6h, which may contribute to hyperglycemia, but expect to a lesser degree than the other glucocorticoids. * Will order Levemir dose this evening based on HS BSG and adjust regimen as needed. PLAN FOR INPATIENT GLYCEMIC CONTROL: * Hold outpatient oral diabetes medications * Basal insulin * Levemir 10 units SQ BID -- hold if BSG less than 120mg/dL * Bolus insulin * NovoLog per scale ACHS or Q6hrs while NPO * Goal Range: Low 140 mg/dL - High 180 mg/dL * Correction Factor: 30 mg/dL/unit * Nutritional / Prandial insulin per carb ratio of 1 unit per 10 grams CHO consumed PLAN FOR DISCHARGE: * Current A1c (8.8%) reflects sub-optimal glycemic control for a 66yo gentleman. * Might consider adjustment to outpt regimen on discharge. * Recommend close f/u with PCP after discharge to work toward optimizing A1c.
[2017-10-26] MEDS: DIGOXIN 0.25 MG TAB PO SCH (17:46)
--- NOTE | 2017-10-26 18:45 | CARDIOLOGY CONSULTATION ---
DATE OF CONSULTATION: 10/26/2017 REFERRING PHYSICIAN: Nas Buckner MD. INDICATIONS: Chronic congestive heart failure. HISTORY OF PRESENT ILLNESS: The patient is a complex 66-year-old male whose past medical history is notable for mixed etiology cardiomyopathy with past nonischemic cardiomyopathy with severe LV dysfunction, prior BiV pacemaker defibrillator implantation in 2014. He has had also a coronary superimposed on patient's cardiomyopathy, coronary artery disease with prior cardiac catheterization and coronary intervention to a high grade LAD stenosis in April 2014. Underlying medical problems include long-standing diabetes mellitus with complications of neuropathy and vasculopathy with multiple amputations for diabetic neuropathic and vascular disease including finger amputations and left below knee amputation, history of recurrent osteomyelitis. Other issues include hypertension, dyslipidemia, chronic gout, past several hospitalizations in the last several months with altered mental status, syncope multifactorial including sepsis and hypoglycemia etiologies. The patient's underlying pacemaker is a [employer] Viva Quad XT ANESTHESIOLOGIST PHYSICIAN-D reflecting biventricular pacer defibrillator with normal past function and last interrogations most recently performed in June 2017. The patient has not been seen in an outpatient setting from cardiology or primary care physician since the last hospital discharge on 08/26/2017. The patient presents now on per records and by the patient who is only a fair historian noting gradually worsening shortness of breath including increasing cough minimally more productive. He feels weight has slightly increased. Notes no overt signs of leg edema, has been taking medications per patient's description at home. Notes no fevers, chills or productive cough currently. Notes no chest pains or discomfort, has been noting increasing dyspnea with exertion over the past 1-2 weeks. Notes no headache or visual changes, though patient once again a poor historian today. REVIEW OF SYSTEMS: Otherwise negative or unobtainable. ALLERGIES: GEMFIBROZIL. MEDICATIONS: Per med rec cancellation list. The patient only limited to confirming meds that include albuterol, allopurinol 300 mg p.o. daily, aspirin 81 mg per day, atorvastatin 80 mg p.o. daily, digoxin 0.25 mg p.o. daily, furosemide 80 mg q.a.m., glyburide 5 mg daily, insulin, levothyroxine 50 mcg p.o. daily, losartan 25 mg p.o. daily, meclizine 25 t.i.d., Zaroxolyn 2.5 mg weekly, metoprolol succinate 25 mg twice per day, and sertraline 100 mg p.o. daily. PAST SURGICAL HISTORY: Notable for prior multiple amputations of toes, third left and ultimately left lower leg amputation, past defibrillator implantation as described. FAMILY HISTORY: Noncontributory. SOCIAL HISTORY: The patient is a nonsmoker, nondrinker. PHYSICAL EXAMINATION: VITAL SIGNS: Heart rate 71, blood pressure is 150/75. HEENT: Normocephalic and atraumatic. NECK: Reveals minimal jugular venous distention at 30 degrees. LUNGS: Reveal crackles bibasilar. CARDIOVASCULAR: Regular. There is no S3 gallop. ABDOMEN: Soft and mildly distended. EXTREMITIES: Without cyanosis or clubbing. There is left lower leg amputation. Chronic excoriated areas of right leg with poor peripheral perfusion. LABORATORY DATA: Chest x-ray reveals mild increase in interstitial markings diffusely. EKG reveals sinus rhythm with first degree AV block, nonspecific interventricular conduction delay. LABORATORY STUDIES: White cell count 9.1, hemoglobin is 12.3. Sodium is 138, potassium 3.7, chloride is 101, bicarb is 33, BUN is 57, creatinine is 1.48. Influenza studies are negative. Blood cultures are growing one probable contaminant. IMPRESSION: A 66-year-old male with history of mixed left ventricular dysfunction with notably severe left ventricular dysfunction by past evaluations, ejection fraction 15-20%, chronic class 3 congestive heart failure, chronic renal insufficiency, diabetic neuropathy, presents this admission with gradual clinical decline by patient's description, multifactorial etiology with signs and symptoms of mixed respiratory complaints likely viral bronchitis that is superimposed and a chronic systolic heart failure. PLAN: We will give 1 dose of IV furosemide and resume usual prehospital medications. Will likely reduce diuretic dose, pacer defibrillator to be interrogated given lack of biventricular pacing. We will follow the patient in the hospital. [place]
[2017-10-27] VITALS (13 sets, daily range): BP systolic 152–169; BP diastolic 75–85; PULSE 62–78; TEMP 36.4–36.8; O2SAT 92–95
[2017-10-27] MEDS: LEVALBUTEROL 1.25MG/0.5ML NEB INH SCH ×5 (03:45→19:24)
[2017-10-27] MEDS: IPRATROPIUM BROMIDE NEB SOLN 0.02% 2.5 ML VIAL INH SCH ×5 (03:45→19:24)
[2017-10-27] MEDS: HEPARIN SOD 5000 UNIT/0.5 ML CARP SQ SCH ×3 (05:47→21:24)
[2017-10-27] MEDS: LEVOTHYROXINE 50 MCG TAB PO SCH (05:47)
[2017-10-27 07:53] LABS: CALCIUM 9.4 mg/dl (8.5-10.1); CREATININE 1.19 mg/dl (0.60-1.40); POTASSIUM 3.9 mmol/L (3.5-5.1)
[2017-10-27] MEDS: ATORVASTATIN 40 MG TAB PO SCH (07:57)
[2017-10-27] MEDS: ALLOPURINOL 100 MG TAB PO SCH (07:57)
[2017-10-27] MEDS: ISOSORBIDE MONONITRATE 30 MG TABCR PO SCH (07:57)
[2017-10-27] MEDS: DOXYCYCLINE HYCLATE 100 MG CAP PO SCH ×2 (07:58→21:20)
[2017-10-27] MEDS: GUAIFENESIN 600 MG TABCR PO SCH ×2 (07:58→21:20)
[2017-10-27] MEDS: SERTRALINE HCL 100 MG TAB PO SCH (07:59)
[2017-10-27] MEDS: ASPIRIN 81 MG ECTAB PO SCH (07:59)
[2017-10-27] MEDS: METOPROLOL SUCC 25MG EXT REL TAB PO SCH ×2 (07:59→21:20)
[2017-10-27] MEDS: INSULIN DETEMIR FLEXPEN/FLEX TOUCH 100 UNITS/ML 3ML SQ SCH (08:05)
[2017-10-27] MEDS: INSULIN ASPART 100 UNITS/ML 3 ML PEN SC SCH ×4 (08:05→21:24)
[2017-10-27] MEDS ORDERED: LOSARTAN POTASSIUM 25 MG TAB PO ONE (11:36)
--- NOTE | 2017-10-27 11:45 | PROGRESS NOTE ---
DATE: 10/27/2017 CARDIOLOGY CONSULTATION FOLLOWUP NOTE REFERRING PHYSICIAN: Dr. Buckner. The patient seen and examined. Chart, medications, and telemetry have been reviewed. SUBJECTIVE: The patient clinically feels improved since hospitalization. Does continue to manifest ongoing diuresis. Weight down now 5 kilograms with improving renal function. Blood pressures are starting to increase. Notes no chest pains. Notes no fevers, chills. Notes no productive cough. OBJECTIVE: VITAL SIGNS: Heart rate is 70, blood pressure is 161/75, O2 saturations 95% on room air. NECK: Thick. There is no distinct jugular venous distention. LUNGS: Reveal good aeration to the bases. CARDIOVASCULAR: Regular with a grade 1/6 systolic murmur. There is no S3 gallop. ABDOMEN: Soft, nontender. EXTREMITIES: Without cyanosis or clubbing. There is no overt edema. LABORATORY DATA: Today - sodium is 139, potassium is 3.9, chloride is 103, bicarbonate 30, BUN is 44, and creatinine is 1.1. IMPRESSION: A 66-year-old male with underlying history of diffuse severe cardiomyopathy, presents with mixed respiratory distress, decompensated acute on chronic biventricular heart failure, clinically improved after intravenous diuretics and oral diuretics with improving renal function. Question whether antibiotics and corticosteroids aided in symptoms and renal function. PLAN: Will resume prehospital medications including losartan 25 mg per day, giving climbing blood pressure. Resume oral furosemide at 40 mg per day as a reduced dose. Will continue to hold metolazone with question whether patient has been using medications. Defibrillator and pacer will be interrogated. Will follow the patient in the hospital. [facility]OSPITALAgustin
--- NOTE | 2017-10-27 14:00 | Pharmacy Progress Note ---
Pharmacy Glycemic Short Note 2 Date of Service Oct 27, 2017. OUTPATIENT ANTIDIABETIC REGIMEN: * Levemir 15 units SQ BID * Regular insulin 30 units SQ qAM * Glyburide 5mg PO qAM * HbA1c: 8.8% (10/22/17) ASSESSMENT: * Mr Koroma is a 66 y/o M with a PMH of CHF, CAD s/p stent, anemia, h/o DVT, and poorly controlled type 2 diabetes (goal HbA1C around 7.6-8.0% per the Elements of Diabetes Care Scoring Guide) who presents with respiratory failure. Over the past several days the patient has had hyperglycemia and has received IV steroids. Yesterday was the second full day without steroids. patient received a total of 33 units of insulin with 20 units of Lantus. Total daily dose appears low because no coverage for breakfast or lunch. Patient's blood sugars ranged from 64-280 mg/dL. Fasting today was 126 mg/dL. Lunch was 229 mg/ dL but this was taken early at 1043 AM. * For Lantus, will increase to 15 units in the morning and 10 units in the evening starting tomorrow. This was effective during previous hospitalizations. * For Novolog, blood sugars tend to rise throughout the day therefore tighten slightly. Also tighten goal range to 110-140 mg/dL which should trend blood sugars a little lower. PLAN FOR INPATIENT GLYCEMIC CONTROL: * Basal insulin * Levemir 15 units SQ qAM and 10 units qPM * Bolus insulin * NovoLog per scale ACHS or Q6hrs while NPO * Goal Range: Low 110 mg/dL - High 140 mg/dL * Correction Factor: 25 mg/dL/unit * Nutritional / Prandial insulin per carb ratio of 1 unit per 8 grams CHO consumed PLAN FOR DISCHARGE: * Current A1c (8.8%) reflects sub-optimal glycemic control for a 66yo gentleman. * Might consider adjustment to outpt regimen on discharge. * Recommend close f/u with PCP after discharge to work toward optimizing A1c.
[2017-10-27] MEDS: DIGOXIN 0.25 MG TAB PO SCH (17:21)
--- NOTE | 2017-10-27 19:10 | Progress Note ---
Medicine Progress Note Date & Time of Visit: Oct 27, 2017 at 19:04. Subjective patient seen resting in bed, comfortable in good spirits states he continues to feel better denies dyspnea has less cough no chest pain denies other symptoms Objective Last 8 Hrs Date Time Temp Pulse Resp B/P (MAP) Pulse Ox O2 Delivery O2 Flow Rate FiO2 10/27/17 17:21 76 10/27/17 16:00 Room Air 10/27/17 15:40 36.5 69 20 153/85 (107) 93 Room Air 10/27/17 15:32 67 16 94 Room Air 10/27/17 12:00 Room Air 10/27/17 11:20 36.4 70 20 161/75 (103) 95 Room Air 10/27/17 11:19 70 16 95 Room Air Physical Exam: General-oriented 3, speaks in sentences,no effort effort no accessory muscle use Eyes- anicteric Neck- no JVD Lungs-mild wheeze bilateral bases- improving Heart- regular rhythm; no murmur, normal rate Abdomen- normal bowel sounds, soft, nontender Extremities- no pretibial edema, no calf tenderness Neuro- alert, oriented x 3; no gross focal motor or sensory deficits no other neurologic deficits Skin- warm & dry Laboratory Results: Last 24 Hours Test 10/26/17 20:49 10/27/17 06:49 10/27/17 07:02 10/27/17 10:43 Bedside Glucose 244 mg/dl 126 mg/dl 229 mg/dl Sodium Level 139 mmol/L Potassium Level 3.9 mmol/L Chloride Level 103 mmol/L Carbon Dioxide Level 30 mmol/L Anion Gap 7.0 mmol/L Blood Urea Nitrogen 44 mg/dl Creatinine 1.19 mg/dl Est Creatinine Clear Calc Drug Dose 74.5 ml/min Estimated GFR () 73.3 Estimated GFR (Non- 63.3 BUN/Creatinine Ratio 36.9 Random Glucose 122 mg/dl Calcium Level 9.4 mg/dl Test 10/27/17 16:12 Bedside Glucose 233 mg/dl Assessment & Plan ACUTE HYPOXIC RESPIRATORY FAILURE POSSIBLE SECONDARY TO ACUTE BRONCHITIS CXR showed small right pleural effusion and patchy right basilar densities, unchanged. Influenza antigen and pcr negative Procalcitonin elevated No leukocytosis -- wheeze improving, on room air Doxycycline PO BID Day 3 continue Nebs q6h COMPONENT OF ACUTE ON CHRONIC SYSTOLIC CHF, CARDIOMYOPATHY BNP elevated CXR possible CHF 10/24 Lasix 20 mg IV given Resumed Lasix 80 mg p.o. daily as usual diuresing well so far, weight down to 106 crea improving Lasix 40mg po for today AICD interrogation Cardio consulted ACUTE RENAL FAILURE Creatine 1.5 on admission Baseline creatine 1 crea improving reduced Lasix to 40mg po daily monitor CHRONIC SYSTOLIC CHF, CARDIOMYOPATHY, EF 15-20% OF LAST YEAR Management as noted above HTN BP improved Continue monitor BP DIABETES TYPE 2 Pharmacy for glycemic control HYPOTHYROIDISM Continue Levothyroxine Stable Ambulatory Dysfunction has prosthesis in LLE due to BKA PT/OT Fall precaution Will need placement Depression Continue Sertraline Stable Gout Continue Allopurinol Obesity Counseling on smoking cessation DVT ppx heparin subq Code status Full code Disposition transition to SNF when medically stable Current Inpatient Medications: Current Inpatient Medications Medications (Trade) Dose Ordered Sig/Ifeanyi Route Start Time Stop Time Status Last Admin Dose Admin Heparin Sodium (Porcine) (Heparin Sq 5000 Unit/0.5ml) 5,000 unit Q8 SQ 10/23/17 06:00 11/22/17 05:59 10/27/17 12:40 5,000 UNIT Acetaminophen (Tylenol Tab) 650 mg Q4H PRN PO 10/22/17 23:30 11/21/17 23:29 Nitroglycerin (Nitrostat Tab) 0.4 mg UD PRN SL 10/22/17 23:30 11/21/17 23:29 Glucose (Glucose 40% Gel) 15-30 GRAMS 15 GRAMS... UD PRN PO 10/22/17 23:30 11/21/17 23:29 Glucose (Glucose Chew Tab) 4-8 Tablets 4 Tabl... UD PRN PO 10/22/17 23:30 11/21/17 23:29 Dextrose (Dextrose 50% 50ML Syringe) 25-50ML OF 50% DW IV FOR... UD PRN IV 10/22/17 23:30 11/21/17 23:29 Glucagon (Glucagon Inj) 1 mg UD PRN SQ 10/22/17 23:30 11/21/17 23:29 Guaifenesin (Mucinex Contr Rel Tab) 600 mg Q12 PO 10/23/17 09:00 11/22/17 08:59 10/27/17 07:58 600 MG Allopurinol (Zyloprim Tab) 300 mg DAILY PO 10/23/17 09:00 11/22/17 08:59 10/27/17 07:57 300 MG Aspirin (Ecotrin Tab) 81 mg DAILY PO 10/23/17 09:00 11/22/17 08:59 10/27/17 07:59 81 MG Atorvastatin Calcium (Lipitor Tab) 80 mg DAILY PO 10/23/17 09:00 11/22/17 08:59 10/27/17 07:57 80 MG Digoxin (Lanoxin Tab) 0.25 mg DAILY@1600 PO 10/23/17 16:00 11/22/17 15:59 10/27/17 17:21 0.25 MG Isosorbide Mononitrate (Imdur Ext Rel Tab) 15 mg QAM PO 10/23/17 09:00 11/22/17 08:59 10/27/17 07:57 15 MG Levothyroxine Sodium (Synthroid Tab) 50 mcg DAILYBB PO 10/24/17 06:00 11/23/17 06:59 10/27/17 05:47 50 MCG Metoprolol Succinate (Toprol Xl Tab) 25 mg BID PO 10/23/17 09:00 11/22/17 08:59 10/27/17 07:59 25 MG Sertraline HCl (Zoloft Tab) 100 mg DAILY PO 10/23/17 09:00 11/22/17 08:59 10/27/17 07:59 100 MG Tramadol HCl (Ultram Tab) 25 mg Q6H PRN PO 10/22/17 23:30 11/21/17 23:29 Prochlorperazine Edisylate 5 mg/ Syringe 5 ml @ 5 mls/min Q6H PRN IV 10/22/17 23:30 11/21/17 23:29 Insulin Aspart (novoLOG ASPART) SLIDING SCALE If C... ACHS SC 10/24/17 07:00 11/22/17 06:59 10/27/17 17:30 11 UNITS Ipratropium [place] (Atrovent 0.02% 0.5MG/2.5ML Neb) 0.5 mg Q4R INH 10/24/17 12:00 11/23/17 11:59 10/27/17 15:32 0.5 MG Levalbuterol (Xopenex 1.25MG/ 0.5ML Neb) 1.25 mg Q4R INH 10/24/17 12:00 11/23/17 11:59 10/27/17 15:32 1.25 MG Miscellaneous Information (Consult Glycemic Management Pharmacy) 1 ea UD PRN N/A 10/24/17 08:53 11/23/17 08:52 Doxycycline Hyclate (Vibramycin Cap) 100 mg BID PO 10/26/17 09:00 11/02/17 08:59 10/27/17 07:58 100 MG Insulin Detemir (Levemir Flexpen/ FlexTouch) 10 units QPM SC 10/27/17 21:00 11/26/17 20:59 Insulin Detemir (Levemir Flexpen/ FlexTouch) 15 units QAM SC 10/28/17 09:00 11/27/17 08:59 Losartan Potassium (coZAAR TAB) 25 mg QAM PO 10/28/17 09:00 11/27/17 08:59 Furosemide (Lasix Tab) 40 mg QAM PO 10/28/17 09:00 11/27/17 08:59
[2017-10-27] MEDS ORDERED: INSULIN DETEMIR FLEXPEN/FLEX TOUCH 100 UNITS/ML 3ML SC SCH (21:00)
[2017-10-28] VITALS (10 sets, daily range): BP systolic 142–174; BP diastolic 57–83; PULSE 67–83; TEMP 36.4–37.1; O2SAT 92–98
[2017-10-28] MEDS: LEVALBUTEROL 1.25MG/0.5ML NEB INH SCH ×2 (01:39→07:07)
[2017-10-28] MEDS: IPRATROPIUM BROMIDE NEB SOLN 0.02% 2.5 ML VIAL INH SCH ×2 (01:39→07:06)
[2017-10-28] MEDS: LEVOTHYROXINE 50 MCG TAB PO SCH (06:08)
[2017-10-28] MEDS: HEPARIN SOD 5000 UNIT/0.5 ML CARP SQ SCH ×3 (06:11→22:52)
[2017-10-28 06:25] LABS: CALCIUM 9.3 mg/dl (8.5-10.1); CREATININE 1.16 mg/dl (0.60-1.40); POTASSIUM 3.8 mmol/L (3.5-5.1)
[2017-10-28] MEDS: INSULIN DETEMIR FLEXPEN/FLEX TOUCH 100 UNITS/ML 3ML SC SCH ×2 (08:30→21:09)
[2017-10-28] MEDS: INSULIN ASPART 100 UNITS/ML 3 ML PEN SC SCH ×4 (08:30→21:00)
[2017-10-28] MEDS: ASPIRIN 81 MG ECTAB PO SCH (08:33)
[2017-10-28] MEDS: LOSARTAN POTASSIUM 25 MG TAB PO SCH (08:33)
[2017-10-28] MEDS: ISOSORBIDE MONONITRATE 30 MG TABCR PO SCH (08:33)
[2017-10-28] MEDS: METOPROLOL SUCC 25MG EXT REL TAB PO SCH ×2 (08:33→20:24)
[2017-10-28] MEDS: SERTRALINE HCL 100 MG TAB PO SCH (08:33)
[2017-10-28] MEDS: DOXYCYCLINE HYCLATE 100 MG CAP PO SCH ×2 (08:33→20:23)
[2017-10-28] MEDS: ATORVASTATIN 40 MG TAB PO SCH (08:34)
[2017-10-28] MEDS: FUROSEMIDE 40 MG TAB PO SCH (08:34)
[2017-10-28] MEDS: GUAIFENESIN 600 MG TABCR PO SCH ×2 (08:34→20:24)
[2017-10-28] MEDS: ALLOPURINOL 100 MG TAB PO SCH (08:34)
[2017-10-28] MEDS ORDERED: INSULIN DETEMIR FLEXPEN/FLEX TOUCH 100 UNITS/ML 3ML SC SCH ×2 (09:00)
--- NOTE | 2017-10-28 11:29 | Pharmacy Progress Note ---
Pharmacy Glycemic Short Note 2 Date of Service Oct 28, 2017. OUTPATIENT ANTIDIABETIC REGIMEN: * Levemir 15 units SQ BID * Regular insulin 30 units SQ qAM * Glyburide 5mg PO qAM * HbA1c: 8.8% (10/22/17) ASSESSMENT: * Yesterday Mr Koroma's blood sugars ranged [phone] mg/dL with a fasting this morning of 201 mg/dL. The patient received 50 units yesterday with 20 units of basal... It appears that this admission is similar to the 06/2017 admission where patient received around 70 units a day with at least 30-40 units of basal. * For Lantus, established a scale for today... this scale will include doses 10- 20 units. It will allow for higher doses of 30-40 units of basal insulin per day which is what the patient requires when requiring more insulin. Nervous to go above 20 units of Levemir as this is higher than the patient's home dose already. * For Novolog, tightened parameters in the morning. However, the patient at lunch was 333 mg/dL. As per previous admissions, patient does require tighter control of Novolog upwards of correction factor 10 and carbohydrate ratio of 4. Tightened slightly to correction factor of 15 and carbohydrate ratio of 5 plus gave insulin bolus of 5 units. * Mr Koroma is a 66 y/o M with a PMH of CHF, CAD s/p stent, anemia, h/o DVT, and poorly controlled type 2 diabetes (goal HbA1C around 7.6-8.0% per the Elements of Diabetes Care Scoring Guide) who presents with respiratory failure. Over the past several days the patient has had hyperglycemia and has received IV steroids. Yesterday was the second full day without steroids. patient received a total of 33 units of insulin with 20 units of Lantus. Total daily dose appears low because no coverage for breakfast or lunch. Patient's blood sugars ranged from 64-280 mg/dL. Fasting today was 126 mg/dL. Lunch was 229 mg/ dL but this was taken early at 1043 AM. * For Lantus, will increase to 15 units in the morning and 10 units in the evening starting tomorrow. This was effective during previous hospitalizations. * For Novolog, blood sugars tend to rise throughout the day therefore tighten slightly. Also tighten goal range to 110-140 mg/dL which should trend blood sugars a little lower. PLAN FOR INPATIENT GLYCEMIC CONTROL: * Basal insulin * Levemir 10-20 units twice daily (10 units if blood sugar less than 100 mg/dL , 20 units if blood sugar over 180 mg/dL) * Bolus insulin * NovoLog per scale ACHS or Q6hrs while NPO * Goal Range: Low 110 mg/dL - High 140 mg/dL * Correction Factor: 15 mg/dL/unit * Nutritional / Prandial insulin per carb ratio of 1 unit per 5 grams CHO consumed PLAN FOR DISCHARGE: * Current A1c (8.8%) reflects sub-optimal glycemic control for a 66yo gentleman. * Might consider adjustment to outpt regimen on discharge. * Recommend close f/u with PCP after discharge to work toward optimizing A1c.
[2017-10-28] MEDS ORDERED: INSULIN HUMAN REGULAR IV BOLUS 5 UNIT in SYRINGE 0 ML IV SCH (11:45)
--- NOTE | 2017-10-28 13:58 | Progress Note ---
Medicine Progress Note Date & Time of Visit: Oct 28, 2017 at 13:58. Subjective resting in bed, comfortable states he feels fine overall denies dyspnea, cough, chest pain denies other symptoms Objective Last 8 Hrs Date Time Temp Pulse Resp B/P (MAP) Pulse Ox O2 Delivery O2 Flow Rate FiO2 10/28/17 12:00 Room Air 10/28/17 11:31 36.5 67 20 155/73 (100) 98 Room Air 10/28/17 08:00 37.1 78 20 174/81 (112) 95 Room Air 10/28/17 08:00 Room Air 10/28/17 07:09 79 18 95 Room Air Physical Exam: General-oriented 3, speaks in sentences,no effort effort no accessory muscle use Eyes- anicteric Neck- no JVD Lungs-clear breath sounds bilaterally, no rales/wheezes Heart- regular rhythm; no murmur, normal rate Abdomen- normal bowel sounds, soft, nontender Extremities- no pretibial edema, no calf tenderness Neuro- alert, oriented x 3; no gross focal motor or sensory deficits no other neurologic deficits Skin- warm & dry Laboratory Results: Last 24 Hours Test 10/27/17 16:12 10/27/17 20:55 10/28/17 05:29 10/28/17 06:22 Bedside Glucose 233 mg/dl 250 mg/dl 201 mg/dl Sodium Level 137 mmol/L Potassium Level 3.8 mmol/L Chloride Level 102 mmol/L Carbon Dioxide Level 29 mmol/L Anion Gap 6.0 mmol/L Blood Urea Nitrogen 37 mg/dl Creatinine 1.16 mg/dl Est Creatinine Clear Calc Drug Dose 76.4 ml/min Estimated GFR () 75.6 Estimated GFR (Non- 65.3 BUN/Creatinine Ratio 31.8 Random Glucose 213 mg/dl Calcium Level 9.3 mg/dl Test 10/28/17 11:16 Bedside Glucose 342 mg/dl Assessment & Plan ACUTE HYPOXIC RESPIRATORY FAILURE POSSIBLE SECONDARY TO ACUTE BRONCHITIS CXR showed small right pleural effusion and patchy right basilar densities, unchanged. Influenza antigen and pcr negative Procalcitonin elevated No leukocytosis -- wheeze resolved, now on room air Doxycycline PO BID Day 4 continue Nebs q6h COMPONENT OF ACUTE ON CHRONIC SYSTOLIC CHF, CARDIOMYOPATHY BNP elevated CXR possible CHF 10/24 Lasix 20 mg IV given Resumed Lasix 80 mg p.o. daily as usual diuresing well so far, weight down to 106 crea improving Lasix 40mg po AICD interrogation Cardio consulted ACUTE RENAL FAILURE Creatine 1.5 on admission Baseline creatine 1 crea improving reduced Lasix to 40mg po daily monitor CHRONIC SYSTOLIC CHF, CARDIOMYOPATHY, EF 15-20% OF LAST YEAR Management as noted above HTN BP improved Continue monitor BP DIABETES TYPE 2 Pharmacy for glycemic control HYPOTHYROIDISM Continue Levothyroxine Stable Ambulatory Dysfunction has prosthesis in LLE due to BKA PT/OT Fall precaution Will need placement Depression Continue Sertraline Stable Gout Continue Allopurinol Obesity Counseling on smoking cessation DVT ppx heparin subq Code status Full code Disposition transition to SNF when medically stable Current Inpatient Medications: Current Inpatient Medications Medications (Trade) Dose Ordered Sig/Ifeanyi Route Start Time Stop Time Status Last Admin Dose Admin Heparin Sodium (Porcine) (Heparin Sq 5000 Unit/0.5ml) 5,000 unit Q8 SQ 10/23/17 06:00 11/22/17 05:59 10/28/17 13:15 5,000 UNIT Acetaminophen (Tylenol Tab) 650 mg Q4H PRN PO 10/22/17 23:30 11/21/17 23:29 Nitroglycerin (Nitrostat Tab) 0.4 mg UD PRN SL 10/22/17 23:30 11/21/17 23:29 Glucose (Glucose 40% Gel) 15-30 GRAMS 15 GRAMS... UD PRN PO 10/22/17 23:30 11/21/17 23:29 Glucose (Glucose Chew Tab) 4-8 Tablets 4 Tabl... UD PRN PO 10/22/17 23:30 11/21/17 23:29 Dextrose (Dextrose 50% 50ML Syringe) 25-50ML OF 50% DW IV FOR... UD PRN IV 10/22/17 23:30 11/21/17 23:29 Glucagon (Glucagon Inj) 1 mg UD PRN SQ 10/22/17 23:30 11/21/17 23:29 Guaifenesin (Mucinex Contr Rel Tab) 600 mg Q12 PO 10/23/17 09:00 11/22/17 08:59 10/28/17 08:34 600 MG Allopurinol (Zyloprim Tab) 300 mg DAILY PO 10/23/17 09:00 11/22/17 08:59 10/28/17 08:34 300 MG Aspirin (Ecotrin Tab) 81 mg DAILY PO 10/23/17 09:00 11/22/17 08:59 10/28/17 08:33 81 MG Atorvastatin Calcium (Lipitor Tab) 80 mg DAILY PO 10/23/17 09:00 11/22/17 08:59 10/28/17 08:34 80 MG Digoxin (Lanoxin Tab) 0.25 mg DAILY@1600 PO 10/23/17 16:00 11/22/17 15:59 10/27/17 17:21 0.25 MG Isosorbide Mononitrate (Imdur Ext Rel Tab) 15 mg QAM PO 10/23/17 09:00 11/22/17 08:59 10/28/17 08:33 15 MG Levothyroxine Sodium (Synthroid Tab) 50 mcg DAILYBB PO 10/24/17 06:00 11/23/17 06:59 10/28/17 06:08 50 MCG Metoprolol Succinate (Toprol Xl Tab) 25 mg BID PO 10/23/17 09:00 11/22/17 08:59 10/28/17 08:33 25 MG Sertraline HCl (Zoloft Tab) 100 mg DAILY PO 10/23/17 09:00 11/22/17 08:59 10/28/17 08:33 100 MG Tramadol HCl (Ultram Tab) 25 mg Q6H PRN PO 10/22/17 23:30 11/21/17 23:29 Prochlorperazine Edisylate 5 mg/ Syringe 5 ml @ 5 mls/min Q6H PRN IV 10/22/17 23:30 11/21/17 23:29 Insulin Aspart (novoLOG ASPART) SLIDING SCALE If C... ACHS SC 10/24/17 07:00 11/22/17 06:59 10/28/17 12:00 18 UNITS Miscellaneous Information (Consult Glycemic Management Pharmacy) 1 ea UD PRN N/A 10/24/17 08:53 11/23/17 08:52 Doxycycline Hyclate (Vibramycin Cap) 100 mg BID PO 10/26/17 09:00 11/02/17 08:59 10/28/17 08:33 100 MG Losartan Potassium (coZAAR TAB) 25 mg QAM PO 10/28/17 09:00 11/27/17 08:59 10/28/17 08:33 25 MG Furosemide (Lasix Tab) 40 mg QAM PO 10/28/17 09:00 11/27/17 08:59 10/28/17 08:34 40 MG Insulin Detemir (Levemir Flexpen/ FlexTouch) SEE PROTOCOL TEXT BID SC 10/28/17 09:00 11/27/17 08:59 10/28/17 08:30 20 UNITS Ipratropium [place] (Atrovent 0.02% 0.5MG/2.5ML Neb) 0.5 mg Q4H PRN INH 10/28/17 17:00 11/26/17 20:59 UNV Levalbuterol (Xopenex 1.25MG/ 0.5ML Neb) 1.25 mg Q4H PRN INH 10/28/17 17:00 11/26/17 20:59 UNV
[2017-10-28] MEDS: DIGOXIN 0.25 MG TAB PO SCH (15:59)
--- NOTE | 2017-10-28 16:52 | Cardiology Follow-Up ---
Subjective General Date of Service: Oct 28, 2017. Chief Complaint: Follow-up shortness of breath Pt evaluation today including: conversation w/ patient, physical exam History of Present Illness The patient is a 66 year old male seen in follow-up today with initial cardiology consultation having been performed by Dr. Perry. Patient states he is feeling better. He is starting his evening meal at present. I had previously seen him during admission in June 2017 when he presented with TIA symptoms. His mental status is certainly better than it had been when I had seen him during admission. Allergies Coded Allergies: Gemfibrozil (Verified Allergy, Unknown, 06/19/17) Social History Smoking Status: Never Smoker Hx Tobacco Use In Past Year?: No Hx Alcohol Use - Type And Amou: No Hx Substance Use - Type And Am: No Problem List Medical Problems: (1) Acute renal injury Status: Acute (2) Altered mental status Status: Acute (3) C. difficile diarrhea Status: Acute (4) Cellulitis of right hand Status: Acute (5) CHF exacerbation Status: Acute (6) COPD exacerbation Status: Acute (7) Dehydration Status: Acute (8) Diabetes Status: Acute (9) Hemothorax on right Status: Acute (10) Hyperglycemia Status: Acute (11) Hypoglycemia Status: Acute (12) Hypoglycemia Status: Acute (13) Hypoglycemia Status: Acute (14) Hypotension Status: Acute (15) Hypothermia Status: Acute (16) Hypothermia Status: Acute (17) Infection of finger Status: Acute (18) Multiple rib fractures Status: Acute (19) Necrotic wound of right hand Status: Acute (20) Pleural effusion, right Status: Acute (21) Right-sided chest pain Status: Acute (22) Sepsis Status: Acute (23) Septic shock Status: Acute (24) Severe sepsis Status: Acute (25) Stroke Status: Acute Physical Exam Vital Signs Last Vital Signs Documentation Date Time Temp Pulse Resp B/P (MAP) Pulse Ox O2 Delivery O2 Flow Rate FiO2 10/28/17 16:00 Room Air 10/28/17 15:59 76 10/28/17 14:59 18 94 10/28/17 11:31 36.5 155/73 (100) 10/28/17 00:01 10/26/17 20:00 93 Physical Exam Constitutional: Level of Distress: chronically ill ENMT: hearing grossly normal Neck: supple, trachea midline Lungs: Auscultation: pertinent finding (Mildly decreased breath sounds bilaterally at the bases) Cardiovascular: Heart Auscultation: RRR, no murmurs Extremities: pertinent finding (Left below the knee amputation, loss of multiple finger digits) Assessment and Plan Assessment and Plan Impression: 66-year-old male Acute decompensation biventricular systolic heart failure History of biventricular pacemaker AICD Plan: Continue current medications including furosemide 40 mg daily. Patient was transitioned to oral diuretics yesterday with noted urine output of over 5 L the day before, and 2.2 L yesterday. The patient does not recall having missed any recent medication doses so is little bit difficult to determine what the cause of his decompensation was. His [employer]onic biventricular pacemaker AICD was interrogated yesterday. He is left ventricular pacing 94% of the time. Appropriate generator longevity was noted and estimated to be 6.5 years. There were 8 nonsustained ventricular tachycardia episodes, this is a chronic issue for him and the patient did not require any device treatments. Overall, clinical improvement seems to have occurred. Continue current medications including subcutaneous heparin for DVT prophylaxis . Laboratory Results Last 24 Hours Test 10/27/17 20:55 10/28/17 05:29 10/28/17 06:22 10/28/17 11:16 Bedside Glucose 250 mg/dl 201 mg/dl 342 mg/dl Sodium Level 137 mmol/L Potassium Level 3.8 mmol/L Chloride Level 102 mmol/L Carbon Dioxide Level 29 mmol/L Anion Gap 6.0 mmol/L Blood Urea Nitrogen 37 mg/dl Creatinine 1.16 mg/dl Est Creatinine Clear Calc Drug Dose 76.4 ml/min Estimated GFR () 75.6 Estimated GFR (Non- 65.3 BUN/Creatinine Ratio 31.8 Random Glucose 213 mg/dl Calcium Level 9.3 mg/dl Test 10/28/17 16:22 Bedside Glucose 132 mg/dl
[2017-10-28] MEDS ORDERED: LEVALBUTEROL 1.25MG/0.5ML NEB INH PRN (17:00)
[2017-10-28] MEDS ORDERED: IPRATROPIUM BROMIDE NEB SOLN 0.02% 2.5 ML VIAL INH PRN (17:00)
[2017-10-29] VITALS (10 sets, daily range): BP systolic 146–175; BP diastolic 72–93; PULSE 63–80; TEMP 36.4–36.7; O2SAT 94–98
[2017-10-29] MEDS: LEVOTHYROXINE 50 MCG TAB PO SCH (05:37)
[2017-10-29] MEDS: HEPARIN SOD 5000 UNIT/0.5 ML CARP SQ SCH ×3 (05:40→21:22)
[2017-10-29 05:42] LABS: BASO % 0.3 %; BASO ABS # 0.03 K/uL (0-0.2); EOS % 3.4 %; HEMATOCRIT 38.5 % (42-52); IG# 0.33 K/uL (0.00-0.02); LYMPH % 21.1 %; LYMPH ABS # 1.84 K/uL (1.2-3.4); MEAN CELL VOLUME 79.5 fL (80-100); MEAN CORPUSCULAR HEMOGLOBIN 26.9 pg (25-34); MEAN CORPUSCULAR HGB CONC 33.8 g/dl (32-36); MEAN PLATELET VOLUME 9.2 fL (7.4-10.4); MONO % 6.8 %; MONO ABS # 0.59 K/uL (0.11-0.59); NEUT % 64.6 %; NEUT ABS # 5.65 K/uL (1.4-6.5); PLATELET COUNT 353 K/uL (130-400); RED CELL DISTRIBUTION WIDTH CV 16.1 % (11.5-14.5); RED CELL DISTRIBUTION WIDTH SD 46.5 fL (36.4-46.3); WHITE BLOOD COUNT 8.74 K/uL (4.8-10.8)
[2017-10-29 06:09] LABS: CALCIUM 9.3 mg/dl (8.5-10.1); CREATININE 1.09 mg/dl (0.60-1.40); POTASSIUM 3.9 mmol/L (3.5-5.1)
[2017-10-29] MEDS: DOXYCYCLINE HYCLATE 100 MG CAP PO SCH ×2 (08:12→21:08)
[2017-10-29] MEDS: ISOSORBIDE MONONITRATE 30 MG TABCR PO SCH (08:12)
[2017-10-29] MEDS: ATORVASTATIN 40 MG TAB PO SCH (08:13)
[2017-10-29] MEDS: ALLOPURINOL 100 MG TAB PO SCH (08:13)
[2017-10-29] MEDS: LOSARTAN POTASSIUM 25 MG TAB PO SCH (08:13)
[2017-10-29] MEDS: ASPIRIN 81 MG ECTAB PO SCH (08:14)
[2017-10-29] MEDS: SERTRALINE HCL 100 MG TAB PO SCH (08:14)
[2017-10-29] MEDS: METOPROLOL SUCC 25MG EXT REL TAB PO SCH ×2 (08:14→21:09)
[2017-10-29] MEDS: FUROSEMIDE 40 MG TAB PO SCH (08:15)
[2017-10-29] MEDS: GUAIFENESIN 600 MG TABCR PO SCH ×2 (08:15→21:11)
[2017-10-29] MEDS: INSULIN DETEMIR FLEXPEN/FLEX TOUCH 100 UNITS/ML 3ML SC SCH ×2 (09:02→21:17)
[2017-10-29] MEDS: INSULIN ASPART 100 UNITS/ML 3 ML PEN SC SCH ×4 (09:06→21:18)
--- NOTE | 2017-10-29 13:56 | Cardiology Progress Note ---
Cardiology Progress Note Date of Service Oct 29, 2017. Cardiology Progress Note Patient resting comfortably. BP is above goal. Newby catheter in place. Continues to have good urine output having been transitioned to oral furosemide. Last Vital Signs Documentation Date Time Temp Pulse Resp B/P (MAP) Pulse Ox O2 Delivery O2 Flow Rate FiO2 10/29/17 08:00 36.7 73 20 169/80 (109) 94 10/29/17 04:00 Room Air 10/28/17 00:01 10/26/17 20:00 93 Impression: 66-year-old male Acute decompensation biventricular systolic heart failure History of biventricular pacemaker AICD Plan: Renal function improved compared to admission. Increase furosemide to home dose of 80 mg PO daily. Also takes metolazone at home, will hold off on this for now. SQ heparin for DVT prophylaxis.
[2017-10-29] MEDS: DIGOXIN 0.25 MG TAB PO SCH (17:06)
[2017-10-30] VITALS (10 sets, daily range): BP systolic 134–168; BP diastolic 67–88; PULSE 60–90; TEMP 36.4–36.8; O2SAT 93–98
[2017-10-30] MEDS: LEVOTHYROXINE 50 MCG TAB PO SCH (05:37)
[2017-10-30] MEDS: HEPARIN SOD 5000 UNIT/0.5 ML CARP SQ SCH ×3 (05:38→20:57)
--- NOTE | 2017-10-30 05:46 | Progress Note ---
Medicine Progress Note Date & Time of Visit: Oct 30, 2017 at 05:44. Subjective delayed entry date of service 10/29/17 states he feels fine overall no shortness of breath, chest pain no other symptoms Objective Last 8 Hrs Date Time Temp Pulse Resp B/P (MAP) Pulse Ox O2 Delivery O2 Flow Rate FiO2 10/30/17 04:00 93 Room Air 10/30/17 03:05 36.6 68 20 156/82 (106) 93 Room Air 10/30/17 00:01 98 Room Air 10/29/17 23:54 36.5 63 18 165/84 (111) 98 Room Air Physical Exam: General-oriented 3, speaks in sentences,no effort effort no accessory muscle use Neck- no JVD Lungs-clear BS bilaterally, no rales/wheezes Heart- regular rhythm; no murmur, normal rate Abdomen- normal bowel sounds, soft, nontender Extremities- no pretibial edema, no calf tenderness Neuro- alert, oriented x 3; no gross focal motor or sensory deficits no other neurologic deficits Skin- warm & dry Laboratory Results: Last 24 Hours Test 10/29/17 06:39 10/29/17 11:13 10/29/17 16:38 10/29/17 21:15 Bedside Glucose 133 mg/dl 176 mg/dl 254 mg/dl 223 mg/dl Assessment & Plan ACUTE HYPOXIC RESPIRATORY FAILURE POSSIBLE SECONDARY TO ACUTE BRONCHITIS CXR showed small right pleural effusion and patchy right basilar densities, unchanged. Influenza antigen and pcr negative Procalcitonin elevated No leukocytosis -- wheeze resolved, now on room air Doxycycline PO BID Day 5 continue Nebs q6h COMPONENT OF ACUTE ON CHRONIC SYSTOLIC CHF, CARDIOMYOPATHY BNP elevated CXR possible CHF 10/24 Lasix 20 mg IV given Resumed Lasix 80 mg p.o. daily as usual diuresing well so far, weight down to 106 crea improving Lasix 40mg po AICD interrogation Cardio consulted ACUTE RENAL FAILURE Creatine 1.5 on admission Baseline creatine 1 crea improving resumed usual Lasix 80mg daily monitor CHRONIC SYSTOLIC CHF, CARDIOMYOPATHY, EF 15-20% OF LAST YEAR Management as noted above HTN BP improved Continue monitor BP DIABETES TYPE 2 Pharmacy for glycemic control HYPOTHYROIDISM Continue Levothyroxine Stable Ambulatory Dysfunction has prosthesis in LLE due to BKA PT/OT Fall precaution Will need placement Depression Continue Sertraline Stable Gout Continue Allopurinol Obesity Counseling on smoking cessation DVT ppx heparin subq Code status Full code Disposition transition to SNF when medically stable Current Inpatient Medications: Current Inpatient Medications Medications (Trade) Dose Ordered Sig/Ifeanyi Route Start Time Stop Time Status Last Admin Dose Admin Heparin Sodium (Porcine) (Heparin Sq 5000 Unit/0.5ml) 5,000 unit Q8 SQ 10/23/17 06:00 11/22/17 05:59 10/30/17 05:38 5,000 UNIT Acetaminophen (Tylenol Tab) 650 mg Q4H PRN PO 10/22/17 23:30 11/21/17 23:29 Nitroglycerin (Nitrostat Tab) 0.4 mg UD PRN SL 10/22/17 23:30 11/21/17 23:29 Glucose (Glucose 40% Gel) 15-30 GRAMS 15 GRAMS... UD PRN PO 10/22/17 23:30 11/21/17 23:29 Glucose (Glucose Chew Tab) 4-8 Tablets 4 Tabl... UD PRN PO 10/22/17 23:30 11/21/17 23:29 Dextrose (Dextrose 50% 50ML Syringe) 25-50ML OF 50% DW IV FOR... UD PRN IV 10/22/17 23:30 11/21/17 23:29 Glucagon (Glucagon Inj) 1 mg UD PRN SQ 10/22/17 23:30 11/21/17 23:29 Guaifenesin (Mucinex Contr Rel Tab) 600 mg Q12 PO 10/23/17 09:00 11/22/17 08:59 10/29/17 21:11 600 MG Allopurinol (Zyloprim Tab) 300 mg DAILY PO 10/23/17 09:00 11/22/17 08:59 10/29/17 08:13 300 MG Aspirin (Ecotrin Tab) 81 mg DAILY PO 10/23/17 09:00 11/22/17 08:59 10/29/17 08:14 81 MG Atorvastatin Calcium (Lipitor Tab) 80 mg DAILY PO 10/23/17 09:00 11/22/17 08:59 10/29/17 08:13 80 MG Digoxin (Lanoxin Tab) 0.25 mg DAILY@1600 PO 10/23/17 16:00 11/22/17 15:59 10/29/17 17:06 0.25 MG Isosorbide Mononitrate (Imdur Ext Rel Tab) 15 mg QAM PO 10/23/17 09:00 11/22/17 08:59 10/29/17 08:12 15 MG Levothyroxine Sodium (Synthroid Tab) 50 mcg DAILYBB PO 10/24/17 06:00 11/23/17 06:59 10/30/17 05:37 50 MCG Metoprolol Succinate (Toprol Xl Tab) 25 mg BID PO 10/23/17 09:00 11/22/17 08:59 10/29/17 21:09 25 MG Sertraline HCl (Zoloft Tab) 100 mg DAILY PO 10/23/17 09:00 11/22/17 08:59 10/29/17 08:14 100 MG Tramadol HCl (Ultram Tab) 25 mg Q6H PRN PO 10/22/17 23:30 11/21/17 23:29 Prochlorperazine Edisylate 5 mg/ Syringe 5 ml @ 5 mls/min Q6H PRN IV 10/22/17 23:30 11/21/17 23:29 Insulin Aspart (novoLOG ASPART) SLIDING SCALE If C... ACHS SC 10/24/17 07:00 11/22/17 06:59 10/29/17 21:18 5 UNITS Miscellaneous Information (Consult Glycemic Management Pharmacy) 1 ea UD PRN N/A 10/24/17 08:53 11/23/17 08:52 Doxycycline Hyclate (Vibramycin Cap) 100 mg BID PO 10/26/17 09:00 11/02/17 08:59 10/29/17 21:08 100 MG Losartan Potassium (coZAAR TAB) 25 mg QAM PO 10/28/17 09:00 11/27/17 08:59 10/29/17 08:13 25 MG Insulin Detemir (Levemir Flexpen/ FlexTouch) SEE PROTOCOL TEXT BID SC 10/28/17 09:00 11/27/17 08:59 10/29/17 21:17 20 UNITS Ipratropium [place] (Atrovent 0.02% 0.5MG/2.5ML Neb) 0.5 mg Q4H PRN INH 10/28/17 17:00 11/26/17 20:59 10/28/17 14:58 0.5 MG Levalbuterol (Xopenex 1.25MG/ 0.5ML Neb) 1.25 mg Q4H PRN INH 10/28/17 17:00 11/26/17 20:59 10/28/17 14:59 1.25 MG Furosemide (Lasix Tab) 80 mg QAM PO 10/30/17 09:00 11/29/17 08:59
[2017-10-30] MEDS: GUAIFENESIN 600 MG TABCR PO SCH ×2 (09:27→20:21)
[2017-10-30] MEDS: SERTRALINE HCL 100 MG TAB PO SCH (09:27)
[2017-10-30] MEDS: ISOSORBIDE MONONITRATE 30 MG TABCR PO SCH (09:27)
[2017-10-30] MEDS: DOXYCYCLINE HYCLATE 100 MG CAP PO SCH ×2 (09:27→20:20)
[2017-10-30] MEDS: ALLOPURINOL 100 MG TAB PO SCH (09:28)
[2017-10-30] MEDS: METOPROLOL SUCC 25MG EXT REL TAB PO SCH ×2 (09:28→20:21)
[2017-10-30] MEDS: ATORVASTATIN 40 MG TAB PO SCH (09:28)
[2017-10-30] MEDS: LOSARTAN POTASSIUM 25 MG TAB PO SCH (09:28)
[2017-10-30] MEDS: ASPIRIN 81 MG ECTAB PO SCH (09:29)
[2017-10-30] MEDS: INSULIN ASPART 100 UNITS/ML 3 ML PEN SC SCH ×4 (09:31→20:55)
[2017-10-30] MEDS: INSULIN DETEMIR FLEXPEN/FLEX TOUCH 100 UNITS/ML 3ML SC SCH ×2 (09:31→20:57)
--- NOTE | 2017-10-30 10:37 | Cardiology Follow-Up ---
Subjective General Date of Service: Oct 30, 2017. Chief Complaint: Follow-up shortness of breath Pt evaluation today including: conversation w/ patient, physical exam, chart review, lab review, review of studies, review of inpatient medication list History of Present Illness Patient feeling well this AM. Offers no acute complaints. Denies chest pain or SOB. Ongoing cough, unchanged. No sputum production. No fever or chills. No orthopnea. No edema. Allergies Coded Allergies: Gemfibrozil (Verified Allergy, Unknown, 06/19/17) Social History Smoking Status: Never Smoker Hx Tobacco Use In Past Year?: No Hx Alcohol Use - Type And Amou: No Hx Substance Use - Type And Am: No Problem List Medical Problems: (1) Acute renal injury Status: Acute (2) Altered mental status Status: Acute (3) C. difficile diarrhea Status: Acute (4) Cellulitis of right hand Status: Acute (5) CHF exacerbation Status: Acute (6) COPD exacerbation Status: Acute (7) Dehydration Status: Acute (8) Diabetes Status: Acute (9) Hemothorax on right Status: Acute (10) Hyperglycemia Status: Acute (11) Hypoglycemia Status: Acute (12) Hypoglycemia Status: Acute (13) Hypoglycemia Status: Acute (14) Hypotension Status: Acute (15) Hypothermia Status: Acute (16) Hypothermia Status: Acute (17) Infection of finger Status: Acute (18) Multiple rib fractures Status: Acute (19) Necrotic wound of right hand Status: Acute (20) Pleural effusion, right Status: Acute (21) Right-sided chest pain Status: Acute (22) Sepsis Status: Acute (23) Septic shock Status: Acute (24) Severe sepsis Status: Acute (25) Stroke Status: Acute Review of Systems Respiratory: + cough, No sputum, No wheezing, No shortness of breath, No dyspnea at rest, No hemoptysis Cardiac: No chest pain, No orthopnea, No PND, No edema, No palpitations Physical Exam Vital Signs Last Vital Signs Documentation Date Time Temp Pulse Resp B/P (MAP) Pulse Ox O2 Delivery O2 Flow Rate FiO2 10/30/17 07:45 36.7 68 20 161/88 (112) 96 Room Air 10/28/17 00:01 10/26/17 20:00 93 Physical Exam Constitutional: Level of Distress: chronically ill ENMT: hearing grossly normal Neck: supple, trachea midline Lungs: Auscultation: expiratory wheezing (scattered), pertinent finding (Mildly decreased breath sounds bilaterally at the bases) Cardiovascular: Heart Auscultation: RRR, no murmurs Extremities: pertinent finding (Left below the knee amputation, loss of multiple finger digits) Assessment and Plan Assessment and Plan Impression: 66-year-old male Acute on chronic respiratory failure with likely viral bronchitis. Acute on chronic decompensation biventricular systolic heart failure History of biventricular pacemaker AICD - stable function. Plan: Renal function improved to baseline. Furosemide resumed at 80 mg daily (listed as current home dose on admission). EPIC reports 80 BID. Also was taking metolazone once weekly. Will hold for now. Likely will need on discharge to maintain fluid status. Continue other home medications. Stable from cardiac perspective to move off telemetry. Awaiting placement SQ heparin for DVT prophylaxis. Case to be discussed with Dr. Flynn. Will sign off. Please notify steam conditioner filling physician with additional questions or concerns. Cardiology attending: Pt seen and examined, agree with findings and assessment as per Alisa Guerrero. Stable from cardiac standpoint. For placement. Laboratory Results Last 24 Hours Test 10/29/17 11:13 10/29/17 16:38 10/29/17 21:15 10/30/17 06:16 Bedside Glucose 176 mg/dl 254 mg/dl 223 mg/dl 99 mg/dl
--- NOTE | 2017-10-30 11:06 | Pharmacy Progress Note ---
Pharmacy Glycemic Short Note 2 Date of Service Oct 30, 2017. OUTPATIENT ANTIDIABETIC REGIMEN: * Levemir 15 units SQ BID * Regular insulin 30 units SQ qAM * Glyburide 5mg PO qAM * HbA1c: 8.8% (10/22/17) ASSESSMENT: * Yesterday Mr Koroma's blood sugars ranged [phone] mg/dL with a fasting this morning of 99 mg/dL. The patient received 67 units yesterday with 35 units of basal... It appears that this admission is similar to the 06/2017 admission where patient received around 70 units a day with at least 30-40 units of basal. * For Levemir, scheduled 15 units twice daily. It appears that 35 units may be too aggressive (fasting of 99 mg/dL) but 30 units is appropriate (fasting of 133 mg/dL). This also correlates with the patient's home dose of Levemir. * For Novolog, tightened parameters in the morning to similar to the June 2017 admission where patient required correction factor of 10 and carbohydrate ratio of 4. These were tightened because the patient's blood sugars increased throughout the day. * Mr Koroma is a 66 y/o M with a PMH of CHF, CAD s/p stent, anemia, h/o DVT, and poorly controlled type 2 diabetes (goal HbA1C around 7.6-8.0% per the Elements of Diabetes Care Scoring Guide) who presents with respiratory failure. Over the past several days the patient has had hyperglycemia and has received IV steroids. After the patient's IV steroids were discontinued, the patient had a lower insulin requirement (~30-40 units/day) but then this increased significantly to close to 70 units/day. * Yesterday Mr Koroma's blood sugars ranged [phone] mg/dL with a fasting this morning of 201 mg/dL. The patient received 50 units yesterday with 20 units of basal... It appears that this admission is similar to the 06/2017 admission where patient received around 70 units a day with at least 30-40 units of basal. * For Lantus, established a scale for today... this scale will include doses 10- 20 units. It will allow for higher doses of 30-40 units of basal insulin per day which is what the patient requires when requiring more insulin. Nervous to go above 20 units of Levemir as this is higher than the patient's home dose already. * For Novolog, tightened parameters in the morning. However, the patient at lunch was 333 mg/dL. As per previous admissions, patient does require tighter control of Novolog upwards of correction factor 10 and carbohydrate ratio of 4. Tightened slightly to correction factor of 15 and carbohydrate ratio of 5 plus gave insulin bolus of 5 units. PLAN FOR INPATIENT GLYCEMIC CONTROL: * Basal insulin * Levemir 15 units twice daily * Bolus insulin * NovoLog per scale ACHS or Q6hrs while NPO * Goal Range: Low 110 mg/dL - High 140 mg/dL * Correction Factor: 15 mg/dL/unit * Nutritional / Prandial insulin per carb ratio of 1 unit per 4 grams CHO consumed PLAN FOR DISCHARGE: * Current A1c (8.8%) reflects sub-optimal glycemic control for a 66yo gentleman. * Might consider adjustment to outpt regimen on discharge. * Recommend close f/u with PCP after discharge to work toward optimizing A1c.
[2017-10-30] MEDS: FUROSEMIDE 80 MG TAB PO SCH (13:42)
[2017-10-30] MEDS: DIGOXIN 0.25 MG TAB PO SCH (17:25)
--- NOTE | 2017-10-30 19:47 | Progress Note ---
Medicine Progress Note Date & Time of Visit: Oct 30, 2017 at 19:43. Subjective seen resting in bed, comfortable states he feels fine overall denies chest pain, palpitations, dizziness no cough, dyspnea no other symptoms Objective Last 8 Hrs Date Time Temp Pulse Resp B/P (MAP) Pulse Ox O2 Delivery O2 Flow Rate FiO2 10/30/17 18:30 97 Room Air 10/30/17 18:30 36.4 66 20 136/70 (92) 95 Room Air 10/30/17 17:25 74 10/30/17 16:00 Room Air 10/30/17 15:47 36.5 60 20 134/67 (89) 97 Room Air 10/30/17 12:00 Room Air Physical Exam: General-oriented 3, speaks in sentences,no effort effort no accessory muscle use Neck- no JVD Lungs-clear breath sounds bilaterally Heart- regular rhythm; no murmur, normal rate Abdomen- normal bowel sounds, soft, nontender Extremities- no pretibial edema, no calf tenderness Neuro- alert, oriented x 3; no gross focal motor or sensory deficits no other neurologic deficits Skin- warm & dry Laboratory Results: Last 24 Hours Test 10/29/17 21:15 10/30/17 06:16 10/30/17 11:20 10/30/17 16:12 Bedside Glucose 223 mg/dl 99 mg/dl 168 mg/dl 133 mg/dl Assessment & Plan ACUTE HYPOXIC RESPIRATORY FAILURE POSSIBLE SECONDARY TO ACUTE BRONCHITIS CXR showed small right pleural effusion and patchy right basilar densities, unchanged. Influenza antigen and pcr negative Procalcitonin elevated No leukocytosis -- wheeze resolved, now on room air Doxycycline PO BID Day 02/08 continue Nebs q6h COMPONENT OF ACUTE ON CHRONIC SYSTOLIC CHF, CARDIOMYOPATHY BNP elevated CXR possible CHF 10/24 Lasix 20 mg IV given Resumed Lasix 80 mg p.o. daily as usual diuresing well so far, weight down to 106 crea improved Lasix 80mg po daily AICD interrogation done Cardio consulted, cleared for discharge ACUTE RENAL FAILURE Creatine 1.5 on admission Baseline creatine 1 crea improved resumed usual Lasix 80mg daily monitor CHRONIC SYSTOLIC CHF, CARDIOMYOPATHY, EF 15-20% OF LAST YEAR Management as noted above HTN BP improved Continue monitor BP DIABETES TYPE 2 Pharmacy for glycemic control HYPOTHYROIDISM Continue Levothyroxine Stable Ambulatory Dysfunction has prosthesis in LLE due to BKA PT/OT Fall precaution Will need placement Depression Continue Sertraline Stable Gout Continue Allopurinol Obesity Counseling on smoking cessation DVT ppx heparin subq Code status Full code Disposition transition to SNF when medically stable Current Inpatient Medications: Current Inpatient Medications Medications (Trade) Dose Ordered Sig/Ifeanyi Route Start Time Stop Time Status Last Admin Dose Admin Heparin Sodium (Porcine) (Heparin Sq 5000 Unit/0.5ml) 5,000 unit Q8 SQ 10/23/17 06:00 11/22/17 05:59 10/30/17 12:59 5,000 UNIT Acetaminophen (Tylenol Tab) 650 mg Q4H PRN PO 10/22/17 23:30 11/21/17 23:29 Nitroglycerin (Nitrostat Tab) 0.4 mg UD PRN SL 10/22/17 23:30 11/21/17 23:29 Glucose (Glucose 40% Gel) 15-30 GRAMS 15 GRAMS... UD PRN PO 10/22/17 23:30 11/21/17 23:29 Glucose (Glucose Chew Tab) 4-8 Tablets 4 Tabl... UD PRN PO 10/22/17 23:30 11/21/17 23:29 Dextrose (Dextrose 50% 50ML Syringe) 25-50ML OF 50% DW IV FOR... UD PRN IV 10/22/17 23:30 11/21/17 23:29 Glucagon (Glucagon Inj) 1 mg UD PRN SQ 10/22/17 23:30 11/21/17 23:29 Guaifenesin (Mucinex Contr Rel Tab) 600 mg Q12 PO 10/23/17 09:00 11/22/17 08:59 10/30/17 09:27 600 MG Allopurinol (Zyloprim Tab) 300 mg DAILY PO 10/23/17 09:00 11/22/17 08:59 10/30/17 09:28 300 MG Aspirin (Ecotrin Tab) 81 mg DAILY PO 10/23/17 09:00 11/22/17 08:59 10/30/17 09:29 81 MG Atorvastatin Calcium (Lipitor Tab) 80 mg DAILY PO 10/23/17 09:00 11/22/17 08:59 10/30/17 09:28 80 MG Digoxin (Lanoxin Tab) 0.25 mg DAILY@1600 PO 10/23/17 16:00 11/22/17 15:59 10/30/17 17:25 0.25 MG Isosorbide Mononitrate (Imdur Ext Rel Tab) 15 mg QAM PO 10/23/17 09:00 11/22/17 08:59 10/30/17 09:27 15 MG Levothyroxine Sodium (Synthroid Tab) 50 mcg DAILYBB PO 10/24/17 06:00 11/23/17 06:59 10/30/17 05:37 50 MCG Metoprolol Succinate (Toprol Xl Tab) 25 mg BID PO 10/23/17 09:00 11/22/17 08:59 10/30/17 09:28 25 MG Sertraline HCl (Zoloft Tab) 100 mg DAILY PO 10/23/17 09:00 11/22/17 08:59 10/30/17 09:27 100 MG Tramadol HCl (Ultram Tab) 25 mg Q6H PRN PO 10/22/17 23:30 11/21/17 23:29 Prochlorperazine Edisylate 5 mg/ Syringe 5 ml @ 5 mls/min Q6H PRN IV 10/22/17 23:30 11/21/17 23:29 Insulin Aspart (novoLOG ASPART) SLIDING SCALE If C... ACHS SC 10/24/17 07:00 11/22/17 06:59 10/30/17 17:27 10 UNITS Miscellaneous Information (Consult Glycemic Management Pharmacy) 1 ea UD PRN N/A 10/24/17 08:53 11/23/17 08:52 Doxycycline Hyclate (Vibramycin Cap) 100 mg BID PO 10/26/17 09:00 11/02/17 08:59 10/30/17 09:27 100 MG Losartan Potassium (coZAAR TAB) 25 mg QAM PO 10/28/17 09:00 11/27/17 08:59 10/30/17 09:28 25 MG Ipratropium [place] (Atrovent 0.02% 0.5MG/2.5ML Neb) 0.5 mg Q4H PRN INH 10/28/17 17:00 11/26/17 20:59 10/28/17 14:58 0.5 MG Levalbuterol (Xopenex 1.25MG/ 0.5ML Neb) 1.25 mg Q4H PRN INH 10/28/17 17:00 11/26/17 20:59 10/28/17 14:59 1.25 MG Furosemide (Lasix Tab) 80 mg QAM PO 10/30/17 09:00 11/29/17 08:59 10/30/17 13:42 80 MG Insulin Detemir (Levemir Flexpen/ FlexTouch) 15 units BID SC 10/30/17 09:00 11/29/17 08:59 10/30/17 09:31 15 UNITS
[2017-10-31] MEDS: LEVOTHYROXINE 50 MCG TAB PO SCH (06:17)
[2017-10-31] MEDS: HEPARIN SOD 5000 UNIT/0.5 ML CARP SQ SCH ×3 (06:18→22:02)
[2017-10-31 07:53] VITALS: BP 162/81; PULSE 62; TEMP 36.4; O2SAT 94
[2017-10-31] MEDS: GUAIFENESIN 600 MG TABCR PO SCH ×2 (08:03→20:18)
[2017-10-31] MEDS: ISOSORBIDE MONONITRATE 30 MG TABCR PO SCH (08:04)
[2017-10-31] MEDS: SERTRALINE HCL 100 MG TAB PO SCH (08:04)
[2017-10-31] MEDS: LOSARTAN POTASSIUM 25 MG TAB PO SCH (08:04)
[2017-10-31] MEDS: FUROSEMIDE 80 MG TAB PO SCH (08:05)
[2017-10-31] MEDS: ATORVASTATIN 40 MG TAB PO SCH (08:05)
[2017-10-31] MEDS: DOXYCYCLINE HYCLATE 100 MG CAP PO SCH ×2 (08:05→20:18)
[2017-10-31] MEDS: ALLOPURINOL 100 MG TAB PO SCH (08:05)
[2017-10-31] MEDS: ASPIRIN 81 MG ECTAB PO SCH (08:06)
[2017-10-31] MEDS: METOPROLOL SUCC 25MG EXT REL TAB PO SCH ×2 (08:06→20:18)
[2017-10-31] MEDS: INSULIN DETEMIR FLEXPEN/FLEX TOUCH 100 UNITS/ML 3ML SC SCH ×2 (08:09→22:02)
[2017-10-31] MEDS: INSULIN ASPART 100 UNITS/ML 3 ML PEN SC SCH ×4 (09:09→21:00)
[2017-10-31 15:07] VITALS: BP 112/58; PULSE 64; O2SAT 96
[2017-10-31 16:00] VITALS: O2SAT 96
[2017-10-31 16:11] VITALS: BP 146/66; PULSE 62; TEMP 36.6; O2SAT 93
[2017-10-31] MEDS: DIGOXIN 0.25 MG TAB PO SCH (16:12)
--- NOTE | 2017-10-31 16:19 | Progress Note ---
Medicine Progress Note Date & Time of Visit: Oct 31, 2017 at 16:10. Subjective seen resting in bed, comfortable denies dyspnea, chest pain, dizziness, palpitations felt tired after PT but no symptoms with ambulation no other symptoms Objective Last 8 Hrs Date Time Temp Pulse Resp B/P (MAP) Pulse Ox O2 Delivery O2 Flow Rate FiO2 10/31/17 15:07 64 96 10/31/17 09:49 Room Air 10/31/17 09:33 Room Air Physical Exam: General-oriented 3, speaks in sentences,no effort effort no accessory muscle use Neck- no JVD Lungs-clear breath sounds bilaterally, no rales/wheezes Heart- regular rhythm; no murmur, normal rate Abdomen- normal bowel sounds, soft, nontender Extremities- no pretibial edema, no calf tenderness small wound on left stump- no erythema, warmth, tenderness, discharge Neuro- alert, oriented x 3; no gross focal deficits Skin- warm & dry Laboratory Results: Last 24 Hours Test 10/30/17 16:12 10/30/17 20:34 10/31/17 08:03 10/31/17 11:50 Bedside Glucose 133 mg/dl 118 mg/dl 136 mg/dl 176 mg/dl Assessment & Plan ACUTE HYPOXIC RESPIRATORY FAILURE POSSIBLE SECONDARY TO ACUTE BRONCHITIS CXR showed small right pleural effusion and patchy right basilar densities, unchanged. Influenza antigen and pcr negative Procalcitonin elevated No leukocytosis -- wheeze resolved, now on room air completed Doxycycline PO BID x 7 days given Nebs q6h COMPONENT OF ACUTE ON CHRONIC SYSTOLIC CHF, CARDIOMYOPATHY BNP elevated CXR possible CHF given IV Lasix diuresing well so far crea improved resumed usual Lasix 80mg po daily AICD interrogation done Cardio consulted Dr. Perry and Dr. Flynn , cleared for discharge ACUTE RENAL FAILURE Creatine 1.5 on admission Baseline creatine 1 crea back to baseline resumed usual Lasix 80mg daily monitor CHRONIC SYSTOLIC CHF, CARDIOMYOPATHY, EF 15-20% OF LAST YEAR Management as noted above HTN BP improved Continue monitor BP DIABETES TYPE 2 Pharmacy for glycemic control on Lantus BID and Sliding Scale monitor HYPOTHYROIDISM Continue Levothyroxine Stable Ambulatory Dysfunction has prosthesis in LLE due to BKA (+) small wound on the LLE stump- no signs of infection, please monitor PT/OT Fall precaution Depression Continue Sertraline Stable Gout Continue Allopurinol Obesity Counseling on smoking cessation DVT ppx heparin subq given Code status Full code Disposition transition to SNF when medically stable ff up with PCP in SNF ff up with [facility] [employer] [facility] in 2-3 weeks Current Inpatient Medications: Current Inpatient Medications Medications (Trade) Dose Ordered Sig/Ifeanyi Route Start Time Stop Time Status Last Admin Dose Admin Heparin Sodium (Porcine) (Heparin Sq 5000 Unit/0.5ml) 5,000 unit Q8 SQ 10/23/17 06:00 11/22/17 05:59 10/31/17 12:54 5,000 UNIT Acetaminophen (Tylenol Tab) 650 mg Q4H PRN PO 10/22/17 23:30 11/21/17 23:29 Nitroglycerin (Nitrostat Tab) 0.4 mg UD PRN SL 10/22/17 23:30 11/21/17 23:29 Glucose (Glucose 40% Gel) 15-30 GRAMS 15 GRAMS... UD PRN PO 10/22/17 23:30 11/21/17 23:29 Glucose (Glucose Chew Tab) 4-8 Tablets 4 Tabl... UD PRN PO 10/22/17 23:30 11/21/17 23:29 Dextrose (Dextrose 50% 50ML Syringe) 25-50ML OF 50% DW IV FOR... UD PRN IV 10/22/17 23:30 11/21/17 23:29 Glucagon (Glucagon Inj) 1 mg UD PRN SQ 10/22/17 23:30 11/21/17 23:29 Guaifenesin (Mucinex Contr Rel Tab) 600 mg Q12 PO 10/23/17 09:00 11/22/17 08:59 10/31/17 08:03 600 MG Allopurinol (Zyloprim Tab) 300 mg DAILY PO 10/23/17 09:00 11/22/17 08:59 10/31/17 08:05 300 MG Aspirin (Ecotrin Tab) 81 mg DAILY PO 10/23/17 09:00 11/22/17 08:59 10/31/17 08:06 81 MG Atorvastatin Calcium (Lipitor Tab) 80 mg DAILY PO 10/23/17 09:00 11/22/17 08:59 10/31/17 08:05 80 MG Digoxin (Lanoxin Tab) 0.25 mg DAILY@1600 PO 10/23/17 16:00 11/22/17 15:59 10/30/17 17:25 0.25 MG Isosorbide Mononitrate (Imdur Ext Rel Tab) 15 mg QAM PO 10/23/17 09:00 11/22/17 08:59 10/31/17 08:04 15 MG Levothyroxine Sodium (Synthroid Tab) 50 mcg DAILYBB PO 10/24/17 06:00 11/23/17 06:59 10/31/17 06:17 50 MCG Metoprolol Succinate (Toprol Xl Tab) 25 mg BID PO 10/23/17 09:00 11/22/17 08:59 10/31/17 08:06 25 MG Sertraline HCl (Zoloft Tab) 100 mg DAILY PO 10/23/17 09:00 11/22/17 08:59 10/31/17 08:04 100 MG Tramadol HCl (Ultram Tab) 25 mg Q6H PRN PO 10/22/17 23:30 11/21/17 23:29 Prochlorperazine Edisylate 5 mg/ Syringe 5 ml @ 5 mls/min Q6H PRN IV 10/22/17 23:30 11/21/17 23:29 Insulin Aspart (novoLOG ASPART) SLIDING SCALE If C... ACHS SC 10/24/17 07:00 11/22/17 06:59 10/31/17 12:20 14 UNITS Miscellaneous Information (Consult Glycemic Management Pharmacy) 1 ea UD PRN N/A 10/24/17 08:53 11/23/17 08:52 Doxycycline Hyclate (Vibramycin Cap) 100 mg BID PO 10/26/17 09:00 11/02/17 08:59 10/31/17 08:05 100 MG Losartan Potassium (coZAAR TAB) 25 mg QAM PO 10/28/17 09:00 11/27/17 08:59 10/31/17 08:04 25 MG Ipratropium [place] (Atrovent 0.02% 0.5MG/2.5ML Neb) 0.5 mg Q4H PRN INH 10/28/17 17:00 11/26/17 20:59 10/28/17 14:58 0.5 MG Levalbuterol (Xopenex 1.25MG/ 0.5ML Neb) 1.25 mg Q4H PRN INH 10/28/17 17:00 11/26/17 20:59 10/28/17 14:59 1.25 MG Furosemide (Lasix Tab) 80 mg QAM PO 10/30/17 09:00 11/29/17 08:59 10/31/17 08:05 80 MG Insulin Detemir (Levemir Flexpen/ FlexTouch) 15 units BID SC 10/30/17 09:00 11/29/17 08:59 10/31/17 08:09 15 UNITS
[2017-10-31] MEDS ORDERED: LVMIPEN SC (16:24)
[2017-10-31] MEDS ORDERED: NVLGIPEN SC (16:24)
[2017-10-31] MEDS ORDERED: HPRIS5M SQ (16:29)
--- NOTE | 2017-10-31 16:31 | Discharge Instructions ---
Discharge Instructions Date of Service Oct 31, 2017. Admission Reason for Admission: Respiratory Failure, Acute Discharge Discharge Diagnosis / Problem: ACUTE RESPIRATORY FAILURE, ACUTE BRONCHITIS, CHF EXACERBATION Discharge Goals Goal(s): Diagnostic testing, Therapeutic intervention Activity Recommendations Activity Level: Assistance Required Therapies: Physical Therapy, Occupational Therapy FALL PRECAUTIONS PLEASE . Additional Information Patient informed of condition: Yes Advance Directives: No (UNKNOWN) DNR: No (PATIENT IS FULL CODE) Level of Care: Skilled Communicable Disease: No Prognosis: Stable Instructions / Follow-Up Instructions / Follow-Up PLEASE MONITOR VOLUME STATUS CLOSELY AND TITRATE LASIX ACCORDINGLY. MONITOR RENAL FUNCTION WHILE ON DIURETICS. MONITOR RESPIRATORY STATUS. PLEASE REFER TO ACCOMPANYING HOSPITAL DISCHARGE SUMMARY FOR FURTHER DETAILS. Current Hospital Diet Patient's current hospital diet: AHA Diet (Heart Healthy), Diabetes Type 2 Diet Discharge Diet Recommended Diet: AHA Diet (Heart Healthy), Diabetes Type 2 Diet Fluid Restriction: 2000 ml (8 cups) Procedures Procedures Performed: CHEST XRAY Pending Studies Studies pending at discharge: yes List of pending studies: PLEASE REFER TO ACCOMPANYING HOSPITAL DISCHARGE SUMMARY FOR FURTHER DETAILS. Physician Orders On Transfer Special Precautions: PLEASE MONITOR VOLUME STATUS CLOSELY AND TITRATE LASIX ACCORDINGLY. MONITOR RENAL FUNCTION WHILE ON DIURETICS. MONITOR RESPIRATORY STATUS. PLEASE REFER TO ACCOMPANYING HOSPITAL DISCHARGE SUMMARY FOR FURTHER DETAILS. Laboratory Results Hemoglobin A1c Test 10/22/17 19:48 Range/Units Estimated Average Glucose 206 mg/dl Hemoglobin A1c 8.8 H 4.5-5.6 % Medical Emergencies . Who to Call and When: Medical Emergencies: If at any time you feel your situation is an emergency, please call 911 immediately. . Non-Emergent Contact Non-Emergency issues call your: Primary Care Provider, [employer]er Call Non-Emergent contact if: you have a fever, wound has increased drainage, wound has increased redness, wound has increased pain, you have any medication questions . . "Provider Documentation" section prepared by Nas Buckner. . Core Measure Problem Core Measures: None
--- NOTE | 2017-10-31 16:37 | Discharge Summary ---
Discharge Summary Date of Service Oct 31, 2017. Discharge Summary Admission Date: Oct 22, 2017 at 22:49 Discharge Date: Oct 31, 2017 Discharge Disposition: [facility] facility Principal Diagnosis: ACUTE HYPOXIC RESPIRATORY FAILURE POSSIBLY SECONDARY TO ACUTE BRONCHITIS, CHF EXACERBATION Secondary Diagnoses/Problems: PLEASE REFER TO HOSPITAL COURSE BELOW. Procedures: CHEST ONE VIEW PORTABLE HISTORY: Evaluate Fever/Sepsis COMPARISON: Chest 08/21/2017. FINDINGS: Healing right lower rib fractures are again noted. No pneumothorax. The heart remains enlarged. Left-sided pacemaker/defibrillator. Small right pleural effusion and patchy right basilar densities are again noted. Mild pulmonary edema remains unchanged. IMPRESSION: 1. No change in the cardiomegaly and mild pulmonary edema. 2. Small right pleural effusion and patchy right basilar densities, unchanged. 3. Healing right lower rib fractures are again noted. Electronically signed by: Man Hamlin M.D. 10/22/2017 8:23 PM CHEST ONE VIEW PORTABLE HISTORY: Short of breath. Respiratory failure. COMPARISON: Chest 10/22/2017. FINDINGS: The heart remains enlarged. Left-sided pacemaker/defibrillator. Improved aeration within the right lung base. Trace right pleural effusion. No pneumothorax. Mild pulmonary vascular congestion has slightly improved. Healing right lower rib fractures are again noted. IMPRESSION: Cardiomegaly with slight improvement in the mild pulmonary vascular congestion and right basilar airspace opacities. Electronically signed by: Man Hamlin M.D. 10/24/2017 8:54 AM SINGLE VIEW CHEST CLINICAL HISTORY: Dyspnea. Respiratory failure. FINDINGS: An AP, portable, upright chest radiograph is compared to study dated 10/24/2017. The examination is degraded by portable technique and patient rotation. A 3-lead cardiac AICD partially obscures the left upper lobe. The heart is enlarged. Pulmonary vascular congestion and mild interstitial edema has not significantly changed from yesterday. No a small right pleural effusion is identified. No airspace consolidation is seen typical for pneumonia. No pneumothorax is seen. Right-sided rib fractures are observed. IMPRESSION: 1. Cardiomegaly and AICD. Congestive failure and mild interstitial edema is similar in appearance to yesterday. 2. Small right pleural effusion. Consultations: MACHINE SETTER DR. ZAIDI, DR. REIS, JIM FERNANDEZ Pending Studies/Follow-Up: Please refer to hospital course below. Medication Reconciliation New Medications: Heparin Sod (Porcine) (Heparin Sodium) 5,000 Unit/0.5 Ml Inj 5000 UNIT SQ Q8 for 30 Days Insulin Aspart (Novolog Flexpen) 100 Units/Ml Inj 0 UNITS SC ACHS for 30 Days per sliding scale Insulin Detemir (Levemir Flextouch) 100 Unit/Ml Inj 15 UNITS SC BID for 30 Days Continued Medications: Albuterol Sulfate (Proair Respiclick) 108 Mcg/Act Aer 2 PUFFS INH Q4 PRN for SOB/Wheezing Allopurinol (Zyloprim) 100 Mg Tab 300 MG PO DAILY, TAB Aspirin (Aspirin Ec) 81 Mg Tab 81 MG PO DAILY Atorvastatin (Lipitor) 80 Mg Tab 80 MG PO DAILY, 0 Refills Digoxin (Digoxin) 0.25 Mg Tab 0.25 MG PO DAILY Furosemide (Lasix) 80 Mg Tab 80 MG PO QAM, TAB Glyburide (Micronase) 5 Mg Tab 5 MG PO DAILYBB, TAB Isosorbide Mononitrate Ext Rel (Imdur Ext Rel) 30 Mg Ertab 15 MG PO QAM, TAB 1/2 TABLET DOSE Levothyroxine Sodium (Synthroid) 50 Mcg Tab 50 MCG PO DAILY, TAB Losartan Potassium (Cozaar) 25 Mg Tab 25 MG PO DAILY, TAB Meclizine HCl (Meclizine 25) 25 Mg Tab 25 MG PO TID PRN for dizziness Metolazone (Zaroxolyn) 2.5 Mg Tab 2.5 MG PO WK, TAB TAKE ON SUNDAYS Metoprolol Succinate (Toprol Xl) 25 Mg Tab 25 MG PO BID, TAB Sertraline HCl (Sertraline HCl) 100 Mg Tab 100 MG PO DAILY Discontinued Medications: Insulin Detemir (Levemir Flextouch) 100 Unit/Ml Inj 15 UNITS SQ QAM for 30 Days Insulin Detemir (Levemir Flextouch) 100 Unit/Ml Inj 15 UNITS SQ HS for 30 Days Insulin Regular (Human) (Novolin R U-100) 100 Unit/Ml Inj 30 UNITS SQ QAM Admission Information HPI (per Admitting provider): PATIENT'S PRIMARY CARE DOCTOR: Oren Almazan DO. CHIEF COMPLAINT: Shortness of breath. HISTORY OF PRESENT ILLNESS: History obtained from patient and records. Patient is a fair historian. 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 Recent confinement last August 2017 for syncope, hypoglycemia. Patient discharged to [facility] initially. Patient has not seen PCP since discharge from the hospital 2 months ago. Patient noted intermittent cough, mostly dry last few days, more short of breath than usual. Denies aspiration. He thinks he is gaining weight although he does not have a scale at home. Denies chest pain. At the Emergency Room, O2 sats noted to be 89 on room air. Patient received DuoNebs, Solu-Medrol, Lasix for possible bronchitis, CHF. MEDICAL HISTORY: As above. A 2D echo from June 2017 showed LVH, severe LV dilatation, EF 15%. SURGERIES: Orthopedic procedures, ICD placement. HOME MEDICATIONS: Include glyburide, Novolin, Imdur ER, Synthroid, Cozaar, Zaroxolyn, Toprol-XL, meclizine, sertraline, Zyloprim, aspirin, Lipitor, ProAir, digoxin, Lasix. ALLERGIES: GEMFIBROZIL. FAMILY HISTORY: Diabetes. PERSONAL AND SOCIAL HISTORY: Nonsmoker. No chronic intake of alcoholic beverages. 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 REVIEW OF SYSTEMS: As per HPI. All 10 systems reviewed. All other ROS negative. Physical Exam (per Admitting): VITAL SIGNS: Blood pressure was noted to be 126/60, pulse rate 70, RR 14, temperature 36.9, sats 89 on room air, later 96 on 2 liters. GENERAL: Noted to be, obese, no respiratory distress. Somewhat sleepy. Somewhat apathetic. Unkempt. SKIN: Pallor. Warm. HEENT: Alopecia. Pale palpebral conjuctivae. No ptosis. Dry mucosa. Nasal cannula in place. NECK: Short, supple. CHEST: Decreased breath sounds, occasional wheeze. HEART: Diminished S1 and S2. No obvious murmurs. ABDOMEN: Some distention. No tender. EXTREMITIES: Amputation stump LLE. No swelling on the right. No tenderness. NEUROLOGIC: Coherent but sleepy, otherwise no gross focality, no facial asymmetry. Hospital Course ACUTE HYPOXIC RESPIRATORY FAILURE POSSIBLE SECONDARY TO ACUTE BRONCHITIS CXR showed small right pleural effusion and patchy right basilar densities, unchanged. Influenza antigen and pcr negative Procalcitonin elevated No leukocytosis -- wheeze resolved, now on room air completed Doxycycline PO BID x 7 days given Nebs q6h respiratory status now stable COMPONENT OF ACUTE ON CHRONIC SYSTOLIC CHF, CARDIOMYOPATHY BNP elevated CXR possible CHF given IV Lasix diuresed well crea improved resumed usual Lasix 80mg po daily and Metolazone weekly AICD interrogation done Cardio consulted Dr. Zaidi and Dr. Reis , cleared for discharge monitor volume status, and renal function ACUTE RENAL FAILURE Creatine 1.5 on admission Baseline creatine 1 crea back to baseline resumed usual Lasix 80mg daily and Metolazone weekly monitor CHRONIC SYSTOLIC CHF, CARDIOMYOPATHY, EF 15-20% OF LAST YEAR Management as noted above HTN BP improved Continue monitor BP DIABETES TYPE 2 Pharmacy for glycemic control on Lantus BID and Sliding Scale monitor HYPOTHYROIDISM Continue Levothyroxine Stable Ambulatory Dysfunction has prosthesis in LLE due to BKA (+) small wound on the LLE stump- no signs of infection, please monitor PT/OT Fall precaution Depression Continue Sertraline Stable Gout Continue Allopurinol DVT ppx heparin subq , monitor for indication and duration Code status Full code Disposition transition to SNF when medically stable ff up with PCP in SNF ff up with Technical Fellow in 2-3 weeks Total time spent on discharge = 40 minutes This includes examination of the patient, discharge planning, medication reconciliation, and communication with other providers. Discharge Instructions Discharge Instructions Date of Service Oct 31, 2017. Admission Reason for Admission: Respiratory Failure, Acute Discharge Discharge Diagnosis / Problem: ACUTE RESPIRATORY FAILURE, ACUTE BRONCHITIS, CHF EXACERBATION Discharge Goals Goal(s): Diagnostic testing, Therapeutic intervention Activity Recommendations Activity Level: Assistance Required Therapies: Physical Therapy, Occupational Therapy FALL PRECAUTIONS PLEASE . Additional Information Patient informed of condition: Yes Advance Directives: No (UNKNOWN) DNR: No (PATIENT IS FULL CODE) Level of Care: Skilled Communicable Disease: No Prognosis: Stable Instructions / Follow-Up Instructions / Follow-Up PLEASE MONITOR VOLUME STATUS CLOSELY AND TITRATE LASIX ACCORDINGLY. MONITOR RENAL FUNCTION WHILE ON DIURETICS. MONITOR RESPIRATORY STATUS. PLEASE REFER TO ACCOMPANYING HOSPITAL DISCHARGE SUMMARY FOR FURTHER DETAILS. Current Hospital Diet Patient's current hospital diet: AHA Diet (Heart Healthy), Diabetes Type 2 Diet Discharge Diet Recommended Diet: AHA Diet (Heart Healthy), Diabetes Type 2 Diet Fluid Restriction: 2000 ml (8 cups) Procedures Procedures Performed: CHEST XRAY Pending Studies Studies pending at discharge: yes List of pending studies: PLEASE REFER TO ACCOMPANYING HOSPITAL DISCHARGE SUMMARY FOR FURTHER DETAILS. Physician Orders On Transfer Special Precautions: PLEASE MONITOR VOLUME STATUS CLOSELY AND TITRATE LASIX ACCORDINGLY. MONITOR RENAL FUNCTION WHILE ON DIURETICS. MONITOR RESPIRATORY STATUS. PLEASE REFER TO ACCOMPANYING HOSPITAL DISCHARGE SUMMARY FOR FURTHER DETAILS. Laboratory Results Hemoglobin A1c Test 10/22/17 19:48 Range/Units Estimated Average Glucose 206 mg/dl Hemoglobin A1c 8.8 H 4.5-5.6 % Medical Emergencies . Who to Call and When: Medical Emergencies: If at any time you feel your situation is an emergency, please call 911 immediately. . Non-Emergent Contact Non-Emergency issues call your: Primary Care Provider, Technical Fellow Call Non-Emergent contact if: you have a fever, wound has increased drainage, wound has increased redness, wound has increased pain, you have any medication questions . . "Provider Documentation" section prepared by Nas Buckner. . Core Measure Problem Core Measures: None
[2017-10-31 20:17] VITALS: BP 164/92; PULSE 72
[2017-10-31 23:29] VITALS: BP 143/75; PULSE 66; TEMP 36.4; O2SAT 92
[2017-11-01] MEDS: LEVOTHYROXINE 50 MCG TAB PO SCH (06:14)
[2017-11-01] MEDS: HEPARIN SOD 5000 UNIT/0.5 ML CARP SQ SCH ×3 (06:15→21:12)
[2017-11-01 07:03] VITALS: BP 168/93; PULSE 63; TEMP 36.5; O2SAT 96
[2017-11-01] MEDS: INSULIN DETEMIR FLEXPEN/FLEX TOUCH 100 UNITS/ML 3ML SC SCH ×2 (08:00→21:11)
[2017-11-01] MEDS: DOXYCYCLINE HYCLATE 100 MG CAP PO SCH ×2 (08:30→21:05)
[2017-11-01] MEDS: LOSARTAN POTASSIUM 25 MG TAB PO SCH (08:30)
[2017-11-01] MEDS: FUROSEMIDE 80 MG TAB PO SCH (08:30)
[2017-11-01] MEDS: ISOSORBIDE MONONITRATE 30 MG TABCR PO SCH (08:30)
[2017-11-01] MEDS: METOPROLOL SUCC 25MG EXT REL TAB PO SCH ×2 (08:31→21:05)
[2017-11-01] MEDS: SERTRALINE HCL 100 MG TAB PO SCH (08:31)
[2017-11-01] MEDS: ATORVASTATIN 40 MG TAB PO SCH (08:31)
[2017-11-01] MEDS: GUAIFENESIN 600 MG TABCR PO SCH ×2 (08:31→21:05)
[2017-11-01] MEDS: ASPIRIN 81 MG ECTAB PO SCH (08:32)
[2017-11-01] MEDS: ALLOPURINOL 100 MG TAB PO SCH (08:32)
[2017-11-01 08:43] LABS: HEMATOCRIT 40.1 % (42-52); HEMOGLOBIN 13.9 g/dL (14.0-18.0); MEAN CELL VOLUME 78.2 fL (80-100); MEAN CORPUSCULAR HEMOGLOBIN 27.1 pg (25-34); MEAN CORPUSCULAR HGB CONC 34.7 g/dl (32-36); MEAN PLATELET VOLUME 8.9 fL (7.4-10.4); PLATELET COUNT 345 K/uL (130-400); RED CELL DISTRIBUTION WIDTH CV 16.2 % (11.5-14.5); RED CELL DISTRIBUTION WIDTH SD 46.3 fL (36.4-46.3); WHITE BLOOD COUNT 10.55 K/uL (4.8-10.8)
[2017-11-01 08:46] LABS: BASO % 0.4 %; BASO ABS # 0.04 K/uL (0-0.2); EOS ABS # 0.42 K/uL (0-0.5); IG# 0.31 K/uL (0.00-0.02); LYMPH % 17.3 %; LYMPH ABS # 1.83 K/uL (1.2-3.4); MONO % 5.7 %; NEUT % 69.7 %; NEUT ABS # 7.35 K/uL (1.4-6.5)
[2017-11-01] MEDS: INSULIN ASPART 100 UNITS/ML 3 ML PEN SC SCH ×4 (09:16→21:11)
[2017-11-01 12:59] VITALS: BP 168/93; PULSE 63; TEMP 36.5; O2SAT 96
[2017-11-01 14:18] VITALS: BP 101/58; PULSE 60; TEMP 36.3; O2SAT 96
--- NOTE | 2017-11-01 14:50 | Progress Note ---
Subjective Date of Service: Nov 01, 2017. Subjective Pt evaluation today including: conversation w/ patient, physical exam, lab review, review of studies, review of inpatient medication list Saw/examined the patient in room 419 No problems/issues to note denies shortness of breath/chest pain Problem List Medical Problems: (1) Acute renal injury Status: Acute (2) Altered mental status Status: Acute (3) C. difficile diarrhea Status: Acute (4) Cellulitis of right hand Status: Acute (5) CHF exacerbation Status: Acute (6) COPD exacerbation Status: Acute (7) Dehydration Status: Acute (8) Diabetes Status: Acute (9) Hemothorax on right Status: Acute (10) Hyperglycemia Status: Acute (11) Hypoglycemia Status: Acute (12) Hypoglycemia Status: Acute (13) Hypoglycemia Status: Acute (14) Hypotension Status: Acute (15) Hypothermia Status: Acute (16) Hypothermia Status: Acute (17) Infection of finger Status: Acute (18) Multiple rib fractures Status: Acute (19) Necrotic wound of right hand Status: Acute (20) Pleural effusion, right Status: Acute (21) Right-sided chest pain Status: Acute (22) Sepsis Status: Acute (23) Septic shock Status: Acute (24) Severe sepsis Status: Acute (25) Stroke Status: Acute Review of Systems Respiratory: No cough, No sputum, No shortness of breath Cardiac: No chest pain, No edema, No palpitations Medications Current Inpatient Medications Medications (Trade) Dose Ordered Sig/Ifeanyi Route Start Time Stop Time Status Last Admin Dose Admin Heparin Sodium (Porcine) (Heparin Sq 5000 Unit/0.5ml) 5,000 unit Q8 SQ 10/23/17 06:00 11/22/17 05:59 11/01/17 06:15 5,000 UNIT Acetaminophen (Tylenol Tab) 650 mg Q4H PRN PO 10/22/17 23:30 11/21/17 23:29 Nitroglycerin (Nitrostat Tab) 0.4 mg UD PRN SL 10/22/17 23:30 11/21/17 23:29 Glucose (Glucose 40% Gel) 15-30 GRAMS 15 GRAMS... UD PRN PO 10/22/17 23:30 11/21/17 23:29 Glucose (Glucose Chew Tab) 4-8 Tablets 4 Tabl... UD PRN PO 10/22/17 23:30 11/21/17 23:29 Dextrose (Dextrose 50% 50ML Syringe) 25-50ML OF 50% DW IV FOR... UD PRN IV 10/22/17 23:30 11/21/17 23:29 Glucagon (Glucagon Inj) 1 mg UD PRN SQ 10/22/17 23:30 11/21/17 23:29 Guaifenesin (Mucinex Contr Rel Tab) 600 mg Q12 PO 10/23/17 09:00 11/22/17 08:59 11/01/17 08:31 600 MG Allopurinol (Zyloprim Tab) 300 mg DAILY PO 10/23/17 09:00 11/22/17 08:59 11/01/17 08:32 300 MG Aspirin (Ecotrin Tab) 81 mg DAILY PO 10/23/17 09:00 11/22/17 08:59 11/01/17 08:32 81 MG Atorvastatin Calcium (Lipitor Tab) 80 mg DAILY PO 10/23/17 09:00 11/22/17 08:59 11/01/17 08:31 80 MG Digoxin (Lanoxin Tab) 0.25 mg DAILY@1600 PO 10/23/17 16:00 11/22/17 15:59 10/31/17 16:12 0.25 MG Isosorbide Mononitrate (Imdur Ext Rel Tab) 15 mg QAM PO 10/23/17 09:00 11/22/17 08:59 11/01/17 08:30 15 MG Levothyroxine Sodium (Synthroid Tab) 50 mcg DAILYBB PO 10/24/17 06:00 11/23/17 06:59 11/01/17 06:14 50 MCG Metoprolol Succinate (Toprol Xl Tab) 25 mg BID PO 10/23/17 09:00 11/22/17 08:59 11/01/17 08:31 25 MG Sertraline HCl (Zoloft Tab) 100 mg DAILY PO 10/23/17 09:00 11/22/17 08:59 11/01/17 08:31 100 MG Tramadol HCl (Ultram Tab) 25 mg Q6H PRN PO 10/22/17 23:30 11/21/17 23:29 Prochlorperazine Edisylate 5 mg/ Syringe 5 ml @ 5 mls/min Q6H PRN IV 10/22/17 23:30 11/21/17 23:29 Insulin Aspart (novoLOG ASPART) SLIDING SCALE If C... ACHS SC 10/24/17 07:00 11/22/17 06:59 11/01/17 13:10 14 UNITS Miscellaneous Information (Consult Glycemic Management Pharmacy) 1 ea UD PRN N/A 10/24/17 08:53 11/23/17 08:52 Doxycycline Hyclate (Vibramycin Cap) 100 mg BID PO 10/26/17 09:00 11/02/17 08:59 11/01/17 08:30 100 MG Losartan Potassium (coZAAR TAB) 25 mg QAM PO 10/28/17 09:00 11/27/17 08:59 11/01/17 08:30 25 MG Ipratropium [place] (Atrovent 0.02% 0.5MG/2.5ML Neb) 0.5 mg Q4H PRN INH 10/28/17 17:00 11/26/17 20:59 10/28/17 14:58 0.5 MG Levalbuterol (Xopenex 1.25MG/ 0.5ML Neb) 1.25 mg Q4H PRN INH 10/28/17 17:00 11/26/17 20:59 10/28/17 14:59 1.25 MG Furosemide (Lasix Tab) 80 mg QAM PO 10/30/17 09:00 11/29/17 08:59 11/01/17 08:30 80 MG Insulin Detemir (Levemir Flexpen/ FlexTouch) 15 units BID SC 10/30/17 09:00 11/29/17 08:59 11/01/17 08:00 15 UNITS Objective Vital Signs Date Time Temp Pulse Resp B/P (MAP) Pulse Ox O2 Delivery O2 Flow Rate FiO2 11/01/17 14:18 36.3 60 19 101/58 (72) 96 Room Air 11/01/17 12:59 36.5 63 20 96 Room Air 11/01/17 08:00 Room Air 11/01/17 07:03 36.5 63 20 168/93 (118) 96 Room Air 11/01/17 00:00 Room Air 10/31/17 23:29 36.4 66 17 143/75 (97) 92 Room Air 10/31/17 20:17 72 164/92 (116) 10/31/17 16:12 68 10/31/17 16:11 36.6 62 20 146/66 (92) 93 Room Air 10/31/17 16:00 96 Room Air 10/31/17 15:07 64 96 Physical Exam General Appearance: no apparent distress Respiratory/Chest: lungs clear, normal breath sounds, no respiratory distress, no accessory muscle use Cardiovascular: regular rate, rhythm, no edema, no murmur Laboratory Results Last 24 Hours Test 10/31/17 16:49 10/31/17 21:58 11/01/17 07:53 11/01/17 08:05 Bedside Glucose 129 mg/dl 135 mg/dl 120 mg/dl White Blood Count 10.55 K/uL Red Blood Count 5.13 M/uL Hemoglobin 13.9 g/dL Hematocrit 40.1 % Mean Corpuscular Volume 78.2 fL Mean Corpuscular Hemoglobin 27.1 pg Mean Corpuscular Hemoglobin Concent 34.7 g/dl Platelet Count 345 K/uL Mean Platelet Volume 8.9 fL Neutrophils (%) (Auto) 69.7 % Lymphocytes (%) (Auto) 17.3 % Monocytes (%) (Auto) 5.7 % Eosinophils (%) (Auto) 4.0 % Basophils (%) (Auto) 0.4 % Neutrophils # (Auto) 7.35 K/uL Lymphocytes # (Auto) 1.83 K/uL Monocytes # (Auto) 0.60 K/uL Eosinophils # (Auto) 0.42 K/uL Basophils # (Auto) 0.04 K/uL RDW Standard Deviation 46.3 fL RDW Coefficient of Variation 16.2 % Immature Granulocyte % (Auto) 2.9 % Immature Granulocyte # (Auto) 0.31 K/uL Red Blood Cell Morphology Unremarkable Test 11/01/17 12:08 Bedside Glucose 164 mg/dl Assessment and Plan 11/01 saw the patient today, clinically doing good no problems/issues at this time completed antibiotics will continue current diuretic dose ACUTE HYPOXIC RESPIRATORY FAILURE POSSIBLE SECONDARY TO ACUTE BRONCHITIS CXR showed small right pleural effusion and patchy right basilar densities, unchanged. Influenza antigen and pcr negative Procalcitonin elevated No leukocytosis -- wheeze resolved, now on room air completed Doxycycline PO BID x 7 days given Nebs q6h COMPONENT OF ACUTE ON CHRONIC SYSTOLIC CHF, CARDIOMYOPATHY BNP elevated CXR possible CHF given IV Lasix diuresing well so far crea improved resumed usual Lasix 80mg po daily AICD interrogation done Cardio consulted Dr. Perry and Dr. Flynn , cleared for discharge ACUTE RENAL FAILURE Creatine 1.5 on admission Baseline creatine 1 crea back to baseline resumed usual Lasix 80mg daily monitor CHRONIC SYSTOLIC CHF, CARDIOMYOPATHY, EF 15-20% OF LAST YEAR Management as noted above HTN BP improved Continue monitor BP DIABETES TYPE 2 Pharmacy for glycemic control on Lantus BID and Sliding Scale monitor HYPOTHYROIDISM Continue Levothyroxine Stable Ambulatory Dysfunction has prosthesis in LLE due to BKA (+) small wound on the LLE stump- no signs of infection, please monitor PT/OT Fall precaution Depression Continue Sertraline Stable Gout Continue Allopurinol Obesity Counseling on smoking cessation DVT ppx heparin subq given Code status Full code Disposition transition to SNF when medically stable ff up with PCP in SNF ff up with Agricultural Services Director in 2-3 weeks
[2017-11-01] MEDS: DIGOXIN 0.25 MG TAB PO SCH (16:22)
[2017-11-02 00:09] VITALS: BP 151/73; PULSE 62; TEMP 36.5; O2SAT 92
[2017-11-02] MEDS: HEPARIN SOD 5000 UNIT/0.5 ML CARP SQ SCH ×2 (06:27→13:52)
[2017-11-02] MEDS: LEVOTHYROXINE 50 MCG TAB PO SCH (06:28)
[2017-11-02 07:21] VITALS: BP 148/87; PULSE 56; TEMP 36.5; O2SAT 96
[2017-11-02] MEDS: GUAIFENESIN 600 MG TABCR PO SCH (07:46)
[2017-11-02] MEDS: METOPROLOL SUCC 25MG EXT REL TAB PO SCH (07:47)
[2017-11-02] MEDS: LOSARTAN POTASSIUM 25 MG TAB PO SCH (07:47)
[2017-11-02] MEDS: FUROSEMIDE 80 MG TAB PO SCH (07:47)
[2017-11-02] MEDS: DOXYCYCLINE HYCLATE 100 MG CAP PO SCH (07:47)
[2017-11-02] MEDS: ISOSORBIDE MONONITRATE 30 MG TABCR PO SCH (07:47)
[2017-11-02] MEDS: ALLOPURINOL 100 MG TAB PO SCH (07:48)
[2017-11-02] MEDS: ASPIRIN 81 MG ECTAB PO SCH (07:48)
[2017-11-02] MEDS: SERTRALINE HCL 100 MG TAB PO SCH (07:48)
[2017-11-02] MEDS: ATORVASTATIN 40 MG TAB PO SCH (07:48)
[2017-11-02 07:50] VITALS: PULSE 60
[2017-11-02] MEDS: INSULIN DETEMIR FLEXPEN/FLEX TOUCH 100 UNITS/ML 3ML SC SCH (08:24)
[2017-11-02] MEDS: INSULIN ASPART 100 UNITS/ML 3 ML PEN SC SCH ×2 (08:25→14:01)
--- NOTE | 2017-11-02 11:27 | Progress Note ---
Subjective Date of Service: Nov 02, 2017. Subjective Pt evaluation today including: conversation w/ patient, physical exam, lab review, review of studies, review of inpatient medication list Saw/examined the patient in room 419 He's doing well breathing status stable, no other issues to note; eager to go Problem List Medical Problems: (1) Acute renal injury Status: Acute (2) Altered mental status Status: Acute (3) C. difficile diarrhea Status: Acute (4) Cellulitis of right hand Status: Acute (5) CHF exacerbation Status: Acute (6) COPD exacerbation Status: Acute (7) Dehydration Status: Acute (8) Diabetes Status: Acute (9) Hemothorax on right Status: Acute (10) Hyperglycemia Status: Acute (11) Hypoglycemia Status: Acute (12) Hypoglycemia Status: Acute (13) Hypoglycemia Status: Acute (14) Hypotension Status: Acute (15) Hypothermia Status: Acute (16) Hypothermia Status: Acute (17) Infection of finger Status: Acute (18) Multiple rib fractures Status: Acute (19) Necrotic wound of right hand Status: Acute (20) Pleural effusion, right Status: Acute (21) Right-sided chest pain Status: Acute (22) Sepsis Status: Acute (23) Septic shock Status: Acute (24) Severe sepsis Status: Acute (25) Stroke Status: Acute Review of Systems Respiratory: No cough, No sputum, No wheezing, No shortness of breath, No dyspnea on exertion, No dyspnea at rest, No hemoptysis Cardiac: No chest pain Musculoskeletal: No joint pain Medications Current Inpatient Medications Medications (Trade) Dose Ordered Sig/Ifeanyi Route Start Time Stop Time Status Last Admin Dose Admin Heparin Sodium (Porcine) (Heparin Sq 5000 Unit/0.5ml) 5,000 unit Q8 SQ 10/23/17 06:00 11/22/17 05:59 11/02/17 06:27 5,000 UNIT Acetaminophen (Tylenol Tab) 650 mg Q4H PRN PO 10/22/17 23:30 11/21/17 23:29 Nitroglycerin (Nitrostat Tab) 0.4 mg UD PRN SL 10/22/17 23:30 11/21/17 23:29 Glucose (Glucose 40% Gel) 15-30 GRAMS 15 GRAMS... UD PRN PO 10/22/17 23:30 11/21/17 23:29 Glucose (Glucose Chew Tab) 4-8 Tablets 4 Tabl... UD PRN PO 10/22/17 23:30 11/21/17 23:29 Dextrose (Dextrose 50% 50ML Syringe) 25-50ML OF 50% DW IV FOR... UD PRN IV 10/22/17 23:30 11/21/17 23:29 Glucagon (Glucagon Inj) 1 mg UD PRN SQ 10/22/17 23:30 11/21/17 23:29 Guaifenesin (Mucinex Contr Rel Tab) 600 mg Q12 PO 10/23/17 09:00 11/22/17 08:59 11/02/17 07:46 600 MG Allopurinol (Zyloprim Tab) 300 mg DAILY PO 10/23/17 09:00 11/22/17 08:59 11/02/17 07:48 300 MG Aspirin (Ecotrin Tab) 81 mg DAILY PO 10/23/17 09:00 11/22/17 08:59 11/02/17 07:48 81 MG Atorvastatin Calcium (Lipitor Tab) 80 mg DAILY PO 10/23/17 09:00 11/22/17 08:59 11/02/17 07:48 80 MG Digoxin (Lanoxin Tab) 0.25 mg DAILY@1600 PO 10/23/17 16:00 11/22/17 15:59 11/01/17 16:22 0.25 MG Isosorbide Mononitrate (Imdur Ext Rel Tab) 15 mg QAM PO 10/23/17 09:00 11/22/17 08:59 11/02/17 07:47 15 MG Levothyroxine Sodium (Synthroid Tab) 50 mcg DAILYBB PO 10/24/17 06:00 11/23/17 06:59 11/02/17 06:28 50 MCG Metoprolol Succinate (Toprol Xl Tab) 25 mg BID PO 10/23/17 09:00 11/22/17 08:59 11/02/17 07:47 25 MG Sertraline HCl (Zoloft Tab) 100 mg DAILY PO 10/23/17 09:00 11/22/17 08:59 11/02/17 07:48 100 MG Tramadol HCl (Ultram Tab) 25 mg Q6H PRN PO 10/22/17 23:30 11/21/17 23:29 Prochlorperazine Edisylate 5 mg/ Syringe 5 ml @ 5 mls/min Q6H PRN IV 10/22/17 23:30 11/21/17 23:29 Insulin Aspart (novoLOG ASPART) SLIDING SCALE If C... ACHS SC 10/24/17 07:00 11/22/17 06:59 11/02/17 08:25 13 UNITS Miscellaneous Information (Consult Glycemic Management Pharmacy) 1 ea UD PRN N/A 10/24/17 08:53 11/23/17 08:52 Losartan Potassium (coZAAR TAB) 25 mg QAM PO 10/28/17 09:00 11/27/17 08:59 11/02/17 07:47 25 MG Ipratropium [place] (Atrovent 0.02% 0.5MG/2.5ML Neb) 0.5 mg Q4H PRN INH 10/28/17 17:00 11/26/17 20:59 10/28/17 14:58 0.5 MG Levalbuterol (Xopenex 1.25MG/ 0.5ML Neb) 1.25 mg Q4H PRN INH 10/28/17 17:00 11/26/17 20:59 10/28/17 14:59 1.25 MG Furosemide (Lasix Tab) 80 mg QAM PO 10/30/17 09:00 11/29/17 08:59 11/02/17 07:47 80 MG Insulin Detemir (Levemir Flexpen/ FlexTouch) 17 units BID SC 11/02/17 20:00 12/02/17 19:59 Objective Vital Signs Date Time Temp Pulse Resp B/P (MAP) Pulse Ox O2 Delivery O2 Flow Rate FiO2 11/02/17 08:30 Room Air 11/02/17 07:50 60 11/02/17 07:21 36.5 56 19 148/87 (107) 96 Room Air 11/02/17 00:09 36.5 62 20 151/73 (99) 92 Room Air 11/02/17 00:00 Room Air 11/01/17 20:00 Room Air 11/01/17 16:22 62 11/01/17 16:00 Room Air 11/01/17 14:18 36.3 60 19 101/58 (72) 96 Room Air 11/01/17 12:59 36.5 63 20 96 Room Air Physical Exam General Appearance: no apparent distress Respiratory/Chest: no respiratory distress, no accessory muscle use Cardiovascular: regular rate, rhythm, no edema, no murmur Extremities: + pertinent finding (LLE amputation below knee, multiple fingers bilateral hands are amputated) Laboratory Results Last 24 Hours Test 11/01/17 12:08 11/01/17 16:42 11/01/17 20:37 11/02/17 07:57 Bedside Glucose 164 mg/dl 199 mg/dl 206 mg/dl 184 mg/dl Assessment and Plan 11/02 patient is doing well, no other acute issues to note bronchitis - resolved hypoxic respiratory failure - resolved CHF - back to baseline creatinine at baseline 11/01 saw the patient today, clinically doing good no problems/issues at this time completed antibiotics will continue current diuretic dose ACUTE HYPOXIC RESPIRATORY FAILURE POSSIBLE SECONDARY TO ACUTE BRONCHITIS CXR showed small right pleural effusion and patchy right basilar densities, unchanged. Influenza antigen and pcr negative Procalcitonin elevated No leukocytosis -- wheeze resolved, now on room air completed Doxycycline PO BID x 7 days given Nebs q6h COMPONENT OF ACUTE ON CHRONIC SYSTOLIC CHF, CARDIOMYOPATHY BNP elevated CXR possible CHF given IV Lasix diuresing well so far crea improved resumed usual Lasix 80mg po daily AICD interrogation done Cardio consulted Dr. Perry and Dr. Flynn , cleared for discharge ACUTE RENAL FAILURE Creatine 1.5 on admission Baseline creatine 1 crea back to baseline resumed usual Lasix 80mg daily monitor CHRONIC SYSTOLIC CHF, CARDIOMYOPATHY, EF 15-20% OF LAST YEAR Management as noted above HTN BP improved Continue monitor BP DIABETES TYPE 2 Pharmacy for glycemic control on Lantus BID and Sliding Scale monitor HYPOTHYROIDISM Continue Levothyroxine Stable Ambulatory Dysfunction has prosthesis in LLE due to BKA (+) small wound on the LLE stump- no signs of infection, please monitor PT/OT Fall precaution Depression Continue Sertraline Stable Gout Continue Allopurinol Obesity Counseling on smoking cessation DVT ppx heparin subq given Code status Full code Disposition transition to SNF when medically stable ff up with PCP in SNF ff up with [employer] in 2-3 weeks
[2017-11-02 14:46] VITALS: BP 145/76; PULSE 59; TEMP 36.4; O2SAT 93
[2017-11-02] MEDS ORDERED: INSULIN DETEMIR FLEXPEN/FLEX TOUCH 100 UNITS/ML 3ML SC SCH (20:00)
== END 2017-11-02 15:45 | DRG 202 ==
LOC: C.EDB 18:50 → C.2T 22:49 → ENRESERV 22:56 → C.4E 10-30 18:32
PROVIDERS: ADMIT Internal Medicine; ATTEND Family Medicine
DX: J20.8 Acute bronchitis due to other specified organisms (principal); J96.01 Acute respiratory failure with hypoxia; J44.1 Chronic obstructive pulmonary disease with (acute) exacerbation; I50.22 Chronic systolic (congestive) heart failure; N17.9 Acute kidney failure, unspecified; I25.10 Atherosclerotic heart disease of native coronary artery without angina pectoris; I11.0 Hypertensive heart disease with heart failure; M10.9 Gout, unspecified; E03.9 Hypothyroidism, unspecified; E11.43 Type 2 diabetes mellitus with diabetic autonomic (poly)neuropathy; D64.9 Anemia, unspecified; E11.649 Type 2 diabetes mellitus with hypoglycemia without coma; E87.6 Hypokalemia; E66.9 Obesity, unspecified; F32.9 Major depressive disorder, single episode, unspecified; Z95.810 Presence of automatic (implantable) cardiac defibrillator; Z79.82 Long term (current) use of aspirin; Z89.022 Acquired absence of left finger(s); Z89.512 Acquired absence of left leg below knee; Z79.4 Long term (current) use of insulin; Z83.3 Family history of diabetes mellitus; Z68.32 Body mass index [BMI] 32.0-32.9, adult

== ENCOUNTER → 2017-11-17 | Outpatient (CLI) | payer BC ==
[~2017-11-17] MED LIST changes: +ALBU18002 INH; +ASPI81TA28 PO; +GLYB5TAB8 PO; +HPRIS5M SQ; +LNX25 PO; +LVMIPEN SC; -LVMIPEN SQ; -MCRK20 PO; +MECL-91 PO; +NVLGIPEN SC; -NVLRPUC SQ; -PLV75 PO
[2017-11-17 08:33] LABS: BLOOD UREA NITROGEN 40 mg/dl (7-18); CALCIUM 9.4 mg/dl (8.5-10.1); CARBON DIOXIDE 28 mmol/L (21-32); CREATININE 1.39 mg/dl (0.60-1.40); GLUCOSE 287 mg/dl (70-99); POTASSIUM 4.2 mmol/L (3.5-5.1); SODIUM 134 mmol/L (136-145)
== END ==
LOC: C.LABCC 08:03
PROVIDERS: ATTEND Internal Medicine
DX: E11.9 Type 2 diabetes mellitus without complications (principal)

== ENCOUNTER → 2018-03-22 | Outpatient (CLI) | payer BC, OTHER ==
[~2018-03-22] MED LIST changes: -ALLO100T PO; +ALLO300T2 PO; +AMOX1TAB43 PO; +ASPECOTC PO; -ASPI81TA28 PO; +FURO40TA3 PO; -FURO80TA63 PO; -HPRIS5M SQ; +INSP SC; -ISOS30TA3 PO; +ISOS30TA35 PO; +KFL500 PO; +LVMI SC; -LVMIPEN SC; -MECL-91 PO; +MECL1TAB42 PO; -METO-478 PO; +METO25TA3 PO; -NVLGIPEN SC; +SERT-234 PO; +VANC1CAP3 PO; -ZLF/100 PO
--- NOTE | 2018-03-27 20:15 | HISTORY & PHYSICAL EXAMINATION ---
DATE OF ADMISSION: 03/22/2018 HISTORY OF PRESENT ILLNESS: Rogelio is seen in the [facility]opedic office today in followup. He is status post right small finger MP disarticulation. He notes continued open wound. He notes appropriate amount of pain in the area. PAST MEDICAL HISTORY: 1. Depression. 2. Coronary artery disease. 3. Cardiomyopathy. 4. History of C. difficile. 6. Dyslipidemia. 7. Gout. 8. History of hematuria. 9. Rheumatic fever. 10. Hypertension. 11. Hypothyroidism. 12. History of a lung nodule. 13. Anemia. 14. History of DVT. 15. History of right rib fracture. PAST SURGICAL HISTORY: Includes: 1. Multiple amputations on bilateral upper extremities, some done by me in the past. 2. Left BKA. 3. ICD placement. 4. History of drug-eluting stent 04/2017. MEDICATIONS: Include: 1. Allopurinol. 2. Aspirin. 3. Atorvastatin. 4. Digoxin. 5. Furosemide. 6. Glyburide. 7. Heparin. 8. Humulin. 9. Imdur. 10. Levemir. 11. Levothyroxine. 12. Lovastatin. 13. Meclizine. 14. Metolazone. 15. Albuterol. 16. Sertraline. ALLERGIES: GEMFIBROZIL. SOCIAL HISTORY: , nonsmoker, no alcohol use. Currently disabled, lives in [place]. PHYSICAL EXAMINATION: HEART: Regular rate and rhythm. LUNGS: Clear to auscultation. EXTREMITIES: Hand examination showed open wound about 4 x 2 cm. He has evidence of exposed metacarpal head. He has a scant amount of serous drainage. He has no gross active purulence and no streaking erythema. 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 PLAN: I discussed findings and treatment. I feel the wound is unlikely to heal given the exposed metacarpal head bone. Recommendation is for revision to ray amputation. The risks and benefits have been discussed including, but not limited to, risk of infection, nerve injury, stiffness, loss of motion, failure to improve, etc. Reasonable outcomes and options of treatment were discussed. An explanation of appropriate alternatives to the procedure that may be advantageous were discussed and their risks and benefits, as well as the risks and benefits of not proceeding with treatment. I offered to answer any additional inquiries concerning the treatment involved. All the patient's questions were answered. The patient is agreeable, understanding of the treatment plan and alternatives, and wishes to proceed with the treatment plan. Plan for a surgical intervention at [facility] possibly as an outpatient if he does well for surgery versus overnight stay. We will take cultures and adjust antibiotics as necessary. We will likely leave the ana in for several weeks to allow for wound healing. RENETTA
== END ==
LOC: C.LABCC 18:13
PROVIDERS: ATTEND Internal Medicine
DX: R41.0 Disorientation, unspecified (principal)

== ENCOUNTER → 2018-04-14 | Outpatient (CLI) | payer BC, OTHER ==
[~2018-04-14] MED LIST changes: +ACET-1693 PO; -AMOX1TAB43 PO; +ASCO1CAP3 PO; +DULCOLAX SUPP RE; -GLYB5TAB8 PO; -INSP SC; -KFL500 PO; +MOML PO; +MULT-506 PO; +NVLG SC; +NYSTATIN POWDER TOP; +SODIENE PR; -VANC1CAP3 PO; +[UNRECOGNIZED DRUG - CODE] PO; +[UNRECOGNIZED DRUG - CODE] TOP
[2018-04-14 11:58] LABS: BLOOD UREA NITROGEN 66 mg/dl (7-18); CALCIUM 9.2 mg/dl (8.5-10.1); CARBON DIOXIDE 26 mmol/L (21-32); CREATININE 2.06 mg/dl (0.60-1.40); GLUCOSE 147 mg/dl (70-99); POTASSIUM 3.6 mmol/L (3.5-5.1); SODIUM 140 mmol/L (136-145)
== END ==
LOC: C.LABCC 10:03
PROVIDERS: ATTEND Internal Medicine
DX: R41.0 Disorientation, unspecified (principal)

== ENCOUNTER → 2018-04-16 | Outpatient (CLI) | payer BC, OTHER ==
[2018-04-16 09:02] LABS: BLOOD UREA NITROGEN 66 mg/dl (7-18); CARBON DIOXIDE 22 mmol/L (21-32); CREATININE 1.59 mg/dl (0.60-1.40); GLUCOSE 117 mg/dl (70-99); POTASSIUM 3.8 mmol/L (3.5-5.1); SODIUM 139 mmol/L (136-145)
== END | disposition home or self-care (01) ==
LOC: C.LABCC 08:04
PROVIDERS: ATTEND Internal Medicine
DX: R41.0 Disorientation, unspecified (principal)

== ENCOUNTER → 2018-04-17 | Day surgery (SDC) | payer BC, OTHER ==
--- NOTE | 2018-04-12 12:10 | PAT Medication Instructions ---
Service Date Apr 12, 2018. Current Home Medication List Acetaminophen Tab (Tylenol), 650 MG PO Q6H PRN for RN Albuterol Sulfate (Proair Respiclick), 2 PUFFS INH Q4 PRN for SOB/Wheezing Allopurinol (Zyloprim), 300 MG PO DAILY Ascorbic Acid (Vitamin C), 500 MG PO BID Aspirin (Aspirin), 1 TAB PO DAILY Atorvastatin (Lipitor), 80 MG PO DAILY Digoxin (Digoxin), 0.25 MG PO DAILY Furosemide (Lasix), 40 MG PO BID Insulin Aspart (Novolog), SC SLIDING SCALE Insulin Detemir (Levemir), 20 UNITS SC DAILY Isosorbide Mononitrate Ext Rel (Imdur Ext Rel), 30 MG PO QAM Levothyroxine Sodium (Synthroid), 50 MCG PO QAM Losartan Potassium (Cozaar), 25 MG PO DAILY Magnesium Hydroxide (Milk Of Magnesia), 30 ML PO UD PRN for N Meclizine Hcl (Meclizine Hcl), 1 TAB PO TID Metolazone (Zaroxolyn), 2.5 MG PO DAILY Metoprolol Succ (Toprol Xl) (Toprol-Xl), 25 MG PO BID Multivitamin (Multivitamin), 1 TAB PO QAM Sertraline (Zoloft), 100 MG PO DAILY Sodium Phosphate/Biphosphate (Fleet Enema), 1 EA FL UD PRN for RN Vancomycin Hcl (Vancomycin), 250 MG PO QID Wound Dressings (Tegaderm Alginate Ag Dres), 1 DOSE TOP TID [Dulcolax Supp], 1 DOSE RE UD PRN for RN [Nystatin Powder], 1 DOSE TOP BID Medication Instructions For Your Scheduled Surgery - Continue as directed: Allopurinol (Zyloprim), 300 MG PO DAILY Atorvastatin (Lipitor), 80 MG PO DAILY Digoxin (Digoxin), 0.25 MG PO DAILY Sertraline (Zoloft), 100 MG PO DAILY - Check with surgeon (Dr. Henriquez) and prescribing physician for instructions: Aspirin (Aspirin), 1 TAB PO DAILY - Hold the following medications 24 hours prior to surgery: [Nystatin Powder], 1 DOSE TOP BID - Hold the following medications the morning of surgery: [Dulcolax Supp], 1 DOSE RE UD PRN for RN Sodium Phosphate/Biphosphate (Fleet Enema), 1 EA FL UD PRN for RN Multivitamin (Multivitamin), 1 TAB PO QAM Metolazone (Zaroxolyn), 2.5 MG PO DAILY Magnesium Hydroxide (Milk Of Magnesia), 30 ML PO UD PRN for N Losartan Potassium (Cozaar), 25 MG PO DAILY Insulin Aspart (Novolog), SC SLIDING SCALE Furosemide (Lasix), 40 MG PO BID Ascorbic Acid (Vitamin C), 500 MG PO BID - Take the following medications the morning of surgery with a sip of water: Acetaminophen Tab (Tylenol), 650 MG PO Q6H PRN for RN (okay to take up to 4 hours prior to surgery if needed) Albuterol Sulfate (Proair Respiclick), 2 PUFFS INH Q4 PRN for SOB/Wheezing (if needed) Isosorbide Mononitrate Ext Rel (Imdur Ext Rel), 30 MG PO QAM Levothyroxine Sodium (Synthroid), 50 MCG PO QAM Meclizine Hcl (Meclizine Hcl), 1 TAB PO TID Metoprolol Succ (Toprol Xl) (Toprol-Xl), 25 MG PO BID Vancomycin Hcl (Vancomycin), 250 MG PO QID Wound Dressings (Tegaderm Alginate Ag Dres), 1 DOSE TOP TID - For Insulin Dependent Diabetic patients: Test blood sugar A.M. of surgery. If Insulin Detemir (Levemir) is normally taken at night, continue as directed; If it is normally taken in the MORNING, do the following A.M. day of surgery: - If Blood sugar greater than 150, take half of your regular dose of: Insulin Detemir (Levemir), take 10 units - If blood sugar less than 150, do not take any: Insulin Detemir (Levemir) If you have any questions please call us at [phone] or [phone] or [phone]
[2018-04-12 13:12] VITALS: BMI 32.0
[~2018-04-17] VITALS: Ht 177.8 cm; Wt 102.1 kg
[~2018-04-17] MED LIST changes: +ATROPINE SULFATE 0.1 MG/ML 5ML SYR IV PRN; +BACITRACIN 50000 UNIT VIAL ONE; +CLONIDINE HCL 100 MCG/ML SYRINGE ONE; +EpHEDrine SULFATE INJ 50 MG/ML AMP IV PRN; +EpINEphrine INJ 1MG/ML AMP 1 MG/ML AMP ONE; +FENTANYL CITRATE INJ 50 MCG/1 ML 2 ML VIAL IV PRN; +FENTANYL CITRATE INJ 50 MCG/1 ML 2 ML VIAL ONE; +FLUMAZENIL 0.1 MG/1 ML 10 ML VIAL IV PRN; +HYDROmorphone INJ 2 MG/ML SYR/VIAL IV PRN; +LABETALOL HCL IV 5 MG/ML 20ML IV PRN; +LACTATED RINGER'S 1000ML 1,000 ML IV SCH; +LACTATED RINGER'S 1000ML 500 ML IV SCH; +LIDOCAINE HCL 1% 20 ML VIAL ONE; +LIDOCAINE HCL 2% 2 ML VIAL (20MG/ML) ONE; +MEPERIDINE HCL 25 MG/ML CARP IV PRN; +MIDAZOLAM HCL 1 MG/ML 2ML VIAL ONE; +NALOXONE HCL 0.4 MG/1 ML VIAL/CARP IV PRN; +ONDANSETRON INJ 2 MG/ML 2 ML VIAL IV PRN; +PHENYLEPHRINE 100MCG/ML 5ML SYR IV PRN; +PROPOFOL IV EMULSION 10 MG/ML 20 ML VIAL ONE; +ROPIVACAINE 0.5% 5 MG/ML 30 ML VIAL ONE
[2018-04-17 07:11] VITALS: BP 115/69; PULSE 69; TEMP 36.4; O2SAT 95; Ht 177.8 cm; Wt 102.1 kg
--- NOTE | 2018-04-17 07:24 | History & Physical Bridge Note ---
H&P Re-Evaluation Bridge Note: I have examined the patient, reviewed the History & Physical and in the interval since the performance of the History & Physical I have noted the following changes of clinical significance: will plan for right hand ray amputation of 5th digit r/b discussed No changes noted
--- NOTE | 2018-04-17 07:40 | Discharge Instructions ---
Discharge Instructions Date of Service Apr 17, 2018. Visit Reason for Visit: Infected Open Wound Of Right Hand Discharge Discharge Diagnosis / Problem: right wrist ray amputation of 5th digit Discharge Goals Goal(s): Decrease discomfort Medications Restart Stopped Medication(s): may restart all stopped medications Activity Recommendations Activity Limitations: as noted below Lifting Limitations: no more than 5 pounds Exercise/Sports Limitations: rest today Shower/Bathe: keep incision dry Weightbearing Status: Left weightbearing (as tolerated), Right weightbearing ( as tolerated) Anesthesia . Post Anesthesia Instructions: If you have had General Anesthesia or IV Sedation: * Do not drive today. * Resume driving when surgeon permits. * Do not make important decisions or sign legal documents today. * Call surgeon for: 1. Temperature elevations greater than 101 degrees F. 2. Uncontrollable pain. 3. Excessive bleeding. 4. Persistent nausea and vomiting. 5. Medication intolerance (nausea, vomiting or rash). * For nausea and vomiting use only clear liquids such as: tea, soda, bouillon until nausea subsides, then gradually increase diet as tolerated. * If you have any concerns or questions, call your surgeon's office. If physician is unavailable and it is an emergency, call 911 or go to the nearest emergency room. . Instructions / Follow-Up Instructions / Follow-Up UOC : Hand /Wrist Instr. ACTIVITY RECOMMENDATIONS: Avoid lifting anything until your first post-operative visit. Keep your hand elevated above the level of your heart at all times. Elbow should be above the level of the heart, and hand kept above the elbow. ~ You may use a sling if necessary. Ice the affected extremity a minimum of 3-4 times a day, 20 minutes each time. SPECIAL CARE INSTRUCTIONS: * Your bandage should be left in place until seen in the office. * Some drainage onto the dressing may occur.~ This is normal. * If the bandage feels excessively tight, you may loosen the elastic bandage.~ Then call the physician's office for further instructions. * You should move your fingers regularly, making a fist and extending them, unless otherwise instructed. SPECIAL PRECAUTIONS: * If you notice increased drainage, fever over 101 degrees F. or severe, unremitting pain, call your physician/office at . * You may have been prescribed pain medication.~ If you experience nausea and/ or skin rash, discontinue this medication and contact our office for an alternative medication. Pain Medication: a. You will be prescribed pain medication upon discharge that should last till your first post-operative appointment. b. You may also take Advil, Ibuprofen or Aleve between medication doses if you do not have any contraindication to taking them. c. You may also take Advil, Ibuprofen, Aleve or Tylenol in place of your pain medication if the pain is tolerable. FOLLOW UP VISIT: If appointment is not already scheduled: Please call [facility] to make a follow-up appointment after your surgery at . Follow up appointment with Dr. Henriquez or his PA: 3 weeks may remove dressing in 5 days and reapply a dressing Diet Recommendations Recommended Home Diet: no limitations Pending Studies Studies pending at discharge: no Medical Emergencies . Who to Call and When: Medical Emergencies: If at any time you feel your situation is an emergency, please call 911 immediately. . Non-Emergent Contact Non-Emergency issues call your: Primary Care Provider . . "Provider Documentation" section prepared by Carlton Tan. . [place] Drug Monitoring Program Search Results: no issues identified
--- NOTE | 2018-04-17 09:57 | [facility] Post Operative Brief Note ---
Immediate Operative Summary Operative Date Apr 17, 2018. Pre-Operative Diagnosis Open Wound Right Hand Post-Operative Diagnosis Open Wound Right Hand Procedure(s) Performed Right Hand, Right 5th Metacarpal Ray Amputation Surgeon Dr. Elizabeth Henriquez Plant Controller Surgeon(s) none Estimated Blood Loss 10 ml Findings Consistent with Post-Op Diagnosis Specimens Microbiology: Cultures Open wound, right hand - aerobic, anaerobic, gram stain, TB, Fungal taken at 0934, sent at 0952 Drains None Anesthesia Type MAC Spinal Regional Complication(s) none Disposition Accompanied Pt To Recover: no Disposition: Recovery Room / PACU Overlapping Procedure I was immediately available: during the entire case
--- NOTE | 2018-04-17 11:32 | Anesthesiology Progress Note ---
Anesthesia Post Op Note Date & Time Apr 17, 2018 at 11:31 Vital Signs Pain Intensity: 0 Vital Signs Past 12 Hours Date Time Temp Pulse Resp B/P (MAP) Pulse Ox O2 Delivery O2 Flow Rate FiO2 04/17/18 11:10 70 12 128/71 100 Nasal Cannula 2 04/17/18 11:00 70 16 145/77 100 Nasal Cannula 2 04/17/18 10:50 70 13 118/87 100 Nasal Cannula 4 04/17/18 10:43 70 14 111/64 100 Nasal Cannula 4 04/17/18 10:40 70 22 96/59 100 Oxymask 10 04/17/18 10:30 70 13 125/64 100 Oxymask 10 04/17/18 10:20 70 13 101/59 100 Oxymask 10 04/17/18 10:10 36 71 16 139/71 100 Oxymask 10 04/17/18 07:11 36.4 69 20 115/69 (84) 95 Room Air Notes Mental Status: alert / awake / arousable, participated in evaluation Pt Amnestic to Procedure: Yes Nausea / Vomiting: adequately controlled Pain: adequately controlled Airway Patency, RR, SpO2: stable & adequate BP & HR: stable & adequate Hydration State: stable & adequate Anesthetic Complications: no major complications apparent
[2018-04-17 11:40] VITALS: BP 140/68; PULSE 69; TEMP 36.5; O2SAT 100
[2018-04-17 12:10] VITALS: BP 104/56; PULSE 70; TEMP 36.5; O2SAT 100
--- NOTE | 2018-04-17 12:23 | OPERATIVE REPORT ---
DATE OF OPERATION: 04/17/2018 PREOPERATIVE DIAGNOSIS: Right hand open wound, status post MP disarticulation. PROCEDURE: Right fifth metacarpal ray amputation. SURGEON: Catracho Henriquez MD SCROLL MACHINE OPERATOR: None. ANESTHESIA: Regional block with sedation. INDICATIONS: A gentleman status post attempted MP disarticulation. He presents after multiple amputations of the upper extremity. He presents with open wound. The risks and benefits have been discussed including, but not limited to, risk of infection, nerve injury, stiffness, loss of motion, failure to improve, etc. Reasonable outcomes and options of treatment were discussed. An explanation of appropriate alternatives to the procedure that may be advantageous were discussed and their risks and benefits, as well as the risks and benefits of not proceeding with treatment. I offered to answer any additional inquiries concerning the treatment involved. All the patient's questions were answered. The patient is agreeable, understanding of the treatment plan and alternatives, and wishes to proceed with the treatment plan. DESCRIPTION OF PROCEDURE: Cultures were taken in the area of open wound. I made a longitudinal incision over the dorsal aspect of the metacarpal. Dissection was carried down through the skin and subcutaneous tissues. The extension was identified and this was transected and removed. I performed debridement of any devitalized tissue in the area. The metacarpal periosteum was sharply incised and I placed 2 Hohmann around the metacarpal base. With a sagittal saw, I performed a cut in the metacarpal base and the metacarpal was then removed in full completing a fifth metacarpal ray amputation. Incision was copiously irrigated, tourniquet was let down, hemostasis was obtained with bipolar electrocautery and hemostasis was adequate. The deeper layer was closed with 5-0 Monocryl. Skin was closed with 4-0 Vicryl Rapide and skin was closed with ana and I was able to obtain a complete tension free closure. Prior to this, area was irrigated with 2 L of normal saline. The patient was placed in a soft dressing and sent to the PACU in a stable condition. I attest to the content of the Intraoperative Record and any orders documented therein. Any exception s are noted below.
[2018-04-17 12:40] VITALS: BP 124/65; PULSE 70; TEMP 36.5; O2SAT 96
== END | disposition home or self-care (01) ==
LOC: C.ACU 06:08
PROVIDERS: ATTEND Orthopaedic Surgery
DX: S61.206A Unspecified open wound of right little finger without damage to nail, initial encounter (principal); X58.XXXA Exposure to other specified factors, initial encounter; J44.9 Chronic obstructive pulmonary disease, unspecified; I25.10 Atherosclerotic heart disease of native coronary artery without angina pectoris; I12.9 Hypertensive chronic kidney disease with stage 1 through stage 4 chronic kidney disease, or unspecified chronic kidney disease; E11.40 Type 2 diabetes mellitus with diabetic neuropathy, unspecified; N18.3 Chronic kidney disease, stage 3 (moderate); E66.9 Obesity, unspecified; Z68.32 Body mass index [BMI] 32.0-32.9, adult; Z89.512 Acquired absence of left leg below knee

== ENCOUNTER → 2018-04-18 | Outpatient (CLI) | payer BC, OTHER ==
[~2018-04-18] MED LIST changes: -ATROPINE SULFATE 0.1 MG/ML 5ML SYR IV PRN; -BACITRACIN 50000 UNIT VIAL ONE; -CLONIDINE HCL 100 MCG/ML SYRINGE ONE; -EpHEDrine SULFATE INJ 50 MG/ML AMP IV PRN; -EpINEphrine INJ 1MG/ML AMP 1 MG/ML AMP ONE; -FENTANYL CITRATE INJ 50 MCG/1 ML 2 ML VIAL IV PRN; -FENTANYL CITRATE INJ 50 MCG/1 ML 2 ML VIAL ONE; -FLUMAZENIL 0.1 MG/1 ML 10 ML VIAL IV PRN; -HYDROmorphone INJ 2 MG/ML SYR/VIAL IV PRN; -LABETALOL HCL IV 5 MG/ML 20ML IV PRN; -LACTATED RINGER'S 1000ML 1,000 ML IV SCH; -LACTATED RINGER'S 1000ML 500 ML IV SCH; -LIDOCAINE HCL 1% 20 ML VIAL ONE; -LIDOCAINE HCL 2% 2 ML VIAL (20MG/ML) ONE; -MEPERIDINE HCL 25 MG/ML CARP IV PRN; -MIDAZOLAM HCL 1 MG/ML 2ML VIAL ONE; -NALOXONE HCL 0.4 MG/1 ML VIAL/CARP IV PRN; -ONDANSETRON INJ 2 MG/ML 2 ML VIAL IV PRN; -PHENYLEPHRINE 100MCG/ML 5ML SYR IV PRN; -PROPOFOL IV EMULSION 10 MG/ML 20 ML VIAL ONE; -ROPIVACAINE 0.5% 5 MG/ML 30 ML VIAL ONE
[2018-04-18 08:46] LABS: BLOOD UREA NITROGEN 67 mg/dl (7-18); CARBON DIOXIDE 28 mmol/L (21-32); CREATININE 1.64 mg/dl (0.60-1.40); GLUCOSE 211 mg/dl (70-99); POTASSIUM 3.8 mmol/L (3.5-5.1); SODIUM 139 mmol/L (136-145)
== END ==
LOC: C.LABCC 07:57
PROVIDERS: ATTEND Internal Medicine
DX: I50.9 Heart failure, unspecified (principal); N17.9 Acute kidney failure, unspecified

== ENCOUNTER 2019-04-10 20:32 | Inpatient (IN) ==
[2019-04-10] MEDS ORDERED: SODIUM CHLORIDE 0.9% 500 ML IV ONE ×2 (20:51→23:51)
[2019-04-10 21:41] LABS: Basophils # (auto) 0.01 K/uL (0-0.2); Basophils % (auto) 0.1 %; Eosinophils # (auto) 0.16 K/uL (0-0.5); Eosinophils % (auto) 1.2 %; Hematocrit (blood only) 34.3 % (42-52); Immature Granulocytes # (auto) 0.06 K/uL (0.00-0.02); Immature Granulocytes % (auto) 0.4 %; Lymphocytes % (auto) 5.1 %; Mean Corpuscular Volume 84.3 fL (80-100); Mean Platelet Volume 10.4 fL (7.4-10.4); Monocytes # (auto) 0.96 K/uL (0.11-0.59); Monocytes % (auto) 6.9 %; Neutrophils # (auto) 11.93 K/uL (1.4-6.5); Neutrophils % (auto) 86.3 %; Platelet Count 168 K/uL (130-400); RDW Coefficient of Variation 15.4 % (11.5-14.5); RDW Standard Deviation 47.6 fL (36.4-46.3); Red Blood Count 4.07 M/uL (4.7-6.1); White Blood Count 13.82 K/uL (4.8-10.8)
--- NOTE | 2019-04-10 21:53 | XRay Report ---
XR chest 1V portable HISTORY: Sepsis COMPARISON: Chest 02/12/2018. FINDINGS: The heart remains enlarged. Left-sided pacemaker/defibrillator is noted. No pneumothorax. N o pleural effusions. No evidence for pulmonary edema. Increased markings at the right lung base favor atelectasis. Otherwise, new focal lung consolidations to suggest pneumonia. IMPRESSION: Increased markings at the right lung base favor atelectasis. This is similar to the prior study. Stab le mild cardiomegaly. Electronically signed by: Man Hamlin M.D. 04/10/2019 9:51 PM
[2019-04-10 21:56] LABS: INR 1.1 (0.9-1.1); Partial Thromboplastin Ratio 1.1; Partial Thromboplastin Time 30.8 Seconds (21.0-31.0); Prothrombin Time 10.8 Seconds (9.0-12.0)
[2019-04-10 21:57] LABS: Bilirubin Direct 0.3 mg/dl (0-0.2); Magnesium 2.6 mg/dl (1.8-2.4); Phosphorus 3.6 mg/dl (2.5-4.9)
[2019-04-10 22:34] LABS: Appearance Urine Cloudy (Clear); Bacteria Urine Automated 4+ (Negative); Bilirubin Urine Negative (Negative); Blood Urine 1+ (Negative); Color Urine Dark Yellow; Glucose Urine UA Negative (Negative); Ketones Urine Negative (Negative); Leukocyte Esterase Urine 2+ (Negative); Nitrite Urine Negative (Negative); RBC Urine Automated 0-4 /hpf (0-4); Specific Gravity Urine 1.021 (1.000-1.030); Urobilinogen Urine Negative (Negative); WBC Urine Automated >30 /hpf (0-5); pH Urine 8.5 (4.5-7.5)
[2019-04-10 22:38] LABS: Protein Urine 3+ (Negative)
[2019-04-10] MEDS ORDERED: cefTRIAXone SODIUM 2,000 MG/70 ML BAG IV STA (23:04)
[2019-04-10 23:08] LABS: Albumin Level 2.5 gm/dl (3.4-5.0); Est GFR (African American) 26.2; Est GFR (Non-African American) 22.6; Potassium 3.6 mmol/L (3.5-5.1)
[2019-04-10 23:11] LABS: Albumin Globulin Ratio 0.6 (0.9-2); Bilirubin,Total 0.7 mg/dl (0.2-1); Globulin 3.9 gm/dl (2.5-4.0); Total Protein 6.4 gm/dl (6.4-8.2)
--- NOTE | 2019-04-11 00:19 | Emergency Department Note ---
Entered by Grayson Collins acting as a scribe for Hubert Glover MD History of Present Illness General Chief complaint: Altered Mental Status Stated complaint: AMS, Time Seen by Provider: 04/10/19 20:35 Source: patient and RN notes reviewed Limitations: altered mental status History of Present Illness Onset (ago): week(s) (for the past week) 1 Location: left and right Pain Consistency: + constant Quality: + other (tiredness) Associated symptoms: + other (+not drinking as much as normal ); no fever/chills The patient is a 68 year old male who presents to the Emergency Room with complaints of being constantly tired for the past week, per the registered nurse. The RN states that the patient has been eating fine but not drinking as much as normal. The RN also notes the patient has been hypotensive, and the RN reports the patient is not showing a fever. The HPI is limited secondary to patient's altered mental status. Home Medications Home Medications Medication Instructions Recorded Confirmed Type acetaminophen [Tylenol Arthritis 650 mg PO QPM 04/10/19 04/10/19 History Pain] acetaminophen [Tylenol] 650 mg PO Q6 PRN 04/10/19 04/10/19 History allopurinol [Zyloprim] 300 mg PO DAILY 04/10/19 04/10/19 History aspirin 325 mg PO DAILY 04/10/19 04/10/19 History atorvastatin [Lipitor] 80 mg PO DAILY 04/10/19 04/10/19 History insulin aspart U-100 [Novolog See Rx Instructions .ROUTE .COMPLEX 04/10/19 04/10/19 History U-100 Insulin aspart] insulin detemir U-100 [Levemir 35 unit SUBCUT QAM 04/10/19 04/10/19 History U-100 Insulin] isosorbide mononitrate 30 mg PO DAILY 04/10/19 04/10/19 History levothyroxine [Synthroid] 100 mcg PO DAILY 04/10/19 04/10/19 History losartan [Cozaar] 25 mg PO DAILY 04/10/19 04/10/19 History magnesium hydroxide [Milk of 30 ml PO UD PRN 04/10/19 04/10/19 History Magnesia] meclizine 12.5 mg PO TID 04/10/19 04/10/19 History metolazone 2.5 mg PO WK 04/10/19 04/10/19 History metoprolol succinate [Toprol XL] 50 mg PO DAILY 04/10/19 04/10/19 History risperidone [Risperdal] 0.5 mg PO QPM 04/10/19 04/10/19 History sertraline [Zoloft] 100 mg PO DAILY 04/10/19 04/10/19 History Allergies Allergy/AdvReac Type Severity Reaction Status Date / Time gemfibrozil Allergy Unknown Unknown Verified 04/10/19 22:56 Past Med/Surg History Medical History HTN (hypertension) (Chronic) DM type 2 (diabetes mellitus, type 2) (Chronic) Hypothyroidism (Chronic) Dyslipidemia (Chronic) Gout (Chronic) Biventricular ICD (implantable cardioverter-defibrillator) in place (Chronic) Lung nodule (Chronic) Adjustment disorder with depressed mood (Chronic) Diabetic retinopathy (Chronic) Nonischemic cardiomyopathy (Chronic) CAD (coronary artery disease) (Chronic) "s/p stent to LAD in 04/2014" Chronic systolic CHF (congestive heart failure) (Chronic) On 09/07/15 13:04 Maren Barry wrote "echo 10/08/14- LV cavity size moderately enlarged, mild concentric LVH, diffuse moderate LV hypokinesis with superimposed more severe hypokinesis/akinesis involving the mid and apical inferior wall, anterior septum, and LV apex. LV apex is akinetic. 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 (Acute) Surgical History Hx of BKA (Chronic) "left" History of implantable cardioverter-defibrillator (ICD) placement (Chronic) S/P coronary artery stent placement (Chronic) "CLAUDINE to LAD in 04/2014" Family History Other No significant family history Social History Preferred Language: Faroese Communication Ability: Effective Dining Manager Required: No Beliefs That Will Affect Care: None Current Living Situation: Detention Other Information That Helps Us Care for You: No Feels Safe at Home: Yes Safety Concerns: Feels Safe At This Time Smoking Status: Never smoker Hx Alcohol Use: No Review of Systems See HPI for pertinent positives & negatives. Unobtainable due to cognitive status Physical Exam Vital Signs Vital Signs - 24 hr 04/10/19 20:38 04/10/19 20:44 04/10/19 20:48 Temperature 36.5 C Temperature Source Oral Sepsis Recent Fever Within 48 Hours No Sepsis Action Taken by Nursing No Action Required Pulse Rate 73 73 71 Pulse Rate from SpO2 Sensor 64 67 Respiratory Rate 20 16 19 Respiratory Effort / Characteristics Non-Labored Respiratory Depth Normal Blood Pressure 97/62 L 97/62 L Blood Pressure Mean 73 73 Pulse Oximetry 91 98 93 Oxygen Delivery Method Room Air 04/10/19 21:00 04/10/19 21:11 04/10/19 21:15 Temperature Temperature Source Sepsis Recent Fever Within 48 Hours Sepsis Action Taken by Nursing Pulse Rate 72 56 L Pulse Rate from SpO2 Sensor Respiratory Rate 18 17 Respiratory Effort / Characteristics Respiratory Depth Blood Pressure 107/62 Blood Pressure Mean 77 Pulse Oximetry Oxygen Delivery Method Room Air 04/10/19 21:30 04/10/19 21:33 04/10/19 22:00 Temperature Temperature Source Sepsis Recent Fever Within 48 Hours Sepsis Action Taken by Nursing Pulse Rate 81 72 87 Pulse Rate from SpO2 Sensor 88 Respiratory Rate 21 21 20 Respiratory Effort / Characteristics Respiratory Depth Blood Pressure 105/43 L 105/51 L Blood Pressure Mean 63 69 Pulse Oximetry 93 Oxygen Delivery Method 04/10/19 22:30 04/10/19 22:31 04/10/19 22:33 Temperature Temperature Source Sepsis Recent Fever Within 48 Hours Sepsis Action Taken by Nursing Pulse Rate 87 87 88 Pulse Rate from SpO2 Sensor Respiratory Rate 22 18 17 Respiratory Effort / Characteristics Respiratory Depth Blood Pressure 91/48 L Blood Pressure Mean 62 Pulse Oximetry Oxygen Delivery Method 04/10/19 22:37 04/10/19 23:00 04/10/19 23:15 Temperature Temperature Source Sepsis Recent Fever Within 48 Hours Sepsis Action Taken by Nursing Pulse Rate 89 90 73 Pulse Rate from SpO2 Sensor Respiratory Rate 25 H 23 17 Respiratory Effort / Characteristics Respiratory Depth Blood Pressure 126/66 112/46 L Blood Pressure Mean 86 68 Pulse Oximetry Oxygen Delivery Method 04/10/19 23:30 04/10/19 23:31 04/11/19 00:00 Temperature Temperature Source Sepsis Recent Fever Within 48 Hours Sepsis Action Taken by Nursing Pulse Rate 72 76 70 Pulse Rate from SpO2 Sensor Respiratory Rate 20 20 21 Respiratory Effort / Characteristics Respiratory Depth Blood Pressure 128/64 Blood Pressure Mean 85 Pulse Oximetry Oxygen Delivery Method 04/11/19 00:23 04/11/19 00:24 04/11/19 00:30 Temperature Temperature Source Sepsis Recent Fever Within 48 Hours Sepsis Action Taken by Nursing Pulse Rate 71 71 73 Pulse Rate from SpO2 Sensor 66 71 69 Respiratory Rate 21 19 16 Respiratory Effort / Characteristics Respiratory Depth Blood Pressure 111/59 L Blood Pressure Mean 76 Pulse Oximetry 95 95 94 Oxygen Delivery Method Room Air 04/11/19 00:31 04/11/19 01:00 04/11/19 01:01 Temperature Temperature Source Sepsis Recent Fever Within 48 Hours Sepsis Action Taken by Nursing Pulse Rate 75 79 82 Pulse Rate from SpO2 Sensor 96 H 81 Respiratory Rate 17 17 18 Respiratory Effort / Characteristics Respiratory Depth Blood Pressure 121/66 120/84 Blood Pressure Mean 84 96 Pulse Oximetry 94 93 96 Oxygen Delivery Method GENERAL: Awake, alert, chronically ill-appearing, in no distress HENT: Normocephalic, atraumatic. Oropharynx with dry mucous membranes and otherwise unremarkable. EYES: Normal conjunctiva. Sclera non-icteric. NECK: Supple. No nuchal rigidity. FROM. No JVD. RESPIRATORY: CTAB. CARDIAC: Regular rate, normal rhythm. Extremities warm and well perfused. Pulses equal. ABDOMEN: Soft, non-distended. No tenderness to palpation. No rebound or guarding. No masses. RECTAL: Deferred. MUSCULOSKELETAL: Chest examination reveals no tenderness. The back is symmetrical on inspection without obvious abnormality. There is no CVA tenderness to palpation. No joint edema. LOWER EXTREMITIES: Left BKA. No edema. No discoloration. NEURO: Normal sensorium. No sensory or motor deficits noted. Mild confusion. Alert to self and place. SKIN: No rash or jaundice noted. Course 2047: Past medical records reviewed. The patient was evaluated in room A2. A complete history and physical exam was performed. 2350: I paged the hospitalist on duty to discuss the patient's case. 0120: Case was discussed with general surgery on-call, Dr. Rain, and agrees with plan for admission here with admission to medicine for medical optimization and antibiotics. He will be available for inpatient consultation. Administered Medications Sodium Chloride (Nss) 500 mls @ 125 mls/hr IV .Q4H ONE Stop: 04/11/19 03:50 Last Infusion: 04/11/19 03:24 Dose: 0 mls/hr Documented by: [id number] Admin: 04/11/19 00:23 Dose: 125 mls/hr Documented by: [id number] Piperacillin Sod/Tazobactam Sod (Zosyn) 4.5 gm in 120 mls @ 30 mls/hr IV NOW ONE Stop: 04/11/19 05:04 Last Infusion: 04/11/19 03:25 Dose: 0 mls/hr Documented by: [id number] Admin: 04/11/19 01:09 Dose: 30 mls/hr Documented by: [id number] Vancomycin HCl 2,000 mg/ (Sodium Chloride) 540 mls @ 200 mls/hr IV NOW ONE; Protocol Stop: 04/11/19 04:07 Last Admin: 04/11/19 02:26 Dose: 200 mls/hr Documented by: [id number] Discontinued Medications Sodium Chloride (Nss) 500 mls @ 999 mls/hr IV .Q31M ONE Stop: 04/10/19 21:21 Last Infusion: 04/10/19 22:14 Dose: 0 mls/hr Documented by: [id number] Admin: 04/10/19 21:34 Dose: 999 mls/hr Documented by: [id number] Ceftriaxone Sodium (Rocephin) 2,000 mg in 70 mls @ 140 mls/hr IV NOW STA Stop: 04/10/19 23:33 Last Infusion: 04/10/19 23:46 Dose: 0 mls/hr Documented by: [id number] Admin: 04/10/19 23:14 Dose: 140 mls/hr Documented by: [id number] Medical Decision Making Differential Diagnosis Differential diagnosis: Etiologies such as metabolic, infection, hypo/hyperglycemia, electrolyte abnormalities, cardiac sources, intracerebral event, toxicologic, neurologic, as well as others were entertained. Medical Records Attestation: I reviewed the patient's medical records. Home Medications Current Medication List: was personally reviewed by me Laboratory Data Attestation: I reviewed the patient's lab results. Result diagrams: 04/10/19 21:28 04/10/19 21:28 Lab Results 04/10/19 04/10/19 04/10/19 Range/Units 21:28 21:28 21:28 WBC 13.82 H (4.8-10.8) K/uL RBC 4.07 L (4.7-6.1) M/uL Hgb 12.0 L (14.0-18.0) g/dL Hct 34.3 L (42-52) % MCV 84.3 (80-100) fL MCH 29.5 (25-34) pg MCHC 35.0 (32-36) g/dL RDW Std Deviation 47.6 H (36.4-46.3) fL RDW Coeff of Bennett 15.4 H (11.5-14.5) % Plt Count 168 (130-400) K/uL MPV 10.4 (7.4-10.4) fL Immature Gran % (Auto) 0.4 % Neut % (Auto) 86.3 % Lymph % (Auto) 5.1 % [place] % (Auto) 6.9 % Eos % (Auto) 1.2 % Baso % (Auto) 0.1 % Immature Gran # (Auto) 0.06 H (0.00-0.02) K/uL Neut # (Auto) 11.93 H (1.4-6.5) K/uL Lymph # (Auto) 0.70 L (1.2-3.4) K/uL [place] # (Auto) 0.96 H (0.11-0.59) K/uL Eos # (Auto) 0.16 (0-0.5) K/uL Baso # (Auto) 0.01 (0-0.2) K/uL PT 10.8 (9.0-12.0) Seconds INR 1.1 (0.9-1.1) APTT 30.8 (21.0-31.0) Seconds PTT Ratio 1.1 Sodium 140 (136-145) mmol/L Potassium 3.6 (3.5-5.1) mmol/L Chloride 105 (98-107) mmol/L Carbon Dioxide 28 (21-32) mmol/L Anion Gap 7.0 (3-11) BUN 116 H (7-18) mg/dl Creatinine 2.76 H (0.6-1.4) mg/dl Est Cr Clr Drug Dosing 30.0 ml/min Est GFR ( Amer) 26.2 Est GFR (Non-Af Amer) 22.6 BUN/Creatinine Ratio 42.0 H (10-20) Glucose 222 H (70-99) mg/dl Lactate (0.4-2.0) mmol/L Calcium 9.0 (8.5-10.1) mg/dl Phosphorus (2.5-4.9) mg/dl Magnesium (1.8-2.4) mg/dl Total Bilirubin 0.7 (0.2-1) mg/dl Direct Bilirubin (0-0.2) mg/dl AST 139 H (15-37) U/L ALT 129 H (12-78) U/L Alkaline Phosphatase 501 H (45-117) U/L Total Protein 6.4 (6.4-8.2) gm/dl Albumin 2.5 L (3.4-5.0) gm/dl Globulin 3.9 (2.5-4.0) gm/dl Albumin/Globulin Ratio 0.6 L (0.9-2) Urine Color Urine Appearance (Clear) Urine pH (4.5-7.5) Ur Specific [place] (1.000-1.030) Urine Protein (Negative) Urine Glucose (UA) (Negative) Urine Ketones (Negative) Urine Blood (Negative) Urine Nitrite (Negative) Urine Bilirubin (Negative) Urine Urobilinogen (Negative) Ur Leukocyte Esterase (Negative) Urine WBC (Auto) (0-5) /hpf Urine RBC (Auto) (0-4) /hpf U Hyaline Cast (Auto) (0-5) /lpf U Epithel Cells (Auto) (0-5) /lpf Urine Bacteria (Auto) (Negative) Granular Casts (0) /lpf 04/10/19 04/10/19 04/10/19 Range/Units 21:28 21:28 21:55 WBC (4.8-10.8) K/uL RBC (4.7-6.1) M/uL Hgb (14.0-18.0) g/dL Hct (42-52) % MCV (80-100) fL MCH (25-34) pg MCHC (32-36) g/dL RDW Std Deviation (36.4-46.3) fL RDW Coeff of Bennett (11.5-14.5) % Plt Count (130-400) K/uL MPV (7.4-10.4) fL Immature Gran % (Auto) % Neut % (Auto) % Lymph % (Auto) % [place] % (Auto) % Eos % (Auto) % Baso % (Auto) % Immature Gran # (Auto) (0.00-0.02) K/uL Neut # (Auto) (1.4-6.5) K/uL Lymph # (Auto) (1.2-3.4) K/uL [place] # (Auto) (0.11-0.59) K/uL Eos # (Auto) (0-0.5) K/uL Baso # (Auto) (0-0.2) K/uL PT (9.0-12.0) Seconds INR (0.9-1.1) APTT (21.0-31.0) Seconds PTT Ratio Sodium (136-145) mmol/L Potassium (3.5-5.1) mmol/L Chloride (98-107) mmol/L Carbon Dioxide (21-32) mmol/L Anion Gap (3-11) BUN (7-18) mg/dl Creatinine (0.6-1.4) mg/dl Est Cr Clr Drug Dosing ml/min Est GFR ( Amer) Est GFR (Non-Af Amer) BUN/Creatinine Ratio (10-20) Glucose (70-99) mg/dl Lactate 1.1 (0.4-2.0) mmol/L Calcium (8.5-10.1) mg/dl Phosphorus 3.6 (2.5-4.9) mg/dl Magnesium 2.6 H (1.8-2.4) mg/dl Total Bilirubin (0.2-1) mg/dl Direct Bilirubin 0.3 H (0-0.2) mg/dl AST (15-37) U/L ALT (12-78) U/L Alkaline Phosphatase (45-117) U/L Total Protein (6.4-8.2) gm/dl Albumin (3.4-5.0) gm/dl Globulin (2.5-4.0) gm/dl Albumin/Globulin Ratio (0.9-2) Urine Color Dark Yellow Urine Appearance Cloudy A (Clear) Urine pH 8.5 H (4.5-7.5) Ur Specific [place] 1.021 (1.000-1.030) Urine Protein 3+ H (Negative) Urine Glucose (UA) Negative (Negative) Urine Ketones Negative (Negative) Urine Blood 1+ H (Negative) Urine Nitrite Negative (Negative) Urine Bilirubin Negative (Negative) Urine Urobilinogen Negative (Negative) Ur Leukocyte Esterase 2+ H (Negative) Urine WBC (Auto) >30 H (0-5) /hpf Urine RBC (Auto) 0-4 (0-4) /hpf U Hyaline Cast (Auto) 10-30 H (0-5) /lpf U Epithel Cells (Auto) 10-20 H (0-5) /lpf Urine Bacteria (Auto) 4+ H (Negative) Granular Casts 5-10 H (0) /lpf Imaging Data Radiologist's Impression: Radiology results as stated below per my review and the radiologist's interpretation: XR chest 1V portable HISTORY: Sepsis COMPARISON: Chest 02/12/2018. FINDINGS: The heart remains enlarged. Left-sided pacemaker/defibrillator is noted. No pneumothorax. No pleural effusions. No evidence for pulmonary edema. Increased markings at the right lung base favor atelectasis. Otherwise, new focal lung consolidations to suggest pneumonia. IMPRESSION: Increased markings at the right lung base favor atelectasis. This is similar to the prior study. Stable mild cardiomegaly. Electronically signed by: Man Hamlin M.D. 04/10/2019 9:51 PM PreliminaryFindingsOnly See Final Report For Complete Findings CT ABDOMEN & PELVIS Without Contrast: 01/19/2017. Large irregular gallbladder with gallstones near the gallbladder neck. Lobular fluid around it and some stranding. Fluid mayrepresent loculated pericholecystic fluid, or small pericholecystic abscesses. Possible disruption of the gallbladder wall. Series 2 image 30. Findings mayrepresent acute gangrenous cholecystitis. No gaswithin the gallbladder or in the wall. Normal appendix. No free air, no bowel obstruction. Apparent wall thickening of most of the colon. Likelydue to partial distention. DDX colitis. Bilateral perinephric stranding. Nonspecific. DDX medical renal disease, infection. No hydronephrosis or obstructing calculus. Although the bladder is partiallydistended, there appears to be diffuse bladder wall thickening. Correlate for cystitis and consider follow-up to exclude malignancy. Enlarged prostate. Multiple small and borderline enlarged retroperitoneal nodes. Mildlyincreased. Pacemaker lead. Small amount pericardial fluid along the right and left heart borders. Bibasilar atelectasis. Multiple small calcified granulomas bilaterally. 2 cmleft lower lobe lung nodule with calcifications, similar size to the prior. Today, there is a small air- fluid level within it. Attention on follow-up. Old right lower rib fractures as seen on the prior. Nonunion of some of the fractures. Degenerative changes of the spine. Soft tissue densities in the anterior abdominal wall with some calcifications. Mayrelate to prior injections. Radiologist: True Lozano M.D. Study ready at 00:05 and initial results transmitted at 01:08 Critical Value Communications Clear Time Type Notes 04/11/19 01:03 Call Doctor Regarding Emphysematous/gangrenous cholecystitis , called dr. Glover on 04/11 01:03 (-04:00) ECG Data Attestation: I personally reviewed and interpreted this ECG as follows: Indication: weakness Rate (beats per minute): 69 Findings: + other (atrial paced rhythm, no overt acute ischemia ) and + PVC Blood Pressure Blood Pressure Findings: Normal blood pressure MDM Narrative The patient is a pleasant 68-year-old gentleman with a past medical history of C. difficile, acute systolic heart failure status post ICD placement, recurrent UTIs, metabolic encephalopathy, hypertension, CKD, diabetes, osteomyelitis with history of amputations who presents emergency department from [facility] for worsening confusion and generalized weakness with low blood pressure per hpi. Patient's at the bedside confirms patient is not at his baseline and more confused. On arrival the patient is chronically ill-appearing but no acute distress, afebrile with BP 90s/60s and otherwise stable vital signs. On exam the patient is mildly confused and otherwise exhibits no focal neuro deficits. Patient does appear clinically dry. EKG demonstrates paced rhythm with frequent PVCs. PPM/AICD interrogation performed and report is pending. Chest x-ray negative for acute process. WBC 13.8, nonspecific. H/H 12/34.3 similar to prior range of values. Platelets within normal limits. Creatinine is 2.7 which does appear to be acutely elevated. Chemistry without acidosis. LFTs elevated with AST 139, ALT 129, alk phos 500. Total bilirubin within normal limits. CT abdomen pelvis ordered for further clarification of patient's hepatitis. UA is suspicious for infection with 2+ esterase, WBC> 30 and 4+ bacteria. Lactate within normal limits. The patient was treated initially with dose of ceftriaxone based on prior urine cultures which grew Klebsiella. Given the patient's acute on chronic renal failure with UTI and transaminitis reasonable to admit the patient for further management. Patient feeling some improvement after IVF and BP 100-120s/60s. Case was d[place] [facility], who will evaluate the patient for admission. CT abdomen pelvis preliminary stat read report in the interim resulted and I received a phone call from the radiologist describing findings that could be co nsistent with an emphysematous/gangrenous cholecystitis. I did review the patient's case including his comorbidities, labs and CT findings with general surgery on-call, Dr. Rain, and agrees with plan for admission here to medicine for medical optimization and antibiotics and he will be available for inpatient consultation. Antibiotics broadened with Zosyn and Vancomycin. Dr. Baeza updated and they will admit patient. Gallbladder US ordered and pending for further characterization of CT findings. Impression & Plan Acute on chronic renal failure, Acute UTI, Transaminitis, Cholecystitis Critical Care Time Critical Care Time: Yes Total Critical Care Time: 35 I have personally spent greater than 35 minutes of critical care time in the direct management of this patient. This includes bedside care, interpretation of diagnostic studies, and testing, discussion with consultants, patient, and family members, and other required patient management activities. This 35 minutes is in excess of all separately billable procedures. Discharge Plan Visit Data *Final* Discharge Date/Time: 04/11/19 02:40 Chief Complaint: Altered Mental Status Stated Complaint: AMS, ED Provider: Hubert Glover Discharge Problem: Acute on chronic renal failure, Acute UTI, Transaminitis, Cholecystitis Patient Disposition: Admitted As Inpatient Discharge Instructions Interventions: ED Discharge Assessment Last Done: 04/11/19 02:40 Discharge Problem: Acute on chronic renal failure Qualifiers: Acute renal failure type: unspecified Chronic kidney disease stage: unspecified stage Qualified Code(s): N17.9 - Acute kidney failure, unspecified The scribe's documentation has been prepared under my direction and personally reviewed by me in its entirety. I confirm that the note above accurately r eflects all work, treatment, procedures, and medical decision making performed by me.
[2019-04-11] MEDS ORDERED: PIPERACILLIN/TAZOBACTAM 4.5 GM/120 ML BAG IV ONE (01:05)
[2019-04-11] MEDS ORDERED: VANCOMYCIN HCL 2,000 MG in SODIUM CHLORIDE 0.9% 500 ML IV ONE (01:26)
[2019-04-11] MEDS ORDERED: VANCOMYCIN CONSULT ACTIVE PRN ×2 (01:26→03:24)
--- NOTE | 2019-04-11 01:55 | History & Physical Report ---
Date of Service April 11, 2019 Assessment & Plan (1) Cholecystitis: 68-year-old male with a history significant for uncontrolled T2DM status post upper lower extremity amputations, CKD, HTN, dilated cardiomyopathy, CHF, history of complicated UTI presents from [facility] with acute confusion. His is present states that she got a call from the fpc today describing a change in behavior. Patient remarks that he was feeling short of breath today. He is alert to person, but not time or place. CT the abdomen read acute cholecystitis. The patient does not have significant abdominal tenderness on exam, but has ALP predominant transaminitis. Acute cholecystitis Patient has elevated white count, he is altered, elevated ALP, CT reads acute cholecystitis General surgery consulted, appreciate recommendations Keeping patient n.p.o., hold medications Continue IV Vanco and Zosyn Continue IV fluids at a rate of 100 cc/h, patient received a 1 L bolus in the ED IV Tylenol for fevers Follow blood cultures Asymptomatic bacteriuria Follow cultures History of uncontrolled type 2 diabetes Continuing sliding scale insulin Giving half of Levemir, 16 units Hypertension/CAD/CHF/dilated cardiomyopathy status post ICD Okay to hold antihypertensive in setting of infection, give IV Lopressor for pressures greater than 170 systolic Holding p.o. medications aspirin, atorvastatin, isosorbide mononitrate, metoprolol, losartan Hypothyroidism Hold Synthroid Mood disorder Hold Zoloft Patient received risperidone before coming to the hospital this evening Gout Hold allopurinol DVT prophylaxis Contraindicated, possible procedure in the morning CODE STATUS DNR (2) Acute on chronic renal failure: (3) Acute UTI: (4) Transaminitis: (5) HTN (hypertension): (6) DM type 2 (diabetes mellitus, type 2): (7) Hypothyroidism: (8) Dyslipidemia: (9) Gout: History of Present Illness T Primary Care Provider: [facility] 68-year-old male with a history significant for uncontrolled T2DM status post upper lower extremity amputations, CKD, HTN, dilated cardiomyopathy, CHF, history of complicated UTI presents from [facility] with acute confusion. His is present states that she got a call from the fpc today describing a change in behavior. Patient remarks that he was feeling short of breath today. He is alert to person, but not time or place. The patient is a questionable historian, but he is review of system was otherwise unremarkable. He denies any abdominal pain, nausea/vomiting/diarrhea. He denies any burning with urination. The states that he is incontinent at baseline and has a history of complicated urinary tract infections. He denies feeling fevers or recent sore throats, runny nose or cough. Allergies Allergy/AdvReac Type Severity Reaction Status Date / Time gemfibrozil Allergy Unknown Unknown Verified 04/10/19 22:56 Home Medications Home Medications Medication Instructions Recorded Confirmed Type allopurinol [Zyloprim] 300 mg PO DAILY 04/10/19 04/10/19 History Past Med/Surg History Medical History HTN (hypertension) (Chronic) DM type 2 (diabetes mellitus, type 2) (Chronic) Hypothyroidism (Chronic) Dyslipidemia (Chronic) Gout (Chronic) Biventricular ICD (implantable cardioverter-defibrillator) in place (Chronic) Lung nodule (Chronic) Adjustment disorder with depressed mood (Chronic) Diabetic retinopathy (Chronic) Nonischemic cardiomyopathy (Chronic) CAD (coronary artery disease) (Chronic) "s/p stent to LAD in 04/2014" Chronic systolic CHF (congestive heart failure) (Chronic) On 09/07/15 13:04 Maren Barry wrote "echo 10/08/14- LV cavity size moderately enlarged, mild concentric LVH, diffuse moderate LV hypokinesis with superimposed more severe hypokinesis/akinesis involving the mid and apical inferior wall, anterior septum, and LV apex. LV apex is akinetic. 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: No Beliefs That Will Affect Care: None marital status: Current Living Situation: Long-Term Other Information That Helps Us Care for You: No Feels Safe at Home: Yes Safety Concerns: Feels Safe At This Time Smoking Status: Never smoker Hx Alcohol Use: No Review of Systems Review of Systems: All systems reviewed & are unremarkable except as noted in HPI & below Physical Exam Constitutional: well developed, + ill appearing and + disheveled; no acute distress Eyes: PERRL, conjunctivae normal, anicteric sclerae ENMT: external ear and nose normal, oropharynx normal Neck: trachea midline, no thyromegaly Respiratory: normal respiratory effort, lungs clear to auscultation Cardiovascular: Rate/Rhythm: regular rate and regular rhythm; not tachycardic Heart Sounds: + murmur (2 out of 6 systolic murmur) Gastrointestinal (Abdomen): normal bowel sounds, soft, nontender, no hepatosplenomegaly Musculoskeletal: Multiple amputated fingers bilateral hands. Amputation of the left lower extremity. Skin: Right lower extremity notable excoriations with surrounding erythema, no signs of cellulitis. Neurologic: PERRL, EOMI, accommodation nl, no face palsy, no dysarthria Psychiatric: Orientation: alert and oriented to person; + not oriented to place and + not oriented to time Results & Data Vital Signs (Past 12 Hours) Vital Signs Temp Pulse Resp BP Pulse Ox 04/11/19 01:01 82 18 120/84 96 04/11/19 01:00 79 17 93 04/11/19 00:31 75 17 121/66 94 04/11/19 00:30 73 16 94 04/11/19 00:24 71 19 95 04/11/19 00:23 71 21 111/59 L 95 04/11/19 00:00 70 21 04/10/19 23:31 76 20 128/64 04/10/19 23:30 72 20 04/10/19 23:15 73 17 112/46 L 04/10/19 23:00 90 23 04/10/19 22:37 89 25 H 126/66 04/10/19 22:33 88 17 91/48 L 04/10/19 22:31 87 18 04/10/19 22:30 87 22 04/10/19 22:00 87 20 105/51 L 93 04/10/19 21:33 72 21 105/43 L 04/10/19 21:30 81 21 04/10/19 21:15 56 L 17 04/10/19 21:00 72 18 107/62 04/10/19 20:48 71 19 93 04/10/19 20:44 36.5 C 73 16 97/62 L 98 04/10/19 20:38 73 20 97/62 L 91 Code Status & VTE Plan Code Status DNR VTE Prophylaxis Plan VTE Prophylaxis will be ordered: No Reason for no VTE drug order: Contraindicated (Possible surgery in the morning) Reason for no VTE mechanical prophylaxis: Contraindicated (Lower extremity amputation, left leg) Supervising Physician Co-Signing Physician Notes Attending addendum: I have physically seen this patient, have supervised the medical residents activities, and agree with the H&P unless as otherwise noted. Assessment and Plan: Acute cholecystitis- N.p.o. except essential medications. Continue IV antibiotics. NSS of 100 mils per hour. Acetaminophen 1 g IV every 8 hours PRN mild pain or temperature. Zofran 4 mg IV every 6 hours PRN. Famotidine 20 mg IV every 12 hours. Diabetes mellitus- Levemir dose in half, may need to DC altogether. Placed on Accu-Cheks before meals and at bedtime with NovoLog coverage per scale. CAD/hypertension/CHF/dilated cardiomyopathy status post AICD- Continue negative inotropes with adjusted dosing, and PRN Lopressor IV as ne eded. May convert isosorbide mononitrate to Nitropaste if needed. Hold other meds. 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 Remainder of orders notations as noted. PG Care Time/CCT Total # of Minutes Spent Total Time Spent with Patient: Total time spent is greater than 50% in coordination of care (as documented) at patient's floor/unit and/or counseling patient: Resident Activity Tracking Resident Involvement: Resident Care Provided Care Provided: Adult Hospital Medicine (1) Acute on chronic renal failure Acute renal failure type: unspecified Chronic kidney disease stage: unspecified stage Qualified Code(s): N17.9 - Acute kidney failure, unspecified; N18.9 - Chronic kidney disease, unspecified
[2019-04-11] MEDS ORDERED: PIPERACILL/TAZOBAC CONSULT ACTIVE PRN (03:24)
[2019-04-11] MEDS ORDERED: ACETAMINOPHEN 65 ML IV PRN (03:24)
[2019-04-11] MEDS: METOPROLOL TARTRATE 1 MG/ML VIAL IV SCH ×2 (03:58→08:00)
[2019-04-11] MEDS: SODIUM CHLORIDE 0.9% 1000ML 1,000 ML IV SCH ×2 (04:00→12:55)
[2019-04-11 04:15] LABS: Albumin Level 2.3 gm/dl (3.4-5.0); BUN Creatinine Ratio 42.4 (10-20); Creatinine Clr Calc Pharmacy 30.2 ml/min; Est GFR (African American) 26.6; Potassium 3.3 mmol/L (3.5-5.1)
[2019-04-11 04:17] LABS: Albumin Globulin Ratio 0.5 (0.9-2); Bilirubin,Total 0.6 mg/dl (0.2-1); Globulin 4.8 gm/dl (2.5-4.0); Total Protein 7.1 gm/dl (6.4-8.2)
[2019-04-11] MEDS: PIPERACILLIN/TAZOBACTAM 3.375 GM in DEXTROSE 5% 100 ML IV SCH ×2 (05:30→14:05)
[2019-04-11] MEDS: POTASSIUM CHLORIDE / WTR 10 MEQ/100 ML PLCT IV SCH ×3 (05:35→06:45)
[2019-04-11 06:22] LABS: Basophils # (auto) 0.01 K/uL (0-0.2); Basophils % (auto) 0.1 %; Eosinophils % (auto) 1.6 %; Hematocrit (blood only) 36.6 % (42-52); Hemoglobin 12.8 g/dL (14.0-18.0); Immature Granulocytes # (auto) 0.08 K/uL (0.00-0.02); Immature Granulocytes % (auto) 0.6 %; Lymphocytes # (auto) 0.65 K/uL (1.2-3.4); Lymphocytes % (auto) 5.1 %; Mean Corpuscular Volume 85.5 fL (80-100); Mean Platelet Volume 10.4 fL (7.4-10.4); Monocytes # (auto) 0.78 K/uL (0.11-0.59); Monocytes % (auto) 6.1 %; Neutrophils % (auto) 86.5 %; Platelet Count 159 K/uL (130-400); RDW Coefficient of Variation 15.5 % (11.5-14.5); RDW Standard Deviation 48.5 fL (36.4-46.3); Red Blood Count 4.28 M/uL (4.7-6.1); White Blood Count 12.72 K/uL (4.8-10.8)
[2019-04-11 06:30] LABS: INR 1.1 (0.9-1.1); Prothrombin Time 11.1 Seconds (9.0-12.0)
--- NOTE | 2019-04-11 07:01 | Ultrasound Report ---
US gallbladder CLINICAL HISTORY: Sepsis, transaminitis, ?cholecystitis on CT COMPARISON STUDY: CT of the abdomen and pelvis April 10, 2019. TECHNIQUE: Sonography of the right upper quadrant was performed. FINDINGS: No hepatic lesions are identified. The pancreas is obscured. The gallbladder is distended. Moderate irregular gallbladder wall thickening is noted. Gallbladder wall is edematous. Small pericho lecystic loculated fluid collections are noted. No sonographic Vicente sign was reported. A few suspec kimberly small gallstones are noted. There is no biliary ductal dilatation. There is no right hydronephros is. IMPRESSION: 1. Sludge and stones within the gallbladder. Gallbladder distention with irregular gallbladder wall t hickening and small adjacent fluid collections. These findings are highly suggestive of acute cholec ystitis and may reflect gangrenous cholecystitis. 2. No biliary ductal dilatation. 3. Obscured pancreas. Electronically signed by: Ramesh Ham M.D. 04/11/2019 7:00 AM
--- NOTE | 2019-04-11 07:13 | CT Scan Report ---
ABDOMEN AND PELVIS CT WITHOUT CONTRAST CT DOSE: 1097.03 mGy.cm HISTORY: Acutely altered mental status transaminitis, ams TECHNIQUE: Multiaxial CT images of the abdomen and pelvis were performed without contrast. A dose lo wering technique was utilized adhering to the principles of ALARA. COMPARISON STUDY: Right upper quadrant abdominal ultrasound 04/11/2019, CT abdomen and pelvis 01/19/2017 . FINDINGS: Bibasilar bronchial wall thickening with scattered calcified granulomata. Subpleural reticular opacit ies suggest atelectasis/scarring. Trace pleural effusions. There is an ovoid 2.0 cm lesion with centr al cavitation noted about the basal left lower lobe within the area of previously described 2 cm pulm onary nodule is calcifications. There is no pneumatosis or pneumoperitoneum identified. The imaged in ferior cardiac chambers are enlarged with trace pericardial effusion. Pacer leads are partially image d. Coronary arterial calcifications are noted. Limited evaluation of the solid abdominal organs without the use of IV contrast. Spleen is mildly enl arged, 16.2 cm in length. Mild generalized pancreatic atrophy. Adrenal glands are unremarkable. Unenh anced liver is within normal limits. Distended gallbladder measures up to 12 cm in length. Cholelithi asis. Irregular gallbladder wall thickening is noted with areas of wall discontinuity. There are tunde ral small fluid collections noted about the gallbladder measuring up to 2.8 cm in length. Pericholecy stic edema with inflammatory stranding is noted. No biliary ductal dilation. No drainable fluid colle ction. No air within the lumen or wall the gallbladder. Nonspecific bilateral perinephric stranding. Ureters are unremarkable. Urinary bladder wall thickenin g with partial distention. Prostamegaly. Calcified plaque of the aorta without aneurysm. Enlarged ret roperitoneal lymph nodes measure up to 9 mm. Mild distention of the stomach with air-fluid level. The re is no bowel obstruction. Mild nonspecific wall thickening about the rectum. There is partial diste ntion about the majority of the colon. Normal appendix. Mild generalized body wall edema. Suggestion of injection granulomata about the subcutaneous anterior abdominal wall. Degenerative changes of the pelvis, spine and hips. Chronic appearing fractures about the posterior lateral right ninth, 10th, 11 th and 12th ribs with nonunion. There is no acute fracture identified. IMPRESSION: 1. Cholelithiasis with findings compatible with acute cholecystitis. Additionally, there is irregular gallbladder wall thickening and discontinuity suggestive of perforation (gangrenous acute cholecysti tis) with small pericholecystic fluid collections suggestive of abscesses, largest of which measures up to 2.8 cm. No drainable fluid collection identified. 2. No pneumatosis or pneumoperitoneum. 3. No biliary ductal dilation. 4. Additional findings as above. Electronically signed by: Rolan Patterson M.D. 04/11/2019 7:12 AM
[2019-04-11] MEDS ORDERED: INSULIN ASPART 100 UNITS/ML 3 ML PEN SC SCH (07:30)
--- NOTE | 2019-04-11 08:23 | Surgery Consultation ---
Date of Consultation April 11, 2019 Assessment & Plan (1) Cholecystitis: Will ask cardiology to evaluate. May consider cholecystostomy tube versus lap loraine. as above. cardiology states pt extremely high surgical risk. d/w primary service arrangements made for [facility] for perc loraine tube continue antibiotics surgery would be last resort if he fails more conservative treatment please call us if needed. History of Present Illness Attending Physician: Bal Carter DO History of Present Illness 68 y/o male diabetic with significant cardiovascular disease brought to ER from CT for confusion. Has some abdominal pain, denies N/V. Not able to offer much more history. Allergies Allergy/AdvReac Type Severity Reaction Status Date / Time gemfibrozil Allergy Unknown Unknown Verified 04/10/19 22:56 Home Medications Home Medications Medication Instructions Recorded Confirmed Type allopurinol [Zyloprim] 300 mg PO DAILY 04/10/19 04/10/19 History Patient History Medical History HTN (hypertension) (Chronic) DM type 2 (diabetes mellitus, type 2) (Chronic) Hypothyroidism (Chronic) Dyslipidemia (Chronic) Gout (Chronic) Biventricular ICD (implantable cardioverter-defibrillator) in place (Chronic) Lung nodule (Chronic) Adjustment disorder with depressed mood (Chronic) Diabetic retinopathy (Chronic) Nonischemic cardiomyopathy (Chronic) CAD (coronary artery disease) (Chronic) "s/p stent to LAD in 04/2014" Chronic systolic CHF (congestive heart failure) (Chronic) On 09/07/15 13:04 Maren Reddy wrote "echo 10/08/14- LV cavity size moderately enlarged, mild concentric LVH, diffuse moderate LV hypokinesis with superimposed more severe hypokinesis/akinesis involving the mid and apical inferior wall, anterior septum, and LV apex. LV apex is akinetic. 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 (Acute) Surgical History Hx of BKA (Chronic) "left" History of implantable cardioverter-defibrillator (ICD) placement (Chronic) S/P coronary artery stent placement (Chronic) "CLAUDINE to LAD in 04/2014" Family History Other No significant family history Social History Preferred Language: Belgian Communication Ability: Effective Cable Driller Required: No Beliefs That Will Affect Care: None marital status: Current Living Situation: Halfway Other Information That Helps Us Care for You: No Feels Safe at Home: Yes Safety Concerns: Feels Safe At This Time Smoking Status: Never smoker Hx Alcohol Use: No Review of Systems Review of Systems: Unobtainable due to cognitive status Physical Exam Constitutional: no acute distress Respiratory: no respiratory distress Cardiovascular: Rate/Rhythm: regular rate Gastrointestinal (Abdomen): Inspection/Auscultation: abdomen not distended Percussion/Palpation: + abdomen tender (RUQ) Results & Data Vital Signs (Past 12 Hours) Vital Signs Temp Pulse Pulse Resp BP BP Pulse Ox 04/11/19 07:05 36.9 C 63 16 120/69 95 04/11/19 03:58 72 132/68 04/11/19 03:03 36.5 C 91 H 16 132/68 98 04/11/19 02:40 76 16 130/59 L 95 04/11/19 01:01 82 18 120/84 96 04/11/19 01:00 79 17 93 04/11/19 00:31 75 17 121/66 94 04/11/19 00:30 73 16 94 04/11/19 00:24 71 19 95 04/11/19 00:23 71 21 111/59 L 95 04/11/19 00:00 70 21 04/10/19 23:31 76 20 128/64 04/10/19 23:30 72 20 04/10/19 23:15 73 17 112/46 L 04/10/19 23:00 90 23 04/10/19 22:37 89 25 H 126/66 04/10/19 22:33 88 17 91/48 L 04/10/19 22:31 87 18 04/10/19 22:30 87 22 04/10/19 22:00 87 20 105/51 L 93 04/10/19 21:33 72 21 105/43 L 04/10/19 21:30 81 21 04/10/19 21:15 56 L 17 04/10/19 21:00 72 18 107/62 04/10/19 20:48 71 19 93 04/10/19 20:44 36.5 C 73 16 97/62 L 98 04/10/19 20:38 73 20 97/62 L 91 PG Care Time/CCT Total # of Minutes Spent Total Time Spent with Patient: Total time spent is greater than 50% in coordination of care (as documented) at patient's floor/unit and/or counseling patient:
[2019-04-11] MEDS ORDERED: METOPROLOL TARTRATE 1 MG/ML VIAL IV PRN (08:37)
--- NOTE | 2019-04-11 08:49 | Pharmacy Report ---
Pharmacy Abx Initial Consult - Date of Service April 11, 2019 - Pharmacy Dosing Scope Date of Consult: 04/11/19 Consultation requested by: Dr. Ignacia Nair Pharmacy is consulted to initiate Vancomycin and Zosyn IV dosing therapy, order appropriate labs and adjust drug dose/frequency. - Subjective The patient is a 68 year old M admitted on 04/11/19 01:38. - Objective Height: 5 ft 10 in Weight: 96 kg Vital Signs (Past 12hrs): Vital Signs Temp Pulse Pulse Resp BP BP Pulse Ox 04/11/19 07:05 36.9 C 63 16 120/69 95 04/11/19 03:58 72 132/68 04/11/19 03:03 36.5 C 91 H 16 132/68 98 04/11/19 02:40 76 16 130/59 L 95 04/11/19 01:01 82 18 120/84 96 04/11/19 01:00 79 17 93 04/11/19 00:31 75 17 121/66 94 04/11/19 00:30 73 16 94 04/11/19 00:24 71 19 95 04/11/19 00:23 71 21 111/59 L 95 04/11/19 00:00 70 21 04/10/19 23:31 76 20 128/64 04/10/19 23:30 72 20 04/10/19 23:15 73 17 112/46 L 04/10/19 23:00 90 23 04/10/19 22:37 89 25 H 126/66 04/10/19 22:33 88 17 91/48 L 04/10/19 22:31 87 18 04/10/19 22:30 87 22 04/10/19 22:00 87 20 105/51 L 93 04/10/19 21:33 72 21 105/43 L 04/10/19 21:30 81 21 04/10/19 21:15 56 L 17 04/10/19 21:00 72 18 107/62 04/10/19 20:48 71 19 93 04/10/19 20:44 36.5 C 73 16 97/62 L 98 Lab Results (24hrs): Laboratory Tests (24 Hours) 04/11/19 04/11/19 04/10/19 05:56 03:31 21:28 WBC 12.72 H Neut # (Auto) 11.00 H Creatinine 2.72 H 2.76 H Est Cr Clr Drug Dosing 30.2 30.0 04/10/19 21:28 WBC 13.82 H Neut # (Auto) 11.93 H Creatinine Est Cr Clr Drug Dosing Micro Results: 04/10/19 21:15 Aerobic Blood Culture - Pending Blood Anaerobic Blood Culture - Pending 04/10/19 21:28 Aerobic Blood Culture - Pending Blood Anaerobic Blood Culture - Pending - Risk Factors for Resistance * Resident in a jail or extended-care facility - Assessment & Plan Assessment 68 year old M from [place] [facility] admitted for acute cholecystitis and possible UTI Pertinent PMH includes uncontrolled DMII, h/o complicated UTI, L BKA, and mu ltiple finger amputations Patient in PATRICIA with serum creatinine 2.72 mg/dL and BUN/SCr 42.4 IBW adjusted for L BKA did not change creatinine clearance significantly (30 mL/min vs 29.3 mL/min) Population kinetics: Vd 0.6 L/kg, Cyrus 0.029 hr-1 , t1/2 24 hrs Plan IV vancomycin and zosyn for treatment of acute (possible gangrenous) cholecystitis and possible UTI Vancomycin IV * Loading dose: 2000 mg (20 mg/kg) * Maintenance dose: None at this time given PATRICIA, plan to dose based on random levels * Goal trough level for GI infection/UTI: 10 to 20 mcg/mL * Random level ordered for 04/12/19 with AM labs (approximately 24 hours after last dose) Piperacillin/tazobactam * 4.5 g bolus administered over 30 minutes, then 3.375 g IV extended infusion every 8 hours for CrCl greater than 20 mL/min Pharmacy will continue to follow and will adjust dose/frequency as necessary. Thank you.
[2019-04-11] MEDS ORDERED: VANCOMYCIN HCL 1,500 MG in SODIUM CHLORIDE 0.9% 500 ML IV SCH (09:00)
[2019-04-11] MEDS: INSULIN DETEMIR FLEXPEN/FLEX TOUCH 100 UNITS/ML 3ML SC SCH ×2 (10:12→10:16)
[2019-04-11] MEDS ORDERED: Nursing to Pharmacy Communication ONE (12:00)
[2019-04-11] MEDS: INSULIN ASPART 100 UNITS/ML 3 ML PEN SC SCH ×2 (13:01→18:40)
--- NOTE | 2019-04-11 14:10 | Consultation Report ---
DATE OF CONSULTATION: 04/11/2019 CONSULTATION REQUESTED BY: Dr. Nair. REASON FOR CONSULTATION: Preop cardiac risk assessment. HISTORY OF PRESENT ILLNESS: Mr. Koroma is a very cardiovascularly complex 68-year-old gentleman who normally follows with Alisa Parnell and Dr. Perry of our Cardiology practice. He presented from [facility] late in the evening of 04/10/2019 with a complaint of change in mental status. The patient is currently significantly confused and majority of the history was obtained through review of medical records and discussion with his family. The patient's states that she got a call from the senior care, describing a change in his behavior and he was transferred to [facility]. Upon arrival here, he was found to have acute cholecystitis. General surgery was consulted for evaluation as well as Cardiology for preoperative risk assessment. Currently, the patient is oriented to self and place and denies any chest pain or shortness of breath. His and son both state that they have not really having complaint of any similar symptoms as of late. The patient does state that he is having right upper quadrant abdominal pain at this time. PAST SURGICAL HISTORY: 1. Cardiac catheterization in 2013 with PCI to the LAD with a drug-eluting stent. 2. Multiple foot and hand amputations. 3. BiV ICD placement with Medtr[employer] device and most recent generator change in 2014. 4. Cystoscopy. MEDICAL ILLNESSES: 1. Severe mixed ischemic and nonischemic cardiomyopathy, mostly nonischemic. 2. Coronary artery disease. 3. Longstanding diabetes with neuropathy and vasculopathy. 4. Hyperlipidemia. 5. Compensated class 3+ congestive heart failure. 6. [id number] amputation. 7. Gout. 8. Depression. FAMILY HISTORY: Noncontributory. SOCIAL HISTORY: Denies any alcohol, tobacco or recreational drug use. He currently resides in a senior care. REVIEW OF SYSTEMS: Unobtainable given the patient's current mental status. ALLERGIES: GEMFIBROZIL. MEDICATIONS AN OUTPATIENT: 1. Aspirin 325 mg daily. 2. Insulin as directed. 3. Allopurinol daily. 4. Zoloft daily. 5. Levothyroxine daily. 6. Losartan 25 mg daily. 7. Metolazone 2.5 mg weekly. 8. Atorvastatin 80 mg daily. 9. Metoprolol succinate 25 mg b.i.d. 10. Risperdal b.i.d. PHYSICAL EXAMINATION: VITALS: Temperature is 36.9, pulse 63, respiratory rate 12, blood pressure 120/69. GENERAL: Awake, somewhat alert, oriented to self and place only, does seem to answer questions appropriately. HEENT: Normocephalic, atraumatic. Pupils equal, round, reactive to light and accommodation. Extraocular muscles intact. Anicteric sclerae. Moist mucous membranes. Poor dentition. NECK: No JVD or bruit. CARDIOVASCULAR: Regular, but distant. Unable to appreciate murmurs, rubs or gallops. PULMONARY: Clear to auscultation bilaterally. No rales, rhonchi, or wheezing. ABDOMEN: Bowel sounds x4, soft, diffusely tender, particularly in the right upper quadrant. No rebound or guarding. No organomegaly. EXTREMITIES: Multiple amputations. TEST RESULTS: Most recent 2D echocardiogram performed 03/01/2018 was read as study is technically limited severely dilated left ventricle with diffuse myocardial thinning, severe global hypokinesis with an EF less than 20%. Grade III diastolic dysfunction is noted consistent with restrictive filling pattern. IMPRESSION: 1. Preop risk assessment prior to undergoing intervention for acute cholecystitis. 2. Severe ischemic/nonischemic cardiomyopathy, ejection fraction less than 20%. 3. Severe peripheral vascular disease with multiple amputations. 4. Poorly controlled diabetes with severe vasculopathy. 5. Coronary artery disease status post percutaneous coronary intervention to the left anterior descending. RECOMMENDATIONS: It was my pleasure to see Mr. Koroma in consultation today. I did have a long discussion with the patient's and son and explained to him that given his severe cardiomyopathy and severe peripheral vascular disease along with all other comorbidities that have placed him at a very high risk for adverse perioperative cardiovascular event with the risks significantly greater than 5%. They were further counseled that no further cardiac testing or intervention would further lower this risk. They state that they understand, and are accepting that risk and would like to discuss surgical options further with the surgical team, but obviously I will defer to their recommendations, but again the family is aware that no matter what intervention is performed, the patient will be high risk for and they are accepting of that risk. Otherwise, no medication changes will be made at this time. I would recommend that he continue his aspirin and metoprolol uninterrupted.
--- NOTE | 2019-04-11 20:49 | Discharge Summary ---
Date of Service April 11, 2019 Admission HPI Per Admitting Provider 68-year-old male with a history significant for uncontrolled T2DM status post upper lower extremity amputations, CKD, HTN, dilated cardiomyopathy, CHF, history of complicated UTI presents from [facility] with acute confusion. His is present states that she got a call from the correction today describing a change in behavior. Patient remarks that he was feeling short of breath today. He is alert to person, but not time or place. The patient is a questionable historian, but he is review of system was otherwise unremarkable. He denies any abdominal pain, nausea/vomiting/diarrhea. He denies any burning with urination. The states that he is incontinent at baseline and has a history of complicated urinary tract infections. He denies feeling fevers or recent sore throats, runny nose or cough. Admission Exam Per Admitting Provider Constitutional: well developed, + ill appearing and + disheveled; no acute distress Eyes: PERRL, conjunctivae normal, anicteric sclerae ENMT: external ear and nose normal, oropharynx normal Neck: trachea midline, no thyromegaly Respiratory: normal respiratory effort, lungs clear to auscultation Cardiovascular: Rate/Rhythm: regular rate and regular rhythm; not tachycardic Heart Sounds: + murmur (2 out of 6 systolic murmur) Gastrointestinal (Abdomen): normal bowel sounds, soft, nontender, no hepatosplenomegaly Musculoskeletal: Multiple amputated fingers bilateral hands. Amputation of the left lower extremity. Skin: Right lower extremity notable excoriations with surrounding erythema, no signs of cellulitis. Neurologic: PERRL, EOMI, accommodation nl, no face palsy, no dysarthria Psychiatric: Orientation: alert and oriented to person; + not oriented to p lace and + not oriented to time Principal Diagnosis Cholecystitis Discharge Exam Constitutional: well developed, + ill appearing and + disheveled; no acute distress Eyes: PERRL, conjunctivae normal, anicteric sclerae ENMT: external ear and nose normal, oropharynx normal Neck: trachea midline, no thyromegaly Respiratory: normal respiratory effort, lungs clear to auscultation Cardiovascular: Rate/Rhythm: regular rate and regular rhythm; not tachycardic Heart Sounds: + murmur (2 out of 6 systolic murmur) Gastrointestinal (Abdomen): normal bowel sounds, soft, nontender, no hepatosplenomegaly Musculoskeletal: Multiple amputated fingers bilateral hands. Amputation of the left lower extremity. Skin: Right lower extremity notable excoriations with surrounding erythema, no signs of cellulitis. Neurologic: PERRL, EOMI, accommodation nl, no face palsy, no dysarthria Psychiatric: Orientation: alert and oriented to person; + not oriented to place and + not oriented to time Discharge Data Allergies Allergy/AdvReac Type Severity Reaction Status Date / Time gemfibrozil Allergy Unknown Unknown Verified 04/10/19 22:56 Consultations 04/10/19 23:47 ED Decision to Admit Stat 04/11/19 03:24 Consult Case Management - Discharge Planning Routine Consult General Surgery Routine 04/11/19 07:03 Consult Cardiology Routine 04/11/19 12:53 Burn CD for patient Stat 04/11/19 13:43 Burn CD for patient Stat Ordered Studies 04/10/19 23:36 CT abd pelvis wo con Urgent 04/11/19 01:18 US gallbladder Urgent Hospital Course (1) Cholecystitis: Rogelio Koroma is a 68 year old man with a history significant for uncontrolled T2DM status post upper lower extremity amputations, CKD, HTN, dilated cardiomyopathy, CHF, history of complicated UTI presents from [facility] with acute confusion. On admission patient was hemodynamically stable and afebrile. White count elevated to 12.72, AST elevated to 139, ALT elevated to [address] abdomen showed cholecystitis w ith fluid collection ultrasound of gall bladder shows possible gangrenous gall bladder. Patient was evaluated by surgery for cholecystecomy but was deemed to be too high risk by caridology for the procedure. Will transfer to [facility] for evaluation for cholystostomy. Patient remains hemodynamically stable and afebrile currently running zosyn IV and IV normal saline at 100 mls/hour Patient has been NPO since last night. Acute cholecystitis Patient has elevated white count, he is altered, elevated ALP, CT reads acute cholecystitis Keeping patient n.p.o., hold medications Continue IV Zosyn Continue IV fluids at a rate of 100 cc/h, patient received a 1 L bolus in the ED IV Tylenol for fevers Blood cultures drawn in ED, no growth to date at 12 hours UTI Treating with zosyn, patient poor historian Urinalysis positive for bacteria, white cells and leuk esterase On IV zosyn Acute PATRICIA Patient also with evidence of PATRICIA with creatinine of 2.72 from baseline of 2. Appears to be pre renal with history of very poor PO intake. Supplying IV normal saline at 100 mls/hour. History of uncontrolled type 2 diabetes Currently NPO on 16 units levemir which he received today Blood sugar has been around 200, home basal dose is 35 units levemir Sliding scale Hypertension/CAD/CHF/dilated cardiomyopathy status post ICD Okay to hold antihypertensive in setting of infection, give IV Lopressor for pressures greater than 170 systolic Holding p.o. medications aspirin, atorvastatin, isosorbide mononitrate, metoprolol, losartan Hypothyroidism Hold Synthroid Mood disorder Hold Zoloft Patient received risperidone before coming to the hospital this evening Gout Holding allopurinol DVT prophylaxis Contraindicated, possible procedure in the morning CODE STATUS DNR Total Time Total Time Spent Total Time Spent (In Minutes): >30 (probably approximately 60) Discharge Plan Discharge Items Patient Disposition: Transfer Acute Care Hospital Reason For Visit: SEPSIS,CHOLECYSTITIS Discharge Diagnosis: Cholecystitis Discharge Goals: Therapeutic intervention Activity: Per 'Additional Instructions' section Non-emergency contact: Hospitalist and Surgeon Call non-emergency contact if: your symptoms worsen Follow-up/Referrals: Deonte Truong [Primary Care Provider] - Diet: Nothing by mouth Addtl Provider Instructions: Rogelio Koroma is a 68 year old man who presented initially for altered mental status from his longterm facility [facility]. On admission patient was hemodynamically stable and afebrile. White count elevated to 12.72, AST elevated to 139, ALT elevated to [address] abdomen showed cholecystitis with fluid collection ultrasound of gall bladder shows possible gangrenous gall bladder. Patient was evaluated by surgery for cholecystecomy but was deemed to be too high risk by caridology for the procedure. Will transfer to [facility] for evaluation for cholystostomy. Patient remains hemodynamically stable and afebrile currently running zosyn IV and IV normal saline at 100 mls/hour Patient has been NPO since last night. PATRICIA Patient also with evidence of PATRICIA with creatinine of 2.72 from baseline of 2. Appears to be pre renal with history of very poor PO intake. Supplying IV normal saline at 100 mls/hour. Diabetes Currently NPO on 16 units levemir which he received today Blood sugar has been around 200, home basal dose is 35 units levemir Prescriptions: Continued allopurinol [Zyloprim] 300 mg tablet 300 mg PO DAILY RF: 0 Discontinued metolazone 2.5 mg Tablet 2.5 mg PO WK RF: 0 atorvastatin [Lipitor] 80 mg tablet 80 mg PO DAILY RF: 0 acetaminophen [Tylenol] 325 mg Tablet 650 mg PO Q6 PRN (Reason: Fever/PAIN) RF: 0 metoprolol succinate [Toprol XL] 50 mg tablet extended release 24 hr 50 mg PO DAILY RF: 0 isosorbide mononitrate 30 mg tablet extended release 24 hr 30 mg PO DAILY RF: 0 sertraline [Zoloft] 100 mg tablet 100 mg PO DAILY RF: 0 meclizine 12.5 mg Tablet 12.5 mg PO TID RF: 0 acetaminophen [Tylenol Arthritis Pain] 650 mg Tablet Extended Release 650 mg PO QPM RF: 0 levothyroxine [Synthroid] 100 mcg tablet 100 mcg PO DAILY RF: 0 magnesium hydroxide [Milk of Magnesia] 400 mg/5 mL Suspension 30 ml PO UD PRN (Reason: NO BM FOR 3 DAYS) RF: 0 aspirin 325 mg Tablet,Delayed Release (Dr/Ec) 325 mg PO DAILY RF: 0 Novolog U-100 Insulin aspart 100 unit/mL solution See Rx Instructions .ROUTE .COMPLEX RF: 0 losartan [Cozaar] 25 mg Tablet 25 mg PO DAILY RF: 0 risperidone [Risperdal] 0.5 mg tablet 0.5 mg PO QPM RF: 0 Levemir U-100 Insulin 100 unit/mL solution 35 unit subcut QAM RF: 0 Stand-Alone Forms: My [facility] Discharge Orders: Discharge Order (Routine); Ordered 04/11/19 Ordered By: Jas Up Admission Data Admit Date/Time: 04/11/19 01:38 Attending Provider: Bal Carter Admit Provider: Homero Nair Primary Care Provider: eDonte Truong Other Providers: Phong Baeza ; Adis Rain ; Hua Perry Service: Telemetry Other Interventions: Discharge Summary Assessment (RN) Last Done: 04/11/19 19:23 DC Date/Time DO NOT enter until pt leaves facility: 04/11/19 19:30 Supervising Physician Co-Signing Physician Notes I personally examined the patient and verified all granados points of history and exam, discussed case, and agree with decision making with Dr Up. no meaningful HPI or ROS. came for AMS, found to have cholecystitis. high risk for surgery. appears more appropriate to eval for cholecystostomy tube vs surgery with tertiary backup. family expresses understanding, prefers tx to [facility] as they have done prior surgeries for him there. vitals noted, nad, laying in bed, breathing unlabored no accessory muscles good effort no pallor or icterus AMS - probably septic encephalopathy due to cholecystitis acute cholecystitis - temporized w abx, agree that intervention is favorable on risk/benefit given risk of deterioration w abx alone in context of cholec ystitis. cholecystostomy if feasible appears lowest risk option. d/w [facility] (~47mins phone call) hospitalist agrees to accept in transfer, IR believes they're highly likely to be able to place tube. otherwise as above Resident Activity Tracking Resident Involvement: Resident Care Provided Care Provided: Adult Hospital Medicine
== END 2019-04-11 19:30 | disposition short-term general hospital (02) | DRG 445 ==
LOC: ED 20:32 → SUATTDRO 04-11 01:38 → 2S 04-11 01:38

== ENCOUNTER 2019-11-12 15:58 | Inpatient (IN) ==
[2019-11-12] MEDS ORDERED: PIPERACILLIN/TAZOBACTAM 4.5 GM/120 ML BAG IV ONE (16:25)
[2019-11-12] MEDS ORDERED: OR MISCELLANEOUS MED ONE (16:25)
[2019-11-12] MEDS ORDERED: PIPERACILL/TAZOBAC CONSULT ACTIVE PRN (16:25)
[2019-11-12] MEDS ORDERED: SODIUM CHLORIDE 0.9% 1000ML 1,000 ML IV SCH (16:30)
--- NOTE | 2019-11-12 16:33 | Emergency Department Note ---
Entered by Tala Claros acting as a scribe for Mick Bae DO History of Present Illness General Chief complaint: Hypoglycemia Stated complaint: HYPOGLYCEMIA Time Seen by Provider: 11/12/19 16:10 Source: EMS Mode of arrival: EMS History of Present Illness Onset (ago): hour(s) (14) Pain Consistency: + constant Quality: + other (unresponsive) Relieved By: + none Exacerbated By: + none Treatments prior to arrival: other (glucagon) The patient is a 69 year old male who presents to the Emergency Room with complaints of hypoglycemia. Since 2 am, the patient has had trouble keeping blood sugar up. He resides at [facility], where he received 3 IM glucagons, with the last being at 8:00am. He was responsive and eating pudding and juice earlier, and had no insulin today. About an hour and a half ago he went unresponsive. The patient is a DNR. 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 The patient was responsive to painful stimuli. The staff at the assisted have no reports of trauma, fevers, or any illness. Home Medications Home Medications Medication Instructions Recorded Confirmed Type allopurinol [Zyloprim] 300 mg PO QAM 04/10/19 11/08/19 History Novolin R Regular U-100 Insuln 0 unit SUBCUT DIRECTED 04/23/19 11/08/19 History ascorbic acid (vitamin C) [Vitamin 500 mg PO QAM 04/23/19 11/08/19 History C] aspirin 81 mg PO QAM 04/23/19 11/08/19 History isosorbide mononitrate 15 mg PO QAM 04/23/19 11/08/19 History metoprolol succinate 25 mg PO BID 04/23/19 11/08/19 History sertraline 100 mg PO QAM 04/23/19 11/08/19 History atorvastatin 80 mg PO DAILY 10/10/19 11/08/19 History melatonin 3 mg PO HS PRN 10/10/19 11/08/19 History potassium chloride 10 meq PO DAILY 10/10/19 11/08/19 History tamsulosin 0.4 mg PO QAM 30 Days #30 cap 10/15/19 11/08/19 Rx bisacodyl [Dulcolax (bisacodyl)] 10 mg TN DAILY PRN 11/08/19 11/08/19 History ferrous gluconate 324 mg PO BID 11/08/19 11/08/19 History finasteride 5 mg PO QAM 11/08/19 11/08/19 History insulin detemir U-100 [Levemir 15 unit SUBCUT QAM 11/08/19 11/08/19 History U-100 Insulin] levothyroxine 100 mcg PO QAM 11/08/19 11/08/19 History risperidone [Risperdal] 0.25 mg PO BID 11/08/19 11/08/19 History Allergies Allergy/AdvReac Type Severity Reaction Status Date / Time gemfibrozil Allergy Unknown Unknown Verified 11/12/19 18:08 Past Med/Surg History Medical History Adjustment disorder with depressed mood (Chronic) Biventricular ICD (implantable cardioverter-defibrillator) in place (Chronic) CAD (coronary artery disease) (Chronic) "s/p stent to LAD in 04/2014" Chronic systolic CHF (congestive heart failure) (Chronic) On 09/07/15 13:04 Maren Reddy wrote "echo 10/08/14- LV cavity size moderately enlarged, mild concentric LVH, diffuse moderate LV hypokinesis with superimposed more severe hypokinesis/ akinesis involving the mid and apical inferior wall, anterior septum, and LV apex. LV apex is akinetic. 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) Surgical History History of implantable cardioverter-defibrillator (ICD) placement (Chronic) Hx of BKA (Chronic) "left" S/P coronary artery stent placement (Chronic) "CLAUDINE to LAD in 04/2014" Family History Other Family history non-contributory Social History Preferred Language: Turkmen 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 and A total of 10 systems reviewed and were otherwise negative Physical Exam Vital Signs Vital Signs - 24 hr 11/12/19 16:11 11/12/19 16:30 11/12/19 16:33 Temperature Temperature Source Pulse Rate 74 69 71 Pulse Rate from SpO2 Sensor 70 Respiratory Rate 26 H 12 12 Respiratory Depth Shallow Respiratory Pattern Tachypnea Blood Pressure 143/78 H 116/73 Blood Pressure Mean 99 93 Pulse Oximetry 95 94 Oxygen Delivery Method Nasal Cannula Oxygen Flow Rate 2 Sepsis Recent Fever Within 48 Hours No Sepsis Action Taken by Nursing No Action Required 11/12/19 16:45 11/12/19 16:51 11/12/19 16:54 Temperature 34.9 C L Temperature Source Rectal Pulse Rate 48 L Pulse Rate from SpO2 Sensor 72 Respiratory Rate 22 Respiratory Depth Respiratory Pattern Blood Pressure Blood Pressure Mean Pulse Oximetry 96 Oxygen Delivery Method Nasal Cannula Oxygen Flow Rate 4 Sepsis Recent Fever Within 48 Hours Sepsis Action Taken by Nursing 11/12/19 17:00 11/12/19 17:01 11/12/19 17:22 Temperature Temperature Source Pulse Rate 40 L 43 L 69 Pulse Rate from SpO2 Sensor 71 71 Respiratory Rate 16 17 19 Respiratory Depth Respiratory Pattern Blood Pressure 133/84 Blood Pressure Mean 118 Pulse Oximetry 98 93 Oxygen Delivery Method Oxygen Flow Rate Sepsis Recent Fever Within 48 Hours Sepsis Action Taken by Nursing CONSTITUTIONAL/VITAL SIGNS: Reviewed / noted above. GENERAL: Non-toxic in appearance. INTEGUMENTARY: Warm, dry, and Gila. HEAD: Normocephalic. EYES: without scleral icterus or trauma. ENT/OROPHARYNX: clear and moist. LYMPHADENOPATHY/NECK: Is supple without lymphadenopathy or meningismus. RESPIRATORY: Lungs clear and equal. CARDIOVASCULAR: Regular rate and rhythm. GI/ABDOMEN: Right abdominal wall wound with pus on dressing but no active drainage. Soft and nontender. No organomegaly or pulsatile mass. No rebound or guarding. Normal bowel sounds. EXTREMITIES: Multiple distal extremity amputations, including left BKA. BACK: No CVA tenderness. NEUROLOGICAL: Unresponsive to verbal stimulus. Minimal response to painful stimulus. PSYCHIATRIC: normal affect. MUSCULOSKELETAL: Normally developed with good muscle tone. Course Course 1617: Past medical records reviewed. The patient was evaluated in room B07. A complete history and physical exam was performed. 1837: I spoke to Dr. Medrano, [facility] hospitalist, who agreed to take over care of the patient. The patient was updated and is agreeable. He will stay for further evaluation. Administered Medications Discontinued Medications Dextrose (Dextrose 50%) 50 ml IV NOW ONE Stop: 11/12/19 18:08 Last Admin: 11/12/19 18:15 Dose: 50 ml Documented by: [id number] Sodium Chloride (Nss 1000ml) 1,000 mls @ 999 mls/hr IV .[id number] MEGHAN Stop: 11/12/19 17:30 Last Infusion: 11/12/19 18:00 Dose: 0 mls/hr Documented by: [id number] Admin: 11/12/19 16:51 Dose: 999 mls/hr Documented by: [id number] Piperacillin Sod/Tazobactam Sod (Zosyn) 4.5 gm in 120 mls @ 240 mls/hr IV NOW ONE Stop: 11/12/19 16:54 Last Infusion: 11/12/19 17:36 Dose: 0 mls/hr Documented by: [id number] Admin: 11/12/19 17:00 Dose: 240 mls/hr Documented by: [id number] Critical Care Time Critical Care Time: Yes Total Critical Care Time: 40 I have personally spent 40 minutes of critical care time in the direct management of this patient. This includes bedside care, interpretation of diagnostic studies, and testing, discussion with consultants, patient, and family members, and other required patient management activities. This 40 minutes is in excess of all separately billable procedures. Medical Decision Making Differential Diagnosis Differential includes acute cardiac dysrhythmia, microinfarction, CVA, TIA, dehydration, anemia, electrolyte disturbance, seizure, trauma, intracranial bleeding, acute vascular catastrophe, thoracic aortic dissection, PE, abdominal aortic aneurysm rupture, infection, hypoglycemia, overdose, trauma. Medical Records Attestation: I reviewed the patient's medical records. Home Medications Current Medication List: was personally reviewed by me Laboratory Data Attestation: I reviewed the patient's lab results. Result diagrams: 11/12/19 16:21 11/12/19 16:21 Lab Results 11/12/19 11/12/19 11/12/19 Range/Units 16:12 16:21 16:21 WBC (4.8-10.8) K/uL RBC (4.7-6.1) M/uL Hgb (14.0-18.0) g/dL Hct (42-52) % MCV (80-100) fL MCH (25-34) pg MCHC (32-36) g/dL RDW Std Deviation (36.4-46.3) fL RDW Coeff of Bennett (11.5-14.5) % Plt Count (130-400) K/uL MPV (7.4-10.4) fL Immature Gran % (Auto) % Neut % (Auto) % Lymph % (Auto) % Traill % (Auto) % Eos % (Auto) % Baso % (Auto) % Immature Gran # (Auto) (0.00-0.02) K/uL Neut # (Auto) (1.4-6.5) K/uL Lymph # (Auto) (1.2-3.4) K/uL Traill # (Auto) (0.11-0.59) K/uL Eos # (Auto) (0-0.5) K/uL Baso # (Auto) (0-0.2) K/uL Hypochromasia Ovalocytes Acanthocytes (Spur) PT 13.1 H (9.0-12.0) Seconds INR 1.3 H (0.9-1.1) Sodium (136-145) mmol/L Potassium (3.5-5.1) mmol/L Chloride (98-107) mmol/L Carbon Dioxide (21-32) mmol/L Anion Gap (3-11) BUN (7-18) mg/dl Creatinine (0.6-1.4) mg/dl Est Cr Clr Drug Dosing ml/min Est GFR ( Amer) Est GFR (Non-Af Amer) BUN/Creatinine Ratio (10-20) Glucose (70-99) mg/dl POC Glucose 136 H (70-99) mg/dl Lactate 1.3 (0.4-2.0) mmol/L Calcium (8.5-10.1) mg/dl Magnesium (1.8-2.4) mg/dl Total Bilirubin (0.2-1) mg/dl AST (15-37) U/L ALT (12-78) U/L Alkaline Phosphatase (45-117) U/L Total Creatine Kinase (39-308) U/L Troponin I (0-0.045) ng/ml Total Protein (6.4-8.2) gm/dl Albumin (3.4-5.0) gm/dl Globulin (2.5-4.0) gm/dl Albumin/Globulin Ratio (0.9-2) TSH (0.300-4.500) uIu/ml Free T4 (0.8-1.6) ng/dl Urine Color Urine Appearance (Clear) Urine pH (4.5-7.5) Ur Specific [place] (1.000-1.030) Urine Protein (Negative) Urine Glucose (UA) (Negative) Urine Ketones (Negative) Urine Blood (Negative) Urine Nitrite (Negative) Urine Bilirubin (Negative) Urine Urobilinogen (Negative) Ur Leukocyte Esterase (Negative) Urine WBC (Auto) (0-5) /hpf Urine RBC (Auto) (0-4) /hpf U Hyaline Cast (Auto) (0-5) /lpf U Epithel Cells (Auto) (0-5) /lpf Urine Bacteria (Auto) (Negative) Influenza Type A (PCR) (Neg) Influenza Type B (PCR) (Neg) Crossmatch 11/12/19 11/12/19 11/12/19 Range/Units 16:21 16:21 16:45 WBC 5.21 (4.8-10.8) K/uL RBC 3.06 L (4.7-6.1) M/uL Hgb 7.4 L (14.0-18.0) g/dL Hct 26.1 L (42-52) % MCV 85.3 (80-100) fL MCH 24.2 L (25-34) pg MCHC 28.4 L (32-36) g/dL RDW Std Deviation 58.7 H (36.4-46.3) fL RDW Coeff of Bennett 18.8 H (11.5-14.5) % Plt Count 185 (130-400) K/uL MPV 9.3 (7.4-10.4) fL Immature Gran % (Auto) 0.4 % Neut % (Auto) 80.7 % Lymph % (Auto) 12.7 % Traill % (Auto) 3.5 % Eos % (Auto) 2.5 % Baso % (Auto) 0.2 % Immature Gran # (Auto) 0.02 (0.00-0.02) K/uL Neut # (Auto) 4.21 (1.4-6.5) K/uL Lymph # (Auto) 0.66 L (1.2-3.4) K/uL Traill # (Auto) 0.18 (0.11-0.59) K/uL Eos # (Auto) 0.13 (0-0.5) K/uL Baso # (Auto) 0.01 (0-0.2) K/uL Hypochromasia Present Ovalocytes 1+ Acanthocytes (Spur) 1+ PT (9.0-12.0) Seconds INR (0.9-1.1) Sodium 152 H (136-145) mmol/L Potassium 4.3 (3.5-5.1) mmol/L Chloride 123 H (98-107) mmol/L Carbon Dioxide 27 (21-32) mmol/L Anion Gap 2.0 L (3-11) BUN 40 H (7-18) mg/dl Creatinine 1.53 H (0.6-1.4) mg/dl Est Cr Clr Drug Dosing 56.0 ml/min Est GFR ( Amer) 53.0 Est GFR (Non-Af Amer) 45.7 BUN/Creatinine Ratio 25.9 H (10-20) Glucose 76 (70-99) mg/dl POC Glucose (70-99) mg/dl Lactate (0.4-2.0) mmol/L Calcium 8.7 (8.5-10.1) mg/dl Magnesium 2.4 (1.8-2.4) mg/dl Total Bilirubin 0.4 (0.2-1) mg/dl AST 17 (15-37) U/L ALT 18 (12-78) U/L Alkaline Phosphatase 86 (45-117) U/L Total Creatine Kinase 84 (39-308) U/L Troponin I < 0.015 (0-0.045) ng/ml Total Protein 7.7 (6.4-8.2) gm/dl Albumin 2.0 L (3.4-5.0) gm/dl Globulin 5.7 H (2.5-4.0) gm/dl Albumin/Globulin Ratio 0.4 L (0.9-2) TSH 8.220 H (0.300-4.500) uIu/ml Free T4 0.90 (0.8-1.6) ng/dl Urine Color Urine Appearance (Clear) Urine pH (4.5-7.5) Ur Specific [place] (1.000-1.030) Urine Protein (Negative) Urine Glucose (UA) (Negative) Urine Ketones (Negative) Urine Blood (Negative) Urine Nitrite (Negative) Urine Bilirubin (Negative) Urine Urobilinogen (Negative) Ur Leukocyte Esterase (Negative) Urine WBC (Auto) (0-5) /hpf Urine RBC (Auto) (0-4) /hpf U Hyaline Cast (Auto) (0-5) /lpf U Epithel Cells (Auto) (0-5) /lpf Urine Bacteria (Auto) (Negative) Influenza Type A (PCR) Neg for Influ A (Neg) Influenza Type B (PCR) Neg for Influ B (Neg) Crossmatch 11/12/19 11/12/19 11/12/19 Range/Units 16:55 17:25 17:55 WBC (4.8-10.8) K/uL RBC (4.7-6.1) M/uL Hgb (14.0-18.0) g/dL Hct (42-52) % MCV (80-100) fL MCH (25-34) pg MCHC (32-36) g/dL RDW Std Deviation (36.4-46.3) fL RDW Coeff of Bennett (11.5-14.5) % Plt Count (130-400) K/uL MPV (7.4-10.4) fL Immature Gran % (Auto) % Neut % (Auto) % Lymph % (Auto) % Traill % (Auto) % Eos % (Auto) % Baso % (Auto) % Immature Gran # (Auto) (0.00-0.02) K/uL Neut # (Auto) (1.4-6.5) K/uL Lymph # (Auto) (1.2-3.4) K/uL Traill # (Auto) (0.11-0.59) K/uL Eos # (Auto) (0-0.5) K/uL Baso # (Auto) (0-0.2) K/uL Hypochromasia Ovalocytes Acanthocytes (Spur) PT (9.0-12.0) Seconds INR (0.9-1.1) Sodium (136-145) mmol/L Potassium (3.5-5.1) mmol/L Chloride (98-107) mmol/L Carbon Dioxide (21-32) mmol/L Anion Gap (3-11) BUN (7-18) mg/dl Creatinine (0.6-1.4) mg/dl Est Cr Clr Drug Dosing ml/min Est GFR ( Amer) Est GFR (Non-Af Amer) BUN/Creatinine Ratio (10-20) Glucose (70-99) mg/dl POC Glucose 73 68 L* (70-99) mg/dl Lactate (0.4-2.0) mmol/L Calcium (8.5-10.1) mg/dl Magnesium (1.8-2.4) mg/dl Total Bilirubin (0.2-1) mg/dl AST (15-37) U/L ALT (12-78) U/L Alkaline Phosphatase (45-117) U/L Total Creatine Kinase (39-308) U/L Troponin I (0-0.045) ng/ml Total Protein (6.4-8.2) gm/dl Albumin (3.4-5.0) gm/dl Globulin (2.5-4.0) gm/dl Albumin/Globulin Ratio (0.9-2) TSH (0.300-4.500) uIu/ml Free T4 (0.8-1.6) ng/dl Urine Color Red Urine Appearance Turbid A (Clear) Urine pH 5.0 (4.5-7.5) Ur Specific [place] 1.025 (1.000-1.030) Urine Protein 2+ H (Negative) Urine Glucose (UA) Negative (Negative) Urine Ketones Negative (Negative) Urine Blood 3+ H (Negative) Urine Nitrite Positive A (Negative) Urine Bilirubin Negative (Negative) Urine Urobilinogen Negative (Negative) Ur Leukocyte Esterase 2+ H (Negative) Urine WBC (Auto) 10-30 H (0-5) /hpf Urine RBC (Auto) >30 H (0-4) /hpf U Hyaline Cast (Auto) 0 (0-5) /lpf U Epithel Cells (Auto) 5-10 H (0-5) /lpf Urine Bacteria (Auto) Negative (Negative) Influenza Type A (PCR) (Neg) Influenza Type B (PCR) (Neg) Crossmatch 11/12/19 11/12/19 Range/Units 18:05 18:21 WBC (4.8-10.8) K/uL RBC (4.7-6.1) M/uL Hgb (14.0-18.0) g/dL Hct (42-52) % MCV (80-100) fL MCH (25-34) pg MCHC (32-36) g/dL RDW Std Deviation (36.4-46.3) fL RDW Coeff of Bennett (11.5-14.5) % Plt Count (130-400) K/uL MPV (7.4-10.4) fL Immature Gran % (Auto) % Neut % (Auto) % Lymph % (Auto) % Traill % (Auto) % Eos % (Auto) % Baso % (Auto) % Immature Gran # (Auto) (0.00-0.02) K/uL Neut # (Auto) (1.4-6.5) K/uL Lymph # (Auto) (1.2-3.4) K/uL Traill # (Auto) (0.11-0.59) K/uL Eos # (Auto) (0-0.5) K/uL Baso # (Auto) (0-0.2) K/uL Hypochromasia Ovalocytes Acanthocytes (Spur) PT (9.0-12.0) Seconds INR (0.9-1.1) Sodium (136-145) mmol/L Potassium (3.5-5.1) mmol/L Chloride (98-107) mmol/L Carbon Dioxide (21-32) mmol/L Anion Gap (3-11) BUN (7-18) mg/dl Creatinine (0.6-1.4) mg/dl Est Cr Clr Drug Dosing ml/min Est GFR ( Amer) Est GFR (Non-Af Amer) BUN/Creatinine Ratio (10-20) Glucose (70-99) mg/dl POC Glucose 42 L* (70-99) mg/dl Lactate (0.4-2.0) mmol/L Calcium (8.5-10.1) mg/dl Magnesium (1.8-2.4) mg/dl Total Bilirubin (0.2-1) mg/dl AST (15-37) U/L ALT (12-78) U/L Alkaline Phosphatase (45-117) U/L Total Creatine Kinase (39-308) U/L Troponin I (0-0.045) ng/ml Total Protein (6.4-8.2) gm/dl Albumin (3.4-5.0) gm/dl Globulin (2.5-4.0) gm/dl Albumin/Globulin Ratio (0.9-2) TSH (0.300-4.500) uIu/ml Free T4 (0.8-1.6) ng/dl Urine Color Urine Appearance (Clear) Urine pH (4.5-7.5) Ur Specific [place] (1.000-1.030) Urine Protein (Negative) Urine Glucose (UA) (Negative) Urine Ketones (Negative) Urine Blood (Negative) Urine Nitrite (Negative) Urine Bilirubin (Negative) Urine Urobilinogen (Negative) Ur Leukocyte Esterase (Negative) Urine WBC (Auto) (0-5) /hpf Urine RBC (Auto) (0-4) /hpf U Hyaline Cast (Auto) (0-5) /lpf U Epithel Cells (Auto) (0-5) /lpf Urine Bacteria (Auto) (Negative) Influenza Type A (PCR) (Neg) Influenza Type B (PCR) (Neg) Crossmatch See Detail Imaging Data Radiologist's Impression: Radiology results as stated below per my review and the radiologist's interpretation: XR chest 1V portable HISTORY: 69 years-old Male weakness acute weakness COMPARISON: Chest radiograph 10/10/2019 TECHNIQUE: Portable AP view of the chest FINDINGS: Cardiac silhouette is enlarged, unchanged. Left subclavian pacer. Pulmonary vascular congestion with interstitial coarsening. Right greater than left pleural effusions and bibasilar densities. There is no pneumothorax. Degenerative changes of the shoulders and spine. IMPRESSION: 1. Cardiomegaly with pulmonary edema. 2. Right greater than left pleural effusions and bibasilar opacities are suggestive of atelectasis with pneumonitis considered less likely. ACT 112: Negative or not required by law. The above report was generated using voice recognition software. It may contain grammatical, syntax or spelling errors. Electronically signed by: Rolan Patterson M.D. 11/12/2019 4:[address] head/brain wo con CLINICAL HISTORY: 69 years-old Male presenting with unresponsive. TECHNIQUE: Multidetector CT imaging of the head was performed without the use of intravenous contrast. IV contrast: None. One or more dose lowering techniques were used consistent with the principles of ALARA (as low as reasonably achievable), including automatic exposure control, mA or kV adjustment to individual patient size, and/or use of iterative reconstruction. COMPARISON: 03/01/2018. CT DOSE (mGy.cm): The estimated cumulative dose is 3446.84 mGy.cm. FINDINGS: Benefits Representative topogram: Unremarkable. Proportional ventricular and sulcal prominence, likely age-related parenchymal volume loss. No hemorrhage. Mild periventricular and subcortical white matter hypoattenuation, nonspecific but likely indicative of chronic small vessel ischemic change. 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 No acute territorial infarct. No mass effect or midline shift. No extra-axial fluid collection. Paranasal sinuses and mastoid air cells clear. Calvarium intact. Significant soft tissue swelling posteriorly at the base of the skull with hermes cherri. Intravascular gas noted in the face. IMPRESSION: 1. Mild chronic small vessel ischemic change and old lacunar infarcts in the right basal ganglia, unchanged. No acute intracranial abnormality. 2. Subcutaneous contusion with trace hematoma in the posterior base of the neck at the skull base. ACT 112: Negative or not required by law. Electronically signed by: Jaydon Ghosh M.D. 11/12/2019 5:28 [address] AND PELVIS CT WITHOUT CONTRAST HISTORY: Acute left lower quadrant abdominal pain. The patient is reportedly unresponsive unresponsive, llq tenderness, pus from rt side abd TECHNIQUE: Multiaxial CT images of the abdomen and pelvis were performed without contrast. A dose lowering technique was utilized adhering to the principles of ALARA. COMPARISON STUDY: CT abdomen and pelvis 11/08/2019 FINDINGS: Exam secondary to upper extremity positioning and overlying telemetry leads resulting in artifact. Trace pleural effusions are noted with dependent bibasilar groundglass and consolidative opacities, gradually worsened from comparison. There is no pneumatosis or pneumoperitoneum. Cardiomegaly with partially imaged pacer leads. The spleen is mildly enlarged. The pancreas, and adrenal glands are unremarkable. The gallbladder is not well visualized and is likely contracted with cholelithiasis. The liver appears unremarkable. There is mild symmetric bilateral hydroureteronephrosis with perinephric stranding. Delayed contrast is noted within the collecting systems and ureters. No obstructing mass or lesion. Moderate wall thickening of the urinary bladder with distention. Crosstable megaly. Newby catheter balloon is inflated within the mid prostate. Calcific plaque the abdominal aorta. Prominent retroperitoneal lymph nodes are redemonstrated and appear unchanged. No drainable fluid collection. No bowel obstruction or bowel wall thickening. Trace abdominal pelvic ascites. Colonic diverticulosis without acute diverticulitis. Visualized appendix is unremarkable. Anasarca with unchanged calcifications and soft tissue nodularity of the anterior abdominal wall suggestive of injection granulomata. Gynecomastia. Degenerative changes of the spine, pelvis and hips. Nonunion of late subacute or chronic appearing fractures of the posterolateral right eighth through 11th ribs. IMPRESSION: 1. Volume overload with anasarca, trace pleural effusions with trace abdominal pelvic ascites. 2. Malpositioned Newby catheter with balloon inflated within the prostatic urethra. Repositioning is needed. 3. Moderate urinary bladder distention with bilateral hydroureteronephrosis. 4. Contrast in the renal collecting systems, ureters and urinary bladder, likely from contrast enhanced study 4 days prior. Findings are compatible with decreased renal function. 5. Splenomegaly. 6. Additional findings as above. ACT 112: Negative or not required by law. The above report was generated using voice recognition software. It may contain grammatical, syntax or spelling errors. Electronically signed by: Rolan Patterson M.D. 11/12/2019 5:47 PM ECG Data Attestation: I personally reviewed and interpreted this ECG as follows: Indication: + other (unresponsive, hypoglycemia) Rate (beats per minute): 75 Rhythm: + other (paced ventricular rhythm) ECG Intervals/blocks: + Prolonged QT ECG ST segments: no ST elevation ECG Findings: no PVCs Blood Pressure Blood Pressure Findings: Elevated blood pressure Blood Pressure Disposition: further management by hospitalist ROBERTO Narrative Continuous Cardiac Monitoring: An order was placed for continuous cardiac monitoring. The monitor shows a rate of 74 with paced ventricular rhythm. Is a 69-year-old male who presents to the ED with a chief complaint of unresponsiveness and hypoglycemia. The patient has had problematic hypoglycemia since 2 AM this morning at [facility]. They gave him several IM doses of glucagon between 2 AM and 8 AM to keep his blood sugars up. The patient was found unresponsive this afternoon and brought to the ED for evaluation. EMS found the patient to have a blood sugar of 31 when they arrived on scene. They gave an a bag of D10 and the blood sugar improved to 84 and then dropped again to 56. They gave a second bag of D10 and the blood sugar was 136 upon arrival here. The patient did not regain consciousness or have any purposeful functionality with a normal blood sugar. On my exam, the patient is unrespons sterling to verbal and and painful stimuli other than possibly a small grimace or cough with painful stimuli. The patient does not have any obvious trauma. His lungs appear to be clear. His abdomen has a small bandage overlying a right- sided abdominal wound that has some purulent drainage on the dressing although no drainage was expressible. The patient did initially seem to have some left lower quadrant tenderness on initial exam although on repeat exam it does not appear to be present. The patient has multiple extremity amputations including a left BKA and multiple digits amputated. The patient is a DNR. Every hour BSG's have been ordered and the nurse was made aware. Vital signs revealed mild hypertension. After a couple of hours here in the emergency department, the patient did have recurrent hypoglycemia and his blood sugar dropped to 44. He was given an amp of D50 and started on a D10 drip. The patient's twelve-lead EKG shows a ventricular paced rhythm at a rate of 75. A CT scan of the brain did not show acute process. A CT scan of the abdomen and pelvis reveals anasarc a and a Newby inflated in the air of the prostate as well as some bladder distention. This was fixed by the nurse and the bladder was drained. His hemoglobin is 7.4. He did have a blood transfusion in the past couple of days. The patient's BUN is 40 and his creatinine is 1.53. Troponin is negative. Sodium is 152 and chloride is 123. Flu swab was negative. The patient was given IV fluids normal saline 1 L was given. He was also given the amp of D50 and dextrose drip and half-normal saline was initiated. The patient was given empiric antibiotics. The nursing staff did say that his mental status improved a little bit when he was over a CT scan. The patient will require further evalu ation and care for his recurrent hypoglycemia as well as altered mental state. A blood transfusion has been ordered as his hemoglobin is 7.4. The patient's urinalysis is suggestive of urinary tract infection. He was given empiric dose of Zosyn IV earlier. Impression & Plan Altered mental state, Anemia, Hypoglycemia, coma, Acute hypernatremia, Complication of Newby catheter, Acute UTI Discharge Plan Visit Data Chief Complaint: Hypoglycemia Stated Complaint: HYPOGLYCEMIA ED Provider: Mick Bae Discharge Problem: Altered mental state, Anemia, Hypoglycemia, coma, Acute hypernatremia, Complication of Newby catheter, Acute UTI Forms Stand Alone Forms: [facility], Important Visit Information Prescriptions Prescriptions: No Action levothyroxine 100 mcg Tablet 100 mcg PO QAM RF: 0 bisacodyl [Dulcolax (bisacodyl)] 10 mg Suppository 10 mg TN DAILY PRN (Reason: Constipation) RF: 0 finasteride 5 mg Tablet 5 mg PO QAM RF: 0 risperidone [Risperdal] 0.5 mg Tablet 0.25 mg PO BID RF: 0 Levemir U-100 Insulin 100 unit/mL Solution 15 unit SUBCUT QAM RF: 0 ferrous gluconate 324 mg (38 mg iron) tablet 324 mg PO BID RF: 0 allopurinol [Zyloprim] 300 mg tablet 300 mg PO QAM RF: 0 isosorbide mononitrate 30 mg tablet extended release 24 hr 15 mg PO QAM RF: 0 sertraline 100 mg tablet 100 mg PO QAM RF: 0 ascorbic acid (vitamin C) [Vitamin C] 500 mg Tablet 500 mg PO QAM RF: 0 Novolin R Regular U-100 Insuln 100 unit/mL solution 0 unit subcut DIRECTED RF: 0 aspirin 81 mg Tablet,Chewable 81 mg PO QAM RF: 0 metoprolol succinate 25 mg tablet extended release 24 hr 25 mg PO BID RF: 0 atorvastatin 80 mg tablet 80 mg PO DAILY RF: 0 potassium chloride 10 mEq capsule, extended release 10 meq PO DAILY RF: 0 melatonin 3 mg Tablet 3 mg PO HS PRN (Reason: Insomnia) RF: 0 tamsulosin 0.4 mg Capsule 0.4 mg PO QAM 30 Days Qty: 30 RF: 0 Referrals Referrals: Deonte Truong [Primary Care Provider] - Discharge Problem: Altered mental state Qualifiers: Altered mental status type: coma Coma depth: Toby coma 3-8 Coma timing: in the field (EMT or ambulance) Qualified Code(s): R40.2431 - [place] coma scale score 3-8, in the field [EMT or ambulance] Anemia Qualifiers: Anemia type: unspecified type Qualified Code(s): D64.9 - Anemia, unspecified Complication of Newby catheter Qualifiers: Encounter type: initial encounter Qualified Code(s): T83.9XXA - Unspecified complication of genitourinary prosthetic device, implant and graft, initial encounter The scribe's documentation has been prepared under my direction and personally reviewed by me in its entirety. I confirm that the note above accurately ref lects all work, treatment, procedures, and medical decision making performed by me.
[2019-11-12 16:43] LABS: Basophils # (auto) 0.01 K/uL (0-0.2); Basophils % (auto) 0.2 %; Eosinophils # (auto) 0.13 K/uL (0-0.5); Eosinophils % (auto) 2.5 %; Hematocrit (blood only) 26.1 % (42-52); Hemoglobin 7.4 g/dL (14.0-18.0); Immature Granulocytes # (auto) 0.02 K/uL (0.00-0.02); Immature Granulocytes % (auto) 0.4 %; Lymphocytes # (auto) 0.66 K/uL (1.2-3.4); Lymphocytes % (auto) 12.7 %; Mean Corpuscular Hemoglobin 24.2 pg (25-34); Mean Corpuscular Hgb Conc 28.4 g/dL (32-36); Mean Corpuscular Volume 85.3 fL (80-100); Mean Platelet Volume 9.3 fL (7.4-10.4); Monocytes # (auto) 0.18 K/uL (0.11-0.59); Monocytes % (auto) 3.5 %; Neutrophils # (auto) 4.21 K/uL (1.4-6.5); Neutrophils % (auto) 80.7 %; Platelet Count 185 K/uL (130-400); RDW Coefficient of Variation 18.8 % (11.5-14.5); RDW Standard Deviation 58.7 fL (36.4-46.3); Red Blood Count 3.06 M/uL (4.7-6.1); White Blood Count 5.21 K/uL (4.8-10.8)
[2019-11-12 16:54] LABS: INR 1.3 (0.9-1.1); Prothrombin Time 13.1 Seconds (9.0-12.0)
--- NOTE | 2019-11-12 16:59 | XRay Report ---
XR chest 1V portable HISTORY: 69 years-old Male weakness acute weakness COMPARISON: Chest radiograph 10/10/2019 TECHNIQUE: Portable AP view of the chest FINDINGS: Cardiac silhouette is enlarged, unchanged. Left subclavian pacer. Pulmonary vascular congestion with interstitial coarsening. Right greater than left pleural effusions and bibasilar densities. There is no pneumothorax. Degenerative changes of the shoulders and spine. IMPRESSION: 1. Cardiomegaly with pulmonary edema. 2. Right greater than left pleural effusions and bibasilar opacities are suggestive of atelectasis wi th pneumonitis considered less likely. ACT 112: Negative or not required by law. The above report was generated using voice recognition software. It may contain grammatical, syntax o r spelling errors. Electronically signed by: Rolan Patterson M.D. 11/12/2019 4:57 PM
[2019-11-12 17:06] LABS: Alanine Aminotransferase 18 U/L (12-78); Aspartate Aminotransferase 17 U/L (15-37); BUN Creatinine Ratio 25.9 (10-20); Blood Urea Nitrogen 40 mg/dl (7-18); Calcium 8.7 mg/dl (8.5-10.1); Carbon Dioxide 27 mmol/L (21-32); Chloride 123 mmol/L (98-107); Est GFR (Non-African American) 45.7; Glucose 76 mg/dl (70-99); Magnesium 2.4 mg/dl (1.8-2.4); Potassium 4.3 mmol/L (3.5-5.1); Sodium 152 mmol/L (136-145)
[2019-11-12 17:11] LABS: Acanthocytes 1+; Hypochromasia Present; Ovalocytes 1+
[2019-11-12 17:16] LABS: Albumin Globulin Ratio 0.4 (0.9-2); Alkaline Phosphatase 86 U/L (45-117); Bilirubin,Total 0.4 mg/dl (0.2-1); Creatine Kinase 84 U/L (39-308); Globulin 5.7 gm/dl (2.5-4.0); Total Protein 7.7 gm/dl (6.4-8.2); Troponin I < 0.015 ng/ml (0-0.045)
--- NOTE | 2019-11-12 17:29 | CT Scan Report ---
CT head/brain wo con CLINICAL HISTORY: 69 years-old Male presenting with unresponsive. TECHNIQUE: Multidetector CT imaging of the head was performed without the use of intravenous contrast . IV contrast: None. One or more dose lowering techniques were used consistent with the principles of ALARA (as low as reasonably achievable), including automatic exposure control, mA or kV adjustment t o individual patient size, and/or use of iterative reconstruction. COMPARISON: 03/01/2018. CT DOSE (mGy.cm): The estimated cumulative dose is 3446.84 mGy.cm. FINDINGS: Assignment Editor topogram: Unremarkable. Proportional ventricular and sulcal prominence, likely age-related parenchymal volume loss. No hemorr rachelle. Mild periventricular and subcortical white matter hypoattenuation, nonspecific but likely indic ative of chronic small vessel ischemic change. Old lacunar infarcts in the right basal ganglia, uncha nged. No acute territorial infarct. No mass effect or midline shift. No extra-axial fluid collection. Paranasal sinuses and mastoid air cells clear. Calvarium intact. Significant soft tissue swelling po steriorly at the base of the skull with hematoma. Intravascular gas noted in the face. IMPRESSION: 1. Mild chronic small vessel ischemic change and old lacunar infarcts in the right basal ganglia, un changed. No acute intracranial abnormality. 2. Subcutaneous contusion with trace hematoma in the posterior base of the neck at the skull base. ACT 112: Negative or not required by law. Electronically signed by: Jaydon Ghosh M.D. 11/12/2019 5:28 PM
--- NOTE | 2019-11-12 17:48 | CT Scan Report ---
ABDOMEN AND PELVIS CT WITHOUT CONTRAST HISTORY: Acute left lower quadrant abdominal pain. The patient is reportedly unresponsive unresponsi ve, llq tenderness, pus from rt side abd TECHNIQUE: Multiaxial CT images of the abdomen and pelvis were performed without contrast. A dose lo wering technique was utilized adhering to the principles of ALARA. COMPARISON STUDY: CT abdomen and pelvis 11/08/2019 FINDINGS: Exam secondary to upper extremity positioning and overlying telemetry leads resulting in artifact. Tr zuleima pleural effusions are noted with dependent bibasilar groundglass and consolidative opacities, gra dually worsened from comparison. There is no pneumatosis or pneumoperitoneum. Cardiomegaly with parti ally imaged pacer leads. The spleen is mildly enlarged. The pancreas, and adrenal glands are unremark able. The gallbladder is not well visualized and is likely contracted with cholelithiasis. The liver appears unremarkable. There is mild symmetric bilateral hydroureteronephrosis with perinephric stranding. Delayed contrast is noted within the collecting systems and ureters. No obstructing mass or lesion. Moderate wall thic kening of the urinary bladder with distention. Crosstable megaly. Newby catheter balloon is inflated within the mid prostate. Calcific plaque the abdominal aorta. Prominent retroperitoneal lymph nodes a re redemonstrated and appear unchanged. No drainable fluid collection. No bowel obstruction or bowel wall thickening. Trace abdominal pelvic ascites. Colonic diverticulosis without acute diverticulitis. Visualized appendix is unremarkable. Anasarca with unchanged calcifica tions and soft tissue nodularity of the anterior abdominal wall suggestive of injection granulomata. Gynecomastia. Degenerative changes of the spine, pelvis and hips. Nonunion of late subacute or chroni c appearing fractures of the posterolateral right eighth through 11th ribs. IMPRESSION: 1. Volume overload with anasarca, trace pleural effusions with trace abdominal pelvic ascites. 2. Malpositioned Newby catheter with balloon inflated within the prostatic urethra. Repositioning is needed. 3. Moderate urinary bladder distention with bilateral hydroureteronephrosis. 4. Contrast in the renal collecting systems, ureters and urinary bladder, likely from contrast enhanc ed study 4 days prior. Findings are compatible with decreased renal function. 5. Splenomegaly. 6. Additional findings as above. ACT 112: Negative or not required by law. The above report was generated using voice recognition software. It may contain grammatical, syntax o r spelling errors. Electronically signed by: Rolan Patterson M.D. 11/12/2019 5:47 PM
[2019-11-12] MEDS ORDERED: DEXTROSE 50% 50 ML SYRINGE IV ONE ×2 (18:07→19:34)
[2019-11-12] MEDS ORDERED: SODIUM CHLORIDE 0.9% 250 ML IV PRN ×2 (18:09→20:54)
[2019-11-12] MEDS ORDERED: SODI CHLOR 2.5MEQ/ML 14.6% 77 MEQ in DEXTROSE 10% 1,000 ML IV SCH (18:15)
[2019-11-12 18:17] LABS: Appearance Urine Turbid (Clear); Bacteria Urine Automated Negative (Negative); Blood Urine 3+ (Negative); Cast Urine Automated 0 /lpf (0-5); Color Urine Red; Glucose Urine UA Negative (Negative); Ketones Urine Negative (Negative); Leukocyte Esterase Urine 2+ (Negative); Nitrite Urine Positive (Negative); Protein Urine 2+ (Negative); RBC Urine Automated >30 /hpf (0-4); Specific Gravity Urine 1.025 (1.000-1.030); Urobilinogen Urine Negative (Negative)
[2019-11-12 18:17] LABS: Influenza A virus by PCR Neg for Influ A (Neg); Influenza B virus by PCR Neg for Influ B (Neg)
[2019-11-12 18:35] LABS: Bilirubin Urine Negative (Negative); Ictotest Urine Negative (Negative)
--- NOTE | 2019-11-12 20:08 | History & Physical Report ---
Date of Service November 12, 2019 Assessment & Plan (1) Hypoglycemia, coma: Patient has severe hypoglycemia since 2 AM this morning. It is not completely clear what occurred and why he became so hypoglycemic. Hold hypoglycemic agents such as home dose of detemir, carefully administer sliding scale insulin only in case if patient current blood sugar is above 200. Recommended mild dosing of insulin if needed later on during the night. Patient has very low glucagon reserves and even small doses of insulin can bring him back to hypoglycemia. Blood sugar and hypoglycemia to be managed by pharmacy. Started D5 water at 80 cc/h since patient has hypernatremia as well. Monitor BMP every 6 hours. Readjust IV fluid as needed to prevent quick correction of elevated sodium, while in the meantime we are correcting hypoglycemia. Patient is in compensated metabolic acidosis for an unclear reason. DVT prophylaxis SCDs and teds CODE STATUS DNR/DNI Present on Admission?: Yes (2) Altered mental state: Could be related to encephalopathy due to hypoglycemia, hypernatremia, prior stroke, debilitated status. Per patient patient is most of the time alert but unable to speak. This morning he was able to eat some pudding because he also has swallowing issue but later on during the day became unresponsive because of hypoglycemia as they think. Present on Admission?: Yes (3) Anemia: Patient has hematuria currently. It is ongoing. Continue monitoring H&H every 6 hours. Patient's consented blood transfusion. Patient received another blood transfusion on November 06 when his hemoglobin was only 6.8. His H&H is 7.4 at this time, less than 8 and patient is profusely bleeding as we are speaking. We will give 1 unit of blood at this time, and repeat. Patient possibly will need another unit of blood at a later time. Continue vitamin C 500 mg p.o. every morning and laurita gluconate 324 mg p.o. twice daily once when patient is awake. Hold for now because patient is still sleepy Present on Admission?: Yes (4) Acute hypernatremia: As discussed above Present on Admission?: Yes (5) Complication of Newby catheter: Newby catheter repositioned, Consulted urology Continue finasteride 5 mg p.o. every morning once when patient is awake. Present on Admission?: Yes (6) Acute UTI: Patient was already started on ertapenem 1 g daily on November 10 per genital specimen culture that was done in his PCP office. Patient grew Morganella morganii. Will switch ertapenem 1 g IM to 1 g IV. Follow up with new urine culture, Follow-up with blood cultures Present on Admission?: Yes (7) Chronic kidney insufficiency: Patient baseline creatinine was higher than today between 2.14, 1.93, 1.44 and today is 1.53. His kidney function fluctuates. Monitor creatinine and avoid nephrotoxic agents. Present on Admission?: Yes (8) Acute urinary retention: Maintain Newby catheter in the right position. Consulted urology Present on Admission?: Yes (9) Bilateral hydronephrosis: As the above. Present on Admission?: Yes (10) Hyperlipidemia: Lipid panel pending, continue atorvastatin 80 mg p.o. nightly once when patient wake up. Present on Admission?: Yes (11) Hypertension: At this time patient blood pressure is at the lower side. Hold metoprolol 25 mg p.o. every 12 hours if heart rate less than 70. Present on Admission?: Yes (12) Hematoma of neck: Would consider repeating CT scan of the head in a.m. to make sure that hematoma is not enlarging. Per patient patient has frequent falls. Present on Admission?: Yes (13) Hypothyroidism: TSH is improving and T4 is normal now in comparison to November 01, 2019. Continue level thyroxine 100 MCG's p.o. every morning. Present on Admission?: Yes (14) Gout: Stable, continue allopurinol 300 mg p.o. every morning when patient wakes up. Present on Admission?: Yes History of Present Illness Chief Complaint: Severe hypoglycemia Primary Care Provider: [facility] The patient is a 69 years old male permanent resident of [facility] with past medical history of chronic systolic congestive heart failure, coronary artery disease, neuropathy due to type 2 diabetes mellitus, DKA, history of ICD defibrillator, diabetic retinopathy, dyslipidemia, hypothyroidism , diabetes type 2, hypertension, transaminitis, indwelling Newby catheter, obstructive uropathy, who was brought to the emergency room by EMS s/p he was found unresponsive in the half-way and his blood sugar was 31. His hypoglycemia started approximately 2 AM and patient had difficulty to keep her sugars up. Patient received 3 IM doses of glucagon with the last dose being at 8 AM. He was responsible and eating pudding and juice earlier and had no insulin today. About an hour an hour and half ago patient went unresponsive. Even though he received 3 doses of IV glucose D5. Patient also has Newby catheter inserted in the [facility] and the Newby bag is full of blood. Patient is at the bedside and and she stated that patient wants to be DNR/DNI. Patient said that blood in urine has been ongoing for couple of days and that patient needed transfusion 5 days ago.Patient is obtunded and it is impossible to reviewed systems with him. Patient also stated that she would not like any heroic measures to be taken. Patient receives ertapenem 1 mg IM daily for complicated UTI in the half-way started on 11/11/2019 and prescribed by JIM Black at [facility] He was recently discharged on 10/15/2019 and at that time he was on cefuroxime 250 mg p.o. twice daily for 7 days. On November 03, 2019 patient grew Morganella morganii from the genital specimen sensitive to ertapenem. Blood cultures x2 are pending as well as urine culture.Labs are reviewed: WBC is 5.21, hemoglobin 7.4, from 6.8 on November 06 when patient received another unit of blood. Hematocrit 26.1 today, platelets 185, blood gas: ABG pH 7.28, ABG PCO2 54, ABG PO2 79, ABG HCO3 25, sodium 152, potassium 4.3, chloride 123, carbon dioxide 23, anion gap 2, BUN 40, creatinine 1.53, GFR 45.7, glucose 73, 68, 42, 92, 74, 141, 144, 89, 96, lactate 1.3, calcium 8.7, magnesium 2.4, total bilirubin 0.4, AST 17, ALT 18, alkaline phosphatase 86, pain 0.015 , TSH 8.22, free T4 0.9. Urine turbid, protein 2+, urine blood 3+, nitrate positive, leukocyte esterase 2+, urine WBCs 10-30, urine RBCs 30, hyaline cast 0, epithelial cells 5-10. Influenza A and B neg. CT abdomen and pelvis: Volume overload with anasarca, trace pleural effusion with trace abdominal pelvic ascites. Malpositioned Newby catheter with balloon inflated within the prostatic urethra. Repositioning is needed. Moderate urinary bladder distention with bilateral hydroureteronephrosis. Contrast in the renal collecting system, ureters and urinary bladder likely from contrast enhanced study 4 days prior. Findings are compatible with decreased renal function. Splenomegaly. CT of the head shows mild chronic small vessel ischemic changes and old lacunar infarcts in the right basal ganglia, unchanged. No acute intracranial abnormality. Subcutaneous contusion with trace hematoma in the posterior base of the neck at the skull base. Chest x-rays: Cardiomegaly with pulmonary edema. Right greater than left pleural effusion and bibasilar opacities are suggestive of atelectasis with pneumonitis considering less likely. Decision was made to admit patient to PCU on telemetry for further evaluation and treatment of hypoglycemia, pulmonary edema, left pleural effusion , acute respiratory failure, altered mental status, frequent falls and other multiple comorbidities. Allergies Allergy/AdvReac Type Severity Reaction Status Date / Time gemfibrozil Allergy Unknown Unknown Verified 11/12/19 18:08 Home Medications Home Medications Medication Instructions Recorded Confirmed Type allopurinol [Zyloprim] 300 mg PO QAM 04/10/19 11/12/19 History ascorbic acid (vitamin C) [Vitamin 500 mg PO QAM 04/23/19 11/12/19 History C] aspirin 81 mg PO QAM 04/23/19 11/12/19 History isosorbide mononitrate 15 mg PO QAM 04/23/19 11/12/19 History sertraline 100 mg PO QAM 04/23/19 11/12/19 History atorvastatin 80 mg PO HS 10/10/19 11/12/19 History melatonin 3 mg PO HS PRN 10/10/19 11/12/19 History potassium chloride 10 meq PO QAM 10/10/19 11/12/19 History tamsulosin 0.4 mg PO QAM 30 Days #30 cap 10/15/19 11/12/19 Rx bisacodyl [Dulcolax (bisacodyl)] 10 mg UT DIRECTED PRN 11/08/19 11/12/19 History ferrous gluconate 324 mg PO BID 11/08/19 11/12/19 History finasteride 5 mg PO QAM 11/08/19 11/12/19 History insulin detemir U-100 [Levemir 15 unit SUBCUT QAM 11/08/19 11/12/19 History U-100 Insulin] levothyroxine 100 mcg PO QAM 11/08/19 11/12/19 History risperidone [Risperdal] 0.25 mg PO BID 11/08/19 11/12/19 History Lidocaine Hcl 1% 1 vial IM DIRECTED 11/12/19 History acetaminophen 650 mg PO Q6H PRN 11/12/19 11/12/19 History ertapenem 1 g IM DAILY 11/12/19 11/12/19 History glucagon HCl [Glucagon (HCl) 1 mg IM DIRECTED PRN 11/12/19 11/12/19 History Emergency Kit] insulin aspart U-100 [Novolog 1 sliding scale dose SUBCUT 11/12/19 11/12/19 History U-100 Insulin aspart] USEASDIRECTD PRN magnesium hydroxide [Milk of 30 ml PO DIRECTED PRN 11/12/19 11/12/19 History Magnesia] metoprolol tartrate 25 mg PO Q12H 11/12/19 11/12/19 History multivitamin with minerals 1 tab PO QAM 11/12/19 11/12/19 History [Multiple Vitamin-Minerals] polyethylene glycol 3350 [Miralax] 17 g PO DAILY 11/12/19 11/12/19 History sodium phosphates [Fleet Enema] 118 ml UT DIRECTED PRN 11/12/19 11/12/19 History Past Med/Surg History Medical History Adjustment disorder with depressed mood (Chronic) Biventricular ICD (implantable cardioverter-defibrillator) in place (Chronic) CAD (coronary artery disease) (Chronic) "s/p stent to LAD in 04/2014" Chronic systolic CHF (congestive heart failure) (Chronic) On 09/07/15 13:04 Maren Reddy wrote "echo 10/08/14- LV cavity size moderately enlarged, mild concentric LVH, diffuse moderate LV hypokinesis with superimposed more severe hypokinesis/akinesis involving the mid and apical inferior wall, anterior septum, and LV apex. LV apex is akinetic. 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) Surgical History History of implantable cardioverter-defibrillator (ICD) placement (Chronic) Hx of BKA (Chronic) "left" S/P coronary artery stent placement (Chronic) "CLAUDINE to LAD in 04/2014" Family History Other Family history non-contributory Social History Preferred Language: Mongolian Communication Ability: Impaired 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: No Beliefs That Will Affect Care: None marital status: Current Living Situation: Detention Current Living Situation Comment: [facility] Other Information That Helps Us Care for You: No Feels Safe at Home: Yes Safety Concerns: Feels Safe At This Time Smoking Status: Never smoker Hx Alcohol Use: No Hx Substance Use: No Review of Systems Review of Systems: All systems reviewed & are unremarkable except as noted in HPI & below Physical Exam Constitutional: WD/WN, vitals as above well developed, + ill appearing, + intoxicated appearing, + altered mental status, + behavioral limitations, + disheveled, + in distress, + lethargic, + overweight and + edematous Results & Data Vital Signs (Past 12 Hours) Vital Signs Temp Pulse Resp BP Pulse Ox 11/12/19 18:31 71 17 118/90 99 11/12/19 18:30 70 20 97 11/12/19 18:00 71 19 108/68 97 11/12/19 17:31 69 17 99 11/12/19 17:30 71 14 113/82 97 11/12/19 17:22 69 19 11/12/19 17:01 43 L 17 93 11/12/19 17:00 40 L 16 133/84 98 11/12/19 16:54 34.9 C L 11/12/19 16:51 96 11/12/19 16:45 48 L 22 11/12/19 16:33 71 12 11/12/19 16:30 69 12 116/73 94 11/12/19 16:11 74 26 H 143/78 H 95 Code Status & VTE Plan Code Status DO NOT RESUSCITATE DO NOT INTUBATE VTE Prophylaxis Plan VTE Prophylaxis will be ordered: Yes PG Care Time/CCT Total # of Minutes Spent Total Time Spent with Patient: Total time spent is greater than 50% in coordination of care (as documented) at patient's floor/unit and/or counseling patient: Coding Level of Care Code 27200 Initial Inpt Care Lvl 3 Diagnoses Hypoglycemia, coma E15 Altered mental state R40.2431 Altered mental status type: coma Coma depth: [place] coma 3-8 Coma timing: in the field (EMT or ambulance) Anemia D64.9 Anemia type: unspecified type Acute hypernatremia E87.0 Complication of Newby catheter T83.9XXA Encounter type: initial encounter Acute UTI N39.0 Chronic kidney insufficiency N18.9 Acute urinary retention R33.8 Bilateral hydronephrosis N13.30 Hyperlipidemia E78.5 Hypertension I10 Hematoma of neck S10.93XA Hypothyroidism E03.9 Gout M10.9 (1) Altered mental state Altered mental status type: coma Coma depth: [place] coma 3-8 Coma timing: in the field (EMT or ambulance) Qualified Code(s): R40.2431 - Toby coma scale score 3-8, in the field [EMT or ambulance] (2) Anemia Anemia type: unspecified type Qualified Code(s): D64.9 - Anemia, unspecified (3) Complication of Newby catheter Encounter type: initial encounter Qualified Code(s): T83.9XXA - Unspecified complication of genitourinary prosthetic device, implant and graft, initial encounter
[2019-11-12] MEDS ORDERED: GLUCOSE 10 TABS/TUBE PO PRN (20:46)
[2019-11-12] MEDS ORDERED: ACETAMINOPHEN 325 MG TAB PO PRN (20:46)
[2019-11-12] MEDS ORDERED: DEXTROSE 5% 1,000 ML IV SCH (20:46)
[2019-11-12] MEDS ORDERED: MAGNESIUM HYDROXIDE SUSP 30 ML UDC PO PRN (20:46)
[2019-11-12] MEDS ORDERED: GLUCOSE 40% GEL 15 GM TUBE PO PRN (20:46)
[2019-11-12] MEDS ORDERED: GLUCAGON FOR INJ 1 MG VIAL SQ PRN (20:46)
[2019-11-12] MEDS ORDERED: SOD PHOSPHATE/SOD BIPHOSPHATE ENEMA 132 ML BTL PR PRN (20:46)
[2019-11-12] MEDS ORDERED: CARBOHYDRATES FOR HYPOGLYCEMIA PO PRN (20:46)
[2019-11-12] MEDS ORDERED: bisacodyL 10 MG SUPP PR PRN (20:46)
[2019-11-12] MEDS ORDERED: ALUMINUM/MAGNESIUM SUSP 30 ML UDC PO PRN (20:46)
[2019-11-12] MEDS ORDERED: PHARMACY GLYCEMIC MGMT CONSULT PRN (20:59)
[2019-11-12 22:13] LABS: Base Excess ABG -2.4 mEq/L (-9-1.8); HCO3 ABG 25 mmol/L (19-24); Oxygen Saturation ABG 93.7 % (90-95); PCO2 ABG 54 mmHg (35-46); PO2 ABG 79 mmHg (80-95); pH ABG 7.28 (7.35-7.45)
[2019-11-12 22:14] LABS: Allen Test Pos (Pos)
[2019-11-12] MEDS: INSULIN ASPART 100 UNITS/ML 3 ML PEN SC SCH (22:17)
[2019-11-12] MEDS: ATORVASTATIN 40 MG TAB PO SCH (22:23)
[2019-11-12] MEDS: risperiDONE 0.5 MG TABLET PO SCH (22:23)
[2019-11-12] MEDS: METOPROLOL TARTRATE 25 MG TAB PO SCH (22:29)
[2019-11-12] MEDS ORDERED: Nursing to Pharmacy Communication ONE (23:53)
[2019-11-13] MEDS: ERTAPENEM SODIUM 1,000 MG in SODIUM CHLORIDE 0.9% 50 ML IV SCH (00:48)
[2019-11-13] MEDS: FUROSEMIDE 40 MG in SYRINGE 0 ML IV SCH ×3 (00:48→21:31)
[2019-11-13] MEDS: DEXTROSE 50% 50 ML SYRINGE IV PRN ×4 (01:22→08:22)
[2019-11-13 02:26] LABS: Hematocrit (blood only) 26.4 % (42-52); Hemoglobin 7.6 g/dL (14.0-18.0)
[2019-11-13 02:51] LABS: Albumin Level 1.8 gm/dl (3.4-5.0); BUN Creatinine Ratio 26.7 (10-20); Creatinine Clr Calc Pharmacy 59.4 ml/min; Est GFR (African American) 55.6; Potassium 4.1 mmol/L (3.5-5.1)
[2019-11-13 02:54] LABS: Albumin Globulin Ratio 0.3 (0.9-2); Bilirubin,Total 0.4 mg/dl (0.2-1); Globulin 5.2 gm/dl (2.5-4.0)
[2019-11-13] MEDS ORDERED: ALBUT/IPRATROP 3MG/0.5MG NEB 3 ML VIAL NEB STA (05:28)
[2019-11-13] MEDS: LEVOTHYROXINE SODIUM 100 MCG TABLET PO SCH (06:03)
[2019-11-13 06:18] LABS: Estimated Average Glucose 137 mg/dl; Hemoglobin A1C 6.4 % (4.5-5.6)
[2019-11-13] MEDS: INSULIN ASPART 100 UNITS/ML 3 ML PEN SC SCH ×4 (08:20→21:31)
[2019-11-13] MEDS: DEXTROSE 10% 1,000 ML IV SCH ×2 (08:45→21:30)
[2019-11-13 08:54] LABS: BUN Creatinine Ratio 27.5 (10-20); Calcium 8.6 mg/dl (8.5-10.1); Creatinine Clr Calc Pharmacy 53.5 ml/min; Est GFR (African American) 50.6; Est GFR (Non-African American) 43.6; Potassium 4.4 mmol/L (3.5-5.1)
[2019-11-13] MEDS ORDERED: ERTAPENEM 285 MG/ML 1GM VIAL **IM USE IM SCH (09:00)
[2019-11-13] MEDS ORDERED: ASPIRIN 81 MG ECTAB PO SCH (09:00)
[2019-11-13] MEDS ORDERED: POLYETHYLENE (MIRALAX) 17 GM PACK PO SCH (09:00)
[2019-11-13 09:02] LABS: Albumin Globulin Ratio 0.4 (0.9-2); Bilirubin,Total 0.5 mg/dl (0.2-1); Globulin 5.6 gm/dl (2.5-4.0); Total Protein 7.6 gm/dl (6.4-8.2)
[2019-11-13] MEDS: POLYETHYLENE (MIRALAX) 17 GM PACK PO SCH (09:28)
[2019-11-13] MEDS: ISOSORBIDE MONO EXTENDED REL 30 MG TABCR PO SCH (11:23)
[2019-11-13] MEDS: TAMSULOSIN HCL 0.4 MG CAP PO SCH (11:24)
[2019-11-13] MEDS: allopurinoL 300 MG TAB PO SCH (11:24)
[2019-11-13] MEDS: METOPROLOL TARTRATE 25 MG TAB PO SCH ×2 (11:24→21:30)
[2019-11-13] MEDS: SERTRALINE HCL 100 MG TABLET PO SCH (11:25)
[2019-11-13] MEDS: FINASTERIDE 5 MG TAB PO SCH (11:25)
[2019-11-13] MEDS: risperiDONE 0.5 MG TABLET PO SCH ×2 (11:25→21:30)
[2019-11-13] MEDS: ASCORBIC ACID 500 MG TAB PO SCH (11:25)
[2019-11-13] MEDS: POTASSIUM CHLORIDE 10 MEQ TABCR PO SCH (11:25)
[2019-11-13] MEDS: FERROUS GLUCONATE 324 MG TAB PO SCH ×2 (11:26→16:32)
[2019-11-13] MEDS: CEROVITE ADV FORMULA TAB PO SCH (11:26)
--- NOTE | 2019-11-13 11:55 | Medical Student Progress Note ---
Date of Service November 13, 2019 Assessment & Plan Treatment Plan Mr. Koroma is a 69-year-old male with a complicated medical history including end-organ damage secondary to DMII, Chronic Kidney Insufficiency, CAD, systolic CHF, and chronic UTIs who presented to the ED on 11/11 with concern of persistent hypoglycemia who was also found to have renate hematuria and resultant anemia. Acute Metabolic Encephalopathy: - Head CT in ED ruled out acute hemorrhagic event. - Patient has decreased cognitive function at baseline due to underlying medical conditions. - feels that he is back to his baseline this morning. - Likely metabolic encephalopathy due to hypoglycemia and hypernatremia. - Continue to treat metabolic derangements as detailed below. Hypoglycemia: - Patient has had severe hypoglycemia since 2 AM on 11/11. - s/p glucagon doses x 2 - It is not completely clear what occurred and why he became so hypoglycemic. Possible that patient had reduced PO intake and possible misdosing of his insulin. - Hypoglycemia has persisted (most recently 68) but has been improved with q2h boluses of dextrose. continue D10W. - HbA1c is 6.4. This demonstrates good glycemic control. Discontinue all home insulin due to demonstrated sensitivity and reduced need. - Blood sugar and hypoglycemia to be managed by pharmacy. Acute Hypernatremia: - D10W at 80 mL/hour. - Readjust as need to prevent rapid correction as this could precipitate cerebral edema. - Sodium trending down. Was 152 in the ED, now 150. - Monitor BMP every 6 hours. Anemia secondary to Hematuria: - Patient's acute UTI and trauma from New[place] catheter place likely led to hematuria. - Patient received a blood transfusion on 11/06 when his Hgb was 6.8. - Patient was profusely bleeding in the ED on 11/11 with a Hgb of 7.4 and was thus transfused with 1 unit. - Urine was tea-colored and appeared to contain less renate red blood on exam today. - Continue H&H q6 hours with transfusion goal of 8.0 Acute UTI: - Patient is on prophylactic cefuroxime for history of recurrent UTIs. - Patient was started on ertapenem 1 g QD on 11/10 in the oupatient setting per urine culture that grew Morganella morganii. - Continue ertapenem IV. - Awaiting repeat urine culture. - Awaiting blood culture. Chronic Kidney Disease stage 3: - Patient baseline creatinine is generally higher between 1.44-2.14 and today is 1.59. This is increased from yesterday's (11/11) value of 1.53. - His kidney function fluctuates. - Monitor creatinine and avoid nephrotoxic agents. Bilateral hydronephrosis: - Visualized on CT. - This is a chronic condition that demonstrates no change from baseline. - Management as above. ?Complication of Newby Catheter: - Newby catheter repositioned as it was visualized in the urethra on CT scan. - Consulted urology. - Continue finasteride 5 mg every morning. Anasarca: - CT scan demonstrated fluid overload. - Continue Furosemide 40 mg IV. - Monitor I/Os and daily weight checks. Hyperlipidemia: - Lipid panel pending. - Continue atorvastatin per home regimen (80 mg PO QD) at this time. Hypertension: - Blood pressure continues to be in the low-normal range. - Continue metoprolol 25 mg PO q12 hours; hold protocol if heart rate less than 70. Hematoma of neck: - Per patient patient has frequent falls. - Monitor clinically. - Consider repeat CT scan if patient clinically worsens. Hypothyroidism: - TSH is improving and T4 is normal now in comparison to November 01, 2019. - Continue level thyroxine 100 mcg PO every morning. Gout: - Stable, continue allopurinol 300 mg PO every morning. Code: DNR/DNI DVT Prophylaxis: SCDs and ROHAN stockings Dispo: Remain on tele in PCU; continue to monitor blood glucose, BMP, H&H and treat as above. Anticipate eventual discharge to [facility]. Supervising Attestation Medical Student Supervision Note: I independently interviewed and examined the patient and verified the granados history and physical, reviewed labs and image studies, discussed the case with the medical student Leticia Espinoza and the resident Dr. Hyman and agree with the findings and care plan. Subjective Patient states that he does not have any pain today but is unsure of why he is here. He does not endorse eating breakfast this morning but states that he has had a bowel movement this morning. , present at bedside, states that patient's mental status has returned to baseline. Review of Systems Review of Systems: All systems reviewed & are unremarkable except as noted in HPI & below Constitutional: + anorexia; no sweats, no body aches and no malaise Eyes: no problem reported Ear, Nose, Mouth, Throat: no problem reported Respiratory: + cough and + dyspnea Cardiovascular: + dyspnea; no chest pain and no calf pain Gastrointestinal: no abdominal pain, no bloating, no nausea, no vomiting and no constipation Genitourinary: no problem reported Musculoskeletal: no myalgia and no body aches Integumentary: + non-healing lesions and + skin ulcer; no rash Neurologic: + confusion Psychiatric: no problem reported Endocrine: no problem reported Hematologic / Lymphatic: no problem reported Allergy / Immunological: no problem reported Physical Exam Physical Exam: General Appearance: Patient is resting in bed upon exam with at bedside. He is cooperative and in no acute distress. HEENT: Not examined. Neck: Not examined. Respiratory: Increased work of breathing appreciated. Lungs clear bilaterally to auscultation. Mild expiratory wheeze appreciated. Cardiovascular: Regular rate and rhythm. S1 and S2 appreciated. No rubs, murmurs, or gallops. No lower extremity edema appreciated. Gastrointestinal: Normoactive bowel sounds. No tenderness to palpation. No organomegaly. Fluid wave appreciated. MSK: Not examined. Skin: Multiple large crusted lesions noted on the anterior surface of the right holland. Neurological: Oriented to person and place but not time or event. Motor and sensory function grossly intact. Psychiatric: Poor insight into condition. Restricted affect. Genitourinary: Not examined. Lymphatic: Not examined. Results & Data ([facility]) Vital Signs (Past 12 Hours) Vital Signs Temp Pulse Pulse Resp BP BP Pulse Ox 11/13/19 08:27 22 11/13/19 08:00 36.9 C 71 28 H 126/60 100 11/13/19 05:44 70 20 100 11/13/19 05:08 37.0 C 11/13/19 03:13 35.7 C L 73 20 110/63 92 11/13/19 00:05 70 11/13/19 00:03 34.5 C L 70 19 105/68 97 11/12/19 23:30 70 20 110/72 100 Laboratory Results Hgb 7.6 Na+ 150 Cl- 122 BUN 44 Cr 1.59 Time Blood Glucose 06:37 124 07:05 55 08:03 66 08:40 101 11:14 68
[2019-11-13 12:50] LABS: BUN Creatinine Ratio 26.1 (10-20); Calcium 8.4 mg/dl (8.5-10.1); Creatinine Clr Calc Pharmacy 52.1 ml/min; Est GFR (African American) 49.1; Est GFR (Non-African American) 42.4; Potassium 4.7 mmol/L (3.5-5.1)
[2019-11-13 12:53] LABS: Albumin Globulin Ratio 0.4 (0.9-2); Bilirubin,Total 0.4 mg/dl (0.2-1); Globulin 5.6 gm/dl (2.5-4.0); Total Protein 7.6 gm/dl (6.4-8.2)
--- NOTE | 2019-11-13 13:09 | Pharmacy Report ---
Pharmacy Glycemic Short Note 2 - Date of Service November 13, 2019 - Glycemic Short BSG Results (Last 24 hours): 11/12/19 11/12/19 11/12/19 16:12 16:21 16:55 Glucose 76 POC Glucose 136 H 73 11/12/19 11/12/19 11/12/19 17:25 18:05 18:41 Glucose POC Glucose 68 L* 42 L* 92 11/12/19 11/12/19 11/12/19 19:26 20:00 20:30 Glucose POC Glucose 74 141 H 144 H 11/12/19 11/12/19 11/13/19 22:13 23:00 01:17 Glucose POC Glucose 89 96 58 L* 11/13/19 11/13/19 11/13/19 01:20 01:36 02:01 Glucose 77 POC Glucose 53 L* 139 H 11/13/19 11/13/19 11/13/19 03:09 03:22 03:49 Glucose POC Glucose 66 L* 74 60 L* 11/13/19 11/13/19 11/13/19 04:09 06:10 06:13 Glucose POC Glucose 117 H 50 L* 46 L* 11/13/19 11/13/19 11/13/19 06:37 07:55 08:01 Glucose 55 L POC Glucose 124 H 62 L* 11/13/19 11/13/19 11/13/19 08:03 08:40 11:14 Glucose POC Glucose 66 L* 101 H 68 L* 11/13/19 11/13/19 11/13/19 11:16 11:58 12:32 Glucose 63 L POC Glucose 70 87 OUTPATIENT ANTIDIABETIC REGIMEN: * Levemir 15 units qAM * SS Novolog: * 350-400 8 units * 401-450: 12 units * 451-500: 16 units * 501-550: 18 units ASSESSMENT: * Mr. Koroma admitted 11/11 with sustained hypoglycemia, patient initially on D5@80 ml/hr, switched to D10@80 ml/hr this morning * Hypernatremia, recheck to ensure not rapidly correcting, would gradually reduce D10/D5 to avoid rebound hypoglycemia when able * BSGs continue to be low/low normal on D10, currently ordered a sliding scale for BSG >200, will hold on levemir dosing until hypoglycemia resolved PLAN FOR INPATIENT GLYCEMIC CONTROL: * Hold outpatient oral diabetes medications * Bolus insulin * NovoLog per scale ACHS or Q6hrs while NPO * Goal Range: Low 140 mg/dL - High 200 mg/dL * Correction Factor: 30 mg/dL/unit
--- NOTE | 2019-11-13 16:02 | Electrocardiogram Report ---
Test Reason : Blood Pressure : / mmHG Vent. Rate : 075 BPM Atrial Rate : 035 BPM P-R Int : 180 ms QRS Dur : 152 ms QT Int : 502 ms P-R-T Axes : 000 201 078 degrees QTc Int : 560 ms AV dual-paced rhythm with occasional , and consecutive Premature ventricular complexes Abnormal ECG When compared with ECG of 10-OCT-2019 13:35, Premature ventricular complexes are now Present Vent. rate has increased BY 5 BPM Confirmed by Gregory Ham ([id number]) on 11/13/2019 4:02:11 PM Referred By: [facility] Confirmed By:Gregory Ham
[2019-11-13] MEDS: ATORVASTATIN 40 MG TAB PO SCH (21:29)
[2019-11-14] MEDS: ERTAPENEM SODIUM 1,000 MG in SODIUM CHLORIDE 0.9% 50 ML IV SCH ×2 (00:34→23:28)
[2019-11-14 00:46] LABS: BUN Creatinine Ratio 26.3 (10-20); Calcium 8.1 mg/dl (8.5-10.1); Est GFR (African American) 44.4; Est GFR (Non-African American) 38.3
[2019-11-14 07:02] LABS: BUN Creatinine Ratio 25.1 (10-20); Calcium 8.3 mg/dl (8.5-10.1); Creatinine Clr Calc Pharmacy 48.4 ml/min; Est GFR (Non-African American) 37.1; Potassium 4.8 mmol/L (3.5-5.1)
[2019-11-14] MEDS: risperiDONE 0.5 MG TABLET PO SCH (08:41)
[2019-11-14] MEDS: TAMSULOSIN HCL 0.4 MG CAP PO SCH (08:41)
[2019-11-14] MEDS: SERTRALINE HCL 100 MG TABLET PO SCH (08:42)
[2019-11-14] MEDS: FERROUS GLUCONATE 324 MG TAB PO SCH ×3 (08:42→17:13)
[2019-11-14] MEDS: POLYETHYLENE (MIRALAX) 17 GM PACK PO SCH (08:42)
[2019-11-14] MEDS: METOPROLOL TARTRATE 25 MG TAB PO SCH (08:42)
[2019-11-14] MEDS: CEROVITE ADV FORMULA TAB PO SCH (08:42)
[2019-11-14] MEDS: ASCORBIC ACID 500 MG TAB PO SCH (08:42)
[2019-11-14] MEDS: LEVOTHYROXINE SODIUM 100 MCG TABLET PO SCH (08:43)
[2019-11-14] MEDS: ISOSORBIDE MONO EXTENDED REL 30 MG TABCR PO SCH (08:43)
[2019-11-14] MEDS: allopurinoL 300 MG TAB PO SCH (08:43)
[2019-11-14] MEDS: POTASSIUM CHLORIDE 10 MEQ TABCR PO SCH (08:44)
[2019-11-14] MEDS: FINASTERIDE 5 MG TAB PO SCH (08:45)
[2019-11-14] MEDS: INSULIN ASPART 100 UNITS/ML 3 ML PEN SC SCH ×2 (08:54→11:52)
--- NOTE | 2019-11-14 12:30 | Medical Student Progress Note ---
Date of Service November 14, 2019 Assessment & Plan Treatment Plan Mr. Koroma is a 69-year-old male with a complicated medical history including end-organ damage secondary to DMII, Chronic Kidney Insufficiency, CAD, systolic CHF, and chronic UTIs who presented to the ED on 11/11 for altered mental status found to be due to hypoglycemia, found to be anemic and edematous. Acute Metabolic Encephalopathy: (Resolved) - Head CT in ED ruled out acute hemorrhagic event. - Patient has decreased cognitive function at baseline due to underlying medical conditions. - feels that he is back to his baseline. - Likely metabolic encephalopathy due to hypoglycemia and hypernatremia. - Continue to treat metabolic derangements as detailed below. Hypoglycemia: - On arrival, patient with severe hypoglycemia (31) at 2 AM on 11/11. - s/p glucagon doses x 2 - Etiology unknown. Possible that patient had reduced PO intake vs possible misdosing of his insulin. Per , staff at [facility] administer insulin and state he has been taking food PO without n/v. - Hypoglycemia persisted for the first 24 hours of his hospital course and was being managed with q2h boluses of dextrose. - Today, 11/13, his blood glucose readings returned to the normal range with readings of 109 and 119 this morning. - HbA1c is 6.4. This demonstrates good glycemic control. - Discontinue all home insulin considering hypoglycemia and A1c level. Acute Hypernatremia: - Etiology: suspected malnutrition. - Sodium trending down. Was 150 on 11/12, now 148. - Monitor BMP every 12 hours. Acute UTI: - Patient is on prophylactic cefuroxime at home for history of recurrent UTIs. - Patient was started on ertapenem 1 g QD on 11/10 in the outpatient setting per genital culture that grew Morganella morganii. - Continue ertapenem IV through 11/16. - Urine culture and blood culture obtained on admission are showing no growth to date. Anemia: - Today Hgb is 7.9 up from 7.6 yesterday (11/12). - Patient's acute UTI and trauma from New[place] catheter place likely led to hematuria. - Patient received a blood transfusion on 11/06 when his Hgb was 6.8. - Patient was profusely bleeding in the ED on 11/11 with a Hgb of 7.4 and was thus transfused with 1 unit. - Urine was light brown and appeared to contain less renate red blood on exam today. - As above, UTI is likely resolving/resolved and should not be causing significant blood loss. - Newby-related trauma would be unlike to cause this degree of bleeding. Suspect colon origin. - After discussion with patient and his it was decided that we would not precede with hemoccult +/- colonoscopy at this time. - Continue H&H q6 hours with transfusion goal of <7.0 Anasarca: - CT scan demonstrated fluid overload. - likely from malnutrition. - Albumin low at 2. considering comorbidity and inability to feed orally - await palliative care input. - Received one dose of lasix with albumin this am with appropriate urine output. Continue Furosemide 40 mg IV. - Monitor I/Os and daily weight checks. Chronic Kidney Disease stage 3: - Patient's baseline creatinine is generally fluctuates between 1.44-2.14 and today is 1.82. This is increased from yesterday's (11/12) value of 1.63. - Monitor creatinine and avoid nephrotoxic agents. Bilateral hydronephrosis: - Visualized on CT from 11/11. - This is a chronic condition that demonstrates no change from baseline. - Management as above. Complication of Newby Catheter: - Newby catheter repositioned as it was visualized in the urethra on CT scan. - Consulted urology. - Continue finasteride 5 mg every morning. Scrotal Swelling: - Possible etiologies included generalized edema and trauma from Newby. - Given the presence of edema elsewhere and the discrete location of the swelling from the site of trauma, likely a systemic/general process. - Urology consulted. - Manage with Furosemide as above. Difficult Swallowing: - Patient was observed coughing after receiving honey-thick liquids and appears to be having difficulty clearing secretions. - Concern for diet when he returns to [facility]. - Speech evaluation ordered - demonstrated aspiration with all substances. NPO for now. Decreased Quality of Life in Setting of Multiple Health Conditions: - Patient's request to learn more about comfort care. - Palliative care consulted. Hyperlipidemia: - Lipid panel pending. - Continue atorvastatin per home regimen (80 mg PO QD) at this time. Hypertension: - Blood pressure continues to be in the low-normal range. - Continue metoprolol 25 mg PO q12 hours; hold protocol if heart rate less than 70. Hematoma of neck: - Per patient patient has frequent falls. - He is not demonstrating clinical signs suggestive of expansion. Continue to monitor. - Consider repeat CT scan if patient clinically worsens. Hypothyroidism: - TSH is improving and T4 is normal now in comparison to November 01, 2019. - Continue level thyroxine 100 mcg PO every morning. Gout: - Stable, continue allopurinol 300 mg PO every morning. Code: DNR/DNI DVT Prophylaxis: SCDs and ROHAN stockings; chemical prophylaxis contraindicated in the setting of blood-loss anemia Dispo: Remain on tele on med-surg. Anticipate eventual discharge to [facility]. Supervising Attestation Medical student Supervision Note: I independently interviewed and examined the patient and verified the granados history and physical, reviewed labs and image studies, discussed the case with the medical student Leticia Espinoza and the resident Dr. Hyman and agree with the findings and care plan. Subjective Mr. Koroma was able to eat a full breakfast this morning. Seems to be back at baseline in terms of mentation. States his goal is to 'do whatever gets him out of here the fastest.' Review of Systems Review of Systems: All systems reviewed & are unremarkable except as noted in HPI & below Constitutional: no sweats, no body aches, no malaise and no anorexia Eyes: no worsening vision Ear, Nose, Mouth, Throat: no problem reported Respiratory: + cough and + dyspnea Cardiovascular: + dyspnea; no chest pain and no calf pain Gastrointestinal: no abdominal pain, no bloating, no nausea and no vomiting Genitourinary: no problem reported Musculoskeletal: + muscle weakness (chronic); no swelling and no myalgia Integumentary: + non-healing lesions and + skin ulcer; no rash Neurologic: + confusion Psychiatric: no problem reported Endocrine: no problem reported Hematologic / Lymphatic: no problem reported Allergy / Immunological: no problem reported Physical Exam Physical Exam: General Appearance: On exam, patient is resting bed comfortably. He is largely cooperative but in no acute distress. HEENT: Not examined. Neck: No JVP. Respiratory: Diffuse rhonchi appreciated. Particularly in the upper lung patrick bilaterally. Upper airway gurgling rales appreciated. Minimally increased work of breathing. Cardiovascular: Regular rate and rhythm.S1 and S2 appreciated. No rubs, murmurs, or gallops. Gastrointestinal: Bowel sounds normoactive. No tenderness to palpation. No organomegaly appreciated. MSK: Generalized weakness and muscle atrophy. Skin: Multiple ulcers appreciated on the anterior surface of the right holland and dorsal aspect of the right heel. Neurological: Alert and oriented to person and time. Psychiatric: Thought process largely clear and organized. Affect constricted. Genitourinary: Scrotum is greatly enlarged and appears edematous and slightly erythematous on exam. Non-tender to palpation. Lymphatic: Not examined. Results & Data ([facility]) Vital Signs (Past 12 Hours) Vital Signs Temp Pulse Pulse Resp BP Pulse Ox 11/14/19 11:43 36.5 C 69 18 127/75 100 11/14/19 07:30 36.5 C 70 24 126/77 100 11/14/19 05:14 36.6 C 69 20 119/77 99 Laboratory Results Hgb 7.9 Sodium 148 Chloride 120 BUN 46 Cr 1.82 Albumin 2.0 Blood Culture Neg Urine Culture Neg Time Blood Glucose 6:01 119 7:49 109 11:15 187 11:42 142
[2019-11-14] MEDS ORDERED: ALBUMIN 25% 50 ML with FUROSEMIDE 40 MG IV SCH (13:45)
[2019-11-14] MEDS ORDERED: METOPROLOL TARTRATE 1 MG/ML VIAL IV PRN (17:25)
[2019-11-14] MEDS ORDERED: ACETAMINOPHEN 1,000 MG/100 ML VIAL IV PRN (17:27)
[2019-11-14] MEDS: LACTATED RINGER'S 1,000 ML IV SCH (18:13)
--- NOTE | 2019-11-15 07:45 | Wound Consultation ---
Date of Consultation November 14, 2019 Assessment & Plan (1) Chronic wound of extremity: Patient with numerous wounds including left thumb, right heel and right holland all covered with black eschar. No debridement was required. Wounds will be painted with Betadine and covered with foam. (2) Surgical wound, non healing: Wound on the right lower abdomen appears to be secondary to some sort of drainage tube. Patient does mention he had a tube there recently. Reviewing patient's history it looks like patient was transferred for percutaneous cholecystostomy. There appears to be purulent drainage. Wound culture was obtained. Wound will be dressed with OPTi foam. Thank you for limited participate in the care of this patient. Please not hesitate call with any questions. 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 Patient fell being hypoglycemic. Patient also found to have UTI. He is a poor historian and although he is reportedly back to his baseline mental status he is unable to provide much information. There is a history background information is obtained from the record. Patient has no acute complaints at this time. I am being asked to see the patient for numerous chronic wounds. Allergies Allergy/AdvReac Type Severity Reaction Status Date / Time gemfibrozil Allergy Unknown Unknown Verified 11/12/19 18:08 Home Medications Home Medications Medication Instructions Recorded Confirmed Type allopurinol [Zyloprim] 300 mg PO QAM 04/10/19 11/12/19 History ascorbic acid (vitamin C) [Vitamin 500 mg PO QAM 04/23/19 11/12/19 History C] aspirin 81 mg PO QAM 04/23/19 11/12/19 History isosorbide mononitrate 15 mg PO QAM 04/23/19 11/12/19 History sertraline 100 mg PO QAM 04/23/19 11/12/19 History atorvastatin 80 mg PO HS 10/10/19 11/12/19 History melatonin 3 mg PO HS PRN 10/10/19 11/12/19 History potassium chloride 10 meq PO QAM 10/10/19 11/12/19 History tamsulosin 0.4 mg PO QAM 30 Days #30 cap 10/15/19 11/12/19 Rx bisacodyl [Dulcolax (bisacodyl)] 10 mg MD DIRECTED PRN 11/08/19 11/12/19 History ferrous gluconate 324 mg PO BID 11/08/19 11/12/19 History finasteride 5 mg PO QAM 11/08/19 11/12/19 History insulin detemir U-100 [Levemir 15 unit SUBCUT QAM 11/08/19 11/12/19 History U-100 Insulin] levothyroxine 100 mcg PO QAM 11/08/19 11/12/19 History risperidone [Risperdal] 0.25 mg PO BID 11/08/19 11/12/19 History Lidocaine Hcl 1% 1 vial IM DIRECTED 11/12/19 History acetaminophen 650 mg PO Q6H PRN 11/12/19 11/12/19 History ertapenem 1 g IM DAILY 11/12/19 11/12/19 History glucagon HCl [Glucagon (HCl) 1 mg IM DIRECTED PRN 11/12/19 11/12/19 History Emergency Kit] insulin aspart U-100 [Novolog 1 sliding scale dose SUBCUT 11/12/19 11/12/19 History U-100 Insulin aspart] USEASDIRECTD PRN magnesium hydroxide [Milk of 30 ml PO DIRECTED PRN 11/12/19 11/12/19 History Magnesia] metoprolol tartrate 25 mg PO Q12H 11/12/19 11/12/19 History multivitamin with minerals 1 tab PO QAM 11/12/19 11/12/19 History [Multiple Vitamin-Minerals] polyethylene glycol 3350 [Miralax] 17 g PO DAILY 11/12/19 11/12/19 History sodium phosphates [Fleet Enema] 118 ml MD DIRECTED PRN 11/12/19 11/12/19 History Patient History Medical History Adjustment disorder with depressed mood (Chronic) Biventricular ICD (implantable cardioverter-defibrillator) in place (Chronic) CAD (coronary artery disease) (Chronic) "s/p stent to LAD in 04/2014" Chronic systolic CHF (congestive heart failure) (Chronic) On 09/07/15 13:04 Maren Reddy wrote "echo 10/08/14- LV cavity size moderately enlarged, mild concentric LVH, diffuse moderate LV hypokinesis with superimposed more severe hypokinesis/akinesis involving the mid and apical inferior wall, anterior s eptum, and LV apex. LV apex is akinetic. 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) Surgical History History of implantable cardioverter-defibrillator (ICD) placement (Chronic) Hx of BKA (Chronic) "left" S/P coronary artery stent placement (Chronic) "CLAUDINE to LAD in 04/2014" Family History Other Family history non-contributory Social History Preferred Language: Iranian Communication Ability: Unable Software Recruiter Required: No Beliefs That Will Affect Care: None marital status: Current Living Situation: Correction Current Living Situation Comment: [facility] Other Information That Helps Us Care for You: No Feels Safe at Home: Yes Safety Concerns: Feels Safe At This Time Smoking Status: Never smoker Hx Alcohol Use: No Hx Substance Use: No Review of Systems Review of Systems: Unobtainable due to mental health condition Physical Exam Constitutional: WD/WN, vitals as above Eyes: PERRL, conjunctivae normal, anicteric sclerae ENMT: Ears: no hearing impairment Respiratory: normal respiratory effort, lungs clear to auscultation Cardiovascular: RRR, no murmur, no edema Skin: Wound #1, left arm measuring 2 x 2 cm. This is covered with black eschar. Wound #2, right heel measuring 1.5 x 1 cm. Is covered with black eschar. Wound #3, right lower abdomen measuring 1.9 x 1 x 0.3 cm. Wound is covered with fibrin and slough there is purulent drainage. Wound #4, right holland measuring 20 x 4 cm. Wound is covered with black eschar. Neurologic: awake; not confused Results & Data Vital Signs (Past 12 Hours) Vital Signs Temp Pulse Resp BP Pulse Ox 11/14/19 23:31 36.5 C 69 20 139/78 97 PG Care Time/CCT Total # of Minutes Spent Total Time Spent with Patient: Total time spent is greater than 50% in coordination of care (as documented) at patient's floor/unit and/or counseling patient: Coding Level of Care Code 55899 Inpt Consult Level 3 Diagnoses Chronic wound of extremity Surgical wound, non healing E16.2
[2019-11-15] MEDS: METOPROLOL TARTRATE 25 MG TAB PO SCH (07:50)
--- NOTE | 2019-11-15 08:32 | Palliative Care Consultation ---
Date of Consultation November 15, 2019 Assessment & Plan (1) Goals of care, counseling/discussion: -69 year old male patient from [facility] care home with PMH uncontrolled diabetes with severe peripheral neuropathy s/p multiple upper and lower extremity amputations including BKA, systolic congestive heart failure with EF 20-25%, AICD, CKD, and others, presented to the hospital several days ago with episode of severe hypoglycemia. Cause of hypoglycemia unknown at this point. Patient was previously here in hospital in October 2019 with obstructive uropathy and acute on chronic renal failure. Patient lives in SNF for his multiple comorbidities and poor functional/mental status. Palliative care was consulted during last admission to discuss goals of care with patient's -- she stated that she was getting to the point of not wanting to bring patient back to the hospital so frequently. Now, patient is also found to be aspirating all consistencies. He is NPO until discussion is had about goals. He is being diuresed with Lasix 40mg IV BID-- CT abd/pelvis showed volume overload with anasarca and patient has history of heart failure. Creatinine is rising, from 1.5 to 1.82. Palliative care is now reconsulted to discuss goals of care. -Met with patient in room 452 this morning. He is awake but confused (baseline). He is thirsty and upset that we are not letting him eat or drink. Unable to hold goals of care conversation. -Called and spoke with patient's , Nusrat. Discussed the above medical issues including the aspiration. Patient's is very reasonable and understanding. She states that patient really has a poor quality of life and she feels that she would just like to focus on his comfort. -We discussed comfort feeding with the risk of aspiration, pneumonias, etc. She states that she is accepting of the risk and is okay with comfort feeds. -Stop unnecessary medications and treat symptomatically. -Return to [facility] on COMFORT MEASURES ONLY. Will send an order for hospice eval and treat so [facility] can set hospice up. Do not rehospitalize. -Case management and physician updated. Patient will likely discharge today. -PPS 30%. (2) Hypoglycemia: (3) Chronic kidney insufficiency: (4) Altered mental state: Altered mental status type: coma Coma depth: Toby coma 3-8 Coma timing: in the field (EMT or ambulance) Qualified Code(s): R40.2431 - Molt coma scale score 3-8, in the field [EMT or ambulance] Supervising Physician Co-Signing Physician Notes Chart reviewed, patient seen and examined, no family at bedside Collaborated with CECI Linder PE: Patient minimally responsive, no acute distress Respirations: Unlabored CV regular rate Abdomen: Obese, soft Extremities: BKA, multiple amputations Neuro: Confused Agree with above note, assessment and plan as per CECI Linder-plan is for return to [facility] with comfort measures. History of Present Illness Attending Physician: Kaylee Avendaño MD History of Present Illness This 69 year old male patient from [facility] with PMH uncontrolled diabetes with severe peripheral neuropathy s/p multiple upper and lower extremity amputations including BKA, systolic congestive heart failure with EF 20-25%, AICD, CKD, and others, presented to the hospital several days ago with episode of severe hypoglycemia. Cause of hypoglycemia unknown at this point. Patient was previously here in hospital in October 2019 with obstructive uropathy and acute on chronic renal failure. Patient lives in SNF for his multiple comorbidities and poor functional/mental status. Palliative care was consulted during last admission to discuss goals of care with patient's -- she stated that she was getting to the point of not wanting to bring patient back to the hospital so frequently. Now, patient is also found to be aspirating all consistencies. He is NPO until discussion is had about goals. He is being diuresed with Lasix 40mg IV BID-- CT abd/pelvis showed volume overload with anasarca and patient has history of heart failure. Creatinine is rising, from 1.5 to 1.82. Palliative care is now reconsulted to discuss goals of care. Allergies Allergy/AdvReac Type Severity Reaction Status Date / Time gemfibrozil Allergy Unknown Unknown Verified 11/12/19 18:08 Patient History Medical History Adjustment disorder with depressed mood (Chronic) Biventricular ICD (implantable cardioverter-defibrillator) in place (Chronic) CAD (coronary artery disease) (Chronic) "s/p stent to LAD in 04/2014" Chronic systolic CHF (congestive heart failure) (Chronic) On 09/07/15 13:04 Maren Reddy wrote "echo 10/08/14- LV cavity size moderately enlarged, mild concentric LVH, diffuse moderate LV hypokinesis with superimposed more severe hypokinesis/akinesis involving the mid and apical inferior wall, anterior septum, and LV apex. LV apex is akinetic. 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) Surgical History History of implantable cardioverter-defibrillator (ICD) placement (Chronic) Hx of BKA (Chronic) "left" S/P coronary artery stent placement (Chronic) "CLAUDINE to LAD in 04/2014" Family History Other Family history non-contributory Social History Preferred Language: Welsh Communication Ability: Unable Child Care Center Administrator Required: No Beliefs That Will Affect Care: None marital status: Current Living Situation: Care Home Current Living Situation Comment: [facility] Feels Safe at Home: Yes Smoking Status: Never smoker Hx Alcohol Use: No Hx Substance Use: No Review of Systems Review of Systems: Denies pain or SOB. C/o being thirsty. Physical Exam Constitutional: + ill appearing (chronically); no acute distress Respiratory: normal respiratory effort; no respiratory distress Cardiovascular: Rate/Rhythm: regular rate and regular rhythm Extremities: + edema (lower extremity) Gastrointestinal (Abdomen): Percussion/Palpation: abdomen soft; abdomen nontender Musculoskeletal: BKA Neurologic: awake and + confused Results & Data Vital Signs (Past 12 Hours) Vital Signs Temp Pulse Resp BP Pulse Ox 11/15/19 07:45 36.8 C 76 20 95/60 L 92 11/14/19 23:31 36.5 C 69 20 139/78 97 PG Care Time/CCT Total # of Minutes Spent Total Time Spent with Patient: Total time spent is greater than 50% in coordination of care (as documented) at patient's floor/unit and/or counseling patient: 50 minutes. Coding Level of Care Code 64891 Inpt Consult Level 2 Diagnoses Goals of care, counseling/discussion Z71.89 Hypoglycemia E16.2 Chronic kidney insufficiency N18.9 Altered mental state R40.2431 Altered mental status type: coma Coma depth: Toby coma 3-8 Coma timing: in the field (EMT or ambulance) Time Spent (min) 50
[2019-11-15 08:37] LABS: Hematocrit (blood only) 27.6 % (42-52)
[2019-11-15] MEDS ORDERED: LEVOTHYROXINE SODIUM 50 MCG in SYRINGE 0 ML IV SCH (09:00)
[2019-11-15 09:12] LABS: BUN Creatinine Ratio 27.7 (10-20); Calcium 8.7 mg/dl (8.5-10.1); Creatinine Clr Calc Pharmacy 49.8 ml/min; Est GFR (African American) 44.4; Est GFR (Non-African American) 38.3; Potassium 4.5 mmol/L (3.5-5.1)
[2019-11-15] MEDS: LACTATED RINGER'S 1,000 ML IV SCH (09:46)
[2019-11-15] MEDS ORDERED: Nursing to Pharmacy Communication ONE (10:11)
--- NOTE | 2019-11-15 11:16 | Pharmacy Report ---
Pharmacy Glycemic Short Note 2 - Date of Service November 15, 2019 - Glycemic Short BSG Results (Last 24 hours): 11/14/19 11/14/19 11/14/19 11:15 11:42 16:30 Glucose POC Glucose 187 H 142 H 180 H 11/14/19 11/15/19 11/15/19 19:27 00:11 08:14 Glucose 121 H POC Glucose 150 H 146 H OUTPATIENT ANTIDIABETIC REGIMEN: * Levemir 15 units qAM * SS Novolog: * 350-400 8 units * 401-450: 12 units * 451-500: 16 units * 501-550: 18 units ASSESSMENT: 11/14 * Patient has received 0 units of insulin since admission. Novolog was placed on hold by provider yesterday. * D10 was also placed on hold yesterday. Patient is currently NPO and palliative care has been re-consulted to discuss goals of care. * BSGs have remained stable without insulin. Will need to continue to monitor if PO intake advances. 11/12 * Mr. Koroma admitted 11/11 with sustained hypoglycemia, patient initially on D5@80 ml/hr, switched to D10@80 ml/hr this morning * Hypernatremia, recheck to ensure not rapidly correcting, would gradually reduce D10/D5 to avoid rebound hypoglycemia when able * BSGs continue to be low/low normal on D10, currently ordered a sliding scale for BSG >200, will hold on levemir dosing until hypoglycemia resolved PLAN FOR INPATIENT GLYCEMIC CONTROL: * Continue to hold all insulin * Resume conservative sliding scale (CF 40) if BSGs are sustained > 200 mg/dL Discharge Recommendations: * to be determined based on goals of care but insulin regimen may likely be discontinued altogether d/t severe hypoglycemia and baseline A1c (although question the reliability of this with patient's anemia)
--- NOTE | 2019-11-15 13:31 | Discharge Summary ---
Date of Service November 15, 2019 Admission HPI Per Admitting Provider The patient is a 69 years old male permanent resident of [facility] with past medical history of chronic systolic congestive heart failure, coronary artery disease, neuropathy due to type 2 diabetes mellitus, DKA, history of ICD defibrillator, diabetic retinopathy, dyslipidemia, hypothyroidism, diabetes type 2, hypertension, transaminitis, indwelling Newby catheter, obstructive uropathy, who was brought to the emergency room by EMS s/p he was found unresponsive in the senior living and his blood sugar was 31. His hypoglycemia started approximately 2 AM and patient had difficulty to keep her sugars up. Patient received 3 IM doses of glucagon with the last dose being at 8 AM. He was responsible and eating pudding and juice earlier and had no insulin today. About an hour an hour and half ago patient went unresponsive. Even though he received 3 doses of IV glucose D5. Patient also has Newby catheter inserted in the [facility] and the Newby bag is full of blood. Patient is at the bedside and and she stated that patient wants to be DNR/DNI. Patient said that blood in urine has been ongoing for couple of days and that patient needed transfusion 5 days ago.Patient is obtunded and it is impossible to reviewed systems with him. Patient also stated that she would not like any heroic measures to be taken. Patient receives ertapenem 1 mg IM daily for complicated UTI in the senior living started on 11/11/2019 and prescribed by JIM Black at [facility] He was recently discharged on 10/15/2019 and at that time he was on cefuroxime 2 50 mg p.o. twice daily for 7 days. On November 03, 2019 patient grew Morganella morganii from the genital specimen sensitive to ertapenem. Blood cultures x2 are pending as well as urine culture.Labs are reviewed: WBC is 5.21, hemoglobin 7.4, from 6.8 on November 06 when patient received another unit of blood. Hematocrit 26.1 today, platelets 185, blood gas: ABG pH 7.28, ABG PCO2 54, ABG PO2 79, ABG HCO3 25, sodium 152, potassium 4.3, chloride 123, carbon dioxide 23, anion gap 2, BUN 40, creatinine 1.53, GFR 45.7, glucose 73, 68, 42, 92, 74, 141, 144, 89, 96, lactate 1.3, calcium 8.7, magnesium 2.4, total bilirubin 0.4, AST 17, ALT 18, alkaline phosphatase 86, pain 0.015 , TSH 8.22, free T4 0.9. Urine turbid, protein 2+, urine blood 3+, nitrate positive, leukocyte esterase 2+, urine WBCs 10-30, urine RBCs 30, hyaline cast 0, epithelial cells 5-10. Influenza A and B neg. CT abdomen and pelvis: Volume overload with anasarca, trace pleural effusion with trace abdominal pelvic ascites. Malpositioned Newby catheter with balloon inflated within the prostatic urethra. Repositioning is needed. Moderate urinary bladder distention with bilateral hydroureteronephrosis. Contrast in the renal collecting system, ureters and urinary bladder likely from contrast enhanced study 4 days prior. Findings are compatible with decreased renal function. Splenomegaly. CT of the head shows mild chronic small vessel ischemic changes and old lacunar infarcts in the right basal ganglia, unchanged. No acute intracranial abnormality. Subcutaneous contusion with trace hematoma in the posterior base of the neck at the skull base. Chest x-rays: Cardiomegaly with pulmonary edema. Right greater than left pleural effusion and bibasilar opacities are suggestive of atelectasis with pneumonitis considering less likely. Decision was made to admit patient to PCU on telemetry for further evaluation and treatment of hypoglycemia, pulmonary edema, left pleural effusion , acute respiratory failure, altered mental status, frequent falls and other multiple comorbidities. Admission Exam Per Admitting Provider Constitutional: WD/WN, vitals as above well developed, + ill appearing, + intoxicated appearing, + altered mental status, + behavioral limitations, + disheveled, + in distress, + lethargic, + overweight and + edematous Principal Diagnosis Hypoglycemia Discharge Exam General Appearance: On exam, patient is resting bed comfortably. He is largely cooperative but in no acute distress. HEENT: Not examined. Neck: No JVP. Respiratory: Diffuse rhonchi appreciated. Particularly in the upper lung patrick bilaterally. Upper airway gurgling rales appreciated. Minimally increased work of breathing. Cardiovascular: Regular rate and rhythm.S1 and S2 appreciated. No rubs, murmurs, or gallops. Gastrointestinal: Bowel sounds normoactive. No tenderness to palpation. No organomegaly appreciated. MSK: Generalized weakness and muscle atrophy. Skin: Multiple ulcers appreciated on the anterior surface of the right holland and dorsal aspect of the right heel. Neurological: Alert and oriented to person and time. Psychiatric: Thought process largely clear and organized. Affect constricted. Genitourinary: Scrotum is greatly enlarged and appears edematous and slightly erythematous on exam. Non-tender to palpation. Lymphatic: Not examined. Discharge Data Allergies Allergy/AdvReac Type Severity Reaction Status Date / Time gemfibrozil Allergy Unknown Unknown Verified 11/12/19 18:08 Consultations 11/12/19 18:46 ED Decision to Admit Stat 11/13/19 15:24 Consult Wound Care Provider Routine 11/14/19 11:53 Consult Palliative Care Routine 11/14/19 18:18 Consult Urology Routine Ordered Studies 11/12/19 16:25 CT abd pelvis wo con Stat CT head/brain wo con Stat Hospital Course (1) Hypoglycemia: Mr. Koroma is a 69-year-old male with a complicated medical history including DMII with end organ damage, a L below the knee amputation, bilateral finger amputations, Chronic Kidney Disease - Stage 3, CAD, HFrEF due to ischemic cardiomyopathy, and urinary retention with recurrent UTIs, who presented to the ED on 11/11 for altered mental status found to be due to hypoglycemia. Decreased Quality of Life in Setting of Multiple Health Conditions and renate aspiration: - Palliative care consulted - after careful discussion with patient and , patient will pursue comfort care at this time Difficult Swallowing: - Patient was observed coughing after receiving honey-thick liquids and appears to be having difficulty clearing secretions. - Speech evaluation ordered - demonstrated aspiration with all substances. - patient's has opted for comfort feedings Acute Metabolic Encephalopathy: (Resolved) - Head CT in ED ruled out acute hemorrhagic event. - Patient has decreased cognitive function at baseline due to underlying medical conditions - Per - back to his baseline. - Likely due to hypoglycemia and hypernatremia Hypoglycemia: - On arrival, patient with severe hypoglycemia (31) at 2 AM on 11/11. - s/p glucagon doses x 2 - Likely from poor PO intake. Per , staff at [facility] administer insulin and state he has been taking food PO without n/v. - Hypoglycemia persisted for the first 24 hours of his hospital course and was being managed with q2h boluses of dextrose. - Treated with D10W until BS normal. - HbA1c is 6.4. - Discontinue all home insulin considering hypoglycemia and A1c level. Acute Hypernatremia: - Etiology: suspected malnutrition. - Sodium trending down. Was 150 on 11/12, now 149. Acute UTI: - Patient is on prophylactic cefuroxime at home for history of recurrent UTIs. - Patient was started on ertapenem 1 g QD on 11/10 in the outpatient setting per genital culture that grew Morganella morganii. - ertapenem course was to extend through 11/16. - Urine culture obtained 11/11 growing entercoccus Anemia: - Today Hgb is 8.0 up from 7.9 yesterday (11/13). - transfused with 1 unit in ED - Newby-related trauma, even in the setting of acute UTI, unlikely to cause this degree of bleeding. Suspect colon origin. - After discussion with patient and his it was decided that we would not pr ecede with hemoccult +/- colonoscopy at this time. Anasarca: - CT scan demonstrated fluid overload. - likely from malnutrition. - Albumin low at 2. Chronic Kidney Disease stage 3: - Patient's baseline creatinine is generally fluctuates between 1.44-2.14. 1.77 on day of discharge Bilateral hydronephrosis: - Visualized on CT from 11/11. - This is a chronic condition that demonstrates no change from baseline. Complication of Newby Catheter: - Newby catheter repositioned as it was visualized in the urethra on CT scan. Scrotal Swelling: - Possible etiologies included generalized edema and trauma from Newby. - Given the presence of edema elsewhere and the discrete location of the swelling from the site of trauma, likely a systemic/general process. Hyperlipidemia: - on admission patient was on atorvastatin 80mg, PO qAM Hypertension: - Blood pressure 95/60 Hematoma of neck: - Per patient patient has frequent falls. - He is not demonstrating clinical signs suggestive of expansion. Continue to monitor.. Hypothyroidism: - will d/c synthroid at this time Gout: - Stable, will discontinue allopurinol at this time. (2) Gout: (3) Hypothyroidism: (4) Hematoma of neck: (5) Hypertension: (6) Hyperlipidemia: (7) Chronic kidney insufficiency: (8) Altered mental state: (9) Anemia: (10) Hypoglycemia, coma: (11) Acute hypernatremia: (12) Complication of Newby catheter: Total Time Total Time Spent Total Time Spent (In Minutes): see attending attestation Discharge Plan Discharge Items Patient Disposition: Transfer [facility] Reason For Visit: SEVERE HYPOGLYCEMIA Discharge Diagnosis: Hypoglycemia Activity: Resume your previous activity Non-emergency contact: Primary Care Provider Call non-emergency contact if: you have any medication questions and your symptoms worsen Follow-up/Referrals: [facility] [Primary Care Provider] - Diet: Regular Addtl Attending Provider Instructions: Mr. Koroma is a 69-year-old male with a complicated medical history including DMII with end organ damage, a L below the knee amputation, bilateral finger amputations, Chronic Kidney Disease - Stage 3, CAD, HFrEF due to ischemic cardiomyopathy, and urinary retention with recurrent UTIs, who presented to the ED on 11/11 for altered mental status found to be due to hypoglycemia. He also had acute blood loss anemia s/p transfusion of 1 unit pRBCs. Speech evaluation revealed aspiration with all oral intake. A palliative care consult was placed, and after careful discussion with patient and , ultimate decision was to move to comfort care measures. Mr. Koroma will return to [facility] on comfort care with comfort feedings. Below is a summary of his hospital course: Acute Metabolic Encephalopathy: (Resolved) - Head CT in ED ruled out acute hemorrhagic event. - Patient has decreased cognitive function at baseline due to underlying medical conditions - feels that he is back to his baseline. - Likely metabolic encephalopathy due to hypoglycemia and hypernatremia Hypoglycemia: - On arrival, patient with severe hypoglycemia (31) at 2 AM on 11/11. - s/p glucagon doses x 2 - Etiology unknown. Possible that patient had reduced PO intake vs possible misdosing of his insulin. Per , staff at [facility] administer insulin and state he has been taking food PO without n/v. - Hypoglycemia persisted for the first 24 hours of his hospital course and was being managed with q2h boluses of dextrose. - Today, 11/13, his blood glucose readings returned to the normal range with readings of 109 and 119 this morning. - HbA1c is 6.4. This demonstrates good glycemic control. - Discontinue all home insulin considering hypoglycemia and A1c level. Acute Hypernatremia: - Etiology: suspected malnutrition. - Sodium trending down. Was 150 on 11/12, now 149. Acute UTI: - Patient is on prophylactic cefuroxime at home for history of recurrent UTIs. - Patient was started on ertapenem 1 g QD on 11/10 in the outpatient setting per genital culture that grew Morganella morganii. - ertapenem course was to extend through 11/16. - Urine culture obtained 11/11 growing entercoccus Anemia: - Today Hgb is 8.0 up from 7.9 yesterday (11/13). - transfused with 1 unit in ED - Newby-related trauma, even in the setting of acute UTI, unlikely to cause this degree of bleeding. Suspect colon origin. - After discussion with patient and his it was decided that we would not precede with hemoccult +/- colonoscopy at this time. Anasarca: - CT scan demonstrated fluid overload. - likely from malnutrition. - Albumin low at 2. Chronic Kidney Disease stage 3: - Patient's baseline creatinine is generally fluctuates between 1.44-2.14. 1.77 on day of discharge Bilateral hydronephrosis: - Visualized on CT from 11/11. - This is a chronic condition that demonstrates no change from baseline. Complication of Newby Catheter: - Newby catheter repositioned as it was visualized in the urethra on CT scan. Scrotal Swelling: - Possible etiologies included generalized edema and trauma from Newby. - Given the presence of edema elsewhere and the discrete location of the swelling from the site of trauma, likely a systemic/general process. Wound: - patient has multiple wound sites on body - wound care consulted during hospital stay - culture obtained growing staph aureas; sensitives pending at time of discharge Difficult Swallowing: - Patient was observed coughing after receiving honey-thick liquids and appears to be having difficulty clearing secretions. - Speech evaluation ordered - demonstrated aspiration with all substances. - patient's has opted for comfort feedings Decreased Quality of Life in Setting of Multiple Health Conditions: - Palliative care consulted - after careful discussion with patient and , patient will pursue comfort care at this time Hyperlipidemia: - on admission patient was on atorvastatin 80mg, PO qAM Hypertension: - Blood pressure 95/60 Hematoma of neck: - Per patient patient has frequent falls. - He is not demonstrating clinical signs suggestive of expansion. Continue to monitor.. Hypothyroidism: - will d/c synthroid at this time Gout: - Stable, will discontinue allopurinol at this time. Pending Studies at Discharge: Yes Stand-Alone Forms: My [facility] Skilled Items Patient informed of condition?: Yes DNR: Yes Discharge Level of Care: Skilled Communicable Disease: No Discharge Prognosis: Deteriorating Lines: None Urinary Catheter: Yes Medications and DC Order Prescriptions: Discontinued levothyroxine 100 mcg Tablet 100 mcg PO QAM RF: 0 bisacodyl [Dulcolax (bisacodyl)] 10 mg Suppository 10 mg NM DIRECTED PRN (Reason: Constipation) RF: 0 finasteride 5 mg Tablet 5 mg PO QAM RF: 0 risperidone [Risperdal] 0.5 mg Tablet 0.25 mg PO BID RF: 0 Levemir U-100 Insulin 100 unit/mL Solution 15 unit SUBCUT QAM RF: 0 ferrous gluconate 324 mg (38 mg iron) tablet 324 mg PO BID RF: 0 acetaminophen 325 mg Tablet 650 mg PO Q6H PRN (Reason: Fever Or Pain) RF: 0 magnesium hydroxide [Milk of Magnesia] 400 mg/5 mL Suspension 30 ml PO DIRECTED PRN (Reason: Constipation) RF: 0 insulin aspart U-100 [Novolog U-100 Insulin aspart] 100 unit/mL Solution 1 sliding scale dose SUBCUT USEASDIRECTD PRN (Reason: Hyperglycemia) RF: 0 Fleet Enema 19-7 gram/118 mL Enema 118 ml NM DIRECTED PRN (Reason: Constipation) RF: 0 multivitamin with minerals [Multiple Vitamin-Minerals] Tablet 1 tab PO QAM RF: 0 polyethylene glycol 3350 [Miralax] 17 gram/dose Powder 17 g PO DAILY RF: 0 ertapenem 1 gram Recon Soln 1 g IM DAILY RF: 0 metoprolol tartrate 25 mg Tablet 25 mg PO Q12H RF: 0 Glucagon (HCl) Emergency Kit 1 mg Recon Soln 1 mg IM DIRECTED PRN (Reason: Hypoglycemia) RF: 0 Lidocaine Hcl 1% 1 vial IM DIRECTED RF: 0 allopurinol [Zyloprim] 300 mg tablet 300 mg PO QAM RF: 0 isosorbide mononitrate 30 mg tablet extended release 24 hr 15 mg PO QAM RF: 0 sertraline 100 mg tablet 100 mg PO QAM RF: 0 ascorbic acid (vitamin C) [Vitamin C] 500 mg Tablet 500 mg PO QAM RF: 0 aspirin 81 mg Tablet,Chewable 81 mg PO QAM RF: 0 atorvastatin 80 mg tablet 80 mg PO HS RF: 0 potassium chloride 10 mEq capsule, extended release 10 meq PO QAM RF: 0 melatonin 3 mg Tablet 3 mg PO HS PRN (Reason: Insomnia) RF: 0 tamsulosin 0.4 mg Capsule 0.4 mg PO QAM 30 Days Qty: 30 RF: 0 Discharge Orders: Discharge Order (Routine); Ordered 11/15/19 Ordered By: Carolin Hyman Admission Data Admit Date/Time: 11/12/19 19:01 Attending Provider: Kaylee Avendaño Admit Provider: Byron Medrano Primary Care Provider: Deonte Truong Other Providers: Byron Medrano ; Alex Worley ; Brittany Koehler ; Olaf Preston ; Deonte Truong Other Interventions: Discharge Summary Assessment (RN) Last Done: 11/15/19 13:30 DC Date/Time DO NOT enter until pt leaves facility: 11/15/19 15:24 Supervising Physician Co-Signing Physician Notes Resident Physician Supervision Note: I independently interviewed and examined the patient and verified the granados history and physical, reviewed labs and image studies, discussed the case with the resident Dr. Hyman and agree with the findings and care plan. Time spent in discharge 35 min Resident Activity Tracking Resident Involvement: Resident Care Provided Care Provided: Adult Hospital Medicine
--- NOTE | 2019-11-15 14:22 | Urology Consultation ---
Date of Consultation November 15, 2019 Assessment & Plan (1) Scrotal edema: 69 yo M with multiple comorbidities admitted for altered mental status, hypoglycemia, and suspected UTI. - Per nursing, patient is being discharged to [facility] on comfort measures - Scrotal swelling likely secondary to volume overload - Recommend supportive care with scrotal support - Maintain Salcedo, can be managed at [facility] Thank you for allowing us to participate in the acute care of Mr. Koroma. Please reconsult us with additional questions, concerns or changes in patient status. History of Present Illness Reason for Consultation: scrotal swelling, indwelling salcedo Attending Physician: Kaylee Avendaño MD History of Present Illness 69 yo M with multiple comorbidities including uncontrolled diabetes, hypertension, acute on chronic renal failure, cardiomyopathy, CAD and CHF admitted for hypoglycemia. Urology consult for scrotal swelling and indwelling salcedo. Pt known to our service, consulted during recent admission in October 2019 for obstructive uropathy and acute on chronic renal failure. Patient resides at [facility]. Presented to [facility] ED on 11/12/19 due to hypoglycemia and unresponsiveness. Admitted for altered mental state, anemia, hypoglycemia, and suspected acute UTI. Palliative care consulted. Chart review: Afebrile Cr - 1.77 WBC - 5.21 Hgb - 8.0 UA - 2+ Leuks, 10-30 WBCs, 5-10 epis, >30 RBCs, +nitrates, negative bacteria UC&S (11/11) - Enterococcus 40,000 cfu Imaging: CT abd/pelvis IMPRESSION 1. Volume overload with anasarca, trace pleural effusions with trace abdominal pelvic ascites. 2. Malpositioned Salcedo catheter with balloon inflated within the prostatic urethra. Repositioning is needed. 3. Moderate urinary bladder distention with bilateral hydroureteronephrosis. 4. Contrast in the renal collecting systems, ureters and urinary bladder, likely from contrast enhanced study 4 days prior. Findings are compatible with decreased renal function. 5. Splenomegaly. 6. Additional findings as above. Pt asleep, difficult to arouse. Responds to some questions with mumbling, but does not open eyes. Denies pain at this time. ROS unobtainable due to cognitive status. Allergies Allergy/AdvReac Type Severity Reaction Status Date / Time gemfibrozil Allergy Unknown Unknown Verified 11/12/19 18:08 Patient History Medical History Adjustment disorder with depressed mood (Chronic) Biventricular ICD (implantable cardioverter-defibrillator) in place (Chronic) CAD (coronary artery disease) (Chronic) "s/p stent to LAD in 04/2014" Chronic systolic CHF (congestive heart failure) (Chronic) On 09/07/15 13:04 Maren Reddy wrote "echo 10/08/14- LV cavity size moderately enlarged, mild concentric LVH, diffuse moderate LV hypokinesis with superimposed more severe hypokinesis/akinesis involving the mid and apical inferior wall, anterior septum, and LV apex. LV apex is akinetic. 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) Surgical History History of implantable cardioverter-defibrillator (ICD) placement (Chronic) Hx of BKA (Chronic) "left" S/P coronary artery stent placement (Chronic) "CLAUDINE to LAD in 04/2014" Family History Other Family history non-contributory Social History Preferred Language: Peruvian Communication Ability: Unable 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: No Beliefs That Will Affect Care: None marital status: Current Living Situation: [facility] Current Living Situation Comment: [facility] Other Information That Helps Us Care for You: No Feels Safe at Home: Yes Safety Concerns: Feels Safe At This Time Smoking Status: Never smoker Hx Alcohol Use: No Hx Substance Use: No Review of Systems Review of Systems: Unobtainable due to cognitive status Physical Exam Constitutional: + ill appearing (chronically ill-appearing), + obese, + altered mental status and comfortable; no acute distress Respiratory: no respiratory distress and no labored breathing Cardiovascular: Extremities: + edema (right lower extremity edema, L amputation ) Multiple fingers amputated Gastrointestinal (Abdomen): Inspection/Auscultation: abdomen normal to inspection; abdomen not distended Percussion/Palpation: abdomen soft; abdomen nontender and no guarding Skin: Scattered wounds Genitourinary: + edematous scrotum Salcedo catheter intact, patent, draining clear yellow urine at time of exam Results & Data Vital Signs (Past 12 Hours) Vital Signs Temp Pulse Pulse Resp BP Pulse Ox 11/15/19 13:30 36.8 C 70 76 20 95/60 L 92 11/15/19 07:45 36.8 C 76 20 95/60 L 92 PG Care Time/CCT Total # of Minutes Spent Total Time Spent with Patient: Total time spent is greater than 50% in coordination of care (as documented) at patient's floor/unit and/or counseling patient: Coding Level of Care Code 14269 Inpt Consult Level 3 Diagnoses Scrotal edema N50.89
== END 2019-11-15 15:24 | DRG 637 ==
LOC: ED 15:58 → SUATTDRO 19:01 → 2S 19:01 → 4W 11-14 09:18